=== PATIENT | male | born 1945 | race Caucasian/White ===

== ENCOUNTER 2017-06-23 09:46 | Inpatient (IN) | payer MEDICARE, MEDICAID ==
[~2017-06-23] VITALS: Ht 175.3 cm; Wt 77.1 kg
--- NOTE | 2017-06-23 09:50 | Emergency Room Report ---
History of Present Illness General Chief Complaint: Shortness of breath Source: EMS Present Illness HPI Patient is a 71-year-old male brought in by EMS after increased difficulty breathing. Patient prior history of schizophrenia as well as COPD. Patient was noted to have decreased oxygen saturation at his facility. The patient's POLST had no code status. Patient was noted to have moderate difficulty breathing. History is markedly limited by patient's mental status. Allergies: Coded Allergies: CHLORPROMAZINE (Verified Allergy, Unknown, 06/23/17) ERYTHROMYCIN BASE (Verified Allergy, Unknown, 06/23/17) Uncoded Allergies: TAPE (Allergy, Unknown, 06/23/17) Patient History Reviewed Nursing Documentation: PMH: Agreed, PSxH: Agreed Review of Systems All Other Systems: limited - by mental status Physical Exam Vital Signs Date Time Temp Pulse Resp B/P (MAP) Pulse Ox O2 Delivery O2 Flow Rate FiO2 06/23/17 09:39 109 22 100/53 97 Nasal Cannula 2.0 General Appearance: alert, moderate distress, Chronically Ill Eyes: bilateral eye PERRL Neck: limited range of motion Respiratory: accessory muscle use, rhonchi Cardiovascular #1: no edema, tachycardia Gastrointestinal: normal bowel sounds, soft, no mass Musculoskeletal: normal inspection, back normal Neurologic: alert, responsive Skin: normal inspection, normal color Procedures Critical Care Time Critical Care Time Patient had a critical medical condition which untreated could potentially result in life or limb threatening injury. Total critical care time excluding procedures approximately 45 minutes. Medical Decision Making Diagnostic Impression: Primary Impression: Acute respiratory failure Additional Impressions: Sepsis HCAP (healthcare-associated pneumonia) ER Course Patient presented for shortness of breath. Differential included but was not limited to anemia, pneumonia, pneumothorax, myocardial infarction, pericardial effusion, congestive heart failure, acidosis. Patient noted have prior history of chronic schizophrenia. The patient appears to have a respiratory illness at this time. The patient was noted to have chest x-ray read by radiology with the pacemaker cardiomegaly as well as vascular congestion. The patient started on BiPAP. ABG showed evidence of CO2 retention. Patient's oxygen was subsequently decreased. Patient was noted to have some crackles consistent with pneumonia. He was started on IV fluids and IV antibiotics. Blood cultures were obtained. Dr. Den Moreau was contacted for inpatient management Labs Test 06/23/17 10:10 06/23/17 10:50 06/23/17 11:05 White Blood Count 15.1 K/UL (4.8-10.8) Red Blood Count 2.92 M/UL (4.70-6.10) Hemoglobin 9.8 G/DL (14.2-18.0) Hematocrit 30.6 % (42.0-52.0) Mean Corpuscular Volume 105 FL (80-99) Mean Corpuscular Hemoglobin 33.6 PG (27.0-31.0) Mean Corpuscular Hemoglobin Concent 32.0 G/DL (32.0-36.0) Red Cell Distribution Width 13.5 % (11.6-14.8) Platelet Count 265 K/UL (150-450) Mean Platelet Volume 6.6 FL (6.5-10.1) Neutrophils (%) (Auto) 77.7 % (45.0-75.0) Lymphocytes (%) (Auto) 10.8 % (20.0-45.0) Monocytes (%) (Auto) 9.7 % (1.0-10.0) Eosinophils (%) (Auto) 0.9 % (0.0-3.0) Basophils (%) (Auto) 0.9 % (0.0-2.0) Sodium Level 144 mEQ/L (135-145) Potassium Level 4.4 mEQ/L (3.4-4.9) Chloride Level 102 mEQ/L (98-107) Carbon Dioxide Level 31 mEQ/L (20-30) Anion Gap 11 (5-15) Blood Urea Nitrogen 16 mg/dL (7-23) Creatinine 1.0 mg/dL (0.7-1.2) Estimat Glomerular Filtration Rate > 60 mL/min (>60) Glucose Level 130 mg/dL (74-106) Lactic Acid Level 0.90 mmol/L (0.66-2.22) Calcium Level 8.7 mg/dL (8.6-10.2) Total Bilirubin 0.3 mg/dL (0.0-1.2) Aspartate Amino Transf (AST/SGOT) 11 U/L (5-40) Alanine Aminotransferase (ALT/SGPT) 6 U/L (3-41) Alkaline Phosphatase 120 U/L (40-129) Total Creatine Kinase 33 U/L (38-174) Creatine Kinase MB 0.6 NG/ML (0.0-3.6) Creatine Kinase MB Relative Index 1.8 Troponin I 0.000 ng/mL (0.000-0.056) Pro-B-Type Natriuretic Peptide 1168 pg/mL (0-125) Total Protein 7.2 g/dL (6.6-8.7) Albumin 3.0 g/dL (3.5-5.2) Globulin 4.2 g/dL Albumin/Globulin Ratio 0.7 (1.0-2.7) Urine Color Yellow Urine Appearance Clear Urine pH 5 (4.5-8.0) Urine Specific [place] 1.020 (1.005-1.035) Urine Protein 2+ (NEGATIVE) Urine Glucose (UA) Negative (NEGATIVE) Urine Ketones Negative (NEGATIVE) Urine Occult Blood 1+ (NEGATIVE) Urine Nitrite Negative (NEGATIVE) Urine Bilirubin Negative (NEGATIVE) Urine Urobilinogen 4 MG/DL (0.0-1.0) Urine Leukocyte Esterase Negative (NEGATIVE) Urine RBC 2-4 /HPF (0 - 0) Urine WBC 0-2 /HPF (0 - 0) Urine Squamous Epithelial Cells Few /LPF (NONE/OCC) Urine Bacteria Few /HPF (NONE) Urine Granular Casts 0-2 /LPF (NONE) Arterial Blood pH 7.321 (7.350-7.450) Arterial Blood Partial Pressure CO2 60.3 mmHg (35.0-45.0) Arterial Blood Partial Pressure O2 131.4 mmHg (75.0-100.0) Arterial Blood HCO3 30.4 mmol/L (22.0-26.0) Arterial Blood Oxygen Saturation 97.9 % (92.0-98.0) Arterial Blood Base Excess 3.4 Anthony Test Positive EKG Diagnostic Results Rate: normal Rhythm: NSR ST Segments: no acute changes Last Vital Signs Date Time Temp Pulse Resp B/P (MAP) Pulse Ox O2 Delivery O2 Flow Rate FiO2 06/23/17 09:39 109 22 100/53 97 Nasal Cannula 2.0 Status: unchanged Disposition: ADMITTED INPATIENT Condition: Guero Viramontes Jun 23, 2017 09:50
[2017-06-23] MEDS ORDERED: Albuterol/Ipratropium 3ml neb HHN ONE (10:00)
[2017-06-23] MEDS ORDERED: Ampicillin/Sulbactam Sod 3 GM in NS 110 ML IV SCH (10:00)
[2017-06-23] MEDS ORDERED: Vancomycin 1.5gm/D5W 250ml 250 ML IVPB ONE (10:00)
[2017-06-23] MEDS ORDERED: ATIVAN1 MG ORAL (10:06)
[2017-06-23] MEDS ORDERED: DUONEB 0.5-3(2.53 ML HHN (10:06)
[2017-06-23] MEDS ORDERED: GERI-LANTA LIQ355 ML PO (10:06)
[2017-06-23] MEDS ORDERED: MILK OF MA400 MG/51 ORAL (10:06)
[2017-06-23] MEDS ORDERED: MULTIVITAMINS1 EAC2 ORAL (10:06)
[2017-06-23] MEDS ORDERED: FLEET ENEMA133 ML RECTAL (10:06)
[2017-06-23] MEDS ORDERED: LOVENOX10 M4 SUBQ (10:06)
[2017-06-23] MEDS ORDERED: ACETYLCYST200 MG/1 M HHN (10:06)
[2017-06-23] MEDS ORDERED: LACTULOSE20 GM/301 ORAL (10:06)
[2017-06-23] MEDS ORDERED: LEVETIRACETAM500 MG ORAL (10:06)
[2017-06-23] MEDS ORDERED: DEPAKENE250 MG/5 M PO (10:06)
[2017-06-23] MEDS ORDERED: COLACE100 MG ORAL (10:06)
[2017-06-23] MEDS ORDERED: MIDODRINE HCL5 MG ORAL (10:06)
[2017-06-23] MEDS ORDERED: DULCOLAX10 MG RC (10:06)
[2017-06-23 10:10] VITALS: BP 103/39
[2017-06-23] MEDS ORDERED: TEGRETOL200 MG PO (10:13)
[2017-06-23] MEDS ORDERED: QUETIAPINE FUM200 MG ORAL (10:13)
[2017-06-23] MEDS ORDERED: ZOFRAN 4 MG4 MG/2 ML IV (10:13)
[2017-06-23] MEDS ORDERED: ZYPREXA5 MG ORAL (10:13)
[2017-06-23] MEDS ORDERED: VITAMIN C500 M1 ORAL (10:13)
[2017-06-23] MEDS ORDERED: PROTONIX40 MG ORAL (10:13)
[2017-06-23] MEDS ORDERED: TYLENOL EXTRA500 MG ORAL (10:13)
[2017-06-23] MEDS ORDERED: Unasyn 3gm Inj ONE (10:16)
[2017-06-23 10:34] LABS: BASOPHILS % (AUTO) 0.9 % (0.0-2.0); EOSINOPHILS % (AUTO) 0.9 % (0.0-3.0); HEMATOCRIT 30.6 % (42.0-52.0); HEMOGLOBIN 9.8 G/DL (14.2-18.0); LYMPHOCYTES % (AUTO) 10.8 % (20.0-45.0); MEAN CORPUSCULAR VOLUME 105 FL (80-99); MONOCYTES % (AUTO) 9.7 % (1.0-10.0); NEUTROPHILS % (AUTO) 77.7 % (45.0-75.0); PLATELET COUNT 265 K/UL (150-450); RED BLOOD COUNT 2.92 M/UL (4.70-6.10); RED CELL DISTRIBUTION WIDTH 13.5 % (11.6-14.8); WHITE BLOOD COUNT 15.1 K/UL (4.8-10.8)
[2017-06-23 10:40] LABS: ALANINE AMINOTRANSFERASE 6 U/L (3-41); ALBUMIN/GLOBULIN RATIO 0.7 (1.0-2.7); ALKALINE PHOSPHATASE 120 U/L (40-129); ANION GAP 11 (5-15); ASPARTATE AMINO TRANSFERASE 11 U/L (5-40); BILIRUBIN,TOTAL 0.3 mg/dL (0.0-1.2); BLOOD UREA NITROGEN 16 mg/dL (7-23); CARBON DIOXIDE 31 mEQ/L (20-30); CHLORIDE 102 mEQ/L (98-107); CREATINE KINASE 33 U/L (38-174); POTASSIUM 4.4 mEQ/L (3.4-4.9); SODIUM 144 mEQ/L (135-145)
--- NOTE | 2017-06-23 10:44 | Diagnostic Imaging Report ---
Indication: Shortness of breath Technique: XRAY CHEST 1 V Comparison: None Findings: Cardiac silhouette is prominent. There is a left chest pacemaker. There is central pulmonary vascular congestion. Mild interstitial probable edema is noted. There is atelectasis in the lung bases. IVC filter is present. Degenerative changes of the spine are seen. Impression: Cardiomegaly with central pulmonary vascular congestion and mild interstitial probable edema. Bilateral lung base atelectasis. Clinical correlation/followup recommended. Apparent retrocardiac lucency. Differential considerations would include a hiatal hernia, scarring or cystic/bullous changes in the left base. Further evaluation/followup recommended.
[2017-06-23 11:03] LABS: CALCIUM 8.7 mg/dL (8.6-10.2)
[2017-06-23 11:07] LABS: CKMB 0.6 NG/ML (0.0-3.6)
[2017-06-23 11:19] LABS: APPEARANCE,URINE CLEAR; BILIRUBIN, URINE NEGATIVE (NEGATIVE); GLUCOSE, URINE (UA) NEGATIVE (NEGATIVE); KETONES,URINE NEGATIVE (NEGATIVE); LEUKOCYTE ESTERASE ,URINE NEGATIVE (NEGATIVE); NITRITE,URINE NEGATIVE (NEGATIVE); PH,URINE 5 (4.5-8.0); PROTEIN,URINE 2+ (NEGATIVE); UROBILINOGEN,URINE 4 MG/DL (0.0-1.0)
[2017-06-23 11:40] LABS: COLOR,URINE YELLOW
[2017-06-23 12:43] VITALS: BP 122/69
--- NOTE | 2017-06-23 13:04 | Infectious Diseases Prog Note ---
Assessment/Plan Problems: (1) HCAP (healthcare-associated pneumonia) Assessment & Plan: will start vancomycin, and continue zosyn, send sputum culture and monitor CXR (2) Acute respiratory failure Assessment & Plan: due to pneumonia, continu vancomycin and zosyn monitor ABG, and CXR, taper steroids (3) UTI (urinary tract infection) Assessment & Plan: will send urine culture, and continue zosyn empirically (4) Sepsis Assessment & Plan: due to the above, continue wide spectrum antibiotics pending culture results Subjective Allergies: Coded Allergies: CHLORPROMAZINE (Verified Allergy, Unknown, 06/23/17) ERYTHROMYCIN BASE (Verified Allergy, Unknown, 06/23/17) Uncoded Allergies: TAPE (Allergy, Unknown, 06/23/17) Objective Vital Signs Last 24 Hour Vital Signs Date Time Temp Pulse Resp B/P (MAP) Pulse Ox O2 Delivery O2 Flow Rate FiO2 06/23/17 12:43 97.8 92 22 122/69 93 Bi-pap 45 06/23/17 12:40 89 36 91 Facial 50 06/23/17 11:41 2.0 30 06/23/17 10:25 93 28 100 Bi-pap 50 06/23/17 10:15 97 28 100 Facial 50 06/23/17 10:15 50 06/23/17 10:15 98 28 93 Bi-pap 50 06/23/17 10:15 98 28 Bi-pap 50 06/23/17 10:10 94 26 Bi-pap 50 06/23/17 10:10 50 06/23/17 10:10 97.7 93 22 103/39 100 Bi-pap 50 06/23/17 09:39 109 22 100/53 97 Nasal Cannula 2.0 Height (Feet): 5 Height (Inches): 11.00 Weight (Pounds): 180 Laboratory Tests Test 06/23/17 10:10 06/23/17 10:50 06/23/17 11:05 White Blood Count 15.1 K/UL (4.8-10.8) H Red Blood Count 2.92 M/UL (4.70-6.10) L Hemoglobin 9.8 G/DL (14.2-18.0) L Hematocrit 30.6 % (42.0-52.0) L Mean Corpuscular Volume 105 FL (80-99) H Mean Corpuscular Hemoglobin 33.6 PG (27.0-31.0) H Mean Corpuscular Hemoglobin Concent 32.0 G/DL (32.0-36.0) Red Cell Distribution Width 13.5 % (11.6-14.8) Platelet Count 265 K/UL (150-450) Mean Platelet Volume 6.6 FL (6.5-10.1) Neutrophils (%) (Auto) 77.7 % (45.0-75.0) H Lymphocytes (%) (Auto) 10.8 % (20.0-45.0) L Monocytes (%) (Auto) 9.7 % (1.0-10.0) Eosinophils (%) (Auto) 0.9 % (0.0-3.0) Basophils (%) (Auto) 0.9 % (0.0-2.0) Sodium Level 144 mEQ/L (135-145) Potassium Level 4.4 mEQ/L (3.4-4.9) Chloride Level 102 mEQ/L (98-107) Carbon Dioxide Level 31 mEQ/L (20-30) H Anion Gap 11 (5-15) Blood Urea Nitrogen 16 mg/dL (7-23) Creatinine 1.0 mg/dL (0.7-1.2) Estimat Glomerular Filtration Rate > 60 mL/min (>60) Glucose Level 130 mg/dL (74-106) H Lactic Acid Level 0.90 mmol/L (0.66-2.22) Calcium Level 8.7 mg/dL (8.6-10.2) Total Bilirubin 0.3 mg/dL (0.0-1.2) Aspartate Amino Transf (AST/SGOT) 11 U/L (5-40) Alanine Aminotransferase (ALT/SGPT) 6 U/L (3-41) Alkaline Phosphatase 120 U/L (40-129) Total Creatine Kinase 33 U/L (38-174) L Creatine Kinase MB 0.6 NG/ML (0.0-3.6) Creatine Kinase MB Relative Index 1.8 Troponin I 0.000 ng/mL (0.000-0.056) Pro-B-Type Natriuretic Peptide 1168 pg/mL (0-125) H Total Protein 7.2 g/dL (6.6-8.7) Albumin 3.0 g/dL (3.5-5.2) L Globulin 4.2 g/dL Albumin/Globulin Ratio 0.7 (1.0-2.7) L Urine Color Yellow Urine Appearance Clear Urine pH 5 (4.5-8.0) Urine Specific [place] 1.020 (1.005-1.035) Urine Protein 2+ (NEGATIVE) H Urine Glucose (UA) Negative (NEGATIVE) Urine Ketones Negative (NEGATIVE) Urine Occult Blood 1+ (NEGATIVE) H Urine Nitrite Negative (NEGATIVE) Urine Bilirubin Negative (NEGATIVE) Urine Urobilinogen 4 MG/DL (0.0-1.0) H Urine Leukocyte Esterase Negative (NEGATIVE) Urine RBC 2-4 /HPF (0 - 0) H Urine WBC 0-2 /HPF (0 - 0) Urine Squamous Epithelial Cells Few /LPF (NONE/OCC) Urine Bacteria Few /HPF (NONE) Urine Granular Casts 0-2 /LPF (NONE) H Arterial Blood pH 7.321 (7.350-7.450) Arterial Blood Partial Pressure CO2 60.3 mmHg (35.0-45.0) *H Arterial Blood Partial Pressure O2 131.4 mmHg (75.0-100.0) H Arterial Blood HCO3 30.4 mmol/L (22.0-26.0) H Arterial Blood Oxygen Saturation 97.9 % (92.0-98.0) Arterial Blood Base Excess 3.4 Anthony Test Positive Current Medications Medications (Trade) Dose Ordered Sig/Karen Route PRN Reason Start Time Stop Time Status Last Admin Dose Admin Albuterol/ Ipratropium (DuoNeb 0.5-3(2.5)mg/3ml) 3 ml EVERY 4 HOURS PRN HHN dyspnea 06/23/17 12:30 06/28/17 12:29 UNV Ampicillin Sodium/ Sulbactam Sodium 3 gm/Sodium Chloride 110 ml @ 220 mls/hr Q6H IV 06/23/17 10:00 06/24/17 09:59 06/23/17 10:51 Carbamazepine (TEGretol) 200 mg FOUR TIMES A DAY ORAL 06/23/17 13:00 07/23/17 12:59 UNV Dextrose (Dextrose 50%) STAT PRN IV Hypoglycemia 06/23/17 12:30 07/23/17 12:29 UNV Docusate Sodium (Colace) 100 mg DAILY ORAL 06/24/17 09:00 118/17 08:59 UNV Heparin Sodium (Porcine) (Heparin 5000 units/ml) 5,000 units EVERY 12 HOURS SUBQ 06/23/17 21:00 07/23/17 20:59 UNV Ketorolac Tromethamine (Toradol 30mg) 30 mg EVERY 8 HOURS PRN IV moderate pain 4-6 06/23/17 12:30 06/28/17 12:29 UNV Levetiracetam (Keppra) 500 mg TWICE A DAY ORAL 06/23/17 18:00 07/23/17 17:59 UNV Lorazepam (Ativan 2mg/ml 1ml) 0.5 mg Q4H PRN IV For Anxiety 06/23/17 12:30 06/30/17 12:29 UNV Methylprednisolone Sodium Succinate (Solu-MEDROL) 60 mg EVERY 6 HOURS IV 06/23/17 18:00 07/23/17 17:59 UNV Morphine Sulfate (Morphine Sulfate) 2 mg EVERY 4 HOURS PRN IVP severe pain 7-10 06/23/17 12:30 06/30/17 12:29 UNV Nitroglycerin (Ntg) 0.4 mg Q5M X 3 DOSES PRN SL Prn Chest Pain 06/23/17 12:30 07/23/17 12:29 UNV Olanzapine (ZyPREXA) 15 mg DAILY ORAL 06/24/17 09:00 07/24/17 08:59 UNV Ondansetron HCl (Zofran) 4 mg Q6H PRN IVP Nausea & Vomiting 06/23/17 12:30 07/23/17 12:29 UNV Piperacillin Sod/ Tazobactam Sod 2.25 gm/Dextrose 55 ml @ 110 mls/hr EVERY 8 HOURS IV 06/23/17 14:00 06/28/17 13:59 UNV Quetiapine Fumarate (SEROquel) 200 mg DAILY ORAL 06/24/17 09:00 07/24/17 08:59 UNV Temazepam (Restoril) 15 mg HSPRN PRN ORAL Insomnia 06/23/17 12:30 06/30/17 12:29 UNV Theophylline (Dane-Dur) 100 mg EVERY 12 HOURS ORAL 06/23/17 21:00 07/23/17 20:59 UNV Dafne Orourke M.D. Jun 23, 2017 13:04
[2017-06-23] MEDS ORDERED: LORazepam Inj 2mg/ml 1ml IV PRN (13:30)
[2017-06-23] MEDS ORDERED: Nitroglycerin Subl 0.4mg tab SL PRN (13:30)
[2017-06-23] MEDS ORDERED: Ketorolac 30mg Inj IV PRN (13:30)
[2017-06-23] MEDS ORDERED: Morphine Sulfate 2mg/ml Inj IVP PRN (13:30)
[2017-06-23] MEDS ORDERED: Albuterol/Ipratropium 3ml neb HHN PRN (13:30)
[2017-06-23] MEDS ORDERED: Piperacillin/Tazobactam 2.25 GM in D5W 55 ML IV SCH (14:00)
[2017-06-23] MEDS: carBAMazepine 200mg tab ORAL SCH ×3 (14:47→21:35)
[2017-06-23] MEDS: Zoysn 3.37gm in D5W 110ml IVPB SCH ×2 (15:11→23:35)
[2017-06-23 16:00] VITALS: BP 106/59
--- NOTE | 2017-06-23 16:43 | Cardiology Progress Note ---
Assessment/Plan Assessment/Plan The patient is seen and examined, full consult note will be dictated. Objective Last 24 Hour Vital Signs Date Time Temp Pulse Resp B/P (MAP) Pulse Ox O2 Delivery O2 Flow Rate FiO2 06/23/17 14:50 84 22 98 Facial 50 06/23/17 13:07 90 20 106/46 96 Bi-pap 30 06/23/17 12:43 97.8 92 22 122/69 93 Bi-pap 45 06/23/17 12:40 89 36 91 Facial 50 06/23/17 12:30 50 06/23/17 11:41 2.0 30 06/23/17 10:25 93 28 100 Bi-pap 50 06/23/17 10:15 97 28 100 Facial 50 06/23/17 10:15 50 06/23/17 10:15 98 28 93 Bi-pap 50 06/23/17 10:15 98 28 Bi-pap 50 06/23/17 10:10 94 26 Bi-pap 50 06/23/17 10:10 50 06/23/17 10:10 97.7 93 22 103/39 100 Bi-pap 50 06/23/17 09:39 109 22 100/53 97 Nasal Cannula 2.0 Intake and Output 06/23/17 06/24/17 19:00 07:00 Intake Total 1110 ml Balance 1110 ml Intake IV Total 1110 ml Laboratory Tests Test 06/23/17 10:10 06/23/17 10:50 06/23/17 11:05 White Blood Count 15.1 K/UL (4.8-10.8) H Red Blood Count 2.92 M/UL (4.70-6.10) L Hemoglobin 9.8 G/DL (14.2-18.0) L Hematocrit 30.6 % (42.0-52.0) L Mean Corpuscular Volume 105 FL (80-99) H Mean Corpuscular Hemoglobin 33.6 PG (27.0-31.0) H Mean Corpuscular Hemoglobin Concent 32.0 G/DL (32.0-36.0) Red Cell Distribution Width 13.5 % (11.6-14.8) Platelet Count 265 K/UL (150-450) Mean Platelet Volume 6.6 FL (6.5-10.1) Neutrophils (%) (Auto) 77.7 % (45.0-75.0) H Lymphocytes (%) (Auto) 10.8 % (20.0-45.0) L Monocytes (%) (Auto) 9.7 % (1.0-10.0) Eosinophils (%) (Auto) 0.9 % (0.0-3.0) Basophils (%) (Auto) 0.9 % (0.0-2.0) Sodium Level 144 mEQ/L (135-145) Potassium Level 4.4 mEQ/L (3.4-4.9) Chloride Level 102 mEQ/L (98-107) Carbon Dioxide Level 31 mEQ/L (20-30) H Anion Gap 11 (5-15) Blood Urea Nitrogen 16 mg/dL (7-23) Creatinine 1.0 mg/dL (0.7-1.2) Estimat Glomerular Filtration Rate > 60 mL/min (>60) Glucose Level 130 mg/dL (74-106) H Lactic Acid Level 0.90 mmol/L (0.66-2.22) Calcium Level 8.7 mg/dL (8.6-10.2) Total Bilirubin 0.3 mg/dL (0.0-1.2) Aspartate Amino Transf (AST/SGOT) 11 U/L (5-40) Alanine Aminotransferase (ALT/SGPT) 6 U/L (3-41) Alkaline Phosphatase 120 U/L (40-129) Total Creatine Kinase 33 U/L (38-174) L Creatine Kinase MB 0.6 NG/ML (0.0-3.6) Creatine Kinase MB Relative Index 1.8 Troponin I 0.000 ng/mL (0.000-0.056) Pro-B-Type Natriuretic Peptide 1168 pg/mL (0-125) H Total Protein 7.2 g/dL (6.6-8.7) Albumin 3.0 g/dL (3.5-5.2) L Globulin 4.2 g/dL Albumin/Globulin Ratio 0.7 (1.0-2.7) L Urine Color Yellow Urine Appearance Clear Urine pH 5 (4.5-8.0) Urine Specific [place] 1.020 (1.005-1.035) Urine Protein 2+ (NEGATIVE) H Urine Glucose (UA) Negative (NEGATIVE) Urine Ketones Negative (NEGATIVE) Urine Occult Blood 1+ (NEGATIVE) H Urine Nitrite Negative (NEGATIVE) Urine Bilirubin Negative (NEGATIVE) Urine Urobilinogen 4 MG/DL (0.0-1.0) H Urine Leukocyte Esterase Negative (NEGATIVE) Urine RBC 2-4 /HPF (0 - 0) H Urine WBC 0-2 /HPF (0 - 0) Urine Squamous Epithelial Cells Few /LPF (NONE/OCC) Urine Bacteria Few /HPF (NONE) Urine Granular Casts 0-2 /LPF (NONE) H Arterial Blood pH 7.321 (7.350-7.450) Arterial Blood Partial Pressure CO2 60.3 mmHg (35.0-45.0) *H Arterial Blood Partial Pressure O2 131.4 mmHg (75.0-100.0) H Arterial Blood HCO3 30.4 mmol/L (22.0-26.0) H Arterial Blood Oxygen Saturation 97.9 % (92.0-98.0) Arterial Blood Base Excess 3.4 Anthony Test Positive CALLUM BARON Jun 23, 2017 16:43
[2017-06-23] MEDS: Solu-MEDROL 125mg Inj IV SCH (17:43)
[2017-06-23 20:00] VITALS: BP 104/59
[2017-06-23] MEDS: Heparin 5000 units/ml inj SUBQ SCH (21:00)
[2017-06-23] MEDS: Vancomycin 1gm in D5W 275ml IVPB SCH (21:34)
[2017-06-23] MEDS: Theophylline ER 100mg ORAL SCH (21:35)
[2017-06-24 00:44] VITALS: BP 101/55
[2017-06-24] MEDS: Solu-MEDROL 125mg Inj IV SCH ×5 (01:05→23:33)
--- NOTE | 2017-06-24 03:39 | Consultation ---
DATE OF CONSULTATION: 06/23/2017 INFECTIOUS DISEASE CONSULTATION CONSULTING PHYSICIAN: Dafne Orourke M.D. REQUESTING PHYSICIAN: Den Moreau M.D. REASON FOR CONSULTATION: Sepsis, pneumonia, and urinary tract infection, recommendation for antibiotics treatment. HISTORY OF PRESENT ILLNESS: The patient is a 71-year-old male with past medical history of chronic obstructive pulmonary disease and schizophrenia, was brought in from [facility] facility for acute shortness of breath and low oxygen saturation. The patient was found to have difficulty breathing at the facility where he lives. He was sent to the emergency room at [facility] for further evaluation. The patient was found to be tachycardic with significant leukocytosis and fever and he looks ill. The patient's white count was significantly elevated suspicious for sepsis. Chest x-ray showed evidence of basilar pneumonia, so he was admitted to the hospital and started on IV antibiotics and I was consulted by the primary provider for antibiotics choice and further management. As of note, the patient is a poor historian, cannot provide any history. History was mainly obtained from the medical record. PAST MEDICAL HISTORY: Significant for chronic obstructive pulmonary disease and schizophrenia. PAST SURGICAL HISTORY: Negative. ALLERGIES: He is allergic to chlorpromazine and erythromycin base. MEDICATIONS: He received Unasyn in the emergency room and later Zosyn by the admitting physician. For the rest of his medications, please refer to MAR. SOCIAL HISTORY: He is a [facility] resident. No recent drugs, tobacco, or alcohol. FAMILY HISTORY: Unable to obtain. PHYSICAL EXAMINATION: VITAL SIGNS: Temperature 97.8, pulse 92, respirations 22, blood pressure 122/69, and saturation 93% on BiPAP with FiO2 of 45. GENERAL: A middle-aged male, cachectic, and ill appearing, on BiPAP in bed, not in acute distress. HEENT: Normocephalic and atraumatic. Pupils are reactive to light. Moist oral mucosa. No exudate. NECK: Supple. No lymphadenopathy. CARDIOVASCULAR: Regular rate and rhythm. No murmur. LUNGS: Diminished breathing sound on the bases with crackles. Poor air entry. ABDOMEN: Soft, nontender, and nondistended. Positive bowel sounds. No hepatosplenomegaly. No ascites. EXTREMITIES: No edema or cyanosis. SKIN: No rash. No hives. LABORATORY AND DIAGNOSTIC DATA: Labs showed white count of 15.1, hemoglobin 9.8. BUN 16, creatinine 1. Urinalysis showed negative leukocyte esterase, WBC 0 to 2, and granular casts. ABG showed CO2 of 60 with pH of 7.32. Imaging: Chest x-ray showed cardiomegaly with central pulmonary vascular congestion and mild interstitial edema. Bilateral lung base atelectasis. ASSESSMENT AND RECOMMENDATION: 1. Healthcare-acquired pneumonia. We will start the patient on Vancomycin. Continue Zosyn and send sputum culture and monitor chest x-ray. 2. Acute respiratory failure due to pneumonia. Continue vancomycin and Zosyn. Monitor ABG and chest x-ray. Taper steroids. 3. Urinary tract infection. We will send urine culture and continue Zosyn empirically. 4. Sepsis due to the above. Continue wide-spectrum antibiotics pending culture results. Thank you for the consult. Infectious Disease will continue to follow. Dafne Orourke M.D. DR: ADRIANNA JOB#: [id number] CC:
--- NOTE | 2017-06-24 03:39 | Consultation ---
DATE OF CONSULTATION: 06/23/2017 INFECTIOUS DISEASE CONSULTATION CONSULTING PHYSICIAN: Dafne Orourke M.D. REQUESTING PHYSICIAN: Den Moreau M.D. REASON FOR CONSULTATION: Sepsis, pneumonia, and urinary tract infection, recommendation for antibiotics treatment. HISTORY OF PRESENT ILLNESS: The patient is a 71-year-old male with past medical history of chronic obstructive pulmonary disease and schizophrenia, [facility]ness of breath and low oxygen saturation. The patient was found to have difficulty breathing at the facility where he lives. He was sent to the emergency room at [facility] for further evaluation. The patient was found to be tachycardic with significant leukocytosis and fever and he looks ill. The patient's white count was significantly elevated suspicious for sepsis. Chest x-ray showed evidence of basilar pneumonia, so he was admitted to the hospital and started on IV antibiotics and I was consulted by the primary provider for antibiotics choice and further management. As of note, the patient is a poor historian, cannot provide any history. History was mainly obtained from the medical record. PAST MEDICAL HISTORY: Significant for chronic obstructive pulmonary disease and schizophrenia. PAST SURGICAL HISTORY: Negative. ALLERGIES: He is allergic to chlorpromazine and erythromycin base. MEDICATIONS: He received Unasyn in the emergency room and later Zosyn by the admitting physician. For the rest of his medications, please refer to MAR. SOCIAL HISTORY: He is a [facility] resident. No recent drugs, tobacco, or alcohol. FAMILY HISTORY: Unable to obtain. PHYSICAL EXAMINATION: VITAL SIGNS: Temperature 97.8, pulse 92, respirations 22, blood pressure 122/69, and saturation 93% on BiPAP with FiO2 of 45. GENERAL: A middle-aged male, cachectic, and ill appearing, on BiPAP in bed, not in acute distress. HEENT: Normocephalic and atraumatic. Pupils are reactive to light. Moist oral mucosa. No exudate. NECK: Supple. No lymphadenopathy. CARDIOVASCULAR: Regular rate and rhythm. No murmur. LUNGS: Diminished breathing sound on the bases with crackles. Poor air entry. ABDOMEN: Soft, nontender, and nondistended. Positive bowel sounds. No hepatosplenomegaly. No ascites. EXTREMITIES: No edema or cyanosis. SKIN: No rash. No hives. LABORATORY AND DIAGNOSTIC DATA: Labs showed white count of 15.1, hemoglobin 9.8. BUN 16, creatinine 1. Urinalysis showed negative leukocyte esterase, WBC 0 to 2, and granular casts. ABG showed CO2 of 60 with pH of 7.32. Imaging: Chest x-ray showed cardiomegaly with central pulmonary vascular congestion and mild interstitial edema. Bilateral lung base atelectasis. ASSESSMENT AND RECOMMENDATION: 1. Healthcare-acquired pneumonia. We will start the patient on Vancomycin. Continue Zosyn and send sputum culture and monitor chest x-ray. 2. Acute respiratory failure due to pneumonia. Continue vancomycin and Zosyn. Monitor ABG and chest x-ray. Taper steroids. 3. Urinary tract infection. We will send urine culture and continue Zosyn empirically. 4. Sepsis due to the above. Continue wide-spectrum antibiotics pending culture results. Thank you for the consult. Infectious Disease will continue to follow. Dafne Orourke M.D. DR: ADRIANNA JOB#: [id number] CC:
[2017-06-24 04:00] VITALS: BP 107/66
[2017-06-24] MEDS: Zoysn 3.37gm in D5W 110ml IVPB SCH ×3 (05:07→21:49)
--- NOTE | 2017-06-24 06:30 | Consultation ---
DATE OF CONSULTATION: 06/23/2017 ADDENDUM REFERRING PHYSICIAN: Den Moreau M.D. REASON FOR CONSULTATION: Management of tachycardia. ASSESSMENT AND PLAN: 1. Sinus tachycardia, most likely secondary to sepsis as the patient is showing evidence of leukocytosis. Chest x-ray is also significant for possible bilateral pneumonia. A 2D echocardiography does not show any echocardiographic signs of heart failure. He however continue with low-dose diuretics. Further diagnostic and therapeutic decision will be based on the course of the current illness in the next few days. 2. Hypotension, most likely septic shock. The patient requires hemodynamic stability with hydration. Possible pressor if there are signs of volume overload. 3. History of heart disease. The nature of the detail of the cardiac illness in the past is not clear at this point. We will review 2D echocardiography in this patient. Preliminary echocardiography has shown normal LV systolic function with no evidence of wall motion abnormalities. I would like to thank, Dr. Moreau, for the courtesy of this consultation. David Menjivar M.D. DR: Chema JOB#: [id number] CC:
[2017-06-24 08:00] VITALS: BP 102/56
--- NOTE | 2017-06-24 08:25 | Cardiology Report ---
APPROVED REPORT EXAM: Two-dimensional and M-mode echocardiogram with Doppler and color Doppler. INDICATION Left ventricular function M-Mode DIMENSIONS IVSd0.9 (0.7-1.1cm)Left Atrium (MM)3.7 (1.6-4.0cm) LVDd4.4 (3.5-5.6cm)Aortic Root3.0 (2.0-3.7cm) PWd0.8 (0.7-1.1cm)Aortic Cusp Exc.1.6 (1.5-2.0cm) LVDs2.9 (2.5-4.0cm) PWs1.0 cm Technically limited and difficult study due to poor acoustical windows.Lack of apical windows. Normal left ventricular chamber size, systolic function and wall motion. Left ventricular ejection fraction estimated to be 60-65%. No evidence of left ventricular hypertrophy. No evidence of pericardial or pleural effusion. Focal aortic valve sclerosis with adequate cusp excursion. Normal mitral valve leaflets with normal excursion. Normal mitral annulus and aortic root. Pulmonic valve not visualized. Normal tricuspid valve structure. IVC is normal in size and collapsible with respiration. A color flow and spectral Doppler study was performed and revealed: No aortic regurgitation. No mitral regurgitation. Mild tricuspid regurgitation. Tricuspid systolic velocities suggests peak right ventricular systolic pressure of 33mmHg
[2017-06-24] MEDS ORDERED: Docusate 100mg cap ORAL SCH (09:00)
--- NOTE | 2017-06-24 09:03 | Consultation ---
DATE OF CONSULTATION: 06/23/2017 NOTE: Incomplete Dictation Consultation Report CONSULTING PHYSICIAN: David Menjivar M.D. REFERRING PHYSICIAN: Den Moreau D.O. REASON FOR CONSULTATION: Management of tachycardia. HISTORY OF PRESENT ILLNESS: The patient is a very unfortunate 71-year-old gentleman, who presents to the hospital with moderate difficulty breathing as well as decreased oxygen saturation, which occurred in the facility earlier today. The patient was brought in by EMS to [facility] [place]. Upon initial evaluation, he was found to be hypotensive with blood pressure of 100/53 mmHg. He was also tachycardic with heart rate of 109. The patient was admitted to [facility] for further evaluation and assessment of shortness of breath. Cardiology consultation was made at request of Dr. Moreau for evaluation and management of this condition. The patient is a very poor historian due to underlying schizophrenia and dementia. He is not verbally communicating at this time. PAST MEDICAL HISTORY: 1. Schizophrenia. 2. History of chronic obstructive pulmonary disease. 3. History of seizures. 4. History of cellulitis. 5. History of anemia. 6. History of chronic kidney disease. 7. History of bipolar disorder. 8. History of cardiac disease. PAST SURGICAL HISTORY: None. MEDICATIONS: List of medications, 1. Acetaminophen 500 mg q.6 hours for mild pain and temperature 100.5 degrees Fahrenheit. 2. Acetylcysteine 200 mg q.6 hours p.r.n. shortness of breath. 3. Vitamin C 500 mg daily. 4. Dulcolax 10 mg rectal p.r.n. x1 dose p.r.n. constipation. 5. Tegretol 200 mg four times daily. 6. Colace 100 mg p.o. daily. 7. Lovenox 40 mg subcutaneous daily. 8. DuoNeb 3 mL HHN q.4 hours as needed for shortness of breath. 9. Lactulose 30 mL q.6 hours. 10. Levetiracetam 500 mg twice daily. 11. Ativan 1 mg p.o. q.6 hours p.r.n. anxiety. 12. Shirley-Lanta liquid 355 mL p.o. daily. 13. Milk of magnesia 30 mL p.o. daily. 14. ProAmatine 5 mg p.o. twice daily. 15. Multivitamin one tablet daily. 16. Fleet Enema 133 mL rectal daily p.r.n. constipation. 17. Zyprexa 15 mg p.o. daily. 18. Zofran 4 mg IV q.6 hours p.r.n. nausea and vomiting. 19. Protonix 40 mg p.o. daily. 20. Seroquel 200 mg p.o. daily. 21. Valproate sodium 250 mg twice daily. SOCIAL HISTORY: Unknown if the patient ever smoked. The patient has not smoked in the past 12 months. There is no history of alcohol or illicit drug use. REVIEW OF SYSTEMS: A 12-system review cannot be done as the patient is not verbally communicating at this time. PHYSICAL EXAMINATION: VITAL SIGNS: Blood pressure 100/53 mmHg, pulse of 109, respirations 22, and O2 saturation 97% on 4 L nasal cannula. GENERAL: The patient is a chronically ill 71-year-old gentleman, in moderate distress, currently on BiPAP mask. HEENT: Atraumatic and normocephalic. ENT, pupils are equal, round, and reactive to light and accommodation. Pale conjunctiva. NECK: JVP cannot be assessed. No carotid bruit. Carotid upstrokes 2+ bilaterally. LUNGS: Bilateral rhonchi is seen. There is use of accessory muscle of respiration. CVS: Normal S1, S2. Tachycardic. I cannot appreciate any murmurs, gallops, or rubs. PMI is at fourth intercostal space in the midclavicular line. ABDOMEN: Soft, nontender, and nondistended. No hepatosplenomegaly. Positive bowel sounds. EXTREMITIES: No evidence of edema, clubbing, or cyanosis. LABORATORY AND DIAGNOSTIC DATA: Laboratory findings, WBC 15.1, hemoglobin 9.8, hematocrit 30.6, and platelet count is 265,000. Sodium is 144, potassium 4.4, chloride 102, bicarbonate 31, BUN of 16, creatinine 1.0, glucose is 130, and calcium is 8.7. Troponin I was 0. ProBNP was 1168. Blood gas shows a pH of 7.32, pCO2 of 60.3, pO2 of 131.4, bicarbonate of 30.4, and O2 saturation 97.9. A 12-lead electrocardiogram showed sinus tachycardia with no ST and T-wave abnormality. A 2D echocardiography report shows normal LV systolic function with LVEF over 60% to 65%. Mild tricuspid regurgitation. Right ventricular systolic pressure measured at 32 mmHg. Chest x-ray shows cardiomegaly with central pulmonary vascular congestion, mild interstitial edema. ASSESSMENT AND PLAN: 1. Sinus tachycardia, most likely secondary to sepsis as the patient is showing evidence of leukocytosis. Chest x-ray is also significant for possible bilateral pneumonia. A 2D echocardiography does not show any echocardiographic signs of heart failure. He however continue with low-dose diuretics. Further diagnostic and therapeutic decision will be based on the course of the current illness in the next few days. 2. Hypotension, most likely septic shock. The patient requires hemodynamic stability with hydration. Possible pressor if there are signs of volume overload. 3. History of heart disease. The nature of the detail of the cardiac illness in the past is not clear at this point. We will review 2D echocardiography in this patient. Preliminary echocardiography has shown normal LV systolic function with no evidence of wall motion abnormalities. I would like to thank, Dr. Moreau, for the courtesy of this consultation. David Menjivar M.D. DR: Chema JOB#: [id number] CC: LUCIA
[2017-06-24] MEDS: Theophylline ER 100mg ORAL SCH ×2 (09:08→21:48)
[2017-06-24] MEDS: carBAMazepine 200mg tab ORAL SCH ×4 (09:08→21:48)
[2017-06-24] MEDS: QUEtiapine 200mg tab ORAL SCH (09:09)
[2017-06-24] MEDS: Heparin 5000 units/ml inj SUBQ SCH ×2 (09:11→21:49)
--- NOTE | 2017-06-24 11:35 | Consultation ---
History of Present Illness General Date patient seen: Jun 23, 2017 Chief Complaint: Upper Respiratory Illness Referring physician: Dr. Moreau Reason for Consultation: Respiratory failure Present Illness HPI 71-year-old male with history of schizophrenia and COPD brought in by EMS after increased difficulty breathing. Patient was noted to have decreased oxygen saturation at his facility. He had moderate difficulty breathing. Pt was diagnosed to have respiratory failure and was put on BIPAP and transferred to [facility]. Allergies: Coded Allergies: CHLORPROMAZINE (Verified Allergy, Unknown, 06/23/17) ERYTHROMYCIN BASE (Verified Allergy, Unknown, 06/23/17) Uncoded Allergies: TAPE (Allergy, Unknown, 06/23/17) Medication History Scheduled Ascorbic Acid* (Vitamin C*), 500 MG ORAL DAILY, (Reported) Carbamazepine (Tegretol*), 200 MG PO FOUR TIMES A DAY, (Reported) Docusate Sodium* (Colace*), 100 MG ORAL DAILY, (Reported) Enoxaparin* (Lovenox*), 40 MG SUBQ DAILY, (Reported) Lactulose (Lactulose*), 30 ML ORAL Q6HR, (Reported) Levetiracetam* (Levetiracetam*), 500 MG ORAL TWICE A DAY, (Reported) Magnesium Hydroxide* (Milk Of Magnesia*), 30 ML ORAL DAILY, (Reported) Midodrine* (Proamatine*), 5 MG ORAL BID, (Reported) Multivitamins* (Multivitamins*), 1 TAB ORAL DAILY, (Reported) Na Phos,M-B/Na Phos,Di-Ba* (Fleet Enema*), 133 ML RECTAL DAILY, (Reported) Olanzapine* (Zyprexa*), 15 MG ORAL DAILY, (Reported) Pantoprazole* (Protonix*), 40 MG ORAL DAILY, (Reported) Quetiapine Fumarate* (Seroquel*), 200 MG ORAL DAILY, (Reported) Valproate Sodium (Depakene), 250 MG PO BID, (Reported) Scheduled PRN Acetaminophen* (Tylenol Extra Strength*), 500 MG ORAL Q6H PRN for Mild Pain/ Temp > 100.5, (Reported) Acetylcysteine* (Acetylcysteine*), 200 MG HHN Q6H PRN for Shortness of breath, ( Reported) Lorazepam* (Ativan*), 1 MG ORAL Q6HR PRN for For Anxiety, (Reported) Ondansetron* (Zofran*), 4 MG IV Q6H PRN for Nausea & Vomiting, (Reported) Miscellaneous Medications Bisacodyl (Dulcolax), 10 MG RC, (Reported) Ipratropium/Albuterol Sulfate (DuoNeb 0.5-3(2.5)mg/3ml), 3 ML HHN, (Reported) Mag Hydrox/Al Hydrox/Simeth (Shirley-Lanta Liquid), 355 ML PO, (Reported) Patient History Healthcare decision maker Charo Gary (Guardian) Resuscitation status Full Code Advanced Directive on File No Past Medical/Surgical History Past Medical/Surgical History: (1) Schizophrenia (2) Limited mobility (3) penitentiary resident (4) History of pacemaker Review of Systems All Other Systems: negative except mentioned in HPI Physical Exam General Appearance: cachetic Lines, tubes and drains: peripheral HEENT: normocephalic, atraumatic Neck: non-tender, normal alignment Respiratory/Chest: chest wall non-tender, rhonchi - bilaterally Breasts: no masses Cardiovascular/Chest: normal peripheral pulses, normal rate Abdomen: normal bowel sounds, non tender Genitourinary/Rectal: normal genital exam, normal rectal exam Extremities: normal range of motion, non-tender Skin Exam: normal pigmentation 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 normal Last 24 Hour Vital Signs Date Time Temp Pulse Resp B/P (MAP) Pulse Ox O2 Delivery O2 Flow Rate FiO2 06/24/17 09:25 94 06/24/17 08:00 60 06/24/17 08:00 97.4 60 17 102/56 93 Bi-pap 60 06/24/17 06:40 60 18 100 Full Face 60 06/24/17 05:15 68 21 98 Full Face 60 06/24/17 04:00 96.5 85 23 107/66 98 Bi-pap 60 06/24/17 04:00 74 06/24/17 04:00 60 06/24/17 03:35 71 20 100 Facial 60 06/24/17 01:38 64 21 99 Facial 60 06/24/17 00:44 98.0 66 31 101/55 98 Bi-pap 60 06/23/17 23:20 87 24 98 Bi-pap 60 06/23/17 23:20 87 20 98 Bi-pap 60 06/23/17 23:19 85 20 98 Facial 60 06/23/17 21:00 82 24 98 Facial 60 06/23/17 20:00 98.0 77 24 104/59 97 Bi-pap 50 06/23/17 20:00 76 06/23/17 20:00 60 06/23/17 19:05 78 25 97 Facial 60 06/23/17 16:50 81 25 97 Facial 50 06/23/17 16:00 98.0 83 22 106/59 95 Bi-pap 50 06/23/17 16:00 50 06/23/17 15:52 88 06/23/17 14:50 84 22 98 Facial 50 06/23/17 13:07 90 20 106/46 96 Bi-pap 30 06/23/17 12:48 90 06/23/17 12:43 97.8 92 22 122/69 93 Bi-pap 45 06/23/17 12:40 89 36 91 Facial 50 06/23/17 12:30 50 06/23/17 11:41 2.0 30 Height (Feet): 5 Height (Inches): 11.00 Weight (Pounds): 180 Medications Current Medications Medications (Trade) Dose Ordered Sig/Karen Route PRN Reason Start Time Stop Time Status Last Admin Dose Admin Albuterol/ Ipratropium (DuoNeb 0.5-3(2.5)mg/3ml) 3 ml Q4H PRN HHN dyspnea 06/23/17 13:30 06/28/17 13:29 Carbamazepine (TEGretol) 200 mg FOUR TIMES A DAY ORAL 06/23/17 13:00 07/23/17 12:59 06/24/17 09:08 Dextrose (Dextrose 50%) STAT PRN IV Hypoglycemia 06/23/17 14:00 07/23/17 13:59 Docusate Sodium (Colace) 100 mg DAILY ORAL 06/24/17 09:00 07/24/17 08:59 06/24/17 09:08 Heparin Sodium (Porcine) (Heparin 5000 units/ml) 5,000 units EVERY 12 HOURS SUBQ 06/23/17 21:00 07/23/17 20:59 06/24/17 09:11 Ketorolac Tromethamine (Toradol 30mg) 30 mg Q8H PRN IV moderate pain 4-6 06/23/17 13:30 06/28/17 13:29 Levetiracetam (Keppra) 500 mg Q12HR ORAL 06/23/17 21:00 07/23/17 20:59 06/24/17 09:08 Lorazepam (Ativan 2mg/ml 1ml) 0.5 mg Q4H PRN IV For Anxiety 06/23/17 13:30 06/30/17 13:29 Methylprednisolone Sodium Succinate (Solu-MEDROL) 60 mg Q6H IV 06/23/17 18:00 07/23/17 17:59 06/24/17 05:07 Morphine Sulfate (Morphine Sulfate) 2 mg Q4H PRN IVP severe pain 7-10 06/23/17 13:30 06/30/17 13:29 Nitroglycerin (Ntg) 0.4 mg Q5M X 3 DOSES PRN SL Prn Chest Pain 06/23/17 13:30 07/23/17 13:29 Olanzapine (ZyPREXA) 15 mg DAILY ORAL 06/24/17 09:00 07/24/17 08:59 06/24/17 09:08 Ondansetron HCl (Zofran) 4 mg Q6H PRN IVP Nausea & Vomiting 06/23/17 13:30 07/23/17 13:29 Piperacillin Sod/ Tazobactam Sod 3.375 gm/Dextrose 110 ml @ 27.5 mls/hr EVERY 8 HOURS IVPB 06/23/17 15:00 06/28/17 14:59 06/24/17 05:07 Quetiapine Fumarate (SEROquel) 200 mg DAILY ORAL 06/24/17 09:00 07/24/17 08:59 06/24/17 09:09 Temazepam (Restoril) 15 mg HSPRN PRN ORAL Insomnia 06/23/17 21:00 06/30/17 20:59 Theophylline (Dane-Dur) 100 mg EVERY 12 HOURS ORAL 06/23/17 21:00 07/23/17 20:59 06/24/17 09:08 Vancomycin HCl (Vanco rx to dose) 1 ea DAILY PRN MISC Per rx protocol 06/23/17 13:15 07/23/17 13:14 Vancomycin HCl 1 gm/Dextrose 275 ml @ 183.708 mls/hr Q12H IVPB 06/23/17 23:00 06/28/17 22:59 06/23/17 21:34 Assessment/Plan Problem List: (1) Acute respiratory failure ICD Codes: J96.00 - Acute respiratory failure, unspecified whether with hypoxia or hypercapnia SNOMED: 42330715 (2) Sepsis ICD Codes: A41.9 - Sepsis, unspecified organism SNOMED: 22220430 (3) UTI (urinary tract infection) ICD Codes: N39.0 - Urinary tract infection, site not specified SNOMED: 59206263 (4) Schizophrenia ICD Codes: F20.9 - Schizophrenia, unspecified SNOMED: 27763636 (5) Limited mobility ICD Codes: Z74.09 - Other reduced mobility SNOMED: 3134850 (6) History of pacemaker ICD Codes: Z95.0 - Presence of cardiac pacemaker SNOMED: 173195430 (7) penitentiary resident ICD Codes: Z59.3 - Problems related to living in residential institution SNOMED: 765558484 Assessment/Plan titrate fio2 respiratory treatment chest pt IV abx check echo dvt prophylaxis f/u on CXRpt/ot GWEN MARTE Jun 24, 2017 11:35
--- NOTE | 2017-06-24 11:35 | Consultation ---
History of Present Illness General Date patient seen: Jun 23, 2017 Chief Complaint: Upper Respiratory Illness Referring physician: Dr. Moreau Reason for Consultation: Respiratory failure Present Illness HPI 71-year-old male with history of schizophrenia and COPD brought in by EMS after increased difficulty breathing. Patient was noted to have decreased oxygen saturation at his facility. He had moderate difficulty breathing. Pt was diagnosed to have respiratory failure and was put on BIPAP and transferred to [facility]. Allergies: Coded Allergies: CHLORPROMAZINE (Verified Allergy, Unknown, 06/23/17) ERYTHROMYCIN BASE (Verified Allergy, Unknown, 06/23/17) Uncoded Allergies: TAPE (Allergy, Unknown, 06/23/17) Medication History Scheduled Ascorbic Acid* (Vitamin C*), 500 MG ORAL DAILY, (Reported) Carbamazepine (Tegretol*), 200 MG PO FOUR TIMES A DAY, (Reported) Docusate Sodium* (Colace*), 100 MG ORAL DAILY, (Reported) Enoxaparin* (Lovenox*), 40 MG SUBQ DAILY, (Reported) Lactulose (Lactulose*), 30 ML ORAL Q6HR, (Reported) Levetiracetam* (Levetiracetam*), 500 MG ORAL TWICE A DAY, (Reported) Magnesium Hydroxide* (Milk Of Magnesia*), 30 ML ORAL DAILY, (Reported) Midodrine* (Proamatine*), 5 MG ORAL BID, (Reported) Multivitamins* (Multivitamins*), 1 TAB ORAL DAILY, (Reported) Na Phos,M-B/Na Phos,Di-Ba* (Fleet Enema*), 133 ML RECTAL DAILY, (Reported) Olanzapine* (Zyprexa*), 15 MG ORAL DAILY, (Reported) Pantoprazole* (Protonix*), 40 MG ORAL DAILY, (Reported) Quetiapine Fumarate* (Seroquel*), 200 MG ORAL DAILY, (Reported) Valproate Sodium (Depakene), 250 MG PO BID, (Reported) Scheduled PRN Acetaminophen* (Tylenol Extra Strength*), 500 MG ORAL Q6H PRN for Mild Pain/ Temp > 100.5, (Reported) Acetylcysteine* (Acetylcysteine*), 200 MG HHN Q6H PRN for Shortness of breath, ( Reported) Lorazepam* (Ativan*), 1 MG ORAL Q6HR PRN for For Anxiety, (Reported) Ondansetron* (Zofran*), 4 MG IV Q6H PRN for Nausea & Vomiting, (Reported) Miscellaneous Medications Bisacodyl (Dulcolax), 10 MG RC, (Reported) Ipratropium/Albuterol Sulfate (DuoNeb 0.5-3(2.5)mg/3ml), 3 ML HHN, (Reported) Mag Hydrox/Al Hydrox/Simeth (Shirley-Lanta Liquid), 355 ML PO, (Reported) Patient History Healthcare decision maker Charo Gary (Guardian) Resuscitation status Full Code Advanced Directive on File No Past Medical/Surgical History Past Medical/Surgical History: (1) Schizophrenia (2) Limited mobility (3) penitentiary resident (4) History of pacemaker Review of Systems All Other Systems: negative except mentioned in HPI Physical Exam General Appearance: cachetic Lines, tubes and drains: peripheral HEENT: normocephalic, atraumatic Neck: non-tender, normal alignment Respiratory/Chest: chest wall non-tender, rhonchi - bilaterally Breasts: no masses Cardiovascular/Chest: normal peripheral pulses, normal rate Abdomen: normal bowel sounds, non tender Genitourinary/Rectal: normal genital exam, normal rectal exam Extremities: normal range of motion, non-tender Skin Exam: normal pigmentation 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: 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 II-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 grossly normal Last 24 Hour Vital Signs Date Time Temp Pulse Resp B/P (MAP) Pulse Ox O2 Delivery O2 Flow Rate FiO2 06/24/17 09:25 94 06/24/17 08:00 60 06/24/17 08:00 97.4 60 17 102/56 93 Bi-pap 60 06/24/17 06:40 60 18 100 Full Face 60 06/24/17 05:15 68 21 98 Full Face 60 06/24/17 04:00 96.5 85 23 107/66 98 Bi-pap 60 06/24/17 04:00 74 06/24/17 04:00 60 06/24/17 03:35 71 20 100 Facial 60 06/24/17 01:38 64 21 99 Facial 60 06/24/17 00:44 98.0 66 31 101/55 98 Bi-pap 60 06/23/17 23:20 87 24 98 Bi-pap 60 06/23/17 23:20 87 20 98 Bi-pap 60 06/23/17 23:19 85 20 98 Facial 60 06/23/17 21:00 82 24 98 Facial 60 06/23/17 20:00 98.0 77 24 104/59 97 Bi-pap 50 06/23/17 20:00 76 06/23/17 20:00 60 06/23/17 19:05 78 25 97 Facial 60 06/23/17 16:50 81 25 97 Facial 50 06/23/17 16:00 98.0 83 22 106/59 95 Bi-pap 50 06/23/17 16:00 50 06/23/17 15:52 88 06/23/17 14:50 84 22 98 Facial 50 06/23/17 13:07 90 20 106/46 96 Bi-pap 30 06/23/17 12:48 90 06/23/17 12:43 97.8 92 22 122/69 93 Bi-pap 45 06/23/17 12:40 89 36 91 Facial 50 06/23/17 12:30 50 06/23/17 11:41 2.0 30 Height (Feet): 5 Height (Inches): 11.00 Weight (Pounds): 180 Medications Current Medications Medications (Trade) Dose Ordered Sig/Karen Route PRN Reason Start Time Stop Time Status Last Admin Dose Admin Albuterol/ Ipratropium (DuoNeb 0.5-3(2.5)mg/3ml) 3 ml Q4H PRN HHN dyspnea 06/23/17 13:30 06/28/17 13:29 Carbamazepine (TEGretol) 200 mg FOUR TIMES A DAY ORAL 06/23/17 13:00 07/23/17 12:59 06/24/17 09:08 Dextrose (Dextrose 50%) STAT PRN IV Hypoglycemia 06/23/17 14:00 07/23/17 13:59 Docusate Sodium (Colace) 100 mg DAILY ORAL 06/24/17 09:00 07/24/17 08:59 06/24/17 09:08 Heparin Sodium (Porcine) (Heparin 5000 units/ml) 5,000 units EVERY 12 HOURS SUBQ 06/23/17 21:00 07/23/17 20:59 06/24/17 09:11 Ketorolac Tromethamine (Toradol 30mg) 30 mg Q8H PRN IV moderate pain 4-6 06/23/17 13:30 06/28/17 13:29 Levetiracetam (Keppra) 500 mg Q12HR ORAL 06/23/17 21:00 07/23/17 20:59 06/24/17 09:08 Lorazepam (Ativan 2mg/ml 1ml) 0.5 mg Q4H PRN IV For Anxiety 06/23/17 13:30 06/30/17 13:29 Methylprednisolone Sodium Succinate (Solu-MEDROL) 60 mg Q6H IV 06/23/17 18:00 07/23/17 17:59 06/24/17 05:07 Morphine Sulfate (Morphine Sulfate) 2 mg Q4H PRN IVP severe pain 7-10 06/23/17 13:30 06/30/17 13:29 Nitroglycerin (Ntg) 0.4 mg Q5M X 3 DOSES PRN SL Prn Chest Pain 06/23/17 13:30 07/23/17 13:29 Olanzapine (ZyPREXA) 15 mg DAILY ORAL 06/24/17 09:00 07/24/17 08:59 06/24/17 09:08 Ondansetron HCl (Zofran) 4 mg Q6H PRN IVP Nausea & Vomiting 06/23/17 13:30 07/23/17 13:29 Piperacillin Sod/ Tazobactam Sod 3.375 gm/Dextrose 110 ml @ 27.5 mls/hr EVERY 8 HOURS IVPB 06/23/17 15:00 06/28/17 14:59 06/24/17 05:07 Quetiapine Fumarate (SEROquel) 200 mg DAILY ORAL 06/24/17 09:00 07/24/17 08:59 06/24/17 09:09 Temazepam (Restoril) 15 mg HSPRN PRN ORAL Insomnia 06/23/17 21:00 06/30/17 20:59 Theophylline (Dane-Dur) 100 mg EVERY 12 HOURS ORAL 06/23/17 21:00 07/23/17 20:59 06/24/17 09:08 Vancomycin HCl (Vanco rx to dose) 1 ea DAILY PRN MISC Per rx protocol 06/23/17 13:15 07/23/17 13:14 Vancomycin HCl 1 gm/Dextrose 275 ml @ 183.708 mls/hr Q12H IVPB 06/23/17 23:00 06/28/17 22:59 06/23/17 21:34 Assessment/Plan Problem List: (1) Acute respiratory failure ICD Codes: J96.00 - Acute respiratory failure, unspecified whether with hypoxia or hypercapnia SNOMED: 53785223 (2) Sepsis ICD Codes: A41.9 - Sepsis, unspecified organism SNOMED: 99751796 (3) UTI (urinary tract infection) ICD Codes: N39.0 - Urinary tract infection, site not specified SNOMED: 29079751 (4) Schizophrenia ICD Codes: F20.9 - Schizophrenia, unspecified SNOMED: 87507950 (5) Limited mobility ICD Codes: Z74.09 - Other reduced mobility SNOMED: 7648209 (6) History of pacemaker ICD Codes: Z95.0 - Presence of cardiac pacemaker SNOMED: 879569290 (7) penitentiary resident ICD Codes: Z59.3 - Problems related to living in residential institution SNOMED: 521029886 Assessment/Plan titrate fio2 respiratory treatment chest pt IV abx check echo dvt prophylaxis f/u on CXRpt/ot GWEN MARTE Jun 24, 2017 11:35
--- NOTE | 2017-06-24 11:35 | Consultation ---
History of Present Illness General Date patient seen: Jun 23, 2017 Chief Complaint: Upper Respiratory Illness Referring physician: Dr. Moreau Reason for Consultation: Respiratory failure Present Illness HPI 71-year-old male with history of schizophrenia and COPD brought in by EMS after increased difficulty breathing. Patient was noted to have decreased oxygen saturation at his facility. He had moderate difficulty breathing. Pt was diagnosed to have respiratory failure and was put on BIPAP and transferred to [facility]. Allergies: Coded Allergies: CHLORPROMAZINE (Verified Allergy, Unknown, 06/23/17) ERYTHROMYCIN BASE (Verified Allergy, Unknown, 06/23/17) Uncoded Allergies: TAPE (Allergy, Unknown, 06/23/17) Medication History Scheduled Ascorbic Acid* (Vitamin C*), 500 MG ORAL DAILY, (Reported) Carbamazepine (Tegretol*), 200 MG PO FOUR TIMES A DAY, (Reported) Docusate Sodium* (Colace*), 100 MG ORAL DAILY, (Reported) Enoxaparin* (Lovenox*), 40 MG SUBQ DAILY, (Reported) Lactulose (Lactulose*), 30 ML ORAL Q6HR, (Reported) Levetiracetam* (Levetiracetam*), 500 MG ORAL TWICE A DAY, (Reported) Magnesium Hydroxide* (Milk Of Magnesia*), 30 ML ORAL DAILY, (Reported) Midodrine* (Proamatine*), 5 MG ORAL BID, (Reported) Multivitamins* (Multivitamins*), 1 TAB ORAL DAILY, (Reported) Na Phos,M-B/Na Phos,Di-Ba* (Fleet Enema*), 133 ML RECTAL DAILY, (Reported) Olanzapine* (Zyprexa*), 15 MG ORAL DAILY, (Reported) Pantoprazole* (Protonix*), 40 MG ORAL DAILY, (Reported) Quetiapine Fumarate* (Seroquel*), 200 MG ORAL DAILY, (Reported) Valproate Sodium (Depakene), 250 MG PO BID, (Reported) Scheduled PRN Acetaminophen* (Tylenol Extra Strength*), 500 MG ORAL Q6H PRN for Mild Pain/ Temp > 100.5, (Reported) Acetylcysteine* (Acetylcysteine*), 200 MG HHN Q6H PRN for Shortness of breath, ( Reported) Lorazepam* (Ativan*), 1 MG ORAL Q6HR PRN for For Anxiety, (Reported) Ondansetron* (Zofran*), 4 MG IV Q6H PRN for Nausea & Vomiting, (Reported) Miscellaneous Medications Bisacodyl (Dulcolax), 10 MG RC, (Reported) Ipratropium/Albuterol Sulfate (DuoNeb 0.5-3(2.5)mg/3ml), 3 ML HHN, (Reported) Mag Hydrox/Al Hydrox/Simeth (Shirley-Lanta Liquid), 355 ML PO, (Reported) Patient History Healthcare decision maker Charo Gary (Guardian) Resuscitation status Full Code Advanced Directive on File No Past Medical/Surgical History Past Medical/Surgical History: (1) Schizophrenia (2) Limited mobility (3) longterm resident (4) History of pacemaker Review of Systems All Other Systems: negative except mentioned in HPI Physical Exam General Appearance: cachetic Lines, tubes and drains: peripheral HEENT: normocephalic, atraumatic Neck: non-tender, normal alignment Respiratory/Chest: chest wall non-tender, rhonchi - bilaterally Breasts: no masses Cardiovascular/Chest: normal peripheral pulses, normal rate Abdomen: normal bowel sounds, non tender Genitourinary/Rectal: normal genital exam, normal rectal exam Extremities: normal range of motion, non-tender Skin Exam: normal pigmentation 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 Last 24 Hour Vital Signs Date Time Temp Pulse Resp B/P (MAP) Pulse Ox O2 Delivery O2 Flow Rate FiO2 06/24/17 09:25 94 06/24/17 08:00 60 06/24/17 08:00 97.4 60 17 102/56 93 Bi-pap 60 06/24/17 06:40 60 18 100 Full Face 60 06/24/17 05:15 68 21 98 Full Face 60 06/24/17 04:00 96.5 85 23 107/66 98 Bi-pap 60 06/24/17 04:00 74 06/24/17 04:00 60 06/24/17 03:35 71 20 100 Facial 60 06/24/17 01:38 64 21 99 Facial 60 06/24/17 00:44 98.0 66 31 101/55 98 Bi-pap 60 06/23/17 23:20 87 24 98 Bi-pap 60 06/23/17 23:20 87 20 98 Bi-pap 60 06/23/17 23:19 85 20 98 Facial 60 06/23/17 21:00 82 24 98 Facial 60 06/23/17 20:00 98.0 77 24 104/59 97 Bi-pap 50 06/23/17 20:00 76 06/23/17 20:00 60 06/23/17 19:05 78 25 97 Facial 60 06/23/17 16:50 81 25 97 Facial 50 06/23/17 16:00 98.0 83 22 106/59 95 Bi-pap 50 06/23/17 16:00 50 06/23/17 15:52 88 06/23/17 14:50 84 22 98 Facial 50 06/23/17 13:07 90 20 106/46 96 Bi-pap 30 06/23/17 12:48 90 06/23/17 12:43 97.8 92 22 122/69 93 Bi-pap 45 06/23/17 12:40 89 36 91 Facial 50 06/23/17 12:30 50 06/23/17 11:41 2.0 30 Height (Feet): 5 Height (Inches): 11.00 Weight (Pounds): 180 Medications Current Medications Medications (Trade) Dose Ordered Sig/Karen Route PRN Reason Start Time Stop Time Status Last Admin Dose Admin Albuterol/ Ipratropium (DuoNeb 0.5-3(2.5)mg/3ml) 3 ml Q4H PRN HHN dyspnea 06/23/17 13:30 06/28/17 13:29 Carbamazepine (TEGretol) 200 mg FOUR TIMES A DAY ORAL 06/23/17 13:00 07/23/17 12:59 06/24/17 09:08 Dextrose (Dextrose 50%) STAT PRN IV Hypoglycemia 06/23/17 14:00 07/23/17 13:59 Docusate Sodium (Colace) 100 mg DAILY ORAL 06/24/17 09:00 07/24/17 08:59 06/24/17 09:08 Heparin Sodium (Porcine) (Heparin 5000 units/ml) 5,000 units EVERY 12 HOURS SUBQ 06/23/17 21:00 07/23/17 20:59 06/24/17 09:11 Ketorolac Tromethamine (Toradol 30mg) 30 mg Q8H PRN IV moderate pain 4-6 06/23/17 13:30 06/28/17 13:29 Levetiracetam (Keppra) 500 mg Q12HR ORAL 06/23/17 21:00 07/23/17 20:59 06/24/17 09:08 Lorazepam (Ativan 2mg/ml 1ml) 0.5 mg Q4H PRN IV For Anxiety 06/23/17 13:30 06/30/17 13:29 Methylprednisolone Sodium Succinate (Solu-MEDROL) 60 mg Q6H IV 06/23/17 18:00 07/23/17 17:59 06/24/17 05:07 Morphine Sulfate (Morphine Sulfate) 2 mg Q4H PRN IVP severe pain 7-10 06/23/17 13:30 06/30/17 13:29 Nitroglycerin (Ntg) 0.4 mg Q5M X 3 DOSES PRN SL Prn Chest Pain 06/23/17 13:30 07/23/17 13:29 Olanzapine (ZyPREXA) 15 mg DAILY ORAL 06/24/17 09:00 07/24/17 08:59 06/24/17 09:08 Ondansetron HCl (Zofran) 4 mg Q6H PRN IVP Nausea & Vomiting 06/23/17 13:30 07/23/17 13:29 Piperacillin Sod/ Tazobactam Sod 3.375 gm/Dextrose 110 ml @ 27.5 mls/hr EVERY 8 HOURS IVPB 06/23/17 15:00 06/28/17 14:59 06/24/17 05:07 Quetiapine Fumarate (SEROquel) 200 mg DAILY ORAL 06/24/17 09:00 07/24/17 08:59 06/24/17 09:09 Temazepam (Restoril) 15 mg HSPRN PRN ORAL Insomnia 06/23/17 21:00 06/30/17 20:59 Theophylline (Dane-Dur) 100 mg EVERY 12 HOURS ORAL 06/23/17 21:00 07/23/17 20:59 06/24/17 09:08 Vancomycin HCl (Vanco rx to dose) 1 ea DAILY PRN MISC Per rx protocol 06/23/17 13:15 07/23/17 13:14 Vancomycin HCl 1 gm/Dextrose 275 ml @ 183.708 mls/hr Q12H IVPB 06/23/17 23:00 06/28/17 22:59 06/23/17 21:34 Assessment/Plan Problem List: (1) Acute respiratory failure ICD Codes: J96.00 - Acute respiratory failure, unspecified whether with hypoxia or hypercapnia SNOMED: 76865525 (2) Sepsis ICD Codes: A41.9 - Sepsis, unspecified organism SNOMED: 23667137 (3) UTI (urinary tract infection) ICD Codes: N39.0 - Urinary tract infection, site not specified SNOMED: 46657774 (4) Schizophrenia ICD Codes: F20.9 - Schizophrenia, unspecified SNOMED: 33655646 (5) Limited mobility ICD Codes: Z74.09 - Other reduced mobility SNOMED: 0677419 (6) History of pacemaker ICD Codes: Z95.0 - Presence of cardiac pacemaker SNOMED: 718232329 (7) longterm resident ICD Codes: Z59.3 - Problems related to living in residential institution SNOMED: 241710392 Assessment/Plan titrate fio2 respiratory treatment chest pt IV abx check echo dvt prophylaxis f/u on CXRpt/ot GWEN MARTE Jun 24, 2017 11:35
--- NOTE | 2017-06-24 11:39 | Pulmonology Progress Note ---
Assessment/Plan Problems: (1) Acute respiratory failure (2) Sepsis (3) UTI (urinary tract infection) (4) Schizophrenia (5) Limited mobility (6) History of pacemaker (7) custodial resident Assessment/Plan improving taper oxygen check cultures respiratory treatment Anemia w/u Subjective ROS Limited/Unobtainable: No Interval Events: feeling better, less short of breath Allergies: Coded Allergies: CHLORPROMAZINE (Verified Allergy, Unknown, 06/23/17) ERYTHROMYCIN BASE (Verified Allergy, Unknown, 06/23/17) Uncoded Allergies: TAPE (Allergy, Unknown, 06/23/17) Objective Last 24 Hour Vital Signs Date Time Temp Pulse Resp B/P (MAP) Pulse Ox O2 Delivery O2 Flow Rate FiO2 06/24/17 09:25 94 06/24/17 08:00 60 06/24/17 08:00 97.4 60 17 102/56 93 Bi-pap 60 06/24/17 06:40 60 18 100 Full Face 60 06/24/17 05:15 68 21 98 Full Face 60 06/24/17 04:00 96.5 85 23 107/66 98 Bi-pap 60 06/24/17 04:00 74 06/24/17 04:00 60 06/24/17 03:35 71 20 100 Facial 60 06/24/17 01:38 64 21 99 Facial 60 06/24/17 00:44 98.0 66 31 101/55 98 Bi-pap 60 06/23/17 23:20 87 24 98 Bi-pap 60 06/23/17 23:20 87 20 98 Bi-pap 60 06/23/17 23:19 85 20 98 Facial 60 06/23/17 21:00 82 24 98 Facial 60 06/23/17 20:00 98.0 77 24 104/59 97 Bi-pap 50 06/23/17 20:00 76 06/23/17 20:00 60 06/23/17 19:05 78 25 97 Facial 60 06/23/17 16:50 81 25 97 Facial 50 06/23/17 16:00 98.0 83 22 106/59 95 Bi-pap 50 06/23/17 16:00 50 06/23/17 15:52 88 06/23/17 14:50 84 22 98 Facial 50 06/23/17 13:07 90 20 106/46 96 Bi-pap 30 06/23/17 12:48 90 06/23/17 12:43 97.8 92 22 122/69 93 Bi-pap 45 06/23/17 12:40 89 36 91 Facial 50 06/23/17 12:30 50 06/23/17 11:41 2.0 30 General Appearance: WD/WN HEENT: normocephalic, atraumatic Respiratory/Chest: chest wall non-tender, lungs clear Cardiovascular: normal peripheral pulses, normal rate Abdomen: normal bowel sounds, soft, non tender Genitourinary: normal external genitalia Extremities: no cyanosis Skin: no rash 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, abnormal gait Current Medications Medications (Trade) Dose Ordered Sig/Karen Route PRN Reason Start Time Stop Time Status Last Admin Dose Admin Albuterol/ Ipratropium (DuoNeb 0.5-3(2.5)mg/3ml) 3 ml Q4H PRN HHN dyspnea 06/23/17 13:30 06/28/17 13:29 Carbamazepine (TEGretol) 200 mg FOUR TIMES A DAY ORAL 06/23/17 13:00 07/23/17 12:59 06/24/17 09:08 Dextrose (Dextrose 50%) STAT PRN IV Hypoglycemia 06/23/17 14:00 07/23/17 13:59 Docusate Sodium (Colace) 100 mg DAILY ORAL 06/24/17 09:00 07/24/17 08:59 06/24/17 09:08 Heparin Sodium (Porcine) (Heparin 5000 units/ml) 5,000 units EVERY 12 HOURS SUBQ 06/23/17 21:00 07/23/17 20:59 06/24/17 09:11 Ketorolac Tromethamine (Toradol 30mg) 30 mg Q8H PRN IV moderate pain 4-6 06/23/17 13:30 06/28/17 13:29 Levetiracetam (Keppra) 500 mg Q12HR ORAL 06/23/17 21:00 07/23/17 20:59 06/24/17 09:08 Lorazepam (Ativan 2mg/ml 1ml) 0.5 mg Q4H PRN IV For Anxiety 06/23/17 13:30 06/30/17 13:29 Methylprednisolone Sodium Succinate (Solu-MEDROL) 60 mg Q6H IV 06/23/17 18:00 07/23/17 17:59 06/24/17 05:07 Morphine Sulfate (Morphine Sulfate) 2 mg Q4H PRN IVP severe pain 7-10 06/23/17 13:30 06/30/17 13:29 Nitroglycerin (Ntg) 0.4 mg Q5M X 3 DOSES PRN SL Prn Chest Pain 06/23/17 13:30 07/23/17 13:29 Olanzapine (ZyPREXA) 15 mg DAILY ORAL 06/24/17 09:00 07/24/17 08:59 06/24/17 09:08 Ondansetron HCl (Zofran) 4 mg Q6H PRN IVP Nausea & Vomiting 06/23/17 13:30 07/23/17 13:29 Piperacillin Sod/ Tazobactam Sod 3.375 gm/Dextrose 110 ml @ 27.5 mls/hr EVERY 8 HOURS IVPB 06/23/17 15:00 06/28/17 14:59 06/24/17 05:07 Quetiapine Fumarate (SEROquel) 200 mg DAILY ORAL 06/24/17 09:00 07/24/17 08:59 06/24/17 09:09 Temazepam (Restoril) 15 mg HSPRN PRN ORAL Insomnia 06/23/17 21:00 06/30/17 20:59 Theophylline (Dane-Dur) 100 mg EVERY 12 HOURS ORAL 06/23/17 21:00 07/23/17 20:59 06/24/17 09:08 Vancomycin HCl (Vanco rx to dose) 1 ea DAILY PRN MISC Per rx protocol 06/23/17 13:15 07/23/17 13:14 Vancomycin HCl 1 gm/Dextrose 275 ml @ 183.708 mls/hr Q12H IVPB 06/23/17 23:00 06/28/17 22:59 06/23/17 21:34 GWNE MARTE Jun 24, 2017 11:39
[2017-06-24] MEDS: Vancomycin 1gm in D5W 275ml IVPB SCH ×2 (11:55→23:31)
[2017-06-24 12:00] VITALS: BP 90/47
[2017-06-24] MEDS ORDERED: Sodium Chloride 500ML 500 ML IV ONE (13:30)
--- NOTE | 2017-06-24 14:41 | General Progress Note ---
Progress Note Progress Note [id number] full note dictated RANCHO SYKES Jun 24, 2017 14:41
--- NOTE | 2017-06-24 14:41 | General Progress Note ---
Progress Note Progress Note [id number] full note dictated RANCHO SYKES Jun 24, 2017 14:41
--- NOTE | 2017-06-24 14:41 | General Progress Note ---
Progress Note Progress Note [id number] full note dictated RANCHO SYKES Jun 24, 2017 14:41
[2017-06-24 15:32] LABS: APPEARANCE,URINE CLOUDY; BILIRUBIN, URINE NEGATIVE (NEGATIVE); GLUCOSE, URINE (UA) NEGATIVE (NEGATIVE); KETONES,URINE NEGATIVE (NEGATIVE); LEUKOCYTE ESTERASE ,URINE 1+ (NEGATIVE); NITRITE,URINE NEGATIVE (NEGATIVE); PH,URINE 5 (4.5-8.0); PROTEIN,URINE 2+ (NEGATIVE); UROBILINOGEN,URINE 1 MG/DL (0.0-1.0)
[2017-06-24 15:41] LABS: COLOR,URINE YELLOW
--- NOTE | 2017-06-24 15:54 | Infectious Diseases Prog Note ---
Assessment/Plan Problems: (1) HCAP (healthcare-associated pneumonia) Assessment & Plan: continue vancomycin, and zosyn, await sputum culture and monitor CXR (2) Acute respiratory failure Assessment & Plan: due to pneumonia, continu vancomycin and zosyn monitor ABG, and CXR, taper steroids (3) UTI (urinary tract infection) Assessment & Plan: await urine culture, continue zosyn empirically (4) Sepsis Assessment & Plan: due to the above, continue wide spectrum antibiotics pending culture results Subjective ROS Limited/Unobtainable: Yes Allergies: Coded Allergies: CHLORPROMAZINE (Verified Allergy, Unknown, 06/23/17) ERYTHROMYCIN BASE (Verified Allergy, Unknown, 06/23/17) Uncoded Allergies: TAPE (Allergy, Unknown, 06/23/17) Subjective he was up in bed, awake and alert, not in distress , responsive, afebrile Objective Vital Signs Last 24 Hour Vital Signs Date Time Temp Pulse Resp B/P (MAP) Pulse Ox O2 Delivery O2 Flow Rate FiO2 06/24/17 12:00 97.4 77 22 90/47 96 Nasal Cannula 1.0 06/24/17 12:00 5.0 06/24/17 12:00 74 06/24/17 09:25 94 06/24/17 08:00 60 06/24/17 08:00 97.4 60 17 102/56 93 Bi-pap 60 06/24/17 08:00 60 06/24/17 06:40 60 18 100 Full Face 60 06/24/17 05:15 68 21 98 Full Face 60 06/24/17 04:00 96.5 85 23 107/66 98 Bi-pap 60 06/24/17 04:00 74 06/24/17 04:00 60 06/24/17 03:35 71 20 100 Facial 60 06/24/17 01:38 64 21 99 Facial 60 06/24/17 00:44 98.0 66 31 101/55 98 Bi-pap 60 06/23/17 23:20 87 24 98 Bi-pap 60 06/23/17 23:20 87 20 98 Bi-pap 60 06/23/17 23:19 85 20 98 Facial 60 06/23/17 21:00 82 24 98 Facial 60 06/23/17 20:00 98.0 77 24 104/59 97 Bi-pap 50 06/23/17 20:00 76 06/23/17 20:00 60 06/23/17 19:05 78 25 97 Facial 60 06/23/17 16:50 81 25 97 Facial 50 06/23/17 16:00 98.0 83 22 106/59 95 Bi-pap 50 06/23/17 16:00 50 Height (Feet): 5 Height (Inches): 11.00 Weight (Pounds): 180 General Appearance: WD/WN, no acute distress HEENT: normocephalic, atraumatic, anicteric, mucous membranes moist, supple, no JVD Respiratory/Chest: chest wall non-tender, lungs clear, normal breath sounds, no respiratory distress, no accessory muscle use Cardiovascular: normal peripheral pulses, normal rate, regular rhythm, no gallop/murmur, no JVD Abdomen: normal bowel sounds, soft, non tender, no organomegaly, non distended , no mass, no scars Extremities: no cyanosis, no clubbing Skin: no rash, no lesions, ulcers Neurologic/Psychiatric: alert, oriented x 3, responsive Lymphatic: no neck adenopathy, no groin adenopathy Laboratory Tests Test 06/24/17 14:55 Urine Color Yellow Urine Appearance Cloudy Urine pH 5 (4.5-8.0) Urine Specific [place] 1.020 (1.005-1.035) Urine Protein 2+ (NEGATIVE) H Urine Glucose (UA) Negative (NEGATIVE) Urine Ketones Negative (NEGATIVE) Urine Occult Blood Negative (NEGATIVE) Urine Nitrite Negative (NEGATIVE) Urine Bilirubin Negative (NEGATIVE) Urine Urobilinogen 1 MG/DL (0.0-1.0) H Urine Leukocyte Esterase 1+ (NEGATIVE) H Urine RBC 2-4 /HPF (0 - 0) H Urine WBC 2-4 /HPF (0 - 0) Urine Squamous Epithelial Cells Occasional /LPF Urine Amorphous Sediment Moderate /LPF (NONE) H Urine Bacteria Moderate /HPF (NONE) H Urine Random Total Protein Pending Urine Random Sodium Pending Urine Creatinine Pending Current Medications Medications (Trade) Dose Ordered Sig/Karen Route PRN Reason Start Time Stop Time Status Last Admin Dose Admin Albuterol/ Ipratropium (DuoNeb 0.5-3(2.5)mg/3ml) 3 ml Q4H PRN HHN dyspnea 06/23/17 13:30 06/28/17 13:29 Carbamazepine (TEGretol) 200 mg FOUR TIMES A DAY ORAL 06/23/17 13:00 07/23/17 12:59 06/24/17 12:09 Dextrose (Dextrose 50%) STAT PRN IV Hypoglycemia 06/23/17 14:00 07/23/17 13:59 Docusate Sodium (Colace) 100 mg DAILY ORAL 06/24/17 09:00 07/24/17 08:59 06/24/17 09:08 Heparin Sodium (Porcine) (Heparin 5000 units/ml) 5,000 units EVERY 12 HOURS SUBQ 06/23/17 21:00 07/23/17 20:59 06/24/17 09:11 Levetiracetam (Keppra) 500 mg Q12HR ORAL 06/23/17 21:00 07/23/17 20:59 06/24/17 09:08 Lorazepam (Ativan 2mg/ml 1ml) 0.5 mg Q4H PRN IV For Anxiety 06/23/17 13:30 06/30/17 13:29 Methylprednisolone Sodium Succinate (Solu-MEDROL) 60 mg Q6H IV 06/23/17 18:00 07/23/17 17:59 06/24/17 12:09 Morphine Sulfate (Morphine Sulfate) 2 mg Q4H PRN IVP severe pain 7-10 06/23/17 13:30 06/30/17 13:29 Nitroglycerin (Ntg) 0.4 mg Q5M X 3 DOSES PRN SL Prn Chest Pain 06/23/17 13:30 07/23/17 13:29 Olanzapine (ZyPREXA) 15 mg DAILY ORAL 06/24/17 09:00 07/24/17 08:59 06/24/17 09:08 Ondansetron HCl (Zofran) 4 mg Q6H PRN IVP Nausea & Vomiting 06/23/17 13:30 07/23/17 13:29 Piperacillin Sod/ Tazobactam Sod 3.375 gm/Dextrose 110 ml @ 27.5 mls/hr EVERY 8 HOURS IVPB 06/23/17 15:00 06/28/17 14:59 06/24/17 14:19 Quetiapine Fumarate (SEROquel) 200 mg DAILY ORAL 06/24/17 09:00 07/24/17 08:59 10/9/17 09:09 Temazepam (Restoril) 15 mg HSPRN PRN ORAL Insomnia 06/23/17 21:00 06/30/17 20:59 Theophylline (Dane-Dur) 100 mg EVERY 12 HOURS ORAL 06/23/17 21:00 07/23/17 20:59 06/24/17 09:08 Vancomycin HCl (Vanco rx to dose) 1 ea DAILY PRN MISC Per rx protocol 06/23/17 13:15 07/23/17 13:14 Vancomycin HCl 1 gm/Dextrose 275 ml @ 183.708 mls/hr Q12H IVPB 06/23/17 23:00 06/28/17 22:59 06/24/17 11:55 Dafne Orourke M.D. Jun 24, 2017 15:54
[2017-06-24 16:00] VITALS: BP 103/60
[2017-06-24 20:00] VITALS: BP 101/66
--- NOTE | 2017-06-24 23:15 | Consultation ---
DATE OF CONSULTATION: 06/24/2017 NEPHROLOGY CONSULTATION CONSULTING PHYSICIAN: Mirian Neri M.D. REFERRING PHYSICIAN: Den Moreau D.O. REASON FOR CONSULTATION: Metabolic alkalosis and elevated BNP. HISTORY OF PRESENT ILLNESS: The patient is a 71-year-old, unfortunate male with past medical history significant for history of schizophrenia, history of seizure disorder, anemia, bipolar disease, and history of chronic kidney disease, baseline creatinine is unknown. He was brought into [facility] for shortness of breath and decreased saturation. Upon arrival in the ER, the patient was found to be mildly hypotensive, blood pressure 100/53. The patient also found to be tachypneic. Currently, the patient is on 1 liter nasal cannula and his saturation is running around 97%. He was also found to have an elevation of bicarbonate on BMP and also found to have an elevation in his BNP more than 1000. I was called for management of fluid status and electrolyte imbalance. PAST MEDICAL HISTORY: 1. History of schizophrenia. 2. History of COPD. 3. History of seizure disorder. 4. History of cellulitis. 5. History of anemia. 6. History of peripheral arterial disease. 7. History of CAD. PAST SURGICAL HISTORY: None. MEDICATIONS: 1. Tylenol 650 mg q.6 h. p.r.n. pain. 2. Vitamin C 500 mg p.o. daily. 3. Dulcolax 10 mg p.o. daily p.r.n. constipation. 4. Tegretol 200 mg p.o. daily. 5. Colace 100 mg p.o. daily. 6. Lovenox 40 mg p.o. daily. 7. Lactulose 30 mL p.o. q.6 h. p.r.n. constipation. 8. Milk of magnesium p.r.n. 9. MVI 1 tablet p.o. daily. 10. Fleet Enema p.r.n. 11. Zyprexa 15 mg p.o. daily. 12. Zofran 4 mg p.r.n. nausea and vomiting. 13. Protonix 40 mg p.o. daily. 14. Seroquel 200 mg p.o. daily. 15. Valproate sodium 250 mg p.o. daily. SOCIAL HISTORY: He lives at long term. There is unknown history of tobacco, alcohol, or drug use. REVIEW OF SYSTEMS: Unable to obtain due to the patient's condition and mental status. PHYSICAL EXAMINATION: VITAL SIGNS: The patient had temperature of 98 degrees, blood pressure 100/53, pulse rate of 109, respiratory rate of 18. HEAD AND NECK: No JVP. No LAD. No thyromegaly. Extraocular movements intact. Pupils are reactive to light and accommodation. LUNGS: Clear to auscultation. CARDIAC: Regular rate and rhythm. S1 and S2. No murmur. No rub. ABDOMEN: Soft, nontender, and nondistended. EXTREMITIES: No edema. No clubbing. No cyanosis. NEUROLOGIC: The patient opened up his eyes, not following verbal commands. LABORATORY AND DIAGNOSTIC DATA: The patient had WBC count of 15,000, hemoglobin of 9.8, hematocrit of 30, and platelet count of 265. Chemistry reveals sodium 144, potassium 4.4, chloride 102, bicarbonate of 31, BUN of 16, creatinine of 1, glucose of 130, and calcium of 8.7. Troponin was negative. BNP was 1168. ABG revealed pH of 7.32, pCO2 of 60, pO2 of 131, and bicarbonate was 30. The patient had a chest x-ray, which showed cardiopulmonary congestion. ASSESSMENT: 1. Possible congestive heart failure exacerbation based on the elevated BNP and positive chest x-ray. 2. Elevated bicarbonate is in response to severe respiratory acidosis. 3. Hypertension. 4. History of chronic obstructive pulmonary disease. PLAN: Plan for the patient is to obtain UA. Check the random urine protein-creatinine ratio. Start the patient on Lasix. Check I's and O's, daily weights. Monitor renal function and electrolytes closely. Avoid any NSAIDs and nephrotoxics. Again, I would like to thank Dr. Den Moreau for allowing me to participate in the care of this patient. Mirian Neri M.D. DR: ASHLEY JOB#: [id number] CC:
[2017-06-25] VITALS: BP 100/53
--- NOTE | 2017-06-25 00:30 | History and Physical Report ---
DATE OF ADMISSION: 06/23/2017 TIME SEEN: At 12 noon. ATTENDING PHYSICIAN: Den Moreau D.O. CONSULTANTS: 1. Naheed Espinoza M.D. 2. Dr. Salter. 3. Devon Castillo M.D. CHIEF COMPLAINT: Shortness of breath, leukocytosis. BRIEF HISTORY: The patient is a 71-year-old male from [facility], presented with above-mentioned diagnosis. The patient was admitted to telemetry for further care. Currently calm, slight short of breath, sleeping in bed, not talking much. PAST MEDICAL HISTORY: Include schizophrenia, anemia, and weakness. PAST SURGICAL HISTORY: Pacemaker, IVC filter. MEDICATIONS: Include Colace, Zyprexa, Seroquel, vancomycin, Keppra, heparin, Vistaril, methylprednisolone, Zosyn. ALLERGIES: Chlorpromazine and erythromycin base. SOCIAL HISTORY: Unable to obtain secondary to the patient's condition. REVIEW OF SYSTEMS: Not available. PHYSICAL EXAMINATION: GENERAL: Lethargic in bed, sleeping, not talking much. VITAL SIGNS: Temperature 97 degrees, pulse 60, respirations 17, and blood pressure 104/56. CARDIOVASCULAR: No murmur. LUNGS: Poor exchange. ABDOMEN: Bowel sounds positive. Nontender and nondistended. EXTREMITIES: No cyanosis, clubbing, or edema. NEUROLOGICAL: The patient moves all extremities, but slightly weak. LABORATORY DATA: Labs showed white count of 15, hemoglobin and hematocrit 9.8 and 30, and platelets 255,000. BMP shows CO2 31, glucose 130. Troponin 0.00. BNP is 1168. Urinalysis show 1+ occult blood, 2+ protein. ASSESSMENT: 1. Shortness of breath. 2. Leukocytosis. 3. Anemia. 4. Schizophrenia. 5. Weakness. 6. Status post IVC filter. 7. Pacemaker. PLAN: 1. Continue premedications. 2. O2, pulmonary treatment. 3. Antibiotics per Infectious Diseases. 4. Blood pressure control. 5. OT/PT. 6. Dietary evaluation. 7. CBC and BMP in the morning. Dr. Espinoza, Dr. Salter, Dr. Castillo, Dr. Menjivar, and Dr. Neri to consult. We will continue to follow this patient. Den Moreau D.O. DR: Perez JOB#: [id number] CC:
[2017-06-25 04:00] VITALS: BP 93/54
[2017-06-25] MEDS: Solu-MEDROL 125mg Inj IV SCH ×4 (05:03→23:31)
[2017-06-25] MEDS: Zoysn 3.37gm in D5W 110ml IVPB SCH ×2 (05:04→13:22)
[2017-06-25 06:17] LABS: BASOPHILS % (AUTO) 0.4 % (0.0-2.0); EOSINOPHILS % (AUTO) 0.3 % (0.0-3.0); HEMATOCRIT 26.4 % (42.0-52.0); HEMOGLOBIN 8.9 G/DL (14.2-18.0); LYMPHOCYTES % (AUTO) 10.5 % (20.0-45.0); MEAN CORPUSCULAR VOLUME 106 FL (80-99); MONOCYTES % (AUTO) 3.9 % (1.0-10.0); NEUTROPHILS % (AUTO) 84.9 % (45.0-75.0); PLATELET COUNT 266 K/UL (150-450); RED CELL DISTRIBUTION WIDTH 13.4 % (11.6-14.8); WHITE BLOOD COUNT 9.1 K/UL (4.8-10.8)
[2017-06-25 06:52] LABS: ALANINE AMINOTRANSFERASE 8 U/L (12-78); ALBUMIN/GLOBULIN RATIO 0.4 (1.0-2.7); ALKALINE PHOSPHATASE 118 U/L (46-116); ANION GAP 5 (5-15); ASPARTATE AMINO TRANSFERASE 13 U/L (15-37); BILIRUBIN,TOTAL 0.2 MG/DL (0.2-1.0); BLOOD UREA NITROGEN 20 mg/dL (7-18); CALCIUM 8.9 MG/DL (8.5-10.1); CARBON DIOXIDE 30 MMOL/L (21-32); CHLORIDE 103 MMOL/L (98-107); CREATININE 1.1 MG/DL (0.55-1.30); LACTATE DEHYDROGENASE 176 U/L (81-234); POTASSIUM 4.9 MMOL/L (3.5-5.1); SODIUM 138 MMOL/L (136-145)
[2017-06-25 07:46] LABS: % IRON SATURATION 70 % (15-50); IRON 88 ug/dL (50-175); TOTAL IRON BINDING CAPACITY 125 ug/dL (250-450)
[2017-06-25 08:00] VITALS: BP 130/66
--- NOTE | 2017-06-25 08:11 | Cardiology Report ---
APPROVED REPORT EKG Measurement Heart [id number] [id number] Sinus tachycardia Otherwise normal ECG
--- NOTE | 2017-06-25 08:11 | Cardiology Report ---
APPROVED REPORT EKG Measurement Heart [id number] [id number] Sinus tachycardia Otherwise normal ECG
--- NOTE | 2017-06-25 08:11 | Cardiology Report ---
APPROVED REPORT EKG Measurement Heart [id number] 162P53 [id number] Sinus tachycardia Otherwise normal ECG
[2017-06-25] MEDS ORDERED: Docusate 100mg/10ml Liq ORAL SCH (09:00)
[2017-06-25] MEDS: carBAMazepine 200mg tab ORAL SCH ×4 (09:46→20:58)
[2017-06-25] MEDS: QUEtiapine 200mg tab ORAL SCH (09:47)
[2017-06-25] MEDS: Theophylline ER 100mg ORAL SCH ×2 (09:47→20:57)
[2017-06-25] MEDS: Heparin 5000 units/ml inj SUBQ SCH ×2 (09:49→21:02)
--- NOTE | 2017-06-25 10:10 | Pulmonology Progress Note ---
Assessment/Plan Problems: (1) Acute respiratory failure (2) Sepsis (3) UTI (urinary tract infection) (4) Schizophrenia (5) Limited mobility (6) History of pacemaker (7) long term resident Assessment/Plan afebrile BP better improving taper oxygen check cultures respiratory treatment Anemia w/u med/surg Subjective ROS Limited/Unobtainable: No Constitutional: Reports: no symptoms HEENT: Repors: no symptoms Respiratory: Reports: no symptoms Allergies: Coded Allergies: CHLORPROMAZINE (Verified Allergy, Unknown, 06/23/17) ERYTHROMYCIN BASE (Verified Allergy, Unknown, 06/23/17) Uncoded Allergies: TAPE (Allergy, Unknown, 06/23/17) Objective Last 24 Hour Vital Signs Date Time Temp Pulse Resp B/P (MAP) Pulse Ox O2 Delivery O2 Flow Rate FiO2 06/25/17 09:24 60 22 Nasal Cannula 4.0 36 06/25/17 08:40 83 24 94 Nasal Cannula 3.0 32 06/25/17 08:38 80 22 92 Nasal Cannula 3.0 32 06/25/17 08:00 97.8 91 24 130/66 95 Nasal Cannula 5.0 06/25/17 08:00 5.0 06/25/17 07:01 99 Nasal Cannula 3.0 32 06/25/17 07:01 Nasal Cannula 3.0 32 06/25/17 04:00 98.4 72 18 93/54 99 Nasal Cannula 5.0 06/25/17 04:00 65 06/25/17 04:00 5.0 06/25/17 00:00 97.6 67 18 100/53 95 Nasal Cannula 5.0 06/25/17 00:00 5.0 06/24/17 23:45 96 06/24/17 20:00 96.5 72 18 101/66 98 Nasal Cannula 5.0 06/24/17 20:00 5.0 06/24/17 19:51 79 06/24/17 16:00 97.5 80 16 103/60 95 Nasal Cannula 5.0 06/24/17 16:00 81 06/24/17 16:00 5.0 06/24/17 12:00 97.4 77 22 90/47 96 Nasal Cannula 1.0 06/24/17 12:00 5.0 06/24/17 12:00 74 Intake and Output 06/25/17 06/26/17 19:00 07:00 Intake Total 27.5 ml Balance 27.5 ml IV Total 27.5 ml General Appearance: WD/WN HEENT: normocephalic, atraumatic Respiratory/Chest: chest wall non-tender, lungs clear Cardiovascular: normal peripheral pulses, normal rate Abdomen: normal bowel sounds, soft, non tender Genitourinary: normal external genitalia Extremities: no cyanosis Skin: no lesions 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, no motor/sensory deficits, normal mood/affect Microbiology Date/Time Source Procedure Growth Status 06/23/17 10:20 Blood Blood Culture - Preliminary NO GROWTH AFTER 24 HOURS Resulted 06/23/17 10:10 Blood Blood Culture - Preliminary NO GROWTH AFTER 24 HOURS Resulted 06/23/17 11:15 Nasal Nares Left MRSA Culture - Final Staphylococcus Aureus - Mrsa Complete 06/24/17 14:55 Urine,Clean Catch Urine Culture - Preliminary NO GROWTH Resulted 06/24/17 11:00 Indwelling Cath Urine Culture - Preliminary NO GROWTH Resulted 06/23/17 11:15 Rectum VRE Culture - Final Enterococcus Faecium - Vre Complete Laboratory Tests 06/24/17 14:55: Urine Color Yellow, Urine Appearance Cloudy, Urine pH 5, Urine Specific [place] 1.020, Urine Protein 2+H, Urine Glucose (UA) Negative, Urine Ketones Negative, Urine Occult Blood Negative, Urine Nitrite Negative, Urine Bilirubin Negative, Urine Urobilinogen 1H, Urine Leukocyte Esterase 1+H, Urine RBC 2-4H, Urine WBC 2 -4, Urine Squamous Epithelial Cells Occasional, Urine Amorphous Sediment ModerateH, Urine Bacteria ModerateH, Urine Random Total Protein 156H, Urine Random Sodium 78, Urine Creatinine 163.3H 06/25/17 03:40: White Blood Count 9.1, Red Blood Count 2.50L, Hemoglobin 8.9L, Hematocrit 26.4L , Mean Corpuscular Volume 106H, Mean Corpuscular Hemoglobin 35.5H, Mean Corpuscular Hemoglobin Concent 33.6, Red Cell Distribution Width 13.4, Platelet Count 266, Mean Platelet Volume 5.8L, Neutrophils (%) (Auto) 84.9H, Lymphocytes (%) (Auto) 10.5L, Monocytes (%) (Auto) 3.9, Eosinophils (%) (Auto) 0.3, Basophils (%) (Auto) 0.4, Erythrocyte Sedimentation Rate 131H, Reticulocyte Count [Pending], Prothrombin Time 10.7, Prothromb Time International Ratio 1.0, Activated Partial Thromboplast Time 31, Sodium Level 138, Potassium Level 4.9, Chloride Level 103, Carbon Dioxide Level 30, Anion Gap 5, Blood Urea Nitrogen 20H, Creatinine 1.1, Estimat Glomerular Filtration Rate > 60, Glucose Level 152H , Calcium Level 8.9, Iron Level 88, Total Iron Binding Capacity 125L, Percent Iron Saturation 70H, Unsaturated Iron Binding 37L, Total Bilirubin 0.2, Aspartate Amino Transf (AST/SGOT) 13L, Alanine Aminotransferase (ALT/SGPT) 8L, Alkaline Phosphatase 118H, Lactate Dehydrogenase 176, Pro-B-Type Natriuretic Peptide 1912H, Total Protein 6.9, Albumin 2.0L, Globulin 4.9, Albumin/Globulin Ratio 0.4L, Carcinoembryonic Antigen [Pending], Vitamin B12 Level 829, Folate [ Pending] 06/25/17 09:50: Vancomycin Level Trough [Pending] Current Medications Medications (Trade) Dose Ordered Sig/Karen Route PRN Reason Start Time Stop Time Status Last Admin Dose Admin Albuterol/ Ipratropium (DuoNeb 0.5-3(2.5)mg/3ml) 3 ml Q4H PRN HHN dyspnea 06/23/17 13:30 06/28/17 13:29 06/25/17 08:38 Carbamazepine (TEGretol) 200 mg FOUR TIMES A DAY ORAL 06/23/17 13:00 07/23/17 12:59 06/25/17 09:46 Dextrose (Dextrose 50%) STAT PRN IV Hypoglycemia 06/23/17 14:00 07/23/17 13:59 Docusate Sodium (Colace) 100 mg DAILY ORAL 06/25/17 09:00 07/24/17 08:59 06/25/17 09:46 Heparin Sodium (Porcine) (Heparin 5000 units/ml) 5,000 units EVERY 12 HOURS SUBQ 06/23/17 21:00 07/23/17 20:59 06/25/17 09:49 Levetiracetam (Keppra) 500 mg Q12HR ORAL 06/23/17 21:00 07/23/17 20:59 06/25/17 09:46 Lorazepam (Ativan 2mg/ml 1ml) 0.5 mg Q4H PRN IV For Anxiety 06/23/17 13:30 06/30/17 13:29 Methylprednisolone Sodium Succinate (Solu-MEDROL) 60 mg Q6H IV 06/23/17 18:00 07/23/17 17:59 06/25/17 05:03 Morphine Sulfate (Morphine Sulfate) 2 mg Q4H PRN IVP severe pain 7-10 06/23/17 13:30 06/30/17 13:29 Nitroglycerin (Ntg) 0.4 mg Q5M X 3 DOSES PRN SL Prn Chest Pain 06/23/17 13:30 07/23/17 13:29 Olanzapine (ZyPREXA) 15 mg DAILY ORAL 06/24/17 09:00 07/24/17 08:59 06/25/17 09:46 Ondansetron HCl (Zofran) 4 mg Q6H PRN IVP Nausea & Vomiting 06/23/17 13:30 07/23/17 13:29 Piperacillin Sod/ Tazobactam Sod 3.375 gm/Dextrose 110 ml @ 27.5 mls/hr EVERY 8 HOURS IVPB 06/23/17 15:00 06/28/17 14:59 06/25/17 05:04 Quetiapine Fumarate (SEROquel) 200 mg DAILY ORAL 06/24/17 09:00 07/24/17 08:59 06/25/17 09:47 Temazepam (Restoril) 15 mg HSPRN PRN ORAL Insomnia 06/23/17 21:00 06/30/17 20:59 Theophylline (Dane-Dur) 100 mg EVERY 12 HOURS ORAL 06/23/17 21:00 07/23/17 20:59 06/25/17 09:47 Vancomycin HCl (Vanco rx to dose) 1 ea DAILY PRN MISC Per rx protocol 06/23/17 13:15 07/23/17 13:14 Vancomycin HCl 1 gm/Dextrose 275 ml @ 183.708 mls/hr Q12H IVPB 06/23/17 23:00 06/28/17 22:59 06/24/17 23:31 GWEN MARTE Jun 25, 2017 10:10
--- NOTE | 2017-06-25 11:53 | Diagnostic Imaging Report ---
Indication: DYSPNEA Technique: One view of the chest Comparison: 06/23/2017 Findings: Patient is rotated to the left. There is increasing pleural fluid on the left, as well as possibly increasing retrocardiac consolidation. The right lung again demonstrates generalized mild interstitial prominence. Inferior vena cava filter is again demonstrated. Left chest pacemaker is again demonstrated. Impression: Increasing pleural and parenchymal disease on the left, over 2 days Generalized interstitial edema on the right persists, unchanged
[2017-06-25 12:00] VITALS: BP 100/53
[2017-06-25] MEDS ORDERED: Nitroglycerin Subl 0.4mg tab SL PRN (14:00)
--- NOTE | 2017-06-25 14:24 | Nephrology Progress Note ---
Assessment/Plan Assessment 1. Possible congestive heart failure exacerbation 2. Elevated bicarbonate is in response to severe respiratory acidosis. 3. Hypertension. 4. History of chronic obstructive pulmonary disease. Plan plan to continue lasix monitoring renal function monitoring electrolyte replace as need avoid any NSAID Subjective Constitutional: Reports: no symptoms HEENT: Reports: no symptoms Genitourinary: Reports: no symptoms Neurologic/Psychiatric: Reports: no symptoms Subjective awake confused Objective Objective Last 24 Hour Vital Signs Date Time Temp Pulse Resp B/P (MAP) Pulse Ox O2 Delivery O2 Flow Rate FiO2 06/25/17 12:00 5.0 06/25/17 12:00 97.2 73 22 100/53 95 Nasal Cannula 5.0 06/25/17 09:24 60 22 Nasal Cannula 4.0 36 06/25/17 08:40 83 24 94 Nasal Cannula 3.0 32 06/25/17 08:38 80 22 92 Nasal Cannula 3.0 32 06/25/17 08:00 97.8 91 24 130/66 95 Nasal Cannula 5.0 06/25/17 08:00 5.0 06/25/17 08:00 85 06/25/17 07:01 99 Nasal Cannula 3.0 32 06/25/17 07:01 Nasal Cannula 3.0 32 06/25/17 04:00 98.4 72 18 93/54 99 Nasal Cannula 5.0 06/25/17 04:00 65 06/25/17 04:00 5.0 06/25/17 00:00 97.6 67 18 100/53 95 Nasal Cannula 5.0 06/25/17 00:00 5.0 06/24/17 23:45 96 06/24/17 20:00 96.5 72 18 101/66 98 Nasal Cannula 5.0 06/24/17 20:00 5.0 06/24/17 19:51 79 06/24/17 16:00 97.5 80 16 103/60 95 Nasal Cannula 5.0 06/24/17 16:00 81 06/24/17 16:00 5.0 Intake and Output 06/25/17 06/26/17 19:00 07:00 Intake Total 55.0 ml Balance 55.0 ml IV Total 55.0 ml Laboratory Tests 06/24/17 14:55: Urine Color Yellow, Urine Appearance Cloudy, Urine pH 5, Urine Specific [place] 1.020, Urine Protein 2+H, Urine Glucose (UA) Negative, Urine Ketones Negative, Urine Occult Blood Negative, Urine Nitrite Negative, Urine Bilirubin Negative, Urine Urobilinogen 1H, Urine Leukocyte Esterase 1+H, Urine RBC 2-4H, Urine WBC 2 -4, Urine Squamous Epithelial Cells Occasional, Urine Amorphous Sediment ModerateH, Urine Bacteria ModerateH, Urine Random Total Protein 156H, Urine Random Sodium 78, Urine Creatinine 163.3H 06/25/17 03:40: White Blood Count 9.1, Red Blood Count 2.50L, Hemoglobin 8.9L, Hematocrit 26.4L , Mean Corpuscular Volume 106H, Mean Corpuscular Hemoglobin 35.5H, Mean Corpuscular Hemoglobin Concent 33.6, Red Cell Distribution Width 13.4, Platelet Count 266, Mean Platelet Volume 5.8L, Neutrophils (%) (Auto) 84.9H, Lymphocytes (%) (Auto) 10.5L, Monocytes (%) (Auto) 3.9, Eosinophils (%) (Auto) 0.3, Basophils (%) (Auto) 0.4, Differential Total Cells Counted 100, Neutrophils % ( Manual) 79H, Lymphocytes % (Manual) 12L, Monocytes % (Manual) 6, Eosinophils % ( Manual) 0, Basophils % (Manual) 0, Band Neutrophils 3, Platelet Estimate Adequate, Platelet Morphology Normal, Macrocytosis 1+, Erythrocyte Sedimentation Rate 131H, Reticulocyte Count 1.1, Prothrombin Time 10.7, Prothromb Time International Ratio 1.0, Activated Partial Thromboplast Time 31, Sodium Level 138, Potassium Level 4.9, Chloride Level 103, Carbon Dioxide Level 30, Anion Gap 5, Blood Urea Nitrogen 20H, Creatinine 1.1, Estimat Glomerular Filtration Rate > 60, Glucose Level 152H, Calcium Level 8.9, Iron Level 88, Total Iron Binding Capacity 125L, Percent Iron Saturation 70H, Unsaturated Iron Binding 37L, Total Bilirubin 0.2, Aspartate Amino Transf (AST/SGOT) 13L, Alanine Aminotransferase (ALT/SGPT) 8L, Alkaline Phosphatase 118H, Lactate Dehydrogenase 176, Pro-B-Type Natriuretic Peptide 1912H, Total Protein 6.9, Albumin 2.0L, Globulin 4.9, Albumin/Globulin Ratio 0.4L, Carcinoembryonic Antigen [Pending], Vitamin B12 Level 829, Folate [Pending] 10/10/17 09:50: Vancomycin Level Trough 27.0H Height (Feet): 5 Height (Inches): 11.00 Weight (Pounds): 180 Objective HEAD AND NECK: No JVP. No LAD. No thyromegaly. Extraocular movements intact. Pupils are reactive to light and accommodation. LUNGS: Clear to auscultation. CARDIAC: Regular rate and rhythm. S1 and S2. No murmur. No rub. ABDOMEN: Soft, nontender, and nondistended. EXTREMITIES: No edema. No clubbing. No cyanosis. NEUROLOGIC: The patient opened up his eyes, not following verbal commands. RANCHO SYKES Jun 25, 2017 14:24
[2017-06-25] MEDS ORDERED: NS 275ml ONE (14:45)
--- NOTE | 2017-06-25 14:53 | General Progress Note ---
Assessment/Plan Problem List: (1) Respiratory failure ICD Codes: J96.90 - Respiratory failure, unspecified, unspecified whether with hypoxia or hypercapnia SNOMED: 174232506 (2) Sepsis ICD Codes: A41.9 - Sepsis, unspecified organism SNOMED: 12259672 (3) UTI (urinary tract infection) ICD Codes: N39.0 - Urinary tract infection, site not specified SNOMED: 44445608 (4) Schizophrenia ICD Codes: F20.9 - Schizophrenia, unspecified SNOMED: 67619109 (5) History of pacemaker ICD Codes: Z95.0 - Presence of cardiac pacemaker SNOMED: 884172342 (6) Limited mobility ICD Codes: Z74.09 - Other reduced mobility SNOMED: 0750372 Status: stable, progressing, tolerating diet Assessment/Plan o2 pul tx ot pt diet abx cbc bmp am Subjective Constitutional: Reports: weakness Allergies: Coded Allergies: CHLORPROMAZINE (Verified Allergy, Unknown, 06/23/17) ERYTHROMYCIN BASE (Verified Allergy, Unknown, 06/23/17) Uncoded Allergies: TAPE (Allergy, Unknown, 06/23/17) All Systems: reviewed and negative except above Subjective o2nc sleepy Objective Last 24 Hour Vital Signs Date Time Temp Pulse Resp B/P (MAP) Pulse Ox O2 Delivery O2 Flow Rate FiO2 06/25/17 12:00 5.0 06/25/17 12:00 97.2 73 22 100/53 95 Nasal Cannula 5.0 06/25/17 09:24 60 22 Nasal Cannula 4.0 36 06/25/17 08:40 83 24 94 Nasal Cannula 3.0 32 06/25/17 08:38 80 22 92 Nasal Cannula 3.0 32 06/25/17 08:00 97.8 91 24 130/66 95 Nasal Cannula 5.0 06/25/17 08:00 5.0 06/25/17 08:00 85 06/25/17 07:01 99 Nasal Cannula 3.0 32 06/25/17 07:01 Nasal Cannula 3.0 32 06/25/17 04:00 98.4 72 18 93/54 99 Nasal Cannula 5.0 06/25/17 04:00 65 06/25/17 04:00 5.0 06/25/17 00:00 97.6 67 18 100/53 95 Nasal Cannula 5.0 06/25/17 00:00 5.0 06/24/17 23:45 96 06/24/17 20:00 96.5 72 18 101/66 98 Nasal Cannula 5.0 06/24/17 20:00 5.0 06/24/17 19:51 79 06/24/17 16:00 97.5 80 16 103/60 95 Nasal Cannula 5.0 06/24/17 16:00 81 06/24/17 16:00 5.0 Intake and Output 06/25/17 06/26/17 19:00 07:00 Intake Total 55.0 ml Balance 55.0 ml IV Total 55.0 ml Laboratory Tests 06/24/17 14:55: Urine Color Yellow, Urine Appearance Cloudy, Urine pH 5, Urine Specific [place] 1.020, Urine Protein 2+H, Urine Glucose (UA) Negative, Urine Ketones Negative, Urine Occult Blood Negative, Urine Nitrite Negative, Urine Bilirubin Negative, Urine Urobilinogen 1H, Urine Leukocyte Esterase 1+H, Urine RBC 2-4H, Urine WBC 2 -4, Urine Squamous Epithelial Cells Occasional, Urine Amorphous Sediment ModerateH, Urine Bacteria ModerateH, Urine Random Total Protein 156H, Urine Random Sodium 78, Urine Creatinine 163.3H 06/25/17 03:40: White Blood Count 9.1, Red Blood Count 2.50L, Hemoglobin 8.9L, Hematocrit 26.4L , Mean Corpuscular Volume 106H, Mean Corpuscular Hemoglobin 35.5H, Mean Corpuscular Hemoglobin Concent 33.6, Red Cell Distribution Width 13.4, Platelet Count 266, Mean Platelet Volume 5.8L, Neutrophils (%) (Auto) 84.9H, Lymphocytes (%) (Auto) 10.5L, Monocytes (%) (Auto) 3.9, Eosinophils (%) (Auto) 0.3, Basophils (%) (Auto) 0.4, Differential Total Cells Counted 100, Neutrophils % ( Manual) 79H, Lymphocytes % (Manual) 12L, Monocytes % (Manual) 6, Eosinophils % ( Manual) 0, Basophils % (Manual) 0, Band Neutrophils 3, Platelet Estimate Adequate, Platelet Morphology Normal, Macrocytosis 1+, Erythrocyte Sedimentation Rate 131H, Reticulocyte Count 1.1, Prothrombin Time 10.7, Prothromb Time International Ratio 1.0, Activated Partial Thromboplast Time 31, Sodium Level 138, Potassium Level 4.9, Chloride Level 103, Carbon Dioxide Level 30, Anion Gap 5, Blood Urea Nitrogen 20H, Creatinine 1.1, Estimat Glomerular Filtration Rate > 60, Glucose Level 152H, Calcium Level 8.9, Iron Level 88, Total Iron Binding Capacity 125L, Percent Iron Saturation 70H, Unsaturated Iron Binding 37L, Total Bilirubin 0.2, Aspartate Amino Transf (AST/SGOT) 13L, Alanine Aminotransferase (ALT/SGPT) 8L, Alkaline Phosphatase 118H, Lactate Dehydrogenase 176, Pro-B-Type Natriuretic Peptide 1912H, Total Protein 6.9, Albumin 2.0L, Globulin 4.9, Albumin/Globulin Ratio 0.4L, Carcinoembryonic Antigen [Pending], Vitamin B12 Level 829, Folate [Pending] 06/25/17 09:50: Vancomycin Level Trough 27.0H Height (Feet): 5 Height (Inches): 11.00 Weight (Pounds): 180 General Appearance: lethargic EENT: normal ENT inspection Neck: normal alignment Cardiovascular: normal peripheral pulses, normal rate, regular rhythm Respiratory/Chest: chest wall non-tender, lungs clear, normal breath sounds Abdomen: normal bowel sounds, non tender, soft Extremities: normal inspection Edema: no edema noted Arm (L), no edema noted Arm (R), no edema noted Leg (L), no edema noted Leg (R), no edema noted Pedal (L), no edema noted Pedal (R), no edema noted Generalized Neurologic: motor weakness Skin: normal pigmentation, warm/dry QUINTON HUMPHRIES Jun 25, 2017 14:53
--- NOTE | 2017-06-25 14:53 | General Progress Note ---
Assessment/Plan Problem List: (1) Respiratory failure ICD Codes: J96.90 - Respiratory failure, unspecified, unspecified whether with hypoxia or hypercapnia SNOMED: 415307993 (2) Sepsis ICD Codes: A41.9 - Sepsis, unspecified organism SNOMED: 53265950 (3) UTI (urinary tract infection) ICD Codes: N39.0 - Urinary tract infection, site not specified SNOMED: 58128127 (4) Schizophrenia ICD Codes: F20.9 - Schizophrenia, unspecified SNOMED: 49662456 (5) History of pacemaker ICD Codes: Z95.0 - Presence of cardiac pacemaker SNOMED: 841825686 (6) Limited mobility ICD Codes: Z74.09 - Other reduced mobility SNOMED: 9531620 Status: stable, progressing, tolerating diet Assessment/Plan o2 pul tx ot pt diet abx cbc bmp am Subjective Constitutional: Reports: weakness Allergies: Coded Allergies: CHLORPROMAZINE (Verified Allergy, Unknown, 06/23/17) ERYTHROMYCIN BASE (Verified Allergy, Unknown, 06/23/17) Uncoded Allergies: TAPE (Allergy, Unknown, 06/23/17) All Systems: reviewed and negative except above Subjective o2nc sleepy Objective Last 24 Hour Vital Signs Date Time Temp Pulse Resp B/P (MAP) Pulse Ox O2 Delivery O2 Flow Rate FiO2 06/25/17 12:00 5.0 06/25/17 12:00 97.2 73 22 100/53 95 Nasal Cannula 5.0 06/25/17 09:24 60 22 Nasal Cannula 4.0 36 06/25/17 08:40 83 24 94 Nasal Cannula 3.0 32 06/25/17 08:38 80 22 92 Nasal Cannula 3.0 32 06/25/17 08:00 97.8 91 24 130/66 95 Nasal Cannula 5.0 06/25/17 08:00 5.0 06/25/17 08:00 85 06/25/17 07:01 99 Nasal Cannula 3.0 32 06/25/17 07:01 Nasal Cannula 3.0 32 06/25/17 04:00 98.4 72 18 93/54 99 Nasal Cannula 5.0 06/25/17 04:00 65 06/25/17 04:00 5.0 06/25/17 00:00 97.6 67 18 100/53 95 Nasal Cannula 5.0 06/25/17 00:00 5.0 06/24/17 23:45 96 06/24/17 20:00 96.5 72 18 101/66 98 Nasal Cannula 5.0 06/24/17 20:00 5.0 06/24/17 19:51 79 06/24/17 16:00 97.5 80 16 103/60 95 Nasal Cannula 5.0 06/24/17 16:00 81 06/24/17 16:00 5.0 Intake and Output 06/25/17 06/26/17 19:00 07:00 Intake Total 55.0 ml Balance 55.0 ml IV Total 55.0 ml Laboratory Tests 06/24/17 14:55: Urine Color Yellow, Urine Appearance Cloudy, Urine pH 5, Urine Specific [place] 1.020, Urine Protein 2+H, Urine Glucose (UA) Negative, Urine Ketones Negative, Urine Occult Blood Negative, Urine Nitrite Negative, Urine Bilirubin Negative, Urine Urobilinogen 1H, Urine Leukocyte Esterase 1+H, Urine RBC 2-4H, Urine WBC 2 -4, Urine Squamous Epithelial Cells Occasional, Urine Amorphous Sediment ModerateH, Urine Bacteria ModerateH, Urine Random Total Protein 156H, Urine Random Sodium 78, Urine Creatinine 163.3H 06/25/17 03:40: White Blood Count 9.1, Red Blood Count 2.50L, Hemoglobin 8.9L, Hematocrit 26.4L , Mean Corpuscular Volume 106H, Mean Corpuscular Hemoglobin 35.5H, Mean Corpuscular Hemoglobin Concent 33.6, Red Cell Distribution Width 13.4, Platelet Count 266, Mean Platelet Volume 5.8L, Neutrophils (%) (Auto) 84.9H, Lymphocytes (%) (Auto) 10.5L, Monocytes (%) (Auto) 3.9, Eosinophils (%) (Auto) 0.3, Basophils (%) (Auto) 0.4, Differential Total Cells Counted 100, Neutrophils % ( Manual) 79H, Lymphocytes % (Manual) 12L, Monocytes % (Manual) 6, Eosinophils % ( Manual) 0, Basophils % (Manual) 0, Band Neutrophils 3, Platelet Estimate Adequate, Platelet Morphology Normal, Macrocytosis 1+, Erythrocyte Sedimentation Rate 131H, Reticulocyte Count 1.1, Prothrombin Time 10.7, Prothromb Time International Ratio 1.0, Activated Partial Thromboplast Time 31, Sodium Level 138, Potassium Level 4.9, Chloride Level 103, Carbon Dioxide Level 30, Anion Gap 5, Blood Urea Nitrogen 20H, Creatinine 1.1, Estimat Glomerular Filtration Rate > 60, Glucose Level 152H, Calcium Level 8.9, Iron Level 88, Total Iron Binding Capacity 125L, Percent Iron Saturation 70H, Unsaturated Iron Binding 37L, Total Bilirubin 0.2, Aspartate Amino Transf (AST/SGOT) 13L, Alanine Aminotransferase (ALT/SGPT) 8L, Alkaline Phosphatase 118H, Lactate Dehydrogenase 176, Pro-B-Type Natriuretic Peptide 1912H, Total Protein 6.9, Albumin 2.0L, Globulin 4.9, Albumin/Globulin Ratio 0.4L, Carcinoembryonic Antigen [Pending], Vitamin B12 Level 829, Folate [Pending] 06/25/17 09:50: Vancomycin Level Trough 27.0H Height (Feet): 5 Height (Inches): 11.00 Weight (Pounds): 180 General Appearance: lethargic EENT: normal ENT inspection Neck: normal alignment Cardiovascular: normal peripheral pulses, normal rate, regular rhythm Respiratory/Chest: chest wall non-tender, lungs clear, normal breath sounds Abdomen: normal bowel sounds, non tender, soft Extremities: normal inspection Edema: no edema noted Arm (L), no edema noted Arm (R), no edema noted Leg (L), no edema noted Leg (R), no edema noted Pedal (L), no edema noted Pedal (R), no edema noted Generalized Neurologic: motor weakness Skin: normal pigmentation, warm/dry QUINTON HUMPHRIES Jun 25, 2017 14:53
--- NOTE | 2017-06-25 14:53 | General Progress Note ---
Assessment/Plan Problem List: (1) Respiratory failure ICD Codes: J96.90 - Respiratory failure, unspecified, unspecified whether with hypoxia or hypercapnia SNOMED: 739004639 (2) Sepsis ICD Codes: A41.9 - Sepsis, unspecified organism SNOMED: 14053055 (3) UTI (urinary tract infection) ICD Codes: N39.0 - Urinary tract infection, site not specified SNOMED: 54170460 (4) Schizophrenia ICD Codes: F20.9 - Schizophrenia, unspecified SNOMED: 88624455 (5) History of pacemaker ICD Codes: Z95.0 - Presence of cardiac pacemaker SNOMED: 388360928 (6) Limited mobility ICD Codes: Z74.09 - Other reduced mobility SNOMED: 6841571 Status: stable, progressing, tolerating diet Assessment/Plan o2 pul tx ot pt diet abx cbc bmp am Subjective Constitutional: Reports: weakness Allergies: Coded Allergies: CHLORPROMAZINE (Verified Allergy, Unknown, 06/23/17) ERYTHROMYCIN BASE (Verified Allergy, Unknown, 06/23/17) Uncoded Allergies: TAPE (Allergy, Unknown, 06/23/17) All Systems: reviewed and negative except above Subjective o2nc sleepy Objective Last 24 Hour Vital Signs Date Time Temp Pulse Resp B/P (MAP) Pulse Ox O2 Delivery O2 Flow Rate FiO2 06/25/17 12:00 5.0 06/25/17 12:00 97.2 73 22 100/53 95 Nasal Cannula 5.0 06/25/17 09:24 60 22 Nasal Cannula 4.0 36 06/25/17 08:40 83 24 94 Nasal Cannula 3.0 32 06/25/17 08:38 80 22 92 Nasal Cannula 3.0 32 06/25/17 08:00 97.8 91 24 130/66 95 Nasal Cannula 5.0 06/25/17 08:00 5.0 06/25/17 08:00 85 06/25/17 07:01 99 Nasal Cannula 3.0 32 06/25/17 07:01 Nasal Cannula 3.0 32 06/25/17 04:00 98.4 72 18 93/54 99 Nasal Cannula 5.0 06/25/17 04:00 65 06/25/17 04:00 5.0 06/25/17 00:00 97.6 67 18 100/53 95 Nasal Cannula 5.0 06/25/17 00:00 5.0 06/24/17 23:45 96 06/24/17 20:00 96.5 72 18 101/66 98 Nasal Cannula 5.0 06/24/17 20:00 5.0 06/24/17 19:51 79 06/24/17 16:00 97.5 80 16 103/60 95 Nasal Cannula 5.0 06/24/17 16:00 81 06/24/17 16:00 5.0 Intake and Output 06/25/17 06/26/17 19:00 07:00 Intake Total 55.0 ml Balance 55.0 ml IV Total 55.0 ml Laboratory Tests 06/24/17 14:55: Urine Color Yellow, Urine Appearance Cloudy, Urine pH 5, Urine Specific [place] 1.020, Urine Protein 2+H, Urine Glucose (UA) Negative, Urine Ketones Negative, Urine Occult Blood Negative, Urine Nitrite Negative, Urine Bilirubin Negative, Urine Urobilinogen 1H, Urine Leukocyte Esterase 1+H, Urine RBC 2-4H, Urine WBC 2 -4, Urine Squamous Epithelial Cells Occasional, Urine Amorphous Sediment ModerateH, Urine Bacteria ModerateH, Urine Random Total Protein 156H, Urine Random Sodium 78, Urine Creatinine 163.3H 06/25/17 03:40: White Blood Count 9.1, Red Blood Count 2.50L, Hemoglobin 8.9L, Hematocrit 26.4L , Mean Corpuscular Volume 106H, Mean Corpuscular Hemoglobin 35.5H, Mean Corpuscular Hemoglobin Concent 33.6, Red Cell Distribution Width 13.4, Platelet Count 266, Mean Platelet Volume 5.8L, Neutrophils (%) (Auto) 84.9H, Lymphocytes (%) (Auto) 10.5L, Monocytes (%) (Auto) 3.9, Eosinophils (%) (Auto) 0.3, Basophils (%) (Auto) 0.4, Differential Total Cells Counted 100, Neutrophils % ( Manual) 79H, Lymphocytes % (Manual) 12L, Monocytes % (Manual) 6, Eosinophils % ( Manual) 0, Basophils % (Manual) 0, Band Neutrophils 3, Platelet Estimate Adequate, Platelet Morphology Normal, Macrocytosis 1+, Erythrocyte Sedimentation Rate 131H, Reticulocyte Count 1.1, Prothrombin Time 10.7, Prothromb Time International Ratio 1.0, Activated Partial Thromboplast Time 31, Sodium Level 138, Potassium Level 4.9, Chloride Level 103, Carbon Dioxide Level 30, Anion Gap 5, Blood Urea Nitrogen 20H, Creatinine 1.1, Estimat Glomerular Filtration Rate > 60, Glucose Level 152H, Calcium Level 8.9, Iron Level 88, Total Iron Binding Capacity 125L, Percent Iron Saturation 70H, Unsaturated Iron Binding 37L, Total Bilirubin 0.2, Aspartate Amino Transf (AST/SGOT) 13L, Alanine Aminotransferase (ALT/SGPT) 8L, Alkaline Phosphatase 118H, Lactate Dehydrogenase 176, Pro-B-Type Natriuretic Peptide 1912H, Total Protein 6.9, Albumin 2.0L, Globulin 4.9, Albumin/Globulin Ratio 0.4L, Carcinoembryonic Antigen [Pending], Vitamin B12 Level 829, Folate [Pending] 06/25/17 09:50: Vancomycin Level Trough 27.0H Height (Feet): 5 Height (Inches): 11.00 Weight (Pounds): 180 General Appearance: lethargic EENT: normal ENT inspection Neck: normal alignment Cardiovascular: normal peripheral pulses, normal rate, regular rhythm Respiratory/Chest: chest wall non-tender, lungs clear, normal breath sounds Abdomen: normal bowel sounds, non tender, soft Extremities: normal inspection Edema: no edema noted Arm (L), no edema noted Arm (R), no edema noted Leg (L), no edema noted Leg (R), no edema noted Pedal (L), no edema noted Pedal (R), no edema noted Generalized Neurologic: motor weakness Skin: normal pigmentation, warm/dry QUINTON HUMPHRIES Jun 25, 2017 14:53
--- NOTE | 2017-06-25 15:50 | Infectious Diseases Prog Note ---
Assessment/Plan Problems: (1) HCAP (healthcare-associated pneumonia) Assessment & Plan: on vancomycin, and zosyn, await sputum culture , repeated CXR showed worsening left pleural effusion , will order CT chest for further evaluation, may need left thoracentesis (2) Acute respiratory failure Assessment & Plan: due to pneumonia, continu vancomycin and zosyn monitor ABG, and CXR, taper steroids (3) UTI (urinary tract infection) Assessment & Plan: await urine culture, continue zosyn empirically (4) Sepsis Assessment & Plan: due to the above, continue wide spectrum antibiotics pending culture results Subjective ROS Limited/Unobtainable: Yes Allergies: Coded Allergies: CHLORPROMAZINE (Verified Allergy, Unknown, 06/23/17) ERYTHROMYCIN BASE (Verified Allergy, Unknown, 06/23/17) Uncoded Allergies: TAPE (Allergy, Unknown, 06/23/17) Subjective he was up in bed, awake and alert, not in distress , responsive, afebrile Objective Vital Signs Last 24 Hour Vital Signs Date Time Temp Pulse Resp B/P (MAP) Pulse Ox O2 Delivery O2 Flow Rate FiO2 06/25/17 12:00 5.0 06/25/17 12:00 97.2 73 22 100/53 95 Nasal Cannula 5.0 06/25/17 09:24 60 22 Nasal Cannula 4.0 36 06/25/17 08:40 83 24 94 Nasal Cannula 3.0 32 06/25/17 08:38 80 22 92 Nasal Cannula 3.0 32 06/25/17 08:00 97.8 91 24 130/66 95 Nasal Cannula 5.0 06/25/17 08:00 5.0 06/25/17 08:00 85 06/25/17 07:01 99 Nasal Cannula 3.0 32 06/25/17 07:01 Nasal Cannula 3.0 32 06/25/17 04:00 98.4 72 18 93/54 99 Nasal Cannula 5.0 06/25/17 04:00 65 06/25/17 04:00 5.0 06/25/17 00:00 97.6 67 18 100/53 95 Nasal Cannula 5.0 06/25/17 00:00 5.0 06/24/17 23:45 96 06/24/17 20:00 96.5 72 18 101/66 98 Nasal Cannula 5.0 06/24/17 20:00 5.0 06/24/17 19:51 79 06/24/17 16:00 97.5 80 16 103/60 95 Nasal Cannula 5.0 06/24/17 16:00 81 06/24/17 16:00 5.0 Height (Feet): 5 Height (Inches): 11.00 Weight (Pounds): 180 General Appearance: WD/WN, no acute distress HEENT: normocephalic, atraumatic, anicteric, mucous membranes moist Respiratory/Chest: chest wall non-tender, lungs clear, normal breath sounds, no respiratory distress, no accessory muscle use Cardiovascular: normal peripheral pulses, normal rate, regular rhythm, no gallop/murmur, no JVD Abdomen: normal bowel sounds, soft, non tender, no organomegaly, non distended , no mass, no scars Extremities: no cyanosis, no clubbing Skin: no rash, no lesions Neurologic/Psychiatric: responsive Microbiology Date/Time Source Procedure Growth Status 06/23/17 10:20 Blood Blood Culture - Preliminary NO GROWTH AFTER 24 HOURS Resulted 06/23/17 10:10 Blood Blood Culture - Preliminary NO GROWTH AFTER 24 HOURS Resulted 06/24/17 04:00 Sputum Gram Stain - Final Resulted 06/24/17 04:00 Sputum Sputum Culture Pending Resulted 06/23/17 11:15 Nasal Nares Left MRSA Culture - Final Staphylococcus Aureus - Mrsa Complete 06/24/17 14:55 Urine,Clean Catch Urine Culture - Preliminary NO GROWTH Resulted 06/24/17 11:00 Indwelling Cath Urine Culture - Preliminary NO GROWTH Resulted 06/23/17 11:15 Rectum VRE Culture - Final Enterococcus Faecium - Vre Complete Laboratory Tests Test 06/25/17 03:40 06/25/17 09:50 White Blood Count 9.1 K/UL (4.8-10.8) Red Blood Count 2.50 M/UL (4.70-6.10) L Hemoglobin 8.9 G/DL (14.2-18.0) L Hematocrit 26.4 % (42.0-52.0) L Mean Corpuscular Volume 106 FL (80-99) H Mean Corpuscular Hemoglobin 35.5 PG (27.0-31.0) H Mean Corpuscular Hemoglobin Concent 33.6 G/DL (32.0-36.0) Red Cell Distribution Width 13.4 % (11.6-14.8) Platelet Count 266 K/UL (150-450) Mean Platelet Volume 5.8 FL (6.5-10.1) L Neutrophils (%) (Auto) 84.9 % (45.0-75.0) H Lymphocytes (%) (Auto) 10.5 % (20.0-45.0) L Monocytes (%) (Auto) 3.9 % (1.0-10.0) Eosinophils (%) (Auto) 0.3 % (0.0-3.0) Basophils (%) (Auto) 0.4 % (0.0-2.0) Differential Total Cells Counted 100 Neutrophils % (Manual) 79 % (45-75) H Lymphocytes % (Manual) 12 % (20-45) L Monocytes % (Manual) 6 % (1-10) Eosinophils % (Manual) 0 % (0-3) Basophils % (Manual) 0 % (0-2) Band Neutrophils 3 % (0-8) Platelet Estimate Adequate Platelet Morphology Normal Macrocytosis 1+ Erythrocyte Sedimentation Rate 131 MM/HR (0-20) H Reticulocyte Count 1.1 % (0.0-2.0) Prothrombin Time 10.7 SEC (9.30-11.50) Prothromb Time International Ratio 1.0 (0.9-1.1) Activated Partial Thromboplast Time 31 SEC (23-33) Sodium Level 138 MMOL/L (136-145) Potassium Level 4.9 MMOL/L (3.5-5.1) Chloride Level 103 MMOL/L (98-107) Carbon Dioxide Level 30 MMOL/L (21-32) Anion Gap 5 (5-15) Blood Urea Nitrogen 20 mg/dL (7-18) H Creatinine 1.1 MG/DL (0.55-1.30) Estimat Glomerular Filtration Rate > 60 mL/min (>60) Glucose Level 152 MG/DL (74-106) H Calcium Level 8.9 MG/DL (8.5-10.1) Iron Level 88 ug/dL (50-175) Total Iron Binding Capacity 125 ug/dL (250-450) L Percent Iron Saturation 70 % (15-50) H Unsaturated Iron Binding 37 ug/dL (112-346) L Total Bilirubin 0.2 MG/DL (0.2-1.0) Aspartate Amino Transf (AST/SGOT) 13 U/L (15-37) L Alanine Aminotransferase (ALT/SGPT) 8 U/L (12-78) L Alkaline Phosphatase 118 U/L (46-116) H Lactate Dehydrogenase 176 U/L (81-234) Pro-B-Type Natriuretic Peptide 1912 (0-125) H Total Protein 6.9 G/DL (6.4-8.2) Albumin 2.0 G/DL (3.4-5.0) L Globulin 4.9 g/dL Albumin/Globulin Ratio 0.4 (1.0-2.7) L Carcinoembryonic Antigen Pending Vitamin B12 Level 829 PG/ML (193-986) Folate Pending Vancomycin Level Trough 27.0 ug/mL (5.0-12.0) H Current Medications Medications (Trade) Dose Ordered Sig/Karen Route PRN Reason Start Time Stop Time Status Last Admin Dose Admin Albuterol/ Ipratropium (DuoNeb 0.5-3(2.5)mg/3ml) 3 ml Q4H PRN HHN dyspnea 06/25/17 17:30 06/28/17 13:29 Carbamazepine (TEGretol) 200 mg FOUR TIMES A DAY ORAL 06/25/17 18:00 07/23/17 12:59 Dextrose (Dextrose 50%) STAT PRN IV Hypoglycemia 06/25/17 14:30 07/25/17 14:29 Docusate Sodium (Colace) 100 mg DAILY ORAL 06/26/17 09:00 07/24/17 08:59 Heparin Sodium (Porcine) (Heparin 5000 units/ml) 5,000 units EVERY 12 HOURS SUBQ 06/25/17 21:00 07/23/17 20:59 Levetiracetam (Keppra) 500 mg Q12HR ORAL 06/25/17 21:00 07/23/17 20:59 Lorazepam (Ativan 2mg/ml 1ml) 0.5 mg Q4H PRN IV For Anxiety 06/25/17 17:30 06/30/17 13:29 Methylprednisolone Sodium Succinate (Solu-MEDROL) 60 mg Q6H IV 06/25/17 18:00 07/23/17 17:59 Morphine Sulfate (Morphine Sulfate) 2 mg Q4H PRN IVP severe pain 7-10 06/25/17 17:30 06/30/17 13:29 Nitroglycerin (Ntg) 0.4 mg Q5M X 3 DOSES PRN SL Prn Chest Pain 06/25/17 14:00 07/23/17 13:29 Olanzapine (ZyPREXA) 15 mg DAILY ORAL 06/26/17 09:00 07/24/17 08:59 Ondansetron HCl (Zofran) 4 mg Q6H PRN IVP Nausea & Vomiting 06/25/17 14:30 07/23/17 14:29 Piperacillin Sod/ Tazobactam Sod 3.375 gm/Dextrose 110 ml @ 27.5 mls/hr EVERY 8 HOURS IVPB 06/25/17 22:00 07/02/17 21:59 Quetiapine Fumarate (SEROquel) 200 mg DAILY ORAL 06/26/17 09:00 07/24/17 08:59 Temazepam (Restoril) 15 mg HSPRN PRN ORAL Insomnia 06/25/17 21:00 06/30/17 20:59 Theophylline (Dane-Dur) 100 mg EVERY 12 HOURS ORAL 06/25/17 21:00 07/23/17 20:59 Vancomycin HCl (Vanco rx to dose) 1 ea DAILY PRN MISC Per rx protocol 06/25/17 14:30 07/25/17 14:29 Vancomycin HCl/ Dextrose 250 ml @ 166.667 mls/hr Q24H IVPB 06/26/17 04:00 07/01/17 03:59 Dafne Orourke M.D. Jun 25, 2017 15:50
[2017-06-25 16:02] VITALS: BP 107/58
[2017-06-25] MEDS ORDERED: Morphine Sulfate 2mg/ml Inj IVP PRN (17:30)
[2017-06-25] MEDS ORDERED: LORazepam Inj 2mg/ml 1ml IV PRN (17:30)
[2017-06-25] MEDS ORDERED: Albuterol/Ipratropium 3ml neb HHN PRN (17:30)
[2017-06-25 20:00] VITALS: BP 101/54
[2017-06-25] MEDS: Piperacillin/Tazobactam 3.375 GM in D5W 110 ML IVPB SCH (21:48)
[2017-06-25] MEDS ORDERED: Vancomycin 1250mg/D5W 250ml IVPB SCH (23:00)
--- NOTE | 2017-06-25 23:08 | Consultation ---
History of Present Illness General Date patient seen: Jun 24, 2017 Chief Complaint: Upper Respiratory Illness Referring physician: Dr. Moreau Reason for Consultation: Respiratory failure Present Illness HPI 77-year-old male with hx of schizophrenia, who presents with chief complaint of burning on urination for two to three days. the pt currently stable on meds however is on two antipsychotics. the pt was agitated earlier/ Allergies: Coded Allergies: CHLORPROMAZINE (Verified Allergy, Unknown, 06/23/17) ERYTHROMYCIN BASE (Verified Allergy, Unknown, 06/23/17) Uncoded Allergies: TAPE (Allergy, Unknown, 06/23/17) Medication History Scheduled Ascorbic Acid* (Vitamin C*), 500 MG ORAL DAILY, (Reported) Carbamazepine (Tegretol*), 200 MG PO FOUR TIMES A DAY, (Reported) Docusate Sodium* (Colace*), 100 MG ORAL DAILY, (Reported) Enoxaparin* (Lovenox*), 40 MG SUBQ DAILY, (Reported) Lactulose (Lactulose*), 30 ML ORAL Q6HR, (Reported) Levetiracetam* (Levetiracetam*), 500 MG ORAL TWICE A DAY, (Reported) Magnesium Hydroxide* (Milk Of Magnesia*), 30 ML ORAL DAILY, (Reported) Midodrine* (Proamatine*), 5 MG ORAL BID, (Reported) Multivitamins* (Multivitamins*), 1 TAB ORAL DAILY, (Reported) Na Phos,M-B/Na Phos,Di-Ba* (Fleet Enema*), 133 ML RECTAL DAILY, (Reported) Olanzapine* (Zyprexa*), 15 MG ORAL DAILY, (Reported) Pantoprazole* (Protonix*), 40 MG ORAL DAILY, (Reported) Quetiapine Fumarate* (Seroquel*), 200 MG ORAL DAILY, (Reported) Valproate Sodium (Depakene), 250 MG PO BID, (Reported) Scheduled PRN Acetaminophen* (Tylenol Extra Strength*), 500 MG ORAL Q6H PRN for Mild Pain/ Temp > 100.5, (Reported) Acetylcysteine* (Acetylcysteine*), 200 MG HHN Q6H PRN for Shortness of breath, ( Reported) Lorazepam* (Ativan*), 1 MG ORAL Q6HR PRN for For Anxiety, (Reported) Ondansetron* (Zofran*), 4 MG IV Q6H PRN for Nausea & Vomiting, (Reported) Miscellaneous Medications Bisacodyl (Dulcolax), 10 MG RC, (Reported) Ipratropium/Albuterol Sulfate (DuoNeb 0.5-3(2.5)mg/3ml), 3 ML HHN, (Reported) Mag Hydrox/Al Hydrox/Simeth (Shirley-Lanta Liquid), 355 ML PO, (Reported) Patient History Limited by: medical condition History Provided By: Patient, Medical Record, PMD Healthcare decision maker Charo Gary (Guardian) Resuscitation status Full Code Advanced Directive on File No Past Medical/Surgical History Past Medical/Surgical History: (1) UTI (urinary tract infection) (2) Acute respiratory failure (3) Sepsis (4) HCAP (healthcare-associated pneumonia) (5) Schizophrenia (6) Limited mobility (7) History of pacemaker (8) Respiratory failure Review of Systems Psychiatric: Reports: prior hx, anxiety, depressed feelings, emotional problems , hallucinations Physical Exam General Appearance: no apparent distress, alert Neurologic: alert, oriented x 3, responsive, depressed affect Last 24 Hour Vital Signs Date Time Temp Pulse Resp B/P (MAP) Pulse Ox O2 Delivery O2 Flow Rate FiO2 06/25/17 20:04 Nasal Cannula 3.0 32 06/25/17 20:04 95 Nasal Cannula 3.0 32 06/25/17 20:00 98.1 69 20 101/54 95 Nasal Cannula 5.0 06/25/17 19:10 82 22 Nasal Cannula 3.0 32 06/25/17 16:02 97.7 80 16 107/58 99 Nasal Cannula 06/25/17 12:00 5.0 06/25/17 12:00 97.2 73 22 100/53 95 Nasal Cannula 5.0 06/25/17 09:24 60 22 Nasal Cannula 4.0 36 06/25/17 08:40 83 24 94 Nasal Cannula 3.0 32 06/25/17 08:38 80 22 92 Nasal Cannula 3.0 32 06/25/17 08:00 97.8 91 24 130/66 95 Nasal Cannula 5.0 06/25/17 08:00 5.0 06/25/17 08:00 85 06/25/17 07:01 99 Nasal Cannula 3.0 32 06/25/17 07:01 Nasal Cannula 3.0 32 06/25/17 04:00 98.4 72 18 93/54 99 Nasal Cannula 5.0 06/25/17 04:00 65 06/25/17 04:00 5.0 06/25/17 00:00 97.6 67 18 100/53 95 Nasal Cannula 5.0 06/25/17 00:00 5.0 06/24/17 23:45 96 Intake and Output 06/25/17 06/26/17 19:00 07:00 Intake Total 165.0 ml Output Total 200 ml Balance -35.0 ml IV Total 165.0 ml Output Urine Total 200 ml Laboratory Tests Test 06/25/17 03:40 06/25/17 09:50 White Blood Count 9.1 K/UL (4.8-10.8) Red Blood Count 2.50 M/UL (4.70-6.10) L Hemoglobin 8.9 G/DL (14.2-18.0) L Hematocrit 26.4 % (42.0-52.0) L Mean Corpuscular Volume 106 FL (80-99) H Mean Corpuscular Hemoglobin 35.5 PG (27.0-31.0) H Mean Corpuscular Hemoglobin Concent 33.6 G/DL (32.0-36.0) Red Cell Distribution Width 13.4 % (11.6-14.8) Platelet Count 266 K/UL (150-450) Mean Platelet Volume 5.8 FL (6.5-10.1) L Neutrophils (%) (Auto) 84.9 % (45.0-75.0) H Lymphocytes (%) (Auto) 10.5 % (20.0-45.0) L Monocytes (%) (Auto) 3.9 % (1.0-10.0) Eosinophils (%) (Auto) 0.3 % (0.0-3.0) Basophils (%) (Auto) 0.4 % (0.0-2.0) Differential Total Cells Counted 100 Neutrophils % (Manual) 79 % (45-75) H Lymphocytes % (Manual) 12 % (20-45) L Monocytes % (Manual) 6 % (1-10) Eosinophils % (Manual) 0 % (0-3) Basophils % (Manual) 0 % (0-2) Band Neutrophils 3 % (0-8) Platelet Estimate Adequate Platelet Morphology Normal Macrocytosis 1+ Erythrocyte Sedimentation Rate 131 MM/HR (0-20) H Reticulocyte Count 1.1 % (0.0-2.0) Prothrombin Time 10.7 SEC (9.30-11.50) Prothromb Time International Ratio 1.0 (0.9-1.1) Activated Partial Thromboplast Time 31 SEC (23-33) Sodium Level 138 MMOL/L (136-145) Potassium Level 4.9 MMOL/L (3.5-5.1) Chloride Level 103 MMOL/L (98-107) Carbon Dioxide Level 30 MMOL/L (21-32) Anion Gap 5 (5-15) Blood Urea Nitrogen 20 mg/dL (7-18) H Creatinine 1.1 MG/DL (0.55-1.30) Estimat Glomerular Filtration Rate > 60 mL/min (>60) Glucose Level 152 MG/DL (74-106) H Calcium Level 8.9 MG/DL (8.5-10.1) Iron Level 88 ug/dL (50-175) Total Iron Binding Capacity 125 ug/dL (250-450) L Percent Iron Saturation 70 % (15-50) H Unsaturated Iron Binding 37 ug/dL (112-346) L Total Bilirubin 0.2 MG/DL (0.2-1.0) Aspartate Amino Transf (AST/SGOT) 13 U/L (15-37) L Alanine Aminotransferase (ALT/SGPT) 8 U/L (12-78) L Alkaline Phosphatase 118 U/L (46-116) H Lactate Dehydrogenase 176 U/L (81-234) Pro-B-Type Natriuretic Peptide 1912 (0-125) H Total Protein 6.9 G/DL (6.4-8.2) Albumin 2.0 G/DL (3.4-5.0) L Globulin 4.9 g/dL Albumin/Globulin Ratio 0.4 (1.0-2.7) L Carcinoembryonic Antigen Pending Vitamin B12 Level 829 PG/ML (193-986) Folate Pending Vancomycin Level Trough 27.0 ug/mL (5.0-12.0) H Height (Feet): 5 Height (Inches): 11.00 Weight (Pounds): 180 Medications Current Medications Medications (Trade) Dose Ordered Sig/Karen Route PRN Reason Start Time Stop Time Status Last Admin Dose Admin Albuterol/ Ipratropium (DuoNeb 0.5-3(2.5)mg/3ml) 3 ml Q4H PRN HHN dyspnea 06/25/17 17:30 06/28/17 13:29 Carbamazepine (TEGretol) 200 mg FOUR TIMES A DAY ORAL 06/25/17 18:00 07/23/17 12:59 06/25/17 20:58 Dextrose (Dextrose 50%) STAT PRN IV Hypoglycemia 06/25/17 14:30 07/25/17 14:29 Docusate Sodium (Colace) 100 mg DAILY ORAL 06/26/17 09:00 07/24/17 08:59 Heparin Sodium (Porcine) (Heparin 5000 units/ml) 5,000 units EVERY 12 HOURS SUBQ 06/25/17 21:00 07/23/17 20:59 06/25/17 21:02 Levetiracetam (Keppra) 500 mg Q12HR ORAL 06/25/17 21:00 07/23/17 20:59 06/25/17 20:57 Lorazepam (Ativan 2mg/ml 1ml) 0.5 mg Q4H PRN IV For Anxiety 06/25/17 17:30 06/30/17 13:29 Methylprednisolone Sodium Succinate (Solu-MEDROL) 60 mg Q6H IV 06/25/17 18:00 07/23/17 17:59 06/25/17 17:26 Morphine Sulfate (Morphine Sulfate) 2 mg Q4H PRN IVP severe pain 7-10 06/25/17 17:30 06/30/17 13:29 Nitroglycerin (Ntg) 0.4 mg Q5M X 3 DOSES PRN SL Prn Chest Pain 06/25/17 14:00 07/23/17 13:29 Olanzapine (ZyPREXA) 15 mg DAILY ORAL 06/26/17 09:00 07/24/17 08:59 Ondansetron HCl (Zofran) 4 mg Q6H PRN IVP Nausea & Vomiting 06/25/17 14:30 07/23/17 14:29 Piperacillin Sod/ Tazobactam Sod 3.375 gm/Dextrose 110 ml @ 27.5 mls/hr EVERY 8 HOURS IVPB 06/25/17 22:00 07/02/17 21:59 06/25/17 21:48 Quetiapine Fumarate (SEROquel) 200 mg DAILY ORAL 06/26/17 09:00 07/24/17 08:59 Temazepam (Restoril) 15 mg HSPRN PRN ORAL Insomnia 06/25/17 21:00 06/30/17 20:59 Theophylline (Dane-Dur) 100 mg EVERY 12 HOURS ORAL 06/25/17 21:00 07/23/17 20:59 06/25/17 20:57 Vancomycin HCl (Vanco rx to dose) 1 ea DAILY PRN MISC Per rx protocol 06/25/17 14:30 07/25/17 14:29 Vancomycin HCl/ Dextrose 250 ml @ 166.667 mls/hr Q24H IVPB 06/26/17 04:00 07/01/17 03:59 Assessment/Plan Status: stable Assessment/Plan schizophrenia dc seroquel increase Hill Segovia M.D. Jun 25, 2017 23:08
--- NOTE | 2017-06-25 23:14 | Geriatric Progress Note ---
Assessment/Plan Assessment/Plan schizophrenia encephalopathy cont zyprexa 20mg qhs Subjective Constitutional: Reports: malaise, weakness Mood/Memory: Reports: prior hx, anxiety, depressed feelings, emotional problems Geriatric Geriatric Last 24 Hour Vital Signs Date Time Temp Pulse Resp B/P (MAP) Pulse Ox O2 Delivery O2 Flow Rate FiO2 06/25/17 20:04 Nasal Cannula 3.0 32 06/25/17 20:04 95 Nasal Cannula 3.0 32 06/25/17 20:00 98.1 69 20 101/54 95 Nasal Cannula 5.0 06/25/17 19:10 82 22 Nasal Cannula 3.0 32 06/25/17 16:02 97.7 80 16 107/58 99 Nasal Cannula 06/25/17 12:00 5.0 06/25/17 12:00 97.2 73 22 100/53 95 Nasal Cannula 5.0 06/25/17 09:24 60 22 Nasal Cannula 4.0 36 06/25/17 08:40 83 24 94 Nasal Cannula 3.0 32 06/25/17 08:38 80 22 92 Nasal Cannula 3.0 32 06/25/17 08:00 97.8 91 24 130/66 95 Nasal Cannula 5.0 06/25/17 08:00 5.0 06/25/17 08:00 85 06/25/17 07:01 99 Nasal Cannula 3.0 32 06/25/17 07:01 Nasal Cannula 3.0 32 06/25/17 04:00 98.4 72 18 93/54 99 Nasal Cannula 5.0 06/25/17 04:00 65 06/25/17 04:00 5.0 06/25/17 00:00 97.6 67 18 100/53 95 Nasal Cannula 5.0 06/25/17 00:00 5.0 06/24/17 23:45 96 Intake and Output 06/25/17 06/26/17 19:00 07:00 Intake Total 165.0 ml Output Total 200 ml Balance -35.0 ml IV Total 165.0 ml Output Urine Total 200 ml Laboratory Tests Test 06/25/17 03:40 06/25/17 09:50 White Blood Count 9.1 K/UL (4.8-10.8) Red Blood Count 2.50 M/UL (4.70-6.10) L Hemoglobin 8.9 G/DL (14.2-18.0) L Hematocrit 26.4 % (42.0-52.0) L Mean Corpuscular Volume 106 FL (80-99) H Mean Corpuscular Hemoglobin 35.5 PG (27.0-31.0) H Mean Corpuscular Hemoglobin Concent 33.6 G/DL (32.0-36.0) Red Cell Distribution Width 13.4 % (11.6-14.8) Platelet Count 266 K/UL (150-450) Mean Platelet Volume 5.8 FL (6.5-10.1) L Neutrophils (%) (Auto) 84.9 % (45.0-75.0) H Lymphocytes (%) (Auto) 10.5 % (20.0-45.0) L Monocytes (%) (Auto) 3.9 % (1.0-10.0) Eosinophils (%) (Auto) 0.3 % (0.0-3.0) Basophils (%) (Auto) 0.4 % (0.0-2.0) Differential Total Cells Counted 100 Neutrophils % (Manual) 79 % (45-75) H Lymphocytes % (Manual) 12 % (20-45) L Monocytes % (Manual) 6 % (1-10) Eosinophils % (Manual) 0 % (0-3) Basophils % (Manual) 0 % (0-2) Band Neutrophils 3 % (0-8) Platelet Estimate Adequate Platelet Morphology Normal Macrocytosis 1+ Erythrocyte Sedimentation Rate 131 MM/HR (0-20) H Reticulocyte Count 1.1 % (0.0-2.0) Prothrombin Time 10.7 SEC (9.30-11.50) Prothromb Time International Ratio 1.0 (0.9-1.1) Activated Partial Thromboplast Time 31 SEC (23-33) Sodium Level 138 MMOL/L (136-145) Potassium Level 4.9 MMOL/L (3.5-5.1) Chloride Level 103 MMOL/L (98-107) Carbon Dioxide Level 30 MMOL/L (21-32) Anion Gap 5 (5-15) Blood Urea Nitrogen 20 mg/dL (7-18) H Creatinine 1.1 MG/DL (0.55-1.30) Estimat Glomerular Filtration Rate > 60 mL/min (>60) Glucose Level 152 MG/DL (74-106) H Calcium Level 8.9 MG/DL (8.5-10.1) Iron Level 88 ug/dL (50-175) Total Iron Binding Capacity 125 ug/dL (250-450) L Percent Iron Saturation 70 % (15-50) H Unsaturated Iron Binding 37 ug/dL (112-346) L Total Bilirubin 0.2 MG/DL (0.2-1.0) Aspartate Amino Transf (AST/SGOT) 13 U/L (15-37) L Alanine Aminotransferase (ALT/SGPT) 8 U/L (12-78) L Alkaline Phosphatase 118 U/L (46-116) H Lactate Dehydrogenase 176 U/L (81-234) Pro-B-Type Natriuretic Peptide 1912 (0-125) H Total Protein 6.9 G/DL (6.4-8.2) Albumin 2.0 G/DL (3.4-5.0) L Globulin 4.9 g/dL Albumin/Globulin Ratio 0.4 (1.0-2.7) L Carcinoembryonic Antigen Pending Vitamin B12 Level 829 PG/ML (193-986) Folate Pending Vancomycin Level Trough 27.0 ug/mL (5.0-12.0) H Current Medications Medications (Trade) Dose Ordered Sig/Karen Route PRN Reason Start Time Stop Time Status Last Admin Dose Admin Albuterol/ Ipratropium (DuoNeb 0.5-3(2.5)mg/3ml) 3 ml Q4H PRN HHN dyspnea 06/25/17 17:30 06/28/17 13:29 Carbamazepine (TEGretol) 200 mg FOUR TIMES A DAY ORAL 06/25/17 18:00 07/23/17 12:59 06/25/17 20:58 Dextrose (Dextrose 50%) STAT PRN IV Hypoglycemia 06/25/17 14:30 07/25/17 14:29 Docusate Sodium (Colace) 100 mg DAILY ORAL 06/26/17 09:00 07/24/17 08:59 Heparin Sodium (Porcine) (Heparin 5000 units/ml) 5,000 units EVERY 12 HOURS SUBQ 06/25/17 21:00 07/23/17 20:59 06/25/17 21:02 Levetiracetam (Keppra) 500 mg Q12HR ORAL 06/25/17 21:00 07/23/17 20:59 06/25/17 20:57 Lorazepam (Ativan 2mg/ml 1ml) 0.5 mg Q4H PRN IV For Anxiety 06/25/17 17:30 06/30/17 13:29 Methylprednisolone Sodium Succinate (Solu-MEDROL) 60 mg Q6H IV 06/25/17 18:00 07/23/17 17:59 06/25/17 17:26 Morphine Sulfate (Morphine Sulfate) 2 mg Q4H PRN IVP severe pain 7-06/25/17 17:30 06/30/17 13:29 Nitroglycerin (Ntg) 0.4 mg Q5M X 3 DOSES PRN SL Prn Chest Pain 06/25/17 14:00 07/23/17 13:29 Olanzapine (ZyPREXA) 15 mg DAILY ORAL 06/26/17 09:00 07/24/17 08:59 Ondansetron HCl (Zofran) 4 mg Q6H PRN IVP Nausea & Vomiting 06/25/17 14:30 07/23/17 14:29 Piperacillin Sod/ Tazobactam Sod 3.375 gm/Dextrose 110 ml @ 27.5 mls/hr EVERY 8 HOURS IVPB 06/25/17 22:00 07/02/17 21:59 06/25/17 21:48 Quetiapine Fumarate (SEROquel) 200 mg DAILY ORAL 06/26/17 09:00 07/24/17 08:59 Temazepam (Restoril) 15 mg HSPRN PRN ORAL Insomnia 06/25/17 21:00 06/30/17 20:59 Theophylline (Dane-Dur) 100 mg EVERY 12 HOURS ORAL 06/25/17 21:00 07/23/17 20:59 06/25/17 20:57 Vancomycin HCl (Vanco rx to dose) 1 ea DAILY PRN MISC Per rx protocol 06/25/17 14:30 07/25/17 14:29 Vancomycin HCl/ Dextrose 250 ml @ 166.667 mls/hr Q24H IVPB 06/26/17 04:00 07/01/17 03:59 Height (Feet): 5 Height (Inches): 11.00 Weight (Pounds): 180 General Appearance: no apparent distress, alert Neurologic: alert Psychiatric Behavior: cooperative Language/Speech: slow Orientation: person, place Affect: flat Insight: poor Hill Hare M.D. Jun 25, 2017 23:14
[2017-06-26] VITALS: BP 104/50
[2017-06-26] MEDS: Vancomycin 1250mg/D5W 250ml 250 ML IVPB SCH (03:31)
[2017-06-26 04:00] VITALS: BP 107/52
[2017-06-26] MEDS ORDERED: Vancomycin 1250mg/D5W 250ml IVPB SCH (04:00)
[2017-06-26] MEDS: Solu-MEDROL 125mg Inj IV SCH ×3 (05:15→17:10)
[2017-06-26] MEDS: Piperacillin/Tazobactam 3.375 GM in D5W 110 ML IVPB SCH ×3 (05:15→22:08)
[2017-06-26 07:16] LABS: BASOPHILS % (AUTO) 0.5 % (0.0-2.0); HEMATOCRIT 27.1 % (42.0-52.0); HEMOGLOBIN 8.9 G/DL (14.2-18.0); LYMPHOCYTES % (AUTO) 21.9 % (20.0-45.0); MEAN CORPUSCULAR VOLUME 106 FL (80-99); MONOCYTES % (AUTO) 7.1 % (1.0-10.0); NEUTROPHILS % (AUTO) 70.4 % (45.0-75.0); PLATELET COUNT 279 K/UL (150-450); RED BLOOD COUNT 2.56 M/UL (4.70-6.10); RED CELL DISTRIBUTION WIDTH 13.5 % (11.6-14.8); WHITE BLOOD COUNT 7.9 K/UL (4.8-10.8)
[2017-06-26 07:41] LABS: ALANINE AMINOTRANSFERASE 12 U/L (12-78); ALBUMIN 2.1 G/DL (3.4-5.0); ALBUMIN/GLOBULIN RATIO 0.4 (1.0-2.7); ALKALINE PHOSPHATASE 89 U/L (46-116); ANION GAP 3 (5-15); ASPARTATE AMINO TRANSFERASE 10 U/L (15-37); BILIRUBIN,TOTAL 0.2 MG/DL (0.2-1.0); BLOOD UREA NITROGEN 23 mg/dL (7-18); CARBON DIOXIDE 35 MMOL/L (21-32); CHLORIDE 100 MMOL/L (98-107); CREATININE 1.1 MG/DL (0.55-1.30); PHOSPHORUS 3.5 MG/DL (2.5-4.9); POTASSIUM 4.5 MMOL/L (3.5-5.1); SODIUM 138 MMOL/L (136-145)
[2017-06-26 08:00] VITALS: BP_SYST 101; BP_SYST 110; BP_DIAS 55; BP_DIAS 58
[2017-06-26] MEDS: Heparin 5000 units/ml inj SUBQ SCH ×2 (09:00→20:38)
[2017-06-26] MEDS ORDERED: QUEtiapine 200mg tab ORAL SCH (09:00)
[2017-06-26] MEDS: Theophylline ER 100mg ORAL SCH ×2 (09:00→20:37)
[2017-06-26] MEDS: Docusate 100mg/10ml Liq ORAL SCH (09:00)
[2017-06-26] MEDS: carBAMazepine 200mg tab ORAL SCH ×5 (09:00→20:37)
--- NOTE | 2017-06-26 11:23 | General Progress Note ---
Assessment/Plan Status: stable, progressing Assessment/Plan Dementia schizophrenia -zyprexa Subjective Constitutional: Reports: malaise, weakness Neurologic/Psychiatric: Reports: depressed Allergies: Coded Allergies: CHLORPROMAZINE (Verified Allergy, Unknown, 06/23/17) ERYTHROMYCIN BASE (Verified Allergy, Unknown, 06/23/17) Uncoded Allergies: TAPE (Allergy, Unknown, 06/23/17) Subjective the pt is alert watching tv follows command. more stable today and less agitated. sleep and appetite well. Objective Last 24 Hour Vital Signs Date Time Temp Pulse Resp B/P (MAP) Pulse Ox O2 Delivery O2 Flow Rate FiO2 06/26/17 08:00 99.7 60 18 101/55 96 Room Air 06/26/17 07:51 79 22 Nasal Cannula 3.0 32 06/26/17 07:51 Nasal Cannula 3.0 32 06/26/17 07:51 93 Nasal Cannula 3.0 32 06/26/17 04:00 98.4 66 20 107/52 92 Nasal Cannula 2.0 06/26/17 00:00 98.2 60 20 104/50 91 Room Air 06/25/17 20:04 Nasal Cannula 3.0 32 06/25/17 20:04 95 Nasal Cannula 3.0 32 06/25/17 20:00 98.1 69 20 101/54 95 Nasal Cannula 5.0 06/25/17 19:10 82 22 Nasal Cannula 3.0 32 06/25/17 16:02 97.7 80 16 107/58 99 Nasal Cannula 06/25/17 12:00 5.0 06/25/17 12:00 97.2 73 22 100/53 95 Nasal Cannula 5.0 Intake and Output 06/26/17 06/27/17 19:00 07:00 Intake Total 82.5 ml Balance 82.5 ml IV Total 82.5 ml Laboratory Tests 06/26/17 05:35: White Blood Count 7.9, Red Blood Count 2.56L, Hemoglobin 8.9L, Hematocrit 27.1L , Mean Corpuscular Volume 106H, Mean Corpuscular Hemoglobin 34.7H, Mean Corpuscular Hemoglobin Concent 32.9, Red Cell Distribution Width 13.5, Platelet Count 279, Mean Platelet Volume 5.9L, Neutrophils (%) (Auto) 70.4, Lymphocytes ( %) (Auto) 21.9, Monocytes (%) (Auto) 7.1, Eosinophils (%) (Auto) 0.0, Basophils (%) (Auto) 0.5, Erythrocyte Sedimentation Rate 128H, Sodium Level 138, Potassium Level 4.5, Chloride Level 100, Carbon Dioxide Level 35H, Anion Gap 3L , Blood Urea Nitrogen 23H, Creatinine 1.1, Estimat Glomerular Filtration Rate > 60, Glucose Level 126H, Calcium Level 9.0, Phosphorus Level 3.5, Magnesium Level 2.3, Total Bilirubin 0.2, Aspartate Amino Transf (AST/SGOT) 10L, Alanine Aminotransferase (ALT/SGPT) 12, Alkaline Phosphatase 89, C-Reactive Protein, Quantitative 7.3H, Total Protein 6.9, Albumin 2.1L, Globulin 4.8, Albumin/ Globulin Ratio 0.4L Height (Feet): 5 Height (Inches): 11.00 Weight (Pounds): 180 General Appearance: no apparent distress, alert, confused Neurologic: alert, responsive, disoriented, depressed affect Hill Hare M.D. Jun 26, 2017 11:23
[2017-06-26 12:00] VITALS: BP 103/59
--- NOTE | 2017-06-26 12:08 | Diagnostic Imaging Report ---
Clinical Indication: DYSPNEA Technique: Spiral acquisitions obtained through the chest. No IV contrast utilized, reason not stated. Multiplanar reconstructions generated. Total dose length product 707 mGycm. CTDIvol(s) 19 mGy. Dose reduction achieved using automated exposure control Comparison: None Findings:There is filling of the distal left mainstem bronchus as well as the lobar bronchial origins with material, resulting in likely occlusion. There is atelectasis of most of the left lower lobe, and a significant portion of the left upper lobe. There are scattered consolidative opacities within the residual aerated left upper lobe. The aerated portion of the left lower lobe consists mostly of bullae. There is trace pleural fluid There is a small right pleural effusion. A few small subpleural blebs or bullae are seen on the right. There is minimal compressive or dependent atelectasis posteriorly in the right upper lobe. The right upper lobe is otherwise clear. The right middle lobe is clear, and there is minimal dependent atelectatic change involving the right lower lobe. There is some central bronchial wall thickening on the right, as well as volume loss in the medial right lower lobe in the region of the azygoesophageal recess. No definite bronchial obstruction demonstrated. The esophagus is unremarkable. The heart is borderline enlarged. It contains pacemaker wires. No pericardial effusion. There are a few slightly prominent but not frankly enlarged paratracheal lymph nodes, but no definite mediastinal or hilar mass or adenopathy. The right pulmonary artery is dilated, measuring 3.2 cm in diameter. The left pulmonary artery is ectatic, borderline dilated, measuring 2.9 cm diameter. Included thyroid is unremarkable. Pacemaker power pack is seen in the left chest wall. No axillary or chest wall mass or adenopathy. The bones demonstrate minimal degenerative spondylosis changes. There are mild wedge and superior endplate compression deformities of the T6 and T7 vertebral bodies The included upper abdominal anatomy demonstrates what is presumably the top of an inferior vena cava filter. Impression: Near complete atelectasis of the left lower lobe, partial atelectasis of the left upper lobe. This appears to be associated with occlusive secretions in the left mainstem bronchus and proximal lobar bronchi. There is also probably a component of consolidation as well Trace left pleural effusion Minimal parenchymal changes in the right lung. Atelectasis in the medial right lower lobe could be on the basis of chronic changes Small right pleural effusion COPD changes bilaterally, as described Dilated right main, ectatic left main pulmonary arteries, suspect pulmonary arterial hypertension Mild cardiomegaly T6 and T7 vertebral body mild compression deformities. Age indeterminate. Consider MRI for further evaluation if clinically relevant Incidental findings as noted, including inferior vena cava filter, pacemaker The CT scanner at [facility] is accredited by the [employer] and the scans are performed using protocols designed to limit radiation exposure to as low as reasonably achievable to attain images of sufficient resolution adequate for diagnostic evaluation.
--- NOTE | 2017-06-26 14:49 | General Progress Note ---
Assessment/Plan Problem List: (1) Respiratory failure ICD Codes: J96.90 - Respiratory failure, unspecified, unspecified whether with hypoxia or hypercapnia SNOMED: 872808117 (2) Sepsis ICD Codes: A41.9 - Sepsis, unspecified organism SNOMED: 63021307 (3) UTI (urinary tract infection) ICD Codes: N39.0 - Urinary tract infection, site not specified SNOMED: 43277488 (4) Schizophrenia ICD Codes: F20.9 - Schizophrenia, unspecified SNOMED: 43718653 (5) History of pacemaker ICD Codes: Z95.0 - Presence of cardiac pacemaker SNOMED: 921493147 (6) Limited mobility ICD Codes: Z74.09 - Other reduced mobility SNOMED: 5544277 Status: stable, progressing, tolerating diet Assessment/Plan o2 pul tx ot pt diet abx cbc bmp am dc plan Subjective Constitutional: Reports: weakness Allergies: Coded Allergies: CHLORPROMAZINE (Verified Allergy, Unknown, 06/23/17) ERYTHROMYCIN BASE (Verified Allergy, Unknown, 06/23/17) Uncoded Allergies: TAPE (Allergy, Unknown, 06/23/17) All Systems: reviewed and negative except above Subjective o2nc sleepy Objective Last 24 Hour Vital Signs Date Time Temp Pulse Resp B/P (MAP) Pulse Ox O2 Delivery O2 Flow Rate FiO2 06/26/17 12:00 99.1 72 21 103/59 97 Room Air 06/26/17 08:00 99.7 60 18 101/55 96 Room Air 06/26/17 07:51 79 22 Nasal Cannula 3.0 32 06/26/17 07:51 Nasal Cannula 3.0 32 06/26/17 07:51 93 Nasal Cannula 3.0 32 06/26/17 04:00 98.4 66 20 107/52 92 Nasal Cannula 2.0 06/26/17 00:00 98.2 60 20 104/50 91 Room Air 06/25/17 20:04 Nasal Cannula 3.0 32 06/25/17 20:04 95 Nasal Cannula 3.0 32 06/25/17 20:00 98.1 69 20 101/54 95 Nasal Cannula 5.0 06/25/17 19:10 82 22 Nasal Cannula 3.0 32 06/25/17 16:02 97.7 80 16 107/58 99 Nasal Cannula Intake and Output 06/26/17 06/27/17 19:00 07:00 Intake Total 82.5 ml Balance 82.5 ml IV Total 82.5 ml Laboratory Tests 06/26/17 05:35: White Blood Count 7.9, Red Blood Count 2.56L, Hemoglobin 8.9L, Hematocrit 27.1L , Mean Corpuscular Volume 106H, Mean Corpuscular Hemoglobin 34.7H, Mean Corpuscular Hemoglobin Concent 32.9, Red Cell Distribution Width 13.5, Platelet Count 279, Mean Platelet Volume 5.9L, Neutrophils (%) (Auto) 70.4, Lymphocytes ( %) (Auto) 21.9, Monocytes (%) (Auto) 7.1, Eosinophils (%) (Auto) 0.0, Basophils (%) (Auto) 0.5, Erythrocyte Sedimentation Rate 128H, Sodium Level 138, Potassium Level 4.5, Chloride Level 100, Carbon Dioxide Level 35H, Anion Gap 3L , Blood Urea Nitrogen 23H, Creatinine 1.1, Estimat Glomerular Filtration Rate > 60, Glucose Level 126H, Calcium Level 9.0, Phosphorus Level 3.5, Magnesium Level 2.3, Total Bilirubin 0.2, Aspartate Amino Transf (AST/SGOT) 10L, Alanine Aminotransferase (ALT/SGPT) 12, Alkaline Phosphatase 89, C-Reactive Protein, Quantitative 7.3H, Total Protein 6.9, Albumin 2.1L, Globulin 4.8, Albumin/ Globulin Ratio 0.4L Height (Feet): 5 Height (Inches): 11.00 Weight (Pounds): 180 General Appearance: lethargic EENT: normal ENT inspection Neck: normal alignment Cardiovascular: normal peripheral pulses, normal rate, regular rhythm Respiratory/Chest: chest wall non-tender, lungs clear, normal breath sounds Abdomen: normal bowel sounds, non tender, soft Extremities: normal inspection Edema: no edema noted Arm (L), no edema noted Arm (R), no edema noted Leg (L), no edema noted Leg (R), no edema noted Pedal (L), no edema noted Pedal (R), no edema noted Generalized Neurologic: motor weakness Skin: normal pigmentation, warm/dry QUINTON HUMPHRIES Jun 26, 2017 14:49
--- NOTE | 2017-06-26 14:49 | General Progress Note ---
Assessment/Plan Problem List: (1) Respiratory failure ICD Codes: J96.90 - Respiratory failure, unspecified, unspecified whether with hypoxia or hypercapnia SNOMED: 527638335 (2) Sepsis ICD Codes: A41.9 - Sepsis, unspecified organism SNOMED: 56344224 (3) UTI (urinary tract infection) ICD Codes: N39.0 - Urinary tract infection, site not specified SNOMED: 81956792 (4) Schizophrenia ICD Codes: F20.9 - Schizophrenia, unspecified SNOMED: 70588897 (5) History of pacemaker ICD Codes: Z95.0 - Presence of cardiac pacemaker SNOMED: 994748289 (6) Limited mobility ICD Codes: Z74.09 - Other reduced mobility SNOMED: 3199295 Status: stable, progressing, tolerating diet Assessment/Plan o2 pul tx ot pt diet abx cbc bmp am dc plan Subjective Constitutional: Reports: weakness Allergies: Coded Allergies: CHLORPROMAZINE (Verified Allergy, Unknown, 06/23/17) ERYTHROMYCIN BASE (Verified Allergy, Unknown, 06/23/17) Uncoded Allergies: TAPE (Allergy, Unknown, 06/23/17) All Systems: reviewed and negative except above Subjective o2nc sleepy Objective Last 24 Hour Vital Signs Date Time Temp Pulse Resp B/P (MAP) Pulse Ox O2 Delivery O2 Flow Rate FiO2 06/26/17 12:00 99.1 72 21 103/59 97 Room Air 06/26/17 08:00 99.7 60 18 101/55 96 Room Air 06/26/17 07:51 79 22 Nasal Cannula 3.0 32 06/26/17 07:51 Nasal Cannula 3.0 32 06/26/17 07:51 93 Nasal Cannula 3.0 32 06/26/17 04:00 98.4 66 20 107/52 92 Nasal Cannula 2.0 06/26/17 00:00 98.2 60 20 104/50 91 Room Air 06/25/17 20:04 Nasal Cannula 3.0 32 06/25/17 20:04 95 Nasal Cannula 3.0 32 06/25/17 20:00 98.1 69 20 101/54 95 Nasal Cannula 5.0 06/25/17 19:10 82 22 Nasal Cannula 3.0 32 06/25/17 16:02 97.7 80 16 107/58 99 Nasal Cannula Intake and Output 06/26/17 06/27/17 19:00 07:00 Intake Total 82.5 ml Balance 82.5 ml IV Total 82.5 ml Laboratory Tests 06/26/17 05:35: White Blood Count 7.9, Red Blood Count 2.56L, Hemoglobin 8.9L, Hematocrit 27.1L , Mean Corpuscular Volume 106H, Mean Corpuscular Hemoglobin 34.7H, Mean Corpuscular Hemoglobin Concent 32.9, Red Cell Distribution Width 13.5, Platelet Count 279, Mean Platelet Volume 5.9L, Neutrophils (%) (Auto) 70.4, Lymphocytes ( %) (Auto) 21.9, Monocytes (%) (Auto) 7.1, Eosinophils (%) (Auto) 0.0, Basophils (%) (Auto) 0.5, Erythrocyte Sedimentation Rate 128H, Sodium Level 138, Potassium Level 4.5, Chloride Level 100, Carbon Dioxide Level 35H, Anion Gap 3L , Blood Urea Nitrogen 23H, Creatinine 1.1, Estimat Glomerular Filtration Rate > 60, Glucose Level 126H, Calcium Level 9.0, Phosphorus Level 3.5, Magnesium Level 2.3, Total Bilirubin 0.2, Aspartate Amino Transf (AST/SGOT) 10L, Alanine Aminotransferase (ALT/SGPT) 12, Alkaline Phosphatase 89, C-Reactive Protein, Quantitative 7.3H, Total Protein 6.9, Albumin 2.1L, Globulin 4.8, Albumin/ Globulin Ratio 0.4L Height (Feet): 5 Height (Inches): 11.00 Weight (Pounds): 180 General Appearance: lethargic EENT: normal ENT inspection Neck: normal alignment Cardiovascular: normal peripheral pulses, normal rate, regular rhythm Respiratory/Chest: chest wall non-tender, lungs clear, normal breath sounds Abdomen: normal bowel sounds, non tender, soft Extremities: normal inspection Edema: no edema noted Arm (L), no edema noted Arm (R), no edema noted Leg (L), no edema noted Leg (R), no edema noted Pedal (L), no edema noted Pedal (R), no edema noted Generalized Neurologic: motor weakness Skin: normal pigmentation, warm/dry QUINTON HUMPHRIES Jun 26, 2017 14:49
--- NOTE | 2017-06-26 14:49 | General Progress Note ---
Assessment/Plan Problem List: (1) Respiratory failure ICD Codes: J96.90 - Respiratory failure, unspecified, unspecified whether with hypoxia or hypercapnia SNOMED: 532581937 (2) Sepsis ICD Codes: A41.9 - Sepsis, unspecified organism SNOMED: 84650469 (3) UTI (urinary tract infection) ICD Codes: N39.0 - Urinary tract infection, site not specified SNOMED: 33928547 (4) Schizophrenia ICD Codes: F20.9 - Schizophrenia, unspecified SNOMED: 01135665 (5) History of pacemaker ICD Codes: Z95.0 - Presence of cardiac pacemaker SNOMED: 091068133 (6) Limited mobility ICD Codes: Z74.09 - Other reduced mobility SNOMED: 0442533 Status: stable, progressing, tolerating diet Assessment/Plan o2 pul tx ot pt diet abx cbc bmp am dc plan Subjective Constitutional: Reports: weakness Allergies: Coded Allergies: CHLORPROMAZINE (Verified Allergy, Unknown, 06/23/17) ERYTHROMYCIN BASE (Verified Allergy, Unknown, 06/23/17) Uncoded Allergies: TAPE (Allergy, Unknown, 06/23/17) All Systems: reviewed and negative except above Subjective o2nc sleepy Objective Last 24 Hour Vital Signs Date Time Temp Pulse Resp B/P (MAP) Pulse Ox O2 Delivery O2 Flow Rate FiO2 06/26/17 12:00 99.1 72 21 103/59 97 Room Air 06/26/17 08:00 99.7 60 18 101/55 96 Room Air 06/26/17 07:51 79 22 Nasal Cannula 3.0 32 06/26/17 07:51 Nasal Cannula 3.0 32 06/26/17 07:51 93 Nasal Cannula 3.0 32 06/26/17 04:00 98.4 66 20 107/52 92 Nasal Cannula 2.0 06/26/17 00:00 98.2 60 20 104/50 91 Room Air 06/25/17 20:04 Nasal Cannula 3.0 32 06/25/17 20:04 95 Nasal Cannula 3.0 32 06/25/17 20:00 98.1 69 20 101/54 95 Nasal Cannula 5.0 06/25/17 19:10 82 22 Nasal Cannula 3.0 32 06/25/17 16:02 97.7 80 16 107/58 99 Nasal Cannula Intake and Output 06/26/17 06/27/17 19:00 07:00 Intake Total 82.5 ml Balance 82.5 ml IV Total 82.5 ml Laboratory Tests 06/26/17 05:35: White Blood Count 7.9, Red Blood Count 2.56L, Hemoglobin 8.9L, Hematocrit 27.1L , Mean Corpuscular Volume 106H, Mean Corpuscular Hemoglobin 34.7H, Mean Corpuscular Hemoglobin Concent 32.9, Red Cell Distribution Width 13.5, Platelet Count 279, Mean Platelet Volume 5.9L, Neutrophils (%) (Auto) 70.4, Lymphocytes ( %) (Auto) 21.9, Monocytes (%) (Auto) 7.1, Eosinophils (%) (Auto) 0.0, Basophils (%) (Auto) 0.5, Erythrocyte Sedimentation Rate 128H, Sodium Level 138, Potassium Level 4.5, Chloride Level 100, Carbon Dioxide Level 35H, Anion Gap 3L , Blood Urea Nitrogen 23H, Creatinine 1.1, Estimat Glomerular Filtration Rate > 60, Glucose Level 126H, Calcium Level 9.0, Phosphorus Level 3.5, Magnesium Level 2.3, Total Bilirubin 0.2, Aspartate Amino Transf (AST/SGOT) 10L, Alanine Aminotransferase (ALT/SGPT) 12, Alkaline Phosphatase 89, C-Reactive Protein, Quantitative 7.3H, Total Protein 6.9, Albumin 2.1L, Globulin 4.8, Albumin/ Globulin Ratio 0.4L Height (Feet): 5 Height (Inches): 11.00 Weight (Pounds): 180 General Appearance: lethargic EENT: normal ENT inspection Neck: normal alignment Cardiovascular: normal peripheral pulses, normal rate, regular rhythm Respiratory/Chest: chest wall non-tender, lungs clear, normal breath sounds Abdomen: normal bowel sounds, non tender, soft Extremities: normal inspection Edema: no edema noted Arm (L), no edema noted Arm (R), no edema noted Leg (L), no edema noted Leg (R), no edema noted Pedal (L), no edema noted Pedal (R), no edema noted Generalized Neurologic: motor weakness Skin: normal pigmentation, warm/dry QUINTON HUMPHRIES Jun 26, 2017 14:49
--- NOTE | 2017-06-26 14:55 | Nephrology Progress Note ---
Assessment/Plan Assessment 1. Possible congestive heart failure exacerbation 2. Elevated bicarbonate is in response to severe respiratory acidosis. 3. Hypertension. 4. History of chronic obstructive pulmonary disease. Plan plan to continue lasix monitoring renal function monitoring electrolyte replace as need avoid any NSAID Subjective ROS Limited/Unobtainable: Yes Constitutional: Reports: no symptoms HEENT: Reports: no symptoms Genitourinary: Reports: no symptoms Neurologic/Psychiatric: Reports: no symptoms Subjective awake confused Objective Objective Last 24 Hour Vital Signs Date Time Temp Pulse Resp B/P (MAP) Pulse Ox O2 Delivery O2 Flow Rate FiO2 06/26/17 12:00 99.1 72 21 103/59 97 Room Air 06/26/17 08:00 99.7 60 18 101/55 96 Room Air 06/26/17 07:51 79 22 Nasal Cannula 3.0 32 06/26/17 07:51 Nasal Cannula 3.0 32 06/26/17 07:51 93 Nasal Cannula 3.0 32 06/26/17 04:00 98.4 66 20 107/52 92 Nasal Cannula 2.0 06/26/17 00:00 98.2 60 20 104/50 91 Room Air 06/25/17 20:04 Nasal Cannula 3.0 32 06/25/17 20:04 95 Nasal Cannula 3.0 32 06/25/17 20:00 98.1 69 20 101/54 95 Nasal Cannula 5.0 06/25/17 19:10 82 22 Nasal Cannula 3.0 32 06/25/17 16:02 97.7 80 16 107/58 99 Nasal Cannula Intake and Output 06/26/17 06/27/17 19:00 07:00 Intake Total 82.5 ml Balance 82.5 ml IV Total 82.5 ml Laboratory Tests 06/26/17 05:35: White Blood Count 7.9, Red Blood Count 2.56L, Hemoglobin 8.9L, Hematocrit 27.1L , Mean Corpuscular Volume 106H, Mean Corpuscular Hemoglobin 34.7H, Mean Corpuscular Hemoglobin Concent 32.9, Red Cell Distribution Width 13.5, Platelet Count 279, Mean Platelet Volume 5.9L, Neutrophils (%) (Auto) 70.4, Lymphocytes ( %) (Auto) 21.9, Monocytes (%) (Auto) 7.1, Eosinophils (%) (Auto) 0.0, Basophils (%) (Auto) 0.5, Erythrocyte Sedimentation Rate 128H, Sodium Level 138, Potassium Level 4.5, Chloride Level 100, Carbon Dioxide Level 35H, Anion Gap 3L , Blood Urea Nitrogen 23H, Creatinine 1.1, Estimat Glomerular Filtration Rate > 60, Glucose Level 126H, Calcium Level 9.0, Phosphorus Level 3.5, Magnesium Level 2.3, Total Bilirubin 0.2, Aspartate Amino Transf (AST/SGOT) 10L, Alanine Aminotransferase (ALT/SGPT) 12, Alkaline Phosphatase 89, C-Reactive Protein, Quantitative 7.3H, Total Protein 6.9, Albumin 2.1L, Globulin 4.8, Albumin/ Globulin Ratio 0.4L Height (Feet): 5 Height (Inches): 11.00 Weight (Pounds): 180 Objective HEAD AND NECK: No JVP. No LAD. No thyromegaly. Extraocular movements intact. Pupils are reactive to light and accommodation. LUNGS: Clear to auscultation. CARDIAC: Regular rate and rhythm. S1 and S2. No murmur. No rub. ABDOMEN: Soft, nontender, and nondistended. EXTREMITIES: No edema. No clubbing. No cyanosis. NEUROLOGIC: The patient opened up his eyes, not following verbal commands. RANCHO SYKES Jun 26, 2017 14:55
[2017-06-26 16:00] VITALS: BP 114/66
--- NOTE | 2017-06-26 17:32 | Progress Note ---
NOTE: JENI CISNEROS Hill Hare M.D. DR: SADIE JOB#: [id number] CC:
--- NOTE | 2017-06-26 17:32 | Progress Note ---
NOTE: JENI CISNEROS Hill Hare M.D. DR: SADIE JOB#: [id number] CC:
--- NOTE | 2017-06-26 17:32 | Progress Note ---
NOTE: JENI CISNEROS Hill Hare M.D. DR: SADIE JOB#: [id number] CC:
--- NOTE | 2017-06-26 17:42 | Infectious Diseases Prog Note ---
Assessment/Plan Problems: (1) HCAP (healthcare-associated pneumonia) Assessment & Plan: due to gram negative rods, on vancomycin, and zosyn, await sputum culture , repeated CXR showed worsening left pleural effusion , CT chest showed left complete lower lobe collapse, and partial collapse in ELA[place]. recommend bronchoscopy to remove possible mucous plug (2) Acute respiratory failure Assessment & Plan: due to pneumonia, continu vancomycin and zosyn monitor ABG, and CXR, taper steroids (3) UTI (urinary tract infection) Assessment & Plan: await urine culture, continue zosyn empirically (4) Sepsis Assessment & Plan: due to the above, continue wide spectrum antibiotics pending culture results (5) Fever Assessment & Plan: due to left lung collapse and possible mucous plug, already on zosyn and vancomycin, consider bronchoscopy and suctioning Subjective ROS Limited/Unobtainable: Yes Allergies: Coded Allergies: CHLORPROMAZINE (Verified Allergy, Unknown, 06/23/17) ERYTHROMYCIN BASE (Verified Allergy, Unknown, 06/23/17) Uncoded Allergies: TAPE (Allergy, Unknown, 06/23/17) Subjective he was up in bed, alert, not in distress , respond to deep stimulation, had low grad fever , coughing Objective Vital Signs Last 24 Hour Vital Signs Date Time Temp Pulse Resp B/P (MAP) Pulse Ox O2 Delivery O2 Flow Rate FiO2 06/26/17 16:00 97.9 60 17 114/66 100 Nasal Cannula 5.0 06/26/17 12:00 99.1 72 21 103/59 97 Room Air 06/26/17 08:00 99.7 60 18 101/55 96 Room Air 06/26/17 07:51 79 22 Nasal Cannula 3.0 32 06/26/17 07:51 Nasal Cannula 3.0 32 06/26/17 07:51 93 Nasal Cannula 3.0 32 06/26/17 04:00 98.4 66 20 107/52 92 Nasal Cannula 2.0 06/26/17 00:00 98.2 60 20 104/50 91 Room Air 06/25/17 20:04 Nasal Cannula 3.0 32 06/25/17 20:04 95 Nasal Cannula 3.0 32 06/25/17 20:00 98.1 69 20 101/54 95 Nasal Cannula 5.0 06/25/17 19:10 82 22 Nasal Cannula 3.0 32 Height (Feet): 5 Height (Inches): 11.00 Weight (Pounds): 180 General Appearance: WD/WN, no acute distress HEENT: normocephalic, atraumatic, anicteric, mucous membranes moist Respiratory/Chest: chest wall non-tender, no respiratory distress, no accessory muscle use, decreased breath sounds, crackles/rales Cardiovascular: normal peripheral pulses, normal rate, regular rhythm, no gallop/murmur, no JVD Abdomen: normal bowel sounds, soft, non tender, no organomegaly, non distended , no mass, no scars Extremities: no cyanosis, no clubbing Skin: no rash, no lesions Microbiology Date/Time Source Procedure Growth Status 06/24/17 04:00 Sputum Gram Stain - Final Resulted 06/24/17 04:00 Sputum Culture - Preliminary Gram Negative Bacillus 1 Resulted 06/24/17 14:55 Urine,Clean Catch Urine Culture - Preliminary NO GROWTH AFTER 24 HOURS Resulted 06/24/17 11:00 Indwelling Cath Urine Culture - Preliminary NO GROWTH AFTER 24 HOURS Resulted Laboratory Tests Test 06/26/17 05:35 White Blood Count 7.9 K/UL (4.8-10.8) Red Blood Count 2.56 M/UL (4.70-6.10) L Hemoglobin 8.9 G/DL (14.2-18.0) L Hematocrit 27.1 % (42.0-52.0) L Mean Corpuscular Volume 106 FL (80-99) H Mean Corpuscular Hemoglobin 34.7 PG (27.0-31.0) H Mean Corpuscular Hemoglobin Concent 32.9 G/DL (32.0-36.0) Red Cell Distribution Width 13.5 % (11.6-14.8) Platelet Count 279 K/UL (150-450) Mean Platelet Volume 5.9 FL (6.5-10.1) L Neutrophils (%) (Auto) 70.4 % (45.0-75.0) Lymphocytes (%) (Auto) 21.9 % (20.0-45.0) Monocytes (%) (Auto) 7.1 % (1.0-10.0) Eosinophils (%) (Auto) 0.0 % (0.0-3.0) Basophils (%) (Auto) 0.5 % (0.0-2.0) Erythrocyte Sedimentation Rate 128 MM/HR (0-20) H Sodium Level 138 MMOL/L (136-145) Potassium Level 4.5 MMOL/L (3.5-5.1) Chloride Level 100 MMOL/L (98-107) Carbon Dioxide Level 35 MMOL/L (21-32) H Anion Gap 3 (5-15) L Blood Urea Nitrogen 23 mg/dL (7-18) H Creatinine 1.1 MG/DL (0.55-1.30) Estimat Glomerular Filtration Rate > 60 mL/min (>60) Glucose Level 126 MG/DL (74-106) H Calcium Level 9.0 MG/DL (8.5-10.1) Phosphorus Level 3.5 MG/DL (2.5-4.9) Magnesium Level 2.3 MG/DL (1.8-2.4) Total Bilirubin 0.2 MG/DL (0.2-1.0) Aspartate Amino Transf (AST/SGOT) 10 U/L (15-37) L Alanine Aminotransferase (ALT/SGPT) 12 U/L (12-78) Alkaline Phosphatase 89 U/L (46-116) C-Reactive Protein, Quantitative 7.3 mg/dL (0.00-0.90) H Total Protein 6.9 G/DL (6.4-8.2) Albumin 2.1 G/DL (3.4-5.0) L Globulin 4.8 g/dL Albumin/Globulin Ratio 0.4 (1.0-2.7) L Current Medications Medications (Trade) Dose Ordered Sig/Karen Route PRN Reason Start Time Stop Time Status Last Admin Dose Admin Albuterol/ Ipratropium (DuoNeb 0.5-3(2.5)mg/3ml) 3 ml Q4H PRN HHN dyspnea 06/25/17 17:30 06/28/17 13:29 Carbamazepine (TEGretol) 200 mg FOUR TIMES A DAY ORAL 06/25/17 18:00 07/23/17 12:59 06/26/17 17:10 Dextrose (Dextrose 50%) STAT PRN IV Hypoglycemia 06/25/17 14:30 07/25/17 14:29 Docusate Sodium (Colace) 100 mg DAILY ORAL 06/26/17 09:00 07/24/17 08:59 06/26/17 09:00 Heparin Sodium (Porcine) (Heparin 5000 units/ml) 5,000 units EVERY 12 HOURS SUBQ 06/25/17 21:00 07/23/17 20:59 06/26/17 09:00 Levetiracetam (Keppra) 500 mg Q12HR ORAL 06/25/17 21:00 07/23/17 20:59 06/26/17 09:00 Lorazepam (Ativan 2mg/ml 1ml) 0.5 mg Q4H PRN IV For Anxiety 06/25/17 17:30 06/30/17 13:29 Methylprednisolone Sodium Succinate (Solu-MEDROL) 60 mg Q6H IV 06/25/17 18:00 07/23/17 17:59 06/26/17 17:10 Morphine Sulfate (Morphine Sulfate) 2 mg Q4H PRN IVP severe pain 7-10 06/25/17 17:30 06/30/17 13:29 Nitroglycerin (Ntg) 0.4 mg Q5M X 3 DOSES PRN SL Prn Chest Pain 06/25/17 14:00 07/23/17 13:29 Olanzapine (ZyPREXA) 20 mg BEDTIME ORAL 06/26/17 21:00 07/24/17 08:59 Ondansetron HCl (Zofran) 4 mg Q6H PRN IVP Nausea & Vomiting 06/25/17 14:30 07/23/17 14:29 Piperacillin Sod/ Tazobactam Sod 3.375 gm/Dextrose 110 ml @ 27.5 mls/hr EVERY 8 HOURS IVPB 06/25/17 22:00 07/02/17 21:59 06/26/17 14:05 Temazepam (Restoril) 15 mg HSPRN PRN ORAL Insomnia 06/25/17 21:00 06/30/17 20:59 Theophylline (Dane-Dur) 100 mg EVERY 12 HOURS ORAL 06/25/17 21:00 07/23/17 20:59 06/26/17 09:00 Vancomycin HCl (Vanco rx to dose) 1 ea DAILY PRN MISC Per rx protocol 06/25/17 14:30 07/25/17 14:29 Vancomycin HCl/ Dextrose 250 ml @ 166.667 mls/hr Q24H IVPB 06/26/17 04:00 07/01/17 03:59 06/26/17 03:31 Dafne Orourke M.D. Jun 26, 2017 17:42
--- NOTE | 2017-06-26 18:53 | Pulmonology Progress Note ---
Assessment/Plan Problems: (1) Acute respiratory failure (2) Sepsis (3) UTI (urinary tract infection) (4) Schizophrenia (5) Limited mobility (6) History of pacemaker (7) shelter resident Assessment/Plan afebrile BP better improving taper oxygen check cultures respiratory treatment Anemia w/u med/surg medications examined laboratories examined Subjective ROS Limited/Unobtainable: No Constitutional: Reports: fever, chills, fatigue Respiratory: Reports: shortness of breath Genitourinary: Reports: dysuria, frequency, urgency Allergies: Coded Allergies: CHLORPROMAZINE (Verified Allergy, Unknown, 06/23/17) ERYTHROMYCIN BASE (Verified Allergy, Unknown, 06/23/17) Uncoded Allergies: TAPE (Allergy, Unknown, 06/23/17) Objective Last 24 Hour Vital Signs Date Time Temp Pulse Resp B/P (MAP) Pulse Ox O2 Delivery O2 Flow Rate FiO2 06/26/17 16:00 97.9 60 17 114/66 100 Nasal Cannula 5.0 06/26/17 12:00 99.1 72 21 103/59 97 Room Air 06/26/17 08:00 99.7 60 18 101/55 96 Room Air 06/26/17 07:51 79 22 Nasal Cannula 3.0 32 06/26/17 07:51 Nasal Cannula 3.0 32 06/26/17 07:51 93 Nasal Cannula 3.0 32 06/26/17 04:00 98.4 66 20 107/52 92 Nasal Cannula 2.0 06/26/17 00:00 98.2 60 20 104/50 91 Room Air 06/25/17 20:04 Nasal Cannula 3.0 32 06/25/17 20:04 95 Nasal Cannula 3.0 32 06/25/17 20:00 98.1 69 20 101/54 95 Nasal Cannula 5.0 06/25/17 19:10 82 22 Nasal Cannula 3.0 32 Intake and Output 06/26/17 06/27/17 19:00 07:00 Intake Total 82.5 ml Balance 82.5 ml IV Total 82.5 ml General Appearance: no acute distress HEENT: normocephalic, atraumatic, PERRL Respiratory/Chest: chest wall non-tender, decreased breath sounds, accessory muscle use, crackles/rales, rhonchi Cardiovascular: normal peripheral pulses, normal rate, regular rhythm, no JVD Abdomen: normal bowel sounds, soft, non tender, no organomegaly, non distended , no mass Genitourinary: normal external genitalia Extremities: no cyanosis Skin: no rash, no lesions Neurologic/Psychiatric: education paraprofessional II-XII grossly normal, no motor/sensory deficits Microbiology Date/Time Source Procedure Growth Status 06/24/17 04:00 Sputum Gram Stain - Final Resulted 06/24/17 04:00 Sputum Culture - Preliminary Gram Negative Bacillus 1 Resulted 06/24/17 14:55 Urine,Clean Catch Urine Culture - Preliminary NO GROWTH AFTER 24 HOURS Resulted 06/24/17 11:00 Indwelling Cath Urine Culture - Preliminary NO GROWTH AFTER 24 HOURS Resulted Laboratory Tests 06/26/17 05:35: White Blood Count 7.9, Red Blood Count 2.56L, Hemoglobin 8.9L, Hematocrit 27.1L , Mean Corpuscular Volume 106H, Mean Corpuscular Hemoglobin 34.7H, Mean Corpuscular Hemoglobin Concent 32.9, Red Cell Distribution Width 13.5, Platelet Count 279, Mean Platelet Volume 5.9L, Neutrophils (%) (Auto) 70.4, Lymphocytes ( %) (Auto) 21.9, Monocytes (%) (Auto) 7.1, Eosinophils (%) (Auto) 0.0, Basophils (%) (Auto) 0.5, Erythrocyte Sedimentation Rate 128H, Sodium Level 138, Potassium Level 4.5, Chloride Level 100, Carbon Dioxide Level 35H, Anion Gap 3L , Blood Urea Nitrogen 23H, Creatinine 1.1, Estimat Glomerular Filtration Rate > 60, Glucose Level 126H, Calcium Level 9.0, Phosphorus Level 3.5, Magnesium Level 2.3, Total Bilirubin 0.2, Aspartate Amino Transf (AST/SGOT) 10L, Alanine Aminotransferase (ALT/SGPT) 12, Alkaline Phosphatase 89, C-Reactive Protein, Quantitative 7.3H, Total Protein 6.9, Albumin 2.1L, Globulin 4.8, Albumin/ Globulin Ratio 0.4L Current Medications Medications (Trade) Dose Ordered Sig/Karen Route PRN Reason Start Time Stop Time Status Last Admin Dose Admin Albuterol/ Ipratropium (DuoNeb 0.5-3(2.5)mg/3ml) 3 ml Q4H PRN HHN dyspnea 06/25/17 17:30 06/28/17 13:29 Carbamazepine (TEGretol) 200 mg FOUR TIMES A DAY ORAL 06/25/17 18:00 07/23/17 12:59 06/26/17 17:10 Dextrose (Dextrose 50%) STAT PRN IV Hypoglycemia 06/25/17 14:30 07/25/17 14:29 Docusate Sodium (Colace) 100 mg DAILY ORAL 06/26/17 09:00 07/24/17 08:59 06/26/17 09:00 Heparin Sodium (Porcine) (Heparin 5000 units/ml) 5,000 units EVERY 12 HOURS SUBQ 06/25/17 21:00 07/23/17 20:59 06/26/17 09:00 Levetiracetam (Keppra) 500 mg Q12HR ORAL 06/25/17 21:00 07/23/17 20:59 06/26/17 09:00 Lorazepam (Ativan 2mg/ml 1ml) 0.5 mg Q4H PRN IV For Anxiety 06/25/17 17:30 06/30/17 13:29 Methylprednisolone Sodium Succinate (Solu-MEDROL) 60 mg Q6H IV 06/25/17 18:00 07/23/17 17:59 06/26/17 17:10 Morphine Sulfate (Morphine Sulfate) 2 mg Q4H PRN IVP severe pain 7-10 06/25/17 17:30 06/30/17 13:29 Nitroglycerin (Ntg) 0.4 mg Q5M X 3 DOSES PRN SL Prn Chest Pain 06/25/17 14:00 07/23/17 13:29 Olanzapine (ZyPREXA) 20 mg BEDTIME ORAL 06/26/17 21:00 07/24/17 08:59 Ondansetron HCl (Zofran) 4 mg Q6H PRN IVP Nausea & Vomiting 06/25/17 14:30 07/23/17 14:29 Piperacillin Sod/ Tazobactam Sod 3.375 gm/Dextrose 110 ml @ 27.5 mls/hr EVERY 8 HOURS IVPB 06/25/17 22:00 07/02/17 21:59 06/26/17 14:05 Temazepam (Restoril) 15 mg HSPRN PRN ORAL Insomnia 06/25/17 21:00 06/30/17 20:59 Theophylline (Dane-Dur) 100 mg EVERY 12 HOURS ORAL 06/25/17 21:00 07/23/17 20:59 06/26/17 09:00 Vancomycin HCl (Vanco rx to dose) 1 ea DAILY PRN MISC Per rx protocol 06/25/17 14:30 07/25/17 14:29 Vancomycin HCl/ Dextrose 250 ml @ 166.667 mls/hr Q24H IVPB 06/26/17 04:00 07/01/17 03:59 06/26/17 03:31 GWEN MARTE Jun 26, 2017 18:53
[2017-06-26 20:00] VITALS: BP 103/59
--- NOTE | 2017-06-26 23:21 | Cardiology Progress Note ---
Assessment/Plan Assessment/Plan 1. Sinus tachycardia, due to sepsis/bilateral pneumonia, resolved. 2. Hypotension, most likely septic shock, resolved, 2D echocardiography shows normal LV systolic function with LVEF at 60-65%. Subjective Subjective Transferred to non-telemetry bed. No cardiac events. Objective Last 24 Hour Vital Signs Date Time Temp Pulse Resp B/P (MAP) Pulse Ox O2 Delivery O2 Flow Rate FiO2 06/26/17 20:00 97.7 60 18 103/59 97 Nasal Cannula 06/26/17 19:52 Nasal Cannula 3.0 32 06/26/17 19:51 95 Nasal Cannula 3.0 32 06/26/17 19:28 63 20 Nasal Cannula 3.0 32 06/26/17 16:00 97.9 60 17 114/66 100 Nasal Cannula 5.0 06/26/17 12:00 99.1 72 21 103/59 97 Room Air 06/26/17 08:00 99.7 60 18 101/55 96 Room Air 06/26/17 07:51 79 22 Nasal Cannula 3.0 32 06/26/17 07:51 Nasal Cannula 3.0 32 06/26/17 07:51 93 Nasal Cannula 3.0 32 06/26/17 04:00 98.4 66 20 107/52 92 Nasal Cannula 2.0 06/26/17 00:00 98.2 60 20 104/50 91 Room Air Intake and Output 06/26/17 06/27/17 19:00 07:00 Intake Total 192.5 ml Balance 192.5 ml IV Total 192.5 ml 2D Echo: LVEF 60-65%, mild TR with RVSP at 33 mmHg Laboratory Tests Test 06/26/17 05:35 White Blood Count 7.9 K/UL (4.8-10.8) Red Blood Count 2.56 M/UL (4.70-6.10) L Hemoglobin 8.9 G/DL (14.2-18.0) L Hematocrit 27.1 % (42.0-52.0) L Mean Corpuscular Volume 106 FL (80-99) H Mean Corpuscular Hemoglobin 34.7 PG (27.0-31.0) H Mean Corpuscular Hemoglobin Concent 32.9 G/DL (32.0-36.0) Red Cell Distribution Width 13.5 % (11.6-14.8) Platelet Count 279 K/UL (150-450) Mean Platelet Volume 5.9 FL (6.5-10.1) L Neutrophils (%) (Auto) 70.4 % (45.0-75.0) Lymphocytes (%) (Auto) 21.9 % (20.0-45.0) Monocytes (%) (Auto) 7.1 % (1.0-10.0) Eosinophils (%) (Auto) 0.0 % (0.0-3.0) Basophils (%) (Auto) 0.5 % (0.0-2.0) Erythrocyte Sedimentation Rate 128 MM/HR (0-20) H Sodium Level 138 MMOL/L (136-145) Potassium Level 4.5 MMOL/L (3.5-5.1) Chloride Level 100 MMOL/L (98-107) Carbon Dioxide Level 35 MMOL/L (21-32) H Anion Gap 3 (5-15) L Blood Urea Nitrogen 23 mg/dL (7-18) H Creatinine 1.1 MG/DL (0.55-1.30) Estimat Glomerular Filtration Rate > 60 mL/min (>60) Glucose Level 126 MG/DL (74-106) H Calcium Level 9.0 MG/DL (8.5-10.1) Phosphorus Level 3.5 MG/DL (2.5-4.9) Magnesium Level 2.3 MG/DL (1.8-2.4) Total Bilirubin 0.2 MG/DL (0.2-1.0) Aspartate Amino Transf (AST/SGOT) 10 U/L (15-37) L Alanine Aminotransferase (ALT/SGPT) 12 U/L (12-78) Alkaline Phosphatase 89 U/L (46-116) C-Reactive Protein, Quantitative 7.3 mg/dL (0.00-0.90) H Total Protein 6.9 G/DL (6.4-8.2) Albumin 2.1 G/DL (3.4-5.0) L Globulin 4.8 g/dL Albumin/Globulin Ratio 0.4 (1.0-2.7) L Microbiology Date/Time Source Procedure Growth Status 06/24/17 04:00 Sputum Gram Stain - Final Resulted 06/24/17 04:00 Sputum Culture - Preliminary Gram Negative Bacillus 1 Resulted 06/24/17 14:55 Urine,Clean Catch Urine Culture - Preliminary NO GROWTH AFTER 24 HOURS Resulted 06/24/17 11:00 Indwelling Cath Urine Culture - Preliminary NO GROWTH AFTER 24 HOURS Resulted Objective HEENT: Atraumatic and normocephalic. ENT, pupils are equal, round, and reactive to light and accommodation. Pale conjunctiva. NECK: JVP cannot be assessed. No carotid bruit. Carotid upstrokes 2+ bilaterally. LUNGS: Bilateral rhonchi is seen. There is use of accessory muscle of respiration. CVS: Normal S1, S2. Tachycardic. I cannot appreciate any murmurs, gallops, or rubs. PMI is at fourth intercostal space in the midclavicular line. ABDOMEN: Soft, nontender, and nondistended. No hepatosplenomegaly. Positive bowel sounds. EXTREMITIES: No evidence of edema, clubbing, or cyanosis. CALLUM BARON Jun 26, 2017 23:21
[2017-06-27] VITALS: BP 116/49
[2017-06-27] MEDS: Solu-MEDROL 125mg Inj IV SCH ×5 (00:16→23:52)
[2017-06-27] MEDS: Vancomycin 1250mg/D5W 250ml 250 ML IVPB SCH (03:14)
[2017-06-27 04:00] VITALS: BP 109/60
[2017-06-27] MEDS: Piperacillin/Tazobactam 3.375 GM in D5W 110 ML IVPB SCH ×3 (05:10→21:40)
[2017-06-27 07:38] LABS: BASOPHILS % (AUTO) 0.5 % (0.0-2.0); HEMATOCRIT 30.6 % (42.0-52.0); HEMOGLOBIN 9.8 G/DL (14.2-18.0); LYMPHOCYTES % (AUTO) 28.2 % (20.0-45.0); MEAN CORPUSCULAR VOLUME 105 FL (80-99); MONOCYTES % (AUTO) 7.5 % (1.0-10.0); NEUTROPHILS % (AUTO) 63.9 % (45.0-75.0); PLATELET COUNT 293 K/UL (150-450); RED BLOOD COUNT 2.92 M/UL (4.70-6.10); RED CELL DISTRIBUTION WIDTH 13.2 % (11.6-14.8); WHITE BLOOD COUNT 6.2 K/UL (4.8-10.8)
[2017-06-27 07:52] LABS: ANION GAP 1 (5-15); BLOOD UREA NITROGEN 26 mg/dL (7-18); CALCIUM 9.2 MG/DL (8.5-10.1); CARBON DIOXIDE 36 MMOL/L (21-32); CHLORIDE 99 MMOL/L (98-107); CREATININE 1.1 MG/DL (0.55-1.30); POTASSIUM 4.5 MMOL/L (3.5-5.1); SODIUM 136 MMOL/L (136-145)
--- NOTE | 2017-06-27 07:53 | Nephrology Progress Note ---
Assessment/Plan Assessment 1. Possible congestive heart failure exacerbation 2. Elevated bicarbonate is in response to severe respiratory acidosis. 3. Hypertension. 4. History of chronic obstructive pulmonary disease. Plan plan to continue lasix fallow up with chem 7 result monitoring renal function monitoring electrolyte replace as need avoid any NSAID Subjective ROS Limited/Unobtainable: Yes Constitutional: Reports: no symptoms HEENT: Reports: no symptoms Genitourinary: Reports: no symptoms Neurologic/Psychiatric: Reports: no symptoms Subjective awake confused Objective Objective Last 24 Hour Vital Signs Date Time Temp Pulse Resp B/P (MAP) Pulse Ox O2 Delivery O2 Flow Rate FiO2 06/27/17 04:00 97.9 65 18 109/60 98 Nasal Cannula 2.0 06/27/17 00:00 96.9 60 18 116/49 99 Nasal Cannula 2.0 06/26/17 20:00 97.7 60 18 103/59 97 Nasal Cannula 06/26/17 19:52 Nasal Cannula 3.0 32 06/26/17 19:51 95 Nasal Cannula 3.0 32 06/26/17 19:28 63 20 Nasal Cannula 3.0 32 06/26/17 16:00 97.9 60 17 114/66 100 Nasal Cannula 5.0 06/26/17 12:00 99.1 72 21 103/59 97 Room Air 06/26/17 08:00 99.7 60 18 101/55 96 Room Air Intake and Output 06/27/17 06/28/17 19:00 07:00 Intake Total 27.5 ml Balance 27.5 ml IV Total 27.5 ml Laboratory Tests 06/27/17 05:30: White Blood Count 6.2, Red Blood Count 2.92L, Hemoglobin 9.8L, Hematocrit 30.6L , Mean Corpuscular Volume 105H, Mean Corpuscular Hemoglobin 33.6H, Mean Corpuscular Hemoglobin Concent 32.1, Red Cell Distribution Width 13.2, Platelet Count 293, Mean Platelet Volume 5.6L, Neutrophils (%) (Auto) 63.9, Lymphocytes ( %) (Auto) 28.2, Monocytes (%) (Auto) 7.5, Eosinophils (%) (Auto) 0.0, Basophils (%) (Auto) 0.5, Sodium Level [Pending], Potassium Level [Pending], Chloride Level [Pending], Carbon Dioxide Level [Pending], Blood Urea Nitrogen [Pending], Creatinine [Pending], Estimat Glomerular Filtration Rate [Pending], Glucose Level [Pending], Calcium Level [Pending] Height (Feet): 5 Height (Inches): 11.00 Weight (Pounds): 180 Objective HEAD AND NECK: No JVP. No LAD. No thyromegaly. Extraocular movements intact. Pupils are reactive to light and accommodation. LUNGS: Clear to auscultation. CARDIAC: Regular rate and rhythm. S1 and S2. No murmur. No rub. ABDOMEN: Soft, nontender, and nondistended. EXTREMITIES: No edema. No clubbing. No cyanosis. NEUROLOGIC: The patient opened up his eyes, not following verbal commands. RANCHO SYKES Jun 27, 2017 07:53
[2017-06-27] MEDS: Docusate 100mg/10ml Liq ORAL SCH ×2 (08:22→08:48)
[2017-06-27] MEDS: carBAMazepine 200mg tab ORAL SCH ×4 (08:23→21:40)
[2017-06-27] MEDS: Theophylline ER 100mg ORAL SCH ×2 (08:23→21:40)
[2017-06-27] MEDS: Heparin 5000 units/ml inj SUBQ SCH ×2 (08:26→21:43)
[2017-06-27 08:50] VITALS: BP 111/71
--- NOTE | 2017-06-27 11:55 | Diagnostic Imaging Report ---
Indication: SOB Technique: One view of the chest Comparison: 06/25/2017 Findings: Extensive opacification of the left lung is again demonstrated. Abrupt cut off of the left mainstem bronchus is again demonstrated. Some residual aerated lung is seen in the left lung apex, left midlung, and medial lung base. Right lung and pleural space remain unchanged, largely clear with some slight interstitial prominence in the right suprahilar region. Left chest pacemaker is again demonstrated. Inferior vena cava filter is again demonstrated Impression: Unchanged, over 2 days, findings as above.
[2017-06-27 12:02] VITALS: BP 114/68
--- NOTE | 2017-06-27 14:19 | General Progress Note ---
Assessment/Plan Problem List: (1) Respiratory failure ICD Codes: J96.90 - Respiratory failure, unspecified, unspecified whether with hypoxia or hypercapnia SNOMED: 386161348 (2) Sepsis ICD Codes: A41.9 - Sepsis, unspecified organism SNOMED: 94509297 (3) UTI (urinary tract infection) ICD Codes: N39.0 - Urinary tract infection, site not specified SNOMED: 92064987 (4) Schizophrenia ICD Codes: F20.9 - Schizophrenia, unspecified SNOMED: 60457268 (5) History of pacemaker ICD Codes: Z95.0 - Presence of cardiac pacemaker SNOMED: 227265131 (6) Limited mobility ICD Codes: Z74.09 - Other reduced mobility SNOMED: 0306700 Status: stable, progressing, tolerating diet Assessment/Plan o2 pul tx ot pt diet abx cbc bmp am dc plan Subjective Constitutional: Reports: weakness Allergies: Coded Allergies: CHLORPROMAZINE (Verified Allergy, Unknown, 06/23/17) ERYTHROMYCIN BASE (Verified Allergy, Unknown, 06/23/17) Uncoded Allergies: TAPE (Allergy, Unknown, 06/23/17) All Systems: reviewed and negative except above Subjective o2nc sleepy Objective Last 24 Hour Vital Signs Date Time Temp Pulse Resp B/P (MAP) Pulse Ox O2 Delivery O2 Flow Rate FiO2 06/27/17 12:02 98.4 65 20 114/68 92 Nasal Cannula 5.0 06/27/17 08:50 98.0 60 20 111/71 90 Nasal Cannula 5.0 06/27/17 07:50 60 18 Nasal Cannula 3.0 32 06/27/17 07:49 94 Nasal Cannula 4.0 06/27/17 07:48 Nasal Cannula 4.0 06/27/17 04:00 97.9 65 18 109/60 98 Nasal Cannula 2.0 06/27/17 00:00 96.9 60 18 116/49 99 Nasal Cannula 2.0 06/26/17 20:00 97.7 60 18 103/59 97 Nasal Cannula 06/26/17 19:52 Nasal Cannula 3.0 32 06/26/17 19:51 95 Nasal Cannula 3.0 32 06/26/17 19:28 63 20 Nasal Cannula 3.0 32 06/26/17 16:00 97.9 60 17 114/66 100 Nasal Cannula 5.0 Intake and Output 06/27/17 06/28/17 19:00 07:00 Intake Total 387.5 ml Balance 387.5 ml Intake Oral 360 ml IV Total 27.5 ml Laboratory Tests 06/27/17 05:30: White Blood Count 6.2, Red Blood Count 2.92L, Hemoglobin 9.8L, Hematocrit 30.6L , Mean Corpuscular Volume 105H, Mean Corpuscular Hemoglobin 33.6H, Mean Corpuscular Hemoglobin Concent 32.1, Red Cell Distribution Width 13.2, Platelet Count 293, Mean Platelet Volume 5.6L, Neutrophils (%) (Auto) 63.9, Lymphocytes ( %) (Auto) 28.2, Monocytes (%) (Auto) 7.5, Eosinophils (%) (Auto) 0.0, Basophils (%) (Auto) 0.5, Sodium Level 136, Potassium Level 4.5, Chloride Level 99, Carbon Dioxide Level 36H, Anion Gap 1L, Blood Urea Nitrogen 26H, Creatinine 1.1 , Estimat Glomerular Filtration Rate > 60, Glucose Level 133H, Calcium Level 9.2 Height (Feet): 5 Height (Inches): 11.00 Weight (Pounds): 180 General Appearance: lethargic Neck: normal alignment Cardiovascular: normal peripheral pulses, normal rate, regular rhythm Respiratory/Chest: chest wall non-tender, lungs clear, normal breath sounds Abdomen: normal bowel sounds, non tender, soft Extremities: normal range of motion Edema: no edema noted Arm (L), no edema noted Arm (R), no edema noted Leg (L), no edema noted Leg (R), no edema noted Pedal (L), no edema noted Pedal (R), no edema noted Generalized Neurologic: responsive, motor weakness Skin: normal pigmentation, warm/dry QUINTON HUMPHRIES Jun 27, 2017 14:19
--- NOTE | 2017-06-27 14:19 | General Progress Note ---
Assessment/Plan Problem List: (1) Respiratory failure ICD Codes: J96.90 - Respiratory failure, unspecified, unspecified whether with hypoxia or hypercapnia SNOMED: 539681776 (2) Sepsis ICD Codes: A41.9 - Sepsis, unspecified organism SNOMED: 70587231 (3) UTI (urinary tract infection) ICD Codes: N39.0 - Urinary tract infection, site not specified SNOMED: 83776638 (4) Schizophrenia ICD Codes: F20.9 - Schizophrenia, unspecified SNOMED: 49062972 (5) History of pacemaker ICD Codes: Z95.0 - Presence of cardiac pacemaker SNOMED: 684746967 (6) Limited mobility ICD Codes: Z74.09 - Other reduced mobility SNOMED: 6513337 Status: stable, progressing, tolerating diet Assessment/Plan o2 pul tx ot pt diet abx cbc bmp am dc plan Subjective Constitutional: Reports: weakness Allergies: Coded Allergies: CHLORPROMAZINE (Verified Allergy, Unknown, 06/23/17) ERYTHROMYCIN BASE (Verified Allergy, Unknown, 06/23/17) Uncoded Allergies: TAPE (Allergy, Unknown, 06/23/17) All Systems: reviewed and negative except above Subjective o2nc sleepy Objective Last 24 Hour Vital Signs Date Time Temp Pulse Resp B/P (MAP) Pulse Ox O2 Delivery O2 Flow Rate FiO2 06/27/17 12:02 98.4 65 20 114/68 92 Nasal Cannula 5.0 06/27/17 08:50 98.0 60 20 111/71 90 Nasal Cannula 5.0 06/27/17 07:50 60 18 Nasal Cannula 3.0 32 06/27/17 07:49 94 Nasal Cannula 4.0 06/27/17 07:48 Nasal Cannula 4.0 06/27/17 04:00 97.9 65 18 109/60 98 Nasal Cannula 2.0 06/27/17 00:00 96.9 60 18 116/49 99 Nasal Cannula 2.0 06/26/17 20:00 97.7 60 18 103/59 97 Nasal Cannula 06/26/17 19:52 Nasal Cannula 3.0 32 06/26/17 19:51 95 Nasal Cannula 3.0 32 06/26/17 19:28 63 20 Nasal Cannula 3.0 32 06/26/17 16:00 97.9 60 17 114/66 100 Nasal Cannula 5.0 Intake and Output 06/27/17 06/28/17 19:00 07:00 Intake Total 387.5 ml Balance 387.5 ml Intake Oral 360 ml IV Total 27.5 ml Laboratory Tests 06/27/17 05:30: White Blood Count 6.2, Red Blood Count 2.92L, Hemoglobin 9.8L, Hematocrit 30.6L , Mean Corpuscular Volume 105H, Mean Corpuscular Hemoglobin 33.6H, Mean Corpuscular Hemoglobin Concent 32.1, Red Cell Distribution Width 13.2, Platelet Count 293, Mean Platelet Volume 5.6L, Neutrophils (%) (Auto) 63.9, Lymphocytes ( %) (Auto) 28.2, Monocytes (%) (Auto) 7.5, Eosinophils (%) (Auto) 0.0, Basophils (%) (Auto) 0.5, Sodium Level 136, Potassium Level 4.5, Chloride Level 99, Carbon Dioxide Level 36H, Anion Gap 1L, Blood Urea Nitrogen 26H, Creatinine 1.1 , Estimat Glomerular Filtration Rate > 60, Glucose Level 133H, Calcium Level 9.2 Height (Feet): 5 Height (Inches): 11.00 Weight (Pounds): 180 General Appearance: lethargic Neck: normal alignment Cardiovascular: normal peripheral pulses, normal rate, regular rhythm Respiratory/Chest: chest wall non-tender, lungs clear, normal breath sounds Abdomen: normal bowel sounds, non tender, soft Extremities: normal range of motion Edema: no edema noted Arm (L), no edema noted Arm (R), no edema noted Leg (L), no edema noted Leg (R), no edema noted Pedal (L), no edema noted Pedal (R), no edema noted Generalized Neurologic: responsive, motor weakness Skin: normal pigmentation, warm/dry QUINTON HUMPHRIES Jun 27, 2017 14:19
--- NOTE | 2017-06-27 14:19 | General Progress Note ---
Assessment/Plan Problem List: (1) Respiratory failure ICD Codes: J96.90 - Respiratory failure, unspecified, unspecified whether with hypoxia or hypercapnia SNOMED: 022698676 (2) Sepsis ICD Codes: A41.9 - Sepsis, unspecified organism SNOMED: 92823062 (3) UTI (urinary tract infection) ICD Codes: N39.0 - Urinary tract infection, site not specified SNOMED: 91862486 (4) Schizophrenia ICD Codes: F20.9 - Schizophrenia, unspecified SNOMED: 55650670 (5) History of pacemaker ICD Codes: Z95.0 - Presence of cardiac pacemaker SNOMED: 866489849 (6) Limited mobility ICD Codes: Z74.09 - Other reduced mobility SNOMED: 9931932 Status: stable, progressing, tolerating diet Assessment/Plan o2 pul tx ot pt diet abx cbc bmp am dc plan Subjective Constitutional: Reports: weakness Allergies: Coded Allergies: CHLORPROMAZINE (Verified Allergy, Unknown, 06/23/17) ERYTHROMYCIN BASE (Verified Allergy, Unknown, 06/23/17) Uncoded Allergies: TAPE (Allergy, Unknown, 06/23/17) All Systems: reviewed and negative except above Subjective o2nc sleepy Objective Last 24 Hour Vital Signs Date Time Temp Pulse Resp B/P (MAP) Pulse Ox O2 Delivery O2 Flow Rate FiO2 06/27/17 12:02 98.4 65 20 114/68 92 Nasal Cannula 5.0 06/27/17 08:50 98.0 60 20 111/71 90 Nasal Cannula 5.0 06/27/17 07:50 60 18 Nasal Cannula 3.0 32 06/27/17 07:49 94 Nasal Cannula 4.0 06/27/17 07:48 Nasal Cannula 4.0 06/27/17 04:00 97.9 65 18 109/60 98 Nasal Cannula 2.0 06/27/17 00:00 96.9 60 18 116/49 99 Nasal Cannula 2.0 06/26/17 20:00 97.7 60 18 103/59 97 Nasal Cannula 06/26/17 19:52 Nasal Cannula 3.0 32 06/26/17 19:51 95 Nasal Cannula 3.0 32 06/26/17 19:28 63 20 Nasal Cannula 3.0 32 06/26/17 16:00 97.9 60 17 114/66 100 Nasal Cannula 5.0 Intake and Output 06/27/17 06/28/17 19:00 07:00 Intake Total 387.5 ml Balance 387.5 ml Intake Oral 360 ml IV Total 27.5 ml Laboratory Tests 06/27/17 05:30: White Blood Count 6.2, Red Blood Count 2.92L, Hemoglobin 9.8L, Hematocrit 30.6L , Mean Corpuscular Volume 105H, Mean Corpuscular Hemoglobin 33.6H, Mean Corpuscular Hemoglobin Concent 32.1, Red Cell Distribution Width 13.2, Platelet Count 293, Mean Platelet Volume 5.6L, Neutrophils (%) (Auto) 63.9, Lymphocytes ( %) (Auto) 28.2, Monocytes (%) (Auto) 7.5, Eosinophils (%) (Auto) 0.0, Basophils (%) (Auto) 0.5, Sodium Level 136, Potassium Level 4.5, Chloride Level 99, Carbon Dioxide Level 36H, Anion Gap 1L, Blood Urea Nitrogen 26H, Creatinine 1.1 , Estimat Glomerular Filtration Rate > 60, Glucose Level 133H, Calcium Level 9.2 Height (Feet): 5 Height (Inches): 11.00 Weight (Pounds): 180 General Appearance: lethargic Neck: normal alignment Cardiovascular: normal peripheral pulses, normal rate, regular rhythm Respiratory/Chest: chest wall non-tender, lungs clear, normal breath sounds Abdomen: normal bowel sounds, non tender, soft Extremities: normal range of motion Edema: no edema noted Arm (L), no edema noted Arm (R), no edema noted Leg (L), no edema noted Leg (R), no edema noted Pedal (L), no edema noted Pedal (R), no edema noted Generalized Neurologic: responsive, motor weakness Skin: normal pigmentation, warm/dry QUINTON HUMPHRIES Jun 27, 2017 14:19
--- NOTE | 2017-06-27 15:30 | Cardiology Progress Note ---
Assessment/Plan Assessment/Plan 1. Sinus tachycardia, resolved. 2. Hypotension, resolved, 2D echocardiography shows normal LV systolic function with LVEF at 60-65%. The patient can be discharged from the cardiology standpoint. Subjective Subjective No cardiac events. DC planning is considered. Not on telemetry unit. Objective Last 24 Hour Vital Signs Date Time Temp Pulse Resp B/P (MAP) Pulse Ox O2 Delivery O2 Flow Rate FiO2 06/27/17 12:02 98.4 65 20 114/68 92 Nasal Cannula 5.0 06/27/17 08:50 98.0 60 20 111/71 90 Nasal Cannula 5.0 06/27/17 07:50 60 18 Nasal Cannula 3.0 32 06/27/17 07:49 94 Nasal Cannula 4.0 06/27/17 07:48 Nasal Cannula 4.0 06/27/17 04:00 97.9 65 18 109/60 98 Nasal Cannula 2.0 06/27/17 00:00 96.9 60 18 116/49 99 Nasal Cannula 2.0 06/26/17 20:00 97.7 60 18 103/59 97 Nasal Cannula 06/26/17 19:52 Nasal Cannula 3.0 32 06/26/17 19:51 95 Nasal Cannula 3.0 32 06/26/17 19:28 63 20 Nasal Cannula 3.0 32 06/26/17 16:00 97.9 60 17 114/66 100 Nasal Cannula 5.0 Intake and Output 06/27/17 06/28/17 19:00 07:00 Intake Total 387.5 ml Balance 387.5 ml Intake Oral 360 ml IV Total 27.5 ml 2D Echo: LVEF 60-65%, mild TR with RVSP at 33 mmHg Laboratory Tests Test 06/27/17 05:30 White Blood Count 6.2 K/UL (4.8-10.8) Red Blood Count 2.92 M/UL (4.70-6.10) L Hemoglobin 9.8 G/DL (14.2-18.0) L Hematocrit 30.6 % (42.0-52.0) L Mean Corpuscular Volume 105 FL (80-99) H Mean Corpuscular Hemoglobin 33.6 PG (27.0-31.0) H Mean Corpuscular Hemoglobin Concent 32.1 G/DL (32.0-36.0) Red Cell Distribution Width 13.2 % (11.6-14.8) Platelet Count 293 K/UL (150-450) Mean Platelet Volume 5.6 FL (6.5-10.1) L Neutrophils (%) (Auto) 63.9 % (45.0-75.0) Lymphocytes (%) (Auto) 28.2 % (20.0-45.0) Monocytes (%) (Auto) 7.5 % (1.0-10.0) Eosinophils (%) (Auto) 0.0 % (0.0-3.0) Basophils (%) (Auto) 0.5 % (0.0-2.0) Sodium Level 136 MMOL/L (136-145) Potassium Level 4.5 MMOL/L (3.5-5.1) Chloride Level 99 MMOL/L (98-107) Carbon Dioxide Level 36 MMOL/L (21-32) H Anion Gap 1 (5-15) L Blood Urea Nitrogen 26 mg/dL (7-18) H Creatinine 1.1 MG/DL (0.55-1.30) Estimat Glomerular Filtration Rate > 60 mL/min (>60) Glucose Level 133 MG/DL (74-106) H Calcium Level 9.2 MG/DL (8.5-10.1) Objective HEENT: Atraumatic and normocephalic. ENT, pupils are equal, round, and reactive to light and accommodation. Pale conjunctiva. NECK: JVP cannot be assessed. No carotid bruit. Carotid upstrokes 2+ bilaterally. LUNGS: Bilateral rhonchi is seen. There is use of accessory muscle of respiration. CVS: Normal S1, S2. Tachycardic. I cannot appreciate any murmurs, gallops, or rubs. PMI is at fourth intercostal space in the midclavicular line. ABDOMEN: Soft, nontender, and nondistended. No hepatosplenomegaly. Positive bowel sounds. EXTREMITIES: No evidence of edema, clubbing, or cyanosis. CALLUM BARON Jun 27, 2017 15:30
[2017-06-27 16:00] VITALS: BP 99/57
--- NOTE | 2017-06-27 16:07 | Infectious Diseases Prog Note ---
Assessment/Plan Problems: (1) HCAP (healthcare-associated pneumonia) Assessment & Plan: due to pseudomonas aeruginosa on zosyn, and vancomycin , repeated CXR showed worsening left lung opacifications , CT chest showed left complete lower lobe collapse, and partial collapse in ELAINE. recommend bronchoscopy to remove possible mucous plug, will treat with antibiotics for two weeks (2) Acute respiratory failure Assessment & Plan: due to pneumonia, and lung collapse , continu antibiotics , monitor ABG, and CXR, taper steroids (3) UTI (urinary tract infection) Assessment & Plan: less likely with negative urine culture, already on zosyn empirically (4) Sepsis Assessment & Plan: due to the above, continue wide spectrum antibiotics pending culture results (5) Fever Assessment & Plan: due to left lung collapse and possible mucous plug, already on zosyn and vancomycin, consider bronchoscopy and suctioning Subjective ROS Limited/Unobtainable: Yes Allergies: Coded Allergies: CHLORPROMAZINE (Verified Allergy, Unknown, 06/23/17) ERYTHROMYCIN BASE (Verified Allergy, Unknown, 06/23/17) Uncoded Allergies: TAPE (Allergy, Unknown, 06/23/17) Subjective he was lying in bed , unresponsive, not in distress , respond only to deep stimulation, no fever , coughing Objective Vital Signs Last 24 Hour Vital Signs Date Time Temp Pulse Resp B/P (MAP) Pulse Ox O2 Delivery O2 Flow Rate FiO2 06/27/17 12:02 98.4 65 20 114/68 92 Nasal Cannula 5.0 06/27/17 08:50 98.0 60 20 111/71 90 Nasal Cannula 5.0 06/27/17 07:50 60 18 Nasal Cannula 3.0 32 06/27/17 07:49 94 Nasal Cannula 4.0 06/27/17 07:48 Nasal Cannula 4.0 06/27/17 04:00 97.9 65 18 109/60 98 Nasal Cannula 2.0 06/27/17 00:00 96.9 60 18 116/49 99 Nasal Cannula 2.0 06/26/17 20:00 97.7 60 18 103/59 97 Nasal Cannula 06/26/17 19:52 Nasal Cannula 3.0 32 06/26/17 19:51 95 Nasal Cannula 3.0 32 06/26/17 19:28 63 20 Nasal Cannula 3.0 32 06/26/17 16:00 97.9 60 17 114/66 100 Nasal Cannula 5.0 Height (Feet): 5 Height (Inches): 11.00 Weight (Pounds): 180 General Appearance: WD/WN, no acute distress HEENT: normocephalic, atraumatic, anicteric, mucous membranes moist Respiratory/Chest: chest wall non-tender, no respiratory distress, no accessory muscle use, decreased breath sounds, crackles/rales Cardiovascular: normal peripheral pulses, normal rate, regular rhythm, no gallop/murmur, no JVD Abdomen: normal bowel sounds, soft, non tender, no organomegaly, non distended , no mass, no scars Extremities: no cyanosis, no clubbing Skin: no rash, no lesions, no ulcers Neurologic/Psychiatric: unresponsiveness Laboratory Tests Test 06/27/17 05:30 White Blood Count 6.2 K/UL (4.8-10.8) Red Blood Count 2.92 M/UL (4.70-6.10) L Hemoglobin 9.8 G/DL (14.2-18.0) L Hematocrit 30.6 % (42.0-52.0) L Mean Corpuscular Volume 105 FL (80-99) H Mean Corpuscular Hemoglobin 33.6 PG (27.0-31.0) H Mean Corpuscular Hemoglobin Concent 32.1 G/DL (32.0-36.0) Red Cell Distribution Width 13.2 % (11.6-14.8) Platelet Count 293 K/UL (150-450) Mean Platelet Volume 5.6 FL (6.5-10.1) L Neutrophils (%) (Auto) 63.9 % (45.0-75.0) Lymphocytes (%) (Auto) 28.2 % (20.0-45.0) Monocytes (%) (Auto) 7.5 % (1.0-10.0) Eosinophils (%) (Auto) 0.0 % (0.0-3.0) Basophils (%) (Auto) 0.5 % (0.0-2.0) Sodium Level 136 MMOL/L (136-145) Potassium Level 4.5 MMOL/L (3.5-5.1) Chloride Level 99 MMOL/L (98-107) Carbon Dioxide Level 36 MMOL/L (21-32) H Anion Gap 1 (5-15) L Blood Urea Nitrogen 26 mg/dL (7-18) H Creatinine 1.1 MG/DL (0.55-1.30) Estimat Glomerular Filtration Rate > 60 mL/min (>60) Glucose Level 133 MG/DL (74-106) H Calcium Level 9.2 MG/DL (8.5-10.1) Current Medications Medications (Trade) Dose Ordered Sig/Karen Route PRN Reason Start Time Stop Time Status Last Admin Dose Admin Albuterol/ Ipratropium (DuoNeb 0.5-3(2.5)mg/3ml) 3 ml Q4H PRN HHN dyspnea 06/25/17 17:30 06/28/17 13:29 Carbamazepine (TEGretol) 200 mg FOUR TIMES A DAY ORAL 06/25/17 18:00 07/23/17 12:59 06/27/17 13:31 Dextrose (Dextrose 50%) STAT PRN IV Hypoglycemia 06/25/17 14:30 07/25/17 14:29 Docusate Sodium (Colace) 100 mg DAILY ORAL 06/26/17 09:00 07/24/17 08:59 06/26/17 09:00 Heparin Sodium (Porcine) (Heparin 5000 units/ml) 5,000 units EVERY 12 HOURS SUBQ 06/25/17 21:00 07/23/17 20:59 06/27/17 08:26 Levetiracetam (Keppra) 500 mg Q12HR ORAL 06/25/17 21:00 07/23/17 20:59 06/27/17 08:23 Lorazepam (Ativan 2mg/ml 1ml) 0.5 mg Q4H PRN IV For Anxiety 06/25/17 17:30 06/30/17 13:29 Methylprednisolone Sodium Succinate (Solu-MEDROL) 60 mg Q6H IV 06/25/17 18:00 07/23/17 17:59 06/27/17 12:39 Morphine Sulfate (Morphine Sulfate) 2 mg Q4H PRN IVP severe pain 7-10 06/25/17 17:30 06/30/17 13:29 Nitroglycerin (Ntg) 0.4 mg Q5M X 3 DOSES PRN SL Prn Chest Pain 06/25/17 14:00 07/23/17 13:29 Olanzapine (ZyPREXA) 20 mg BEDTIME ORAL 06/26/17 21:00 07/24/17 08:59 06/26/17 20:36 Ondansetron HCl (Zofran) 4 mg Q6H PRN IVP Nausea & Vomiting 06/25/17 14:30 07/23/17 14:29 Piperacillin Sod/ Tazobactam Sod 3.375 gm/Dextrose 110 ml @ 27.5 mls/hr EVERY 8 HOURS IVPB 06/25/17 22:00 07/02/17 21:59 06/27/17 13:32 Temazepam (Restoril) 15 mg HSPRN PRN ORAL Insomnia 06/25/17 21:00 06/30/17 20:59 Theophylline (Dane-Dur) 100 mg EVERY 12 HOURS ORAL 06/25/17 21:00 07/23/17 20:59 06/27/17 08:23 Vancomycin HCl (Vanco rx to dose) 1 ea DAILY PRN MISC Per rx protocol 06/25/17 14:30 07/25/17 14:29 Vancomycin HCl/ Dextrose 250 ml @ 166.667 mls/hr Q24H IVPB 06/26/17 04:00 07/01/17 03:59 06/27/17 03:14 Dafne Orourke M.D. Jun 27, 2017 16:07
[2017-06-27] MEDS ORDERED: CARBAMAZEP200 MG/10 ORAL (16:29)
[2017-06-27] MEDS ORDERED: DUONEB 0.5-3(2.53 ML HHN (16:33)
[2017-06-27] MEDS ORDERED: ATIVAN0.5 MG IVINF (16:36)
[2017-06-27] MEDS ORDERED: SOLU-MEDROL500 MG IV (16:38)
[2017-06-27] MEDS ORDERED: MORPHINE SU4 MG/1 ML IV (16:40)
[2017-06-27] MEDS ORDERED: NITROGLYCERIN0.4 MG SL (16:43)
[2017-06-27] MEDS ORDERED: OLANZAPINE20 MG ORAL (16:44)
[2017-06-27] MEDS ORDERED: TEMAZEPAM15 MG ORAL (16:47)
[2017-06-27] MEDS ORDERED: THEOPHYLLI80 MG/151 PO (16:49)
[2017-06-27] MEDS ORDERED: VANCOMYCIN1 GM/2502 IVPB (16:51)
[2017-06-27] MEDS ORDERED: TEGRETOL100 MG/5 M PO (16:52)
[2017-06-27] MEDS ORDERED: ZOSYN 3.373.375 GM/1 IVPB (16:54)
--- NOTE | 2017-06-27 17:45 | Pulmonology Progress Note ---
Assessment/Plan Assessment/Plan ASSESSMENT acute hypercapnic respiratory failure requring BiPAP sepsis Pneumonia with pseudomonas left lung collapse COPD exacerbation hypotension, possible shock -resolved encephalopathy schizophrenia anemia of chronic disease pacemaker seizure disorder PLAN OF CARE [facility] floor off Bipap, on O2 via NC, titrate to keep sat above 92% CT chest and fup CXR with evidence of left lung near complete opacification continue HHN, and add CPT elevate L side of the chest on 2 pillows fup with CXR taper steroids Theophylline a/tussive prn abx ID follows sputum cx + Pseudomonas, urine cx negative, blood cx negative ECHO with pEF 60-65% and RVSP of 33 cardio follows per cardio no evidence of CHF exacerbation nephro follows monitor lytes, replace as needed, avoid nephrotoxic BP better seizure precautions, continue Keppra and Tegretol anemia w/up c/w anemia of chronic disease monitor counts, transfuse prn psych follows, diagnosed with schizophrenia and encephalopathy, optimized medication regimen DVT prophylaxis case discussed and evaluated by supervising physician Subjective Allergies: Coded Allergies: CHLORPROMAZINE (Verified Allergy, Unknown, 06/23/17) ERYTHROMYCIN BASE (Verified Allergy, Unknown, 06/23/17) Uncoded Allergies: TAPE (Allergy, Unknown, 06/23/17) Subjective leukocytosis resolved, off BiPAP on O2 via NC BP better CT chest and CXR with near complete opacification left lung Objective Last 24 Hour Vital Signs Date Time Temp Pulse Resp B/P (MAP) Pulse Ox O2 Delivery O2 Flow Rate FiO2 06/27/17 16:00 97.9 64 18 99/57 90 Nasal Cannula 5.0 06/27/17 12:02 98.4 65 20 114/68 92 Nasal Cannula 5.0 06/27/17 08:50 98.0 60 20 111/71 90 Nasal Cannula 5.0 06/27/17 07:50 60 18 Nasal Cannula 3.0 32 06/27/17 07:49 94 Nasal Cannula 4.0 06/27/17 07:48 Nasal Cannula 4.0 06/27/17 04:00 97.9 65 18 109/60 98 Nasal Cannula 2.0 06/27/17 00:00 96.9 60 18 116/49 99 Nasal Cannula 2.0 06/26/17 20:00 97.7 60 18 103/59 97 Nasal Cannula 06/26/17 19:52 Nasal Cannula 3.0 32 06/26/17 19:51 95 Nasal Cannula 3.0 32 06/26/17 19:28 63 20 Nasal Cannula 3.0 32 Intake and Output 06/27/17 06/28/17 19:00 07:00 Intake Total 387.5 ml Balance 387.5 ml Intake Oral 360 ml IV Total 27.5 ml General Appearance: no acute distress HEENT: normocephalic, atraumatic, anicteric Respiratory/Chest: no accessory muscle use, decreased breath sounds, other - left chest pacemaker Cardiovascular: normal rate, regular rhythm, no JVD Abdomen: normal bowel sounds, soft, non tender, non distended Extremities: no edema Neurologic/Psychiatric: abnormal gait Laboratory Tests 06/27/17 05:30: White Blood Count 6.2, Red Blood Count 2.92L, Hemoglobin 9.8L, Hematocrit 30.6L , Mean Corpuscular Volume 105H, Mean Corpuscular Hemoglobin 33.6H, Mean Corpuscular Hemoglobin Concent 32.1, Red Cell Distribution Width 13.2, Platelet Count 293, Mean Platelet Volume 5.6L, Neutrophils (%) (Auto) 63.9, Lymphocytes ( %) (Auto) 28.2, Monocytes (%) (Auto) 7.5, Eosinophils (%) (Auto) 0.0, Basophils (%) (Auto) 0.5, Sodium Level 136, Potassium Level 4.5, Chloride Level 99, Carbon Dioxide Level 36H, Anion Gap 1L, Blood Urea Nitrogen 26H, Creatinine 1.1 , Estimat Glomerular Filtration Rate > 60, Glucose Level 133H, Calcium Level 9.2 Current Medications Medications (Trade) Dose Ordered Sig/Karen Route PRN Reason Start Time Stop Time Status Last Admin Dose Admin Albuterol/ Ipratropium (DuoNeb 0.5-3(2.5)mg/3ml) 3 ml Q4H PRN HHN dyspnea 06/25/17 17:30 06/28/17 13:29 Carbamazepine (TEGretol) 200 mg FOUR TIMES A DAY ORAL 06/25/17 18:00 07/23/17 12:59 06/27/17 13:31 Dextrose (Dextrose 50%) STAT PRN IV Hypoglycemia 06/25/17 14:30 07/25/17 14:29 Docusate Sodium (Colace) 100 mg DAILY ORAL 06/26/17 09:00 11/8/17 08:59 06/26/17 09:00 Heparin Sodium (Porcine) (Heparin 5000 units/ml) 5,000 units EVERY 12 HOURS SUBQ 06/25/17 21:00 07/23/17 20:59 06/27/17 08:26 Levetiracetam (Keppra) 500 mg Q12HR ORAL 06/25/17 21:00 07/23/17 20:59 06/27/17 08:23 Lorazepam (Ativan 2mg/ml 1ml) 0.5 mg Q4H PRN IV For Anxiety 06/25/17 17:30 06/30/17 13:29 Methylprednisolone Sodium Succinate (Solu-MEDROL) 60 mg Q6H IV 06/25/17 18:00 07/23/17 17:59 06/27/17 12:39 Morphine Sulfate (Morphine Sulfate) 2 mg Q4H PRN IVP severe pain 7-10 06/25/17 17:30 06/30/17 13:29 Nitroglycerin (Ntg) 0.4 mg Q5M X 3 DOSES PRN SL Prn Chest Pain 06/25/17 14:00 07/23/17 13:29 Olanzapine (ZyPREXA) 20 mg BEDTIME ORAL 06/26/17 21:00 07/24/17 08:59 06/26/17 20:36 Ondansetron HCl (Zofran) 4 mg Q6H PRN IVP Nausea & Vomiting 06/25/17 14:30 07/23/17 14:29 Piperacillin Sod/ Tazobactam Sod 3.375 gm/Dextrose 110 ml @ 27.5 mls/hr EVERY 8 HOURS IVPB 06/25/17 22:00 07/02/17 21:59 06/27/17 13:32 Temazepam (Restoril) 15 mg HSPRN PRN ORAL Insomnia 06/25/17 21:00 06/30/17 20:59 Theophylline (Dane-Dur) 100 mg EVERY 12 HOURS ORAL 06/25/17 21:00 07/23/17 20:59 06/27/17 08:23 Vancomycin HCl (Vanco rx to dose) 1 ea DAILY PRN MISC Per rx protocol 06/25/17 14:30 07/25/17 14:29 Vancomycin HCl/ Dextrose 250 ml @ 166.667 mls/hr Q24H IVPB 06/26/17 04:00 07/01/17 03:59 06/27/17 03:14 Junior (CatrachitaKell saunders NP Jun 27, 2017 17:45
[2017-06-27 19:49] VITALS: BP 102/65
[2017-06-28] VITALS (7 sets, daily range): BP systolic 90–137; BP diastolic 51–72
--- NOTE | 2017-06-28 00:27 | General Progress Note ---
Assessment/Plan Status: doing well, stable, progressing Assessment/Plan Dementia schizophrenia -zyprexa Subjective Date patient seen: Jun 27, 2017 Constitutional: Reports: weakness Neurologic/Psychiatric: Reports: anxiety, depressed, emotional problems Allergies: Coded Allergies: CHLORPROMAZINE (Verified Allergy, Unknown, 06/23/17) ERYTHROMYCIN BASE (Verified Allergy, Unknown, 06/23/17) Uncoded Allergies: TAPE (Allergy, Unknown, 06/23/17) Subjective the pt is alert watching tv follows command. more stable today and less agitated. Objective Last 24 Hour Vital Signs Date Time Temp Pulse Resp B/P (MAP) Pulse Ox O2 Delivery O2 Flow Rate FiO2 06/27/17 20:49 92 Nasal Cannula 5.0 40 06/27/17 20:49 Nasal Cannula 5.0 40 06/27/17 20:47 64 18 Nasal Cannula 5.0 40 06/27/17 19:49 97.2 65 20 102/65 93 Nasal Cannula 5.0 06/27/17 16:00 97.9 64 18 99/57 90 Nasal Cannula 5.0 06/27/17 12:02 98.4 65 20 114/68 92 Nasal Cannula 5.0 06/27/17 08:50 98.0 60 20 111/71 90 Nasal Cannula 5.0 06/27/17 07:50 60 18 Nasal Cannula 3.0 32 06/27/17 07:49 94 Nasal Cannula 4.0 06/27/17 07:48 Nasal Cannula 4.0 06/27/17 04:00 97.9 65 18 109/60 98 Nasal Cannula 2.0 Laboratory Tests 06/27/17 05:30: White Blood Count 6.2, Red Blood Count 2.92L, Hemoglobin 9.8L, Hematocrit 30.6L , Mean Corpuscular Volume 105H, Mean Corpuscular Hemoglobin 33.6H, Mean Corpuscular Hemoglobin Concent 32.1, Red Cell Distribution Width 13.2, Platelet Count 293, Mean Platelet Volume 5.6L, Neutrophils (%) (Auto) 63.9, Lymphocytes ( %) (Auto) 28.2, Monocytes (%) (Auto) 7.5, Eosinophils (%) (Auto) 0.0, Basophils (%) (Auto) 0.5, Sodium Level 136, Potassium Level 4.5, Chloride Level 99, Carbon Dioxide Level 36H, Anion Gap 1L, Blood Urea Nitrogen 26H, Creatinine 1.1 , Estimat Glomerular Filtration Rate > 60, Glucose Level 133H, Calcium Level 9.2 Height (Feet): 5 Height (Inches): 11.00 Weight (Pounds): 180 General Appearance: no apparent distress, alert Neurologic: alert, oriented x 3, responsive, depressed affect Hill Hare M.D. Jun 28, 2017 00:27
[2017-06-28] MEDS ORDERED: Morphine Sulfate 2mg/ml Inj IVP PRN ×2 (00:49→12:00)
[2017-06-28] MEDS ORDERED: Albuterol/Ipratropium 3ml neb HHN PRN ×2 (00:49→12:00)
[2017-06-28] MEDS ORDERED: LORazepam Inj 2mg/ml 1ml IV PRN ×2 (00:49→12:00)
[2017-06-28] MEDS: Vancomycin 1250mg/D5W 250ml 250 ML IVPB SCH (04:31)
[2017-06-28] MEDS ORDERED: Solu-MEDROL 125mg Inj IV SCH (06:00)
[2017-06-28] MEDS: Piperacillin/Tazobactam 3.375 GM in D5W 110 ML IVPB SCH ×3 (06:14→22:14)
--- NOTE | 2017-06-28 07:17 | Nephrology Progress Note ---
Assessment/Plan Assessment 1. Possible congestive heart failure exacerbation 2. Elevated bicarbonate is in response to severe respiratory acidosis. 3. Hypertension. 4. History of chronic obstructive pulmonary disease. Plan plan to continue lasix fallow up with chem 7 result monitoring renal function monitoring electrolyte replace as need avoid any NSAID Subjective Subjective awake confused Objective Objective Last 24 Hour Vital Signs Date Time Temp Pulse Resp B/P (MAP) Pulse Ox O2 Delivery O2 Flow Rate FiO2 06/28/17 04:56 98.2 60 20 106/59 96 Nasal Cannula 5.0 06/28/17 00:00 98.4 60 21 107/67 97 Nasal Cannula 2.0 06/27/17 20:49 92 Nasal Cannula 5.0 40 06/27/17 20:49 Nasal Cannula 5.0 40 06/27/17 20:47 64 18 Nasal Cannula 5.0 40 06/27/17 19:49 97.2 65 20 102/65 93 Nasal Cannula 5.0 06/27/17 16:00 97.9 64 18 99/57 90 Nasal Cannula 5.0 06/27/17 12:02 98.4 65 20 114/68 92 Nasal Cannula 5.0 06/27/17 08:50 98.0 60 20 111/71 90 Nasal Cannula 5.0 06/27/17 07:50 60 18 Nasal Cannula 3.0 32 06/27/17 07:49 94 Nasal Cannula 4.0 06/27/17 07:48 Nasal Cannula 4.0 Height (Feet): 5 Height (Inches): 11.00 Weight (Pounds): 180 Objective HEAD AND NECK: No JVP. No LAD. No thyromegaly. Extraocular movements intact. Pupils are reactive to light and accommodation. LUNGS: Clear to auscultation. CARDIAC: Regular rate and rhythm. S1 and S2. No murmur. No rub. ABDOMEN: Soft, nontender, and nondistended. EXTREMITIES: No edema. No clubbing. No cyanosis. NEUROLOGIC: The patient opened up his eyes, not following verbal commands. RANCHO SYKES Jun 28, 2017 07:17
[2017-06-28] MEDS: Theophylline ER 100mg ORAL SCH ×2 (08:54→21:10)
[2017-06-28] MEDS: carBAMazepine 200mg tab ORAL SCH ×4 (08:54→21:10)
[2017-06-28] MEDS: Docusate 100mg/10ml Liq ORAL SCH (08:58)
[2017-06-28] MEDS: Heparin 5000 units/ml inj SUBQ SCH ×2 (08:58→21:11)
[2017-06-28 10:43] LABS: BASOPHILS % (AUTO) 0.9 % (0.0-2.0); HEMOGLOBIN 10.3 G/DL (14.2-18.0); LYMPHOCYTES % (AUTO) 24.7 % (20.0-45.0); MEAN CORPUSCULAR VOLUME 103 FL (80-99); MONOCYTES % (AUTO) 6.9 % (1.0-10.0); NEUTROPHILS % (AUTO) 67.5 % (45.0-75.0); PLATELET COUNT 356 K/UL (150-450); RED BLOOD COUNT 3.12 M/UL (4.70-6.10); RED CELL DISTRIBUTION WIDTH 12.8 % (11.6-14.8)
[2017-06-28 11:04] LABS: ANION GAP 6 (5-15); BLOOD UREA NITROGEN 26 mg/dL (7-18); CALCIUM 9.3 MG/DL (8.5-10.1); CARBON DIOXIDE 34 MMOL/L (21-32); CHLORIDE 100 MMOL/L (98-107); CREATININE 1.1 MG/DL (0.55-1.30); POTASSIUM 4.6 MMOL/L (3.5-5.1); SODIUM 140 MMOL/L (136-145)
--- NOTE | 2017-06-28 11:09 | Diagnostic Imaging Report ---
Indication: Dyspnea Comparison: 06/27/17 A single view chest radiograph was obtained. Findings: There is complete left which in the left hemithorax. There is volume loss with lucency at the left lung base medially which may be part of the stomach. Pacemaker again noted. Mild interstitial edema is present. Impression: No significant change from one day earlier
[2017-06-28] MEDS ORDERED: Nitroglycerin Subl 0.4mg tab SL PRN (12:00)
--- NOTE | 2017-06-28 13:58 | General Progress Note ---
Assessment/Plan Status: stable, progressing Assessment/Plan Dementia schizophrenia -zyprexa Subjective Neurologic/Psychiatric: Reports: anxiety, depressed, emotional problems Allergies: Coded Allergies: CHLORPROMAZINE (Verified Allergy, Unknown, 06/23/17) ERYTHROMYCIN BASE (Verified Allergy, Unknown, 06/23/17) Uncoded Allergies: TAPE (Allergy, Unknown, 06/23/17) Subjective the pt is alert watching tv follows command. more stable today and less agitated. Objective Last 24 Hour Vital Signs Date Time Temp Pulse Resp B/P (MAP) Pulse Ox O2 Delivery O2 Flow Rate FiO2 06/28/17 08:00 97.0 60 20 137/72 97 Room Air 06/28/17 06:50 68 18 Nasal Cannula 5.0 40 06/28/17 06:50 Nasal Cannula 5.0 40 06/28/17 06:50 92 Nasal Cannula 5.0 40 06/28/17 04:56 98.2 60 20 106/59 96 Nasal Cannula 5.0 06/28/17 00:00 98.4 60 21 107/67 97 Nasal Cannula 2.0 06/27/17 20:49 92 Nasal Cannula 5.0 40 06/27/17 20:49 Nasal Cannula 5.0 40 06/27/17 20:47 64 18 Nasal Cannula 5.0 40 06/27/17 19:49 97.2 65 20 102/65 93 Nasal Cannula 5.0 06/27/17 16:00 97.9 64 18 99/57 90 Nasal Cannula 5.0 Intake and Output 06/28/17 06/29/17 19:00 07:00 Intake Total 27.5 ml Balance 27.5 ml IV Total 27.5 ml Laboratory Tests 06/28/17 10:20: White Blood Count 6.0, Red Blood Count 3.12L, Hemoglobin 10.3L, Hematocrit 32.0L , Mean Corpuscular Volume 103H, Mean Corpuscular Hemoglobin 33.2H, Mean Corpuscular Hemoglobin Concent 32.3, Red Cell Distribution Width 12.8, Platelet Count 356, Mean Platelet Volume 5.5L, Neutrophils (%) (Auto) 67.5, Lymphocytes ( %) (Auto) 24.7, Monocytes (%) (Auto) 6.9, Eosinophils (%) (Auto) 0.0, Basophils (%) (Auto) 0.9, Sodium Level 140, Potassium Level 4.6, Chloride Level 100, Carbon Dioxide Level 34H, Anion Gap 6, Blood Urea Nitrogen 26H, Creatinine 1.1, Estimat Glomerular Filtration Rate > 60, Glucose Level 132H, Calcium Level 9.3, Vancomycin Level Trough 33.5H Height (Feet): 5 Height (Inches): 11.00 Weight (Pounds): 180 General Appearance: no apparent distress, alert, morbidly obese Neurologic: alert, oriented x 3, responsive, depressed affect Hill Hare M.D. Jun 28, 2017 13:58
--- NOTE | 2017-06-28 14:08 | General Progress Note ---
Assessment/Plan Problem List: (1) Respiratory failure ICD Codes: J96.90 - Respiratory failure, unspecified, unspecified whether with hypoxia or hypercapnia SNOMED: 934313382 (2) Sepsis ICD Codes: A41.9 - Sepsis, unspecified organism SNOMED: 16037614 (3) UTI (urinary tract infection) ICD Codes: N39.0 - Urinary tract infection, site not specified SNOMED: 34135841 (4) Schizophrenia ICD Codes: F20.9 - Schizophrenia, unspecified SNOMED: 09745566 (5) History of pacemaker ICD Codes: Z95.0 - Presence of cardiac pacemaker SNOMED: 322317747 (6) Limited mobility ICD Codes: Z74.09 - Other reduced mobility SNOMED: 3034189 Status: stable, progressing, tolerating diet Assessment/Plan o2 pul tx ot pt diet abx cbc bmp am dc plan Subjective Constitutional: Reports: weakness Allergies: Coded Allergies: CHLORPROMAZINE (Verified Allergy, Unknown, 06/23/17) ERYTHROMYCIN BASE (Verified Allergy, Unknown, 06/23/17) Uncoded Allergies: TAPE (Allergy, Unknown, 06/23/17) All Systems: reviewed and negative except above Subjective o2nc sleepy Objective Last 24 Hour Vital Signs Date Time Temp Pulse Resp B/P (MAP) Pulse Ox O2 Delivery O2 Flow Rate FiO2 06/28/17 08:00 97.0 60 20 137/72 97 Room Air 06/28/17 06:50 68 18 Nasal Cannula 5.0 40 06/28/17 06:50 Nasal Cannula 5.0 40 06/28/17 06:50 92 Nasal Cannula 5.0 40 06/28/17 04:56 98.2 60 20 106/59 96 Nasal Cannula 5.0 06/28/17 00:00 98.4 60 21 107/67 97 Nasal Cannula 2.0 06/27/17 20:49 92 Nasal Cannula 5.0 40 06/27/17 20:49 Nasal Cannula 5.0 40 06/27/17 20:47 64 18 Nasal Cannula 5.0 40 06/27/17 19:49 97.2 65 20 102/65 93 Nasal Cannula 5.0 06/27/17 16:00 97.9 64 18 99/57 90 Nasal Cannula 5.0 Intake and Output 06/28/17 06/29/17 19:00 07:00 Intake Total 27.5 ml Balance 27.5 ml IV Total 27.5 ml Laboratory Tests 06/28/17 10:20: White Blood Count 6.0, Red Blood Count 3.12L, Hemoglobin 10.3L, Hematocrit 32.0L , Mean Corpuscular Volume 103H, Mean Corpuscular Hemoglobin 33.2H, Mean Corpuscular Hemoglobin Concent 32.3, Red Cell Distribution Width 12.8, Platelet Count 356, Mean Platelet Volume 5.5L, Neutrophils (%) (Auto) 67.5, Lymphocytes ( %) (Auto) 24.7, Monocytes (%) (Auto) 6.9, Eosinophils (%) (Auto) 0.0, Basophils (%) (Auto) 0.9, Sodium Level 140, Potassium Level 4.6, Chloride Level 100, Carbon Dioxide Level 34H, Anion Gap 6, Blood Urea Nitrogen 26H, Creatinine 1.1, Estimat Glomerular Filtration Rate > 60, Glucose Level 132H, Calcium Level 9.3, Vancomycin Level Trough 33.5H Height (Feet): 5 Height (Inches): 11.00 Weight (Pounds): 180 General Appearance: lethargic EENT: normal ENT inspection Neck: normal alignment Cardiovascular: normal peripheral pulses, normal rate, regular rhythm Respiratory/Chest: chest wall non-tender, lungs clear, normal breath sounds Abdomen: normal bowel sounds, non tender, soft Extremities: normal inspection Edema: no edema noted Arm (L), no edema noted Arm (R), no edema noted Leg (L), no edema noted Leg (R), no edema noted Pedal (L), no edema noted Pedal (R), no edema noted Generalized Neurologic: motor weakness Skin: normal pigmentation, warm/dry QUINTON HUMPHRIES Jun 28, 2017 14:08
--- NOTE | 2017-06-28 14:08 | General Progress Note ---
Assessment/Plan Problem List: (1) Respiratory failure ICD Codes: J96.90 - Respiratory failure, unspecified, unspecified whether with hypoxia or hypercapnia SNOMED: 751122250 (2) Sepsis ICD Codes: A41.9 - Sepsis, unspecified organism SNOMED: 99344091 (3) UTI (urinary tract infection) ICD Codes: N39.0 - Urinary tract infection, site not specified SNOMED: 92376086 (4) Schizophrenia ICD Codes: F20.9 - Schizophrenia, unspecified SNOMED: 26073386 (5) History of pacemaker ICD Codes: Z95.0 - Presence of cardiac pacemaker SNOMED: 890018969 (6) Limited mobility ICD Codes: Z74.09 - Other reduced mobility SNOMED: 8584683 Status: stable, progressing, tolerating diet Assessment/Plan o2 pul tx ot pt diet abx cbc bmp am dc plan Subjective Constitutional: Reports: weakness Allergies: Coded Allergies: CHLORPROMAZINE (Verified Allergy, Unknown, 06/23/17) ERYTHROMYCIN BASE (Verified Allergy, Unknown, 06/23/17) Uncoded Allergies: TAPE (Allergy, Unknown, 06/23/17) All Systems: reviewed and negative except above Subjective o2nc sleepy Objective Last 24 Hour Vital Signs Date Time Temp Pulse Resp B/P (MAP) Pulse Ox O2 Delivery O2 Flow Rate FiO2 06/28/17 08:00 97.0 60 20 137/72 97 Room Air 06/28/17 06:50 68 18 Nasal Cannula 5.0 40 06/28/17 06:50 Nasal Cannula 5.0 40 06/28/17 06:50 92 Nasal Cannula 5.0 40 06/28/17 04:56 98.2 60 20 106/59 96 Nasal Cannula 5.0 06/28/17 00:00 98.4 60 21 107/67 97 Nasal Cannula 2.0 06/27/17 20:49 92 Nasal Cannula 5.0 40 06/27/17 20:49 Nasal Cannula 5.0 40 06/27/17 20:47 64 18 Nasal Cannula 5.0 40 06/27/17 19:49 97.2 65 20 102/65 93 Nasal Cannula 5.0 06/27/17 16:00 97.9 64 18 99/57 90 Nasal Cannula 5.0 Intake and Output 06/28/17 06/29/17 19:00 07:00 Intake Total 27.5 ml Balance 27.5 ml IV Total 27.5 ml Laboratory Tests 06/28/17 10:20: White Blood Count 6.0, Red Blood Count 3.12L, Hemoglobin 10.3L, Hematocrit 32.0L , Mean Corpuscular Volume 103H, Mean Corpuscular Hemoglobin 33.2H, Mean Corpuscular Hemoglobin Concent 32.3, Red Cell Distribution Width 12.8, Platelet Count 356, Mean Platelet Volume 5.5L, Neutrophils (%) (Auto) 67.5, Lymphocytes ( %) (Auto) 24.7, Monocytes (%) (Auto) 6.9, Eosinophils (%) (Auto) 0.0, Basophils (%) (Auto) 0.9, Sodium Level 140, Potassium Level 4.6, Chloride Level 100, Carbon Dioxide Level 34H, Anion Gap 6, Blood Urea Nitrogen 26H, Creatinine 1.1, Estimat Glomerular Filtration Rate > 60, Glucose Level 132H, Calcium Level 9.3, Vancomycin Level Trough 33.5H Height (Feet): 5 Height (Inches): 11.00 Weight (Pounds): 180 General Appearance: lethargic EENT: normal ENT inspection Neck: normal alignment Cardiovascular: normal peripheral pulses, normal rate, regular rhythm Respiratory/Chest: chest wall non-tender, lungs clear, normal breath sounds Abdomen: normal bowel sounds, non tender, soft Extremities: normal inspection Edema: no edema noted Arm (L), no edema noted Arm (R), no edema noted Leg (L), no edema noted Leg (R), no edema noted Pedal (L), no edema noted Pedal (R), no edema noted Generalized Neurologic: motor weakness Skin: normal pigmentation, warm/dry QUINTON HUMPHRIES Jun 28, 2017 14:08
--- NOTE | 2017-06-28 14:08 | General Progress Note ---
Assessment/Plan Problem List: (1) Respiratory failure ICD Codes: J96.90 - Respiratory failure, unspecified, unspecified whether with hypoxia or hypercapnia SNOMED: 302467786 (2) Sepsis ICD Codes: A41.9 - Sepsis, unspecified organism SNOMED: 36791288 (3) UTI (urinary tract infection) ICD Codes: N39.0 - Urinary tract infection, site not specified SNOMED: 81214604 (4) Schizophrenia ICD Codes: F20.9 - Schizophrenia, unspecified SNOMED: 67793287 (5) History of pacemaker ICD Codes: Z95.0 - Presence of cardiac pacemaker SNOMED: 014588856 (6) Limited mobility ICD Codes: Z74.09 - Other reduced mobility SNOMED: 0869253 Status: stable, progressing, tolerating diet Assessment/Plan o2 pul tx ot pt diet abx cbc bmp am dc plan Subjective Constitutional: Reports: weakness Allergies: Coded Allergies: CHLORPROMAZINE (Verified Allergy, Unknown, 06/23/17) ERYTHROMYCIN BASE (Verified Allergy, Unknown, 06/23/17) Uncoded Allergies: TAPE (Allergy, Unknown, 06/23/17) All Systems: reviewed and negative except above Subjective o2nc sleepy Objective Last 24 Hour Vital Signs Date Time Temp Pulse Resp B/P (MAP) Pulse Ox O2 Delivery O2 Flow Rate FiO2 06/28/17 08:00 97.0 60 20 137/72 97 Room Air 06/28/17 06:50 68 18 Nasal Cannula 5.0 40 06/28/17 06:50 Nasal Cannula 5.0 40 06/28/17 06:50 92 Nasal Cannula 5.0 40 06/28/17 04:56 98.2 60 20 106/59 96 Nasal Cannula 5.0 06/28/17 00:00 98.4 60 21 107/67 97 Nasal Cannula 2.0 06/27/17 20:49 92 Nasal Cannula 5.0 40 06/27/17 20:49 Nasal Cannula 5.0 40 06/27/17 20:47 64 18 Nasal Cannula 5.0 40 06/27/17 19:49 97.2 65 20 102/65 93 Nasal Cannula 5.0 06/27/17 16:00 97.9 64 18 99/57 90 Nasal Cannula 5.0 Intake and Output 06/28/17 06/29/17 19:00 07:00 Intake Total 27.5 ml Balance 27.5 ml IV Total 27.5 ml Laboratory Tests 06/28/17 10:20: White Blood Count 6.0, Red Blood Count 3.12L, Hemoglobin 10.3L, Hematocrit 32.0L , Mean Corpuscular Volume 103H, Mean Corpuscular Hemoglobin 33.2H, Mean Corpuscular Hemoglobin Concent 32.3, Red Cell Distribution Width 12.8, Platelet Count 356, Mean Platelet Volume 5.5L, Neutrophils (%) (Auto) 67.5, Lymphocytes ( %) (Auto) 24.7, Monocytes (%) (Auto) 6.9, Eosinophils (%) (Auto) 0.0, Basophils (%) (Auto) 0.9, Sodium Level 140, Potassium Level 4.6, Chloride Level 100, Carbon Dioxide Level 34H, Anion Gap 6, Blood Urea Nitrogen 26H, Creatinine 1.1, Estimat Glomerular Filtration Rate > 60, Glucose Level 132H, Calcium Level 9.3, Vancomycin Level Trough 33.5H Height (Feet): 5 Height (Inches): 11.00 Weight (Pounds): 180 General Appearance: lethargic EENT: normal ENT inspection Neck: normal alignment Cardiovascular: normal peripheral pulses, normal rate, regular rhythm Respiratory/Chest: chest wall non-tender, lungs clear, normal breath sounds Abdomen: normal bowel sounds, non tender, soft Extremities: normal inspection Edema: no edema noted Arm (L), no edema noted Arm (R), no edema noted Leg (L), no edema noted Leg (R), no edema noted Pedal (L), no edema noted Pedal (R), no edema noted Generalized Neurologic: motor weakness Skin: normal pigmentation, warm/dry QUINTON HUMPHRIES Jun 28, 2017 14:08
--- NOTE | 2017-06-28 14:19 | Pulmonology Progress Note ---
Assessment/Plan Assessment/Plan ASSESSMENT acute hypercapnic respiratory failure requiring BiPAP sepsis Pneumonia with pseudomonas left lung collapse COPD exacerbation hypotension, possible shock -resolved encephalopathy schizophrenia anemia of chronic disease pacemaker seizure disorder PLAN OF CARE [facility] floor off Bipap, on O2 via NC, titrate to keep sat above 92% CT chest and fup CXR with evidence of left lung near complete opacification continue HHN, and add CPT elevate L side of the chest on 2 pillows fup with CXR in am taper steroids Theophylline a/tussive prn abx ID follows sputum cx + Pseudomonas, urine cx negative, blood cx negative ECHO with pEF 60-65% and RVSP of 33 cardio follows per cardio no evidence of CHF exacerbation nephro follows monitor lytes, replace as needed, avoid nephrotoxic BP better seizure precautions, continue Keppra and Tegretol anemia w/up c/w anemia of chronic disease monitor counts, transfuse prn psych follows, diagnosed with schizophrenia and encephalopathy, optimized medication regimen DVT prophylaxis case discussed and evaluated by supervising physician Subjective Allergies: Coded Allergies: CHLORPROMAZINE (Verified Allergy, Unknown, 06/23/17) ERYTHROMYCIN BASE (Verified Allergy, Unknown, 06/23/17) Uncoded Allergies: TAPE (Allergy, Unknown, 06/23/17) Subjective leukocytosis resolved, off BiPAP on O2 via NC BP better CT chest and CXR with near complete opacification left lung no signs of respiratory distress Objective Last 24 Hour Vital Signs Date Time Temp Pulse Resp B/P (MAP) Pulse Ox O2 Delivery O2 Flow Rate FiO2 06/28/17 08:00 97.0 60 20 137/72 97 Room Air 06/28/17 06:50 68 18 Nasal Cannula 5.0 40 06/28/17 06:50 Nasal Cannula 5.0 40 06/28/17 06:50 92 Nasal Cannula 5.0 40 06/28/17 04:56 98.2 60 20 106/59 96 Nasal Cannula 5.0 06/28/17 00:00 98.4 60 21 107/67 97 Nasal Cannula 2.0 06/27/17 20:49 92 Nasal Cannula 5.0 40 06/27/17 20:49 Nasal Cannula 5.0 40 06/27/17 20:47 64 18 Nasal Cannula 5.0 40 06/27/17 19:49 97.2 65 20 102/65 93 Nasal Cannula 5.0 06/27/17 16:00 97.9 64 18 99/57 90 Nasal Cannula 5.0 Intake and Output 06/28/17 06/29/17 19:00 07:00 Intake Total 27.5 ml Balance 27.5 ml IV Total 27.5 ml Objective General Appearance: no acute distress HEENT: normocephalic, atraumatic, anicteric Respiratory/Chest: no accessory muscle use, decreased breath sounds, other - left chest pacemaker Cardiovascular: normal rate, regular rhythm, no JVD Abdomen: normal bowel sounds, soft, non tender, non distended Extremities: no edema Neurologic/Psychiatric: awake, responsive Laboratory Tests 06/28/17 10:20: White Blood Count 6.0, Red Blood Count 3.12L, Hemoglobin 10.3L, Hematocrit 32.0L , Mean Corpuscular Volume 103H, Mean Corpuscular Hemoglobin 33.2H, Mean Corpuscular Hemoglobin Concent 32.3, Red Cell Distribution Width 12.8, Platelet Count 356, Mean Platelet Volume 5.5L, Neutrophils (%) (Auto) 67.5, Lymphocytes ( %) (Auto) 24.7, Monocytes (%) (Auto) 6.9, Eosinophils (%) (Auto) 0.0, Basophils (%) (Auto) 0.9, Sodium Level 140, Potassium Level 4.6, Chloride Level 100, Carbon Dioxide Level 34H, Anion Gap 6, Blood Urea Nitrogen 26H, Creatinine 1.1, Estimat Glomerular Filtration Rate > 60, Glucose Level 132H, Calcium Level 9.3, Vancomycin Level Trough 33.5H Current Medications Medications (Trade) Dose Ordered Sig/Karen Route PRN Reason Start Time Stop Time Status Last Admin Dose Admin Albuterol/ Ipratropium (DuoNeb 0.5-3(2.5)mg/3ml) 3 ml Q4H PRN HHN dyspnea 06/28/17 12:00 06/30/17 11:59 Carbamazepine (TEGretol) 200 mg FOUR TIMES A DAY ORAL 06/28/17 13:00 07/23/17 12:59 Dextrose (Dextrose 50%) STAT PRN IV Hypoglycemia 06/28/17 12:00 07/25/17 11:59 Docusate Sodium (Colace) 100 mg DAILY ORAL 06/29/17 09:00 07/24/17 08:59 Heparin Sodium (Porcine) (Heparin 5000 units/ml) 5,000 units EVERY 12 HOURS SUBQ 06/28/17 21:00 07/23/17 20:59 Levetiracetam (Keppra) 500 mg Q12HR ORAL 06/28/17 21:00 07/23/17 20:59 Lorazepam (Ativan 2mg/ml 1ml) 0.5 mg Q4H PRN IV For Anxiety 06/28/17 12:00 07/02/17 11:59 Methylprednisolone Sodium Succinate (Solu-MEDROL) 60 mg Q8HR IV 06/28/17 14:00 07/23/17 17:59 Morphine Sulfate (Morphine Sulfate) 2 mg Q4H PRN IVP severe pain 7-10 06/28/17 12:00 07/02/17 11:59 Nitroglycerin (Ntg) 0.4 mg Q5M X 3 DOSES PRN SL Prn Chest Pain 06/28/17 12:00 07/23/17 13:29 Olanzapine (ZyPREXA) 20 mg BEDTIME ORAL 06/28/17 21:00 07/24/17 08:59 Ondansetron HCl (Zofran) 4 mg Q6H PRN IVP Nausea & Vomiting 06/28/17 12:00 07/23/17 11:59 Piperacillin Sod/ Tazobactam Sod 3.375 gm/Dextrose 110 ml @ 27.5 mls/hr EVERY 8 HOURS IVPB 06/28/17 14:00 07/02/17 21:59 Temazepam (Restoril) 15 mg HSPRN PRN ORAL Insomnia 06/29/17 20:00 07/03/17 19:59 Theophylline (Dane-Dur) 100 mg EVERY 12 HOURS ORAL 06/28/17 21:00 07/23/17 20:59 Vancomycin HCl (Vanco rx to dose) 1 ea DAILY PRN MISC Per rx protocol 06/28/17 13:00 07/28/17 12:59 Vancomycin HCl/ Dextrose 250 ml @ 166.667 mls/hr Q24H IVPB 06/29/17 10:00 07/04/17 09:59 Junior (Aisha)Kell NP Jun 28, 2017 14:19
[2017-06-28] MEDS: Solu-MEDROL 125mg Inj IV SCH ×2 (14:50→21:41)
[2017-06-28] MEDS ORDERED: Tubing IV Secondary IV ONE (16:13)
--- NOTE | 2017-06-28 18:18 | Infectious Diseases Prog Note ---
Assessment/Plan Problems: (1) HCAP (healthcare-associated pneumonia) Assessment & Plan: due to pseudomonas aeruginosa on zosyn, and vancomycin , repeated CXR showed worsening left lung opacifications , CT chest showed left complete lower lobe collapse, and partial collapse in [place]. recommend bronchoscopy to remove possible mucous plug, will treat with antibiotics for two weeks, EOT 07/07/17 (2) Acute respiratory failure Assessment & Plan: due to pneumonia, and lung collapse , continu antibiotics , monitor ABG, and CXR, taper steroids (3) UTI (urinary tract infection) Assessment & Plan: less likely with negative urine culture, already on zosyn empirically (4) Sepsis Assessment & Plan: due to the above, continue wide spectrum antibiotics pending culture results (5) Fever Assessment & Plan: due to left lung collapse and possible mucous plug, already on zosyn and vancomycin, consider bronchoscopy and suctioning Subjective ROS Limited/Unobtainable: Yes Allergies: Coded Allergies: CHLORPROMAZINE (Verified Allergy, Unknown, 06/23/17) ERYTHROMYCIN BASE (Verified Allergy, Unknown, 06/23/17) Uncoded Allergies: TAPE (Allergy, Unknown, 06/23/17) Subjective he was lying in bed , unresponsive, not in distress , respond only to deep stimulation, no fever , coughing Objective Vital Signs Last 24 Hour Vital Signs Date Time Temp Pulse Resp B/P (MAP) Pulse Ox O2 Delivery O2 Flow Rate FiO2 06/28/17 16:00 97.8 65 19 118/51 92 Nasal Cannula 5.0 06/28/17 15:43 60 06/28/17 12:30 97.7 69 20 107/59 96 Nasal Cannula 5.0 06/28/17 08:00 97.0 60 20 137/72 97 Room Air 06/28/17 06:50 68 18 Nasal Cannula 5.0 40 06/28/17 06:50 Nasal Cannula 5.0 40 06/28/17 06:50 92 Nasal Cannula 5.0 40 06/28/17 04:56 98.2 60 20 106/59 96 Nasal Cannula 5.0 06/28/17 00:00 98.4 60 21 107/67 97 Nasal Cannula 2.0 06/27/17 20:49 92 Nasal Cannula 5.0 40 06/27/17 20:49 Nasal Cannula 5.0 40 06/27/17 20:47 64 18 Nasal Cannula 5.0 40 06/27/17 19:49 97.2 65 20 102/65 93 Nasal Cannula 5.0 Height (Feet): 5 Height (Inches): 11.00 Weight (Pounds): 180 General Appearance: WD/WN, no acute distress HEENT: normocephalic, atraumatic, anicteric, mucous membranes moist, EOMI, pharynx normal, supple, no JVD Respiratory/Chest: chest wall non-tender, lungs clear, normal breath sounds, no respiratory distress, no accessory muscle use Cardiovascular: normal peripheral pulses, normal rate, regular rhythm, no gallop/murmur, no JVD Abdomen: normal bowel sounds, soft, non tender, no organomegaly, non distended , no mass, no scars Extremities: no cyanosis, no clubbing Skin: no lesions, no ulcers Neurologic/Psychiatric: alert, oriented x 3, responsive Lymphatic: no neck adenopathy, no groin adenopathy Musculoskeletal: normal muscle bulk, no effusion Laboratory Tests Test 06/28/17 10:20 White Blood Count 6.0 K/UL (4.8-10.8) Red Blood Count 3.12 M/UL (4.70-6.10) L Hemoglobin 10.3 G/DL (14.2-18.0) L Hematocrit 32.0 % (42.0-52.0) L Mean Corpuscular Volume 103 FL (80-99) H Mean Corpuscular Hemoglobin 33.2 PG (27.0-31.0) H Mean Corpuscular Hemoglobin Concent 32.3 G/DL (32.0-36.0) Red Cell Distribution Width 12.8 % (11.6-14.8) Platelet Count 356 K/UL (150-450) Mean Platelet Volume 5.5 FL (6.5-10.1) L Neutrophils (%) (Auto) 67.5 % (45.0-75.0) Lymphocytes (%) (Auto) 24.7 % (20.0-45.0) Monocytes (%) (Auto) 6.9 % (1.0-10.0) Eosinophils (%) (Auto) 0.0 % (0.0-3.0) Basophils (%) (Auto) 0.9 % (0.0-2.0) Sodium Level 140 MMOL/L (136-145) Potassium Level 4.6 MMOL/L (3.5-5.1) Chloride Level 100 MMOL/L (98-107) Carbon Dioxide Level 34 MMOL/L (21-32) H Anion Gap 6 (5-15) Blood Urea Nitrogen 26 mg/dL (7-18) H Creatinine 1.1 MG/DL (0.55-1.30) Estimat Glomerular Filtration Rate > 60 mL/min (>60) Glucose Level 132 MG/DL (74-106) H Calcium Level 9.3 MG/DL (8.5-10.1) Vancomycin Level Trough 33.5 ug/mL (5.0-12.0) H Current Medications Medications (Trade) Dose Ordered Sig/Karen Route PRN Reason Start Time Stop Time Status Last Admin Dose Admin Albuterol/ Ipratropium (DuoNeb 0.5-3(2.5)mg/3ml) 3 ml Q4H PRN HHN dyspnea 06/28/17 12:00 06/30/17 11:59 Carbamazepine (TEGretol) 200 mg FOUR TIMES A DAY ORAL 06/28/17 13:00 07/23/17 12:59 06/28/17 17:43 Dextrose (Dextrose 50%) STAT PRN IV Hypoglycemia 06/28/17 12:00 07/25/17 11:59 Docusate Sodium (Colace) 100 mg DAILY ORAL 06/29/17 09:00 07/24/17 08:59 Heparin Sodium (Porcine) (Heparin 5000 units/ml) 5,000 units EVERY 12 HOURS SUBQ 06/28/17 21:00 07/23/17 20:59 Levetiracetam (Keppra) 500 mg Q12HR ORAL 06/28/17 21:00 07/23/17 20:59 Lorazepam (Ativan 2mg/ml 1ml) 0.5 mg Q4H PRN IV For Anxiety 06/28/17 12:00 07/02/17 11:59 Methylprednisolone Sodium Succinate (Solu-MEDROL) 60 mg Q8HR IV 06/28/17 14:00 07/23/17 17:59 06/28/17 14:50 Morphine Sulfate (Morphine Sulfate) 2 mg Q4H PRN IVP severe pain 7-10 06/28/17 12:00 07/02/17 11:59 Nitroglycerin (Ntg) 0.4 mg Q5M X 3 DOSES PRN SL Prn Chest Pain 06/28/17 12:00 07/23/17 13:29 Olanzapine (ZyPREXA) 20 mg BEDTIME ORAL 06/28/17 21:00 07/24/17 08:59 Ondansetron HCl (Zofran) 4 mg Q6H PRN IVP Nausea & Vomiting 06/28/17 12:00 07/23/17 11:59 Piperacillin Sod/ Tazobactam Sod 3.375 gm/Dextrose 110 ml @ 27.5 mls/hr EVERY 8 HOURS IVPB 06/28/17 14:00 07/02/17 21:59 06/28/17 14:51 Temazepam (Restoril) 15 mg HSPRN PRN ORAL Insomnia 06/29/17 20:00 07/03/17 19:59 Theophylline (Dane-Dur) 100 mg EVERY 12 HOURS ORAL 06/28/17 21:00 07/23/17 20:59 Vancomycin HCl (Vanco rx to dose) 1 ea DAILY PRN MISC Per rx protocol 06/28/17 13:00 07/28/17 12:59 Vancomycin HCl/ Dextrose 250 ml @ 166.667 mls/hr Q24H IVPB 06/29/17 10:00 07/04/17 09:59 Dafne Orourke M.D. Jun 28, 2017 18:18
--- NOTE | 2017-06-28 22:45 | Cardiology Progress Note ---
Assessment/Plan Assessment/Plan 1. Sinus tachycardia, resolved. 2. Hypotension, resolved, 2D echocardiography shows normal LV systolic function with LVEF at 60-65%. 3. Respiratory failure 4. Dual chamber pacemaker implantation. Subjective Subjective No cardiac events. Sinus rhythm at 66. Objective Last 24 Hour Vital Signs Date Time Temp Pulse Resp B/P (MAP) Pulse Ox O2 Delivery O2 Flow Rate FiO2 06/28/17 19:10 94 Nasal Cannula 4.0 36 06/28/17 19:10 Nasal Cannula 4.0 36 06/28/17 19:10 66 20 Nasal Cannula 4.0 36 06/28/17 16:00 97.8 65 19 118/51 92 Nasal Cannula 5.0 06/28/17 15:43 60 06/28/17 12:30 97.7 69 20 107/59 96 Nasal Cannula 5.0 06/28/17 08:00 97.0 60 20 137/72 97 Room Air 06/28/17 06:50 68 18 Nasal Cannula 5.0 40 06/28/17 06:50 Nasal Cannula 5.0 40 06/28/17 06:50 92 Nasal Cannula 5.0 40 06/28/17 04:56 98.2 60 20 106/59 96 Nasal Cannula 5.0 06/28/17 00:00 98.4 60 21 107/67 97 Nasal Cannula 2.0 Intake and Output 06/28/17 06/29/17 19:00 07:00 Intake Total 137.5 ml Output Total 300 ml Balance -162.5 ml IV Total 137.5 ml Output Urine Total 300 ml 2D Echo: LVEF 60-65%, mild TR with RVSP at 33 mmHg Laboratory Tests Test 06/28/17 10:20 White Blood Count 6.0 K/UL (4.8-10.8) Red Blood Count 3.12 M/UL (4.70-6.10) L Hemoglobin 10.3 G/DL (14.2-18.0) L Hematocrit 32.0 % (42.0-52.0) L Mean Corpuscular Volume 103 FL (80-99) H Mean Corpuscular Hemoglobin 33.2 PG (27.0-31.0) H Mean Corpuscular Hemoglobin Concent 32.3 G/DL (32.0-36.0) Red Cell Distribution Width 12.8 % (11.6-14.8) Platelet Count 356 K/UL (150-450) Mean Platelet Volume 5.5 FL (6.5-10.1) L Neutrophils (%) (Auto) 67.5 % (45.0-75.0) Lymphocytes (%) (Auto) 24.7 % (20.0-45.0) Monocytes (%) (Auto) 6.9 % (1.0-10.0) Eosinophils (%) (Auto) 0.0 % (0.0-3.0) Basophils (%) (Auto) 0.9 % (0.0-2.0) Sodium Level 140 MMOL/L (136-145) Potassium Level 4.6 MMOL/L (3.5-5.1) Chloride Level 100 MMOL/L (98-107) Carbon Dioxide Level 34 MMOL/L (21-32) H Anion Gap 6 (5-15) Blood Urea Nitrogen 26 mg/dL (7-18) H Creatinine 1.1 MG/DL (0.55-1.30) Estimat Glomerular Filtration Rate > 60 mL/min (>60) Glucose Level 132 MG/DL (74-106) H Calcium Level 9.3 MG/DL (8.5-10.1) Vancomycin Level Trough 33.5 ug/mL (5.0-12.0) H Objective HEENT: Atraumatic and normocephalic. ENT, pupils are equal, round, and reactive to light and accommodation. Pale conjunctiva. On NC oxygen. NECK: JVP cannot be assessed. No carotid bruit. Carotid upstrokes 2+ bilaterally. LUNGS: Bilateral rhonchi is seen. There is use of accessory muscle ofrespiration. CVS: Normal S1, S2. no murmurs, gallops or rubs. PMI is at fourth intercostal space in the midclavicular line. ABDOMEN: Soft, nontender, and nondistended. No hepatosplenomegaly. Positive bowel sounds. EXTREMITIES: No evidence of edema, clubbing, or cyanosis. CALLUM BARON Jun 28, 2017 22:45
[2017-06-29] VITALS: BP 103/73
[2017-06-29 04:00] VITALS: BP 94/60
[2017-06-29] MEDS: Piperacillin/Tazobactam 3.375 GM in D5W 110 ML IVPB SCH ×3 (06:08→22:03)
[2017-06-29] MEDS: Solu-MEDROL 125mg Inj IV SCH ×2 (06:10→20:48)
[2017-06-29 06:32] LABS: BASOPHILS % (AUTO) 1.1 % (0.0-2.0); EOSINOPHILS % (AUTO) 0.1 % (0.0-3.0); HEMATOCRIT 32.9 % (42.0-52.0); LYMPHOCYTES % (AUTO) 27.9 % (20.0-45.0); MEAN CORPUSCULAR VOLUME 103 FL (80-99); MONOCYTES % (AUTO) 6.6 % (1.0-10.0); NEUTROPHILS % (AUTO) 64.3 % (45.0-75.0); PLATELET COUNT 343 K/UL (150-450); RED CELL DISTRIBUTION WIDTH 13.1 % (11.6-14.8)
[2017-06-29 06:58] LABS: ANION GAP 4 (5-15); BLOOD UREA NITROGEN 27 mg/dL (7-18); CALCIUM 9.7 MG/DL (8.5-10.1); CARBON DIOXIDE 32 MMOL/L (21-32); CHLORIDE 98 MMOL/L (98-107); CREATININE 1.2 MG/DL (0.55-1.30); POTASSIUM 4.5 MMOL/L (3.5-5.1); SODIUM 134 MMOL/L (136-145)
[2017-06-29 08:00] VITALS: BP 105/72
[2017-06-29] MEDS: Theophylline ER 100mg ORAL SCH ×2 (08:11→20:48)
[2017-06-29] MEDS: carBAMazepine 200mg tab ORAL SCH ×4 (08:12→20:48)
[2017-06-29] MEDS: Heparin 5000 units/ml inj SUBQ SCH ×2 (08:13→20:50)
[2017-06-29] MEDS ORDERED: Vancomycin 1250mg/D5W 250ml 250 ML IVPB SCH ×2 (09:00→10:00)
[2017-06-29] MEDS ORDERED: Docusate 100mg/10ml Liq ORAL SCH (09:00)
[2017-06-29] MEDS: Docusate 100mg cap ORAL SCH (10:17)
[2017-06-29] MEDS: Vancomycin 1250mg/D5W 250ml 250 ML IVPB SCH (10:18)
--- NOTE | 2017-06-29 10:47 | General Progress Note ---
Assessment/Plan Problem List: (1) Respiratory failure ICD Codes: J96.90 - Respiratory failure, unspecified, unspecified whether with hypoxia or hypercapnia SNOMED: 651645974 (2) Sepsis ICD Codes: A41.9 - Sepsis, unspecified organism SNOMED: 84409481 (3) UTI (urinary tract infection) ICD Codes: N39.0 - Urinary tract infection, site not specified SNOMED: 15374783 (4) Schizophrenia ICD Codes: F20.9 - Schizophrenia, unspecified SNOMED: 89018084 (5) History of pacemaker ICD Codes: Z95.0 - Presence of cardiac pacemaker SNOMED: 099181539 (6) Limited mobility ICD Codes: Z74.09 - Other reduced mobility SNOMED: 4955632 Status: stable, progressing, tolerating diet Assessment/Plan o2 pul tx ot pt diet abx cbc bmp am dc plan Subjective Constitutional: Reports: weakness Allergies: Coded Allergies: CHLORPROMAZINE (Verified Allergy, Unknown, 06/23/17) ERYTHROMYCIN BASE (Verified Allergy, Unknown, 06/23/17) Uncoded Allergies: TAPE (Allergy, Unknown, 06/23/17) All Systems: reviewed and negative except above Subjective o2nc sleepy Objective Last 24 Hour Vital Signs Date Time Temp Pulse Resp B/P (MAP) Pulse Ox O2 Delivery O2 Flow Rate FiO2 06/29/17 08:00 97.5 60 18 105/72 93 Nasal Cannula 2.0 06/29/17 08:00 60 06/29/17 04:00 60 06/29/17 04:00 97.7 119 17 94/60 100 Nasal Cannula 3.0 06/29/17 00:00 60 06/29/17 00:00 98.5 60 20 103/73 94 Nasal Cannula 4.0 06/28/17 20:00 62 06/28/17 20:00 99.0 65 19 108/66 93 Nasal Cannula 4.0 06/28/17 19:10 94 Nasal Cannula 4.0 36 06/28/17 19:10 Nasal Cannula 4.0 36 06/28/17 19:10 66 20 Nasal Cannula 4.0 36 06/28/17 16:00 97.8 65 19 118/51 92 Nasal Cannula 5.0 06/28/17 15:43 60 06/28/17 12:30 97.7 69 20 107/59 96 Nasal Cannula 5.0 Intake and Output 06/29/17 06/30/17 19:00 07:00 Intake Total 100 ml Balance 100 ml Intake Oral 100 ml Laboratory Tests 06/29/17 04:50: White Blood Count 8.0, Red Blood Count 3.20L, Hemoglobin 11.0L, Hematocrit 32.9L , Mean Corpuscular Volume 103H, Mean Corpuscular Hemoglobin 34.5H, Mean Corpuscular Hemoglobin Concent 33.5, Red Cell Distribution Width 13.1, Platelet Count 343, Mean Platelet Volume 5.7L, Neutrophils (%) (Auto) 64.3, Lymphocytes ( %) (Auto) 27.9, Monocytes (%) (Auto) 6.6, Eosinophils (%) (Auto) 0.1, Basophils (%) (Auto) 1.1, Sodium Level 134L, Potassium Level 4.5, Chloride Level 98, Carbon Dioxide Level 32, Anion Gap 4L, Blood Urea Nitrogen 27H, Creatinine 1.2, Estimat Glomerular Filtration Rate > 60, Glucose Level 110H, Calcium Level 9.7 Height (Feet): 5 Height (Inches): 11.00 Weight (Pounds): 180 General Appearance: lethargic EENT: normal ENT inspection Neck: normal alignment Cardiovascular: normal peripheral pulses, normal rate, regular rhythm Respiratory/Chest: chest wall non-tender, lungs clear, normal breath sounds Abdomen: normal bowel sounds, non tender, soft Extremities: normal inspection Edema: no edema noted Arm (L), no edema noted Arm (R), no edema noted Leg (L), no edema noted Leg (R), no edema noted Pedal (L), no edema noted Pedal (R), no edema noted Generalized Neurologic: motor weakness Skin: normal pigmentation, warm/dry QUINTON HUMPHRIES Jun 29, 2017 10:47
--- NOTE | 2017-06-29 10:47 | General Progress Note ---
Assessment/Plan Problem List: (1) Respiratory failure ICD Codes: J96.90 - Respiratory failure, unspecified, unspecified whether with hypoxia or hypercapnia SNOMED: 450314390 (2) Sepsis ICD Codes: A41.9 - Sepsis, unspecified organism SNOMED: 37342614 (3) UTI (urinary tract infection) ICD Codes: N39.0 - Urinary tract infection, site not specified SNOMED: 90270006 (4) Schizophrenia ICD Codes: F20.9 - Schizophrenia, unspecified SNOMED: 79537957 (5) History of pacemaker ICD Codes: Z95.0 - Presence of cardiac pacemaker SNOMED: 467343967 (6) Limited mobility ICD Codes: Z74.09 - Other reduced mobility SNOMED: 4517175 Status: stable, progressing, tolerating diet Assessment/Plan o2 pul tx ot pt diet abx cbc bmp am dc plan Subjective Constitutional: Reports: weakness Allergies: Coded Allergies: CHLORPROMAZINE (Verified Allergy, Unknown, 06/23/17) ERYTHROMYCIN BASE (Verified Allergy, Unknown, 06/23/17) Uncoded Allergies: TAPE (Allergy, Unknown, 06/23/17) All Systems: reviewed and negative except above Subjective o2nc sleepy Objective Last 24 Hour Vital Signs Date Time Temp Pulse Resp B/P (MAP) Pulse Ox O2 Delivery O2 Flow Rate FiO2 06/29/17 08:00 97.5 60 18 105/72 93 Nasal Cannula 2.0 06/29/17 08:00 60 06/29/17 04:00 60 06/29/17 04:00 97.7 119 17 94/60 100 Nasal Cannula 3.0 06/29/17 00:00 60 06/29/17 00:00 98.5 60 20 103/73 94 Nasal Cannula 4.0 06/28/17 20:00 62 06/28/17 20:00 99.0 65 19 108/66 93 Nasal Cannula 4.0 06/28/17 19:10 94 Nasal Cannula 4.0 36 06/28/17 19:10 Nasal Cannula 4.0 36 06/28/17 19:10 66 20 Nasal Cannula 4.0 36 06/28/17 16:00 97.8 65 19 118/51 92 Nasal Cannula 5.0 06/28/17 15:43 60 06/28/17 12:30 97.7 69 20 107/59 96 Nasal Cannula 5.0 Intake and Output 06/29/17 06/30/17 19:00 07:00 Intake Total 100 ml Balance 100 ml Intake Oral 100 ml Laboratory Tests 06/29/17 04:50: White Blood Count 8.0, Red Blood Count 3.20L, Hemoglobin 11.0L, Hematocrit 32.9L , Mean Corpuscular Volume 103H, Mean Corpuscular Hemoglobin 34.5H, Mean Corpuscular Hemoglobin Concent 33.5, Red Cell Distribution Width 13.1, Platelet Count 343, Mean Platelet Volume 5.7L, Neutrophils (%) (Auto) 64.3, Lymphocytes ( %) (Auto) 27.9, Monocytes (%) (Auto) 6.6, Eosinophils (%) (Auto) 0.1, Basophils (%) (Auto) 1.1, Sodium Level 134L, Potassium Level 4.5, Chloride Level 98, Carbon Dioxide Level 32, Anion Gap 4L, Blood Urea Nitrogen 27H, Creatinine 1.2, Estimat Glomerular Filtration Rate > 60, Glucose Level 110H, Calcium Level 9.7 Height (Feet): 5 Height (Inches): 11.00 Weight (Pounds): 180 General Appearance: lethargic EENT: normal ENT inspection Neck: normal alignment Cardiovascular: normal peripheral pulses, normal rate, regular rhythm Respiratory/Chest: chest wall non-tender, lungs clear, normal breath sounds Abdomen: normal bowel sounds, non tender, soft Extremities: normal inspection Edema: no edema noted Arm (L), no edema noted Arm (R), no edema noted Leg (L), no edema noted Leg (R), no edema noted Pedal (L), no edema noted Pedal (R), no edema noted Generalized Neurologic: motor weakness Skin: normal pigmentation, warm/dry QUINTON HUMPHRIES Jun 29, 2017 10:47
--- NOTE | 2017-06-29 10:47 | General Progress Note ---
Assessment/Plan Problem List: (1) Respiratory failure ICD Codes: J96.90 - Respiratory failure, unspecified, unspecified whether with hypoxia or hypercapnia SNOMED: 424134285 (2) Sepsis ICD Codes: A41.9 - Sepsis, unspecified organism SNOMED: 13445527 (3) UTI (urinary tract infection) ICD Codes: N39.0 - Urinary tract infection, site not specified SNOMED: 27368898 (4) Schizophrenia ICD Codes: F20.9 - Schizophrenia, unspecified SNOMED: 45168262 (5) History of pacemaker ICD Codes: Z95.0 - Presence of cardiac pacemaker SNOMED: 954629624 (6) Limited mobility ICD Codes: Z74.09 - Other reduced mobility SNOMED: 4594409 Status: stable, progressing, tolerating diet Assessment/Plan o2 pul tx ot pt diet abx cbc bmp am dc plan Subjective Constitutional: Reports: weakness Allergies: Coded Allergies: CHLORPROMAZINE (Verified Allergy, Unknown, 06/23/17) ERYTHROMYCIN BASE (Verified Allergy, Unknown, 06/23/17) Uncoded Allergies: TAPE (Allergy, Unknown, 06/23/17) All Systems: reviewed and negative except above Subjective o2nc sleepy Objective Last 24 Hour Vital Signs Date Time Temp Pulse Resp B/P (MAP) Pulse Ox O2 Delivery O2 Flow Rate FiO2 06/29/17 08:00 97.5 60 18 105/72 93 Nasal Cannula 2.0 06/29/17 08:00 60 06/29/17 04:00 60 06/29/17 04:00 97.7 119 17 94/60 100 Nasal Cannula 3.0 06/29/17 00:00 60 06/29/17 00:00 98.5 60 20 103/73 94 Nasal Cannula 4.0 06/28/17 20:00 62 06/28/17 20:00 99.0 65 19 108/66 93 Nasal Cannula 4.0 06/28/17 19:10 94 Nasal Cannula 4.0 36 06/28/17 19:10 Nasal Cannula 4.0 36 06/28/17 19:10 66 20 Nasal Cannula 4.0 36 06/28/17 16:00 97.8 65 19 118/51 92 Nasal Cannula 5.0 06/28/17 15:43 60 06/28/17 12:30 97.7 69 20 107/59 96 Nasal Cannula 5.0 Intake and Output 06/29/17 06/30/17 19:00 07:00 Intake Total 100 ml Balance 100 ml Intake Oral 100 ml Laboratory Tests 06/29/17 04:50: White Blood Count 8.0, Red Blood Count 3.20L, Hemoglobin 11.0L, Hematocrit 32.9L , Mean Corpuscular Volume 103H, Mean Corpuscular Hemoglobin 34.5H, Mean Corpuscular Hemoglobin Concent 33.5, Red Cell Distribution Width 13.1, Platelet Count 343, Mean Platelet Volume 5.7L, Neutrophils (%) (Auto) 64.3, Lymphocytes ( %) (Auto) 27.9, Monocytes (%) (Auto) 6.6, Eosinophils (%) (Auto) 0.1, Basophils (%) (Auto) 1.1, Sodium Level 134L, Potassium Level 4.5, Chloride Level 98, Carbon Dioxide Level 32, Anion Gap 4L, Blood Urea Nitrogen 27H, Creatinine 1.2, Estimat Glomerular Filtration Rate > 60, Glucose Level 110H, Calcium Level 9.7 Height (Feet): 5 Height (Inches): 11.00 Weight (Pounds): 180 General Appearance: lethargic EENT: normal ENT inspection Neck: normal alignment Cardiovascular: normal peripheral pulses, normal rate, regular rhythm Respiratory/Chest: chest wall non-tender, lungs clear, normal breath sounds Abdomen: normal bowel sounds, non tender, soft Extremities: normal inspection Edema: no edema noted Arm (L), no edema noted Arm (R), no edema noted Leg (L), no edema noted Leg (R), no edema noted Pedal (L), no edema noted Pedal (R), no edema noted Generalized Neurologic: motor weakness Skin: normal pigmentation, warm/dry QUINTON HUMPHRIES Jun 29, 2017 10:47
[2017-06-29 12:00] VITALS: BP 100/60
--- NOTE | 2017-06-29 13:09 | Pulmonology Progress Note ---
Assessment/Plan Assessment/Plan ASSESSMENT acute hypercapnic respiratory failure requiring BiPAP sepsis Pneumonia with pseudomonas left lung collapse COPD exacerbation hypotension, possible shock -resolved encephalopathy schizophrenia anemia of chronic disease pacemaker seizure disorder PLAN OF CARE [facility] off Bipap, on O2 via NC, titrate to keep sat above 92% CT chest and fup CXR with evidence of left lung near complete opacification continue HHN and CPT elevate L side of the chest on 2 pillows fup CXR still with complete opacification of left lung continue current treatment with CPT and HHN and chest side elevation fup wtih CXR in am clinically not in distress taper steroids Theophylline a/tussive prn abx ID follows sputum cx + Pseudomonas, urine cx negative, blood cx negative ECHO with pEF 60-65% and RVSP of 33 cardio follows per cardio no evidence of CHF exacerbation nephro follows monitor lytes, replace as needed, avoid nephrotoxic BP better seizure precautions, continue Keppra and Tegretol anemia w/up c/w anemia of chronic disease monitor counts, transfuse prn psych follows, diagnosed with schizophrenia and encephalopathy, optimized medication regimen DVT prophylaxis case discussed and evaluated by supervising physician Subjective Allergies: Coded Allergies: CHLORPROMAZINE (Verified Allergy, Unknown, 06/23/17) ERYTHROMYCIN BASE (Verified Allergy, Unknown, 06/23/17) Uncoded Allergies: TAPE (Allergy, Unknown, 06/23/17) Subjective transferred to [facility] for closer monitoring due to complete opacification of left lung leukocytosis resolved, off BiPAP on O2 via NC BP better CT chest and CXR with near complete opacification left lung no signs of respiratory distress Objective Last 24 Hour Vital Signs Date Time Temp Pulse Resp B/P (MAP) Pulse Ox O2 Delivery O2 Flow Rate FiO2 06/29/17 08:00 97.5 60 18 105/72 93 Nasal Cannula 2.0 06/29/17 08:00 60 06/29/17 04:00 60 06/29/17 04:00 97.7 119 17 94/60 100 Nasal Cannula 3.0 06/29/17 00:00 60 06/29/17 00:00 98.5 60 20 103/73 94 Nasal Cannula 4.0 06/28/17 20:00 62 06/28/17 20:00 99.0 65 19 108/66 93 Nasal Cannula 4.0 06/28/17 19:10 94 Nasal Cannula 4.0 36 06/28/17 19:10 Nasal Cannula 4.0 36 06/28/17 19:10 66 20 Nasal Cannula 4.0 36 06/28/17 16:00 97.8 65 19 118/51 92 Nasal Cannula 5.0 06/28/17 15:43 60 Intake and Output 06/29/17 06/30/17 19:00 07:00 Intake Total 349.167 ml Balance 349.167 ml Intake Oral 100 ml IV Total 249.167 ml Objective General Appearance: no acute distress HEENT: normocephalic, atraumatic, anicteric Respiratory/Chest: no accessory muscle use, decreased breath sounds, other - left chest pacemaker Cardiovascular: normal rate, regular rhythm, no JVD Abdomen: normal bowel sounds, soft, non tender, non distended Extremities: no edema Neurologic/Psychiatric: awake, responsive Laboratory Tests 06/29/17 04:50: White Blood Count 8.0, Red Blood Count 3.20L, Hemoglobin 11.0L, Hematocrit 32.9L , Mean Corpuscular Volume 103H, Mean Corpuscular Hemoglobin 34.5H, Mean Corpuscular Hemoglobin Concent 33.5, Red Cell Distribution Width 13.1, Platelet Count 343, Mean Platelet Volume 5.7L, Neutrophils (%) (Auto) 64.3, Lymphocytes ( %) (Auto) 27.9, Monocytes (%) (Auto) 6.6, Eosinophils (%) (Auto) 0.1, Basophils (%) (Auto) 1.1, Sodium Level 134L, Potassium Level 4.5, Chloride Level 98, Carbon Dioxide Level 32, Anion Gap 4L, Blood Urea Nitrogen 27H, Creatinine 1.2, Estimat Glomerular Filtration Rate > 60, Glucose Level 110H, Calcium Level 9.7 Current Medications Medications (Trade) Dose Ordered Sig/Karen Route PRN Reason Start Time Stop Time Status Last Admin Dose Admin Albuterol/ Ipratropium (DuoNeb 0.5-3(2.5)mg/3ml) 3 ml Q4H PRN HHN dyspnea 06/28/17 12:00 06/30/17 11:59 Carbamazepine (TEGretol) 200 mg FOUR TIMES A DAY ORAL 06/28/17 13:00 07/23/17 12:59 06/29/17 08:12 Dextrose (Dextrose 50%) STAT PRN IV Hypoglycemia 06/28/17 12:00 07/25/17 11:59 Docusate Sodium (Colace) 100 mg DAILY ORAL 06/29/17 09:00 07/29/17 08:59 06/29/17 10:17 Heparin Sodium (Porcine) (Heparin 5000 units/ml) 5,000 units EVERY 12 HOURS SUBQ 06/28/17 21:00 07/23/17 20:59 06/29/17 08:13 Levetiracetam (Keppra) 500 mg Q12HR ORAL 06/28/17 21:00 07/23/17 20:59 06/29/17 08:11 Lorazepam (Ativan 2mg/ml 1ml) 0.5 mg Q4H PRN IV For Anxiety 06/28/17 12:00 07/02/17 11:59 Methylprednisolone Sodium Succinate (Solu-MEDROL) 60 mg Q8HR IV 06/28/17 14:00 07/23/17 17:59 06/29/17 06:10 Morphine Sulfate (Morphine Sulfate) 2 mg Q4H PRN IVP severe pain 7-10 06/28/17 12:00 07/02/17 11:59 Nitroglycerin (Ntg) 0.4 mg Q5M X 3 DOSES PRN SL Prn Chest Pain 06/28/17 12:00 07/23/17 13:29 Olanzapine (ZyPREXA) 20 mg BEDTIME ORAL 06/28/17 21:00 07/24/17 08:59 06/28/17 21:09 Ondansetron HCl (Zofran) 4 mg Q6H PRN IVP Nausea & Vomiting 06/28/17 12:00 07/23/17 11:59 Piperacillin Sod/ Tazobactam Sod 3.375 gm/Dextrose 110 ml @ 27.5 mls/hr EVERY 8 HOURS IVPB 06/28/17 14:00 07/02/17 21:59 06/29/17 06:08 Temazepam (Restoril) 15 mg HSPRN PRN ORAL Insomnia 06/29/17 20:00 07/03/17 19:59 Theophylline (Dane-Dur) 100 mg EVERY 12 HOURS ORAL 06/28/17 21:00 07/23/17 20:59 06/29/17 08:11 Vancomycin HCl (Vanco rx to dose) 1 ea DAILY PRN MISC Per rx protocol 06/28/17 13:00 07/28/17 12:59 Vancomycin HCl/ Dextrose 250 ml @ 166.667 mls/hr Q24H IVPB 06/29/17 10:00 07/04/17 09:59 06/29/17 10:18 Junior (Aisha),Kell OLIVAREZ Jun 29, 2017 13:09
[2017-06-29] MEDS ORDERED: Albuterol/Ipratropium 3ml neb HHN PRN (13:30)
--- NOTE | 2017-06-29 15:05 | Infectious Diseases Prog Note ---
Assessment/Plan Problems: (1) HCAP (healthcare-associated pneumonia) Assessment & Plan: due to pseudomonas aeruginosa on zosyn, and vancomycin , repeated CXR showed worsening left lung opacifications , CT chest showed left complete lower lobe collapse, and partial collapse in [place]. recommend bronchoscopy to remove possible mucous plug, will treat with vancomycin and zosyn for two weeks, EOT 07/07/17 (2) Acute respiratory failure Assessment & Plan: due to pneumonia, and lung collapse , continu antibiotics , monitor ABG, and CXR, taper steroids, pulmonary is following (3) UTI (urinary tract infection) Assessment & Plan: less likely with negative urine culture, already on zosyn empirically (4) Sepsis Assessment & Plan: due to the above, continue wide spectrum antibiotics pending culture results (5) Fever Assessment & Plan: due to left lung collapse and possible mucous plug, already on zosyn and vancomycin, consider bronchoscopy and suctioning Subjective ROS Limited/Unobtainable: Yes Allergies: Coded Allergies: CHLORPROMAZINE (Verified Allergy, Unknown, 06/23/17) ERYTHROMYCIN BASE (Verified Allergy, Unknown, 06/23/17) Uncoded Allergies: TAPE (Allergy, Unknown, 06/23/17) Subjective he was lying in bed , still unresponsive, not in distress , respond only to deep stimulation, no fever , or coughing Objective Vital Signs Last 24 Hour Vital Signs Date Time Temp Pulse Resp B/P (MAP) Pulse Ox O2 Delivery O2 Flow Rate FiO2 06/29/17 12:00 97.8 99 18 100/60 99 Nasal Cannula 5.0 06/29/17 12:00 61 06/29/17 08:00 97.5 60 18 105/72 93 Nasal Cannula 2.0 06/29/17 08:00 60 06/29/17 04:00 60 06/29/17 04:00 97.7 119 17 94/60 100 Nasal Cannula 3.0 06/29/17 00:00 60 06/29/17 00:00 98.5 60 20 103/73 94 Nasal Cannula 4.0 06/28/17 20:00 62 06/28/17 20:00 99.0 65 19 108/66 93 Nasal Cannula 4.0 06/28/17 19:10 94 Nasal Cannula 4.0 36 06/28/17 19:10 Nasal Cannula 4.0 36 06/28/17 19:10 66 20 Nasal Cannula 4.0 36 06/28/17 16:00 97.8 65 19 118/51 92 Nasal Cannula 5.0 06/28/17 15:43 60 Height (Feet): 5 Height (Inches): 11.00 Weight (Pounds): 180 General Appearance: WD/WN, no acute distress HEENT: normocephalic, atraumatic, anicteric, supple, no JVD Respiratory/Chest: no respiratory distress, no accessory muscle use, decreased breath sounds, crackles/rales Cardiovascular: normal peripheral pulses, normal rate, regular rhythm, no gallop/murmur, no JVD Abdomen: normal bowel sounds, soft, non tender, no organomegaly, non distended , no mass, no scars Extremities: no cyanosis, no clubbing Skin: no rash, no lesions, no ulcers Neurologic/Psychiatric: unresponsiveness Lymphatic: no neck adenopathy, no groin adenopathy Laboratory Tests Test 06/29/17 04:50 White Blood Count 8.0 K/UL (4.8-10.8) Red Blood Count 3.20 M/UL (4.70-6.10) L Hemoglobin 11.0 G/DL (14.2-18.0) L Hematocrit 32.9 % (42.0-52.0) L Mean Corpuscular Volume 103 FL (80-99) H Mean Corpuscular Hemoglobin 34.5 PG (27.0-31.0) H Mean Corpuscular Hemoglobin Concent 33.5 G/DL (32.0-36.0) Red Cell Distribution Width 13.1 % (11.6-14.8) Platelet Count 343 K/UL (150-450) Mean Platelet Volume 5.7 FL (6.5-10.1) L Neutrophils (%) (Auto) 64.3 % (45.0-75.0) Lymphocytes (%) (Auto) 27.9 % (20.0-45.0) Monocytes (%) (Auto) 6.6 % (1.0-10.0) Eosinophils (%) (Auto) 0.1 % (0.0-3.0) Basophils (%) (Auto) 1.1 % (0.0-2.0) Sodium Level 134 MMOL/L (136-145) L Potassium Level 4.5 MMOL/L (3.5-5.1) Chloride Level 98 MMOL/L (98-107) Carbon Dioxide Level 32 MMOL/L (21-32) Anion Gap 4 (5-15) L Blood Urea Nitrogen 27 mg/dL (7-18) H Creatinine 1.2 MG/DL (0.55-1.30) Estimat Glomerular Filtration Rate > 60 mL/min (>60) Glucose Level 110 MG/DL (74-106) H Calcium Level 9.7 MG/DL (8.5-10.1) Current Medications Medications (Trade) Dose Ordered Sig/Karen Route PRN Reason Start Time Stop Time Status Last Admin Dose Admin Albuterol/ Ipratropium (DuoNeb 0.5-3(2.5)mg/3ml) 3 ml Q4H PRN HHN dyspnea 06/29/17 13:30 07/01/17 13:29 Carbamazepine (TEGretol) 200 mg FOUR TIMES A DAY ORAL 06/28/17 13:00 07/23/17 12:59 06/29/17 13:49 Dextrose (Dextrose 50%) STAT PRN IV Hypoglycemia 06/28/17 12:00 07/25/17 11:59 Docusate Sodium (Colace) 100 mg DAILY ORAL 06/29/17 09:00 07/29/17 08:59 06/29/17 10:17 Heparin Sodium (Porcine) (Heparin 5000 units/ml) 5,000 units EVERY 12 HOURS SUBQ 06/28/17 21:00 07/23/17 20:59 06/29/17 08:13 Levetiracetam (Keppra) 500 mg Q12HR ORAL 06/28/17 21:00 07/23/17 20:59 06/29/17 08:11 Lorazepam (Ativan 2mg/ml 1ml) 0.5 mg Q4H PRN IV For Anxiety 06/28/17 12:00 07/02/17 11:59 Methylprednisolone Sodium Succinate (Solu-MEDROL) 60 mg Q12HR IV 06/29/17 21:00 07/23/17 17:59 Morphine Sulfate (Morphine Sulfate) 2 mg Q4H PRN IVP severe pain 7-10 06/28/17 12:00 07/02/17 11:59 Nitroglycerin (Ntg) 0.4 mg Q5M X 3 DOSES PRN SL Prn Chest Pain 06/28/17 12:00 07/23/17 13:29 Olanzapine (ZyPREXA) 20 mg BEDTIME ORAL 06/28/17 21:00 07/24/17 08:59 06/28/17 21:09 Ondansetron HCl (Zofran) 4 mg Q6H PRN IVP Nausea & Vomiting 06/28/17 12:00 07/23/17 11:59 Piperacillin Sod/ Tazobactam Sod 3.375 gm/Dextrose 110 ml @ 27.5 mls/hr EVERY 8 HOURS IVPB 06/28/17 14:00 07/02/17 21:59 06/29/17 13:49 Temazepam (Restoril) 15 mg HSPRN PRN ORAL Insomnia 06/29/17 20:00 07/03/17 19:59 Theophylline (Dane-Dur) 100 mg EVERY 12 HOURS ORAL 06/28/17 21:00 07/23/17 20:59 06/29/17 08:11 Vancomycin HCl (Vanco rx to dose) 1 ea DAILY PRN MISC Per rx protocol 06/28/17 13:00 07/28/17 12:59 Vancomycin HCl/ Dextrose 250 ml @ 166.667 mls/hr Q24H IVPB 06/29/17 10:00 07/04/17 09:59 06/29/17 10:18 Dafne Orourke M.D. Jun 29, 2017 15:05
[2017-06-29 16:00] VITALS: BP 100/59
[2017-06-29] MEDS ORDERED: NS 275ml ONE (16:18)
[2017-06-29] MEDS ORDERED: Tubing IV Secondary IV ONE (16:18)
--- NOTE | 2017-06-29 19:21 | Cardiology Progress Note ---
Assessment/Plan Assessment/Plan 1. Sinus tachycardia, resolved. 2. Hypotension, resolved, 2D echocardiography shows normal LV systolic function with LVEF at 60-65%. 3. Respiratory failure 4. Dual chamber pacemaker implantation, currently intrinsic atrial and ventricular activity. 5. HCAP, on IV ABx. 6. Left lung collapse. Subjective Subjective No cardiac events. Sinus rhythm at 62. Objective Last 24 Hour Vital Signs Date Time Temp Pulse Resp B/P (MAP) Pulse Ox O2 Delivery O2 Flow Rate FiO2 06/29/17 16:00 62 06/29/17 16:00 97.8 63 18 100/59 98 Nasal Cannula 4.0 06/29/17 12:00 97.8 99 18 100/60 99 Nasal Cannula 5.0 06/29/17 12:00 61 06/29/17 08:00 97.5 60 18 105/72 93 Nasal Cannula 2.0 06/29/17 08:00 60 06/29/17 07:15 Nasal Cannula 4.0 36 06/29/17 07:15 60 18 Nasal Cannula 4.0 36 06/29/17 07:15 94 Nasal Cannula 4.0 36 06/29/17 04:00 60 06/29/17 04:00 97.7 119 17 94/60 100 Nasal Cannula 3.0 06/29/17 00:00 60 06/29/17 00:00 98.5 60 20 103/73 94 Nasal Cannula 4.0 06/28/17 20:00 62 06/28/17 20:00 99.0 65 19 108/66 93 Nasal Cannula 4.0 Intake and Output 06/29/17 06/30/17 19:00 07:00 Intake Total 542.500 ml Output Total 500 ml Balance 42.500 ml Intake Oral 100 ml IV Total 442.500 ml Output Urine Total 500 ml 2D Echo: LVEF 60-65%, mild TR with RVSP at 33 mmHg Laboratory Tests Test 06/29/17 04:50 White Blood Count 8.0 K/UL (4.8-10.8) Red Blood Count 3.20 M/UL (4.70-6.10) L Hemoglobin 11.0 G/DL (14.2-18.0) L Hematocrit 32.9 % (42.0-52.0) L Mean Corpuscular Volume 103 FL (80-99) H Mean Corpuscular Hemoglobin 34.5 PG (27.0-31.0) H Mean Corpuscular Hemoglobin Concent 33.5 G/DL (32.0-36.0) Red Cell Distribution Width 13.1 % (11.6-14.8) Platelet Count 343 K/UL (150-450) Mean Platelet Volume 5.7 FL (6.5-10.1) L Neutrophils (%) (Auto) 64.3 % (45.0-75.0) Lymphocytes (%) (Auto) 27.9 % (20.0-45.0) Monocytes (%) (Auto) 6.6 % (1.0-10.0) Eosinophils (%) (Auto) 0.1 % (0.0-3.0) Basophils (%) (Auto) 1.1 % (0.0-2.0) Sodium Level 134 MMOL/L (136-145) L Potassium Level 4.5 MMOL/L (3.5-5.1) Chloride Level 98 MMOL/L (98-107) Carbon Dioxide Level 32 MMOL/L (21-32) Anion Gap 4 (5-15) L Blood Urea Nitrogen 27 mg/dL (7-18) H Creatinine 1.2 MG/DL (0.55-1.30) Estimat Glomerular Filtration Rate > 60 mL/min (>60) Glucose Level 110 MG/DL (74-106) H Calcium Level 9.7 MG/DL (8.5-10.1) Objective HEENT: Atraumatic and normocephalic. ENT, pupils are equal, round, and reactive to light and accommodation. Pale conjunctiva. NECK: JVP cannot be assessed. No carotid bruit. Carotid upstrokes 2+ bilaterally. LUNGS: Bilateral rhonchi CVS: Normal S1, S2. no murmurs, gallops or rubs. PMI is at fourth intercostal space in the midclavicular line. ABDOMEN: Soft, nontender, and nondistended. No hepatosplenomegaly. Positive bowel sounds. EXTREMITIES: No evidence of edema, clubbing, or cyanosis. CALLUM BARON Jun 29, 2017 19:21
[2017-06-29 20:00] VITALS: BP 106/61
[2017-06-30] VITALS: BP 109/64
[2017-06-30 04:00] VITALS: BP 111/60
[2017-06-30] MEDS: Piperacillin/Tazobactam 3.375 GM in D5W 110 ML IVPB SCH ×3 (05:44→21:47)
[2017-06-30 08:00] VITALS: BP 95/54
[2017-06-30] MEDS: Solu-MEDROL 125mg Inj IV SCH (08:06)
[2017-06-30] MEDS: Theophylline ER 100mg ORAL SCH ×2 (08:07→20:51)
[2017-06-30] MEDS: Heparin 5000 units/ml inj SUBQ SCH ×2 (08:07→20:53)
[2017-06-30] MEDS: carBAMazepine 200mg tab ORAL SCH ×4 (08:08→20:51)
[2017-06-30] MEDS: Docusate 100mg cap ORAL SCH (08:08)
[2017-06-30 10:05] LABS: BASOPHILS % (AUTO) 0.5 % (0.0-2.0); EOSINOPHILS % (AUTO) 0.7 % (0.0-3.0); HEMATOCRIT 33.7 % (42.0-52.0); HEMOGLOBIN 11.1 G/DL (14.2-18.0); LYMPHOCYTES % (AUTO) 25.6 % (20.0-45.0); MEAN CORPUSCULAR VOLUME 102 FL (80-99); MONOCYTES % (AUTO) 6.1 % (1.0-10.0); NEUTROPHILS % (AUTO) 67.1 % (45.0-75.0); PLATELET COUNT 351 K/UL (150-450); RED BLOOD COUNT 3.31 M/UL (4.70-6.10); RED CELL DISTRIBUTION WIDTH 13.1 % (11.6-14.8); WHITE BLOOD COUNT 9.7 K/UL (4.8-10.8)
[2017-06-30 10:06] LABS: ANION GAP 7 (5-15); BLOOD UREA NITROGEN 28 mg/dL (7-18); CALCIUM 9.1 MG/DL (8.5-10.1); CARBON DIOXIDE 32 MMOL/L (21-32); CHLORIDE 102 MMOL/L (98-107); CREATININE 1.2 MG/DL (0.55-1.30); POTASSIUM 3.9 MMOL/L (3.5-5.1); SODIUM 141 MMOL/L (136-145)
--- NOTE | 2017-06-30 10:08 | Diagnostic Imaging Report ---
Indication: Dyspnea Comparison: 06/28/2013 A single view chest radiograph was obtained. Findings: There is complete left which in the left hemithorax. There is volume loss with lucency at the left lung base medially which may be part of the stomach. Pacemaker again noted. Mild interstitial edema is present. Impression: No significant change from prior exam 06/28/2017 No change from XRAY CHEST 1 V with report dated 06/28/2017 11:04 AM.
--- NOTE | 2017-06-30 10:39 | General Progress Note ---
Assessment/Plan Problem List: (1) Respiratory failure ICD Codes: J96.90 - Respiratory failure, unspecified, unspecified whether with hypoxia or hypercapnia SNOMED: 415745386 (2) Sepsis ICD Codes: A41.9 - Sepsis, unspecified organism SNOMED: 89202427 (3) UTI (urinary tract infection) ICD Codes: N39.0 - Urinary tract infection, site not specified SNOMED: 92358244 (4) Schizophrenia ICD Codes: F20.9 - Schizophrenia, unspecified SNOMED: 27170251 (5) History of pacemaker ICD Codes: Z95.0 - Presence of cardiac pacemaker SNOMED: 790109771 (6) Limited mobility ICD Codes: Z74.09 - Other reduced mobility SNOMED: 2503170 Status: stable, progressing, tolerating diet Assessment/Plan o2 pul tx ot pt diet abx cbc bmp am dc plan Subjective Constitutional: Reports: weakness Allergies: Coded Allergies: CHLORPROMAZINE (Verified Allergy, Unknown, 06/23/17) ERYTHROMYCIN BASE (Verified Allergy, Unknown, 06/23/17) Uncoded Allergies: TAPE (Allergy, Unknown, 06/23/17) All Systems: reviewed and negative except above Subjective o2nc sleepy Objective Last 24 Hour Vital Signs Date Time Temp Pulse Resp B/P (MAP) Pulse Ox O2 Delivery O2 Flow Rate FiO2 06/30/17 08:00 97.8 60 20 95/54 94 Nasal Cannula 4.0 06/30/17 08:00 60 06/30/17 07:19 60 18 Nasal Cannula 4.0 36 06/30/17 07:18 Nasal Cannula 4.0 36 06/30/17 07:18 97 Nasal Cannula 4.0 36 06/30/17 04:00 60 06/30/17 04:00 98.0 60 20 111/60 92 Nasal Cannula 4.0 06/30/17 00:00 98.0 63 24 109/64 93 Nasal Cannula 4.0 06/29/17 21:00 64 18 Nasal Cannula 4.0 36 06/29/17 21:00 Nasal Cannula 4.0 36 06/29/17 21:00 93 Nasal Cannula 4.0 36 06/29/17 20:00 98.1 63 24 106/61 92 Nasal Cannula 4.0 06/29/17 20:00 63 06/29/17 16:00 62 06/29/17 16:00 97.8 63 18 100/59 98 Nasal Cannula 4.0 06/29/17 12:00 97.8 99 18 100/60 99 Nasal Cannula 5.0 06/29/17 12:00 61 Intake and Output 06/30/17 07/01/17 19:00 07:00 Intake Total 202.5 ml Balance 202.5 ml Intake Oral 120 ml IV Total 82.5 ml Laboratory Tests 06/30/17 09:10: White Blood Count 9.7, Red Blood Count 3.31L, Hemoglobin 11.1L, Hematocrit 33.7L , Mean Corpuscular Volume 102H, Mean Corpuscular Hemoglobin 33.4H, Mean Corpuscular Hemoglobin Concent 32.8, Red Cell Distribution Width 13.1, Platelet Count 351, Mean Platelet Volume 5.6L, Neutrophils (%) (Auto) 67.1, Lymphocytes ( %) (Auto) 25.6, Monocytes (%) (Auto) 6.1, Eosinophils (%) (Auto) 0.7, Basophils (%) (Auto) 0.5, Sodium Level 141, Potassium Level 3.9, Chloride Level 102, Carbon Dioxide Level 32, Anion Gap 7, Blood Urea Nitrogen 28H, Creatinine 1.2, Estimat Glomerular Filtration Rate > 60, Glucose Level 131H, Calcium Level 9.1, Vancomycin Level Trough 19.1H Height (Feet): 5 Height (Inches): 11.00 Weight (Pounds): 180 General Appearance: lethargic EENT: normal ENT inspection Neck: normal alignment Cardiovascular: normal peripheral pulses, normal rate, regular rhythm Respiratory/Chest: chest wall non-tender, lungs clear, normal breath sounds Abdomen: normal bowel sounds, non tender, soft Extremities: normal inspection Edema: no edema noted Arm (L), no edema noted Arm (R), no edema noted Leg (L), no edema noted Leg (R), no edema noted Pedal (L), no edema noted Pedal (R), no edema noted Generalized Neurologic: motor weakness Skin: normal pigmentation, warm/dry QUINTON HUMPHRIES Jun 30, 2017 10:39
--- NOTE | 2017-06-30 10:39 | General Progress Note ---
Assessment/Plan Problem List: (1) Respiratory failure ICD Codes: J96.90 - Respiratory failure, unspecified, unspecified whether with hypoxia or hypercapnia SNOMED: 352493888 (2) Sepsis ICD Codes: A41.9 - Sepsis, unspecified organism SNOMED: 44613924 (3) UTI (urinary tract infection) ICD Codes: N39.0 - Urinary tract infection, site not specified SNOMED: 24839906 (4) Schizophrenia ICD Codes: F20.9 - Schizophrenia, unspecified SNOMED: 80247654 (5) History of pacemaker ICD Codes: Z95.0 - Presence of cardiac pacemaker SNOMED: 130701204 (6) Limited mobility ICD Codes: Z74.09 - Other reduced mobility SNOMED: 8441324 Status: stable, progressing, tolerating diet Assessment/Plan o2 pul tx ot pt diet abx cbc bmp am dc plan Subjective Constitutional: Reports: weakness Allergies: Coded Allergies: CHLORPROMAZINE (Verified Allergy, Unknown, 06/23/17) ERYTHROMYCIN BASE (Verified Allergy, Unknown, 06/23/17) Uncoded Allergies: TAPE (Allergy, Unknown, 06/23/17) All Systems: reviewed and negative except above Subjective o2nc sleepy Objective Last 24 Hour Vital Signs Date Time Temp Pulse Resp B/P (MAP) Pulse Ox O2 Delivery O2 Flow Rate FiO2 06/30/17 08:00 97.8 60 20 95/54 94 Nasal Cannula 4.0 06/30/17 08:00 60 06/30/17 07:19 60 18 Nasal Cannula 4.0 36 06/30/17 07:18 Nasal Cannula 4.0 36 06/30/17 07:18 97 Nasal Cannula 4.0 36 06/30/17 04:00 60 06/30/17 04:00 98.0 60 20 111/60 92 Nasal Cannula 4.0 06/30/17 00:00 98.0 63 24 109/64 93 Nasal Cannula 4.0 06/29/17 21:00 64 18 Nasal Cannula 4.0 36 06/29/17 21:00 Nasal Cannula 4.0 36 06/29/17 21:00 93 Nasal Cannula 4.0 36 06/29/17 20:00 98.1 63 24 106/61 92 Nasal Cannula 4.0 06/29/17 20:00 63 06/29/17 16:00 62 06/29/17 16:00 97.8 63 18 100/59 98 Nasal Cannula 4.0 06/29/17 12:00 97.8 99 18 100/60 99 Nasal Cannula 5.0 06/29/17 12:00 61 Intake and Output 06/30/17 07/01/17 19:00 07:00 Intake Total 202.5 ml Balance 202.5 ml Intake Oral 120 ml IV Total 82.5 ml Laboratory Tests 06/30/17 09:10: White Blood Count 9.7, Red Blood Count 3.31L, Hemoglobin 11.1L, Hematocrit 33.7L , Mean Corpuscular Volume 102H, Mean Corpuscular Hemoglobin 33.4H, Mean Corpuscular Hemoglobin Concent 32.8, Red Cell Distribution Width 13.1, Platelet Count 351, Mean Platelet Volume 5.6L, Neutrophils (%) (Auto) 67.1, Lymphocytes ( %) (Auto) 25.6, Monocytes (%) (Auto) 6.1, Eosinophils (%) (Auto) 0.7, Basophils (%) (Auto) 0.5, Sodium Level 141, Potassium Level 3.9, Chloride Level 102, Carbon Dioxide Level 32, Anion Gap 7, Blood Urea Nitrogen 28H, Creatinine 1.2, Estimat Glomerular Filtration Rate > 60, Glucose Level 131H, Calcium Level 9.1, Vancomycin Level Trough 19.1H Height (Feet): 5 Height (Inches): 11.00 Weight (Pounds): 180 General Appearance: lethargic EENT: normal ENT inspection Neck: normal alignment Cardiovascular: normal peripheral pulses, normal rate, regular rhythm Respiratory/Chest: chest wall non-tender, lungs clear, normal breath sounds Abdomen: normal bowel sounds, non tender, soft Extremities: normal inspection Edema: no edema noted Arm (L), no edema noted Arm (R), no edema noted Leg (L), no edema noted Leg (R), no edema noted Pedal (L), no edema noted Pedal (R), no edema noted Generalized Neurologic: motor weakness Skin: normal pigmentation, warm/dry QUINTON HUMPHRIES Jun 30, 2017 10:39
--- NOTE | 2017-06-30 10:39 | General Progress Note ---
Assessment/Plan Problem List: (1) Respiratory failure ICD Codes: J96.90 - Respiratory failure, unspecified, unspecified whether with hypoxia or hypercapnia SNOMED: 883475046 (2) Sepsis ICD Codes: A41.9 - Sepsis, unspecified organism SNOMED: 99738457 (3) UTI (urinary tract infection) ICD Codes: N39.0 - Urinary tract infection, site not specified SNOMED: 15013772 (4) Schizophrenia ICD Codes: F20.9 - Schizophrenia, unspecified SNOMED: 17689179 (5) History of pacemaker ICD Codes: Z95.0 - Presence of cardiac pacemaker SNOMED: 904930864 (6) Limited mobility ICD Codes: Z74.09 - Other reduced mobility SNOMED: 2073444 Status: stable, progressing, tolerating diet Assessment/Plan o2 pul tx ot pt diet abx cbc bmp am dc plan Subjective Constitutional: Reports: weakness Allergies: Coded Allergies: CHLORPROMAZINE (Verified Allergy, Unknown, 06/23/17) ERYTHROMYCIN BASE (Verified Allergy, Unknown, 06/23/17) Uncoded Allergies: TAPE (Allergy, Unknown, 06/23/17) All Systems: reviewed and negative except above Subjective o2nc sleepy Objective Last 24 Hour Vital Signs Date Time Temp Pulse Resp B/P (MAP) Pulse Ox O2 Delivery O2 Flow Rate FiO2 06/30/17 08:00 97.8 60 20 95/54 94 Nasal Cannula 4.0 06/30/17 08:00 60 06/30/17 07:19 60 18 Nasal Cannula 4.0 36 06/30/17 07:18 Nasal Cannula 4.0 36 06/30/17 07:18 97 Nasal Cannula 4.0 36 06/30/17 04:00 60 06/30/17 04:00 98.0 60 20 111/60 92 Nasal Cannula 4.0 06/30/17 00:00 98.0 63 24 109/64 93 Nasal Cannula 4.0 06/29/17 21:00 64 18 Nasal Cannula 4.0 36 06/29/17 21:00 Nasal Cannula 4.0 36 06/29/17 21:00 93 Nasal Cannula 4.0 36 06/29/17 20:00 98.1 63 24 106/61 92 Nasal Cannula 4.0 06/29/17 20:00 63 06/29/17 16:00 62 06/29/17 16:00 97.8 63 18 100/59 98 Nasal Cannula 4.0 06/29/17 12:00 97.8 99 18 100/60 99 Nasal Cannula 5.0 06/29/17 12:00 61 Intake and Output 06/30/17 07/01/17 19:00 07:00 Intake Total 202.5 ml Balance 202.5 ml Intake Oral 120 ml IV Total 82.5 ml Laboratory Tests 06/30/17 09:10: White Blood Count 9.7, Red Blood Count 3.31L, Hemoglobin 11.1L, Hematocrit 33.7L , Mean Corpuscular Volume 102H, Mean Corpuscular Hemoglobin 33.4H, Mean Corpuscular Hemoglobin Concent 32.8, Red Cell Distribution Width 13.1, Platelet Count 351, Mean Platelet Volume 5.6L, Neutrophils (%) (Auto) 67.1, Lymphocytes ( %) (Auto) 25.6, Monocytes (%) (Auto) 6.1, Eosinophils (%) (Auto) 0.7, Basophils (%) (Auto) 0.5, Sodium Level 141, Potassium Level 3.9, Chloride Level 102, Carbon Dioxide Level 32, Anion Gap 7, Blood Urea Nitrogen 28H, Creatinine 1.2, Estimat Glomerular Filtration Rate > 60, Glucose Level 131H, Calcium Level 9.1, Vancomycin Level Trough 19.1H Height (Feet): 5 Height (Inches): 11.00 Weight (Pounds): 180 General Appearance: lethargic EENT: normal ENT inspection Neck: normal alignment Cardiovascular: normal peripheral pulses, normal rate, regular rhythm Respiratory/Chest: chest wall non-tender, lungs clear, normal breath sounds Abdomen: normal bowel sounds, non tender, soft Extremities: normal inspection Edema: no edema noted Arm (L), no edema noted Arm (R), no edema noted Leg (L), no edema noted Leg (R), no edema noted Pedal (L), no edema noted Pedal (R), no edema noted Generalized Neurologic: motor weakness Skin: normal pigmentation, warm/dry QUINTON HUMPHRIES Jun 30, 2017 10:39
[2017-06-30] MEDS: Vancomycin 1gm/D5W 275ml IVPB SCH ×2 (11:43)
[2017-06-30 12:00] VITALS: BP 91/57
--- NOTE | 2017-06-30 12:05 | Pulmonology Progress Note ---
Assessment/Plan Assessment/Plan ASSESSMENT acute hypercapnic respiratory failure requiring BiPAP sepsis Pneumonia with pseudomonas left lung collapse COPD exacerbation hypotension, possible shock -resolved encephalopathy schizophrenia anemia of chronic disease pacemaker seizure disorder PLAN OF CARE TACO off Bipap, on O2 via NC, titrate to keep sat above 92% CT chest and fup CXR with evidence of left lung near complete opacification continue HHN and CPT elevate L side of the chest on 2 pillows fup CXR still with complete opacification of left lung continue current treatment with CPT and HHN and chest side elevation fup wtih CXR in am clinically not in distress consider bronchoscopy if no improvement taper steroids Theophylline a/tussive prn abx ID follows sputum cx + Pseudomonas, urine cx negative, blood cx negative ECHO with pEF 60-65% and RVSP of 33 cardio follows per cardio no evidence of CHF exacerbation nephro follows monitor lytes, replace as needed, avoid nephrotoxic BP better seizure precautions, continue Keppra and Tegretol anemia w/up c/w anemia of chronic disease monitor counts, transfuse prn psych follows, diagnosed with schizophrenia and encephalopathy, optimized medication regimen DVT prophylaxis case discussed and evaluated by supervising physician Subjective Allergies: Coded Allergies: CHLORPROMAZINE (Verified Allergy, Unknown, 06/23/17) ERYTHROMYCIN BASE (Verified Allergy, Unknown, 06/23/17) Uncoded Allergies: TAPE (Allergy, Unknown, 06/23/17) Subjective leukocytosis resolved, off BiPAP on O2 via NC BP better CT chest and CXR with near complete opacification left lung no signs of respiratory distress Objective Last 24 Hour Vital Signs Date Time Temp Pulse Resp B/P (MAP) Pulse Ox O2 Delivery O2 Flow Rate FiO2 06/30/17 08:00 97.8 60 20 95/54 94 Nasal Cannula 4.0 06/30/17 08:00 60 06/30/17 07:19 60 18 Nasal Cannula 4.0 36 06/30/17 07:18 Nasal Cannula 4.0 36 06/30/17 07:18 97 Nasal Cannula 4.0 36 06/30/17 04:00 60 06/30/17 04:00 98.0 60 20 111/60 92 Nasal Cannula 4.0 06/30/17 00:00 98.0 63 24 109/64 93 Nasal Cannula 4.0 06/29/17 21:00 64 18 Nasal Cannula 4.0 36 06/29/17 21:00 Nasal Cannula 4.0 36 06/29/17 21:00 93 Nasal Cannula 4.0 36 06/29/17 20:00 98.1 63 24 106/61 92 Nasal Cannula 4.0 06/29/17 20:00 63 06/29/17 16:00 62 06/29/17 16:00 97.8 63 18 100/59 98 Nasal Cannula 4.0 Intake and Output 06/30/17 07/01/17 19:00 07:00 Intake Total 202.5 ml Balance 202.5 ml Intake Oral 120 ml IV Total 82.5 ml Objective General Appearance: no acute distress HEENT: normocephalic, atraumatic, anicteric Respiratory/Chest: no accessory muscle use, decreased breath sounds, other - left chest pacemaker Cardiovascular: normal rate, regular rhythm, no JVD Abdomen: normal bowel sounds, soft, non tender, non distended Extremities: no edema Neurologic/Psychiatric: awake, responsive Laboratory Tests 06/30/17 09:10: White Blood Count 9.7, Red Blood Count 3.31L, Hemoglobin 11.1L, Hematocrit 33.7L , Mean Corpuscular Volume 102H, Mean Corpuscular Hemoglobin 33.4H, Mean Corpuscular Hemoglobin Concent 32.8, Red Cell Distribution Width 13.1, Platelet Count 351, Mean Platelet Volume 5.6L, Neutrophils (%) (Auto) 67.1, Lymphocytes ( %) (Auto) 25.6, Monocytes (%) (Auto) 6.1, Eosinophils (%) (Auto) 0.7, Basophils (%) (Auto) 0.5, Sodium Level 141, Potassium Level 3.9, Chloride Level 102, Carbon Dioxide Level 32, Anion Gap 7, Blood Urea Nitrogen 28H, Creatinine 1.2, Estimat Glomerular Filtration Rate > 60, Glucose Level 131H, Calcium Level 9.1, Vancomycin Level Trough 19.1H Current Medications Medications (Trade) Dose Ordered Sig/Karen Route PRN Reason Start Time Stop Time Status Last Admin Dose Admin Albuterol/ Ipratropium (DuoNeb 0.5-3(2.5)mg/3ml) 3 ml Q4H PRN HHN dyspnea 06/29/17 13:30 07/01/17 13:29 Carbamazepine (TEGretol) 200 mg FOUR TIMES A DAY ORAL 06/28/17 13:00 07/23/17 12:59 06/30/17 08:08 Dextrose (Dextrose 50%) STAT PRN IV Hypoglycemia 06/28/17 12:00 07/25/17 11:59 Docusate Sodium (Colace) 100 mg DAILY ORAL 06/29/17 09:00 07/29/17 08:59 06/30/17 08:08 Heparin Sodium (Porcine) (Heparin 5000 units/ml) 5,000 units EVERY 12 HOURS SUBQ 06/28/17 21:00 07/23/17 20:59 06/30/17 08:07 Levetiracetam (Keppra) 500 mg Q12HR ORAL 06/28/17 21:00 07/23/17 20:59 06/30/17 08:07 Lorazepam (Ativan 2mg/ml 1ml) 0.5 mg Q4H PRN IV For Anxiety 06/28/17 12:00 07/02/17 11:59 Methylprednisolone Sodium Succinate (Solu-MEDROL) 60 mg Q12HR IV 06/29/17 21:00 07/23/17 17:59 06/30/17 08:06 Morphine Sulfate (Morphine Sulfate) 2 mg Q4H PRN IVP severe pain 7-10 06/28/17 12:00 07/02/17 11:59 Nitroglycerin (Ntg) 0.4 mg Q5M X 3 DOSES PRN SL Prn Chest Pain 06/28/17 12:00 07/23/17 13:29 Olanzapine (ZyPREXA) 20 mg BEDTIME ORAL 06/28/17 21:00 07/24/17 08:59 06/29/17 20:49 Ondansetron HCl (Zofran) 4 mg Q6H PRN IVP Nausea & Vomiting 06/28/17 12:00 07/23/17 11:59 Piperacillin Sod/ Tazobactam Sod 3.375 gm/Dextrose 110 ml @ 27.5 mls/hr EVERY 8 HOURS IVPB 06/28/17 14:00 07/02/17 21:59 06/30/17 05:44 Temazepam (Restoril) 15 mg HSPRN PRN ORAL Insomnia 06/29/17 20:00 07/03/17 19:59 Theophylline (Dane-Dur) 100 mg EVERY 12 HOURS ORAL 06/28/17 21:00 07/23/17 20:59 06/30/17 08:07 Vancomycin HCl (Vanco rx to dose) 1 ea DAILY PRN MISC Per rx protocol 06/28/17 13:00 07/28/17 12:59 Vancomycin HCl 1 gm/Dextrose 275 ml @ 183.708 mls/hr Q24H IVPB 06/30/17 11:00 07/05/17 10:59 06/30/17 11:43 Junior (Aisha)Kell NP Jun 30, 2017 12:05
[2017-06-30] MEDS ORDERED: Bisacodyl EC 5mg tab ORAL ONE (14:45)
--- NOTE | 2017-06-30 15:28 | Nephrology Progress Note ---
Assessment/Plan Assessment 1. Possible congestive heart failure exacerbation 2. Elevated bicarbonate is in response to severe respiratory acidosis. 3. Hypertension. 4. History of chronic obstructive pulmonary disease. Plan plan to continue lasix monitoring renal function monitoring electrolyte replace as need avoid any NSAID Subjective ROS Limited/Unobtainable: Yes Constitutional: Reports: no symptoms HEENT: Reports: no symptoms Genitourinary: Reports: no symptoms Neurologic/Psychiatric: Reports: no symptoms Subjective awake confused Objective Objective Last 24 Hour Vital Signs Date Time Temp Pulse Resp B/P (MAP) Pulse Ox O2 Delivery O2 Flow Rate FiO2 06/30/17 12:00 97.6 60 22 91/57 92 Nasal Cannula 4.0 06/30/17 12:00 60 06/30/17 08:00 97.8 60 20 95/54 94 Nasal Cannula 4.0 06/30/17 08:00 60 06/30/17 07:19 60 18 Nasal Cannula 4.0 36 06/30/17 07:18 Nasal Cannula 4.0 36 06/30/17 07:18 97 Nasal Cannula 4.0 36 06/30/17 04:00 60 06/30/17 04:00 98.0 60 20 111/60 92 Nasal Cannula 4.0 06/30/17 00:00 98.0 63 24 109/64 93 Nasal Cannula 4.0 06/29/17 21:00 64 18 Nasal Cannula 4.0 36 06/29/17 21:00 Nasal Cannula 4.0 36 06/29/17 21:00 93 Nasal Cannula 4.0 36 06/29/17 20:00 98.1 63 24 106/61 92 Nasal Cannula 4.0 06/29/17 20:00 63 06/29/17 16:00 62 06/29/17 16:00 97.8 63 18 100/59 98 Nasal Cannula 4.0 Intake and Output 06/30/17 07/01/17 19:00 07:00 Intake Total 202.5 ml Balance 202.5 ml Intake Oral 120 ml IV Total 82.5 ml Laboratory Tests 06/30/17 09:10: White Blood Count 9.7, Red Blood Count 3.31L, Hemoglobin 11.1L, Hematocrit 33.7L , Mean Corpuscular Volume 102H, Mean Corpuscular Hemoglobin 33.4H, Mean Corpuscular Hemoglobin Concent 32.8, Red Cell Distribution Width 13.1, Platelet Count 351, Mean Platelet Volume 5.6L, Neutrophils (%) (Auto) 67.1, Lymphocytes ( %) (Auto) 25.6, Monocytes (%) (Auto) 6.1, Eosinophils (%) (Auto) 0.7, Basophils (%) (Auto) 0.5, Sodium Level 141, Potassium Level 3.9, Chloride Level 102, Carbon Dioxide Level 32, Anion Gap 7, Blood Urea Nitrogen 28H, Creatinine 1.2, Estimat Glomerular Filtration Rate > 60, Glucose Level 131H, Calcium Level 9.1, Vancomycin Level Trough 19.1H Height (Feet): 5 Height (Inches): 11.00 Weight (Pounds): 180 Objective HEAD AND NECK: No JVP. No LAD. No thyromegaly. Extraocular movements intact. Pupils are reactive to light and accommodation. LUNGS: Clear to auscultation. CARDIAC: Regular rate and rhythm. S1 and S2. No murmur. No rub. ABDOMEN: Soft, nontender, and nondistended. EXTREMITIES: No edema. No clubbing. No cyanosis. NEUROLOGIC: The patient opened up his eyes, not following verbal commands. RANCHO SYKES Jun 30, 2017 15:28
[2017-06-30 16:00] VITALS: BP 106/52
--- NOTE | 2017-06-30 18:35 | General Progress Note ---
Assessment/Plan Status: stable, progressing Assessment/Plan Dementia schizophrenia -zyprexa Subjective Neurologic/Psychiatric: Reports: anxiety, depressed Allergies: Coded Allergies: CHLORPROMAZINE (Verified Allergy, Unknown, 06/23/17) ERYTHROMYCIN BASE (Verified Allergy, Unknown, 06/23/17) Uncoded Allergies: TAPE (Allergy, Unknown, 06/23/17) Subjective more stable today and less agitated. Objective Last 24 Hour Vital Signs Date Time Temp Pulse Resp B/P (MAP) Pulse Ox O2 Delivery O2 Flow Rate FiO2 06/30/17 16:00 97.9 60 20 106/52 93 Nasal Cannula 4.0 06/30/17 16:00 74 06/30/17 12:00 97.6 60 22 91/57 92 Nasal Cannula 4.0 06/30/17 12:00 60 06/30/17 08:00 97.8 60 20 95/54 94 Nasal Cannula 4.0 06/30/17 08:00 60 06/30/17 07:19 60 18 Nasal Cannula 4.0 36 06/30/17 07:18 Nasal Cannula 4.0 36 06/30/17 07:18 97 Nasal Cannula 4.0 36 06/30/17 04:00 60 06/30/17 04:00 98.0 60 20 111/60 92 Nasal Cannula 4.0 06/30/17 00:00 98.0 63 24 109/64 93 Nasal Cannula 4.0 06/29/17 21:00 64 18 Nasal Cannula 4.0 36 06/29/17 21:00 Nasal Cannula 4.0 36 06/29/17 21:00 93 Nasal Cannula 4.0 36 06/29/17 20:00 98.1 63 24 106/61 92 Nasal Cannula 4.0 06/29/17 20:00 63 Intake and Output 06/30/17 07/01/17 19:00 07:00 Intake Total 624.916 ml Balance 624.916 ml Intake Oral 120 ml IV Total 504.916 ml Laboratory Tests 06/30/17 09:10: White Blood Count 9.7, Red Blood Count 3.31L, Hemoglobin 11.1L, Hematocrit 33.7L , Mean Corpuscular Volume 102H, Mean Corpuscular Hemoglobin 33.4H, Mean Corpuscular Hemoglobin Concent 32.8, Red Cell Distribution Width 13.1, Platelet Count 351, Mean Platelet Volume 5.6L, Neutrophils (%) (Auto) 67.1, Lymphocytes ( %) (Auto) 25.6, Monocytes (%) (Auto) 6.1, Eosinophils (%) (Auto) 0.7, Basophils (%) (Auto) 0.5, Sodium Level 141, Potassium Level 3.9, Chloride Level 102, Carbon Dioxide Level 32, Anion Gap 7, Blood Urea Nitrogen 28H, Creatinine 1.2, Estimat Glomerular Filtration Rate > 60, Glucose Level 131H, Calcium Level 9.1, Vancomycin Level Trough 19.1H Height (Feet): 5 Height (Inches): 11.00 Weight (Pounds): 180 General Appearance: no apparent distress, confused Neurologic: disoriented, depressed affect Hill Hare M.D. Jun 30, 2017 18:35
--- NOTE | 2017-06-30 18:49 | Infectious Diseases Prog Note ---
Assessment/Plan Problems: (1) HCAP (healthcare-associated pneumonia) Assessment & Plan: due to pseudomonas aeruginosa on zosyn, and vancomycin , repeated CXR showed worsening left lung opacifications , CT chest showed left complete lower lobe collapse, and partial collapse in [place]. recommend bronchoscopy for further evaluation and to remove possible mucous plug, will treat with vancomycin and zosyn for two weeks depending on his clinical improvement , EOT 07/07/17 (2) Acute respiratory failure Assessment & Plan: due to pneumonia, and lung collapse , continu antibiotics , monitor ABG, and CXR, taper steroids, pulmonary is following (3) UTI (urinary tract infection) Assessment & Plan: less likely with negative urine culture, already on zosyn empirically (4) Sepsis Assessment & Plan: due to the above, continue wide spectrum antibiotics pending culture results (5) Fever Assessment & Plan: due to left lung collapse and possible mucous plug, already on zosyn and vancomycin, consider bronchoscopy and suctioning Subjective ROS Limited/Unobtainable: Yes Allergies: Coded Allergies: CHLORPROMAZINE (Verified Allergy, Unknown, 06/23/17) ERYTHROMYCIN BASE (Verified Allergy, Unknown, 06/23/17) Uncoded Allergies: TAPE (Allergy, Unknown, 06/23/17) Subjective he was not in distress , respond only to deep stimulation, no fever , or coughing , no SOB Objective Vital Signs Last 24 Hour Vital Signs Date Time Temp Pulse Resp B/P (MAP) Pulse Ox O2 Delivery O2 Flow Rate FiO2 06/30/17 16:00 97.9 60 20 106/52 93 Nasal Cannula 4.0 06/30/17 16:00 74 06/30/17 12:00 97.6 60 22 91/57 92 Nasal Cannula 4.0 06/30/17 12:00 60 06/30/17 08:00 97.8 60 20 95/54 94 Nasal Cannula 4.0 06/30/17 08:00 60 06/30/17 07:19 60 18 Nasal Cannula 4.0 36 06/30/17 07:18 Nasal Cannula 4.0 36 06/30/17 07:18 97 Nasal Cannula 4.0 36 06/30/17 04:00 60 06/30/17 04:00 98.0 60 20 111/60 92 Nasal Cannula 4.0 06/30/17 00:00 98.0 63 24 109/64 93 Nasal Cannula 4.0 10/14/17 21:00 64 18 Nasal Cannula 4.0 36 06/29/17 21:00 Nasal Cannula 4.0 36 06/29/17 21:00 93 Nasal Cannula 4.0 36 06/29/17 20:00 98.1 63 24 106/61 92 Nasal Cannula 4.0 06/29/17 20:00 63 Height (Feet): 5 Height (Inches): 11.00 Weight (Pounds): 180 General Appearance: WD/WN, no acute distress HEENT: normocephalic, atraumatic, anicteric, mucous membranes moist, PERRL, supple, no JVD Respiratory/Chest: chest wall non-tender, no respiratory distress, no accessory muscle use, decreased breath sounds, crackles/rales Cardiovascular: normal peripheral pulses, normal rate, regular rhythm, no gallop/murmur, no JVD Abdomen: normal bowel sounds, soft, non tender, no organomegaly, non distended , no mass, no scars Genitourinary: normal external genitalia Extremities: no cyanosis, no clubbing Skin: no rash, no lesions Neurologic/Psychiatric: responsive Lymphatic: no neck adenopathy, no groin adenopathy Laboratory Tests Test 06/30/17 09:10 White Blood Count 9.7 K/UL (4.8-10.8) Red Blood Count 3.31 M/UL (4.70-6.10) L Hemoglobin 11.1 G/DL (14.2-18.0) L Hematocrit 33.7 % (42.0-52.0) L Mean Corpuscular Volume 102 FL (80-99) H Mean Corpuscular Hemoglobin 33.4 PG (27.0-31.0) H Mean Corpuscular Hemoglobin Concent 32.8 G/DL (32.0-36.0) Red Cell Distribution Width 13.1 % (11.6-14.8) Platelet Count 351 K/UL (150-450) Mean Platelet Volume 5.6 FL (6.5-10.1) L Neutrophils (%) (Auto) 67.1 % (45.0-75.0) Lymphocytes (%) (Auto) 25.6 % (20.0-45.0) Monocytes (%) (Auto) 6.1 % (1.0-10.0) Eosinophils (%) (Auto) 0.7 % (0.0-3.0) Basophils (%) (Auto) 0.5 % (0.0-2.0) Sodium Level 141 MMOL/L (136-145) Potassium Level 3.9 MMOL/L (3.5-5.1) Chloride Level 102 MMOL/L (98-107) Carbon Dioxide Level 32 MMOL/L (21-32) Anion Gap 7 (5-15) Blood Urea Nitrogen 28 mg/dL (7-18) H Creatinine 1.2 MG/DL (0.55-1.30) Estimat Glomerular Filtration Rate > 60 mL/min (>60) Glucose Level 131 MG/DL (74-106) H Calcium Level 9.1 MG/DL (8.5-10.1) Vancomycin Level Trough 19.1 ug/mL (5.0-12.0) H Current Medications Medications (Trade) Dose Ordered Sig/Karen Route PRN Reason Start Time Stop Time Status Last Admin Dose Admin Albuterol/ Ipratropium (DuoNeb 0.5-3(2.5)mg/3ml) 3 ml Q4H PRN HHN dyspnea 06/29/17 13:30 07/01/17 13:29 Carbamazepine (TEGretol) 200 mg FOUR TIMES A DAY ORAL 06/28/17 13:00 07/23/17 12:59 06/30/17 17:26 Dextrose (Dextrose 50%) STAT PRN IV Hypoglycemia 06/28/17 12:00 07/25/17 11:59 Docusate Sodium (Colace) 100 mg DAILY ORAL 06/29/17 09:00 07/29/17 08:59 06/30/17 08:08 Heparin Sodium (Porcine) (Heparin 5000 units/ml) 5,000 units EVERY 12 HOURS SUBQ 06/28/17 21:00 07/23/17 20:59 06/30/17 08:07 Levetiracetam (Keppra) 500 mg Q12HR ORAL 06/28/17 21:00 07/23/17 20:59 06/30/17 08:07 Lorazepam (Ativan 2mg/ml 1ml) 0.5 mg Q4H PRN IV For Anxiety 06/28/17 12:00 07/02/17 11:59 Methylprednisolone Sodium Succinate (Solu-MEDROL) 60 mg DAILY IV 07/01/17 09:00 07/23/17 17:59 Morphine Sulfate (Morphine Sulfate) 2 mg Q4H PRN IVP severe pain 7-10 06/28/17 12:00 07/02/17 11:59 Nitroglycerin (Ntg) 0.4 mg Q5M X 3 DOSES PRN SL Prn Chest Pain 06/28/17 12:00 07/23/17 13:29 Olanzapine (ZyPREXA) 20 mg BEDTIME ORAL 06/28/17 21:00 07/24/17 08:59 06/29/17 20:49 Ondansetron HCl (Zofran) 4 mg Q6H PRN IVP Nausea & Vomiting 06/28/17 12:00 07/23/17 11:59 Piperacillin Sod/ Tazobactam Sod 3.375 gm/Dextrose 110 ml @ 27.5 mls/hr EVERY 8 HOURS IVPB 06/28/17 14:00 07/02/17 21:59 06/30/17 14:24 Temazepam (Restoril) 15 mg HSPRN PRN ORAL Insomnia 06/29/17 20:00 07/03/17 19:59 Theophylline (Dane-Dur) 100 mg EVERY 12 HOURS ORAL 06/28/17 21:00 07/23/17 20:59 06/30/17 08:07 Vancomycin HCl (Vanco rx to dose) 1 ea DAILY PRN MISC Per rx protocol 06/28/17 13:00 07/28/17 12:59 Vancomycin HCl 1 gm/Dextrose 275 ml @ 183.708 mls/hr Q24H IVPB 06/30/17 11:00 07/05/17 10:59 06/30/17 11:43 Dafne Orourke M.D. Jun 30, 2017 18:49
[2017-06-30 20:00] VITALS: BP 97/57
--- NOTE | 2017-06-30 23:47 | Cardiology Progress Note ---
Assessment/Plan Assessment/Plan 1. Sinus tachycardia, likely due to hypoxia. 2. Hypotension, due to sepsis, normal LV systolic function with LVEF at 60-65%. 3. Respiratory failure due to left lung collapse. 4. Dual chamber pacemaker implantation, currently intrinsic atrial and ventricular activity. 5. HCAP, on IV ABx. Subjective Subjective No cardiac events. Sinus rhythm at 71. Objective Last 24 Hour Vital Signs Date Time Temp Pulse Resp B/P (MAP) Pulse Ox O2 Delivery O2 Flow Rate FiO2 06/30/17 20:24 71 18 Venturi Mask 14.0 55 06/30/17 20:00 97.7 60 22 97/57 92 Nasal Cannula 4.0 06/30/17 20:00 67 06/30/17 19:00 97 Nasal Cannula 4.0 36 06/30/17 19:00 Venturi Mask 14.0 55 06/30/17 16:00 97.9 60 20 106/52 93 Nasal Cannula 4.0 06/30/17 16:00 74 06/30/17 12:00 97.6 60 22 91/57 92 Nasal Cannula 4.0 06/30/17 12:00 60 06/30/17 08:00 97.8 60 20 95/54 94 Nasal Cannula 4.0 06/30/17 08:00 60 06/30/17 07:19 60 18 Nasal Cannula 4.0 36 06/30/17 07:18 Nasal Cannula 4.0 36 06/30/17 07:18 97 Nasal Cannula 4.0 36 06/30/17 04:00 60 06/30/17 04:00 98.0 60 20 111/60 92 Nasal Cannula 4.0 06/30/17 00:00 98.0 63 24 109/64 93 Nasal Cannula 4.0 Intake and Output 06/30/17 07/01/17 19:00 07:00 Intake Total 679.916 ml Output Total 550 ml Balance 129.916 ml Intake Oral 120 ml IV Total 559.916 ml Output Urine Total 550 ml 2D Echo: LVEF 60-65%, mild TR with RVSP at 33 mmHg Laboratory Tests Test 06/30/17 09:10 White Blood Count 9.7 K/UL (4.8-10.8) Red Blood Count 3.31 M/UL (4.70-6.10) L Hemoglobin 11.1 G/DL (14.2-18.0) L Hematocrit 33.7 % (42.0-52.0) L Mean Corpuscular Volume 102 FL (80-99) H Mean Corpuscular Hemoglobin 33.4 PG (27.0-31.0) H Mean Corpuscular Hemoglobin Concent 32.8 G/DL (32.0-36.0) Red Cell Distribution Width 13.1 % (11.6-14.8) Platelet Count 351 K/UL (150-450) Mean Platelet Volume 5.6 FL (6.5-10.1) L Neutrophils (%) (Auto) 67.1 % (45.0-75.0) Lymphocytes (%) (Auto) 25.6 % (20.0-45.0) Monocytes (%) (Auto) 6.1 % (1.0-10.0) Eosinophils (%) (Auto) 0.7 % (0.0-3.0) Basophils (%) (Auto) 0.5 % (0.0-2.0) Sodium Level 141 MMOL/L (136-145) Potassium Level 3.9 MMOL/L (3.5-5.1) Chloride Level 102 MMOL/L (98-107) Carbon Dioxide Level 32 MMOL/L (21-32) Anion Gap 7 (5-15) Blood Urea Nitrogen 28 mg/dL (7-18) H Creatinine 1.2 MG/DL (0.55-1.30) Estimat Glomerular Filtration Rate > 60 mL/min (>60) Glucose Level 131 MG/DL (74-106) H Calcium Level 9.1 MG/DL (8.5-10.1) Vancomycin Level Trough 19.1 ug/mL (5.0-12.0) H Objective HEENT: Atraumatic and normocephalic. ENT, pupils are equal, round, and reactive to light and accommodation. Pale conjunctiva. NECK: JVP cannot be assessed. No carotid bruit. Carotid upstrokes 2+ bilaterally. LUNGS: Bilateral rhonchi CVS: Normal S1, S2. no murmurs, gallops or rubs. PMI is at fourth intercostal space in the midclavicular line. ABDOMEN: Soft, nontender, and nondistended. No hepatosplenomegaly. Positive bowel sounds. EXTREMITIES: No evidence of edema, clubbing, or cyanosis. CALLUM BARON Jun 30, 2017 23:47
[2017-07-01] VITALS (7 sets, daily range): BP systolic 89–117; BP diastolic 50–64
[2017-07-01 04:06] LABS: BASOPHILS % (AUTO) 0.6 % (0.0-2.0); HEMATOCRIT 31.3 % (42.0-52.0); HEMOGLOBIN 10.8 G/DL (14.2-18.0); LYMPHOCYTES % (AUTO) 29.2 % (20.0-45.0); MEAN CORPUSCULAR VOLUME 103 FL (80-99); MONOCYTES % (AUTO) 7.8 % (1.0-10.0); NEUTROPHILS % (AUTO) 61.4 % (45.0-75.0); PLATELET COUNT 337 K/UL (150-450); RED BLOOD COUNT 3.05 M/UL (4.70-6.10); RED CELL DISTRIBUTION WIDTH 13.6 % (11.6-14.8); WHITE BLOOD COUNT 11.2 K/UL (4.8-10.8)
[2017-07-01 04:18] LABS: ANION GAP 6 (5-15); BLOOD UREA NITROGEN 26 mg/dL (7-18); CALCIUM 9.1 MG/DL (8.5-10.1); CARBON DIOXIDE 31 MMOL/L (21-32); CHLORIDE 101 MMOL/L (98-107); CREATININE 1.2 MG/DL (0.55-1.30); POTASSIUM 3.5 MMOL/L (3.5-5.1); SODIUM 138 MMOL/L (136-145)
[2017-07-01] MEDS: Piperacillin/Tazobactam 3.375 GM in D5W 110 ML IVPB SCH ×3 (05:44→21:45)
[2017-07-01] MEDS ORDERED: Solu-MEDROL 125mg Inj IV SCH (09:00)
[2017-07-01] MEDS: Theophylline ER 100mg ORAL SCH ×2 (10:41→21:41)
[2017-07-01] MEDS: Docusate 100mg cap ORAL SCH (10:41)
--- NOTE | 2017-07-01 10:41 | Diagnostic Imaging Report ---
Indication: SOB Technique: One view of the chest Comparison: 06/30/2017 Findings: There is persistent complete opacification of the right hemithorax. Right infrahilar pulmonary parenchymal opacity is again demonstrated, unchanged. Left chest pacemaker is again demonstrated Impression: Unchanged, over one day, findings as above.
[2017-07-01] MEDS: carBAMazepine 200mg tab ORAL SCH ×4 (10:42→21:41)
[2017-07-01] MEDS: Heparin 5000 units/ml inj SUBQ SCH ×2 (10:43→21:44)
[2017-07-01] MEDS: Vancomycin 1gm/D5W 275ml IVPB SCH ×2 (11:00)
--- NOTE | 2017-07-01 12:12 | General Progress Note ---
Assessment/Plan Problem List: (1) Respiratory failure ICD Codes: J96.90 - Respiratory failure, unspecified, unspecified whether with hypoxia or hypercapnia SNOMED: 983952476 (2) Sepsis ICD Codes: A41.9 - Sepsis, unspecified organism SNOMED: 71422430 (3) UTI (urinary tract infection) ICD Codes: N39.0 - Urinary tract infection, site not specified SNOMED: 00752553 (4) Schizophrenia ICD Codes: F20.9 - Schizophrenia, unspecified SNOMED: 37679888 (5) History of pacemaker ICD Codes: Z95.0 - Presence of cardiac pacemaker SNOMED: 316078492 (6) Limited mobility ICD Codes: Z74.09 - Other reduced mobility SNOMED: 7542654 Status: unchanged Assessment/Plan o2 pul tx ot pt diet abx cbc bmp am Subjective Constitutional: Reports: weakness Allergies: Coded Allergies: CHLORPROMAZINE (Verified Allergy, Unknown, 06/23/17) ERYTHROMYCIN BASE (Verified Allergy, Unknown, 06/23/17) Uncoded Allergies: TAPE (Allergy, Unknown, 06/23/17) All Systems: reviewed and negative except above Subjective o2nc sleepy Objective Last 24 Hour Vital Signs Date Time Temp Pulse Resp B/P (MAP) Pulse Ox O2 Delivery O2 Flow Rate FiO2 07/01/17 08:00 60 07/01/17 08:00 98.2 61 19 92/50 100 Non-Rebreather 100 07/01/17 07:37 96 Venturi Mask 14.0 55 07/01/17 07:37 Venturi Mask 14.0 55 07/01/17 07:36 60 18 Venturi Mask 14.0 55 07/01/17 04:00 97.6 60 22 94/54 96 Non-Rebreather 100 07/01/17 04:00 70 07/01/17 00:00 63 07/01/17 00:00 97.8 68 22 117/64 96 Venturi Mask 55 06/30/17 20:24 71 18 Venturi Mask 14.0 55 06/30/17 20:00 97.7 60 22 97/57 92 Nasal Cannula 4.0 06/30/17 20:00 67 06/30/17 19:00 97 Nasal Cannula 4.0 36 06/30/17 19:00 Venturi Mask 14.0 55 06/30/17 16:00 97.9 60 20 106/52 93 Nasal Cannula 4.0 06/30/17 16:00 74 Laboratory Tests 07/01/17 02:55: White Blood Count 11.2H, Red Blood Count 3.05L, Hemoglobin 10.8L, Hematocrit 31.3L, Mean Corpuscular Volume 103H, Mean Corpuscular Hemoglobin 35.4H, Mean Corpuscular Hemoglobin Concent 34.5, Red Cell Distribution Width 13.6, Platelet Count 337, Mean Platelet Volume 5.7L, Neutrophils (%) (Auto) 61.4, Lymphocytes ( %) (Auto) 29.2, Monocytes (%) (Auto) 7.8, Eosinophils (%) (Auto) 1.0, Basophils (%) (Auto) 0.6, Sodium Level 138, Potassium Level 3.5, Chloride Level 101, Carbon Dioxide Level 31, Anion Gap 6, Blood Urea Nitrogen 26H, Creatinine 1.2, Estimat Glomerular Filtration Rate > 60, Glucose Level 98, Calcium Level 9.1, Triglycerides Level [Pending] Height (Feet): 5 Height (Inches): 11.00 Weight (Pounds): 180 General Appearance: lethargic EENT: normal ENT inspection Neck: normal alignment Cardiovascular: normal peripheral pulses, normal rate, regular rhythm Respiratory/Chest: chest wall non-tender, lungs clear, normal breath sounds Abdomen: normal bowel sounds, non tender, soft Extremities: normal inspection Edema: no edema noted Arm (L), no edema noted Arm (R), no edema noted Leg (L), no edema noted Leg (R), no edema noted Pedal (L), no edema noted Pedal (R), no edema noted Generalized Neurologic: motor weakness Skin: normal pigmentation, warm/dry QUINTON HUMPHRIES Jul 01, 2017 12:12
--- NOTE | 2017-07-01 12:12 | General Progress Note ---
Assessment/Plan Problem List: (1) Respiratory failure ICD Codes: J96.90 - Respiratory failure, unspecified, unspecified whether with hypoxia or hypercapnia SNOMED: 568008350 (2) Sepsis ICD Codes: A41.9 - Sepsis, unspecified organism SNOMED: 51785099 (3) UTI (urinary tract infection) ICD Codes: N39.0 - Urinary tract infection, site not specified SNOMED: 11410692 (4) Schizophrenia ICD Codes: F20.9 - Schizophrenia, unspecified SNOMED: 90822561 (5) History of pacemaker ICD Codes: Z95.0 - Presence of cardiac pacemaker SNOMED: 803155626 (6) Limited mobility ICD Codes: Z74.09 - Other reduced mobility SNOMED: 2447553 Status: unchanged Assessment/Plan o2 pul tx ot pt diet abx cbc bmp am Subjective Constitutional: Reports: weakness Allergies: Coded Allergies: CHLORPROMAZINE (Verified Allergy, Unknown, 06/23/17) ERYTHROMYCIN BASE (Verified Allergy, Unknown, 06/23/17) Uncoded Allergies: TAPE (Allergy, Unknown, 06/23/17) All Systems: reviewed and negative except above Subjective o2nc sleepy Objective Last 24 Hour Vital Signs Date Time Temp Pulse Resp B/P (MAP) Pulse Ox O2 Delivery O2 Flow Rate FiO2 07/01/17 08:00 60 07/01/17 08:00 98.2 61 19 92/50 100 Non-Rebreather 100 07/01/17 07:37 96 Venturi Mask 14.0 55 07/01/17 07:37 Venturi Mask 14.0 55 07/01/17 07:36 60 18 Venturi Mask 14.0 55 07/01/17 04:00 97.6 60 22 94/54 96 Non-Rebreather 100 07/01/17 04:00 70 07/01/17 00:00 63 07/01/17 00:00 97.8 68 22 117/64 96 Venturi Mask 55 06/30/17 20:24 71 18 Venturi Mask 14.0 55 06/30/17 20:00 97.7 60 22 97/57 92 Nasal Cannula 4.0 06/30/17 20:00 67 06/30/17 19:00 97 Nasal Cannula 4.0 36 06/30/17 19:00 Venturi Mask 14.0 55 06/30/17 16:00 97.9 60 20 106/52 93 Nasal Cannula 4.0 06/30/17 16:00 74 Laboratory Tests 07/01/17 02:55: White Blood Count 11.2H, Red Blood Count 3.05L, Hemoglobin 10.8L, Hematocrit 31.3L, Mean Corpuscular Volume 103H, Mean Corpuscular Hemoglobin 35.4H, Mean Corpuscular Hemoglobin Concent 34.5, Red Cell Distribution Width 13.6, Platelet Count 337, Mean Platelet Volume 5.7L, Neutrophils (%) (Auto) 61.4, Lymphocytes ( %) (Auto) 29.2, Monocytes (%) (Auto) 7.8, Eosinophils (%) (Auto) 1.0, Basophils (%) (Auto) 0.6, Sodium Level 138, Potassium Level 3.5, Chloride Level 101, Carbon Dioxide Level 31, Anion Gap 6, Blood Urea Nitrogen 26H, Creatinine 1.2, Estimat Glomerular Filtration Rate > 60, Glucose Level 98, Calcium Level 9.1, Triglycerides Level [Pending] Height (Feet): 5 Height (Inches): 11.00 Weight (Pounds): 180 General Appearance: lethargic EENT: normal ENT inspection Neck: normal alignment Cardiovascular: normal peripheral pulses, normal rate, regular rhythm Respiratory/Chest: chest wall non-tender, lungs clear, normal breath sounds Abdomen: normal bowel sounds, non tender, soft Extremities: normal inspection Edema: no edema noted Arm (L), no edema noted Arm (R), no edema noted Leg (L), no edema noted Leg (R), no edema noted Pedal (L), no edema noted Pedal (R), no edema noted Generalized Neurologic: motor weakness Skin: normal pigmentation, warm/dry QUINTON HUMPHRIES Jul 01, 2017 12:12
--- NOTE | 2017-07-01 12:12 | General Progress Note ---
Assessment/Plan Problem List: (1) Respiratory failure ICD Codes: J96.90 - Respiratory failure, unspecified, unspecified whether with hypoxia or hypercapnia SNOMED: 974430723 (2) Sepsis ICD Codes: A41.9 - Sepsis, unspecified organism SNOMED: 19281502 (3) UTI (urinary tract infection) ICD Codes: N39.0 - Urinary tract infection, site not specified SNOMED: 53267413 (4) Schizophrenia ICD Codes: F20.9 - Schizophrenia, unspecified SNOMED: 07558190 (5) History of pacemaker ICD Codes: Z95.0 - Presence of cardiac pacemaker SNOMED: 665293771 (6) Limited mobility ICD Codes: Z74.09 - Other reduced mobility SNOMED: 3739027 Status: unchanged Assessment/Plan o2 pul tx ot pt diet abx cbc bmp am Subjective Constitutional: Reports: weakness Allergies: Coded Allergies: CHLORPROMAZINE (Verified Allergy, Unknown, 06/23/17) ERYTHROMYCIN BASE (Verified Allergy, Unknown, 06/23/17) Uncoded Allergies: TAPE (Allergy, Unknown, 06/23/17) All Systems: reviewed and negative except above Subjective o2nc sleepy Objective Last 24 Hour Vital Signs Date Time Temp Pulse Resp B/P (MAP) Pulse Ox O2 Delivery O2 Flow Rate FiO2 07/01/17 08:00 60 07/01/17 08:00 98.2 61 19 92/50 100 Non-Rebreather 100 07/01/17 07:37 96 Venturi Mask 14.0 55 07/01/17 07:37 Venturi Mask 14.0 55 07/01/17 07:36 60 18 Venturi Mask 14.0 55 07/01/17 04:00 97.6 60 22 94/54 96 Non-Rebreather 100 07/01/17 04:00 70 07/01/17 00:00 63 07/01/17 00:00 97.8 68 22 117/64 96 Venturi Mask 55 06/30/17 20:24 71 18 Venturi Mask 14.0 55 06/30/17 20:00 97.7 60 22 97/57 92 Nasal Cannula 4.0 06/30/17 20:00 67 06/30/17 19:00 97 Nasal Cannula 4.0 36 06/30/17 19:00 Venturi Mask 14.0 55 06/30/17 16:00 97.9 60 20 106/52 93 Nasal Cannula 4.0 06/30/17 16:00 74 Laboratory Tests 07/01/17 02:55: White Blood Count 11.2H, Red Blood Count 3.05L, Hemoglobin 10.8L, Hematocrit 31.3L, Mean Corpuscular Volume 103H, Mean Corpuscular Hemoglobin 35.4H, Mean Corpuscular Hemoglobin Concent 34.5, Red Cell Distribution Width 13.6, Platelet Count 337, Mean Platelet Volume 5.7L, Neutrophils (%) (Auto) 61.4, Lymphocytes ( %) (Auto) 29.2, Monocytes (%) (Auto) 7.8, Eosinophils (%) (Auto) 1.0, Basophils (%) (Auto) 0.6, Sodium Level 138, Potassium Level 3.5, Chloride Level 101, Carbon Dioxide Level 31, Anion Gap 6, Blood Urea Nitrogen 26H, Creatinine 1.2, Estimat Glomerular Filtration Rate > 60, Glucose Level 98, Calcium Level 9.1, Triglycerides Level [Pending] Height (Feet): 5 Height (Inches): 11.00 Weight (Pounds): 180 General Appearance: lethargic EENT: normal ENT inspection Neck: normal alignment Cardiovascular: normal peripheral pulses, normal rate, regular rhythm Respiratory/Chest: chest wall non-tender, lungs clear, normal breath sounds Abdomen: normal bowel sounds, non tender, soft Extremities: normal inspection Edema: no edema noted Arm (L), no edema noted Arm (R), no edema noted Leg (L), no edema noted Leg (R), no edema noted Pedal (L), no edema noted Pedal (R), no edema noted Generalized Neurologic: motor weakness Skin: normal pigmentation, warm/dry QUINTON HUMPHRIES Jul 01, 2017 12:12
--- NOTE | 2017-07-01 12:13 | Pulmonolgy Critical Care Note ---
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 - Objective Last 24 Hour Vital Signs Date Time Temp Pulse Resp B/P (MAP) Pulse Ox O2 Delivery O2 Flow Rate FiO2 07/01/17 08:00 60 07/01/17 08:00 98.2 61 19 92/50 100 Non-Rebreather 100 07/01/17 07:37 96 Venturi Mask 14.0 55 07/01/17 07:37 Venturi Mask 14.0 55 07/01/17 07:36 60 18 Venturi Mask 14.0 55 07/01/17 04:00 97.6 60 22 94/54 96 Non-Rebreather 100 07/01/17 04:00 70 07/01/17 00:00 63 07/01/17 00:00 97.8 68 22 117/64 96 Venturi Mask 55 06/30/17 20:24 71 18 Venturi Mask 14.0 55 06/30/17 20:00 97.7 60 22 97/57 92 Nasal Cannula 4.0 06/30/17 20:00 67 06/30/17 19:00 97 Nasal Cannula 4.0 36 06/30/17 19:00 Venturi Mask 14.0 55 06/30/17 16:00 97.9 60 20 106/52 93 Nasal Cannula 4.0 06/30/17 16:00 74 Status: sedated Condition: critical HEENT: atraumatic Lungs: clear Heart: HR/BP stable, HR/BP unstable Abdomen: soft, active bowel sounds Extremities: no C/C/E Decubiti: location Critical Care - Subjective ROS Limited/Unobtainable: Yes ICU Day: 1 Condition: critical EKG Rhythm: Sinus Rhythm FI02: 100 Vent Support Mode: BiLevel Sputum Amount: None CXR: total left collapse Labs: Laboratory Tests Test 07/01/17 02:55 White Blood Count 11.2 K/UL (4.8-10.8) H Red Blood Count 3.05 M/UL (4.70-6.10) L Hemoglobin 10.8 G/DL (14.2-18.0) L Hematocrit 31.3 % (42.0-52.0) L Mean Corpuscular Volume 103 FL (80-99) H Mean Corpuscular Hemoglobin 35.4 PG (27.0-31.0) H Mean Corpuscular Hemoglobin Concent 34.5 G/DL (32.0-36.0) Red Cell Distribution Width 13.6 % (11.6-14.8) Platelet Count 337 K/UL (150-450) Mean Platelet Volume 5.7 FL (6.5-10.1) L Neutrophils (%) (Auto) 61.4 % (45.0-75.0) Lymphocytes (%) (Auto) 29.2 % (20.0-45.0) Monocytes (%) (Auto) 7.8 % (1.0-10.0) Eosinophils (%) (Auto) 1.0 % (0.0-3.0) Basophils (%) (Auto) 0.6 % (0.0-2.0) Sodium Level 138 MMOL/L (136-145) Potassium Level 3.5 MMOL/L (3.5-5.1) Chloride Level 101 MMOL/L (98-107) Carbon Dioxide Level 31 MMOL/L (21-32) Anion Gap 6 (5-15) Blood Urea Nitrogen 26 mg/dL (7-18) H Creatinine 1.2 MG/DL (0.55-1.30) Estimat Glomerular Filtration Rate > 60 mL/min (>60) Glucose Level 98 MG/DL (74-106) Calcium Level 9.1 MG/DL (8.5-10.1) Triglycerides Level Pending GWEN MARTE Jul 01, 2017 12:13
[2017-07-01] MEDS ORDERED: LORazepam Inj 2mg/ml 1ml IV PRN (12:15)
[2017-07-01] MEDS ORDERED: Morphine Sulfate 2mg/ml Inj IVP PRN (12:15)
[2017-07-01] MEDS ORDERED: Morphine Sulfate 4mg/ml Inj IVP PRN ×2 (12:15)
--- NOTE | 2017-07-01 12:20 | Wound Care Consultation ---
Wound Assessment Wound Assessment : Wound Present on Admission: No New Wound: Yes Status Change of Wound: No Wound Location Body Site Modif: right, anterior Wound Location Body Site: toe - big toe Wound Type: scab - dry Irma Test: Does not Irma Wound Length: 1.0 Wound Width: 1.0 Wound Depth: utd Percent of Wound Bed Yellow/Wh: 100 - dry Wound Drainage Amount: None Wound Drainage Odor: None/Absent Tissue Surrounding Wound: Intact Wound General Appearance: Asymptomatic Wound Comment #1 Right anterior big toe dry scab adhered to wound bed Recommendation -Local wound care per protocol -Turn and reposition -Keep clean and dry -Optimize nutrition -Offload both heels -Heel protector on both heels -Assess and f/u accordingly for any changes JOSE LEWIS RN Jul 01, 2017 12:20
--- NOTE | 2017-07-01 16:43 | Nephrology Progress Note ---
Assessment/Plan Assessment 1. congestive heart failure exacerbation 2. Elevated bicarbonate is in response to severe respiratory acidosis. 3. Hypertension. 4. History of chronic obstructive pulmonary disease. Plan plan to continue iv antibiotic monitoring renal function monitoring electrolyte replace as need avoid any NSAID Subjective Constitutional: Reports: no symptoms HEENT: Reports: no symptoms Genitourinary: Reports: no symptoms Neurologic/Psychiatric: Reports: no symptoms Subjective no acute events overnight Objective Objective Last 24 Hour Vital Signs Date Time Temp Pulse Resp B/P (MAP) Pulse Ox O2 Delivery O2 Flow Rate FiO2 07/01/17 12:00 85 07/01/17 08:00 60 07/01/17 08:00 98.2 61 19 92/50 100 Non-Rebreather 100 07/01/17 07:37 96 Venturi Mask 14.0 55 07/01/17 07:37 Venturi Mask 14.0 55 07/01/17 07:36 60 18 Venturi Mask 14.0 55 07/01/17 04:00 97.6 60 22 94/54 96 Non-Rebreather 100 07/01/17 04:00 70 07/01/17 00:00 63 07/01/17 00:00 97.8 68 22 117/64 96 Venturi Mask 55 06/30/17 20:24 71 18 Venturi Mask 14.0 55 06/30/17 20:00 97.7 60 22 97/57 92 Nasal Cannula 4.0 06/30/17 20:00 67 06/30/17 19:00 97 Nasal Cannula 4.0 36 06/30/17 19:00 Venturi Mask 14.0 55 Laboratory Tests 07/01/17 02:55: White Blood Count 11.2H, Red Blood Count 3.05L, Hemoglobin 10.8L, Hematocrit 31.3L, Mean Corpuscular Volume 103H, Mean Corpuscular Hemoglobin 35.4H, Mean Corpuscular Hemoglobin Concent 34.5, Red Cell Distribution Width 13.6, Platelet Count 337, Mean Platelet Volume 5.7L, Neutrophils (%) (Auto) 61.4, Lymphocytes ( %) (Auto) 29.2, Monocytes (%) (Auto) 7.8, Eosinophils (%) (Auto) 1.0, Basophils (%) (Auto) 0.6, Sodium Level 138, Potassium Level 3.5, Chloride Level 101, Carbon Dioxide Level 31, Anion Gap 6, Blood Urea Nitrogen 26H, Creatinine 1.2, Estimat Glomerular Filtration Rate > 60, Glucose Level 98, Calcium Level 9.1, Triglycerides Level 274H Height (Feet): 5 Height (Inches): 11.00 Weight (Pounds): 180 Objective HEAD AND NECK: No JVP. No LAD. No thyromegaly. Extraocular movements intact. Pupils are reactive to light and accommodation. LUNGS: Clear to auscultation. CARDIAC: Regular rate and rhythm. S1 and S2. No murmur. No rub. ABDOMEN: Soft, nontender, and nondistended. EXTREMITIES: No edema. No clubbing. No cyanosis. NEUROLOGIC: The patient opened up his eyes, not following verbal commands. RANCHO SYKES Jul 01, 2017 16:43
[2017-07-01] MEDS ORDERED: Albuterol/Ipratropium 3ml neb HHN PRN (19:30)
--- NOTE | 2017-07-01 23:34 | Infectious Diseases Prog Note ---
Assessment/Plan Problems: (1) Sepsis Assessment & Plan: Due to pneumonia probably. (2) Acute respiratory failure Assessment & Plan: In the setting of lung collapse. Remains very tenuous. (3) HCAP (healthcare-associated pneumonia) Assessment & Plan: Follow-up SCx. Continue with vancomycin IV and Zosyn. (4) Pyuria Assessment & Plan: UCx noted. On zosyn already. (5) Collapse of left lung Subjective Allergies: Coded Allergies: CHLORPROMAZINE (Verified Allergy, Unknown, 06/23/17) ERYTHROMYCIN BASE (Verified Allergy, Unknown, 06/23/17) Uncoded Allergies: TAPE (Allergy, Unknown, 06/23/17) Objective Vital Signs Last 24 Hour Vital Signs Date Time Temp Pulse Resp B/P (MAP) Pulse Ox O2 Delivery O2 Flow Rate FiO2 07/01/17 23:27 90 30 96 Facial 100 07/01/17 21:00 94 30 95 Bi-pap 07/01/17 20:59 92 33 92 Bi-pap 07/01/17 20:00 96.4 72 20 116/60 99 Venturi Mask 14.0 55 07/01/17 20:00 76 07/01/17 19:30 92 33 Bi-pap 100 07/01/17 19:30 92 33 94 Facial 100 07/01/17 19:30 Bi-pap 07/01/17 19:30 95 Bi-pap 100 07/01/17 16:00 79 07/01/17 16:00 96.2 63 20 89/55 99 Venturi Mask 55 07/01/17 13:00 98.0 60 19 90/56 100 Venturi Mask 55 07/01/17 12:00 85 07/01/17 12:00 98.2 61 18 93/51 93 Venturi Mask 55 07/01/17 08:00 60 07/01/17 08:00 98.2 61 19 92/50 100 Non-Rebreather 100 07/01/17 07:37 96 Venturi Mask 14.0 55 07/01/17 07:37 Venturi Mask 14.0 55 07/01/17 07:36 60 18 Venturi Mask 14.0 55 07/01/17 04:00 97.6 60 22 94/54 96 Non-Rebreather 100 07/01/17 04:00 70 07/01/17 00:00 63 07/01/17 00:00 97.8 68 22 117/64 96 Venturi Mask 55 Height (Feet): 5 Height (Inches): 11.00 Weight (Pounds): 180 Laboratory Tests Test 07/01/17 02:55 07/01/17 12:02 White Blood Count 11.2 K/UL (4.8-10.8) H Red Blood Count 3.05 M/UL (4.70-6.10) L Hemoglobin 10.8 G/DL (14.2-18.0) L Hematocrit 31.3 % (42.0-52.0) L Mean Corpuscular Volume 103 FL (80-99) H Mean Corpuscular Hemoglobin 35.4 PG (27.0-31.0) H Mean Corpuscular Hemoglobin Concent 34.5 G/DL (32.0-36.0) Red Cell Distribution Width 13.6 % (11.6-14.8) Platelet Count 337 K/UL (150-450) Mean Platelet Volume 5.7 FL (6.5-10.1) L Neutrophils (%) (Auto) 61.4 % (45.0-75.0) Lymphocytes (%) (Auto) 29.2 % (20.0-45.0) Monocytes (%) (Auto) 7.8 % (1.0-10.0) Eosinophils (%) (Auto) 1.0 % (0.0-3.0) Basophils (%) (Auto) 0.6 % (0.0-2.0) Sodium Level 138 MMOL/L (136-145) Potassium Level 3.5 MMOL/L (3.5-5.1) Chloride Level 101 MMOL/L (98-107) Carbon Dioxide Level 31 MMOL/L (21-32) Anion Gap 6 (5-15) Blood Urea Nitrogen 26 mg/dL (7-18) H Creatinine 1.2 MG/DL (0.55-1.30) Estimat Glomerular Filtration Rate > 60 mL/min (>60) Glucose Level 98 MG/DL (74-106) Calcium Level 9.1 MG/DL (8.5-10.1) Triglycerides Level 274 MG/DL (0-200) H Arterial Blood pH 7.435 (7.350-7.450) Arterial Blood Partial Pressure CO2 43.5 mmHg (35.0-45.0) Arterial Blood Partial Pressure O2 48.7 mmHg (75.0-100.0) Arterial Blood HCO3 28.6 mmol/L (22.0-26.0) H Arterial Blood Oxygen Saturation 84.9 % (92.0-98.0) L Arterial Blood Base Excess 3.8 Anthony Test Positive Current Medications Medications (Trade) Dose Ordered Sig/Karen Route PRN Reason Start Time Stop Time Status Last Admin Dose Admin Albuterol/ Ipratropium (DuoNeb 0.5-3(2.5)mg/3ml) 3 ml Q4H PRN HHN Shortness of Breath 07/01/17 19:30 07/06/17 19:29 07/01/17 20:58 Lorazepam (Ativan 2mg/ml 1ml) 2 mg Q4H PRN IV For Anxiety 07/01/17 12:15 07/08/17 12:14 Methylprednisolone Sodium Succinate (Solu-MEDROL) 60 mg DAILY IV 07/01/17 09:00 07/23/17 17:59 07/01/17 10:41 Morphine Sulfate (Morphine Sulfate) 2 mg Q4H PRN IVP Moderate Pain (Pain Scale 4-6) 07/01/17 12:15 07/08/17 12:14 Morphine Sulfate (Morphine Sulfate) 4 mg Q4H PRN IVP Severe Pain (Pain Scale 7-10) 07/01/17 12:15 07/08/17 12:14 Pantoprazole (Protonix) 40 mg DAILY IV 07/02/17 09:00 08/01/17 08:59 Vancomycin HCl 1 gm/Dextrose 275 ml @ 183.708 mls/hr Q24H IVPB 06/30/17 11:00 07/07/17 23:59 07/01/17 11:00 SHEKHAR MERAZ Jul 01, 2017 23:34
[2017-07-01] MEDS ORDERED: Nitroglycerin Subl 0.4mg tab SL PRN (23:45)
--- NOTE | 2017-07-01 23:59 | Cardiology Progress Note ---
Assessment/Plan Assessment/Plan 1. Sinus tachycardia, likely due to hypoxia. 2. Hypotension, due to sepsis, normal LV systolic function with LVEF at 60-65%. 3. Acute respiratory failure due to left lung collapse on bipap mask. 4. Dual chamber pacemaker implantation, currently intrinsic atrial and ventricular activity. 5. HCAP, on IV ABx. Subjective Subjective Transferred to ICU to respiratory failure. No cardiac events. Sinus rhythm at 94. Objective Last 24 Hour Vital Signs Date Time Temp Pulse Resp B/P (MAP) Pulse Ox O2 Delivery O2 Flow Rate FiO2 07/01/17 23:27 90 30 96 Facial 100 07/01/17 21:00 94 30 95 Bi-pap 07/01/17 20:59 92 33 92 Bi-pap 07/01/17 20:00 96.4 72 20 116/60 99 Venturi Mask 14.0 55 07/01/17 20:00 76 07/01/17 19:30 92 33 Bi-pap 100 07/01/17 19:30 92 33 94 Facial 100 07/01/17 19:30 Bi-pap 07/01/17 19:30 95 Bi-pap 100 07/01/17 16:00 79 07/01/17 16:00 96.2 63 20 89/55 99 Venturi Mask 55 07/01/17 13:00 98.0 60 19 90/56 100 Venturi Mask 55 07/01/17 12:00 85 07/01/17 12:00 98.2 61 18 93/51 93 Venturi Mask 55 07/01/17 08:00 60 07/01/17 08:00 98.2 61 19 92/50 100 Non-Rebreather 100 07/01/17 07:37 96 Venturi Mask 14.0 55 07/01/17 07:37 Venturi Mask 14.0 55 07/01/17 07:36 60 18 Venturi Mask 14.0 55 07/01/17 04:00 97.6 60 22 94/54 96 Non-Rebreather 100 07/01/17 04:00 70 07/01/17 00:00 63 07/01/17 00:00 97.8 68 22 117/64 96 Venturi Mask 55 Intake and Output 07/01/17 07/02/17 19:00 07:00 Intake Total 437.416 ml 27.75 ml Output Total 450 ml Balance -12.584 ml 27.75 ml Intake Oral 70 ml IV Total 367.416 ml 27.75 ml Output Urine Total 450 ml 2D Echo: LVEF 60-65%, mild TR with RVSP at 33 mmHg Laboratory Tests Test 07/01/17 02:55 07/01/17 12:02 White Blood Count 11.2 K/UL (4.8-10.8) H Red Blood Count 3.05 M/UL (4.70-6.10) L Hemoglobin 10.8 G/DL (14.2-18.0) L Hematocrit 31.3 % (42.0-52.0) L Mean Corpuscular Volume 103 FL (80-99) H Mean Corpuscular Hemoglobin 35.4 PG (27.0-31.0) H Mean Corpuscular Hemoglobin Concent 34.5 G/DL (32.0-36.0) Red Cell Distribution Width 13.6 % (11.6-14.8) Platelet Count 337 K/UL (150-450) Mean Platelet Volume 5.7 FL (6.5-10.1) L Neutrophils (%) (Auto) 61.4 % (45.0-75.0) Lymphocytes (%) (Auto) 29.2 % (20.0-45.0) Monocytes (%) (Auto) 7.8 % (1.0-10.0) Eosinophils (%) (Auto) 1.0 % (0.0-3.0) Basophils (%) (Auto) 0.6 % (0.0-2.0) Sodium Level 138 MMOL/L (136-145) Potassium Level 3.5 MMOL/L (3.5-5.1) Chloride Level 101 MMOL/L (98-107) Carbon Dioxide Level 31 MMOL/L (21-32) Anion Gap 6 (5-15) Blood Urea Nitrogen 26 mg/dL (7-18) H Creatinine 1.2 MG/DL (0.55-1.30) Estimat Glomerular Filtration Rate > 60 mL/min (>60) Glucose Level 98 MG/DL (74-106) Calcium Level 9.1 MG/DL (8.5-10.1) Triglycerides Level 274 MG/DL (0-200) H Arterial Blood pH 7.435 (7.350-7.450) Arterial Blood Partial Pressure CO2 43.5 mmHg (35.0-45.0) Arterial Blood Partial Pressure O2 48.7 mmHg (75.0-100.0) Arterial Blood HCO3 28.6 mmol/L (22.0-26.0) H Arterial Blood Oxygen Saturation 84.9 % (92.0-98.0) L Arterial Blood Base Excess 3.8 Anthony Test Positive Objective HEENT: Atraumatic and normocephalic. ENT, pupils are equal, round, and reactive to light and accommodation. Pale conjunctiva, on bipap mask. NECK: JVP cannot be assessed. No carotid bruit. Carotid upstrokes 2+ bilaterally. LUNGS: Bilateral rhonchi CVS: Normal S1, S2. no murmurs, gallops or rubs. PMI is at fourth intercostal space in the midclavicular line. ABDOMEN: Soft, nontender, and nondistended. No hepatosplenomegaly. Positive bowel sounds. EXTREMITIES: No evidence of edema, clubbing, or cyanosis. CALLUM BARON Jul 01, 2017 23:59
[2017-07-02] VITALS (24 sets, daily range): BP systolic 84–124; BP diastolic 50–100
[2017-07-02] MEDS ORDERED: Morphine Sulfate 2mg/ml Inj IVP PRN (00:15)
[2017-07-02] MEDS ORDERED: Morphine Sulfate 4mg/ml Inj IVP PRN (00:15)
[2017-07-02] MEDS ORDERED: Albuterol/Ipratropium 3ml neb HHN PRN (03:30)
[2017-07-02] MEDS: Piperacillin/Tazobactam 3.375 GM in D5W 110 ML IVPB SCH ×3 (05:59→22:04)
[2017-07-02 06:03] LABS: BASOPHILS % (AUTO) 0.7 % (0.0-2.0); EOSINOPHILS % (AUTO) 1.3 % (0.0-3.0); HEMATOCRIT 35.4 % (42.0-52.0); HEMOGLOBIN 12.3 G/DL (14.2-18.0); LYMPHOCYTES % (AUTO) 25.2 % (20.0-45.0); MEAN CORPUSCULAR VOLUME 102 FL (80-99); MONOCYTES % (AUTO) 5.6 % (1.0-10.0); NEUTROPHILS % (AUTO) 67.2 % (45.0-75.0); PLATELET COUNT 353 K/UL (150-450); RED BLOOD COUNT 3.47 M/UL (4.70-6.10); RED CELL DISTRIBUTION WIDTH 13.3 % (11.6-14.8); WHITE BLOOD COUNT 12.2 K/UL (4.8-10.8)
[2017-07-02 06:25] LABS: ALANINE AMINOTRANSFERASE 8 U/L (12-78); ALBUMIN 2.6 G/DL (3.4-5.0); ALBUMIN/GLOBULIN RATIO 0.5 (1.0-2.7); ALKALINE PHOSPHATASE 79 U/L (46-116); ANION GAP 7 mmol/L (5-15); ASPARTATE AMINO TRANSFERASE 12 U/L (15-37); BILIRUBIN,TOTAL 0.3 MG/DL (0.2-1.0); BLOOD UREA NITROGEN 21 mg/dL (7-18); CALCIUM 9.6 MG/DL (8.5-10.1); CARBON DIOXIDE 30 MMOL/L (21-32); CHLORIDE 102 MMOL/L (98-107); CREATININE 1.3 MG/DL (0.55-1.30); POTASSIUM 3.3 MMOL/L (3.5-5.1); SODIUM 139 MMOL/L (136-145)
--- NOTE | 2017-07-02 08:11 | Nephrology Progress Note ---
Assessment/Plan Assessment 1. left lung collapse 2. Elevated bicarbonate is in response to severe respiratory acidosis. 3. Hypertension. 4. History of chronic obstructive pulmonary disease. Plan plan to continue iv antibiotic monitoring renal function monitoring electrolyte replace as need avoid any NSAID Subjective Constitutional: Reports: no symptoms HEENT: Reports: no symptoms Genitourinary: Reports: no symptoms Neurologic/Psychiatric: Reports: no symptoms Subjective found to left lung collapse was transferred to icu for possible intubation and bronch Objective Objective Last 24 Hour Vital Signs Date Time Temp Pulse Resp B/P (MAP) Pulse Ox O2 Delivery O2 Flow Rate FiO2 07/02/17 07:00 66 18 100 Facial 50 07/02/17 07:00 64 18 Bi-pap 100 07/02/17 07:00 Bi-pap 07/02/17 07:00 100 Bi-pap 100 07/02/17 07:00 62 17 98/54 98 Bi-pap 100 07/02/17 06:00 66 17 96/52 98 Bi-pap 100 07/02/17 05:00 67 17 109/51 98 Bi-pap 100 07/02/17 04:54 70 27 100 Facial 100 07/02/17 04:00 86 07/02/17 04:00 97.2 73 20 94/52 99 Bi-pap 100 07/02/17 03:30 78 21 100 Facial 100 07/02/17 03:00 70 17 93/51 98 Bi-pap 100 07/02/17 02:00 67 17 84/50 98 Bi-pap 100 07/02/17 01:30 77 18 99 Facial 100 07/02/17 01:00 88 14 94/55 98 Bi-pap 100 07/02/17 00:00 97.7 85 20 92/62 99 Bi-pap 100 07/01/17 23:27 90 30 96 Facial 100 07/01/17 23:00 99 07/01/17 21:00 94 30 95 Bi-pap 07/01/17 20:59 92 33 92 Bi-pap 07/01/17 20:00 96.4 72 20 116/60 99 Venturi Mask 14.0 55 07/01/17 20:00 76 07/01/17 19:30 92 33 Bi-pap 100 07/01/17 19:30 92 33 94 Facial 100 07/01/17 19:30 Bi-pap 07/01/17 19:30 95 Bi-pap 100 07/01/17 16:00 79 07/01/17 16:00 96.2 63 20 89/55 99 Venturi Mask 55 07/01/17 13:00 98.0 60 19 90/56 100 Venturi Mask 55 07/01/17 12:00 85 07/01/17 12:00 98.2 61 18 93/51 93 Venturi Mask 55 Laboratory Tests 07/01/17 12:02: Arterial Blood pH 7.435, Arterial Blood Partial Pressure CO2 43.5, Arterial Blood Partial Pressure O2 48.7*L, Arterial Blood HCO3 28.6H, Arterial Blood Oxygen Saturation 84.9L, Arterial Blood Base Excess 3.8, Anthony Test Positive 07/02/17 05:00: White Blood Count 12.2H, Red Blood Count 3.47L, Hemoglobin 12.3L, Hematocrit 35.4L, Mean Corpuscular Volume 102H, Mean Corpuscular Hemoglobin 35.4H, Mean Corpuscular Hemoglobin Concent 34.6, Red Cell Distribution Width 13.3, Platelet Count 353, Mean Platelet Volume 5.9L, Neutrophils (%) (Auto) 67.2, Lymphocytes ( %) (Auto) 25.2, Monocytes (%) (Auto) 5.6, Eosinophils (%) (Auto) 1.3, Basophils (%) (Auto) 0.7, Sodium Level 139, Potassium Level 3.3L, Chloride Level 102, Carbon Dioxide Level 30, Anion Gap 7, Blood Urea Nitrogen 21H, Creatinine 1.3, Estimat Glomerular Filtration Rate 54.7, Glucose Level 109H, Calcium Level 9.6, Phosphorus Level 4.0, Magnesium Level 2.1, Total Bilirubin 0.3, Aspartate Amino Transf (AST/SGOT) 12L, Alanine Aminotransferase (ALT/SGPT) 8L, Alkaline Phosphatase 79, Total Protein 7.5, Albumin 2.6L, Globulin 4.9, Albumin/Globulin Ratio 0.5L 07/02/17 07:00: Arterial Blood pH 7.408, Arterial Blood Partial Pressure CO2 49.9H, Arterial Blood Partial Pressure O2 367.1H, Arterial Blood HCO3 30.8H, Arterial Blood Oxygen Saturation 99.3H, Arterial Blood Base Excess 5.2, Anthony Test Positive Height (Feet): 5 Height (Inches): 11.00 Weight (Pounds): 116 Objective HEAD AND NECK: No JVP. No LAD. No thyromegaly. Extraocular movements intact. Pupils are reactive to light and accommodation. LUNGS: Clear to auscultation. CARDIAC: Regular rate and rhythm. S1 and S2. No murmur. No rub. ABDOMEN: Soft, nontender, and nondistended. EXTREMITIES: No edema. No clubbing. No cyanosis. NEUROLOGIC: The patient opened up his eyes, not following verbal commands. RANCHO SYKES Jul 02, 2017 08:11
[2017-07-02] MEDS ORDERED: Pantoprazole Inj IV SCH (09:00)
[2017-07-02] MEDS: Heparin 5000 units/ml inj SUBQ SCH ×2 (09:00→20:36)
[2017-07-02] MEDS: Solu-MEDROL 125mg Inj IV SCH (09:00)
[2017-07-02] MEDS: Pantoprazole Inj IV SCH (09:00)
[2017-07-02] MEDS ORDERED: KCl 10% 40mEq/30ml liquid ORAL ONE (09:00)
[2017-07-02] MEDS: Docusate 100mg cap ORAL SCH (09:01)
[2017-07-02] MEDS: Theophylline ER 100mg ORAL SCH ×2 (09:01→20:33)
[2017-07-02] MEDS: carBAMazepine 200mg tab ORAL SCH ×4 (09:01→20:31)
--- NOTE | 2017-07-02 09:33 | Pulmonolgy Critical Care Note ---
Critical Care - Asmt/Plan Problems: (1) Acute encephalopathy (2) Acute respiratory failure (3) Collapse of left lung (4) UTI (urinary tract infection) (5) Schizophrenia (6) History of pacemaker (7) Fever Respiratory: monitor respiratory rate, adjust FIO2, CXR Cardiac: continue to monitor HR/BP Renal: F/U I&O, check electrolytes Infectious Disease: check cultures Gastrointestinal: continue feedings/current rate, other Endocrine: monitor blood sugar, continue sliding scale insulin Hematologic: monitor H/H, transfuse if hgb<8.5 Neurologic: PRN Ativan, keep patient comfortable Affect: PRN ativan Prophylaxis: Protonix, Heparin Notes Reviewed: registered respiratory technician, cardio, 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 with: nurses, consultants, 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 - Objective Last 24 Hour Vital Signs Date Time Temp Pulse Resp B/P (MAP) Pulse Ox O2 Delivery O2 Flow Rate FiO2 07/02/17 09:15 66 18 100 Facial 50 07/02/17 08:00 98.0 62 18 96/56 98 Bi-pap 50 07/02/17 07:00 66 18 100 Facial 50 07/02/17 07:00 64 18 Bi-pap 100 07/02/17 07:00 Bi-pap 07/02/17 07:00 100 Bi-pap 100 07/02/17 07:00 62 17 98/54 98 Bi-pap 100 07/02/17 06:00 66 17 96/52 98 Bi-pap 100 07/02/17 05:00 67 17 109/51 98 Bi-pap 100 07/02/17 04:54 70 27 100 Facial 100 07/02/17 04:00 86 07/02/17 04:00 97.2 73 20 94/52 99 Bi-pap 100 07/02/17 03:30 78 21 100 Facial 100 07/02/17 03:00 70 17 93/51 98 Bi-pap 100 07/02/17 02:00 67 17 84/50 98 Bi-pap 100 07/02/17 01:30 77 18 99 Facial 100 07/02/17 01:00 88 14 94/55 98 Bi-pap 100 07/02/17 00:00 97.7 85 20 92/62 99 Bi-pap 100 07/01/17 23:27 90 30 96 Facial 100 07/01/17 23:00 99 07/01/17 21:00 94 30 95 Bi-pap 07/01/17 20:59 92 33 92 Bi-pap 07/01/17 20:00 96.4 72 20 116/60 99 Venturi Mask 14.0 55 07/01/17 20:00 76 07/01/17 19:30 92 33 Bi-pap 100 07/01/17 19:30 92 33 94 Facial 100 07/01/17 19:30 Bi-pap 07/01/17 19:30 95 Bi-pap 100 07/01/17 16:00 79 07/01/17 16:00 96.2 63 20 89/55 99 Venturi Mask 55 07/01/17 13:00 98.0 60 19 90/56 100 Venturi Mask 55 07/01/17 12:00 85 07/01/17 12:00 98.2 61 18 93/51 93 Venturi Mask 55 Status: awake Condition: critical HEENT: atraumatic, normocephalic Lungs: clear Heart: HR/BP unstable, regular Abdomen: soft, active bowel sounds Extremities: no C/C/E Critical Care - Subjective ROS Limited/Unobtainable: Yes ICU Day: 2 Condition: critical, improving EKG Rhythm: Sinus Rhythm FI02: 50 Vent Support Mode: BiLevel Sputum Amount: None Fluids: KVO CXR: left lung opened up Labs: Laboratory Tests Test 07/01/17 12:02 07/02/17 05:00 07/02/17 07:00 Arterial Blood pH 7.435 (7.350-7.450) 7.408 (7.350-7.450) Arterial Blood Partial Pressure CO2 43.5 mmHg (35.0-45.0) 49.9 mmHg (35.0-45.0) H Arterial Blood Partial Pressure O2 48.7 mmHg (75.0-100.0) 367.1 mmHg (75.0-100.0) H Arterial Blood HCO3 28.6 mmol/L (22.0-26.0) H 30.8 mmol/L (22.0-26.0) H Arterial Blood Oxygen Saturation 84.9 % (92.0-98.0) L 99.3 % (92.0-98.0) H Arterial Blood Base Excess 3.8 5.2 Anthony Test Positive Positive White Blood Count 12.2 K/UL (4.8-10.8) H Red Blood Count 3.47 M/UL (4.70-6.10) L Hemoglobin 12.3 G/DL (14.2-18.0) L Hematocrit 35.4 % (42.0-52.0) L Mean Corpuscular Volume 102 FL (80-99) H Mean Corpuscular Hemoglobin 35.4 PG (27.0-31.0) H Mean Corpuscular Hemoglobin Concent 34.6 G/DL (32.0-36.0) Red Cell Distribution Width 13.3 % (11.6-14.8) Platelet Count 353 K/UL (150-450) Mean Platelet Volume 5.9 FL (6.5-10.1) L Neutrophils (%) (Auto) 67.2 % (45.0-75.0) Lymphocytes (%) (Auto) 25.2 % (20.0-45.0) Monocytes (%) (Auto) 5.6 % (1.0-10.0) Eosinophils (%) (Auto) 1.3 % (0.0-3.0) Basophils (%) (Auto) 0.7 % (0.0-2.0) Sodium Level 139 MMOL/L (136-145) Potassium Level 3.3 MMOL/L (3.5-5.1) L Chloride Level 102 MMOL/L (98-107) Carbon Dioxide Level 30 MMOL/L (21-32) Anion Gap 7 mmol/L (5-15) Blood Urea Nitrogen 21 mg/dL (7-18) H Creatinine 1.3 MG/DL (0.55-1.30) Estimat Glomerular Filtration Rate 54.7 mL/min (>60) Glucose Level 109 MG/DL (74-106) H Calcium Level 9.6 MG/DL (8.5-10.1) Phosphorus Level 4.0 MG/DL (2.5-4.9) Magnesium Level 2.1 MG/DL (1.8-2.4) Total Bilirubin 0.3 MG/DL (0.2-1.0) Aspartate Amino Transf (AST/SGOT) 12 U/L (15-37) L Alanine Aminotransferase (ALT/SGPT) 8 U/L (12-78) L Alkaline Phosphatase 79 U/L (46-116) Total Protein 7.5 G/DL (6.4-8.2) Albumin 2.6 G/DL (3.4-5.0) L Globulin 4.9 g/dL Albumin/Globulin Ratio 0.5 (1.0-2.7) L GWEN MARTE Jul 02, 2017 09:33
[2017-07-02] MEDS ORDERED: Vancomycin 1 GM in D5W 275 ML IVPB SCH (11:00)
--- NOTE | 2017-07-02 13:14 | Diagnostic Imaging Report ---
Indication: Dyspnea Comparison: 07/01/17 A single view chest radiograph was obtained. Findings: Reexpansion of the left upper lobe demonstrated. Considerable residual atelectasis and/or pneumonia noted at the left lung base. Pacemaker again noted. Impression: Interval improvement with reexpansion of the left upper lobe.
--- NOTE | 2017-07-02 13:35 | General Progress Note ---
Assessment/Plan Problem List: (1) Respiratory failure ICD Codes: J96.90 - Respiratory failure, unspecified, unspecified whether with hypoxia or hypercapnia SNOMED: 466812233 (2) Sepsis ICD Codes: A41.9 - Sepsis, unspecified organism SNOMED: 13162382 (3) UTI (urinary tract infection) ICD Codes: N39.0 - Urinary tract infection, site not specified SNOMED: 62745849 (4) Schizophrenia ICD Codes: F20.9 - Schizophrenia, unspecified SNOMED: 21394317 (5) History of pacemaker ICD Codes: Z95.0 - Presence of cardiac pacemaker SNOMED: 572327051 (6) Limited mobility ICD Codes: Z74.09 - Other reduced mobility SNOMED: 6384506 Status: stable, progressing, tolerating diet Assessment/Plan o2 pul tx ot pt diet abx cbc bmp am Subjective Constitutional: Reports: weakness Allergies: Coded Allergies: CHLORPROMAZINE (Verified Allergy, Unknown, 06/23/17) ERYTHROMYCIN BASE (Verified Allergy, Unknown, 06/23/17) Uncoded Allergies: TAPE (Allergy, Unknown, 06/23/17) All Systems: reviewed and negative except above Subjective o2nc sleepy Objective Last 24 Hour Vital Signs Date Time Temp Pulse Resp B/P (MAP) Pulse Ox O2 Delivery O2 Flow Rate FiO2 07/02/17 13:00 69 16 91/52 98 Bi-pap 40 07/02/17 12:00 69 07/02/17 12:00 97.8 72 20 89/56 98 Bi-pap 40 07/02/17 11:15 78 18 100 Facial 40 07/02/17 11:00 70 20 96/63 99 Bi-pap 40 07/02/17 10:00 74 22 100/54 98 Bi-pap 40 07/02/17 09:15 66 18 100 Facial 50 07/02/17 09:00 73 22 124/100 97 Bi-pap 40 07/02/17 08:00 98.0 62 18 96/56 98 Bi-pap 50 07/02/17 08:00 82 07/02/17 07:00 66 18 100 Facial 50 07/02/17 07:00 64 18 Bi-pap 100 07/02/17 07:00 Bi-pap 07/02/17 07:00 100 Bi-pap 100 07/02/17 07:00 62 17 98/54 98 Bi-pap 100 07/02/17 06:00 66 17 96/52 98 Bi-pap 100 07/02/17 05:00 67 17 109/51 98 Bi-pap 100 07/02/17 04:54 70 27 100 Facial 100 07/02/17 04:00 86 07/02/17 04:00 97.2 73 20 94/52 99 Bi-pap 100 07/02/17 03:30 78 21 100 Facial 100 07/02/17 03:00 70 17 93/51 98 Bi-pap 100 07/02/17 02:00 67 17 84/50 98 Bi-pap 100 07/02/17 01:30 77 18 99 Facial 100 07/02/17 01:00 88 14 94/55 98 Bi-pap 100 07/02/17 00:00 97.7 85 20 92/62 99 Bi-pap 100 07/01/17 23:27 90 30 96 Facial 100 07/01/17 23:00 99 07/01/17 21:00 94 30 95 Bi-pap 07/01/17 20:59 92 33 92 Bi-pap 07/01/17 20:00 96.4 72 20 116/60 99 Venturi Mask 14.0 55 07/01/17 20:00 76 07/01/17 19:30 92 33 Bi-pap 100 07/01/17 19:30 92 33 94 Facial 100 07/01/17 19:30 Bi-pap 07/01/17 19:30 95 Bi-pap 100 07/01/17 16:00 79 07/01/17 16:00 96.2 63 20 89/55 99 Venturi Mask 55 Intake and Output 07/02/17 07/03/17 19:00 07:00 Intake Total 296.208 ml Output Total 25 ml Balance 271.208 ml IV Total 266.208 ml Other 30 ml Output Urine Total 25 ml Laboratory Tests 07/02/17 05:00: White Blood Count 12.2H, Red Blood Count 3.47L, Hemoglobin 12.3L, Hematocrit 35.4L, Mean Corpuscular Volume 102H, Mean Corpuscular Hemoglobin 35.4H, Mean Corpuscular Hemoglobin Concent 34.6, Red Cell Distribution Width 13.3, Platelet Count 353, Mean Platelet Volume 5.9L, Neutrophils (%) (Auto) 67.2, Lymphocytes ( %) (Auto) 25.2, Monocytes (%) (Auto) 5.6, Eosinophils (%) (Auto) 1.3, Basophils (%) (Auto) 0.7, Sodium Level 139, Potassium Level 3.3L, Chloride Level 102, Carbon Dioxide Level 30, Anion Gap 7, Blood Urea Nitrogen 21H, Creatinine 1.3, Estimat Glomerular Filtration Rate 54.7, Glucose Level 109H, Calcium Level 9.6, Phosphorus Level 4.0, Magnesium Level 2.1, Total Bilirubin 0.3, Aspartate Amino Transf (AST/SGOT) 12L, Alanine Aminotransferase (ALT/SGPT) 8L, Alkaline Phosphatase 79, Total Protein 7.5, Albumin 2.6L, Globulin 4.9, Albumin/Globulin Ratio 0.5L 07/02/17 07:00: Arterial Blood pH 7.408, Arterial Blood Partial Pressure CO2 49.9H, Arterial Blood Partial Pressure O2 367.1H, Arterial Blood HCO3 30.8H, Arterial Blood Oxygen Saturation 99.3H, Arterial Blood Base Excess 5.2, Anthony Test Positive Height (Feet): 5 Height (Inches): 11.00 Weight (Pounds): 116 General Appearance: lethargic EENT: normal ENT inspection Neck: normal alignment Cardiovascular: normal peripheral pulses, normal rate, regular rhythm Respiratory/Chest: chest wall non-tender, lungs clear, normal breath sounds Abdomen: normal bowel sounds, non tender, soft Extremities: normal inspection Edema: no edema noted Arm (L), no edema noted Arm (R), no edema noted Leg (L), no edema noted Leg (R), no edema noted Pedal (L), no edema noted Pedal (R), no edema noted Generalized Neurologic: motor weakness Skin: normal pigmentation, warm/dry QUINTON HUMPHRIES Jul 02, 2017 13:35
--- NOTE | 2017-07-02 13:35 | General Progress Note ---
Assessment/Plan Problem List: (1) Respiratory failure ICD Codes: J96.90 - Respiratory failure, unspecified, unspecified whether with hypoxia or hypercapnia SNOMED: 541998804 (2) Sepsis ICD Codes: A41.9 - Sepsis, unspecified organism SNOMED: 18243328 (3) UTI (urinary tract infection) ICD Codes: N39.0 - Urinary tract infection, site not specified SNOMED: 60947266 (4) Schizophrenia ICD Codes: F20.9 - Schizophrenia, unspecified SNOMED: 77135274 (5) History of pacemaker ICD Codes: Z95.0 - Presence of cardiac pacemaker SNOMED: 052088173 (6) Limited mobility ICD Codes: Z74.09 - Other reduced mobility SNOMED: 3908548 Status: stable, progressing, tolerating diet Assessment/Plan o2 pul tx ot pt diet abx cbc bmp am Subjective Constitutional: Reports: weakness Allergies: Coded Allergies: CHLORPROMAZINE (Verified Allergy, Unknown, 06/23/17) ERYTHROMYCIN BASE (Verified Allergy, Unknown, 06/23/17) Uncoded Allergies: TAPE (Allergy, Unknown, 06/23/17) All Systems: reviewed and negative except above Subjective o2nc sleepy Objective Last 24 Hour Vital Signs Date Time Temp Pulse Resp B/P (MAP) Pulse Ox O2 Delivery O2 Flow Rate FiO2 07/02/17 13:00 69 16 91/52 98 Bi-pap 40 07/02/17 12:00 69 07/02/17 12:00 97.8 72 20 89/56 98 Bi-pap 40 07/02/17 11:15 78 18 100 Facial 40 07/02/17 11:00 70 20 96/63 99 Bi-pap 40 07/02/17 10:00 74 22 100/54 98 Bi-pap 40 07/02/17 09:15 66 18 100 Facial 50 07/02/17 09:00 73 22 124/100 97 Bi-pap 40 07/02/17 08:00 98.0 62 18 96/56 98 Bi-pap 50 07/02/17 08:00 82 07/02/17 07:00 66 18 100 Facial 50 07/02/17 07:00 64 18 Bi-pap 100 07/02/17 07:00 Bi-pap 07/02/17 07:00 100 Bi-pap 100 07/02/17 07:00 62 17 98/54 98 Bi-pap 100 07/02/17 06:00 66 17 96/52 98 Bi-pap 100 07/02/17 05:00 67 17 109/51 98 Bi-pap 100 07/02/17 04:54 70 27 100 Facial 100 07/02/17 04:00 86 07/02/17 04:00 97.2 73 20 94/52 99 Bi-pap 100 07/02/17 03:30 78 21 100 Facial 100 07/02/17 03:00 70 17 93/51 98 Bi-pap 100 07/02/17 02:00 67 17 84/50 98 Bi-pap 100 07/02/17 01:30 77 18 99 Facial 100 07/02/17 01:00 88 14 94/55 98 Bi-pap 100 07/02/17 00:00 97.7 85 20 92/62 99 Bi-pap 100 07/01/17 23:27 90 30 96 Facial 100 07/01/17 23:00 99 07/01/17 21:00 94 30 95 Bi-pap 07/01/17 20:59 92 33 92 Bi-pap 07/01/17 20:00 96.4 72 20 116/60 99 Venturi Mask 14.0 55 07/01/17 20:00 76 07/01/17 19:30 92 33 Bi-pap 100 07/01/17 19:30 92 33 94 Facial 100 07/01/17 19:30 Bi-pap 07/01/17 19:30 95 Bi-pap 100 07/01/17 16:00 79 07/01/17 16:00 96.2 63 20 89/55 99 Venturi Mask 55 Intake and Output 07/02/17 07/03/17 19:00 07:00 Intake Total 296.208 ml Output Total 25 ml Balance 271.208 ml IV Total 266.208 ml Other 30 ml Output Urine Total 25 ml Laboratory Tests 07/02/17 05:00: White Blood Count 12.2H, Red Blood Count 3.47L, Hemoglobin 12.3L, Hematocrit 35.4L, Mean Corpuscular Volume 102H, Mean Corpuscular Hemoglobin 35.4H, Mean Corpuscular Hemoglobin Concent 34.6, Red Cell Distribution Width 13.3, Platelet Count 353, Mean Platelet Volume 5.9L, Neutrophils (%) (Auto) 67.2, Lymphocytes ( %) (Auto) 25.2, Monocytes (%) (Auto) 5.6, Eosinophils (%) (Auto) 1.3, Basophils (%) (Auto) 0.7, Sodium Level 139, Potassium Level 3.3L, Chloride Level 102, Carbon Dioxide Level 30, Anion Gap 7, Blood Urea Nitrogen 21H, Creatinine 1.3, Estimat Glomerular Filtration Rate 54.7, Glucose Level 109H, Calcium Level 9.6, Phosphorus Level 4.0, Magnesium Level 2.1, Total Bilirubin 0.3, Aspartate Amino Transf (AST/SGOT) 12L, Alanine Aminotransferase (ALT/SGPT) 8L, Alkaline Phosphatase 79, Total Protein 7.5, Albumin 2.6L, Globulin 4.9, Albumin/Globulin Ratio 0.5L 07/02/17 07:00: Arterial Blood pH 7.408, Arterial Blood Partial Pressure CO2 49.9H, Arterial Blood Partial Pressure O2 367.1H, Arterial Blood HCO3 30.8H, Arterial Blood Oxygen Saturation 99.3H, Arterial Blood Base Excess 5.2, Anthony Test Positive Height (Feet): 5 Height (Inches): 11.00 Weight (Pounds): 116 General Appearance: lethargic EENT: normal ENT inspection Neck: normal alignment Cardiovascular: normal peripheral pulses, normal rate, regular rhythm Respiratory/Chest: chest wall non-tender, lungs clear, normal breath sounds Abdomen: normal bowel sounds, non tender, soft Extremities: normal inspection Edema: no edema noted Arm (L), no edema noted Arm (R), no edema noted Leg (L), no edema noted Leg (R), no edema noted Pedal (L), no edema noted Pedal (R), no edema noted Generalized Neurologic: motor weakness Skin: normal pigmentation, warm/dry QUINTON HUMPHRIES Jul 02, 2017 13:35
--- NOTE | 2017-07-02 13:35 | General Progress Note ---
Assessment/Plan Problem List: (1) Respiratory failure ICD Codes: J96.90 - Respiratory failure, unspecified, unspecified whether with hypoxia or hypercapnia SNOMED: 039303076 (2) Sepsis ICD Codes: A41.9 - Sepsis, unspecified organism SNOMED: 62764517 (3) UTI (urinary tract infection) ICD Codes: N39.0 - Urinary tract infection, site not specified SNOMED: 36991086 (4) Schizophrenia ICD Codes: F20.9 - Schizophrenia, unspecified SNOMED: 16359428 (5) History of pacemaker ICD Codes: Z95.0 - Presence of cardiac pacemaker SNOMED: 836647507 (6) Limited mobility ICD Codes: Z74.09 - Other reduced mobility SNOMED: 9843231 Status: stable, progressing, tolerating diet Assessment/Plan o2 pul tx ot pt diet abx cbc bmp am Subjective Constitutional: Reports: weakness Allergies: Coded Allergies: CHLORPROMAZINE (Verified Allergy, Unknown, 06/23/17) ERYTHROMYCIN BASE (Verified Allergy, Unknown, 06/23/17) Uncoded Allergies: TAPE (Allergy, Unknown, 06/23/17) All Systems: reviewed and negative except above Subjective o2nc sleepy Objective Last 24 Hour Vital Signs Date Time Temp Pulse Resp B/P (MAP) Pulse Ox O2 Delivery O2 Flow Rate FiO2 07/02/17 13:00 69 16 91/52 98 Bi-pap 40 07/02/17 12:00 69 07/02/17 12:00 97.8 72 20 89/56 98 Bi-pap 40 07/02/17 11:15 78 18 100 Facial 40 07/02/17 11:00 70 20 96/63 99 Bi-pap 40 07/02/17 10:00 74 22 100/54 98 Bi-pap 40 07/02/17 09:15 66 18 100 Facial 50 07/02/17 09:00 73 22 124/100 97 Bi-pap 40 07/02/17 08:00 98.0 62 18 96/56 98 Bi-pap 50 07/02/17 08:00 82 07/02/17 07:00 66 18 100 Facial 50 07/02/17 07:00 64 18 Bi-pap 100 07/02/17 07:00 Bi-pap 07/02/17 07:00 100 Bi-pap 100 07/02/17 07:00 62 17 98/54 98 Bi-pap 100 07/02/17 06:00 66 17 96/52 98 Bi-pap 100 07/02/17 05:00 67 17 109/51 98 Bi-pap 100 07/02/17 04:54 70 27 100 Facial 100 07/02/17 04:00 86 07/02/17 04:00 97.2 73 20 94/52 99 Bi-pap 100 07/02/17 03:30 78 21 100 Facial 100 07/02/17 03:00 70 17 93/51 98 Bi-pap 100 07/02/17 02:00 67 17 84/50 98 Bi-pap 100 07/02/17 01:30 77 18 99 Facial 100 07/02/17 01:00 88 14 94/55 98 Bi-pap 100 07/02/17 00:00 97.7 85 20 92/62 99 Bi-pap 100 07/01/17 23:27 90 30 96 Facial 100 07/01/17 23:00 99 07/01/17 21:00 94 30 95 Bi-pap 07/01/17 20:59 92 33 92 Bi-pap 07/01/17 20:00 96.4 72 20 116/60 99 Venturi Mask 14.0 55 07/01/17 20:00 76 07/01/17 19:30 92 33 Bi-pap 100 07/01/17 19:30 92 33 94 Facial 100 07/01/17 19:30 Bi-pap 07/01/17 19:30 95 Bi-pap 100 07/01/17 16:00 79 07/01/17 16:00 96.2 63 20 89/55 99 Venturi Mask 55 Intake and Output 07/02/17 07/03/17 19:00 07:00 Intake Total 296.208 ml Output Total 25 ml Balance 271.208 ml IV Total 266.208 ml Other 30 ml Output Urine Total 25 ml Laboratory Tests 07/02/17 05:00: White Blood Count 12.2H, Red Blood Count 3.47L, Hemoglobin 12.3L, Hematocrit 35.4L, Mean Corpuscular Volume 102H, Mean Corpuscular Hemoglobin 35.4H, Mean Corpuscular Hemoglobin Concent 34.6, Red Cell Distribution Width 13.3, Platelet Count 353, Mean Platelet Volume 5.9L, Neutrophils (%) (Auto) 67.2, Lymphocytes ( %) (Auto) 25.2, Monocytes (%) (Auto) 5.6, Eosinophils (%) (Auto) 1.3, Basophils (%) (Auto) 0.7, Sodium Level 139, Potassium Level 3.3L, Chloride Level 102, Carbon Dioxide Level 30, Anion Gap 7, Blood Urea Nitrogen 21H, Creatinine 1.3, Estimat Glomerular Filtration Rate 54.7, Glucose Level 109H, Calcium Level 9.6, Phosphorus Level 4.0, Magnesium Level 2.1, Total Bilirubin 0.3, Aspartate Amino Transf (AST/SGOT) 12L, Alanine Aminotransferase (ALT/SGPT) 8L, Alkaline Phosphatase 79, Total Protein 7.5, Albumin 2.6L, Globulin 4.9, Albumin/Globulin Ratio 0.5L 07/02/17 07:00: Arterial Blood pH 7.408, Arterial Blood Partial Pressure CO2 49.9H, Arterial Blood Partial Pressure O2 367.1H, Arterial Blood HCO3 30.8H, Arterial Blood Oxygen Saturation 99.3H, Arterial Blood Base Excess 5.2, Anthony Test Positive Height (Feet): 5 Height (Inches): 11.00 Weight (Pounds): 116 General Appearance: lethargic EENT: normal ENT inspection Neck: normal alignment Cardiovascular: normal peripheral pulses, normal rate, regular rhythm Respiratory/Chest: chest wall non-tender, lungs clear, normal breath sounds Abdomen: normal bowel sounds, non tender, soft Extremities: normal inspection Edema: no edema noted Arm (L), no edema noted Arm (R), no edema noted Leg (L), no edema noted Leg (R), no edema noted Pedal (L), no edema noted Pedal (R), no edema noted Generalized Neurologic: motor weakness Skin: normal pigmentation, warm/dry QUINTON HUMPHRIES Jul 02, 2017 13:35
--- NOTE | 2017-07-02 17:27 | General Progress Note ---
Assessment/Plan Assessment/Plan Dementia schizophrenia encephalopathy -zyprexa -ativan Subjective Neurologic/Psychiatric: Reports: anxiety Allergies: Coded Allergies: CHLORPROMAZINE (Verified Allergy, Unknown, 06/23/17) ERYTHROMYCIN BASE (Verified Allergy, Unknown, 06/23/17) Uncoded Allergies: TAPE (Allergy, Unknown, 06/23/17) Subjective nad calm and awake no agitation Objective Last 24 Hour Vital Signs Date Time Temp Pulse Resp B/P (MAP) Pulse Ox O2 Delivery O2 Flow Rate FiO2 07/02/17 17:00 72 20 96/57 100 Bi-pap 40 07/02/17 16:00 97.8 65 20 98/59 98 Bi-pap 40 07/02/17 16:00 65 07/02/17 15:05 69 18 Venturi Mask 8.0 97 07/02/17 15:05 Venturi Mask 8.0 40 07/02/17 15:05 76 18 100 Facial 40 07/02/17 15:00 72 20 92/61 100 Bi-pap 40 07/02/17 14:00 72 16 98/59 100 Bi-pap 40 07/02/17 13:20 73 16 100 Facial 40 07/02/17 13:00 69 16 91/52 98 Bi-pap 40 07/02/17 12:00 69 07/02/17 12:00 97.8 72 20 89/56 98 Bi-pap 40 07/02/17 11:15 78 18 100 Facial 40 07/02/17 11:00 70 20 96/63 99 Bi-pap 40 07/02/17 10:00 74 22 100/54 98 Bi-pap 40 07/02/17 09:15 66 18 100 Facial 50 07/02/17 09:00 73 22 124/100 97 Bi-pap 40 07/02/17 08:00 98.0 62 18 96/56 98 Bi-pap 50 07/02/17 08:00 82 07/02/17 07:00 66 18 100 Facial 50 07/02/17 07:00 64 18 Bi-pap 100 07/02/17 07:00 Bi-pap 07/02/17 07:00 100 Bi-pap 100 07/02/17 07:00 62 17 98/54 98 Bi-pap 100 07/02/17 06:00 66 17 96/52 98 Bi-pap 100 07/02/17 05:00 67 17 109/51 98 Bi-pap 100 07/02/17 04:54 70 27 100 Facial 100 07/02/17 04:00 86 07/02/17 04:00 97.2 73 20 94/52 99 Bi-pap 100 07/02/17 03:30 78 21 100 Facial 100 07/02/17 03:00 70 17 93/51 98 Bi-pap 100 07/02/17 02:00 67 17 84/50 98 Bi-pap 100 07/02/17 01:30 77 18 99 Facial 100 07/02/17 01:00 88 14 94/55 98 Bi-pap 100 07/02/17 00:00 97.7 85 20 92/62 99 Bi-pap 100 07/01/17 23:27 90 30 96 Facial 100 07/01/17 23:00 99 07/01/17 21:00 94 30 95 Bi-pap 07/01/17 20:59 92 33 92 Bi-pap 07/01/17 20:00 96.4 72 20 116/60 99 Venturi Mask 14.0 55 07/01/17 20:00 76 07/01/17 19:30 92 33 Bi-pap 100 07/01/17 19:30 92 33 94 Facial 100 07/01/17 19:30 Bi-pap 07/01/17 19:30 95 Bi-pap 100 Intake and Output 07/02/17 07/03/17 19:00 07:00 Intake Total 387.500 ml Output Total 45 ml Balance 342.500 ml IV Total 357.500 ml Other 30 ml Output Urine Total 45 ml Laboratory Tests 07/02/17 05:00: White Blood Count 12.2H, Red Blood Count 3.47L, Hemoglobin 12.3L, Hematocrit 35.4L, Mean Corpuscular Volume 102H, Mean Corpuscular Hemoglobin 35.4H, Mean Corpuscular Hemoglobin Concent 34.6, Red Cell Distribution Width 13.3, Platelet Count 353, Mean Platelet Volume 5.9L, Neutrophils (%) (Auto) 67.2, Lymphocytes ( %) (Auto) 25.2, Monocytes (%) (Auto) 5.6, Eosinophils (%) (Auto) 1.3, Basophils (%) (Auto) 0.7, Sodium Level 139, Potassium Level 3.3L, Chloride Level 102, Carbon Dioxide Level 30, Anion Gap 7, Blood Urea Nitrogen 21H, Creatinine 1.3, Estimat Glomerular Filtration Rate 54.7, Glucose Level 109H, Calcium Level 9.6, Phosphorus Level 4.0, Magnesium Level 2.1, Total Bilirubin 0.3, Aspartate Amino Transf (AST/SGOT) 12L, Alanine Aminotransferase (ALT/SGPT) 8L, Alkaline Phosphatase 79, Total Protein 7.5, Albumin 2.6L, Globulin 4.9, Albumin/Globulin Ratio 0.5L 07/02/17 07:00: Arterial Blood pH 7.408, Arterial Blood Partial Pressure CO2 49.9H, Arterial Blood Partial Pressure O2 367.1H, Arterial Blood HCO3 30.8H, Arterial Blood Oxygen Saturation 99.3H, Arterial Blood Base Excess 5.2, Anthony Test Positive Height (Feet): 5 Height (Inches): 11.00 Weight (Pounds): 116 General Appearance: no apparent distress, alert Neurologic: alert, disoriented, depressed affect Hill Hare M.D. Jul 02, 2017 17:27
--- NOTE | 2017-07-02 17:28 | Geriatric Progress Note ---
Assessment/Plan Assessment/Plan schizophrenia encephalopathy cont zyprexa 20mg qhs Discussed with: patient Subjective Interval Events 06/29/17 Constitutional: Reports: malaise, weakness Geriatric Geriatric Last 24 Hour Vital Signs Date Time Temp Pulse Resp B/P (MAP) Pulse Ox O2 Delivery O2 Flow Rate FiO2 07/02/17 17:00 72 20 96/57 100 Bi-pap 40 07/02/17 16:00 97.8 65 20 98/59 98 Bi-pap 40 07/02/17 16:00 65 07/02/17 15:05 69 18 Venturi Mask 8.0 97 07/02/17 15:05 Venturi Mask 8.0 40 07/02/17 15:05 76 18 100 Facial 40 07/02/17 15:00 72 20 92/61 100 Bi-pap 40 07/02/17 14:00 72 16 98/59 100 Bi-pap 40 07/02/17 13:20 73 16 100 Facial 40 07/02/17 13:00 69 16 91/52 98 Bi-pap 40 07/02/17 12:00 69 07/02/17 12:00 97.8 72 20 89/56 98 Bi-pap 40 07/02/17 11:15 78 18 100 Facial 40 07/02/17 11:00 70 20 96/63 99 Bi-pap 40 07/02/17 10:00 74 22 100/54 98 Bi-pap 40 07/02/17 09:15 66 18 100 Facial 50 07/02/17 09:00 73 22 124/100 97 Bi-pap 40 07/02/17 08:00 98.0 62 18 96/56 98 Bi-pap 50 07/02/17 08:00 82 07/02/17 07:00 66 18 100 Facial 50 07/02/17 07:00 64 18 Bi-pap 100 07/02/17 07:00 Bi-pap 07/02/17 07:00 100 Bi-pap 100 07/02/17 07:00 62 17 98/54 98 Bi-pap 100 07/02/17 06:00 66 17 96/52 98 Bi-pap 100 07/02/17 05:00 67 17 109/51 98 Bi-pap 100 07/02/17 04:54 70 27 100 Facial 100 07/02/17 04:00 86 07/02/17 04:00 97.2 73 20 94/52 99 Bi-pap 100 07/02/17 03:30 78 21 100 Facial 100 07/02/17 03:00 70 17 93/51 98 Bi-pap 100 07/02/17 02:00 67 17 84/50 98 Bi-pap 100 07/02/17 01:30 77 18 99 Facial 100 07/02/17 01:00 88 14 94/55 98 Bi-pap 100 07/02/17 00:00 97.7 85 20 92/62 99 Bi-pap 100 07/01/17 23:27 90 30 96 Facial 100 07/01/17 23:00 99 07/01/17 21:00 94 30 95 Bi-pap 07/01/17 20:59 92 33 92 Bi-pap 07/01/17 20:00 96.4 72 20 116/60 99 Venturi Mask 14.0 55 07/01/17 20:00 76 07/01/17 19:30 92 33 Bi-pap 100 07/01/17 19:30 92 33 94 Facial 100 07/01/17 19:30 Bi-pap 07/01/17 19:30 95 Bi-pap 100 Intake and Output 07/02/17 07/03/17 19:00 07:00 Intake Total 456.500 ml Output Total 45 ml Balance 411.500 ml IV Total 426.500 ml Other 30 ml Output Urine Total 45 ml Laboratory Tests Test 07/02/17 05:00 07/02/17 07:00 White Blood Count 12.2 K/UL (4.8-10.8) H Red Blood Count 3.47 M/UL (4.70-6.10) L Hemoglobin 12.3 G/DL (14.2-18.0) L Hematocrit 35.4 % (42.0-52.0) L Mean Corpuscular Volume 102 FL (80-99) H Mean Corpuscular Hemoglobin 35.4 PG (27.0-31.0) H Mean Corpuscular Hemoglobin Concent 34.6 G/DL (32.0-36.0) Red Cell Distribution Width 13.3 % (11.6-14.8) Platelet Count 353 K/UL (150-450) Mean Platelet Volume 5.9 FL (6.5-10.1) L Neutrophils (%) (Auto) 67.2 % (45.0-75.0) Lymphocytes (%) (Auto) 25.2 % (20.0-45.0) Monocytes (%) (Auto) 5.6 % (1.0-10.0) Eosinophils (%) (Auto) 1.3 % (0.0-3.0) Basophils (%) (Auto) 0.7 % (0.0-2.0) Sodium Level 139 MMOL/L (136-145) Potassium Level 3.3 MMOL/L (3.5-5.1) L Chloride Level 102 MMOL/L (98-107) Carbon Dioxide Level 30 MMOL/L (21-32) Anion Gap 7 mmol/L (5-15) Blood Urea Nitrogen 21 mg/dL (7-18) H Creatinine 1.3 MG/DL (0.55-1.30) Estimat Glomerular Filtration Rate 54.7 mL/min (>60) Glucose Level 109 MG/DL (74-106) H Calcium Level 9.6 MG/DL (8.5-10.1) Phosphorus Level 4.0 MG/DL (2.5-4.9) Magnesium Level 2.1 MG/DL (1.8-2.4) Total Bilirubin 0.3 MG/DL (0.2-1.0) Aspartate Amino Transf (AST/SGOT) 12 U/L (15-37) L Alanine Aminotransferase (ALT/SGPT) 8 U/L (12-78) L Alkaline Phosphatase 79 U/L (46-116) Total Protein 7.5 G/DL (6.4-8.2) Albumin 2.6 G/DL (3.4-5.0) L Globulin 4.9 g/dL Albumin/Globulin Ratio 0.5 (1.0-2.7) L Arterial Blood pH 7.408 (7.350-7.450) Arterial Blood Partial Pressure CO2 49.9 mmHg (35.0-45.0) H Arterial Blood Partial Pressure O2 367.1 mmHg (75.0-100.0) H Arterial Blood HCO3 30.8 mmol/L (22.0-26.0) H Arterial Blood Oxygen Saturation 99.3 % (92.0-98.0) H Arterial Blood Base Excess 5.2 Anthony Test Positive Current Medications Medications (Trade) Dose Ordered Sig/Karen Route PRN Reason Start Time Stop Time Status Last Admin Dose Admin Albuterol/ Ipratropium (DuoNeb 0.5-3(2.5)mg/3ml) 3 ml Q4H PRN HHN Shortness of Breath 07/02/17 03:30 07/06/17 19:29 Carbamazepine (TEGretol) 200 mg FOUR TIMES A DAY ORAL 07/02/17 09:00 07/23/17 12:59 07/02/17 12:10 Dextrose (Dextrose 50%) STAT PRN IV Hypoglycemia 07/02/17 12:00 07/25/17 11:59 Docusate Sodium (Colace) 100 mg DAILY ORAL 07/02/17 09:00 07/29/17 08:59 07/02/17 09:01 Heparin Sodium (Porcine) (Heparin 5000 units/ml) 5,000 units EVERY 12 HOURS SUBQ 07/02/17 09:00 07/23/17 20:59 Levetiracetam (Keppra) 500 mg Q12HR ORAL 07/02/17 09:00 07/23/17 20:59 07/02/17 09:01 Lorazepam (Ativan 2mg/ml 1ml) 2 mg Q4H PRN IV For Anxiety 07/02/17 00:15 07/08/17 12:14 Methylprednisolone Sodium Succinate (Solu-MEDROL) 60 mg DAILY IV 07/02/17 09:00 07/23/17 17:59 07/02/17 09:00 Morphine Sulfate (Morphine Sulfate) 2 mg Q4H PRN IVP Moderate Pain (Pain Scale 4-6) 07/02/17 00:15 07/08/17 12:14 Morphine Sulfate (Morphine Sulfate) 4 mg Q4H PRN IVP Severe Pain (Pain Scale 7-10) 07/02/17 00:15 07/08/17 12:14 Nitroglycerin (Ntg) 0.4 mg Q5M X 3 DOSES PRN SL Prn Chest Pain 07/01/17 23:45 07/23/17 13:29 Olanzapine (ZyPREXA) 20 mg BEDTIME ORAL 07/02/17 21:00 07/24/17 08:59 Ondansetron HCl (Zofran) 4 mg Q6H PRN IVP Nausea & Vomiting 07/02/17 00:00 07/23/17 11:59 Pantoprazole (Protonix) 40 mg DAILY IV 07/02/17 09:00 08/01/17 08:59 07/02/17 09:00 Piperacillin Sod/ Tazobactam Sod 3.375 gm/Dextrose 110 ml @ 27.5 mls/hr EVERY 8 HOURS IVPB 07/02/17 06:00 07/03/17 21:59 07/02/17 14:28 Piperacillin Sod/ Tazobactam Sod 3.375 gm/Sodium Chloride 110 ml @ 27.5 mls/hr EVERY 8 HOURS IVPB 07/03/17 22:00 07/07/17 23:59 Temazepam (Restoril) 15 mg HSPRN PRN ORAL Insomnia 07/02/17 20:00 07/03/17 19:59 Theophylline (Dane-Dur) 100 mg EVERY 12 HOURS ORAL 07/02/17 09:00 07/23/17 20:59 07/02/17 09:01 Vancomycin HCl (Vanco rx to dose) 1 ea DAILY PRN MISC Per rx protocol 07/02/17 09:00 07/28/17 12:59 Vancomycin HCl 1 gm/Dextrose 275 ml @ 183.708 mls/hr Q24H IVPB 07/02/17 11:00 07/07/17 23:59 07/02/17 12:09 Height (Feet): 5 Height (Inches): 11.00 Weight (Pounds): 116 General Appearance: no apparent distress, alert Hill Hare M.D. Jul 02, 2017 17:28
[2017-07-03] VITALS (24 sets, daily range): BP systolic 84–150; BP diastolic 44–64
[2017-07-03 05:20] LABS: BASOPHILS % (AUTO) 0.3 % (0.0-2.0); EOSINOPHILS % (AUTO) 2.3 % (0.0-3.0); HEMATOCRIT 31.4 % (42.0-52.0); HEMOGLOBIN 11.1 G/DL (14.2-18.0); LYMPHOCYTES % (AUTO) 29.1 % (20.0-45.0); MEAN CORPUSCULAR VOLUME 103 FL (80-99); NEUTROPHILS % (AUTO) 62.3 % (45.0-75.0); PLATELET COUNT 336 K/UL (150-450); RED BLOOD COUNT 3.06 M/UL (4.70-6.10); RED CELL DISTRIBUTION WIDTH 13.4 % (11.6-14.8); WHITE BLOOD COUNT 10.2 K/UL (4.8-10.8)
[2017-07-03] MEDS: Piperacillin/Tazobactam 3.375 GM in D5W 110 ML IVPB SCH ×2 (05:57→15:37)
[2017-07-03 06:34] LABS: ALANINE AMINOTRANSFERASE 9 U/L (12-78); ALBUMIN 2.5 G/DL (3.4-5.0); ALBUMIN/GLOBULIN RATIO 0.5 (1.0-2.7); ALKALINE PHOSPHATASE 73 U/L (46-116); ANION GAP 9 mmol/L (5-15); ASPARTATE AMINO TRANSFERASE 12 U/L (15-37); BILIRUBIN,TOTAL 0.3 MG/DL (0.2-1.0); BLOOD UREA NITROGEN 17 mg/dL (7-18); CALCIUM 9.3 MG/DL (8.5-10.1); CARBON DIOXIDE 28 MMOL/L (21-32); CHLORIDE 103 MMOL/L (98-107); CREATININE 1.2 MG/DL (0.55-1.30); POTASSIUM 3.9 MMOL/L (3.5-5.1); SODIUM 139 MMOL/L (136-145)
[2017-07-03] MEDS: Docusate 100mg cap ORAL SCH (08:39)
[2017-07-03] MEDS: Pantoprazole Inj IV SCH (08:40)
[2017-07-03] MEDS: Theophylline ER 100mg ORAL SCH ×2 (08:40→20:39)
[2017-07-03] MEDS: Solu-MEDROL 125mg Inj IV SCH (08:40)
[2017-07-03] MEDS: carBAMazepine 200mg tab ORAL SCH ×4 (08:40→20:39)
[2017-07-03] MEDS: Heparin 5000 units/ml inj SUBQ SCH ×2 (08:41→20:49)
--- NOTE | 2017-07-03 10:44 | Pulmonolgy Critical Care Note ---
Critical Care - Asmt/Plan Problems: (1) Acute encephalopathy (2) Acute respiratory failure (3) Collapse of left lung (4) UTI (urinary tract infection) (5) Schizophrenia (6) History of pacemaker (7) Fever Respiratory: monitor respiratory rate, adjust FIO2, CXR Cardiac: continue to monitor HR/BP Renal: F/U I&O, keep IV fluid, check electrolytes Infectious Disease: check cultures Gastrointestinal: continue feedings/current rate, hold feedings Endocrine: monitor blood sugar, check TSH, continue sliding scale insulin Hematologic: monitor H/H, transfuse if hgb<8.5 Neurologic: PRN Ativan, PRN Morphine, keep patient comfortable 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, 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 Discussed with: nurses, consultants, transplant case managercounseling services manager - Objective Last 24 Hour Vital Signs Date Time Temp Pulse Resp B/P (MAP) Pulse Ox O2 Delivery O2 Flow Rate FiO2 07/03/17 10:00 60 18 89/51 99 Nasal Cannula 3.0 07/03/17 09:00 60 22 92/54 100 Venturi Mask 45 07/03/17 08:17 60 07/03/17 08:00 61 07/03/17 08:00 98.1 60 22 97/49 98 Venturi Mask 45 07/03/17 07:00 62 21 106/63 96 Venturi Mask 45 07/03/17 06:00 62 21 94/56 97 Venturi Mask 45 07/03/17 05:00 60 21 98/56 100 Venturi Mask 45 07/03/17 04:00 98.5 60 20 101/55 98 Venturi Mask 45 07/03/17 04:00 60 07/03/17 03:00 60 21 84/49 98 Venturi Mask 45 07/03/17 02:00 68 20 89/49 97 Venturi Mask 45 07/03/17 01:00 60 21 90/50 98 Venturi Mask 45 07/03/17 00:00 74 07/03/17 00:00 98.5 60 20 98/53 99 Venturi Mask 45 07/02/17 23:00 70 21 100/55 99 Venturi Mask 45 07/02/17 22:00 76 25 99/52 98 Venturi Mask 45 07/02/17 21:00 72 20 106/56 99 Venturi Mask 45 07/02/17 20:00 98.5 67 20 106/61 98 Venturi Mask 45 07/02/17 20:00 68 07/02/17 19:00 60 20 Venturi Mask 10.0 45 07/02/17 19:00 67 20 100/56 96 Bi-pap 40 07/02/17 19:00 Venturi Mask 10.0 45 07/02/17 19:00 99 Venturi Mask 10.0 45 07/02/17 18:00 66 22 94/56 100 Bi-pap 40 07/02/17 17:00 72 20 96/57 100 Bi-pap 40 07/02/17 16:00 97.8 65 20 98/59 98 Bi-pap 40 07/02/17 16:00 65 07/02/17 15:05 69 18 Venturi Mask 8.0 97 07/02/17 15:05 Venturi Mask 8.0 40 07/02/17 15:05 76 18 100 Facial 40 07/02/17 15:00 72 20 92/61 100 Bi-pap 40 07/02/17 14:00 72 16 98/59 100 Bi-pap 40 07/02/17 13:20 73 16 100 Facial 40 07/02/17 13:00 69 16 91/52 98 Bi-pap 40 07/02/17 12:00 69 07/02/17 12:00 97.8 72 20 89/56 98 Bi-pap 40 07/02/17 11:15 78 18 100 Facial 40 07/02/17 11:00 70 20 96/63 99 Bi-pap 40 Status: awake Condition: critical HEENT: atraumatic Neck: full ROM Heart: HR/BP stable, HR/BP unstable Abdomen: soft, active bowel sounds, feeding tube Extremities: no C/C/E Critical Care - Subjective ROS Limited/Unobtainable: No ICU Day: 4 Interval Events: left lung collapsed again. I called Ashlee Pelaez [phone] to obtain a consent. I left a message with our contact information. Condition: critical FI02: 45 Vent Support Mode: BiLevel Sputum Amount: None Fluids: d5 1/2 NS 75 cc/hour I&O: Intake and Output 07/03/17 07/04/17 19:00 07:00 Intake Total 82.5 ml Output Total 10 ml Balance 72.5 ml IV Total 82.5 ml Output Urine Total 10 ml GWEN MARTE Jul 03, 2017 10:44
--- NOTE | 2017-07-03 10:44 | Pulmonolgy Critical Care Note ---
Critical Care - Asmt/Plan Problems: (1) Acute encephalopathy (2) Acute respiratory failure (3) Collapse of left lung (4) UTI (urinary tract infection) (5) Schizophrenia (6) History of pacemaker (7) Fever Respiratory: monitor respiratory rate, adjust FIO2, CXR Cardiac: continue to monitor HR/BP Renal: F/U I&O, keep IV fluid, check electrolytes Infectious Disease: check cultures Gastrointestinal: continue feedings/current rate, hold feedings Endocrine: monitor blood sugar, check TSH, continue sliding scale insulin Hematologic: monitor H/H, transfuse if hgb<8.5 Neurologic: PRN Ativan, PRN Morphine, keep patient comfortable Notes Reviewed: outpatient surgery rn, cardio Discussed with: nurses, consultants, case finishing machine adjustercommunity outreach manager - Objective Last 24 Hour Vital Signs Date Time Temp Pulse Resp B/P (MAP) Pulse Ox O2 Delivery O2 Flow Rate FiO2 07/03/17 10:00 60 18 89/51 99 Nasal Cannula 3.0 07/03/17 09:00 60 22 92/54 100 Venturi Mask 45 07/03/17 08:17 60 07/03/17 08:00 61 07/03/17 08:00 98.1 60 22 97/49 98 Venturi Mask 45 07/03/17 07:00 62 21 106/63 96 Venturi Mask 45 07/03/17 06:00 62 21 94/56 97 Venturi Mask 45 07/03/17 05:00 60 21 98/56 100 Venturi Mask 45 07/03/17 04:00 98.5 60 20 101/55 98 Venturi Mask 45 07/03/17 04:00 60 07/03/17 03:00 60 21 84/49 98 Venturi Mask 45 07/03/17 02:00 68 20 89/49 97 Venturi Mask 45 07/03/17 01:00 60 21 90/50 98 Venturi Mask 45 07/03/17 00:00 74 07/03/17 00:00 98.5 60 20 98/53 99 Venturi Mask 45 07/02/17 23:00 70 21 100/55 99 Venturi Mask 45 07/02/17 22:00 76 25 99/52 98 Venturi Mask 45 07/02/17 21:00 72 20 106/56 99 Venturi Mask 45 07/02/17 20:00 98.5 67 20 106/61 98 Venturi Mask 45 07/02/17 20:00 68 07/02/17 19:00 60 20 Venturi Mask 10.0 45 07/02/17 19:00 67 20 100/56 96 Bi-pap 40 07/02/17 19:00 Venturi Mask 10.0 45 07/02/17 19:00 99 Venturi Mask 10.0 45 07/02/17 18:00 66 22 94/56 100 Bi-pap 40 07/02/17 17:00 72 20 96/57 100 Bi-pap 40 07/02/17 16:00 97.8 65 20 98/59 98 Bi-pap 40 07/02/17 16:00 65 07/02/17 15:05 69 18 Venturi Mask 8.0 97 07/02/17 15:05 Venturi Mask 8.0 40 07/02/17 15:05 76 18 100 Facial 40 07/02/17 15:00 72 20 92/61 100 Bi-pap 40 07/02/17 14:00 72 16 98/59 100 Bi-pap 40 07/02/17 13:20 73 16 100 Facial 40 07/02/17 13:00 69 16 91/52 98 Bi-pap 40 07/02/17 12:00 69 07/02/17 12:00 97.8 72 20 89/56 98 Bi-pap 40 07/02/17 11:15 78 18 100 Facial 40 07/02/17 11:00 70 20 96/63 99 Bi-pap 40 Status: awake Condition: critical HEENT: atraumatic Neck: full ROM Heart: HR/BP stable, HR/BP unstable Abdomen: soft, active bowel sounds, feeding tube Extremities: no C/C/E Critical Care - Subjective ROS Limited/Unobtainable: No ICU Day: 4 Interval Events: left lung collapsed again. I called Ashlee Pelaez [phone] to obtain a consent. I left a message with our contact information. Condition: critical FI02: 45 Vent Support Mode: BiLevel Sputum Amount: None Fluids: d5 1/2 NS 75 cc/hour I&O: Intake and Output 07/03/17 07/04/17 19:00 07:00 Intake Total 82.5 ml Output Total 10 ml Balance 72.5 ml IV Total 82.5 ml Output Urine Total 10 ml GWEN MARTE Jul 03, 2017 10:44
--- NOTE | 2017-07-03 10:44 | Pulmonolgy Critical Care Note ---
Critical Care - Asmt/Plan Problems: (1) Acute encephalopathy (2) Acute respiratory failure (3) Collapse of left lung (4) UTI (urinary tract infection) (5) Schizophrenia (6) History of pacemaker (7) Fever Respiratory: monitor respiratory rate, adjust FIO2, CXR Cardiac: continue to monitor HR/BP Renal: F/U I&O, keep IV fluid, check electrolytes Infectious Disease: check cultures Gastrointestinal: continue feedings/current rate, hold feedings Endocrine: monitor blood sugar, check TSH, continue sliding scale insulin Hematologic: monitor H/H, transfuse if hgb<8.5 Neurologic: PRN Ativan, PRN Morphine, keep patient comfortable 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, 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 Discussed with: nurses, consultants, counseling case managerrestaurant assistant manager - Objective Last 24 Hour Vital Signs Date Time Temp Pulse Resp B/P (MAP) Pulse Ox O2 Delivery O2 Flow Rate FiO2 07/03/17 10:00 60 18 89/51 99 Nasal Cannula 3.0 07/03/17 09:00 60 22 92/54 100 Venturi Mask 45 07/03/17 08:17 60 07/03/17 08:00 61 07/03/17 08:00 98.1 60 22 97/49 98 Venturi Mask 45 07/03/17 07:00 62 21 106/63 96 Venturi Mask 45 07/03/17 06:00 62 21 94/56 97 Venturi Mask 45 07/03/17 05:00 60 21 98/56 100 Venturi Mask 45 07/03/17 04:00 98.5 60 20 101/55 98 Venturi Mask 45 07/03/17 04:00 60 07/03/17 03:00 60 21 84/49 98 Venturi Mask 45 07/03/17 02:00 68 20 89/49 97 Venturi Mask 45 07/03/17 01:00 60 21 90/50 98 Venturi Mask 45 07/03/17 00:00 74 07/03/17 00:00 98.5 60 20 98/53 99 Venturi Mask 45 07/02/17 23:00 70 21 100/55 99 Venturi Mask 45 07/02/17 22:00 76 25 99/52 98 Venturi Mask 45 07/02/17 21:00 72 20 106/56 99 Venturi Mask 45 07/02/17 20:00 98.5 67 20 106/61 98 Venturi Mask 45 07/02/17 20:00 68 07/02/17 19:00 60 20 Venturi Mask 10.0 45 07/02/17 19:00 67 20 100/56 96 Bi-pap 40 07/02/17 19:00 Venturi Mask 10.0 45 07/02/17 19:00 99 Venturi Mask 10.0 45 07/02/17 18:00 66 22 94/56 100 Bi-pap 40 07/02/17 17:00 72 20 96/57 100 Bi-pap 40 07/02/17 16:00 97.8 65 20 98/59 98 Bi-pap 40 07/02/17 16:00 65 07/02/17 15:05 69 18 Venturi Mask 8.0 97 07/02/17 15:05 Venturi Mask 8.0 40 07/02/17 15:05 76 18 100 Facial 40 07/02/17 15:00 72 20 92/61 100 Bi-pap 40 07/02/17 14:00 72 16 98/59 100 Bi-pap 40 07/02/17 13:20 73 16 100 Facial 40 07/02/17 13:00 69 16 91/52 98 Bi-pap 40 07/02/17 12:00 69 07/02/17 12:00 97.8 72 20 89/56 98 Bi-pap 40 07/02/17 11:15 78 18 100 Facial 40 07/02/17 11:00 70 20 96/63 99 Bi-pap 40 Status: awake Condition: critical HEENT: atraumatic Neck: full ROM Heart: HR/BP stable, HR/BP unstable Abdomen: soft, active bowel sounds, feeding tube Extremities: no C/C/E Critical Care - Subjective ROS Limited/Unobtainable: No ICU Day: 4 Interval Events: left lung collapsed again. I called Ashlee Pelaez [phone] to obtain a consent. I left a message with our contact information. Condition: critical FI02: 45 Vent Support Mode: BiLevel Sputum Amount: None Fluids: d5 1/2 NS 75 cc/hour I&O: Intake and Output 07/03/17 07/04/17 19:00 07:00 Intake Total 82.5 ml Output Total 10 ml Balance 72.5 ml IV Total 82.5 ml Output Urine Total 10 ml GWEN MARTE Jul 03, 2017 10:44
--- NOTE | 2017-07-03 12:01 | Diagnostic Imaging Report ---
Indication: DYSPNEA Technique: One view of the chest Comparison: 07/02/2017 Findings: There is increased opacification left lung, is decreased aeration. Leftward mediastinal shift indicates that this is due to atelectasis. The right lung and pleural space remain clear. Left chest pacemaker again demonstrated Impression: Increasing left lung atelectasis, over one day
[2017-07-03] MEDS: D5 1/2NS 1,000 ML IV SCH (13:07)
[2017-07-03] MEDS ORDERED: Propofol 200mg/20ml IV ONE (13:30)
--- NOTE | 2017-07-03 13:51 | Nephrology Progress Note ---
Assessment/Plan Assessment 1. left lung collapse 2. Elevated bicarbonate is in response to severe respiratory acidosis. 3. Hypertension. 4. History of chronic obstructive pulmonary disease. Plan plan to continue iv antibiotic monitoring renal function monitoring electrolyte replace as need avoid any NSAID Subjective Constitutional: Reports: no symptoms HEENT: Reports: no symptoms Genitourinary: Reports: no symptoms Neurologic/Psychiatric: Reports: no symptoms Subjective found to left lung collapse continue to be BIPAP going to have bronchoscopy Objective Objective Last 24 Hour Vital Signs Date Time Temp Pulse Resp B/P (MAP) Pulse Ox O2 Delivery O2 Flow Rate FiO2 07/03/17 13:00 65 20 92/58 96 Bi-pap 40 07/03/17 12:32 62 17 93 Facial 40 07/03/17 12:00 98.5 62 18 93/50 97 Bi-pap 40 07/03/17 11:00 60 18 86/44 96 Nasal Cannula 3.0 07/03/17 10:00 60 18 89/51 99 Nasal Cannula 3.0 07/03/17 09:00 60 22 92/54 100 Venturi Mask 45 07/03/17 08:17 60 07/03/17 08:00 61 07/03/17 08:00 98.1 60 22 97/49 98 Venturi Mask 45 07/03/17 07:00 62 21 106/63 96 Venturi Mask 45 07/03/17 06:30 99 Venturi Mask 10.0 45 07/03/17 06:30 60 18 Venturi Mask 10.0 45 07/03/17 06:30 Venturi Mask 10.0 45 07/03/17 06:00 62 21 94/56 97 Venturi Mask 45 07/03/17 05:00 60 21 98/56 100 Venturi Mask 45 07/03/17 04:00 98.5 60 20 101/55 98 Venturi Mask 45 07/03/17 04:00 60 07/03/17 03:00 60 21 84/49 98 Venturi Mask 45 07/03/17 02:00 68 20 89/49 97 Venturi Mask 45 07/03/17 01:00 60 21 90/50 98 Venturi Mask 45 07/03/17 00:00 74 07/03/17 00:00 98.5 60 20 98/53 99 Venturi Mask 45 07/02/17 23:00 70 21 100/55 99 Venturi Mask 45 07/02/17 22:00 76 25 99/52 98 Venturi Mask 45 07/02/17 21:00 72 20 106/56 99 Venturi Mask 45 07/02/17 20:00 98.5 67 20 106/61 98 Venturi Mask 45 07/02/17 20:00 68 07/02/17 19:00 60 20 Venturi Mask 10.0 45 07/02/17 19:00 67 20 100/56 96 Bi-pap 40 07/02/17 19:00 Venturi Mask 10.0 45 07/02/17 19:00 99 Venturi Mask 10.0 45 07/02/17 18:00 66 22 94/56 100 Bi-pap 40 07/02/17 17:00 72 20 96/57 100 Bi-pap 40 07/02/17 16:00 97.8 65 20 98/59 98 Bi-pap 40 07/02/17 16:00 65 07/02/17 15:05 69 18 Venturi Mask 8.0 97 07/02/17 15:05 Venturi Mask 8.0 40 07/02/17 15:05 76 18 100 Facial 40 07/02/17 15:00 72 20 92/61 100 Bi-pap 40 07/02/17 14:00 72 16 98/59 100 Bi-pap 40 Intake and Output 07/03/17 07/04/17 19:00 07:00 Intake Total 82.5 ml Output Total 100 ml Balance -17.5 ml IV Total 82.5 ml Output Urine Total 100 ml Laboratory Tests 07/03/17 03:25: White Blood Count 10.2, Red Blood Count 3.06L, Hemoglobin 11.1L, Hematocrit 31.4L, Mean Corpuscular Volume 103H, Mean Corpuscular Hemoglobin 36.2H, Mean Corpuscular Hemoglobin Concent 35.3, Red Cell Distribution Width 13.4, Platelet Count 336, Mean Platelet Volume 5.7L, Neutrophils (%) (Auto) 62.3, Lymphocytes ( %) (Auto) 29.1, Monocytes (%) (Auto) 6.0, Eosinophils (%) (Auto) 2.3, Basophils (%) (Auto) 0.3, Sodium Level 139, Potassium Level 3.9, Chloride Level 103, Carbon Dioxide Level 28, Anion Gap 9, Blood Urea Nitrogen 17, Creatinine 1.2, Estimat Glomerular Filtration Rate > 60, Glucose Level 88, Calcium Level 9.3, Total Bilirubin 0.3, Aspartate Amino Transf (AST/SGOT) 12L, Alanine Aminotransferase (ALT/SGPT) 9L, Alkaline Phosphatase 73, Pro-B-Type Natriuretic Peptide 195H, Total Protein 7.2, Albumin 2.5L, Globulin 4.7, Albumin/Globulin Ratio 0.5L 07/03/17 09:50: Vancomycin Level Trough 22.5H 07/03/17 11:00: Arterial Blood pH 7.384, Arterial Blood Partial Pressure CO2 50.1H, Arterial Blood Partial Pressure O2 51.7L, Arterial Blood HCO3 29.2H, Arterial Blood Oxygen Saturation 86.7L, Arterial Blood Base Excess 3.4, Anthony Test Positive Height (Feet): 5 Height (Inches): 11.00 Weight (Pounds): 114 Objective HEAD AND NECK: No JVP. No LAD. No thyromegaly. Extraocular movements intact. Pupils are reactive to light and accommodation. LUNGS: Clear to auscultation. CARDIAC: Regular rate and rhythm. S1 and S2. No murmur. No rub. ABDOMEN: Soft, nontender, and nondistended. EXTREMITIES: No edema. No clubbing. No cyanosis. NEUROLOGIC: The patient opened up his eyes, not following verbal commands. RANCHO SYKES Jul 03, 2017 13:51
[2017-07-03] MEDS ORDERED: DOPamine 400mg/250ml 250 ML IV ONE (14:18)
--- NOTE | 2017-07-03 14:53 | General Progress Note ---
Progress Note Progress Note Procedure note: endotracheal intubation Indication: Left lung collapse, respiratory failure An ET tube of size 8 was introduced in vocal cords, bilateral breath sounds were present. Cxr ordered. GWEN MARTE Jul 03, 2017 14:53
--- NOTE | 2017-07-03 14:56 | General Progress Note ---
Progress Note Progress Note Procedure note Bronchoscopy indication :Left lung collapse. An Olympus bronchoscope was introduced through ET tube. foamy secretions were suctioned pt tolerated the procedure well. GWEN MARTE Jul 03, 2017 14:56
[2017-07-03] MEDS ORDERED: LORazepam Inj 2mg/ml 1ml IV PRN (15:00)
[2017-07-03] MEDS ORDERED: Morphine Sulfate 4mg/ml Inj IVP PRN (15:00)
--- NOTE | 2017-07-03 15:00 | General Progress Note ---
Assessment/Plan Problem List: (1) Respiratory failure ICD Codes: J96.90 - Respiratory failure, unspecified, unspecified whether with hypoxia or hypercapnia SNOMED: 967436367 (2) Sepsis ICD Codes: A41.9 - Sepsis, unspecified organism SNOMED: 07912286 (3) UTI (urinary tract infection) ICD Codes: N39.0 - Urinary tract infection, site not specified SNOMED: 63311252 (4) Schizophrenia ICD Codes: F20.9 - Schizophrenia, unspecified SNOMED: 20447932 (5) History of pacemaker ICD Codes: Z95.0 - Presence of cardiac pacemaker SNOMED: 485514174 (6) Limited mobility ICD Codes: Z74.09 - Other reduced mobility SNOMED: 1377798 Status: unchanged Assessment/Plan o2 pul tx ot pt diet abx cbc bmp am Subjective Constitutional: Reports: weakness Allergies: Coded Allergies: CHLORPROMAZINE (Verified Allergy, Unknown, 06/23/17) ERYTHROMYCIN BASE (Verified Allergy, Unknown, 06/23/17) Uncoded Allergies: TAPE (Allergy, Unknown, 06/23/17) All Systems: reviewed and negative except above Subjective pulm mask in icu Objective Last 24 Hour Vital Signs Date Time Temp Pulse Resp B/P (MAP) Pulse Ox O2 Delivery O2 Flow Rate FiO2 07/03/17 14:00 64 20 91/58 96 Bi-pap 40 07/03/17 13:00 65 20 92/58 96 Bi-pap 40 07/03/17 12:32 62 17 93 Facial 40 07/03/17 12:00 98.5 62 18 93/50 97 Bi-pap 40 07/03/17 11:00 60 18 86/44 96 Nasal Cannula 3.0 07/03/17 10:00 60 18 89/51 99 Nasal Cannula 3.0 07/03/17 09:00 60 22 92/54 100 Venturi Mask 45 07/03/17 08:17 60 07/03/17 08:00 61 07/03/17 08:00 98.1 60 22 97/49 98 Venturi Mask 45 07/03/17 07:00 62 21 106/63 96 Venturi Mask 45 07/03/17 06:30 99 Venturi Mask 10.0 45 07/03/17 06:30 60 18 Venturi Mask 10.0 45 07/03/17 06:30 Venturi Mask 10.0 45 07/03/17 06:00 62 21 94/56 97 Venturi Mask 45 07/03/17 05:00 60 21 98/56 100 Venturi Mask 45 07/03/17 04:00 98.5 60 20 101/55 98 Venturi Mask 45 07/03/17 04:00 60 07/03/17 03:00 60 21 84/49 98 Venturi Mask 45 07/03/17 02:00 68 20 89/49 97 Venturi Mask 45 07/03/17 01:00 60 21 90/50 98 Venturi Mask 45 07/03/17 00:00 74 07/03/17 00:00 98.5 60 20 98/53 99 Venturi Mask 45 07/02/17 23:00 70 21 100/55 99 Venturi Mask 45 07/02/17 22:00 76 25 99/52 98 Venturi Mask 45 07/02/17 21:00 72 20 106/56 99 Venturi Mask 45 07/02/17 20:00 98.5 67 20 106/61 98 Venturi Mask 45 07/02/17 20:00 68 07/02/17 19:00 60 20 Venturi Mask 10.0 45 07/02/17 19:00 67 20 100/56 96 Bi-pap 40 07/02/17 19:00 Venturi Mask 10.0 45 07/02/17 19:00 99 Venturi Mask 10.0 45 07/02/17 18:00 66 22 94/56 100 Bi-pap 40 07/02/17 17:00 72 20 96/57 100 Bi-pap 40 07/02/17 16:00 97.8 65 20 98/59 98 Bi-pap 40 07/02/17 16:00 65 07/02/17 15:05 69 18 Venturi Mask 8.0 97 07/02/17 15:05 Venturi Mask 8.0 40 07/02/17 15:05 76 18 100 Facial 40 Intake and Output 07/03/17 07/04/17 19:00 07:00 Intake Total 82.5 ml Output Total 100 ml Balance -17.5 ml IV Total 82.5 ml Output Urine Total 100 ml Laboratory Tests 07/03/17 03:25: White Blood Count 10.2, Red Blood Count 3.06L, Hemoglobin 11.1L, Hematocrit 31.4L, Mean Corpuscular Volume 103H, Mean Corpuscular Hemoglobin 36.2H, Mean Corpuscular Hemoglobin Concent 35.3, Red Cell Distribution Width 13.4, Platelet Count 336, Mean Platelet Volume 5.7L, Neutrophils (%) (Auto) 62.3, Lymphocytes ( %) (Auto) 29.1, Monocytes (%) (Auto) 6.0, Eosinophils (%) (Auto) 2.3, Basophils (%) (Auto) 0.3, Sodium Level 139, Potassium Level 3.9, Chloride Level 103, Carbon Dioxide Level 28, Anion Gap 9, Blood Urea Nitrogen 17, Creatinine 1.2, Estimat Glomerular Filtration Rate > 60, Glucose Level 88, Calcium Level 9.3, Total Bilirubin 0.3, Aspartate Amino Transf (AST/SGOT) 12L, Alanine Aminotransferase (ALT/SGPT) 9L, Alkaline Phosphatase 73, Pro-B-Type Natriuretic Peptide 195H, Total Protein 7.2, Albumin 2.5L, Globulin 4.7, Albumin/Globulin Ratio 0.5L 07/03/17 09:50: Vancomycin Level Trough 22.5H 07/03/17 11:00: Arterial Blood pH 7.384, Arterial Blood Partial Pressure CO2 50.1H, Arterial Blood Partial Pressure O2 51.7L, Arterial Blood HCO3 29.2H, Arterial Blood Oxygen Saturation 86.7L, Arterial Blood Base Excess 3.4, Anthony Test Positive Height (Feet): 5 Height (Inches): 11.00 Weight (Pounds): 114 General Appearance: lethargic EENT: normal ENT inspection Neck: normal alignment Cardiovascular: normal peripheral pulses, normal rate, regular rhythm Respiratory/Chest: chest wall non-tender, lungs clear, normal breath sounds Abdomen: normal bowel sounds, non tender, soft Extremities: normal inspection Edema: no edema noted Arm (L), no edema noted Arm (R), no edema noted Leg (L), no edema noted Leg (R), no edema noted Pedal (L), no edema noted Pedal (R), no edema noted Generalized Neurologic: motor weakness Skin: normal pigmentation, warm/dry QUINTON HUMPHRIES Jul 03, 2017 15:00
--- NOTE | 2017-07-03 15:00 | General Progress Note ---
Assessment/Plan Problem List: (1) Respiratory failure ICD Codes: J96.90 - Respiratory failure, unspecified, unspecified whether with hypoxia or hypercapnia SNOMED: 009257261 (2) Sepsis ICD Codes: A41.9 - Sepsis, unspecified organism SNOMED: 95089338 (3) UTI (urinary tract infection) ICD Codes: N39.0 - Urinary tract infection, site not specified SNOMED: 69207218 (4) Schizophrenia ICD Codes: F20.9 - Schizophrenia, unspecified SNOMED: 71718320 (5) History of pacemaker ICD Codes: Z95.0 - Presence of cardiac pacemaker SNOMED: 175447481 (6) Limited mobility ICD Codes: Z74.09 - Other reduced mobility SNOMED: 8998019 Status: unchanged Assessment/Plan o2 pul tx ot pt diet abx cbc bmp am Subjective Constitutional: Reports: weakness Allergies: Coded Allergies: CHLORPROMAZINE (Verified Allergy, Unknown, 06/23/17) ERYTHROMYCIN BASE (Verified Allergy, Unknown, 06/23/17) Uncoded Allergies: TAPE (Allergy, Unknown, 06/23/17) All Systems: reviewed and negative except above Subjective pulm mask in icu Objective Last 24 Hour Vital Signs Date Time Temp Pulse Resp B/P (MAP) Pulse Ox O2 Delivery O2 Flow Rate FiO2 07/03/17 14:00 64 20 91/58 96 Bi-pap 40 07/03/17 13:00 65 20 92/58 96 Bi-pap 40 07/03/17 12:32 62 17 93 Facial 40 07/03/17 12:00 98.5 62 18 93/50 97 Bi-pap 40 07/03/17 11:00 60 18 86/44 96 Nasal Cannula 3.0 07/03/17 10:00 60 18 89/51 99 Nasal Cannula 3.0 07/03/17 09:00 60 22 92/54 100 Venturi Mask 45 07/03/17 08:17 60 07/03/17 08:00 61 07/03/17 08:00 98.1 60 22 97/49 98 Venturi Mask 45 07/03/17 07:00 62 21 106/63 96 Venturi Mask 45 07/03/17 06:30 99 Venturi Mask 10.0 45 07/03/17 06:30 60 18 Venturi Mask 10.0 45 07/03/17 06:30 Venturi Mask 10.0 45 07/03/17 06:00 62 21 94/56 97 Venturi Mask 45 07/03/17 05:00 60 21 98/56 100 Venturi Mask 45 07/03/17 04:00 98.5 60 20 101/55 98 Venturi Mask 45 07/03/17 04:00 60 07/03/17 03:00 60 21 84/49 98 Venturi Mask 45 07/03/17 02:00 68 20 89/49 97 Venturi Mask 45 07/03/17 01:00 60 21 90/50 98 Venturi Mask 45 07/03/17 00:00 74 07/03/17 00:00 98.5 60 20 98/53 99 Venturi Mask 45 07/02/17 23:00 70 21 100/55 99 Venturi Mask 45 07/02/17 22:00 76 25 99/52 98 Venturi Mask 45 07/02/17 21:00 72 20 106/56 99 Venturi Mask 45 07/02/17 20:00 98.5 67 20 106/61 98 Venturi Mask 45 07/02/17 20:00 68 07/02/17 19:00 60 20 Venturi Mask 10.0 45 07/02/17 19:00 67 20 100/56 96 Bi-pap 40 07/02/17 19:00 Venturi Mask 10.0 45 07/02/17 19:00 99 Venturi Mask 10.0 45 07/02/17 18:00 66 22 94/56 100 Bi-pap 40 07/02/17 17:00 72 20 96/57 100 Bi-pap 40 07/02/17 16:00 97.8 65 20 98/59 98 Bi-pap 40 07/02/17 16:00 65 07/02/17 15:05 69 18 Venturi Mask 8.0 97 07/02/17 15:05 Venturi Mask 8.0 40 07/02/17 15:05 76 18 100 Facial 40 Intake and Output 07/03/17 07/04/17 19:00 07:00 Intake Total 82.5 ml Output Total 100 ml Balance -17.5 ml IV Total 82.5 ml Output Urine Total 100 ml Laboratory Tests 07/03/17 03:25: White Blood Count 10.2, Red Blood Count 3.06L, Hemoglobin 11.1L, Hematocrit 31.4L, Mean Corpuscular Volume 103H, Mean Corpuscular Hemoglobin 36.2H, Mean Corpuscular Hemoglobin Concent 35.3, Red Cell Distribution Width 13.4, Platelet Count 336, Mean Platelet Volume 5.7L, Neutrophils (%) (Auto) 62.3, Lymphocytes ( %) (Auto) 29.1, Monocytes (%) (Auto) 6.0, Eosinophils (%) (Auto) 2.3, Basophils (%) (Auto) 0.3, Sodium Level 139, Potassium Level 3.9, Chloride Level 103, Carbon Dioxide Level 28, Anion Gap 9, Blood Urea Nitrogen 17, Creatinine 1.2, Estimat Glomerular Filtration Rate > 60, Glucose Level 88, Calcium Level 9.3, Total Bilirubin 0.3, Aspartate Amino Transf (AST/SGOT) 12L, Alanine Aminotransferase (ALT/SGPT) 9L, Alkaline Phosphatase 73, Pro-B-Type Natriuretic Peptide 195H, Total Protein 7.2, Albumin 2.5L, Globulin 4.7, Albumin/Globulin Ratio 0.5L 07/03/17 09:50: Vancomycin Level Trough 22.5H 07/03/17 11:00: Arterial Blood pH 7.384, Arterial Blood Partial Pressure CO2 50.1H, Arterial Blood Partial Pressure O2 51.7L, Arterial Blood HCO3 29.2H, Arterial Blood Oxygen Saturation 86.7L, Arterial Blood Base Excess 3.4, Anthony Test Positive Height (Feet): 5 Height (Inches): 11.00 Weight (Pounds): 114 General Appearance: lethargic EENT: normal ENT inspection Neck: normal alignment Cardiovascular: normal peripheral pulses, normal rate, regular rhythm Respiratory/Chest: chest wall non-tender, lungs clear, normal breath sounds Abdomen: normal bowel sounds, non tender, soft Extremities: normal inspection Edema: no edema noted Arm (L), no edema noted Arm (R), no edema noted Leg (L), no edema noted Leg (R), no edema noted Pedal (L), no edema noted Pedal (R), no edema noted Generalized Neurologic: motor weakness Skin: normal pigmentation, warm/dry QUINTON HUMPHRIES Jul 03, 2017 15:00
--- NOTE | 2017-07-03 15:00 | General Progress Note ---
Assessment/Plan Problem List: (1) Respiratory failure ICD Codes: J96.90 - Respiratory failure, unspecified, unspecified whether with hypoxia or hypercapnia SNOMED: 809352972 (2) Sepsis ICD Codes: A41.9 - Sepsis, unspecified organism SNOMED: 03681418 (3) UTI (urinary tract infection) ICD Codes: N39.0 - Urinary tract infection, site not specified SNOMED: 40658317 (4) Schizophrenia ICD Codes: F20.9 - Schizophrenia, unspecified SNOMED: 04760919 (5) History of pacemaker ICD Codes: Z95.0 - Presence of cardiac pacemaker SNOMED: 196285037 (6) Limited mobility ICD Codes: Z74.09 - Other reduced mobility SNOMED: 6978390 Status: unchanged Assessment/Plan o2 pul tx ot pt diet abx cbc bmp am Subjective Constitutional: Reports: weakness Allergies: Coded Allergies: CHLORPROMAZINE (Verified Allergy, Unknown, 06/23/17) ERYTHROMYCIN BASE (Verified Allergy, Unknown, 06/23/17) Uncoded Allergies: TAPE (Allergy, Unknown, 06/23/17) All Systems: reviewed and negative except above Subjective pulm mask in icu Objective Last 24 Hour Vital Signs Date Time Temp Pulse Resp B/P (MAP) Pulse Ox O2 Delivery O2 Flow Rate FiO2 07/03/17 14:00 64 20 91/58 96 Bi-pap 40 07/03/17 13:00 65 20 92/58 96 Bi-pap 40 07/03/17 12:32 62 17 93 Facial 40 07/03/17 12:00 98.5 62 18 93/50 97 Bi-pap 40 07/03/17 11:00 60 18 86/44 96 Nasal Cannula 3.0 07/03/17 10:00 60 18 89/51 99 Nasal Cannula 3.0 07/03/17 09:00 60 22 92/54 100 Venturi Mask 45 07/03/17 08:17 60 07/03/17 08:00 61 07/03/17 08:00 98.1 60 22 97/49 98 Venturi Mask 45 07/03/17 07:00 62 21 106/63 96 Venturi Mask 45 07/03/17 06:30 99 Venturi Mask 10.0 45 07/03/17 06:30 60 18 Venturi Mask 10.0 45 07/03/17 06:30 Venturi Mask 10.0 45 07/03/17 06:00 62 21 94/56 97 Venturi Mask 45 07/03/17 05:00 60 21 98/56 100 Venturi Mask 45 07/03/17 04:00 98.5 60 20 101/55 98 Venturi Mask 45 07/03/17 04:00 60 07/03/17 03:00 60 21 84/49 98 Venturi Mask 45 07/03/17 02:00 68 20 89/49 97 Venturi Mask 45 07/03/17 01:00 60 21 90/50 98 Venturi Mask 45 07/03/17 00:00 74 07/03/17 00:00 98.5 60 20 98/53 99 Venturi Mask 45 07/02/17 23:00 70 21 100/55 99 Venturi Mask 45 07/02/17 22:00 76 25 99/52 98 Venturi Mask 45 07/02/17 21:00 72 20 106/56 99 Venturi Mask 45 07/02/17 20:00 98.5 67 20 106/61 98 Venturi Mask 45 07/02/17 20:00 68 07/02/17 19:00 60 20 Venturi Mask 10.0 45 07/02/17 19:00 67 20 100/56 96 Bi-pap 40 07/02/17 19:00 Venturi Mask 10.0 45 07/02/17 19:00 99 Venturi Mask 10.0 45 07/02/17 18:00 66 22 94/56 100 Bi-pap 40 07/02/17 17:00 72 20 96/57 100 Bi-pap 40 07/02/17 16:00 97.8 65 20 98/59 98 Bi-pap 40 07/02/17 16:00 65 07/02/17 15:05 69 18 Venturi Mask 8.0 97 07/02/17 15:05 Venturi Mask 8.0 40 07/02/17 15:05 76 18 100 Facial 40 Intake and Output 07/03/17 07/04/17 19:00 07:00 Intake Total 82.5 ml Output Total 100 ml Balance -17.5 ml IV Total 82.5 ml Output Urine Total 100 ml Laboratory Tests 07/03/17 03:25: White Blood Count 10.2, Red Blood Count 3.06L, Hemoglobin 11.1L, Hematocrit 31.4L, Mean Corpuscular Volume 103H, Mean Corpuscular Hemoglobin 36.2H, Mean Corpuscular Hemoglobin Concent 35.3, Red Cell Distribution Width 13.4, Platelet Count 336, Mean Platelet Volume 5.7L, Neutrophils (%) (Auto) 62.3, Lymphocytes ( %) (Auto) 29.1, Monocytes (%) (Auto) 6.0, Eosinophils (%) (Auto) 2.3, Basophils (%) (Auto) 0.3, Sodium Level 139, Potassium Level 3.9, Chloride Level 103, Carbon Dioxide Level 28, Anion Gap 9, Blood Urea Nitrogen 17, Creatinine 1.2, Estimat Glomerular Filtration Rate > 60, Glucose Level 88, Calcium Level 9.3, Total Bilirubin 0.3, Aspartate Amino Transf (AST/SGOT) 12L, Alanine Aminotransferase (ALT/SGPT) 9L, Alkaline Phosphatase 73, Pro-B-Type Natriuretic Peptide 195H, Total Protein 7.2, Albumin 2.5L, Globulin 4.7, Albumin/Globulin Ratio 0.5L 07/03/17 09:50: Vancomycin Level Trough 22.5H 07/03/17 11:00: Arterial Blood pH 7.384, Arterial Blood Partial Pressure CO2 50.1H, Arterial Blood Partial Pressure O2 51.7L, Arterial Blood HCO3 29.2H, Arterial Blood Oxygen Saturation 86.7L, Arterial Blood Base Excess 3.4, Anthony Test Positive Height (Feet): 5 Height (Inches): 11.00 Weight (Pounds): 114 General Appearance: lethargic EENT: normal ENT inspection Neck: normal alignment Cardiovascular: normal peripheral pulses, normal rate, regular rhythm Respiratory/Chest: chest wall non-tender, lungs clear, normal breath sounds Abdomen: normal bowel sounds, non tender, soft Extremities: normal inspection Edema: no edema noted Arm (L), no edema noted Arm (R), no edema noted Leg (L), no edema noted Leg (R), no edema noted Pedal (L), no edema noted Pedal (R), no edema noted Generalized Neurologic: motor weakness Skin: normal pigmentation, warm/dry QUINTON HUMPHRIES Jul 03, 2017 15:00
[2017-07-03] MEDS: DOPamine 400mg/250ml 250 ML IV SCH (15:15)
[2017-07-03] MEDS: Vancomycin 750mg/NS 250ml IVPB SCH (15:37)
[2017-07-03] MEDS: LORazepam Inj 2mg/ml 1ml IV PRN ×2 (15:46→23:48)
--- NOTE | 2017-07-03 15:50 | Diagnostic Imaging Report ---
Indication: Status post intubation Technique: One view of the chest Comparison: 8 hours earlier Findings: Interim endotracheal intubation, endotracheal tube tip in good position approximately 4 cm above the cynthia. Left chest pacemaker again demonstrated. Left lung volume loss and consolidation again demonstrated. There is slightly increased consolidation in the right infrahilar lung Impression: Satisfactory endotracheal intubation Increasing right basilar consolidation or atelectasis Other stable findings as described
[2017-07-03] MEDS ORDERED: D5 1/2NS 1000ml IV ONE (17:33)
[2017-07-03] MEDS: Piperacillin/Tazobactam 3.375 GM in NS 110 ML IVPB SCH (21:46)
--- NOTE | 2017-07-03 22:56 | General Progress Note ---
Assessment/Plan Status: stable Assessment/Plan Dementia schizophrenia encephalopathy -zyprexa -ativan Subjective Date patient seen: Jul 03, 2017 Allergies: Coded Allergies: CHLORPROMAZINE (Verified Allergy, Unknown, 06/23/17) ERYTHROMYCIN BASE (Verified Allergy, Unknown, 06/23/17) Uncoded Allergies: TAPE (Allergy, Unknown, 06/23/17) Subjective nad calm and awake no agitation Objective Last 24 Hour Vital Signs Date Time Temp Pulse Resp B/P (MAP) Pulse Ox O2 Delivery O2 Flow Rate FiO2 07/03/17 21:00 84 16 100/62 98 Mechanical Ventilator 55 07/03/17 20:43 90 16 50 07/03/17 20:00 50 07/03/17 20:00 99.8 81 16 97/62 98 Mechanical Ventilator 55 07/03/17 19:08 79 16 50 07/03/17 18:00 85 18 99/54 100 Mechanical Ventilator 55 07/03/17 17:00 95 20 112/51 100 Mechanical Ventilator 55 07/03/17 16:33 76 16 50 07/03/17 16:00 102 07/03/17 16:00 98.1 108 22 107/62 98 Mechanical Ventilator 55 07/03/17 16:00 150/51 07/03/17 15:15 91/50 07/03/17 15:00 55 07/03/17 15:00 110 20 150/51 98 Mechanical Ventilator 55 07/03/17 14:45 22 07/03/17 14:45 122 21 50 07/03/17 14:45 64 20 91/58 96 Bi-pap 40 07/03/17 14:00 64 20 91/58 96 Bi-pap 40 07/03/17 13:00 65 20 92/58 96 Bi-pap 40 07/03/17 12:32 62 17 93 Facial 40 07/03/17 12:00 60 07/03/17 12:00 98.5 62 18 93/50 97 Bi-pap 40 07/03/17 11:00 60 18 86/44 96 Nasal Cannula 3.0 07/03/17 10:00 60 18 89/51 99 Nasal Cannula 3.0 07/03/17 09:00 60 22 92/54 100 Venturi Mask 45 07/03/17 08:00 61 07/03/17 08:00 98.1 60 22 97/49 98 Venturi Mask 45 07/03/17 07:00 62 21 106/63 96 Venturi Mask 45 07/03/17 06:30 99 Venturi Mask 10.0 45 07/03/17 06:30 60 18 Venturi Mask 10.0 45 07/03/17 06:30 Venturi Mask 10.0 45 07/03/17 06:00 62 21 94/56 97 Venturi Mask 45 07/03/17 05:00 60 21 98/56 100 Venturi Mask 45 07/03/17 04:00 98.5 60 20 101/55 98 Venturi Mask 45 07/03/17 04:00 60 07/03/17 03:00 60 21 84/49 98 Venturi Mask 45 07/03/17 02:00 68 20 89/49 97 Venturi Mask 45 07/03/17 01:00 60 21 90/50 98 Venturi Mask 45 07/03/17 00:00 74 07/03/17 00:00 98.5 60 20 98/53 99 Venturi Mask 45 07/02/17 23:00 70 21 100/55 99 Venturi Mask 45 Intake and Output 07/03/17 07/04/17 19:00 07:00 Intake Total 672.5 ml Output Total 380 ml 170 ml Balance 292.5 ml -170 ml IV Total 672.5 ml Output Urine Total 380 ml 170 ml Laboratory Tests 07/03/17 03:25: White Blood Count 10.2, Red Blood Count 3.06L, Hemoglobin 11.1L, Hematocrit 31.4L, Mean Corpuscular Volume 103H, Mean Corpuscular Hemoglobin 36.2H, Mean Corpuscular Hemoglobin Concent 35.3, Red Cell Distribution Width 13.4, Platelet Count 336, Mean Platelet Volume 5.7L, Neutrophils (%) (Auto) 62.3, Lymphocytes ( %) (Auto) 29.1, Monocytes (%) (Auto) 6.0, Eosinophils (%) (Auto) 2.3, Basophils (%) (Auto) 0.3, Sodium Level 139, Potassium Level 3.9, Chloride Level 103, Carbon Dioxide Level 28, Anion Gap 9, Blood Urea Nitrogen 17, Creatinine 1.2, Estimat Glomerular Filtration Rate > 60, Glucose Level 88, Calcium Level 9.3, Total Bilirubin 0.3, Aspartate Amino Transf (AST/SGOT) 12L, Alanine Aminotransferase (ALT/SGPT) 9L, Alkaline Phosphatase 73, Pro-B-Type Natriuretic Peptide 195H, Total Protein 7.2, Albumin 2.5L, Globulin 4.7, Albumin/Globulin Ratio 0.5L 07/03/17 09:50: Vancomycin Level Trough 22.5H 07/03/17 11:00: Arterial Blood pH 7.384, Arterial Blood Partial Pressure CO2 50.1H, Arterial Blood Partial Pressure O2 51.7L, Arterial Blood HCO3 29.2H, Arterial Blood Oxygen Saturation 86.7L, Arterial Blood Base Excess 3.4, Anthony Test Positive 07/03/17 14:51: Arterial Blood pH 7.433, Arterial Blood Partial Pressure CO2 35.6, Arterial Blood Partial Pressure O2 63.5L, Arterial Blood HCO3 23.2, Arterial Blood Oxygen Saturation 93.1, Arterial Blood Base Excess -0.7, Anthony Test Positive Height (Feet): 5 Height (Inches): 11.00 Weight (Pounds): 114 Hill Hare M.D. Jul 03, 2017 22:56
--- NOTE | 2017-07-03 23:54 | Infectious Diseases Prog Note ---
Assessment/Plan Problems: (1) Sepsis Assessment & Plan: Due to pneumonia probably. WBC better. (2) Acute respiratory failure Assessment & Plan: In the setting of lung collapse. Remains very tenuous. (3) HCAP (healthcare-associated pneumonia) Assessment & Plan: Follow-up SCx. Continue with vancomycin IV and Zosyn. (4) Collapse of left lung (5) Pyuria Assessment & Plan: UCx noted. On zosyn already. Subjective Allergies: Coded Allergies: CHLORPROMAZINE (Verified Allergy, Unknown, 06/23/17) ERYTHROMYCIN BASE (Verified Allergy, Unknown, 06/23/17) Uncoded Allergies: TAPE (Allergy, Unknown, 06/23/17) Objective Vital Signs Last 24 Hour Vital Signs Date Time Temp Pulse Resp B/P (MAP) Pulse Ox O2 Delivery O2 Flow Rate FiO2 07/03/17 22:55 76 16 50 07/03/17 21:00 84 16 100/62 98 Mechanical Ventilator 55 07/03/17 20:43 90 16 50 07/03/17 20:00 50 07/03/17 20:00 99.8 81 16 97/62 98 Mechanical Ventilator 55 07/03/17 19:08 79 16 50 07/03/17 18:00 85 18 99/54 100 Mechanical Ventilator 55 07/03/17 17:00 95 20 112/51 100 Mechanical Ventilator 55 07/03/17 16:33 76 16 50 07/03/17 16:00 102 07/03/17 16:00 98.1 108 22 107/62 98 Mechanical Ventilator 55 07/03/17 16:00 150/51 07/03/17 15:15 91/50 07/03/17 15:00 55 07/03/17 15:00 110 20 150/51 98 Mechanical Ventilator 55 07/03/17 14:45 22 07/03/17 14:45 122 21 50 07/03/17 14:45 64 20 91/58 96 Bi-pap 40 07/03/17 14:00 64 20 91/58 96 Bi-pap 40 07/03/17 13:00 65 20 92/58 96 Bi-pap 40 07/03/17 12:32 62 17 93 Facial 40 07/03/17 12:00 60 07/03/17 12:00 98.5 62 18 93/50 97 Bi-pap 40 07/03/17 11:00 60 18 86/44 96 Nasal Cannula 3.0 07/03/17 10:00 60 18 89/51 99 Nasal Cannula 3.0 07/03/17 09:00 60 22 92/54 100 Venturi Mask 45 07/03/17 08:00 61 07/03/17 08:00 98.1 60 22 97/49 98 Venturi Mask 45 07/03/17 07:00 62 21 106/63 96 Venturi Mask 45 07/03/17 06:30 99 Venturi Mask 10.0 45 07/03/17 06:30 60 18 Venturi Mask 10.0 45 07/03/17 06:30 Venturi Mask 10.0 45 07/03/17 06:00 62 21 94/56 97 Venturi Mask 45 07/03/17 05:00 60 21 98/56 100 Venturi Mask 45 07/03/17 04:00 98.5 60 20 101/55 98 Venturi Mask 45 07/03/17 04:00 60 07/03/17 03:00 60 21 84/49 98 Venturi Mask 45 07/03/17 02:00 68 20 89/49 97 Venturi Mask 45 07/03/17 01:00 60 21 90/50 98 Venturi Mask 45 07/03/17 00:00 74 07/03/17 00:00 98.5 60 20 98/53 99 Venturi Mask 45 Height (Feet): 5 Height (Inches): 11.00 Weight (Pounds): 114 Laboratory Tests Test 07/03/17 03:25 07/03/17 09:50 07/03/17 11:00 07/03/17 14:51 White Blood Count 10.2 K/UL (4.8-10.8) Red Blood Count 3.06 M/UL (4.70-6.10) L Hemoglobin 11.1 G/DL (14.2-18.0) L Hematocrit 31.4 % (42.0-52.0) L Mean Corpuscular Volume 103 FL (80-99) H Mean Corpuscular Hemoglobin 36.2 PG (27.0-31.0) H Mean Corpuscular Hemoglobin Concent 35.3 G/DL (32.0-36.0) Red Cell Distribution Width 13.4 % (11.6-14.8) Platelet Count 336 K/UL (150-450) Mean Platelet Volume 5.7 FL (6.5-10.1) L Neutrophils (%) (Auto) 62.3 % (45.0-75.0) Lymphocytes (%) (Auto) 29.1 % (20.0-45.0) Monocytes (%) (Auto) 6.0 % (1.0-10.0) Eosinophils (%) (Auto) 2.3 % (0.0-3.0) Basophils (%) (Auto) 0.3 % (0.0-2.0) Sodium Level 139 MMOL/L (136-145) Potassium Level 3.9 MMOL/L (3.5-5.1) Chloride Level 103 MMOL/L (98-107) Carbon Dioxide Level 28 MMOL/L (21-32) Anion Gap 9 mmol/L (5-15) Blood Urea Nitrogen 17 mg/dL (7-18) Creatinine 1.2 MG/DL (0.55-1.30) Estimat Glomerular Filtration Rate > 60 mL/min (>60) Glucose Level 88 MG/DL (74-106) Calcium Level 9.3 MG/DL (8.5-10.1) Total Bilirubin 0.3 MG/DL (0.2-1.0) Aspartate Amino Transf (AST/SGOT) 12 U/L (15-37) L Alanine Aminotransferase (ALT/SGPT) 9 U/L (12-78) L Alkaline Phosphatase 73 U/L (46-116) Pro-B-Type Natriuretic Peptide 195 pg/mL (0-125) H Total Protein 7.2 G/DL (6.4-8.2) Albumin 2.5 G/DL (3.4-5.0) L Globulin 4.7 g/dL Albumin/Globulin Ratio 0.5 (1.0-2.7) L Vancomycin Level Trough 22.5 ug/mL (5.0-12.0) H Arterial Blood pH 7.384 (7.350-7.450) 7.433 (7.350-7.450) Arterial Blood Partial Pressure CO2 50.1 mmHg (35.0-45.0) H 35.6 mmHg (35.0-45.0) Arterial Blood Partial Pressure O2 51.7 mmHg (75.0-100.0) L 63.5 mmHg (75.0-100.0) L Arterial Blood HCO3 29.2 mmol/L (22.0-26.0) H 23.2 mmol/L (22.0-26.0) Arterial Blood Oxygen Saturation 86.7 % (92.0-98.0) L 93.1 % (92.0-98.0) Arterial Blood Base Excess 3.4 -0.7 Anthony Test Positive Positive Current Medications Medications (Trade) Dose Ordered Sig/Karen Route PRN Reason Start Time Stop Time Status Last Admin Dose Admin Albuterol/ Ipratropium (DuoNeb 0.5-3(2.5)mg/3ml) 3 ml Q4H PRN HHN Shortness of Breath 07/02/17 03:30 07/06/17 19:29 Carbamazepine (TEGretol) 200 mg FOUR TIMES A DAY ORAL 07/02/17 09:00 07/23/17 12:59 07/03/17 20:39 Dextrose (Dextrose 50%) STAT PRN IV Hypoglycemia 07/02/17 12:00 07/25/17 11:59 Dextrose/Sodium Chloride 1,000 ml @ 75 mls/hr [id number] IV 07/03/17 13:00 08/02/17 12:59 07/03/17 13:07 Docusate Sodium (Colace) 100 mg DAILY ORAL 07/02/17 09:00 07/29/17 08:59 07/03/17 08:39 Dopamine HCl/ Dextrose 250 ml @ 0 mls/hr Q24H IV 07/03/17 15:00 08/02/17 14:59 07/03/17 15:15 Heparin Sodium (Porcine) (Heparin 5000 units/ml) 5,000 units EVERY 12 HOURS SUBQ 07/02/17 09:00 07/23/17 20:59 07/03/17 20:49 Levetiracetam (Keppra) 500 mg Q12HR ORAL 07/02/17 09:00 07/23/17 20:59 07/03/17 20:39 Lorazepam (Ativan 2mg/ml 1ml) 2 mg Q4H PRN IV For Anxiety 07/02/17 00:15 07/08/17 12:14 07/03/17 23:48 Methylprednisolone Sodium Succinate (Solu-MEDROL) 60 mg DAILY IV 07/02/17 09:00 07/23/17 17:59 07/03/17 08:40 Morphine Sulfate (Morphine Sulfate) 2 mg Q4H PRN IVP Moderate Pain (Pain Scale 4-6) 07/02/17 00:15 07/08/17 12:14 Morphine Sulfate (Morphine Sulfate) 4 mg Q4H PRN IVP Severe Pain (Pain Scale 7-10) 07/02/17 00:15 07/08/17 12:14 Nitroglycerin (Ntg) 0.4 mg Q5M X 3 DOSES PRN SL Prn Chest Pain 07/01/17 23:45 07/23/17 13:29 Olanzapine (ZyPREXA) 20 mg BEDTIME ORAL 07/02/17 21:00 07/24/17 08:59 07/03/17 20:48 Ondansetron HCl (Zofran) 4 mg Q6H PRN IVP Nausea & Vomiting 07/02/17 00:00 07/23/17 11:59 Pantoprazole (Protonix) 40 mg DAILY IV 07/02/17 09:00 08/01/17 08:59 07/03/17 08:40 Piperacillin Sod/ Tazobactam Sod 3.375 gm/Sodium Chloride 110 ml @ 27.5 mls/hr EVERY 8 HOURS IVPB 07/03/17 22:00 07/07/17 23:59 07/03/17 21:46 Theophylline (Dane-Dur) 100 mg EVERY 12 HOURS ORAL 07/02/17 09:00 07/23/17 20:59 07/03/17 20:39 Vancomycin HCl (Vanco rx to dose) 1 ea DAILY PRN MISC Per rx protocol 07/02/17 09:00 07/28/17 12:59 Vancomycin/Sodium Chloride 250 ml @ 166.667 mls/hr Q24H IVPB 07/03/17 14:00 07/08/17 13:59 07/03/17 15:37 SHEKHAR MERAZ Jul 03, 2017 23:54
--- NOTE | 2017-07-03 23:59 | Cardiology Progress Note ---
Assessment/Plan Assessment/Plan 1. Sinus tachycardia, likely due to hypoxia. 2. Hypotension, due to sepsis, normal LV systolic function with LVEF at 60-65%. 3. Acute respiratory failure due to left lung collapse, got intubated on mechanical ventilator. 4. Dual chamber pacemaker implantation, currently intrinsic atrial and ventricular activity. 5. HCAP, on IV ABx. Subjective Subjective No cardiac events. Got intubated due to respiratory distress. Sinus rhythm at 84. Objective Last 24 Hour Vital Signs Date Time Temp Pulse Resp B/P (MAP) Pulse Ox O2 Delivery O2 Flow Rate FiO2 07/03/17 22:55 76 16 50 07/03/17 21:00 84 16 100/62 98 Mechanical Ventilator 55 07/03/17 20:43 90 16 50 07/03/17 20:00 50 07/03/17 20:00 99.8 81 16 97/62 98 Mechanical Ventilator 55 07/03/17 19:08 79 16 50 07/03/17 18:00 85 18 99/54 100 Mechanical Ventilator 55 07/03/17 17:00 95 20 112/51 100 Mechanical Ventilator 55 07/03/17 16:33 76 16 50 07/03/17 16:00 102 07/03/17 16:00 98.1 108 22 107/62 98 Mechanical Ventilator 55 07/03/17 16:00 150/51 07/03/17 15:15 91/50 07/03/17 15:00 55 07/03/17 15:00 110 20 150/51 98 Mechanical Ventilator 55 07/03/17 14:45 22 07/03/17 14:45 122 21 50 07/03/17 14:45 64 20 91/58 96 Bi-pap 40 07/03/17 14:00 64 20 91/58 96 Bi-pap 40 07/03/17 13:00 65 20 92/58 96 Bi-pap 40 07/03/17 12:32 62 17 93 Facial 40 07/03/17 12:00 60 07/03/17 12:00 98.5 62 18 93/50 97 Bi-pap 40 07/03/17 11:00 60 18 86/44 96 Nasal Cannula 3.0 07/03/17 10:00 60 18 89/51 99 Nasal Cannula 3.0 07/03/17 09:00 60 22 92/54 100 Venturi Mask 45 07/03/17 08:00 61 07/03/17 08:00 98.1 60 22 97/49 98 Venturi Mask 45 07/03/17 07:00 62 21 106/63 96 Venturi Mask 45 07/03/17 06:30 99 Venturi Mask 10.0 45 07/03/17 06:30 60 18 Venturi Mask 10.0 45 07/03/17 06:30 Venturi Mask 10.0 45 07/03/17 06:00 62 21 94/56 97 Venturi Mask 45 07/03/17 05:00 60 21 98/56 100 Venturi Mask 45 07/03/17 04:00 98.5 60 20 101/55 98 Venturi Mask 45 07/03/17 04:00 60 07/03/17 03:00 60 21 84/49 98 Venturi Mask 45 07/03/17 02:00 68 20 89/49 97 Venturi Mask 45 07/03/17 01:00 60 21 90/50 98 Venturi Mask 45 07/03/17 00:00 74 07/03/17 00:00 98.5 60 20 98/53 99 Venturi Mask 45 Intake and Output 07/03/17 07/04/17 19:00 07:00 Intake Total 672.5 ml Output Total 380 ml 280 ml Balance 292.5 ml -280 ml IV Total 672.5 ml Output Urine Total 380 ml 280 ml Stool Total 0 ml 2D Echo: LVEF 60-65%, mild TR with RVSP at 33 mmHg Laboratory Tests Test 07/03/17 03:25 07/03/17 09:50 07/03/17 11:00 07/03/17 14:51 White Blood Count 10.2 K/UL (4.8-10.8) Red Blood Count 3.06 M/UL (4.70-6.10) L Hemoglobin 11.1 G/DL (14.2-18.0) L Hematocrit 31.4 % (42.0-52.0) L Mean Corpuscular Volume 103 FL (80-99) H Mean Corpuscular Hemoglobin 36.2 PG (27.0-31.0) H Mean Corpuscular Hemoglobin Concent 35.3 G/DL (32.0-36.0) Red Cell Distribution Width 13.4 % (11.6-14.8) Platelet Count 336 K/UL (150-450) Mean Platelet Volume 5.7 FL (6.5-10.1) L Neutrophils (%) (Auto) 62.3 % (45.0-75.0) Lymphocytes (%) (Auto) 29.1 % (20.0-45.0) Monocytes (%) (Auto) 6.0 % (1.0-10.0) Eosinophils (%) (Auto) 2.3 % (0.0-3.0) Basophils (%) (Auto) 0.3 % (0.0-2.0) Sodium Level 139 MMOL/L (136-145) Potassium Level 3.9 MMOL/L (3.5-5.1) Chloride Level 103 MMOL/L (98-107) Carbon Dioxide Level 28 MMOL/L (21-32) Anion Gap 9 mmol/L (5-15) Blood Urea Nitrogen 17 mg/dL (7-18) Creatinine 1.2 MG/DL (0.55-1.30) Estimat Glomerular Filtration Rate > 60 mL/min (>60) Glucose Level 88 MG/DL (74-106) Calcium Level 9.3 MG/DL (8.5-10.1) Total Bilirubin 0.3 MG/DL (0.2-1.0) Aspartate Amino Transf (AST/SGOT) 12 U/L (15-37) L Alanine Aminotransferase (ALT/SGPT) 9 U/L (12-78) L Alkaline Phosphatase 73 U/L (46-116) Pro-B-Type Natriuretic Peptide 195 pg/mL (0-125) H Total Protein 7.2 G/DL (6.4-8.2) Albumin 2.5 G/DL (3.4-5.0) L Globulin 4.7 g/dL Albumin/Globulin Ratio 0.5 (1.0-2.7) L Vancomycin Level Trough 22.5 ug/mL (5.0-12.0) H Arterial Blood pH 7.384 (7.350-7.450) 7.433 (7.350-7.450) Arterial Blood Partial Pressure CO2 50.1 mmHg (35.0-45.0) H 35.6 mmHg (35.0-45.0) Arterial Blood Partial Pressure O2 51.7 mmHg (75.0-100.0) L 63.5 mmHg (75.0-100.0) L Arterial Blood HCO3 29.2 mmol/L (22.0-26.0) H 23.2 mmol/L (22.0-26.0) Arterial Blood Oxygen Saturation 86.7 % (92.0-98.0) L 93.1 % (92.0-98.0) Arterial Blood Base Excess 3.4 -0.7 Anthony Test Positive Positive Objective HEENT: Atraumatic and normocephalic. ENT, pupils are equal, round, and reactive to light and accommodation. Pale conjunctiva, intubated. NECK: JVP cannot be assessed. No carotid bruit. Carotid upstrokes 2+ bilaterally. LUNGS: Diminished BS left lung. CVS: Normal S1, S2. no murmurs, gallops or rubs. PMI is at fourth intercostal space in the midclavicular line. ABDOMEN: Soft, nontender, and nondistended. No hepatosplenomegaly. Positive bowel sounds. EXTREMITIES: No evidence of edema, clubbing, or cyanosis. CALLUM BARON Jul 03, 2017 23:59
[2017-07-04] VITALS (23 sets, daily range): BP systolic 83–135; BP diastolic 49–77
[2017-07-04] MEDS: D5 1/2NS 1,000 ML IV SCH ×2 (06:23→16:44)
[2017-07-04] MEDS: Piperacillin/Tazobactam 3.375 GM in NS 110 ML IVPB SCH ×3 (06:24→22:15)
[2017-07-04 06:36] LABS: BASOPHILS % (AUTO) 0.8 % (0.0-2.0); EOSINOPHILS % (AUTO) 2.6 % (0.0-3.0); HEMATOCRIT 31.2 % (42.0-52.0); HEMOGLOBIN 10.8 G/DL (14.2-18.0); LYMPHOCYTES % (AUTO) 30.2 % (20.0-45.0); MEAN CORPUSCULAR VOLUME 101 FL (80-99); MONOCYTES % (AUTO) 6.6 % (1.0-10.0); NEUTROPHILS % (AUTO) 59.8 % (45.0-75.0); PLATELET COUNT 341 K/UL (150-450); WHITE BLOOD COUNT 10.2 K/UL (4.8-10.8)
[2017-07-04 06:37] LABS: ALANINE AMINOTRANSFERASE 9 U/L (12-78); ALBUMIN 2.4 G/DL (3.4-5.0); ALBUMIN/GLOBULIN RATIO 0.5 (1.0-2.7); ALKALINE PHOSPHATASE 65 U/L (46-116); ANION GAP 10 mmol/L (5-15); ASPARTATE AMINO TRANSFERASE 34 U/L (15-37); BILIRUBIN,TOTAL 0.5 MG/DL (0.2-1.0); BLOOD UREA NITROGEN 16 mg/dL (7-18); CARBON DIOXIDE 23 MMOL/L (21-32); CHLORIDE 104 MMOL/L (98-107); CREATININE 1.2 MG/DL (0.55-1.30); POTASSIUM 5.1 MMOL/L (3.5-5.1); SODIUM 137 MMOL/L (136-145)
--- NOTE | 2017-07-04 08:09 | Nephrology Progress Note ---
Assessment/Plan Assessment 1. left lung collapse 2. Elevated bicarbonate is in response to severe respiratory acidosis. 3. Hypertension. 4. History of chronic obstructive pulmonary disease. Plan plan to continue iv antibiotic monitoring renal function monitoring electrolyte replace as need avoid any NSAID Subjective ROS Limited/Unobtainable: Yes Constitutional: Reports: no symptoms Subjective had bronch yesterday got intubated Objective Objective Last 24 Hour Vital Signs Date Time Temp Pulse Resp B/P (MAP) Pulse Ox O2 Delivery O2 Flow Rate FiO2 07/04/17 07:29 83 16 50 07/04/17 07:00 70 16 99/61 99 Mechanical Ventilator 50 07/04/17 06:00 60 16 96/49 99 Mechanical Ventilator 50 07/04/17 05:14 61 16 50 07/04/17 05:00 62 16 98/57 99 Mechanical Ventilator 50 07/04/17 04:00 50 07/04/17 04:00 60 07/04/17 04:00 98.1 74 16 132/77 99 Mechanical Ventilator 50 07/04/17 03:19 71 16 50 07/04/17 03:00 70 16 105/60 100 Mechanical Ventilator 50 07/04/17 02:00 74 16 135/65 99 Mechanical Ventilator 50 07/04/17 01:20 72 16 50 07/04/17 01:00 73 16 92/56 99 Mechanical Ventilator 50 07/04/17 00:00 50 07/04/17 00:00 87 07/04/17 00:00 99.4 75 16 104/61 99 Mechanical Ventilator 50 07/03/17 23:00 83 16 107/63 98 Mechanical Ventilator 50 07/03/17 22:55 76 16 50 07/03/17 22:00 83 16 114/64 98 Mechanical Ventilator 50 07/03/17 21:00 84 16 100/62 98 Mechanical Ventilator 55 07/03/17 20:43 90 16 50 07/03/17 20:00 81 07/03/17 20:00 50 07/03/17 20:00 99.8 81 16 97/62 98 Mechanical Ventilator 55 07/03/17 19:08 79 16 50 07/03/17 18:00 85 18 99/54 100 Mechanical Ventilator 55 07/03/17 17:00 95 20 112/51 100 Mechanical Ventilator 55 07/03/17 16:33 76 16 50 07/03/17 16:00 102 07/03/17 16:00 98.1 108 22 107/62 98 Mechanical Ventilator 55 07/03/17 16:00 150/51 07/03/17 15:15 91/50 07/03/17 15:00 55 07/03/17 15:00 110 20 150/51 98 Mechanical Ventilator 55 07/03/17 14:45 22 07/03/17 14:45 122 21 50 07/03/17 14:45 64 20 91/58 96 Bi-pap 40 07/03/17 14:00 64 20 91/58 96 Bi-pap 40 07/03/17 13:00 65 20 92/58 96 Bi-pap 40 07/03/17 12:32 62 17 93 Facial 40 07/03/17 12:00 60 07/03/17 12:00 98.5 62 18 93/50 97 Bi-pap 40 07/03/17 11:00 60 18 86/44 96 Nasal Cannula 3.0 07/03/17 10:00 60 18 89/51 99 Nasal Cannula 3.0 07/03/17 09:00 60 22 92/54 100 Venturi Mask 45 Intake and Output 07/04/17 07/05/17 18:59 06:59 Output Total 50 ml Balance -50 ml Output Urine Total 50 ml Laboratory Tests 07/03/17 09:50: Vancomycin Level Trough 22.5H 07/03/17 11:00: Arterial Blood pH 7.384, Arterial Blood Partial Pressure CO2 50.1H, Arterial Blood Partial Pressure O2 51.7L, Arterial Blood HCO3 29.2H, Arterial Blood Oxygen Saturation 86.7L, Arterial Blood Base Excess 3.4, Anthony Test Positive 07/03/17 14:51: Arterial Blood pH 7.433, Arterial Blood Partial Pressure CO2 35.6, Arterial Blood Partial Pressure O2 63.5L, Arterial Blood HCO3 23.2, Arterial Blood Oxygen Saturation 93.1, Arterial Blood Base Excess -0.7, Anthony Test Positive 07/04/17 05:20: White Blood Count 10.2, Red Blood Count 3.10L, Hemoglobin 10.8L, Hematocrit 31.2L, Mean Corpuscular Volume 101H, Mean Corpuscular Hemoglobin 34.8H, Mean Corpuscular Hemoglobin Concent 34.6, Red Cell Distribution Width 13.0, Platelet Count 341, Mean Platelet Volume 5.8L, Neutrophils (%) (Auto) 59.8, Lymphocytes ( %) (Auto) 30.2, Monocytes (%) (Auto) 6.6, Eosinophils (%) (Auto) 2.6, Basophils (%) (Auto) 0.8, Sodium Level 137, Potassium Level 5.1, Chloride Level 104, Carbon Dioxide Level 23, Anion Gap 10, Blood Urea Nitrogen 16, Creatinine 1.2, Estimat Glomerular Filtration Rate > 60, Glucose Level 107H, Calcium Level 9.0, Total Bilirubin 0.5, Aspartate Amino Transf (AST/SGOT) 34, Alanine Aminotransferase (ALT/SGPT) 9L, Alkaline Phosphatase 65, Pro-B-Type Natriuretic Peptide 378H, Total Protein 6.8, Albumin 2.4L, Globulin 4.4, Albumin/Globulin Ratio 0.5L Height (Feet): 5 Height (Inches): 11.00 Weight (Pounds): 120 Objective HEAD AND NECK: No JVP. No LAD. No thyromegaly. Extraocular movements intact. Pupils are reactive to light and accommodation. LUNGS: Clear to auscultation. CARDIAC: Regular rate and rhythm. S1 and S2. No murmur. No rub. ABDOMEN: Soft, nontender, and nondistended. EXTREMITIES: No edema. No clubbing. No cyanosis. NEUROLOGIC: The patient opened up his eyes, not following verbal commands. RANCHO SYKES Jul 04, 2017 08:09
[2017-07-04] MEDS: Docusate 100mg cap ORAL SCH (08:57)
[2017-07-04] MEDS: Theophylline ER 100mg ORAL SCH ×2 (08:57→21:27)
[2017-07-04] MEDS: carBAMazepine 200mg tab ORAL SCH ×4 (08:57→21:27)
[2017-07-04] MEDS: LORazepam Inj 2mg/ml 1ml IV PRN ×2 (08:57→22:14)
[2017-07-04] MEDS: Pantoprazole Inj IV SCH (08:58)
[2017-07-04] MEDS: Solu-MEDROL 125mg Inj IV SCH (08:58)
[2017-07-04] MEDS: Heparin 5000 units/ml inj SUBQ SCH ×2 (08:58→21:29)
[2017-07-04] MEDS ORDERED: Pantoprazole Inj IV SCH (09:00)
--- NOTE | 2017-07-04 10:24 | Pulmonolgy Critical Care Note ---
Critical Care - Asmt/Plan Problems: (1) Acute encephalopathy (2) Acute respiratory failure (3) Collapse of left lung (4) UTI (urinary tract infection) (5) Schizophrenia (6) History of pacemaker (7) Fever Respiratory: monitor respiratory rate, adjust FIO2, CXR Cardiac: continue to monitor HR/BP Renal: F/U I&O, keep IV fluid Infectious Disease: check cultures Gastrointestinal: continue feedings/current rate Endocrine: monitor blood sugar, check HgA1C Hematologic: transfuse if hgb<8.5 Neurologic: PRN Ativan, keep patient comfortable Prophylaxis: Heparin Notes Reviewed: time motion analyst, cardio, 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 with: nurses, consultants, director case managementquality improvement manager - Objective Last 24 Hour Vital Signs Date Time Temp Pulse Resp B/P (MAP) Pulse Ox O2 Delivery O2 Flow Rate FiO2 07/04/17 10:00 60 16 83/52 100 Mechanical Ventilator 50 07/04/17 09:01 60 16 50 07/04/17 09:00 65 16 124/62 100 Mechanical Ventilator 50 07/04/17 08:00 50 07/04/17 08:00 98.5 62 18 99/60 98 Mechanical Ventilator 50 07/04/17 08:00 62 07/04/17 07:29 83 16 50 07/04/17 07:00 70 16 99/61 99 Mechanical Ventilator 50 07/04/17 06:00 60 16 96/49 99 Mechanical Ventilator 50 07/04/17 05:14 61 16 50 07/04/17 05:00 62 16 98/57 99 Mechanical Ventilator 50 07/04/17 04:00 50 07/04/17 04:00 60 07/04/17 04:00 98.1 74 16 132/77 99 Mechanical Ventilator 50 07/04/17 03:19 71 16 50 07/04/17 03:00 70 16 105/60 100 Mechanical Ventilator 50 07/04/17 02:00 74 16 135/65 99 Mechanical Ventilator 50 07/04/17 01:20 72 16 50 07/04/17 01:00 73 16 92/56 99 Mechanical Ventilator 50 07/04/17 00:00 50 07/04/17 00:00 87 07/04/17 00:00 99.4 75 16 104/61 99 Mechanical Ventilator 50 07/03/17 23:00 83 16 107/63 98 Mechanical Ventilator 50 07/03/17 22:55 76 16 50 07/03/17 22:00 83 16 114/64 98 Mechanical Ventilator 50 07/03/17 21:00 84 16 100/62 98 Mechanical Ventilator 55 07/03/17 20:43 90 16 50 07/03/17 20:00 81 07/03/17 20:00 50 07/03/17 20:00 99.8 81 16 97/62 98 Mechanical Ventilator 55 07/03/17 19:08 79 16 50 07/03/17 18:00 85 18 99/54 100 Mechanical Ventilator 55 07/03/17 17:00 95 20 112/51 100 Mechanical Ventilator 55 07/03/17 16:33 76 16 50 07/03/17 16:00 102 07/03/17 16:00 98.1 108 22 107/62 98 Mechanical Ventilator 55 07/03/17 16:00 150/51 07/03/17 15:15 91/50 07/03/17 15:00 55 07/03/17 15:00 110 20 150/51 98 Mechanical Ventilator 55 07/03/17 14:45 22 07/03/17 14:45 122 21 50 07/03/17 14:45 64 20 91/58 96 Bi-pap 40 07/03/17 14:00 64 20 91/58 96 Bi-pap 40 07/03/17 13:00 65 20 92/58 96 Bi-pap 40 07/03/17 12:32 62 17 93 Facial 40 07/03/17 12:00 60 07/03/17 12:00 98.5 62 18 93/50 97 Bi-pap 40 07/03/17 11:00 60 18 86/44 96 Nasal Cannula 3.0 Status: sedated Condition: critical HEENT: atraumatic Neck: full ROM Lungs: chest wall tender Heart: HR/BP stable, regular Abdomen: non-tender, active bowel sounds Extremities: no C/C/E, edema Decubiti: stage Critical Care - Subjective ROS Limited/Unobtainable: No ICU Day: 2 Intubation Day: 2 Condition: critical EKG Rhythm: Sinus Rhythm FI02: 50 Vent Support Breath Rate: 16 Vent Support Mode: AC Vent Tidal Volume: 500 Sputum Amount: Moderate PIP: 26 I&O: Intake and Output 07/04/17 07/05/17 19:00 07:00 Intake Total 30 ml Output Total 130 ml Balance -100 ml Other 30 ml Output Urine Total 130 ml CXR: left lung better ET-Tube: 8.0 ET Position: 21 Labs: Laboratory Tests Test 07/03/17 11:00 07/03/17 14:51 07/04/17 05:20 Arterial Blood pH 7.384 (7.350-7.450) 7.433 (7.350-7.450) Arterial Blood Partial Pressure CO2 50.1 mmHg (35.0-45.0) H 35.6 mmHg (35.0-45.0) Arterial Blood Partial Pressure O2 51.7 mmHg (75.0-100.0) L 63.5 mmHg (75.0-100.0) L Arterial Blood HCO3 29.2 mmol/L (22.0-26.0) H 23.2 mmol/L (22.0-26.0) Arterial Blood Oxygen Saturation 86.7 % (92.0-98.0) L 93.1 % (92.0-98.0) Arterial Blood Base Excess 3.4 -0.7 Anthony Test Positive Positive White Blood Count 10.2 K/UL (4.8-10.8) Red Blood Count 3.10 M/UL (4.70-6.10) L Hemoglobin 10.8 G/DL (14.2-18.0) L Hematocrit 31.2 % (42.0-52.0) L Mean Corpuscular Volume 101 FL (80-99) H Mean Corpuscular Hemoglobin 34.8 PG (27.0-31.0) H Mean Corpuscular Hemoglobin Concent 34.6 G/DL (32.0-36.0) Red Cell Distribution Width 13.0 % (11.6-14.8) Platelet Count 341 K/UL (150-450) Mean Platelet Volume 5.8 FL (6.5-10.1) L Neutrophils (%) (Auto) 59.8 % (45.0-75.0) Lymphocytes (%) (Auto) 30.2 % (20.0-45.0) Monocytes (%) (Auto) 6.6 % (1.0-10.0) Eosinophils (%) (Auto) 2.6 % (0.0-3.0) Basophils (%) (Auto) 0.8 % (0.0-2.0) Sodium Level 137 MMOL/L (136-145) Potassium Level 5.1 MMOL/L (3.5-5.1) Chloride Level 104 MMOL/L (98-107) Carbon Dioxide Level 23 MMOL/L (21-32) Anion Gap 10 mmol/L (5-15) Blood Urea Nitrogen 16 mg/dL (7-18) Creatinine 1.2 MG/DL (0.55-1.30) Estimat Glomerular Filtration Rate > 60 mL/min (>60) Glucose Level 107 MG/DL (74-106) H Calcium Level 9.0 MG/DL (8.5-10.1) Total Bilirubin 0.5 MG/DL (0.2-1.0) Aspartate Amino Transf (AST/SGOT) 34 U/L (15-37) Alanine Aminotransferase (ALT/SGPT) 9 U/L (12-78) L Alkaline Phosphatase 65 U/L (46-116) Pro-B-Type Natriuretic Peptide 378 pg/mL (0-125) H Total Protein 6.8 G/DL (6.4-8.2) Albumin 2.4 G/DL (3.4-5.0) L Globulin 4.4 g/dL Albumin/Globulin Ratio 0.5 (1.0-2.7) L GWEN MARTE Jul 04, 2017 10:24
--- NOTE | 2017-07-04 12:40 | Diagnostic Imaging Report ---
Indication: Dyspnea Comparison: 07/03/17 A single view chest radiograph was obtained. Findings: Exam limited by rotation. Endotracheal tube appears to be in good position. Pacemaker again noted. NG tube in good position. Left basilar parenchymal opacification noted. Pleural effusion may be present as well. The findings are unchanged. Impression: Left basilar pneumonia versus atelectasis and possible pleural effusion. 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
--- NOTE | 2017-07-04 12:40 | Diagnostic Imaging Report ---
Indication: Dyspnea Comparison: 07/03/17 A single view chest radiograph was obtained. Findings: Exam limited by rotation. Endotracheal tube appears to be in good position. Pacemaker again noted. NG tube in good position. Left basilar parenchymal opacification noted. Pleural effusion may be present as well. The findings are unchanged. Impression: Left basilar pneumonia versus atelectasis and possible pleural effusion. 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
--- NOTE | 2017-07-04 12:40 | Diagnostic Imaging Report ---
Indication: Dyspnea Comparison: 07/03/17 A single view chest radiograph was obtained. Findings: Exam limited by rotation. Endotracheal tube appears to be in good position. Pacemaker again noted. NG tube in good position. Left basilar parenchymal opacification noted. Pleural effusion may be present as well. The findings are unchanged. Impression: Left basilar pneumonia versus atelectasis and possible pleural effusion. 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
[2017-07-04] MEDS: Vancomycin 750mg/NS 250ml IVPB SCH (13:27)
[2017-07-04] MEDS: DOPamine 400mg/250ml 250 ML IV SCH (15:00)
--- NOTE | 2017-07-04 15:28 | General Progress Note ---
Assessment/Plan Problem List: (1) Respiratory failure ICD Codes: J96.90 - Respiratory failure, unspecified, unspecified whether with hypoxia or hypercapnia SNOMED: 682287104 (2) Sepsis ICD Codes: A41.9 - Sepsis, unspecified organism SNOMED: 51588587 (3) UTI (urinary tract infection) ICD Codes: N39.0 - Urinary tract infection, site not specified SNOMED: 13888017 (4) Schizophrenia ICD Codes: F20.9 - Schizophrenia, unspecified SNOMED: 45933733 (5) History of pacemaker ICD Codes: Z95.0 - Presence of cardiac pacemaker SNOMED: 436603424 (6) Limited mobility ICD Codes: Z74.09 - Other reduced mobility SNOMED: 3304282 Status: stable, progressing Assessment/Plan o2 pul tx ot pt diet abx cbc bmp am Subjective Constitutional: Reports: weakness Allergies: Coded Allergies: CHLORPROMAZINE (Verified Allergy, Unknown, 06/23/17) ERYTHROMYCIN BASE (Verified Allergy, Unknown, 06/23/17) Uncoded Allergies: TAPE (Allergy, Unknown, 06/23/17) All Systems: reviewed and negative except above Subjective intubated sedated in icu Objective Last 24 Hour Vital Signs Date Time Temp Pulse Resp B/P (MAP) Pulse Ox O2 Delivery O2 Flow Rate FiO2 07/04/17 15:07 60 16 50 07/04/17 15:00 60 16 87/55 100 Mechanical Ventilator 50 07/04/17 14:00 60 16 90/55 100 Mechanical Ventilator 50 07/04/17 13:00 62 16 96/58 100 Mechanical Ventilator 50 07/04/17 12:59 60 16 50 07/04/17 12:00 61 07/04/17 12:00 50 07/04/17 12:00 98.1 60 18 93/58 100 Mechanical Ventilator 50 07/04/17 11:05 88 17 50 07/04/17 11:00 62 16 108/64 100 Mechanical Ventilator 50 07/04/17 10:00 60 16 83/52 100 Mechanical Ventilator 50 07/04/17 09:01 60 16 50 07/04/17 09:00 65 16 124/62 100 Mechanical Ventilator 50 07/04/17 08:00 50 07/04/17 08:00 98.5 62 18 99/60 98 Mechanical Ventilator 50 07/04/17 08:00 62 07/04/17 07:29 83 16 50 07/04/17 07:00 70 16 99/61 99 Mechanical Ventilator 50 07/04/17 06:00 60 16 96/49 99 Mechanical Ventilator 50 07/04/17 05:14 61 16 50 07/04/17 05:00 62 16 98/57 99 Mechanical Ventilator 50 07/04/17 04:00 50 07/04/17 04:00 60 07/04/17 04:00 98.1 74 16 132/77 99 Mechanical Ventilator 50 07/04/17 03:19 71 16 50 07/04/17 03:00 70 16 105/60 100 Mechanical Ventilator 50 07/04/17 02:00 74 16 135/65 99 Mechanical Ventilator 50 07/04/17 01:20 72 16 50 07/04/17 01:00 73 16 92/56 99 Mechanical Ventilator 50 07/04/17 00:00 50 07/04/17 00:00 87 07/04/17 00:00 99.4 75 16 104/61 99 Mechanical Ventilator 50 07/03/17 23:00 83 16 107/63 98 Mechanical Ventilator 50 07/03/17 22:55 76 16 50 07/03/17 22:00 83 16 114/64 98 Mechanical Ventilator 50 07/03/17 21:00 84 16 100/62 98 Mechanical Ventilator 55 07/03/17 20:43 90 16 50 07/03/17 20:00 81 07/03/17 20:00 50 07/03/17 20:00 99.8 81 16 97/62 98 Mechanical Ventilator 55 07/03/17 19:08 79 16 50 07/03/17 18:00 85 18 99/54 100 Mechanical Ventilator 55 07/03/17 17:00 95 20 112/51 100 Mechanical Ventilator 55 07/03/17 16:33 76 16 50 07/03/17 16:00 102 07/03/17 16:00 98.1 108 22 107/62 98 Mechanical Ventilator 55 07/03/17 16:00 150/51 Intake and Output 07/04/17 07/05/17 19:00 07:00 Intake Total 667.5 ml Output Total 380 ml Balance 287.5 ml IV Total 607.5 ml Other 60 ml Output Urine Total 380 ml Laboratory Tests 07/04/17 05:20: White Blood Count 10.2, Red Blood Count 3.10L, Hemoglobin 10.8L, Hematocrit 31.2L, Mean Corpuscular Volume 101H, Mean Corpuscular Hemoglobin 34.8H, Mean Corpuscular Hemoglobin Concent 34.6, Red Cell Distribution Width 13.0, Platelet Count 341, Mean Platelet Volume 5.8L, Neutrophils (%) (Auto) 59.8, Lymphocytes ( %) (Auto) 30.2, Monocytes (%) (Auto) 6.6, Eosinophils (%) (Auto) 2.6, Basophils (%) (Auto) 0.8, Sodium Level 137, Potassium Level 5.1, Chloride Level 104, Carbon Dioxide Level 23, Anion Gap 10, Blood Urea Nitrogen 16, Creatinine 1.2, Estimat Glomerular Filtration Rate > 60, Glucose Level 107H, Calcium Level 9.0, Total Bilirubin 0.5, Aspartate Amino Transf (AST/SGOT) 34, Alanine Aminotransferase (ALT/SGPT) 9L, Alkaline Phosphatase 65, Pro-B-Type Natriuretic Peptide 378H, Total Protein 6.8, Albumin 2.4L, Globulin 4.4, Albumin/Globulin Ratio 0.5L Height (Feet): 5 Height (Inches): 11.00 Weight (Pounds): 120 General Appearance: lethargic EENT: normal ENT inspection Neck: normal alignment Cardiovascular: normal peripheral pulses, normal rate, regular rhythm Respiratory/Chest: chest wall non-tender, lungs clear, normal breath sounds Abdomen: normal bowel sounds, non tender, soft Extremities: normal inspection Edema: no edema noted Arm (L), no edema noted Arm (R), no edema noted Leg (L), no edema noted Leg (R), no edema noted Pedal (L), no edema noted Pedal (R), no edema noted Generalized Neurologic: motor weakness Skin: normal pigmentation, warm/dry QUINTON HUMPHRIES Jul 04, 2017 15:28
--- NOTE | 2017-07-04 15:28 | General Progress Note ---
Assessment/Plan Problem List: (1) Respiratory failure ICD Codes: J96.90 - Respiratory failure, unspecified, unspecified whether with hypoxia or hypercapnia SNOMED: 187757120 (2) Sepsis ICD Codes: A41.9 - Sepsis, unspecified organism SNOMED: 87342742 (3) UTI (urinary tract infection) ICD Codes: N39.0 - Urinary tract infection, site not specified SNOMED: 00040701 (4) Schizophrenia ICD Codes: F20.9 - Schizophrenia, unspecified SNOMED: 00861636 (5) History of pacemaker ICD Codes: Z95.0 - Presence of cardiac pacemaker SNOMED: 443096167 (6) Limited mobility ICD Codes: Z74.09 - Other reduced mobility SNOMED: 3613540 Status: stable, progressing Assessment/Plan o2 pul tx ot pt diet abx cbc bmp am Subjective Constitutional: Reports: weakness Allergies: Coded Allergies: CHLORPROMAZINE (Verified Allergy, Unknown, 06/23/17) ERYTHROMYCIN BASE (Verified Allergy, Unknown, 06/23/17) Uncoded Allergies: TAPE (Allergy, Unknown, 06/23/17) All Systems: reviewed and negative except above Subjective intubated sedated in icu Objective Last 24 Hour Vital Signs Date Time Temp Pulse Resp B/P (MAP) Pulse Ox O2 Delivery O2 Flow Rate FiO2 07/04/17 15:07 60 16 50 07/04/17 15:00 60 16 87/55 100 Mechanical Ventilator 50 07/04/17 14:00 60 16 90/55 100 Mechanical Ventilator 50 07/04/17 13:00 62 16 96/58 100 Mechanical Ventilator 50 07/04/17 12:59 60 16 50 07/04/17 12:00 61 07/04/17 12:00 50 07/04/17 12:00 98.1 60 18 93/58 100 Mechanical Ventilator 50 07/04/17 11:05 88 17 50 07/04/17 11:00 62 16 108/64 100 Mechanical Ventilator 50 07/04/17 10:00 60 16 83/52 100 Mechanical Ventilator 50 07/04/17 09:01 60 16 50 07/04/17 09:00 65 16 124/62 100 Mechanical Ventilator 50 07/04/17 08:00 50 07/04/17 08:00 98.5 62 18 99/60 98 Mechanical Ventilator 50 07/04/17 08:00 62 07/04/17 07:29 83 16 50 07/04/17 07:00 70 16 99/61 99 Mechanical Ventilator 50 07/04/17 06:00 60 16 96/49 99 Mechanical Ventilator 50 07/04/17 05:14 61 16 50 07/04/17 05:00 62 16 98/57 99 Mechanical Ventilator 50 07/04/17 04:00 50 07/04/17 04:00 60 07/04/17 04:00 98.1 74 16 132/77 99 Mechanical Ventilator 50 07/04/17 03:19 71 16 50 07/04/17 03:00 70 16 105/60 100 Mechanical Ventilator 50 07/04/17 02:00 74 16 135/65 99 Mechanical Ventilator 50 07/04/17 01:20 72 16 50 07/04/17 01:00 73 16 92/56 99 Mechanical Ventilator 50 07/04/17 00:00 50 07/04/17 00:00 87 07/04/17 00:00 99.4 75 16 104/61 99 Mechanical Ventilator 50 07/03/17 23:00 83 16 107/63 98 Mechanical Ventilator 50 07/03/17 22:55 76 16 50 07/03/17 22:00 83 16 114/64 98 Mechanical Ventilator 50 07/03/17 21:00 84 16 100/62 98 Mechanical Ventilator 55 07/03/17 20:43 90 16 50 07/03/17 20:00 81 07/03/17 20:00 50 07/03/17 20:00 99.8 81 16 97/62 98 Mechanical Ventilator 55 07/03/17 19:08 79 16 50 07/03/17 18:00 85 18 99/54 100 Mechanical Ventilator 55 07/03/17 17:00 95 20 112/51 100 Mechanical Ventilator 55 07/03/17 16:33 76 16 50 07/03/17 16:00 102 07/03/17 16:00 98.1 108 22 107/62 98 Mechanical Ventilator 55 07/03/17 16:00 150/51 Intake and Output 07/04/17 07/05/17 19:00 07:00 Intake Total 667.5 ml Output Total 380 ml Balance 287.5 ml IV Total 607.5 ml Other 60 ml Output Urine Total 380 ml Laboratory Tests 07/04/17 05:20: White Blood Count 10.2, Red Blood Count 3.10L, Hemoglobin 10.8L, Hematocrit 31.2L, Mean Corpuscular Volume 101H, Mean Corpuscular Hemoglobin 34.8H, Mean Corpuscular Hemoglobin Concent 34.6, Red Cell Distribution Width 13.0, Platelet Count 341, Mean Platelet Volume 5.8L, Neutrophils (%) (Auto) 59.8, Lymphocytes ( %) (Auto) 30.2, Monocytes (%) (Auto) 6.6, Eosinophils (%) (Auto) 2.6, Basophils (%) (Auto) 0.8, Sodium Level 137, Potassium Level 5.1, Chloride Level 104, Carbon Dioxide Level 23, Anion Gap 10, Blood Urea Nitrogen 16, Creatinine 1.2, Estimat Glomerular Filtration Rate > 60, Glucose Level 107H, Calcium Level 9.0, Total Bilirubin 0.5, Aspartate Amino Transf (AST/SGOT) 34, Alanine Aminotransferase (ALT/SGPT) 9L, Alkaline Phosphatase 65, Pro-B-Type Natriuretic Peptide 378H, Total Protein 6.8, Albumin 2.4L, Globulin 4.4, Albumin/Globulin Ratio 0.5L Height (Feet): 5 Height (Inches): 11.00 Weight (Pounds): 120 General Appearance: lethargic EENT: normal ENT inspection Neck: normal alignment Cardiovascular: normal peripheral pulses, normal rate, regular rhythm Respiratory/Chest: chest wall non-tender, lungs clear, normal breath sounds Abdomen: normal bowel sounds, non tender, soft Extremities: normal inspection Edema: no edema noted Arm (L), no edema noted Arm (R), no edema noted Leg (L), no edema noted Leg (R), no edema noted Pedal (L), no edema noted Pedal (R), no edema noted Generalized Neurologic: motor weakness Skin: normal pigmentation, warm/dry QUINTON HUMPHRIES Jul 04, 2017 15:28
--- NOTE | 2017-07-04 15:28 | General Progress Note ---
Assessment/Plan Problem List: (1) Respiratory failure ICD Codes: J96.90 - Respiratory failure, unspecified, unspecified whether with hypoxia or hypercapnia SNOMED: 515569495 (2) Sepsis ICD Codes: A41.9 - Sepsis, unspecified organism SNOMED: 80165266 (3) UTI (urinary tract infection) ICD Codes: N39.0 - Urinary tract infection, site not specified SNOMED: 33800095 (4) Schizophrenia ICD Codes: F20.9 - Schizophrenia, unspecified SNOMED: 54593678 (5) History of pacemaker ICD Codes: Z95.0 - Presence of cardiac pacemaker SNOMED: 099707614 (6) Limited mobility ICD Codes: Z74.09 - Other reduced mobility SNOMED: 4534683 Status: stable, progressing Assessment/Plan o2 pul tx ot pt diet abx cbc bmp am Subjective Constitutional: Reports: weakness Allergies: Coded Allergies: CHLORPROMAZINE (Verified Allergy, Unknown, 06/23/17) ERYTHROMYCIN BASE (Verified Allergy, Unknown, 06/23/17) Uncoded Allergies: TAPE (Allergy, Unknown, 06/23/17) All Systems: reviewed and negative except above Subjective intubated sedated in icu Objective Last 24 Hour Vital Signs Date Time Temp Pulse Resp B/P (MAP) Pulse Ox O2 Delivery O2 Flow Rate FiO2 07/04/17 15:07 60 16 50 07/04/17 15:00 60 16 87/55 100 Mechanical Ventilator 50 07/04/17 14:00 60 16 90/55 100 Mechanical Ventilator 50 07/04/17 13:00 62 16 96/58 100 Mechanical Ventilator 50 07/04/17 12:59 60 16 50 07/04/17 12:00 61 07/04/17 12:00 50 07/04/17 12:00 98.1 60 18 93/58 100 Mechanical Ventilator 50 07/04/17 11:05 88 17 50 07/04/17 11:00 62 16 108/64 100 Mechanical Ventilator 50 07/04/17 10:00 60 16 83/52 100 Mechanical Ventilator 50 07/04/17 09:01 60 16 50 07/04/17 09:00 65 16 124/62 100 Mechanical Ventilator 50 07/04/17 08:00 50 07/04/17 08:00 98.5 62 18 99/60 98 Mechanical Ventilator 50 07/04/17 08:00 62 07/04/17 07:29 83 16 50 07/04/17 07:00 70 16 99/61 99 Mechanical Ventilator 50 07/04/17 06:00 60 16 96/49 99 Mechanical Ventilator 50 07/04/17 05:14 61 16 50 07/04/17 05:00 62 16 98/57 99 Mechanical Ventilator 50 07/04/17 04:00 50 07/04/17 04:00 60 07/04/17 04:00 98.1 74 16 132/77 99 Mechanical Ventilator 50 07/04/17 03:19 71 16 50 07/04/17 03:00 70 16 105/60 100 Mechanical Ventilator 50 07/04/17 02:00 74 16 135/65 99 Mechanical Ventilator 50 07/04/17 01:20 72 16 50 07/04/17 01:00 73 16 92/56 99 Mechanical Ventilator 50 07/04/17 00:00 50 07/04/17 00:00 87 07/04/17 00:00 99.4 75 16 104/61 99 Mechanical Ventilator 50 07/03/17 23:00 83 16 107/63 98 Mechanical Ventilator 50 07/03/17 22:55 76 16 50 07/03/17 22:00 83 16 114/64 98 Mechanical Ventilator 50 07/03/17 21:00 84 16 100/62 98 Mechanical Ventilator 55 07/03/17 20:43 90 16 50 07/03/17 20:00 81 07/03/17 20:00 50 07/03/17 20:00 99.8 81 16 97/62 98 Mechanical Ventilator 55 07/03/17 19:08 79 16 50 07/03/17 18:00 85 18 99/54 100 Mechanical Ventilator 55 07/03/17 17:00 95 20 112/51 100 Mechanical Ventilator 55 07/03/17 16:33 76 16 50 07/03/17 16:00 102 07/03/17 16:00 98.1 108 22 107/62 98 Mechanical Ventilator 55 07/03/17 16:00 150/51 Intake and Output 07/04/17 07/05/17 19:00 07:00 Intake Total 667.5 ml Output Total 380 ml Balance 287.5 ml IV Total 607.5 ml Other 60 ml Output Urine Total 380 ml Laboratory Tests 07/04/17 05:20: White Blood Count 10.2, Red Blood Count 3.10L, Hemoglobin 10.8L, Hematocrit 31.2L, Mean Corpuscular Volume 101H, Mean Corpuscular Hemoglobin 34.8H, Mean Corpuscular Hemoglobin Concent 34.6, Red Cell Distribution Width 13.0, Platelet Count 341, Mean Platelet Volume 5.8L, Neutrophils (%) (Auto) 59.8, Lymphocytes ( %) (Auto) 30.2, Monocytes (%) (Auto) 6.6, Eosinophils (%) (Auto) 2.6, Basophils (%) (Auto) 0.8, Sodium Level 137, Potassium Level 5.1, Chloride Level 104, Carbon Dioxide Level 23, Anion Gap 10, Blood Urea Nitrogen 16, Creatinine 1.2, Estimat Glomerular Filtration Rate > 60, Glucose Level 107H, Calcium Level 9.0, Total Bilirubin 0.5, Aspartate Amino Transf (AST/SGOT) 34, Alanine Aminotransferase (ALT/SGPT) 9L, Alkaline Phosphatase 65, Pro-B-Type Natriuretic Peptide 378H, Total Protein 6.8, Albumin 2.4L, Globulin 4.4, Albumin/Globulin Ratio 0.5L Height (Feet): 5 Height (Inches): 11.00 Weight (Pounds): 120 General Appearance: lethargic EENT: normal ENT inspection Neck: normal alignment Cardiovascular: normal peripheral pulses, normal rate, regular rhythm Respiratory/Chest: chest wall non-tender, lungs clear, normal breath sounds Abdomen: normal bowel sounds, non tender, soft Extremities: normal inspection Edema: no edema noted Arm (L), no edema noted Arm (R), no edema noted Leg (L), no edema noted Leg (R), no edema noted Pedal (L), no edema noted Pedal (R), no edema noted Generalized Neurologic: motor weakness Skin: normal pigmentation, warm/dry QUINTON HUMPHRIES Jul 04, 2017 15:28
[2017-07-04] MEDS ORDERED: Morphine Sulfate 4mg/ml Inj IVP PRN (16:15)
[2017-07-04] MEDS ORDERED: D5 1/2NS 1000ml IV ONE (16:19)
--- NOTE | 2017-07-04 21:36 | Cardiology Progress Note ---
Assessment/Plan Assessment/Plan 1. Sinus tachycardia, resolved. 2. Hypotension, due to sepsis, normal LV systolic function with LVEF at 60-65%. 3. Acute respiratory failure due to left lung collapse, got intubated on mechanical ventilator, s/p bronchoscopy. 4. Dual chamber pacemaker implantation, currently intrinsic atrial and ventricular activity. 5. HCAP, on IV ABx. Subjective Subjective s/p bronchoscopy Intubated. Sinus rhythm at 60. Objective Last 24 Hour Vital Signs Date Time Temp Pulse Resp B/P (MAP) Pulse Ox O2 Delivery O2 Flow Rate FiO2 07/04/17 21:23 63 16 50 07/04/17 19:04 60 16 50 07/04/17 18:00 60 18 98/50 98 Mechanical Ventilator 50 07/04/17 18:00 50 07/04/17 17:03 60 16 50 07/04/17 17:00 60 18 96/55 98 Mechanical Ventilator 50 07/04/17 16:00 60 07/04/17 16:00 98.5 62 16 96/52 100 Mechanical Ventilator 50 07/04/17 15:07 60 16 50 07/04/17 15:00 60 16 87/55 100 Mechanical Ventilator 50 07/04/17 14:00 60 16 90/55 100 Mechanical Ventilator 50 07/04/17 13:00 62 16 96/58 100 Mechanical Ventilator 50 07/04/17 12:59 60 16 50 07/04/17 12:00 61 07/04/17 12:00 50 07/04/17 12:00 98.1 60 18 93/58 100 Mechanical Ventilator 50 07/04/17 11:05 88 17 50 07/04/17 11:00 62 16 108/64 100 Mechanical Ventilator 50 07/04/17 10:00 60 16 83/52 100 Mechanical Ventilator 50 07/04/17 09:01 60 16 50 07/04/17 09:00 65 16 124/62 100 Mechanical Ventilator 50 07/04/17 08:00 50 07/04/17 08:00 98.5 62 18 99/60 98 Mechanical Ventilator 50 07/04/17 08:00 62 07/04/17 07:29 83 16 50 07/04/17 07:00 70 16 99/61 99 Mechanical Ventilator 50 07/04/17 06:00 60 16 96/49 99 Mechanical Ventilator 50 07/04/17 05:14 61 16 50 07/04/17 05:00 62 16 98/57 99 Mechanical Ventilator 50 07/04/17 04:00 50 07/04/17 04:00 60 07/04/17 04:00 98.1 74 16 132/77 99 Mechanical Ventilator 50 07/04/17 03:19 71 16 50 07/04/17 03:00 70 16 105/60 100 Mechanical Ventilator 50 07/04/17 02:00 74 16 135/65 99 Mechanical Ventilator 50 07/04/17 01:20 72 16 50 07/04/17 01:00 73 16 92/56 99 Mechanical Ventilator 50 07/04/17 00:00 50 07/04/17 00:00 87 07/04/17 00:00 99.4 75 16 104/61 99 Mechanical Ventilator 50 07/03/17 23:00 83 16 107/63 98 Mechanical Ventilator 50 07/03/17 22:55 76 16 50 07/03/17 22:00 83 16 114/64 98 Mechanical Ventilator 50 Intake and Output 07/04/17 07/05/17 19:00 07:00 Intake Total 1462.5 ml Output Total 610 ml Balance 852.5 ml IV Total 1342.5 ml Tube Feeding 30 ml Other 90 ml Output Urine Total 610 ml 2D Echo: LVEF 60-65%, mild TR with RVSP at 33 mmHg Laboratory Tests Test 07/04/17 05:20 White Blood Count 10.2 K/UL (4.8-10.8) Red Blood Count 3.10 M/UL (4.70-6.10) L Hemoglobin 10.8 G/DL (14.2-18.0) L Hematocrit 31.2 % (42.0-52.0) L Mean Corpuscular Volume 101 FL (80-99) H Mean Corpuscular Hemoglobin 34.8 PG (27.0-31.0) H Mean Corpuscular Hemoglobin Concent 34.6 G/DL (32.0-36.0) Red Cell Distribution Width 13.0 % (11.6-14.8) Platelet Count 341 K/UL (150-450) Mean Platelet Volume 5.8 FL (6.5-10.1) L Neutrophils (%) (Auto) 59.8 % (45.0-75.0) Lymphocytes (%) (Auto) 30.2 % (20.0-45.0) Monocytes (%) (Auto) 6.6 % (1.0-10.0) Eosinophils (%) (Auto) 2.6 % (0.0-3.0) Basophils (%) (Auto) 0.8 % (0.0-2.0) Sodium Level 137 MMOL/L (136-145) Potassium Level 5.1 MMOL/L (3.5-5.1) Chloride Level 104 MMOL/L (98-107) Carbon Dioxide Level 23 MMOL/L (21-32) Anion Gap 10 mmol/L (5-15) Blood Urea Nitrogen 16 mg/dL (7-18) Creatinine 1.2 MG/DL (0.55-1.30) Estimat Glomerular Filtration Rate > 60 mL/min (>60) Glucose Level 107 MG/DL (74-106) H Calcium Level 9.0 MG/DL (8.5-10.1) Total Bilirubin 0.5 MG/DL (0.2-1.0) Aspartate Amino Transf (AST/SGOT) 34 U/L (15-37) Alanine Aminotransferase (ALT/SGPT) 9 U/L (12-78) L Alkaline Phosphatase 65 U/L (46-116) Pro-B-Type Natriuretic Peptide 378 pg/mL (0-125) H Total Protein 6.8 G/DL (6.4-8.2) Albumin 2.4 G/DL (3.4-5.0) L Globulin 4.4 g/dL Albumin/Globulin Ratio 0.5 (1.0-2.7) L Objective HEENT: Atraumatic and normocephalic. ENT, pupils are equal, round, and reactive to light and accommodation. Pale conjunctiva, intubated. NECK: JVP cannot be assessed. No carotid bruit. Carotid upstrokes 2+ bilaterally. LUNGS: Diminished BS left lung. CVS: Normal S1, S2. no murmurs, gallops or rubs. PMI is at fourth intercostal space in the midclavicular line. ABDOMEN: Soft, nontender, and nondistended. No hepatosplenomegaly. Positive bowel sounds. EXTREMITIES: No evidence of edema, clubbing, or cyanosis. CALLUM BARON Jul 04, 2017 21:36
--- NOTE | 2017-07-04 22:36 | General Progress Note ---
Assessment/Plan Status: progressing, unchanged Assessment/Plan Dementia schizophrenia encephalopathy -zyprexa -ativan Subjective Neurologic/Psychiatric: Reports: anxiety, depressed, emotional problems Allergies: Coded Allergies: CHLORPROMAZINE (Verified Allergy, Unknown, 06/23/17) ERYTHROMYCIN BASE (Verified Allergy, Unknown, 06/23/17) Uncoded Allergies: TAPE (Allergy, Unknown, 06/23/17) Subjective nad calm and awake no agitation Objective Last 24 Hour Vital Signs Date Time Temp Pulse Resp B/P (MAP) Pulse Ox O2 Delivery O2 Flow Rate FiO2 07/04/17 21:23 63 16 50 07/04/17 19:04 60 16 50 07/04/17 18:00 60 18 98/50 98 Mechanical Ventilator 50 07/04/17 18:00 50 07/04/17 17:03 60 16 50 07/04/17 17:00 60 18 96/55 98 Mechanical Ventilator 50 07/04/17 16:00 60 07/04/17 16:00 98.5 62 16 96/52 100 Mechanical Ventilator 50 07/04/17 15:07 60 16 50 07/04/17 15:00 60 16 87/55 100 Mechanical Ventilator 50 07/04/17 14:00 60 16 90/55 100 Mechanical Ventilator 50 07/04/17 13:00 62 16 96/58 100 Mechanical Ventilator 50 07/04/17 12:59 60 16 50 07/04/17 12:00 61 07/04/17 12:00 50 07/04/17 12:00 98.1 60 18 93/58 100 Mechanical Ventilator 50 07/04/17 11:05 88 17 50 07/04/17 11:00 62 16 108/64 100 Mechanical Ventilator 50 07/04/17 10:00 60 16 83/52 100 Mechanical Ventilator 50 07/04/17 09:01 60 16 50 07/04/17 09:00 65 16 124/62 100 Mechanical Ventilator 50 07/04/17 08:00 50 07/04/17 08:00 98.5 62 18 99/60 98 Mechanical Ventilator 50 07/04/17 08:00 62 07/04/17 07:29 83 16 50 07/04/17 07:00 70 16 99/61 99 Mechanical Ventilator 50 07/04/17 06:00 60 16 96/49 99 Mechanical Ventilator 50 07/04/17 05:14 61 16 50 07/04/17 05:00 62 16 98/57 99 Mechanical Ventilator 50 07/04/17 04:00 50 07/04/17 04:00 60 07/04/17 04:00 98.1 74 16 132/77 99 Mechanical Ventilator 50 07/04/17 03:19 71 16 50 07/04/17 03:00 70 16 105/60 100 Mechanical Ventilator 50 07/04/17 02:00 74 16 135/65 99 Mechanical Ventilator 50 07/04/17 01:20 72 16 50 07/04/17 01:00 73 16 92/56 99 Mechanical Ventilator 50 07/04/17 00:00 50 07/04/17 00:00 87 07/04/17 00:00 99.4 75 16 104/61 99 Mechanical Ventilator 50 07/03/17 23:00 83 16 107/63 98 Mechanical Ventilator 50 07/03/17 22:55 76 16 50 Intake and Output 07/04/17 07/05/17 19:00 07:00 Intake Total 1462.5 ml Output Total 610 ml Balance 852.5 ml IV Total 1342.5 ml Tube Feeding 30 ml Other 90 ml Output Urine Total 610 ml Laboratory Tests 07/04/17 05:20: White Blood Count 10.2, Red Blood Count 3.10L, Hemoglobin 10.8L, Hematocrit 31.2L, Mean Corpuscular Volume 101H, Mean Corpuscular Hemoglobin 34.8H, Mean Corpuscular Hemoglobin Concent 34.6, Red Cell Distribution Width 13.0, Platelet Count 341, Mean Platelet Volume 5.8L, Neutrophils (%) (Auto) 59.8, Lymphocytes ( %) (Auto) 30.2, Monocytes (%) (Auto) 6.6, Eosinophils (%) (Auto) 2.6, Basophils (%) (Auto) 0.8, Sodium Level 137, Potassium Level 5.1, Chloride Level 104, Carbon Dioxide Level 23, Anion Gap 10, Blood Urea Nitrogen 16, Creatinine 1.2, Estimat Glomerular Filtration Rate > 60, Glucose Level 107H, Calcium Level 9.0, Total Bilirubin 0.5, Aspartate Amino Transf (AST/SGOT) 34, Alanine Aminotransferase (ALT/SGPT) 9L, Alkaline Phosphatase 65, Pro-B-Type Natriuretic Peptide 378H, Total Protein 6.8, Albumin 2.4L, Globulin 4.4, Albumin/Globulin Ratio 0.5L Height (Feet): 5 Height (Inches): 11.00 Weight (Pounds): 120 General Appearance: no apparent distress Hill Hare M.D. Jul 04, 2017 22:36
[2017-07-05] VITALS (24 sets, daily range): BP systolic 82–125; BP diastolic 48–78
[2017-07-05 05:32] LABS: BASOPHILS % (AUTO) 0.6 % (0.0-2.0); EOSINOPHILS % (AUTO) 3.1 % (0.0-3.0); HEMATOCRIT 29.4 % (42.0-52.0); HEMOGLOBIN 10.2 G/DL (14.2-18.0); MEAN CORPUSCULAR VOLUME 100 FL (80-99); MONOCYTES % (AUTO) 8.3 % (1.0-10.0); PLATELET COUNT 286 K/UL (150-450); RED BLOOD COUNT 2.94 M/UL (4.70-6.10); RED CELL DISTRIBUTION WIDTH 12.7 % (11.6-14.8); WHITE BLOOD COUNT 10.5 K/UL (4.8-10.8)
[2017-07-05 05:54] LABS: ALANINE AMINOTRANSFERASE 9 U/L (12-78); ALBUMIN 2.4 G/DL (3.4-5.0); ALBUMIN/GLOBULIN RATIO 0.6 (1.0-2.7); ALKALINE PHOSPHATASE 66 U/L (46-116); ANION GAP 12 mmol/L (5-15); ASPARTATE AMINO TRANSFERASE 13 U/L (15-37); BILIRUBIN,TOTAL 0.4 MG/DL (0.2-1.0); BLOOD UREA NITROGEN 12 mg/dL (7-18); CALCIUM 8.7 MG/DL (8.5-10.1); CARBON DIOXIDE 23 MMOL/L (21-32); CHLORIDE 106 MMOL/L (98-107); CREATININE 1.2 MG/DL (0.55-1.30); PHOSPHORUS 3.4 MG/DL (2.5-4.9); SODIUM 142 MMOL/L (136-145)
[2017-07-05 06:00] LABS: POTASSIUM 2.6 MMOL/L (3.5-5.1)
[2017-07-05] MEDS: D5 1/2NS 1,000 ML IV SCH ×2 (06:09→17:45)
[2017-07-05] MEDS: Piperacillin/Tazobactam 3.375 GM in NS 110 ML IVPB SCH ×2 (06:10→15:25)
[2017-07-05] MEDS: Vancomycin 1250mg/D5W 250ml 250 ML IVPB SCH (08:16)
[2017-07-05] MEDS: Pantoprazole Inj IV SCH (08:31)
[2017-07-05] MEDS: Solu-MEDROL 125mg Inj IV SCH (08:32)
[2017-07-05] MEDS: Docusate 100mg cap ORAL SCH (08:32)
[2017-07-05] MEDS: carBAMazepine 200mg tab ORAL SCH ×4 (08:32→21:19)
[2017-07-05] MEDS: Theophylline ER 100mg ORAL SCH ×2 (08:33→21:18)
[2017-07-05] MEDS: Heparin 5000 units/ml inj SUBQ SCH ×2 (08:40→21:21)
--- NOTE | 2017-07-05 10:25 | Pulmonolgy Critical Care Note ---
Critical Care - Asmt/Plan Problems: (1) Acute encephalopathy (2) Acute respiratory failure (3) Collapse of left lung (4) UTI (urinary tract infection) (5) Schizophrenia (6) History of pacemaker (7) Fever Respiratory: monitor respiratory rate Cardiac: continue pressors, continue to monitor HR/BP Renal: F/U I&O, keep IV fluid Infectious Disease: check cultures Gastrointestinal: continue feedings/current rate Endocrine: monitor blood sugar, check TSH, continue sliding scale insulin Hematologic: monitor H/H, transfuse if hgb<8.5 Neurologic: PRN Ativan, keep patient comfortable Prophylaxis: Protonix, Heparin Notes Reviewed: inspector balance wheel motion, cardio, renal, ID Discussed with: nurses, consultants, embedded case managertraining and development manager - Objective Last 24 Hour Vital Signs Date Time Temp Pulse Resp B/P (MAP) Pulse Ox O2 Delivery O2 Flow Rate FiO2 07/05/17 10:00 88 17 109/49 100 Mechanical Ventilator 50 07/05/17 09:21 70 17 40 07/05/17 09:00 64 17 104/56 100 Mechanical Ventilator 50 07/05/17 08:00 98.1 64 16 109/61 100 Mechanical Ventilator 50 07/05/17 08:00 50 07/05/17 08:00 63 07/05/17 07:00 72 17 99/78 100 Mechanical Ventilator 50 07/05/17 06:44 60 16 50 07/05/17 06:00 60 17 112/60 100 Mechanical Ventilator 50 07/05/17 05:15 60 16 50 07/05/17 05:00 60 17 107/62 100 Mechanical Ventilator 50 07/05/17 04:00 50 07/05/17 04:00 98.4 60 17 110/51 100 Mechanical Ventilator 50 07/05/17 04:00 60 07/05/17 03:12 60 16 50 07/05/17 03:00 60 16 111/51 100 Mechanical Ventilator 50 07/05/17 02:00 60 16 82/50 100 Mechanical Ventilator 50 07/05/17 01:29 68 16 50 07/05/17 01:00 65 16 113/61 100 Mechanical Ventilator 50 07/05/17 00:00 50 07/05/17 00:00 98.0 60 15 89/48 100 Mechanical Ventilator 50 07/05/17 00:00 60 07/04/17 23:19 60 16 50 07/04/17 23:00 60 15 104/56 100 Mechanical Ventilator 50 07/04/17 22:00 64 16 118/60 100 Mechanical Ventilator 50 07/04/17 21:23 63 16 50 07/04/17 21:00 68 17 119/62 100 Mechanical Ventilator 50 07/04/17 20:00 60 07/04/17 20:00 50 07/04/17 20:00 98.2 64 16 115/66 100 Mechanical Ventilator 50 07/04/17 19:04 60 16 50 07/04/17 18:00 60 18 98/50 98 Mechanical Ventilator 50 07/04/17 18:00 50 07/04/17 17:03 60 16 50 07/04/17 17:00 60 18 96/55 98 Mechanical Ventilator 50 07/04/17 16:00 60 07/04/17 16:00 98.5 62 16 96/52 100 Mechanical Ventilator 50 07/04/17 15:07 60 16 50 07/04/17 15:00 60 16 87/55 100 Mechanical Ventilator 50 07/04/17 14:00 60 16 90/55 100 Mechanical Ventilator 50 07/04/17 13:00 62 16 96/58 100 Mechanical Ventilator 50 07/04/17 12:59 60 16 50 07/04/17 12:00 61 07/04/17 12:00 50 07/04/17 12:00 98.1 60 18 93/58 100 Mechanical Ventilator 50 07/04/17 11:05 88 17 50 07/04/17 11:00 62 16 108/64 100 Mechanical Ventilator 50 Status: awake Condition: critical, grave HEENT: atraumatic Lungs: clear, chest wall tender Heart: HR/BP unstable Abdomen: non-tender Extremities: no C/C/E Decubiti: location Micro: Microbiology Date/Time Source Procedure Growth Status 07/04/17 14:00 Sputum Gram Stain Pending Resulted 07/04/17 14:00 Sputum Sputum Culture - Preliminary Resulted Critical Care - Subjective ROS Limited/Unobtainable: Yes ICU Day: 4 Intubation Day: 4 EKG Rhythm: Sinus Rhythm FI02: 50 Vent Support Breath Rate: 16 Vent Support Mode: AC Vent Tidal Volume: 600 Sputum Amount: Moderate PIP: 24 Tube Feeding Amount: 35 I&O: Intake and Output 07/05/17 07/06/17 19:00 07:00 Intake Total 592.5 ml Output Total 225 ml Balance 367.5 ml Free Water 30 ml IV Total 357.5 ml Tube Feeding 105 ml Other 100 ml Output Urine Total 225 ml CXR: collapse of left lung ET-Tube: 8.0 ET Position: 21 Labs: Laboratory Tests Test 07/05/17 05:00 07/05/17 06:44 White Blood Count 10.5 K/UL (4.8-10.8) Red Blood Count 2.94 M/UL (4.70-6.10) L Hemoglobin 10.2 G/DL (14.2-18.0) L Hematocrit 29.4 % (42.0-52.0) L Mean Corpuscular Volume 100 FL (80-99) H Mean Corpuscular Hemoglobin 34.5 PG (27.0-31.0) H Mean Corpuscular Hemoglobin Concent 34.6 G/DL (32.0-36.0) Red Cell Distribution Width 12.7 % (11.6-14.8) Platelet Count 286 K/UL (150-450) Mean Platelet Volume 5.8 FL (6.5-10.1) L Neutrophils (%) (Auto) 57.0 % (45.0-75.0) Lymphocytes (%) (Auto) 31.0 % (20.0-45.0) Monocytes (%) (Auto) 8.3 % (1.0-10.0) Eosinophils (%) (Auto) 3.1 % (0.0-3.0) H Basophils (%) (Auto) 0.6 % (0.0-2.0) Sodium Level 142 MMOL/L (136-145) Potassium Level 2.6 MMOL/L (3.5-5.1) *L Chloride Level 106 MMOL/L (98-107) Carbon Dioxide Level 23 MMOL/L (21-32) Anion Gap 12 mmol/L (5-15) Blood Urea Nitrogen 12 mg/dL (7-18) Creatinine 1.2 MG/DL (0.55-1.30) Estimat Glomerular Filtration Rate > 60 mL/min (>60) Glucose Level 112 MG/DL (74-106) H Calcium Level 8.7 MG/DL (8.5-10.1) Phosphorus Level 3.4 MG/DL (2.5-4.9) Magnesium Level 1.8 MG/DL (1.8-2.4) Total Bilirubin 0.4 MG/DL (0.2-1.0) Aspartate Amino Transf (AST/SGOT) 13 U/L (15-37) L Alanine Aminotransferase (ALT/SGPT) 9 U/L (12-78) L Alkaline Phosphatase 66 U/L (46-116) Total Protein 6.4 G/DL (6.4-8.2) Albumin 2.4 G/DL (3.4-5.0) L Globulin 4.0 g/dL Albumin/Globulin Ratio 0.6 (1.0-2.7) L Arterial Blood pH 7.458 (7.350-7.450) Arterial Blood Partial Pressure CO2 35.1 mmHg (35.0-45.0) Arterial Blood Partial Pressure O2 159.0 mmHg (75.0-100.0) H Arterial Blood HCO3 24.3 mmol/L (22.0-26.0) Arterial Blood Oxygen Saturation 98.6 % (92.0-98.0) H Arterial Blood Base Excess 0.7 Anthony Test Positive GWEN MARTE Jul 05, 2017 10:25
[2017-07-05] MEDS ORDERED: KCl 10% 40mEq/30ml liquid NG ONE ×2 (10:30→12:15)
--- NOTE | 2017-07-05 11:34 | Nephrology Progress Note ---
Assessment/Plan Assessment 1. hypokalemia 2. Elevated bicarbonate is in response to severe respiratory acidosis. 3. Hypertension. 4. History of chronic obstructive pulmonary disease. Plan plan to replace k check mg level continue iv antibiotic monitoring renal function monitoring electrolyte replace as need avoid any NSAID Subjective Constitutional: Reports: no symptoms HEENT: Reports: no symptoms Genitourinary: Reports: no symptoms Neurologic/Psychiatric: Reports: no symptoms Subjective intubated in ICU Objective Objective Last 24 Hour Vital Signs Date Time Temp Pulse Resp B/P (MAP) Pulse Ox O2 Delivery O2 Flow Rate FiO2 07/05/17 11:16 79 16 40 07/05/17 11:00 75 16 125/61 100 Mechanical Ventilator 40 07/05/17 10:00 88 17 109/49 100 Mechanical Ventilator 40 07/05/17 09:21 70 17 40 07/05/17 09:00 64 17 104/56 100 Mechanical Ventilator 50 07/05/17 08:00 98.1 64 16 109/61 100 Mechanical Ventilator 50 07/05/17 08:00 50 07/05/17 08:00 63 07/05/17 07:00 72 17 99/78 100 Mechanical Ventilator 50 07/05/17 06:44 60 16 50 07/05/17 06:00 60 17 112/60 100 Mechanical Ventilator 50 07/05/17 05:15 60 16 50 07/05/17 05:00 60 17 107/62 100 Mechanical Ventilator 50 07/05/17 04:00 50 07/05/17 04:00 98.4 60 17 110/51 100 Mechanical Ventilator 50 07/05/17 04:00 60 07/05/17 03:12 60 16 50 07/05/17 03:00 60 16 111/51 100 Mechanical Ventilator 50 07/05/17 02:00 60 16 82/50 100 Mechanical Ventilator 50 07/05/17 01:29 68 16 50 07/05/17 01:00 65 16 113/61 100 Mechanical Ventilator 50 07/05/17 00:00 50 07/05/17 00:00 98.0 60 15 89/48 100 Mechanical Ventilator 50 07/05/17 00:00 60 07/04/17 23:19 60 16 50 07/04/17 23:00 60 15 104/56 100 Mechanical Ventilator 50 07/04/17 22:00 64 16 118/60 100 Mechanical Ventilator 50 07/04/17 21:23 63 16 50 07/04/17 21:00 68 17 119/62 100 Mechanical Ventilator 50 07/04/17 20:00 60 07/04/17 20:00 50 07/04/17 20:00 98.2 64 16 115/66 100 Mechanical Ventilator 50 07/04/17 19:04 60 16 50 07/04/17 18:00 60 18 98/50 98 Mechanical Ventilator 50 07/04/17 18:00 50 07/04/17 17:03 60 16 50 07/04/17 17:00 60 18 96/55 98 Mechanical Ventilator 50 07/04/17 16:00 60 07/04/17 16:00 98.5 62 16 96/52 100 Mechanical Ventilator 50 07/04/17 15:07 60 16 50 07/04/17 15:00 60 16 87/55 100 Mechanical Ventilator 50 07/04/17 14:00 60 16 90/55 100 Mechanical Ventilator 50 07/04/17 13:00 62 16 96/58 100 Mechanical Ventilator 50 07/04/17 12:59 60 16 50 07/04/17 12:00 61 07/04/17 12:00 50 07/04/17 12:00 98.1 60 18 93/58 100 Mechanical Ventilator 50 Intake and Output 07/05/17 07/06/17 19:00 07:00 Intake Total 657.5 ml Output Total 275 ml Balance 382.5 ml Free Water 30 ml IV Total 357.5 ml Tube Feeding 140 ml Other 130 ml Output Urine Total 275 ml Laboratory Tests 07/05/17 05:00: White Blood Count 10.5, Red Blood Count 2.94L, Hemoglobin 10.2L, Hematocrit 29.4L, Mean Corpuscular Volume 100H, Mean Corpuscular Hemoglobin 34.5H, Mean Corpuscular Hemoglobin Concent 34.6, Red Cell Distribution Width 12.7, Platelet Count 286, Mean Platelet Volume 5.8L, Neutrophils (%) (Auto) 57.0, Lymphocytes ( %) (Auto) 31.0, Monocytes (%) (Auto) 8.3, Eosinophils (%) (Auto) 3.1H, Basophils (%) (Auto) 0.6, Sodium Level 142, Potassium Level 2.6*L, Chloride Level 106, Carbon Dioxide Level 23, Anion Gap 12, Blood Urea Nitrogen 12, Creatinine 1.2, Estimat Glomerular Filtration Rate > 60, Glucose Level 112H, Calcium Level 8.7, Phosphorus Level 3.4, Magnesium Level 1.8, Total Bilirubin 0.4, Aspartate Amino Transf (AST/SGOT) 13L, Alanine Aminotransferase (ALT/SGPT) 9L, Alkaline Phosphatase 66, Total Protein 6.4, Albumin 2.4L, Globulin 4.0, Albumin/Globulin Ratio 0.6L 07/05/17 06:44: Arterial Blood pH 7.458H, Arterial Blood Partial Pressure CO2 35.1, Arterial Blood Partial Pressure O2 159.0H, Arterial Blood HCO3 24.3, Arterial Blood Oxygen Saturation 98.6H, Arterial Blood Base Excess 0.7, Anthony Test Positive Height (Feet): 5 Height (Inches): 11.00 Weight (Pounds): 118 Objective HEAD AND NECK: No JVP. No LAD. No thyromegaly. Extraocular movements intact. Pupils are reactive to light and accommodation. LUNGS: Clear to auscultation. CARDIAC: Regular rate and rhythm. S1 and S2. No murmur. No rub. ABDOMEN: Soft, nontender, and nondistended. EXTREMITIES: No edema. No clubbing. No cyanosis. NEUROLOGIC: The patient opened up his eyes, not following verbal commands. RANCHO SYKES Jul 05, 2017 11:34
--- NOTE | 2017-07-05 11:49 | Diagnostic Imaging Report ---
Indication: DYSPNEA Technique: One view of the chest Comparison: 07/04/2017 Findings: There is progressive opacification left hemithorax, with only minimal residual aerated lung seen in the upper left hemithorax. Right lung and pleural space remain clear. Endotracheal tube remains in stable satisfactory position. Nasogastric tube is again demonstrated, tip in the gastric fundus but proximal port likely at the level of the gastroesophageal junction. Left chest pacemaker again demonstrated Impression: Increase left lung volume loss and opacification, consistent with progressive atelectasis Somewhat high position of nasogastric tube. Advancement recommended Other stable findings as described
[2017-07-05] MEDS: Vancomycin 750mg/NS 250ml IVPB SCH (13:05)
--- NOTE | 2017-07-05 13:31 | General Progress Note ---
Assessment/Plan Problem List: (1) Respiratory failure ICD Codes: J96.90 - Respiratory failure, unspecified, unspecified whether with hypoxia or hypercapnia SNOMED: 770538005 (2) Sepsis ICD Codes: A41.9 - Sepsis, unspecified organism SNOMED: 83405478 (3) UTI (urinary tract infection) ICD Codes: N39.0 - Urinary tract infection, site not specified SNOMED: 49200630 (4) Schizophrenia ICD Codes: F20.9 - Schizophrenia, unspecified SNOMED: 01280033 (5) History of pacemaker ICD Codes: Z95.0 - Presence of cardiac pacemaker SNOMED: 104858609 (6) Limited mobility ICD Codes: Z74.09 - Other reduced mobility SNOMED: 6324076 Status: unchanged Assessment/Plan o2 pul tx ot pt diet abx cbc bmp am ltach eval Subjective Constitutional: Reports: weakness Allergies: Coded Allergies: CHLORPROMAZINE (Verified Allergy, Unknown, 06/23/17) ERYTHROMYCIN BASE (Verified Allergy, Unknown, 06/23/17) Uncoded Allergies: TAPE (Allergy, Unknown, 06/23/17) All Systems: reviewed and negative except above Subjective intubated sedated in icu Objective Last 24 Hour Vital Signs Date Time Temp Pulse Resp B/P (MAP) Pulse Ox O2 Delivery O2 Flow Rate FiO2 07/05/17 13:00 69 16 112/62 99 Mechanical Ventilator 40 07/05/17 12:51 73 16 40 07/05/17 12:00 40 07/05/17 12:00 70 07/05/17 12:00 98.0 76 17 109/60 100 Mechanical Ventilator 40 07/05/17 11:16 79 16 40 07/05/17 11:00 75 16 125/61 100 Mechanical Ventilator 40 07/05/17 10:00 88 17 109/49 100 Mechanical Ventilator 40 07/05/17 09:21 70 17 40 07/05/17 09:00 64 17 104/56 100 Mechanical Ventilator 50 07/05/17 08:00 98.1 64 16 109/61 100 Mechanical Ventilator 50 07/05/17 08:00 50 07/05/17 08:00 63 07/05/17 07:00 72 17 99/78 100 Mechanical Ventilator 50 07/05/17 06:44 60 16 50 07/05/17 06:00 60 17 112/60 100 Mechanical Ventilator 50 07/05/17 05:15 60 16 50 07/05/17 05:00 60 17 107/62 100 Mechanical Ventilator 50 07/05/17 04:00 50 07/05/17 04:00 98.4 60 17 110/51 100 Mechanical Ventilator 50 07/05/17 04:00 60 07/05/17 03:12 60 16 50 07/05/17 03:00 60 16 111/51 100 Mechanical Ventilator 50 07/05/17 02:00 60 16 82/50 100 Mechanical Ventilator 50 07/05/17 01:29 68 16 50 07/05/17 01:00 65 16 113/61 100 Mechanical Ventilator 50 07/05/17 00:00 50 07/05/17 00:00 98.0 60 15 89/48 100 Mechanical Ventilator 50 07/05/17 00:00 60 07/04/17 23:19 60 16 50 07/04/17 23:00 60 15 104/56 100 Mechanical Ventilator 50 07/04/17 22:00 64 16 118/60 100 Mechanical Ventilator 50 07/04/17 21:23 63 16 50 07/04/17 21:00 68 17 119/62 100 Mechanical Ventilator 50 07/04/17 20:00 60 07/04/17 20:00 50 07/04/17 20:00 98.2 64 16 115/66 100 Mechanical Ventilator 50 07/04/17 19:04 60 16 50 07/04/17 18:00 60 18 98/50 98 Mechanical Ventilator 50 07/04/17 18:00 50 07/04/17 17:03 60 16 50 07/04/17 17:00 60 18 96/55 98 Mechanical Ventilator 50 07/04/17 16:00 60 07/04/17 16:00 98.5 62 16 96/52 100 Mechanical Ventilator 50 07/04/17 15:07 60 16 50 07/04/17 15:00 60 16 87/55 100 Mechanical Ventilator 50 07/04/17 14:00 60 16 90/55 100 Mechanical Ventilator 50 Intake and Output 07/05/17 07/06/17 19:00 07:00 Intake Total 1017.5 ml Output Total 425 ml Balance 592.5 ml Free Water 30 ml IV Total 682.5 ml Tube Feeding 175 ml Other 130 ml Output Urine Total 425 ml Laboratory Tests 07/05/17 05:00: White Blood Count 10.5, Red Blood Count 2.94L, Hemoglobin 10.2L, Hematocrit 29.4L, Mean Corpuscular Volume 100H, Mean Corpuscular Hemoglobin 34.5H, Mean Corpuscular Hemoglobin Concent 34.6, Red Cell Distribution Width 12.7, Platelet Count 286, Mean Platelet Volume 5.8L, Neutrophils (%) (Auto) 57.0, Lymphocytes ( %) (Auto) 31.0, Monocytes (%) (Auto) 8.3, Eosinophils (%) (Auto) 3.1H, Basophils (%) (Auto) 0.6, Sodium Level 142, Potassium Level 2.6*L, Chloride Level 106, Carbon Dioxide Level 23, Anion Gap 12, Blood Urea Nitrogen 12, Creatinine 1.2, Estimat Glomerular Filtration Rate > 60, Glucose Level 112H, Calcium Level 8.7, Phosphorus Level 3.4, Magnesium Level 1.8, Total Bilirubin 0.4, Aspartate Amino Transf (AST/SGOT) 13L, Alanine Aminotransferase (ALT/SGPT) 9L, Alkaline Phosphatase 66, Total Protein 6.4, Albumin 2.4L, Globulin 4.0, Albumin/Globulin Ratio 0.6L 07/05/17 06:44: Arterial Blood pH 7.458H, Arterial Blood Partial Pressure CO2 35.1, Arterial Blood Partial Pressure O2 159.0H, Arterial Blood HCO3 24.3, Arterial Blood Oxygen Saturation 98.6H, Arterial Blood Base Excess 0.7, Anthony Test Positive Height (Feet): 5 Height (Inches): 11.00 Weight (Pounds): 118 General Appearance: lethargic EENT: normal ENT inspection Neck: normal alignment Cardiovascular: normal peripheral pulses, normal rate, regular rhythm Respiratory/Chest: chest wall non-tender, lungs clear, decreased breath sounds Abdomen: normal bowel sounds, non tender, soft Extremities: normal inspection Edema: no edema noted Arm (L), no edema noted Arm (R), no edema noted Leg (L), no edema noted Leg (R), no edema noted Pedal (L), no edema noted Pedal (R), no edema noted Generalized Neurologic: motor weakness Skin: normal pigmentation, warm/dry QUINTON HUMPHRIES Jul 05, 2017 13:31
--- NOTE | 2017-07-05 13:31 | General Progress Note ---
Assessment/Plan Problem List: (1) Respiratory failure ICD Codes: J96.90 - Respiratory failure, unspecified, unspecified whether with hypoxia or hypercapnia SNOMED: 988687934 (2) Sepsis ICD Codes: A41.9 - Sepsis, unspecified organism SNOMED: 60026678 (3) UTI (urinary tract infection) ICD Codes: N39.0 - Urinary tract infection, site not specified SNOMED: 87254808 (4) Schizophrenia ICD Codes: F20.9 - Schizophrenia, unspecified SNOMED: 26689803 (5) History of pacemaker ICD Codes: Z95.0 - Presence of cardiac pacemaker SNOMED: 880517099 (6) Limited mobility ICD Codes: Z74.09 - Other reduced mobility SNOMED: 4553353 Status: unchanged Assessment/Plan o2 pul tx ot pt diet abx cbc bmp am ltach eval Subjective Constitutional: Reports: weakness Allergies: Coded Allergies: CHLORPROMAZINE (Verified Allergy, Unknown, 06/23/17) ERYTHROMYCIN BASE (Verified Allergy, Unknown, 06/23/17) Uncoded Allergies: TAPE (Allergy, Unknown, 06/23/17) All Systems: reviewed and negative except above Subjective intubated sedated in icu Objective Last 24 Hour Vital Signs Date Time Temp Pulse Resp B/P (MAP) Pulse Ox O2 Delivery O2 Flow Rate FiO2 07/05/17 13:00 69 16 112/62 99 Mechanical Ventilator 40 07/05/17 12:51 73 16 40 07/05/17 12:00 40 07/05/17 12:00 70 07/05/17 12:00 98.0 76 17 109/60 100 Mechanical Ventilator 40 07/05/17 11:16 79 16 40 07/05/17 11:00 75 16 125/61 100 Mechanical Ventilator 40 07/05/17 10:00 88 17 109/49 100 Mechanical Ventilator 40 07/05/17 09:21 70 17 40 07/05/17 09:00 64 17 104/56 100 Mechanical Ventilator 50 07/05/17 08:00 98.1 64 16 109/61 100 Mechanical Ventilator 50 07/05/17 08:00 50 07/05/17 08:00 63 07/05/17 07:00 72 17 99/78 100 Mechanical Ventilator 50 07/05/17 06:44 60 16 50 07/05/17 06:00 60 17 112/60 100 Mechanical Ventilator 50 07/05/17 05:15 60 16 50 07/05/17 05:00 60 17 107/62 100 Mechanical Ventilator 50 07/05/17 04:00 50 07/05/17 04:00 98.4 60 17 110/51 100 Mechanical Ventilator 50 07/05/17 04:00 60 07/05/17 03:12 60 16 50 07/05/17 03:00 60 16 111/51 100 Mechanical Ventilator 50 07/05/17 02:00 60 16 82/50 100 Mechanical Ventilator 50 07/05/17 01:29 68 16 50 07/05/17 01:00 65 16 113/61 100 Mechanical Ventilator 50 07/05/17 00:00 50 07/05/17 00:00 98.0 60 15 89/48 100 Mechanical Ventilator 50 07/05/17 00:00 60 07/04/17 23:19 60 16 50 07/04/17 23:00 60 15 104/56 100 Mechanical Ventilator 50 07/04/17 22:00 64 16 118/60 100 Mechanical Ventilator 50 07/04/17 21:23 63 16 50 07/04/17 21:00 68 17 119/62 100 Mechanical Ventilator 50 07/04/17 20:00 60 07/04/17 20:00 50 07/04/17 20:00 98.2 64 16 115/66 100 Mechanical Ventilator 50 07/04/17 19:04 60 16 50 07/04/17 18:00 60 18 98/50 98 Mechanical Ventilator 50 07/04/17 18:00 50 07/04/17 17:03 60 16 50 07/04/17 17:00 60 18 96/55 98 Mechanical Ventilator 50 07/04/17 16:00 60 07/04/17 16:00 98.5 62 16 96/52 100 Mechanical Ventilator 50 07/04/17 15:07 60 16 50 07/04/17 15:00 60 16 87/55 100 Mechanical Ventilator 50 07/04/17 14:00 60 16 90/55 100 Mechanical Ventilator 50 Intake and Output 07/05/17 07/06/17 19:00 07:00 Intake Total 1017.5 ml Output Total 425 ml Balance 592.5 ml Free Water 30 ml IV Total 682.5 ml Tube Feeding 175 ml Other 130 ml Output Urine Total 425 ml Laboratory Tests 07/05/17 05:00: White Blood Count 10.5, Red Blood Count 2.94L, Hemoglobin 10.2L, Hematocrit 29.4L, Mean Corpuscular Volume 100H, Mean Corpuscular Hemoglobin 34.5H, Mean Corpuscular Hemoglobin Concent 34.6, Red Cell Distribution Width 12.7, Platelet Count 286, Mean Platelet Volume 5.8L, Neutrophils (%) (Auto) 57.0, Lymphocytes ( %) (Auto) 31.0, Monocytes (%) (Auto) 8.3, Eosinophils (%) (Auto) 3.1H, Basophils (%) (Auto) 0.6, Sodium Level 142, Potassium Level 2.6*L, Chloride Level 106, Carbon Dioxide Level 23, Anion Gap 12, Blood Urea Nitrogen 12, Creatinine 1.2, Estimat Glomerular Filtration Rate > 60, Glucose Level 112H, Calcium Level 8.7, Phosphorus Level 3.4, Magnesium Level 1.8, Total Bilirubin 0.4, Aspartate Amino Transf (AST/SGOT) 13L, Alanine Aminotransferase (ALT/SGPT) 9L, Alkaline Phosphatase 66, Total Protein 6.4, Albumin 2.4L, Globulin 4.0, Albumin/Globulin Ratio 0.6L 07/05/17 06:44: Arterial Blood pH 7.458H, Arterial Blood Partial Pressure CO2 35.1, Arterial Blood Partial Pressure O2 159.0H, Arterial Blood HCO3 24.3, Arterial Blood Oxygen Saturation 98.6H, Arterial Blood Base Excess 0.7, Anthony Test Positive Height (Feet): 5 Height (Inches): 11.00 Weight (Pounds): 118 General Appearance: lethargic EENT: normal ENT inspection Neck: normal alignment Cardiovascular: normal peripheral pulses, normal rate, regular rhythm Respiratory/Chest: chest wall non-tender, lungs clear, decreased breath sounds Abdomen: normal bowel sounds, non tender, soft Extremities: normal inspection Edema: no edema noted Arm (L), no edema noted Arm (R), no edema noted Leg (L), no edema noted Leg (R), no edema noted Pedal (L), no edema noted Pedal (R), no edema noted Generalized Neurologic: motor weakness Skin: normal pigmentation, warm/dry QUINTON HUMPHRIES Jul 05, 2017 13:31
--- NOTE | 2017-07-05 13:31 | General Progress Note ---
Assessment/Plan Problem List: (1) Respiratory failure ICD Codes: J96.90 - Respiratory failure, unspecified, unspecified whether with hypoxia or hypercapnia SNOMED: 145411224 (2) Sepsis ICD Codes: A41.9 - Sepsis, unspecified organism SNOMED: 12726892 (3) UTI (urinary tract infection) ICD Codes: N39.0 - Urinary tract infection, site not specified SNOMED: 74685428 (4) Schizophrenia ICD Codes: F20.9 - Schizophrenia, unspecified SNOMED: 78036378 (5) History of pacemaker ICD Codes: Z95.0 - Presence of cardiac pacemaker SNOMED: 438531548 (6) Limited mobility ICD Codes: Z74.09 - Other reduced mobility SNOMED: 8575661 Status: unchanged Assessment/Plan o2 pul tx ot pt diet abx cbc bmp am ltach eval Subjective Constitutional: Reports: weakness Allergies: Coded Allergies: CHLORPROMAZINE (Verified Allergy, Unknown, 06/23/17) ERYTHROMYCIN BASE (Verified Allergy, Unknown, 06/23/17) Uncoded Allergies: TAPE (Allergy, Unknown, 06/23/17) All Systems: reviewed and negative except above Subjective intubated sedated in icu Objective Last 24 Hour Vital Signs Date Time Temp Pulse Resp B/P (MAP) Pulse Ox O2 Delivery O2 Flow Rate FiO2 07/05/17 13:00 69 16 112/62 99 Mechanical Ventilator 40 07/05/17 12:51 73 16 40 07/05/17 12:00 40 07/05/17 12:00 70 07/05/17 12:00 98.0 76 17 109/60 100 Mechanical Ventilator 40 07/05/17 11:16 79 16 40 07/05/17 11:00 75 16 125/61 100 Mechanical Ventilator 40 07/05/17 10:00 88 17 109/49 100 Mechanical Ventilator 40 07/05/17 09:21 70 17 40 07/05/17 09:00 64 17 104/56 100 Mechanical Ventilator 50 07/05/17 08:00 98.1 64 16 109/61 100 Mechanical Ventilator 50 07/05/17 08:00 50 07/05/17 08:00 63 07/05/17 07:00 72 17 99/78 100 Mechanical Ventilator 50 07/05/17 06:44 60 16 50 07/05/17 06:00 60 17 112/60 100 Mechanical Ventilator 50 07/05/17 05:15 60 16 50 07/05/17 05:00 60 17 107/62 100 Mechanical Ventilator 50 07/05/17 04:00 50 07/05/17 04:00 98.4 60 17 110/51 100 Mechanical Ventilator 50 07/05/17 04:00 60 07/05/17 03:12 60 16 50 07/05/17 03:00 60 16 111/51 100 Mechanical Ventilator 50 07/05/17 02:00 60 16 82/50 100 Mechanical Ventilator 50 07/05/17 01:29 68 16 50 07/05/17 01:00 65 16 113/61 100 Mechanical Ventilator 50 07/05/17 00:00 50 07/05/17 00:00 98.0 60 15 89/48 100 Mechanical Ventilator 50 07/05/17 00:00 60 07/04/17 23:19 60 16 50 07/04/17 23:00 60 15 104/56 100 Mechanical Ventilator 50 07/04/17 22:00 64 16 118/60 100 Mechanical Ventilator 50 07/04/17 21:23 63 16 50 07/04/17 21:00 68 17 119/62 100 Mechanical Ventilator 50 07/04/17 20:00 60 07/04/17 20:00 50 07/04/17 20:00 98.2 64 16 115/66 100 Mechanical Ventilator 50 07/04/17 19:04 60 16 50 07/04/17 18:00 60 18 98/50 98 Mechanical Ventilator 50 07/04/17 18:00 50 07/04/17 17:03 60 16 50 07/04/17 17:00 60 18 96/55 98 Mechanical Ventilator 50 07/04/17 16:00 60 07/04/17 16:00 98.5 62 16 96/52 100 Mechanical Ventilator 50 07/04/17 15:07 60 16 50 07/04/17 15:00 60 16 87/55 100 Mechanical Ventilator 50 07/04/17 14:00 60 16 90/55 100 Mechanical Ventilator 50 Intake and Output 07/05/17 07/06/17 19:00 07:00 Intake Total 1017.5 ml Output Total 425 ml Balance 592.5 ml Free Water 30 ml IV Total 682.5 ml Tube Feeding 175 ml Other 130 ml Output Urine Total 425 ml Laboratory Tests 07/05/17 05:00: White Blood Count 10.5, Red Blood Count 2.94L, Hemoglobin 10.2L, Hematocrit 29.4L, Mean Corpuscular Volume 100H, Mean Corpuscular Hemoglobin 34.5H, Mean Corpuscular Hemoglobin Concent 34.6, Red Cell Distribution Width 12.7, Platelet Count 286, Mean Platelet Volume 5.8L, Neutrophils (%) (Auto) 57.0, Lymphocytes ( %) (Auto) 31.0, Monocytes (%) (Auto) 8.3, Eosinophils (%) (Auto) 3.1H, Basophils (%) (Auto) 0.6, Sodium Level 142, Potassium Level 2.6*L, Chloride Level 106, Carbon Dioxide Level 23, Anion Gap 12, Blood Urea Nitrogen 12, Creatinine 1.2, Estimat Glomerular Filtration Rate > 60, Glucose Level 112H, Calcium Level 8.7, Phosphorus Level 3.4, Magnesium Level 1.8, Total Bilirubin 0.4, Aspartate Amino Transf (AST/SGOT) 13L, Alanine Aminotransferase (ALT/SGPT) 9L, Alkaline Phosphatase 66, Total Protein 6.4, Albumin 2.4L, Globulin 4.0, Albumin/Globulin Ratio 0.6L 07/05/17 06:44: Arterial Blood pH 7.458H, Arterial Blood Partial Pressure CO2 35.1, Arterial Blood Partial Pressure O2 159.0H, Arterial Blood HCO3 24.3, Arterial Blood Oxygen Saturation 98.6H, Arterial Blood Base Excess 0.7, Anthony Test Positive Height (Feet): 5 Height (Inches): 11.00 Weight (Pounds): 118 General Appearance: lethargic EENT: normal ENT inspection Neck: normal alignment Cardiovascular: normal peripheral pulses, normal rate, regular rhythm Respiratory/Chest: chest wall non-tender, lungs clear, decreased breath sounds Abdomen: normal bowel sounds, non tender, soft Extremities: normal inspection Edema: no edema noted Arm (L), no edema noted Arm (R), no edema noted Leg (L), no edema noted Leg (R), no edema noted Pedal (L), no edema noted Pedal (R), no edema noted Generalized Neurologic: motor weakness Skin: normal pigmentation, warm/dry QUINTON HUMPHRIES Jul 05, 2017 13:31
[2017-07-05] MEDS: DOPamine 400mg/250ml 250 ML IV SCH (15:00)
--- NOTE | 2017-07-05 17:32 | Diagnostic Imaging Report ---
Indication: Status post nasogastric tube placement Technique: Limited supine view of the abdomen Comparison: none Findings: There is a nasogastric tube in place, tip projecting at the level gastric fundus/body junction, proximal port below the gastric esophageal junction. Extensive pleural and parenchymal disease is seen in the included left lower chest. There are pacemaker leads. An inferior vena cava filter is noted. The bowel gas pattern is unremarkable Impression: Satisfactory nasogastric intubation Other findings as noted
[2017-07-05] MEDS: LORazepam Inj 2mg/ml 1ml IV PRN (17:45)
[2017-07-05] MEDS ORDERED: Tubing IV Secondary IV ONE (21:37)
[2017-07-05] MEDS ORDERED: D5 1/2NS 1000ml IV ONE (21:37)
[2017-07-05] MEDS: Zosyn 3.375gm/50ml Premix 50 ML IVPB SCH (22:22)
--- NOTE | 2017-07-05 23:37 | Infectious Diseases Prog Note ---
Assessment/Plan Problems: (1) Sepsis Assessment & Plan: Due to pneumonia probably. Resolved. (2) Acute respiratory failure Assessment & Plan: In the setting of lung collapse. Remains very tenuous. (3) HCAP (healthcare-associated pneumonia) Assessment & Plan: Follow-up SCx. Continue with vancomycin IV and Zosyn. (4) Collapse of left lung (5) Pyuria Assessment & Plan: UCx noted. On zosyn already. Subjective Allergies: Coded Allergies: CHLORPROMAZINE (Verified Allergy, Unknown, 06/23/17) ERYTHROMYCIN BASE (Verified Allergy, Unknown, 06/23/17) Uncoded Allergies: TAPE (Allergy, Unknown, 06/23/17) Objective Vital Signs Last 24 Hour Vital Signs Date Time Temp Pulse Resp B/P (MAP) Pulse Ox O2 Delivery O2 Flow Rate FiO2 07/05/17 22:30 60 16 40 07/05/17 20:39 78 16 40 07/05/17 19:09 79 16 40 07/05/17 19:00 66 16 97/58 100 Mechanical Ventilator 40 07/05/17 18:00 64 16 101/58 100 Mechanical Ventilator 40 07/05/17 17:00 94 16 113/58 100 Mechanical Ventilator 40 07/05/17 16:43 83 16 40 07/05/17 16:00 73 07/05/17 16:00 40 07/05/17 16:00 98.1 69 16 114/69 100 Mechanical Ventilator 40 07/05/17 15:07 82 18 40 07/05/17 15:00 77 16 107/52 100 Mechanical Ventilator 40 07/05/17 14:00 77 16 104/65 100 Mechanical Ventilator 40 07/05/17 13:00 69 16 112/62 99 Mechanical Ventilator 40 07/05/17 12:51 73 16 40 07/05/17 12:00 40 07/05/17 12:00 70 07/05/17 12:00 98.0 76 17 109/60 100 Mechanical Ventilator 40 07/05/17 11:16 79 16 40 07/05/17 11:00 75 16 125/61 100 Mechanical Ventilator 40 07/05/17 10:00 88 17 109/49 100 Mechanical Ventilator 40 07/05/17 09:21 70 17 40 07/05/17 09:00 64 17 104/56 100 Mechanical Ventilator 50 07/05/17 08:00 98.1 64 16 109/61 100 Mechanical Ventilator 50 07/05/17 08:00 50 07/05/17 08:00 63 07/05/17 07:00 72 17 99/78 100 Mechanical Ventilator 50 07/05/17 06:44 60 16 50 07/05/17 06:00 60 17 112/60 100 Mechanical Ventilator 50 07/05/17 05:15 60 16 50 07/05/17 05:00 60 17 107/62 100 Mechanical Ventilator 50 07/05/17 04:00 50 07/05/17 04:00 98.4 60 17 110/51 100 Mechanical Ventilator 50 07/05/17 04:00 60 07/05/17 03:12 60 16 50 07/05/17 03:00 60 16 111/51 100 Mechanical Ventilator 50 07/05/17 02:00 60 16 82/50 100 Mechanical Ventilator 50 07/05/17 01:29 68 16 50 07/05/17 01:00 65 16 113/61 100 Mechanical Ventilator 50 07/05/17 00:00 50 07/05/17 00:00 98.0 60 15 89/48 100 Mechanical Ventilator 50 07/05/17 00:00 60 Height (Feet): 5 Height (Inches): 11.00 Weight (Pounds): 118 Microbiology Date/Time Source Procedure Growth Status 07/04/17 14:00 Sputum Gram Stain - Final Resulted 07/04/17 14:00 Sputum Sputum Culture - Preliminary Resulted Laboratory Tests Test 07/05/17 05:00 07/05/17 06:44 White Blood Count 10.5 K/UL (4.8-10.8) Red Blood Count 2.94 M/UL (4.70-6.10) L Hemoglobin 10.2 G/DL (14.2-18.0) L Hematocrit 29.4 % (42.0-52.0) L Mean Corpuscular Volume 100 FL (80-99) H Mean Corpuscular Hemoglobin 34.5 PG (27.0-31.0) H Mean Corpuscular Hemoglobin Concent 34.6 G/DL (32.0-36.0) Red Cell Distribution Width 12.7 % (11.6-14.8) Platelet Count 286 K/UL (150-450) Mean Platelet Volume 5.8 FL (6.5-10.1) L Neutrophils (%) (Auto) 57.0 % (45.0-75.0) Lymphocytes (%) (Auto) 31.0 % (20.0-45.0) Monocytes (%) (Auto) 8.3 % (1.0-10.0) Eosinophils (%) (Auto) 3.1 % (0.0-3.0) H Basophils (%) (Auto) 0.6 % (0.0-2.0) Sodium Level 142 MMOL/L (136-145) Potassium Level 2.6 MMOL/L (3.5-5.1) *L Chloride Level 106 MMOL/L (98-107) Carbon Dioxide Level 23 MMOL/L (21-32) Anion Gap 12 mmol/L (5-15) Blood Urea Nitrogen 12 mg/dL (7-18) Creatinine 1.2 MG/DL (0.55-1.30) Estimat Glomerular Filtration Rate > 60 mL/min (>60) Glucose Level 112 MG/DL (74-106) H Calcium Level 8.7 MG/DL (8.5-10.1) Phosphorus Level 3.4 MG/DL (2.5-4.9) Magnesium Level 1.8 MG/DL (1.8-2.4) Total Bilirubin 0.4 MG/DL (0.2-1.0) Aspartate Amino Transf (AST/SGOT) 13 U/L (15-37) L Alanine Aminotransferase (ALT/SGPT) 9 U/L (12-78) L Alkaline Phosphatase 66 U/L (46-116) Total Protein 6.4 G/DL (6.4-8.2) Albumin 2.4 G/DL (3.4-5.0) L Globulin 4.0 g/dL Albumin/Globulin Ratio 0.6 (1.0-2.7) L Arterial Blood pH 7.458 (7.350-7.450) Arterial Blood Partial Pressure CO2 35.1 mmHg (35.0-45.0) Arterial Blood Partial Pressure O2 159.0 mmHg (75.0-100.0) H Arterial Blood HCO3 24.3 mmol/L (22.0-26.0) Arterial Blood Oxygen Saturation 98.6 % (92.0-98.0) H Arterial Blood Base Excess 0.7 Anthony Test Positive Current Medications Medications (Trade) Dose Ordered Sig/Karen Route PRN Reason Start Time Stop Time Status Last Admin Dose Admin Albuterol/ Ipratropium (DuoNeb 0.5-3(2.5)mg/3ml) 3 ml Q4H PRN HHN Shortness of Breath 07/02/17 03:30 07/06/17 19:29 Carbamazepine (TEGretol) 200 mg FOUR TIMES A DAY ORAL 07/02/17 09:00 07/23/17 12:59 07/05/17 21:19 Dextrose (Dextrose 50%) STAT PRN IV Hypoglycemia 07/02/17 12:00 07/25/17 11:59 Dextrose/Sodium Chloride 1,000 ml @ 75 mls/hr [id number] IV 07/03/17 13:00 08/02/17 12:59 07/05/17 17:45 Docusate Sodium (Colace) 100 mg DAILY ORAL 07/02/17 09:00 07/29/17 08:59 07/05/17 08:32 Dopamine HCl/ Dextrose 250 ml @ 0 mls/hr Q24H IV 07/03/17 15:00 08/02/17 14:59 07/03/17 15:15 Heparin Sodium (Porcine) (Heparin 5000 units/ml) 5,000 units EVERY 12 HOURS SUBQ 07/02/17 09:00 07/23/17 20:59 07/05/17 21:21 Levetiracetam (Keppra) 500 mg Q12HR ORAL 07/02/17 09:00 07/23/17 20:59 07/05/17 21:19 Lorazepam (Ativan 2mg/ml 1ml) 2 mg Q4H PRN IV For Anxiety 07/02/17 00:15 07/08/17 12:14 07/05/17 17:45 Methylprednisolone Sodium Succinate (Solu-MEDROL) 60 mg DAILY IV 07/02/17 09:00 07/23/17 17:59 07/05/17 08:32 Morphine Sulfate (Morphine Sulfate) 2 mg Q4H PRN IVP Moderate Pain (Pain Scale 4-6) 07/04/17 16:15 07/11/17 16:14 Morphine Sulfate (Morphine Sulfate) 4 mg Q4H PRN IVP Severe Pain (Pain Scale 7-10) 07/02/17 00:15 07/08/17 12:14 Nitroglycerin (Ntg) 0.4 mg Q5M X 3 DOSES PRN SL Prn Chest Pain 07/01/17 23:45 07/23/17 13:29 Olanzapine (ZyPREXA) 20 mg BEDTIME ORAL 07/02/17 21:00 07/24/17 08:59 07/05/17 21:19 Ondansetron HCl (Zofran) 4 mg Q6H PRN IVP Nausea & Vomiting 07/02/17 00:00 07/23/17 11:59 Pantoprazole (Protonix) 40 mg DAILY IV 07/02/17 09:00 08/01/17 08:59 07/05/17 08:31 Piperacillin/ Tazobactam/ Dextrose 50 ml @ 12.5 mls/hr Q8H IVPB 07/05/17 22:00 07/07/17 23:59 07/05/17 22:22 Theophylline (Dane-Dur) 100 mg EVERY 12 HOURS ORAL 07/02/17 09:00 07/23/17 20:59 07/05/17 21:18 Vancomycin HCl (Vanco rx to dose) 1 ea DAILY PRN MISC Per rx protocol 07/02/17 09:00 07/28/17 12:59 Vancomycin/Sodium Chloride 250 ml @ 166.667 mls/hr Q24H IVPB 07/03/17 14:00 07/08/17 13:59 07/05/17 13:05 SHEKHAR MERAZ Jul 05, 2017 23:36
--- NOTE | 2017-07-05 23:50 | Cardiology Progress Note ---
Assessment/Plan Assessment/Plan 1. Sinus tachycardia, resolved. 2. Hypotension, due to sepsis, normal LV systolic function with LVEF at 60-65%. 3. Acute respiratory failure due to left lung collapse, got intubated on mechanical ventilator, s/p bronchoscopy. 4. Dual chamber pacemaker implantation, currently intrinsic atrial and ventricular activity. Subjective Subjective s/p bronchoscopy Intubated. Sinus rhythm at 94. Objective Last 24 Hour Vital Signs Date Time Temp Pulse Resp B/P (MAP) Pulse Ox O2 Delivery O2 Flow Rate FiO2 07/05/17 22:30 60 16 40 07/05/17 20:39 78 16 40 07/05/17 19:09 79 16 40 07/05/17 19:00 66 16 97/58 100 Mechanical Ventilator 40 07/05/17 18:00 64 16 101/58 100 Mechanical Ventilator 40 07/05/17 17:00 94 16 113/58 100 Mechanical Ventilator 40 07/05/17 16:43 83 16 40 07/05/17 16:00 73 07/05/17 16:00 40 07/05/17 16:00 98.1 69 16 114/69 100 Mechanical Ventilator 40 07/05/17 15:07 82 18 40 07/05/17 15:00 77 16 107/52 100 Mechanical Ventilator 40 07/05/17 14:00 77 16 104/65 100 Mechanical Ventilator 40 07/05/17 13:00 69 16 112/62 99 Mechanical Ventilator 40 07/05/17 12:51 73 16 40 07/05/17 12:00 40 07/05/17 12:00 70 07/05/17 12:00 98.0 76 17 109/60 100 Mechanical Ventilator 40 07/05/17 11:16 79 16 40 07/05/17 11:00 75 16 125/61 100 Mechanical Ventilator 40 07/05/17 10:00 88 17 109/49 100 Mechanical Ventilator 40 07/05/17 09:21 70 17 40 07/05/17 09:00 64 17 104/56 100 Mechanical Ventilator 50 07/05/17 08:00 98.1 64 16 109/61 100 Mechanical Ventilator 50 07/05/17 08:00 50 07/05/17 08:00 63 07/05/17 07:00 72 17 99/78 100 Mechanical Ventilator 50 07/05/17 06:44 60 16 50 07/05/17 06:00 60 17 112/60 100 Mechanical Ventilator 50 07/05/17 05:15 60 16 50 07/05/17 05:00 60 17 107/62 100 Mechanical Ventilator 50 07/05/17 04:00 50 07/05/17 04:00 98.4 60 17 110/51 100 Mechanical Ventilator 50 07/05/17 04:00 60 07/05/17 03:12 60 16 50 07/05/17 03:00 60 16 111/51 100 Mechanical Ventilator 50 07/05/17 02:00 60 16 82/50 100 Mechanical Ventilator 50 07/05/17 01:29 68 16 50 07/05/17 01:00 65 16 113/61 100 Mechanical Ventilator 50 07/05/17 00:00 50 07/05/17 00:00 98.0 60 15 89/48 100 Mechanical Ventilator 50 07/05/17 00:00 60 Intake and Output 07/05/17 07/06/17 19:00 07:00 Intake Total 1745.000 ml Output Total 1250 ml Balance 495.000 ml Free Water 30 ml IV Total 1335.000 ml Tube Feeding 220 ml Other 160 ml Output Urine Total 1250 ml 2D Echo: LVEF 60-65%, mild TR with RVSP at 33 mmHg Laboratory Tests Test 07/05/17 05:00 07/05/17 06:44 White Blood Count 10.5 K/UL (4.8-10.8) Red Blood Count 2.94 M/UL (4.70-6.10) L Hemoglobin 10.2 G/DL (14.2-18.0) L Hematocrit 29.4 % (42.0-52.0) L Mean Corpuscular Volume 100 FL (80-99) H Mean Corpuscular Hemoglobin 34.5 PG (27.0-31.0) H Mean Corpuscular Hemoglobin Concent 34.6 G/DL (32.0-36.0) Red Cell Distribution Width 12.7 % (11.6-14.8) Platelet Count 286 K/UL (150-450) Mean Platelet Volume 5.8 FL (6.5-10.1) L Neutrophils (%) (Auto) 57.0 % (45.0-75.0) Lymphocytes (%) (Auto) 31.0 % (20.0-45.0) Monocytes (%) (Auto) 8.3 % (1.0-10.0) Eosinophils (%) (Auto) 3.1 % (0.0-3.0) H Basophils (%) (Auto) 0.6 % (0.0-2.0) Sodium Level 142 MMOL/L (136-145) Potassium Level 2.6 MMOL/L (3.5-5.1) *L Chloride Level 106 MMOL/L (98-107) Carbon Dioxide Level 23 MMOL/L (21-32) Anion Gap 12 mmol/L (5-15) Blood Urea Nitrogen 12 mg/dL (7-18) Creatinine 1.2 MG/DL (0.55-1.30) Estimat Glomerular Filtration Rate > 60 mL/min (>60) Glucose Level 112 MG/DL (74-106) H Calcium Level 8.7 MG/DL (8.5-10.1) Phosphorus Level 3.4 MG/DL (2.5-4.9) Magnesium Level 1.8 MG/DL (1.8-2.4) Total Bilirubin 0.4 MG/DL (0.2-1.0) Aspartate Amino Transf (AST/SGOT) 13 U/L (15-37) L Alanine Aminotransferase (ALT/SGPT) 9 U/L (12-78) L Alkaline Phosphatase 66 U/L (46-116) Total Protein 6.4 G/DL (6.4-8.2) Albumin 2.4 G/DL (3.4-5.0) L Globulin 4.0 g/dL Albumin/Globulin Ratio 0.6 (1.0-2.7) L Arterial Blood pH 7.458 (7.350-7.450) Arterial Blood Partial Pressure CO2 35.1 mmHg (35.0-45.0) Arterial Blood Partial Pressure O2 159.0 mmHg (75.0-100.0) H Arterial Blood HCO3 24.3 mmol/L (22.0-26.0) Arterial Blood Oxygen Saturation 98.6 % (92.0-98.0) H Arterial Blood Base Excess 0.7 Anthony Test Positive Microbiology Date/Time Source Procedure Growth Status 07/04/17 14:00 Sputum Gram Stain - Final Resulted 07/04/17 14:00 Sputum Sputum Culture - Preliminary Resulted Objective HEENT: Atraumatic and normocephalic. ENT, pupils are equal, round, and reactive to light and accommodation. Pale conjunctiva, intubated. NECK: JVP cannot be assessed. No carotid bruit. Carotid upstrokes 2+ bilaterally. LUNGS: Diminished BS left lung. CVS: Normal S1, S2. no murmurs, gallops or rubs. PMI is at fourth intercostal space in the midclavicular line. ABDOMEN: Soft, nontender, and nondistended. No hepatosplenomegaly. Positive bowel sounds. EXTREMITIES: No evidence of edema, clubbing, or cyanosis. CALLUM BARON Jul 05, 2017 23:50
[2017-07-06] VITALS (24 sets, daily range): BP systolic 78–129; BP diastolic 26–75
[2017-07-06] MEDS: LORazepam Inj 2mg/ml 1ml IV PRN (02:08)
[2017-07-06 05:38] LABS: BASOPHILS % (AUTO) 0.6 % (0.0-2.0); EOSINOPHILS % (AUTO) 3.5 % (0.0-3.0); HEMATOCRIT 32.5 % (42.0-52.0); HEMOGLOBIN 10.9 G/DL (14.2-18.0); LYMPHOCYTES % (AUTO) 31.4 % (20.0-45.0); MEAN CORPUSCULAR VOLUME 103 FL (80-99); MONOCYTES % (AUTO) 8.6 % (1.0-10.0); NEUTROPHILS % (AUTO) 55.9 % (45.0-75.0); PLATELET COUNT 312 K/UL (150-450); RED BLOOD COUNT 3.16 M/UL (4.70-6.10); RED CELL DISTRIBUTION WIDTH 13.3 % (11.6-14.8); WHITE BLOOD COUNT 8.9 K/UL (4.8-10.8)
[2017-07-06 05:44] LABS: ALANINE AMINOTRANSFERASE 10 U/L (12-78); ALBUMIN 2.6 G/DL (3.4-5.0); ALBUMIN/GLOBULIN RATIO 0.6 (1.0-2.7); ALKALINE PHOSPHATASE 74 U/L (46-116); ANION GAP 10 mmol/L (5-15); ASPARTATE AMINO TRANSFERASE 12 U/L (15-37); BILIRUBIN,TOTAL 0.3 MG/DL (0.2-1.0); BLOOD UREA NITROGEN 11 mg/dL (7-18); CALCIUM 9.2 MG/DL (8.5-10.1); CARBON DIOXIDE 23 MMOL/L (21-32); CHLORIDE 108 MMOL/L (98-107); CREATININE 1.2 MG/DL (0.55-1.30); POTASSIUM 3.6 MMOL/L (3.5-5.1); SODIUM 141 MMOL/L (136-145)
[2017-07-06] MEDS: Zosyn 3.375gm/50ml Premix 50 ML IVPB SCH ×3 (06:10→22:08)
[2017-07-06] MEDS: Docusate 100mg cap ORAL SCH (08:53)
[2017-07-06] MEDS: D5 1/2NS 1,000 ML IV SCH ×2 (08:53→20:36)
[2017-07-06] MEDS: Solu-MEDROL 125mg Inj IV SCH (08:53)
[2017-07-06] MEDS: Theophylline ER 100mg ORAL SCH ×2 (08:53→20:37)
[2017-07-06] MEDS: Pantoprazole Inj IV SCH (08:53)
[2017-07-06] MEDS: Heparin 5000 units/ml inj SUBQ SCH ×2 (08:59→20:39)
[2017-07-06] MEDS: carBAMazepine 200mg tab ORAL SCH ×4 (09:11→20:37)
--- NOTE | 2017-07-06 11:34 | Diagnostic Imaging Report ---
Indication: Dyspnea Comparison: 07/05/17 A single view chest radiograph was obtained. Findings: Left pulmonary volume loss and complete opacification noted. Pacemaker again demonstrated. Heart and trachea are shifted to the left although the current study is limited by rotation to the left. IVC filter again noted. Impression: Similar findings to the previous day. Near-complete opacification of the left hemithorax suspected to be largely on the basis of atelectasis.
--- NOTE | 2017-07-06 11:41 | General Progress Note ---
Assessment/Plan Problem List: (1) Respiratory failure ICD Codes: J96.90 - Respiratory failure, unspecified, unspecified whether with hypoxia or hypercapnia SNOMED: 202065200 (2) Sepsis ICD Codes: A41.9 - Sepsis, unspecified organism SNOMED: 55537111 (3) UTI (urinary tract infection) ICD Codes: N39.0 - Urinary tract infection, site not specified SNOMED: 64877513 (4) Schizophrenia ICD Codes: F20.9 - Schizophrenia, unspecified SNOMED: 19051641 (5) History of pacemaker ICD Codes: Z95.0 - Presence of cardiac pacemaker SNOMED: 040132476 (6) Limited mobility ICD Codes: Z74.09 - Other reduced mobility SNOMED: 0671390 Status: unchanged Assessment/Plan o2 pul tx ot pt diet abx cbc bmp am ltach eval Subjective Constitutional: Reports: weakness Allergies: Coded Allergies: CHLORPROMAZINE (Verified Allergy, Unknown, 06/23/17) ERYTHROMYCIN BASE (Verified Allergy, Unknown, 06/23/17) Uncoded Allergies: TAPE (Allergy, Unknown, 06/23/17) All Systems: reviewed and negative except above Subjective intubated sedated in icu Objective Last 24 Hour Vital Signs Date Time Temp Pulse Resp B/P (MAP) Pulse Ox O2 Delivery O2 Flow Rate FiO2 07/06/17 11:12 64 16 30 07/06/17 11:00 64 16 94/43 100 Mechanical Ventilator 40 07/06/17 10:00 60 16 90/46 99 Mechanical Ventilator 40 07/06/17 09:29 68 16 35 07/06/17 08:00 40 07/06/17 08:00 71 07/06/17 08:00 97.6 77 16 89/26 99 Mechanical Ventilator 40 07/06/17 07:32 69 16 40 07/06/17 07:00 66 16 95/59 100 Mechanical Ventilator 40 07/06/17 06:00 61 16 100/57 100 Mechanical Ventilator 40 07/06/17 05:16 74 17 40 07/06/17 05:00 62 16 86/57 100 Mechanical Ventilator 40 07/06/17 04:00 40 07/06/17 04:00 72 07/06/17 04:00 98.4 86 16 83/43 98 Mechanical Ventilator 40 07/06/17 03:00 86 17 107/64 99 Mechanical Ventilator 40 07/06/17 02:45 84 17 40 07/06/17 02:00 78 16 129/68 98 Mechanical Ventilator 40 07/06/17 01:00 77 17 115/75 100 Mechanical Ventilator 40 07/06/17 00:43 81 16 40 07/06/17 00:00 98.2 78 17 106/58 100 Mechanical Ventilator 40 07/06/17 00:00 64 07/06/17 00:00 40 07/05/17 23:00 63 16 98/58 100 Mechanical Ventilator 40 07/05/17 22:30 60 16 40 07/05/17 22:00 65 16 95/58 100 Mechanical Ventilator 40 07/05/17 21:00 67 16 99/51 100 Mechanical Ventilator 40 07/05/17 20:39 78 16 40 07/05/17 20:00 98.4 74 16 97/53 100 Mechanical Ventilator 40 07/05/17 20:00 74 07/05/17 20:00 40 07/05/17 19:09 79 16 40 07/05/17 19:00 66 16 97/58 100 Mechanical Ventilator 40 07/05/17 18:00 64 16 101/58 100 Mechanical Ventilator 40 07/05/17 17:00 94 16 113/58 100 Mechanical Ventilator 40 07/05/17 16:43 83 16 40 07/05/17 16:00 73 07/05/17 16:00 40 07/05/17 16:00 98.1 69 16 114/69 100 Mechanical Ventilator 40 07/05/17 15:07 82 18 40 07/05/17 15:00 77 16 107/52 100 Mechanical Ventilator 40 07/05/17 14:00 77 16 104/65 100 Mechanical Ventilator 40 07/05/17 13:00 69 16 112/62 99 Mechanical Ventilator 40 07/05/17 12:51 73 16 40 07/05/17 12:00 40 07/05/17 12:00 70 07/05/17 12:00 98.0 76 17 109/60 100 Mechanical Ventilator 40 Intake and Output 07/06/17 07/07/17 19:00 07:00 Intake Total 370 ml Output Total 160 ml Balance 210 ml IV Total 150 ml Tube Feeding 220 ml Output Urine Total 160 ml Stool Total 0 ml Laboratory Tests 07/06/17 04:05: White Blood Count 8.9, Red Blood Count 3.16L, Hemoglobin 10.9L, Hematocrit 32.5L , Mean Corpuscular Volume 103H, Mean Corpuscular Hemoglobin 34.6H, Mean Corpuscular Hemoglobin Concent 33.5, Red Cell Distribution Width 13.3, Platelet Count 312, Mean Platelet Volume 6.2L, Neutrophils (%) (Auto) 55.9, Lymphocytes ( %) (Auto) 31.4, Monocytes (%) (Auto) 8.6, Eosinophils (%) (Auto) 3.5H, Basophils (%) (Auto) 0.6, Sodium Level 141, Potassium Level 3.6, Chloride Level 108H, Carbon Dioxide Level 23, Anion Gap 10, Blood Urea Nitrogen 11, Creatinine 1.2, Estimat Glomerular Filtration Rate > 60, Glucose Level 112H, Calcium Level 9.2, Phosphorus Level 4.0, Magnesium Level 2.0, Total Bilirubin 0.3, Aspartate Amino Transf (AST/SGOT) 12L, Alanine Aminotransferase (ALT/SGPT) 10L, Alkaline Phosphatase 74, Total Protein 7.2, Albumin 2.6L, Globulin 4.6, Albumin/Globulin Ratio 0.6L 07/06/17 07:55: Arterial Blood pH 7.361, Arterial Blood Partial Pressure CO2 40.0, Arterial Blood Partial Pressure O2 83.7, Arterial Blood HCO3 22.1, Arterial Blood Oxygen Saturation 95.4, Arterial Blood Base Excess -3.0, Anthony Test Positive Height (Feet): 5 Height (Inches): 11.00 Weight (Pounds): 117 General Appearance: lethargic EENT: normal ENT inspection Neck: normal alignment Cardiovascular: normal peripheral pulses, normal rate, regular rhythm Respiratory/Chest: chest wall non-tender, lungs clear, normal breath sounds Abdomen: normal bowel sounds, non tender, soft Extremities: normal inspection Edema: no edema noted Arm (L), no edema noted Arm (R), no edema noted Leg (L), no edema noted Leg (R), no edema noted Pedal (L), no edema noted Pedal (R), no edema noted Generalized Neurologic: motor weakness Skin: normal pigmentation, warm/dry QUINTON HUMPHRIES Jul 06, 2017 11:41
--- NOTE | 2017-07-06 11:41 | General Progress Note ---
Assessment/Plan Problem List: (1) Respiratory failure ICD Codes: J96.90 - Respiratory failure, unspecified, unspecified whether with hypoxia or hypercapnia SNOMED: 651359458 (2) Sepsis ICD Codes: A41.9 - Sepsis, unspecified organism SNOMED: 68473701 (3) UTI (urinary tract infection) ICD Codes: N39.0 - Urinary tract infection, site not specified SNOMED: 76376791 (4) Schizophrenia ICD Codes: F20.9 - Schizophrenia, unspecified SNOMED: 23394632 (5) History of pacemaker ICD Codes: Z95.0 - Presence of cardiac pacemaker SNOMED: 605456146 (6) Limited mobility ICD Codes: Z74.09 - Other reduced mobility SNOMED: 6881345 Status: unchanged Assessment/Plan o2 pul tx ot pt diet abx cbc bmp am ltach eval Subjective Constitutional: Reports: weakness Allergies: Coded Allergies: CHLORPROMAZINE (Verified Allergy, Unknown, 06/23/17) ERYTHROMYCIN BASE (Verified Allergy, Unknown, 06/23/17) Uncoded Allergies: TAPE (Allergy, Unknown, 06/23/17) All Systems: reviewed and negative except above Subjective intubated sedated in icu Objective Last 24 Hour Vital Signs Date Time Temp Pulse Resp B/P (MAP) Pulse Ox O2 Delivery O2 Flow Rate FiO2 07/06/17 11:12 64 16 30 07/06/17 11:00 64 16 94/43 100 Mechanical Ventilator 40 07/06/17 10:00 60 16 90/46 99 Mechanical Ventilator 40 07/06/17 09:29 68 16 35 07/06/17 08:00 40 07/06/17 08:00 71 07/06/17 08:00 97.6 77 16 89/26 99 Mechanical Ventilator 40 07/06/17 07:32 69 16 40 07/06/17 07:00 66 16 95/59 100 Mechanical Ventilator 40 07/06/17 06:00 61 16 100/57 100 Mechanical Ventilator 40 07/06/17 05:16 74 17 40 07/06/17 05:00 62 16 86/57 100 Mechanical Ventilator 40 07/06/17 04:00 40 07/06/17 04:00 72 07/06/17 04:00 98.4 86 16 83/43 98 Mechanical Ventilator 40 07/06/17 03:00 86 17 107/64 99 Mechanical Ventilator 40 07/06/17 02:45 84 17 40 07/06/17 02:00 78 16 129/68 98 Mechanical Ventilator 40 07/06/17 01:00 77 17 115/75 100 Mechanical Ventilator 40 07/06/17 00:43 81 16 40 07/06/17 00:00 98.2 78 17 106/58 100 Mechanical Ventilator 40 07/06/17 00:00 64 07/06/17 00:00 40 07/05/17 23:00 63 16 98/58 100 Mechanical Ventilator 40 07/05/17 22:30 60 16 40 07/05/17 22:00 65 16 95/58 100 Mechanical Ventilator 40 07/05/17 21:00 67 16 99/51 100 Mechanical Ventilator 40 07/05/17 20:39 78 16 40 07/05/17 20:00 98.4 74 16 97/53 100 Mechanical Ventilator 40 07/05/17 20:00 74 07/05/17 20:00 40 07/05/17 19:09 79 16 40 07/05/17 19:00 66 16 97/58 100 Mechanical Ventilator 40 07/05/17 18:00 64 16 101/58 100 Mechanical Ventilator 40 07/05/17 17:00 94 16 113/58 100 Mechanical Ventilator 40 07/05/17 16:43 83 16 40 07/05/17 16:00 73 07/05/17 16:00 40 07/05/17 16:00 98.1 69 16 114/69 100 Mechanical Ventilator 40 07/05/17 15:07 82 18 40 07/05/17 15:00 77 16 107/52 100 Mechanical Ventilator 40 07/05/17 14:00 77 16 104/65 100 Mechanical Ventilator 40 07/05/17 13:00 69 16 112/62 99 Mechanical Ventilator 40 07/05/17 12:51 73 16 40 07/05/17 12:00 40 07/05/17 12:00 70 07/05/17 12:00 98.0 76 17 109/60 100 Mechanical Ventilator 40 Intake and Output 07/06/17 07/07/17 19:00 07:00 Intake Total 370 ml Output Total 160 ml Balance 210 ml IV Total 150 ml Tube Feeding 220 ml Output Urine Total 160 ml Stool Total 0 ml Laboratory Tests 07/06/17 04:05: White Blood Count 8.9, Red Blood Count 3.16L, Hemoglobin 10.9L, Hematocrit 32.5L , Mean Corpuscular Volume 103H, Mean Corpuscular Hemoglobin 34.6H, Mean Corpuscular Hemoglobin Concent 33.5, Red Cell Distribution Width 13.3, Platelet Count 312, Mean Platelet Volume 6.2L, Neutrophils (%) (Auto) 55.9, Lymphocytes ( %) (Auto) 31.4, Monocytes (%) (Auto) 8.6, Eosinophils (%) (Auto) 3.5H, Basophils (%) (Auto) 0.6, Sodium Level 141, Potassium Level 3.6, Chloride Level 108H, Carbon Dioxide Level 23, Anion Gap 10, Blood Urea Nitrogen 11, Creatinine 1.2, Estimat Glomerular Filtration Rate > 60, Glucose Level 112H, Calcium Level 9.2, Phosphorus Level 4.0, Magnesium Level 2.0, Total Bilirubin 0.3, Aspartate Amino Transf (AST/SGOT) 12L, Alanine Aminotransferase (ALT/SGPT) 10L, Alkaline Phosphatase 74, Total Protein 7.2, Albumin 2.6L, Globulin 4.6, Albumin/Globulin Ratio 0.6L 07/06/17 07:55: Arterial Blood pH 7.361, Arterial Blood Partial Pressure CO2 40.0, Arterial Blood Partial Pressure O2 83.7, Arterial Blood HCO3 22.1, Arterial Blood Oxygen Saturation 95.4, Arterial Blood Base Excess -3.0, Anthony Test Positive Height (Feet): 5 Height (Inches): 11.00 Weight (Pounds): 117 General Appearance: lethargic EENT: normal ENT inspection Neck: normal alignment Cardiovascular: normal peripheral pulses, normal rate, regular rhythm Respiratory/Chest: chest wall non-tender, lungs clear, normal breath sounds Abdomen: normal bowel sounds, non tender, soft Extremities: normal inspection Edema: no edema noted Arm (L), no edema noted Arm (R), no edema noted Leg (L), no edema noted Leg (R), no edema noted Pedal (L), no edema noted Pedal (R), no edema noted Generalized Neurologic: motor weakness Skin: normal pigmentation, warm/dry QUINTON HUMPHRIES Jul 06, 2017 11:41
--- NOTE | 2017-07-06 11:41 | General Progress Note ---
Assessment/Plan Problem List: (1) Respiratory failure ICD Codes: J96.90 - Respiratory failure, unspecified, unspecified whether with hypoxia or hypercapnia SNOMED: 678297464 (2) Sepsis ICD Codes: A41.9 - Sepsis, unspecified organism SNOMED: 26808002 (3) UTI (urinary tract infection) ICD Codes: N39.0 - Urinary tract infection, site not specified SNOMED: 76128705 (4) Schizophrenia ICD Codes: F20.9 - Schizophrenia, unspecified SNOMED: 95104611 (5) History of pacemaker ICD Codes: Z95.0 - Presence of cardiac pacemaker SNOMED: 712197234 (6) Limited mobility ICD Codes: Z74.09 - Other reduced mobility SNOMED: 8783145 Status: unchanged Assessment/Plan o2 pul tx ot pt diet abx cbc bmp am ltach eval Subjective Constitutional: Reports: weakness Allergies: Coded Allergies: CHLORPROMAZINE (Verified Allergy, Unknown, 06/23/17) ERYTHROMYCIN BASE (Verified Allergy, Unknown, 06/23/17) Uncoded Allergies: TAPE (Allergy, Unknown, 06/23/17) All Systems: reviewed and negative except above Subjective intubated sedated in icu Objective Last 24 Hour Vital Signs Date Time Temp Pulse Resp B/P (MAP) Pulse Ox O2 Delivery O2 Flow Rate FiO2 07/06/17 11:12 64 16 30 07/06/17 11:00 64 16 94/43 100 Mechanical Ventilator 40 07/06/17 10:00 60 16 90/46 99 Mechanical Ventilator 40 07/06/17 09:29 68 16 35 07/06/17 08:00 40 07/06/17 08:00 71 07/06/17 08:00 97.6 77 16 89/26 99 Mechanical Ventilator 40 07/06/17 07:32 69 16 40 07/06/17 07:00 66 16 95/59 100 Mechanical Ventilator 40 07/06/17 06:00 61 16 100/57 100 Mechanical Ventilator 40 07/06/17 05:16 74 17 40 07/06/17 05:00 62 16 86/57 100 Mechanical Ventilator 40 07/06/17 04:00 40 07/06/17 04:00 72 07/06/17 04:00 98.4 86 16 83/43 98 Mechanical Ventilator 40 07/06/17 03:00 86 17 107/64 99 Mechanical Ventilator 40 07/06/17 02:45 84 17 40 07/06/17 02:00 78 16 129/68 98 Mechanical Ventilator 40 07/06/17 01:00 77 17 115/75 100 Mechanical Ventilator 40 07/06/17 00:43 81 16 40 07/06/17 00:00 98.2 78 17 106/58 100 Mechanical Ventilator 40 07/06/17 00:00 64 07/06/17 00:00 40 07/05/17 23:00 63 16 98/58 100 Mechanical Ventilator 40 07/05/17 22:30 60 16 40 07/05/17 22:00 65 16 95/58 100 Mechanical Ventilator 40 07/05/17 21:00 67 16 99/51 100 Mechanical Ventilator 40 07/05/17 20:39 78 16 40 07/05/17 20:00 98.4 74 16 97/53 100 Mechanical Ventilator 40 07/05/17 20:00 74 07/05/17 20:00 40 07/05/17 19:09 79 16 40 07/05/17 19:00 66 16 97/58 100 Mechanical Ventilator 40 07/05/17 18:00 64 16 101/58 100 Mechanical Ventilator 40 07/05/17 17:00 94 16 113/58 100 Mechanical Ventilator 40 07/05/17 16:43 83 16 40 07/05/17 16:00 73 07/05/17 16:00 40 07/05/17 16:00 98.1 69 16 114/69 100 Mechanical Ventilator 40 07/05/17 15:07 82 18 40 07/05/17 15:00 77 16 107/52 100 Mechanical Ventilator 40 07/05/17 14:00 77 16 104/65 100 Mechanical Ventilator 40 07/05/17 13:00 69 16 112/62 99 Mechanical Ventilator 40 07/05/17 12:51 73 16 40 07/05/17 12:00 40 07/05/17 12:00 70 07/05/17 12:00 98.0 76 17 109/60 100 Mechanical Ventilator 40 Intake and Output 07/06/17 07/07/17 19:00 07:00 Intake Total 370 ml Output Total 160 ml Balance 210 ml IV Total 150 ml Tube Feeding 220 ml Output Urine Total 160 ml Stool Total 0 ml Laboratory Tests 07/06/17 04:05: White Blood Count 8.9, Red Blood Count 3.16L, Hemoglobin 10.9L, Hematocrit 32.5L , Mean Corpuscular Volume 103H, Mean Corpuscular Hemoglobin 34.6H, Mean Corpuscular Hemoglobin Concent 33.5, Red Cell Distribution Width 13.3, Platelet Count 312, Mean Platelet Volume 6.2L, Neutrophils (%) (Auto) 55.9, Lymphocytes ( %) (Auto) 31.4, Monocytes (%) (Auto) 8.6, Eosinophils (%) (Auto) 3.5H, Basophils (%) (Auto) 0.6, Sodium Level 141, Potassium Level 3.6, Chloride Level 108H, Carbon Dioxide Level 23, Anion Gap 10, Blood Urea Nitrogen 11, Creatinine 1.2, Estimat Glomerular Filtration Rate > 60, Glucose Level 112H, Calcium Level 9.2, Phosphorus Level 4.0, Magnesium Level 2.0, Total Bilirubin 0.3, Aspartate Amino Transf (AST/SGOT) 12L, Alanine Aminotransferase (ALT/SGPT) 10L, Alkaline Phosphatase 74, Total Protein 7.2, Albumin 2.6L, Globulin 4.6, Albumin/Globulin Ratio 0.6L 07/06/17 07:55: Arterial Blood pH 7.361, Arterial Blood Partial Pressure CO2 40.0, Arterial Blood Partial Pressure O2 83.7, Arterial Blood HCO3 22.1, Arterial Blood Oxygen Saturation 95.4, Arterial Blood Base Excess -3.0, Anthony Test Positive Height (Feet): 5 Height (Inches): 11.00 Weight (Pounds): 117 General Appearance: lethargic EENT: normal ENT inspection Neck: normal alignment Cardiovascular: normal peripheral pulses, normal rate, regular rhythm Respiratory/Chest: chest wall non-tender, lungs clear, normal breath sounds Abdomen: normal bowel sounds, non tender, soft Extremities: normal inspection Edema: no edema noted Arm (L), no edema noted Arm (R), no edema noted Leg (L), no edema noted Leg (R), no edema noted Pedal (L), no edema noted Pedal (R), no edema noted Generalized Neurologic: motor weakness Skin: normal pigmentation, warm/dry QUINTON HUMPHRIES Jul 06, 2017 11:41
--- NOTE | 2017-07-06 12:19 | Pulmonolgy Critical Care Note ---
Critical Care - Asmt/Plan Problems: (1) Acute encephalopathy (2) Acute respiratory failure (3) Collapse of left lung (4) UTI (urinary tract infection) (5) Schizophrenia (6) History of pacemaker (7) Fever Respiratory: monitor respiratory rate, adjust FIO2, CXR, other - chest PT Cardiac: continue to monitor HR/BP Renal: F/U I&O, keep IV fluid Infectious Disease: check cultures Gastrointestinal: hold feedings Endocrine: monitor blood sugar, continue sliding scale insulin Hematologic: transfuse if hgb<8.5 Neurologic: PRN Ativan, PRN Morphine, keep patient comfortable Affect: PRN ativan Prophylaxis: Protonix Notes 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: 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, 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, 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 with: nurses, consultants, director case managementbakery manager - Objective Last 24 Hour Vital Signs Date Time Temp Pulse Resp B/P (MAP) Pulse Ox O2 Delivery O2 Flow Rate FiO2 07/06/17 11:12 64 16 30 07/06/17 11:00 64 16 94/43 100 Mechanical Ventilator 40 07/06/17 10:00 60 16 90/46 99 Mechanical Ventilator 40 07/06/17 09:29 68 16 35 07/06/17 08:00 40 07/06/17 08:00 71 07/06/17 08:00 97.6 77 16 89/26 99 Mechanical Ventilator 40 07/06/17 07:32 69 16 40 07/06/17 07:00 66 16 95/59 100 Mechanical Ventilator 40 07/06/17 06:00 61 16 100/57 100 Mechanical Ventilator 40 07/06/17 05:16 74 17 40 07/06/17 05:00 62 16 86/57 100 Mechanical Ventilator 40 07/06/17 04:00 40 07/06/17 04:00 72 07/06/17 04:00 98.4 86 16 83/43 98 Mechanical Ventilator 40 07/06/17 03:00 86 17 107/64 99 Mechanical Ventilator 40 07/06/17 02:45 84 17 40 07/06/17 02:00 78 16 129/68 98 Mechanical Ventilator 40 07/06/17 01:00 77 17 115/75 100 Mechanical Ventilator 40 07/06/17 00:43 81 16 40 07/06/17 00:00 98.2 78 17 106/58 100 Mechanical Ventilator 40 07/06/17 00:00 64 07/06/17 00:00 40 07/05/17 23:00 63 16 98/58 100 Mechanical Ventilator 40 07/05/17 22:30 60 16 40 07/05/17 22:00 65 16 95/58 100 Mechanical Ventilator 40 07/05/17 21:00 67 16 99/51 100 Mechanical Ventilator 40 07/05/17 20:39 78 16 40 07/05/17 20:00 98.4 74 16 97/53 100 Mechanical Ventilator 40 07/05/17 20:00 74 07/05/17 20:00 40 07/05/17 19:09 79 16 40 07/05/17 19:00 66 16 97/58 100 Mechanical Ventilator 40 07/05/17 18:00 64 16 101/58 100 Mechanical Ventilator 40 07/05/17 17:00 94 16 113/58 100 Mechanical Ventilator 40 07/05/17 16:43 83 16 40 07/05/17 16:00 73 07/05/17 16:00 40 07/05/17 16:00 98.1 69 16 114/69 100 Mechanical Ventilator 40 07/05/17 15:07 82 18 40 07/05/17 15:00 77 16 107/52 100 Mechanical Ventilator 40 07/05/17 14:00 77 16 104/65 100 Mechanical Ventilator 40 07/05/17 13:00 69 16 112/62 99 Mechanical Ventilator 40 07/05/17 12:51 73 16 40 Status: awake Condition: critical HEENT: atraumatic Neck: full ROM Lungs: clear Heart: HR/BP stable, regular Abdomen: non-tender, active bowel sounds Extremities: no C/C/E, edema Micro: Microbiology Date/Time Source Procedure Growth Status 07/04/17 14:00 Sputum Gram Stain - Final Resulted 07/04/17 14:00 Sputum Culture - Preliminary Staphylococcus Aureus Resulted Critical Care - Subjective ROS Limited/Unobtainable: Yes ICU Day: 6 Intubation Day: 6 Condition: critical EKG Rhythm: Sinus Rhythm FI02: 30 Vent Support Breath Rate: 16 Vent Support Mode: AC Vent Tidal Volume: 600 Sputum Amount: Small PIP: 22 Secretions: small Fluids: KVO Tube Feeding Amount: 55 I&O: Intake and Output 07/06/17 07/07/17 19:00 07:00 Intake Total 370 ml Output Total 160 ml Balance 210 ml IV Total 150 ml Tube Feeding 220 ml Output Urine Total 160 ml Stool Total 0 ml CXR: still left lung collapse ET-Tube: 8.0 ET Position: 21 Labs: Laboratory Tests Test 07/06/17 04:05 07/06/17 07:55 White Blood Count 8.9 K/UL (4.8-10.8) Red Blood Count 3.16 M/UL (4.70-6.10) L Hemoglobin 10.9 G/DL (14.2-18.0) L Hematocrit 32.5 % (42.0-52.0) L Mean Corpuscular Volume 103 FL (80-99) H Mean Corpuscular Hemoglobin 34.6 PG (27.0-31.0) H Mean Corpuscular Hemoglobin Concent 33.5 G/DL (32.0-36.0) Red Cell Distribution Width 13.3 % (11.6-14.8) Platelet Count 312 K/UL (150-450) Mean Platelet Volume 6.2 FL (6.5-10.1) L Neutrophils (%) (Auto) 55.9 % (45.0-75.0) Lymphocytes (%) (Auto) 31.4 % (20.0-45.0) Monocytes (%) (Auto) 8.6 % (1.0-10.0) Eosinophils (%) (Auto) 3.5 % (0.0-3.0) H Basophils (%) (Auto) 0.6 % (0.0-2.0) Sodium Level 141 MMOL/L (136-145) Potassium Level 3.6 MMOL/L (3.5-5.1) Chloride Level 108 MMOL/L (98-107) H Carbon Dioxide Level 23 MMOL/L (21-32) Anion Gap 10 mmol/L (5-15) Blood Urea Nitrogen 11 mg/dL (7-18) Creatinine 1.2 MG/DL (0.55-1.30) Estimat Glomerular Filtration Rate > 60 mL/min (>60) Glucose Level 112 MG/DL (74-106) H Calcium Level 9.2 MG/DL (8.5-10.1) Phosphorus Level 4.0 MG/DL (2.5-4.9) Magnesium Level 2.0 MG/DL (1.8-2.4) Total Bilirubin 0.3 MG/DL (0.2-1.0) Aspartate Amino Transf (AST/SGOT) 12 U/L (15-37) L Alanine Aminotransferase (ALT/SGPT) 10 U/L (12-78) L Alkaline Phosphatase 74 U/L (46-116) Total Protein 7.2 G/DL (6.4-8.2) Albumin 2.6 G/DL (3.4-5.0) L Globulin 4.6 g/dL Albumin/Globulin Ratio 0.6 (1.0-2.7) L Arterial Blood pH 7.361 (7.350-7.450) Arterial Blood Partial Pressure CO2 40.0 mmHg (35.0-45.0) Arterial Blood Partial Pressure O2 83.7 mmHg (75.0-100.0) Arterial Blood HCO3 22.1 mmol/L (22.0-26.0) Arterial Blood Oxygen Saturation 95.4 % (92.0-98.0) Arterial Blood Base Excess -3.0 Anthony Test Positive GWEN MARTE Jul 06, 2017 12:19
[2017-07-06] MEDS: DOPamine 400mg/250ml 250 ML IV SCH (15:00)
[2017-07-06] MEDS: Vancomycin 750mg/NS 250ml IVPB SCH (15:02)
--- NOTE | 2017-07-06 20:46 | Nephrology Progress Note ---
Assessment/Plan Assessment 1. hypokalemia 2. Elevated bicarbonate is in response to severe respiratory acidosis. 3. Hypertension. 4. History of chronic obstructive pulmonary disease. Plan plan to continue iv antibiotic monitoring renal function monitoring electrolyte replace as need avoid any NSAID Subjective Constitutional: Reports: no symptoms HEENT: Reports: no symptoms Genitourinary: Reports: no symptoms Neurologic/Psychiatric: Reports: no symptoms Subjective intubated in ICU Objective Objective Last 24 Hour Vital Signs Date Time Temp Pulse Resp B/P (MAP) Pulse Ox O2 Delivery O2 Flow Rate FiO2 07/06/17 18:53 60 17 30 07/06/17 18:00 60 16 94/52 100 Mechanical Ventilator 40 07/06/17 17:16 71 16 30 07/06/17 17:00 67 16 92/40 100 Mechanical Ventilator 40 07/06/17 16:00 97.6 67 16 92/40 100 Mechanical Ventilator 40 07/06/17 16:00 30 07/06/17 16:00 67 07/06/17 15:31 61 16 30 07/06/17 15:00 67 16 93/48 100 Mechanical Ventilator 40 07/06/17 14:00 67 16 103/50 100 Mechanical Ventilator 40 07/06/17 13:04 74 16 30 07/06/17 13:00 61 16 94/55 100 Mechanical Ventilator 40 07/06/17 12:00 97.9 64 16 92/48 100 Mechanical Ventilator 40 07/06/17 12:00 30 07/06/17 12:00 60 07/06/17 11:12 64 16 30 07/06/17 11:00 64 16 94/43 100 Mechanical Ventilator 40 07/06/17 10:00 35 07/06/17 10:00 60 16 90/46 99 Mechanical Ventilator 40 07/06/17 09:29 68 16 35 07/06/17 09:00 69 16 78/63 99 Mechanical Ventilator 40 07/06/17 08:00 40 07/06/17 08:00 71 07/06/17 08:00 97.6 77 16 89/26 99 Mechanical Ventilator 40 07/06/17 07:32 69 16 40 07/06/17 07:00 66 16 95/59 100 Mechanical Ventilator 40 07/06/17 06:00 61 16 100/57 100 Mechanical Ventilator 40 07/06/17 05:16 74 17 40 07/06/17 05:00 62 16 86/57 100 Mechanical Ventilator 40 07/06/17 04:00 40 07/06/17 04:00 72 07/06/17 04:00 98.4 86 16 83/43 98 Mechanical Ventilator 40 07/06/17 03:00 86 17 107/64 99 Mechanical Ventilator 40 07/06/17 02:45 84 17 40 07/06/17 02:00 78 16 129/68 98 Mechanical Ventilator 40 07/06/17 01:00 77 17 115/75 100 Mechanical Ventilator 40 07/06/17 00:43 81 16 40 07/06/17 00:00 98.2 78 17 106/58 100 Mechanical Ventilator 40 07/06/17 00:00 64 07/06/17 00:00 40 07/05/17 23:00 63 16 98/58 100 Mechanical Ventilator 40 07/05/17 22:30 60 16 40 07/05/17 22:00 65 16 95/58 100 Mechanical Ventilator 40 07/05/17 21:00 67 16 99/51 100 Mechanical Ventilator 40 Intake and Output 07/06/17 07/07/17 19:00 07:00 Intake Total 1145 ml Output Total 290 ml Balance 855 ml IV Total 675 ml Tube Feeding 470 ml Output Urine Total 290 ml Stool Total 0 ml Laboratory Tests 07/06/17 04:05: White Blood Count 8.9, Red Blood Count 3.16L, Hemoglobin 10.9L, Hematocrit 32.5L , Mean Corpuscular Volume 103H, Mean Corpuscular Hemoglobin 34.6H, Mean Corpuscular Hemoglobin Concent 33.5, Red Cell Distribution Width 13.3, Platelet Count 312, Mean Platelet Volume 6.2L, Neutrophils (%) (Auto) 55.9, Lymphocytes ( %) (Auto) 31.4, Monocytes (%) (Auto) 8.6, Eosinophils (%) (Auto) 3.5H, Basophils (%) (Auto) 0.6, Sodium Level 141, Potassium Level 3.6, Chloride Level 108H, Carbon Dioxide Level 23, Anion Gap 10, Blood Urea Nitrogen 11, Creatinine 1.2, Estimat Glomerular Filtration Rate > 60, Glucose Level 112H, Calcium Level 9.2, Phosphorus Level 4.0, Magnesium Level 2.0, Total Bilirubin 0.3, Aspartate Amino Transf (AST/SGOT) 12L, Alanine Aminotransferase (ALT/SGPT) 10L, Alkaline Phosphatase 74, Total Protein 7.2, Albumin 2.6L, Globulin 4.6, Albumin/Globulin Ratio 0.6L 07/06/17 07:55: Arterial Blood pH 7.361, Arterial Blood Partial Pressure CO2 40.0, Arterial Blood Partial Pressure O2 83.7, Arterial Blood HCO3 22.1, Arterial Blood Oxygen Saturation 95.4, Arterial Blood Base Excess -3.0, Anthony Test Positive Height (Feet): 5 Height (Inches): 11.00 Weight (Pounds): 117 Objective HEAD AND NECK: No JVP. No LAD. No thyromegaly. Extraocular movements intact. Pupils are reactive to light and accommodation. LUNGS: Clear to auscultation. CARDIAC: Regular rate and rhythm. S1 and S2. No murmur. No rub. ABDOMEN: Soft, nontender, and nondistended. EXTREMITIES: No edema. No clubbing. No cyanosis. NEUROLOGIC: The patient opened up his eyes, not following verbal commands. RANCHO SYKES Jul 06, 2017 20:46
--- NOTE | 2017-07-06 23:56 | Infectious Diseases Prog Note ---
Assessment/Plan Problems: (1) Sepsis Assessment & Plan: Due to pneumonia probably. WBC better. (2) Acute respiratory failure Assessment & Plan: In the setting of lung collapse. Remains very tenuous. (3) HCAP (healthcare-associated pneumonia) Assessment & Plan: Follow-up SCx. Continue with vancomycin IV and Zosyn. (4) Collapse of left lung (5) Pyuria Assessment & Plan: UCx noted. On zosyn already. Subjective Allergies: Coded Allergies: CHLORPROMAZINE (Verified Allergy, Unknown, 06/23/17) ERYTHROMYCIN BASE (Verified Allergy, Unknown, 06/23/17) Uncoded Allergies: TAPE (Allergy, Unknown, 06/23/17) Objective Vital Signs Last 24 Hour Vital Signs Date Time Temp Pulse Resp B/P (MAP) Pulse Ox O2 Delivery O2 Flow Rate FiO2 07/06/17 23:09 60 16 30 07/06/17 23:00 60 16 93/50 100 Mechanical Ventilator 30 07/06/17 22:00 60 16 86/44 99 Mechanical Ventilator 30 07/06/17 21:00 63 16 81/51 99 Mechanical Ventilator 30 07/06/17 20:53 61 16 30 07/06/17 20:00 30 07/06/17 20:00 60 07/06/17 20:00 97.7 60 16 99/53 100 Mechanical Ventilator 30 07/06/17 19:00 60 16 94/52 100 Mechanical Ventilator 30 07/06/17 18:53 60 17 30 07/06/17 18:00 60 16 94/52 100 Mechanical Ventilator 40 07/06/17 17:16 71 16 30 07/06/17 17:00 67 16 92/40 100 Mechanical Ventilator 40 07/06/17 16:00 97.6 67 16 92/40 100 Mechanical Ventilator 40 07/06/17 16:00 30 07/06/17 16:00 67 07/06/17 15:31 61 16 30 07/06/17 15:00 67 16 93/48 100 Mechanical Ventilator 40 07/06/17 14:00 67 16 103/50 100 Mechanical Ventilator 40 07/06/17 13:04 74 16 30 07/06/17 13:00 61 16 94/55 100 Mechanical Ventilator 40 07/06/17 12:00 97.9 64 16 92/48 100 Mechanical Ventilator 40 07/06/17 12:00 30 07/06/17 12:00 60 07/06/17 11:12 64 16 30 07/06/17 11:00 64 16 94/43 100 Mechanical Ventilator 40 07/06/17 10:00 35 07/06/17 10:00 60 16 90/46 99 Mechanical Ventilator 40 07/06/17 09:29 68 16 35 07/06/17 09:00 69 16 78/63 99 Mechanical Ventilator 40 07/06/17 08:00 40 07/06/17 08:00 71 07/06/17 08:00 97.6 77 16 89/26 99 Mechanical Ventilator 40 07/06/17 07:32 69 16 40 07/06/17 07:00 66 16 95/59 100 Mechanical Ventilator 40 07/06/17 06:00 61 16 100/57 100 Mechanical Ventilator 40 07/06/17 05:16 74 17 40 07/06/17 05:00 62 16 86/57 100 Mechanical Ventilator 40 07/06/17 04:00 40 07/06/17 04:00 72 07/06/17 04:00 98.4 86 16 83/43 98 Mechanical Ventilator 40 07/06/17 03:00 86 17 107/64 99 Mechanical Ventilator 40 07/06/17 02:45 84 17 40 07/06/17 02:00 78 16 129/68 98 Mechanical Ventilator 40 07/06/17 01:00 77 17 115/75 100 Mechanical Ventilator 40 07/06/17 00:43 81 16 40 07/06/17 00:00 98.2 78 17 106/58 100 Mechanical Ventilator 40 07/06/17 00:00 64 07/06/17 00:00 40 Height (Feet): 5 Height (Inches): 11.00 Weight (Pounds): 117 Microbiology Date/Time Source Procedure Growth Status 07/04/17 14:00 Sputum Gram Stain - Final Resulted 07/04/17 14:00 Sputum Culture - Preliminary Staphylococcus Aureus Resulted Laboratory Tests Test 07/06/17 04:05 07/06/17 07:55 White Blood Count 8.9 K/UL (4.8-10.8) Red Blood Count 3.16 M/UL (4.70-6.10) L Hemoglobin 10.9 G/DL (14.2-18.0) L Hematocrit 32.5 % (42.0-52.0) L Mean Corpuscular Volume 103 FL (80-99) H Mean Corpuscular Hemoglobin 34.6 PG (27.0-31.0) H Mean Corpuscular Hemoglobin Concent 33.5 G/DL (32.0-36.0) Red Cell Distribution Width 13.3 % (11.6-14.8) Platelet Count 312 K/UL (150-450) Mean Platelet Volume 6.2 FL (6.5-10.1) L Neutrophils (%) (Auto) 55.9 % (45.0-75.0) Lymphocytes (%) (Auto) 31.4 % (20.0-45.0) Monocytes (%) (Auto) 8.6 % (1.0-10.0) Eosinophils (%) (Auto) 3.5 % (0.0-3.0) H Basophils (%) (Auto) 0.6 % (0.0-2.0) Sodium Level 141 MMOL/L (136-145) Potassium Level 3.6 MMOL/L (3.5-5.1) Chloride Level 108 MMOL/L (98-107) H Carbon Dioxide Level 23 MMOL/L (21-32) Anion Gap 10 mmol/L (5-15) Blood Urea Nitrogen 11 mg/dL (7-18) Creatinine 1.2 MG/DL (0.55-1.30) Estimat Glomerular Filtration Rate > 60 mL/min (>60) Glucose Level 112 MG/DL (74-106) H Calcium Level 9.2 MG/DL (8.5-10.1) Phosphorus Level 4.0 MG/DL (2.5-4.9) Magnesium Level 2.0 MG/DL (1.8-2.4) Total Bilirubin 0.3 MG/DL (0.2-1.0) Aspartate Amino Transf (AST/SGOT) 12 U/L (15-37) L Alanine Aminotransferase (ALT/SGPT) 10 U/L (12-78) L Alkaline Phosphatase 74 U/L (46-116) Total Protein 7.2 G/DL (6.4-8.2) Albumin 2.6 G/DL (3.4-5.0) L Globulin 4.6 g/dL Albumin/Globulin Ratio 0.6 (1.0-2.7) L Arterial Blood pH 7.361 (7.350-7.450) Arterial Blood Partial Pressure CO2 40.0 mmHg (35.0-45.0) Arterial Blood Partial Pressure O2 83.7 mmHg (75.0-100.0) Arterial Blood HCO3 22.1 mmol/L (22.0-26.0) Arterial Blood Oxygen Saturation 95.4 % (92.0-98.0) Arterial Blood Base Excess -3.0 Anthony Test Positive Current Medications Medications (Trade) Dose Ordered Sig/Karen Route PRN Reason Start Time Stop Time Status Last Admin Dose Admin Carbamazepine (TEGretol) 200 mg FOUR TIMES A DAY ORAL 07/02/17 09:00 07/23/17 12:59 07/06/17 20:37 Dextrose (Dextrose 50%) STAT PRN IV Hypoglycemia 07/02/17 12:00 07/25/17 11:59 Dextrose/Sodium Chloride 1,000 ml @ 75 mls/hr [id number] IV 07/03/17 13:00 08/02/17 12:59 07/06/17 20:36 Docusate Sodium (Colace) 100 mg DAILY ORAL 07/02/17 09:00 07/29/17 08:59 07/06/17 08:53 Dopamine HCl/ Dextrose 250 ml @ 0 mls/hr Q24H IV 07/03/17 15:00 08/02/17 14:59 07/03/17 15:15 Heparin Sodium (Porcine) (Heparin 5000 units/ml) 5,000 units EVERY 12 HOURS SUBQ 07/02/17 09:00 07/23/17 20:59 07/06/17 20:39 Levetiracetam (Keppra) 500 mg Q12HR ORAL 07/02/17 09:00 07/23/17 20:59 07/06/17 20:37 Lorazepam (Ativan 2mg/ml 1ml) 2 mg Q4H PRN IV For Anxiety 07/02/17 00:15 07/08/17 12:14 07/06/17 02:08 Methylprednisolone Sodium Succinate (Solu-MEDROL) 60 mg DAILY IV 07/02/17 09:00 07/23/17 17:59 07/06/17 08:53 Morphine Sulfate (Morphine Sulfate) 2 mg Q4H PRN IVP Moderate Pain (Pain Scale 4-6) 07/04/17 16:15 07/11/17 16:14 Morphine Sulfate (Morphine Sulfate) 4 mg Q4H PRN IVP Severe Pain (Pain Scale 7-10) 07/02/17 00:15 07/08/17 12:14 Nitroglycerin (Ntg) 0.4 mg Q5M X 3 DOSES PRN SL Prn Chest Pain 07/01/17 23:45 07/23/17 13:29 Olanzapine (ZyPREXA) 20 mg BEDTIME ORAL 07/02/17 21:00 07/24/17 08:59 07/06/17 20:37 Ondansetron HCl (Zofran) 4 mg Q6H PRN IVP Nausea & Vomiting 07/02/17 00:00 07/23/17 11:59 Pantoprazole (Protonix) 40 mg DAILY IV 07/02/17 09:00 08/01/17 08:59 07/06/17 08:53 Piperacillin/ Tazobactam/ Dextrose 50 ml @ 12.5 mls/hr Q8H IVPB 07/05/17 22:00 07/07/17 23:59 07/06/17 22:08 Theophylline (Dane-Dur) 100 mg EVERY 12 HOURS ORAL 07/02/17 09:00 07/23/17 20:59 07/06/17 20:37 Vancomycin HCl (Vanco rx to dose) 1 ea DAILY PRN MISC Per rx protocol 07/02/17 09:00 07/28/17 12:59 Vancomycin/Sodium Chloride 250 ml @ 166.667 mls/hr Q24H IVPB 07/03/17 14:00 07/08/17 13:59 07/06/17 15:02 SHEKHAR MERAZ Jul 06, 2017 23:56
[2017-07-07] VITALS (24 sets, daily range): BP systolic 84–118; BP diastolic 41–61
--- NOTE | 2017-07-07 03:45 | Consultation ---
DATE OF CONSULTATION: 07/06/2017 HISTORY OF PRESENT ILLNESS: This is a 71-year-old male patient with respiratory failure. This patient has been diagnosed to have paranoid schizophrenia and he is sent in from [facility] for this reason, but he developed mental illness, he does require consistent psychiatric followup treatment. SOCIAL HISTORY: He lives in [facility] and financially supported by [facility] and Medicare. ALLERGIES: The patient has allergies to chlorpromazine and erythromycin. Currently, I saw the patient in the ICU, but he is still confused and disorganized, altered mental status, very poor historian because of his medical illness. Cognition has declined below baseline. PSYCHIATRIC HISTORY: Paranoid schizophrenia. He has had psychiatric admissions before. SUBSTANCE ABUSE HISTORY: Denies drug and alcohol use. MENTAL STATUS EXAMINATION: The patient is a 71-year-old male with psychomotor retardation. Mood is depressed. Affect guarded and restricted. Thought process is disorganized and illogical. Denies any current suicidal or homicidal thoughts. Insight and judgment is poor. DIAGNOSIS: Paranoid schizophrenia with acute exacerbation. PLAN: Plan for this patient is to treat him with psychotropic medications to stabilize his mood and encouraged him to interact appropriately with staff and other patients. Chart reviewed and discussed with staff. Seen and assessed at the bedside. He will continue to be followed by Psychiatry throughout the hospital course. Devon Castillo M.D. DR: LAWRENCE JOB#: [id number] CC:
--- NOTE | 2017-07-07 03:45 | Consultation ---
DATE OF CONSULTATION: 07/06/2017 HISTORY OF PRESENT ILLNESS: This is a 71-year-old male patient with respiratory failure. This patient has been diagnosed to have paranoid schizophrenia and he is sent in from [facility] for this reason, but he developed mental illness, he does require consistent psychiatric followup treatment. SOCIAL HISTORY: He lives in [facility] and financially supported by [facility] and Medicare. ALLERGIES: The patient has allergies to chlorpromazine and erythromycin. Currently, I saw the patient in the ICU, but he is still confused and disorganized, altered mental status, very poor historian because of his medical illness. Cognition has declined below baseline. PSYCHIATRIC HISTORY: Paranoid schizophrenia. He has had psychiatric admissions before. SUBSTANCE ABUSE HISTORY: Denies drug and alcohol use. MENTAL STATUS EXAMINATION: The patient is a 71-year-old male with psychomotor retardation. Mood is depressed. Affect guarded and restricted. Thought process is disorganized and illogical. Denies any current suicidal or homicidal thoughts. Insight and judgment is poor. DIAGNOSIS: Paranoid schizophrenia with acute exacerbation. PLAN: Plan for this patient is to treat him with psychotropic medications to stabilize his mood and encouraged him to interact appropriately with staff and other patients. Chart reviewed and discussed with staff. Seen and assessed at the bedside. He will continue to be followed by Psychiatry throughout the hospital course. Devon Castillo M.D. DR: LAWRENCE JOB#: [id number] CC:
[2017-07-07 04:50] LABS: BASOPHILS % (AUTO) 0.8 % (0.0-2.0); EOSINOPHILS % (AUTO) 4.7 % (0.0-3.0); HEMATOCRIT 31.9 % (42.0-52.0); HEMOGLOBIN 10.8 G/DL (14.2-18.0); LYMPHOCYTES % (AUTO) 36.4 % (20.0-45.0); MEAN CORPUSCULAR VOLUME 103 FL (80-99); NEUTROPHILS % (AUTO) 50.2 % (45.0-75.0); PLATELET COUNT 272 K/UL (150-450); RED BLOOD COUNT 3.11 M/UL (4.70-6.10); RED CELL DISTRIBUTION WIDTH 13.4 % (11.6-14.8); WHITE BLOOD COUNT 9.5 K/UL (4.8-10.8)
[2017-07-07 05:28] LABS: ALANINE AMINOTRANSFERASE 10 U/L (12-78); ALBUMIN 2.3 G/DL (3.4-5.0); ALBUMIN/GLOBULIN RATIO 0.5 (1.0-2.7); ALKALINE PHOSPHATASE 65 U/L (46-116); ANION GAP 9 mmol/L (5-15); ASPARTATE AMINO TRANSFERASE 11 U/L (15-37); BILIRUBIN,TOTAL 0.3 MG/DL (0.2-1.0); BLOOD UREA NITROGEN 13 mg/dL (7-18); CALCIUM 8.6 MG/DL (8.5-10.1); CARBON DIOXIDE 23 MMOL/L (21-32); CHLORIDE 107 MMOL/L (98-107); CREATININE 1.1 MG/DL (0.55-1.30); POTASSIUM 3.5 MMOL/L (3.5-5.1); SODIUM 139 MMOL/L (136-145)
[2017-07-07 05:33] LABS: PHOSPHORUS 3.5 MG/DL (2.5-4.9)
[2017-07-07] MEDS: Zosyn 3.375gm/50ml Premix 50 ML IVPB SCH ×3 (05:41→22:08)
[2017-07-07] MEDS ORDERED: Tubing IV Secondary IV ONE ×2 (08:42→17:12)
[2017-07-07] MEDS ORDERED: NS 275ml ONE ×2 (08:42→17:12)
[2017-07-07] MEDS ORDERED: D5 1/2NS 1000ml IV ONE (08:42)
[2017-07-07] MEDS: Theophylline ER 100mg ORAL SCH ×2 (08:51→20:38)
[2017-07-07] MEDS: Pantoprazole Inj IV SCH (08:51)
[2017-07-07] MEDS: Solu-MEDROL 125mg Inj IV SCH (08:51)
[2017-07-07] MEDS: carBAMazepine 200mg tab ORAL SCH ×4 (08:51→20:38)
[2017-07-07] MEDS: Docusate 100mg cap ORAL SCH (08:51)
[2017-07-07] MEDS: Heparin 5000 units/ml inj SUBQ SCH ×2 (08:54→20:39)
--- NOTE | 2017-07-07 10:00 | General Progress Note ---
Assessment/Plan Problem List: (1) Respiratory failure ICD Codes: J96.90 - Respiratory failure, unspecified, unspecified whether with hypoxia or hypercapnia SNOMED: 967426970 (2) Sepsis ICD Codes: A41.9 - Sepsis, unspecified organism SNOMED: 77255663 (3) UTI (urinary tract infection) ICD Codes: N39.0 - Urinary tract infection, site not specified SNOMED: 47319637 (4) Schizophrenia ICD Codes: F20.9 - Schizophrenia, unspecified SNOMED: 33531899 (5) History of pacemaker ICD Codes: Z95.0 - Presence of cardiac pacemaker SNOMED: 183207678 (6) Limited mobility ICD Codes: Z74.09 - Other reduced mobility SNOMED: 4158590 Status: unchanged Assessment/Plan o2 pul tx ot pt diet abx cbc bmp am ltach eval Subjective Constitutional: Reports: weakness Allergies: Coded Allergies: CHLORPROMAZINE (Verified Allergy, Unknown, 06/23/17) ERYTHROMYCIN BASE (Verified Allergy, Unknown, 06/23/17) Uncoded Allergies: TAPE (Allergy, Unknown, 06/23/17) All Systems: reviewed and negative except above Subjective intubated sedated in icu Objective Last 24 Hour Vital Signs Date Time Temp Pulse Resp B/P (MAP) Pulse Ox O2 Delivery O2 Flow Rate FiO2 07/07/17 09:21 81 16 30 07/07/17 08:00 60 07/07/17 08:00 98.0 61 16 84/42 99 Mechanical Ventilator 30 07/07/17 08:00 30 07/07/17 07:00 60 16 117/54 99 Mechanical Ventilator 30 07/07/17 06:59 60 16 30 07/07/17 06:00 63 16 89/48 99 Mechanical Ventilator 30 07/07/17 06:00 69 07/07/17 05:10 63 16 30 07/07/17 05:00 68 16 100/53 99 Mechanical Ventilator 30 07/07/17 04:00 97.7 69 16 103/47 97 Mechanical Ventilator 30 07/07/17 04:00 30 07/07/17 03:00 60 16 30 07/07/17 03:00 72 16 118/49 100 Mechanical Ventilator 30 07/07/17 02:00 60 16 91/44 100 Mechanical Ventilator 30 07/07/17 01:10 55 16 30 07/07/17 01:00 60 16 112/53 100 Mechanical Ventilator 30 07/07/17 00:00 97.9 60 16 114/60 98 Mechanical Ventilator 30 07/06/17 23:09 60 16 30 07/06/17 23:00 60 16 93/50 100 Mechanical Ventilator 30 07/06/17 22:00 60 16 86/44 99 Mechanical Ventilator 30 07/06/17 21:00 63 16 81/51 99 Mechanical Ventilator 30 07/06/17 20:53 61 16 30 07/06/17 20:00 30 07/06/17 20:00 60 07/06/17 20:00 97.7 60 16 99/53 100 Mechanical Ventilator 30 07/06/17 19:00 60 16 94/52 100 Mechanical Ventilator 30 07/06/17 18:53 60 17 30 07/06/17 18:00 60 16 94/52 100 Mechanical Ventilator 40 07/06/17 17:16 71 16 30 07/06/17 17:00 67 16 92/40 100 Mechanical Ventilator 40 07/06/17 16:00 97.6 67 16 92/40 100 Mechanical Ventilator 40 07/06/17 16:00 30 07/06/17 16:00 67 07/06/17 15:31 61 16 30 07/06/17 15:00 67 16 93/48 100 Mechanical Ventilator 40 07/06/17 14:00 67 16 103/50 100 Mechanical Ventilator 40 07/06/17 13:04 74 16 30 07/06/17 13:00 61 16 94/55 100 Mechanical Ventilator 40 07/06/17 12:00 97.9 64 16 92/48 100 Mechanical Ventilator 40 07/06/17 12:00 30 07/06/17 12:00 60 07/06/17 11:12 64 16 30 07/06/17 11:00 64 16 94/43 100 Mechanical Ventilator 40 Intake and Output 07/07/17 07/08/17 19:00 07:00 Intake Total 65 ml Output Total 100 ml Balance -35 ml Tube Feeding 65 ml Output Urine Total 100 ml Laboratory Tests 07/07/17 04:05: White Blood Count 9.5, Red Blood Count 3.11L, Hemoglobin 10.8L, Hematocrit 31.9L , Mean Corpuscular Volume 103H, Mean Corpuscular Hemoglobin 34.8H, Mean Corpuscular Hemoglobin Concent 33.9, Red Cell Distribution Width 13.4, Platelet Count 272, Mean Platelet Volume 6.4L, Neutrophils (%) (Auto) 50.2, Lymphocytes ( %) (Auto) 36.4, Monocytes (%) (Auto) 8.0, Eosinophils (%) (Auto) 4.7H, Basophils (%) (Auto) 0.8, Sodium Level 139, Potassium Level 3.5, Chloride Level 107, Carbon Dioxide Level 23, Anion Gap 9, Blood Urea Nitrogen 13, Creatinine 1.1, Estimat Glomerular Filtration Rate > 60, Glucose Level 116H, Calcium Level 8.6, Phosphorus Level 3.5, Magnesium Level 1.8, Total Bilirubin 0.3, Aspartate Amino Transf (AST/SGOT) 11L, Alanine Aminotransferase (ALT/SGPT) 10L, Alkaline Phosphatase 65, Total Protein 6.5, Albumin 2.3L, Globulin 4.2, Albumin/Globulin Ratio 0.5L Height (Feet): 5 Height (Inches): 11.00 Weight (Pounds): 120 General Appearance: lethargic EENT: normal ENT inspection Neck: normal inspection Cardiovascular: normal peripheral pulses, normal rate, regular rhythm Respiratory/Chest: chest wall non-tender, lungs clear, normal breath sounds Abdomen: normal bowel sounds, non tender, soft Extremities: normal inspection Edema: no edema noted Arm (L), no edema noted Arm (R), no edema noted Leg (L), no edema noted Leg (R), no edema noted Pedal (L), no edema noted Pedal (R), no edema noted Generalized Neurologic: motor weakness Skin: normal pigmentation, warm/dry QUINTON HUMPHRIES Jul 07, 2017 10:00
--- NOTE | 2017-07-07 10:00 | General Progress Note ---
Assessment/Plan Problem List: (1) Respiratory failure ICD Codes: J96.90 - Respiratory failure, unspecified, unspecified whether with hypoxia or hypercapnia SNOMED: 130668900 (2) Sepsis ICD Codes: A41.9 - Sepsis, unspecified organism SNOMED: 06731736 (3) UTI (urinary tract infection) ICD Codes: N39.0 - Urinary tract infection, site not specified SNOMED: 85192436 (4) Schizophrenia ICD Codes: F20.9 - Schizophrenia, unspecified SNOMED: 55236481 (5) History of pacemaker ICD Codes: Z95.0 - Presence of cardiac pacemaker SNOMED: 435762140 (6) Limited mobility ICD Codes: Z74.09 - Other reduced mobility SNOMED: 2544168 Status: unchanged Assessment/Plan o2 pul tx ot pt diet abx cbc bmp am ltach eval Subjective Constitutional: Reports: weakness Allergies: Coded Allergies: CHLORPROMAZINE (Verified Allergy, Unknown, 06/23/17) ERYTHROMYCIN BASE (Verified Allergy, Unknown, 06/23/17) Uncoded Allergies: TAPE (Allergy, Unknown, 06/23/17) All Systems: reviewed and negative except above Subjective intubated sedated in icu Objective Last 24 Hour Vital Signs Date Time Temp Pulse Resp B/P (MAP) Pulse Ox O2 Delivery O2 Flow Rate FiO2 07/07/17 09:21 81 16 30 07/07/17 08:00 60 07/07/17 08:00 98.0 61 16 84/42 99 Mechanical Ventilator 30 07/07/17 08:00 30 07/07/17 07:00 60 16 117/54 99 Mechanical Ventilator 30 07/07/17 06:59 60 16 30 07/07/17 06:00 63 16 89/48 99 Mechanical Ventilator 30 07/07/17 06:00 69 07/07/17 05:10 63 16 30 07/07/17 05:00 68 16 100/53 99 Mechanical Ventilator 30 07/07/17 04:00 97.7 69 16 103/47 97 Mechanical Ventilator 30 07/07/17 04:00 30 07/07/17 03:00 60 16 30 07/07/17 03:00 72 16 118/49 100 Mechanical Ventilator 30 07/07/17 02:00 60 16 91/44 100 Mechanical Ventilator 30 07/07/17 01:10 55 16 30 07/07/17 01:00 60 16 112/53 100 Mechanical Ventilator 30 07/07/17 00:00 97.9 60 16 114/60 98 Mechanical Ventilator 30 07/06/17 23:09 60 16 30 07/06/17 23:00 60 16 93/50 100 Mechanical Ventilator 30 07/06/17 22:00 60 16 86/44 99 Mechanical Ventilator 30 07/06/17 21:00 63 16 81/51 99 Mechanical Ventilator 30 07/06/17 20:53 61 16 30 07/06/17 20:00 30 07/06/17 20:00 60 07/06/17 20:00 97.7 60 16 99/53 100 Mechanical Ventilator 30 07/06/17 19:00 60 16 94/52 100 Mechanical Ventilator 30 07/06/17 18:53 60 17 30 07/06/17 18:00 60 16 94/52 100 Mechanical Ventilator 40 07/06/17 17:16 71 16 30 07/06/17 17:00 67 16 92/40 100 Mechanical Ventilator 40 07/06/17 16:00 97.6 67 16 92/40 100 Mechanical Ventilator 40 07/06/17 16:00 30 07/06/17 16:00 67 07/06/17 15:31 61 16 30 07/06/17 15:00 67 16 93/48 100 Mechanical Ventilator 40 07/06/17 14:00 67 16 103/50 100 Mechanical Ventilator 40 07/06/17 13:04 74 16 30 07/06/17 13:00 61 16 94/55 100 Mechanical Ventilator 40 07/06/17 12:00 97.9 64 16 92/48 100 Mechanical Ventilator 40 07/06/17 12:00 30 07/06/17 12:00 60 07/06/17 11:12 64 16 30 07/06/17 11:00 64 16 94/43 100 Mechanical Ventilator 40 Intake and Output 07/07/17 07/08/17 19:00 07:00 Intake Total 65 ml Output Total 100 ml Balance -35 ml Tube Feeding 65 ml Output Urine Total 100 ml Laboratory Tests 07/07/17 04:05: White Blood Count 9.5, Red Blood Count 3.11L, Hemoglobin 10.8L, Hematocrit 31.9L , Mean Corpuscular Volume 103H, Mean Corpuscular Hemoglobin 34.8H, Mean Corpuscular Hemoglobin Concent 33.9, Red Cell Distribution Width 13.4, Platelet Count 272, Mean Platelet Volume 6.4L, Neutrophils (%) (Auto) 50.2, Lymphocytes ( %) (Auto) 36.4, Monocytes (%) (Auto) 8.0, Eosinophils (%) (Auto) 4.7H, Basophils (%) (Auto) 0.8, Sodium Level 139, Potassium Level 3.5, Chloride Level 107, Carbon Dioxide Level 23, Anion Gap 9, Blood Urea Nitrogen 13, Creatinine 1.1, Estimat Glomerular Filtration Rate > 60, Glucose Level 116H, Calcium Level 8.6, Phosphorus Level 3.5, Magnesium Level 1.8, Total Bilirubin 0.3, Aspartate Amino Transf (AST/SGOT) 11L, Alanine Aminotransferase (ALT/SGPT) 10L, Alkaline Phosphatase 65, Total Protein 6.5, Albumin 2.3L, Globulin 4.2, Albumin/Globulin Ratio 0.5L Height (Feet): 5 Height (Inches): 11.00 Weight (Pounds): 120 General Appearance: lethargic EENT: normal ENT inspection Neck: normal inspection Cardiovascular: normal peripheral pulses, normal rate, regular rhythm Respiratory/Chest: chest wall non-tender, lungs clear, normal breath sounds Abdomen: normal bowel sounds, non tender, soft Extremities: normal inspection Edema: no edema noted Arm (L), no edema noted Arm (R), no edema noted Leg (L), no edema noted Leg (R), no edema noted Pedal (L), no edema noted Pedal (R), no edema noted Generalized Neurologic: motor weakness Skin: normal pigmentation, warm/dry QUINTON HUMPHRIES Jul 07, 2017 10:00
--- NOTE | 2017-07-07 10:00 | General Progress Note ---
Assessment/Plan Problem List: (1) Respiratory failure ICD Codes: J96.90 - Respiratory failure, unspecified, unspecified whether with hypoxia or hypercapnia SNOMED: 792134295 (2) Sepsis ICD Codes: A41.9 - Sepsis, unspecified organism SNOMED: 68070362 (3) UTI (urinary tract infection) ICD Codes: N39.0 - Urinary tract infection, site not specified SNOMED: 01151077 (4) Schizophrenia ICD Codes: F20.9 - Schizophrenia, unspecified SNOMED: 31525626 (5) History of pacemaker ICD Codes: Z95.0 - Presence of cardiac pacemaker SNOMED: 261503567 (6) Limited mobility ICD Codes: Z74.09 - Other reduced mobility SNOMED: 9361402 Status: unchanged Assessment/Plan o2 pul tx ot pt diet abx cbc bmp am ltach eval Subjective Constitutional: Reports: weakness Allergies: Coded Allergies: CHLORPROMAZINE (Verified Allergy, Unknown, 06/23/17) ERYTHROMYCIN BASE (Verified Allergy, Unknown, 06/23/17) Uncoded Allergies: TAPE (Allergy, Unknown, 06/23/17) All Systems: reviewed and negative except above Subjective intubated sedated in icu Objective Last 24 Hour Vital Signs Date Time Temp Pulse Resp B/P (MAP) Pulse Ox O2 Delivery O2 Flow Rate FiO2 07/07/17 09:21 81 16 30 07/07/17 08:00 60 07/07/17 08:00 98.0 61 16 84/42 99 Mechanical Ventilator 30 07/07/17 08:00 30 07/07/17 07:00 60 16 117/54 99 Mechanical Ventilator 30 07/07/17 06:59 60 16 30 07/07/17 06:00 63 16 89/48 99 Mechanical Ventilator 30 07/07/17 06:00 69 07/07/17 05:10 63 16 30 07/07/17 05:00 68 16 100/53 99 Mechanical Ventilator 30 07/07/17 04:00 97.7 69 16 103/47 97 Mechanical Ventilator 30 07/07/17 04:00 30 07/07/17 03:00 60 16 30 07/07/17 03:00 72 16 118/49 100 Mechanical Ventilator 30 07/07/17 02:00 60 16 91/44 100 Mechanical Ventilator 30 07/07/17 01:10 55 16 30 07/07/17 01:00 60 16 112/53 100 Mechanical Ventilator 30 07/07/17 00:00 97.9 60 16 114/60 98 Mechanical Ventilator 30 07/06/17 23:09 60 16 30 07/06/17 23:00 60 16 93/50 100 Mechanical Ventilator 30 07/06/17 22:00 60 16 86/44 99 Mechanical Ventilator 30 07/06/17 21:00 63 16 81/51 99 Mechanical Ventilator 30 07/06/17 20:53 61 16 30 07/06/17 20:00 30 07/06/17 20:00 60 07/06/17 20:00 97.7 60 16 99/53 100 Mechanical Ventilator 30 07/06/17 19:00 60 16 94/52 100 Mechanical Ventilator 30 07/06/17 18:53 60 17 30 07/06/17 18:00 60 16 94/52 100 Mechanical Ventilator 40 07/06/17 17:16 71 16 30 07/06/17 17:00 67 16 92/40 100 Mechanical Ventilator 40 07/06/17 16:00 97.6 67 16 92/40 100 Mechanical Ventilator 40 07/06/17 16:00 30 07/06/17 16:00 67 07/06/17 15:31 61 16 30 07/06/17 15:00 67 16 93/48 100 Mechanical Ventilator 40 07/06/17 14:00 67 16 103/50 100 Mechanical Ventilator 40 07/06/17 13:04 74 16 30 07/06/17 13:00 61 16 94/55 100 Mechanical Ventilator 40 07/06/17 12:00 97.9 64 16 92/48 100 Mechanical Ventilator 40 07/06/17 12:00 30 07/06/17 12:00 60 07/06/17 11:12 64 16 30 07/06/17 11:00 64 16 94/43 100 Mechanical Ventilator 40 Intake and Output 07/07/17 07/08/17 19:00 07:00 Intake Total 65 ml Output Total 100 ml Balance -35 ml Tube Feeding 65 ml Output Urine Total 100 ml Laboratory Tests 07/07/17 04:05: White Blood Count 9.5, Red Blood Count 3.11L, Hemoglobin 10.8L, Hematocrit 31.9L , Mean Corpuscular Volume 103H, Mean Corpuscular Hemoglobin 34.8H, Mean Corpuscular Hemoglobin Concent 33.9, Red Cell Distribution Width 13.4, Platelet Count 272, Mean Platelet Volume 6.4L, Neutrophils (%) (Auto) 50.2, Lymphocytes ( %) (Auto) 36.4, Monocytes (%) (Auto) 8.0, Eosinophils (%) (Auto) 4.7H, Basophils (%) (Auto) 0.8, Sodium Level 139, Potassium Level 3.5, Chloride Level 107, Carbon Dioxide Level 23, Anion Gap 9, Blood Urea Nitrogen 13, Creatinine 1.1, Estimat Glomerular Filtration Rate > 60, Glucose Level 116H, Calcium Level 8.6, Phosphorus Level 3.5, Magnesium Level 1.8, Total Bilirubin 0.3, Aspartate Amino Transf (AST/SGOT) 11L, Alanine Aminotransferase (ALT/SGPT) 10L, Alkaline Phosphatase 65, Total Protein 6.5, Albumin 2.3L, Globulin 4.2, Albumin/Globulin Ratio 0.5L Height (Feet): 5 Height (Inches): 11.00 Weight (Pounds): 120 General Appearance: lethargic EENT: normal ENT inspection Neck: normal inspection Cardiovascular: normal peripheral pulses, normal rate, regular rhythm Respiratory/Chest: chest wall non-tender, lungs clear, normal breath sounds Abdomen: normal bowel sounds, non tender, soft Extremities: normal inspection Edema: no edema noted Arm (L), no edema noted Arm (R), no edema noted Leg (L), no edema noted Leg (R), no edema noted Pedal (L), no edema noted Pedal (R), no edema noted Generalized Neurologic: motor weakness Skin: normal pigmentation, warm/dry QUINTON HUMPHRIES Jul 07, 2017 10:00
--- NOTE | 2017-07-07 11:23 | Pulmonolgy Critical Care Note ---
Critical Care - Asmt/Plan Problems: (1) Acute encephalopathy (2) Acute respiratory failure (3) Collapse of left lung (4) UTI (urinary tract infection) (5) Schizophrenia (6) History of pacemaker (7) Fever Respiratory: monitor respiratory rate, adjust FIO2, CXR, weaning trial, other - for bronch tomorrow Cardiac: continue to monitor HR/BP Renal: F/U I&O, keep IV fluid Infectious Disease: check cultures Gastrointestinal: continue feedings/current rate Endocrine: monitor blood sugar, check HgA1C Hematologic: monitor H/H Neurologic: PRN Morphine Prophylaxis: Protonix Notes Reviewed: cardio Discussed with: nurses, consultants, registered nurse hh case managercivil engineering project manager - Objective Last 24 Hour Vital Signs Date Time Temp Pulse Resp B/P (MAP) Pulse Ox O2 Delivery O2 Flow Rate FiO2 07/07/17 10:00 67 16 91/48 97 Mechanical Ventilator 30 07/07/17 09:21 81 16 30 07/07/17 09:00 63 16 114/58 98 Mechanical Ventilator 30 07/07/17 08:00 60 07/07/17 08:00 98.0 61 16 84/42 99 Mechanical Ventilator 30 07/07/17 08:00 30 07/07/17 07:00 60 16 117/54 99 Mechanical Ventilator 30 07/07/17 06:59 60 16 30 07/07/17 06:00 63 16 89/48 99 Mechanical Ventilator 30 07/07/17 06:00 69 07/07/17 05:10 63 16 30 07/07/17 05:00 68 16 100/53 99 Mechanical Ventilator 30 07/07/17 04:00 97.7 69 16 103/47 97 Mechanical Ventilator 30 07/07/17 04:00 30 07/07/17 03:00 60 16 30 07/07/17 03:00 72 16 118/49 100 Mechanical Ventilator 30 07/07/17 02:00 60 16 91/44 100 Mechanical Ventilator 30 07/07/17 01:10 55 16 30 07/07/17 01:00 60 16 112/53 100 Mechanical Ventilator 30 07/07/17 00:00 97.9 60 16 114/60 98 Mechanical Ventilator 30 07/06/17 23:09 60 16 30 07/06/17 23:00 60 16 93/50 100 Mechanical Ventilator 30 07/06/17 22:00 60 16 86/44 99 Mechanical Ventilator 30 07/06/17 21:00 63 16 81/51 99 Mechanical Ventilator 30 07/06/17 20:53 61 16 30 07/06/17 20:00 30 07/06/17 20:00 60 07/06/17 20:00 97.7 60 16 99/53 100 Mechanical Ventilator 30 07/06/17 19:00 60 16 94/52 100 Mechanical Ventilator 30 07/06/17 18:53 60 17 30 07/06/17 18:00 60 16 94/52 100 Mechanical Ventilator 40 07/06/17 17:16 71 16 30 07/06/17 17:00 67 16 92/40 100 Mechanical Ventilator 40 07/06/17 16:00 97.6 67 16 92/40 100 Mechanical Ventilator 40 07/06/17 16:00 30 07/06/17 16:00 67 07/06/17 15:31 61 16 30 07/06/17 15:00 67 16 93/48 100 Mechanical Ventilator 40 07/06/17 14:00 67 16 103/50 100 Mechanical Ventilator 40 07/06/17 13:04 74 16 30 07/06/17 13:00 61 16 94/55 100 Mechanical Ventilator 40 07/06/17 12:00 97.9 64 16 92/48 100 Mechanical Ventilator 40 07/06/17 12:00 30 07/06/17 12:00 60 07/06/17 11:12 64 16 30 Status: awake Condition: critical HEENT: atraumatic, normocephalic Neck: full ROM Lungs: clear Heart: HR/BP stable, HR/BP unstable Abdomen: soft, non-tender, active bowel sounds Decubiti: location Micro: Microbiology Date/Time Source Procedure Growth Status 07/04/17 14:00 Sputum Gram Stain - Final Complete 07/04/17 14:00 Sputum Culture - Final Staphylococcus Aureus - Mrsa Usual Upper Respiratory Shelbi Complete Critical Care - Subjective ROS Limited/Unobtainable: Yes Interval Events: ET tube too high. Left lung remains collapsed, Condition: critical EKG Rhythm: Sinus Rhythm FI02: 30 Vent Support Breath Rate: 16 Vent Support Mode: AC Vent Tidal Volume: 600 Sputum Amount: Moderate PIP: 26 Tube Feeding Amount: 65 I&O: Intake and Output 07/07/17 07/08/17 19:00 07:00 Intake Total 195 ml Output Total 350 ml Balance -155 ml Tube Feeding 195 ml Output Urine Total 350 ml CXR: left collapse ET-Tube: 8.0 ET Position: 21 Labs: Laboratory Tests Test 07/07/17 04:05 07/07/17 10:00 White Blood Count 9.5 K/UL (4.8-10.8) Red Blood Count 3.11 M/UL (4.70-6.10) L Hemoglobin 10.8 G/DL (14.2-18.0) L Hematocrit 31.9 % (42.0-52.0) L Mean Corpuscular Volume 103 FL (80-99) H Mean Corpuscular Hemoglobin 34.8 PG (27.0-31.0) H Mean Corpuscular Hemoglobin Concent 33.9 G/DL (32.0-36.0) Red Cell Distribution Width 13.4 % (11.6-14.8) Platelet Count 272 K/UL (150-450) Mean Platelet Volume 6.4 FL (6.5-10.1) L Neutrophils (%) (Auto) 50.2 % (45.0-75.0) Lymphocytes (%) (Auto) 36.4 % (20.0-45.0) Monocytes (%) (Auto) 8.0 % (1.0-10.0) Eosinophils (%) (Auto) 4.7 % (0.0-3.0) H Basophils (%) (Auto) 0.8 % (0.0-2.0) Sodium Level 139 MMOL/L (136-145) Potassium Level 3.5 MMOL/L (3.5-5.1) Chloride Level 107 MMOL/L (98-107) Carbon Dioxide Level 23 MMOL/L (21-32) Anion Gap 9 mmol/L (5-15) Blood Urea Nitrogen 13 mg/dL (7-18) Creatinine 1.1 MG/DL (0.55-1.30) Estimat Glomerular Filtration Rate > 60 mL/min (>60) Glucose Level 116 MG/DL (74-106) H Calcium Level 8.6 MG/DL (8.5-10.1) Phosphorus Level 3.5 MG/DL (2.5-4.9) Magnesium Level 1.8 MG/DL (1.8-2.4) Total Bilirubin 0.3 MG/DL (0.2-1.0) Aspartate Amino Transf (AST/SGOT) 11 U/L (15-37) L Alanine Aminotransferase (ALT/SGPT) 10 U/L (12-78) L Alkaline Phosphatase 65 U/L (46-116) Total Protein 6.5 G/DL (6.4-8.2) Albumin 2.3 G/DL (3.4-5.0) L Globulin 4.2 g/dL Albumin/Globulin Ratio 0.5 (1.0-2.7) L Arterial Blood pH 7.379 (7.350-7.450) Arterial Blood Partial Pressure CO2 38.0 mmHg (35.0-45.0) Arterial Blood Partial Pressure O2 81.1 mmHg (75.0-100.0) Arterial Blood HCO3 21.9 mmol/L (22.0-26.0) L Arterial Blood Oxygen Saturation 95.2 % (92.0-98.0) Arterial Blood Base Excess -2.9 Anthony Test Positive GWEN MARTE Jul 07, 2017 11:23
--- NOTE | 2017-07-07 11:28 | Nephrology Progress Note ---
Assessment/Plan Assessment 1. hypokalemia 2. Elevated bicarbonate is in response to severe respiratory acidosis. 3. Hypertension. 4. History of chronic obstructive pulmonary disease. Plan plan to d/c IVF continue iv antibiotic monitoring renal function monitoring electrolyte replace as need avoid any NSAID Subjective Constitutional: Reports: no symptoms HEENT: Reports: no symptoms Genitourinary: Reports: no symptoms Neurologic/Psychiatric: Reports: no symptoms Subjective intubated in ICU Objective Objective Last 24 Hour Vital Signs Date Time Temp Pulse Resp B/P (MAP) Pulse Ox O2 Delivery O2 Flow Rate FiO2 07/07/17 11:19 90 19 30 07/07/17 10:00 67 16 91/48 97 Mechanical Ventilator 30 07/07/17 09:21 81 16 30 07/07/17 09:00 63 16 114/58 98 Mechanical Ventilator 30 07/07/17 08:00 60 07/07/17 08:00 98.0 61 16 84/42 99 Mechanical Ventilator 30 07/07/17 08:00 30 07/07/17 07:00 60 16 117/54 99 Mechanical Ventilator 30 07/07/17 06:59 60 16 30 07/07/17 06:00 63 16 89/48 99 Mechanical Ventilator 30 07/07/17 06:00 69 07/07/17 05:10 63 16 30 07/07/17 05:00 68 16 100/53 99 Mechanical Ventilator 30 07/07/17 04:00 97.7 69 16 103/47 97 Mechanical Ventilator 30 07/07/17 04:00 30 07/07/17 03:00 60 16 30 07/07/17 03:00 72 16 118/49 100 Mechanical Ventilator 30 07/07/17 02:00 60 16 91/44 100 Mechanical Ventilator 30 07/07/17 01:10 55 16 30 07/07/17 01:00 60 16 112/53 100 Mechanical Ventilator 30 07/07/17 00:00 97.9 60 16 114/60 98 Mechanical Ventilator 30 07/06/17 23:09 60 16 30 07/06/17 23:00 60 16 93/50 100 Mechanical Ventilator 30 07/06/17 22:00 60 16 86/44 99 Mechanical Ventilator 30 07/06/17 21:00 63 16 81/51 99 Mechanical Ventilator 30 07/06/17 20:53 61 16 30 07/06/17 20:00 30 07/06/17 20:00 60 07/06/17 20:00 97.7 60 16 99/53 100 Mechanical Ventilator 30 07/06/17 19:00 60 16 94/52 100 Mechanical Ventilator 30 07/06/17 18:53 60 17 30 07/06/17 18:00 60 16 94/52 100 Mechanical Ventilator 40 07/06/17 17:16 71 16 30 07/06/17 17:00 67 16 92/40 100 Mechanical Ventilator 40 07/06/17 16:00 97.6 67 16 92/40 100 Mechanical Ventilator 40 07/06/17 16:00 30 07/06/17 16:00 67 07/06/17 15:31 61 16 30 07/06/17 15:00 67 16 93/48 100 Mechanical Ventilator 40 07/06/17 14:00 67 16 103/50 100 Mechanical Ventilator 40 07/06/17 13:04 74 16 30 07/06/17 13:00 61 16 94/55 100 Mechanical Ventilator 40 07/06/17 12:00 97.9 64 16 92/48 100 Mechanical Ventilator 40 07/06/17 12:00 30 07/06/17 12:00 60 Intake and Output 07/07/17 07/08/17 19:00 07:00 Intake Total 195 ml Output Total 350 ml Balance -155 ml Tube Feeding 195 ml Output Urine Total 350 ml Laboratory Tests 07/07/17 04:05: White Blood Count 9.5, Red Blood Count 3.11L, Hemoglobin 10.8L, Hematocrit 31.9L , Mean Corpuscular Volume 103H, Mean Corpuscular Hemoglobin 34.8H, Mean Corpuscular Hemoglobin Concent 33.9, Red Cell Distribution Width 13.4, Platelet Count 272, Mean Platelet Volume 6.4L, Neutrophils (%) (Auto) 50.2, Lymphocytes ( %) (Auto) 36.4, Monocytes (%) (Auto) 8.0, Eosinophils (%) (Auto) 4.7H, Basophils (%) (Auto) 0.8, Sodium Level 139, Potassium Level 3.5, Chloride Level 107, Carbon Dioxide Level 23, Anion Gap 9, Blood Urea Nitrogen 13, Creatinine 1.1, Estimat Glomerular Filtration Rate > 60, Glucose Level 116H, Calcium Level 8.6, Phosphorus Level 3.5, Magnesium Level 1.8, Total Bilirubin 0.3, Aspartate Amino Transf (AST/SGOT) 11L, Alanine Aminotransferase (ALT/SGPT) 10L, Alkaline Phosphatase 65, Total Protein 6.5, Albumin 2.3L, Globulin 4.2, Albumin/Globulin Ratio 0.5L 07/07/17 10:00: Arterial Blood pH 7.379, Arterial Blood Partial Pressure CO2 38.0, Arterial Blood Partial Pressure O2 81.1, Arterial Blood HCO3 21.9L, Arterial Blood Oxygen Saturation 95.2, Arterial Blood Base Excess -2.9, Anthony Test Positive Height (Feet): 5 Height (Inches): 11.00 Weight (Pounds): 120 Objective HEAD AND NECK: No JVP. No LAD. No thyromegaly. Extraocular movements intact. Pupils are reactive to light and accommodation. LUNGS: Clear to auscultation. CARDIAC: Regular rate and rhythm. S1 and S2. No murmur. No rub. ABDOMEN: Soft, nontender, and nondistended. EXTREMITIES: No edema. No clubbing. No cyanosis. NEUROLOGIC: The patient opened up his eyes, not following verbal commands. RANCHO SYKES Jul 07, 2017 11:28
--- NOTE | 2017-07-07 12:11 | Diagnostic Imaging Report ---
Indication: Dyspnea Comparison: 07/06/17 A single view chest radiograph was obtained. Findings: Persistent dense opacification of the left hemithorax and volume loss demonstrated. Endotracheal tube again noted and appears high in location. NG tube and pacemaker noted. Impression: The endotracheal tube appears high in location. This was conveyed to the ICU nurse. The nurse states the tube was repositioned and advanced 2 cm.
[2017-07-07] MEDS: DOPamine 400mg/250ml 250 ML IV SCH (15:00)
[2017-07-07] MEDS: Vancomycin 750mg/NS 250ml IVPB SCH (15:00)
--- NOTE | 2017-07-07 20:42 | Cardiology Progress Note ---
Assessment/Plan Assessment/Plan 1. Sinus tachycardia, resolved. 2. Hypotension, due to sepsis, normal LV systolic function with LVEF at 60-65%. 3. Acute respiratory failure due to left lung collapse,s/p bronchoscopy, resolved, got extubated on venturi mask now. 4. Dual chamber pacemaker implantation, currently intrinsic atrial and ventricular activity. 5. Hypotension, ? sedatives, ?hypovolemia, ? keppra, keep hydrated. Subjective Subjective Extubated, currently on venturi mask. Sinus rhythm at 66. Objective Last 24 Hour Vital Signs Date Time Temp Pulse Resp B/P (MAP) Pulse Ox O2 Delivery O2 Flow Rate FiO2 07/07/17 20:18 15.0 07/07/17 20:00 60 22 87/50 99 Venturi Mask 55 07/07/17 19:32 Venturi Mask 14.0 55 07/07/17 19:32 100 Venturi Mask 14.0 55 07/07/17 19:00 98.1 64 22 91/52 99 Venturi Mask 55 07/07/17 18:00 71 22 102/52 99 Venturi Mask 55 07/07/17 17:00 66 22 101/46 99 Venturi Mask 55 07/07/17 16:00 30 07/07/17 16:00 97.6 66 22 97/54 99 Venturi Mask 55 07/07/17 16:00 60 07/07/17 15:00 66 22 96/53 99 Venturi Mask 55 07/07/17 14:30 99 Venturi Mask 14.0 55 07/07/17 14:00 66 22 97/54 99 Mechanical Ventilator 30 07/07/17 13:30 Venturi Mask 14.0 55 07/07/17 13:20 Venturi Mask 14.0 55 07/07/17 13:05 96 19 30 07/07/17 13:00 74 23 98/57 97 Mechanical Ventilator 30 07/07/17 12:48 61 07/07/17 12:00 30 07/07/17 12:00 97.3 66 16 101/53 98 Mechanical Ventilator 30 07/07/17 11:19 90 19 30 07/07/17 11:00 66 16 101/54 98 Mechanical Ventilator 30 07/07/17 10:00 67 16 91/48 97 Mechanical Ventilator 30 07/07/17 09:21 81 16 30 07/07/17 09:00 63 16 114/58 98 Mechanical Ventilator 30 07/07/17 08:00 60 07/07/17 08:00 98.0 61 16 84/42 99 Mechanical Ventilator 30 07/07/17 08:00 30 07/07/17 07:00 60 16 117/54 99 Mechanical Ventilator 30 07/07/17 06:59 60 16 30 07/07/17 06:00 63 16 89/48 99 Mechanical Ventilator 30 07/07/17 06:00 69 07/07/17 05:10 63 16 30 07/07/17 05:00 68 16 100/53 99 Mechanical Ventilator 30 07/07/17 04:00 97.7 69 16 103/47 97 Mechanical Ventilator 30 07/07/17 04:00 30 07/07/17 03:00 60 16 30 07/07/17 03:00 72 16 118/49 100 Mechanical Ventilator 30 07/07/17 02:00 60 16 91/44 100 Mechanical Ventilator 30 07/07/17 01:10 55 16 30 07/07/17 01:00 60 16 112/53 100 Mechanical Ventilator 30 07/07/17 00:00 97.9 60 16 114/60 98 Mechanical Ventilator 30 07/06/17 23:09 60 16 30 07/06/17 23:00 60 16 93/50 100 Mechanical Ventilator 30 07/06/17 22:00 60 16 86/44 99 Mechanical Ventilator 30 07/06/17 21:00 63 16 81/51 99 Mechanical Ventilator 30 07/06/17 20:53 61 16 30 Intake and Output 07/07/17 07/08/17 19:00 07:00 Intake Total 780 ml 65 ml Output Total 1780 ml 50 ml Balance -1000 ml 15 ml Tube Feeding 780 ml 65 ml Output Urine Total 1780 ml 50 ml 2D Echo: LVEF 60-65%, mild TR with RVSP at 33 mmHg Laboratory Tests Test 07/07/17 04:05 07/07/17 10:00 White Blood Count 9.5 K/UL (4.8-10.8) Red Blood Count 3.11 M/UL (4.70-6.10) L Hemoglobin 10.8 G/DL (14.2-18.0) L Hematocrit 31.9 % (42.0-52.0) L Mean Corpuscular Volume 103 FL (80-99) H Mean Corpuscular Hemoglobin 34.8 PG (27.0-31.0) H Mean Corpuscular Hemoglobin Concent 33.9 G/DL (32.0-36.0) Red Cell Distribution Width 13.4 % (11.6-14.8) Platelet Count 272 K/UL (150-450) Mean Platelet Volume 6.4 FL (6.5-10.1) L Neutrophils (%) (Auto) 50.2 % (45.0-75.0) Lymphocytes (%) (Auto) 36.4 % (20.0-45.0) Monocytes (%) (Auto) 8.0 % (1.0-10.0) Eosinophils (%) (Auto) 4.7 % (0.0-3.0) H Basophils (%) (Auto) 0.8 % (0.0-2.0) Sodium Level 139 MMOL/L (136-145) Potassium Level 3.5 MMOL/L (3.5-5.1) Chloride Level 107 MMOL/L (98-107) Carbon Dioxide Level 23 MMOL/L (21-32) Anion Gap 9 mmol/L (5-15) Blood Urea Nitrogen 13 mg/dL (7-18) Creatinine 1.1 MG/DL (0.55-1.30) Estimat Glomerular Filtration Rate > 60 mL/min (>60) Glucose Level 116 MG/DL (74-106) H Calcium Level 8.6 MG/DL (8.5-10.1) Phosphorus Level 3.5 MG/DL (2.5-4.9) Magnesium Level 1.8 MG/DL (1.8-2.4) Total Bilirubin 0.3 MG/DL (0.2-1.0) Aspartate Amino Transf (AST/SGOT) 11 U/L (15-37) L Alanine Aminotransferase (ALT/SGPT) 10 U/L (12-78) L Alkaline Phosphatase 65 U/L (46-116) Total Protein 6.5 G/DL (6.4-8.2) Albumin 2.3 G/DL (3.4-5.0) L Globulin 4.2 g/dL Albumin/Globulin Ratio 0.5 (1.0-2.7) L Arterial Blood pH 7.379 (7.350-7.450) Arterial Blood Partial Pressure CO2 38.0 mmHg (35.0-45.0) Arterial Blood Partial Pressure O2 81.1 mmHg (75.0-100.0) Arterial Blood HCO3 21.9 mmol/L (22.0-26.0) L Arterial Blood Oxygen Saturation 95.2 % (92.0-98.0) Arterial Blood Base Excess -2.9 Anthony Test Positive Objective HEENT: Atraumatic and normocephalic. ENT, pupils are equal, round, and reactive to light and accommodation. Pale conjunctiva, intubated. NECK: JVP cannot be assessed. No carotid bruit. Carotid upstrokes 2+ bilaterally. LUNGS: Diminished BS left lung. CVS: Normal S1, S2. no murmurs, gallops or rubs. PMI is at fourth intercostal space in the midclavicular line. ABDOMEN: Soft, nontender, and nondistended. No hepatosplenomegaly. Positive bowel sounds. EXTREMITIES: No evidence of edema, clubbing, or cyanosis. CALLUM BARON Jul 07, 2017 20:42
[2017-07-08] VITALS (24 sets, daily range): BP systolic 102–135; BP diastolic 53–81
[2017-07-08 05:16] LABS: BASOPHILS % (AUTO) 0.6 % (0.0-2.0); EOSINOPHILS % (AUTO) 3.2 % (0.0-3.0); HEMATOCRIT 31.7 % (42.0-52.0); HEMOGLOBIN 10.9 G/DL (14.2-18.0); LYMPHOCYTES % (AUTO) 28.2 % (20.0-45.0); MEAN CORPUSCULAR VOLUME 103 FL (80-99); MONOCYTES % (AUTO) 6.6 % (1.0-10.0); NEUTROPHILS % (AUTO) 61.4 % (45.0-75.0); PLATELET COUNT 293 K/UL (150-450); RED BLOOD COUNT 3.09 M/UL (4.70-6.10); RED CELL DISTRIBUTION WIDTH 13.5 % (11.6-14.8); WHITE BLOOD COUNT 9.7 K/UL (4.8-10.8)
[2017-07-08 05:52] LABS: PHOSPHORUS 4.6 MG/DL (2.5-4.9)
[2017-07-08 06:27] LABS: ALANINE AMINOTRANSFERASE 10 U/L (12-78); ALBUMIN 2.5 G/DL (3.4-5.0); ALBUMIN/GLOBULIN RATIO 0.6 (1.0-2.7); ALKALINE PHOSPHATASE 68 U/L (46-116); ANION GAP 8 mmol/L (5-15); ASPARTATE AMINO TRANSFERASE 11 U/L (15-37); BILIRUBIN,TOTAL 0.2 MG/DL (0.2-1.0); BLOOD UREA NITROGEN 17 mg/dL (7-18); CALCIUM 9.3 MG/DL (8.5-10.1); CARBON DIOXIDE 28 MMOL/L (21-32); CHLORIDE 106 MMOL/L (98-107); POTASSIUM 3.7 MMOL/L (3.5-5.1); SODIUM 142 MMOL/L (136-145)
[2017-07-08] MEDS: Pantoprazole Inj IV SCH (08:41)
[2017-07-08] MEDS: Theophylline ER 100mg ORAL SCH ×2 (08:42→20:59)
[2017-07-08] MEDS: Solu-MEDROL 125mg Inj IV SCH (08:44)
[2017-07-08] MEDS: carBAMazepine 200mg tab ORAL SCH ×4 (08:46→20:59)
[2017-07-08] MEDS: Heparin 5000 units/ml inj SUBQ SCH ×2 (08:46→21:02)
[2017-07-08] MEDS: Docusate 100mg cap ORAL SCH (08:46)
--- NOTE | 2017-07-08 09:39 | Pulmonolgy Critical Care Note ---
Critical Care - Asmt/Plan Problems: (1) Acute encephalopathy (2) Acute respiratory failure (3) Collapse of left lung (4) UTI (urinary tract infection) (5) Schizophrenia (6) History of pacemaker (7) Fever Respiratory: monitor respiratory rate, adjust FIO2, CXR, other - will need intubation and bronch to open up left lung Cardiac: continue to monitor HR/BP Renal: F/U I&O, keep IV fluid, check electrolytes Infectious Disease: check cultures, continue antibiotics Gastrointestinal: continue feedings/current rate Endocrine: monitor blood sugar, continue sliding scale insulin Hematologic: monitor H/H, transfuse if hgb<8.5 Neurologic: PRN Ativan, PRN Morphine Prophylaxis: Protonix, Heparin Notes Reviewed: revenue settlements administrator, cardio Discussed with: nurses, consultants, correctional case manageradoption manager - Objective Last 24 Hour Vital Signs Date Time Temp Pulse Resp B/P (MAP) Pulse Ox O2 Delivery O2 Flow Rate FiO2 07/08/17 09:00 98.0 78 20 109/72 100 Venturi Mask 55 07/08/17 08:00 55 07/08/17 08:00 68 20 121/71 100 Venturi Mask 55 07/08/17 08:00 68 07/08/17 07:00 77 20 105/56 95 Venturi Mask 55 07/08/17 06:00 80 21 105/54 95 Venturi Mask 55 07/08/17 05:00 72 20 119/61 97 Venturi Mask 55 07/08/17 04:00 97.9 73 21 103/60 98 Venturi Mask 55 07/08/17 04:00 15.0 07/08/17 04:00 92 07/08/17 03:00 86 20 121/57 100 Venturi Mask 55 07/08/17 02:00 83 20 117/58 100 Venturi Mask 55 07/08/17 01:00 74 20 102/53 100 Venturi Mask 55 07/08/17 00:00 97.9 96 22 115/57 100 Venturi Mask 55 07/08/17 00:00 75 07/07/17 23:00 76 21 104/41 96 Venturi Mask 55 07/07/17 22:00 62 22 105/61 100 Venturi Mask 55 07/07/17 21:00 61 21 89/50 100 Venturi Mask 55 07/07/17 20:18 15.0 07/07/17 20:00 60 22 87/50 99 Venturi Mask 55 07/07/17 20:00 60 07/07/17 19:32 Venturi Mask 14.0 55 07/07/17 19:32 100 Venturi Mask 14.0 55 07/07/17 19:00 98.1 64 22 91/52 99 Venturi Mask 55 07/07/17 18:00 71 22 102/52 99 Venturi Mask 55 07/07/17 17:00 66 22 101/46 99 Venturi Mask 55 07/07/17 16:00 30 07/07/17 16:00 97.6 66 22 97/54 99 Venturi Mask 55 07/07/17 16:00 60 07/07/17 15:00 66 22 96/53 99 Venturi Mask 55 07/07/17 14:30 99 Venturi Mask 14.0 55 07/07/17 14:00 66 22 97/54 99 Mechanical Ventilator 30 07/07/17 13:30 Venturi Mask 14.0 55 07/07/17 13:20 Venturi Mask 14.0 55 07/07/17 13:05 96 19 30 07/07/17 13:00 74 23 98/57 97 Mechanical Ventilator 30 07/07/17 12:48 61 07/07/17 12:00 30 07/07/17 12:00 97.3 66 16 101/53 98 Mechanical Ventilator 30 07/07/17 11:19 90 19 30 07/07/17 11:00 66 16 101/54 98 Mechanical Ventilator 30 07/07/17 10:00 67 16 91/48 97 Mechanical Ventilator 30 Status: awake Condition: critical HEENT: atraumatic, normocephalic Neck: full ROM Lungs: chest wall tender Heart: HR/BP unstable, regular Abdomen: soft, non-tender, feeding tube Extremities: no C/C/E, edema Decubiti: location Critical Care - Subjective ROS Limited/Unobtainable: Yes Interval Events: self extubated FI02: 55 Vent Support Breath Rate: 16 Vent Support Mode: AC Vent Tidal Volume: 600 Sputum Amount: Large PIP: 24 Tube Feeding Amount: 65 I&O: Intake and Output 07/08/17 07/09/17 19:00 07:00 Intake Total 130 ml Output Total 5 ml Balance 125 ml Tube Feeding 130 ml Output Urine Total 5 ml CXR: left lung remains collapsed ET-Tube: 8.0 ET Position: 21 Labs: Laboratory Tests Test 07/07/17 10:00 07/08/17 04:10 07/08/17 07:04 Arterial Blood pH 7.379 (7.350-7.450) 7.366 (7.350-7.450) Arterial Blood Partial Pressure CO2 38.0 mmHg (35.0-45.0) 52.5 mmHg (35.0-45.0) H Arterial Blood Partial Pressure O2 81.1 mmHg (75.0-100.0) 71.3 mmHg (75.0-100.0) L Arterial Blood HCO3 21.9 mmol/L (22.0-26.0) L 29.4 mmol/L (22.0-26.0) H Arterial Blood Oxygen Saturation 95.2 % (92.0-98.0) 93.5 % (92.0-98.0) Arterial Blood Base Excess -2.9 3.1 Anthony Test Positive Positive White Blood Count 9.7 K/UL (4.8-10.8) Red Blood Count 3.09 M/UL (4.70-6.10) L Hemoglobin 10.9 G/DL (14.2-18.0) L Hematocrit 31.7 % (42.0-52.0) L Mean Corpuscular Volume 103 FL (80-99) H Mean Corpuscular Hemoglobin 35.4 PG (27.0-31.0) H Mean Corpuscular Hemoglobin Concent 34.5 G/DL (32.0-36.0) Red Cell Distribution Width 13.5 % (11.6-14.8) Platelet Count 293 K/UL (150-450) Mean Platelet Volume 6.7 FL (6.5-10.1) Neutrophils (%) (Auto) 61.4 % (45.0-75.0) Lymphocytes (%) (Auto) 28.2 % (20.0-45.0) Monocytes (%) (Auto) 6.6 % (1.0-10.0) Eosinophils (%) (Auto) 3.2 % (0.0-3.0) H Basophils (%) (Auto) 0.6 % (0.0-2.0) Sodium Level 142 MMOL/L (136-145) Potassium Level 3.7 MMOL/L (3.5-5.1) Chloride Level 106 MMOL/L (98-107) Carbon Dioxide Level 28 MMOL/L (21-32) Anion Gap 8 mmol/L (5-15) Blood Urea Nitrogen 17 mg/dL (7-18) Creatinine 1.0 MG/DL (0.55-1.30) Estimat Glomerular Filtration Rate > 60 mL/min (>60) Glucose Level 119 MG/DL (74-106) H Calcium Level 9.3 MG/DL (8.5-10.1) Phosphorus Level 4.6 MG/DL (2.5-4.9) Magnesium Level 2.0 MG/DL (1.8-2.4) Total Bilirubin 0.2 MG/DL (0.2-1.0) Aspartate Amino Transf (AST/SGOT) 11 U/L (15-37) L Alanine Aminotransferase (ALT/SGPT) 10 U/L (12-78) L Alkaline Phosphatase 68 U/L (46-116) Total Protein 7.0 G/DL (6.4-8.2) Albumin 2.5 G/DL (3.4-5.0) L Globulin 4.5 g/dL Albumin/Globulin Ratio 0.6 (1.0-2.7) L GWEN MARTE Jul 08, 2017 09:39
--- NOTE | 2017-07-08 09:55 | Diagnostic Imaging Report ---
Indication: DYSPNEA Technique: One view of the chest Comparison: 07/07/2017 Findings: Interim endotracheal tube removal. Stable satisfactory position of nasogastric tube. Again demonstrated is complete opacification left hemithorax. Mediastinal shift indicates likely complete left lung atelectasis. There is abrupt cut off of the gas shadow of the left mainstem bronchus. A band of atelectasis is also seen in the right lung and infrahilar region. Left chest pacemaker again demonstrated. Old healed left rib fracture deformities are again demonstrated Impression: Interim extubation Persistent complete opacification left hemithorax,, suspect atelectasis secondary to endobronchial obstruction. Possibly a component of pleural fluid as well. New or increased right basilar atelectasis
--- NOTE | 2017-07-08 10:04 | General Progress Note ---
Progress Note Progress Note Procedure note Bronchoscopy indication :Left lung collapse. An Olympus bronchoscope was introduced through ET tube. foamy secretions were suctioned pt tolerated the procedure well. GWEN MARTE Jul 08, 2017 10:04
--- NOTE | 2017-07-08 10:05 | General Progress Note ---
Progress Note Progress Note Procedure note: endotracheal intubation Indication: Left lung collapse, respiratory failure An ET tube of size 8 was introduced in vocal cords, bilateral breath sounds were present. Cxr ordered. GWEN MARTE Jul 08, 2017 10:05
[2017-07-08] MEDS ORDERED: LORazepam Inj 2mg/ml 1ml IV PRN (10:15)
--- NOTE | 2017-07-08 10:31 | Consultation ---
DATE OF CONSULTATION: 07/05/2017 NOTE: POOR AUDIO QUALITY PSYCHOTHERAPY CONSULTATION PROGRESS NOTE CONSULTING PHYSICIAN: Hoa Lama M.D. TREATING ATTENDING PHYSICIAN: Den Moreau D.O. HISTORY OF PRESENT ILLNESS: The patient is a 71-year-old male. The patient has a history of schizophrenia respiratory failure. The patient has been very helpless, confused, disorganized, altered in his mental status, and irritable. The patient is from [facility] and has been very short of breath. This clinician assessed this patient. There is no indication of auditory or visual hallucinations at this time. There is no indication of suicidal or homicidal thoughts of ideation; however, continued to be confused and disorganized. He is able to communicate by marking words and nodding his head. He is able to that he feels anxious. PAST MEDICAL HISTORY: Includes a history of anemia and weakness. ALLERGIES: The patient is allergic to chlorpromazine and erythromycin base. SUBSTANCE ABUSE HISTORY: The patient does not have a history of alcohol use, illicit substance use, or smoking cigarette. PSYCHIATRIC HISTORY: The patient has history of paranoid schizophrenia. The patient has had inpatient psychiatric hospitalizations in the past. SOCIAL HISTORY: The patient is a 71-year-old male patient. The patient is from [facility]. Financially sustained through [facility]. MENTAL STATUS EXAMINATION: The patient is alert and oriented x2, person and place. Mood is irritable. Affect is . Thought process is disorganized. Thought content is confused. He has had poor attention and concentration. . DIAGNOSES: AXIS I: Paranoid schizophrenia. AXIS II: Deferred. AXIS III: Per History and Physical. PLAN: Continue with medication management and behavioral management. This clinician has reviewed the patient's chart and discussed the treatment with nursing staff. Hoa Lama PsyD. DR: Rosmery JOB#: [id number] CC:
--- NOTE | 2017-07-08 10:31 | Consultation ---
DATE OF CONSULTATION: 07/05/2017 NOTE: POOR AUDIO QUALITY PSYCHOTHERAPY CONSULTATION PROGRESS NOTE CONSULTING PHYSICIAN: Hoa Lama M.D. TREATING ATTENDING PHYSICIAN: Den Moreau D.O. HISTORY OF PRESENT ILLNESS: The patient is a 71-year-old male. The patient has a history of schizophrenia respiratory failure. The patient has been very helpless, confused, disorganized, altered in his mental status, and irritable. The patient is from [facility] and has been very short of breath. This clinician assessed this patient. There is no indication of auditory or visual hallucinations at this time. There is no indication of suicidal or homicidal thoughts of ideation; however, continued to be confused and disorganized. He is able to communicate by marking words and nodding his head. He is able to that he feels anxious. PAST MEDICAL HISTORY: Includes a history of anemia and weakness. ALLERGIES: The patient is allergic to chlorpromazine and erythromycin base. SUBSTANCE ABUSE HISTORY: The patient does not have a history of alcohol use, illicit substance use, or smoking cigarette. PSYCHIATRIC HISTORY: The patient has history of paranoid schizophrenia. The patient has had inpatient psychiatric hospitalizations in the past. SOCIAL HISTORY: The patient is a 71-year-old male patient. The patient is from [facility]. Financially sustained through [employer]. MENTAL STATUS EXAMINATION: The patient is alert and oriented x2, person and place. Mood is irritable. Affect is . Thought process is disorganized. Thought content is confused. He has had poor attention and concentration. . DIAGNOSES: AXIS I: Paranoid schizophrenia. AXIS II: Deferred. AXIS III: Per History and Physical. PLAN: Continue with medication management and behavioral management. This clinician has reviewed the patient's chart and discussed the treatment with nursing staff. Hoa Lama PsyD. DR: Rosmery JOB#: [id number] CC:
--- NOTE | 2017-07-08 10:41 | Diagnostic Imaging Report ---
Indication: Status post intubation Technique: One view of the chest Comparison: 3 hours earlier Findings: Interim endotracheal intubation, borderline low position of endotracheal tube, at the cynthia. There is interim reaeration of the left lung, although significant opacity with volume loss persists. There is persistent atelectasis at the right lung base. Left chest pacemaker remains Impression: Interim endotracheal intubation. Endotracheal tube positioned slightly low, just at the cynthia, withdrawal by 1 cm recommended Interim reaeration of the left lung, post bronchoscopy. Still considerable pleural and parenchymal disease as well as volume loss No evidence of post bronchoscopy complication
--- NOTE | 2017-07-08 10:41 | Diagnostic Imaging Report ---
Indication: Status post intubation Technique: One view of the chest Comparison: 3 hours earlier Findings: Interim endotracheal intubation, borderline low position of endotracheal tube, at the cynthia. There is interim reaeration of the left lung, although significant opacity with volume loss persists. There is persistent atelectasis at the right lung base. Left chest pacemaker remains Impression: Interim endotracheal intubation. Endotracheal tube positioned slightly low, just at the cytnhia, withdrawal by 1 cm recommended Interim reaeration of the left lung, post bronchoscopy. Still considerable pleural and parenchymal disease as well as volume loss No evidence of post bronchoscopy complication
--- NOTE | 2017-07-08 13:02 | Nephrology Progress Note ---
Assessment/Plan Assessment 1. hypokalemia 2. Elevated bicarbonate is in response to severe respiratory acidosis. 3. Hypertension. 4. History of chronic obstructive pulmonary disease. Plan plan to d/c IVF continue iv antibiotic monitoring renal function monitoring electrolyte replace as need avoid any NSAID Subjective Constitutional: Reports: no symptoms HEENT: Reports: no symptoms Genitourinary: Reports: no symptoms Neurologic/Psychiatric: Reports: no symptoms Subjective self extubated last night he is on venture mask no changes in MS Objective Objective Last 24 Hour Vital Signs Date Time Temp Pulse Resp B/P (MAP) Pulse Ox O2 Delivery O2 Flow Rate FiO2 07/08/17 11:00 107 16 125/69 94 Venturi Mask 55 07/08/17 10:05 96 16 30 07/08/17 10:05 60 07/08/17 10:00 117 17 124/64 95 Venturi Mask 55 07/08/17 09:45 30 07/08/17 09:00 98.0 78 20 109/72 100 Venturi Mask 55 07/08/17 08:00 55 07/08/17 08:00 68 20 121/71 100 Venturi Mask 55 07/08/17 08:00 68 07/08/17 07:00 77 20 105/56 95 Venturi Mask 55 07/08/17 06:00 80 21 105/54 95 Venturi Mask 55 07/08/17 05:00 72 20 119/61 97 Venturi Mask 55 07/08/17 04:00 97.9 73 21 103/60 98 Venturi Mask 55 07/08/17 04:00 15.0 07/08/17 04:00 92 07/08/17 03:00 86 20 121/57 100 Venturi Mask 55 07/08/17 02:00 83 20 117/58 100 Venturi Mask 55 07/08/17 01:00 74 20 102/53 100 Venturi Mask 55 07/08/17 00:00 97.9 96 22 115/57 100 Venturi Mask 55 07/08/17 00:00 75 07/07/17 23:00 76 21 104/41 96 Venturi Mask 55 07/07/17 22:00 62 22 105/61 100 Venturi Mask 55 07/07/17 21:00 61 21 89/50 100 Venturi Mask 55 07/07/17 20:18 15.0 07/07/17 20:00 60 22 87/50 99 Venturi Mask 55 07/07/17 20:00 60 07/07/17 19:32 Venturi Mask 14.0 55 07/07/17 19:32 100 Venturi Mask 14.0 55 07/07/17 19:00 98.1 64 22 91/52 99 Venturi Mask 55 07/07/17 18:00 71 22 102/52 99 Venturi Mask 55 07/07/17 17:00 66 22 101/46 99 Venturi Mask 55 07/07/17 16:00 30 07/07/17 16:00 97.6 66 22 97/54 99 Venturi Mask 55 07/07/17 16:00 60 07/07/17 15:00 66 22 96/53 99 Venturi Mask 55 07/07/17 14:30 99 Venturi Mask 14.0 55 07/07/17 14:00 66 22 97/54 99 Mechanical Ventilator 30 07/07/17 13:30 Venturi Mask 14.0 55 07/07/17 13:20 Venturi Mask 14.0 55 07/07/17 13:05 96 19 30 Intake and Output 07/08/17 07/09/17 19:00 07:00 Intake Total 260 ml Output Total 155 ml Balance 105 ml Tube Feeding 260 ml Output Urine Total 155 ml Laboratory Tests 07/08/17 04:10: White Blood Count 9.7, Red Blood Count 3.09L, Hemoglobin 10.9L, Hematocrit 31.7L , Mean Corpuscular Volume 103H, Mean Corpuscular Hemoglobin 35.4H, Mean Corpuscular Hemoglobin Concent 34.5, Red Cell Distribution Width 13.5, Platelet Count 293, Mean Platelet Volume 6.7, Neutrophils (%) (Auto) 61.4, Lymphocytes (% ) (Auto) 28.2, Monocytes (%) (Auto) 6.6, Eosinophils (%) (Auto) 3.2H, Basophils (%) (Auto) 0.6, Sodium Level 142, Potassium Level 3.7, Chloride Level 106, Carbon Dioxide Level 28, Anion Gap 8, Blood Urea Nitrogen 17, Creatinine 1.0, Estimat Glomerular Filtration Rate > 60, Glucose Level 119H, Calcium Level 9.3, Phosphorus Level 4.6, Magnesium Level 2.0, Total Bilirubin 0.2, Aspartate Amino Transf (AST/SGOT) 11L, Alanine Aminotransferase (ALT/SGPT) 10L, Alkaline Phosphatase 68, Total Protein 7.0, Albumin 2.5L, Globulin 4.5, Albumin/Globulin Ratio 0.6L 07/08/17 07:04: Arterial Blood pH 7.366, Arterial Blood Partial Pressure CO2 52.5H, Arterial Blood Partial Pressure O2 71.3L, Arterial Blood HCO3 29.4H, Arterial Blood Oxygen Saturation 93.5, Arterial Blood Base Excess 3.1, Anthony Test Positive 07/08/17 11:05: Arterial Blood pH 7.422, Arterial Blood Partial Pressure CO2 35.6, Arterial Blood Partial Pressure O2 65.3L, Arterial Blood HCO3 22.7, Arterial Blood Oxygen Saturation 94.0, Arterial Blood Base Excess -1.3, Anthony Test Positive Height (Feet): 5 Height (Inches): 11.00 Weight (Pounds): 123 Objective HEAD AND NECK: No JVP. No LAD. No thyromegaly. Extraocular movements intact. Pupils are reactive to light and accommodation. LUNGS: Clear to auscultation. CARDIAC: Regular rate and rhythm. S1 and S2. No murmur. No rub. ABDOMEN: Soft, nontender, and nondistended. EXTREMITIES: No edema. No clubbing. No cyanosis. NEUROLOGIC: The patient opened up his eyes, not following verbal commands. RANCHO SYKES Jul 08, 2017 13:02
--- NOTE | 2017-07-08 13:36 | General Progress Note ---
Assessment/Plan Problem List: (1) Respiratory failure ICD Codes: J96.90 - Respiratory failure, unspecified, unspecified whether with hypoxia or hypercapnia SNOMED: 170006025 (2) Sepsis ICD Codes: A41.9 - Sepsis, unspecified organism SNOMED: 39791878 (3) UTI (urinary tract infection) ICD Codes: N39.0 - Urinary tract infection, site not specified SNOMED: 23693084 (4) Schizophrenia ICD Codes: F20.9 - Schizophrenia, unspecified SNOMED: 63532701 (5) History of pacemaker ICD Codes: Z95.0 - Presence of cardiac pacemaker SNOMED: 656064552 (6) Limited mobility ICD Codes: Z74.09 - Other reduced mobility SNOMED: 3981666 Status: stable, progressing, tolerating diet Assessment/Plan o2 pul tx ot pt diet abx cbc bmp am ltach eval Subjective Constitutional: Reports: weakness Allergies: Coded Allergies: CHLORPROMAZINE (Verified Allergy, Unknown, 06/23/17) ERYTHROMYCIN BASE (Verified Allergy, Unknown, 06/23/17) Uncoded Allergies: TAPE (Allergy, Unknown, 06/23/17) All Systems: reviewed and negative except above Subjective intubated sedated in icu Objective Last 24 Hour Vital Signs Date Time Temp Pulse Resp B/P (MAP) Pulse Ox O2 Delivery O2 Flow Rate FiO2 07/08/17 11:00 107 16 125/69 94 Venturi Mask 55 07/08/17 10:05 96 16 30 07/08/17 10:05 60 07/08/17 10:00 117 17 124/64 95 Venturi Mask 55 07/08/17 09:45 30 07/08/17 09:00 98.0 78 20 109/72 100 Venturi Mask 55 07/08/17 08:00 55 07/08/17 08:00 68 20 121/71 100 Venturi Mask 55 07/08/17 08:00 68 07/08/17 07:00 77 20 105/56 95 Venturi Mask 55 07/08/17 06:00 80 21 105/54 95 Venturi Mask 55 07/08/17 05:00 72 20 119/61 97 Venturi Mask 55 07/08/17 04:00 97.9 73 21 103/60 98 Venturi Mask 55 07/08/17 04:00 15.0 07/08/17 04:00 92 07/08/17 03:00 86 20 121/57 100 Venturi Mask 55 07/08/17 02:00 83 20 117/58 100 Venturi Mask 55 07/08/17 01:00 74 20 102/53 100 Venturi Mask 55 07/08/17 00:00 97.9 96 22 115/57 100 Venturi Mask 55 07/08/17 00:00 75 07/07/17 23:00 76 21 104/41 96 Venturi Mask 55 07/07/17 22:00 62 22 105/61 100 Venturi Mask 55 07/07/17 21:00 61 21 89/50 100 Venturi Mask 55 07/07/17 20:18 15.0 07/07/17 20:00 60 22 87/50 99 Venturi Mask 55 07/07/17 20:00 60 07/07/17 19:32 Venturi Mask 14.0 55 07/07/17 19:32 100 Venturi Mask 14.0 55 07/07/17 19:00 98.1 64 22 91/52 99 Venturi Mask 55 07/07/17 18:00 71 22 102/52 99 Venturi Mask 55 07/07/17 17:00 66 22 101/46 99 Venturi Mask 55 07/07/17 16:00 30 07/07/17 16:00 97.6 66 22 97/54 99 Venturi Mask 55 07/07/17 16:00 60 07/07/17 15:00 66 22 96/53 99 Venturi Mask 55 07/07/17 14:30 99 Venturi Mask 14.0 55 07/07/17 14:00 66 22 97/54 99 Mechanical Ventilator 30 Intake and Output 07/08/17 07/09/17 19:00 07:00 Intake Total 260 ml Output Total 155 ml Balance 105 ml Tube Feeding 260 ml Output Urine Total 155 ml Laboratory Tests 07/08/17 04:10: White Blood Count 9.7, Red Blood Count 3.09L, Hemoglobin 10.9L, Hematocrit 31.7L , Mean Corpuscular Volume 103H, Mean Corpuscular Hemoglobin 35.4H, Mean Corpuscular Hemoglobin Concent 34.5, Red Cell Distribution Width 13.5, Platelet Count 293, Mean Platelet Volume 6.7, Neutrophils (%) (Auto) 61.4, Lymphocytes (% ) (Auto) 28.2, Monocytes (%) (Auto) 6.6, Eosinophils (%) (Auto) 3.2H, Basophils (%) (Auto) 0.6, Sodium Level 142, Potassium Level 3.7, Chloride Level 106, Carbon Dioxide Level 28, Anion Gap 8, Blood Urea Nitrogen 17, Creatinine 1.0, Estimat Glomerular Filtration Rate > 60, Glucose Level 119H, Calcium Level 9.3, Phosphorus Level 4.6, Magnesium Level 2.0, Total Bilirubin 0.2, Aspartate Amino Transf (AST/SGOT) 11L, Alanine Aminotransferase (ALT/SGPT) 10L, Alkaline Phosphatase 68, Total Protein 7.0, Albumin 2.5L, Globulin 4.5, Albumin/Globulin Ratio 0.6L 07/08/17 07:04: Arterial Blood pH 7.366, Arterial Blood Partial Pressure CO2 52.5H, Arterial Blood Partial Pressure O2 71.3L, Arterial Blood HCO3 29.4H, Arterial Blood Oxygen Saturation 93.5, Arterial Blood Base Excess 3.1, Anthony Test Positive 07/08/17 11:05: Arterial Blood pH 7.422, Arterial Blood Partial Pressure CO2 35.6, Arterial Blood Partial Pressure O2 65.3L, Arterial Blood HCO3 22.7, Arterial Blood Oxygen Saturation 94.0, Arterial Blood Base Excess -1.3, Anthony Test Positive Height (Feet): 5 Height (Inches): 11.00 Weight (Pounds): 123 General Appearance: lethargic EENT: normal ENT inspection Neck: normal alignment Cardiovascular: normal peripheral pulses, normal rate, regular rhythm Respiratory/Chest: chest wall non-tender, lungs clear, normal breath sounds Abdomen: normal bowel sounds, non tender, soft Extremities: normal inspection Edema: no edema noted Arm (L), no edema noted Arm (R), no edema noted Leg (L), no edema noted Leg (R), no edema noted Pedal (L), no edema noted Pedal (R), no edema noted Generalized Neurologic: motor weakness Skin: normal pigmentation, warm/dry QUINTON HUMPHRIES Jul 08, 2017 13:36
--- NOTE | 2017-07-08 13:36 | General Progress Note ---
Assessment/Plan Problem List: (1) Respiratory failure ICD Codes: J96.90 - Respiratory failure, unspecified, unspecified whether with hypoxia or hypercapnia SNOMED: 670599111 (2) Sepsis ICD Codes: A41.9 - Sepsis, unspecified organism SNOMED: 35084773 (3) UTI (urinary tract infection) ICD Codes: N39.0 - Urinary tract infection, site not specified SNOMED: 98508988 (4) Schizophrenia ICD Codes: F20.9 - Schizophrenia, unspecified SNOMED: 15835612 (5) History of pacemaker ICD Codes: Z95.0 - Presence of cardiac pacemaker SNOMED: 509992542 (6) Limited mobility ICD Codes: Z74.09 - Other reduced mobility SNOMED: 4186865 Status: stable, progressing, tolerating diet Assessment/Plan o2 pul tx ot pt diet abx cbc bmp am ltach eval Subjective Constitutional: Reports: weakness Allergies: Coded Allergies: CHLORPROMAZINE (Verified Allergy, Unknown, 06/23/17) ERYTHROMYCIN BASE (Verified Allergy, Unknown, 06/23/17) Uncoded Allergies: TAPE (Allergy, Unknown, 06/23/17) All Systems: reviewed and negative except above Subjective intubated sedated in icu Objective Last 24 Hour Vital Signs Date Time Temp Pulse Resp B/P (MAP) Pulse Ox O2 Delivery O2 Flow Rate FiO2 07/08/17 11:00 107 16 125/69 94 Venturi Mask 55 07/08/17 10:05 96 16 30 07/08/17 10:05 60 07/08/17 10:00 117 17 124/64 95 Venturi Mask 55 07/08/17 09:45 30 07/08/17 09:00 98.0 78 20 109/72 100 Venturi Mask 55 07/08/17 08:00 55 07/08/17 08:00 68 20 121/71 100 Venturi Mask 55 07/08/17 08:00 68 07/08/17 07:00 77 20 105/56 95 Venturi Mask 55 07/08/17 06:00 80 21 105/54 95 Venturi Mask 55 07/08/17 05:00 72 20 119/61 97 Venturi Mask 55 07/08/17 04:00 97.9 73 21 103/60 98 Venturi Mask 55 07/08/17 04:00 15.0 07/08/17 04:00 92 07/08/17 03:00 86 20 121/57 100 Venturi Mask 55 07/08/17 02:00 83 20 117/58 100 Venturi Mask 55 07/08/17 01:00 74 20 102/53 100 Venturi Mask 55 07/08/17 00:00 97.9 96 22 115/57 100 Venturi Mask 55 07/08/17 00:00 75 07/07/17 23:00 76 21 104/41 96 Venturi Mask 55 07/07/17 22:00 62 22 105/61 100 Venturi Mask 55 07/07/17 21:00 61 21 89/50 100 Venturi Mask 55 07/07/17 20:18 15.0 07/07/17 20:00 60 22 87/50 99 Venturi Mask 55 07/07/17 20:00 60 07/07/17 19:32 Venturi Mask 14.0 55 07/07/17 19:32 100 Venturi Mask 14.0 55 07/07/17 19:00 98.1 64 22 91/52 99 Venturi Mask 55 07/07/17 18:00 71 22 102/52 99 Venturi Mask 55 07/07/17 17:00 66 22 101/46 99 Venturi Mask 55 07/07/17 16:00 30 07/07/17 16:00 97.6 66 22 97/54 99 Venturi Mask 55 07/07/17 16:00 60 07/07/17 15:00 66 22 96/53 99 Venturi Mask 55 07/07/17 14:30 99 Venturi Mask 14.0 55 07/07/17 14:00 66 22 97/54 99 Mechanical Ventilator 30 Intake and Output 07/08/17 07/09/17 19:00 07:00 Intake Total 260 ml Output Total 155 ml Balance 105 ml Tube Feeding 260 ml Output Urine Total 155 ml Laboratory Tests 07/08/17 04:10: White Blood Count 9.7, Red Blood Count 3.09L, Hemoglobin 10.9L, Hematocrit 31.7L , Mean Corpuscular Volume 103H, Mean Corpuscular Hemoglobin 35.4H, Mean Corpuscular Hemoglobin Concent 34.5, Red Cell Distribution Width 13.5, Platelet Count 293, Mean Platelet Volume 6.7, Neutrophils (%) (Auto) 61.4, Lymphocytes (% ) (Auto) 28.2, Monocytes (%) (Auto) 6.6, Eosinophils (%) (Auto) 3.2H, Basophils (%) (Auto) 0.6, Sodium Level 142, Potassium Level 3.7, Chloride Level 106, Carbon Dioxide Level 28, Anion Gap 8, Blood Urea Nitrogen 17, Creatinine 1.0, Estimat Glomerular Filtration Rate > 60, Glucose Level 119H, Calcium Level 9.3, Phosphorus Level 4.6, Magnesium Level 2.0, Total Bilirubin 0.2, Aspartate Amino Transf (AST/SGOT) 11L, Alanine Aminotransferase (ALT/SGPT) 10L, Alkaline Phosphatase 68, Total Protein 7.0, Albumin 2.5L, Globulin 4.5, Albumin/Globulin Ratio 0.6L 07/08/17 07:04: Arterial Blood pH 7.366, Arterial Blood Partial Pressure CO2 52.5H, Arterial Blood Partial Pressure O2 71.3L, Arterial Blood HCO3 29.4H, Arterial Blood Oxygen Saturation 93.5, Arterial Blood Base Excess 3.1, Anthony Test Positive 07/08/17 11:05: Arterial Blood pH 7.422, Arterial Blood Partial Pressure CO2 35.6, Arterial Blood Partial Pressure O2 65.3L, Arterial Blood HCO3 22.7, Arterial Blood Oxygen Saturation 94.0, Arterial Blood Base Excess -1.3, Anthony Test Positive Height (Feet): 5 Height (Inches): 11.00 Weight (Pounds): 123 General Appearance: lethargic EENT: normal ENT inspection Neck: normal alignment Cardiovascular: normal peripheral pulses, normal rate, regular rhythm Respiratory/Chest: chest wall non-tender, lungs clear, normal breath sounds Abdomen: normal bowel sounds, non tender, soft Extremities: normal inspection Edema: no edema noted Arm (L), no edema noted Arm (R), no edema noted Leg (L), no edema noted Leg (R), no edema noted Pedal (L), no edema noted Pedal (R), no edema noted Generalized Neurologic: motor weakness Skin: normal pigmentation, warm/dry QUINTON HUMPHRIES Jul 08, 2017 13:36
--- NOTE | 2017-07-08 13:36 | General Progress Note ---
Assessment/Plan Problem List: (1) Respiratory failure ICD Codes: J96.90 - Respiratory failure, unspecified, unspecified whether with hypoxia or hypercapnia SNOMED: 139939571 (2) Sepsis ICD Codes: A41.9 - Sepsis, unspecified organism SNOMED: 18834962 (3) UTI (urinary tract infection) ICD Codes: N39.0 - Urinary tract infection, site not specified SNOMED: 45949617 (4) Schizophrenia ICD Codes: F20.9 - Schizophrenia, unspecified SNOMED: 94082058 (5) History of pacemaker ICD Codes: Z95.0 - Presence of cardiac pacemaker SNOMED: 521803977 (6) Limited mobility ICD Codes: Z74.09 - Other reduced mobility SNOMED: 8816011 Status: stable, progressing, tolerating diet Assessment/Plan o2 pul tx ot pt diet abx cbc bmp am ltach eval Subjective Constitutional: Reports: weakness Allergies: Coded Allergies: CHLORPROMAZINE (Verified Allergy, Unknown, 06/23/17) ERYTHROMYCIN BASE (Verified Allergy, Unknown, 06/23/17) Uncoded Allergies: TAPE (Allergy, Unknown, 06/23/17) All Systems: reviewed and negative except above Subjective intubated sedated in icu Objective Last 24 Hour Vital Signs Date Time Temp Pulse Resp B/P (MAP) Pulse Ox O2 Delivery O2 Flow Rate FiO2 07/08/17 11:00 107 16 125/69 94 Venturi Mask 55 07/08/17 10:05 96 16 30 07/08/17 10:05 60 07/08/17 10:00 117 17 124/64 95 Venturi Mask 55 07/08/17 09:45 30 07/08/17 09:00 98.0 78 20 109/72 100 Venturi Mask 55 07/08/17 08:00 55 07/08/17 08:00 68 20 121/71 100 Venturi Mask 55 07/08/17 08:00 68 07/08/17 07:00 77 20 105/56 95 Venturi Mask 55 07/08/17 06:00 80 21 105/54 95 Venturi Mask 55 07/08/17 05:00 72 20 119/61 97 Venturi Mask 55 07/08/17 04:00 97.9 73 21 103/60 98 Venturi Mask 55 07/08/17 04:00 15.0 07/08/17 04:00 92 07/08/17 03:00 86 20 121/57 100 Venturi Mask 55 07/08/17 02:00 83 20 117/58 100 Venturi Mask 55 07/08/17 01:00 74 20 102/53 100 Venturi Mask 55 07/08/17 00:00 97.9 96 22 115/57 100 Venturi Mask 55 07/08/17 00:00 75 07/07/17 23:00 76 21 104/41 96 Venturi Mask 55 07/07/17 22:00 62 22 105/61 100 Venturi Mask 55 07/07/17 21:00 61 21 89/50 100 Venturi Mask 55 07/07/17 20:18 15.0 07/07/17 20:00 60 22 87/50 99 Venturi Mask 55 07/07/17 20:00 60 07/07/17 19:32 Venturi Mask 14.0 55 07/07/17 19:32 100 Venturi Mask 14.0 55 07/07/17 19:00 98.1 64 22 91/52 99 Venturi Mask 55 07/07/17 18:00 71 22 102/52 99 Venturi Mask 55 07/07/17 17:00 66 22 101/46 99 Venturi Mask 55 07/07/17 16:00 30 07/07/17 16:00 97.6 66 22 97/54 99 Venturi Mask 55 07/07/17 16:00 60 07/07/17 15:00 66 22 96/53 99 Venturi Mask 55 07/07/17 14:30 99 Venturi Mask 14.0 55 07/07/17 14:00 66 22 97/54 99 Mechanical Ventilator 30 Intake and Output 07/08/17 07/09/17 19:00 07:00 Intake Total 260 ml Output Total 155 ml Balance 105 ml Tube Feeding 260 ml Output Urine Total 155 ml Laboratory Tests 07/08/17 04:10: White Blood Count 9.7, Red Blood Count 3.09L, Hemoglobin 10.9L, Hematocrit 31.7L , Mean Corpuscular Volume 103H, Mean Corpuscular Hemoglobin 35.4H, Mean Corpuscular Hemoglobin Concent 34.5, Red Cell Distribution Width 13.5, Platelet Count 293, Mean Platelet Volume 6.7, Neutrophils (%) (Auto) 61.4, Lymphocytes (% ) (Auto) 28.2, Monocytes (%) (Auto) 6.6, Eosinophils (%) (Auto) 3.2H, Basophils (%) (Auto) 0.6, Sodium Level 142, Potassium Level 3.7, Chloride Level 106, Carbon Dioxide Level 28, Anion Gap 8, Blood Urea Nitrogen 17, Creatinine 1.0, Estimat Glomerular Filtration Rate > 60, Glucose Level 119H, Calcium Level 9.3, Phosphorus Level 4.6, Magnesium Level 2.0, Total Bilirubin 0.2, Aspartate Amino Transf (AST/SGOT) 11L, Alanine Aminotransferase (ALT/SGPT) 10L, Alkaline Phosphatase 68, Total Protein 7.0, Albumin 2.5L, Globulin 4.5, Albumin/Globulin Ratio 0.6L 07/08/17 07:04: Arterial Blood pH 7.366, Arterial Blood Partial Pressure CO2 52.5H, Arterial Blood Partial Pressure O2 71.3L, Arterial Blood HCO3 29.4H, Arterial Blood Oxygen Saturation 93.5, Arterial Blood Base Excess 3.1, Anthony Test Positive 07/08/17 11:05: Arterial Blood pH 7.422, Arterial Blood Partial Pressure CO2 35.6, Arterial Blood Partial Pressure O2 65.3L, Arterial Blood HCO3 22.7, Arterial Blood Oxygen Saturation 94.0, Arterial Blood Base Excess -1.3, Anthony Test Positive Height (Feet): 5 Height (Inches): 11.00 Weight (Pounds): 123 General Appearance: lethargic EENT: normal ENT inspection Neck: normal alignment Cardiovascular: normal peripheral pulses, normal rate, regular rhythm Respiratory/Chest: chest wall non-tender, lungs clear, normal breath sounds Abdomen: normal bowel sounds, non tender, soft Extremities: normal inspection Edema: no edema noted Arm (L), no edema noted Arm (R), no edema noted Leg (L), no edema noted Leg (R), no edema noted Pedal (L), no edema noted Pedal (R), no edema noted Generalized Neurologic: motor weakness Skin: normal pigmentation, warm/dry QUINTON HUMPHRIES Jul 08, 2017 13:36
[2017-07-08] MEDS ORDERED: Morphine Sulfate 4mg/ml Inj IVP PRN (14:00)
[2017-07-08] MEDS: DOPamine 400mg/250ml 250 ML IV SCH (14:51)
[2017-07-08] MEDS ORDERED: Morphine Sulfate 10mg/ml Inj IVP PRN (18:00)
--- NOTE | 2017-07-08 22:34 | Infectious Diseases Prog Note ---
Assessment/Plan Problems: (1) Sepsis Assessment & Plan: Due to pneumonia probably. WBC better. (2) Acute respiratory failure Assessment & Plan: In the setting of lung collapse. Remains very tenuous. Repeat bronch. (3) HCAP (healthcare-associated pneumonia) Assessment & Plan: SCx noted. Continue with vancomycin IV and Zosyn. Follow-up CXR. (4) Collapse of left lung (5) Pyuria Assessment & Plan: UCx noted. On zosyn already. Subjective Allergies: Coded Allergies: CHLORPROMAZINE (Verified Allergy, Unknown, 06/23/17) ERYTHROMYCIN BASE (Verified Allergy, Unknown, 06/23/17) Uncoded Allergies: TAPE (Allergy, Unknown, 06/23/17) Objective Vital Signs Last 24 Hour Vital Signs Date Time Temp Pulse Resp B/P (MAP) Pulse Ox O2 Delivery O2 Flow Rate FiO2 07/08/17 22:00 97 16 113/70 100 Mechanical Ventilator 50 07/08/17 21:00 106 18 125/73 100 Mechanical Ventilator 50 07/08/17 20:48 102 16 50 07/08/17 20:00 99.0 86 18 135/81 100 Mechanical Ventilator 50 07/08/17 20:00 50 07/08/17 20:00 86 07/08/17 19:14 81 6 Mechanical Ventilator 50 07/08/17 19:13 81 16 50 07/08/17 19:00 81 18 127/74 100 Mechanical Ventilator 60 07/08/17 18:00 87 16 125/74 100 Mechanical Ventilator 60 07/08/17 17:00 98.6 95 16 123/69 100 Venturi Mask 60 07/08/17 16:43 82 16 60 07/08/17 16:00 91 07/08/17 16:00 77 17 108/63 100 Mechanical Ventilator 60 07/08/17 16:00 60 07/08/17 15:00 81 16 113/69 100 Mechanical Ventilator 60 07/08/17 14:51 121/65 07/08/17 14:49 90 16 60 07/08/17 14:00 68 20 121/65 100 Mechanical Ventilator 60 07/08/17 13:00 98.2 79 16 130/69 100 Venturi Mask 55 07/08/17 12:30 90 16 60 07/08/17 12:00 89 16 130/62 99 Venturi Mask 55 07/08/17 12:00 60 07/08/17 12:00 68 07/08/17 11:05 60 07/08/17 11:00 107 16 125/69 94 Venturi Mask 55 07/08/17 10:05 96 16 30 07/08/17 10:05 60 07/08/17 10:00 117 17 124/64 95 Venturi Mask 55 07/08/17 09:45 30 07/08/17 09:00 98.0 78 20 109/72 100 Venturi Mask 55 07/08/17 08:00 55 07/08/17 08:00 68 20 121/71 100 Venturi Mask 55 07/08/17 08:00 68 07/08/17 07:00 77 20 105/56 95 Venturi Mask 55 07/08/17 06:00 80 21 105/54 95 Venturi Mask 55 07/08/17 05:00 72 20 119/61 97 Venturi Mask 55 07/08/17 04:00 97.9 73 21 103/60 98 Venturi Mask 55 07/08/17 04:00 15.0 07/08/17 04:00 92 07/08/17 03:00 86 20 121/57 100 Venturi Mask 55 07/08/17 02:00 83 20 117/58 100 Venturi Mask 55 07/08/17 01:00 74 20 102/53 100 Venturi Mask 55 07/08/17 00:00 97.9 96 22 115/57 100 Venturi Mask 55 07/08/17 00:00 75 07/07/17 23:00 76 21 104/41 96 Venturi Mask 55 Height (Feet): 5 Height (Inches): 11.00 Weight (Pounds): 123 Laboratory Tests Test 07/08/17 04:10 07/08/17 07:04 07/08/17 11:05 White Blood Count 9.7 K/UL (4.8-10.8) Red Blood Count 3.09 M/UL (4.70-6.10) L Hemoglobin 10.9 G/DL (14.2-18.0) L Hematocrit 31.7 % (42.0-52.0) L Mean Corpuscular Volume 103 FL (80-99) H Mean Corpuscular Hemoglobin 35.4 PG (27.0-31.0) H Mean Corpuscular Hemoglobin Concent 34.5 G/DL (32.0-36.0) Red Cell Distribution Width 13.5 % (11.6-14.8) Platelet Count 293 K/UL (150-450) Mean Platelet Volume 6.7 FL (6.5-10.1) Neutrophils (%) (Auto) 61.4 % (45.0-75.0) Lymphocytes (%) (Auto) 28.2 % (20.0-45.0) Monocytes (%) (Auto) 6.6 % (1.0-10.0) Eosinophils (%) (Auto) 3.2 % (0.0-3.0) H Basophils (%) (Auto) 0.6 % (0.0-2.0) Sodium Level 142 MMOL/L (136-145) Potassium Level 3.7 MMOL/L (3.5-5.1) Chloride Level 106 MMOL/L (98-107) Carbon Dioxide Level 28 MMOL/L (21-32) Anion Gap 8 mmol/L (5-15) Blood Urea Nitrogen 17 mg/dL (7-18) Creatinine 1.0 MG/DL (0.55-1.30) Estimat Glomerular Filtration Rate > 60 mL/min (>60) Glucose Level 119 MG/DL (74-106) H Calcium Level 9.3 MG/DL (8.5-10.1) Phosphorus Level 4.6 MG/DL (2.5-4.9) Magnesium Level 2.0 MG/DL (1.8-2.4) Total Bilirubin 0.2 MG/DL (0.2-1.0) Aspartate Amino Transf (AST/SGOT) 11 U/L (15-37) L Alanine Aminotransferase (ALT/SGPT) 10 U/L (12-78) L Alkaline Phosphatase 68 U/L (46-116) Total Protein 7.0 G/DL (6.4-8.2) Albumin 2.5 G/DL (3.4-5.0) L Globulin 4.5 g/dL Albumin/Globulin Ratio 0.6 (1.0-2.7) L Arterial Blood pH 7.366 (7.350-7.450) 7.422 (7.350-7.450) Arterial Blood Partial Pressure CO2 52.5 mmHg (35.0-45.0) H 35.6 mmHg (35.0-45.0) Arterial Blood Partial Pressure O2 71.3 mmHg (75.0-100.0) L 65.3 mmHg (75.0-100.0) L Arterial Blood HCO3 29.4 mmol/L (22.0-26.0) H 22.7 mmol/L (22.0-26.0) Arterial Blood Oxygen Saturation 93.5 % (92.0-98.0) 94.0 % (92.0-98.0) Arterial Blood Base Excess 3.1 -1.3 Anthony Test Positive Positive Current Medications Medications (Trade) Dose Ordered Sig/Karen Route PRN Reason Start Time Stop Time Status Last Admin Dose Admin Carbamazepine (TEGretol) 200 mg FOUR TIMES A DAY ORAL 07/02/17 09:00 07/23/17 12:59 07/08/17 20:59 Dextrose (Dextrose 50%) STAT PRN IV Hypoglycemia 07/02/17 12:00 07/25/17 11:59 Docusate Sodium (Colace) 100 mg DAILY ORAL 07/02/17 09:00 07/29/17 08:59 07/08/17 08:46 Dopamine HCl/ Dextrose 250 ml @ 0 mls/hr Q24H IV 07/03/17 15:00 08/02/17 14:59 07/03/17 15:15 Heparin Sodium (Porcine) (Heparin 5000 units/ml) 5,000 units EVERY 12 HOURS SUBQ 07/02/17 09:00 07/23/17 20:59 07/08/17 21:02 Levetiracetam (Keppra) 500 mg Q12HR ORAL 07/02/17 09:00 07/23/17 20:59 07/08/17 21:02 Lorazepam (Ativan 2mg/ml 1ml) 2 mg Q4H PRN IV For Anxiety 07/08/17 10:15 07/15/17 10:14 Methylprednisolone Sodium Succinate (Solu-MEDROL) 60 mg DAILY IV 07/02/17 09:00 07/23/17 17:59 07/08/17 08:44 Morphine Sulfate (Morphine Sulfate) 2 mg Q4H PRN IVP Moderate Pain (Pain Scale 4-6) 07/04/17 16:15 07/11/17 16:14 Morphine Sulfate (Morphine Sulfate) 4 mg Q4H PRN IVP Severe Pain (Pain Scale 7-10) 07/08/17 18:00 07/15/17 13:59 Nitroglycerin (Ntg) 0.4 mg Q5M X 3 DOSES PRN SL Prn Chest Pain 07/01/17 23:45 07/23/17 13:29 Olanzapine (ZyPREXA) 20 mg BEDTIME ORAL 07/02/17 21:00 07/24/17 08:59 07/08/17 20:59 Ondansetron HCl (Zofran) 4 mg Q6H PRN IVP Nausea & Vomiting 07/02/17 00:00 07/23/17 11:59 Pantoprazole (Protonix) 40 mg DAILY IV 07/02/17 09:00 08/01/17 08:59 07/08/17 08:41 Theophylline (Dane-Dur) 100 mg EVERY 12 HOURS ORAL 07/02/17 09:00 07/23/17 20:59 07/08/17 20:59 SHEKHAR MERAZ Jul 08, 2017 22:34
--- NOTE | 2017-07-08 23:33 | Cardiology Progress Note ---
Assessment/Plan Assessment/Plan 1. Acute respiratory failure, had self-extubated himself however due to worsening of the CXR and hypoventilation, he finally got re-intubated. 2. Sinus tachycardia, on and off today. 3. Hypotension, due to sepsis,? sedatives, ?hypovolemia, ? keppra, keep hydrated. normal LV systolic function with LVEF at 60-65%. 4. Acute respiratory failure due to left lung collapse,s/p bronchoscopy, resolved, got extubated on venturi mask now. 5. Dual chamber pacemaker implantation, currently intrinsic atrial and ventricular activity. Subjective Subjective Re-intubated this afternoon, CXR had shown complete re-opacification of the left hemithorax. Sinus rhythm at 81. Objective Last 24 Hour Vital Signs Date Time Temp Pulse Resp B/P (MAP) Pulse Ox O2 Delivery O2 Flow Rate FiO2 07/08/17 22:47 90 16 50 07/08/17 22:00 97 16 113/70 100 Mechanical Ventilator 50 07/08/17 21:00 106 18 125/73 100 Mechanical Ventilator 50 07/08/17 20:48 102 16 50 07/08/17 20:00 99.0 86 18 135/81 100 Mechanical Ventilator 50 07/08/17 20:00 50 07/08/17 20:00 86 07/08/17 19:14 81 6 Mechanical Ventilator 50 07/08/17 19:13 81 16 50 07/08/17 19:00 81 18 127/74 100 Mechanical Ventilator 60 07/08/17 18:00 87 16 125/74 100 Mechanical Ventilator 60 07/08/17 17:00 98.6 95 16 123/69 100 Venturi Mask 60 07/08/17 16:43 82 16 60 07/08/17 16:00 91 07/08/17 16:00 77 17 108/63 100 Mechanical Ventilator 60 07/08/17 16:00 60 07/08/17 15:00 81 16 113/69 100 Mechanical Ventilator 60 07/08/17 14:51 121/65 07/08/17 14:49 90 16 60 07/08/17 14:00 68 20 121/65 100 Mechanical Ventilator 60 07/08/17 13:00 98.2 79 16 130/69 100 Venturi Mask 55 07/08/17 12:30 90 16 60 07/08/17 12:00 89 16 130/62 99 Venturi Mask 55 07/08/17 12:00 60 07/08/17 12:00 68 07/08/17 11:05 60 07/08/17 11:00 107 16 125/69 94 Venturi Mask 55 07/08/17 10:05 96 16 30 07/08/17 10:05 60 07/08/17 10:00 117 17 124/64 95 Venturi Mask 55 07/08/17 09:45 30 07/08/17 09:00 98.0 78 20 109/72 100 Venturi Mask 55 07/08/17 08:00 55 07/08/17 08:00 68 20 121/71 100 Venturi Mask 55 07/08/17 08:00 68 07/08/17 07:00 77 20 105/56 95 Venturi Mask 55 07/08/17 06:00 80 21 105/54 95 Venturi Mask 55 07/08/17 05:00 72 20 119/61 97 Venturi Mask 55 07/08/17 04:00 97.9 73 21 103/60 98 Venturi Mask 55 07/08/17 04:00 15.0 07/08/17 04:00 92 07/08/17 03:00 86 20 121/57 100 Venturi Mask 55 07/08/17 02:00 83 20 117/58 100 Venturi Mask 55 07/08/17 01:00 74 20 102/53 100 Venturi Mask 55 07/08/17 00:00 97.9 96 22 115/57 100 Venturi Mask 55 07/08/17 00:00 75 Intake and Output 07/08/17 07/09/17 19:00 07:00 Intake Total 840 ml 225 ml Output Total 390 ml 150 ml Balance 450 ml 75 ml Free Water 30 ml Tube Feeding 780 ml 195 ml Other 60 ml Output Urine Total 390 ml 150 ml 2D Echo: LVEF 60-65%, mild TR with RVSP at 33 mmHg Laboratory Tests Test 07/08/17 04:10 07/08/17 07:04 07/08/17 11:05 White Blood Count 9.7 K/UL (4.8-10.8) Red Blood Count 3.09 M/UL (4.70-6.10) L Hemoglobin 10.9 G/DL (14.2-18.0) L Hematocrit 31.7 % (42.0-52.0) L Mean Corpuscular Volume 103 FL (80-99) H Mean Corpuscular Hemoglobin 35.4 PG (27.0-31.0) H Mean Corpuscular Hemoglobin Concent 34.5 G/DL (32.0-36.0) Red Cell Distribution Width 13.5 % (11.6-14.8) Platelet Count 293 K/UL (150-450) Mean Platelet Volume 6.7 FL (6.5-10.1) Neutrophils (%) (Auto) 61.4 % (45.0-75.0) Lymphocytes (%) (Auto) 28.2 % (20.0-45.0) Monocytes (%) (Auto) 6.6 % (1.0-10.0) Eosinophils (%) (Auto) 3.2 % (0.0-3.0) H Basophils (%) (Auto) 0.6 % (0.0-2.0) Sodium Level 142 MMOL/L (136-145) Potassium Level 3.7 MMOL/L (3.5-5.1) Chloride Level 106 MMOL/L (98-107) Carbon Dioxide Level 28 MMOL/L (21-32) Anion Gap 8 mmol/L (5-15) Blood Urea Nitrogen 17 mg/dL (7-18) Creatinine 1.0 MG/DL (0.55-1.30) Estimat Glomerular Filtration Rate > 60 mL/min (>60) Glucose Level 119 MG/DL (74-106) H Calcium Level 9.3 MG/DL (8.5-10.1) Phosphorus Level 4.6 MG/DL (2.5-4.9) Magnesium Level 2.0 MG/DL (1.8-2.4) Total Bilirubin 0.2 MG/DL (0.2-1.0) Aspartate Amino Transf (AST/SGOT) 11 U/L (15-37) L Alanine Aminotransferase (ALT/SGPT) 10 U/L (12-78) L Alkaline Phosphatase 68 U/L (46-116) Total Protein 7.0 G/DL (6.4-8.2) Albumin 2.5 G/DL (3.4-5.0) L Globulin 4.5 g/dL Albumin/Globulin Ratio 0.6 (1.0-2.7) L Arterial Blood pH 7.366 (7.350-7.450) 7.422 (7.350-7.450) Arterial Blood Partial Pressure CO2 52.5 mmHg (35.0-45.0) H 35.6 mmHg (35.0-45.0) Arterial Blood Partial Pressure O2 71.3 mmHg (75.0-100.0) L 65.3 mmHg (75.0-100.0) L Arterial Blood HCO3 29.4 mmol/L (22.0-26.0) H 22.7 mmol/L (22.0-26.0) Arterial Blood Oxygen Saturation 93.5 % (92.0-98.0) 94.0 % (92.0-98.0) Arterial Blood Base Excess 3.1 -1.3 Anthony Test Positive Positive Objective HEENT: Atraumatic and normocephalic. ENT, pupils are equal, round, and reactive to light and accommodation. Pale conjunctiva, intubated. NECK: JVP cannot be assessed. No carotid bruit. Carotid upstrokes 2+ bilaterally. LUNGS: Diminished BS left lung. CVS: Normal S1, S2. no murmurs, gallops or rubs. PMI is at fourth intercostal space in the midclavicular line. ABDOMEN: Soft, nontender, and nondistended. No hepatosplenomegaly. Positive bowel sounds. EXTREMITIES: No evidence of edema, clubbing, or cyanosis. CALLUM BARON Jul 08, 2017 23:33
[2017-07-09] VITALS (18 sets, daily range): BP systolic 99–122; BP diastolic 57–72
--- NOTE | 2017-07-09 02:30 | Progress Note ---
DATE: 07/08/2017 SUBJECTIVE: The patient is a 71-year-old patient with respiratory failure. Seen and assessed in the ICU. He continues to have altered mental status and confusion. PLAN: Plan is he will continue to be followed throughout his hospital course to prevent any decline in his cognition. Chart was reviewed and discussed with staff. Seen and assessed at bedside. Devon Castillo M.D. DR: CIRO JOB#: [id number] CC:
[2017-07-09 05:52] LABS: BASOPHILS % (AUTO) 0.9 % (0.0-2.0); EOSINOPHILS % (AUTO) 1.9 % (0.0-3.0); HEMATOCRIT 33.3 % (42.0-52.0); HEMOGLOBIN 11.4 G/DL (14.2-18.0); LYMPHOCYTES % (AUTO) 19.6 % (20.0-45.0); MEAN CORPUSCULAR VOLUME 101 FL (80-99); MONOCYTES % (AUTO) 7.5 % (1.0-10.0); NEUTROPHILS % (AUTO) 70.2 % (45.0-75.0); PLATELET COUNT 320 K/UL (150-450); RED CELL DISTRIBUTION WIDTH 13.2 % (11.6-14.8); WHITE BLOOD COUNT 13.8 K/UL (4.8-10.8)
[2017-07-09 06:39] LABS: ALANINE AMINOTRANSFERASE 10 U/L (12-78); ALBUMIN 2.6 G/DL (3.4-5.0); ALBUMIN/GLOBULIN RATIO 0.6 (1.0-2.7); ALKALINE PHOSPHATASE 71 U/L (46-116); ANION GAP 9 mmol/L (5-15); ASPARTATE AMINO TRANSFERASE 12 U/L (15-37); BILIRUBIN,TOTAL 0.3 MG/DL (0.2-1.0); BLOOD UREA NITROGEN 21 mg/dL (7-18); CALCIUM 9.3 MG/DL (8.5-10.1); CARBON DIOXIDE 27 MMOL/L (21-32); CHLORIDE 103 MMOL/L (98-107); PHOSPHORUS 3.8 MG/DL (2.5-4.9); POTASSIUM 3.4 MMOL/L (3.5-5.1); SODIUM 139 MMOL/L (136-145)
[2017-07-09] MEDS ORDERED: Pantoprazole Inj IV SCH (09:00)
[2017-07-09] MEDS: Theophylline ER 100mg ORAL SCH ×2 (09:00→20:59)
[2017-07-09] MEDS: Solu-MEDROL 125mg Inj IV SCH (09:00)
[2017-07-09] MEDS: carBAMazepine 200mg tab ORAL SCH ×4 (09:00→20:59)
[2017-07-09] MEDS: Pantoprazole Inj IV SCH (09:00)
[2017-07-09] MEDS: Docusate 100mg cap ORAL SCH (09:00)
[2017-07-09] MEDS: Heparin 5000 units/ml inj SUBQ SCH ×2 (09:00→21:02)
--- NOTE | 2017-07-09 10:24 | Pulmonolgy Critical Care Note ---
Critical Care - Asmt/Plan Problems: (1) Acute encephalopathy (2) Acute respiratory failure (3) Collapse of left lung (4) UTI (urinary tract infection) (5) Schizophrenia (6) History of pacemaker (7) Fever Respiratory: adjust tidal volume, monitor respiratory rate, adjust FIO2 Cardiac: continue to monitor HR/BP Renal: F/U I&O, keep IV fluid Infectious Disease: check cultures Gastrointestinal: continue feedings/current rate, hold feedings Endocrine: monitor blood sugar, check HgA1C, continue sliding scale insulin Hematologic: monitor H/H, transfuse if hgb<8.5 Neurologic: PRN Morphine, keep patient comfortable Affect: PRN ativan Prophylaxis: Protonix Disposition: keep in ICU 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, 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 with: nurses, 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, 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 - Objective Last 24 Hour Vital Signs Date Time Temp Pulse Resp B/P (MAP) Pulse Ox O2 Delivery O2 Flow Rate FiO2 07/09/17 09:00 103 16 40 07/09/17 07:13 109 16 40 07/09/17 06:00 100 16 104/64 100 Mechanical Ventilator 40 07/09/17 05:17 81 16 40 07/09/17 05:00 83 16 109/65 100 Mechanical Ventilator 40 07/09/17 04:00 86 07/09/17 04:00 98.8 86 16 122/72 100 Mechanical Ventilator 40 07/09/17 04:00 40 07/09/17 03:20 80 16 40 07/09/17 03:00 95 16 110/61 100 Mechanical Ventilator 40 07/09/17 02:00 92 16 114/61 100 Mechanical Ventilator 40 07/09/17 01:00 82 16 40 07/09/17 01:00 82 16 106/66 100 Mechanical Ventilator 40 07/09/17 00:00 99.2 80 16 115/71 100 Mechanical Ventilator 40 07/09/17 00:00 80 07/08/17 23:00 82 16 114/74 100 Mechanical Ventilator 40 07/08/17 22:47 90 16 50 07/08/17 22:00 97 16 113/70 100 Mechanical Ventilator 50 07/08/17 21:00 106 18 125/73 100 Mechanical Ventilator 50 07/08/17 20:48 102 16 50 07/08/17 20:00 99.0 86 18 135/81 100 Mechanical Ventilator 50 07/08/17 20:00 50 07/08/17 20:00 86 07/08/17 19:14 81 6 Mechanical Ventilator 50 07/08/17 19:13 81 16 50 07/08/17 19:00 81 18 127/74 100 Mechanical Ventilator 60 07/08/17 18:00 87 16 125/74 100 Mechanical Ventilator 60 07/08/17 17:00 98.6 95 16 123/69 100 Venturi Mask 60 07/08/17 16:43 82 16 60 07/08/17 16:00 91 07/08/17 16:00 77 17 108/63 100 Mechanical Ventilator 60 07/08/17 16:00 60 07/08/17 15:00 81 16 113/69 100 Mechanical Ventilator 60 07/08/17 14:51 121/65 07/08/17 14:49 90 16 60 07/08/17 14:00 68 20 121/65 100 Mechanical Ventilator 60 07/08/17 13:00 98.2 79 16 130/69 100 Venturi Mask 55 07/08/17 12:30 90 16 60 07/08/17 12:00 89 16 130/62 99 Venturi Mask 55 07/08/17 12:00 60 07/08/17 12:00 68 07/08/17 11:05 60 07/08/17 11:00 107 16 125/69 94 Venturi Mask 55 Status: awake Condition: grave HEENT: atraumatic Neck: full ROM Lungs: chest wall tender Heart: HR/BP unstable, regular Abdomen: non-tender, active bowel sounds Extremities: no C/C/E, edema Decubiti: stage Critical Care - Subjective ROS Limited/Unobtainable: No Interval Events: left lung opened up Condition: critical FI02: 40 Vent Support Breath Rate: 16 Vent Support Mode: AC Vent Tidal Volume: 600 Sputum Amount: Large PIP: 28 Tube Feeding Amount: 65 CXR: left lung clear ET-Tube: 8.0 ET Position: 24 Labs: Laboratory Tests Test 07/08/17 11:05 07/09/17 04:40 07/09/17 09:10 Arterial Blood pH 7.422 (7.350-7.450) 7.472 (7.350-7.450) Arterial Blood Partial Pressure CO2 35.6 mmHg (35.0-45.0) 38.5 mmHg (35.0-45.0) Arterial Blood Partial Pressure O2 65.3 mmHg (75.0-100.0) L 121.0 mmHg (75.0-100.0) H Arterial Blood HCO3 22.7 mmol/L (22.0-26.0) 27.5 mmol/L (22.0-26.0) H Arterial Blood Oxygen Saturation 94.0 % (92.0-98.0) 98.2 % (92.0-98.0) H Arterial Blood Base Excess -1.3 3.7 Anthony Test Positive Positive White Blood Count 13.8 K/UL (4.8-10.8) H Red Blood Count 3.30 M/UL (4.70-6.10) L Hemoglobin 11.4 G/DL (14.2-18.0) L Hematocrit 33.3 % (42.0-52.0) L Mean Corpuscular Volume 101 FL (80-99) H Mean Corpuscular Hemoglobin 34.5 PG (27.0-31.0) H Mean Corpuscular Hemoglobin Concent 34.1 G/DL (32.0-36.0) Red Cell Distribution Width 13.2 % (11.6-14.8) Platelet Count 320 K/UL (150-450) Mean Platelet Volume 6.2 FL (6.5-10.1) L Neutrophils (%) (Auto) 70.2 % (45.0-75.0) Lymphocytes (%) (Auto) 19.6 % (20.0-45.0) L Monocytes (%) (Auto) 7.5 % (1.0-10.0) Eosinophils (%) (Auto) 1.9 % (0.0-3.0) Basophils (%) (Auto) 0.9 % (0.0-2.0) Sodium Level 139 MMOL/L (136-145) Potassium Level 3.4 MMOL/L (3.5-5.1) L Chloride Level 103 MMOL/L (98-107) Carbon Dioxide Level 27 MMOL/L (21-32) Anion Gap 9 mmol/L (5-15) Blood Urea Nitrogen 21 mg/dL (7-18) H Creatinine 1.0 MG/DL (0.55-1.30) Estimat Glomerular Filtration Rate > 60 mL/min (>60) Glucose Level 127 MG/DL (74-106) H Calcium Level 9.3 MG/DL (8.5-10.1) Phosphorus Level 3.8 MG/DL (2.5-4.9) Magnesium Level 2.1 MG/DL (1.8-2.4) Total Bilirubin 0.3 MG/DL (0.2-1.0) Aspartate Amino Transf (AST/SGOT) 12 U/L (15-37) L Alanine Aminotransferase (ALT/SGPT) 10 U/L (12-78) L Alkaline Phosphatase 71 U/L (46-116) Total Protein 7.2 G/DL (6.4-8.2) Albumin 2.6 G/DL (3.4-5.0) L Globulin 4.6 g/dL Albumin/Globulin Ratio 0.6 (1.0-2.7) L GWEN MARTE Jul 09, 2017 10:24
--- NOTE | 2017-07-09 12:20 | Diagnostic Imaging Report ---
Indication: DYSPNEA Technique: One view of the chest Comparison: 07/08/2017 Findings: Improved position of endotracheal tube, now slightly retracted. Nasogastric tube projects beyond the image. 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 There is some lateral pleural thickening. Previously demonstrated basilar parenchymal disease has overall improved considerably since previous days exam. The heart size is normal. Impression: Improved endotracheal tube position, over one day Improved bilateral basilar pulmonary parenchymal disease Other stable findings as described
--- NOTE | 2017-07-09 13:24 | Nephrology Progress Note ---
Assessment/Plan Assessment 1. hypokalemia 2. respiratory failure 3. Hypertension. 4. History of chronic obstructive pulmonary disease. Plan plan to d/c IVF continue iv antibiotic monitoring renal function monitoring electrolyte replace as need avoid any NSAID Subjective ROS Limited/Unobtainable: Yes Constitutional: Reports: no symptoms HEENT: Reports: no symptoms Genitourinary: Reports: no symptoms Neurologic/Psychiatric: Reports: no symptoms Subjective reintubated no changes in MS Objective Objective Last 24 Hour Vital Signs Date Time Temp Pulse Resp B/P (MAP) Pulse Ox O2 Delivery O2 Flow Rate FiO2 07/09/17 13:02 102 16 40 07/09/17 12:00 98.7 75 18 100 Mechanical Ventilator 40 07/09/17 12:00 40 07/09/17 12:00 87 07/09/17 11:00 80 20 100 Mechanical Ventilator 40 07/09/17 10:53 88 16 40 07/09/17 10:00 77 19 100 Mechanical Ventilator 40 07/09/17 09:00 40 07/09/17 09:00 103 16 40 07/09/17 09:00 82 20 100 Mechanical Ventilator 40 07/09/17 08:00 98.6 77 18 100 Mechanical Ventilator 40 07/09/17 08:00 88 07/09/17 07:13 109 16 40 07/09/17 07:00 98 18 100 Mechanical Ventilator 40 07/09/17 06:00 100 16 104/64 100 Mechanical Ventilator 40 07/09/17 05:17 81 16 40 07/09/17 05:00 83 16 109/65 100 Mechanical Ventilator 40 07/09/17 04:00 86 07/09/17 04:00 98.8 86 16 122/72 100 Mechanical Ventilator 40 07/09/17 04:00 40 07/09/17 03:20 80 16 40 07/09/17 03:00 95 16 110/61 100 Mechanical Ventilator 40 07/09/17 02:00 92 16 114/61 100 Mechanical Ventilator 40 07/09/17 01:00 82 16 40 07/09/17 01:00 82 16 106/66 100 Mechanical Ventilator 40 07/09/17 00:00 99.2 80 16 115/71 100 Mechanical Ventilator 40 07/09/17 00:00 80 07/08/17 23:00 82 16 114/74 100 Mechanical Ventilator 40 07/08/17 22:47 90 16 50 07/08/17 22:00 97 16 113/70 100 Mechanical Ventilator 50 07/08/17 21:00 106 18 125/73 100 Mechanical Ventilator 50 07/08/17 20:48 102 16 50 07/08/17 20:00 99.0 86 18 135/81 100 Mechanical Ventilator 50 07/08/17 20:00 50 07/08/17 20:00 86 07/08/17 19:14 81 6 Mechanical Ventilator 50 07/08/17 19:13 81 16 50 07/08/17 19:00 81 18 127/74 100 Mechanical Ventilator 60 07/08/17 18:00 87 16 125/74 100 Mechanical Ventilator 60 07/08/17 17:00 98.6 95 16 123/69 100 Venturi Mask 60 07/08/17 16:43 82 16 60 07/08/17 16:00 91 07/08/17 16:00 77 17 108/63 100 Mechanical Ventilator 60 07/08/17 16:00 60 07/08/17 15:00 81 16 113/69 100 Mechanical Ventilator 60 07/08/17 14:51 121/65 07/08/17 14:49 90 16 60 07/08/17 14:00 68 20 121/65 100 Mechanical Ventilator 60 Intake and Output 07/09/17 07/10/17 19:00 07:00 Intake Total 390 ml Output Total 175 ml Balance 215 ml Tube Feeding 390 ml Output Urine Total 175 ml Laboratory Tests 07/09/17 04:40: White Blood Count 13.8H, Red Blood Count 3.30L, Hemoglobin 11.4L, Hematocrit 33.3L, Mean Corpuscular Volume 101H, Mean Corpuscular Hemoglobin 34.5H, Mean Corpuscular Hemoglobin Concent 34.1, Red Cell Distribution Width 13.2, Platelet Count 320, Mean Platelet Volume 6.2L, Neutrophils (%) (Auto) 70.2, Lymphocytes ( %) (Auto) 19.6L, Monocytes (%) (Auto) 7.5, Eosinophils (%) (Auto) 1.9, Basophils (%) (Auto) 0.9, Sodium Level 139, Potassium Level 3.4L, Chloride Level 103, Carbon Dioxide Level 27, Anion Gap 9, Blood Urea Nitrogen 21H, Creatinine 1.0, Estimat Glomerular Filtration Rate > 60, Glucose Level 127H, Calcium Level 9.3, Phosphorus Level 3.8, Magnesium Level 2.1, Total Bilirubin 0.3, Aspartate Amino Transf (AST/SGOT) 12L, Alanine Aminotransferase (ALT/SGPT) 10L, Alkaline Phosphatase 71, Total Protein 7.2, Albumin 2.6L, Globulin 4.6, Albumin/Globulin Ratio 0.6L 07/09/17 09:10: Arterial Blood pH 7.472H, Arterial Blood Partial Pressure CO2 38.5, Arterial Blood Partial Pressure O2 121.0H, Arterial Blood HCO3 27.5H, Arterial Blood Oxygen Saturation 98.2H, Arterial Blood Base Excess 3.7, Anthony Test Positive Height (Feet): 5 Height (Inches): 11.00 Weight (Pounds): 121 Objective HEAD AND NECK: No JVP. No LAD. No thyromegaly. Extraocular movements intact. Pupils are reactive to light and accommodation. LUNGS: Clear to auscultation. CARDIAC: Regular rate and rhythm. S1 and S2. No murmur. No rub. ABDOMEN: Soft, nontender, and nondistended. EXTREMITIES: No edema. No clubbing. No cyanosis. NEUROLOGIC: The patient opened up his eyes, not following verbal commands. RANCHO SYKES Jul 09, 2017 13:24
--- NOTE | 2017-07-09 14:37 | General Progress Note ---
Assessment/Plan Problem List: (1) Respiratory failure ICD Codes: J96.90 - Respiratory failure, unspecified, unspecified whether with hypoxia or hypercapnia SNOMED: 798542048 (2) Sepsis ICD Codes: A41.9 - Sepsis, unspecified organism SNOMED: 43341659 (3) UTI (urinary tract infection) ICD Codes: N39.0 - Urinary tract infection, site not specified SNOMED: 65999473 (4) Schizophrenia ICD Codes: F20.9 - Schizophrenia, unspecified SNOMED: 10709631 (5) History of pacemaker ICD Codes: Z95.0 - Presence of cardiac pacemaker SNOMED: 663236364 (6) Limited mobility ICD Codes: Z74.09 - Other reduced mobility SNOMED: 4538853 Status: unchanged Assessment/Plan o2 pul tx ot pt diet abx cbc bmp am ltach transfer Subjective Allergies: Coded Allergies: CHLORPROMAZINE (Verified Allergy, Unknown, 06/23/17) ERYTHROMYCIN BASE (Verified Allergy, Unknown, 06/23/17) Uncoded Allergies: TAPE (Allergy, Unknown, 06/23/17) All Systems: reviewed and negative except above Subjective intubated sedated in icu Objective Last 24 Hour Vital Signs Date Time Temp Pulse Resp B/P (MAP) Pulse Ox O2 Delivery O2 Flow Rate FiO2 07/09/17 13:02 102 16 40 07/09/17 12:00 98.7 75 18 100 Mechanical Ventilator 40 07/09/17 12:00 40 07/09/17 12:00 87 07/09/17 11:00 80 20 100 Mechanical Ventilator 40 07/09/17 10:53 88 16 40 07/09/17 10:00 77 19 100 Mechanical Ventilator 40 07/09/17 09:00 40 07/09/17 09:00 103 16 40 07/09/17 09:00 82 20 100 Mechanical Ventilator 40 07/09/17 08:00 98.6 77 18 100 Mechanical Ventilator 40 07/09/17 08:00 88 07/09/17 07:13 109 16 40 07/09/17 07:00 98 18 100 Mechanical Ventilator 40 07/09/17 06:00 100 16 104/64 100 Mechanical Ventilator 40 07/09/17 05:17 81 16 40 07/09/17 05:00 83 16 109/65 100 Mechanical Ventilator 40 07/09/17 04:00 86 07/09/17 04:00 98.8 86 16 122/72 100 Mechanical Ventilator 40 07/09/17 04:00 40 07/09/17 03:20 80 16 40 07/09/17 03:00 95 16 110/61 100 Mechanical Ventilator 40 07/09/17 02:00 92 16 114/61 100 Mechanical Ventilator 40 07/09/17 01:00 82 16 40 07/09/17 01:00 82 16 106/66 100 Mechanical Ventilator 40 07/09/17 00:00 99.2 80 16 115/71 100 Mechanical Ventilator 40 07/09/17 00:00 80 07/08/17 23:00 82 16 114/74 100 Mechanical Ventilator 40 07/08/17 22:47 90 16 50 07/08/17 22:00 97 16 113/70 100 Mechanical Ventilator 50 07/08/17 21:00 106 18 125/73 100 Mechanical Ventilator 50 07/08/17 20:48 102 16 50 07/08/17 20:00 99.0 86 18 135/81 100 Mechanical Ventilator 50 07/08/17 20:00 50 07/08/17 20:00 86 07/08/17 19:14 81 6 Mechanical Ventilator 50 07/08/17 19:13 81 16 50 07/08/17 19:00 81 18 127/74 100 Mechanical Ventilator 60 07/08/17 18:00 87 16 125/74 100 Mechanical Ventilator 60 07/08/17 17:00 98.6 95 16 123/69 100 Venturi Mask 60 07/08/17 16:43 82 16 60 07/08/17 16:00 91 07/08/17 16:00 77 17 108/63 100 Mechanical Ventilator 60 07/08/17 16:00 60 07/08/17 15:00 81 16 113/69 100 Mechanical Ventilator 60 07/08/17 14:51 121/65 07/08/17 14:49 90 16 60 Intake and Output 07/09/17 07/10/17 19:00 07:00 Intake Total 390 ml Output Total 175 ml Balance 215 ml Tube Feeding 390 ml Output Urine Total 175 ml Laboratory Tests 07/09/17 04:40: White Blood Count 13.8H, Red Blood Count 3.30L, Hemoglobin 11.4L, Hematocrit 33.3L, Mean Corpuscular Volume 101H, Mean Corpuscular Hemoglobin 34.5H, Mean Corpuscular Hemoglobin Concent 34.1, Red Cell Distribution Width 13.2, Platelet Count 320, Mean Platelet Volume 6.2L, Neutrophils (%) (Auto) 70.2, Lymphocytes ( %) (Auto) 19.6L, Monocytes (%) (Auto) 7.5, Eosinophils (%) (Auto) 1.9, Basophils (%) (Auto) 0.9, Sodium Level 139, Potassium Level 3.4L, Chloride Level 103, Carbon Dioxide Level 27, Anion Gap 9, Blood Urea Nitrogen 21H, Creatinine 1.0, Estimat Glomerular Filtration Rate > 60, Glucose Level 127H, Calcium Level 9.3, Phosphorus Level 3.8, Magnesium Level 2.1, Total Bilirubin 0.3, Aspartate Amino Transf (AST/SGOT) 12L, Alanine Aminotransferase (ALT/SGPT) 10L, Alkaline Phosphatase 71, Total Protein 7.2, Albumin 2.6L, Globulin 4.6, Albumin/Globulin Ratio 0.6L 07/09/17 09:10: Arterial Blood pH 7.472H, Arterial Blood Partial Pressure CO2 38.5, Arterial Blood Partial Pressure O2 121.0H, Arterial Blood HCO3 27.5H, Arterial Blood Oxygen Saturation 98.2H, Arterial Blood Base Excess 3.7, Anthony Test Positive Height (Feet): 5 Height (Inches): 11.00 Weight (Pounds): 121 General Appearance: lethargic EENT: normal ENT inspection Neck: normal alignment Cardiovascular: normal peripheral pulses, normal rate, regular rhythm Respiratory/Chest: chest wall non-tender, lungs clear, decreased breath sounds Abdomen: normal bowel sounds, non tender, soft Extremities: normal inspection Edema: no edema noted Arm (L), no edema noted Arm (R), no edema noted Leg (L), no edema noted Leg (R), no edema noted Pedal (L), no edema noted Pedal (R), no edema noted Generalized Neurologic: motor weakness Skin: normal pigmentation, warm/dry QUINTON HUMPHRIES Jul 09, 2017 14:37
--- NOTE | 2017-07-09 14:37 | General Progress Note ---
Assessment/Plan Problem List: (1) Respiratory failure ICD Codes: J96.90 - Respiratory failure, unspecified, unspecified whether with hypoxia or hypercapnia SNOMED: 188914684 (2) Sepsis ICD Codes: A41.9 - Sepsis, unspecified organism SNOMED: 84257063 (3) UTI (urinary tract infection) ICD Codes: N39.0 - Urinary tract infection, site not specified SNOMED: 19460241 (4) Schizophrenia ICD Codes: F20.9 - Schizophrenia, unspecified SNOMED: 02956396 (5) History of pacemaker ICD Codes: Z95.0 - Presence of cardiac pacemaker SNOMED: 332015208 (6) Limited mobility ICD Codes: Z74.09 - Other reduced mobility SNOMED: 0874064 Status: unchanged Assessment/Plan o2 pul tx ot pt diet abx cbc bmp am ltach transfer Subjective Allergies: Coded Allergies: CHLORPROMAZINE (Verified Allergy, Unknown, 06/23/17) ERYTHROMYCIN BASE (Verified Allergy, Unknown, 06/23/17) Uncoded Allergies: TAPE (Allergy, Unknown, 06/23/17) All Systems: reviewed and negative except above Subjective intubated sedated in icu Objective Last 24 Hour Vital Signs Date Time Temp Pulse Resp B/P (MAP) Pulse Ox O2 Delivery O2 Flow Rate FiO2 07/09/17 13:02 102 16 40 07/09/17 12:00 98.7 75 18 100 Mechanical Ventilator 40 07/09/17 12:00 40 07/09/17 12:00 87 07/09/17 11:00 80 20 100 Mechanical Ventilator 40 07/09/17 10:53 88 16 40 07/09/17 10:00 77 19 100 Mechanical Ventilator 40 07/09/17 09:00 40 07/09/17 09:00 103 16 40 07/09/17 09:00 82 20 100 Mechanical Ventilator 40 07/09/17 08:00 98.6 77 18 100 Mechanical Ventilator 40 07/09/17 08:00 88 07/09/17 07:13 109 16 40 07/09/17 07:00 98 18 100 Mechanical Ventilator 40 07/09/17 06:00 100 16 104/64 100 Mechanical Ventilator 40 07/09/17 05:17 81 16 40 07/09/17 05:00 83 16 109/65 100 Mechanical Ventilator 40 07/09/17 04:00 86 07/09/17 04:00 98.8 86 16 122/72 100 Mechanical Ventilator 40 07/09/17 04:00 40 07/09/17 03:20 80 16 40 07/09/17 03:00 95 16 110/61 100 Mechanical Ventilator 40 07/09/17 02:00 92 16 114/61 100 Mechanical Ventilator 40 07/09/17 01:00 82 16 40 07/09/17 01:00 82 16 106/66 100 Mechanical Ventilator 40 07/09/17 00:00 99.2 80 16 115/71 100 Mechanical Ventilator 40 07/09/17 00:00 80 07/08/17 23:00 82 16 114/74 100 Mechanical Ventilator 40 07/08/17 22:47 90 16 50 07/08/17 22:00 97 16 113/70 100 Mechanical Ventilator 50 07/08/17 21:00 106 18 125/73 100 Mechanical Ventilator 50 07/08/17 20:48 102 16 50 07/08/17 20:00 99.0 86 18 135/81 100 Mechanical Ventilator 50 07/08/17 20:00 50 07/08/17 20:00 86 07/08/17 19:14 81 6 Mechanical Ventilator 50 07/08/17 19:13 81 16 50 07/08/17 19:00 81 18 127/74 100 Mechanical Ventilator 60 07/08/17 18:00 87 16 125/74 100 Mechanical Ventilator 60 07/08/17 17:00 98.6 95 16 123/69 100 Venturi Mask 60 07/08/17 16:43 82 16 60 07/08/17 16:00 91 07/08/17 16:00 77 17 108/63 100 Mechanical Ventilator 60 07/08/17 16:00 60 07/08/17 15:00 81 16 113/69 100 Mechanical Ventilator 60 07/08/17 14:51 121/65 07/08/17 14:49 90 16 60 Intake and Output 07/09/17 07/10/17 19:00 07:00 Intake Total 390 ml Output Total 175 ml Balance 215 ml Tube Feeding 390 ml Output Urine Total 175 ml Laboratory Tests 07/09/17 04:40: White Blood Count 13.8H, Red Blood Count 3.30L, Hemoglobin 11.4L, Hematocrit 33.3L, Mean Corpuscular Volume 101H, Mean Corpuscular Hemoglobin 34.5H, Mean Corpuscular Hemoglobin Concent 34.1, Red Cell Distribution Width 13.2, Platelet Count 320, Mean Platelet Volume 6.2L, Neutrophils (%) (Auto) 70.2, Lymphocytes ( %) (Auto) 19.6L, Monocytes (%) (Auto) 7.5, Eosinophils (%) (Auto) 1.9, Basophils (%) (Auto) 0.9, Sodium Level 139, Potassium Level 3.4L, Chloride Level 103, Carbon Dioxide Level 27, Anion Gap 9, Blood Urea Nitrogen 21H, Creatinine 1.0, Estimat Glomerular Filtration Rate > 60, Glucose Level 127H, Calcium Level 9.3, Phosphorus Level 3.8, Magnesium Level 2.1, Total Bilirubin 0.3, Aspartate Amino Transf (AST/SGOT) 12L, Alanine Aminotransferase (ALT/SGPT) 10L, Alkaline Phosphatase 71, Total Protein 7.2, Albumin 2.6L, Globulin 4.6, Albumin/Globulin Ratio 0.6L 07/09/17 09:10: Arterial Blood pH 7.472H, Arterial Blood Partial Pressure CO2 38.5, Arterial Blood Partial Pressure O2 121.0H, Arterial Blood HCO3 27.5H, Arterial Blood Oxygen Saturation 98.2H, Arterial Blood Base Excess 3.7, Anthony Test Positive Height (Feet): 5 Height (Inches): 11.00 Weight (Pounds): 121 General Appearance: lethargic EENT: normal ENT inspection Neck: normal alignment Cardiovascular: normal peripheral pulses, normal rate, regular rhythm Respiratory/Chest: chest wall non-tender, lungs clear, decreased breath sounds Abdomen: normal bowel sounds, non tender, soft Extremities: normal inspection Edema: no edema noted Arm (L), no edema noted Arm (R), no edema noted Leg (L), no edema noted Leg (R), no edema noted Pedal (L), no edema noted Pedal (R), no edema noted Generalized Neurologic: motor weakness Skin: normal pigmentation, warm/dry QUINTON HUMPHRIES Jul 09, 2017 14:37
--- NOTE | 2017-07-09 14:37 | General Progress Note ---
Assessment/Plan Problem List: (1) Respiratory failure ICD Codes: J96.90 - Respiratory failure, unspecified, unspecified whether with hypoxia or hypercapnia SNOMED: 142609766 (2) Sepsis ICD Codes: A41.9 - Sepsis, unspecified organism SNOMED: 41716937 (3) UTI (urinary tract infection) ICD Codes: N39.0 - Urinary tract infection, site not specified SNOMED: 58959127 (4) Schizophrenia ICD Codes: F20.9 - Schizophrenia, unspecified SNOMED: 68191122 (5) History of pacemaker ICD Codes: Z95.0 - Presence of cardiac pacemaker SNOMED: 198775488 (6) Limited mobility ICD Codes: Z74.09 - Other reduced mobility SNOMED: 7423078 Status: unchanged Assessment/Plan o2 pul tx ot pt diet abx cbc bmp am ltach transfer Subjective Allergies: Coded Allergies: CHLORPROMAZINE (Verified Allergy, Unknown, 06/23/17) ERYTHROMYCIN BASE (Verified Allergy, Unknown, 06/23/17) Uncoded Allergies: TAPE (Allergy, Unknown, 06/23/17) All Systems: reviewed and negative except above Subjective intubated sedated in icu Objective Last 24 Hour Vital Signs Date Time Temp Pulse Resp B/P (MAP) Pulse Ox O2 Delivery O2 Flow Rate FiO2 07/09/17 13:02 102 16 40 07/09/17 12:00 98.7 75 18 100 Mechanical Ventilator 40 07/09/17 12:00 40 07/09/17 12:00 87 07/09/17 11:00 80 20 100 Mechanical Ventilator 40 07/09/17 10:53 88 16 40 07/09/17 10:00 77 19 100 Mechanical Ventilator 40 07/09/17 09:00 40 07/09/17 09:00 103 16 40 07/09/17 09:00 82 20 100 Mechanical Ventilator 40 07/09/17 08:00 98.6 77 18 100 Mechanical Ventilator 40 07/09/17 08:00 88 07/09/17 07:13 109 16 40 07/09/17 07:00 98 18 100 Mechanical Ventilator 40 07/09/17 06:00 100 16 104/64 100 Mechanical Ventilator 40 07/09/17 05:17 81 16 40 07/09/17 05:00 83 16 109/65 100 Mechanical Ventilator 40 07/09/17 04:00 86 07/09/17 04:00 98.8 86 16 122/72 100 Mechanical Ventilator 40 07/09/17 04:00 40 07/09/17 03:20 80 16 40 07/09/17 03:00 95 16 110/61 100 Mechanical Ventilator 40 07/09/17 02:00 92 16 114/61 100 Mechanical Ventilator 40 07/09/17 01:00 82 16 40 07/09/17 01:00 82 16 106/66 100 Mechanical Ventilator 40 07/09/17 00:00 99.2 80 16 115/71 100 Mechanical Ventilator 40 07/09/17 00:00 80 07/08/17 23:00 82 16 114/74 100 Mechanical Ventilator 40 07/08/17 22:47 90 16 50 07/08/17 22:00 97 16 113/70 100 Mechanical Ventilator 50 07/08/17 21:00 106 18 125/73 100 Mechanical Ventilator 50 07/08/17 20:48 102 16 50 07/08/17 20:00 99.0 86 18 135/81 100 Mechanical Ventilator 50 07/08/17 20:00 50 07/08/17 20:00 86 07/08/17 19:14 81 6 Mechanical Ventilator 50 07/08/17 19:13 81 16 50 07/08/17 19:00 81 18 127/74 100 Mechanical Ventilator 60 07/08/17 18:00 87 16 125/74 100 Mechanical Ventilator 60 07/08/17 17:00 98.6 95 16 123/69 100 Venturi Mask 60 07/08/17 16:43 82 16 60 07/08/17 16:00 91 07/08/17 16:00 77 17 108/63 100 Mechanical Ventilator 60 07/08/17 16:00 60 07/08/17 15:00 81 16 113/69 100 Mechanical Ventilator 60 07/08/17 14:51 121/65 07/08/17 14:49 90 16 60 Intake and Output 07/09/17 07/10/17 19:00 07:00 Intake Total 390 ml Output Total 175 ml Balance 215 ml Tube Feeding 390 ml Output Urine Total 175 ml Laboratory Tests 07/09/17 04:40: White Blood Count 13.8H, Red Blood Count 3.30L, Hemoglobin 11.4L, Hematocrit 33.3L, Mean Corpuscular Volume 101H, Mean Corpuscular Hemoglobin 34.5H, Mean Corpuscular Hemoglobin Concent 34.1, Red Cell Distribution Width 13.2, Platelet Count 320, Mean Platelet Volume 6.2L, Neutrophils (%) (Auto) 70.2, Lymphocytes ( %) (Auto) 19.6L, Monocytes (%) (Auto) 7.5, Eosinophils (%) (Auto) 1.9, Basophils (%) (Auto) 0.9, Sodium Level 139, Potassium Level 3.4L, Chloride Level 103, Carbon Dioxide Level 27, Anion Gap 9, Blood Urea Nitrogen 21H, Creatinine 1.0, Estimat Glomerular Filtration Rate > 60, Glucose Level 127H, Calcium Level 9.3, Phosphorus Level 3.8, Magnesium Level 2.1, Total Bilirubin 0.3, Aspartate Amino Transf (AST/SGOT) 12L, Alanine Aminotransferase (ALT/SGPT) 10L, Alkaline Phosphatase 71, Total Protein 7.2, Albumin 2.6L, Globulin 4.6, Albumin/Globulin Ratio 0.6L 07/09/17 09:10: Arterial Blood pH 7.472H, Arterial Blood Partial Pressure CO2 38.5, Arterial Blood Partial Pressure O2 121.0H, Arterial Blood HCO3 27.5H, Arterial Blood Oxygen Saturation 98.2H, Arterial Blood Base Excess 3.7, Anthony Test Positive Height (Feet): 5 Height (Inches): 11.00 Weight (Pounds): 121 General Appearance: lethargic EENT: normal ENT inspection Neck: normal alignment Cardiovascular: normal peripheral pulses, normal rate, regular rhythm Respiratory/Chest: chest wall non-tender, lungs clear, decreased breath sounds Abdomen: normal bowel sounds, non tender, soft Extremities: normal inspection Edema: no edema noted Arm (L), no edema noted Arm (R), no edema noted Leg (L), no edema noted Leg (R), no edema noted Pedal (L), no edema noted Pedal (R), no edema noted Generalized Neurologic: motor weakness Skin: normal pigmentation, warm/dry QUINTON HUMPHRIES Jul 09, 2017 14:37
[2017-07-09] MEDS: DOPamine 400mg/250ml 250 ML IV SCH (15:00)
[2017-07-09] MEDS ORDERED: NS 275ml ONE (15:08)
--- NOTE | 2017-07-09 17:28 | Infectious Diseases Prog Note ---
Assessment/Plan Problems: (1) Sepsis Assessment & Plan: WBC up again. New sepsis? Recheck cultures. Empiric vancomycin IV if worse. (2) Acute respiratory failure Assessment & Plan: Better. Status post bronch. (3) HCAP (healthcare-associated pneumonia) Assessment & Plan: SCx noted. Status post a course with vancomycin IV and Zosyn. Follow-up CXR better. (4) Collapse of left lung (5) Pyuria Assessment & Plan: UCx noted. Status post Zosyn. Subjective Allergies: Coded Allergies: CHLORPROMAZINE (Verified Allergy, Unknown, 06/23/17) ERYTHROMYCIN BASE (Verified Allergy, Unknown, 06/23/17) Uncoded Allergies: TAPE (Allergy, Unknown, 06/23/17) Objective Vital Signs Last 24 Hour Vital Signs Date Time Temp Pulse Resp B/P (MAP) Pulse Ox O2 Delivery O2 Flow Rate FiO2 07/09/17 17:08 75 16 40 07/09/17 16:00 88 07/09/17 16:00 96.9 18 100 Mechanical Ventilator 40 07/09/17 16:00 40 07/09/17 15:04 101 16 40 07/09/17 15:00 109/62 07/09/17 15:00 18 100 Mechanical Ventilator 40 07/09/17 14:00 18 100 Mechanical Ventilator 40 07/09/17 13:02 102 16 40 07/09/17 13:00 18 100 Mechanical Ventilator 40 07/09/17 12:00 98.7 75 18 100 Mechanical Ventilator 40 07/09/17 12:00 40 07/09/17 12:00 87 07/09/17 11:00 80 20 100 Mechanical Ventilator 40 07/09/17 10:53 88 16 40 07/09/17 10:00 77 19 100 Mechanical Ventilator 40 07/09/17 09:00 40 07/09/17 09:00 103 16 40 07/09/17 09:00 82 20 100 Mechanical Ventilator 40 07/09/17 08:00 98.6 77 18 100 Mechanical Ventilator 40 07/09/17 08:00 88 07/09/17 07:13 109 16 40 07/09/17 07:00 98 18 100 Mechanical Ventilator 40 07/09/17 06:00 100 16 104/64 100 Mechanical Ventilator 40 07/09/17 05:17 81 16 40 07/09/17 05:00 83 16 109/65 100 Mechanical Ventilator 40 07/09/17 04:00 86 07/09/17 04:00 98.8 86 16 122/72 100 Mechanical Ventilator 40 07/09/17 04:00 40 07/09/17 03:20 80 16 40 07/09/17 03:00 95 16 110/61 100 Mechanical Ventilator 40 07/09/17 02:00 92 16 114/61 100 Mechanical Ventilator 40 07/09/17 01:00 82 16 40 07/09/17 01:00 82 16 106/66 100 Mechanical Ventilator 40 07/09/17 00:00 99.2 80 16 115/71 100 Mechanical Ventilator 40 07/09/17 00:00 80 07/08/17 23:00 82 16 114/74 100 Mechanical Ventilator 40 07/08/17 22:47 90 16 50 07/08/17 22:00 97 16 113/70 100 Mechanical Ventilator 50 07/08/17 21:00 106 18 125/73 100 Mechanical Ventilator 50 07/08/17 20:48 102 16 50 07/08/17 20:00 99.0 86 18 135/81 100 Mechanical Ventilator 50 07/08/17 20:00 50 07/08/17 20:00 86 07/08/17 19:14 81 6 Mechanical Ventilator 50 07/08/17 19:13 81 16 50 07/08/17 19:00 81 18 127/74 100 Mechanical Ventilator 60 07/08/17 18:00 87 16 125/74 100 Mechanical Ventilator 60 Height (Feet): 5 Height (Inches): 11.00 Weight (Pounds): 121 Laboratory Tests Test 07/09/17 04:40 07/09/17 09:10 White Blood Count 13.8 K/UL (4.8-10.8) H Red Blood Count 3.30 M/UL (4.70-6.10) L Hemoglobin 11.4 G/DL (14.2-18.0) L Hematocrit 33.3 % (42.0-52.0) L Mean Corpuscular Volume 101 FL (80-99) H Mean Corpuscular Hemoglobin 34.5 PG (27.0-31.0) H Mean Corpuscular Hemoglobin Concent 34.1 G/DL (32.0-36.0) Red Cell Distribution Width 13.2 % (11.6-14.8) Platelet Count 320 K/UL (150-450) Mean Platelet Volume 6.2 FL (6.5-10.1) L Neutrophils (%) (Auto) 70.2 % (45.0-75.0) Lymphocytes (%) (Auto) 19.6 % (20.0-45.0) L Monocytes (%) (Auto) 7.5 % (1.0-10.0) Eosinophils (%) (Auto) 1.9 % (0.0-3.0) Basophils (%) (Auto) 0.9 % (0.0-2.0) Sodium Level 139 MMOL/L (136-145) Potassium Level 3.4 MMOL/L (3.5-5.1) L Chloride Level 103 MMOL/L (98-107) Carbon Dioxide Level 27 MMOL/L (21-32) Anion Gap 9 mmol/L (5-15) Blood Urea Nitrogen 21 mg/dL (7-18) H Creatinine 1.0 MG/DL (0.55-1.30) Estimat Glomerular Filtration Rate > 60 mL/min (>60) Glucose Level 127 MG/DL (74-106) H Calcium Level 9.3 MG/DL (8.5-10.1) Phosphorus Level 3.8 MG/DL (2.5-4.9) Magnesium Level 2.1 MG/DL (1.8-2.4) Total Bilirubin 0.3 MG/DL (0.2-1.0) Aspartate Amino Transf (AST/SGOT) 12 U/L (15-37) L Alanine Aminotransferase (ALT/SGPT) 10 U/L (12-78) L Alkaline Phosphatase 71 U/L (46-116) Total Protein 7.2 G/DL (6.4-8.2) Albumin 2.6 G/DL (3.4-5.0) L Globulin 4.6 g/dL Albumin/Globulin Ratio 0.6 (1.0-2.7) L Arterial Blood pH 7.472 (7.350-7.450) Arterial Blood Partial Pressure CO2 38.5 mmHg (35.0-45.0) Arterial Blood Partial Pressure O2 121.0 mmHg (75.0-100.0) H Arterial Blood HCO3 27.5 mmol/L (22.0-26.0) H Arterial Blood Oxygen Saturation 98.2 % (92.0-98.0) H Arterial Blood Base Excess 3.7 Anthony Test Positive Current Medications Medications (Trade) Dose Ordered Sig/Karen Route PRN Reason Start Time Stop Time Status Last Admin Dose Admin Carbamazepine (TEGretol) 200 mg FOUR TIMES A DAY ORAL 07/02/17 09:00 07/23/17 12:59 07/09/17 13:00 Dextrose (Dextrose 50%) STAT PRN IV Hypoglycemia 07/02/17 12:00 07/25/17 11:59 Docusate Sodium (Colace) 100 mg DAILY ORAL 07/02/17 09:00 07/29/17 08:59 07/09/17 09:00 Dopamine HCl/ Dextrose 250 ml @ 0 mls/hr Q24H IV 07/03/17 15:00 08/02/17 14:59 07/03/17 15:15 Heparin Sodium (Porcine) (Heparin 5000 units/ml) 5,000 units EVERY 12 HOURS SUBQ 07/02/17 09:00 07/23/17 20:59 07/09/17 09:00 Levetiracetam (Keppra) 500 mg Q12HR ORAL 07/02/17 09:00 07/23/17 20:59 07/09/17 09:00 Lorazepam (Ativan 2mg/ml 1ml) 2 mg Q4H PRN IV For Anxiety 07/08/17 10:15 07/15/17 10:14 Methylprednisolone Sodium Succinate (Solu-MEDROL) 60 mg DAILY IV 07/02/17 09:00 07/23/17 17:59 07/09/17 09:00 Morphine Sulfate (Morphine Sulfate) 2 mg Q4H PRN IVP Moderate Pain (Pain Scale 4-6) 07/04/17 16:15 07/11/17 16:14 Morphine Sulfate (Morphine Sulfate) 4 mg Q4H PRN IVP Severe Pain (Pain Scale 7-10) 07/08/17 18:00 07/15/17 13:59 Nitroglycerin (Ntg) 0.4 mg Q5M X 3 DOSES PRN SL Prn Chest Pain 07/01/17 23:45 07/23/17 13:29 Olanzapine (ZyPREXA) 20 mg BEDTIME ORAL 07/02/17 21:00 07/24/17 08:59 07/08/17 20:59 Ondansetron HCl (Zofran) 4 mg Q6H PRN IVP Nausea & Vomiting 07/02/17 00:00 07/23/17 11:59 Pantoprazole (Protonix) 40 mg DAILY IV 07/02/17 09:00 08/01/17 08:59 07/09/17 09:00 Theophylline (Dane-Dur) 100 mg EVERY 12 HOURS ORAL 07/02/17 09:00 07/23/17 20:59 07/09/17 09:00 SHEKHAR MERAZ Jul 09, 2017 17:28
--- NOTE | 2017-07-09 22:25 | Cardiology Progress Note ---
Assessment/Plan Assessment/Plan 1. Acute respiratory failure, re-intubated. 2. Sinus tachycardia, due to hypoxia/sepsis/leukocytosis. 3. Hypotension, due to sepsis,? sedatives, ?hypovolemia, ? keppra, keep hydrated , normal LV systolic function with LVEF at 60-65%. 4. Dual chamber pacemaker implantation, currently intrinsic atrial and ventricular activity. Subjective Subjective Intubated Sinus tachycardia at 102. Objective Last 24 Hour Vital Signs Date Time Temp Pulse Resp B/P (MAP) Pulse Ox O2 Delivery O2 Flow Rate FiO2 07/09/17 21:15 79 16 30 07/09/17 19:16 72 16 30 07/09/17 18:00 16 104/63 100 Mechanical Ventilator 15.0 40 07/09/17 17:37 96.9 75 16 104/63 100 Mechanical Ventilator 15.0 40 07/09/17 17:08 75 16 40 07/09/17 17:00 104/63 07/09/17 16:00 88 07/09/17 16:00 96.9 18 100 Mechanical Ventilator 40 07/09/17 16:00 40 07/09/17 15:04 101 16 40 07/09/17 15:00 109/62 07/09/17 15:00 18 100 Mechanical Ventilator 40 07/09/17 14:00 18 100 Mechanical Ventilator 40 07/09/17 13:02 102 16 40 07/09/17 13:00 18 100 Mechanical Ventilator 40 07/09/17 12:30 104/57 07/09/17 12:00 98.7 75 18 100 Mechanical Ventilator 40 07/09/17 12:00 40 07/09/17 12:00 87 07/09/17 11:30 101/68 07/09/17 11:00 80 20 100 Mechanical Ventilator 40 07/09/17 10:53 88 16 40 07/09/17 10:30 102/62 07/09/17 10:00 77 19 100 Mechanical Ventilator 40 07/09/17 09:30 100/58 07/09/17 09:00 40 07/09/17 09:00 103 16 40 07/09/17 09:00 82 20 100 Mechanical Ventilator 40 07/09/17 08:00 98.6 77 18 100 Mechanical Ventilator 40 07/09/17 08:00 88 07/09/17 07:13 109 16 40 07/09/17 07:00 98 18 100 Mechanical Ventilator 40 07/09/17 06:00 100 16 104/64 100 Mechanical Ventilator 40 07/09/17 05:17 81 16 40 07/09/17 05:00 83 16 109/65 100 Mechanical Ventilator 40 07/09/17 04:00 86 07/09/17 04:00 98.8 86 16 122/72 100 Mechanical Ventilator 40 07/09/17 04:00 40 07/09/17 03:20 80 16 40 07/09/17 03:00 95 16 110/61 100 Mechanical Ventilator 40 07/09/17 02:00 92 16 114/61 100 Mechanical Ventilator 40 07/09/17 01:00 82 16 40 07/09/17 01:00 82 16 106/66 100 Mechanical Ventilator 40 07/09/17 00:00 99.2 80 16 115/71 100 Mechanical Ventilator 40 07/09/17 00:00 80 07/08/17 23:00 82 16 114/74 100 Mechanical Ventilator 40 07/08/17 22:47 90 16 50 Intake and Output 07/09/17 07/10/17 19:00 07:00 Intake Total 650 ml Output Total 300 ml Balance 350 ml Tube Feeding 650 ml Output Urine Total 300 ml 2D Echo: LVEF 60-65%, mild TR with RVSP at 33 mmHg Laboratory Tests Test 07/09/17 04:40 07/09/17 09:10 White Blood Count 13.8 K/UL (4.8-10.8) H Red Blood Count 3.30 M/UL (4.70-6.10) L Hemoglobin 11.4 G/DL (14.2-18.0) L Hematocrit 33.3 % (42.0-52.0) L Mean Corpuscular Volume 101 FL (80-99) H Mean Corpuscular Hemoglobin 34.5 PG (27.0-31.0) H Mean Corpuscular Hemoglobin Concent 34.1 G/DL (32.0-36.0) Red Cell Distribution Width 13.2 % (11.6-14.8) Platelet Count 320 K/UL (150-450) Mean Platelet Volume 6.2 FL (6.5-10.1) L Neutrophils (%) (Auto) 70.2 % (45.0-75.0) Lymphocytes (%) (Auto) 19.6 % (20.0-45.0) L Monocytes (%) (Auto) 7.5 % (1.0-10.0) Eosinophils (%) (Auto) 1.9 % (0.0-3.0) Basophils (%) (Auto) 0.9 % (0.0-2.0) Sodium Level 139 MMOL/L (136-145) Potassium Level 3.4 MMOL/L (3.5-5.1) L Chloride Level 103 MMOL/L (98-107) Carbon Dioxide Level 27 MMOL/L (21-32) Anion Gap 9 mmol/L (5-15) Blood Urea Nitrogen 21 mg/dL (7-18) H Creatinine 1.0 MG/DL (0.55-1.30) Estimat Glomerular Filtration Rate > 60 mL/min (>60) Glucose Level 127 MG/DL (74-106) H Calcium Level 9.3 MG/DL (8.5-10.1) Phosphorus Level 3.8 MG/DL (2.5-4.9) Magnesium Level 2.1 MG/DL (1.8-2.4) Total Bilirubin 0.3 MG/DL (0.2-1.0) Aspartate Amino Transf (AST/SGOT) 12 U/L (15-37) L Alanine Aminotransferase (ALT/SGPT) 10 U/L (12-78) L Alkaline Phosphatase 71 U/L (46-116) Total Protein 7.2 G/DL (6.4-8.2) Albumin 2.6 G/DL (3.4-5.0) L Globulin 4.6 g/dL Albumin/Globulin Ratio 0.6 (1.0-2.7) L Arterial Blood pH 7.472 (7.350-7.450) Arterial Blood Partial Pressure CO2 38.5 mmHg (35.0-45.0) Arterial Blood Partial Pressure O2 121.0 mmHg (75.0-100.0) H Arterial Blood HCO3 27.5 mmol/L (22.0-26.0) H Arterial Blood Oxygen Saturation 98.2 % (92.0-98.0) H Arterial Blood Base Excess 3.7 Anthony Test Positive Objective HEENT: Atraumatic and normocephalic. ENT, pupils are equal, round, and reactive to light and accommodation. Pale conjunctiva, intubated. NECK: JVP cannot be assessed. No carotid bruit. Carotid upstrokes 2+ bilaterally. LUNGS: Diminished BS both bases. CVS: Normal S1, S2. no murmurs, gallops or rubs. PMI is at fourth intercostal space in the midclavicular line. ABDOMEN: Soft, nontender, and nondistended. No hepatosplenomegaly. Positive bowel sounds. EXTREMITIES: No evidence of edema, clubbing, or cyanosis. CALLUM BARON Jul 09, 2017 22:25
[2017-07-10] VITALS (24 sets, daily range): BP systolic 81–112; BP diastolic 43–68
[2017-07-10 05:11] LABS: BASOPHILS % (AUTO) 0.9 % (0.0-2.0); EOSINOPHILS % (AUTO) 1.4 % (0.0-3.0); HEMATOCRIT 29.6 % (42.0-52.0); LYMPHOCYTES % (AUTO) 19.9 % (20.0-45.0); MEAN CORPUSCULAR VOLUME 101 FL (80-99); MONOCYTES % (AUTO) 8.1 % (1.0-10.0); NEUTROPHILS % (AUTO) 69.7 % (45.0-75.0); PLATELET COUNT 266 K/UL (150-450); RED BLOOD COUNT 2.95 M/UL (4.70-6.10); RED CELL DISTRIBUTION WIDTH 12.8 % (11.6-14.8); WHITE BLOOD COUNT 14.1 K/UL (4.8-10.8)
[2017-07-10 05:59] LABS: ALANINE AMINOTRANSFERASE 12 U/L (12-78); ALBUMIN 2.4 G/DL (3.4-5.0); ALBUMIN/GLOBULIN RATIO 0.5 (1.0-2.7); ALKALINE PHOSPHATASE 65 U/L (46-116); ANION GAP 11 mmol/L (5-15); ASPARTATE AMINO TRANSFERASE 10 U/L (15-37); BILIRUBIN,TOTAL 0.3 MG/DL (0.2-1.0); BLOOD UREA NITROGEN 21 mg/dL (7-18); CARBON DIOXIDE 25 MMOL/L (21-32); CHLORIDE 103 MMOL/L (98-107); CREATININE 0.9 MG/DL (0.55-1.30); PHOSPHORUS 3.5 MG/DL (2.5-4.9); POTASSIUM 3.3 MMOL/L (3.5-5.1); SODIUM 139 MMOL/L (136-145)
[2017-07-10 06:03] LABS: CALCIUM 9.2 MG/DL (8.5-10.1)
--- NOTE | 2017-07-10 08:03 | General Progress Note ---
Assessment/Plan Problem List: (1) Respiratory failure ICD Codes: J96.90 - Respiratory failure, unspecified, unspecified whether with hypoxia or hypercapnia SNOMED: 363357827 (2) Sepsis ICD Codes: A41.9 - Sepsis, unspecified organism SNOMED: 19860409 (3) UTI (urinary tract infection) ICD Codes: N39.0 - Urinary tract infection, site not specified SNOMED: 35518394 (4) Schizophrenia ICD Codes: F20.9 - Schizophrenia, unspecified SNOMED: 17823791 (5) History of pacemaker ICD Codes: Z95.0 - Presence of cardiac pacemaker SNOMED: 963969430 (6) Limited mobility ICD Codes: Z74.09 - Other reduced mobility SNOMED: 5668154 Status: stable, progressing Assessment/Plan o2 pul tx ot pt diet abx cbc bmp am ltach transfer Subjective Constitutional: Reports: weakness Allergies: Coded Allergies: CHLORPROMAZINE (Verified Allergy, Unknown, 06/23/17) ERYTHROMYCIN BASE (Verified Allergy, Unknown, 06/23/17) Uncoded Allergies: TAPE (Allergy, Unknown, 06/23/17) All Systems: reviewed and negative except above Subjective intubated sedated in icu Objective Last 24 Hour Vital Signs Date Time Temp Pulse Resp B/P (MAP) Pulse Ox O2 Delivery O2 Flow Rate FiO2 07/10/17 07:25 101 16 30 07/10/17 06:00 90 16 88/59 99 Mechanical Ventilator 30 07/10/17 05:00 84 16 93/54 99 Mechanical Ventilator 30 07/10/17 04:31 92 16 30 07/10/17 04:00 30 07/10/17 04:00 98.6 84 16 93/54 99 Mechanical Ventilator 30 07/10/17 04:00 88 07/10/17 03:25 87 16 30 07/10/17 03:00 84 16 95/52 99 Mechanical Ventilator 30 07/10/17 02:00 96 16 112/68 99 Mechanical Ventilator 30 07/10/17 01:25 82 16 30 07/10/17 01:00 81 16 92/56 99 Mechanical Ventilator 30 07/10/17 00:00 98.4 79 16 96/56 99 Mechanical Ventilator 30 07/09/17 23:17 78 16 30 07/09/17 23:00 82 16 110/58 100 Mechanical Ventilator 30 07/09/17 22:00 85 16 114/64 100 Mechanical Ventilator 40 07/09/17 21:15 79 16 30 07/09/17 21:00 82 16 99/63 100 Mechanical Ventilator 40 07/09/17 20:00 98.0 85 16 114/64 100 Mechanical Ventilator 40 07/09/17 20:00 85 07/09/17 20:00 40 07/09/17 19:16 72 16 30 07/09/17 18:00 16 104/63 100 Mechanical Ventilator 15.0 40 07/09/17 17:37 96.9 75 16 104/63 100 Mechanical Ventilator 15.0 40 07/09/17 17:08 75 16 40 07/09/17 17:00 104/63 07/09/17 16:00 88 07/09/17 16:00 96.9 18 100 Mechanical Ventilator 40 07/09/17 16:00 40 07/09/17 15:04 101 16 40 07/09/17 15:00 109/62 07/09/17 15:00 18 100 Mechanical Ventilator 40 07/09/17 14:00 18 100 Mechanical Ventilator 40 07/09/17 13:02 102 16 40 07/09/17 13:00 18 100 Mechanical Ventilator 40 07/09/17 12:30 104/57 07/09/17 12:00 98.7 75 18 100 Mechanical Ventilator 40 07/09/17 12:00 40 07/09/17 12:00 87 07/09/17 11:30 101/68 07/09/17 11:00 80 20 100 Mechanical Ventilator 40 07/09/17 10:53 88 16 40 07/09/17 10:30 102/62 07/09/17 10:00 77 19 100 Mechanical Ventilator 40 07/09/17 09:30 100/58 07/09/17 09:00 40 07/09/17 09:00 103 16 40 07/09/17 09:00 82 20 100 Mechanical Ventilator 40 Laboratory Tests 07/09/17 09:10: Arterial Blood pH 7.472H, Arterial Blood Partial Pressure CO2 38.5, Arterial Blood Partial Pressure O2 121.0H, Arterial Blood HCO3 27.5H, Arterial Blood Oxygen Saturation 98.2H, Arterial Blood Base Excess 3.7, Anthony Test Positive 07/10/17 05:00: White Blood Count 14.1H, Red Blood Count 2.95L, Hemoglobin 10.0L, Hematocrit 29.6L, Mean Corpuscular Volume 101H, Mean Corpuscular Hemoglobin 33.9H, Mean Corpuscular Hemoglobin Concent 33.7, Red Cell Distribution Width 12.8, Platelet Count 266, Mean Platelet Volume 6.2L, Neutrophils (%) (Auto) 69.7, Lymphocytes ( %) (Auto) 19.9L, Monocytes (%) (Auto) 8.1, Eosinophils (%) (Auto) 1.4, Basophils (%) (Auto) 0.9, Sodium Level 139, Potassium Level 3.3L, Chloride Level 103, Carbon Dioxide Level 25, Anion Gap 11, Blood Urea Nitrogen 21H, Creatinine 0.9, Estimat Glomerular Filtration Rate > 60, Glucose Level 129H, Calcium Level 9.2, Phosphorus Level 3.5, Magnesium Level 2.2, Total Bilirubin 0.3, Aspartate Amino Transf (AST/SGOT) 10L, Alanine Aminotransferase (ALT/SGPT) 12, Alkaline Phosphatase 65, Total Protein 6.8, Albumin 2.4L, Globulin 4.4, Albumin/Globulin Ratio 0.5L Height (Feet): 5 Height (Inches): 11.00 Weight (Pounds): 122 General Appearance: lethargic EENT: normal ENT inspection Neck: normal alignment Cardiovascular: normal peripheral pulses, normal rate, regular rhythm Respiratory/Chest: chest wall non-tender, lungs clear, normal breath sounds Abdomen: normal bowel sounds, non tender, soft Extremities: normal inspection Edema: no edema noted Arm (L), no edema noted Arm (R), no edema noted Leg (L), no edema noted Leg (R), no edema noted Pedal (L), no edema noted Pedal (R), no edema noted Generalized Neurologic: motor weakness Skin: normal pigmentation, warm/dry QUINTON HUMPHRIES Jul 10, 2017 08:03
--- NOTE | 2017-07-10 08:03 | General Progress Note ---
Assessment/Plan Problem List: (1) Respiratory failure ICD Codes: J96.90 - Respiratory failure, unspecified, unspecified whether with hypoxia or hypercapnia SNOMED: 558837876 (2) Sepsis ICD Codes: A41.9 - Sepsis, unspecified organism SNOMED: 78513094 (3) UTI (urinary tract infection) ICD Codes: N39.0 - Urinary tract infection, site not specified SNOMED: 59829701 (4) Schizophrenia ICD Codes: F20.9 - Schizophrenia, unspecified SNOMED: 85723713 (5) History of pacemaker ICD Codes: Z95.0 - Presence of cardiac pacemaker SNOMED: 862982074 (6) Limited mobility ICD Codes: Z74.09 - Other reduced mobility SNOMED: 6708928 Status: stable, progressing Assessment/Plan o2 pul tx ot pt diet abx cbc bmp am ltach transfer Subjective Constitutional: Reports: weakness Allergies: Coded Allergies: CHLORPROMAZINE (Verified Allergy, Unknown, 06/23/17) ERYTHROMYCIN BASE (Verified Allergy, Unknown, 06/23/17) Uncoded Allergies: TAPE (Allergy, Unknown, 06/23/17) All Systems: reviewed and negative except above Subjective intubated sedated in icu Objective Last 24 Hour Vital Signs Date Time Temp Pulse Resp B/P (MAP) Pulse Ox O2 Delivery O2 Flow Rate FiO2 07/10/17 07:25 101 16 30 07/10/17 06:00 90 16 88/59 99 Mechanical Ventilator 30 07/10/17 05:00 84 16 93/54 99 Mechanical Ventilator 30 07/10/17 04:31 92 16 30 07/10/17 04:00 30 07/10/17 04:00 98.6 84 16 93/54 99 Mechanical Ventilator 30 07/10/17 04:00 88 07/10/17 03:25 87 16 30 07/10/17 03:00 84 16 95/52 99 Mechanical Ventilator 30 07/10/17 02:00 96 16 112/68 99 Mechanical Ventilator 30 07/10/17 01:25 82 16 30 07/10/17 01:00 81 16 92/56 99 Mechanical Ventilator 30 07/10/17 00:00 98.4 79 16 96/56 99 Mechanical Ventilator 30 07/09/17 23:17 78 16 30 07/09/17 23:00 82 16 110/58 100 Mechanical Ventilator 30 07/09/17 22:00 85 16 114/64 100 Mechanical Ventilator 40 07/09/17 21:15 79 16 30 07/09/17 21:00 82 16 99/63 100 Mechanical Ventilator 40 07/09/17 20:00 98.0 85 16 114/64 100 Mechanical Ventilator 40 07/09/17 20:00 85 07/09/17 20:00 40 07/09/17 19:16 72 16 30 07/09/17 18:00 16 104/63 100 Mechanical Ventilator 15.0 40 07/09/17 17:37 96.9 75 16 104/63 100 Mechanical Ventilator 15.0 40 07/09/17 17:08 75 16 40 07/09/17 17:00 104/63 07/09/17 16:00 88 07/09/17 16:00 96.9 18 100 Mechanical Ventilator 40 07/09/17 16:00 40 07/09/17 15:04 101 16 40 07/09/17 15:00 109/62 07/09/17 15:00 18 100 Mechanical Ventilator 40 07/09/17 14:00 18 100 Mechanical Ventilator 40 07/09/17 13:02 102 16 40 07/09/17 13:00 18 100 Mechanical Ventilator 40 07/09/17 12:30 104/57 07/09/17 12:00 98.7 75 18 100 Mechanical Ventilator 40 07/09/17 12:00 40 07/09/17 12:00 87 07/09/17 11:30 101/68 07/09/17 11:00 80 20 100 Mechanical Ventilator 40 07/09/17 10:53 88 16 40 07/09/17 10:30 102/62 07/09/17 10:00 77 19 100 Mechanical Ventilator 40 07/09/17 09:30 100/58 07/09/17 09:00 40 07/09/17 09:00 103 16 40 07/09/17 09:00 82 20 100 Mechanical Ventilator 40 Laboratory Tests 07/09/17 09:10: Arterial Blood pH 7.472H, Arterial Blood Partial Pressure CO2 38.5, Arterial Blood Partial Pressure O2 121.0H, Arterial Blood HCO3 27.5H, Arterial Blood Oxygen Saturation 98.2H, Arterial Blood Base Excess 3.7, Anthony Test Positive 07/10/17 05:00: White Blood Count 14.1H, Red Blood Count 2.95L, Hemoglobin 10.0L, Hematocrit 29.6L, Mean Corpuscular Volume 101H, Mean Corpuscular Hemoglobin 33.9H, Mean Corpuscular Hemoglobin Concent 33.7, Red Cell Distribution Width 12.8, Platelet Count 266, Mean Platelet Volume 6.2L, Neutrophils (%) (Auto) 69.7, Lymphocytes ( %) (Auto) 19.9L, Monocytes (%) (Auto) 8.1, Eosinophils (%) (Auto) 1.4, Basophils (%) (Auto) 0.9, Sodium Level 139, Potassium Level 3.3L, Chloride Level 103, Carbon Dioxide Level 25, Anion Gap 11, Blood Urea Nitrogen 21H, Creatinine 0.9, Estimat Glomerular Filtration Rate > 60, Glucose Level 129H, Calcium Level 9.2, Phosphorus Level 3.5, Magnesium Level 2.2, Total Bilirubin 0.3, Aspartate Amino Transf (AST/SGOT) 10L, Alanine Aminotransferase (ALT/SGPT) 12, Alkaline Phosphatase 65, Total Protein 6.8, Albumin 2.4L, Globulin 4.4, Albumin/Globulin Ratio 0.5L Height (Feet): 5 Height (Inches): 11.00 Weight (Pounds): 122 General Appearance: lethargic EENT: normal ENT inspection Neck: normal alignment Cardiovascular: normal peripheral pulses, normal rate, regular rhythm Respiratory/Chest: chest wall non-tender, lungs clear, normal breath sounds Abdomen: normal bowel sounds, non tender, soft Extremities: normal inspection Edema: no edema noted Arm (L), no edema noted Arm (R), no edema noted Leg (L), no edema noted Leg (R), no edema noted Pedal (L), no edema noted Pedal (R), no edema noted Generalized Neurologic: motor weakness Skin: normal pigmentation, warm/dry QUINTON HUMPHRIES Jul 10, 2017 08:03
--- NOTE | 2017-07-10 08:03 | General Progress Note ---
Assessment/Plan Problem List: (1) Respiratory failure ICD Codes: J96.90 - Respiratory failure, unspecified, unspecified whether with hypoxia or hypercapnia SNOMED: 078372414 (2) Sepsis ICD Codes: A41.9 - Sepsis, unspecified organism SNOMED: 87171023 (3) UTI (urinary tract infection) ICD Codes: N39.0 - Urinary tract infection, site not specified SNOMED: 28601337 (4) Schizophrenia ICD Codes: F20.9 - Schizophrenia, unspecified SNOMED: 94109781 (5) History of pacemaker ICD Codes: Z95.0 - Presence of cardiac pacemaker SNOMED: 787955906 (6) Limited mobility ICD Codes: Z74.09 - Other reduced mobility SNOMED: 2600660 Status: stable, progressing Assessment/Plan o2 pul tx ot pt diet abx cbc bmp am ltach transfer Subjective Constitutional: Reports: weakness Allergies: Coded Allergies: CHLORPROMAZINE (Verified Allergy, Unknown, 06/23/17) ERYTHROMYCIN BASE (Verified Allergy, Unknown, 06/23/17) Uncoded Allergies: TAPE (Allergy, Unknown, 06/23/17) All Systems: reviewed and negative except above Subjective intubated sedated in icu Objective Last 24 Hour Vital Signs Date Time Temp Pulse Resp B/P (MAP) Pulse Ox O2 Delivery O2 Flow Rate FiO2 07/10/17 07:25 101 16 30 07/10/17 06:00 90 16 88/59 99 Mechanical Ventilator 30 07/10/17 05:00 84 16 93/54 99 Mechanical Ventilator 30 07/10/17 04:31 92 16 30 07/10/17 04:00 30 07/10/17 04:00 98.6 84 16 93/54 99 Mechanical Ventilator 30 07/10/17 04:00 88 07/10/17 03:25 87 16 30 07/10/17 03:00 84 16 95/52 99 Mechanical Ventilator 30 07/10/17 02:00 96 16 112/68 99 Mechanical Ventilator 30 07/10/17 01:25 82 16 30 07/10/17 01:00 81 16 92/56 99 Mechanical Ventilator 30 07/10/17 00:00 98.4 79 16 96/56 99 Mechanical Ventilator 30 07/09/17 23:17 78 16 30 07/09/17 23:00 82 16 110/58 100 Mechanical Ventilator 30 07/09/17 22:00 85 16 114/64 100 Mechanical Ventilator 40 07/09/17 21:15 79 16 30 07/09/17 21:00 82 16 99/63 100 Mechanical Ventilator 40 07/09/17 20:00 98.0 85 16 114/64 100 Mechanical Ventilator 40 07/09/17 20:00 85 07/09/17 20:00 40 07/09/17 19:16 72 16 30 07/09/17 18:00 16 104/63 100 Mechanical Ventilator 15.0 40 07/09/17 17:37 96.9 75 16 104/63 100 Mechanical Ventilator 15.0 40 07/09/17 17:08 75 16 40 07/09/17 17:00 104/63 07/09/17 16:00 88 07/09/17 16:00 96.9 18 100 Mechanical Ventilator 40 07/09/17 16:00 40 07/09/17 15:04 101 16 40 07/09/17 15:00 109/62 07/09/17 15:00 18 100 Mechanical Ventilator 40 07/09/17 14:00 18 100 Mechanical Ventilator 40 07/09/17 13:02 102 16 40 07/09/17 13:00 18 100 Mechanical Ventilator 40 07/09/17 12:30 104/57 07/09/17 12:00 98.7 75 18 100 Mechanical Ventilator 40 07/09/17 12:00 40 07/09/17 12:00 87 07/09/17 11:30 101/68 07/09/17 11:00 80 20 100 Mechanical Ventilator 40 07/09/17 10:53 88 16 40 07/09/17 10:30 102/62 07/09/17 10:00 77 19 100 Mechanical Ventilator 40 07/09/17 09:30 100/58 07/09/17 09:00 40 07/09/17 09:00 103 16 40 07/09/17 09:00 82 20 100 Mechanical Ventilator 40 Laboratory Tests 07/09/17 09:10: Arterial Blood pH 7.472H, Arterial Blood Partial Pressure CO2 38.5, Arterial Blood Partial Pressure O2 121.0H, Arterial Blood HCO3 27.5H, Arterial Blood Oxygen Saturation 98.2H, Arterial Blood Base Excess 3.7, Anthony Test Positive 07/10/17 05:00: White Blood Count 14.1H, Red Blood Count 2.95L, Hemoglobin 10.0L, Hematocrit 29.6L, Mean Corpuscular Volume 101H, Mean Corpuscular Hemoglobin 33.9H, Mean Corpuscular Hemoglobin Concent 33.7, Red Cell Distribution Width 12.8, Platelet Count 266, Mean Platelet Volume 6.2L, Neutrophils (%) (Auto) 69.7, Lymphocytes ( %) (Auto) 19.9L, Monocytes (%) (Auto) 8.1, Eosinophils (%) (Auto) 1.4, Basophils (%) (Auto) 0.9, Sodium Level 139, Potassium Level 3.3L, Chloride Level 103, Carbon Dioxide Level 25, Anion Gap 11, Blood Urea Nitrogen 21H, Creatinine 0.9, Estimat Glomerular Filtration Rate > 60, Glucose Level 129H, Calcium Level 9.2, Phosphorus Level 3.5, Magnesium Level 2.2, Total Bilirubin 0.3, Aspartate Amino Transf (AST/SGOT) 10L, Alanine Aminotransferase (ALT/SGPT) 12, Alkaline Phosphatase 65, Total Protein 6.8, Albumin 2.4L, Globulin 4.4, Albumin/Globulin Ratio 0.5L Height (Feet): 5 Height (Inches): 11.00 Weight (Pounds): 122 General Appearance: lethargic EENT: normal ENT inspection Neck: normal alignment Cardiovascular: normal peripheral pulses, normal rate, regular rhythm Respiratory/Chest: chest wall non-tender, lungs clear, normal breath sounds Abdomen: normal bowel sounds, non tender, soft Extremities: normal inspection Edema: no edema noted Arm (L), no edema noted Arm (R), no edema noted Leg (L), no edema noted Leg (R), no edema noted Pedal (L), no edema noted Pedal (R), no edema noted Generalized Neurologic: motor weakness Skin: normal pigmentation, warm/dry QUINTON HUMPHRIES Jul 10, 2017 08:03
--- NOTE | 2017-07-10 08:31 | Nephrology Progress Note ---
Assessment/Plan Assessment 1. hypokalemia 2. respiratory failure 3. Hypertension. 4. History of chronic obstructive pulmonary disease. Plan plan to d/c IVF continue iv antibiotic monitoring renal function monitoring electrolyte replace as need avoid any NSAID Subjective Subjective reintubated no changes in MS Objective Objective Last 24 Hour Vital Signs Date Time Temp Pulse Resp B/P (MAP) Pulse Ox O2 Delivery O2 Flow Rate FiO2 07/10/17 07:25 101 16 30 07/10/17 06:00 90 16 88/59 99 Mechanical Ventilator 30 07/10/17 05:00 84 16 93/54 99 Mechanical Ventilator 30 07/10/17 04:31 92 16 30 07/10/17 04:00 30 07/10/17 04:00 98.6 84 16 93/54 99 Mechanical Ventilator 30 07/10/17 04:00 88 07/10/17 03:25 87 16 30 07/10/17 03:00 84 16 95/52 99 Mechanical Ventilator 30 07/10/17 02:00 96 16 112/68 99 Mechanical Ventilator 30 07/10/17 01:25 82 16 30 07/10/17 01:00 81 16 92/56 99 Mechanical Ventilator 30 07/10/17 00:00 98.4 79 16 96/56 99 Mechanical Ventilator 30 07/09/17 23:17 78 16 30 07/09/17 23:00 82 16 110/58 100 Mechanical Ventilator 30 07/09/17 22:00 85 16 114/64 100 Mechanical Ventilator 40 07/09/17 21:15 79 16 30 07/09/17 21:00 82 16 99/63 100 Mechanical Ventilator 40 07/09/17 20:00 98.0 85 16 114/64 100 Mechanical Ventilator 40 07/09/17 20:00 85 07/09/17 20:00 40 07/09/17 19:16 72 16 30 07/09/17 18:00 16 104/63 100 Mechanical Ventilator 15.0 40 07/09/17 17:37 96.9 75 16 104/63 100 Mechanical Ventilator 15.0 40 07/09/17 17:08 75 16 40 07/09/17 17:00 104/63 07/09/17 16:00 88 07/09/17 16:00 96.9 18 100 Mechanical Ventilator 40 07/09/17 16:00 40 07/09/17 15:04 101 16 40 07/09/17 15:00 109/62 07/09/17 15:00 18 100 Mechanical Ventilator 40 07/09/17 14:00 18 100 Mechanical Ventilator 40 07/09/17 13:02 102 16 40 07/09/17 13:00 18 100 Mechanical Ventilator 40 07/09/17 12:30 104/57 07/09/17 12:00 98.7 75 18 100 Mechanical Ventilator 40 07/09/17 12:00 40 07/09/17 12:00 87 07/09/17 11:30 101/68 07/09/17 11:00 80 20 100 Mechanical Ventilator 40 07/09/17 10:53 88 16 40 07/09/17 10:30 102/62 07/09/17 10:00 77 19 100 Mechanical Ventilator 40 07/09/17 09:30 100/58 07/09/17 09:00 40 07/09/17 09:00 103 16 40 07/09/17 09:00 82 20 100 Mechanical Ventilator 40 Laboratory Tests 07/09/17 09:10: Arterial Blood pH 7.472H, Arterial Blood Partial Pressure CO2 38.5, Arterial Blood Partial Pressure O2 121.0H, Arterial Blood HCO3 27.5H, Arterial Blood Oxygen Saturation 98.2H, Arterial Blood Base Excess 3.7, Anthony Test Positive 07/10/17 05:00: White Blood Count 14.1H, Red Blood Count 2.95L, Hemoglobin 10.0L, Hematocrit 29.6L, Mean Corpuscular Volume 101H, Mean Corpuscular Hemoglobin 33.9H, Mean Corpuscular Hemoglobin Concent 33.7, Red Cell Distribution Width 12.8, Platelet Count 266, Mean Platelet Volume 6.2L, Neutrophils (%) (Auto) 69.7, Lymphocytes ( %) (Auto) 19.9L, Monocytes (%) (Auto) 8.1, Eosinophils (%) (Auto) 1.4, Basophils (%) (Auto) 0.9, Sodium Level 139, Potassium Level 3.3L, Chloride Level 103, Carbon Dioxide Level 25, Anion Gap 11, Blood Urea Nitrogen 21H, Creatinine 0.9, Estimat Glomerular Filtration Rate > 60, Glucose Level 129H, Calcium Level 9.2, Phosphorus Level 3.5, Magnesium Level 2.2, Total Bilirubin 0.3, Aspartate Amino Transf (AST/SGOT) 10L, Alanine Aminotransferase (ALT/SGPT) 12, Alkaline Phosphatase 65, Total Protein 6.8, Albumin 2.4L, Globulin 4.4, Albumin/Globulin Ratio 0.5L 07/10/17 07:50: Arterial Blood pH 7.434, Arterial Blood Partial Pressure CO2 40.7, Arterial Blood Partial Pressure O2 127.1H, Arterial Blood HCO3 26.7H, Arterial Blood Oxygen Saturation 98.2H, Arterial Blood Base Excess 2.2, Anthony Test Positive Height (Feet): 5 Height (Inches): 11.00 Weight (Pounds): 122 Objective HEAD AND NECK: No JVP. No LAD. No thyromegaly. Extraocular movements intact. Pupils are reactive to light and accommodation. LUNGS: Clear to auscultation. CARDIAC: Regular rate and rhythm. S1 and S2. No murmur. No rub. ABDOMEN: Soft, nontender, and nondistended. EXTREMITIES: No edema. No clubbing. No cyanosis. NEUROLOGIC: The patient opened up his eyes, not following verbal commands. RANCHO SYKES Jul 10, 2017 08:31
[2017-07-10] MEDS: Pantoprazole Inj IV SCH (09:00)
[2017-07-10] MEDS: carBAMazepine 200mg tab ORAL SCH ×4 (09:00→21:10)
[2017-07-10] MEDS: Solu-MEDROL 125mg Inj IV SCH (09:00)
[2017-07-10] MEDS: Theophylline ER 100mg ORAL SCH ×2 (09:00→21:09)
[2017-07-10] MEDS: Docusate 100mg cap ORAL SCH (09:00)
[2017-07-10] MEDS: Heparin 5000 units/ml inj SUBQ SCH ×2 (09:01→21:10)
--- NOTE | 2017-07-10 11:13 | Pulmonolgy Critical Care Note ---
Critical Care - Asmt/Plan Problems: (1) Acute encephalopathy (2) Acute respiratory failure (3) Collapse of left lung (4) UTI (urinary tract infection) (5) Schizophrenia (6) History of pacemaker (7) Fever Respiratory: monitor respiratory rate, adjust FIO2, CXR Cardiac: continue to monitor HR/BP Renal: F/U I&O, keep IV fluid Infectious Disease: check cultures Gastrointestinal: continue feedings/current rate, hold feedings Endocrine: monitor blood sugar, continue sliding scale insulin Hematologic: monitor H/H, transfuse if hgb<8.5 Neurologic: PRN Ativan, keep patient comfortable Affect: PRN ativan Notes Reviewed: manager environmental services, cardio, 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 with: nurses, consultants, director case managementretail district manager - Objective Last 24 Hour Vital Signs Date Time Temp Pulse Resp B/P (MAP) Pulse Ox O2 Delivery O2 Flow Rate FiO2 07/10/17 10:00 84 16 99/59 100 Mechanical Ventilator 30 07/10/17 09:25 98 16 30 07/10/17 09:00 87 16 84/46 100 Mechanical Ventilator 30 07/10/17 08:00 98.2 95 17 99/68 100 Mechanical Ventilator 30 07/10/17 08:00 30 07/10/17 07:54 97 07/10/17 07:25 101 16 30 07/10/17 07:00 102 16 88/59 100 Mechanical Ventilator 30 07/10/17 06:00 90 16 88/59 99 Mechanical Ventilator 30 07/10/17 05:00 84 16 93/54 99 Mechanical Ventilator 30 07/10/17 04:31 92 16 30 07/10/17 04:00 30 07/10/17 04:00 98.6 84 16 93/54 99 Mechanical Ventilator 30 07/10/17 04:00 88 07/10/17 03:25 87 16 30 07/10/17 03:00 84 16 95/52 99 Mechanical Ventilator 30 07/10/17 02:00 96 16 112/68 99 Mechanical Ventilator 30 07/10/17 01:25 82 16 30 07/10/17 01:00 81 16 92/56 99 Mechanical Ventilator 30 07/10/17 00:00 98.4 79 16 96/56 99 Mechanical Ventilator 30 07/09/17 23:17 78 16 30 07/09/17 23:00 82 16 110/58 100 Mechanical Ventilator 30 07/09/17 22:00 85 16 114/64 100 Mechanical Ventilator 40 07/09/17 21:15 79 16 30 07/09/17 21:00 82 16 99/63 100 Mechanical Ventilator 40 07/09/17 20:00 98.0 85 16 114/64 100 Mechanical Ventilator 40 07/09/17 20:00 85 07/09/17 20:00 40 07/09/17 19:16 72 16 30 07/09/17 18:00 16 104/63 100 Mechanical Ventilator 15.0 40 07/09/17 17:37 96.9 75 16 104/63 100 Mechanical Ventilator 15.0 40 07/09/17 17:08 75 16 40 07/09/17 17:00 104/63 07/09/17 16:00 88 07/09/17 16:00 96.9 18 100 Mechanical Ventilator 40 07/09/17 16:00 40 07/09/17 15:04 101 16 40 07/09/17 15:00 109/62 07/09/17 15:00 18 100 Mechanical Ventilator 40 07/09/17 14:00 18 100 Mechanical Ventilator 40 07/09/17 13:02 102 16 40 07/09/17 13:00 18 100 Mechanical Ventilator 40 07/09/17 12:30 104/57 07/09/17 12:00 98.7 75 18 100 Mechanical Ventilator 40 07/09/17 12:00 40 07/09/17 12:00 87 07/09/17 11:30 101/68 Status: awake Condition: critical HEENT: atraumatic Neck: full ROM Lungs: clear Heart: HR/BP stable, HR/BP unstable Abdomen: soft, active bowel sounds Extremities: no C/C/E, edema Decubiti: location, stage Critical Care - Subjective ROS Limited/Unobtainable: No Interval Events: left lung opened up Condition: critical FI02: 30 Vent Support Breath Rate: 16 Vent Support Mode: AC Vent Tidal Volume: 600 Sputum Amount: Large PIP: 26 Tube Feeding Amount: 65 I&O: Intake and Output 07/10/17 07/11/17 19:00 07:00 Intake Total 360 ml Output Total 5 ml Balance 355 ml Free Water 50 ml Tube Feeding 260 ml Other 50 ml Output Urine Total 5 ml Stool Total 0 ml CXR: left lung open ET-Tube: 8.0 ET Position: 24 Labs: Laboratory Tests Test 10/25/17 05:00 07/10/17 07:50 White Blood Count 14.1 K/UL (4.8-10.8) H Red Blood Count 2.95 M/UL (4.70-6.10) L Hemoglobin 10.0 G/DL (14.2-18.0) L Hematocrit 29.6 % (42.0-52.0) L Mean Corpuscular Volume 101 FL (80-99) H Mean Corpuscular Hemoglobin 33.9 PG (27.0-31.0) H Mean Corpuscular Hemoglobin Concent 33.7 G/DL (32.0-36.0) Red Cell Distribution Width 12.8 % (11.6-14.8) Platelet Count 266 K/UL (150-450) Mean Platelet Volume 6.2 FL (6.5-10.1) L Neutrophils (%) (Auto) 69.7 % (45.0-75.0) Lymphocytes (%) (Auto) 19.9 % (20.0-45.0) L Monocytes (%) (Auto) 8.1 % (1.0-10.0) Eosinophils (%) (Auto) 1.4 % (0.0-3.0) Basophils (%) (Auto) 0.9 % (0.0-2.0) Sodium Level 139 MMOL/L (136-145) Potassium Level 3.3 MMOL/L (3.5-5.1) L Chloride Level 103 MMOL/L (98-107) Carbon Dioxide Level 25 MMOL/L (21-32) Anion Gap 11 mmol/L (5-15) Blood Urea Nitrogen 21 mg/dL (7-18) H Creatinine 0.9 MG/DL (0.55-1.30) Estimat Glomerular Filtration Rate > 60 mL/min (>60) Glucose Level 129 MG/DL (74-106) H Calcium Level 9.2 MG/DL (8.5-10.1) Phosphorus Level 3.5 MG/DL (2.5-4.9) Magnesium Level 2.2 MG/DL (1.8-2.4) Total Bilirubin 0.3 MG/DL (0.2-1.0) Aspartate Amino Transf (AST/SGOT) 10 U/L (15-37) L Alanine Aminotransferase (ALT/SGPT) 12 U/L (12-78) Alkaline Phosphatase 65 U/L (46-116) Total Protein 6.8 G/DL (6.4-8.2) Albumin 2.4 G/DL (3.4-5.0) L Globulin 4.4 g/dL Albumin/Globulin Ratio 0.5 (1.0-2.7) L Arterial Blood pH 7.434 (7.350-7.450) Arterial Blood Partial Pressure CO2 40.7 mmHg (35.0-45.0) Arterial Blood Partial Pressure O2 127.1 mmHg (75.0-100.0) H Arterial Blood HCO3 26.7 mmol/L (22.0-26.0) H Arterial Blood Oxygen Saturation 98.2 % (92.0-98.0) H Arterial Blood Base Excess 2.2 Anthony Test Positive GWEN MARTE Jul 10, 2017 11:13
--- NOTE | 2017-07-10 11:20 | Diagnostic Imaging Report ---
Indication: DYSPNEA Technique: One view of the chest Comparison: 07/09/2017 Findings: Previously demonstrated retrocardiac cystic space is unchanged. No new infiltrates. Persists and mild left lung volume loss. Right lung and pleural space remain clear. Somewhat high position of the nasogastric tube, tip projecting at the level gastric fundus, the proximal port projecting at level of gastroesophageal junction. Impression: Somewhat high position of nasogastric tube. Advancement recommended. This was discussed with ICU nurse at the time of interpretation Otherwise stable findings over one day
--- NOTE | 2017-07-10 11:23 | Wound Nurse Progress Note ---
Wound RN Progress Note Wound Consult #1 Right anterior big toe dry scab adhered to wound bed- scab remains intact.current treatment effective no further deterioration present. Sacral assessed skin remains clear and intact. Recommendation -Local wound care per protocol -Turn and reposition -Keep clean and dry -Optimize nutrition -Offload both heels -Heel protector on both heels -Assess and f/u accordingly for any changes LUBNA DEE Jul 10, 2017 11:23
--- NOTE | 2017-07-10 12:11 | Diagnostic Imaging Report ---
Indication: Post nasogastric tube adjustment Technique: Supine view of the abdomen Comparison: Chest radiograph of 4 hours earlier Findings: Interim advancement of nasogastric tube, tip now projects at level of fundus body junction, proximal port well beyond the gastroesophageal junction. Bowel gas pattern is unremarkable. Inferior vena cava filter is noted Impression: Improved and now satisfactory nasogastric tube position
[2017-07-10] MEDS: DOPamine 400mg/250ml 250 ML IV SCH ×2 (15:00→22:33)
[2017-07-10 17:46] LABS: APPEARANCE,URINE CLEAR; BILIRUBIN, URINE NEGATIVE (NEGATIVE); GLUCOSE, URINE (UA) NEGATIVE (NEGATIVE); KETONES,URINE NEGATIVE (NEGATIVE); LEUKOCYTE ESTERASE ,URINE 1+ (NEGATIVE); NITRITE,URINE NEGATIVE (NEGATIVE); PH,URINE 7 (4.5-8.0); PROTEIN,URINE NEGATIVE (NEGATIVE); UROBILINOGEN,URINE NORMAL MG/DL (0.0-1.0)
[2017-07-10 17:48] LABS: COLOR,URINE YELLOW
[2017-07-10] MEDS ORDERED: Sodium Chloride 500ML 500 ML IV ONE ×2 (20:15→21:30)
--- NOTE | 2017-07-10 23:04 | Emergency Room Report ---
History of Present Illness General Chief Complaint: Upper Respiratory Illness Source: Patient, Medical Record, PMD Present Illness HPI This is a 71-year-old male made it to ICU for respiratory failure. He required pressors. I was asked by nursing staff to place a central line. His only IV access is a 20-gauge peripheral line. Patient unable to give consent. I place a triple-lumen in his right femoral vein. Patient thought procedure without a problem. Please see procedure note. Allergies: Coded Allergies: CHLORPROMAZINE (Verified Allergy, Unknown, 06/23/17) ERYTHROMYCIN BASE (Verified Allergy, Unknown, 06/23/17) Uncoded Allergies: TAPE (Allergy, Unknown, 06/23/17) Nursing Documentation-PMH Hx Cardiac Problems: Yes Hx COPD: Yes Hx Cancer: Yes - CELLULITIS Hx Gastrointestinal Problems: No - ANEMIA Hx Dialysis: No - CKD History Of Psychiatric Problem: Yes - SCHIZOPHERNIA, BIPOLAR Hx Neurological Problems: Yes Hx Seizures: Yes Physical Exam Vital Signs Date Time Temp Pulse Resp B/P (MAP) Pulse Ox O2 Delivery O2 Flow Rate FiO2 06/23/17 09:39 109 22 100/53 97 Nasal Cannula 2.0 06/23/17 10:10 97.7 50 Procedures Central Line Central Line : Consent: Verbal Central Line Lumen: triple Maximal Sterile Barrier Tech: yes cap, yes mask, yes sterile gown, yes sterile gloves, yes large sterile sheet, yes hand hygiene, yes chlorhexidine prep Central Line Postion: femoral (R) Anesthesia: Lidocaine cc's of anesthesia: 5 Complications: none Central Line Post Position: sutured, good blood return Attempts: One Patient Tolerated: Well Complications: None Medical Decision Making Diagnostic Impression: Primary Impression: Acute respiratory failure Additional Impressions: HCAP (healthcare-associated pneumonia) Sepsis Last Vital Signs Date Time Temp Pulse Resp B/P (MAP) Pulse Ox O2 Delivery O2 Flow Rate FiO2 07/10/17 22:40 69 16 25 07/10/17 22:33 99/57 07/10/17 19:00 100 Mechanical Ventilator 07/10/17 17:00 98.3 07/09/17 18:00 15.0 Disposition: ADMITTED INPATIENT Condition: Serious Referrals: QUINTON HUMPHRIES (PCP) MARK VASQUEZ M.D. Jul 10, 2017 23:04
--- NOTE | 2017-07-10 23:58 | Cardiology Progress Note ---
Assessment/Plan Assessment/Plan 1. Acute respiratory failure, re-intubated, pulmonary to follow. 2. Possible septic shock, IV normal saline ordered, may require pressors. 3. Sinus tachycardia, resolved, possibly due to hypoxia/sepsis/leukocytosis. 4. Normal LV systolic function with LVEF at 60-65%. 5. Dual chamber pacemaker implantation, currently intrinsic atrial and ventricular activity. Subjective Subjective Intubated. Hypotensive. Sinus rhythm at 75. Objective Last 24 Hour Vital Signs Date Time Temp Pulse Resp B/P (MAP) Pulse Ox O2 Delivery O2 Flow Rate FiO2 07/10/17 22:40 69 16 25 07/10/17 22:33 99/57 07/10/17 20:48 72 16 25 07/10/17 20:00 30 07/10/17 20:00 75 07/10/17 19:14 75 16 30 07/10/17 19:00 74 16 85/51 100 Mechanical Ventilator 30 07/10/17 18:00 75 16 90/57 100 Mechanical Ventilator 30 07/10/17 17:00 98.3 79 16 86/54 100 Mechanical Ventilator 30 07/10/17 16:53 95 16 30 07/10/17 16:00 30 07/10/17 16:00 85 16 95/62 99 Mechanical Ventilator 30 07/10/17 15:54 75 07/10/17 15:00 71 16 90/52 100 Mechanical Ventilator 30 07/10/17 15:00 94/58 07/10/17 14:39 70 16 30 07/10/17 14:00 72 16 94/58 100 Mechanical Ventilator 30 07/10/17 13:00 74 16 89/52 100 Mechanical Ventilator 30 07/10/17 12:52 81 16 30 07/10/17 12:03 74 07/10/17 12:00 30 07/10/17 12:00 71 16 93/44 100 Mechanical Ventilator 30 07/10/17 11:11 83 16 30 07/10/17 11:00 83 16 84/43 100 Mechanical Ventilator 30 07/10/17 10:00 84 16 99/59 100 Mechanical Ventilator 30 07/10/17 09:25 98 16 30 07/10/17 09:00 87 16 84/46 100 Mechanical Ventilator 30 07/10/17 08:00 98.2 95 17 99/68 100 Mechanical Ventilator 30 07/10/17 08:00 30 07/10/17 07:54 97 07/10/17 07:25 101 16 30 07/10/17 07:00 102 16 88/59 100 Mechanical Ventilator 30 07/10/17 06:00 90 16 88/59 99 Mechanical Ventilator 30 07/10/17 05:00 84 16 93/54 99 Mechanical Ventilator 30 07/10/17 04:31 92 16 30 07/10/17 04:00 30 07/10/17 04:00 98.6 84 16 93/54 99 Mechanical Ventilator 30 07/10/17 04:00 88 07/10/17 03:25 87 16 30 07/10/17 03:00 84 16 95/52 99 Mechanical Ventilator 30 07/10/17 02:00 96 16 112/68 99 Mechanical Ventilator 30 07/10/17 01:25 82 16 30 07/10/17 01:00 81 16 92/56 99 Mechanical Ventilator 30 07/10/17 00:00 98.4 79 16 96/56 99 Mechanical Ventilator 30 Intake and Output 07/10/17 07/11/17 19:00 07:00 Intake Total 930 ml 260 ml Output Total 330 ml 340 ml Balance 600 ml -80 ml Free Water 100 ml Tube Feeding 780 ml 260 ml Other 50 ml Output Urine Total 330 ml 340 ml Stool Total 0 ml 2D Echo: LVEF 60-65%, mild TR with RVSP at 33 mmHg Laboratory Tests Test 07/10/17 05:00 07/10/17 07:50 07/10/17 16:30 White Blood Count 14.1 K/UL (4.8-10.8) H Red Blood Count 2.95 M/UL (4.70-6.10) L Hemoglobin 10.0 G/DL (14.2-18.0) L Hematocrit 29.6 % (42.0-52.0) L Mean Corpuscular Volume 101 FL (80-99) H Mean Corpuscular Hemoglobin 33.9 PG (27.0-31.0) H Mean Corpuscular Hemoglobin Concent 33.7 G/DL (32.0-36.0) Red Cell Distribution Width 12.8 % (11.6-14.8) Platelet Count 266 K/UL (150-450) Mean Platelet Volume 6.2 FL (6.5-10.1) L Neutrophils (%) (Auto) 69.7 % (45.0-75.0) Lymphocytes (%) (Auto) 19.9 % (20.0-45.0) L Monocytes (%) (Auto) 8.1 % (1.0-10.0) Eosinophils (%) (Auto) 1.4 % (0.0-3.0) Basophils (%) (Auto) 0.9 % (0.0-2.0) Sodium Level 139 MMOL/L (136-145) Potassium Level 3.3 MMOL/L (3.5-5.1) L Chloride Level 103 MMOL/L (98-107) Carbon Dioxide Level 25 MMOL/L (21-32) Anion Gap 11 mmol/L (5-15) Blood Urea Nitrogen 21 mg/dL (7-18) H Creatinine 0.9 MG/DL (0.55-1.30) Estimat Glomerular Filtration Rate > 60 mL/min (>60) Glucose Level 129 MG/DL (74-106) H Calcium Level 9.2 MG/DL (8.5-10.1) Phosphorus Level 3.5 MG/DL (2.5-4.9) Magnesium Level 2.2 MG/DL (1.8-2.4) Total Bilirubin 0.3 MG/DL (0.2-1.0) Aspartate Amino Transf (AST/SGOT) 10 U/L (15-37) L Alanine Aminotransferase (ALT/SGPT) 12 U/L (12-78) Alkaline Phosphatase 65 U/L (46-116) Total Protein 6.8 G/DL (6.4-8.2) Albumin 2.4 G/DL (3.4-5.0) L Globulin 4.4 g/dL Albumin/Globulin Ratio 0.5 (1.0-2.7) L Arterial Blood pH 7.434 (7.350-7.450) Arterial Blood Partial Pressure CO2 40.7 mmHg (35.0-45.0) Arterial Blood Partial Pressure O2 127.1 mmHg (75.0-100.0) H Arterial Blood HCO3 26.7 mmol/L (22.0-26.0) H Arterial Blood Oxygen Saturation 98.2 % (92.0-98.0) H Arterial Blood Base Excess 2.2 Anthony Test Positive Urine Color Yellow Urine Appearance Clear Urine pH 7 (4.5-8.0) Urine Specific [place] 1.005 (1.005-1.035) Urine Protein Negative (NEGATIVE) Urine Glucose (UA) Negative (NEGATIVE) Urine Ketones Negative (NEGATIVE) Urine Occult Blood Negative (NEGATIVE) Urine Nitrite Negative (NEGATIVE) Urine Bilirubin Negative (NEGATIVE) Urine Urobilinogen Normal MG/DL (0.0-1.0) Urine Leukocyte Esterase 1+ (NEGATIVE) H Urine RBC 0-2 /HPF (0 - 0) H Urine WBC 0-2 /HPF (0 - 0) Urine Squamous Epithelial Cells None /LPF (NONE/OCC) Urine Bacteria None /HPF (NONE) Urine Yeast Many /HPF (NONE) H Objective HEENT: Atraumatic and normocephalic. ENT, pupils are equal, round, and reactive to light and accommodation. Pale conjunctiva, intubated. NECK: JVP cannot be assessed. No carotid bruit. Carotid upstrokes 2+ bilaterally. LUNGS: Diminished BS both bases. CVS: Normal S1, S2. no murmurs, gallops or rubs. PMI is at fourth intercostal space in the midclavicular line. ABDOMEN: Soft, nontender, and nondistended. No hepatosplenomegaly. Positive bowel sounds. EXTREMITIES: No evidence of edema, clubbing, or cyanosis. CALLUM BARON Jul 10, 2017 23:58
[2017-07-11] VITALS (46 sets, daily range): BP systolic 78–106; BP diastolic 41–59
[2017-07-11 05:05] LABS: APPEARANCE,URINE CLEAR; BILIRUBIN, URINE NEGATIVE (NEGATIVE); COLOR,URINE PALE YELLOW; GLUCOSE, URINE (UA) NEGATIVE (NEGATIVE); KETONES,URINE NEGATIVE (NEGATIVE); LEUKOCYTE ESTERASE ,URINE NEGATIVE (NEGATIVE); NITRITE,URINE NEGATIVE (NEGATIVE); PH,URINE 6 (4.5-8.0); PROTEIN,URINE NEGATIVE (NEGATIVE); UROBILINOGEN,URINE NORMAL MG/DL (0.0-1.0)
[2017-07-11 05:22] LABS: BASOPHILS % (AUTO) 0.6 % (0.0-2.0); EOSINOPHILS % (AUTO) 2.3 % (0.0-3.0); HEMOGLOBIN 9.3 G/DL (14.2-18.0); LYMPHOCYTES % (AUTO) 28.4 % (20.0-45.0); MEAN CORPUSCULAR VOLUME 102 FL (80-99); MONOCYTES % (AUTO) 5.5 % (1.0-10.0); NEUTROPHILS % (AUTO) 63.2 % (45.0-75.0); PLATELET COUNT 272 K/UL (150-450); RED BLOOD COUNT 2.66 M/UL (4.70-6.10); RED CELL DISTRIBUTION WIDTH 13.2 % (11.6-14.8); WHITE BLOOD COUNT 13.6 K/UL (4.8-10.8)
[2017-07-11 05:58] LABS: ALANINE AMINOTRANSFERASE 9 U/L (12-78); ALBUMIN 2.3 G/DL (3.4-5.0); ALBUMIN/GLOBULIN RATIO 0.5 (1.0-2.7); ALKALINE PHOSPHATASE 68 U/L (46-116); ANION GAP 9 mmol/L (5-15); ASPARTATE AMINO TRANSFERASE 10 U/L (15-37); BILIRUBIN,TOTAL 0.2 MG/DL (0.2-1.0); BLOOD UREA NITROGEN 24 mg/dL (7-18); CALCIUM 9.1 MG/DL (8.5-10.1); CARBON DIOXIDE 27 MMOL/L (21-32); CHLORIDE 105 MMOL/L (98-107); CREATININE 0.9 MG/DL (0.55-1.30); POTASSIUM 3.2 MMOL/L (3.5-5.1); SODIUM 141 MMOL/L (136-145)
--- NOTE | 2017-07-11 06:59 | General Progress Note ---
Assessment/Plan Problem List: (1) Respiratory failure ICD Codes: J96.90 - Respiratory failure, unspecified, unspecified whether with hypoxia or hypercapnia SNOMED: 550355766 (2) Sepsis ICD Codes: A41.9 - Sepsis, unspecified organism SNOMED: 63891525 (3) UTI (urinary tract infection) ICD Codes: N39.0 - Urinary tract infection, site not specified SNOMED: 95243729 (4) Schizophrenia ICD Codes: F20.9 - Schizophrenia, unspecified SNOMED: 51136750 (5) History of pacemaker ICD Codes: Z95.0 - Presence of cardiac pacemaker SNOMED: 325050864 (6) Limited mobility ICD Codes: Z74.09 - Other reduced mobility SNOMED: 7851707 Status: unchanged Assessment/Plan o2 pul tx ot pt diet abx cbc bmp am ltach transfer Subjective Constitutional: Reports: weakness Allergies: Coded Allergies: CHLORPROMAZINE (Verified Allergy, Unknown, 06/23/17) ERYTHROMYCIN BASE (Verified Allergy, Unknown, 06/23/17) Uncoded Allergies: TAPE (Allergy, Unknown, 06/23/17) All Systems: reviewed and negative except above Subjective intubated sedated in icu Objective Last 24 Hour Vital Signs Date Time Temp Pulse Resp B/P (MAP) Pulse Ox O2 Delivery O2 Flow Rate FiO2 07/11/17 06:00 60 16 93/48 99 Mechanical Ventilator 07/11/17 05:30 62 16 91/45 99 Mechanical Ventilator 07/11/17 05:22 63 16 25 07/11/17 05:00 65 16 91/45 100 Mechanical Ventilator 07/11/17 04:30 65 16 84/44 99 Mechanical Ventilator 07/11/17 04:00 98.5 74 20 88/43 99 Mechanical Ventilator 07/11/17 04:00 68 07/11/17 04:00 25 07/11/17 03:30 71 20 91/45 99 Mechanical Ventilator 07/11/17 03:15 66 16 25 07/11/17 03:00 64 20 93/43 100 Mechanical Ventilator 07/11/17 02:30 67 20 78/47 100 Mechanical Ventilator 07/11/17 02:00 70 20 80/42 100 Mechanical Ventilator 07/11/17 01:30 71 19 93/49 100 Mechanical Ventilator 07/11/17 01:08 65 16 25 07/11/17 01:00 67 16 85/45 100 Mechanical Ventilator 25 07/11/17 00:00 25 07/11/17 00:00 98.3 62 16 94/50 100 Mechanical Ventilator 25 07/11/17 00:00 84 07/10/17 23:00 66 17 81/47 100 Mechanical Ventilator 25 07/10/17 22:40 69 16 25 07/10/17 22:33 99/57 07/10/17 22:00 72 17 101/50 100 Mechanical Ventilator 25 07/10/17 21:00 71 16 100/59 100 Mechanical Ventilator 30 07/10/17 20:48 72 16 25 07/10/17 20:00 30 07/10/17 20:00 75 07/10/17 20:00 98.8 76 16 90/49 100 Mechanical Ventilator 30 07/10/17 19:14 75 16 30 07/10/17 19:00 74 16 85/51 100 Mechanical Ventilator 30 07/10/17 18:00 75 16 90/57 100 Mechanical Ventilator 30 07/10/17 17:00 98.3 79 16 86/54 100 Mechanical Ventilator 30 07/10/17 16:53 95 16 30 07/10/17 16:00 30 07/10/17 16:00 85 16 95/62 99 Mechanical Ventilator 30 07/10/17 15:54 75 07/10/17 15:00 71 16 90/52 100 Mechanical Ventilator 30 07/10/17 15:00 94/58 07/10/17 14:39 70 16 30 07/10/17 14:00 72 16 94/58 100 Mechanical Ventilator 30 07/10/17 13:00 74 16 89/52 100 Mechanical Ventilator 30 07/10/17 12:52 81 16 30 07/10/17 12:03 74 07/10/17 12:00 30 07/10/17 12:00 71 16 93/44 100 Mechanical Ventilator 30 07/10/17 11:11 83 16 30 07/10/17 11:00 83 16 84/43 100 Mechanical Ventilator 30 07/10/17 10:00 84 16 99/59 100 Mechanical Ventilator 30 07/10/17 09:25 98 16 30 07/10/17 09:00 87 16 84/46 100 Mechanical Ventilator 30 07/10/17 08:00 98.2 95 17 99/68 100 Mechanical Ventilator 30 07/10/17 08:00 30 07/10/17 07:54 97 07/10/17 07:25 101 16 30 07/10/17 07:00 102 16 88/59 100 Mechanical Ventilator 30 Laboratory Tests 07/10/17 07:50: Arterial Blood pH 7.434, Arterial Blood Partial Pressure CO2 40.7, Arterial Blood Partial Pressure O2 127.1H, Arterial Blood HCO3 26.7H, Arterial Blood Oxygen Saturation 98.2H, Arterial Blood Base Excess 2.2, Anthony Test Positive 07/10/17 16:30: Urine Color Yellow, Urine Appearance Clear, Urine pH 7, Urine Specific [place] 1.005, Urine Protein Negative, Urine Glucose (UA) Negative, Urine Ketones Negative, Urine Occult Blood Negative, Urine Nitrite Negative, Urine Bilirubin Negative, Urine Urobilinogen Normal, Urine Leukocyte Esterase 1+H, Urine RBC 0- 2H, Urine WBC 0-2, Urine Squamous Epithelial Cells None, Urine Bacteria None, Urine Yeast ManyH 07/11/17 04:00: White Blood Count 13.6H, Red Blood Count 2.66L, Hemoglobin 9.3L, Hematocrit 27.0L, Mean Corpuscular Volume 102H, Mean Corpuscular Hemoglobin 35.0H, Mean Corpuscular Hemoglobin Concent 34.5, Red Cell Distribution Width 13.2, Platelet Count 272, Mean Platelet Volume 6.5, Neutrophils (%) (Auto) 63.2, Lymphocytes (% ) (Auto) 28.4, Monocytes (%) (Auto) 5.5, Eosinophils (%) (Auto) 2.3, Basophils ( %) (Auto) 0.6, Sodium Level 141, Potassium Level 3.2L, Chloride Level 105, Carbon Dioxide Level 27, Anion Gap 9, Blood Urea Nitrogen 24H, Creatinine 0.9, Estimat Glomerular Filtration Rate > 60, Glucose Level 124H, Calcium Level 9.1, Total Bilirubin 0.2, Aspartate Amino Transf (AST/SGOT) 10L, Alanine Aminotransferase (ALT/SGPT) 9L, Alkaline Phosphatase 68, Pro-B-Type Natriuretic Peptide 308H, Total Protein 7.1, Albumin 2.3L, Globulin 4.8, Albumin/Globulin Ratio 0.5L 07/11/17 04:10: Urine Color Pale yellow, Urine Appearance Clear, Urine pH 6, Urine Specific [place] 1.010, Urine Protein Negative, Urine Glucose (UA) Negative, Urine Ketones Negative, Urine Occult Blood Negative, Urine Nitrite Negative, Urine Bilirubin Negative, Urine Urobilinogen Normal, Urine Leukocyte Esterase Negative Height (Feet): 5 Height (Inches): 11.00 Weight (Pounds): 132 General Appearance: lethargic EENT: normal ENT inspection Neck: normal alignment Cardiovascular: normal peripheral pulses, normal rate, regular rhythm Respiratory/Chest: chest wall non-tender, lungs clear, normal breath sounds Abdomen: normal bowel sounds, non tender, soft Extremities: normal inspection Edema: no edema noted Arm (L), no edema noted Arm (R), no edema noted Leg (L), no edema noted Leg (R), no edema noted Pedal (L), no edema noted Pedal (R), no edema noted Generalized Neurologic: motor weakness Skin: normal pigmentation, warm/dry QUINTON HUMPHRIES Jul 11, 2017 06:59
--- NOTE | 2017-07-11 06:59 | General Progress Note ---
Assessment/Plan Problem List: (1) Respiratory failure ICD Codes: J96.90 - Respiratory failure, unspecified, unspecified whether with hypoxia or hypercapnia SNOMED: 419669804 (2) Sepsis ICD Codes: A41.9 - Sepsis, unspecified organism SNOMED: 15262171 (3) UTI (urinary tract infection) ICD Codes: N39.0 - Urinary tract infection, site not specified SNOMED: 05199983 (4) Schizophrenia ICD Codes: F20.9 - Schizophrenia, unspecified SNOMED: 78007400 (5) History of pacemaker ICD Codes: Z95.0 - Presence of cardiac pacemaker SNOMED: 228419900 (6) Limited mobility ICD Codes: Z74.09 - Other reduced mobility SNOMED: 6906741 Status: unchanged Assessment/Plan o2 pul tx ot pt diet abx cbc bmp am ltach transfer Subjective Constitutional: Reports: weakness Allergies: Coded Allergies: CHLORPROMAZINE (Verified Allergy, Unknown, 06/23/17) ERYTHROMYCIN BASE (Verified Allergy, Unknown, 06/23/17) Uncoded Allergies: TAPE (Allergy, Unknown, 06/23/17) All Systems: reviewed and negative except above Subjective intubated sedated in icu Objective Last 24 Hour Vital Signs Date Time Temp Pulse Resp B/P (MAP) Pulse Ox O2 Delivery O2 Flow Rate FiO2 07/11/17 06:00 60 16 93/48 99 Mechanical Ventilator 07/11/17 05:30 62 16 91/45 99 Mechanical Ventilator 07/11/17 05:22 63 16 25 07/11/17 05:00 65 16 91/45 100 Mechanical Ventilator 07/11/17 04:30 65 16 84/44 99 Mechanical Ventilator 07/11/17 04:00 98.5 74 20 88/43 99 Mechanical Ventilator 07/11/17 04:00 68 07/11/17 04:00 25 07/11/17 03:30 71 20 91/45 99 Mechanical Ventilator 07/11/17 03:15 66 16 25 07/11/17 03:00 64 20 93/43 100 Mechanical Ventilator 07/11/17 02:30 67 20 78/47 100 Mechanical Ventilator 07/11/17 02:00 70 20 80/42 100 Mechanical Ventilator 07/11/17 01:30 71 19 93/49 100 Mechanical Ventilator 07/11/17 01:08 65 16 25 07/11/17 01:00 67 16 85/45 100 Mechanical Ventilator 25 07/11/17 00:00 25 07/11/17 00:00 98.3 62 16 94/50 100 Mechanical Ventilator 25 07/11/17 00:00 84 07/10/17 23:00 66 17 81/47 100 Mechanical Ventilator 25 07/10/17 22:40 69 16 25 07/10/17 22:33 99/57 07/10/17 22:00 72 17 101/50 100 Mechanical Ventilator 25 07/10/17 21:00 71 16 100/59 100 Mechanical Ventilator 30 07/10/17 20:48 72 16 25 07/10/17 20:00 30 07/10/17 20:00 75 07/10/17 20:00 98.8 76 16 90/49 100 Mechanical Ventilator 30 07/10/17 19:14 75 16 30 07/10/17 19:00 74 16 85/51 100 Mechanical Ventilator 30 07/10/17 18:00 75 16 90/57 100 Mechanical Ventilator 30 07/10/17 17:00 98.3 79 16 86/54 100 Mechanical Ventilator 30 07/10/17 16:53 95 16 30 07/10/17 16:00 30 07/10/17 16:00 85 16 95/62 99 Mechanical Ventilator 30 07/10/17 15:54 75 07/10/17 15:00 71 16 90/52 100 Mechanical Ventilator 30 07/10/17 15:00 94/58 07/10/17 14:39 70 16 30 07/10/17 14:00 72 16 94/58 100 Mechanical Ventilator 30 07/10/17 13:00 74 16 89/52 100 Mechanical Ventilator 30 07/10/17 12:52 81 16 30 07/10/17 12:03 74 07/10/17 12:00 30 07/10/17 12:00 71 16 93/44 100 Mechanical Ventilator 30 07/10/17 11:11 83 16 30 07/10/17 11:00 83 16 84/43 100 Mechanical Ventilator 30 07/10/17 10:00 84 16 99/59 100 Mechanical Ventilator 30 07/10/17 09:25 98 16 30 07/10/17 09:00 87 16 84/46 100 Mechanical Ventilator 30 07/10/17 08:00 98.2 95 17 99/68 100 Mechanical Ventilator 30 07/10/17 08:00 30 07/10/17 07:54 97 07/10/17 07:25 101 16 30 07/10/17 07:00 102 16 88/59 100 Mechanical Ventilator 30 Laboratory Tests 07/10/17 07:50: Arterial Blood pH 7.434, Arterial Blood Partial Pressure CO2 40.7, Arterial Blood Partial Pressure O2 127.1H, Arterial Blood HCO3 26.7H, Arterial Blood Oxygen Saturation 98.2H, Arterial Blood Base Excess 2.2, Anthony Test Positive 07/10/17 16:30: Urine Color Yellow, Urine Appearance Clear, Urine pH 7, Urine Specific [place] 1.005, Urine Protein Negative, Urine Glucose (UA) Negative, Urine Ketones Negative, Urine Occult Blood Negative, Urine Nitrite Negative, Urine Bilirubin Negative, Urine Urobilinogen Normal, Urine Leukocyte Esterase 1+H, Urine RBC 0- 2H, Urine WBC 0-2, Urine Squamous Epithelial Cells None, Urine Bacteria None, Urine Yeast ManyH 07/11/17 04:00: White Blood Count 13.6H, Red Blood Count 2.66L, Hemoglobin 9.3L, Hematocrit 27.0L, Mean Corpuscular Volume 102H, Mean Corpuscular Hemoglobin 35.0H, Mean Corpuscular Hemoglobin Concent 34.5, Red Cell Distribution Width 13.2, Platelet Count 272, Mean Platelet Volume 6.5, Neutrophils (%) (Auto) 63.2, Lymphocytes (% ) (Auto) 28.4, Monocytes (%) (Auto) 5.5, Eosinophils (%) (Auto) 2.3, Basophils ( %) (Auto) 0.6, Sodium Level 141, Potassium Level 3.2L, Chloride Level 105, Carbon Dioxide Level 27, Anion Gap 9, Blood Urea Nitrogen 24H, Creatinine 0.9, Estimat Glomerular Filtration Rate > 60, Glucose Level 124H, Calcium Level 9.1, Total Bilirubin 0.2, Aspartate Amino Transf (AST/SGOT) 10L, Alanine Aminotransferase (ALT/SGPT) 9L, Alkaline Phosphatase 68, Pro-B-Type Natriuretic Peptide 308H, Total Protein 7.1, Albumin 2.3L, Globulin 4.8, Albumin/Globulin Ratio 0.5L 07/11/17 04:10: Urine Color Pale yellow, Urine Appearance Clear, Urine pH 6, Urine Specific [place] 1.010, Urine Protein Negative, Urine Glucose (UA) Negative, Urine Ketones Negative, Urine Occult Blood Negative, Urine Nitrite Negative, Urine Bilirubin Negative, Urine Urobilinogen Normal, Urine Leukocyte Esterase Negative Height (Feet): 5 Height (Inches): 11.00 Weight (Pounds): 132 General Appearance: lethargic EENT: normal ENT inspection Neck: normal alignment Cardiovascular: normal peripheral pulses, normal rate, regular rhythm Respiratory/Chest: chest wall non-tender, lungs clear, normal breath sounds Abdomen: normal bowel sounds, non tender, soft Extremities: normal inspection Edema: no edema noted Arm (L), no edema noted Arm (R), no edema noted Leg (L), no edema noted Leg (R), no edema noted Pedal (L), no edema noted Pedal (R), no edema noted Generalized Neurologic: motor weakness Skin: normal pigmentation, warm/dry QUINTON HUMPHRIES Jul 11, 2017 06:59
--- NOTE | 2017-07-11 06:59 | General Progress Note ---
Assessment/Plan Problem List: (1) Respiratory failure ICD Codes: J96.90 - Respiratory failure, unspecified, unspecified whether with hypoxia or hypercapnia SNOMED: 514359137 (2) Sepsis ICD Codes: A41.9 - Sepsis, unspecified organism SNOMED: 42085349 (3) UTI (urinary tract infection) ICD Codes: N39.0 - Urinary tract infection, site not specified SNOMED: 25934806 (4) Schizophrenia ICD Codes: F20.9 - Schizophrenia, unspecified SNOMED: 68183429 (5) History of pacemaker ICD Codes: Z95.0 - Presence of cardiac pacemaker SNOMED: 805422136 (6) Limited mobility ICD Codes: Z74.09 - Other reduced mobility SNOMED: 2142162 Status: unchanged Assessment/Plan o2 pul tx ot pt diet abx cbc bmp am ltach transfer Subjective Constitutional: Reports: weakness Allergies: Coded Allergies: CHLORPROMAZINE (Verified Allergy, Unknown, 06/23/17) ERYTHROMYCIN BASE (Verified Allergy, Unknown, 06/23/17) Uncoded Allergies: TAPE (Allergy, Unknown, 06/23/17) All Systems: reviewed and negative except above Subjective intubated sedated in icu Objective Last 24 Hour Vital Signs Date Time Temp Pulse Resp B/P (MAP) Pulse Ox O2 Delivery O2 Flow Rate FiO2 07/11/17 06:00 60 16 93/48 99 Mechanical Ventilator 07/11/17 05:30 62 16 91/45 99 Mechanical Ventilator 07/11/17 05:22 63 16 25 07/11/17 05:00 65 16 91/45 100 Mechanical Ventilator 07/11/17 04:30 65 16 84/44 99 Mechanical Ventilator 07/11/17 04:00 98.5 74 20 88/43 99 Mechanical Ventilator 07/11/17 04:00 68 07/11/17 04:00 25 07/11/17 03:30 71 20 91/45 99 Mechanical Ventilator 07/11/17 03:15 66 16 25 07/11/17 03:00 64 20 93/43 100 Mechanical Ventilator 07/11/17 02:30 67 20 78/47 100 Mechanical Ventilator 07/11/17 02:00 70 20 80/42 100 Mechanical Ventilator 07/11/17 01:30 71 19 93/49 100 Mechanical Ventilator 07/11/17 01:08 65 16 25 07/11/17 01:00 67 16 85/45 100 Mechanical Ventilator 25 07/11/17 00:00 25 07/11/17 00:00 98.3 62 16 94/50 100 Mechanical Ventilator 25 07/11/17 00:00 84 07/10/17 23:00 66 17 81/47 100 Mechanical Ventilator 25 07/10/17 22:40 69 16 25 07/10/17 22:33 99/57 07/10/17 22:00 72 17 101/50 100 Mechanical Ventilator 25 07/10/17 21:00 71 16 100/59 100 Mechanical Ventilator 30 07/10/17 20:48 72 16 25 07/10/17 20:00 30 07/10/17 20:00 75 07/10/17 20:00 98.8 76 16 90/49 100 Mechanical Ventilator 30 07/10/17 19:14 75 16 30 07/10/17 19:00 74 16 85/51 100 Mechanical Ventilator 30 07/10/17 18:00 75 16 90/57 100 Mechanical Ventilator 30 07/10/17 17:00 98.3 79 16 86/54 100 Mechanical Ventilator 30 07/10/17 16:53 95 16 30 07/10/17 16:00 30 07/10/17 16:00 85 16 95/62 99 Mechanical Ventilator 30 07/10/17 15:54 75 07/10/17 15:00 71 16 90/52 100 Mechanical Ventilator 30 07/10/17 15:00 94/58 07/10/17 14:39 70 16 30 07/10/17 14:00 72 16 94/58 100 Mechanical Ventilator 30 07/10/17 13:00 74 16 89/52 100 Mechanical Ventilator 30 07/10/17 12:52 81 16 30 07/10/17 12:03 74 07/10/17 12:00 30 07/10/17 12:00 71 16 93/44 100 Mechanical Ventilator 30 07/10/17 11:11 83 16 30 07/10/17 11:00 83 16 84/43 100 Mechanical Ventilator 30 07/10/17 10:00 84 16 99/59 100 Mechanical Ventilator 30 07/10/17 09:25 98 16 30 07/10/17 09:00 87 16 84/46 100 Mechanical Ventilator 30 07/10/17 08:00 98.2 95 17 99/68 100 Mechanical Ventilator 30 07/10/17 08:00 30 07/10/17 07:54 97 07/10/17 07:25 101 16 30 07/10/17 07:00 102 16 88/59 100 Mechanical Ventilator 30 Laboratory Tests 07/10/17 07:50: Arterial Blood pH 7.434, Arterial Blood Partial Pressure CO2 40.7, Arterial Blood Partial Pressure O2 127.1H, Arterial Blood HCO3 26.7H, Arterial Blood Oxygen Saturation 98.2H, Arterial Blood Base Excess 2.2, Anthony Test Positive 07/10/17 16:30: Urine Color Yellow, Urine Appearance Clear, Urine pH 7, Urine Specific [place] 1.005, Urine Protein Negative, Urine Glucose (UA) Negative, Urine Ketones Negative, Urine Occult Blood Negative, Urine Nitrite Negative, Urine Bilirubin Negative, Urine Urobilinogen Normal, Urine Leukocyte Esterase 1+H, Urine RBC 0- 2H, Urine WBC 0-2, Urine Squamous Epithelial Cells None, Urine Bacteria None, Urine Yeast ManyH 07/11/17 04:00: White Blood Count 13.6H, Red Blood Count 2.66L, Hemoglobin 9.3L, Hematocrit 27.0L, Mean Corpuscular Volume 102H, Mean Corpuscular Hemoglobin 35.0H, Mean Corpuscular Hemoglobin Concent 34.5, Red Cell Distribution Width 13.2, Platelet Count 272, Mean Platelet Volume 6.5, Neutrophils (%) (Auto) 63.2, Lymphocytes (% ) (Auto) 28.4, Monocytes (%) (Auto) 5.5, Eosinophils (%) (Auto) 2.3, Basophils ( %) (Auto) 0.6, Sodium Level 141, Potassium Level 3.2L, Chloride Level 105, Carbon Dioxide Level 27, Anion Gap 9, Blood Urea Nitrogen 24H, Creatinine 0.9, Estimat Glomerular Filtration Rate > 60, Glucose Level 124H, Calcium Level 9.1, Total Bilirubin 0.2, Aspartate Amino Transf (AST/SGOT) 10L, Alanine Aminotransferase (ALT/SGPT) 9L, Alkaline Phosphatase 68, Pro-B-Type Natriuretic Peptide 308H, Total Protein 7.1, Albumin 2.3L, Globulin 4.8, Albumin/Globulin Ratio 0.5L 07/11/17 04:10: Urine Color Pale yellow, Urine Appearance Clear, Urine pH 6, Urine Specific [place] 1.010, Urine Protein Negative, Urine Glucose (UA) Negative, Urine Ketones Negative, Urine Occult Blood Negative, Urine Nitrite Negative, Urine Bilirubin Negative, Urine Urobilinogen Normal, Urine Leukocyte Esterase Negative Height (Feet): 5 Height (Inches): 11.00 Weight (Pounds): 132 General Appearance: lethargic EENT: normal ENT inspection Neck: normal alignment Cardiovascular: normal peripheral pulses, normal rate, regular rhythm Respiratory/Chest: chest wall non-tender, lungs clear, normal breath sounds Abdomen: normal bowel sounds, non tender, soft Extremities: normal inspection Edema: no edema noted Arm (L), no edema noted Arm (R), no edema noted Leg (L), no edema noted Leg (R), no edema noted Pedal (L), no edema noted Pedal (R), no edema noted Generalized Neurologic: motor weakness Skin: normal pigmentation, warm/dry QUINTON HUMPHRIES Jul 11, 2017 06:59
--- NOTE | 2017-07-11 07:53 | Nephrology Progress Note ---
Assessment/Plan Assessment 1. hypokalemia 2. respiratory failure 3. Hypertension. 4. History of chronic obstructive pulmonary disease. Plan plan to give NS bolus monitoring out put continue iv antibiotic monitoring renal function monitoring electrolyte replace as need avoid any NSAID Subjective Constitutional: Reports: no symptoms HEENT: Reports: no symptoms Genitourinary: Reports: no symptoms Neurologic/Psychiatric: Reports: no symptoms Subjective reintubated no changes in MS found to have low bp given ns bolus,started on dopamine foly cath place Objective Objective Last 24 Hour Vital Signs Date Time Temp Pulse Resp B/P (MAP) Pulse Ox O2 Delivery O2 Flow Rate FiO2 07/11/17 07:00 62 16 93/50 99 Mechanical Ventilator 25 07/11/17 06:00 60 16 93/48 99 Mechanical Ventilator 25 07/11/17 05:30 62 16 91/45 99 Mechanical Ventilator 25 07/11/17 05:22 63 16 25 07/11/17 05:00 65 16 91/45 100 Mechanical Ventilator 25 07/11/17 04:30 65 16 84/44 99 Mechanical Ventilator 25 07/11/17 04:00 98.5 74 20 88/43 99 Mechanical Ventilator 25 07/11/17 04:00 68 07/11/17 04:00 25 07/11/17 03:30 71 20 91/45 99 Mechanical Ventilator 25 07/11/17 03:15 66 16 25 07/11/17 03:00 64 20 93/43 100 Mechanical Ventilator 25 07/11/17 02:30 67 20 78/47 100 Mechanical Ventilator 25 07/11/17 02:00 70 20 80/42 100 Mechanical Ventilator 25 07/11/17 01:30 71 19 93/49 100 Mechanical Ventilator 25 07/11/17 01:08 65 16 25 07/11/17 01:00 67 16 85/45 100 Mechanical Ventilator 25 07/11/17 00:00 25 07/11/17 00:00 98.3 62 16 94/50 100 Mechanical Ventilator 25 07/11/17 00:00 84 07/10/17 23:00 66 17 81/47 100 Mechanical Ventilator 25 07/10/17 22:40 69 16 25 07/10/17 22:33 99/57 07/10/17 22:00 72 17 101/50 100 Mechanical Ventilator 25 07/10/17 21:00 71 16 100/59 100 Mechanical Ventilator 30 07/10/17 20:48 72 16 25 07/10/17 20:00 30 07/10/17 20:00 75 07/10/17 20:00 98.8 76 16 90/49 100 Mechanical Ventilator 30 07/10/17 19:14 75 16 30 07/10/17 19:00 74 16 85/51 100 Mechanical Ventilator 30 07/10/17 18:00 75 16 90/57 100 Mechanical Ventilator 30 07/10/17 17:00 98.3 79 16 86/54 100 Mechanical Ventilator 30 07/10/17 16:53 95 16 30 07/10/17 16:00 30 07/10/17 16:00 85 16 95/62 99 Mechanical Ventilator 30 07/10/17 15:54 75 07/10/17 15:00 71 16 90/52 100 Mechanical Ventilator 30 07/10/17 15:00 94/58 07/10/17 14:39 70 16 30 07/10/17 14:00 72 16 94/58 100 Mechanical Ventilator 30 07/10/17 13:00 74 16 89/52 100 Mechanical Ventilator 30 07/10/17 12:52 81 16 30 07/10/17 12:03 74 07/10/17 12:00 30 07/10/17 12:00 71 16 93/44 100 Mechanical Ventilator 30 07/10/17 11:11 83 16 30 07/10/17 11:00 83 16 84/43 100 Mechanical Ventilator 30 07/10/17 10:00 84 16 99/59 100 Mechanical Ventilator 30 07/10/17 09:25 98 16 30 07/10/17 09:00 87 16 84/46 100 Mechanical Ventilator 30 07/10/17 08:00 98.2 95 17 99/68 100 Mechanical Ventilator 30 07/10/17 08:00 30 07/10/17 07:54 97 Laboratory Tests 07/10/17 16:30: Urine Color Yellow, Urine Appearance Clear, Urine pH 7, Urine Specific [place] 1.005, Urine Protein Negative, Urine Glucose (UA) Negative, Urine Ketones Negative, Urine Occult Blood Negative, Urine Nitrite Negative, Urine Bilirubin Negative, Urine Urobilinogen Normal, Urine Leukocyte Esterase 1+H, Urine RBC 0- 2H, Urine WBC 0-2, Urine Squamous Epithelial Cells None, Urine Bacteria None, Urine Yeast ManyH 07/11/17 04:00: White Blood Count 13.6H, Red Blood Count 2.66L, Hemoglobin 9.3L, Hematocrit 27.0L, Mean Corpuscular Volume 102H, Mean Corpuscular Hemoglobin 35.0H, Mean Corpuscular Hemoglobin Concent 34.5, Red Cell Distribution Width 13.2, Platelet Count 272, Mean Platelet Volume 6.5, Neutrophils (%) (Auto) 63.2, Lymphocytes (% ) (Auto) 28.4, Monocytes (%) (Auto) 5.5, Eosinophils (%) (Auto) 2.3, Basophils ( %) (Auto) 0.6, Sodium Level 141, Potassium Level 3.2L, Chloride Level 105, Carbon Dioxide Level 27, Anion Gap 9, Blood Urea Nitrogen 24H, Creatinine 0.9, Estimat Glomerular Filtration Rate > 60, Glucose Level 124H, Calcium Level 9.1, Total Bilirubin 0.2, Aspartate Amino Transf (AST/SGOT) 10L, Alanine Aminotransferase (ALT/SGPT) 9L, Alkaline Phosphatase 68, Pro-B-Type Natriuretic Peptide 308H, Total Protein 7.1, Albumin 2.3L, Globulin 4.8, Albumin/Globulin Ratio 0.5L 07/11/17 04:10: Urine Color Pale yellow, Urine Appearance Clear, Urine pH 6, Urine Specific [place] 1.010, Urine Protein Negative, Urine Glucose (UA) Negative, Urine Ketones Negative, Urine Occult Blood Negative, Urine Nitrite Negative, Urine Bilirubin Negative, Urine Urobilinogen Normal, Urine Leukocyte Esterase Negative Height (Feet): 5 Height (Inches): 11.00 Weight (Pounds): 132 Objective HEAD AND NECK: No JVP. No LAD. No thyromegaly. Extraocular movements intact. Pupils are reactive to light and accommodation. LUNGS: Clear to auscultation. CARDIAC: Regular rate and rhythm. S1 and S2. No murmur. No rub. ABDOMEN: Soft, nontender, and nondistended. EXTREMITIES: No edema. No clubbing. No cyanosis. NEUROLOGIC: The patient opened up his eyes, not following verbal commands. RANCHO SYKES Jul 11, 2017 07:53
[2017-07-11] MEDS ORDERED: Sodium Chloride 500ML 500 ML IV ONE (08:10)
--- NOTE | 2017-07-11 09:39 | Diagnostic Imaging Report ---
Indication: DYSPNEA Technique: One view of the chest Comparison: 07/10/2017 Findings: Patient is more rotated to the left. There is questionably increased opacity of the left lung base, although this is probably just soft tissue artifact related to the rotation. The right lung and pleural space remain clear. Stable satisfactory positions of endotracheal and nasogastric tubes. Left chest pacemaker remains Impression: Probably unchanged over one day, allowing for rotational differences. Findings as noted
[2017-07-11] MEDS: Docusate 100mg cap ORAL SCH (09:45)
[2017-07-11] MEDS: carBAMazepine 200mg tab ORAL SCH ×4 (09:45→21:55)
[2017-07-11] MEDS: Pantoprazole Inj IV SCH (09:45)
[2017-07-11] MEDS: Solu-MEDROL 125mg Inj IV SCH (09:45)
[2017-07-11] MEDS: Heparin 5000 units/ml inj SUBQ SCH ×2 (09:46→20:58)
[2017-07-11] MEDS: Theophylline ER 100mg ORAL SCH ×2 (09:46→20:51)
[2017-07-11] MEDS ORDERED: NS 500ML IV ONE ×2 (10:16→15:31)
[2017-07-11] MEDS ORDERED: NS 275ml ONE ×2 (10:16→15:31)
--- NOTE | 2017-07-11 11:35 | Pulmonolgy Critical Care Note ---
Critical Care - Asmt/Plan Problems: (1) Acute encephalopathy (2) Acute respiratory failure (3) Collapse of left lung (4) UTI (urinary tract infection) (5) Schizophrenia (6) History of pacemaker (7) Fever Respiratory: monitor respiratory rate, adjust FIO2, CXR Cardiac: continue to monitor HR/BP Renal: F/U I&O, keep IV fluid Infectious Disease: check cultures Gastrointestinal: continue feedings/current rate Endocrine: monitor blood sugar, check HgA1C, continue sliding scale insulin Hematologic: monitor H/H, transfuse if hgb<8.5 Neurologic: PRN Morphine, keep patient comfortable Prophylaxis: Protonix 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, 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, 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 - Objective Last 24 Hour Vital Signs Date Time Temp Pulse Resp B/P (MAP) Pulse Ox O2 Delivery O2 Flow Rate FiO2 07/11/17 11:10 62 16 25 07/11/17 08:50 64 16 25 07/11/17 08:00 74 07/11/17 07:06 103 16 25 07/11/17 07:00 62 16 93/50 99 Mechanical Ventilator 25 07/11/17 06:00 60 16 93/48 99 Mechanical Ventilator 25 07/11/17 05:30 62 16 91/45 99 Mechanical Ventilator 25 07/11/17 05:22 63 16 25 07/11/17 05:00 65 16 91/45 100 Mechanical Ventilator 25 07/11/17 04:30 65 16 84/44 99 Mechanical Ventilator 25 07/11/17 04:00 98.5 74 20 88/43 99 Mechanical Ventilator 25 07/11/17 04:00 68 07/11/17 04:00 25 07/11/17 03:30 71 20 91/45 99 Mechanical Ventilator 25 07/11/17 03:15 66 16 25 07/11/17 03:00 64 20 93/43 100 Mechanical Ventilator 25 07/11/17 02:30 67 20 78/47 100 Mechanical Ventilator 07/11/17 02:00 70 20 80/42 100 Mechanical Ventilator 25 07/11/17 01:30 71 19 93/49 100 Mechanical Ventilator 25 07/11/17 01:08 65 16 25 07/11/17 01:00 67 16 85/45 100 Mechanical Ventilator 25 07/11/17 00:00 25 07/11/17 00:00 98.3 62 16 94/50 100 Mechanical Ventilator 25 07/11/17 00:00 84 07/10/17 23:00 66 17 81/47 100 Mechanical Ventilator 25 07/10/17 22:40 69 16 25 07/10/17 22:33 99/57 07/10/17 22:00 72 17 101/50 100 Mechanical Ventilator 25 07/10/17 21:00 71 16 100/59 100 Mechanical Ventilator 30 07/10/17 20:48 72 16 25 07/10/17 20:00 30 07/10/17 20:00 75 07/10/17 20:00 98.8 76 16 90/49 100 Mechanical Ventilator 30 07/10/17 19:14 75 16 30 07/10/17 19:00 74 16 85/51 100 Mechanical Ventilator 30 07/10/17 18:00 75 16 90/57 100 Mechanical Ventilator 30 07/10/17 17:00 98.3 79 16 86/54 100 Mechanical Ventilator 30 07/10/17 16:53 95 16 30 07/10/17 16:00 30 07/10/17 16:00 85 16 95/62 99 Mechanical Ventilator 30 07/10/17 15:54 75 07/10/17 15:00 71 16 90/52 100 Mechanical Ventilator 30 07/10/17 15:00 94/58 07/10/17 14:39 70 16 30 07/10/17 14:00 72 16 94/58 100 Mechanical Ventilator 30 07/10/17 13:00 74 16 89/52 100 Mechanical Ventilator 30 07/10/17 12:52 81 16 30 07/10/17 12:03 74 07/10/17 12:00 30 07/10/17 12:00 71 16 93/44 100 Mechanical Ventilator 30 Status: awake Condition: critical HEENT: atraumatic, normocephalic Neck: full ROM Lungs: clear Heart: HR/BP stable, HR/BP unstable Abdomen: soft, non-tender, active bowel sounds, feeding tube Extremities: no C/C/E Decubiti: stage Micro: Microbiology Date/Time Source Procedure Growth Status 07/09/17 20:30 Blood Blood Culture - Preliminary NO GROWTH AFTER 24 HOURS Resulted 07/09/17 20:15 Blood Blood Culture - Preliminary NO GROWTH AFTER 24 HOURS Resulted 07/10/17 16:30 Indwelling Cath Urine Culture - Preliminary Resulted Critical Care - Subjective ROS Limited/Unobtainable: Yes ICU Day: 10 Intubation Day: 10 Interval Events: left lung remains open, still lots of secretions. Condition: critical FI02: 25 Vent Support Breath Rate: 16 Vent Support Mode: AC Vent Tidal Volume: 600 Sputum Amount: Small PIP: 22 Tube Feeding Amount: 65 CXR: left lung clear ET-Tube: 8.0 ET Position: 24 Labs: Laboratory Tests Test 07/10/17 16:30 07/11/17 04:00 07/11/17 04:10 Urine Color Yellow Pale yellow Urine Appearance Clear Clear Urine pH 7 (4.5-8.0) 6 (4.5-8.0) Urine Specific [place] 1.005 (1.005-1.035) 1.010 (1.005-1.035) Urine Protein Negative (NEGATIVE) Negative (NEGATIVE) Urine Glucose (UA) Negative (NEGATIVE) Negative (NEGATIVE) Urine Ketones Negative (NEGATIVE) Negative (NEGATIVE) Urine Occult Blood Negative (NEGATIVE) Negative (NEGATIVE) Urine Nitrite Negative (NEGATIVE) Negative (NEGATIVE) Urine Bilirubin Negative (NEGATIVE) Negative (NEGATIVE) Urine Urobilinogen Normal MG/DL (0.0-1.0) Normal MG/DL (0.0-1.0) Urine Leukocyte Esterase 1+ (NEGATIVE) H Negative (NEGATIVE) Urine RBC 0-2 /HPF (0 - 0) H Urine WBC 0-2 /HPF (0 - 0) Urine Squamous Epithelial Cells None /LPF (NONE/OCC) Urine Bacteria None /HPF (NONE) Urine Yeast Many /HPF (NONE) H White Blood Count 13.6 K/UL (4.8-10.8) H Red Blood Count 2.66 M/UL (4.70-6.10) L Hemoglobin 9.3 G/DL (14.2-18.0) L Hematocrit 27.0 % (42.0-52.0) L Mean Corpuscular Volume 102 FL (80-99) H Mean Corpuscular Hemoglobin 35.0 PG (27.0-31.0) H Mean Corpuscular Hemoglobin Concent 34.5 G/DL (32.0-36.0) Red Cell Distribution Width 13.2 % (11.6-14.8) Platelet Count 272 K/UL (150-450) Mean Platelet Volume 6.5 FL (6.5-10.1) Neutrophils (%) (Auto) 63.2 % (45.0-75.0) Lymphocytes (%) (Auto) 28.4 % (20.0-45.0) Monocytes (%) (Auto) 5.5 % (1.0-10.0) Eosinophils (%) (Auto) 2.3 % (0.0-3.0) Basophils (%) (Auto) 0.6 % (0.0-2.0) Sodium Level 141 MMOL/L (136-145) Potassium Level 3.2 MMOL/L (3.5-5.1) L Chloride Level 105 MMOL/L (98-107) Carbon Dioxide Level 27 MMOL/L (21-32) Anion Gap 9 mmol/L (5-15) Blood Urea Nitrogen 24 mg/dL (7-18) H Creatinine 0.9 MG/DL (0.55-1.30) Estimat Glomerular Filtration Rate > 60 mL/min (>60) Glucose Level 124 MG/DL (74-106) H Calcium Level 9.1 MG/DL (8.5-10.1) Total Bilirubin 0.2 MG/DL (0.2-1.0) Aspartate Amino Transf (AST/SGOT) 10 U/L (15-37) L Alanine Aminotransferase (ALT/SGPT) 9 U/L (12-78) L Alkaline Phosphatase 68 U/L (46-116) Pro-B-Type Natriuretic Peptide 308 pg/mL (0-125) H Total Protein 7.1 G/DL (6.4-8.2) Albumin 2.3 G/DL (3.4-5.0) L Globulin 4.8 g/dL Albumin/Globulin Ratio 0.5 (1.0-2.7) L GWEN MARTE Jul 11, 2017 11:35
[2017-07-11] MEDS: DOPamine 400mg/250ml 250 ML IV SCH ×2 (15:17→21:58)
--- NOTE | 2017-07-11 16:50 | Infectious Diseases Prog Note ---
Assessment/Plan Problems: (1) HCAP (healthcare-associated pneumonia) Assessment & Plan: due to pseudomonas aeruginosa , S/P zosyn, and vancomycin for two weeks , repeated . CT chest showed left complete lower lobe collapse, and partial collapse in [place]. S/P bronchoscopy X2 and removal of mucous plug, keep off antibiotics for now, monitor CXR (2) Acute respiratory failure Assessment & Plan: due to pneumonia, and lung collapse , intubated on mechanical ventilation. S/P Bronchoscopy X2 and antibiotics for two weeks , monitor ABG, and CXR, taper steroids, pulmonary is following (3) Sepsis Assessment & Plan: due to the above, resolved, s/p antibiotics for two weeks . (4) Collapse of left lung Assessment & Plan: due to mucous lug, resolved, S/P bronchoscopy Subjective ROS Limited/Unobtainable: Yes Allergies: Coded Allergies: CHLORPROMAZINE (Verified Allergy, Unknown, 06/23/17) ERYTHROMYCIN BASE (Verified Allergy, Unknown, 06/23/17) Uncoded Allergies: TAPE (Allergy, Unknown, 06/23/17) Subjective he was intubated on mechanical ventilation, not in distress , no fever , no diarrhea Objective Vital Signs Last 24 Hour Vital Signs Date Time Temp Pulse Resp B/P (MAP) Pulse Ox O2 Delivery O2 Flow Rate FiO2 07/11/17 15:17 92/47 07/11/17 15:12 65 16 25 07/11/17 15:00 99.3 72 17 92/47 98 Mechanical Ventilator 07/11/17 14:00 60 16 94/50 100 Mechanical Ventilator 07/11/17 13:30 62 16 102/49 99 Mechanical Ventilator 25 07/11/17 13:13 60 16 25 07/11/17 13:00 60 16 92/50 99 Mechanical Ventilator 25 07/11/17 12:30 60 16 89/47 99 Mechanical Ventilator 25 07/11/17 12:00 60 07/11/17 12:00 99.1 60 16 88/47 99 Mechanical Ventilator 25 07/11/17 12:00 25 07/11/17 11:30 60 16 86/48 99 Mechanical Ventilator 25 07/11/17 11:10 62 16 25 07/11/17 11:00 60 16 79/42 99 Mechanical Ventilator 25 07/11/17 10:30 60 16 82/46 99 Mechanical Ventilator 25 07/11/17 10:00 62 16 91/45 99 Mechanical Ventilator 25 07/11/17 09:30 62 16 80/41 99 Mechanical Ventilator 25 07/11/17 09:00 62 16 82/42 99 Mechanical Ventilator 25 07/11/17 08:50 64 16 25 07/11/17 08:30 62 16 79/46 99 Mechanical Ventilator 25 07/11/17 08:00 25 07/11/17 08:00 74 07/11/17 08:00 98.8 62 16 89/50 98 Mechanical Ventilator 25 07/11/17 07:30 62 16 88/43 99 Mechanical Ventilator 25 07/11/17 07:06 103 16 25 07/11/17 07:00 62 16 93/50 99 Mechanical Ventilator 25 07/11/17 06:00 60 16 93/48 99 Mechanical Ventilator 25 07/11/17 05:30 62 16 91/45 99 Mechanical Ventilator 25 07/11/17 05:22 63 16 25 07/11/17 05:00 65 16 91/45 100 Mechanical Ventilator 25 07/11/17 04:30 65 16 84/44 99 Mechanical Ventilator 25 07/11/17 04:00 98.5 74 20 88/43 99 Mechanical Ventilator 25 07/11/17 04:00 68 07/11/17 04:00 25 07/11/17 03:30 71 20 91/45 99 Mechanical Ventilator 25 07/11/17 03:15 66 16 25 07/11/17 03:00 64 20 93/43 100 Mechanical Ventilator 25 07/11/17 02:30 67 20 78/47 100 Mechanical Ventilator 25 07/11/17 02:00 70 20 80/42 100 Mechanical Ventilator 25 07/11/17 01:30 71 19 93/49 100 Mechanical Ventilator 25 07/11/17 01:08 65 16 25 07/11/17 01:00 67 16 85/45 100 Mechanical Ventilator 25 07/11/17 00:00 25 07/11/17 00:00 98.3 62 16 94/50 100 Mechanical Ventilator 25 07/11/17 00:00 84 07/10/17 23:00 66 17 81/47 100 Mechanical Ventilator 25 07/10/17 22:40 69 16 25 07/10/17 22:33 99/57 07/10/17 22:00 72 17 101/50 100 Mechanical Ventilator 25 07/10/17 21:00 71 16 100/59 100 Mechanical Ventilator 30 07/10/17 20:48 72 16 25 07/10/17 20:00 30 07/10/17 20:00 75 07/10/17 20:00 98.8 76 16 90/49 100 Mechanical Ventilator 30 07/10/17 19:14 75 16 30 07/10/17 19:00 74 16 85/51 100 Mechanical Ventilator 30 07/10/17 18:00 75 16 90/57 100 Mechanical Ventilator 30 07/10/17 17:00 98.3 79 16 86/54 100 Mechanical Ventilator 30 07/10/17 16:53 95 16 30 Height (Feet): 5 Height (Inches): 11.00 Weight (Pounds): 132 General Appearance: WD/WN, no acute distress HEENT: normocephalic, atraumatic, anicteric, mucous membranes moist Respiratory/Chest: chest wall non-tender, normal breath sounds, no respiratory distress, no accessory muscle use, decreased breath sounds, crackles/rales Cardiovascular: normal peripheral pulses, normal rate, regular rhythm, no gallop/murmur Abdomen: normal bowel sounds, soft, non tender, no organomegaly, non distended , no mass, no scars Extremities: no cyanosis, no clubbing Skin: no rash, no lesions, no ulcers Microbiology Date/Time Source Procedure Growth Status 07/09/17 20:30 Blood Blood Culture - Preliminary NO GROWTH AFTER 24 HOURS Resulted 07/09/17 20:15 Blood Blood Culture - Preliminary NO GROWTH AFTER 24 HOURS Resulted 07/10/17 16:30 Indwelling Cath Urine Culture - Preliminary Resulted Laboratory Tests Test 07/11/17 04:00 07/11/17 04:10 White Blood Count 13.6 K/UL (4.8-10.8) H Red Blood Count 2.66 M/UL (4.70-6.10) L Hemoglobin 9.3 G/DL (14.2-18.0) L Hematocrit 27.0 % (42.0-52.0) L Mean Corpuscular Volume 102 FL (80-99) H Mean Corpuscular Hemoglobin 35.0 PG (27.0-31.0) H Mean Corpuscular Hemoglobin Concent 34.5 G/DL (32.0-36.0) Red Cell Distribution Width 13.2 % (11.6-14.8) Platelet Count 272 K/UL (150-450) Mean Platelet Volume 6.5 FL (6.5-10.1) Neutrophils (%) (Auto) 63.2 % (45.0-75.0) Lymphocytes (%) (Auto) 28.4 % (20.0-45.0) Monocytes (%) (Auto) 5.5 % (1.0-10.0) Eosinophils (%) (Auto) 2.3 % (0.0-3.0) Basophils (%) (Auto) 0.6 % (0.0-2.0) Sodium Level 141 MMOL/L (136-145) Potassium Level 3.2 MMOL/L (3.5-5.1) L Chloride Level 105 MMOL/L (98-107) Carbon Dioxide Level 27 MMOL/L (21-32) Anion Gap 9 mmol/L (5-15) Blood Urea Nitrogen 24 mg/dL (7-18) H Creatinine 0.9 MG/DL (0.55-1.30) Estimat Glomerular Filtration Rate > 60 mL/min (>60) Glucose Level 124 MG/DL (74-106) H Calcium Level 9.1 MG/DL (8.5-10.1) Total Bilirubin 0.2 MG/DL (0.2-1.0) Aspartate Amino Transf (AST/SGOT) 10 U/L (15-37) L Alanine Aminotransferase (ALT/SGPT) 9 U/L (12-78) L Alkaline Phosphatase 68 U/L (46-116) Pro-B-Type Natriuretic Peptide 308 pg/mL (0-125) H Total Protein 7.1 G/DL (6.4-8.2) Albumin 2.3 G/DL (3.4-5.0) L Globulin 4.8 g/dL Albumin/Globulin Ratio 0.5 (1.0-2.7) L Urine Color Pale yellow Urine Appearance Clear Urine pH 6 (4.5-8.0) Urine Specific [place] 1.010 (1.005-1.035) Urine Protein Negative (NEGATIVE) Urine Glucose (UA) Negative (NEGATIVE) Urine Ketones Negative (NEGATIVE) Urine Occult Blood Negative (NEGATIVE) Urine Nitrite Negative (NEGATIVE) Urine Bilirubin Negative (NEGATIVE) Urine Urobilinogen Normal MG/DL (0.0-1.0) Urine Leukocyte Esterase Negative (NEGATIVE) Current Medications Medications (Trade) Dose Ordered Sig/Karen Route PRN Reason Start Time Stop Time Status Last Admin Dose Admin Carbamazepine (TEGretol) 200 mg FOUR TIMES A DAY ORAL 07/02/17 09:00 07/23/17 12:59 07/11/17 13:26 Dextrose (Dextrose 50%) STAT PRN IV Hypoglycemia 07/02/17 12:00 07/25/17 11:59 Docusate Sodium (Colace) 100 mg DAILY ORAL 07/02/17 09:00 07/29/17 08:59 07/11/17 09:45 Dopamine HCl/ Dextrose 250 ml @ 0 mls/hr Q24H IV 07/03/17 15:00 08/02/17 14:59 07/11/17 15:17 Dopamine HCl/ Dextrose 250 ml @ 0 mls/hr Q24H IV 07/10/17 21:30 08/09/17 21:29 07/10/17 22:33 Heparin Sodium (Porcine) (Heparin 5000 units/ml) 5,000 units EVERY 12 HOURS SUBQ 07/02/17 09:00 07/23/17 20:59 07/11/17 09:46 Levetiracetam (Keppra) 500 mg Q12HR ORAL 07/02/17 09:00 07/23/17 20:59 07/11/17 09:45 Lorazepam (Ativan 2mg/ml 1ml) 2 mg Q4H PRN IV For Anxiety 07/08/17 10:15 07/15/17 10:14 Methylprednisolone Sodium Succinate (Solu-MEDROL) 60 mg DAILY IV 07/02/17 09:00 07/23/17 17:59 07/11/17 09:45 Morphine Sulfate (Morphine Sulfate) 4 mg Q4H PRN IVP Severe Pain (Pain Scale 7-10) 07/08/17 18:00 07/15/17 13:59 Nitroglycerin (Ntg) 0.4 mg Q5M X 3 DOSES PRN SL Prn Chest Pain 07/01/17 23:45 07/23/17 13:29 Olanzapine (ZyPREXA) 20 mg BEDTIME ORAL 07/02/17 21:00 07/24/17 08:59 07/10/17 21:09 Ondansetron HCl (Zofran) 4 mg Q6H PRN IVP Nausea & Vomiting 07/02/17 00:00 07/23/17 11:59 Pantoprazole (Protonix) 40 mg DAILY IV 07/02/17 09:00 08/01/17 08:59 07/11/17 09:45 Theophylline (Dane-Dur) 100 mg EVERY 12 HOURS ORAL 07/02/17 09:00 07/23/17 20:59 07/11/17 09:46 Dafne Orourke M.D. Jul 11, 2017 16:50
--- NOTE | 2017-07-11 22:03 | General Progress Note ---
Assessment/Plan Assessment/Plan Dementia schizophrenia encephalopathy -zyprexa -ativan Subjective Neurologic/Psychiatric: Reports: anxiety Allergies: Coded Allergies: CHLORPROMAZINE (Verified Allergy, Unknown, 06/23/17) ERYTHROMYCIN BASE (Verified Allergy, Unknown, 06/23/17) Uncoded Allergies: TAPE (Allergy, Unknown, 06/23/17) Subjective nad calm and no agitation Objective Last 24 Hour Vital Signs Date Time Temp Pulse Resp B/P (MAP) Pulse Ox O2 Delivery O2 Flow Rate FiO2 07/11/17 21:58 100/46 07/11/17 21:00 73 12 104/59 100 Venturi Mask 50 07/11/17 20:46 Non-Rebreather 15.0 100 07/11/17 20:45 99 Nasal Cannula 2.0 28 07/11/17 20:45 Nasal Cannula 2.0 28 07/11/17 20:30 79 12 93/48 100 Venturi Mask 100 07/11/17 20:00 73 12 93/50 100 Mechanical Ventilator 25 07/11/17 19:30 80 12 90/50 100 Mechanical Ventilator 25 07/11/17 19:02 60 16 25 07/11/17 19:00 65 12 93/52 100 Mechanical Ventilator 25 07/11/17 18:30 65 12 85/48 100 Mechanical Ventilator 25 07/11/17 18:00 66 16 99/50 98 Mechanical Ventilator 25 07/11/17 17:30 62 16 106/52 100 Mechanical Ventilator 25 07/11/17 17:26 81 16 25 07/11/17 17:00 60 16 94/55 100 Mechanical Ventilator 25 07/11/17 16:30 60 15 92/49 99 Mechanical Ventilator 25 07/11/17 16:00 98.2 60 15 92/49 99 Mechanical Ventilator 25 07/11/17 16:00 25 07/11/17 16:00 68 07/11/17 15:30 61 15 92/52 99 Mechanical Ventilator 25 07/11/17 15:17 92/47 07/11/17 15:12 65 16 25 07/11/17 15:00 99.3 72 17 92/47 98 Mechanical Ventilator 25 07/11/17 14:30 61 15 92/52 99 Mechanical Ventilator 25 07/11/17 14:00 60 16 94/50 100 Mechanical Ventilator 25 07/11/17 13:30 62 16 102/49 99 Mechanical Ventilator 25 07/11/17 13:13 60 16 25 07/11/17 13:00 60 16 92/50 99 Mechanical Ventilator 25 07/11/17 12:30 60 16 89/47 99 Mechanical Ventilator 25 07/11/17 12:00 60 07/11/17 12:00 99.1 60 16 88/47 99 Mechanical Ventilator 25 07/11/17 12:00 25 07/11/17 11:30 60 16 86/48 99 Mechanical Ventilator 25 07/11/17 11:10 62 16 25 07/11/17 11:00 60 16 79/42 99 Mechanical Ventilator 25 07/11/17 10:30 60 16 82/46 99 Mechanical Ventilator 25 07/11/17 10:00 62 16 91/45 99 Mechanical Ventilator 25 07/11/17 09:30 62 16 80/41 99 Mechanical Ventilator 25 07/11/17 09:00 62 16 82/42 99 Mechanical Ventilator 25 07/11/17 08:50 64 16 25 07/11/17 08:30 62 16 79/46 99 Mechanical Ventilator 25 07/11/17 08:00 25 07/11/17 08:00 74 07/11/17 08:00 98.8 62 16 89/50 98 Mechanical Ventilator 25 07/11/17 07:30 62 16 88/43 99 Mechanical Ventilator 25 07/11/17 07:06 103 16 25 07/11/17 07:00 62 16 93/50 99 Mechanical Ventilator 25 07/11/17 06:00 60 16 93/48 99 Mechanical Ventilator 25 07/11/17 05:30 62 16 91/45 99 Mechanical Ventilator 25 07/11/17 05:22 63 16 25 07/11/17 05:00 65 16 91/45 100 Mechanical Ventilator 25 07/11/17 04:30 65 16 84/44 99 Mechanical Ventilator 25 07/11/17 04:00 98.5 74 20 88/43 99 Mechanical Ventilator 25 07/11/17 04:00 68 07/11/17 04:00 25 07/11/17 03:30 71 20 91/45 99 Mechanical Ventilator 25 07/11/17 03:15 66 16 25 07/11/17 03:00 64 20 93/43 100 Mechanical Ventilator 25 07/11/17 02:30 67 20 78/47 100 Mechanical Ventilator 25 07/11/17 02:00 70 20 80/42 100 Mechanical Ventilator 25 07/11/17 01:30 71 19 93/49 100 Mechanical Ventilator 25 07/11/17 01:08 65 16 25 07/11/17 01:00 67 16 85/45 100 Mechanical Ventilator 25 07/11/17 00:00 25 07/11/17 00:00 98.3 62 16 94/50 100 Mechanical Ventilator 25 07/11/17 00:00 84 07/10/17 23:00 66 17 81/47 100 Mechanical Ventilator 07/10/17 22:40 69 16 25 07/10/17 22:33 99/57 Intake and Output 07/11/17 07/12/17 19:00 07:00 Intake Total 1518.770 ml Output Total 650 ml Balance 868.770 ml Free Water 100 ml IV Total 603.770 ml Tube Feeding 715 ml Other 100 ml Output Urine Total 650 ml Laboratory Tests 07/11/17 04:00: White Blood Count 13.6H, Red Blood Count 2.66L, Hemoglobin 9.3L, Hematocrit 27.0L, Mean Corpuscular Volume 102H, Mean Corpuscular Hemoglobin 35.0H, Mean Corpuscular Hemoglobin Concent 34.5, Red Cell Distribution Width 13.2, Platelet Count 272, Mean Platelet Volume 6.5, Neutrophils (%) (Auto) 63.2, Lymphocytes (% ) (Auto) 28.4, Monocytes (%) (Auto) 5.5, Eosinophils (%) (Auto) 2.3, Basophils ( %) (Auto) 0.6, Sodium Level 141, Potassium Level 3.2L, Chloride Level 105, Carbon Dioxide Level 27, Anion Gap 9, Blood Urea Nitrogen 24H, Creatinine 0.9, Estimat Glomerular Filtration Rate > 60, Glucose Level 124H, Calcium Level 9.1, Total Bilirubin 0.2, Aspartate Amino Transf (AST/SGOT) 10L, Alanine Aminotransferase (ALT/SGPT) 9L, Alkaline Phosphatase 68, Pro-B-Type Natriuretic Peptide 308H, Total Protein 7.1, Albumin 2.3L, Globulin 4.8, Albumin/Globulin Ratio 0.5L 07/11/17 04:10: Urine Color Pale yellow, Urine Appearance Clear, Urine pH 6, Urine Specific [place] 1.010, Urine Protein Negative, Urine Glucose (UA) Negative, Urine Ketones Negative, Urine Occult Blood Negative, Urine Nitrite Negative, Urine Bilirubin Negative, Urine Urobilinogen Normal, Urine Leukocyte Esterase Negative 07/11/17 21:06: Arterial Blood pH 7.335L, Arterial Blood Partial Pressure CO2 45.8H, Arterial Blood Partial Pressure O2 355.6H, Arterial Blood HCO3 23.9, Arterial Blood Oxygen Saturation 99.6H, Arterial Blood Base Excess -2.0, Anthony Test Positive Height (Feet): 5 Height (Inches): 11.00 Weight (Pounds): 132 General Appearance: WD/WN, no apparent distress, confused Neurologic: disoriented Hill Hare M.D. Jul 11, 2017 22:03
--- NOTE | 2017-07-11 23:07 | Cardiology Progress Note ---
Assessment/Plan Assessment/Plan 1. Acute respiratory failure, extubated, pulmonary to follow. 2. Possible septic shock, IV normal saline ordered, may require pressors. 3. Sinus tachycardia, resolved, possibly due to hypoxia/sepsis/leukocytosis. 4. Normal LV systolic function with LVEF at 60-65%. 5. Dual chamber pacemaker implantation, currently intrinsic atrial and ventricular activity. Subjective Subjective Extubated today, currently on the venturi mask. Sinus rhythm at 73. Objective Last 24 Hour Vital Signs Date Time Temp Pulse Resp B/P (MAP) Pulse Ox O2 Delivery O2 Flow Rate FiO2 07/11/17 22:00 25 07/11/17 21:58 100/46 07/11/17 21:00 73 12 104/59 100 Venturi Mask 50 07/11/17 20:46 Non-Rebreather 15.0 100 07/11/17 20:45 99 Nasal Cannula 2.0 28 07/11/17 20:45 Nasal Cannula 2.0 28 07/11/17 20:30 79 12 93/48 100 Venturi Mask 100 07/11/17 20:00 73 12 93/50 100 Mechanical Ventilator 25 07/11/17 20:00 73 07/11/17 19:30 80 12 90/50 100 Mechanical Ventilator 25 07/11/17 19:02 60 16 25 07/11/17 19:00 65 12 93/52 100 Mechanical Ventilator 25 07/11/17 18:30 65 12 85/48 100 Mechanical Ventilator 25 07/11/17 18:00 66 16 99/50 98 Mechanical Ventilator 25 07/11/17 17:30 62 16 106/52 100 Mechanical Ventilator 25 07/11/17 17:26 81 16 25 07/11/17 17:00 60 16 94/55 100 Mechanical Ventilator 25 07/11/17 16:30 60 15 92/49 99 Mechanical Ventilator 25 07/11/17 16:00 98.2 60 15 92/49 99 Mechanical Ventilator 25 07/11/17 16:00 25 07/11/17 16:00 68 07/11/17 15:30 61 15 92/52 99 Mechanical Ventilator 25 07/11/17 15:17 92/47 07/11/17 15:12 65 16 25 07/11/17 15:00 99.3 72 17 92/47 98 Mechanical Ventilator 25 07/11/17 14:30 61 15 92/52 99 Mechanical Ventilator 25 07/11/17 14:00 60 16 94/50 100 Mechanical Ventilator 25 07/11/17 13:30 62 16 102/49 99 Mechanical Ventilator 25 07/11/17 13:13 60 16 25 07/11/17 13:00 60 16 92/50 99 Mechanical Ventilator 25 07/11/17 12:30 60 16 89/47 99 Mechanical Ventilator 25 07/11/17 12:00 60 07/11/17 12:00 99.1 60 16 88/47 99 Mechanical Ventilator 25 07/11/17 12:00 25 07/11/17 11:30 60 16 86/48 99 Mechanical Ventilator 25 07/11/17 11:10 62 16 25 07/11/17 11:00 60 16 79/42 99 Mechanical Ventilator 25 07/11/17 10:30 60 16 82/46 99 Mechanical Ventilator 25 07/11/17 10:00 62 16 91/45 99 Mechanical Ventilator 25 07/11/17 09:30 62 16 80/41 99 Mechanical Ventilator 25 07/11/17 09:00 62 16 82/42 99 Mechanical Ventilator 25 07/11/17 08:50 64 16 25 07/11/17 08:30 62 16 79/46 99 Mechanical Ventilator 25 07/11/17 08:00 25 07/11/17 08:00 74 07/11/17 08:00 98.8 62 16 89/50 98 Mechanical Ventilator 25 07/11/17 07:30 62 16 88/43 99 Mechanical Ventilator 25 07/11/17 07:06 103 16 25 07/11/17 07:00 62 16 93/50 99 Mechanical Ventilator 25 07/11/17 06:00 60 16 93/48 99 Mechanical Ventilator 25 07/11/17 05:30 62 16 91/45 99 Mechanical Ventilator 25 07/11/17 05:22 63 16 25 07/11/17 05:00 65 16 91/45 100 Mechanical Ventilator 25 07/11/17 04:30 65 16 84/44 99 Mechanical Ventilator 25 07/11/17 04:00 98.5 74 20 88/43 99 Mechanical Ventilator 25 07/11/17 04:00 68 07/11/17 04:00 25 07/11/17 03:30 71 20 91/45 99 Mechanical Ventilator 25 07/11/17 03:15 66 16 25 07/11/17 03:00 64 20 93/43 100 Mechanical Ventilator 25 07/11/17 02:30 67 20 78/47 100 Mechanical Ventilator 25 07/11/17 02:00 70 20 80/42 100 Mechanical Ventilator 25 07/11/17 01:30 71 19 93/49 100 Mechanical Ventilator 25 07/11/17 01:08 65 16 25 07/11/17 01:00 67 16 85/45 100 Mechanical Ventilator 25 07/11/17 00:00 25 07/11/17 00:00 98.3 62 16 94/50 100 Mechanical Ventilator 25 07/11/17 00:00 84 Intake and Output 07/11/17 07/12/17 19:00 07:00 Intake Total 1583.770 ml 195 ml Output Total 725 ml 275 ml Balance 858.770 ml -80 ml Free Water 100 ml IV Total 603.770 ml Tube Feeding 780 ml 195 ml Other 100 ml Output Urine Total 725 ml 275 ml 2D Echo: LVEF 60-65%, mild TR with RVSP at 33 mmHg Laboratory Tests Test 07/11/17 04:00 07/11/17 04:10 07/11/17 21:06 White Blood Count 13.6 K/UL (4.8-10.8) H Red Blood Count 2.66 M/UL (4.70-6.10) L Hemoglobin 9.3 G/DL (14.2-18.0) L Hematocrit 27.0 % (42.0-52.0) L Mean Corpuscular Volume 102 FL (80-99) H Mean Corpuscular Hemoglobin 35.0 PG (27.0-31.0) H Mean Corpuscular Hemoglobin Concent 34.5 G/DL (32.0-36.0) Red Cell Distribution Width 13.2 % (11.6-14.8) Platelet Count 272 K/UL (150-450) Mean Platelet Volume 6.5 FL (6.5-10.1) Neutrophils (%) (Auto) 63.2 % (45.0-75.0) Lymphocytes (%) (Auto) 28.4 % (20.0-45.0) Monocytes (%) (Auto) 5.5 % (1.0-10.0) Eosinophils (%) (Auto) 2.3 % (0.0-3.0) Basophils (%) (Auto) 0.6 % (0.0-2.0) Sodium Level 141 MMOL/L (136-145) Potassium Level 3.2 MMOL/L (3.5-5.1) L Chloride Level 105 MMOL/L (98-107) Carbon Dioxide Level 27 MMOL/L (21-32) Anion Gap 9 mmol/L (5-15) Blood Urea Nitrogen 24 mg/dL (7-18) H Creatinine 0.9 MG/DL (0.55-1.30) Estimat Glomerular Filtration Rate > 60 mL/min (>60) Glucose Level 124 MG/DL (74-106) H Calcium Level 9.1 MG/DL (8.5-10.1) Total Bilirubin 0.2 MG/DL (0.2-1.0) Aspartate Amino Transf (AST/SGOT) 10 U/L (15-37) L Alanine Aminotransferase (ALT/SGPT) 9 U/L (12-78) L Alkaline Phosphatase 68 U/L (46-116) Pro-B-Type Natriuretic Peptide 308 pg/mL (0-125) H Total Protein 7.1 G/DL (6.4-8.2) Albumin 2.3 G/DL (3.4-5.0) L Globulin 4.8 g/dL Albumin/Globulin Ratio 0.5 (1.0-2.7) L Urine Color Pale yellow Urine Appearance Clear Urine pH 6 (4.5-8.0) Urine Specific [place] 1.010 (1.005-1.035) Urine Protein Negative (NEGATIVE) Urine Glucose (UA) Negative (NEGATIVE) Urine Ketones Negative (NEGATIVE) Urine Occult Blood Negative (NEGATIVE) Urine Nitrite Negative (NEGATIVE) Urine Bilirubin Negative (NEGATIVE) Urine Urobilinogen Normal MG/DL (0.0-1.0) Urine Leukocyte Esterase Negative (NEGATIVE) Arterial Blood pH 7.335 (7.350-7.450) Arterial Blood Partial Pressure CO2 45.8 mmHg (35.0-45.0) H Arterial Blood Partial Pressure O2 355.6 mmHg (75.0-100.0) H Arterial Blood HCO3 23.9 mmol/L (22.0-26.0) Arterial Blood Oxygen Saturation 99.6 % (92.0-98.0) H Arterial Blood Base Excess -2.0 Anthony Test Positive Microbiology Date/Time Source Procedure Growth Status 07/09/17 20:30 Blood Blood Culture - Preliminary NO GROWTH AFTER 24 HOURS Resulted 07/09/17 20:15 Blood Blood Culture - Preliminary NO GROWTH AFTER 24 HOURS Resulted 07/10/17 16:30 Indwelling Cath Urine Culture - Preliminary Resulted Objective HEENT: Atraumatic and normocephalic. ENT, pupils are equal, round, and reactive to light and accommodation. Pale conjunctiva, intubated. NECK: JVP cannot be assessed. No carotid bruit. Carotid upstrokes 2+ bilaterally. LUNGS: Diminished BS both bases. CVS: Normal S1, S2. no murmurs, gallops or rubs. PMI is at fourth intercostal space in the midclavicular line. ABDOMEN: Soft, nontender, and nondistended. No hepatosplenomegaly. Positive bowel sounds. EXTREMITIES: No evidence of edema, clubbing, or cyanosis. CALLUM BARON Jul 11, 2017 23:07
[2017-07-12] VITALS (44 sets, daily range): BP systolic 83–121; BP diastolic 36–67
[2017-07-12 05:11] LABS: BASOPHILS % (AUTO) 0.7 % (0.0-2.0); EOSINOPHILS % (AUTO) 2.8 % (0.0-3.0); HEMATOCRIT 28.3 % (42.0-52.0); HEMOGLOBIN 9.3 G/DL (14.2-18.0); LYMPHOCYTES % (AUTO) 29.3 % (20.0-45.0); MEAN CORPUSCULAR VOLUME 103 FL (80-99); MONOCYTES % (AUTO) 5.5 % (1.0-10.0); NEUTROPHILS % (AUTO) 61.8 % (45.0-75.0); PLATELET COUNT 304 K/UL (150-450); RED BLOOD COUNT 2.75 M/UL (4.70-6.10); RED CELL DISTRIBUTION WIDTH 13.2 % (11.6-14.8)
[2017-07-12 05:16] LABS: PHOSPHORUS 5.4 MG/DL (2.5-4.9)
[2017-07-12 05:24] LABS: ALANINE AMINOTRANSFERASE 10 U/L (12-78); ALBUMIN 2.3 G/DL (3.4-5.0); ALBUMIN/GLOBULIN RATIO 0.5 (1.0-2.7); ALKALINE PHOSPHATASE 70 U/L (46-116); ANION GAP 9 mmol/L (5-15); ASPARTATE AMINO TRANSFERASE 11 U/L (15-37); BILIRUBIN,TOTAL 0.1 MG/DL (0.2-1.0); BLOOD UREA NITROGEN 23 mg/dL (7-18); CALCIUM 9.2 MG/DL (8.5-10.1); CARBON DIOXIDE 26 MMOL/L (21-32); CHLORIDE 107 MMOL/L (98-107); CREATININE 0.9 MG/DL (0.55-1.30); POTASSIUM 4.1 MMOL/L (3.5-5.1); SODIUM 142 MMOL/L (136-145)
[2017-07-12] MEDS: carBAMazepine 200mg tab ORAL SCH ×4 (09:18→20:56)
[2017-07-12] MEDS: Docusate 100mg cap ORAL SCH (09:18)
[2017-07-12] MEDS: Theophylline ER 100mg ORAL SCH ×2 (09:18→20:56)
[2017-07-12] MEDS: Heparin 5000 units/ml inj SUBQ SCH ×2 (09:20→20:57)
[2017-07-12] MEDS: Solu-MEDROL 125mg Inj IV SCH (09:20)
[2017-07-12] MEDS: Pantoprazole Inj IV SCH (09:21)
--- NOTE | 2017-07-12 12:53 | Nephrology Progress Note ---
Assessment/Plan Assessment 1. hypokalemia 2. respiratory failure 3. Hypertension. 4. History of chronic obstructive pulmonary disease. Plan plan to give NS bolus monitoring out put continue iv antibiotic monitoring renal function monitoring electrolyte replace as need avoid any NSAID Subjective Constitutional: Reports: no symptoms HEENT: Reports: no symptoms Genitourinary: Reports: no symptoms Neurologic/Psychiatric: Reports: no symptoms Subjective self extubated no changes in MS doing ok Objective Objective Last 24 Hour Vital Signs Date Time Temp Pulse Resp B/P (MAP) Pulse Ox O2 Delivery O2 Flow Rate FiO2 07/12/17 12:00 97.6 67 20 100/53 98 Venturi Mask 50 07/12/17 12:00 67 07/12/17 11:00 67 20 105/53 95 Venturi Mask 50 07/12/17 11:00 69 20 105/53 95 Venturi Mask 50 07/12/17 10:30 72 20 97/44 95 Venturi Mask 50 07/12/17 10:00 70 20 104/49 99 Venturi Mask 50 07/12/17 09:30 73 23 96/56 93 Venturi Mask 50 07/12/17 09:00 73 26 96/47 97 Venturi Mask 50 07/12/17 08:30 80 23 97/46 95 Venturi Mask 50 07/12/17 08:00 79 07/12/17 08:00 75 26 97/46 100 Venturi Mask 50 07/12/17 07:30 97.4 73 25 95/40 99 Venturi Mask 50 07/12/17 07:00 75 26 94/45 100 Venturi Mask 50 07/12/17 06:30 75 26 90/45 100 Venturi Mask 50 07/12/17 06:00 75 26 92/45 100 Venturi Mask 50 07/12/17 06:00 97/52 07/12/17 05:30 72 26 92/45 100 Venturi Mask 50 07/12/17 05:00 73 26 90/45 100 Venturi Mask 50 07/12/17 05:00 92/42 07/12/17 04:30 75 26 92/45 100 Venturi Mask 50 07/12/17 04:00 98.0 75 26 90/45 100 Venturi Mask 50 07/12/17 04:00 89/48 07/12/17 04:00 89 07/12/17 03:30 74 26 96/45 100 Venturi Mask 50 07/12/17 03:00 74 26 90/38 100 Venturi Mask 50 07/12/17 03:00 102/46 07/12/17 02:30 72 26 92/45 100 Venturi Mask 50 07/12/17 02:00 73 26 86/45 100 Venturi Mask 50 07/12/17 02:00 89/45 07/12/17 01:30 74 26 90/45 100 Venturi Mask 50 07/12/17 01:00 74 26 90/45 100 Venturi Mask 50 07/12/17 01:00 93/43 07/12/17 00:30 98.0 74 26 92/45 100 Venturi Mask 50 07/12/17 00:00 98.0 70 26 99/47 100 Venturi Mask 50 07/12/17 00:00 93/43 07/12/17 00:00 70 07/11/17 23:30 76 24 104/59 100 Venturi Mask 50 07/11/17 23:00 93/45 07/11/17 23:00 73 25 93/45 100 Venturi Mask 50 07/11/17 22:30 76 24 103/55 100 Venturi Mask 50 07/11/17 22:00 25 07/11/17 22:00 83 23 104/47 100 Venturi Mask 50 07/11/17 21:58 100/46 07/11/17 21:58 83/52 07/11/17 21:30 85 25 100/48 100 Venturi Mask 50 07/11/17 21:00 73 12 104/59 100 Venturi Mask 50 07/11/17 21:00 104/69 07/11/17 20:46 Non-Rebreather 15.0 100 07/11/17 20:45 99 Nasal Cannula 2.0 28 07/11/17 20:45 Nasal Cannula 2.0 28 07/11/17 20:30 79 12 93/48 100 Venturi Mask 100 07/11/17 20:00 25 07/11/17 20:00 73 12 93/50 100 Mechanical Ventilator 25 07/11/17 20:00 103/49 07/11/17 20:00 73 07/11/17 19:30 80 12 90/50 100 Mechanical Ventilator 25 07/11/17 19:02 60 16 25 07/11/17 19:00 65 12 93/52 100 Mechanical Ventilator 25 07/11/17 19:00 83/52 07/11/17 18:30 65 12 85/48 100 Mechanical Ventilator 25 07/11/17 18:00 66 16 99/50 98 Mechanical Ventilator 25 07/11/17 17:30 62 16 106/52 100 Mechanical Ventilator 25 07/11/17 17:26 81 16 25 07/11/17 17:00 60 16 94/55 100 Mechanical Ventilator 25 07/11/17 16:30 60 15 92/49 99 Mechanical Ventilator 25 07/11/17 16:00 98.2 60 15 92/49 99 Mechanical Ventilator 25 07/11/17 16:00 25 07/11/17 16:00 68 07/11/17 15:30 61 15 92/52 99 Mechanical Ventilator 25 07/11/17 15:17 92/47 07/11/17 15:12 65 16 25 07/11/17 15:00 99.3 72 17 92/47 98 Mechanical Ventilator 25 07/11/17 14:30 61 15 92/52 99 Mechanical Ventilator 25 07/11/17 14:00 60 16 94/50 100 Mechanical Ventilator 25 07/11/17 13:30 62 16 102/49 99 Mechanical Ventilator 25 07/11/17 13:13 60 16 25 07/11/17 13:00 60 16 92/50 99 Mechanical Ventilator 25 Intake and Output 07/12/17 07/13/17 19:00 07:00 Intake Total 351.131 ml Output Total 635 ml Balance -283.869 ml Free Water 60 ml IV Total 31.131 ml Tube Feeding 260 ml Output Urine Total 635 ml Laboratory Tests 07/11/17 21:06: Arterial Blood pH 7.335L, Arterial Blood Partial Pressure CO2 45.8H, Arterial Blood Partial Pressure O2 355.6H, Arterial Blood HCO3 23.9, Arterial Blood Oxygen Saturation 99.6H, Arterial Blood Base Excess -2.0, Anthony Test Positive 07/12/17 03:40: White Blood Count 13.0H, Red Blood Count 2.75L, Hemoglobin 9.3L, Hematocrit 28.3L, Mean Corpuscular Volume 103H, Mean Corpuscular Hemoglobin 33.9H, Mean Corpuscular Hemoglobin Concent 33.0, Red Cell Distribution Width 13.2, Platelet Count 304, Mean Platelet Volume 6.1L, Neutrophils (%) (Auto) 61.8, Lymphocytes ( %) (Auto) 29.3, Monocytes (%) (Auto) 5.5, Eosinophils (%) (Auto) 2.8, Basophils (%) (Auto) 0.7, Prothrombin Time 10.4, Prothromb Time International Ratio 1.0, Activated Partial Thromboplast Time 28, Sodium Level 142, Potassium Level 4.1, Chloride Level 107, Carbon Dioxide Level 26, Anion Gap 9, Blood Urea Nitrogen 23H, Creatinine 0.9, Estimat Glomerular Filtration Rate > 60, Glucose Level 109H , Calcium Level 9.2, Phosphorus Level 5.4H, Magnesium Level 2.1, Total Bilirubin 0.1L, Aspartate Amino Transf (AST/SGOT) 11L, Alanine Aminotransferase (ALT/SGPT) 10L, Alkaline Phosphatase 70, Total Protein 6.8, Albumin 2.3L, Globulin 4.5, Albumin/Globulin Ratio 0.5L 07/12/17 09:00: Arterial Blood pH 7.380, Arterial Blood Partial Pressure CO2 45.4H, Arterial Blood Partial Pressure O2 76.0, Arterial Blood HCO3 26.7H, Arterial Blood Oxygen Saturation 94.2, Arterial Blood Base Excess 1.3, Anthony Test Positive Height (Feet): 5 Height (Inches): 11.00 Weight (Pounds): 130 Objective HEAD AND NECK: No JVP. No LAD. No thyromegaly. Extraocular movements intact. Pupils are reactive to light and accommodation. LUNGS: Clear to auscultation. CARDIAC: Regular rate and rhythm. S1 and S2. No murmur. No rub. ABDOMEN: Soft, nontender, and nondistended. EXTREMITIES: No edema. No clubbing. No cyanosis. NEUROLOGIC: The patient opened up his eyes, not following verbal commands. RANCHO SYKES Jul 12, 2017 12:53
--- NOTE | 2017-07-12 13:06 | Pulmonolgy Critical Care Note ---
Critical Care - Asmt/Plan Problems: (1) Acute encephalopathy (2) Acute respiratory failure (3) Collapse of left lung (4) UTI (urinary tract infection) (5) Schizophrenia (6) History of pacemaker (7) Fever Respiratory: monitor respiratory rate, adjust FIO2, other - self extubated. tolerating well. Cardiac: continue to monitor HR/BP Renal: F/U I&O, keep IV fluid Gastrointestinal: continue feedings/current rate, hold feedings Endocrine: monitor blood sugar, check TSH Hematologic: monitor H/H Neurologic: PRN Ativan, PRN Morphine Prophylaxis: Heparin Critical Care - Objective Last 24 Hour Vital Signs Date Time Temp Pulse Resp B/P (MAP) Pulse Ox O2 Delivery O2 Flow Rate FiO2 07/12/17 12:00 97.6 67 20 100/53 98 Venturi Mask 50 07/12/17 12:00 67 07/12/17 11:00 67 20 105/53 95 Venturi Mask 50 07/12/17 11:00 69 20 105/53 95 Venturi Mask 50 07/12/17 10:30 72 20 97/44 95 Venturi Mask 50 07/12/17 10:00 70 20 104/49 99 Venturi Mask 50 07/12/17 09:30 73 23 96/56 93 Venturi Mask 50 07/12/17 09:00 73 26 96/47 97 Venturi Mask 50 07/12/17 08:30 80 23 97/46 95 Venturi Mask 50 07/12/17 08:00 79 07/12/17 08:00 75 26 97/46 100 Venturi Mask 50 07/12/17 07:30 97.4 73 25 95/40 99 Venturi Mask 50 07/12/17 07:00 75 26 94/45 100 Venturi Mask 50 07/12/17 06:30 75 26 90/45 100 Venturi Mask 50 07/12/17 06:00 75 26 92/45 100 Venturi Mask 50 07/12/17 06:00 97/52 07/12/17 05:30 72 26 92/45 100 Venturi Mask 50 07/12/17 05:00 73 26 90/45 100 Venturi Mask 50 07/12/17 05:00 92/42 07/12/17 04:30 75 26 92/45 100 Venturi Mask 50 07/12/17 04:00 98.0 75 26 90/45 100 Venturi Mask 50 07/12/17 04:00 89/48 07/12/17 04:00 89 07/12/17 03:30 74 26 96/45 100 Venturi Mask 50 07/12/17 03:00 74 26 90/38 100 Venturi Mask 50 07/12/17 03:00 102/46 07/12/17 02:30 72 26 92/45 100 Venturi Mask 50 07/12/17 02:00 73 26 86/45 100 Venturi Mask 50 07/12/17 02:00 89/45 07/12/17 01:30 74 26 90/45 100 Venturi Mask 50 07/12/17 01:00 74 26 90/45 100 Venturi Mask 50 07/12/17 01:00 93/43 07/12/17 00:30 98.0 74 26 92/45 100 Venturi Mask 50 07/12/17 00:00 98.0 70 26 99/47 100 Venturi Mask 50 07/12/17 00:00 93/43 07/12/17 00:00 70 07/11/17 23:30 76 24 104/59 100 Venturi Mask 50 07/11/17 23:00 93/45 07/11/17 23:00 73 25 93/45 100 Venturi Mask 50 07/11/17 22:30 76 24 103/55 100 Venturi Mask 50 07/11/17 22:00 25 07/11/17 22:00 83 23 104/47 100 Venturi Mask 50 07/11/17 21:58 100/46 07/11/17 21:58 83/52 07/11/17 21:30 85 25 100/48 100 Venturi Mask 50 07/11/17 21:00 73 12 104/59 100 Venturi Mask 50 07/11/17 21:00 104/69 07/11/17 20:46 Non-Rebreather 15.0 100 07/11/17 20:45 99 Nasal Cannula 2.0 28 07/11/17 20:45 Nasal Cannula 2.0 28 07/11/17 20:30 79 12 93/48 100 Venturi Mask 100 07/11/17 20:00 25 07/11/17 20:00 73 12 93/50 100 Mechanical Ventilator 25 07/11/17 20:00 103/49 07/11/17 20:00 73 07/11/17 19:30 80 12 90/50 100 Mechanical Ventilator 25 07/11/17 19:02 60 16 25 07/11/17 19:00 65 12 93/52 100 Mechanical Ventilator 25 07/11/17 19:00 83/52 07/11/17 18:30 65 12 85/48 100 Mechanical Ventilator 25 07/11/17 18:00 66 16 99/50 98 Mechanical Ventilator 25 07/11/17 17:30 62 16 106/52 100 Mechanical Ventilator 25 07/11/17 17:26 81 16 25 07/11/17 17:00 60 16 94/55 100 Mechanical Ventilator 25 07/11/17 16:30 60 15 92/49 99 Mechanical Ventilator 25 07/11/17 16:00 98.2 60 15 92/49 99 Mechanical Ventilator 25 07/11/17 16:00 25 07/11/17 16:00 68 07/11/17 15:30 61 15 92/52 99 Mechanical Ventilator 25 07/11/17 15:17 92/47 07/11/17 15:12 65 16 25 07/11/17 15:00 99.3 72 17 92/47 98 Mechanical Ventilator 25 07/11/17 14:30 61 15 92/52 99 Mechanical Ventilator 25 07/11/17 14:00 60 16 94/50 100 Mechanical Ventilator 25 07/11/17 13:30 62 16 102/49 99 Mechanical Ventilator 25 07/11/17 13:13 60 16 25 Status: awake Condition: critical HEENT: atraumatic, normocephalic Lungs: clear Heart: HR/BP stable Abdomen: soft, non-tender Extremities: no C/C/E, edema Decubiti: location Micro: Microbiology Date/Time Source Procedure Growth Status 07/09/17 20:30 Blood Blood Culture - Preliminary NO GROWTH AFTER 48 HOURS Resulted 07/09/17 20:15 Blood Blood Culture - Preliminary NO GROWTH AFTER 48 HOURS Resulted 07/10/17 16:30 Indwelling Cath Urine Culture - Preliminary Gram Negative Bacillus 1 YEAST Resulted Critical Care - Subjective ROS Limited/Unobtainable: No ICU Day: 10 Condition: critical EKG Rhythm: Sinus Rhythm FI02: 50 Vent Support Breath Rate: 16 Vent Support Mode: AC Vent Tidal Volume: 600 Sputum Amount: Moderate PIP: 26 Tube Feeding Amount: 65 I&O: Intake and Output 07/12/17 07/13/17 19:00 07:00 Intake Total 351.131 ml Output Total 635 ml Balance -283.869 ml Free Water 60 ml IV Total 31.131 ml Tube Feeding 260 ml Output Urine Total 635 ml CXR: left lung open ET-Tube: 8.0 ET Position: 24 Labs: Laboratory Tests Test 07/11/17 21:06 07/12/17 03:40 07/12/17 09:00 Arterial Blood pH 7.335 (7.350-7.450) 7.380 (7.350-7.450) Arterial Blood Partial Pressure CO2 45.8 mmHg (35.0-45.0) H 45.4 mmHg (35.0-45.0) H Arterial Blood Partial Pressure O2 355.6 mmHg (75.0-100.0) H 76.0 mmHg (75.0-100.0) Arterial Blood HCO3 23.9 mmol/L (22.0-26.0) 26.7 mmol/L (22.0-26.0) H Arterial Blood Oxygen Saturation 99.6 % (92.0-98.0) H 94.2 % (92.0-98.0) Arterial Blood Base Excess -2.0 1.3 Anthony Test Positive Positive White Blood Count 13.0 K/UL (4.8-10.8) H Red Blood Count 2.75 M/UL (4.70-6.10) L Hemoglobin 9.3 G/DL (14.2-18.0) L Hematocrit 28.3 % (42.0-52.0) L Mean Corpuscular Volume 103 FL (80-99) H Mean Corpuscular Hemoglobin 33.9 PG (27.0-31.0) H Mean Corpuscular Hemoglobin Concent 33.0 G/DL (32.0-36.0) Red Cell Distribution Width 13.2 % (11.6-14.8) Platelet Count 304 K/UL (150-450) Mean Platelet Volume 6.1 FL (6.5-10.1) L Neutrophils (%) (Auto) 61.8 % (45.0-75.0) Lymphocytes (%) (Auto) 29.3 % (20.0-45.0) Monocytes (%) (Auto) 5.5 % (1.0-10.0) Eosinophils (%) (Auto) 2.8 % (0.0-3.0) Basophils (%) (Auto) 0.7 % (0.0-2.0) Prothrombin Time 10.4 SEC (9.30-11.50) Prothromb Time International Ratio 1.0 (0.9-1.1) Activated Partial Thromboplast Time 28 SEC (23-33) Sodium Level 142 MMOL/L (136-145) Potassium Level 4.1 MMOL/L (3.5-5.1) Chloride Level 107 MMOL/L (98-107) Carbon Dioxide Level 26 MMOL/L (21-32) Anion Gap 9 mmol/L (5-15) Blood Urea Nitrogen 23 mg/dL (7-18) H Creatinine 0.9 MG/DL (0.55-1.30) Estimat Glomerular Filtration Rate > 60 mL/min (>60) Glucose Level 109 MG/DL (74-106) H Calcium Level 9.2 MG/DL (8.5-10.1) Phosphorus Level 5.4 MG/DL (2.5-4.9) H Magnesium Level 2.1 MG/DL (1.8-2.4) Total Bilirubin 0.1 MG/DL (0.2-1.0) L Aspartate Amino Transf (AST/SGOT) 11 U/L (15-37) L Alanine Aminotransferase (ALT/SGPT) 10 U/L (12-78) L Alkaline Phosphatase 70 U/L (46-116) Total Protein 6.8 G/DL (6.4-8.2) Albumin 2.3 G/DL (3.4-5.0) L Globulin 4.5 g/dL Albumin/Globulin Ratio 0.5 (1.0-2.7) L GWEN MARTE Jul 12, 2017 13:06
--- NOTE | 2017-07-12 14:20 | General Progress Note ---
Assessment/Plan Status: stable, progressing Assessment/Plan Dementia schizophrenia encephalopathy -zyprexa -ativan Subjective Neurologic/Psychiatric: Reports: anxiety, depressed, emotional problems Allergies: Coded Allergies: CHLORPROMAZINE (Verified Allergy, Unknown, 06/23/17) ERYTHROMYCIN BASE (Verified Allergy, Unknown, 06/23/17) Uncoded Allergies: TAPE (Allergy, Unknown, 06/23/17) Subjective nad calm and no agitation the pt self extubated Objective Last 24 Hour Vital Signs Date Time Temp Pulse Resp B/P (MAP) Pulse Ox O2 Delivery O2 Flow Rate FiO2 07/12/17 14:00 87 20 97/55 96 Venturi Mask 50 07/12/17 13:00 71 20 94/51 100 Venturi Mask 50 07/12/17 12:00 97.6 67 20 100/53 98 Venturi Mask 50 07/12/17 12:00 67 07/12/17 11:00 67 20 105/53 95 Venturi Mask 50 07/12/17 11:00 69 20 105/53 95 Venturi Mask 50 07/12/17 10:30 72 20 97/44 95 Venturi Mask 50 07/12/17 10:00 70 20 104/49 99 Venturi Mask 50 07/12/17 09:30 73 23 96/56 93 Venturi Mask 50 07/12/17 09:00 73 26 96/47 97 Venturi Mask 50 07/12/17 08:30 80 23 97/46 95 Venturi Mask 50 07/12/17 08:00 79 07/12/17 08:00 75 26 97/46 100 Venturi Mask 50 07/12/17 07:30 97.4 73 25 95/40 99 Venturi Mask 50 07/12/17 07:00 75 26 94/45 100 Venturi Mask 50 07/12/17 06:30 75 26 90/45 100 Venturi Mask 50 07/12/17 06:00 75 26 92/45 100 Venturi Mask 50 07/12/17 06:00 97/52 07/12/17 05:30 72 26 92/45 100 Venturi Mask 50 07/12/17 05:00 73 26 90/45 100 Venturi Mask 50 07/12/17 05:00 92/42 07/12/17 04:30 75 26 92/45 100 Venturi Mask 50 07/12/17 04:00 98.0 75 26 90/45 100 Venturi Mask 50 07/12/17 04:00 89/48 07/12/17 04:00 89 07/12/17 03:30 74 26 96/45 100 Venturi Mask 50 07/12/17 03:00 74 26 90/38 100 Venturi Mask 50 07/12/17 03:00 102/46 07/12/17 02:30 72 26 92/45 100 Venturi Mask 50 07/12/17 02:00 73 26 86/45 100 Venturi Mask 50 07/12/17 02:00 89/45 07/12/17 01:30 74 26 90/45 100 Venturi Mask 50 07/12/17 01:00 74 26 90/45 100 Venturi Mask 50 07/12/17 01:00 93/43 07/12/17 00:30 98.0 74 26 92/45 100 Venturi Mask 50 07/12/17 00:00 98.0 70 26 99/47 100 Venturi Mask 50 07/12/17 00:00 93/43 07/12/17 00:00 70 07/11/17 23:30 76 24 104/59 100 Venturi Mask 50 07/11/17 23:00 93/45 07/11/17 23:00 73 25 93/45 100 Venturi Mask 50 07/11/17 22:30 76 24 103/55 100 Venturi Mask 50 07/11/17 22:00 25 07/11/17 22:00 83 23 104/47 100 Venturi Mask 50 07/11/17 21:58 100/46 07/11/17 21:58 83/52 07/11/17 21:30 85 25 100/48 100 Venturi Mask 50 07/11/17 21:00 73 12 104/59 100 Venturi Mask 50 07/11/17 21:00 104/69 07/11/17 20:46 Non-Rebreather 15.0 100 07/11/17 20:45 99 Nasal Cannula 2.0 28 07/11/17 20:45 Nasal Cannula 2.0 28 07/11/17 20:30 79 12 93/48 100 Venturi Mask 100 07/11/17 20:00 25 07/11/17 20:00 73 12 93/50 100 Mechanical Ventilator 25 07/11/17 20:00 103/49 07/11/17 20:00 73 10/26/17 19:30 80 12 90/50 100 Mechanical Ventilator 25 07/11/17 19:02 60 16 25 07/11/17 19:00 65 12 93/52 100 Mechanical Ventilator 25 07/11/17 19:00 83/52 07/11/17 18:30 65 12 85/48 100 Mechanical Ventilator 25 07/11/17 18:00 66 16 99/50 98 Mechanical Ventilator 25 07/11/17 17:30 62 16 106/52 100 Mechanical Ventilator 25 07/11/17 17:26 81 16 25 07/11/17 17:00 60 16 94/55 100 Mechanical Ventilator 25 07/11/17 16:30 60 15 92/49 99 Mechanical Ventilator 25 07/11/17 16:00 98.2 60 15 92/49 99 Mechanical Ventilator 25 07/11/17 16:00 25 07/11/17 16:00 68 07/11/17 15:30 61 15 92/52 99 Mechanical Ventilator 25 07/11/17 15:17 92/47 07/11/17 15:12 65 16 25 07/11/17 15:00 99.3 72 17 92/47 98 Mechanical Ventilator 25 07/11/17 14:30 61 15 92/52 99 Mechanical Ventilator 25 Intake and Output 07/12/17 07/13/17 19:00 07:00 Intake Total 562.262 ml Output Total 835 ml Balance -272.738 ml Free Water 60 ml IV Total 62.262 ml Tube Feeding 390 ml Other 50 ml Output Urine Total 835 ml Laboratory Tests 07/11/17 21:06: Arterial Blood pH 7.335L, Arterial Blood Partial Pressure CO2 45.8H, Arterial Blood Partial Pressure O2 355.6H, Arterial Blood HCO3 23.9, Arterial Blood Oxygen Saturation 99.6H, Arterial Blood Base Excess -2.0, Anthony Test Positive 07/12/17 03:40: White Blood Count 13.0H, Red Blood Count 2.75L, Hemoglobin 9.3L, Hematocrit 28.3L, Mean Corpuscular Volume 103H, Mean Corpuscular Hemoglobin 33.9H, Mean Corpuscular Hemoglobin Concent 33.0, Red Cell Distribution Width 13.2, Platelet Count 304, Mean Platelet Volume 6.1L, Neutrophils (%) (Auto) 61.8, Lymphocytes ( %) (Auto) 29.3, Monocytes (%) (Auto) 5.5, Eosinophils (%) (Auto) 2.8, Basophils (%) (Auto) 0.7, Prothrombin Time 10.4, Prothromb Time International Ratio 1.0, Activated Partial Thromboplast Time 28, Sodium Level 142, Potassium Level 4.1, Chloride Level 107, Carbon Dioxide Level 26, Anion Gap 9, Blood Urea Nitrogen 23H, Creatinine 0.9, Estimat Glomerular Filtration Rate > 60, Glucose Level 109H , Calcium Level 9.2, Phosphorus Level 5.4H, Magnesium Level 2.1, Total Bilirubin 0.1L, Aspartate Amino Transf (AST/SGOT) 11L, Alanine Aminotransferase (ALT/SGPT) 10L, Alkaline Phosphatase 70, Total Protein 6.8, Albumin 2.3L, Globulin 4.5, Albumin/Globulin Ratio 0.5L 07/12/17 09:00: Arterial Blood pH 7.380, Arterial Blood Partial Pressure CO2 45.4H, Arterial Blood Partial Pressure O2 76.0, Arterial Blood HCO3 26.7H, Arterial Blood Oxygen Saturation 94.2, Arterial Blood Base Excess 1.3, Anthony Test Positive Height (Feet): 5 Height (Inches): 11.00 Weight (Pounds): 130 General Appearance: no apparent distress, alert, confused Hill Hare M.D. Jul 12, 2017 14:20
[2017-07-12] MEDS: DOPamine 400mg/250ml 250 ML IV SCH ×2 (14:30→21:57)
--- NOTE | 2017-07-12 15:34 | General Progress Note ---
Assessment/Plan Problem List: (1) History of pacemaker ICD Codes: Z95.0 - Presence of cardiac pacemaker SNOMED: 789181343 (2) Schizophrenia ICD Codes: F20.9 - Schizophrenia, unspecified SNOMED: 30317646 (3) Limited mobility ICD Codes: Z74.09 - Other reduced mobility SNOMED: 9303812 (4) Acute respiratory failure ICD Codes: J96.00 - Acute respiratory failure, unspecified whether with hypoxia or hypercapnia SNOMED: 84584921 (5) Sepsis ICD Codes: A41.9 - Sepsis, unspecified organism SNOMED: 74218251 (6) HCAP (healthcare-associated pneumonia) ICD Codes: J18.9 - Pneumonia, unspecified organism SNOMED: 227747242 Status: progressing Assessment/Plan afebrile vitals holding resp insuff psych pt reviewed chart and labs no wheezing Subjective ROS Limited/Unobtainable: Yes Constitutional: Reports: no symptoms Allergies: Coded Allergies: CHLORPROMAZINE (Verified Allergy, Unknown, 06/23/17) ERYTHROMYCIN BASE (Verified Allergy, Unknown, 06/23/17) Uncoded Allergies: TAPE (Allergy, Unknown, 06/23/17) Objective Last 24 Hour Vital Signs Date Time Temp Pulse Resp B/P (MAP) Pulse Ox O2 Delivery O2 Flow Rate FiO2 07/12/17 14:30 97/55 07/12/17 14:00 87 20 97/55 96 Venturi Mask 50 07/12/17 13:00 71 20 94/51 100 Venturi Mask 50 07/12/17 12:00 97.6 67 20 100/53 98 Venturi Mask 50 07/12/17 12:00 67 07/12/17 11:00 67 20 105/53 95 Venturi Mask 50 07/12/17 11:00 69 20 105/53 95 Venturi Mask 50 07/12/17 10:30 72 20 97/44 95 Venturi Mask 50 07/12/17 10:00 70 20 104/49 99 Venturi Mask 50 07/12/17 09:30 73 23 96/56 93 Venturi Mask 50 07/12/17 09:00 73 26 96/47 97 Venturi Mask 50 07/12/17 08:30 80 23 97/46 95 Venturi Mask 50 07/12/17 08:00 79 07/12/17 08:00 75 26 97/46 100 Venturi Mask 50 07/12/17 07:30 97.4 73 25 95/40 99 Venturi Mask 50 07/12/17 07:00 75 26 94/45 100 Venturi Mask 50 07/12/17 06:30 75 26 90/45 100 Venturi Mask 50 07/12/17 06:00 75 26 92/45 100 Venturi Mask 50 07/12/17 06:00 97/52 07/12/17 05:30 72 26 92/45 100 Venturi Mask 50 07/12/17 05:00 73 26 90/45 100 Venturi Mask 50 07/12/17 05:00 92/42 07/12/17 04:30 75 26 92/45 100 Venturi Mask 50 07/12/17 04:00 98.0 75 26 90/45 100 Venturi Mask 50 07/12/17 04:00 89/48 07/12/17 04:00 89 07/12/17 03:30 74 26 96/45 100 Venturi Mask 50 07/12/17 03:00 74 26 90/38 100 Venturi Mask 50 07/12/17 03:00 102/46 07/12/17 02:30 72 26 92/45 100 Venturi Mask 50 07/12/17 02:00 73 26 86/45 100 Venturi Mask 50 07/12/17 02:00 89/45 07/12/17 01:30 74 26 90/45 100 Venturi Mask 50 07/12/17 01:00 74 26 90/45 100 Venturi Mask 50 07/12/17 01:00 93/43 07/12/17 00:30 98.0 74 26 92/45 100 Venturi Mask 50 07/12/17 00:00 98.0 70 26 99/47 100 Venturi Mask 50 07/12/17 00:00 93/43 07/12/17 00:00 70 07/11/17 23:30 76 24 104/59 100 Venturi Mask 50 07/11/17 23:00 93/45 07/11/17 23:00 73 25 93/45 100 Venturi Mask 50 07/11/17 22:30 76 24 103/55 100 Venturi Mask 50 07/11/17 22:00 25 07/11/17 22:00 83 23 104/47 100 Venturi Mask 50 07/11/17 21:58 100/46 07/11/17 21:58 83/52 07/11/17 21:30 85 25 100/48 100 Venturi Mask 50 07/11/17 21:00 73 12 104/59 100 Venturi Mask 50 07/11/17 21:00 104/69 07/11/17 20:46 Non-Rebreather 15.0 100 07/11/17 20:45 99 Nasal Cannula 2.0 28 07/11/17 20:45 Nasal Cannula 2.0 28 07/11/17 20:30 79 12 93/48 100 Venturi Mask 100 07/11/17 20:00 25 07/11/17 20:00 73 12 93/50 100 Mechanical Ventilator 25 07/11/17 20:00 103/49 07/11/17 20:00 73 07/11/17 19:30 80 12 90/50 100 Mechanical Ventilator 25 07/11/17 19:02 60 16 25 07/11/17 19:00 65 12 93/52 100 Mechanical Ventilator 25 07/11/17 19:00 83/52 07/11/17 18:30 65 12 85/48 100 Mechanical Ventilator 25 07/11/17 18:00 66 16 99/50 98 Mechanical Ventilator 25 07/11/17 17:30 62 16 106/52 100 Mechanical Ventilator 25 07/11/17 17:26 81 16 25 07/11/17 17:00 60 16 94/55 100 Mechanical Ventilator 25 07/11/17 16:30 60 15 92/49 99 Mechanical Ventilator 25 07/11/17 16:00 98.2 60 15 92/49 99 Mechanical Ventilator 25 07/11/17 16:00 25 07/11/17 16:00 68 Intake and Output 07/12/17 07/13/17 19:00 07:00 Intake Total 562.262 ml Output Total 835 ml Balance -272.738 ml Free Water 60 ml IV Total 62.262 ml Tube Feeding 390 ml Other 50 ml Output Urine Total 835 ml Laboratory Tests 07/11/17 21:06: Arterial Blood pH 7.335L, Arterial Blood Partial Pressure CO2 45.8H, Arterial Blood Partial Pressure O2 355.6H, Arterial Blood HCO3 23.9, Arterial Blood Oxygen Saturation 99.6H, Arterial Blood Base Excess -2.0, Anthony Test Positive 07/12/17 03:40: White Blood Count 13.0H, Red Blood Count 2.75L, Hemoglobin 9.3L, Hematocrit 28.3L, Mean Corpuscular Volume 103H, Mean Corpuscular Hemoglobin 33.9H, Mean Corpuscular Hemoglobin Concent 33.0, Red Cell Distribution Width 13.2, Platelet Count 304, Mean Platelet Volume 6.1L, Neutrophils (%) (Auto) 61.8, Lymphocytes ( %) (Auto) 29.3, Monocytes (%) (Auto) 5.5, Eosinophils (%) (Auto) 2.8, Basophils (%) (Auto) 0.7, Prothrombin Time 10.4, Prothromb Time International Ratio 1.0, Activated Partial Thromboplast Time 28, Sodium Level 142, Potassium Level 4.1, Chloride Level 107, Carbon Dioxide Level 26, Anion Gap 9, Blood Urea Nitrogen 23H, Creatinine 0.9, Estimat Glomerular Filtration Rate > 60, Glucose Level 109H , Calcium Level 9.2, Phosphorus Level 5.4H, Magnesium Level 2.1, Total Bilirubin 0.1L, Aspartate Amino Transf (AST/SGOT) 11L, Alanine Aminotransferase (ALT/SGPT) 10L, Alkaline Phosphatase 70, Total Protein 6.8, Albumin 2.3L, Globulin 4.5, Albumin/Globulin Ratio 0.5L 07/12/17 09:00: Arterial Blood pH 7.380, Arterial Blood Partial Pressure CO2 45.4H, Arterial Blood Partial Pressure O2 76.0, Arterial Blood HCO3 26.7H, Arterial Blood Oxygen Saturation 94.2, Arterial Blood Base Excess 1.3, Anthony Test Positive Height (Feet): 5 Height (Inches): 11.00 Weight (Pounds): 130 Neck: supple Cardiovascular: normal rate Respiratory/Chest: lungs clear Abdomen: soft Michael Simon MD Jul 12, 2017 15:34
--- NOTE | 2017-07-12 15:34 | General Progress Note ---
Assessment/Plan Problem List: (1) History of pacemaker ICD Codes: Z95.0 - Presence of cardiac pacemaker SNOMED: 780651241 (2) Schizophrenia ICD Codes: F20.9 - Schizophrenia, unspecified SNOMED: 28915294 (3) Limited mobility ICD Codes: Z74.09 - Other reduced mobility SNOMED: 7566625 (4) Acute respiratory failure ICD Codes: J96.00 - Acute respiratory failure, unspecified whether with hypoxia or hypercapnia SNOMED: 95237688 (5) Sepsis ICD Codes: A41.9 - Sepsis, unspecified organism SNOMED: 88789526 (6) HCAP (healthcare-associated pneumonia) ICD Codes: J18.9 - Pneumonia, unspecified organism SNOMED: 405168014 Status: progressing Assessment/Plan afebrile vitals holding resp insuff psych pt reviewed chart and labs no wheezing Subjective ROS Limited/Unobtainable: Yes Constitutional: Reports: no symptoms Allergies: Coded Allergies: CHLORPROMAZINE (Verified Allergy, Unknown, 06/23/17) ERYTHROMYCIN BASE (Verified Allergy, Unknown, 06/23/17) Uncoded Allergies: TAPE (Allergy, Unknown, 06/23/17) Objective Last 24 Hour Vital Signs Date Time Temp Pulse Resp B/P (MAP) Pulse Ox O2 Delivery O2 Flow Rate FiO2 07/12/17 14:30 97/55 07/12/17 14:00 87 20 97/55 96 Venturi Mask 50 07/12/17 13:00 71 20 94/51 100 Venturi Mask 50 07/12/17 12:00 97.6 67 20 100/53 98 Venturi Mask 50 07/12/17 12:00 67 07/12/17 11:00 67 20 105/53 95 Venturi Mask 50 07/12/17 11:00 69 20 105/53 95 Venturi Mask 50 07/12/17 10:30 72 20 97/44 95 Venturi Mask 50 07/12/17 10:00 70 20 104/49 99 Venturi Mask 50 07/12/17 09:30 73 23 96/56 93 Venturi Mask 50 07/12/17 09:00 73 26 96/47 97 Venturi Mask 50 07/12/17 08:30 80 23 97/46 95 Venturi Mask 50 07/12/17 08:00 79 07/12/17 08:00 75 26 97/46 100 Venturi Mask 50 07/12/17 07:30 97.4 73 25 95/40 99 Venturi Mask 50 07/12/17 07:00 75 26 94/45 100 Venturi Mask 50 07/12/17 06:30 75 26 90/45 100 Venturi Mask 50 07/12/17 06:00 75 26 92/45 100 Venturi Mask 50 07/12/17 06:00 97/52 07/12/17 05:30 72 26 92/45 100 Venturi Mask 50 07/12/17 05:00 73 26 90/45 100 Venturi Mask 50 07/12/17 05:00 92/42 07/12/17 04:30 75 26 92/45 100 Venturi Mask 50 07/12/17 04:00 98.0 75 26 90/45 100 Venturi Mask 50 07/12/17 04:00 89/48 07/12/17 04:00 89 07/12/17 03:30 74 26 96/45 100 Venturi Mask 50 07/12/17 03:00 74 26 90/38 100 Venturi Mask 50 07/12/17 03:00 102/46 07/12/17 02:30 72 26 92/45 100 Venturi Mask 50 07/12/17 02:00 73 26 86/45 100 Venturi Mask 50 07/12/17 02:00 89/45 07/12/17 01:30 74 26 90/45 100 Venturi Mask 50 07/12/17 01:00 74 26 90/45 100 Venturi Mask 50 07/12/17 01:00 93/43 07/12/17 00:30 98.0 74 26 92/45 100 Venturi Mask 50 07/12/17 00:00 98.0 70 26 99/47 100 Venturi Mask 50 07/12/17 00:00 93/43 07/12/17 00:00 70 07/11/17 23:30 76 24 104/59 100 Venturi Mask 50 07/11/17 23:00 93/45 07/11/17 23:00 73 25 93/45 100 Venturi Mask 50 07/11/17 22:30 76 24 103/55 100 Venturi Mask 50 07/11/17 22:00 25 07/11/17 22:00 83 23 104/47 100 Venturi Mask 50 07/11/17 21:58 100/46 07/11/17 21:58 83/52 07/11/17 21:30 85 25 100/48 100 Venturi Mask 50 07/11/17 21:00 73 12 104/59 100 Venturi Mask 50 07/11/17 21:00 104/69 07/11/17 20:46 Non-Rebreather 15.0 100 07/11/17 20:45 99 Nasal Cannula 2.0 28 07/11/17 20:45 Nasal Cannula 2.0 28 07/11/17 20:30 79 12 93/48 100 Venturi Mask 100 07/11/17 20:00 25 07/11/17 20:00 73 12 93/50 100 Mechanical Ventilator 25 07/11/17 20:00 103/49 07/11/17 20:00 73 07/11/17 19:30 80 12 90/50 100 Mechanical Ventilator 25 07/11/17 19:02 60 16 25 07/11/17 19:00 65 12 93/52 100 Mechanical Ventilator 25 07/11/17 19:00 83/52 07/11/17 18:30 65 12 85/48 100 Mechanical Ventilator 25 07/11/17 18:00 66 16 99/50 98 Mechanical Ventilator 25 07/11/17 17:30 62 16 106/52 100 Mechanical Ventilator 25 07/11/17 17:26 81 16 25 07/11/17 17:00 60 16 94/55 100 Mechanical Ventilator 25 07/11/17 16:30 60 15 92/49 99 Mechanical Ventilator 25 07/11/17 16:00 98.2 60 15 92/49 99 Mechanical Ventilator 25 07/11/17 16:00 25 07/11/17 16:00 68 Intake and Output 07/12/17 07/13/17 19:00 07:00 Intake Total 562.262 ml Output Total 835 ml Balance -272.738 ml Free Water 60 ml IV Total 62.262 ml Tube Feeding 390 ml Other 50 ml Output Urine Total 835 ml Laboratory Tests 07/11/17 21:06: Arterial Blood pH 7.335L, Arterial Blood Partial Pressure CO2 45.8H, Arterial Blood Partial Pressure O2 355.6H, Arterial Blood HCO3 23.9, Arterial Blood Oxygen Saturation 99.6H, Arterial Blood Base Excess -2.0, Anthony Test Positive 07/12/17 03:40: White Blood Count 13.0H, Red Blood Count 2.75L, Hemoglobin 9.3L, Hematocrit 28.3L, Mean Corpuscular Volume 103H, Mean Corpuscular Hemoglobin 33.9H, Mean Corpuscular Hemoglobin Concent 33.0, Red Cell Distribution Width 13.2, Platelet Count 304, Mean Platelet Volume 6.1L, Neutrophils (%) (Auto) 61.8, Lymphocytes ( %) (Auto) 29.3, Monocytes (%) (Auto) 5.5, Eosinophils (%) (Auto) 2.8, Basophils (%) (Auto) 0.7, Prothrombin Time 10.4, Prothromb Time International Ratio 1.0, Activated Partial Thromboplast Time 28, Sodium Level 142, Potassium Level 4.1, Chloride Level 107, Carbon Dioxide Level 26, Anion Gap 9, Blood Urea Nitrogen 23H, Creatinine 0.9, Estimat Glomerular Filtration Rate > 60, Glucose Level 109H , Calcium Level 9.2, Phosphorus Level 5.4H, Magnesium Level 2.1, Total Bilirubin 0.1L, Aspartate Amino Transf (AST/SGOT) 11L, Alanine Aminotransferase (ALT/SGPT) 10L, Alkaline Phosphatase 70, Total Protein 6.8, Albumin 2.3L, Globulin 4.5, Albumin/Globulin Ratio 0.5L 07/12/17 09:00: Arterial Blood pH 7.380, Arterial Blood Partial Pressure CO2 45.4H, Arterial Blood Partial Pressure O2 76.0, Arterial Blood HCO3 26.7H, Arterial Blood Oxygen Saturation 94.2, Arterial Blood Base Excess 1.3, Anthony Test Positive Height (Feet): 5 Height (Inches): 11.00 Weight (Pounds): 130 Neck: supple Cardiovascular: normal rate Respiratory/Chest: lungs clear Abdomen: soft Michael Simon MD Jul 12, 2017 15:34
--- NOTE | 2017-07-12 15:34 | General Progress Note ---
Assessment/Plan Problem List: (1) History of pacemaker ICD Codes: Z95.0 - Presence of cardiac pacemaker SNOMED: 228677895 (2) Schizophrenia ICD Codes: F20.9 - Schizophrenia, unspecified SNOMED: 40041618 (3) Limited mobility ICD Codes: Z74.09 - Other reduced mobility SNOMED: 0179688 (4) Acute respiratory failure ICD Codes: J96.00 - Acute respiratory failure, unspecified whether with hypoxia or hypercapnia SNOMED: 36736020 (5) Sepsis ICD Codes: A41.9 - Sepsis, unspecified organism SNOMED: 92365270 (6) HCAP (healthcare-associated pneumonia) ICD Codes: J18.9 - Pneumonia, unspecified organism SNOMED: 011683913 Status: progressing Assessment/Plan afebrile vitals holding resp insuff psych pt reviewed chart and labs no wheezing Subjective ROS Limited/Unobtainable: Yes Constitutional: Reports: no symptoms Allergies: Coded Allergies: CHLORPROMAZINE (Verified Allergy, Unknown, 06/23/17) ERYTHROMYCIN BASE (Verified Allergy, Unknown, 06/23/17) Uncoded Allergies: TAPE (Allergy, Unknown, 06/23/17) Objective Last 24 Hour Vital Signs Date Time Temp Pulse Resp B/P (MAP) Pulse Ox O2 Delivery O2 Flow Rate FiO2 07/12/17 14:30 97/55 07/12/17 14:00 87 20 97/55 96 Venturi Mask 50 07/12/17 13:00 71 20 94/51 100 Venturi Mask 50 07/12/17 12:00 97.6 67 20 100/53 98 Venturi Mask 50 07/12/17 12:00 67 07/12/17 11:00 67 20 105/53 95 Venturi Mask 50 07/12/17 11:00 69 20 105/53 95 Venturi Mask 50 07/12/17 10:30 72 20 97/44 95 Venturi Mask 50 07/12/17 10:00 70 20 104/49 99 Venturi Mask 50 07/12/17 09:30 73 23 96/56 93 Venturi Mask 50 07/12/17 09:00 73 26 96/47 97 Venturi Mask 50 07/12/17 08:30 80 23 97/46 95 Venturi Mask 50 07/12/17 08:00 79 07/12/17 08:00 75 26 97/46 100 Venturi Mask 50 07/12/17 07:30 97.4 73 25 95/40 99 Venturi Mask 50 07/12/17 07:00 75 26 94/45 100 Venturi Mask 50 07/12/17 06:30 75 26 90/45 100 Venturi Mask 50 07/12/17 06:00 75 26 92/45 100 Venturi Mask 50 07/12/17 06:00 97/52 07/12/17 05:30 72 26 92/45 100 Venturi Mask 50 07/12/17 05:00 73 26 90/45 100 Venturi Mask 50 07/12/17 05:00 92/42 07/12/17 04:30 75 26 92/45 100 Venturi Mask 50 07/12/17 04:00 98.0 75 26 90/45 100 Venturi Mask 50 07/12/17 04:00 89/48 07/12/17 04:00 89 07/12/17 03:30 74 26 96/45 100 Venturi Mask 50 07/12/17 03:00 74 26 90/38 100 Venturi Mask 50 07/12/17 03:00 102/46 07/12/17 02:30 72 26 92/45 100 Venturi Mask 50 07/12/17 02:00 73 26 86/45 100 Venturi Mask 50 07/12/17 02:00 89/45 07/12/17 01:30 74 26 90/45 100 Venturi Mask 50 07/12/17 01:00 74 26 90/45 100 Venturi Mask 50 07/12/17 01:00 93/43 07/12/17 00:30 98.0 74 26 92/45 100 Venturi Mask 50 07/12/17 00:00 98.0 70 26 99/47 100 Venturi Mask 50 07/12/17 00:00 93/43 07/12/17 00:00 70 07/11/17 23:30 76 24 104/59 100 Venturi Mask 50 07/11/17 23:00 93/45 07/11/17 23:00 73 25 93/45 100 Venturi Mask 50 07/11/17 22:30 76 24 103/55 100 Venturi Mask 50 07/11/17 22:00 25 07/11/17 22:00 83 23 104/47 100 Venturi Mask 50 07/11/17 21:58 100/46 07/11/17 21:58 83/52 07/11/17 21:30 85 25 100/48 100 Venturi Mask 50 07/11/17 21:00 73 12 104/59 100 Venturi Mask 50 07/11/17 21:00 104/69 07/11/17 20:46 Non-Rebreather 15.0 100 07/11/17 20:45 99 Nasal Cannula 2.0 28 07/11/17 20:45 Nasal Cannula 2.0 28 07/11/17 20:30 79 12 93/48 100 Venturi Mask 100 07/11/17 20:00 25 07/11/17 20:00 73 12 93/50 100 Mechanical Ventilator 25 07/11/17 20:00 103/49 07/11/17 20:00 73 07/11/17 19:30 80 12 90/50 100 Mechanical Ventilator 25 07/11/17 19:02 60 16 25 07/11/17 19:00 65 12 93/52 100 Mechanical Ventilator 25 07/11/17 19:00 83/52 07/11/17 18:30 65 12 85/48 100 Mechanical Ventilator 25 07/11/17 18:00 66 16 99/50 98 Mechanical Ventilator 25 07/11/17 17:30 62 16 106/52 100 Mechanical Ventilator 25 07/11/17 17:26 81 16 25 07/11/17 17:00 60 16 94/55 100 Mechanical Ventilator 25 07/11/17 16:30 60 15 92/49 99 Mechanical Ventilator 25 07/11/17 16:00 98.2 60 15 92/49 99 Mechanical Ventilator 25 07/11/17 16:00 25 07/11/17 16:00 68 Intake and Output 07/12/17 07/13/17 19:00 07:00 Intake Total 562.262 ml Output Total 835 ml Balance -272.738 ml Free Water 60 ml IV Total 62.262 ml Tube Feeding 390 ml Other 50 ml Output Urine Total 835 ml Laboratory Tests 07/11/17 21:06: Arterial Blood pH 7.335L, Arterial Blood Partial Pressure CO2 45.8H, Arterial Blood Partial Pressure O2 355.6H, Arterial Blood HCO3 23.9, Arterial Blood Oxygen Saturation 99.6H, Arterial Blood Base Excess -2.0, Anthony Test Positive 07/12/17 03:40: White Blood Count 13.0H, Red Blood Count 2.75L, Hemoglobin 9.3L, Hematocrit 28.3L, Mean Corpuscular Volume 103H, Mean Corpuscular Hemoglobin 33.9H, Mean Corpuscular Hemoglobin Concent 33.0, Red Cell Distribution Width 13.2, Platelet Count 304, Mean Platelet Volume 6.1L, Neutrophils (%) (Auto) 61.8, Lymphocytes ( %) (Auto) 29.3, Monocytes (%) (Auto) 5.5, Eosinophils (%) (Auto) 2.8, Basophils (%) (Auto) 0.7, Prothrombin Time 10.4, Prothromb Time International Ratio 1.0, Activated Partial Thromboplast Time 28, Sodium Level 142, Potassium Level 4.1, Chloride Level 107, Carbon Dioxide Level 26, Anion Gap 9, Blood Urea Nitrogen 23H, Creatinine 0.9, Estimat Glomerular Filtration Rate > 60, Glucose Level 109H , Calcium Level 9.2, Phosphorus Level 5.4H, Magnesium Level 2.1, Total Bilirubin 0.1L, Aspartate Amino Transf (AST/SGOT) 11L, Alanine Aminotransferase (ALT/SGPT) 10L, Alkaline Phosphatase 70, Total Protein 6.8, Albumin 2.3L, Globulin 4.5, Albumin/Globulin Ratio 0.5L 07/12/17 09:00: Arterial Blood pH 7.380, Arterial Blood Partial Pressure CO2 45.4H, Arterial Blood Partial Pressure O2 76.0, Arterial Blood HCO3 26.7H, Arterial Blood Oxygen Saturation 94.2, Arterial Blood Base Excess 1.3, Anthony Test Positive Height (Feet): 5 Height (Inches): 11.00 Weight (Pounds): 130 Neck: supple Cardiovascular: normal rate Respiratory/Chest: lungs clear Abdomen: soft Michael Simon MD Jul 12, 2017 15:34
--- NOTE | 2017-07-12 15:55 | Infectious Diseases Prog Note ---
Assessment/Plan Problems: (1) HCAP (healthcare-associated pneumonia) Assessment & Plan: due to pseudomonas aeruginosa and MRSA, S/P zosyn, and vancomycin for two weeks total , repeated CXR showed improvement in the left lung aeration . 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 S/P Bronchoscopy X2 and antibiotics for two weeks , monitor ABG, and CXR, taper steroids, pulmonary is following (3) Sepsis Assessment & Plan: due to the above, resolved, s/p antibiotics for two weeks . (4) Collapse of left lung Assessment & Plan: due to mucous plug, resolved, S/P bronchoscopy x2 , pulmonary is following Subjective ROS Limited/Unobtainable: Yes Allergies: Coded Allergies: CHLORPROMAZINE (Verified Allergy, Unknown, 06/23/17) ERYTHROMYCIN BASE (Verified Allergy, Unknown, 06/23/17) Uncoded Allergies: TAPE (Allergy, Unknown, 06/23/17) Subjective he self extubated himself, on high flow oxygen , seems comfortable, alert, follows commands , not in distress , no fever , no diarrhea Objective Vital Signs Last 24 Hour Vital Signs Date Time Temp Pulse Resp B/P (MAP) Pulse Ox O2 Delivery O2 Flow Rate FiO2 07/12/17 15:00 95 21 104/63 94 Venturi Mask 50 07/12/17 14:30 97/55 07/12/17 14:00 87 20 97/55 96 Venturi Mask 50 07/12/17 13:00 71 20 94/51 100 Venturi Mask 50 07/12/17 12:00 97.6 67 20 100/53 98 Venturi Mask 50 07/12/17 12:00 67 07/12/17 11:00 67 20 105/53 95 Venturi Mask 50 07/12/17 11:00 69 20 105/53 95 Venturi Mask 50 07/12/17 10:30 72 20 97/44 95 Venturi Mask 50 07/12/17 10:00 70 20 104/49 99 Venturi Mask 50 07/12/17 09:30 73 23 96/56 93 Venturi Mask 50 07/12/17 09:00 73 26 96/47 97 Venturi Mask 50 07/12/17 08:30 80 23 97/46 95 Venturi Mask 50 07/12/17 08:00 79 07/12/17 08:00 75 26 97/46 100 Venturi Mask 50 07/12/17 07:30 97.4 73 25 95/40 99 Venturi Mask 50 07/12/17 07:00 75 26 94/45 100 Venturi Mask 50 07/12/17 06:30 75 26 90/45 100 Venturi Mask 50 07/12/17 06:00 75 26 92/45 100 Venturi Mask 50 07/12/17 06:00 97/52 07/12/17 05:30 72 26 92/45 100 Venturi Mask 50 07/12/17 05:00 73 26 90/45 100 Venturi Mask 50 07/12/17 05:00 92/42 07/12/17 04:30 75 26 92/45 100 Venturi Mask 50 07/12/17 04:00 98.0 75 26 90/45 100 Venturi Mask 50 07/12/17 04:00 89/48 07/12/17 04:00 89 07/12/17 03:30 74 26 96/45 100 Venturi Mask 50 07/12/17 03:00 74 26 90/38 100 Venturi Mask 50 07/12/17 03:00 102/46 07/12/17 02:30 72 26 92/45 100 Venturi Mask 50 07/12/17 02:00 73 26 86/45 100 Venturi Mask 50 07/12/17 02:00 89/45 07/12/17 01:30 74 26 90/45 100 Venturi Mask 50 07/12/17 01:00 74 26 90/45 100 Venturi Mask 50 07/12/17 01:00 93/43 07/12/17 00:30 98.0 74 26 92/45 100 Venturi Mask 50 07/12/17 00:00 98.0 70 26 99/47 100 Venturi Mask 50 07/12/17 00:00 93/43 07/12/17 00:00 70 07/11/17 23:30 76 24 104/59 100 Venturi Mask 50 07/11/17 23:00 93/45 07/11/17 23:00 73 25 93/45 100 Venturi Mask 50 07/11/17 22:30 76 24 103/55 100 Venturi Mask 50 07/11/17 22:00 25 07/11/17 22:00 83 23 104/47 100 Venturi Mask 50 07/11/17 21:58 100/46 07/11/17 21:58 83/52 07/11/17 21:30 85 25 100/48 100 Venturi Mask 50 07/11/17 21:00 73 12 104/59 100 Venturi Mask 50 07/11/17 21:00 104/69 07/11/17 20:46 Non-Rebreather 15.0 100 07/11/17 20:45 99 Nasal Cannula 2.0 28 07/11/17 20:45 Nasal Cannula 2.0 28 07/11/17 20:30 79 12 93/48 100 Venturi Mask 100 07/11/17 20:00 25 07/11/17 20:00 73 12 93/50 100 Mechanical Ventilator 25 07/11/17 20:00 103/49 07/11/17 20:00 73 07/11/17 19:30 80 12 90/50 100 Mechanical Ventilator 25 07/11/17 19:02 60 16 25 07/11/17 19:00 65 12 93/52 100 Mechanical Ventilator 25 07/11/17 19:00 83/52 07/11/17 18:30 65 12 85/48 100 Mechanical Ventilator 25 07/11/17 18:00 66 16 99/50 98 Mechanical Ventilator 25 07/11/17 17:30 62 16 106/52 100 Mechanical Ventilator 25 07/11/17 17:26 81 16 25 07/11/17 17:00 60 16 94/55 100 Mechanical Ventilator 25 07/11/17 16:30 60 15 92/49 99 Mechanical Ventilator 25 07/11/17 16:00 98.2 60 15 92/49 99 Mechanical Ventilator 25 07/11/17 16:00 25 07/11/17 16:00 68 Height (Feet): 5 Height (Inches): 11.00 Weight (Pounds): 130 General Appearance: WD/WN, no acute distress HEENT: normocephalic, atraumatic, anicteric, mucous membranes moist, PERRL, supple, no JVD Respiratory/Chest: chest wall non-tender, no respiratory distress, no accessory muscle use, decreased breath sounds, crackles/rales Cardiovascular: normal peripheral pulses, normal rate, regular rhythm, no gallop/murmur, no JVD Abdomen: normal bowel sounds, soft, non tender, no organomegaly, non distended , no mass, no scars Extremities: no cyanosis, no clubbing Skin: no rash, no lesions, ulcers Neurologic/Psychiatric: alert, responsive Microbiology Date/Time Source Procedure Growth Status 07/09/17 20:30 Blood Blood Culture - Preliminary NO GROWTH AFTER 48 HOURS Resulted 07/09/17 20:15 Blood Blood Culture - Preliminary NO GROWTH AFTER 48 HOURS Resulted 07/10/17 16:30 Indwelling Cath Urine Culture - Preliminary Gram Negative Bacillus 1 YEAST Resulted Laboratory Tests Test 07/11/17 21:06 07/12/17 03:40 07/12/17 09:00 Arterial Blood pH 7.335 (7.350-7.450) 7.380 (7.350-7.450) Arterial Blood Partial Pressure CO2 45.8 mmHg (35.0-45.0) H 45.4 mmHg (35.0-45.0) H Arterial Blood Partial Pressure O2 355.6 mmHg (75.0-100.0) H 76.0 mmHg (75.0-100.0) Arterial Blood HCO3 23.9 mmol/L (22.0-26.0) 26.7 mmol/L (22.0-26.0) H Arterial Blood Oxygen Saturation 99.6 % (92.0-98.0) H 94.2 % (92.0-98.0) Arterial Blood Base Excess -2.0 1.3 Anthony Test Positive Positive White Blood Count 13.0 K/UL (4.8-10.8) H Red Blood Count 2.75 M/UL (4.70-6.10) L Hemoglobin 9.3 G/DL (14.2-18.0) L Hematocrit 28.3 % (42.0-52.0) L Mean Corpuscular Volume 103 FL (80-99) H Mean Corpuscular Hemoglobin 33.9 PG (27.0-31.0) H Mean Corpuscular Hemoglobin Concent 33.0 G/DL (32.0-36.0) Red Cell Distribution Width 13.2 % (11.6-14.8) Platelet Count 304 K/UL (150-450) Mean Platelet Volume 6.1 FL (6.5-10.1) L Neutrophils (%) (Auto) 61.8 % (45.0-75.0) Lymphocytes (%) (Auto) 29.3 % (20.0-45.0) Monocytes (%) (Auto) 5.5 % (1.0-10.0) Eosinophils (%) (Auto) 2.8 % (0.0-3.0) Basophils (%) (Auto) 0.7 % (0.0-2.0) Prothrombin Time 10.4 SEC (9.30-11.50) Prothromb Time International Ratio 1.0 (0.9-1.1) Activated Partial Thromboplast Time 28 SEC (23-33) Sodium Level 142 MMOL/L (136-145) Potassium Level 4.1 MMOL/L (3.5-5.1) Chloride Level 107 MMOL/L (98-107) Carbon Dioxide Level 26 MMOL/L (21-32) Anion Gap 9 mmol/L (5-15) Blood Urea Nitrogen 23 mg/dL (7-18) H Creatinine 0.9 MG/DL (0.55-1.30) Estimat Glomerular Filtration Rate > 60 mL/min (>60) Glucose Level 109 MG/DL (74-106) H Calcium Level 9.2 MG/DL (8.5-10.1) Phosphorus Level 5.4 MG/DL (2.5-4.9) H Magnesium Level 2.1 MG/DL (1.8-2.4) Total Bilirubin 0.1 MG/DL (0.2-1.0) L Aspartate Amino Transf (AST/SGOT) 11 U/L (15-37) L Alanine Aminotransferase (ALT/SGPT) 10 U/L (12-78) L Alkaline Phosphatase 70 U/L (46-116) Total Protein 6.8 G/DL (6.4-8.2) Albumin 2.3 G/DL (3.4-5.0) L Globulin 4.5 g/dL Albumin/Globulin Ratio 0.5 (1.0-2.7) L Current Medications Medications (Trade) Dose Ordered Sig/Karen Route PRN Reason Start Time Stop Time Status Last Admin Dose Admin Carbamazepine (TEGretol) 200 mg FOUR TIMES A DAY ORAL 07/02/17 09:00 07/23/17 12:59 07/12/17 13:00 Dextrose (Dextrose 50%) STAT PRN IV Hypoglycemia 07/02/17 12:00 07/25/17 11:59 Docusate Sodium (Colace) 100 mg DAILY ORAL 07/02/17 09:00 07/29/17 08:59 07/12/17 09:18 Dopamine HCl/ Dextrose 250 ml @ 0 mls/hr Q24H IV 07/03/17 15:00 08/02/17 14:59 07/11/17 15:17 Dopamine HCl/ Dextrose 250 ml @ 0 mls/hr Q24H IV 07/10/17 21:30 08/09/17 21:29 07/11/17 21:58 Heparin Sodium (Porcine) (Heparin 5000 units/ml) 5,000 units EVERY 12 HOURS SUBQ 07/02/17 09:00 07/23/17 20:59 07/12/17 09:20 Levetiracetam (Keppra) 500 mg Q12HR ORAL 07/02/17 09:00 07/23/17 20:59 07/12/17 09:19 Lorazepam (Ativan 2mg/ml 1ml) 2 mg Q4H PRN IV For Anxiety 07/08/17 10:15 07/15/17 10:14 Morphine Sulfate (Morphine Sulfate) 4 mg Q4H PRN IVP Severe Pain (Pain Scale 7-10) 07/08/17 18:00 07/15/17 13:59 Nitroglycerin (Ntg) 0.4 mg Q5M X 3 DOSES PRN SL Prn Chest Pain 07/01/17 23:45 07/23/17 13:29 Olanzapine (ZyPREXA) 20 mg BEDTIME ORAL 07/02/17 21:00 07/24/17 08:59 07/11/17 20:51 Ondansetron HCl (Zofran) 4 mg Q6H PRN IVP Nausea & Vomiting 07/02/17 00:00 07/23/17 11:59 Pantoprazole (Protonix) 40 mg DAILY IV 07/02/17 09:00 08/01/17 08:59 07/12/17 09:21 Theophylline (Dane-Dur) 100 mg EVERY 12 HOURS ORAL 07/02/17 09:00 07/23/17 20:59 07/12/17 09:18 Dafne Orourke M.D. Jul 12, 2017 15:55
[2017-07-12] MEDS ORDERED: Morphine Sulfate 4mg/ml Inj IVP PRN (17:45)
--- NOTE | 2017-07-12 18:15 | Cardiology Progress Note ---
Assessment/Plan Assessment/Plan 1. Acute respiratory failure, s/p bronchoscopy, left lung collapse resolved, currently on venturi mask. 2. Septic shock, resolved. 3. Sinus tachycardia, resolved, possibly due to hypoxia/sepsis/leukocytosis. 4. Normal LV systolic function with LVEF at 60-65%. 5. Dual chamber pacemaker implantation, currently intrinsic atrial and ventricular activity. Subjective Subjective On the venturi mask. Sinus rhythm at 78. Objective Last 24 Hour Vital Signs Date Time Temp Pulse Resp B/P (MAP) Pulse Ox O2 Delivery O2 Flow Rate FiO2 07/12/17 17:00 78 21 111/57 100 Venturi Mask 50 07/12/17 16:00 72 07/12/17 16:00 98.6 74 21 99/54 96 Venturi Mask 50 07/12/17 15:00 95 21 104/63 94 Venturi Mask 50 07/12/17 14:30 97/55 07/12/17 14:00 87 20 97/55 96 Venturi Mask 50 07/12/17 13:00 71 20 94/51 100 Venturi Mask 50 07/12/17 12:00 97.6 67 20 100/53 98 Venturi Mask 50 07/12/17 12:00 67 07/12/17 11:00 67 20 105/53 95 Venturi Mask 50 07/12/17 11:00 69 20 105/53 95 Venturi Mask 50 07/12/17 10:30 72 20 97/44 95 Venturi Mask 50 07/12/17 10:00 70 20 104/49 99 Venturi Mask 50 07/12/17 09:30 73 23 96/56 93 Venturi Mask 50 07/12/17 09:00 73 26 96/47 97 Venturi Mask 50 07/12/17 08:30 80 23 97/46 95 Venturi Mask 50 07/12/17 08:00 79 07/12/17 08:00 75 26 97/46 100 Venturi Mask 50 07/12/17 07:30 97.4 73 25 95/40 99 Venturi Mask 50 07/12/17 07:00 75 26 94/45 100 Venturi Mask 50 07/12/17 06:30 75 26 90/45 100 Venturi Mask 50 07/12/17 06:00 75 26 92/45 100 Venturi Mask 50 07/12/17 06:00 97/52 07/12/17 05:30 72 26 92/45 100 Venturi Mask 50 07/12/17 05:00 73 26 90/45 100 Venturi Mask 50 07/12/17 05:00 92/42 07/12/17 04:30 75 26 92/45 100 Venturi Mask 50 07/12/17 04:00 98.0 75 26 90/45 100 Venturi Mask 50 07/12/17 04:00 89/48 07/12/17 04:00 89 07/12/17 03:30 74 26 96/45 100 Venturi Mask 50 07/12/17 03:00 74 26 90/38 100 Venturi Mask 50 07/12/17 03:00 102/46 07/12/17 02:30 72 26 92/45 100 Venturi Mask 50 07/12/17 02:00 73 26 86/45 100 Venturi Mask 50 07/12/17 02:00 89/45 07/12/17 01:30 74 26 90/45 100 Venturi Mask 50 07/12/17 01:00 74 26 90/45 100 Venturi Mask 50 07/12/17 01:00 93/43 07/12/17 00:30 98.0 74 26 92/45 100 Venturi Mask 50 07/12/17 00:00 98.0 70 26 99/47 100 Venturi Mask 50 07/12/17 00:00 93/43 07/12/17 00:00 70 07/11/17 23:30 76 24 104/59 100 Venturi Mask 50 07/11/17 23:00 93/45 07/11/17 23:00 73 25 93/45 100 Venturi Mask 50 07/11/17 22:30 76 24 103/55 100 Venturi Mask 50 07/11/17 22:00 25 07/11/17 22:00 83 23 104/47 100 Venturi Mask 50 07/11/17 21:58 100/46 07/11/17 21:58 83/52 07/11/17 21:30 85 25 100/48 100 Venturi Mask 50 07/11/17 21:00 73 12 104/59 100 Venturi Mask 50 07/11/17 21:00 104/69 07/11/17 20:46 Non-Rebreather 15.0 100 07/11/17 20:45 99 Nasal Cannula 2.0 28 07/11/17 20:45 Nasal Cannula 2.0 28 07/11/17 20:30 79 12 93/48 100 Venturi Mask 100 07/11/17 20:00 25 07/11/17 20:00 73 12 93/50 100 Mechanical Ventilator 25 07/11/17 20:00 103/49 07/11/17 20:00 73 07/11/17 19:30 80 12 90/50 100 Mechanical Ventilator 25 07/11/17 19:02 60 16 25 07/11/17 19:00 65 12 93/52 100 Mechanical Ventilator 25 07/11/17 19:00 83/52 07/11/17 18:30 65 12 85/48 100 Mechanical Ventilator 25 Intake and Output 07/12/17 07/13/17 19:00 07:00 Intake Total 798.770 ml Output Total 1075 ml Balance -276.230 ml Free Water 60 ml IV Total 103.770 ml Tube Feeding 585 ml Other 50 ml Output Urine Total 1075 ml 2D Echo: LVEF 60-65%, mild TR with RVSP at 33 mmHg Laboratory Tests Test 07/11/17 21:06 07/12/17 03:40 07/12/17 09:00 Arterial Blood pH 7.335 (7.350-7.450) 7.380 (7.350-7.450) Arterial Blood Partial Pressure CO2 45.8 mmHg (35.0-45.0) H 45.4 mmHg (35.0-45.0) H Arterial Blood Partial Pressure O2 355.6 mmHg (75.0-100.0) H 76.0 mmHg (75.0-100.0) Arterial Blood HCO3 23.9 mmol/L (22.0-26.0) 26.7 mmol/L (22.0-26.0) H Arterial Blood Oxygen Saturation 99.6 % (92.0-98.0) H 94.2 % (92.0-98.0) Arterial Blood Base Excess -2.0 1.3 Anthony Test Positive Positive White Blood Count 13.0 K/UL (4.8-10.8) H Red Blood Count 2.75 M/UL (4.70-6.10) L Hemoglobin 9.3 G/DL (14.2-18.0) L Hematocrit 28.3 % (42.0-52.0) L Mean Corpuscular Volume 103 FL (80-99) H Mean Corpuscular Hemoglobin 33.9 PG (27.0-31.0) H Mean Corpuscular Hemoglobin Concent 33.0 G/DL (32.0-36.0) Red Cell Distribution Width 13.2 % (11.6-14.8) Platelet Count 304 K/UL (150-450) Mean Platelet Volume 6.1 FL (6.5-10.1) L Neutrophils (%) (Auto) 61.8 % (45.0-75.0) Lymphocytes (%) (Auto) 29.3 % (20.0-45.0) Monocytes (%) (Auto) 5.5 % (1.0-10.0) Eosinophils (%) (Auto) 2.8 % (0.0-3.0) Basophils (%) (Auto) 0.7 % (0.0-2.0) Prothrombin Time 10.4 SEC (9.30-11.50) Prothromb Time International Ratio 1.0 (0.9-1.1) Activated Partial Thromboplast Time 28 SEC (23-33) Sodium Level 142 MMOL/L (136-145) Potassium Level 4.1 MMOL/L (3.5-5.1) Chloride Level 107 MMOL/L (98-107) Carbon Dioxide Level 26 MMOL/L (21-32) Anion Gap 9 mmol/L (5-15) Blood Urea Nitrogen 23 mg/dL (7-18) H Creatinine 0.9 MG/DL (0.55-1.30) Estimat Glomerular Filtration Rate > 60 mL/min (>60) Glucose Level 109 MG/DL (74-106) H Calcium Level 9.2 MG/DL (8.5-10.1) Phosphorus Level 5.4 MG/DL (2.5-4.9) H Magnesium Level 2.1 MG/DL (1.8-2.4) Total Bilirubin 0.1 MG/DL (0.2-1.0) L Aspartate Amino Transf (AST/SGOT) 11 U/L (15-37) L Alanine Aminotransferase (ALT/SGPT) 10 U/L (12-78) L Alkaline Phosphatase 70 U/L (46-116) Total Protein 6.8 G/DL (6.4-8.2) Albumin 2.3 G/DL (3.4-5.0) L Globulin 4.5 g/dL Albumin/Globulin Ratio 0.5 (1.0-2.7) L Microbiology Date/Time Source Procedure Growth Status 07/09/17 20:30 Blood Blood Culture - Preliminary NO GROWTH AFTER 48 HOURS Resulted 07/09/17 20:15 Blood Blood Culture - Preliminary NO GROWTH AFTER 48 HOURS Resulted 07/10/17 16:30 Indwelling Cath Urine Culture - Preliminary Gram Negative Bacillus 1 YEAST Resulted Objective HEENT: Atraumatic and normocephalic. ENT, pupils are equal, round, and reactive to light and accommodation. Pale conjunctiva, intubated. NECK: JVP cannot be assessed. No carotid bruit. Carotid upstrokes 2+ bilaterally. LUNGS: Diminished BS both bases. CVS: Normal S1, S2. no murmurs, gallops or rubs. PMI is at fourth intercostal space in the midclavicular line. ABDOMEN: Soft, nontender, and nondistended. No hepatosplenomegaly. Positive bowel sounds. EXTREMITIES: No evidence of edema, clubbing, or cyanosis. CALLUM BARON Jul 12, 2017 18:15
[2017-07-13] VITALS (29 sets, daily range): BP systolic 71–131; BP diastolic 46–70
[2017-07-13 06:28] LABS: BASOPHILS % (AUTO) 1.1 % (0.0-2.0); EOSINOPHILS % (AUTO) 4.6 % (0.0-3.0); HEMATOCRIT 29.6 % (42.0-52.0); HEMOGLOBIN 10.2 G/DL (14.2-18.0); LYMPHOCYTES % (AUTO) 29.1 % (20.0-45.0); MEAN CORPUSCULAR VOLUME 102 FL (80-99); MONOCYTES % (AUTO) 4.4 % (1.0-10.0); NEUTROPHILS % (AUTO) 60.8 % (45.0-75.0); PLATELET COUNT 310 K/UL (150-450); RED BLOOD COUNT 2.89 M/UL (4.70-6.10); RED CELL DISTRIBUTION WIDTH 13.1 % (11.6-14.8); WHITE BLOOD COUNT 9.3 K/UL (4.8-10.8)
[2017-07-13 08:12] LABS: ALANINE AMINOTRANSFERASE 14 U/L (12-78); ALBUMIN 2.4 G/DL (3.4-5.0); ALBUMIN/GLOBULIN RATIO 0.5 (1.0-2.7); ALKALINE PHOSPHATASE 66 U/L (46-116); ANION GAP 9 mmol/L (5-15); ASPARTATE AMINO TRANSFERASE 18 U/L (15-37); BILIRUBIN,TOTAL 0.3 MG/DL (0.2-1.0); BLOOD UREA NITROGEN 23 mg/dL (7-18); CALCIUM 9.6 MG/DL (8.5-10.1); CARBON DIOXIDE 27 MMOL/L (21-32); CHLORIDE 104 MMOL/L (98-107); CREATININE 0.9 MG/DL (0.55-1.30); PHOSPHORUS 4.9 MG/DL (2.5-4.9); POTASSIUM 4.3 MMOL/L (3.5-5.1); SODIUM 140 MMOL/L (136-145)
--- NOTE | 2017-07-13 08:16 | Pulmonolgy Critical Care Note ---
Critical Care - Asmt/Plan Problems: (1) Septic shock (2) Acute encephalopathy (3) Acute respiratory failure (4) Collapse of left lung (5) UTI (urinary tract infection) (6) Schizophrenia (7) History of pacemaker (8) Fever Respiratory: monitor respiratory rate, adjust FIO2, CXR, other - might need intubation Cardiac: continue pressors, continue to monitor HR/BP Renal: F/U I&O, keep IV fluid Infectious Disease: check cultures Gastrointestinal: continue feedings/current rate Endocrine: monitor blood sugar, check HgA1C, continue sliding scale insulin Hematologic: monitor H/H, transfuse if hgb<8.5 Neurologic: PRN Ativan, PRN Morphine, keep patient comfortable Prophylaxis: Protonix Disposition: keep in ICU 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, 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 with: nurses, consultants, manager of case managementmanager mail - Objective Last 24 Hour Vital Signs Date Time Temp Pulse Resp B/P (MAP) Pulse Ox O2 Delivery O2 Flow Rate FiO2 07/13/17 08:00 97.8 79 20 90/49 98 Bi-pap 30 07/13/17 07:32 78 22 93 Facial 40 07/13/17 07:31 Bi-pap 40 07/13/17 07:30 93 Bi-pap 40 07/13/17 07:00 83 24 91/50 96 Bi-pap 30 07/13/17 06:00 80 24 89/50 96 Bi-pap 30 07/13/17 05:39 82 25 94 Facial 30 07/13/17 05:00 98.1 76 20 88/49 98 Bi-pap 40 07/13/17 04:00 75 07/13/17 04:00 77 24 84/48 96 Bi-pap 40 07/13/17 03:55 74 24 98 Facial 40 07/13/17 03:00 78 23 85/50 95 Bi-pap 40 07/13/17 02:00 78 20 100/53 96 Bi-pap 40 07/13/17 01:30 71 25 98 Facial 40 07/13/17 01:00 78 20 86/46 96 Bi-pap 40 07/13/17 00:00 98.1 82 20 90/47 98 Venturi Mask 50 07/13/17 00:00 78 07/12/17 23:00 74 20 85/43 95 Bi-pap 40 07/12/17 23:00 76 20 85/43 95 Bi-pap 40 07/12/17 22:34 76 25 97 Facial 40 07/12/17 22:30 77 20 83/46 97 Bi-pap 40 07/12/17 22:00 83 20 90/47 95 Bi-pap 40 07/12/17 21:57 83/49 07/12/17 21:30 75 20 87/49 100 Bi-pap 40 07/12/17 21:12 78 24 100 Facial 40 07/12/17 21:00 95 20 106/36 100 Venturi Mask 50 07/12/17 20:30 76 20 89/52 100 Venturi Mask 50 07/12/17 20:02 100 Nasal Cannula 2.0 07/12/17 20:02 Nasal Cannula 2.0 28 07/12/17 20:00 66 07/12/17 20:00 98.5 79 20 87/48 98 Venturi Mask 50 07/12/17 19:00 72 20 91/52 100 Venturi Mask 50 07/12/17 18:30 80 26 112/60 100 Venturi Mask 50 07/12/17 17:30 79 30 116/67 100 Venturi Mask 50 07/12/17 17:00 78 21 111/57 100 Venturi Mask 50 07/12/17 16:30 85 21 121/66 94 Venturi Mask 50 07/12/17 16:00 72 07/12/17 16:00 98.6 74 21 99/54 96 Venturi Mask 50 07/12/17 15:30 94 21 108/57 94 Venturi Mask 50 07/12/17 15:00 95 21 104/63 94 Venturi Mask 50 07/12/17 14:30 80 22 95/51 98 Venturi Mask 50 07/12/17 14:30 97/55 07/12/17 14:00 87 20 97/55 96 Venturi Mask 50 07/12/17 13:30 75 20 97/54 100 Venturi Mask 50 07/12/17 13:00 71 20 94/51 100 Venturi Mask 50 07/12/17 12:30 67 20 94/51 99 Venturi Mask 50 07/12/17 12:00 97.6 67 20 100/53 98 Venturi Mask 50 07/12/17 12:00 67 07/12/17 11:00 67 20 105/53 95 Venturi Mask 50 07/12/17 11:00 69 20 105/53 95 Venturi Mask 50 07/12/17 10:30 72 20 97/44 95 Venturi Mask 50 07/12/17 10:00 70 20 104/49 99 Venturi Mask 50 07/12/17 09:30 73 23 96/56 93 Venturi Mask 50 07/12/17 09:00 73 26 96/47 97 Venturi Mask 50 07/12/17 08:30 80 23 97/46 95 Venturi Mask 50 Status: awake Condition: critical, improving HEENT: atraumatic, normocephalic Lungs: clear Heart: HR/BP stable, HR/BP unstable Abdomen: soft, non-tender Extremities: no C/C/E, edema Micro: Microbiology Date/Time Source Procedure Growth Status 07/10/17 16:30 Indwelling Cath Urine Culture - Preliminary Gram Negative Bacillus 1 YEAST Resulted Critical Care - Subjective ROS Limited/Unobtainable: No ICU Day: 10 Interval Events: developed shortness of breath and respiratory failure last night and was put on BIPAP FI02: 30 Vent Support Breath Rate: 16 Vent Support Mode: AC Vent Tidal Volume: 600 Sputum Amount: None PIP: 26 Tube Feeding Amount: 65 I&O: Intake and Output 07/13/17 07/14/17 19:00 07:00 Intake Total 65 ml Output Total 60 ml Balance 5 ml Tube Feeding 65 ml Output Urine Total 60 ml CXR: pending ET-Tube: 8.0 ET Position: 24 Labs: Laboratory Tests Test 07/12/17 09:00 07/13/17 05:35 Arterial Blood pH 7.380 (7.350-7.450) Arterial Blood Partial Pressure CO2 45.4 mmHg (35.0-45.0) H Arterial Blood Partial Pressure O2 76.0 mmHg (75.0-100.0) Arterial Blood HCO3 26.7 mmol/L (22.0-26.0) H Arterial Blood Oxygen Saturation 94.2 % (92.0-98.0) Arterial Blood Base Excess 1.3 Anthony Test Positive White Blood Count 9.3 K/UL (4.8-10.8) Red Blood Count 2.89 M/UL (4.70-6.10) L Hemoglobin 10.2 G/DL (14.2-18.0) L Hematocrit 29.6 % (42.0-52.0) L Mean Corpuscular Volume 102 FL (80-99) H Mean Corpuscular Hemoglobin 35.4 PG (27.0-31.0) H Mean Corpuscular Hemoglobin Concent 34.6 G/DL (32.0-36.0) Red Cell Distribution Width 13.1 % (11.6-14.8) Platelet Count 310 K/UL (150-450) Mean Platelet Volume 5.4 FL (6.5-10.1) L Neutrophils (%) (Auto) 60.8 % (45.0-75.0) Lymphocytes (%) (Auto) 29.1 % (20.0-45.0) Monocytes (%) (Auto) 4.4 % (1.0-10.0) Eosinophils (%) (Auto) 4.6 % (0.0-3.0) H Basophils (%) (Auto) 1.1 % (0.0-2.0) Sodium Level Pending Potassium Level Pending Chloride Level Pending Carbon Dioxide Level Pending Blood Urea Nitrogen Pending Creatinine Pending Estimat Glomerular Filtration Rate Pending Glucose Level Pending Calcium Level Pending Phosphorus Level Pending Magnesium Level Pending Total Bilirubin Pending Aspartate Amino Transf (AST/SGOT) Pending Alanine Aminotransferase (ALT/SGPT) Pending Alkaline Phosphatase Pending Total Protein Pending Albumin Pending Globulin Pending GWEN MARTE Jul 13, 2017 08:16
[2017-07-13] MEDS ORDERED: Morphine Sulfate 4mg/ml Inj IVP PRN (08:45)
--- NOTE | 2017-07-13 08:49 | General Progress Note ---
Progress Note Progress Note Procedure note Procedure: endotracheal intubation Indication: respiratory failure Anesthesia: Versed 10 mg Iv Vocal cord were visualized, an ET tube of size 8 was introduced through vocal cords. large amount of secretions were suctioned. GWEN MARTE Jul 13, 2017 08:49
[2017-07-13] MEDS: Miralax 17gm pkt ORAL PRN (09:25)
[2017-07-13] MEDS: Docusate 100mg cap ORAL SCH (09:25)
[2017-07-13] MEDS: carBAMazepine 200mg tab ORAL SCH ×4 (09:25→21:08)
[2017-07-13] MEDS: Heparin 5000 units/ml inj SUBQ SCH ×2 (09:26→21:19)
[2017-07-13] MEDS: Theophylline ER 100mg ORAL SCH ×2 (09:26→21:08)
[2017-07-13] MEDS: LORazepam Inj 2mg/ml 1ml IV PRN (09:26)
[2017-07-13] MEDS: Pantoprazole Inj IV SCH (09:26)
[2017-07-13] MEDS: Dyna-Hex 2% Top Sol 2oz TOPIC SCH (09:27)
[2017-07-13] MEDS ORDERED: NS 275ml ONE ×2 (09:33→16:32)
[2017-07-13] MEDS ORDERED: Sterile Water Irrig 1000ml IRRIG ONE (09:33)
--- NOTE | 2017-07-13 11:42 | Diagnostic Imaging Report ---
Indication: Malpositioned endotracheal tube Technique: One view of the chest Comparison: 2 hours earlier Findings: Endotracheal tube is been withdrawn somewhat, but tip still projects at the level of the orifice of the right mainstem bronchus. There is further left lung volume loss. Right lung and pleural space remain clear Impression: Improved but still suboptimal position of endotracheal tube. Withdrawal by an additional 2 cm recommended with followup radiography. This was discussed with ICU nurse at the time of interpretation increasing left lung volume loss
[2017-07-13] MEDS ORDERED: Vancomycin 1250mg/D5W 250ml IVPB ONE (14:00)
--- NOTE | 2017-07-13 14:04 | Infectious Diseases Prog Note ---
Assessment/Plan Problems: (1) HCAP (healthcare-associated pneumonia) Assessment & Plan: due to pseudomonas aeruginosa and MRSA, S/P zosyn, and vancomycin for two weeks total , repeated CXR showed improvement in the left lung aeration . S/P bronchoscopy X2 and removal of mucous plug, will restart antibiotics with meropenem and vancomycin since he devoloped left lung consolidation after his lung collapsed again , and send sputum culture , monitor CXR, and WBC, continue nebulizers as needed (2) Acute respiratory failure Assessment & Plan: due to left lung collapse , S/P re-intubation and mechanical ventilation. 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 , due to mucous plug, S/P bronchoscopy x2 , may need bronchial stent pulmonary is following (5) UTI (urinary tract infection) Assessment & Plan: with MDR Providencia stuartii and craig, will send urine culture again, and start meropenem to treat for two weeks Subjective ROS Limited/Unobtainable: Yes Allergies: Coded Allergies: CHLORPROMAZINE (Verified Allergy, Unknown, 06/23/17) ERYTHROMYCIN BASE (Verified Allergy, Unknown, 06/23/17) Uncoded Allergies: TAPE (Allergy, Unknown, 06/23/17) Subjective he was reintubated again last night due to left lung collapse again, now on mechanical ventilation , comfortable, responsive , not in distress , no fever , no diarrhea Objective Vital Signs Last 24 Hour Vital Signs Date Time Temp Pulse Resp B/P (MAP) Pulse Ox O2 Delivery O2 Flow Rate FiO2 07/13/17 13:24 92 16 55 07/13/17 13:00 99 20 103/58 98 Mechanical Ventilator 55 07/13/17 12:00 110 07/13/17 12:00 98.0 107 19 103/58 98 Mechanical Ventilator 55 07/13/17 11:36 55 07/13/17 11:33 116 17 55 07/13/17 11:00 55 07/13/17 11:00 110 20 104/68 98 Mechanical Ventilator 100 07/13/17 10:00 100 07/13/17 10:00 130 19 131/64 98 Mechanical Ventilator 100 07/13/17 09:00 120 19 120/70 98 Mechanical Ventilator 100 07/13/17 09:00 100 07/13/17 08:45 126 18 100 07/13/17 08:00 76 07/13/17 08:00 97.8 79 20 90/49 98 Bi-pap 30 07/13/17 07:32 78 22 93 Facial 40 07/13/17 07:31 Bi-pap 40 07/13/17 07:30 93 Bi-pap 40 07/13/17 07:00 83 24 91/50 96 Bi-pap 30 07/13/17 06:00 80 24 89/50 96 Bi-pap 30 07/13/17 05:39 82 25 94 Facial 30 07/13/17 05:00 98.1 76 20 88/49 98 Bi-pap 40 07/13/17 04:00 75 07/13/17 04:00 77 24 84/48 96 Bi-pap 40 07/13/17 03:55 74 24 98 Facial 40 07/13/17 03:00 78 23 85/50 95 Bi-pap 40 07/13/17 02:00 78 20 100/53 96 Bi-pap 40 07/13/17 01:30 71 25 98 Facial 40 07/13/17 01:00 78 20 86/46 96 Bi-pap 40 07/13/17 00:00 98.1 82 20 90/47 98 Venturi Mask 50 07/13/17 00:00 78 07/12/17 23:00 74 20 85/43 95 Bi-pap 40 07/12/17 23:00 76 20 85/43 95 Bi-pap 40 07/12/17 22:34 76 25 97 Facial 40 07/12/17 22:30 77 20 83/46 97 Bi-pap 40 07/12/17 22:00 83 20 90/47 95 Bi-pap 40 07/12/17 21:57 83/49 07/12/17 21:30 75 20 87/49 100 Bi-pap 40 07/12/17 21:12 78 24 100 Facial 40 07/12/17 21:00 95 20 106/36 100 Venturi Mask 50 07/12/17 20:30 76 20 89/52 100 Venturi Mask 50 07/12/17 20:02 100 Nasal Cannula 2.0 28 07/12/17 20:02 Nasal Cannula 2.0 28 07/12/17 20:00 66 07/12/17 20:00 98.5 79 20 87/48 98 Venturi Mask 50 07/12/17 19:00 72 20 91/52 100 Venturi Mask 50 07/12/17 18:30 80 26 112/60 100 Venturi Mask 50 07/12/17 17:30 79 30 116/67 100 Venturi Mask 50 07/12/17 17:00 78 21 111/57 100 Venturi Mask 50 07/12/17 16:30 85 21 121/66 94 Venturi Mask 50 07/12/17 16:00 72 07/12/17 16:00 98.6 74 21 99/54 96 Venturi Mask 50 07/12/17 15:30 94 21 108/57 94 Venturi Mask 50 07/12/17 15:00 95 21 104/63 94 Venturi Mask 50 07/12/17 14:30 80 22 95/51 98 Venturi Mask 50 07/12/17 14:30 97/55 07/12/17 14:00 87 20 97/55 96 Venturi Mask 50 Height (Feet): 5 Height (Inches): 11.00 Weight (Pounds): 131 General Appearance: WD/WN, no acute distress HEENT: normocephalic, atraumatic, anicteric, mucous membranes moist, supple, no JVD Respiratory/Chest: chest wall non-tender, no respiratory distress, no accessory muscle use, decreased breath sounds, crackles/rales Cardiovascular: normal peripheral pulses, normal rate, regular rhythm, no gallop/murmur, no JVD Abdomen: normal bowel sounds, soft, non tender, no organomegaly, non distended , no mass, no scars Extremities: no cyanosis, no clubbing Skin: no rash, no lesions, no ulcers Lymphatic: no neck adenopathy, no groin adenopathy Microbiology Date/Time Source Procedure Growth Status 07/10/17 16:30 Indwelling Cath Urine Culture - Final Providencia Stuartii Craig Albicans Complete Laboratory Tests Test 07/13/17 04:00 07/13/17 05:35 07/13/17 10:25 Arterial Blood pH 7.420 (7.350-7.450) 7.433 (7.350-7.450) Arterial Blood Partial Pressure CO2 46.8 mmHg (35.0-45.0) H 43.7 mmHg (35.0-45.0) Arterial Blood Partial Pressure O2 67.0 mmHg (75.0-100.0) L 74.0 mmHg (75.0-100.0) L Arterial Blood HCO3 29.9 mmol/L (22.0-26.0) H 28.6 mmol/L (22.0-26.0) H Arterial Blood Oxygen Saturation 90.7 % (92.0-98.0) L 95.2 % (92.0-98.0) Arterial Blood Base Excess 4.5 3.8 Anthony Test Positive Positive White Blood Count 9.3 K/UL (4.8-10.8) Red Blood Count 2.89 M/UL (4.70-6.10) L Hemoglobin 10.2 G/DL (14.2-18.0) L Hematocrit 29.6 % (42.0-52.0) L Mean Corpuscular Volume 102 FL (80-99) H Mean Corpuscular Hemoglobin 35.4 PG (27.0-31.0) H Mean Corpuscular Hemoglobin Concent 34.6 G/DL (32.0-36.0) Red Cell Distribution Width 13.1 % (11.6-14.8) Platelet Count 310 K/UL (150-450) Mean Platelet Volume 5.4 FL (6.5-10.1) L Neutrophils (%) (Auto) 60.8 % (45.0-75.0) Lymphocytes (%) (Auto) 29.1 % (20.0-45.0) Monocytes (%) (Auto) 4.4 % (1.0-10.0) Eosinophils (%) (Auto) 4.6 % (0.0-3.0) H Basophils (%) (Auto) 1.1 % (0.0-2.0) Sodium Level 140 MMOL/L (136-145) Potassium Level 4.3 MMOL/L (3.5-5.1) Chloride Level 104 MMOL/L (98-107) Carbon Dioxide Level 27 MMOL/L (21-32) Anion Gap 9 mmol/L (5-15) Blood Urea Nitrogen 23 mg/dL (7-18) H Creatinine 0.9 MG/DL (0.55-1.30) Estimat Glomerular Filtration Rate > 60 mL/min (>60) Glucose Level 116 MG/DL (74-106) H Calcium Level 9.6 MG/DL (8.5-10.1) Phosphorus Level 4.9 MG/DL (2.5-4.9) Magnesium Level 2.1 MG/DL (1.8-2.4) Total Bilirubin 0.3 MG/DL (0.2-1.0) Aspartate Amino Transf (AST/SGOT) 18 U/L (15-37) Alanine Aminotransferase (ALT/SGPT) 14 U/L (12-78) Alkaline Phosphatase 66 U/L (46-116) Total Protein 7.2 G/DL (6.4-8.2) Albumin 2.4 G/DL (3.4-5.0) L Globulin 4.8 g/dL Albumin/Globulin Ratio 0.5 (1.0-2.7) L Current Medications Medications (Trade) Dose Ordered Sig/Karen Route PRN Reason Start Time Stop Time Status Last Admin Dose Admin Carbamazepine (TEGretol) 200 mg FOUR TIMES A DAY ORAL 07/02/17 09:00 07/23/17 12:59 07/13/17 09:25 Chlorhexidine Gluconate (Cassandra-Hex 2%) 1 applic DAILY TOPIC 07/13/17 09:00 08/12/17 08:59 07/13/17 09:27 Dextrose (Dextrose 50%) STAT PRN IV Hypoglycemia 07/02/17 12:00 07/25/17 11:59 Docusate Sodium (Colace) 100 mg DAILY ORAL 07/02/17 09:00 07/29/17 08:59 07/13/17 09:25 Dopamine HCl/ Dextrose 250 ml @ 0 mls/hr Q24H IV 07/10/17 21:30 08/09/17 21:29 07/12/17 21:57 Heparin Sodium (Porcine) (Heparin 5000 units/ml) 5,000 units EVERY 12 HOURS SUBQ 07/02/17 09:00 07/23/17 20:59 07/13/17 09:26 Levetiracetam (Keppra) 500 mg Q12HR ORAL 07/02/17 09:00 07/23/17 20:59 07/13/17 09:25 Lorazepam (Ativan 2mg/ml 1ml) 2 mg Q4H PRN IV For Anxiety 07/13/17 08:45 07/20/17 08:44 07/13/17 09:26 Meropenem 1 gm/ Sodium Chloride 110 ml @ 220 mls/hr Q8HR IVPB 07/13/17 13:30 07/18/17 13:29 Morphine Sulfate (Morphine Sulfate) 4 mg Q4H PRN IVP PAIN 4-10 07/13/17 08:45 07/20/17 08:44 Nitroglycerin (Ntg) 0.4 mg Q5M X 3 DOSES PRN SL Prn Chest Pain 07/01/17 23:45 07/23/17 13:29 Olanzapine (ZyPREXA) 20 mg BEDTIME ORAL 07/02/17 21:00 07/24/17 08:59 07/12/17 20:56 Ondansetron HCl (Zofran) 4 mg Q6H PRN IVP Nausea & Vomiting 07/02/17 00:00 07/23/17 11:59 Pantoprazole (Protonix) 40 mg DAILY IV 07/13/17 09:00 08/12/17 08:59 07/13/17 09:26 Polyethylene Glycol (Miralax) 17 gm DAILYPRN PRN ORAL Constipation 07/13/17 08:15 08/12/17 08:14 07/13/17 09:25 Theophylline (Dane-Dur) 100 mg EVERY 12 HOURS ORAL 07/02/17 09:00 07/23/17 20:59 07/13/17 09:26 Vancomycin HCl (Vanco rx to dose) 1 ea DAILY PRN MISC Per rx protocol 07/13/17 12:15 08/12/17 12:14 Vancomycin HCl/ Dextrose 250 ml @ 166.667 mls/hr ONCE ONCE IVPB 07/13/17 14:00 07/13/17 15:29 Vancomycin HCl/ Dextrose 250 ml @ 166.667 mls/hr Q24H IVPB 07/14/17 14:30 07/19/17 14:29 Dafne Orourke M.D. Jul 13, 2017 14:04
[2017-07-13] MEDS: Meropenem 1 GM in NS 110 ML IVPB SCH ×2 (14:05→21:36)
--- NOTE | 2017-07-13 14:55 | Nephrology Progress Note ---
Assessment/Plan Assessment 1. hypokalemia 2. respiratory failure 3. Hypertension. 4. History of chronic obstructive pulmonary disease. Plan plan to give NS bolus monitoring out put continue iv antibiotic monitoring renal function monitoring electrolyte replace as need avoid any NSAID Subjective Subjective self extubated no changes in MS doing ok Objective Objective Last 24 Hour Vital Signs Date Time Temp Pulse Resp B/P (MAP) Pulse Ox O2 Delivery O2 Flow Rate FiO2 07/13/17 14:00 95 20 93/57 98 Mechanical Ventilator 55 07/13/17 13:24 92 16 55 07/13/17 13:00 99 20 103/58 98 Mechanical Ventilator 55 07/13/17 12:00 110 07/13/17 12:00 98.0 107 19 103/58 98 Mechanical Ventilator 55 07/13/17 11:36 55 07/13/17 11:33 116 17 55 07/13/17 11:00 55 07/13/17 11:00 110 20 104/68 98 Mechanical Ventilator 100 07/13/17 10:00 100 07/13/17 10:00 130 19 131/64 98 Mechanical Ventilator 100 07/13/17 09:00 120 19 120/70 98 Mechanical Ventilator 100 07/13/17 09:00 100 07/13/17 08:45 126 18 100 07/13/17 08:00 76 07/13/17 08:00 97.8 79 20 90/49 98 Bi-pap 30 07/13/17 07:32 78 22 93 Facial 40 07/13/17 07:31 Bi-pap 40 07/13/17 07:30 93 Bi-pap 40 07/13/17 07:00 83 24 91/50 96 Bi-pap 30 07/13/17 06:00 80 24 89/50 96 Bi-pap 30 07/13/17 05:39 82 25 94 Facial 30 07/13/17 05:00 98.1 76 20 88/49 98 Bi-pap 40 07/13/17 04:00 75 07/13/17 04:00 77 24 84/48 96 Bi-pap 40 07/13/17 03:55 74 24 98 Facial 40 07/13/17 03:00 78 23 85/50 95 Bi-pap 40 07/13/17 02:00 78 20 100/53 96 Bi-pap 40 07/13/17 01:30 71 25 98 Facial 40 07/13/17 01:00 78 20 86/46 96 Bi-pap 40 07/13/17 00:00 98.1 82 20 90/47 98 Venturi Mask 50 07/13/17 00:00 78 07/12/17 23:00 74 20 85/43 95 Bi-pap 40 07/12/17 23:00 76 20 85/43 95 Bi-pap 40 07/12/17 22:34 76 25 97 Facial 40 07/12/17 22:30 77 20 83/46 97 Bi-pap 40 07/12/17 22:00 83 20 90/47 95 Bi-pap 40 07/12/17 21:57 83/49 07/12/17 21:30 75 20 87/49 100 Bi-pap 40 07/12/17 21:12 78 24 100 Facial 40 07/12/17 21:00 95 20 106/36 100 Venturi Mask 50 07/12/17 20:30 76 20 89/52 100 Venturi Mask 50 07/12/17 20:02 100 Nasal Cannula 2.0 07/12/17 20:02 Nasal Cannula 2.0 28 07/12/17 20:00 66 07/12/17 20:00 98.5 79 20 87/48 98 Venturi Mask 50 07/12/17 19:00 72 20 91/52 100 Venturi Mask 50 07/12/17 18:30 80 26 112/60 100 Venturi Mask 50 07/12/17 17:30 79 30 116/67 100 Venturi Mask 50 07/12/17 17:00 78 21 111/57 100 Venturi Mask 50 07/12/17 16:30 85 21 121/66 94 Venturi Mask 50 07/12/17 16:00 72 07/12/17 16:00 98.6 74 21 99/54 96 Venturi Mask 50 07/12/17 15:30 94 21 108/57 94 Venturi Mask 50 07/12/17 15:00 95 21 104/63 94 Venturi Mask 50 Intake and Output 07/13/17 07/14/17 19:00 07:00 Intake Total 552.358 ml Output Total 460 ml Balance 92.358 ml IV Total 37.358 ml Tube Feeding 455 ml Other 60 ml Output Urine Total 460 ml # Bowel Movements 1 Laboratory Tests 07/13/17 04:00: Arterial Blood pH 7.420, Arterial Blood Partial Pressure CO2 46.8H, Arterial Blood Partial Pressure O2 67.0L, Arterial Blood HCO3 29.9H, Arterial Blood Oxygen Saturation 90.7L, Arterial Blood Base Excess 4.5, Anthony Test Positive 07/13/17 05:35: White Blood Count 9.3, Red Blood Count 2.89L, Hemoglobin 10.2L, Hematocrit 29.6L , Mean Corpuscular Volume 102H, Mean Corpuscular Hemoglobin 35.4H, Mean Corpuscular Hemoglobin Concent 34.6, Red Cell Distribution Width 13.1, Platelet Count 310, Mean Platelet Volume 5.4L, Neutrophils (%) (Auto) 60.8, Lymphocytes ( %) (Auto) 29.1, Monocytes (%) (Auto) 4.4, Eosinophils (%) (Auto) 4.6H, Basophils (%) (Auto) 1.1, Sodium Level 140, Potassium Level 4.3, Chloride Level 104, Carbon Dioxide Level 27, Anion Gap 9, Blood Urea Nitrogen 23H, Creatinine 0.9, Estimat Glomerular Filtration Rate > 60, Glucose Level 116H, Calcium Level 9.6, Phosphorus Level 4.9, Magnesium Level 2.1, Total Bilirubin 0.3, Aspartate Amino Transf (AST/SGOT) 18, Alanine Aminotransferase (ALT/SGPT) 14, Alkaline Phosphatase 66, Total Protein 7.2, Albumin 2.4L, Globulin 4.8, Albumin/Globulin Ratio 0.5L 07/13/17 10:25: Arterial Blood pH 7.433, Arterial Blood Partial Pressure CO2 43.7, Arterial Blood Partial Pressure O2 74.0L, Arterial Blood HCO3 28.6H, Arterial Blood Oxygen Saturation 95.2, Arterial Blood Base Excess 3.8, Anthony Test Positive Height (Feet): 5 Height (Inches): 11.00 Weight (Pounds): 131 Objective HEAD AND NECK: No JVP. No LAD. No thyromegaly. Extraocular movements intact. Pupils are reactive to light and accommodation. LUNGS: Clear to auscultation. CARDIAC: Regular rate and rhythm. S1 and S2. No murmur. No rub. ABDOMEN: Soft, nontender, and nondistended. EXTREMITIES: No edema. No clubbing. No cyanosis. NEUROLOGIC: The patient opened up his eyes, not following verbal commands. RANCHO SYKES Jul 13, 2017 14:55
--- NOTE | 2017-07-13 20:34 | General Progress Note ---
Assessment/Plan Problem List: (1) History of pacemaker ICD Codes: Z95.0 - Presence of cardiac pacemaker SNOMED: 548428625 (2) Schizophrenia ICD Codes: F20.9 - Schizophrenia, unspecified SNOMED: 74888173 (3) Limited mobility ICD Codes: Z74.09 - Other reduced mobility SNOMED: 1864059 (4) Acute respiratory failure ICD Codes: J96.00 - Acute respiratory failure, unspecified whether with hypoxia or hypercapnia SNOMED: 33131424 (5) Sepsis ICD Codes: A41.9 - Sepsis, unspecified organism SNOMED: 79893441 (6) HCAP (healthcare-associated pneumonia) ICD Codes: J18.9 - Pneumonia, unspecified organism SNOMED: 058665250 Status: progressing Assessment/Plan arrythmia le weakness no wheezing reivewed chart and labs and meds resp insuff Subjective ROS Limited/Unobtainable: Yes Allergies: Coded Allergies: CHLORPROMAZINE (Verified Allergy, Unknown, 06/23/17) ERYTHROMYCIN BASE (Verified Allergy, Unknown, 06/23/17) Uncoded Allergies: TAPE (Allergy, Unknown, 06/23/17) Objective Last 24 Hour Vital Signs Date Time Temp Pulse Resp B/P (MAP) Pulse Ox O2 Delivery O2 Flow Rate FiO2 07/13/17 19:11 79 16 55 07/13/17 19:00 82 17 90/54 100 Mechanical Ventilator 55 07/13/17 18:00 83 16 88/54 100 Mechanical Ventilator 55 07/13/17 17:09 74 16 55 07/13/17 17:00 84 19 92/66 98 Mechanical Ventilator 55 07/13/17 16:00 94 07/13/17 16:00 55 07/13/17 16:00 98.3 102 19 90/49 98 Mechanical Ventilator 55 07/13/17 15:35 94 16 55 07/13/17 15:00 104 19 89/51 98 Mechanical Ventilator 55 07/13/17 14:00 95 20 93/57 98 Mechanical Ventilator 55 07/13/17 13:24 92 16 55 07/13/17 13:00 99 20 103/58 98 Mechanical Ventilator 55 07/13/17 12:00 110 07/13/17 12:00 98.0 107 19 103/58 98 Mechanical Ventilator 55 07/13/17 11:36 55 07/13/17 11:33 116 17 55 07/13/17 11:00 55 07/13/17 11:00 110 20 104/68 98 Mechanical Ventilator 100 07/13/17 10:00 100 07/13/17 10:00 130 19 131/64 98 Mechanical Ventilator 100 07/13/17 09:00 120 19 120/70 98 Mechanical Ventilator 100 07/13/17 09:00 100 07/13/17 08:45 126 18 100 07/13/17 08:00 76 07/13/17 08:00 97.8 79 20 90/49 98 Bi-pap 30 07/13/17 07:32 78 22 93 Facial 40 07/13/17 07:31 Bi-pap 40 07/13/17 07:30 93 Bi-pap 40 07/13/17 07:00 83 24 91/50 96 Bi-pap 30 07/13/17 06:00 80 24 89/50 96 Bi-pap 30 07/13/17 05:39 82 25 94 Facial 30 07/13/17 05:00 98.1 76 20 88/49 98 Bi-pap 40 07/13/17 04:00 75 07/13/17 04:00 77 24 84/48 96 Bi-pap 40 07/13/17 03:55 74 24 98 Facial 40 07/13/17 03:00 78 23 85/50 95 Bi-pap 40 07/13/17 02:00 78 20 100/53 96 Bi-pap 40 07/13/17 01:30 71 25 98 Facial 40 07/13/17 01:00 78 20 86/46 96 Bi-pap 40 07/13/17 00:00 98.1 82 20 90/47 98 Venturi Mask 50 07/13/17 00:00 78 07/12/17 23:00 74 20 85/43 95 Bi-pap 40 07/12/17 23:00 76 20 85/43 95 Bi-pap 40 07/12/17 22:34 76 25 97 Facial 40 07/12/17 22:30 77 20 83/46 97 Bi-pap 40 07/12/17 22:00 83 20 90/47 95 Bi-pap 40 07/12/17 21:57 83/49 07/12/17 21:30 75 20 87/49 100 Bi-pap 40 07/12/17 21:12 78 24 100 Facial 40 07/12/17 21:00 95 20 106/36 100 Venturi Mask 50 Intake and Output 07/13/17 07/14/17 19:00 07:00 Intake Total 1068.113 ml Output Total 790 ml Balance 278.113 ml IV Total 168.113 ml Tube Feeding 780 ml Other 120 ml Output Urine Total 790 ml # Bowel Movements 4 Laboratory Tests 07/13/17 04:00: Arterial Blood pH 7.420, Arterial Blood Partial Pressure CO2 46.8H, Arterial Blood Partial Pressure O2 67.0L, Arterial Blood HCO3 29.9H, Arterial Blood Oxygen Saturation 90.7L, Arterial Blood Base Excess 4.5, Anthony Test Positive 07/13/17 05:35: White Blood Count 9.3, Red Blood Count 2.89L, Hemoglobin 10.2L, Hematocrit 29.6L , Mean Corpuscular Volume 102H, Mean Corpuscular Hemoglobin 35.4H, Mean Corpuscular Hemoglobin Concent 34.6, Red Cell Distribution Width 13.1, Platelet Count 310, Mean Platelet Volume 5.4L, Neutrophils (%) (Auto) 60.8, Lymphocytes ( %) (Auto) 29.1, Monocytes (%) (Auto) 4.4, Eosinophils (%) (Auto) 4.6H, Basophils (%) (Auto) 1.1, Sodium Level 140, Potassium Level 4.3, Chloride Level 104, Carbon Dioxide Level 27, Anion Gap 9, Blood Urea Nitrogen 23H, Creatinine 0.9, Estimat Glomerular Filtration Rate > 60, Glucose Level 116H, Calcium Level 9.6, Phosphorus Level 4.9, Magnesium Level 2.1, Total Bilirubin 0.3, Aspartate Amino Transf (AST/SGOT) 18, Alanine Aminotransferase (ALT/SGPT) 14, Alkaline Phosphatase 66, Total Protein 7.2, Albumin 2.4L, Globulin 4.8, Albumin/Globulin Ratio 0.5L 07/13/17 10:25: Arterial Blood pH 7.433, Arterial Blood Partial Pressure CO2 43.7, Arterial Blood Partial Pressure O2 74.0L, Arterial Blood HCO3 28.6H, Arterial Blood Oxygen Saturation 95.2, Arterial Blood Base Excess 3.8, Anthony Test Positive Height (Feet): 5 Height (Inches): 11.00 Weight (Pounds): 131 Cardiovascular: normal rate Abdomen: no organomegaly Michael Simon MD Jul 13, 2017 20:34
--- NOTE | 2017-07-13 20:34 | General Progress Note ---
Assessment/Plan Problem List: (1) History of pacemaker ICD Codes: Z95.0 - Presence of cardiac pacemaker SNOMED: 670388920 (2) Schizophrenia ICD Codes: F20.9 - Schizophrenia, unspecified SNOMED: 38023350 (3) Limited mobility ICD Codes: Z74.09 - Other reduced mobility SNOMED: 2891217 (4) Acute respiratory failure ICD Codes: J96.00 - Acute respiratory failure, unspecified whether with hypoxia or hypercapnia SNOMED: 17263622 (5) Sepsis ICD Codes: A41.9 - Sepsis, unspecified organism SNOMED: 23532621 (6) HCAP (healthcare-associated pneumonia) ICD Codes: J18.9 - Pneumonia, unspecified organism SNOMED: 383013336 Status: progressing Assessment/Plan arrythmia le weakness no wheezing reivewed chart and labs and meds resp insuff Subjective ROS Limited/Unobtainable: Yes Allergies: Coded Allergies: CHLORPROMAZINE (Verified Allergy, Unknown, 06/23/17) ERYTHROMYCIN BASE (Verified Allergy, Unknown, 06/23/17) Uncoded Allergies: TAPE (Allergy, Unknown, 06/23/17) Objective Last 24 Hour Vital Signs Date Time Temp Pulse Resp B/P (MAP) Pulse Ox O2 Delivery O2 Flow Rate FiO2 07/13/17 19:11 79 16 55 07/13/17 19:00 82 17 90/54 100 Mechanical Ventilator 55 07/13/17 18:00 83 16 88/54 100 Mechanical Ventilator 55 07/13/17 17:09 74 16 55 07/13/17 17:00 84 19 92/66 98 Mechanical Ventilator 55 07/13/17 16:00 94 07/13/17 16:00 55 07/13/17 16:00 98.3 102 19 90/49 98 Mechanical Ventilator 55 07/13/17 15:35 94 16 55 07/13/17 15:00 104 19 89/51 98 Mechanical Ventilator 55 07/13/17 14:00 95 20 93/57 98 Mechanical Ventilator 55 07/13/17 13:24 92 16 55 07/13/17 13:00 99 20 103/58 98 Mechanical Ventilator 55 07/13/17 12:00 110 07/13/17 12:00 98.0 107 19 103/58 98 Mechanical Ventilator 55 07/13/17 11:36 55 07/13/17 11:33 116 17 55 07/13/17 11:00 55 07/13/17 11:00 110 20 104/68 98 Mechanical Ventilator 100 07/13/17 10:00 100 07/13/17 10:00 130 19 131/64 98 Mechanical Ventilator 100 07/13/17 09:00 120 19 120/70 98 Mechanical Ventilator 100 07/13/17 09:00 100 07/13/17 08:45 126 18 100 07/13/17 08:00 76 07/13/17 08:00 97.8 79 20 90/49 98 Bi-pap 30 07/13/17 07:32 78 22 93 Facial 40 07/13/17 07:31 Bi-pap 40 07/13/17 07:30 93 Bi-pap 40 07/13/17 07:00 83 24 91/50 96 Bi-pap 30 07/13/17 06:00 80 24 89/50 96 Bi-pap 30 07/13/17 05:39 82 25 94 Facial 30 07/13/17 05:00 98.1 76 20 88/49 98 Bi-pap 40 07/13/17 04:00 75 07/13/17 04:00 77 24 84/48 96 Bi-pap 40 07/13/17 03:55 74 24 98 Facial 40 07/13/17 03:00 78 23 85/50 95 Bi-pap 40 07/13/17 02:00 78 20 100/53 96 Bi-pap 40 07/13/17 01:30 71 25 98 Facial 40 07/13/17 01:00 78 20 86/46 96 Bi-pap 40 07/13/17 00:00 98.1 82 20 90/47 98 Venturi Mask 50 07/13/17 00:00 78 07/12/17 23:00 74 20 85/43 95 Bi-pap 40 07/12/17 23:00 76 20 85/43 95 Bi-pap 40 07/12/17 22:34 76 25 97 Facial 40 07/12/17 22:30 77 20 83/46 97 Bi-pap 40 07/12/17 22:00 83 20 90/47 95 Bi-pap 40 07/12/17 21:57 83/49 07/12/17 21:30 75 20 87/49 100 Bi-pap 40 07/12/17 21:12 78 24 100 Facial 40 07/12/17 21:00 95 20 106/36 100 Venturi Mask 50 Intake and Output 07/13/17 07/14/17 19:00 07:00 Intake Total 1068.113 ml Output Total 790 ml Balance 278.113 ml IV Total 168.113 ml Tube Feeding 780 ml Other 120 ml Output Urine Total 790 ml # Bowel Movements 4 Laboratory Tests 07/13/17 04:00: Arterial Blood pH 7.420, Arterial Blood Partial Pressure CO2 46.8H, Arterial Blood Partial Pressure O2 67.0L, Arterial Blood HCO3 29.9H, Arterial Blood Oxygen Saturation 90.7L, Arterial Blood Base Excess 4.5, Anthony Test Positive 07/13/17 05:35: White Blood Count 9.3, Red Blood Count 2.89L, Hemoglobin 10.2L, Hematocrit 29.6L , Mean Corpuscular Volume 102H, Mean Corpuscular Hemoglobin 35.4H, Mean Corpuscular Hemoglobin Concent 34.6, Red Cell Distribution Width 13.1, Platelet Count 310, Mean Platelet Volume 5.4L, Neutrophils (%) (Auto) 60.8, Lymphocytes ( %) (Auto) 29.1, Monocytes (%) (Auto) 4.4, Eosinophils (%) (Auto) 4.6H, Basophils (%) (Auto) 1.1, Sodium Level 140, Potassium Level 4.3, Chloride Level 104, Carbon Dioxide Level 27, Anion Gap 9, Blood Urea Nitrogen 23H, Creatinine 0.9, Estimat Glomerular Filtration Rate > 60, Glucose Level 116H, Calcium Level 9.6, Phosphorus Level 4.9, Magnesium Level 2.1, Total Bilirubin 0.3, Aspartate Amino Transf (AST/SGOT) 18, Alanine Aminotransferase (ALT/SGPT) 14, Alkaline Phosphatase 66, Total Protein 7.2, Albumin 2.4L, Globulin 4.8, Albumin/Globulin Ratio 0.5L 07/13/17 10:25: Arterial Blood pH 7.433, Arterial Blood Partial Pressure CO2 43.7, Arterial Blood Partial Pressure O2 74.0L, Arterial Blood HCO3 28.6H, Arterial Blood Oxygen Saturation 95.2, Arterial Blood Base Excess 3.8, Anthony Test Positive Height (Feet): 5 Height (Inches): 11.00 Weight (Pounds): 131 Cardiovascular: normal rate Abdomen: no organomegaly Michael Simon MD Jul 13, 2017 20:34
--- NOTE | 2017-07-13 20:34 | General Progress Note ---
Assessment/Plan Problem List: (1) History of pacemaker ICD Codes: Z95.0 - Presence of cardiac pacemaker SNOMED: 340272673 (2) Schizophrenia ICD Codes: F20.9 - Schizophrenia, unspecified SNOMED: 18614661 (3) Limited mobility ICD Codes: Z74.09 - Other reduced mobility SNOMED: 6933269 (4) Acute respiratory failure ICD Codes: J96.00 - Acute respiratory failure, unspecified whether with hypoxia or hypercapnia SNOMED: 33002932 (5) Sepsis ICD Codes: A41.9 - Sepsis, unspecified organism SNOMED: 37923953 (6) HCAP (healthcare-associated pneumonia) ICD Codes: J18.9 - Pneumonia, unspecified organism SNOMED: 254107975 Status: progressing Assessment/Plan arrythmia le weakness no wheezing reivewed chart and labs and meds resp insuff Subjective ROS Limited/Unobtainable: Yes Allergies: Coded Allergies: CHLORPROMAZINE (Verified Allergy, Unknown, 06/23/17) ERYTHROMYCIN BASE (Verified Allergy, Unknown, 06/23/17) Uncoded Allergies: TAPE (Allergy, Unknown, 06/23/17) Objective Last 24 Hour Vital Signs Date Time Temp Pulse Resp B/P (MAP) Pulse Ox O2 Delivery O2 Flow Rate FiO2 07/13/17 19:11 79 16 55 07/13/17 19:00 82 17 90/54 100 Mechanical Ventilator 55 07/13/17 18:00 83 16 88/54 100 Mechanical Ventilator 55 07/13/17 17:09 74 16 55 07/13/17 17:00 84 19 92/66 98 Mechanical Ventilator 55 07/13/17 16:00 94 07/13/17 16:00 55 07/13/17 16:00 98.3 102 19 90/49 98 Mechanical Ventilator 55 07/13/17 15:35 94 16 55 07/13/17 15:00 104 19 89/51 98 Mechanical Ventilator 55 07/13/17 14:00 95 20 93/57 98 Mechanical Ventilator 55 07/13/17 13:24 92 16 55 07/13/17 13:00 99 20 103/58 98 Mechanical Ventilator 55 07/13/17 12:00 110 07/13/17 12:00 98.0 107 19 103/58 98 Mechanical Ventilator 55 07/13/17 11:36 55 07/13/17 11:33 116 17 55 07/13/17 11:00 55 07/13/17 11:00 110 20 104/68 98 Mechanical Ventilator 100 07/13/17 10:00 100 07/13/17 10:00 130 19 131/64 98 Mechanical Ventilator 100 07/13/17 09:00 120 19 120/70 98 Mechanical Ventilator 100 07/13/17 09:00 100 07/13/17 08:45 126 18 100 07/13/17 08:00 76 07/13/17 08:00 97.8 79 20 90/49 98 Bi-pap 30 07/13/17 07:32 78 22 93 Facial 40 07/13/17 07:31 Bi-pap 40 07/13/17 07:30 93 Bi-pap 40 07/13/17 07:00 83 24 91/50 96 Bi-pap 30 07/13/17 06:00 80 24 89/50 96 Bi-pap 30 07/13/17 05:39 82 25 94 Facial 30 07/13/17 05:00 98.1 76 20 88/49 98 Bi-pap 40 07/13/17 04:00 75 07/13/17 04:00 77 24 84/48 96 Bi-pap 40 07/13/17 03:55 74 24 98 Facial 40 07/13/17 03:00 78 23 85/50 95 Bi-pap 40 07/13/17 02:00 78 20 100/53 96 Bi-pap 40 07/13/17 01:30 71 25 98 Facial 40 07/13/17 01:00 78 20 86/46 96 Bi-pap 40 07/13/17 00:00 98.1 82 20 90/47 98 Venturi Mask 50 07/13/17 00:00 78 07/12/17 23:00 74 20 85/43 95 Bi-pap 40 07/12/17 23:00 76 20 85/43 95 Bi-pap 40 07/12/17 22:34 76 25 97 Facial 40 07/12/17 22:30 77 20 83/46 97 Bi-pap 40 07/12/17 22:00 83 20 90/47 95 Bi-pap 40 07/12/17 21:57 83/49 07/12/17 21:30 75 20 87/49 100 Bi-pap 40 07/12/17 21:12 78 24 100 Facial 40 07/12/17 21:00 95 20 106/36 100 Venturi Mask 50 Intake and Output 07/13/17 07/14/17 19:00 07:00 Intake Total 1068.113 ml Output Total 790 ml Balance 278.113 ml IV Total 168.113 ml Tube Feeding 780 ml Other 120 ml Output Urine Total 790 ml # Bowel Movements 4 Laboratory Tests 07/13/17 04:00: Arterial Blood pH 7.420, Arterial Blood Partial Pressure CO2 46.8H, Arterial Blood Partial Pressure O2 67.0L, Arterial Blood HCO3 29.9H, Arterial Blood Oxygen Saturation 90.7L, Arterial Blood Base Excess 4.5, Anthony Test Positive 07/13/17 05:35: White Blood Count 9.3, Red Blood Count 2.89L, Hemoglobin 10.2L, Hematocrit 29.6L , Mean Corpuscular Volume 102H, Mean Corpuscular Hemoglobin 35.4H, Mean Corpuscular Hemoglobin Concent 34.6, Red Cell Distribution Width 13.1, Platelet Count 310, Mean Platelet Volume 5.4L, Neutrophils (%) (Auto) 60.8, Lymphocytes ( %) (Auto) 29.1, Monocytes (%) (Auto) 4.4, Eosinophils (%) (Auto) 4.6H, Basophils (%) (Auto) 1.1, Sodium Level 140, Potassium Level 4.3, Chloride Level 104, Carbon Dioxide Level 27, Anion Gap 9, Blood Urea Nitrogen 23H, Creatinine 0.9, Estimat Glomerular Filtration Rate > 60, Glucose Level 116H, Calcium Level 9.6, Phosphorus Level 4.9, Magnesium Level 2.1, Total Bilirubin 0.3, Aspartate Amino Transf (AST/SGOT) 18, Alanine Aminotransferase (ALT/SGPT) 14, Alkaline Phosphatase 66, Total Protein 7.2, Albumin 2.4L, Globulin 4.8, Albumin/Globulin Ratio 0.5L 07/13/17 10:25: Arterial Blood pH 7.433, Arterial Blood Partial Pressure CO2 43.7, Arterial Blood Partial Pressure O2 74.0L, Arterial Blood HCO3 28.6H, Arterial Blood Oxygen Saturation 95.2, Arterial Blood Base Excess 3.8, Anthony Test Positive Height (Feet): 5 Height (Inches): 11.00 Weight (Pounds): 131 Cardiovascular: normal rate Abdomen: no organomegaly Michael Simon MD Jul 13, 2017 20:34
--- NOTE | 2017-07-13 20:45 | Cardiology Progress Note ---
Assessment/Plan Assessment/Plan 1. Recurrent respiratory failure, s/p bronchoscopy, worsening left lung collapse , got re-intubated. 2. Septic shock, on dopmaine gtt at 5 mcg/kg/min, keep MAP >65 mmHg 3. Normal LV systolic function with LVEF at 60-65%. 4. Dual chamber pacemaker implantation, currently intrinsic atrial and ventricular activity. Subjective Subjective Got intubated. Sinus rhythm at 84. On dopamine gtt at 5mcg/kg/min Objective Last 24 Hour Vital Signs Date Time Temp Pulse Resp B/P (MAP) Pulse Ox O2 Delivery O2 Flow Rate FiO2 07/13/17 19:11 79 16 55 07/13/17 19:00 82 17 90/54 100 Mechanical Ventilator 55 07/13/17 18:00 83 16 88/54 100 Mechanical Ventilator 55 07/13/17 17:09 74 16 55 07/13/17 17:00 84 19 92/66 98 Mechanical Ventilator 55 07/13/17 16:00 94 07/13/17 16:00 55 07/13/17 16:00 98.3 102 19 90/49 98 Mechanical Ventilator 55 07/13/17 15:35 94 16 55 07/13/17 15:00 104 19 89/51 98 Mechanical Ventilator 55 07/13/17 14:00 95 20 93/57 98 Mechanical Ventilator 55 07/13/17 13:24 92 16 55 07/13/17 13:00 99 20 103/58 98 Mechanical Ventilator 55 07/13/17 12:00 110 07/13/17 12:00 98.0 107 19 103/58 98 Mechanical Ventilator 55 07/13/17 11:36 55 07/13/17 11:33 116 17 55 07/13/17 11:00 55 07/13/17 11:00 110 20 104/68 98 Mechanical Ventilator 100 07/13/17 10:00 100 07/13/17 10:00 130 19 131/64 98 Mechanical Ventilator 100 07/13/17 09:00 120 19 120/70 98 Mechanical Ventilator 100 07/13/17 09:00 100 07/13/17 08:45 126 18 100 07/13/17 08:00 76 07/13/17 08:00 97.8 79 20 90/49 98 Bi-pap 30 07/13/17 07:32 78 22 93 Facial 40 07/13/17 07:31 Bi-pap 40 07/13/17 07:30 93 Bi-pap 40 07/13/17 07:00 83 24 91/50 96 Bi-pap 30 07/13/17 06:00 80 24 89/50 96 Bi-pap 30 07/13/17 05:39 82 25 94 Facial 30 07/13/17 05:00 98.1 76 20 88/49 98 Bi-pap 40 07/13/17 04:00 75 07/13/17 04:00 77 24 84/48 96 Bi-pap 40 07/13/17 03:55 74 24 98 Facial 40 07/13/17 03:00 78 23 85/50 95 Bi-pap 40 07/13/17 02:00 78 20 100/53 96 Bi-pap 40 07/13/17 01:30 71 25 98 Facial 40 07/13/17 01:00 78 20 86/46 96 Bi-pap 40 07/13/17 00:00 98.1 82 20 90/47 98 Venturi Mask 50 07/13/17 00:00 78 07/12/17 23:00 74 20 85/43 95 Bi-pap 40 07/12/17 23:00 76 20 85/43 95 Bi-pap 40 07/12/17 22:34 76 25 97 Facial 40 07/12/17 22:30 77 20 83/46 97 Bi-pap 40 07/12/17 22:00 83 20 90/47 95 Bi-pap 40 07/12/17 21:57 83/49 07/12/17 21:30 75 20 87/49 100 Bi-pap 40 07/12/17 21:12 78 24 100 Facial 40 07/12/17 21:00 95 20 106/36 100 Venturi Mask 50 Intake and Output 07/13/17 07/14/17 19:00 07:00 Intake Total 1068.113 ml Output Total 790 ml Balance 278.113 ml IV Total 168.113 ml Tube Feeding 780 ml Other 120 ml Output Urine Total 790 ml # Bowel Movements 4 2D Echo: LVEF 60-65%, mild TR with RVSP at 33 mmHg Laboratory Tests Test 07/13/17 04:00 07/13/17 05:35 07/13/17 10:25 Arterial Blood pH 7.420 (7.350-7.450) 7.433 (7.350-7.450) Arterial Blood Partial Pressure CO2 46.8 mmHg (35.0-45.0) H 43.7 mmHg (35.0-45.0) Arterial Blood Partial Pressure O2 67.0 mmHg (75.0-100.0) L 74.0 mmHg (75.0-100.0) L Arterial Blood HCO3 29.9 mmol/L (22.0-26.0) H 28.6 mmol/L (22.0-26.0) H Arterial Blood Oxygen Saturation 90.7 % (92.0-98.0) L 95.2 % (92.0-98.0) Arterial Blood Base Excess 4.5 3.8 Anthony Test Positive Positive White Blood Count 9.3 K/UL (4.8-10.8) Red Blood Count 2.89 M/UL (4.70-6.10) L Hemoglobin 10.2 G/DL (14.2-18.0) L Hematocrit 29.6 % (42.0-52.0) L Mean Corpuscular Volume 102 FL (80-99) H Mean Corpuscular Hemoglobin 35.4 PG (27.0-31.0) H Mean Corpuscular Hemoglobin Concent 34.6 G/DL (32.0-36.0) Red Cell Distribution Width 13.1 % (11.6-14.8) Platelet Count 310 K/UL (150-450) Mean Platelet Volume 5.4 FL (6.5-10.1) L Neutrophils (%) (Auto) 60.8 % (45.0-75.0) Lymphocytes (%) (Auto) 29.1 % (20.0-45.0) Monocytes (%) (Auto) 4.4 % (1.0-10.0) Eosinophils (%) (Auto) 4.6 % (0.0-3.0) H Basophils (%) (Auto) 1.1 % (0.0-2.0) Sodium Level 140 MMOL/L (136-145) Potassium Level 4.3 MMOL/L (3.5-5.1) Chloride Level 104 MMOL/L (98-107) Carbon Dioxide Level 27 MMOL/L (21-32) Anion Gap 9 mmol/L (5-15) Blood Urea Nitrogen 23 mg/dL (7-18) H Creatinine 0.9 MG/DL (0.55-1.30) Estimat Glomerular Filtration Rate > 60 mL/min (>60) Glucose Level 116 MG/DL (74-106) H Calcium Level 9.6 MG/DL (8.5-10.1) Phosphorus Level 4.9 MG/DL (2.5-4.9) Magnesium Level 2.1 MG/DL (1.8-2.4) Total Bilirubin 0.3 MG/DL (0.2-1.0) Aspartate Amino Transf (AST/SGOT) 18 U/L (15-37) Alanine Aminotransferase (ALT/SGPT) 14 U/L (12-78) Alkaline Phosphatase 66 U/L (46-116) Total Protein 7.2 G/DL (6.4-8.2) Albumin 2.4 G/DL (3.4-5.0) L Globulin 4.8 g/dL Albumin/Globulin Ratio 0.5 (1.0-2.7) L Objective HEENT: Atraumatic and normocephalic. ENT, pupils are equal, round, and reactive to light and accommodation. Pale conjunctiva, intubated. NECK: JVP cannot be assessed. No carotid bruit. Carotid upstrokes 2+ bilaterally. LUNGS: Diminished BS both bases. CVS: Normal S1, S2. no murmurs, gallops or rubs. PMI is at fourth intercostal space in the midclavicular line. ABDOMEN: Soft, nontender, and nondistended. No hepatosplenomegaly. Positive bowel sounds. EXTREMITIES: No evidence of edema, clubbing, or cyanosis. CALLUM BARON Jul 13, 2017 20:45
[2017-07-13] MEDS: DOPamine 400mg/250ml 250 ML IV SCH (21:44)
[2017-07-14] VITALS (57 sets, daily range): BP systolic 78–116; BP diastolic 33–85
[2017-07-14] MEDS: LORazepam Inj 2mg/ml 1ml IV PRN (00:13)
[2017-07-14] MEDS: Meropenem 1 GM in NS 110 ML IVPB SCH ×3 (05:47→21:33)
[2017-07-14 06:14] LABS: BASOPHILS % (AUTO) 1.3 % (0.0-2.0); EOSINOPHILS % (AUTO) 7.1 % (0.0-3.0); HEMATOCRIT 30.3 % (42.0-52.0); LYMPHOCYTES % (AUTO) 25.8 % (20.0-45.0); MEAN CORPUSCULAR VOLUME 99 FL (80-99); MONOCYTES % (AUTO) 6.6 % (1.0-10.0); NEUTROPHILS % (AUTO) 59.1 % (45.0-75.0); PLATELET COUNT 316 K/UL (150-450); RED BLOOD COUNT 3.05 M/UL (4.70-6.10); RED CELL DISTRIBUTION WIDTH 12.7 % (11.6-14.8); WHITE BLOOD COUNT 8.4 K/UL (4.8-10.8)
[2017-07-14 06:43] LABS: ALANINE AMINOTRANSFERASE 12 U/L (12-78); ALBUMIN 2.3 G/DL (3.4-5.0); ALBUMIN/GLOBULIN RATIO 0.5 (1.0-2.7); ALKALINE PHOSPHATASE 73 U/L (46-116); ANION GAP 11 mmol/L (5-15); ASPARTATE AMINO TRANSFERASE 13 U/L (15-37); BILIRUBIN,TOTAL 0.3 MG/DL (0.2-1.0); BLOOD UREA NITROGEN 23 mg/dL (7-18); CALCIUM 9.2 MG/DL (8.5-10.1); CARBON DIOXIDE 26 MMOL/L (21-32); CHLORIDE 101 MMOL/L (98-107); PHOSPHORUS 4.4 MG/DL (2.5-4.9); POTASSIUM 3.8 MMOL/L (3.5-5.1); SODIUM 138 MMOL/L (136-145)
[2017-07-14] MEDS: DOPamine 400mg/250ml 250 ML IV SCH ×2 (07:30→16:22)
--- NOTE | 2017-07-14 08:45 | Diagnostic Imaging Report ---
Clinical history: As in header. Technique: Portable AP chest radiograph was obtained. Comparison: 07/13/17 at 11:14 AM Findings: The endotracheal tube has been retracted with the tip now at the level of the thoracic inlet. There is otherwise no significant interval change in the interval, allowing for differences in technique and positioning. Impression: 1. Interval retraction of endotracheal tube, now in the appropriate position. Enteric tube remains in the appropriate position. 2. Cardiomegaly and mild interstitial edema. Left chest cardiac conduction device. 3. Opacity in the left mid and lower lung may represent atelectasis, pneumonia or pleural effusion, unchanged.
--- NOTE | 2017-07-14 08:45 | Pulmonolgy Critical Care Note ---
Critical Care - Asmt/Plan Problems: (1) Septic shock (2) Acute encephalopathy (3) Acute respiratory failure (4) Collapse of left lung (5) UTI (urinary tract infection) (6) Schizophrenia (7) History of pacemaker (8) Fever Respiratory: monitor respiratory rate, adjust FIO2, CXR Cardiac: continue pressors Renal: F/U I&O Infectious Disease: check cultures Gastrointestinal: continue feedings/current rate Endocrine: monitor blood sugar, check TSH, check HgA1C, continue sliding scale insulin Hematologic: transfuse if hgb<8.5 Neurologic: PRN Ativan, keep patient comfortable Affect: PRN ativan Prophylaxis: Protonix Notes Reviewed: regional administrative assistant, cardio Discussed with: nurses, consultants, nurse outreach case managerconstruction quality control manager - Objective Last 24 Hour Vital Signs Date Time Temp Pulse Resp B/P (MAP) Pulse Ox O2 Delivery O2 Flow Rate FiO2 07/14/17 08:00 79 07/14/17 08:00 99.0 74 16 106/58 100 Mechanical Ventilator 55 07/14/17 07:30 92/56 07/14/17 07:30 68 16 116/54 100 Mechanical Ventilator 55 07/14/17 07:00 80 16 92/56 100 Mechanical Ventilator 55 07/14/17 07:00 98/58 07/14/17 06:54 89 16 55 07/14/17 06:30 80 16 91/53 100 Mechanical Ventilator 55 07/14/17 06:00 83 16 94/51 100 Mechanical Ventilator 55 07/14/17 06:00 91/51 07/14/17 05:30 86 16 91/52 100 Mechanical Ventilator 55 07/14/17 05:20 90 16 55 07/14/17 05:00 94 16 86/53 100 Mechanical Ventilator 55 07/14/17 05:00 88/58 07/14/17 04:30 96 16 97/54 100 Mechanical Ventilator 55 07/14/17 04:00 98.0 79 16 104/49 100 Mechanical Ventilator 55 07/14/17 04:00 104/53 07/14/17 04:00 79 07/14/17 03:30 77 16 90/46 100 Mechanical Ventilator 55 07/14/17 03:00 87/48 07/14/17 03:00 76 16 89/45 100 Mechanical Ventilator 55 07/14/17 03:00 76 17 55 07/14/17 02:30 75 16 96/50 100 Mechanical Ventilator 55 07/14/17 02:00 74 16 92/48 100 Mechanical Ventilator 55 07/14/17 02:00 90/48 07/14/17 01:30 79 16 95/48 100 Mechanical Ventilator 55 07/14/17 01:20 80 16 55 07/14/17 01:00 79 16 104/55 100 Mechanical Ventilator 55 07/14/17 01:00 104/56 07/14/17 00:30 82 16 92/50 100 Mechanical Ventilator 55 07/14/17 00:04 83 07/14/17 00:00 90/56 07/14/17 00:00 97.8 89 16 88/59 100 Mechanical Ventilator 55 07/13/17 23:30 76 16 89/53 100 Mechanical Ventilator 55 07/13/17 23:00 94/58 07/13/17 23:00 78 16 84/53 100 Mechanical Ventilator 55 07/13/17 22:55 81 16 55 07/13/17 22:30 80 16 95/58 100 Mechanical Ventilator 55 07/13/17 22:00 91/61 07/13/17 22:00 79 16 90/56 100 Mechanical Ventilator 55 07/13/17 21:44 87/57 07/13/17 21:30 77 16 96/53 100 Mechanical Ventilator 55 07/13/17 21:13 74 16 55 07/13/17 21:00 92/57 07/13/17 21:00 75 16 94/59 100 Mechanical Ventilator 55 07/13/17 20:30 87 16 86/54 100 Mechanical Ventilator 55 07/13/17 20:00 71/54 07/13/17 20:00 98.4 87 16 90/55 100 Mechanical Ventilator 55 07/13/17 19:30 87 16 71/54 100 Mechanical Ventilator 55 07/13/17 19:25 88 07/13/17 19:11 79 16 55 07/13/17 19:00 82 17 90/54 100 Mechanical Ventilator 55 07/13/17 18:00 83 16 88/54 100 Mechanical Ventilator 55 07/13/17 17:09 74 16 55 07/13/17 17:00 84 19 92/66 98 Mechanical Ventilator 55 07/13/17 16:00 94 07/13/17 16:00 55 07/13/17 16:00 98.3 102 19 90/49 98 Mechanical Ventilator 55 07/13/17 15:35 94 16 55 07/13/17 15:00 104 19 89/51 98 Mechanical Ventilator 55 07/13/17 14:00 95 20 93/57 98 Mechanical Ventilator 55 07/13/17 13:24 92 16 55 07/13/17 13:00 99 20 103/58 98 Mechanical Ventilator 55 07/13/17 12:00 110 07/13/17 12:00 98.0 107 19 103/58 98 Mechanical Ventilator 55 07/13/17 11:36 55 07/13/17 11:33 116 17 55 07/13/17 11:00 55 07/13/17 11:00 110 20 104/68 98 Mechanical Ventilator 100 07/13/17 10:00 100 07/13/17 10:00 130 19 131/64 98 Mechanical Ventilator 100 07/13/17 09:00 120 19 120/70 98 Mechanical Ventilator 100 07/13/17 09:00 100 07/13/17 08:45 126 18 100 Status: sedated Condition: critical HEENT: atraumatic Neck: full ROM Lungs: clear Heart: HR/BP stable, HR/BP unstable Abdomen: soft, non-tender Extremities: no C/C/E, edema Critical Care - Subjective ROS Limited/Unobtainable: Yes Interval Events: collapsed lung yesterday again FI02: 55 Vent Support Breath Rate: 16 Vent Support Mode: AC Vent Tidal Volume: 600 Sputum Amount: Small PIP: 21 Fluids: dopamin 14 Ug/kg Tube Feeding Amount: 65 I&O: Intake and Output 07/14/17 07/15/17 19:00 07:00 Intake Total 100 ml Output Total 100 ml Balance 0 ml Free Water 100 ml Tube Feeding 0 ml Output Urine Total 100 ml CXR: loss of volume ET-Tube: 8.0 ET Position: 21 Labs: Laboratory Tests Test 07/13/17 10:25 07/14/17 05:30 07/14/17 06:54 Arterial Blood pH 7.433 (7.350-7.450) 7.480 (7.350-7.450) Arterial Blood Partial Pressure CO2 43.7 mmHg (35.0-45.0) 36.4 mmHg (35.0-45.0) Arterial Blood Partial Pressure O2 74.0 mmHg (75.0-100.0) L 150.4 mmHg (75.0-100.0) H Arterial Blood HCO3 28.6 mmol/L (22.0-26.0) H 26.5 mmol/L (22.0-26.0) H Arterial Blood Oxygen Saturation 95.2 % (92.0-98.0) 98.7 % (92.0-98.0) H Arterial Blood Base Excess 3.8 3.0 Anthony Test Positive Positive White Blood Count 8.4 K/UL (4.8-10.8) Red Blood Count 3.05 M/UL (4.70-6.10) L Hemoglobin 11.0 G/DL (14.2-18.0) L Hematocrit 30.3 % (42.0-52.0) L Mean Corpuscular Volume 99 FL (80-99) Mean Corpuscular Hemoglobin 36.0 PG (27.0-31.0) H Mean Corpuscular Hemoglobin Concent 36.2 G/DL (32.0-36.0) H Red Cell Distribution Width 12.7 % (11.6-14.8) Platelet Count 316 K/UL (150-450) Mean Platelet Volume 5.7 FL (6.5-10.1) L Neutrophils (%) (Auto) 59.1 % (45.0-75.0) Lymphocytes (%) (Auto) 25.8 % (20.0-45.0) Monocytes (%) (Auto) 6.6 % (1.0-10.0) Eosinophils (%) (Auto) 7.1 % (0.0-3.0) H Basophils (%) (Auto) 1.3 % (0.0-2.0) Sodium Level 138 MMOL/L (136-145) Potassium Level 3.8 MMOL/L (3.5-5.1) Chloride Level 101 MMOL/L (98-107) Carbon Dioxide Level 26 MMOL/L (21-32) Anion Gap 11 mmol/L (5-15) Blood Urea Nitrogen 23 mg/dL (7-18) H Creatinine 1.0 MG/DL (0.55-1.30) Estimat Glomerular Filtration Rate > 60 mL/min (>60) Glucose Level 132 MG/DL (74-106) H Calcium Level 9.2 MG/DL (8.5-10.1) Phosphorus Level 4.4 MG/DL (2.5-4.9) Magnesium Level 2.0 MG/DL (1.8-2.4) Total Bilirubin 0.3 MG/DL (0.2-1.0) Aspartate Amino Transf (AST/SGOT) 13 U/L (15-37) L Alanine Aminotransferase (ALT/SGPT) 12 U/L (12-78) Alkaline Phosphatase 73 U/L (46-116) Total Protein 7.2 G/DL (6.4-8.2) Albumin 2.3 G/DL (3.4-5.0) L Globulin 4.9 g/dL Albumin/Globulin Ratio 0.5 (1.0-2.7) L GWEN MARTE Jul 14, 2017 08:45
[2017-07-14] MEDS ORDERED: Sterile Water Irrig 1000ml IRRIG ONE (08:52)
[2017-07-14] MEDS ORDERED: Tubing IV Secondary IV ONE (08:52)
[2017-07-14] MEDS ORDERED: NS 275ml ONE (08:52)
[2017-07-14] MEDS: Pantoprazole Inj IV SCH (09:26)
[2017-07-14] MEDS: Docusate 100mg cap ORAL SCH (09:27)
[2017-07-14] MEDS: Theophylline ER 100mg ORAL SCH ×2 (09:27→20:46)
[2017-07-14] MEDS: carBAMazepine 200mg tab ORAL SCH ×4 (09:27→20:46)
[2017-07-14] MEDS: Dyna-Hex 2% Top Sol 2oz TOPIC SCH (09:28)
[2017-07-14] MEDS: Heparin 5000 units/ml inj SUBQ SCH ×2 (09:32→20:47)
--- NOTE | 2017-07-14 10:42 | Diagnostic Imaging Report ---
Clinical history: Acute dyspnea Technique: Portable AP chest radiograph was obtained. Comparison: 07/13/17 Findings: Left base aeration appears mildly improved with persistent focal confluent opacity suspicious for small-moderate pleural effusion with adjacent atelectasis or pneumonia. There is otherwise no significant interval change in the interval, allowing for differences in technique and positioning. Impression: 1. Endotracheal tube and enteric tube are in the appropriate position. Left chest cardiac conduction device remains stable. 2. Interval improvement of left basilar aeration with persistent but diminished airspace opacity suspicious for small-moderate pleural effusion with adjacent atelectasis or pneumonia. 3. Cardiomegaly and mild interstitial edema.
--- NOTE | 2017-07-14 11:01 | Nephrology Progress Note ---
Assessment/Plan Assessment 1. hypokalemia resolved 2. respiratory failure 3. hypotension 4. hypomagnesemia Plan plan to give NS bolus monitoring out put continue iv antibiotic monitoring renal function monitoring electrolyte replace as need avoid any NSAID Subjective Constitutional: Reports: no symptoms HEENT: Reports: no symptoms Genitourinary: Reports: no symptoms Neurologic/Psychiatric: Reports: no symptoms Subjective intubated on dopamine on ivf 50 cc/h Objective Objective Last 24 Hour Vital Signs Date Time Temp Pulse Resp B/P (MAP) Pulse Ox O2 Delivery O2 Flow Rate FiO2 07/14/17 10:52 96 16 55 07/14/17 10:00 73 16 93/53 100 Mechanical Ventilator 55 07/14/17 10:00 55 07/14/17 09:30 73 16 96/53 100 Mechanical Ventilator 55 07/14/17 09:00 80 16 86/47 100 Mechanical Ventilator 55 07/14/17 08:39 98 16 55 07/14/17 08:30 81 16 87/48 100 Mechanical Ventilator 55 07/14/17 08:00 79 07/14/17 08:00 99.0 74 16 106/58 100 Mechanical Ventilator 55 07/14/17 07:30 92/56 07/14/17 07:30 68 16 116/54 100 Mechanical Ventilator 55 07/14/17 07:00 80 16 92/56 100 Mechanical Ventilator 55 07/14/17 07:00 98/58 07/14/17 06:54 89 16 55 07/14/17 06:30 80 16 91/53 100 Mechanical Ventilator 55 07/14/17 06:00 83 16 94/51 100 Mechanical Ventilator 55 07/14/17 06:00 91/51 07/14/17 05:30 86 16 91/52 100 Mechanical Ventilator 55 07/14/17 05:20 90 16 55 07/14/17 05:00 94 16 86/53 100 Mechanical Ventilator 55 07/14/17 05:00 88/58 07/14/17 04:30 96 16 97/54 100 Mechanical Ventilator 55 07/14/17 04:00 98.0 79 16 104/49 100 Mechanical Ventilator 55 07/14/17 04:00 104/53 07/14/17 04:00 79 07/14/17 03:30 77 16 90/46 100 Mechanical Ventilator 55 07/14/17 03:00 87/48 07/14/17 03:00 76 16 89/45 100 Mechanical Ventilator 55 07/14/17 03:00 76 17 55 07/14/17 02:30 75 16 96/50 100 Mechanical Ventilator 55 07/14/17 02:00 74 16 92/48 100 Mechanical Ventilator 55 07/14/17 02:00 90/48 07/14/17 01:30 79 16 95/48 100 Mechanical Ventilator 55 07/14/17 01:20 80 16 55 07/14/17 01:00 79 16 104/55 100 Mechanical Ventilator 55 07/14/17 01:00 104/56 07/14/17 00:30 82 16 92/50 100 Mechanical Ventilator 55 07/14/17 00:04 83 07/14/17 00:00 90/56 07/14/17 00:00 97.8 89 16 88/59 100 Mechanical Ventilator 55 07/13/17 23:30 76 16 89/53 100 Mechanical Ventilator 55 07/13/17 23:00 94/58 07/13/17 23:00 78 16 84/53 100 Mechanical Ventilator 55 07/13/17 22:55 81 16 55 07/13/17 22:30 80 16 95/58 100 Mechanical Ventilator 55 07/13/17 22:00 91/61 07/13/17 22:00 79 16 90/56 100 Mechanical Ventilator 55 07/13/17 21:44 87/57 07/13/17 21:30 77 16 96/53 100 Mechanical Ventilator 55 07/13/17 21:13 74 16 55 07/13/17 21:00 92/57 07/13/17 21:00 75 16 94/59 100 Mechanical Ventilator 55 07/13/17 20:30 87 16 86/54 100 Mechanical Ventilator 55 07/13/17 20:00 71/54 07/13/17 20:00 98.4 87 16 90/55 100 Mechanical Ventilator 55 07/13/17 19:30 87 16 71/54 100 Mechanical Ventilator 55 07/13/17 19:25 88 07/13/17 19:11 79 16 55 07/13/17 19:00 82 17 90/54 100 Mechanical Ventilator 55 07/13/17 18:00 83 16 88/54 100 Mechanical Ventilator 55 07/13/17 17:09 74 16 55 07/13/17 17:00 84 19 92/66 98 Mechanical Ventilator 55 07/13/17 16:00 94 10/28/17 16:00 55 07/13/17 16:00 98.3 102 19 90/49 98 Mechanical Ventilator 55 07/13/17 15:35 94 16 55 07/13/17 15:00 104 19 89/51 98 Mechanical Ventilator 55 07/13/17 14:00 95 20 93/57 98 Mechanical Ventilator 55 07/13/17 13:24 92 16 55 07/13/17 13:00 99 20 103/58 98 Mechanical Ventilator 55 07/13/17 12:00 110 07/13/17 12:00 98.0 107 19 103/58 98 Mechanical Ventilator 55 07/13/17 11:36 55 07/13/17 11:33 116 17 55 07/13/17 11:00 55 07/13/17 11:00 110 20 104/68 98 Mechanical Ventilator 100 Intake and Output 07/14/17 07/15/17 19:00 07:00 Intake Total 295 ml Output Total 400 ml Balance -105 ml Free Water 100 ml Tube Feeding 195 ml Output Urine Total 400 ml Laboratory Tests 07/14/17 05:30: White Blood Count 8.4, Red Blood Count 3.05L, Hemoglobin 11.0L, Hematocrit 30.3L , Mean Corpuscular Volume 99, Mean Corpuscular Hemoglobin 36.0H, Mean Corpuscular Hemoglobin Concent 36.2H, Red Cell Distribution Width 12.7, Platelet Count 316, Mean Platelet Volume 5.7L, Neutrophils (%) (Auto) 59.1, Lymphocytes (%) (Auto) 25.8, Monocytes (%) (Auto) 6.6, Eosinophils (%) (Auto) 7.1H, Basophils (%) (Auto) 1.3, Sodium Level 138, Potassium Level 3.8, Chloride Level 101, Carbon Dioxide Level 26, Anion Gap 11, Blood Urea Nitrogen 23H, Creatinine 1.0, Estimat Glomerular Filtration Rate > 60, Glucose Level 132H, Calcium Level 9.2, Phosphorus Level 4.4, Magnesium Level 2.0, Total Bilirubin 0.3, Aspartate Amino Transf (AST/SGOT) 13L, Alanine Aminotransferase (ALT/SGPT) 12, Alkaline Phosphatase 73, Total Protein 7.2, Albumin 2.3L, Globulin 4.9, Albumin/Globulin Ratio 0.5L 10/29/17 06:54: Arterial Blood pH 7.480H, Arterial Blood Partial Pressure CO2 36.4, Arterial Blood Partial Pressure O2 150.4H, Arterial Blood HCO3 26.5H, Arterial Blood Oxygen Saturation 98.7H, Arterial Blood Base Excess 3.0, Anthony Test Positive Height (Feet): 5 Height (Inches): 11.00 Weight (Pounds): 175 Objective HEAD AND NECK: No JVP. No LAD. No thyromegaly. Extraocular movements intact. Pupils are reactive to light and accommodation. LUNGS: Clear to auscultation. CARDIAC: Regular rate and rhythm. S1 and S2. No murmur. No rub. ABDOMEN: Soft, nontender, and nondistended. EXTREMITIES: No edema. No clubbing. No cyanosis. NEUROLOGIC: The patient opened up his eyes, not following verbal commands. RANCHO SYKES Jul 14, 2017 11:01
[2017-07-14] MEDS: Vancomycin 1250mg/D5W 250ml IVPB SCH (13:47)
--- NOTE | 2017-07-14 18:33 | Infectious Diseases Prog Note ---
Assessment/Plan Problems: (1) HCAP (healthcare-associated pneumonia) Assessment & Plan: due to left lung collapse again, S/P reintubation, continue meropenem and vancomycin since he developed left lung consolidation after his lung collapsed again , pending sputum culture , monitor CXR, and WBC, continue nebulizers as needed (2) Acute respiratory failure Assessment & Plan: due to left lung collapse , S/P re-intubation and mechanical ventilation. 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 , due to mucous plug, S/P bronchoscopy x2 , may need bronchial stent pulmonary is following (5) UTI (urinary tract infection) Assessment & Plan: with MDR Providencia stuartii and craig, await urine culture , and continue meropenem to treat for two weeks Subjective ROS Limited/Unobtainable: Yes Allergies: Coded Allergies: CHLORPROMAZINE (Verified Allergy, Unknown, 06/23/17) ERYTHROMYCIN BASE (Verified Allergy, Unknown, 06/23/17) Uncoded Allergies: TAPE (Allergy, Unknown, 06/23/17) Subjective he is intubated again on mechanical ventilation , due to left lung collapse again, not in distress , no fever , no diarrhea, on pressor Objective Vital Signs Last 24 Hour Vital Signs Date Time Temp Pulse Resp B/P (MAP) Pulse Ox O2 Delivery O2 Flow Rate FiO2 07/14/17 18:27 66 16 55 07/14/17 18:00 73 16 114/48 100 Mechanical Ventilator 55 07/14/17 18:00 114/48 07/14/17 17:30 68 16 89/45 100 Mechanical Ventilator 55 07/14/17 17:00 78/45 07/14/17 17:00 75 16 78/67 100 Mechanical Ventilator 55 07/14/17 16:49 73 16 55 07/14/17 16:30 73 16 103/46 100 Mechanical Ventilator 55 07/14/17 16:22 112/58 07/14/17 16:00 98.4 69 16 93/33 100 Mechanical Ventilator 55 07/14/17 16:00 72 07/14/17 16:00 93/33 07/14/17 15:30 69 16 94/53 100 Mechanical Ventilator 55 07/14/17 15:00 94/33 07/14/17 15:00 77 16 99/55 100 Mechanical Ventilator 55 07/14/17 14:51 82 16 55 07/14/17 14:30 81 16 110/60 100 Mechanical Ventilator 55 07/14/17 14:00 84 16 98/58 100 Mechanical Ventilator 55 07/14/17 14:00 110/60 07/14/17 13:30 75 16 100/61 100 Mechanical Ventilator 55 07/14/17 13:00 84 18 97/52 100 Mechanical Ventilator 55 07/14/17 13:00 98/48 07/14/17 12:52 96 16 55 07/14/17 12:30 75 18 98/48 98 Mechanical Ventilator 55 07/14/17 12:00 73 07/14/17 12:00 98.9 75 18 91/51 100 Mechanical Ventilator 55 07/14/17 11:30 72 18 88/72 98 Mechanical Ventilator 55 07/14/17 11:00 90/43 07/14/17 11:00 72 18 90/46 100 Mechanical Ventilator 55 07/14/17 10:52 96 16 55 07/14/17 10:00 73 16 93/53 100 Mechanical Ventilator 55 07/14/17 10:00 96/53 07/14/17 10:00 55 07/14/17 09:30 73 16 96/53 100 Mechanical Ventilator 55 07/14/17 09:00 86/47 07/14/17 09:00 80 16 86/47 100 Mechanical Ventilator 55 07/14/17 08:39 98 16 55 07/14/17 08:30 81 16 87/48 100 Mechanical Ventilator 55 07/14/17 08:00 79 07/14/17 08:00 106/58 07/14/17 08:00 99.0 74 16 106/58 100 Mechanical Ventilator 55 07/14/17 07:30 92/56 07/14/17 07:30 68 16 116/54 100 Mechanical Ventilator 55 07/14/17 07:00 80 16 92/56 100 Mechanical Ventilator 55 07/14/17 07:00 98/58 07/14/17 06:54 89 16 55 07/14/17 06:30 80 16 91/53 100 Mechanical Ventilator 55 07/14/17 06:00 83 16 94/51 100 Mechanical Ventilator 55 07/14/17 06:00 91/51 07/14/17 05:30 86 16 91/52 100 Mechanical Ventilator 55 07/14/17 05:20 90 16 55 07/14/17 05:00 94 16 86/53 100 Mechanical Ventilator 55 07/14/17 05:00 88/58 07/14/17 04:30 96 16 97/54 100 Mechanical Ventilator 55 07/14/17 04:00 98.0 79 16 104/49 100 Mechanical Ventilator 55 07/14/17 04:00 104/53 07/14/17 04:00 79 07/14/17 03:30 77 16 90/46 100 Mechanical Ventilator 55 07/14/17 03:00 87/48 07/14/17 03:00 76 16 89/45 100 Mechanical Ventilator 55 07/14/17 03:00 76 17 55 07/14/17 02:30 75 16 96/50 100 Mechanical Ventilator 55 07/14/17 02:00 74 16 92/48 100 Mechanical Ventilator 55 07/14/17 02:00 90/48 07/14/17 01:30 79 16 95/48 100 Mechanical Ventilator 55 07/14/17 01:20 80 16 55 07/14/17 01:00 79 16 104/55 100 Mechanical Ventilator 55 07/14/17 01:00 104/56 07/14/17 00:30 82 16 92/50 100 Mechanical Ventilator 55 07/14/17 00:04 83 07/14/17 00:00 90/56 07/14/17 00:00 97.8 89 16 88/59 100 Mechanical Ventilator 55 07/13/17 23:30 76 16 89/53 100 Mechanical Ventilator 55 07/13/17 23:00 94/58 07/13/17 23:00 78 16 84/53 100 Mechanical Ventilator 55 07/13/17 22:55 81 16 55 07/13/17 22:30 80 16 95/58 100 Mechanical Ventilator 55 07/13/17 22:00 91/61 07/13/17 22:00 79 16 90/56 100 Mechanical Ventilator 55 07/13/17 21:44 87/57 07/13/17 21:30 77 16 96/53 100 Mechanical Ventilator 55 07/13/17 21:13 74 16 55 07/13/17 21:00 92/57 07/13/17 21:00 75 16 94/59 100 Mechanical Ventilator 55 07/13/17 20:30 87 16 86/54 100 Mechanical Ventilator 55 07/13/17 20:00 71/54 07/13/17 20:00 98.4 87 16 90/55 100 Mechanical Ventilator 55 07/13/17 19:30 87 16 71/54 100 Mechanical Ventilator 55 07/13/17 19:25 88 07/13/17 19:11 79 16 55 07/13/17 19:00 82 17 90/54 100 Mechanical Ventilator 55 Height (Feet): 5 Height (Inches): 11.00 Weight (Pounds): 175 General Appearance: WD/WN, no acute distress HEENT: normocephalic, atraumatic, anicteric, mucous membranes moist Respiratory/Chest: chest wall non-tender, normal breath sounds, no respiratory distress, no accessory muscle use, decreased breath sounds, crackles/rales Cardiovascular: normal peripheral pulses, normal rate, regular rhythm, no gallop/murmur, no JVD Abdomen: normal bowel sounds, soft, non tender, non distended, no mass, no scars Genitourinary: normal external genitalia Extremities: no cyanosis, no clubbing Skin: no rash, no lesions, no ulcers Lymphatic: no neck adenopathy, no groin adenopathy Microbiology Date/Time Source Procedure Growth Status 07/13/17 15:10 Indwelling Cath Urine Culture - Preliminary Resulted Laboratory Tests Test 07/14/17 05:30 07/14/17 06:54 White Blood Count 8.4 K/UL (4.8-10.8) Red Blood Count 3.05 M/UL (4.70-6.10) L Hemoglobin 11.0 G/DL (14.2-18.0) L Hematocrit 30.3 % (42.0-52.0) L Mean Corpuscular Volume 99 FL (80-99) Mean Corpuscular Hemoglobin 36.0 PG (27.0-31.0) H Mean Corpuscular Hemoglobin Concent 36.2 G/DL (32.0-36.0) H Red Cell Distribution Width 12.7 % (11.6-14.8) Platelet Count 316 K/UL (150-450) Mean Platelet Volume 5.7 FL (6.5-10.1) L Neutrophils (%) (Auto) 59.1 % (45.0-75.0) Lymphocytes (%) (Auto) 25.8 % (20.0-45.0) Monocytes (%) (Auto) 6.6 % (1.0-10.0) Eosinophils (%) (Auto) 7.1 % (0.0-3.0) H Basophils (%) (Auto) 1.3 % (0.0-2.0) Sodium Level 138 MMOL/L (136-145) Potassium Level 3.8 MMOL/L (3.5-5.1) Chloride Level 101 MMOL/L (98-107) Carbon Dioxide Level 26 MMOL/L (21-32) Anion Gap 11 mmol/L (5-15) Blood Urea Nitrogen 23 mg/dL (7-18) H Creatinine 1.0 MG/DL (0.55-1.30) Estimat Glomerular Filtration Rate > 60 mL/min (>60) Glucose Level 132 MG/DL (74-106) H Calcium Level 9.2 MG/DL (8.5-10.1) Phosphorus Level 4.4 MG/DL (2.5-4.9) Magnesium Level 2.0 MG/DL (1.8-2.4) Total Bilirubin 0.3 MG/DL (0.2-1.0) Aspartate Amino Transf (AST/SGOT) 13 U/L (15-37) L Alanine Aminotransferase (ALT/SGPT) 12 U/L (12-78) Alkaline Phosphatase 73 U/L (46-116) Total Protein 7.2 G/DL (6.4-8.2) Albumin 2.3 G/DL (3.4-5.0) L Globulin 4.9 g/dL Albumin/Globulin Ratio 0.5 (1.0-2.7) L Arterial Blood pH 7.480 (7.350-7.450) Arterial Blood Partial Pressure CO2 36.4 mmHg (35.0-45.0) Arterial Blood Partial Pressure O2 150.4 mmHg (75.0-100.0) H Arterial Blood HCO3 26.5 mmol/L (22.0-26.0) H Arterial Blood Oxygen Saturation 98.7 % (92.0-98.0) H Arterial Blood Base Excess 3.0 Anthony Test Positive Current Medications Medications (Trade) Dose Ordered Sig/Karen Route PRN Reason Start Time Stop Time Status Last Admin Dose Admin Carbamazepine (TEGretol) 200 mg FOUR TIMES A DAY ORAL 07/02/17 09:00 07/23/17 12:59 07/14/17 17:50 Chlorhexidine Gluconate (Cassandra-Hex 2%) 1 applic DAILY TOPIC 07/13/17 09:00 08/12/17 08:59 07/14/17 09:28 Dextrose (Dextrose 50%) STAT PRN IV Hypoglycemia 07/02/17 12:00 07/25/17 11:59 Docusate Sodium (Colace) 100 mg DAILY ORAL 07/02/17 09:00 07/29/17 08:59 07/14/17 09:27 Dopamine HCl/ Dextrose 250 ml @ 0 mls/hr Q24H IV 07/10/17 21:30 08/09/17 21:29 07/14/17 16:22 Heparin Sodium (Porcine) (Heparin 5000 units/ml) 5,000 units EVERY 12 HOURS SUBQ 07/02/17 09:00 07/23/17 20:59 07/14/17 09:32 Levetiracetam (Keppra) 500 mg Q12HR ORAL 07/02/17 09:00 07/23/17 20:59 07/14/17 09:27 Lorazepam (Ativan 2mg/ml 1ml) 2 mg Q4H PRN IV For Anxiety 07/13/17 08:45 07/20/17 08:44 07/14/17 00:13 Meropenem 1 gm/ Sodium Chloride 110 ml @ 220 mls/hr Q8HR IVPB 07/13/17 13:30 07/18/17 13:29 07/14/17 13:47 Morphine Sulfate (Morphine Sulfate) 4 mg Q4H PRN IVP PAIN 4-10 07/13/17 08:45 07/20/17 08:44 Nitroglycerin (Ntg) 0.4 mg Q5M X 3 DOSES PRN SL Prn Chest Pain 07/01/17 23:45 07/23/17 13:29 Olanzapine (ZyPREXA) 20 mg BEDTIME ORAL 07/02/17 21:00 07/24/17 08:59 07/13/17 21:15 Ondansetron HCl (Zofran) 4 mg Q6H PRN IVP Nausea & Vomiting 07/02/17 00:00 07/23/17 11:59 Pantoprazole (Protonix) 40 mg DAILY IV 07/13/17 09:00 08/12/17 08:59 07/14/17 09:26 Polyethylene Glycol (Miralax) 17 gm DAILYPRN PRN ORAL Constipation 07/13/17 08:15 08/12/17 08:14 07/13/17 09:25 Sodium Chloride 1,000 ml @ 50 mls/hr Q20H IV 07/14/17 09:00 08/13/17 08:59 07/14/17 09:28 Theophylline (Dane-Dur) 100 mg EVERY 12 HOURS ORAL 07/02/17 09:00 07/23/17 20:59 07/14/17 09:27 Vancomycin HCl (Vanco rx to dose) 1 ea DAILY PRN MISC Per rx protocol 07/13/17 12:15 08/12/17 12:14 Vancomycin HCl/ Dextrose 250 ml @ 166.667 mls/hr Q24H IVPB 07/14/17 14:30 07/19/17 14:29 07/14/17 13:47 Dafne Orourke M.D. Jul 14, 2017 18:33
--- NOTE | 2017-07-14 21:38 | General Progress Note ---
Assessment/Plan Problem List: (1) History of pacemaker ICD Codes: Z95.0 - Presence of cardiac pacemaker SNOMED: 912350664 (2) Schizophrenia ICD Codes: F20.9 - Schizophrenia, unspecified SNOMED: 55111765 (3) Limited mobility ICD Codes: Z74.09 - Other reduced mobility SNOMED: 3344089 (4) Acute respiratory failure ICD Codes: J96.00 - Acute respiratory failure, unspecified whether with hypoxia or hypercapnia SNOMED: 19719436 (5) Sepsis ICD Codes: A41.9 - Sepsis, unspecified organism SNOMED: 89477633 (6) HCAP (healthcare-associated pneumonia) ICD Codes: J18.9 - Pneumonia, unspecified organism SNOMED: 982525686 Assessment/Plan no acute event Subjective Allergies: Coded Allergies: CHLORPROMAZINE (Verified Allergy, Unknown, 06/23/17) ERYTHROMYCIN BASE (Verified Allergy, Unknown, 06/23/17) Uncoded Allergies: TAPE (Allergy, Unknown, 06/23/17) Objective Last 24 Hour Vital Signs Date Time Temp Pulse Resp B/P (MAP) Pulse Ox O2 Delivery O2 Flow Rate FiO2 07/14/17 20:00 93/55 07/14/17 19:00 68 16 92/44 100 Mechanical Ventilator 55 07/14/17 19:00 87/46 07/14/17 18:30 68 16 96/50 100 Mechanical Ventilator 55 07/14/17 18:27 66 16 55 07/14/17 18:00 73 16 114/48 100 Mechanical Ventilator 55 07/14/17 18:00 114/48 07/14/17 17:30 68 16 89/45 100 Mechanical Ventilator 55 07/14/17 17:00 78/45 07/14/17 17:00 75 16 78/67 100 Mechanical Ventilator 55 07/14/17 16:49 73 16 55 07/14/17 16:30 73 16 103/46 100 Mechanical Ventilator 55 07/14/17 16:22 112/58 07/14/17 16:00 98.4 69 16 93/33 100 Mechanical Ventilator 55 07/14/17 16:00 72 07/14/17 16:00 93/33 07/14/17 15:30 69 16 94/53 100 Mechanical Ventilator 55 07/14/17 15:00 94/33 07/14/17 15:00 77 16 99/55 100 Mechanical Ventilator 55 07/14/17 14:51 82 16 55 07/14/17 14:30 81 16 110/60 100 Mechanical Ventilator 55 07/14/17 14:00 84 16 98/58 100 Mechanical Ventilator 55 07/14/17 14:00 110/60 07/14/17 13:30 75 16 100/61 100 Mechanical Ventilator 55 07/14/17 13:00 84 18 97/52 100 Mechanical Ventilator 55 07/14/17 13:00 98/48 07/14/17 12:52 96 16 55 07/14/17 12:30 75 18 98/48 98 Mechanical Ventilator 55 07/14/17 12:00 73 07/14/17 12:00 98.9 75 18 91/51 100 Mechanical Ventilator 55 07/14/17 11:30 72 18 88/72 98 Mechanical Ventilator 55 07/14/17 11:00 90/43 07/14/17 11:00 72 18 90/46 100 Mechanical Ventilator 55 07/14/17 10:52 96 16 55 07/14/17 10:00 73 16 93/53 100 Mechanical Ventilator 55 07/14/17 10:00 96/53 07/14/17 10:00 55 07/14/17 09:30 73 16 96/53 100 Mechanical Ventilator 55 07/14/17 09:00 86/47 07/14/17 09:00 80 16 86/47 100 Mechanical Ventilator 55 07/14/17 08:39 98 16 55 07/14/17 08:30 81 16 87/48 100 Mechanical Ventilator 55 07/14/17 08:00 79 07/14/17 08:00 106/58 07/14/17 08:00 99.0 74 16 106/58 100 Mechanical Ventilator 55 07/14/17 07:30 92/56 07/14/17 07:30 68 16 116/54 100 Mechanical Ventilator 55 07/14/17 07:00 80 16 92/56 100 Mechanical Ventilator 55 07/14/17 07:00 98/58 07/14/17 06:54 89 16 55 07/14/17 06:30 80 16 91/53 100 Mechanical Ventilator 55 07/14/17 06:00 83 16 94/51 100 Mechanical Ventilator 55 07/14/17 06:00 91/51 07/14/17 05:30 86 16 91/52 100 Mechanical Ventilator 55 07/14/17 05:20 90 16 55 07/14/17 05:00 94 16 86/53 100 Mechanical Ventilator 55 07/14/17 05:00 88/58 07/14/17 04:30 96 16 97/54 100 Mechanical Ventilator 55 07/14/17 04:00 98.0 79 16 104/49 100 Mechanical Ventilator 55 07/14/17 04:00 104/53 07/14/17 04:00 79 07/14/17 03:30 77 16 90/46 100 Mechanical Ventilator 55 07/14/17 03:00 87/48 07/14/17 03:00 76 16 89/45 100 Mechanical Ventilator 55 07/14/17 03:00 76 17 55 07/14/17 02:30 75 16 96/50 100 Mechanical Ventilator 55 07/14/17 02:00 74 16 92/48 100 Mechanical Ventilator 55 07/14/17 02:00 90/48 07/14/17 01:30 79 16 95/48 100 Mechanical Ventilator 55 07/14/17 01:20 80 16 55 07/14/17 01:00 79 16 104/55 100 Mechanical Ventilator 55 07/14/17 01:00 104/56 07/14/17 00:30 82 16 92/50 100 Mechanical Ventilator 55 07/14/17 00:04 83 07/14/17 00:00 90/56 07/14/17 00:00 97.8 89 16 88/59 100 Mechanical Ventilator 55 07/13/17 23:30 76 16 89/53 100 Mechanical Ventilator 55 07/13/17 23:00 94/58 07/13/17 23:00 78 16 84/53 100 Mechanical Ventilator 55 07/13/17 22:55 81 16 55 07/13/17 22:30 80 16 95/58 100 Mechanical Ventilator 55 07/13/17 22:00 91/61 07/13/17 22:00 79 16 90/56 100 Mechanical Ventilator 55 07/13/17 21:44 87/57 Intake and Output 07/14/17 07/15/17 19:00 07:00 Intake Total 2226.251 ml 169.905 ml Output Total 1230 ml 75 ml Balance 996.251 ml 94.905 ml Free Water 200 ml 30 ml IV Total 1246.251 ml 74.905 ml Tube Feeding 780 ml 65 ml Output Urine Total 1230 ml 75 ml Laboratory Tests 07/14/17 05:30: White Blood Count 8.4, Red Blood Count 3.05L, Hemoglobin 11.0L, Hematocrit 30.3L , Mean Corpuscular Volume 99, Mean Corpuscular Hemoglobin 36.0H, Mean Corpuscular Hemoglobin Concent 36.2H, Red Cell Distribution Width 12.7, Platelet Count 316, Mean Platelet Volume 5.7L, Neutrophils (%) (Auto) 59.1, Lymphocytes (%) (Auto) 25.8, Monocytes (%) (Auto) 6.6, Eosinophils (%) (Auto) 7.1H, Basophils (%) (Auto) 1.3, Sodium Level 138, Potassium Level 3.8, Chloride Level 101, Carbon Dioxide Level 26, Anion Gap 11, Blood Urea Nitrogen 23H, Creatinine 1.0, Estimat Glomerular Filtration Rate > 60, Glucose Level 132H, Calcium Level 9.2, Phosphorus Level 4.4, Magnesium Level 2.0, Total Bilirubin 0.3, Aspartate Amino Transf (AST/SGOT) 13L, Alanine Aminotransferase (ALT/SGPT) 12, Alkaline Phosphatase 73, Total Protein 7.2, Albumin 2.3L, Globulin 4.9, Albumin/Globulin Ratio 0.5L 07/14/17 06:54: Arterial Blood pH 7.480H, Arterial Blood Partial Pressure CO2 36.4, Arterial Blood Partial Pressure O2 150.4H, Arterial Blood HCO3 26.5H, Arterial Blood Oxygen Saturation 98.7H, Arterial Blood Base Excess 3.0, Anthony Test Positive Height (Feet): 5 Height (Inches): 11.00 Weight (Pounds): 175 Cardiovascular: normal rate Michael Simon MD Jul 14, 2017 21:38
--- NOTE | 2017-07-14 21:38 | General Progress Note ---
Assessment/Plan Problem List: (1) History of pacemaker ICD Codes: Z95.0 - Presence of cardiac pacemaker SNOMED: 004038549 (2) Schizophrenia ICD Codes: F20.9 - Schizophrenia, unspecified SNOMED: 99836394 (3) Limited mobility ICD Codes: Z74.09 - Other reduced mobility SNOMED: 3809543 (4) Acute respiratory failure ICD Codes: J96.00 - Acute respiratory failure, unspecified whether with hypoxia or hypercapnia SNOMED: 58468026 (5) Sepsis ICD Codes: A41.9 - Sepsis, unspecified organism SNOMED: 09497008 (6) HCAP (healthcare-associated pneumonia) ICD Codes: J18.9 - Pneumonia, unspecified organism SNOMED: 449247937 Assessment/Plan no acute event Subjective Allergies: Coded Allergies: CHLORPROMAZINE (Verified Allergy, Unknown, 06/23/17) ERYTHROMYCIN BASE (Verified Allergy, Unknown, 06/23/17) Uncoded Allergies: TAPE (Allergy, Unknown, 06/23/17) Objective Last 24 Hour Vital Signs Date Time Temp Pulse Resp B/P (MAP) Pulse Ox O2 Delivery O2 Flow Rate FiO2 07/14/17 20:00 93/55 07/14/17 19:00 68 16 92/44 100 Mechanical Ventilator 55 07/14/17 19:00 87/46 07/14/17 18:30 68 16 96/50 100 Mechanical Ventilator 55 07/14/17 18:27 66 16 55 07/14/17 18:00 73 16 114/48 100 Mechanical Ventilator 55 07/14/17 18:00 114/48 07/14/17 17:30 68 16 89/45 100 Mechanical Ventilator 55 07/14/17 17:00 78/45 07/14/17 17:00 75 16 78/67 100 Mechanical Ventilator 55 07/14/17 16:49 73 16 55 07/14/17 16:30 73 16 103/46 100 Mechanical Ventilator 55 07/14/17 16:22 112/58 07/14/17 16:00 98.4 69 16 93/33 100 Mechanical Ventilator 55 07/14/17 16:00 72 07/14/17 16:00 93/33 07/14/17 15:30 69 16 94/53 100 Mechanical Ventilator 55 07/14/17 15:00 94/33 07/14/17 15:00 77 16 99/55 100 Mechanical Ventilator 55 07/14/17 14:51 82 16 55 07/14/17 14:30 81 16 110/60 100 Mechanical Ventilator 55 07/14/17 14:00 84 16 98/58 100 Mechanical Ventilator 55 07/14/17 14:00 110/60 07/14/17 13:30 75 16 100/61 100 Mechanical Ventilator 55 07/14/17 13:00 84 18 97/52 100 Mechanical Ventilator 55 07/14/17 13:00 98/48 07/14/17 12:52 96 16 55 07/14/17 12:30 75 18 98/48 98 Mechanical Ventilator 55 07/14/17 12:00 73 07/14/17 12:00 98.9 75 18 91/51 100 Mechanical Ventilator 55 07/14/17 11:30 72 18 88/72 98 Mechanical Ventilator 55 07/14/17 11:00 90/43 07/14/17 11:00 72 18 90/46 100 Mechanical Ventilator 55 07/14/17 10:52 96 16 55 07/14/17 10:00 73 16 93/53 100 Mechanical Ventilator 55 07/14/17 10:00 96/53 07/14/17 10:00 55 07/14/17 09:30 73 16 96/53 100 Mechanical Ventilator 55 07/14/17 09:00 86/47 07/14/17 09:00 80 16 86/47 100 Mechanical Ventilator 55 07/14/17 08:39 98 16 55 07/14/17 08:30 81 16 87/48 100 Mechanical Ventilator 55 07/14/17 08:00 79 07/14/17 08:00 106/58 07/14/17 08:00 99.0 74 16 106/58 100 Mechanical Ventilator 55 07/14/17 07:30 92/56 07/14/17 07:30 68 16 116/54 100 Mechanical Ventilator 55 07/14/17 07:00 80 16 92/56 100 Mechanical Ventilator 55 07/14/17 07:00 98/58 07/14/17 06:54 89 16 55 07/14/17 06:30 80 16 91/53 100 Mechanical Ventilator 55 07/14/17 06:00 83 16 94/51 100 Mechanical Ventilator 55 07/14/17 06:00 91/51 07/14/17 05:30 86 16 91/52 100 Mechanical Ventilator 55 07/14/17 05:20 90 16 55 07/14/17 05:00 94 16 86/53 100 Mechanical Ventilator 55 07/14/17 05:00 88/58 07/14/17 04:30 96 16 97/54 100 Mechanical Ventilator 55 07/14/17 04:00 98.0 79 16 104/49 100 Mechanical Ventilator 55 07/14/17 04:00 104/53 07/14/17 04:00 79 07/14/17 03:30 77 16 90/46 100 Mechanical Ventilator 55 07/14/17 03:00 87/48 07/14/17 03:00 76 16 89/45 100 Mechanical Ventilator 55 07/14/17 03:00 76 17 55 07/14/17 02:30 75 16 96/50 100 Mechanical Ventilator 55 07/14/17 02:00 74 16 92/48 100 Mechanical Ventilator 55 07/14/17 02:00 90/48 07/14/17 01:30 79 16 95/48 100 Mechanical Ventilator 55 07/14/17 01:20 80 16 55 07/14/17 01:00 79 16 104/55 100 Mechanical Ventilator 55 07/14/17 01:00 104/56 07/14/17 00:30 82 16 92/50 100 Mechanical Ventilator 55 07/14/17 00:04 83 07/14/17 00:00 90/56 07/14/17 00:00 97.8 89 16 88/59 100 Mechanical Ventilator 55 07/13/17 23:30 76 16 89/53 100 Mechanical Ventilator 55 07/13/17 23:00 94/58 07/13/17 23:00 78 16 84/53 100 Mechanical Ventilator 55 07/13/17 22:55 81 16 55 07/13/17 22:30 80 16 95/58 100 Mechanical Ventilator 55 07/13/17 22:00 91/61 07/13/17 22:00 79 16 90/56 100 Mechanical Ventilator 55 07/13/17 21:44 87/57 Intake and Output 07/14/17 07/15/17 19:00 07:00 Intake Total 2226.251 ml 169.905 ml Output Total 1230 ml 75 ml Balance 996.251 ml 94.905 ml Free Water 200 ml 30 ml IV Total 1246.251 ml 74.905 ml Tube Feeding 780 ml 65 ml Output Urine Total 1230 ml 75 ml Laboratory Tests 07/14/17 05:30: White Blood Count 8.4, Red Blood Count 3.05L, Hemoglobin 11.0L, Hematocrit 30.3L , Mean Corpuscular Volume 99, Mean Corpuscular Hemoglobin 36.0H, Mean Corpuscular Hemoglobin Concent 36.2H, Red Cell Distribution Width 12.7, Platelet Count 316, Mean Platelet Volume 5.7L, Neutrophils (%) (Auto) 59.1, Lymphocytes (%) (Auto) 25.8, Monocytes (%) (Auto) 6.6, Eosinophils (%) (Auto) 7.1H, Basophils (%) (Auto) 1.3, Sodium Level 138, Potassium Level 3.8, Chloride Level 101, Carbon Dioxide Level 26, Anion Gap 11, Blood Urea Nitrogen 23H, Creatinine 1.0, Estimat Glomerular Filtration Rate > 60, Glucose Level 132H, Calcium Level 9.2, Phosphorus Level 4.4, Magnesium Level 2.0, Total Bilirubin 0.3, Aspartate Amino Transf (AST/SGOT) 13L, Alanine Aminotransferase (ALT/SGPT) 12, Alkaline Phosphatase 73, Total Protein 7.2, Albumin 2.3L, Globulin 4.9, Albumin/Globulin Ratio 0.5L 07/14/17 06:54: Arterial Blood pH 7.480H, Arterial Blood Partial Pressure CO2 36.4, Arterial Blood Partial Pressure O2 150.4H, Arterial Blood HCO3 26.5H, Arterial Blood Oxygen Saturation 98.7H, Arterial Blood Base Excess 3.0, Anthony Test Positive Height (Feet): 5 Height (Inches): 11.00 Weight (Pounds): 175 Cardiovascular: normal rate Michael Simon MD Jul 14, 2017 21:38
--- NOTE | 2017-07-14 21:38 | General Progress Note ---
Assessment/Plan Problem List: (1) History of pacemaker ICD Codes: Z95.0 - Presence of cardiac pacemaker SNOMED: 135527560 (2) Schizophrenia ICD Codes: F20.9 - Schizophrenia, unspecified SNOMED: 87321592 (3) Limited mobility ICD Codes: Z74.09 - Other reduced mobility SNOMED: 0012553 (4) Acute respiratory failure ICD Codes: J96.00 - Acute respiratory failure, unspecified whether with hypoxia or hypercapnia SNOMED: 45456464 (5) Sepsis ICD Codes: A41.9 - Sepsis, unspecified organism SNOMED: 87026226 (6) HCAP (healthcare-associated pneumonia) ICD Codes: J18.9 - Pneumonia, unspecified organism SNOMED: 969651024 Assessment/Plan no acute event Subjective Allergies: Coded Allergies: CHLORPROMAZINE (Verified Allergy, Unknown, 06/23/17) ERYTHROMYCIN BASE (Verified Allergy, Unknown, 06/23/17) Uncoded Allergies: TAPE (Allergy, Unknown, 06/23/17) Objective Last 24 Hour Vital Signs Date Time Temp Pulse Resp B/P (MAP) Pulse Ox O2 Delivery O2 Flow Rate FiO2 07/14/17 20:00 93/55 07/14/17 19:00 68 16 92/44 100 Mechanical Ventilator 55 07/14/17 19:00 87/46 07/14/17 18:30 68 16 96/50 100 Mechanical Ventilator 55 07/14/17 18:27 66 16 55 07/14/17 18:00 73 16 114/48 100 Mechanical Ventilator 55 07/14/17 18:00 114/48 07/14/17 17:30 68 16 89/45 100 Mechanical Ventilator 55 07/14/17 17:00 78/45 07/14/17 17:00 75 16 78/67 100 Mechanical Ventilator 55 07/14/17 16:49 73 16 55 07/14/17 16:30 73 16 103/46 100 Mechanical Ventilator 55 07/14/17 16:22 112/58 07/14/17 16:00 98.4 69 16 93/33 100 Mechanical Ventilator 55 07/14/17 16:00 72 07/14/17 16:00 93/33 07/14/17 15:30 69 16 94/53 100 Mechanical Ventilator 55 07/14/17 15:00 94/33 07/14/17 15:00 77 16 99/55 100 Mechanical Ventilator 55 07/14/17 14:51 82 16 55 07/14/17 14:30 81 16 110/60 100 Mechanical Ventilator 55 07/14/17 14:00 84 16 98/58 100 Mechanical Ventilator 55 07/14/17 14:00 110/60 07/14/17 13:30 75 16 100/61 100 Mechanical Ventilator 55 07/14/17 13:00 84 18 97/52 100 Mechanical Ventilator 55 07/14/17 13:00 98/48 07/14/17 12:52 96 16 55 07/14/17 12:30 75 18 98/48 98 Mechanical Ventilator 55 07/14/17 12:00 73 07/14/17 12:00 98.9 75 18 91/51 100 Mechanical Ventilator 55 07/14/17 11:30 72 18 88/72 98 Mechanical Ventilator 55 07/14/17 11:00 90/43 07/14/17 11:00 72 18 90/46 100 Mechanical Ventilator 55 07/14/17 10:52 96 16 55 07/14/17 10:00 73 16 93/53 100 Mechanical Ventilator 55 07/14/17 10:00 96/53 07/14/17 10:00 55 07/14/17 09:30 73 16 96/53 100 Mechanical Ventilator 55 07/14/17 09:00 86/47 07/14/17 09:00 80 16 86/47 100 Mechanical Ventilator 55 07/14/17 08:39 98 16 55 07/14/17 08:30 81 16 87/48 100 Mechanical Ventilator 55 07/14/17 08:00 79 07/14/17 08:00 106/58 07/14/17 08:00 99.0 74 16 106/58 100 Mechanical Ventilator 55 07/14/17 07:30 92/56 07/14/17 07:30 68 16 116/54 100 Mechanical Ventilator 55 07/14/17 07:00 80 16 92/56 100 Mechanical Ventilator 55 07/14/17 07:00 98/58 07/14/17 06:54 89 16 55 07/14/17 06:30 80 16 91/53 100 Mechanical Ventilator 55 07/14/17 06:00 83 16 94/51 100 Mechanical Ventilator 55 07/14/17 06:00 91/51 07/14/17 05:30 86 16 91/52 100 Mechanical Ventilator 55 07/14/17 05:20 90 16 55 07/14/17 05:00 94 16 86/53 100 Mechanical Ventilator 55 07/14/17 05:00 88/58 07/14/17 04:30 96 16 97/54 100 Mechanical Ventilator 55 07/14/17 04:00 98.0 79 16 104/49 100 Mechanical Ventilator 55 07/14/17 04:00 104/53 07/14/17 04:00 79 07/14/17 03:30 77 16 90/46 100 Mechanical Ventilator 55 07/14/17 03:00 87/48 07/14/17 03:00 76 16 89/45 100 Mechanical Ventilator 55 07/14/17 03:00 76 17 55 07/14/17 02:30 75 16 96/50 100 Mechanical Ventilator 55 07/14/17 02:00 74 16 92/48 100 Mechanical Ventilator 55 07/14/17 02:00 90/48 07/14/17 01:30 79 16 95/48 100 Mechanical Ventilator 55 07/14/17 01:20 80 16 55 07/14/17 01:00 79 16 104/55 100 Mechanical Ventilator 55 07/14/17 01:00 104/56 07/14/17 00:30 82 16 92/50 100 Mechanical Ventilator 55 07/14/17 00:04 83 07/14/17 00:00 90/56 07/14/17 00:00 97.8 89 16 88/59 100 Mechanical Ventilator 55 07/13/17 23:30 76 16 89/53 100 Mechanical Ventilator 55 07/13/17 23:00 94/58 07/13/17 23:00 78 16 84/53 100 Mechanical Ventilator 55 07/13/17 22:55 81 16 55 07/13/17 22:30 80 16 95/58 100 Mechanical Ventilator 55 07/13/17 22:00 91/61 07/13/17 22:00 79 16 90/56 100 Mechanical Ventilator 55 07/13/17 21:44 87/57 Intake and Output 07/14/17 07/15/17 19:00 07:00 Intake Total 2226.251 ml 169.905 ml Output Total 1230 ml 75 ml Balance 996.251 ml 94.905 ml Free Water 200 ml 30 ml IV Total 1246.251 ml 74.905 ml Tube Feeding 780 ml 65 ml Output Urine Total 1230 ml 75 ml Laboratory Tests 07/14/17 05:30: White Blood Count 8.4, Red Blood Count 3.05L, Hemoglobin 11.0L, Hematocrit 30.3L , Mean Corpuscular Volume 99, Mean Corpuscular Hemoglobin 36.0H, Mean Corpuscular Hemoglobin Concent 36.2H, Red Cell Distribution Width 12.7, Platelet Count 316, Mean Platelet Volume 5.7L, Neutrophils (%) (Auto) 59.1, Lymphocytes (%) (Auto) 25.8, Monocytes (%) (Auto) 6.6, Eosinophils (%) (Auto) 7.1H, Basophils (%) (Auto) 1.3, Sodium Level 138, Potassium Level 3.8, Chloride Level 101, Carbon Dioxide Level 26, Anion Gap 11, Blood Urea Nitrogen 23H, Creatinine 1.0, Estimat Glomerular Filtration Rate > 60, Glucose Level 132H, Calcium Level 9.2, Phosphorus Level 4.4, Magnesium Level 2.0, Total Bilirubin 0.3, Aspartate Amino Transf (AST/SGOT) 13L, Alanine Aminotransferase (ALT/SGPT) 12, Alkaline Phosphatase 73, Total Protein 7.2, Albumin 2.3L, Globulin 4.9, Albumin/Globulin Ratio 0.5L 07/14/17 06:54: Arterial Blood pH 7.480H, Arterial Blood Partial Pressure CO2 36.4, Arterial Blood Partial Pressure O2 150.4H, Arterial Blood HCO3 26.5H, Arterial Blood Oxygen Saturation 98.7H, Arterial Blood Base Excess 3.0, Anthony Test Positive Height (Feet): 5 Height (Inches): 11.00 Weight (Pounds): 175 Cardiovascular: normal rate Michael Simon MD Jul 14, 2017 21:38
--- NOTE | 2017-07-14 23:32 | General Progress Note ---
Assessment/Plan Assessment/Plan Dementia schizophrenia encephalopathy -zyprexa -ativan Subjective Allergies: Coded Allergies: CHLORPROMAZINE (Verified Allergy, Unknown, 06/23/17) ERYTHROMYCIN BASE (Verified Allergy, Unknown, 06/23/17) Uncoded Allergies: TAPE (Allergy, Unknown, 06/23/17) Subjective nad calm and no agitation Objective Last 24 Hour Vital Signs Date Time Temp Pulse Resp B/P (MAP) Pulse Ox O2 Delivery O2 Flow Rate FiO2 07/14/17 23:15 69 16 91/45 100 Mechanical Ventilator 55 07/14/17 23:00 67 16 99/49 100 Mechanical Ventilator 55 07/14/17 23:00 99/49 07/14/17 22:45 69 16 98/49 100 Mechanical Ventilator 55 07/14/17 22:30 74 16 91/48 100 Mechanical Ventilator 55 07/14/17 22:15 72 16 88/49 100 Mechanical Ventilator 55 07/14/17 22:00 77 16 90/54 100 Mechanical Ventilator 55 07/14/17 22:00 90/53 07/14/17 21:45 69 16 90/54 100 Mechanical Ventilator 55 07/14/17 21:30 78 16 95/58 100 Mechanical Ventilator 55 07/14/17 21:15 99.8 74 16 84/46 100 Mechanical Ventilator 55 07/14/17 21:00 71 16 55 07/14/17 21:00 95/56 07/14/17 21:00 69 16 88/46 100 Mechanical Ventilator 55 07/14/17 20:45 72 16 88/45 100 Mechanical Ventilator 55 07/14/17 20:45 70 16 87/46 100 Mechanical Ventilator 55 07/14/17 20:30 72 16 89/48 100 Mechanical Ventilator 55 07/14/17 20:15 72 16 85/47 100 Mechanical Ventilator 55 07/14/17 20:00 93/55 07/14/17 20:00 72 07/14/17 20:00 55 07/14/17 20:00 72 16 87/46 100 Mechanical Ventilator 55 07/14/17 19:45 88 16 89/85 100 Mechanical Ventilator 55 07/14/17 19:30 71 16 102/47 100 Mechanical Ventilator 55 07/14/17 19:15 67 16 92/44 100 Mechanical Ventilator 55 07/14/17 19:00 68 16 92/44 100 Mechanical Ventilator 55 07/14/17 19:00 87/46 07/14/17 18:30 68 16 96/50 100 Mechanical Ventilator 55 07/14/17 18:27 66 16 55 07/14/17 18:00 73 16 114/48 100 Mechanical Ventilator 55 07/14/17 18:00 114/48 07/14/17 17:30 68 16 89/45 100 Mechanical Ventilator 55 07/14/17 17:00 78/45 07/14/17 17:00 75 16 78/67 100 Mechanical Ventilator 55 07/14/17 16:49 73 16 55 07/14/17 16:30 73 16 103/46 100 Mechanical Ventilator 55 07/14/17 16:22 112/58 07/14/17 16:00 98.4 69 16 93/33 100 Mechanical Ventilator 55 07/14/17 16:00 72 07/14/17 16:00 93/33 07/14/17 15:30 69 16 94/53 100 Mechanical Ventilator 55 07/14/17 15:00 94/33 07/14/17 15:00 77 16 99/55 100 Mechanical Ventilator 55 07/14/17 14:51 82 16 55 07/14/17 14:30 81 16 110/60 100 Mechanical Ventilator 55 07/14/17 14:00 84 16 98/58 100 Mechanical Ventilator 55 07/14/17 14:00 110/60 07/14/17 13:30 75 16 100/61 100 Mechanical Ventilator 55 07/14/17 13:00 84 18 97/52 100 Mechanical Ventilator 55 07/14/17 13:00 98/48 07/14/17 12:52 96 16 55 07/14/17 12:30 75 18 98/48 98 Mechanical Ventilator 55 07/14/17 12:00 73 07/14/17 12:00 98.9 75 18 91/51 100 Mechanical Ventilator 55 07/14/17 11:30 72 18 88/72 98 Mechanical Ventilator 55 07/14/17 11:00 90/43 07/14/17 11:00 72 18 90/46 100 Mechanical Ventilator 55 07/14/17 10:52 96 16 55 07/14/17 10:00 73 16 93/53 100 Mechanical Ventilator 55 07/14/17 10:00 96/53 07/14/17 10:00 55 07/14/17 09:30 73 16 96/53 100 Mechanical Ventilator 55 07/14/17 09:00 86/47 07/14/17 09:00 80 16 86/47 100 Mechanical Ventilator 55 07/14/17 08:39 98 16 55 07/14/17 08:30 81 16 87/48 100 Mechanical Ventilator 55 07/14/17 08:00 79 07/14/17 08:00 106/58 07/14/17 08:00 99.0 74 16 106/58 100 Mechanical Ventilator 55 07/14/17 07:30 92/56 07/14/17 07:30 68 16 116/54 100 Mechanical Ventilator 55 07/14/17 07:00 80 16 92/56 100 Mechanical Ventilator 55 07/14/17 07:00 98/58 07/14/17 06:54 89 16 55 07/14/17 06:30 80 16 91/53 100 Mechanical Ventilator 55 07/14/17 06:00 83 16 94/51 100 Mechanical Ventilator 55 07/14/17 06:00 91/51 07/14/17 05:30 86 16 91/52 100 Mechanical Ventilator 55 07/14/17 05:20 90 16 55 07/14/17 05:00 94 16 86/53 100 Mechanical Ventilator 55 07/14/17 05:00 88/58 07/14/17 04:30 96 16 97/54 100 Mechanical Ventilator 55 07/14/17 04:00 98.0 79 16 104/49 100 Mechanical Ventilator 55 07/14/17 04:00 104/53 07/14/17 04:00 79 07/14/17 03:30 77 16 90/46 100 Mechanical Ventilator 55 07/14/17 03:00 87/48 07/14/17 03:00 76 16 89/45 100 Mechanical Ventilator 55 07/14/17 03:00 76 17 55 07/14/17 02:30 75 16 96/50 100 Mechanical Ventilator 55 07/14/17 02:00 74 16 92/48 100 Mechanical Ventilator 55 07/14/17 02:00 90/48 07/14/17 01:30 79 16 95/48 100 Mechanical Ventilator 55 07/14/17 01:20 80 16 55 07/14/17 01:00 79 16 104/55 100 Mechanical Ventilator 55 07/14/17 01:00 104/56 07/14/17 00:30 82 16 92/50 100 Mechanical Ventilator 55 07/14/17 00:04 83 10/29/17 00:00 90/56 07/14/17 00:00 97.8 89 16 88/59 100 Mechanical Ventilator 55 Intake and Output 07/14/17 07/15/17 19:00 07:00 Intake Total 2226.251 ml 734.620 ml Output Total 1230 ml 375 ml Balance 996.251 ml 359.620 ml Free Water 200 ml 30 ml IV Total 1246.251 ml 384.620 ml Tube Feeding 780 ml 260 ml Other 60 ml Output Urine Total 1230 ml 375 ml Laboratory Tests 07/14/17 05:30: White Blood Count 8.4, Red Blood Count 3.05L, Hemoglobin 11.0L, Hematocrit 30.3L , Mean Corpuscular Volume 99, Mean Corpuscular Hemoglobin 36.0H, Mean Corpuscular Hemoglobin Concent 36.2H, Red Cell Distribution Width 12.7, Platelet Count 316, Mean Platelet Volume 5.7L, Neutrophils (%) (Auto) 59.1, Lymphocytes (%) (Auto) 25.8, Monocytes (%) (Auto) 6.6, Eosinophils (%) (Auto) 7.1H, Basophils (%) (Auto) 1.3, Sodium Level 138, Potassium Level 3.8, Chloride Level 101, Carbon Dioxide Level 26, Anion Gap 11, Blood Urea Nitrogen 23H, Creatinine 1.0, Estimat Glomerular Filtration Rate > 60, Glucose Level 132H, Calcium Level 9.2, Phosphorus Level 4.4, Magnesium Level 2.0, Total Bilirubin 0.3, Aspartate Amino Transf (AST/SGOT) 13L, Alanine Aminotransferase (ALT/SGPT) 12, Alkaline Phosphatase 73, Total Protein 7.2, Albumin 2.3L, Globulin 4.9, Albumin/Globulin Ratio 0.5L 07/14/17 06:54: Arterial Blood pH 7.480H, Arterial Blood Partial Pressure CO2 36.4, Arterial Blood Partial Pressure O2 150.4H, Arterial Blood HCO3 26.5H, Arterial Blood Oxygen Saturation 98.7H, Arterial Blood Base Excess 3.0, Anthony Test Positive Height (Feet): 5 Height (Inches): 11.00 Weight (Pounds): 175 General Appearance: no apparent distress, lethargic, confused Hlil Hare M.D. Jul 14, 2017 23:32
--- NOTE | 2017-07-14 23:33 | Geriatric Progress Note ---
Assessment/Plan Assessment/Plan schizophrenia encephalopathy cont zyprexa 20mg qhs Subjective Functional Changes: 07/13/17 Mood/Memory: Reports: prior hx, anxiety, depressed feelings Geriatric Geriatric Last 24 Hour Vital Signs Date Time Temp Pulse Resp B/P (MAP) Pulse Ox O2 Delivery O2 Flow Rate FiO2 07/14/17 23:15 69 16 91/45 100 Mechanical Ventilator 55 07/14/17 23:00 67 16 99/49 100 Mechanical Ventilator 55 07/14/17 23:00 99/49 07/14/17 22:45 69 16 98/49 100 Mechanical Ventilator 55 07/14/17 22:30 74 16 91/48 100 Mechanical Ventilator 55 07/14/17 22:15 72 16 88/49 100 Mechanical Ventilator 55 07/14/17 22:00 77 16 90/54 100 Mechanical Ventilator 55 07/14/17 22:00 90/53 07/14/17 21:45 69 16 90/54 100 Mechanical Ventilator 55 07/14/17 21:30 78 16 95/58 100 Mechanical Ventilator 55 07/14/17 21:15 99.8 74 16 84/46 100 Mechanical Ventilator 55 07/14/17 21:00 71 16 55 07/14/17 21:00 95/56 07/14/17 21:00 69 16 88/46 100 Mechanical Ventilator 55 07/14/17 20:45 72 16 88/45 100 Mechanical Ventilator 55 07/14/17 20:45 70 16 87/46 100 Mechanical Ventilator 55 07/14/17 20:30 72 16 89/48 100 Mechanical Ventilator 55 07/14/17 20:15 72 16 85/47 100 Mechanical Ventilator 55 07/14/17 20:00 93/55 07/14/17 20:00 72 07/14/17 20:00 55 07/14/17 20:00 72 16 87/46 100 Mechanical Ventilator 55 07/14/17 19:45 88 16 89/85 100 Mechanical Ventilator 55 07/14/17 19:30 71 16 102/47 100 Mechanical Ventilator 55 07/14/17 19:15 67 16 92/44 100 Mechanical Ventilator 55 07/14/17 19:00 68 16 92/44 100 Mechanical Ventilator 55 07/14/17 19:00 87/46 07/14/17 18:30 68 16 96/50 100 Mechanical Ventilator 55 07/14/17 18:27 66 16 55 07/14/17 18:00 73 16 114/48 100 Mechanical Ventilator 55 07/14/17 18:00 114/48 07/14/17 17:30 68 16 89/45 100 Mechanical Ventilator 55 07/14/17 17:00 78/45 07/14/17 17:00 75 16 78/67 100 Mechanical Ventilator 55 07/14/17 16:49 73 16 55 07/14/17 16:30 73 16 103/46 100 Mechanical Ventilator 55 07/14/17 16:22 112/58 07/14/17 16:00 98.4 69 16 93/33 100 Mechanical Ventilator 55 07/14/17 16:00 72 07/14/17 16:00 93/33 07/14/17 15:30 69 16 94/53 100 Mechanical Ventilator 55 07/14/17 15:00 94/33 07/14/17 15:00 77 16 99/55 100 Mechanical Ventilator 55 07/14/17 14:51 82 16 55 07/14/17 14:30 81 16 110/60 100 Mechanical Ventilator 55 07/14/17 14:00 84 16 98/58 100 Mechanical Ventilator 55 07/14/17 14:00 110/60 07/14/17 13:30 75 16 100/61 100 Mechanical Ventilator 55 07/14/17 13:00 84 18 97/52 100 Mechanical Ventilator 55 07/14/17 13:00 98/48 07/14/17 12:52 96 16 55 07/14/17 12:30 75 18 98/48 98 Mechanical Ventilator 55 07/14/17 12:00 73 07/14/17 12:00 98.9 75 18 91/51 100 Mechanical Ventilator 55 07/14/17 11:30 72 18 88/72 98 Mechanical Ventilator 55 07/14/17 11:00 90/43 07/14/17 11:00 72 18 90/46 100 Mechanical Ventilator 55 07/14/17 10:52 96 16 55 07/14/17 10:00 73 16 93/53 100 Mechanical Ventilator 55 07/14/17 10:00 96/53 07/14/17 10:00 55 07/14/17 09:30 73 16 96/53 100 Mechanical Ventilator 55 07/14/17 09:00 86/47 07/14/17 09:00 80 16 86/47 100 Mechanical Ventilator 55 07/14/17 08:39 98 16 55 07/14/17 08:30 81 16 87/48 100 Mechanical Ventilator 55 07/14/17 08:00 79 07/14/17 08:00 106/58 07/14/17 08:00 99.0 74 16 106/58 100 Mechanical Ventilator 55 07/14/17 07:30 92/56 07/14/17 07:30 68 16 116/54 100 Mechanical Ventilator 55 07/14/17 07:00 80 16 92/56 100 Mechanical Ventilator 55 07/14/17 07:00 98/58 07/14/17 06:54 89 16 55 07/14/17 06:30 80 16 91/53 100 Mechanical Ventilator 55 07/14/17 06:00 83 16 94/51 100 Mechanical Ventilator 55 07/14/17 06:00 91/51 07/14/17 05:30 86 16 91/52 100 Mechanical Ventilator 55 07/14/17 05:20 90 16 55 07/14/17 05:00 94 16 86/53 100 Mechanical Ventilator 55 07/14/17 05:00 88/58 07/14/17 04:30 96 16 97/54 100 Mechanical Ventilator 55 07/14/17 04:00 98.0 79 16 104/49 100 Mechanical Ventilator 55 07/14/17 04:00 104/53 07/14/17 04:00 79 07/14/17 03:30 77 16 90/46 100 Mechanical Ventilator 55 07/14/17 03:00 87/48 07/14/17 03:00 76 16 89/45 100 Mechanical Ventilator 55 07/14/17 03:00 76 17 55 07/14/17 02:30 75 16 96/50 100 Mechanical Ventilator 55 07/14/17 02:00 74 16 92/48 100 Mechanical Ventilator 55 07/14/17 02:00 90/48 07/14/17 01:30 79 16 95/48 100 Mechanical Ventilator 55 07/14/17 01:20 80 16 55 07/14/17 01:00 79 16 104/55 100 Mechanical Ventilator 55 07/14/17 01:00 104/56 07/14/17 00:30 82 16 92/50 100 Mechanical Ventilator 55 07/14/17 00:04 83 07/14/17 00:00 90/56 07/14/17 00:00 97.8 89 16 88/59 100 Mechanical Ventilator 55 Intake and Output 07/14/17 07/15/17 19:00 07:00 Intake Total 2226.251 ml 734.620 ml Output Total 1230 ml 375 ml Balance 996.251 ml 359.620 ml Free Water 200 ml 30 ml IV Total 1246.251 ml 384.620 ml Tube Feeding 780 ml 260 ml Other 60 ml Output Urine Total 1230 ml 375 ml Laboratory Tests Test 07/14/17 05:30 07/14/17 06:54 White Blood Count 8.4 K/UL (4.8-10.8) Red Blood Count 3.05 M/UL (4.70-6.10) L Hemoglobin 11.0 G/DL (14.2-18.0) L Hematocrit 30.3 % (42.0-52.0) L Mean Corpuscular Volume 99 FL (80-99) Mean Corpuscular Hemoglobin 36.0 PG (27.0-31.0) H Mean Corpuscular Hemoglobin Concent 36.2 G/DL (32.0-36.0) H Red Cell Distribution Width 12.7 % (11.6-14.8) Platelet Count 316 K/UL (150-450) Mean Platelet Volume 5.7 FL (6.5-10.1) L Neutrophils (%) (Auto) 59.1 % (45.0-75.0) Lymphocytes (%) (Auto) 25.8 % (20.0-45.0) Monocytes (%) (Auto) 6.6 % (1.0-10.0) Eosinophils (%) (Auto) 7.1 % (0.0-3.0) H Basophils (%) (Auto) 1.3 % (0.0-2.0) Sodium Level 138 MMOL/L (136-145) Potassium Level 3.8 MMOL/L (3.5-5.1) Chloride Level 101 MMOL/L (98-107) Carbon Dioxide Level 26 MMOL/L (21-32) Anion Gap 11 mmol/L (5-15) Blood Urea Nitrogen 23 mg/dL (7-18) H Creatinine 1.0 MG/DL (0.55-1.30) Estimat Glomerular Filtration Rate > 60 mL/min (>60) Glucose Level 132 MG/DL (74-106) H Calcium Level 9.2 MG/DL (8.5-10.1) Phosphorus Level 4.4 MG/DL (2.5-4.9) Magnesium Level 2.0 MG/DL (1.8-2.4) Total Bilirubin 0.3 MG/DL (0.2-1.0) Aspartate Amino Transf (AST/SGOT) 13 U/L (15-37) L Alanine Aminotransferase (ALT/SGPT) 12 U/L (12-78) Alkaline Phosphatase 73 U/L (46-116) Total Protein 7.2 G/DL (6.4-8.2) Albumin 2.3 G/DL (3.4-5.0) L Globulin 4.9 g/dL Albumin/Globulin Ratio 0.5 (1.0-2.7) L Arterial Blood pH 7.480 (7.350-7.450) Arterial Blood Partial Pressure CO2 36.4 mmHg (35.0-45.0) Arterial Blood Partial Pressure O2 150.4 mmHg (75.0-100.0) H Arterial Blood HCO3 26.5 mmol/L (22.0-26.0) H Arterial Blood Oxygen Saturation 98.7 % (92.0-98.0) H Arterial Blood Base Excess 3.0 Anthony Test Positive Current Medications Medications (Trade) Dose Ordered Sig/Karen Route PRN Reason Start Time Stop Time Status Last Admin Dose Admin Carbamazepine (TEGretol) 200 mg FOUR TIMES A DAY ORAL 07/02/17 09:00 07/23/17 12:59 07/14/17 20:46 Chlorhexidine Gluconate (Cassandra-Hex 2%) 1 applic DAILY TOPIC 07/13/17 09:00 08/12/17 08:59 07/14/17 09:28 Dextrose (Dextrose 50%) STAT PRN IV Hypoglycemia 07/02/17 12:00 07/25/17 11:59 Docusate Sodium (Colace) 100 mg DAILY ORAL 07/02/17 09:00 07/29/17 08:59 07/14/17 09:27 Dopamine HCl/ Dextrose 250 ml @ 0 mls/hr Q24H IV 07/10/17 21:30 08/09/17 21:29 07/14/17 16:22 Heparin Sodium (Porcine) (Heparin 5000 units/ml) 5,000 units EVERY 12 HOURS SUBQ 07/02/17 09:00 07/23/17 20:59 07/14/17 09:32 Levetiracetam (Keppra) 500 mg Q12HR ORAL 07/02/17 09:00 07/23/17 20:59 07/14/17 20:46 Lorazepam (Ativan 2mg/ml 1ml) 2 mg Q4H PRN IV For Anxiety 07/13/17 08:45 07/20/17 08:44 07/14/17 00:13 Meropenem 1 gm/ Sodium Chloride 110 ml @ 220 mls/hr Q8HR IVPB 07/13/17 13:30 07/18/17 13:29 07/14/17 21:33 Morphine Sulfate (Morphine Sulfate) 4 mg Q4H PRN IVP PAIN 4-10 07/13/17 08:45 07/20/17 08:44 Nitroglycerin (Ntg) 0.4 mg Q5M X 3 DOSES PRN SL Prn Chest Pain 07/01/17 23:45 07/23/17 13:29 Olanzapine (ZyPREXA) 20 mg BEDTIME ORAL 07/02/17 21:00 07/24/17 08:59 07/14/17 20:46 Ondansetron HCl (Zofran) 4 mg Q6H PRN IVP Nausea & Vomiting 07/02/17 00:00 07/23/17 11:59 Pantoprazole (Protonix) 40 mg DAILY IV 07/13/17 09:00 08/12/17 08:59 07/14/17 09:26 Polyethylene Glycol (Miralax) 17 gm DAILYPRN PRN ORAL Constipation 07/13/17 08:15 08/12/17 08:14 07/13/17 09:25 Sodium Chloride 1,000 ml @ 50 mls/hr Q20H IV 07/14/17 09:00 08/13/17 08:59 07/14/17 09:28 Theophylline (Dane-Dur) 100 mg EVERY 12 HOURS ORAL 07/02/17 09:00 07/23/17 20:59 07/14/17 20:46 Vancomycin HCl (Vanco rx to dose) 1 ea DAILY PRN MISC Per rx protocol 07/13/17 12:15 08/12/17 12:14 Vancomycin HCl/ Dextrose 250 ml @ 166.667 mls/hr Q24H IVPB 07/14/17 14:30 07/19/17 14:29 07/14/17 13:47 Height (Feet): 5 Height (Inches): 11.00 Weight (Pounds): 175 Hill Hare M.D. Jul 14, 2017 23:33
[2017-07-15] VITALS (96 sets, daily range): BP systolic 63–148; BP diastolic 43–77
[2017-07-15] MEDS: DOPamine 400mg/250ml 250 ML IV SCH ×3 (02:10→21:10)
[2017-07-15 04:44] LABS: BASOPHILS % (AUTO) 1.5 % (0.0-2.0); EOSINOPHILS % (AUTO) 9.2 % (0.0-3.0); HEMATOCRIT 30.4 % (42.0-52.0); HEMOGLOBIN 10.4 G/DL (14.2-18.0); LYMPHOCYTES % (AUTO) 27.5 % (20.0-45.0); MEAN CORPUSCULAR VOLUME 100 FL (80-99); MONOCYTES % (AUTO) 5.5 % (1.0-10.0); NEUTROPHILS % (AUTO) 56.3 % (45.0-75.0); PLATELET COUNT 287 K/UL (150-450); RED BLOOD COUNT 3.05 M/UL (4.70-6.10); RED CELL DISTRIBUTION WIDTH 12.8 % (11.6-14.8); WHITE BLOOD COUNT 8.1 K/UL (4.8-10.8)
[2017-07-15 05:31] LABS: ALANINE AMINOTRANSFERASE 12 U/L (12-78); ALBUMIN 2.3 G/DL (3.4-5.0); ALBUMIN/GLOBULIN RATIO 0.5 (1.0-2.7); ALKALINE PHOSPHATASE 74 U/L (46-116); ANION GAP 10 mmol/L (5-15); ASPARTATE AMINO TRANSFERASE 12 U/L (15-37); BILIRUBIN,TOTAL 0.2 MG/DL (0.2-1.0); BLOOD UREA NITROGEN 24 mg/dL (7-18); CALCIUM 9.4 MG/DL (8.5-10.1); CARBON DIOXIDE 26 MMOL/L (21-32); CHLORIDE 104 MMOL/L (98-107); CREATININE 0.9 MG/DL (0.55-1.30); PHOSPHORUS 3.9 MG/DL (2.5-4.9); SODIUM 140 MMOL/L (136-145)
[2017-07-15] MEDS: Meropenem 1 GM in NS 110 ML IVPB SCH ×3 (05:40→22:36)
[2017-07-15] MEDS: Pantoprazole Inj IV SCH (10:10)
[2017-07-15] MEDS: Docusate 100mg cap ORAL SCH (10:10)
[2017-07-15] MEDS: carBAMazepine 200mg tab ORAL SCH ×4 (10:10→21:02)
[2017-07-15] MEDS: Dyna-Hex 2% Top Sol 2oz TOPIC SCH (10:10)
[2017-07-15] MEDS: Theophylline ER 100mg ORAL SCH ×2 (10:11→21:02)
[2017-07-15] MEDS: Heparin 5000 units/ml inj SUBQ SCH ×2 (10:17→21:06)
--- NOTE | 2017-07-15 10:58 | Diagnostic Imaging Report ---
Indication: DYSPNEA Technique: One view of the chest Comparison: 07/14/2017 Findings: Left lung volume loss, left basilar opacity persists, unchanged. Stable satisfactory positions of nasogastric tube, endotracheal tube, pacemaker. Right lung and pleural space remain clear. Findings are overall unchanged Impression: Unchanged, over one day, findings as above.
--- NOTE | 2017-07-15 11:06 | Pulmonolgy Critical Care Note ---
Critical Care - Asmt/Plan Problems: (1) Septic shock (2) Acute encephalopathy (3) Acute respiratory failure (4) Collapse of left lung (5) UTI (urinary tract infection) (6) Schizophrenia (7) History of pacemaker (8) Fever Respiratory: monitor respiratory rate, adjust FIO2, CXR Cardiac: continue to monitor HR/BP Renal: F/U I&O, increase IV fluid Infectious Disease: check cultures Gastrointestinal: continue feedings/current rate, adjust feedings Endocrine: monitor blood sugar, continue sliding scale insulin Hematologic: monitor H/H, transfuse if hgb<8.5 Neurologic: PRN Morphine, keep patient comfortable Prophylaxis: Protonix Disposition: keep in ICU 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, 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, 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 with: nurses, consultants, family preservation caseworkerbiofuels technology 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 - Objective Last 24 Hour Vital Signs Date Time Temp Pulse Resp B/P (MAP) Pulse Ox O2 Delivery O2 Flow Rate FiO2 07/15/17 09:19 75 16 30 07/15/17 08:00 90 07/15/17 07:08 71 16 30 07/15/17 07:00 72 16 101/44 100 Mechanical Ventilator 30 07/15/17 07:00 101/44 07/15/17 06:45 71 16 85/47 100 Mechanical Ventilator 30 07/15/17 06:30 76 16 92/52 100 Mechanical Ventilator 30 07/15/17 06:15 68 16 90/47 100 Mechanical Ventilator 30 07/15/17 06:00 93/47 07/15/17 06:00 70 16 93/47 100 Mechanical Ventilator 30 07/15/17 05:45 69 16 84/45 100 Mechanical Ventilator 30 07/15/17 05:30 69 16 96/47 100 Mechanical Ventilator 30 07/15/17 05:21 77 16 30 07/15/17 05:15 72 16 80/45 100 Mechanical Ventilator 30 07/15/17 05:00 98.2 77 16 82/43 100 Mechanical Ventilator 30 07/15/17 05:00 82/43 07/15/17 04:45 80 16 86/44 100 Mechanical Ventilator 30 07/15/17 04:30 95 16 90/44 100 Mechanical Ventilator 30 07/15/17 04:15 80 16 92/51 100 Mechanical Ventilator 30 07/15/17 04:00 91 16 105/44 100 Mechanical Ventilator 30 07/15/17 04:00 30 07/15/17 04:00 87 07/15/17 04:00 92/51 07/15/17 03:45 70 16 86/44 100 Mechanical Ventilator 30 07/15/17 03:30 72 16 87/44 100 Mechanical Ventilator 30 07/15/17 03:22 78 16 30 07/15/17 03:22 30 07/15/17 03:15 70 16 83/43 100 Mechanical Ventilator 30 07/15/17 03:00 70 16 83/44 100 Mechanical Ventilator 30 07/15/17 03:00 83/43 07/15/17 02:45 69 16 81/44 100 Mechanical Ventilator 55 07/15/17 02:30 68 16 87/45 100 Mechanical Ventilator 55 07/15/17 02:15 69 16 93/48 100 Mechanical Ventilator 55 07/15/17 02:10 96/47 07/15/17 02:00 69 16 93/46 100 Mechanical Ventilator 55 07/15/17 02:00 93/46 07/15/17 01:45 68 16 93/46 99 Mechanical Ventilator 55 07/15/17 01:30 66 16 98/48 99 Mechanical Ventilator 55 07/15/17 01:15 69 16 96/47 99 Mechanical Ventilator 55 07/15/17 01:00 73 16 55 07/15/17 01:00 98.8 67 16 91/47 99 Mechanical Ventilator 55 07/15/17 00:45 69 16 97/47 99 Mechanical Ventilator 55 07/15/17 00:30 66 16 91/48 100 Mechanical Ventilator 55 07/15/17 00:15 63 16 90/48 100 Mechanical Ventilator 55 07/15/17 00:00 75 07/15/17 00:00 91/48 07/15/17 00:00 55 07/15/17 00:00 66 16 63/45 100 Mechanical Ventilator 55 07/14/17 23:45 63 16 90/48 100 Mechanical Ventilator 55 07/14/17 23:36 70 16 55 07/14/17 23:30 64 16 88/51 100 Mechanical Ventilator 55 07/14/17 23:15 69 16 91/45 100 Mechanical Ventilator 55 07/14/17 23:00 67 16 99/49 100 Mechanical Ventilator 55 07/14/17 23:00 99/49 07/14/17 22:45 69 16 98/49 100 Mechanical Ventilator 55 07/14/17 22:30 74 16 91/48 100 Mechanical Ventilator 55 07/14/17 22:15 72 16 88/49 100 Mechanical Ventilator 55 07/14/17 22:00 77 16 90/54 100 Mechanical Ventilator 55 07/14/17 22:00 90/53 07/14/17 21:45 69 16 90/54 100 Mechanical Ventilator 55 07/14/17 21:30 78 16 95/58 100 Mechanical Ventilator 55 07/14/17 21:15 99.8 74 16 84/46 100 Mechanical Ventilator 55 07/14/17 21:00 71 16 55 07/14/17 21:00 95/56 07/14/17 21:00 69 16 88/46 100 Mechanical Ventilator 55 07/14/17 20:45 72 16 88/45 100 Mechanical Ventilator 55 07/14/17 20:45 70 16 87/46 100 Mechanical Ventilator 55 07/14/17 20:30 72 16 89/48 100 Mechanical Ventilator 55 07/14/17 20:15 72 16 85/47 100 Mechanical Ventilator 55 07/14/17 20:00 93/55 07/14/17 20:00 72 07/14/17 20:00 55 07/14/17 20:00 72 16 87/46 100 Mechanical Ventilator 55 07/14/17 19:45 88 16 89/85 100 Mechanical Ventilator 55 07/14/17 19:30 71 16 102/47 100 Mechanical Ventilator 55 07/14/17 19:15 67 16 92/44 100 Mechanical Ventilator 55 07/14/17 19:00 68 16 92/44 100 Mechanical Ventilator 55 07/14/17 19:00 87/46 07/14/17 18:30 68 16 96/50 100 Mechanical Ventilator 55 07/14/17 18:27 66 16 55 07/14/17 18:00 73 16 114/48 100 Mechanical Ventilator 55 07/14/17 18:00 114/48 07/14/17 17:30 68 16 89/45 100 Mechanical Ventilator 55 07/14/17 17:00 78/45 07/14/17 17:00 75 16 78/67 100 Mechanical Ventilator 55 07/14/17 16:49 73 16 55 07/14/17 16:30 73 16 103/46 100 Mechanical Ventilator 55 07/14/17 16:22 112/58 07/14/17 16:00 98.4 69 16 93/33 100 Mechanical Ventilator 55 07/14/17 16:00 72 07/14/17 16:00 93/33 07/14/17 15:30 69 16 94/53 100 Mechanical Ventilator 55 07/14/17 15:00 94/33 07/14/17 15:00 77 16 99/55 100 Mechanical Ventilator 55 07/14/17 14:51 82 16 55 07/14/17 14:30 81 16 110/60 100 Mechanical Ventilator 55 07/14/17 14:00 84 16 98/58 100 Mechanical Ventilator 55 07/14/17 14:00 110/60 07/14/17 13:30 75 16 100/61 100 Mechanical Ventilator 55 07/14/17 13:00 84 18 97/52 100 Mechanical Ventilator 55 07/14/17 13:00 98/48 07/14/17 12:52 96 16 55 07/14/17 12:30 75 18 98/48 98 Mechanical Ventilator 55 07/14/17 12:00 73 07/14/17 12:00 98.9 75 18 91/51 100 Mechanical Ventilator 55 07/14/17 11:30 72 18 88/72 98 Mechanical Ventilator 55 Status: awake Condition: critical HEENT: atraumatic Lungs: clear Heart: HR/BP stable, regular Abdomen: active bowel sounds Extremities: no C/C/E Decubiti: stage Micro: Microbiology Date/Time Source Procedure Growth Status 07/13/17 15:00 Blood Blood Culture - Preliminary NO GROWTH AFTER 24 HOURS Resulted 07/13/17 15:00 Blood Blood Culture - Preliminary NO GROWTH AFTER 24 HOURS Resulted 07/13/17 15:10 Indwelling Cath Urine Culture - Preliminary Gram Negative Bacillus 1 Streptococcus Species Resulted Critical Care - Subjective ROS Limited/Unobtainable: Yes Condition: critical EKG Rhythm: Sinus Rhythm FI02: 30 Vent Support Breath Rate: 16 Vent Support Mode: AC Vent Tidal Volume: 600 Sputum Amount: Moderate PIP: 18 Tube Feeding Amount: 65 CXR: slightly better, ET tube in right position ET-Tube: 8.0 ET Position: 21 Labs: Laboratory Tests Test 07/15/17 03:45 07/15/17 09:20 White Blood Count 8.1 K/UL (4.8-10.8) Red Blood Count 3.05 M/UL (4.70-6.10) L Hemoglobin 10.4 G/DL (14.2-18.0) L Hematocrit 30.4 % (42.0-52.0) L Mean Corpuscular Volume 100 FL (80-99) H Mean Corpuscular Hemoglobin 34.1 PG (27.0-31.0) H Mean Corpuscular Hemoglobin Concent 34.2 G/DL (32.0-36.0) Red Cell Distribution Width 12.8 % (11.6-14.8) Platelet Count 287 K/UL (150-450) Mean Platelet Volume 5.4 FL (6.5-10.1) L Neutrophils (%) (Auto) 56.3 % (45.0-75.0) Lymphocytes (%) (Auto) 27.5 % (20.0-45.0) Monocytes (%) (Auto) 5.5 % (1.0-10.0) Eosinophils (%) (Auto) 9.2 % (0.0-3.0) H Basophils (%) (Auto) 1.5 % (0.0-2.0) Sodium Level 140 MMOL/L (136-145) Potassium Level 4.0 MMOL/L (3.5-5.1) Chloride Level 104 MMOL/L (98-107) Carbon Dioxide Level 26 MMOL/L (21-32) Anion Gap 10 mmol/L (5-15) Blood Urea Nitrogen 24 mg/dL (7-18) H Creatinine 0.9 MG/DL (0.55-1.30) Estimat Glomerular Filtration Rate > 60 mL/min (>60) Glucose Level 126 MG/DL (74-106) H Calcium Level 9.4 MG/DL (8.5-10.1) Phosphorus Level 3.9 MG/DL (2.5-4.9) Magnesium Level 2.2 MG/DL (1.8-2.4) Total Bilirubin 0.2 MG/DL (0.2-1.0) Aspartate Amino Transf (AST/SGOT) 12 U/L (15-37) L Alanine Aminotransferase (ALT/SGPT) 12 U/L (12-78) Alkaline Phosphatase 74 U/L (46-116) Total Protein 7.0 G/DL (6.4-8.2) Albumin 2.3 G/DL (3.4-5.0) L Globulin 4.7 g/dL Albumin/Globulin Ratio 0.5 (1.0-2.7) L Arterial Blood pH 7.468 (7.350-7.450) Arterial Blood Partial Pressure CO2 36.2 mmHg (35.0-45.0) Arterial Blood Partial Pressure O2 92.6 mmHg (75.0-100.0) Arterial Blood HCO3 25.6 mmol/L (22.0-26.0) Arterial Blood Oxygen Saturation 97.2 % (92.0-98.0) Arterial Blood Base Excess 2.0 Anthony Test Positive GWEN MARTE Jul 15, 2017 11:06
--- NOTE | 2017-07-15 13:56 | Cardiology Progress Note ---
Assessment/Plan Assessment/Plan 1. Recurrent respiratory failure, s/p bronchoscopy, recurrence of left lung collapse, intubated again, plan is to perform tracheostomy. 2. Septic shock, dopamine gtt increased to 12 mcg/kg/min, keep MAP >65 mmHg 3. Normal LV systolic function with LVEF at 60-65%. 4. Dual chamber pacemaker implantation, currently intrinsic atrial and ventricular activities. Subjective Subjective Intubated. Sinus rhythm at 78. On dopamine gtt at 12mcg/kg/min Objective Last 24 Hour Vital Signs Date Time Temp Pulse Resp B/P (MAP) Pulse Ox O2 Delivery O2 Flow Rate FiO2 07/15/17 13:09 69 16 30 07/15/17 13:04 66/36 07/15/17 12:00 83 07/15/17 12:00 30 07/15/17 11:04 99 16 30 07/15/17 09:19 75 16 30 07/15/17 08:00 90 07/15/17 08:00 30 07/15/17 07:08 71 16 30 07/15/17 07:00 72 16 101/44 100 Mechanical Ventilator 30 07/15/17 07:00 101/44 07/15/17 06:45 71 16 85/47 100 Mechanical Ventilator 30 07/15/17 06:30 76 16 92/52 100 Mechanical Ventilator 30 07/15/17 06:15 68 16 90/47 100 Mechanical Ventilator 30 07/15/17 06:00 93/47 07/15/17 06:00 70 16 93/47 100 Mechanical Ventilator 30 07/15/17 05:45 69 16 84/45 100 Mechanical Ventilator 07/15/17 05:30 69 16 96/47 100 Mechanical Ventilator 30 07/15/17 05:21 77 16 30 07/15/17 05:15 72 16 80/45 100 Mechanical Ventilator 30 07/15/17 05:00 98.2 77 16 82/43 100 Mechanical Ventilator 30 07/15/17 05:00 82/43 07/15/17 04:45 80 16 86/44 100 Mechanical Ventilator 30 07/15/17 04:30 95 16 90/44 100 Mechanical Ventilator 30 07/15/17 04:15 80 16 92/51 100 Mechanical Ventilator 30 07/15/17 04:00 91 16 105/44 100 Mechanical Ventilator 30 07/15/17 04:00 30 07/15/17 04:00 87 10/30/17 04:00 92/51 07/15/17 03:45 70 16 86/44 100 Mechanical Ventilator 30 07/15/17 03:30 72 16 87/44 100 Mechanical Ventilator 30 07/15/17 03:22 78 16 30 07/15/17 03:22 30 07/15/17 03:15 70 16 83/43 100 Mechanical Ventilator 30 07/15/17 03:00 70 16 83/44 100 Mechanical Ventilator 30 07/15/17 03:00 83/43 07/15/17 02:45 69 16 81/44 100 Mechanical Ventilator 55 07/15/17 02:30 68 16 87/45 100 Mechanical Ventilator 55 07/15/17 02:15 69 16 93/48 100 Mechanical Ventilator 55 07/15/17 02:10 96/47 07/15/17 02:00 69 16 93/46 100 Mechanical Ventilator 55 07/15/17 02:00 93/46 07/15/17 01:45 68 16 93/46 99 Mechanical Ventilator 55 07/15/17 01:30 66 16 98/48 99 Mechanical Ventilator 55 07/15/17 01:15 69 16 96/47 99 Mechanical Ventilator 55 07/15/17 01:00 73 16 55 07/15/17 01:00 98.8 67 16 91/47 99 Mechanical Ventilator 55 07/15/17 00:45 69 16 97/47 99 Mechanical Ventilator 55 07/15/17 00:30 66 16 91/48 100 Mechanical Ventilator 55 07/15/17 00:15 63 16 90/48 100 Mechanical Ventilator 55 07/15/17 00:00 75 07/15/17 00:00 91/48 07/15/17 00:00 55 07/15/17 00:00 66 16 63/45 100 Mechanical Ventilator 55 07/14/17 23:45 63 16 90/48 100 Mechanical Ventilator 55 07/14/17 23:36 70 16 55 07/14/17 23:30 64 16 88/51 100 Mechanical Ventilator 55 07/14/17 23:15 69 16 91/45 100 Mechanical Ventilator 55 07/14/17 23:00 67 16 99/49 100 Mechanical Ventilator 55 07/14/17 23:00 99/49 07/14/17 22:45 69 16 98/49 100 Mechanical Ventilator 55 07/14/17 22:30 74 16 91/48 100 Mechanical Ventilator 55 07/14/17 22:15 72 16 88/49 100 Mechanical Ventilator 55 07/14/17 22:00 77 16 90/54 100 Mechanical Ventilator 55 07/14/17 22:00 90/53 07/14/17 21:45 69 16 90/54 100 Mechanical Ventilator 55 07/14/17 21:30 78 16 95/58 100 Mechanical Ventilator 55 07/14/17 21:15 99.8 74 16 84/46 100 Mechanical Ventilator 55 07/14/17 21:00 71 16 55 07/14/17 21:00 95/56 07/14/17 21:00 69 16 88/46 100 Mechanical Ventilator 55 07/14/17 20:45 72 16 88/45 100 Mechanical Ventilator 55 07/14/17 20:45 70 16 87/46 100 Mechanical Ventilator 55 07/14/17 20:30 72 16 89/48 100 Mechanical Ventilator 55 07/14/17 20:15 72 16 85/47 100 Mechanical Ventilator 55 07/14/17 20:00 93/55 07/14/17 20:00 72 07/14/17 20:00 55 07/14/17 20:00 72 16 87/46 100 Mechanical Ventilator 55 07/14/17 19:45 88 16 89/85 100 Mechanical Ventilator 55 07/14/17 19:30 71 16 102/47 100 Mechanical Ventilator 55 07/14/17 19:15 67 16 92/44 100 Mechanical Ventilator 55 07/14/17 19:00 68 16 92/44 100 Mechanical Ventilator 55 07/14/17 19:00 87/46 07/14/17 18:30 68 16 96/50 100 Mechanical Ventilator 55 07/14/17 18:27 66 16 55 07/14/17 18:00 73 16 114/48 100 Mechanical Ventilator 55 07/14/17 18:00 114/48 07/14/17 17:30 68 16 89/45 100 Mechanical Ventilator 55 07/14/17 17:00 78/45 07/14/17 17:00 75 16 78/67 100 Mechanical Ventilator 55 07/14/17 16:49 73 16 55 07/14/17 16:30 73 16 103/46 100 Mechanical Ventilator 55 07/14/17 16:22 112/58 07/14/17 16:00 98.4 69 16 93/33 100 Mechanical Ventilator 55 07/14/17 16:00 72 07/14/17 16:00 93/33 07/14/17 15:30 69 16 94/53 100 Mechanical Ventilator 55 07/14/17 15:00 94/33 07/14/17 15:00 77 16 99/55 100 Mechanical Ventilator 55 07/14/17 14:51 82 16 55 07/14/17 14:30 81 16 110/60 100 Mechanical Ventilator 55 07/14/17 14:00 84 16 98/58 100 Mechanical Ventilator 55 07/14/17 14:00 110/60 Intake and Output 07/15/17 07/16/17 19:00 07:00 Intake Total 530 ml Output Total 400 ml Balance 130 ml Free Water 100 ml Tube Feeding 390 ml Other 40 ml Output Urine Total 400 ml 2D Echo: LVEF 60-65%, mild TR with RVSP at 33 mmHg Laboratory Tests Test 07/15/17 03:45 07/15/17 09:20 White Blood Count 8.1 K/UL (4.8-10.8) Red Blood Count 3.05 M/UL (4.70-6.10) L Hemoglobin 10.4 G/DL (14.2-18.0) L Hematocrit 30.4 % (42.0-52.0) L Mean Corpuscular Volume 100 FL (80-99) H Mean Corpuscular Hemoglobin 34.1 PG (27.0-31.0) H Mean Corpuscular Hemoglobin Concent 34.2 G/DL (32.0-36.0) Red Cell Distribution Width 12.8 % (11.6-14.8) Platelet Count 287 K/UL (150-450) Mean Platelet Volume 5.4 FL (6.5-10.1) L Neutrophils (%) (Auto) 56.3 % (45.0-75.0) Lymphocytes (%) (Auto) 27.5 % (20.0-45.0) Monocytes (%) (Auto) 5.5 % (1.0-10.0) Eosinophils (%) (Auto) 9.2 % (0.0-3.0) H Basophils (%) (Auto) 1.5 % (0.0-2.0) Sodium Level 140 MMOL/L (136-145) Potassium Level 4.0 MMOL/L (3.5-5.1) Chloride Level 104 MMOL/L (98-107) Carbon Dioxide Level 26 MMOL/L (21-32) Anion Gap 10 mmol/L (5-15) Blood Urea Nitrogen 24 mg/dL (7-18) H Creatinine 0.9 MG/DL (0.55-1.30) Estimat Glomerular Filtration Rate > 60 mL/min (>60) Glucose Level 126 MG/DL (74-106) H Calcium Level 9.4 MG/DL (8.5-10.1) Phosphorus Level 3.9 MG/DL (2.5-4.9) Magnesium Level 2.2 MG/DL (1.8-2.4) Total Bilirubin 0.2 MG/DL (0.2-1.0) Aspartate Amino Transf (AST/SGOT) 12 U/L (15-37) L Alanine Aminotransferase (ALT/SGPT) 12 U/L (12-78) Alkaline Phosphatase 74 U/L (46-116) Total Protein 7.0 G/DL (6.4-8.2) Albumin 2.3 G/DL (3.4-5.0) L Globulin 4.7 g/dL Albumin/Globulin Ratio 0.5 (1.0-2.7) L Arterial Blood pH 7.468 (7.350-7.450) Arterial Blood Partial Pressure CO2 36.2 mmHg (35.0-45.0) Arterial Blood Partial Pressure O2 92.6 mmHg (75.0-100.0) Arterial Blood HCO3 25.6 mmol/L (22.0-26.0) Arterial Blood Oxygen Saturation 97.2 % (92.0-98.0) Arterial Blood Base Excess 2.0 Anthony Test Positive Microbiology Date/Time Source Procedure Growth Status 07/13/17 15:00 Blood Blood Culture - Preliminary NO GROWTH AFTER 24 HOURS Resulted 07/13/17 15:00 Blood Blood Culture - Preliminary NO GROWTH AFTER 24 HOURS Resulted 07/13/17 10:00 Sputum Expectorated Gram Stain - Final Resulted 07/13/17 10:00 Sputum Expectorated Sputum Culture Pending Resulted 07/13/17 15:10 Indwelling Cath Urine Culture - Preliminary Gram Negative Bacillus 1 Streptococcus Species Resulted Objective HEENT: Atraumatic and normocephalic. ENT, pupils are equal, round, and reactive to light and accommodation. Pale conjunctiva, intubated. NECK: JVP cannot be assessed. No carotid bruit. Carotid upstrokes 2+ bilaterally. LUNGS: Diminished BS both bases. CVS: Normal S1, S2. no murmurs, gallops or rubs. PMI is at fourth intercostal space in the midclavicular line. ABDOMEN: Soft, nontender, and nondistended. No hepatosplenomegaly. Positive bowel sounds. EXTREMITIES: No evidence of edema, clubbing, or cyanosis. CALLUM BARON Jul 15, 2017 13:56
[2017-07-15] MEDS: Vancomycin 1250mg/D5W 250ml IVPB SCH (14:03)
--- NOTE | 2017-07-15 15:26 | General Progress Note ---
Assessment/Plan Problem List: (1) History of pacemaker ICD Codes: Z95.0 - Presence of cardiac pacemaker SNOMED: 272659656 (2) Schizophrenia ICD Codes: F20.9 - Schizophrenia, unspecified SNOMED: 25187330 (3) Limited mobility ICD Codes: Z74.09 - Other reduced mobility SNOMED: 1512572 (4) Acute respiratory failure ICD Codes: J96.00 - Acute respiratory failure, unspecified whether with hypoxia or hypercapnia SNOMED: 75304811 (5) Sepsis ICD Codes: A41.9 - Sepsis, unspecified organism SNOMED: 30648878 (6) HCAP (healthcare-associated pneumonia) ICD Codes: J18.9 - Pneumonia, unspecified organism SNOMED: 351113040 Status: progressing Assessment/Plan pacemaker resp failure reviewed chart and labs no fever Subjective ROS Limited/Unobtainable: Yes Allergies: Coded Allergies: CHLORPROMAZINE (Verified Allergy, Unknown, 06/23/17) ERYTHROMYCIN BASE (Verified Allergy, Unknown, 06/23/17) Uncoded Allergies: TAPE (Allergy, Unknown, 06/23/17) Objective Last 24 Hour Vital Signs Date Time Temp Pulse Resp B/P (MAP) Pulse Ox O2 Delivery O2 Flow Rate FiO2 07/15/17 15:12 100 16 30 07/15/17 13:09 69 16 30 07/15/17 13:04 66/36 07/15/17 12:00 83 07/15/17 12:00 30 07/15/17 11:04 99 16 30 07/15/17 09:19 75 16 30 07/15/17 08:00 90 07/15/17 08:00 30 07/15/17 07:08 71 16 30 07/15/17 07:00 72 16 101/44 100 Mechanical Ventilator 30 07/15/17 07:00 101/44 07/15/17 06:45 71 16 85/47 100 Mechanical Ventilator 30 07/15/17 06:30 76 16 92/52 100 Mechanical Ventilator 30 07/15/17 06:15 68 16 90/47 100 Mechanical Ventilator 30 07/15/17 06:00 93/47 07/15/17 06:00 70 16 93/47 100 Mechanical Ventilator 30 07/15/17 05:45 69 16 84/45 100 Mechanical Ventilator 30 07/15/17 05:30 69 16 96/47 100 Mechanical Ventilator 30 07/15/17 05:21 77 16 30 07/15/17 05:15 72 16 80/45 100 Mechanical Ventilator 30 07/15/17 05:00 98.2 77 16 82/43 100 Mechanical Ventilator 30 07/15/17 05:00 82/43 07/15/17 04:45 80 16 86/44 100 Mechanical Ventilator 30 07/15/17 04:30 95 16 90/44 100 Mechanical Ventilator 30 07/15/17 04:15 80 16 92/51 100 Mechanical Ventilator 30 07/15/17 04:00 91 16 105/44 100 Mechanical Ventilator 30 07/15/17 04:00 30 07/15/17 04:00 87 07/15/17 04:00 92/51 07/15/17 03:45 70 16 86/44 100 Mechanical Ventilator 30 07/15/17 03:30 72 16 87/44 100 Mechanical Ventilator 30 07/15/17 03:22 78 16 30 07/15/17 03:22 30 07/15/17 03:15 70 16 83/43 100 Mechanical Ventilator 30 07/15/17 03:00 70 16 83/44 100 Mechanical Ventilator 30 07/15/17 03:00 83/43 07/15/17 02:45 69 16 81/44 100 Mechanical Ventilator 55 07/15/17 02:30 68 16 87/45 100 Mechanical Ventilator 55 07/15/17 02:15 69 16 93/48 100 Mechanical Ventilator 55 07/15/17 02:10 96/47 07/15/17 02:00 69 16 93/46 100 Mechanical Ventilator 55 07/15/17 02:00 93/46 07/15/17 01:45 68 16 93/46 99 Mechanical Ventilator 55 07/15/17 01:30 66 16 98/48 99 Mechanical Ventilator 55 07/15/17 01:15 69 16 96/47 99 Mechanical Ventilator 55 07/15/17 01:00 73 16 55 07/15/17 01:00 98.8 67 16 91/47 99 Mechanical Ventilator 55 07/15/17 00:45 69 16 97/47 99 Mechanical Ventilator 55 07/15/17 00:30 66 16 91/48 100 Mechanical Ventilator 55 07/15/17 00:15 63 16 90/48 100 Mechanical Ventilator 55 07/15/17 00:00 75 07/15/17 00:00 91/48 07/15/17 00:00 55 07/15/17 00:00 66 16 63/45 100 Mechanical Ventilator 55 07/14/17 23:45 63 16 90/48 100 Mechanical Ventilator 55 07/14/17 23:36 70 16 55 07/14/17 23:30 64 16 88/51 100 Mechanical Ventilator 55 07/14/17 23:15 69 16 91/45 100 Mechanical Ventilator 55 07/14/17 23:00 67 16 99/49 100 Mechanical Ventilator 55 07/14/17 23:00 99/49 07/14/17 22:45 69 16 98/49 100 Mechanical Ventilator 55 07/14/17 22:30 74 16 91/48 100 Mechanical Ventilator 55 07/14/17 22:15 72 16 88/49 100 Mechanical Ventilator 55 07/14/17 22:00 77 16 90/54 100 Mechanical Ventilator 55 07/14/17 22:00 90/53 07/14/17 21:45 69 16 90/54 100 Mechanical Ventilator 55 07/14/17 21:30 78 16 95/58 100 Mechanical Ventilator 55 07/14/17 21:15 99.8 74 16 84/46 100 Mechanical Ventilator 55 07/14/17 21:00 71 16 55 07/14/17 21:00 95/56 07/14/17 21:00 69 16 88/46 100 Mechanical Ventilator 55 07/14/17 20:45 72 16 88/45 100 Mechanical Ventilator 55 07/14/17 20:45 70 16 87/46 100 Mechanical Ventilator 55 07/14/17 20:30 72 16 89/48 100 Mechanical Ventilator 55 07/14/17 20:15 72 16 85/47 100 Mechanical Ventilator 55 07/14/17 20:00 93/55 07/14/17 20:00 72 07/14/17 20:00 55 07/14/17 20:00 72 16 87/46 100 Mechanical Ventilator 55 07/14/17 19:45 88 16 89/85 100 Mechanical Ventilator 55 07/14/17 19:30 71 16 102/47 100 Mechanical Ventilator 55 07/14/17 19:15 67 16 92/44 100 Mechanical Ventilator 55 07/14/17 19:00 68 16 92/44 100 Mechanical Ventilator 55 07/14/17 19:00 87/46 07/14/17 18:30 68 16 96/50 100 Mechanical Ventilator 55 07/14/17 18:27 66 16 55 07/14/17 18:00 73 16 114/48 100 Mechanical Ventilator 55 07/14/17 18:00 114/48 07/14/17 17:30 68 16 89/45 100 Mechanical Ventilator 55 07/14/17 17:00 78/45 07/14/17 17:00 75 16 78/67 100 Mechanical Ventilator 55 07/14/17 16:49 73 16 55 07/14/17 16:30 73 16 103/46 100 Mechanical Ventilator 55 07/14/17 16:22 112/58 07/14/17 16:00 98.4 69 16 93/33 100 Mechanical Ventilator 55 07/14/17 16:00 72 07/14/17 16:00 93/33 07/14/17 15:30 69 16 94/53 100 Mechanical Ventilator 55 Intake and Output 07/15/17 07/16/17 19:00 07:00 Intake Total 660 ml Output Total 725 ml Balance -65 ml Free Water 100 ml Tube Feeding 520 ml Other 40 ml Output Urine Total 725 ml Laboratory Tests 07/15/17 03:45: White Blood Count 8.1, Red Blood Count 3.05L, Hemoglobin 10.4L, Hematocrit 30.4L , Mean Corpuscular Volume 100H, Mean Corpuscular Hemoglobin 34.1H, Mean Corpuscular Hemoglobin Concent 34.2, Red Cell Distribution Width 12.8, Platelet Count 287, Mean Platelet Volume 5.4L, Neutrophils (%) (Auto) 56.3, Lymphocytes ( %) (Auto) 27.5, Monocytes (%) (Auto) 5.5, Eosinophils (%) (Auto) 9.2H, Basophils (%) (Auto) 1.5, Sodium Level 140, Potassium Level 4.0, Chloride Level 104, Carbon Dioxide Level 26, Anion Gap 10, Blood Urea Nitrogen 24H, Creatinine 0.9, Estimat Glomerular Filtration Rate > 60, Glucose Level 126H, Calcium Level 9.4, Phosphorus Level 3.9, Magnesium Level 2.2, Total Bilirubin 0.2, Aspartate Amino Transf (AST/SGOT) 12L, Alanine Aminotransferase (ALT/SGPT) 12, Alkaline Phosphatase 74, Total Protein 7.0, Albumin 2.3L, Globulin 4.7, Albumin/Globulin Ratio 0.5L 07/15/17 09:20: Arterial Blood pH 7.468H, Arterial Blood Partial Pressure CO2 36.2, Arterial Blood Partial Pressure O2 92.6, Arterial Blood HCO3 25.6, Arterial Blood Oxygen Saturation 97.2, Arterial Blood Base Excess 2.0, Anthony Test Positive Height (Feet): 5 Height (Inches): 11.00 Weight (Pounds): 121 Neck: supple Cardiovascular: normal rate Respiratory/Chest: lungs clear Abdomen: soft Michael Simon MD Jul 15, 2017 15:26
--- NOTE | 2017-07-15 15:31 | Nephrology Progress Note ---
Assessment/Plan Assessment 1. hypokalemia resolved 2. respiratory failure 3. hypotension 4. hypomagnesemia Plan plan to give NS bolus monitoring out put continue iv antibiotic monitoring renal function monitoring electrolyte replace as need avoid any NSAID Subjective Subjective intubated not responsive on dopamine on ivf 50 cc/h Objective Objective Last 24 Hour Vital Signs Date Time Temp Pulse Resp B/P (MAP) Pulse Ox O2 Delivery O2 Flow Rate FiO2 07/15/17 15:12 100 16 30 07/15/17 13:09 69 16 30 07/15/17 13:04 66/36 07/15/17 12:00 83 07/15/17 12:00 30 07/15/17 11:04 99 16 30 07/15/17 09:19 75 16 30 07/15/17 08:00 90 07/15/17 08:00 30 07/15/17 07:08 71 16 30 07/15/17 07:00 72 16 101/44 100 Mechanical Ventilator 30 07/15/17 07:00 101/44 07/15/17 06:45 71 16 85/47 100 Mechanical Ventilator 30 07/15/17 06:30 76 16 92/52 100 Mechanical Ventilator 30 07/15/17 06:15 68 16 90/47 100 Mechanical Ventilator 30 07/15/17 06:00 93/47 07/15/17 06:00 70 16 93/47 100 Mechanical Ventilator 30 07/15/17 05:45 69 16 84/45 100 Mechanical Ventilator 30 07/15/17 05:30 69 16 96/47 100 Mechanical Ventilator 30 07/15/17 05:21 77 16 30 07/15/17 05:15 72 16 80/45 100 Mechanical Ventilator 30 07/15/17 05:00 98.2 77 16 82/43 100 Mechanical Ventilator 30 07/15/17 05:00 82/43 07/15/17 04:45 80 16 86/44 100 Mechanical Ventilator 30 07/15/17 04:30 95 16 90/44 100 Mechanical Ventilator 30 07/15/17 04:15 80 16 92/51 100 Mechanical Ventilator 30 07/15/17 04:00 91 16 105/44 100 Mechanical Ventilator 30 07/15/17 04:00 30 07/15/17 04:00 87 07/15/17 04:00 92/51 07/15/17 03:45 70 16 86/44 100 Mechanical Ventilator 30 07/15/17 03:30 72 16 87/44 100 Mechanical Ventilator 30 07/15/17 03:22 78 16 30 07/15/17 03:22 30 07/15/17 03:15 70 16 83/43 100 Mechanical Ventilator 30 07/15/17 03:00 70 16 83/44 100 Mechanical Ventilator 30 07/15/17 03:00 83/43 07/15/17 02:45 69 16 81/44 100 Mechanical Ventilator 55 07/15/17 02:30 68 16 87/45 100 Mechanical Ventilator 55 07/15/17 02:15 69 16 93/48 100 Mechanical Ventilator 55 07/15/17 02:10 96/47 07/15/17 02:00 69 16 93/46 100 Mechanical Ventilator 55 07/15/17 02:00 93/46 07/15/17 01:45 68 16 93/46 99 Mechanical Ventilator 55 07/15/17 01:30 66 16 98/48 99 Mechanical Ventilator 55 07/15/17 01:15 69 16 96/47 99 Mechanical Ventilator 55 07/15/17 01:00 73 16 55 07/15/17 01:00 98.8 67 16 91/47 99 Mechanical Ventilator 55 07/15/17 00:45 69 16 97/47 99 Mechanical Ventilator 55 07/15/17 00:30 66 16 91/48 100 Mechanical Ventilator 55 07/15/17 00:15 63 16 90/48 100 Mechanical Ventilator 55 07/15/17 00:00 75 07/15/17 00:00 91/48 07/15/17 00:00 55 07/15/17 00:00 66 16 63/45 100 Mechanical Ventilator 55 07/14/17 23:45 63 16 90/48 100 Mechanical Ventilator 55 07/14/17 23:36 70 16 55 07/14/17 23:30 64 16 88/51 100 Mechanical Ventilator 55 07/14/17 23:15 69 16 91/45 100 Mechanical Ventilator 55 07/14/17 23:00 67 16 99/49 100 Mechanical Ventilator 55 07/14/17 23:00 99/49 07/14/17 22:45 69 16 98/49 100 Mechanical Ventilator 55 07/14/17 22:30 74 16 91/48 100 Mechanical Ventilator 55 07/14/17 22:15 72 16 88/49 100 Mechanical Ventilator 55 07/14/17 22:00 77 16 90/54 100 Mechanical Ventilator 55 07/14/17 22:00 90/53 07/14/17 21:45 69 16 90/54 100 Mechanical Ventilator 55 07/14/17 21:30 78 16 95/58 100 Mechanical Ventilator 55 07/14/17 21:15 99.8 74 16 84/46 100 Mechanical Ventilator 55 07/14/17 21:00 71 16 55 07/14/17 21:00 95/56 07/14/17 21:00 69 16 88/46 100 Mechanical Ventilator 55 07/14/17 20:45 72 16 88/45 100 Mechanical Ventilator 55 07/14/17 20:45 70 16 87/46 100 Mechanical Ventilator 55 07/14/17 20:30 72 16 89/48 100 Mechanical Ventilator 55 07/14/17 20:15 72 16 85/47 100 Mechanical Ventilator 55 07/14/17 20:00 93/55 07/14/17 20:00 72 07/14/17 20:00 55 07/14/17 20:00 72 16 87/46 100 Mechanical Ventilator 55 07/14/17 19:45 88 16 89/85 100 Mechanical Ventilator 55 07/14/17 19:30 71 16 102/47 100 Mechanical Ventilator 55 07/14/17 19:15 67 16 92/44 100 Mechanical Ventilator 55 07/14/17 19:00 68 16 92/44 100 Mechanical Ventilator 55 07/14/17 19:00 87/46 07/14/17 18:30 68 16 96/50 100 Mechanical Ventilator 55 07/14/17 18:27 66 16 55 07/14/17 18:00 73 16 114/48 100 Mechanical Ventilator 55 07/14/17 18:00 114/48 07/14/17 17:30 68 16 89/45 100 Mechanical Ventilator 55 07/14/17 17:00 78/45 07/14/17 17:00 75 16 78/67 100 Mechanical Ventilator 55 07/14/17 16:49 73 16 55 07/14/17 16:30 73 16 103/46 100 Mechanical Ventilator 55 07/14/17 16:22 112/58 07/14/17 16:00 98.4 69 16 93/33 100 Mechanical Ventilator 55 07/14/17 16:00 72 07/14/17 16:00 93/33 Intake and Output 07/15/17 07/16/17 19:00 07:00 Intake Total 660 ml Output Total 725 ml Balance -65 ml Free Water 100 ml Tube Feeding 520 ml Other 40 ml Output Urine Total 725 ml Laboratory Tests 07/15/17 03:45: White Blood Count 8.1, Red Blood Count 3.05L, Hemoglobin 10.4L, Hematocrit 30.4L , Mean Corpuscular Volume 100H, Mean Corpuscular Hemoglobin 34.1H, Mean Corpuscular Hemoglobin Concent 34.2, Red Cell Distribution Width 12.8, Platelet Count 287, Mean Platelet Volume 5.4L, Neutrophils (%) (Auto) 56.3, Lymphocytes ( %) (Auto) 27.5, Monocytes (%) (Auto) 5.5, Eosinophils (%) (Auto) 9.2H, Basophils (%) (Auto) 1.5, Sodium Level 140, Potassium Level 4.0, Chloride Level 104, Carbon Dioxide Level 26, Anion Gap 10, Blood Urea Nitrogen 24H, Creatinine 0.9, Estimat Glomerular Filtration Rate > 60, Glucose Level 126H, Calcium Level 9.4, Phosphorus Level 3.9, Magnesium Level 2.2, Total Bilirubin 0.2, Aspartate Amino Transf (AST/SGOT) 12L, Alanine Aminotransferase (ALT/SGPT) 12, Alkaline Phosphatase 74, Total Protein 7.0, Albumin 2.3L, Globulin 4.7, Albumin/Globulin Ratio 0.5L 07/15/17 09:20: Arterial Blood pH 7.468H, Arterial Blood Partial Pressure CO2 36.2, Arterial Blood Partial Pressure O2 92.6, Arterial Blood HCO3 25.6, Arterial Blood Oxygen Saturation 97.2, Arterial Blood Base Excess 2.0, Anthony Test Positive Height (Feet): 5 Height (Inches): 11.00 Weight (Pounds): 121 Objective HEAD AND NECK: No JVP. No LAD. No thyromegaly. Extraocular movements intact. Pupils are reactive to light and accommodation. LUNGS: Clear to auscultation. CARDIAC: Regular rate and rhythm. S1 and S2. No murmur. No rub. ABDOMEN: Soft, nontender, and nondistended. EXTREMITIES: No edema. No clubbing. No cyanosis. NEUROLOGIC: The patient opened up his eyes, not following verbal commands. RANCHO SYKES Jul 15, 2017 15:31
--- NOTE | 2017-07-15 20:46 | General Progress Note ---
Assessment/Plan Assessment/Plan Dementia schizophrenia encephalopathy -zyprexa -ativan Subjective Date patient seen: Jul 15, 2017 Neurologic/Psychiatric: Reports: anxiety Allergies: Coded Allergies: CHLORPROMAZINE (Verified Allergy, Unknown, 06/23/17) ERYTHROMYCIN BASE (Verified Allergy, Unknown, 06/23/17) Uncoded Allergies: TAPE (Allergy, Unknown, 06/23/17) Subjective nad calm and no agitation Objective Last 24 Hour Vital Signs Date Time Temp Pulse Resp B/P (MAP) Pulse Ox O2 Delivery O2 Flow Rate FiO2 07/15/17 20:00 100 07/15/17 18:45 78 16 109/62 100 Mechanical Ventilator 30 07/15/17 18:30 89 16 108/63 100 Mechanical Ventilator 30 07/15/17 18:15 77 16 103/61 100 Mechanical Ventilator 30 07/15/17 18:00 79 16 112/75 100 Mechanical Ventilator 30 07/15/17 17:45 80 16 108/62 100 Mechanical Ventilator 30 07/15/17 17:30 82 16 113/62 100 Mechanical Ventilator 30 07/15/17 17:18 99 16 30 07/15/17 17:15 87 16 111/64 100 Mechanical Ventilator 30 07/15/17 17:00 87 16 106/71 100 Mechanical Ventilator 30 07/15/17 16:45 89 16 103/59 100 Mechanical Ventilator 30 07/15/17 16:30 87 16 97/60 100 Mechanical Ventilator 30 07/15/17 16:15 86 16 103/64 100 Mechanical Ventilator 30 07/15/17 16:00 81 07/15/17 16:00 98.2 69 16 121/65 99 Mechanical Ventilator 30 07/15/17 16:00 30 07/15/17 15:45 69 16 110/64 100 Mechanical Ventilator 30 07/15/17 15:30 84 16 122/62 100 Mechanical Ventilator 30 07/15/17 15:15 86 16 115/63 100 Mechanical Ventilator 30 07/15/17 15:12 100 16 30 07/15/17 15:00 88 16 114/63 100 Mechanical Ventilator 30 07/15/17 14:45 82 16 118/60 100 Mechanical Ventilator 30 07/15/17 14:30 80 16 111/64 100 Mechanical Ventilator 30 07/15/17 14:15 81 16 121/60 100 Mechanical Ventilator 30 07/15/17 14:00 77 16 133/68 100 Mechanical Ventilator 30 10/30/17 13:45 75 16 143/63 99 Mechanical Ventilator 30 07/15/17 13:30 72 16 142/67 99 Mechanical Ventilator 30 07/15/17 13:15 72 16 148/61 98 Mechanical Ventilator 30 07/15/17 13:09 69 16 30 07/15/17 13:04 66/36 07/15/17 13:00 69 16 146/66 99 Mechanical Ventilator 30 07/15/17 12:45 63 16 70/46 99 Mechanical Ventilator 30 07/15/17 12:30 88 16 70/46 98 Mechanical Ventilator 30 07/15/17 12:15 80 16 94/53 100 Mechanical Ventilator 30 07/15/17 12:01 98.6 79 16 96/54 100 Mechanical Ventilator 30 07/15/17 12:00 83 07/15/17 12:00 79 16 96/54 100 Mechanical Ventilator 30 07/15/17 12:00 30 07/15/17 11:45 79 16 85/51 100 Mechanical Ventilator 30 07/15/17 11:30 81 16 90/53 100 Mechanical Ventilator 30 07/15/17 11:15 83 16 85/52 100 Mechanical Ventilator 30 07/15/17 11:04 99 16 30 07/15/17 11:00 84 16 97/63 100 Mechanical Ventilator 30 07/15/17 10:45 84 16 98/58 100 Mechanical Ventilator 30 07/15/17 10:30 89 16 84/53 99 Mechanical Ventilator 30 07/15/17 10:15 102 16 133/60 98 Mechanical Ventilator 30 07/15/17 10:00 96 17 84/47 100 Mechanical Ventilator 30 07/15/17 09:45 73 16 85/48 100 Mechanical Ventilator 30 07/15/17 09:30 73 16 86/48 100 Mechanical Ventilator 30 07/15/17 09:19 75 16 30 07/15/17 09:15 74 16 86/49 99 Mechanical Ventilator 30 07/15/17 09:00 75 16 86/48 99 Mechanical Ventilator 30 07/15/17 08:30 80 16 82/49 98 Mechanical Ventilator 30 07/15/17 08:15 82 16 85/48 98 Mechanical Ventilator 30 07/15/17 08:00 90 07/15/17 08:00 30 07/15/17 08:00 98.5 95 16 100/59 97 Mechanical Ventilator 30 07/15/17 07:45 93 16 82/46 97 Mechanical Ventilator 30 07/15/17 07:30 93 16 80/45 97 Mechanical Ventilator 30 07/15/17 07:15 94 16 101/44 97 Mechanical Ventilator 30 07/15/17 07:08 71 16 30 07/15/17 07:00 72 16 101/44 100 Mechanical Ventilator 30 07/15/17 07:00 101/44 07/15/17 06:45 71 16 85/47 100 Mechanical Ventilator 30 07/15/17 06:30 76 16 92/52 100 Mechanical Ventilator 30 07/15/17 06:15 68 16 90/47 100 Mechanical Ventilator 30 07/15/17 06:00 93/47 07/15/17 06:00 70 16 93/47 100 Mechanical Ventilator 30 07/15/17 05:45 69 16 84/45 100 Mechanical Ventilator 30 07/15/17 05:30 69 16 96/47 100 Mechanical Ventilator 30 07/15/17 05:21 77 16 30 07/15/17 05:15 72 16 80/45 100 Mechanical Ventilator 30 07/15/17 05:00 98.2 77 16 82/43 100 Mechanical Ventilator 30 07/15/17 05:00 82/43 07/15/17 04:45 80 16 86/44 100 Mechanical Ventilator 30 07/15/17 04:30 95 16 90/44 100 Mechanical Ventilator 30 07/15/17 04:15 80 16 92/51 100 Mechanical Ventilator 30 07/15/17 04:00 91 16 105/44 100 Mechanical Ventilator 30 07/15/17 04:00 30 07/15/17 04:00 87 07/15/17 04:00 92/51 07/15/17 03:45 70 16 86/44 100 Mechanical Ventilator 30 07/15/17 03:30 72 16 87/44 100 Mechanical Ventilator 30 07/15/17 03:22 78 16 30 07/15/17 03:22 30 07/15/17 03:15 70 16 83/43 100 Mechanical Ventilator 30 07/15/17 03:00 70 16 83/44 100 Mechanical Ventilator 30 07/15/17 03:00 83/43 07/15/17 02:45 69 16 81/44 100 Mechanical Ventilator 55 07/15/17 02:30 68 16 87/45 100 Mechanical Ventilator 55 07/15/17 02:15 69 16 93/48 100 Mechanical Ventilator 55 07/15/17 02:10 96/47 07/15/17 02:00 69 16 93/46 100 Mechanical Ventilator 55 07/15/17 02:00 93/46 07/15/17 01:45 68 16 93/46 99 Mechanical Ventilator 55 07/15/17 01:30 66 16 98/48 99 Mechanical Ventilator 55 07/15/17 01:15 69 16 96/47 99 Mechanical Ventilator 55 07/15/17 01:00 73 16 55 07/15/17 01:00 98.8 67 16 91/47 99 Mechanical Ventilator 55 07/15/17 00:45 69 16 97/47 99 Mechanical Ventilator 55 07/15/17 00:30 66 16 91/48 100 Mechanical Ventilator 55 07/15/17 00:15 63 16 90/48 100 Mechanical Ventilator 55 07/15/17 00:00 75 07/15/17 00:00 91/48 07/15/17 00:00 55 07/15/17 00:00 66 16 63/45 100 Mechanical Ventilator 55 07/14/17 23:45 63 16 90/48 100 Mechanical Ventilator 55 07/14/17 23:36 70 16 55 07/14/17 23:30 64 16 88/51 100 Mechanical Ventilator 55 07/14/17 23:15 69 16 91/45 100 Mechanical Ventilator 55 07/14/17 23:00 67 16 99/49 100 Mechanical Ventilator 55 07/14/17 23:00 99/49 07/14/17 22:45 69 16 98/49 100 Mechanical Ventilator 55 07/14/17 22:30 74 16 91/48 100 Mechanical Ventilator 55 07/14/17 22:15 72 16 88/49 100 Mechanical Ventilator 55 07/14/17 22:00 77 16 90/54 100 Mechanical Ventilator 55 07/14/17 22:00 90/53 07/14/17 21:45 69 16 90/54 100 Mechanical Ventilator 55 07/14/17 21:30 78 16 95/58 100 Mechanical Ventilator 55 07/14/17 21:15 99.8 74 16 84/46 100 Mechanical Ventilator 55 07/14/17 21:00 71 16 55 07/14/17 21:00 95/56 07/14/17 21:00 69 16 88/46 100 Mechanical Ventilator 55 Intake and Output 07/15/17 07/16/17 19:00 07:00 Intake Total 2161.333 ml 112.206 ml Output Total 1420 ml 100 ml Balance 741.333 ml 12.206 ml Free Water 100 ml IV Total 1321.333 ml 82.206 ml Tube Feeding 640 ml 30 ml Other 100 ml Output Urine Total 1420 ml 100 ml Laboratory Tests 07/15/17 03:45: White Blood Count 8.1, Red Blood Count 3.05L, Hemoglobin 10.4L, Hematocrit 30.4L , Mean Corpuscular Volume 100H, Mean Corpuscular Hemoglobin 34.1H, Mean Corpuscular Hemoglobin Concent 34.2, Red Cell Distribution Width 12.8, Platelet Count 287, Mean Platelet Volume 5.4L, Neutrophils (%) (Auto) 56.3, Lymphocytes ( %) (Auto) 27.5, Monocytes (%) (Auto) 5.5, Eosinophils (%) (Auto) 9.2H, Basophils (%) (Auto) 1.5, Sodium Level 140, Potassium Level 4.0, Chloride Level 104, Carbon Dioxide Level 26, Anion Gap 10, Blood Urea Nitrogen 24H, Creatinine 0.9, Estimat Glomerular Filtration Rate > 60, Glucose Level 126H, Calcium Level 9.4, Phosphorus Level 3.9, Magnesium Level 2.2, Total Bilirubin 0.2, Aspartate Amino Transf (AST/SGOT) 12L, Alanine Aminotransferase (ALT/SGPT) 12, Alkaline Phosphatase 74, Total Protein 7.0, Albumin 2.3L, Globulin 4.7, Albumin/Globulin Ratio 0.5L 07/15/17 09:20: Arterial Blood pH 7.468H, Arterial Blood Partial Pressure CO2 36.2, Arterial Blood Partial Pressure O2 92.6, Arterial Blood HCO3 25.6, Arterial Blood Oxygen Saturation 97.2, Arterial Blood Base Excess 2.0, Anthony Test Positive 07/15/17 20:00: Arterial Blood pH 7.380, Arterial Blood Partial Pressure CO2 45.3H, Arterial Blood Partial Pressure O2 286.7H, Arterial Blood HCO3 26.2H, Arterial Blood Oxygen Saturation 99.1H, Arterial Blood Base Excess 0.8, Anthony Test Positive Height (Feet): 5 Height (Inches): 11.00 Weight (Pounds): 121 General Appearance: no apparent distress, lethargic Hill Hare M.D. Jul 15, 2017 20:46
--- NOTE | 2017-07-15 22:39 | Infectious Diseases Prog Note ---
Assessment/Plan Problems: (1) HCAP (healthcare-associated pneumonia) Assessment & Plan: due to left lung collapse again, S/P reintubation, continue meropenem and vancomycin since he developed left lung consolidation after his lung collapsed again with fever , pending sputum culture , monitor CXR, and WBC, continue nebulizers as needed, may need trach since he is ventilator dependant (2) Acute respiratory failure Assessment & Plan: due to left lung collapse , S/P re-intubation and mechanical ventilation. 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 , due to mucous plug, S/P bronchoscopy x2 , may need bronchial stent pulmonary is following (5) UTI (urinary tract infection) Assessment & Plan: with MDR Providencia stuartii and craig, await urine culture , and continue meropenem to treat for two weeks Subjective ROS Limited/Unobtainable: Yes Allergies: Coded Allergies: CHLORPROMAZINE (Verified Allergy, Unknown, 06/23/17) ERYTHROMYCIN BASE (Verified Allergy, Unknown, 06/23/17) Uncoded Allergies: TAPE (Allergy, Unknown, 06/23/17) Subjective he is still intubated on mechanical ventilation , due to left lung collapse again, not in distress , no fever , no diarrhea, on pressor Objective Vital Signs Last 24 Hour Vital Signs Date Time Temp Pulse Resp B/P (MAP) Pulse Ox O2 Delivery O2 Flow Rate FiO2 07/15/17 21:10 109/62 07/15/17 21:00 85 16 92/51 100 Mechanical Ventilator 30 07/15/17 20:45 89 16 92/51 100 Mechanical Ventilator 30 07/15/17 20:30 98 16 113/58 100 Mechanical Ventilator 07/15/17 20:15 77 16 98/52 100 Mechanical Ventilator 30 07/15/17 20:00 100 07/15/17 20:00 98.0 81 16 93/77 100 Mechanical Ventilator 30 07/15/17 20:00 91 07/15/17 19:45 88 16 94/50 100 Mechanical Ventilator 30 07/15/17 19:30 89 16 98/60 100 Mechanical Ventilator 30 07/15/17 19:15 85 16 98/55 100 Mechanical Ventilator 30 07/15/17 19:00 86 16 116/68 100 Mechanical Ventilator 30 07/15/17 18:45 78 16 109/62 100 Mechanical Ventilator 30 07/15/17 18:30 89 16 108/63 100 Mechanical Ventilator 30 07/15/17 18:15 77 16 103/61 100 Mechanical Ventilator 30 07/15/17 18:00 79 16 112/75 100 Mechanical Ventilator 30 07/15/17 17:45 80 16 108/62 100 Mechanical Ventilator 30 07/15/17 17:30 82 16 113/62 100 Mechanical Ventilator 30 07/15/17 17:18 99 16 30 07/15/17 17:15 87 16 111/64 100 Mechanical Ventilator 30 07/15/17 17:00 87 16 106/71 100 Mechanical Ventilator 30 07/15/17 16:45 89 16 103/59 100 Mechanical Ventilator 30 07/15/17 16:30 87 16 97/60 100 Mechanical Ventilator 30 07/15/17 16:15 86 16 103/64 100 Mechanical Ventilator 30 07/15/17 16:00 81 07/15/17 16:00 98.2 69 16 121/65 99 Mechanical Ventilator 30 07/15/17 16:00 30 07/15/17 15:45 69 16 110/64 100 Mechanical Ventilator 30 07/15/17 15:30 84 16 122/62 100 Mechanical Ventilator 30 07/15/17 15:15 86 16 115/63 100 Mechanical Ventilator 30 07/15/17 15:12 100 16 30 07/15/17 15:00 88 16 114/63 100 Mechanical Ventilator 30 07/15/17 14:45 82 16 118/60 100 Mechanical Ventilator 30 07/15/17 14:30 80 16 111/64 100 Mechanical Ventilator 30 07/15/17 14:15 81 16 121/60 100 Mechanical Ventilator 30 07/15/17 14:00 77 16 133/68 100 Mechanical Ventilator 30 07/15/17 13:45 75 16 143/63 99 Mechanical Ventilator 30 07/15/17 13:30 72 16 142/67 99 Mechanical Ventilator 30 07/15/17 13:15 72 16 148/61 98 Mechanical Ventilator 30 07/15/17 13:09 69 16 30 07/15/17 13:04 66/36 07/15/17 13:00 69 16 146/66 99 Mechanical Ventilator 30 10/30/17 12:45 63 16 70/46 99 Mechanical Ventilator 30 07/15/17 12:30 88 16 70/46 98 Mechanical Ventilator 30 07/15/17 12:15 80 16 94/53 100 Mechanical Ventilator 30 07/15/17 12:01 98.6 79 16 96/54 100 Mechanical Ventilator 30 07/15/17 12:00 83 07/15/17 12:00 79 16 96/54 100 Mechanical Ventilator 30 07/15/17 12:00 30 07/15/17 11:45 79 16 85/51 100 Mechanical Ventilator 30 07/15/17 11:30 81 16 90/53 100 Mechanical Ventilator 30 07/15/17 11:15 83 16 85/52 100 Mechanical Ventilator 30 07/15/17 11:04 99 16 30 07/15/17 11:00 84 16 97/63 100 Mechanical Ventilator 30 07/15/17 10:45 84 16 98/58 100 Mechanical Ventilator 30 07/15/17 10:30 89 16 84/53 99 Mechanical Ventilator 30 07/15/17 10:15 102 16 133/60 98 Mechanical Ventilator 30 07/15/17 10:00 96 17 84/47 100 Mechanical Ventilator 30 07/15/17 09:45 73 16 85/48 100 Mechanical Ventilator 30 07/15/17 09:30 73 16 86/48 100 Mechanical Ventilator 30 07/15/17 09:19 75 16 30 07/15/17 09:15 74 16 86/49 99 Mechanical Ventilator 30 07/15/17 09:00 75 16 86/48 99 Mechanical Ventilator 30 07/15/17 08:30 80 16 82/49 98 Mechanical Ventilator 30 07/15/17 08:15 82 16 85/48 98 Mechanical Ventilator 30 07/15/17 08:00 90 07/15/17 08:00 30 07/15/17 08:00 98.5 95 16 100/59 97 Mechanical Ventilator 30 07/15/17 07:45 93 16 82/46 97 Mechanical Ventilator 30 07/15/17 07:30 93 16 80/45 97 Mechanical Ventilator 30 07/15/17 07:15 94 16 101/44 97 Mechanical Ventilator 30 07/15/17 07:08 71 16 30 07/15/17 07:00 72 16 101/44 100 Mechanical Ventilator 30 07/15/17 07:00 101/44 07/15/17 06:45 71 16 85/47 100 Mechanical Ventilator 30 07/15/17 06:30 76 16 92/52 100 Mechanical Ventilator 30 07/15/17 06:15 68 16 90/47 100 Mechanical Ventilator 30 07/15/17 06:00 93/47 07/15/17 06:00 70 16 93/47 100 Mechanical Ventilator 30 07/15/17 05:45 69 16 84/45 100 Mechanical Ventilator 30 07/15/17 05:30 69 16 96/47 100 Mechanical Ventilator 30 07/15/17 05:21 77 16 30 07/15/17 05:15 72 16 80/45 100 Mechanical Ventilator 30 07/15/17 05:00 98.2 77 16 82/43 100 Mechanical Ventilator 30 07/15/17 05:00 82/43 07/15/17 04:45 80 16 86/44 100 Mechanical Ventilator 30 07/15/17 04:30 95 16 90/44 100 Mechanical Ventilator 30 07/15/17 04:15 80 16 92/51 100 Mechanical Ventilator 30 07/15/17 04:00 91 16 105/44 100 Mechanical Ventilator 30 07/15/17 04:00 30 07/15/17 04:00 87 07/15/17 04:00 92/51 07/15/17 03:45 70 16 86/44 100 Mechanical Ventilator 30 07/15/17 03:30 72 16 87/44 100 Mechanical Ventilator 30 07/15/17 03:22 78 16 30 07/15/17 03:22 30 07/15/17 03:15 70 16 83/43 100 Mechanical Ventilator 30 07/15/17 03:00 70 16 83/44 100 Mechanical Ventilator 30 07/15/17 03:00 83/43 07/15/17 02:45 69 16 81/44 100 Mechanical Ventilator 55 07/15/17 02:30 68 16 87/45 100 Mechanical Ventilator 55 07/15/17 02:15 69 16 93/48 100 Mechanical Ventilator 55 07/15/17 02:10 96/47 07/15/17 02:00 69 16 93/46 100 Mechanical Ventilator 55 07/15/17 02:00 93/46 07/15/17 01:45 68 16 93/46 99 Mechanical Ventilator 55 07/15/17 01:30 66 16 98/48 99 Mechanical Ventilator 55 07/15/17 01:15 69 16 96/47 99 Mechanical Ventilator 55 07/15/17 01:00 73 16 55 07/15/17 01:00 98.8 67 16 91/47 99 Mechanical Ventilator 55 07/15/17 00:45 69 16 97/47 99 Mechanical Ventilator 55 07/15/17 00:30 66 16 91/48 100 Mechanical Ventilator 55 07/15/17 00:15 63 16 90/48 100 Mechanical Ventilator 55 07/15/17 00:00 75 07/15/17 00:00 91/48 07/15/17 00:00 55 07/15/17 00:00 66 16 63/45 100 Mechanical Ventilator 55 07/14/17 23:45 63 16 90/48 100 Mechanical Ventilator 55 07/14/17 23:36 70 16 55 07/14/17 23:30 64 16 88/51 100 Mechanical Ventilator 55 07/14/17 23:15 69 16 91/45 100 Mechanical Ventilator 55 07/14/17 23:00 67 16 99/49 100 Mechanical Ventilator 55 07/14/17 23:00 99/49 07/14/17 22:45 69 16 98/49 100 Mechanical Ventilator 55 Height (Feet): 5 Height (Inches): 11.00 Weight (Pounds): 121 General Appearance: WD/WN, no acute distress HEENT: normocephalic, atraumatic, anicteric, mucous membranes moist, supple, no JVD Respiratory/Chest: chest wall non-tender, normal breath sounds, no respiratory distress, no accessory muscle use, decreased breath sounds, crackles/rales Cardiovascular: normal peripheral pulses, normal rate, regular rhythm, no gallop/murmur, no JVD Abdomen: normal bowel sounds, soft, non tender, no organomegaly, non distended , no mass, no scars Extremities: no cyanosis, no clubbing Skin: no rash, no lesions Neurologic/Psychiatric: unresponsiveness Musculoskeletal: normal muscle bulk Microbiology Date/Time Source Procedure Growth Status 07/13/17 15:00 Blood Blood Culture - Preliminary NO GROWTH AFTER 24 HOURS Resulted 07/13/17 15:00 Blood Blood Culture - Preliminary NO GROWTH AFTER 24 HOURS Resulted 07/13/17 10:00 Sputum Expectorated Gram Stain - Final Resulted 07/13/17 10:00 Sputum Expectorated Sputum Culture Pending Resulted 07/13/17 15:10 Indwelling Cath Urine Culture - Preliminary Gram Negative Bacillus 1 Streptococcus Species Resulted Laboratory Tests Test 07/15/17 03:45 07/15/17 09:20 07/15/17 20:00 White Blood Count 8.1 K/UL (4.8-10.8) Red Blood Count 3.05 M/UL (4.70-6.10) L Hemoglobin 10.4 G/DL (14.2-18.0) L Hematocrit 30.4 % (42.0-52.0) L Mean Corpuscular Volume 100 FL (80-99) H Mean Corpuscular Hemoglobin 34.1 PG (27.0-31.0) H Mean Corpuscular Hemoglobin Concent 34.2 G/DL (32.0-36.0) Red Cell Distribution Width 12.8 % (11.6-14.8) Platelet Count 287 K/UL (150-450) Mean Platelet Volume 5.4 FL (6.5-10.1) L Neutrophils (%) (Auto) 56.3 % (45.0-75.0) Lymphocytes (%) (Auto) 27.5 % (20.0-45.0) Monocytes (%) (Auto) 5.5 % (1.0-10.0) Eosinophils (%) (Auto) 9.2 % (0.0-3.0) H Basophils (%) (Auto) 1.5 % (0.0-2.0) Sodium Level 140 MMOL/L (136-145) Potassium Level 4.0 MMOL/L (3.5-5.1) Chloride Level 104 MMOL/L (98-107) Carbon Dioxide Level 26 MMOL/L (21-32) Anion Gap 10 mmol/L (5-15) Blood Urea Nitrogen 24 mg/dL (7-18) H Creatinine 0.9 MG/DL (0.55-1.30) Estimat Glomerular Filtration Rate > 60 mL/min (>60) Glucose Level 126 MG/DL (74-106) H Calcium Level 9.4 MG/DL (8.5-10.1) Phosphorus Level 3.9 MG/DL (2.5-4.9) Magnesium Level 2.2 MG/DL (1.8-2.4) Total Bilirubin 0.2 MG/DL (0.2-1.0) Aspartate Amino Transf (AST/SGOT) 12 U/L (15-37) L Alanine Aminotransferase (ALT/SGPT) 12 U/L (12-78) Alkaline Phosphatase 74 U/L (46-116) Total Protein 7.0 G/DL (6.4-8.2) Albumin 2.3 G/DL (3.4-5.0) L Globulin 4.7 g/dL Albumin/Globulin Ratio 0.5 (1.0-2.7) L Arterial Blood pH 7.468 (7.350-7.450) 7.380 (7.350-7.450) Arterial Blood Partial Pressure CO2 36.2 mmHg (35.0-45.0) 45.3 mmHg (35.0-45.0) H Arterial Blood Partial Pressure O2 92.6 mmHg (75.0-100.0) 286.7 mmHg (75.0-100.0) H Arterial Blood HCO3 25.6 mmol/L (22.0-26.0) 26.2 mmol/L (22.0-26.0) H Arterial Blood Oxygen Saturation 97.2 % (92.0-98.0) 99.1 % (92.0-98.0) H Arterial Blood Base Excess 2.0 0.8 Anthony Test Positive Positive Current Medications Medications (Trade) Dose Ordered Sig/Karen Route PRN Reason Start Time Stop Time Status Last Admin Dose Admin Carbamazepine (TEGretol) 200 mg FOUR TIMES A DAY ORAL 07/02/17 09:00 07/23/17 12:59 07/15/17 21:02 Chlorhexidine Gluconate (Cassandra-Hex 2%) 1 applic DAILY TOPIC 07/13/17 09:00 08/12/17 08:59 07/15/17 10:10 Dextrose (Dextrose 50%) STAT PRN IV Hypoglycemia 07/02/17 12:00 07/25/17 11:59 Docusate Sodium (Colace) 100 mg DAILY ORAL 07/02/17 09:00 07/29/17 08:59 07/15/17 10:10 Dopamine HCl/ Dextrose 250 ml @ 0 mls/hr Q24H IV 07/10/17 21:30 08/09/17 21:29 07/15/17 21:10 Heparin Sodium (Porcine) (Heparin 5000 units/ml) 5,000 units EVERY 12 HOURS SUBQ 07/02/17 09:00 07/23/17 20:59 07/15/17 21:06 Levetiracetam (Keppra) 500 mg Q12HR ORAL 07/02/17 09:00 07/23/17 20:59 07/15/17 21:02 Lorazepam (Ativan 2mg/ml 1ml) 2 mg Q4H PRN IV For Anxiety 07/13/17 08:45 07/20/17 08:44 07/14/17 00:13 Meropenem 1 gm/ Sodium Chloride 110 ml @ 220 mls/hr Q8HR IVPB 07/13/17 13:30 07/18/17 13:29 07/15/17 22:36 Morphine Sulfate (Morphine Sulfate) 4 mg Q4H PRN IVP PAIN 4-10 07/13/17 08:45 07/20/17 08:44 Nitroglycerin (Ntg) 0.4 mg Q5M X 3 DOSES PRN SL Prn Chest Pain 07/01/17 23:45 07/23/17 13:29 Olanzapine (ZyPREXA) 20 mg BEDTIME ORAL 07/02/17 21:00 07/24/17 08:59 07/15/17 21:02 Ondansetron HCl (Zofran) 4 mg Q6H PRN IVP Nausea & Vomiting 07/02/17 00:00 07/23/17 11:59 Pantoprazole (Protonix) 40 mg DAILY IV 07/13/17 09:00 08/12/17 08:59 07/15/17 10:10 Polyethylene Glycol (Miralax) 17 gm DAILYPRN PRN ORAL Constipation 07/13/17 08:15 08/12/17 08:14 07/13/17 09:25 Sodium Chloride 1,000 ml @ 50 mls/hr Q20H IV 07/14/17 09:00 08/13/17 08:59 07/15/17 05:40 Theophylline (Dane-Dur) 100 mg EVERY 12 HOURS ORAL 07/02/17 09:00 07/23/17 20:59 07/15/17 21:02 Vancomycin HCl (Vanco rx to dose) 1 ea DAILY PRN MISC Per rx protocol 07/13/17 12:15 08/12/17 12:14 Vancomycin HCl/ Dextrose 250 ml @ 166.667 mls/hr Q24H IVPB 07/14/17 14:30 07/19/17 14:29 07/15/17 14:03 Dafne Orourke M.D. Jul 15, 2017 22:38
[2017-07-16] VITALS (96 sets, daily range): BP systolic 84–124; BP diastolic 38–86
[2017-07-16] MEDS: DOPamine 400mg/250ml 250 ML IV SCH ×3 (04:14→21:49)
[2017-07-16 05:02] LABS: BASOPHILS % (AUTO) 0.8 % (0.0-2.0); EOSINOPHILS % (AUTO) 8.5 % (0.0-3.0); HEMATOCRIT 30.3 % (42.0-52.0); HEMOGLOBIN 10.3 G/DL (14.2-18.0); LYMPHOCYTES % (AUTO) 29.5 % (20.0-45.0); MEAN CORPUSCULAR VOLUME 100 FL (80-99); NEUTROPHILS % (AUTO) 55.1 % (45.0-75.0); PLATELET COUNT 297 K/UL (150-450); RED BLOOD COUNT 3.03 M/UL (4.70-6.10); RED CELL DISTRIBUTION WIDTH 12.9 % (11.6-14.8); WHITE BLOOD COUNT 8.6 K/UL (4.8-10.8)
[2017-07-16] MEDS: Meropenem 1 GM in NS 110 ML IVPB SCH ×3 (05:44→21:46)
[2017-07-16 05:51] LABS: ALANINE AMINOTRANSFERASE 12 U/L (12-78); ALBUMIN 2.3 G/DL (3.4-5.0); ALBUMIN/GLOBULIN RATIO 0.5 (1.0-2.7); ALKALINE PHOSPHATASE 72 U/L (46-116); ANION GAP 8 mmol/L (5-15); ASPARTATE AMINO TRANSFERASE 12 U/L (15-37); BILIRUBIN,TOTAL 0.2 MG/DL (0.2-1.0); BLOOD UREA NITROGEN 24 mg/dL (7-18); CALCIUM 9.3 MG/DL (8.5-10.1); CARBON DIOXIDE 28 MMOL/L (21-32); CHLORIDE 105 MMOL/L (98-107); PHOSPHORUS 4.4 MG/DL (2.5-4.9); POTASSIUM 3.9 MMOL/L (3.5-5.1); SODIUM 141 MMOL/L (136-145)
[2017-07-16] MEDS: Theophylline ER 100mg ORAL SCH ×2 (09:18→20:44)
[2017-07-16] MEDS: Pantoprazole Inj IV SCH (09:18)
[2017-07-16] MEDS: Docusate 100mg cap ORAL SCH (09:21)
[2017-07-16] MEDS: Heparin 5000 units/ml inj SUBQ SCH ×2 (09:21→20:45)
[2017-07-16] MEDS: carBAMazepine 200mg tab ORAL SCH ×4 (09:21→20:44)
[2017-07-16] MEDS: Dyna-Hex 2% Top Sol 2oz TOPIC SCH ×2 (09:22→20:14)
--- NOTE | 2017-07-16 10:15 | Nephrology Progress Note ---
Assessment/Plan Assessment 1. hypokalemia resolved 2. respiratory failure 3. hypotension 4. hypomagnesemia Plan plan to give NS bolus monitoring out put continue iv antibiotic monitoring renal function monitoring electrolyte replace as need avoid any NSAID Subjective Constitutional: Reports: no symptoms HEENT: Reports: no symptoms Genitourinary: Reports: no symptoms Neurologic/Psychiatric: Reports: no symptoms Subjective extubated not responsive on dopamine Objective Objective Last 24 Hour Vital Signs Date Time Temp Pulse Resp B/P (MAP) Pulse Ox O2 Delivery O2 Flow Rate FiO2 07/16/17 07:07 Nasal Cannula 2.0 28 07/16/17 07:07 100 Nasal Cannula 2.0 28 07/16/17 07:00 116/61 07/16/17 06:45 93 24 102/52 97 Nasal Cannula 2.0 07/16/17 06:30 92 24 96/58 97 Nasal Cannula 2.0 07/16/17 06:15 95 26 105/45 100 Nasal Cannula 2.0 07/16/17 06:00 86 26 99/48 100 Nasal Cannula 2.0 07/16/17 06:00 101/64 07/16/17 05:45 92 26 99/56 100 Nasal Cannula 2.0 07/16/17 05:30 92 26 101/56 100 Nasal Cannula 2.0 07/16/17 05:15 98 26 92/60 100 Nasal Cannula 2.0 07/16/17 05:00 79 26 99/53 100 Nasal Cannula 2.0 07/16/17 05:00 94/63 07/16/17 04:45 88 28 107/56 98 Nasal Cannula 2.0 07/16/17 04:30 100 28 106/42 98 Nasal Cannula 2.0 07/16/17 04:15 79 26 99/53 100 Nasal Cannula 2.0 07/16/17 04:14 94/47 07/16/17 04:00 83 07/16/17 04:00 98.0 81 30 99/53 100 Nasal Cannula 2.0 07/16/17 04:00 2.0 07/16/17 04:00 94/47 07/16/17 03:45 81 30 94/47 100 Nasal Cannula 2.0 07/16/17 03:30 83 30 94/57 100 Nasal Cannula 2.0 07/16/17 03:15 79 27 98/50 100 Nasal Cannula 2.0 07/16/17 03:00 105/47 07/16/17 03:00 75 28 105/47 99 Nasal Cannula 2.0 07/16/17 02:45 88 27 88/47 97 Nasal Cannula 2.0 07/16/17 02:30 89 26 98/50 98 Nasal Cannula 2.0 07/16/17 02:15 89 26 98/52 95 Nasal Cannula 2.0 07/16/17 02:00 102 25 84/55 97 Nasal Cannula 2.0 07/16/17 02:00 84/55 07/16/17 01:45 90 26 96/57 98 Nasal Cannula 2.0 07/16/17 01:30 90 16 89/52 100 Nasal Cannula 2.0 07/16/17 01:15 85 16 94/50 100 Nasal Cannula 2.0 07/16/17 01:00 81 16 95/50 100 Simple Mask 2.0 07/16/17 01:00 96/50 07/16/17 00:45 80 16 98/52 100 Nasal Cannula 2.0 07/16/17 00:30 78 16 93/50 100 Nasal Cannula 2.0 07/16/17 00:15 78 16 95/51 100 Nasal Cannula 2.0 07/16/17 00:00 2.0 07/16/17 00:00 95/52 07/16/17 00:00 98.0 79 16 95/52 100 Nasal Cannula 2.0 07/16/17 00:00 78 07/15/17 23:45 78 16 95/51 100 Nasal Cannula 2.0 07/15/17 23:30 78 16 95/51 100 Nasal Cannula 2.0 07/15/17 23:15 79 16 92/47 100 Nasal Cannula 2.0 07/15/17 23:00 82 16 96/48 100 Nasal Cannula 2.0 07/15/17 23:00 90/48 07/15/17 22:45 80 16 98/48 100 Nasal Cannula 2.0 07/15/17 22:30 81 16 94/48 100 Nasal Cannula 2.0 07/15/17 22:15 79 16 94/51 100 Nasal Cannula 2.0 07/15/17 22:00 92/47 07/15/17 22:00 80 16 92/47 100 Nasal Cannula 2.0 07/15/17 21:45 80 16 97/50 100 Nasal Cannula 2.0 07/15/17 21:30 81 16 102/48 100 Nasal Cannula 2.0 07/15/17 21:15 77 16 92/51 100 Nasal Cannula 2.0 07/15/17 21:10 109/62 07/15/17 21:00 85 16 92/51 100 Nasal Cannula 2.0 07/15/17 20:45 89 16 92/51 100 Nasal Cannula 2.0 07/15/17 20:30 98 16 113/58 100 Nasal Cannula 2.0 07/15/17 20:15 77 16 98/52 100 Nasal Cannula 2.0 07/15/17 20:00 100 07/15/17 20:00 98.0 81 16 93/77 100 Non-Rebreather 100 07/15/17 20:00 Nasal Cannula 2.0 28 07/15/17 20:00 Nasal Cannula 2.0 28 07/15/17 20:00 100 Nasal Cannula 2.0 28 07/15/17 20:00 91 07/15/17 19:45 88 16 94/50 100 Non-Rebreather 100 07/15/17 19:30 89 16 98/60 100 Non-Rebreather 100 07/15/17 19:15 85 16 98/55 100 Mechanical Ventilator 30 07/15/17 19:00 86 16 116/68 100 Mechanical Ventilator 30 07/15/17 18:45 78 16 109/62 100 Mechanical Ventilator 30 07/15/17 18:30 89 16 108/63 100 Mechanical Ventilator 30 07/15/17 18:15 77 16 103/61 100 Mechanical Ventilator 30 07/15/17 18:00 79 16 112/75 100 Mechanical Ventilator 30 07/15/17 17:45 80 16 108/62 100 Mechanical Ventilator 30 07/15/17 17:30 82 16 113/62 100 Mechanical Ventilator 30 07/15/17 17:18 99 16 30 07/15/17 17:15 87 16 111/64 100 Mechanical Ventilator 30 07/15/17 17:00 87 16 106/71 100 Mechanical Ventilator 30 07/15/17 16:45 89 16 103/59 100 Mechanical Ventilator 30 07/15/17 16:30 87 16 97/60 100 Mechanical Ventilator 30 07/15/17 16:15 86 16 103/64 100 Mechanical Ventilator 30 07/15/17 16:00 81 07/15/17 16:00 98.2 69 16 121/65 99 Mechanical Ventilator 30 07/15/17 16:00 30 07/15/17 15:45 69 16 110/64 100 Mechanical Ventilator 30 07/15/17 15:30 84 16 122/62 100 Mechanical Ventilator 30 07/15/17 15:15 86 16 115/63 100 Mechanical Ventilator 30 07/15/17 15:12 100 16 30 07/15/17 15:00 88 16 114/63 100 Mechanical Ventilator 30 07/15/17 14:45 82 16 118/60 100 Mechanical Ventilator 30 07/15/17 14:30 80 16 111/64 100 Mechanical Ventilator 30 07/15/17 14:15 81 16 121/60 100 Mechanical Ventilator 30 07/15/17 14:00 77 16 133/68 100 Mechanical Ventilator 30 07/15/17 13:45 75 16 143/63 99 Mechanical Ventilator 30 07/15/17 13:30 72 16 142/67 99 Mechanical Ventilator 30 07/15/17 13:15 72 16 148/61 98 Mechanical Ventilator 30 07/15/17 13:09 69 16 30 07/15/17 13:04 66/36 07/15/17 13:00 69 16 146/66 99 Mechanical Ventilator 30 07/15/17 12:45 63 16 70/46 99 Mechanical Ventilator 30 07/15/17 12:30 88 16 70/46 98 Mechanical Ventilator 30 07/15/17 12:15 80 16 94/53 100 Mechanical Ventilator 30 07/15/17 12:01 98.6 79 16 96/54 100 Mechanical Ventilator 30 07/15/17 12:00 83 07/15/17 12:00 79 16 96/54 100 Mechanical Ventilator 30 07/15/17 12:00 30 07/15/17 11:45 79 16 85/51 100 Mechanical Ventilator 30 07/15/17 11:30 81 16 90/53 100 Mechanical Ventilator 30 07/15/17 11:15 83 16 85/52 100 Mechanical Ventilator 30 07/15/17 11:04 99 16 30 07/15/17 11:00 84 16 97/63 100 Mechanical Ventilator 30 07/15/17 10:45 84 16 98/58 100 Mechanical Ventilator 30 07/15/17 10:30 89 16 84/53 99 Mechanical Ventilator 30 Laboratory Tests 07/15/17 20:00: Arterial Blood pH 7.380, Arterial Blood Partial Pressure CO2 45.3H, Arterial Blood Partial Pressure O2 286.7H, Arterial Blood HCO3 26.2H, Arterial Blood Oxygen Saturation 99.1H, Arterial Blood Base Excess 0.8, Anthony Test Positive 07/16/17 04:30: White Blood Count 8.6, Red Blood Count 3.03L, Hemoglobin 10.3L, Hematocrit 30.3L , Mean Corpuscular Volume 100H, Mean Corpuscular Hemoglobin 34.0H, Mean Corpuscular Hemoglobin Concent 34.0, Red Cell Distribution Width 12.9, Platelet Count 297, Mean Platelet Volume 5.1L, Neutrophils (%) (Auto) 55.1, Lymphocytes ( %) (Auto) 29.5, Monocytes (%) (Auto) 6.0, Eosinophils (%) (Auto) 8.5H, Basophils (%) (Auto) 0.8, Sodium Level 141, Potassium Level 3.9, Chloride Level 105, Carbon Dioxide Level 28, Anion Gap 8, Blood Urea Nitrogen 24H, Creatinine 1.0, Estimat Glomerular Filtration Rate > 60, Glucose Level 126H, Calcium Level 9.3, Phosphorus Level 4.4, Magnesium Level 2.2, Total Bilirubin 0.2, Aspartate Amino Transf (AST/SGOT) 12L, Alanine Aminotransferase (ALT/SGPT) 12, Alkaline Phosphatase 72, Total Protein 7.0, Albumin 2.3L, Globulin 4.7, Albumin/Globulin Ratio 0.5L Height (Feet): 5 Height (Inches): 11.00 Weight (Pounds): 122 Objective HEAD AND NECK: No JVP. No LAD. No thyromegaly. Extraocular movements intact. Pupils are reactive to light and accommodation. LUNGS: Clear to auscultation. CARDIAC: Regular rate and rhythm. S1 and S2. No murmur. No rub. ABDOMEN: Soft, nontender, and nondistended. EXTREMITIES: No edema. No clubbing. No cyanosis. NEUROLOGIC: The patient opened up his eyes, not following verbal commands. RANCHO SYKES Jul 16, 2017 10:15
--- NOTE | 2017-07-16 11:23 | Diagnostic Imaging Report ---
Indication: Dyspnea Comparison: Several prior studies last one 07/15/17 A single view chest radiograph was obtained. Findings: Exam limited by rotation. There is hazy opacification left midlung and base consistent with atelectasis and volume loss with a rounded lucency within the left lung. There is apparent chronic volume loss is unchanged. Small amount of left upper lobe is aerated. The right lung may be a overexpanded. NG tube and pacemaker are again noted. Patient has been extubated since the last exam. Impression: Post extubation. No significant change otherwise
--- NOTE | 2017-07-16 11:52 | Pulmonolgy Critical Care Note ---
Critical Care - Asmt/Plan Problems: (1) Septic shock (2) Acute encephalopathy (3) Acute respiratory failure (4) Collapse of left lung (5) UTI (urinary tract infection) (6) Schizophrenia (7) History of pacemaker (8) Fever Respiratory: monitor respiratory rate, adjust FIO2, CXR, other - pt saturating well after extubation but cxr showing left lung collpase and pt has audible rhonchi. 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 - Objective Last 24 Hour Vital Signs Date Time Temp Pulse Resp B/P (MAP) Pulse Ox O2 Delivery O2 Flow Rate FiO2 07/16/17 10:15 2.0 07/16/17 08:00 85 07/16/17 07:07 Nasal Cannula 2.0 28 07/16/17 07:07 100 Nasal Cannula 2.0 28 07/16/17 07:00 116/61 07/16/17 06:45 93 24 102/52 97 Nasal Cannula 2.0 07/16/17 06:30 92 24 96/58 97 Nasal Cannula 2.0 07/16/17 06:15 95 26 105/45 100 Nasal Cannula 2.0 07/16/17 06:00 86 26 99/48 100 Nasal Cannula 2.0 07/16/17 06:00 101/64 07/16/17 05:45 92 26 99/56 100 Nasal Cannula 2.0 07/16/17 05:30 92 26 101/56 100 Nasal Cannula 2.0 07/16/17 05:15 98 26 92/60 100 Nasal Cannula 2.0 07/16/17 05:00 79 26 99/53 100 Nasal Cannula 2.0 07/16/17 05:00 94/63 07/16/17 04:45 88 28 107/56 98 Nasal Cannula 2.0 07/16/17 04:30 100 28 106/42 98 Nasal Cannula 2.0 07/16/17 04:15 79 26 99/53 100 Nasal Cannula 2.0 07/16/17 04:14 94/47 07/16/17 04:00 83 07/16/17 04:00 98.0 81 30 99/53 100 Nasal Cannula 2.0 07/16/17 04:00 2.0 07/16/17 04:00 94/47 07/16/17 03:45 81 30 94/47 100 Nasal Cannula 2.0 07/16/17 03:30 83 30 94/57 100 Nasal Cannula 2.0 07/16/17 03:15 79 27 98/50 100 Nasal Cannula 2.0 07/16/17 03:00 105/47 07/16/17 03:00 75 28 105/47 99 Nasal Cannula 2.0 07/16/17 02:45 88 27 88/47 97 Nasal Cannula 2.0 07/16/17 02:30 89 26 98/50 98 Nasal Cannula 2.0 07/16/17 02:15 89 26 98/52 95 Nasal Cannula 2.0 07/16/17 02:00 102 25 84/55 97 Nasal Cannula 2.0 07/16/17 02:00 84/55 07/16/17 01:45 90 26 96/57 98 Nasal Cannula 2.0 07/16/17 01:30 90 16 89/52 100 Nasal Cannula 2.0 07/16/17 01:15 85 16 94/50 100 Nasal Cannula 2.0 07/16/17 01:00 81 16 95/50 100 Simple Mask 2.0 07/16/17 01:00 96/50 07/16/17 00:45 80 16 98/52 100 Nasal Cannula 2.0 07/16/17 00:30 78 16 93/50 100 Nasal Cannula 2.0 07/16/17 00:15 78 16 95/51 100 Nasal Cannula 2.0 07/16/17 00:00 2.0 07/16/17 00:00 95/52 07/16/17 00:00 98.0 79 16 95/52 100 Nasal Cannula 2.0 07/16/17 00:00 78 07/15/17 23:45 78 16 95/51 100 Nasal Cannula 2.0 07/15/17 23:30 78 16 95/51 100 Nasal Cannula 2.0 07/15/17 23:15 79 16 92/47 100 Nasal Cannula 2.0 07/15/17 23:00 82 16 96/48 100 Nasal Cannula 2.0 07/15/17 23:00 90/48 07/15/17 22:45 80 16 98/48 100 Nasal Cannula 2.0 07/15/17 22:30 81 16 94/48 100 Nasal Cannula 2.0 07/15/17 22:15 79 16 94/51 100 Nasal Cannula 2.0 07/15/17 22:00 92/47 07/15/17 22:00 80 16 92/47 100 Nasal Cannula 2.0 07/15/17 21:45 80 16 97/50 100 Nasal Cannula 2.0 07/15/17 21:30 81 16 102/48 100 Nasal Cannula 2.0 07/15/17 21:15 77 16 92/51 100 Nasal Cannula 2.0 07/15/17 21:10 109/62 07/15/17 21:00 85 16 92/51 100 Nasal Cannula 2.0 07/15/17 20:45 89 16 92/51 100 Nasal Cannula 2.0 07/15/17 20:30 98 16 113/58 100 Nasal Cannula 2.0 07/15/17 20:15 77 16 98/52 100 Nasal Cannula 2.0 07/15/17 20:00 100 07/15/17 20:00 98.0 81 16 93/77 100 Non-Rebreather 100 07/15/17 20:00 Nasal Cannula 2.0 28 07/15/17 20:00 Nasal Cannula 2.0 28 07/15/17 20:00 100 Nasal Cannula 2.0 28 07/15/17 20:00 91 07/15/17 19:45 88 16 94/50 100 Non-Rebreather 100 07/15/17 19:30 89 16 98/60 100 Non-Rebreather 100 07/15/17 19:15 85 16 98/55 100 Mechanical Ventilator 30 07/15/17 19:00 86 16 116/68 100 Mechanical Ventilator 30 07/15/17 18:45 78 16 109/62 100 Mechanical Ventilator 30 07/15/17 18:30 89 16 108/63 100 Mechanical Ventilator 30 07/15/17 18:15 77 16 103/61 100 Mechanical Ventilator 30 07/15/17 18:00 79 16 112/75 100 Mechanical Ventilator 30 07/15/17 17:45 80 16 108/62 100 Mechanical Ventilator 30 10/30/17 17:30 82 16 113/62 100 Mechanical Ventilator 30 07/15/17 17:18 99 16 30 07/15/17 17:15 87 16 111/64 100 Mechanical Ventilator 30 07/15/17 17:00 87 16 106/71 100 Mechanical Ventilator 30 07/15/17 16:45 89 16 103/59 100 Mechanical Ventilator 30 07/15/17 16:30 87 16 97/60 100 Mechanical Ventilator 30 07/15/17 16:15 86 16 103/64 100 Mechanical Ventilator 30 07/15/17 16:00 81 07/15/17 16:00 98.2 69 16 121/65 99 Mechanical Ventilator 30 07/15/17 16:00 30 07/15/17 15:45 69 16 110/64 100 Mechanical Ventilator 30 07/15/17 15:30 84 16 122/62 100 Mechanical Ventilator 30 07/15/17 15:15 86 16 115/63 100 Mechanical Ventilator 30 07/15/17 15:12 100 16 30 07/15/17 15:00 88 16 114/63 100 Mechanical Ventilator 30 07/15/17 14:45 82 16 118/60 100 Mechanical Ventilator 30 07/15/17 14:30 80 16 111/64 100 Mechanical Ventilator 30 07/15/17 14:15 81 16 121/60 100 Mechanical Ventilator 30 07/15/17 14:00 77 16 133/68 100 Mechanical Ventilator 30 07/15/17 13:45 75 16 143/63 99 Mechanical Ventilator 30 07/15/17 13:30 72 16 142/67 99 Mechanical Ventilator 30 07/15/17 13:15 72 16 148/61 98 Mechanical Ventilator 30 07/15/17 13:09 69 16 30 07/15/17 13:04 66/36 07/15/17 13:00 69 16 146/66 99 Mechanical Ventilator 30 07/15/17 12:45 63 16 70/46 99 Mechanical Ventilator 30 07/15/17 12:30 88 16 70/46 98 Mechanical Ventilator 30 07/15/17 12:15 80 16 94/53 100 Mechanical Ventilator 30 07/15/17 12:01 98.6 79 16 96/54 100 Mechanical Ventilator 30 07/15/17 12:00 83 07/15/17 12:00 79 16 96/54 100 Mechanical Ventilator 30 07/15/17 12:00 30 Status: sedated Condition: critical HEENT: atraumatic Heart: HR/BP stable, HR/BP unstable Abdomen: soft, non-tender Extremities: no C/C/E, edema Micro: Microbiology Date/Time Source Procedure Growth Status 07/13/17 15:00 Blood Blood Culture - Preliminary NO GROWTH AFTER 48 HOURS Resulted 07/13/17 15:00 Blood Blood Culture - Preliminary NO GROWTH AFTER 48 HOURS Resulted 07/13/17 15:10 Indwelling Cath Urine Culture - Final Providencia Stuartii Enterococcus Faecium - Vre Complete Critical Care - Subjective ROS Limited/Unobtainable: No Interval Events: self extubated again, loud audible rhonchi Condition: critical FI02: 28 Vent Support Breath Rate: 16 Vent Support Mode: AC Vent Tidal Volume: 700 Sputum Amount: Small PIP: 23 Tube Feeding Amount: 30 I&O: Intake and Output 07/16/17 07/17/17 19:00 07:00 Intake Total 240 ml Output Total 450 ml Balance -210 ml Tube Feeding 120 ml Other 120 ml Output Urine Total 450 ml CXR: left lung almost entirely collapsed ET-Tube: 8.0 ET Position: 21 Labs: Laboratory Tests Test 07/15/17 20:00 07/16/17 04:30 Arterial Blood pH 7.380 (7.350-7.450) Arterial Blood Partial Pressure CO2 45.3 mmHg (35.0-45.0) H Arterial Blood Partial Pressure O2 286.7 mmHg (75.0-100.0) H Arterial Blood HCO3 26.2 mmol/L (22.0-26.0) H Arterial Blood Oxygen Saturation 99.1 % (92.0-98.0) H Arterial Blood Base Excess 0.8 Anthony Test Positive White Blood Count 8.6 K/UL (4.8-10.8) Red Blood Count 3.03 M/UL (4.70-6.10) L Hemoglobin 10.3 G/DL (14.2-18.0) L Hematocrit 30.3 % (42.0-52.0) L Mean Corpuscular Volume 100 FL (80-99) H Mean Corpuscular Hemoglobin 34.0 PG (27.0-31.0) H Mean Corpuscular Hemoglobin Concent 34.0 G/DL (32.0-36.0) Red Cell Distribution Width 12.9 % (11.6-14.8) Platelet Count 297 K/UL (150-450) Mean Platelet Volume 5.1 FL (6.5-10.1) L Neutrophils (%) (Auto) 55.1 % (45.0-75.0) Lymphocytes (%) (Auto) 29.5 % (20.0-45.0) Monocytes (%) (Auto) 6.0 % (1.0-10.0) Eosinophils (%) (Auto) 8.5 % (0.0-3.0) H Basophils (%) (Auto) 0.8 % (0.0-2.0) Sodium Level 141 MMOL/L (136-145) Potassium Level 3.9 MMOL/L (3.5-5.1) Chloride Level 105 MMOL/L (98-107) Carbon Dioxide Level 28 MMOL/L (21-32) Anion Gap 8 mmol/L (5-15) Blood Urea Nitrogen 24 mg/dL (7-18) H Creatinine 1.0 MG/DL (0.55-1.30) Estimat Glomerular Filtration Rate > 60 mL/min (>60) Glucose Level 126 MG/DL (74-106) H Calcium Level 9.3 MG/DL (8.5-10.1) Phosphorus Level 4.4 MG/DL (2.5-4.9) Magnesium Level 2.2 MG/DL (1.8-2.4) Total Bilirubin 0.2 MG/DL (0.2-1.0) Aspartate Amino Transf (AST/SGOT) 12 U/L (15-37) L Alanine Aminotransferase (ALT/SGPT) 12 U/L (12-78) Alkaline Phosphatase 72 U/L (46-116) Total Protein 7.0 G/DL (6.4-8.2) Albumin 2.3 G/DL (3.4-5.0) L Globulin 4.7 g/dL Albumin/Globulin Ratio 0.5 (1.0-2.7) L GWEN MARTE Jul 16, 2017 11:52
[2017-07-16] MEDS ORDERED: Lidocaine 1% Plain 30 ml INJ PRN (12:15)
[2017-07-16] MEDS ORDERED: Heparin 2000 units/Ns 1000ml INJ PRN (12:15)
[2017-07-16] MEDS ORDERED: Tubing IV Secondary IV ONE (13:51)
--- NOTE | 2017-07-16 14:05 | General Progress Note ---
Assessment/Plan Status: stable, progressing Assessment/Plan Dementia schizophrenia encephalopathy -zyprexa -ativan Subjective Allergies: Coded Allergies: CHLORPROMAZINE (Verified Allergy, Unknown, 06/23/17) ERYTHROMYCIN BASE (Verified Allergy, Unknown, 06/23/17) Uncoded Allergies: TAPE (Allergy, Unknown, 06/23/17) Subjective nad calm and no agitation the pt is uncooperative at times. sleeps most of the day. Objective Last 24 Hour Vital Signs Date Time Temp Pulse Resp B/P (MAP) Pulse Ox O2 Delivery O2 Flow Rate FiO2 07/16/17 13:08 108/47 07/16/17 12:00 66 07/16/17 10:15 2.0 07/16/17 08:00 85 07/16/17 07:07 Nasal Cannula 2.0 28 07/16/17 07:07 100 Nasal Cannula 2.0 28 07/16/17 07:00 116/61 07/16/17 06:45 93 24 102/52 97 Nasal Cannula 2.0 07/16/17 06:30 92 24 96/58 97 Nasal Cannula 2.0 07/16/17 06:15 95 26 105/45 100 Nasal Cannula 2.0 07/16/17 06:00 86 26 99/48 100 Nasal Cannula 2.0 07/16/17 06:00 101/64 07/16/17 05:45 92 26 99/56 100 Nasal Cannula 2.0 07/16/17 05:30 92 26 101/56 100 Nasal Cannula 2.0 07/16/17 05:15 98 26 92/60 100 Nasal Cannula 2.0 07/16/17 05:00 79 26 99/53 100 Nasal Cannula 2.0 07/16/17 05:00 94/63 07/16/17 04:45 88 28 107/56 98 Nasal Cannula 2.0 07/16/17 04:30 100 28 106/42 98 Nasal Cannula 2.0 07/16/17 04:15 79 26 99/53 100 Nasal Cannula 2.0 07/16/17 04:14 94/47 07/16/17 04:00 83 07/16/17 04:00 98.0 81 30 99/53 100 Nasal Cannula 2.0 07/16/17 04:00 2.0 07/16/17 04:00 94/47 07/16/17 03:45 81 30 94/47 100 Nasal Cannula 2.0 07/16/17 03:30 83 30 94/57 100 Nasal Cannula 2.0 07/16/17 03:15 79 27 98/50 100 Nasal Cannula 2.0 07/16/17 03:00 105/47 07/16/17 03:00 75 28 105/47 99 Nasal Cannula 2.0 07/16/17 02:45 88 27 88/47 97 Nasal Cannula 2.0 07/16/17 02:30 89 26 98/50 98 Nasal Cannula 2.0 07/16/17 02:15 89 26 98/52 95 Nasal Cannula 2.0 07/16/17 02:00 102 25 84/55 97 Nasal Cannula 2.0 07/16/17 02:00 84/55 07/16/17 01:45 90 26 96/57 98 Nasal Cannula 2.0 07/16/17 01:30 90 16 89/52 100 Nasal Cannula 2.0 07/16/17 01:15 85 16 94/50 100 Nasal Cannula 2.0 07/16/17 01:00 81 16 95/50 100 Simple Mask 2.0 07/16/17 01:00 96/50 07/16/17 00:45 80 16 98/52 100 Nasal Cannula 2.0 07/16/17 00:30 78 16 93/50 100 Nasal Cannula 2.0 07/16/17 00:15 78 16 95/51 100 Nasal Cannula 2.0 07/16/17 00:00 2.0 07/16/17 00:00 95/52 07/16/17 00:00 98.0 79 16 95/52 100 Nasal Cannula 2.0 07/16/17 00:00 78 07/15/17 23:45 78 16 95/51 100 Nasal Cannula 2.0 07/15/17 23:30 78 16 95/51 100 Nasal Cannula 2.0 07/15/17 23:15 79 16 92/47 100 Nasal Cannula 2.0 07/15/17 23:00 82 16 96/48 100 Nasal Cannula 2.0 07/15/17 23:00 90/48 07/15/17 22:45 80 16 98/48 100 Nasal Cannula 2.0 07/15/17 22:30 81 16 94/48 100 Nasal Cannula 2.0 07/15/17 22:15 79 16 94/51 100 Nasal Cannula 2.0 07/15/17 22:00 92/47 07/15/17 22:00 80 16 92/47 100 Nasal Cannula 2.0 07/15/17 21:45 80 16 97/50 100 Nasal Cannula 2.0 07/15/17 21:30 81 16 102/48 100 Nasal Cannula 2.0 07/15/17 21:15 77 16 92/51 100 Nasal Cannula 2.0 07/15/17 21:10 109/62 07/15/17 21:00 85 16 92/51 100 Nasal Cannula 2.0 07/15/17 20:45 89 16 92/51 100 Nasal Cannula 2.0 07/15/17 20:30 98 16 113/58 100 Nasal Cannula 2.0 07/15/17 20:15 77 16 98/52 100 Nasal Cannula 2.0 07/15/17 20:00 100 07/15/17 20:00 98.0 81 16 93/77 100 Non-Rebreather 100 07/15/17 20:00 Nasal Cannula 2.0 28 07/15/17 20:00 Nasal Cannula 2.0 28 07/15/17 20:00 100 Nasal Cannula 2.0 28 07/15/17 20:00 91 07/15/17 19:45 88 16 94/50 100 Non-Rebreather 100 07/15/17 19:30 89 16 98/60 100 Non-Rebreather 100 07/15/17 19:15 85 16 98/55 100 Mechanical Ventilator 30 07/15/17 19:00 86 16 116/68 100 Mechanical Ventilator 30 07/15/17 18:45 78 16 109/62 100 Mechanical Ventilator 30 07/15/17 18:30 89 16 108/63 100 Mechanical Ventilator 30 07/15/17 18:15 77 16 103/61 100 Mechanical Ventilator 30 07/15/17 18:00 79 16 112/75 100 Mechanical Ventilator 30 07/15/17 17:45 80 16 108/62 100 Mechanical Ventilator 30 07/15/17 17:30 82 16 113/62 100 Mechanical Ventilator 30 07/15/17 17:18 99 16 30 07/15/17 17:15 87 16 111/64 100 Mechanical Ventilator 30 07/15/17 17:00 87 16 106/71 100 Mechanical Ventilator 30 07/15/17 16:45 89 16 103/59 100 Mechanical Ventilator 30 07/15/17 16:30 87 16 97/60 100 Mechanical Ventilator 30 07/15/17 16:15 86 16 103/64 100 Mechanical Ventilator 30 07/15/17 16:00 81 07/15/17 16:00 98.2 69 16 121/65 99 Mechanical Ventilator 30 07/15/17 16:00 30 07/15/17 15:45 69 16 110/64 100 Mechanical Ventilator 30 07/15/17 15:30 84 16 122/62 100 Mechanical Ventilator 30 07/15/17 15:15 86 16 115/63 100 Mechanical Ventilator 30 07/15/17 15:12 100 16 30 07/15/17 15:00 88 16 114/63 100 Mechanical Ventilator 30 07/15/17 14:45 82 16 118/60 100 Mechanical Ventilator 30 07/15/17 14:30 80 16 111/64 100 Mechanical Ventilator 30 07/15/17 14:15 81 16 121/60 100 Mechanical Ventilator 30 Intake and Output 07/16/17 07/17/17 19:00 07:00 Intake Total 686.030 ml Output Total 510 ml Balance 176.030 ml IV Total 416.030 ml Tube Feeding 150 ml Other 120 ml Output Urine Total 510 ml Laboratory Tests 07/15/17 20:00: Arterial Blood pH 7.380, Arterial Blood Partial Pressure CO2 45.3H, Arterial Blood Partial Pressure O2 286.7H, Arterial Blood HCO3 26.2H, Arterial Blood Oxygen Saturation 99.1H, Arterial Blood Base Excess 0.8, Anthony Test Positive 07/16/17 04:30: White Blood Count 8.6, Red Blood Count 3.03L, Hemoglobin 10.3L, Hematocrit 30.3L , Mean Corpuscular Volume 100H, Mean Corpuscular Hemoglobin 34.0H, Mean Corpuscular Hemoglobin Concent 34.0, Red Cell Distribution Width 12.9, Platelet Count 297, Mean Platelet Volume 5.1L, Neutrophils (%) (Auto) 55.1, Lymphocytes ( %) (Auto) 29.5, Monocytes (%) (Auto) 6.0, Eosinophils (%) (Auto) 8.5H, Basophils (%) (Auto) 0.8, Sodium Level 141, Potassium Level 3.9, Chloride Level 105, Carbon Dioxide Level 28, Anion Gap 8, Blood Urea Nitrogen 24H, Creatinine 1.0, Estimat Glomerular Filtration Rate > 60, Glucose Level 126H, Calcium Level 9.3, Phosphorus Level 4.4, Magnesium Level 2.2, Total Bilirubin 0.2, Aspartate Amino Transf (AST/SGOT) 12L, Alanine Aminotransferase (ALT/SGPT) 12, Alkaline Phosphatase 72, Total Protein 7.0, Albumin 2.3L, Globulin 4.7, Albumin/Globulin Ratio 0.5L 07/16/17 13:30: Vancomycin Level Trough [Pending] Height (Feet): 5 Height (Inches): 11.00 Weight (Pounds): 122 General Appearance: no apparent distress, alert Neurologic: alert, responsive, depressed affect Hill Hare M.D. Jul 16, 2017 14:05
--- NOTE | 2017-07-16 14:22 | Anethesia Preoperative Eval ---
Anesthesia Pre-op PMH/ROS General Date of Evaluation: Jul 16, 2017 Time of Evaluation: 14:11 Anesthesiologist: Josh ASA Score: ASA 4 Mallampati Score Class I : Soft palate, uvula, fauces, pillars visible Class II: Soft palate, uvula, fauces visible Class III: Soft palate, base of uvula visible Class IV: Only hard plate visible Mallampati Classification: Class III Surgeon: Kayla Diagnosis: Respiratory failure Surgical Procedure: Tracheostomy Anesthesia History: none Social History: smoking - h/o Allergies: Coded Allergies: CHLORPROMAZINE (Verified Allergy, Unknown, 06/23/17) ERYTHROMYCIN BASE (Verified Allergy, Unknown, 06/23/17) Uncoded Allergies: TAPE (Allergy, Unknown, 06/23/17) Medications: see eMAR Past Medical History Cardiovascular: Reports: HTN, Denies: CAD, OR, valve dz, arrhythmia, other Pulmonary: Reports: COPD, other - respiratory failure Gastrointestinal/Genitourinary: Reports: other - dysphagia, Denies: GERD, CRI, ESRD Neurologic/Psychiatric: Reports: dementia, other - schizophrenia, Denies: CVA, depression/anxiety, TIA Endocrine: Denies: DM, hypothyroidism, steroids, other HEENT: Denies: cataract (L), cataract (R), glaucoma, PECHANGA (L), PECHANGA (R), other Hematology/Immune: Reports: anemia - mild, Denies: DVT, bleeding disorder, other Musculoskeletal/Integumentary: Reports: DJD Other: other - malnourished PMH Narrative: as above PSxH Narrative: see H&P Anesthesia Pre-op Phys. Exam Physician Exam Last Vital Signs Date Time Temp Pulse Resp B/P (MAP) Pulse Ox O2 Delivery O2 Flow Rate FiO2 07/16/17 13:08 108/47 07/16/17 12:00 66 07/16/17 10:15 2.0 07/16/17 07:07 Nasal Cannula 28 07/16/17 07:07 100 07/16/17 06:45 24 07/16/17 04:00 98.0 Constitutional: NAD Neurologic: other - unable to obtaine Cardiovascular: RRR Respiratory: other - diminished breath sounds bilaterally some rhonky Gastrointestinal: S/NT/ND Airway Exam Mallampati Score: Class III MO: limited Neck: stiff ROM: limited Teeth: missing Dentures: no upper, no lower Anesthesia Pre-op A/P Labs Hematology Test 07/16/17 04:30 White Blood Count 8.6 K/UL (4.8-10.8) Red Blood Count 3.03 M/UL (4.70-6.10) L Hemoglobin 10.3 G/DL (14.2-18.0) L Hematocrit 30.3 % (42.0-52.0) L Mean Corpuscular Volume 100 FL (80-99) H Mean Corpuscular Hemoglobin 34.0 PG (27.0-31.0) H Mean Corpuscular Hemoglobin Concent 34.0 G/DL (32.0-36.0) Red Cell Distribution Width 12.9 % (11.6-14.8) Platelet Count 297 K/UL (150-450) Mean Platelet Volume 5.1 FL (6.5-10.1) L Neutrophils (%) (Auto) 55.1 % (45.0-75.0) Lymphocytes (%) (Auto) 29.5 % (20.0-45.0) Monocytes (%) (Auto) 6.0 % (1.0-10.0) Eosinophils (%) (Auto) 8.5 % (0.0-3.0) H Basophils (%) (Auto) 0.8 % (0.0-2.0) Chemistry Test 07/16/17 04:30 Sodium Level 141 MMOL/L (136-145) Potassium Level 3.9 MMOL/L (3.5-5.1) Chloride Level 105 MMOL/L (98-107) Carbon Dioxide Level 28 MMOL/L (21-32) Anion Gap 8 mmol/L (5-15) Blood Urea Nitrogen 24 mg/dL (7-18) H Creatinine 1.0 MG/DL (0.55-1.30) Estimat Glomerular Filtration Rate > 60 mL/min (>60) Glucose Level 126 MG/DL (74-106) H Calcium Level 9.3 MG/DL (8.5-10.1) Phosphorus Level 4.4 MG/DL (2.5-4.9) Magnesium Level 2.2 MG/DL (1.8-2.4) Total Bilirubin 0.2 MG/DL (0.2-1.0) Aspartate Amino Transf (AST/SGOT) 12 U/L (15-37) L Alanine Aminotransferase (ALT/SGPT) 12 U/L (12-78) Alkaline Phosphatase 72 U/L (46-116) Total Protein 7.0 G/DL (6.4-8.2) Albumin 2.3 G/DL (3.4-5.0) L Globulin 4.7 g/dL Albumin/Globulin Ratio 0.5 (1.0-2.7) L Risk Assessment & Plan Assessment: ASA 4 Plan: GA with ETT Status Change Before Surgery: No Pre-Antibiotics Drug: as scheduled JOSÉ MIGUEL NUGENT M.D. Jul 16, 2017 14:22
--- NOTE | 2017-07-16 15:01 | Infectious Diseases Prog Note ---
Assessment/Plan Problems: (1) HCAP (healthcare-associated pneumonia) Assessment & Plan: due to left lung collapse again, S/P reintubation, and self extubation , continue meropenem and vancomycin since he developed left lung consolidation after his lung collapsed again with fever , pending sputum culture , monitor CXR, and WBC, continue nebulizers as needed (2) Acute respiratory failure Assessment & Plan: due to left lung collapse , S/P re-intubation and mechanical ventilation. 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 ,continue meropenem to treat for two weeks Subjective ROS Limited/Unobtainable: Yes Allergies: Coded Allergies: CHLORPROMAZINE (Verified Allergy, Unknown, 06/23/17) ERYTHROMYCIN BASE (Verified Allergy, Unknown, 06/23/17) Uncoded Allergies: TAPE (Allergy, Unknown, 06/23/17) Subjective he is self extubated him self last night, now on nasal canula , not in distress , no fever , no diarrhea, on pressor Objective Vital Signs Last 24 Hour Vital Signs Date Time Temp Pulse Resp B/P (MAP) Pulse Ox O2 Delivery O2 Flow Rate FiO2 07/16/17 13:08 108/47 07/16/17 12:00 66 07/16/17 10:15 2.0 07/16/17 08:00 85 07/16/17 07:07 Nasal Cannula 2.0 28 07/16/17 07:07 100 Nasal Cannula 2.0 28 07/16/17 07:00 116/61 07/16/17 06:45 93 24 102/52 97 Nasal Cannula 2.0 07/16/17 06:30 92 24 96/58 97 Nasal Cannula 2.0 07/16/17 06:15 95 26 105/45 100 Nasal Cannula 2.0 07/16/17 06:00 86 26 99/48 100 Nasal Cannula 2.0 07/16/17 06:00 101/64 07/16/17 05:45 92 26 99/56 100 Nasal Cannula 2.0 07/16/17 05:30 92 26 101/56 100 Nasal Cannula 2.0 07/16/17 05:15 98 26 92/60 100 Nasal Cannula 2.0 07/16/17 05:00 79 26 99/53 100 Nasal Cannula 2.0 07/16/17 05:00 94/63 07/16/17 04:45 88 28 107/56 98 Nasal Cannula 2.0 07/16/17 04:30 100 28 106/42 98 Nasal Cannula 2.0 07/16/17 04:15 79 26 99/53 100 Nasal Cannula 2.0 07/16/17 04:14 94/47 07/16/17 04:00 83 07/16/17 04:00 98.0 81 30 99/53 100 Nasal Cannula 2.0 07/16/17 04:00 2.0 07/16/17 04:00 94/47 07/16/17 03:45 81 30 94/47 100 Nasal Cannula 2.0 07/16/17 03:30 83 30 94/57 100 Nasal Cannula 2.0 07/16/17 03:15 79 27 98/50 100 Nasal Cannula 2.0 07/16/17 03:00 105/47 07/16/17 03:00 75 28 105/47 99 Nasal Cannula 2.0 07/16/17 02:45 88 27 88/47 97 Nasal Cannula 2.0 07/16/17 02:30 89 26 98/50 98 Nasal Cannula 2.0 07/16/17 02:15 89 26 98/52 95 Nasal Cannula 2.0 07/16/17 02:00 102 25 84/55 97 Nasal Cannula 2.0 07/16/17 02:00 84/55 07/16/17 01:45 90 26 96/57 98 Nasal Cannula 2.0 07/16/17 01:30 90 16 89/52 100 Nasal Cannula 2.0 07/16/17 01:15 85 16 94/50 100 Nasal Cannula 2.0 07/16/17 01:00 81 16 95/50 100 Simple Mask 2.0 07/16/17 01:00 96/50 07/16/17 00:45 80 16 98/52 100 Nasal Cannula 2.0 07/16/17 00:30 78 16 93/50 100 Nasal Cannula 2.0 07/16/17 00:15 78 16 95/51 100 Nasal Cannula 2.0 07/16/17 00:00 2.0 07/16/17 00:00 95/52 07/16/17 00:00 98.0 79 16 95/52 100 Nasal Cannula 2.0 07/16/17 00:00 78 07/15/17 23:45 78 16 95/51 100 Nasal Cannula 2.0 07/15/17 23:30 78 16 95/51 100 Nasal Cannula 2.0 07/15/17 23:15 79 16 92/47 100 Nasal Cannula 2.0 07/15/17 23:00 82 16 96/48 100 Nasal Cannula 2.0 07/15/17 23:00 90/48 07/15/17 22:45 80 16 98/48 100 Nasal Cannula 2.0 07/15/17 22:30 81 16 94/48 100 Nasal Cannula 2.0 07/15/17 22:15 79 16 94/51 100 Nasal Cannula 2.0 07/15/17 22:00 92/47 07/15/17 22:00 80 16 92/47 100 Nasal Cannula 2.0 07/15/17 21:45 80 16 97/50 100 Nasal Cannula 2.0 07/15/17 21:30 81 16 102/48 100 Nasal Cannula 2.0 07/15/17 21:15 77 16 92/51 100 Nasal Cannula 2.0 07/15/17 21:10 109/62 07/15/17 21:00 85 16 92/51 100 Nasal Cannula 2.0 07/15/17 20:45 89 16 92/51 100 Nasal Cannula 2.0 07/15/17 20:30 98 16 113/58 100 Nasal Cannula 2.0 07/15/17 20:15 77 16 98/52 100 Nasal Cannula 2.0 07/15/17 20:00 100 07/15/17 20:00 98.0 81 16 93/77 100 Non-Rebreather 100 07/15/17 20:00 Nasal Cannula 2.0 28 07/15/17 20:00 Nasal Cannula 2.0 28 07/15/17 20:00 100 Nasal Cannula 2.0 28 07/15/17 20:00 91 07/15/17 19:45 88 16 94/50 100 Non-Rebreather 100 07/15/17 19:30 89 16 98/60 100 Non-Rebreather 100 07/15/17 19:15 85 16 98/55 100 Mechanical Ventilator 30 07/15/17 19:00 86 16 116/68 100 Mechanical Ventilator 30 07/15/17 18:45 78 16 109/62 100 Mechanical Ventilator 30 07/15/17 18:30 89 16 108/63 100 Mechanical Ventilator 30 07/15/17 18:15 77 16 103/61 100 Mechanical Ventilator 30 07/15/17 18:00 79 16 112/75 100 Mechanical Ventilator 30 07/15/17 17:45 80 16 108/62 100 Mechanical Ventilator 30 07/15/17 17:30 82 16 113/62 100 Mechanical Ventilator 30 07/15/17 17:18 99 16 30 07/15/17 17:15 87 16 111/64 100 Mechanical Ventilator 30 07/15/17 17:00 87 16 106/71 100 Mechanical Ventilator 30 07/15/17 16:45 89 16 103/59 100 Mechanical Ventilator 30 07/15/17 16:30 87 16 97/60 100 Mechanical Ventilator 30 07/15/17 16:15 86 16 103/64 100 Mechanical Ventilator 30 07/15/17 16:00 81 07/15/17 16:00 98.2 69 16 121/65 99 Mechanical Ventilator 30 07/15/17 16:00 30 07/15/17 15:45 69 16 110/64 100 Mechanical Ventilator 30 07/15/17 15:30 84 16 122/62 100 Mechanical Ventilator 30 07/15/17 15:15 86 16 115/63 100 Mechanical Ventilator 30 07/15/17 15:12 100 16 30 07/15/17 15:00 88 16 114/63 100 Mechanical Ventilator 30 Height (Feet): 5 Height (Inches): 11.00 Weight (Pounds): 122 General Appearance: WD/WN, no acute distress HEENT: normocephalic, atraumatic, anicteric, mucous membranes moist, PERRL Respiratory/Chest: chest wall non-tender, no respiratory distress, no accessory muscle use, decreased breath sounds, expiratory wheezing Cardiovascular: normal peripheral pulses, normal rate, regular rhythm, no gallop/murmur, no JVD Abdomen: normal bowel sounds, soft, non tender, no organomegaly, non distended , no mass, no scars Extremities: no cyanosis, no clubbing Skin: no rash, no lesions, ulcers Neurologic/Psychiatric: alert, responsive Microbiology Date/Time Source Procedure Growth Status 07/13/17 15:00 Blood Blood Culture - Preliminary NO GROWTH AFTER 48 HOURS Resulted 07/13/17 15:00 Blood Blood Culture - Preliminary NO GROWTH AFTER 48 HOURS Resulted 07/13/17 15:10 Indwelling Cath Urine Culture - Final Providencia Stuartii Enterococcus Faecium - Vre Complete Laboratory Tests Test 07/15/17 20:00 07/16/17 04:30 07/16/17 13:30 Arterial Blood pH 7.380 (7.350-7.450) Arterial Blood Partial Pressure CO2 45.3 mmHg (35.0-45.0) H Arterial Blood Partial Pressure O2 286.7 mmHg (75.0-100.0) H Arterial Blood HCO3 26.2 mmol/L (22.0-26.0) H Arterial Blood Oxygen Saturation 99.1 % (92.0-98.0) H Arterial Blood Base Excess 0.8 Anthony Test Positive White Blood Count 8.6 K/UL (4.8-10.8) Red Blood Count 3.03 M/UL (4.70-6.10) L Hemoglobin 10.3 G/DL (14.2-18.0) L Hematocrit 30.3 % (42.0-52.0) L Mean Corpuscular Volume 100 FL (80-99) H Mean Corpuscular Hemoglobin 34.0 PG (27.0-31.0) H Mean Corpuscular Hemoglobin Concent 34.0 G/DL (32.0-36.0) Red Cell Distribution Width 12.9 % (11.6-14.8) Platelet Count 297 K/UL (150-450) Mean Platelet Volume 5.1 FL (6.5-10.1) L Neutrophils (%) (Auto) 55.1 % (45.0-75.0) Lymphocytes (%) (Auto) 29.5 % (20.0-45.0) Monocytes (%) (Auto) 6.0 % (1.0-10.0) Eosinophils (%) (Auto) 8.5 % (0.0-3.0) H Basophils (%) (Auto) 0.8 % (0.0-2.0) Sodium Level 141 MMOL/L (136-145) Potassium Level 3.9 MMOL/L (3.5-5.1) Chloride Level 105 MMOL/L (98-107) Carbon Dioxide Level 28 MMOL/L (21-32) Anion Gap 8 mmol/L (5-15) Blood Urea Nitrogen 24 mg/dL (7-18) H Creatinine 1.0 MG/DL (0.55-1.30) Estimat Glomerular Filtration Rate > 60 mL/min (>60) Glucose Level 126 MG/DL (74-106) H Calcium Level 9.3 MG/DL (8.5-10.1) Phosphorus Level 4.4 MG/DL (2.5-4.9) Magnesium Level 2.2 MG/DL (1.8-2.4) Total Bilirubin 0.2 MG/DL (0.2-1.0) Aspartate Amino Transf (AST/SGOT) 12 U/L (15-37) L Alanine Aminotransferase (ALT/SGPT) 12 U/L (12-78) Alkaline Phosphatase 72 U/L (46-116) Total Protein 7.0 G/DL (6.4-8.2) Albumin 2.3 G/DL (3.4-5.0) L Globulin 4.7 g/dL Albumin/Globulin Ratio 0.5 (1.0-2.7) L Vancomycin Level Trough 16.8 ug/mL (5.0-12.0) H Current Medications Medications (Trade) Dose Ordered Sig/Karen Route PRN Reason Start Time Stop Time Status Last Admin Dose Admin Carbamazepine (TEGretol) 200 mg FOUR TIMES A DAY ORAL 07/02/17 09:00 07/23/17 12:59 07/16/17 13:07 Chlorhexidine Gluconate (Cassandra-Hex 2%) 1 applic DAILY@2000 TOPIC 07/16/17 20:00 08/15/17 19:59 Dextrose (Dextrose 50%) STAT PRN IV Hypoglycemia 07/02/17 12:00 07/25/17 11:59 Docusate Sodium (Colace) 100 mg DAILY ORAL 07/02/17 09:00 07/29/17 08:59 07/16/17 09:21 Dopamine HCl/ Dextrose 250 ml @ 0 mls/hr Q24H IV 10/25/17 21:30 08/09/17 21:29 07/16/17 13:08 Heparin Sodium (Porcine) (Heparin 5000 units/ml) 5,000 units EVERY 12 HOURS SUBQ 07/02/17 09:00 07/23/17 20:59 07/16/17 09:21 Heparin Sodium/ Sodium Chloride (Heparin 2000 units/Ns 1000ml premix) 2,000 unit ONCE PRN INJ PICC LINE 07/16/17 12:15 07/17/17 23:59 Levetiracetam (Keppra) 500 mg Q12HR ORAL 07/02/17 09:00 07/23/17 20:59 07/16/17 09:18 Lidocaine HCl (Xylocaine 1% 30ml) 30 ml ONCE PRN INJ PICC PLACEMENT 07/16/17 12:15 07/17/17 23:59 Lorazepam (Ativan 2mg/ml 1ml) 2 mg Q4H PRN IV For Anxiety 07/13/17 08:45 07/20/17 08:44 07/14/17 00:13 Meropenem 1 gm/ Sodium Chloride 110 ml @ 220 mls/hr Q8HR IVPB 07/13/17 13:30 07/18/17 13:29 07/16/17 13:08 Morphine Sulfate (Morphine Sulfate) 4 mg Q4H PRN IVP PAIN 4-10 07/13/17 08:45 07/20/17 08:44 Nitroglycerin (Ntg) 0.4 mg Q5M X 3 DOSES PRN SL Prn Chest Pain 07/01/17 23:45 07/23/17 13:29 Olanzapine (ZyPREXA) 20 mg BEDTIME ORAL 07/02/17 21:00 07/24/17 08:59 07/15/17 21:02 Ondansetron HCl (Zofran) 4 mg Q6H PRN IVP Nausea & Vomiting 07/02/17 00:00 07/23/17 11:59 Pantoprazole (Protonix) 40 mg DAILY IV 07/13/17 09:00 08/12/17 08:59 07/16/17 09:18 Polyethylene Glycol (Miralax) 17 gm DAILYPRN PRN ORAL Constipation 07/13/17 08:15 08/12/17 08:14 07/13/17 09:25 Sodium Chloride 1,000 ml @ 50 mls/hr Q20H IV 07/14/17 09:00 08/13/17 08:59 07/16/17 01:02 Theophylline (Dane-Dur) 100 mg EVERY 12 HOURS ORAL 07/02/17 09:00 07/23/17 20:59 07/16/17 09:18 Vancomycin HCl (Vanco rx to dose) 1 ea DAILY PRN MISC Per rx protocol 07/13/17 12:15 08/12/17 12:14 Vancomycin HCl/ Dextrose 250 ml @ 166.667 mls/hr Q24H IVPB 07/14/17 14:30 07/19/17 14:29 07/15/17 14:03 Dafne Orourke M.D. Jul 16, 2017 15:01
[2017-07-16] MEDS: Vancomycin 1250mg/D5W 250ml IVPB SCH (15:03)
--- NOTE | 2017-07-16 21:30 | General Progress Note ---
Assessment/Plan Problem List: (1) History of pacemaker ICD Codes: Z95.0 - Presence of cardiac pacemaker SNOMED: 503721846 (2) Schizophrenia ICD Codes: F20.9 - Schizophrenia, unspecified SNOMED: 83289428 (3) Limited mobility ICD Codes: Z74.09 - Other reduced mobility SNOMED: 8362230 (4) Acute respiratory failure ICD Codes: J96.00 - Acute respiratory failure, unspecified whether with hypoxia or hypercapnia SNOMED: 60573515 (5) Sepsis ICD Codes: A41.9 - Sepsis, unspecified organism SNOMED: 50120110 (6) HCAP (healthcare-associated pneumonia) ICD Codes: J18.9 - Pneumonia, unspecified organism SNOMED: 714388179 Status: progressing Assessment/Plan pacemaker resp failure afebrile reviewed chart and labs Subjective ROS Limited/Unobtainable: Yes Constitutional: Reports: no symptoms Allergies: Coded Allergies: CHLORPROMAZINE (Verified Allergy, Unknown, 06/23/17) ERYTHROMYCIN BASE (Verified Allergy, Unknown, 06/23/17) Uncoded Allergies: TAPE (Allergy, Unknown, 06/23/17) Objective Last 24 Hour Vital Signs Date Time Temp Pulse Resp B/P (MAP) Pulse Ox O2 Delivery O2 Flow Rate FiO2 07/16/17 19:34 Nasal Cannula 2.0 28 07/16/17 19:34 100 Nasal Cannula 2.0 28 07/16/17 18:30 66 22 105/48 100 Nasal Cannula 2.0 07/16/17 18:15 69 22 107/53 98 Nasal Cannula 2.0 07/16/17 18:00 71 22 101/51 99 Nasal Cannula 2.0 07/16/17 17:45 74 22 107/68 98 Nasal Cannula 2.0 07/16/17 17:30 85 22 109/46 99 Nasal Cannula 2.0 07/16/17 17:15 67 21 93/53 97 Nasal Cannula 2.0 07/16/17 17:00 66 20 92/49 99 Nasal Cannula 2.0 07/16/17 16:45 64 20 96/52 99 Nasal Cannula 2.0 07/16/17 16:30 69 19 95/45 96 Nasal Cannula 2.0 07/16/17 16:15 70 19 103/50 95 Nasal Cannula 2.0 07/16/17 16:00 77 07/16/17 16:00 98.8 74 20 101/51 95 Nasal Cannula 2.0 07/16/17 15:45 72 21 98/50 94 Nasal Cannula 2.0 07/16/17 15:30 71 21 103/52 95 Nasal Cannula 2.0 07/16/17 15:15 73 22 96/56 95 Nasal Cannula 2.0 07/16/17 15:00 77 23 112/62 93 Nasal Cannula 2.0 07/16/17 14:45 82 21 104/52 97 Nasal Cannula 2.0 07/16/17 14:30 66 19 113/56 100 Nasal Cannula 2.0 07/16/17 14:15 63 19 93/46 98 Nasal Cannula 2.0 07/16/17 14:00 68 19 94/48 99 Nasal Cannula 2.0 07/16/17 13:45 71 19 99/48 97 Nasal Cannula 2.0 07/16/17 13:30 69 18 105/49 97 Nasal Cannula 2.0 07/16/17 13:15 69 20 112/51 95 Nasal Cannula 2.0 07/16/17 13:08 108/47 07/16/17 13:00 66 21 108/47 100 Nasal Cannula 2.0 07/16/17 12:45 65 22 124/58 100 Nasal Cannula 2.0 07/16/17 12:30 72 22 114/54 100 Nasal Cannula 2.0 07/16/17 12:15 84 24 94/48 98 Nasal Cannula 2.0 07/16/17 12:00 98.3 69 20 104/48 100 Nasal Cannula 2.0 07/16/17 12:00 66 07/16/17 11:45 74 20 104/48 98 Nasal Cannula 2.0 07/16/17 11:30 68 20 91/45 100 Nasal Cannula 2.0 07/16/17 11:15 68 20 88/44 100 Nasal Cannula 2.0 07/16/17 11:00 69 20 94/38 100 Nasal Cannula 2.0 07/16/17 10:45 71 19 98/41 100 Nasal Cannula 2.0 07/16/17 10:30 65 20 104/50 100 Nasal Cannula 2.0 07/16/17 10:15 2.0 07/16/17 10:15 69 21 105/51 100 Nasal Cannula 2.0 07/16/17 10:00 67 21 105/47 100 Nasal Cannula 2.0 07/16/17 09:45 67 21 103/52 100 Nasal Cannula 2.0 07/16/17 09:30 70 23 99/52 100 Nasal Cannula 2.0 07/16/17 09:15 76 22 116/63 100 Nasal Cannula 2.0 07/16/17 09:00 100 25 102/86 96 Nasal Cannula 2.0 07/16/17 08:45 86 21 102/54 92 Nasal Cannula 2.0 07/16/17 08:30 85 22 102/52 94 Nasal Cannula 2.0 07/16/17 08:15 86 22 106/59 96 Nasal Cannula 2.0 07/16/17 08:00 85 07/16/17 08:00 98.5 77 22 111/51 100 Nasal Cannula 2.0 07/16/17 07:45 76 22 100/52 100 Nasal Cannula 2.0 07/16/17 07:30 70 24 98/50 100 Nasal Cannula 2.0 07/16/17 07:15 91 25 94/53 99 Nasal Cannula 2.0 07/16/17 07:07 Nasal Cannula 2.0 28 07/16/17 07:07 100 Nasal Cannula 2.0 28 07/16/17 07:00 116/61 07/16/17 07:00 93 24 116/61 97 Nasal Cannula 2.0 07/16/17 06:45 93 24 102/52 97 Nasal Cannula 2.0 07/16/17 06:30 92 24 96/58 97 Nasal Cannula 2.0 07/16/17 06:15 95 26 105/45 100 Nasal Cannula 2.0 07/16/17 06:00 86 26 99/48 100 Nasal Cannula 2.0 07/16/17 06:00 101/64 07/16/17 05:45 92 26 99/56 100 Nasal Cannula 2.0 07/16/17 05:30 92 26 101/56 100 Nasal Cannula 2.0 07/16/17 05:15 98 26 92/60 100 Nasal Cannula 2.0 07/16/17 05:00 79 26 99/53 100 Nasal Cannula 2.0 07/16/17 05:00 94/63 07/16/17 04:45 88 28 107/56 98 Nasal Cannula 2.0 07/16/17 04:30 100 28 106/42 98 Nasal Cannula 2.0 07/16/17 04:15 79 26 99/53 100 Nasal Cannula 2.0 07/16/17 04:14 94/47 07/16/17 04:00 83 07/16/17 04:00 98.0 81 30 99/53 100 Nasal Cannula 2.0 07/16/17 04:00 2.0 07/16/17 04:00 94/47 07/16/17 03:45 81 30 94/47 100 Nasal Cannula 2.0 07/16/17 03:30 83 30 94/57 100 Nasal Cannula 2.0 07/16/17 03:15 79 27 98/50 100 Nasal Cannula 2.0 07/16/17 03:00 105/47 07/16/17 03:00 75 28 105/47 99 Nasal Cannula 2.0 07/16/17 02:45 88 27 88/47 97 Nasal Cannula 2.0 07/16/17 02:30 89 26 98/50 98 Nasal Cannula 2.0 07/16/17 02:15 89 26 98/52 95 Nasal Cannula 2.0 07/16/17 02:00 102 25 84/55 97 Nasal Cannula 2.0 07/16/17 02:00 84/55 07/16/17 01:45 90 26 96/57 98 Nasal Cannula 2.0 07/16/17 01:30 90 16 89/52 100 Nasal Cannula 2.0 07/16/17 01:15 85 16 94/50 100 Nasal Cannula 2.0 07/16/17 01:00 81 16 95/50 100 Simple Mask 2.0 07/16/17 01:00 96/50 07/16/17 00:45 80 16 98/52 100 Nasal Cannula 2.0 07/16/17 00:30 78 16 93/50 100 Nasal Cannula 2.0 07/16/17 00:15 78 16 95/51 100 Nasal Cannula 2.0 07/16/17 00:00 2.0 07/16/17 00:00 95/52 07/16/17 00:00 98.0 79 16 95/52 100 Nasal Cannula 2.0 07/16/17 00:00 78 07/15/17 23:45 78 16 95/51 100 Nasal Cannula 2.0 07/15/17 23:30 78 16 95/51 100 Nasal Cannula 2.0 07/15/17 23:15 79 16 92/47 100 Nasal Cannula 2.0 07/15/17 23:00 82 16 96/48 100 Nasal Cannula 2.0 07/15/17 23:00 90/48 07/15/17 22:45 80 16 98/48 100 Nasal Cannula 2.0 07/15/17 22:30 81 16 94/48 100 Nasal Cannula 2.0 07/15/17 22:15 79 16 94/51 100 Nasal Cannula 2.0 07/15/17 22:00 92/47 07/15/17 22:00 80 16 92/47 100 Nasal Cannula 2.0 07/15/17 21:45 80 16 97/50 100 Nasal Cannula 2.0 07/15/17 21:30 81 16 102/48 100 Nasal Cannula 2.0 Intake and Output 07/16/17 07/17/17 19:00 07:00 Intake Total 1964.806 ml 268.112 ml Output Total 1445 ml 320 ml Balance 519.806 ml -51.888 ml IV Total 1484.806 ml 158.112 ml Tube Feeding 360 ml 60 ml Other 120 ml 50 ml Output Urine Total 1445 ml 320 ml Laboratory Tests 07/16/17 04:30: White Blood Count 8.6, Red Blood Count 3.03L, Hemoglobin 10.3L, Hematocrit 30.3L , Mean Corpuscular Volume 100H, Mean Corpuscular Hemoglobin 34.0H, Mean Corpuscular Hemoglobin Concent 34.0, Red Cell Distribution Width 12.9, Platelet Count 297, Mean Platelet Volume 5.1L, Neutrophils (%) (Auto) 55.1, Lymphocytes ( %) (Auto) 29.5, Monocytes (%) (Auto) 6.0, Eosinophils (%) (Auto) 8.5H, Basophils (%) (Auto) 0.8, Sodium Level 141, Potassium Level 3.9, Chloride Level 105, Carbon Dioxide Level 28, Anion Gap 8, Blood Urea Nitrogen 24H, Creatinine 1.0, Estimat Glomerular Filtration Rate > 60, Glucose Level 126H, Calcium Level 9.3, Phosphorus Level 4.4, Magnesium Level 2.2, Total Bilirubin 0.2, Aspartate Amino Transf (AST/SGOT) 12L, Alanine Aminotransferase (ALT/SGPT) 12, Alkaline Phosphatase 72, Total Protein 7.0, Albumin 2.3L, Globulin 4.7, Albumin/Globulin Ratio 0.5L 07/16/17 13:30: Vancomycin Level Trough 16.8H Height (Feet): 5 Height (Inches): 11.00 Weight (Pounds): 122 Neck: supple Cardiovascular: normal rate Respiratory/Chest: lungs clear Abdomen: soft Michael Simon MD Jul 16, 2017 21:30
--- NOTE | 2017-07-16 23:30 | Cardiology Progress Note ---
Assessment/Plan Assessment/Plan 1. Recurrent respiratory failure, s/p bronchoscopy, recurrence of left lung collapse, intubated again, plan is to perform tracheostomy. 2. Septic shock, dopamine gtt increased to 12 mcg/kg/min, keep MAP >65 mmHg 3. Normal LV systolic function with LVEF at 60-65%. 4. SSS, s/p dual chamber pacemaker implantation, will have it interrogated. Subjective Subjective Extubated on NC oxygen. Sinus rhythm at 66. On dopamine gtt at 14mcg/kg/min Objective Last 24 Hour Vital Signs Date Time Temp Pulse Resp B/P (MAP) Pulse Ox O2 Delivery O2 Flow Rate FiO2 07/16/17 22:45 66 19 101/43 100 Nasal Cannula 2.0 07/16/17 22:30 67 19 96/48 100 Nasal Cannula 2.0 07/16/17 22:15 63 19 100/49 100 Nasal Cannula 2.0 07/16/17 22:00 67 19 99/48 100 Nasal Cannula 2.0 07/16/17 21:49 105/48 07/16/17 21:45 62 19 89/45 100 Nasal Cannula 2.0 07/16/17 21:30 63 19 100/49 100 Nasal Cannula 2.0 07/16/17 21:15 60 19 96/43 100 Nasal Cannula 2.0 07/16/17 21:00 62 19 102/46 100 Nasal Cannula 2.0 07/16/17 20:45 61 19 111/47 100 Nasal Cannula 2.0 07/16/17 20:30 64 19 90/47 100 Nasal Cannula 2.0 07/16/17 20:15 60 19 103/47 100 Nasal Cannula 2.0 07/16/17 20:00 98.0 62 19 103/39 100 Nasal Cannula 2.0 07/16/17 20:00 65 07/16/17 19:45 65 19 96/49 100 Nasal Cannula 2.0 07/16/17 19:34 Nasal Cannula 2.0 28 07/16/17 19:34 100 Nasal Cannula 2.0 28 07/16/17 19:30 71 19 106/54 100 Nasal Cannula 2.0 07/16/17 19:15 67 19 96/46 100 Nasal Cannula 2.0 07/16/17 19:00 69 20 90/53 100 Nasal Cannula 2.0 07/16/17 18:45 70 22 107/49 100 Nasal Cannula 2.0 07/16/17 18:30 66 22 105/48 100 Nasal Cannula 2.0 07/16/17 18:15 69 22 107/53 98 Nasal Cannula 2.0 07/16/17 18:00 71 22 101/51 99 Nasal Cannula 2.0 07/16/17 17:45 74 22 107/68 98 Nasal Cannula 2.0 07/16/17 17:30 85 22 109/46 99 Nasal Cannula 2.0 07/16/17 17:15 67 21 93/53 97 Nasal Cannula 2.0 07/16/17 17:00 66 20 92/49 99 Nasal Cannula 2.0 07/16/17 16:45 64 20 96/52 99 Nasal Cannula 2.0 07/16/17 16:30 69 19 95/45 96 Nasal Cannula 2.0 07/16/17 16:15 70 19 103/50 95 Nasal Cannula 2.0 07/16/17 16:00 77 07/16/17 16:00 98.8 74 20 101/51 95 Nasal Cannula 2.0 07/16/17 15:45 72 21 98/50 94 Nasal Cannula 2.0 07/16/17 15:30 71 21 103/52 95 Nasal Cannula 2.0 07/16/17 15:15 73 22 96/56 95 Nasal Cannula 2.0 07/16/17 15:00 77 23 112/62 93 Nasal Cannula 2.0 07/16/17 14:45 82 21 104/52 97 Nasal Cannula 2.0 07/16/17 14:30 66 19 113/56 100 Nasal Cannula 2.0 07/16/17 14:15 63 19 93/46 98 Nasal Cannula 2.0 07/16/17 14:00 68 19 94/48 99 Nasal Cannula 2.0 07/16/17 13:45 71 19 99/48 97 Nasal Cannula 2.0 07/16/17 13:30 69 18 105/49 97 Nasal Cannula 2.0 07/16/17 13:15 69 20 112/51 95 Nasal Cannula 2.0 07/16/17 13:08 108/47 07/16/17 13:00 66 21 108/47 100 Nasal Cannula 2.0 07/16/17 12:45 65 22 124/58 100 Nasal Cannula 2.0 07/16/17 12:30 72 22 114/54 100 Nasal Cannula 2.0 07/16/17 12:15 84 24 94/48 98 Nasal Cannula 2.0 07/16/17 12:00 98.3 69 20 104/48 100 Nasal Cannula 2.0 07/16/17 12:00 66 07/16/17 11:45 74 20 104/48 98 Nasal Cannula 2.0 07/16/17 11:30 68 20 91/45 100 Nasal Cannula 2.0 07/16/17 11:15 68 20 88/44 100 Nasal Cannula 2.0 07/16/17 11:00 69 20 94/38 100 Nasal Cannula 2.0 07/16/17 10:45 71 19 98/41 100 Nasal Cannula 2.0 07/16/17 10:30 65 20 104/50 100 Nasal Cannula 2.0 07/16/17 10:15 2.0 07/16/17 10:15 69 21 105/51 100 Nasal Cannula 2.0 07/16/17 10:00 67 21 105/47 100 Nasal Cannula 2.0 07/16/17 09:45 67 21 103/52 100 Nasal Cannula 2.0 07/16/17 09:30 70 23 99/52 100 Nasal Cannula 2.0 07/16/17 09:15 76 22 116/63 100 Nasal Cannula 2.0 07/16/17 09:00 100 25 102/86 96 Nasal Cannula 2.0 07/16/17 08:45 86 21 102/54 92 Nasal Cannula 2.0 07/16/17 08:30 85 22 102/52 94 Nasal Cannula 2.0 07/16/17 08:15 86 22 106/59 96 Nasal Cannula 2.0 07/16/17 08:00 85 07/16/17 08:00 98.5 77 22 111/51 100 Nasal Cannula 2.0 07/16/17 07:45 76 22 100/52 100 Nasal Cannula 2.0 07/16/17 07:30 70 24 98/50 100 Nasal Cannula 2.0 07/16/17 07:15 91 25 94/53 99 Nasal Cannula 2.0 07/16/17 07:07 Nasal Cannula 2.0 28 07/16/17 07:07 100 Nasal Cannula 2.0 07/16/17 07:00 116/61 07/16/17 07:00 93 24 116/61 97 Nasal Cannula 2.0 07/16/17 06:45 93 24 102/52 97 Nasal Cannula 2.0 07/16/17 06:30 92 24 96/58 97 Nasal Cannula 2.0 07/16/17 06:15 95 26 105/45 100 Nasal Cannula 2.0 07/16/17 06:00 86 26 99/48 100 Nasal Cannula 2.0 07/16/17 06:00 101/64 07/16/17 05:45 92 26 99/56 100 Nasal Cannula 2.0 07/16/17 05:30 92 26 101/56 100 Nasal Cannula 2.0 07/16/17 05:15 98 26 92/60 100 Nasal Cannula 2.0 07/16/17 05:00 79 26 99/53 100 Nasal Cannula 2.0 07/16/17 05:00 94/63 07/16/17 04:45 88 28 107/56 98 Nasal Cannula 2.0 07/16/17 04:30 100 28 106/42 98 Nasal Cannula 2.0 07/16/17 04:15 79 26 99/53 100 Nasal Cannula 2.0 07/16/17 04:14 94/47 07/16/17 04:00 83 07/16/17 04:00 98.0 81 30 99/53 100 Nasal Cannula 2.0 07/16/17 04:00 2.0 07/16/17 04:00 94/47 07/16/17 03:45 81 30 94/47 100 Nasal Cannula 2.0 07/16/17 03:30 83 30 94/57 100 Nasal Cannula 2.0 07/16/17 03:15 79 27 98/50 100 Nasal Cannula 2.0 07/16/17 03:00 105/47 07/16/17 03:00 75 28 105/47 99 Nasal Cannula 2.0 07/16/17 02:45 88 27 88/47 97 Nasal Cannula 2.0 07/16/17 02:30 89 26 98/50 98 Nasal Cannula 2.0 07/16/17 02:15 89 26 98/52 95 Nasal Cannula 2.0 07/16/17 02:00 102 25 84/55 97 Nasal Cannula 2.0 07/16/17 02:00 84/55 07/16/17 01:45 90 26 96/57 98 Nasal Cannula 2.0 07/16/17 01:30 90 16 89/52 100 Nasal Cannula 2.0 07/16/17 01:15 85 16 94/50 100 Nasal Cannula 2.0 07/16/17 01:00 81 16 95/50 100 Simple Mask 2.0 07/16/17 01:00 96/50 07/16/17 00:45 80 16 98/52 100 Nasal Cannula 2.0 07/16/17 00:30 78 16 93/50 100 Nasal Cannula 2.0 07/16/17 00:15 78 16 95/51 100 Nasal Cannula 2.0 07/16/17 00:00 2.0 07/16/17 00:00 95/52 07/16/17 00:00 98.0 79 16 95/52 100 Nasal Cannula 2.0 07/16/17 00:00 78 07/15/17 23:45 78 16 95/51 100 Nasal Cannula 2.0 07/15/17 23:30 78 16 95/51 100 Nasal Cannula 2.0 Intake and Output 07/16/17 07/17/17 19:00 07:00 Intake Total 1964.806 ml 377.168 ml Output Total 1445 ml 400 ml Balance 519.806 ml -22.832 ml IV Total 1484.806 ml 237.168 ml Tube Feeding 360 ml 90 ml Other 120 ml 50 ml Output Urine Total 1445 ml 400 ml 2D Echo: LVEF 60-65%, mild TR with RVSP at 33 mmHg Laboratory Tests Test 07/16/17 04:30 07/16/17 13:30 07/16/17 22:50 White Blood Count 8.6 K/UL (4.8-10.8) Red Blood Count 3.03 M/UL (4.70-6.10) L Hemoglobin 10.3 G/DL (14.2-18.0) L Hematocrit 30.3 % (42.0-52.0) L Mean Corpuscular Volume 100 FL (80-99) H Mean Corpuscular Hemoglobin 34.0 PG (27.0-31.0) H Mean Corpuscular Hemoglobin Concent 34.0 G/DL (32.0-36.0) Red Cell Distribution Width 12.9 % (11.6-14.8) Platelet Count 297 K/UL (150-450) Mean Platelet Volume 5.1 FL (6.5-10.1) L Neutrophils (%) (Auto) 55.1 % (45.0-75.0) Lymphocytes (%) (Auto) 29.5 % (20.0-45.0) Monocytes (%) (Auto) 6.0 % (1.0-10.0) Eosinophils (%) (Auto) 8.5 % (0.0-3.0) H Basophils (%) (Auto) 0.8 % (0.0-2.0) Sodium Level 141 MMOL/L (136-145) Potassium Level 3.9 MMOL/L (3.5-5.1) Chloride Level 105 MMOL/L (98-107) Carbon Dioxide Level 28 MMOL/L (21-32) Anion Gap 8 mmol/L (5-15) Blood Urea Nitrogen 24 mg/dL (7-18) H Creatinine 1.0 MG/DL (0.55-1.30) Estimat Glomerular Filtration Rate > 60 mL/min (>60) Glucose Level 126 MG/DL (74-106) H Calcium Level 9.3 MG/DL (8.5-10.1) Phosphorus Level 4.4 MG/DL (2.5-4.9) Magnesium Level 2.2 MG/DL (1.8-2.4) Total Bilirubin 0.2 MG/DL (0.2-1.0) Aspartate Amino Transf (AST/SGOT) 12 U/L (15-37) L Alanine Aminotransferase (ALT/SGPT) 12 U/L (12-78) Alkaline Phosphatase 72 U/L (46-116) Total Protein 7.0 G/DL (6.4-8.2) Albumin 2.3 G/DL (3.4-5.0) L Globulin 4.7 g/dL Albumin/Globulin Ratio 0.5 (1.0-2.7) L Vancomycin Level Trough 16.8 ug/mL (5.0-12.0) H Arterial Blood pH 7.409 (7.350-7.450) Arterial Blood Partial Pressure CO2 39.2 mmHg (35.0-45.0) Arterial Blood Partial Pressure O2 84.9 mmHg (75.0-100.0) Arterial Blood HCO3 24.2 mmol/L (22.0-26.0) Arterial Blood Oxygen Saturation 96.4 % (92.0-98.0) Arterial Blood Base Excess 0.3 Anthony Test Positive Objective HEENT: Atraumatic and normocephalic. ENT, pupils are equal, round, and reactive to light and accommodation. Pale conjunctiva, intubated. NECK: JVP cannot be assessed. No carotid bruit. Carotid upstrokes 2+ bilaterally. LUNGS: Diminished BS both bases. CVS: Normal S1, S2. no murmurs, gallops or rubs. PMI is at fourth intercostal space in the midclavicular line. ABDOMEN: Soft, nontender, and nondistended. No hepatosplenomegaly. Positive bowel sounds. EXTREMITIES: No evidence of edema, clubbing, or cyanosis. CALLUM BARON Jul 16, 2017 23:30
[2017-07-17] VITALS (57 sets, daily range): BP systolic 79–134; BP diastolic 36–69
[2017-07-17 04:44] LABS: BASOPHILS % (AUTO) 0.9 % (0.0-2.0); EOSINOPHILS % (AUTO) 9.5 % (0.0-3.0); HEMOGLOBIN 10.6 G/DL (14.2-18.0); LYMPHOCYTES % (AUTO) 29.9 % (20.0-45.0); MEAN CORPUSCULAR VOLUME 100 FL (80-99); MONOCYTES % (AUTO) 5.8 % (1.0-10.0); NEUTROPHILS % (AUTO) 53.9 % (45.0-75.0); PLATELET COUNT 302 K/UL (150-450); RED BLOOD COUNT 3.01 M/UL (4.70-6.10); RED CELL DISTRIBUTION WIDTH 12.7 % (11.6-14.8); WHITE BLOOD COUNT 8.8 K/UL (4.8-10.8)
[2017-07-17 05:00] LABS: ALANINE AMINOTRANSFERASE 15 U/L (12-78); ALBUMIN 2.3 G/DL (3.4-5.0); ALBUMIN/GLOBULIN RATIO 0.5 (1.0-2.7); ALKALINE PHOSPHATASE 65 U/L (46-116); ANION GAP 6 mmol/L (5-15); ASPARTATE AMINO TRANSFERASE 15 U/L (15-37); BILIRUBIN,TOTAL 0.2 MG/DL (0.2-1.0); BLOOD UREA NITROGEN 19 mg/dL (7-18); CALCIUM 9.2 MG/DL (8.5-10.1); CARBON DIOXIDE 29 MMOL/L (21-32); CHLORIDE 104 MMOL/L (98-107); CREATININE 0.8 MG/DL (0.55-1.30); POTASSIUM 4.1 MMOL/L (3.5-5.1); SODIUM 139 MMOL/L (136-145)
[2017-07-17] MEDS: Meropenem 1 GM in NS 110 ML IVPB SCH ×3 (05:35→21:31)
[2017-07-17] MEDS ORDERED: Albuterol/Ipratropium 3ml neb HHN PRN (05:45)
[2017-07-17] MEDS: DOPamine 400mg/250ml 250 ML IV SCH ×3 (06:36→23:30)
--- NOTE | 2017-07-17 08:15 | Pre-Procedure Note/Attestation ---
Pre-Procedure Note/Attestation Complete Prior to Procedure Planned Procedure: not applicable Procedure Narrative: Tracheostomy Indications for Procedure Pre-Operative Diagnosis: Recurrent intubation Discussed with pt conservator ( a physician) as well as Mds Manager who agree this is best option for this pt. Attestation I attest that I discussed the nature of the procedure; its benefits; risks and complications; and alternatives (and the risks and benefits of such alternatives ), prior to the procedure, with the patient (or the patient's legal sales representative church furniture). I attest that, if there was a reasonable possibility of needing a blood transfusion, the patient (or the patient's legal sales representative church furniture) was given the [place] Department of Health Services standardized written summary, pursuant to the Patrice Lelia Blood Safety Act ([place] Health and Safety Code # 1645, as amended). I attest that I re-evaluated the patient just prior to the surgery and that there has been no change in the patient's H&P. Please note that pt has a pacemaker. I brought this to the attention of the model maker fiberglass yesterday, who said she would determine if needed magnet or rep. to program the pacemnker for surgery (cautery use). I call ed this AM 0815 to check to see if task completed. Nichol stated that the anest. had cleared the pt. including the pacemaker. NISA MANCIA Jul 17, 2017 08:15
--- NOTE | 2017-07-17 08:15 | Pre-Procedure Note/Attestation ---
Pre-Procedure Note/Attestation Complete Prior to Procedure Planned Procedure: not applicable Procedure Narrative: Tracheostomy Indications for Procedure Pre-Operative Diagnosis: Recurrent intubation Discussed with pt conservator ( a physician) as well as Biblical Studies Professor who agree this is best option for this pt. Attestation I attest that I discussed the nature of the procedure; its benefits; risks and complications; and alternatives (and the risks and benefits of such alternatives ), prior to the procedure, with the patient (or the patient's legal outside sales representative). I attest that, if there was a reasonable possibility of needing a blood transfusion, the patient (or the patient's legal outside sales representative) was given the [place] Department of Health Services standardized written summary, pursuant to the Patrice Lelia Blood Safety Act ([place] Health and Safety Code # 1645, as amended). I attest that I re-evaluated the patient just prior to the surgery and that there has been no change in the patient's H&P. Please note that pt has a pacemaker. I brought this to the attention of the pedicab driver yesterday, who said she would determine if needed magnet or rep. to program the pacemnker for surgery (cautery use). I call ed this AM 0815 to check to see if task completed. Nihcol stated that the anest. had cleared the pt. including the pacemaker. NISA MANCIA Jul 17, 2017 08:15
--- NOTE | 2017-07-17 08:15 | Pre-Procedure Note/Attestation ---
Pre-Procedure Note/Attestation Complete Prior to Procedure Planned Procedure: not applicable Procedure Narrative: Tracheostomy Indications for Procedure Pre-Operative Diagnosis: Recurrent intubation Discussed with pt conservator ( a physician) as well as Sap Ppm Consultant who agree this is best option for this pt. Attestation I attest that I discussed the nature of the procedure; its benefits; risks and complications; and alternatives (and the risks and benefits of such alternatives ), prior to the procedure, with the patient (or the patient's legal benefits representative). I attest that, if there was a reasonable possibility of needing a blood transfusion, the patient (or the patient's legal benefits representative) was given the [place] Department of Health Services standardized written summary, pursuant to the Patrice Lelia Blood Safety Act ([place] Health and Safety Code # 1645, as amended). I attest that I re-evaluated the patient just prior to the surgery and that there has been no change in the patient's H&P. Please note that pt has a pacemaker. I brought this to the attention of the patient scheduling manager yesterday, who said she would determine if needed magnet or rep. to program the pacemnker for surgery (cautery use). I call ed this AM 0815 to check to see if task completed. Nichol stated that the anest. had cleared the pt. including the pacemaker. NISA MANCIA Jul 17, 2017 08:15
[2017-07-17] MEDS: Heparin 5000 units/ml inj SUBQ SCH ×2 (09:00→20:37)
[2017-07-17] MEDS: Docusate 100mg/10ml Liq NG SCH (09:06)
[2017-07-17] MEDS: Theophylline ER 100mg ORAL SCH ×2 (09:06→20:35)
[2017-07-17] MEDS: carBAMazepine 200mg tab ORAL SCH (09:06)
[2017-07-17] MEDS: Pantoprazole Inj IV SCH (09:06)
--- NOTE | 2017-07-17 09:45 | Consultation ---
DATE OF CONSULTATION: 07/16/2017 HEAD AND NECK SURGERY/ENT CONSULTATION CONSULTING PHYSICIAN: Paco Garza M.D. REQUESTING PHYSICIAN: Naheed Espinoza M.D. INDICATION FOR CONSULTATION: This is a 71-year-old gentleman, who has been on BiPAP and intubated off and on since 06/24/2017. He actually self-extubated last night. I was asked to trach him yesterday, consult today, and is tentatively scheduled for tomorrow at 2 p.m. He has a pacemaker and I have discussed this with the head of the OR, who is going to verify if any special preparations required to suspend the pacemaker during the surgery if it is an AIC. PAST MEDICAL HISTORY: Schizophrenia, limited mobility, pacemaker, correction resident. He was admitted with sepsis, acute respiratory failure, and urinary tract infection. MEDICATIONS: Dopamine, sodium chloride, Merrem, vancomycin, Tegretol, Cassandra-Hex, Colace, heparin, Keppra, lorazepam, morphine, Zyprexa, Zofran, Protonix, MiraLAX, and Dane-Dur. ALLERGIES: He is allergic to chlorpromazine, erythromycin, and tape. PHYSICAL EXAMINATION: VITAL SIGNS: The patient is 180.34 cm, weight 55.344 kg, and BMI 17.0. HEENT: Head, normocephalic. Eyes, PERRLA and EOMI. Ears, positive light reflex. Normal canal. NECK: Good landmarks for tracheostomy, but he does not have an endotracheal tube in at the moment, appears stable. ASSESSMENT: Although we scheduled for a trach tomorrow at 2 p.m. with protocol regarding his pacemaker pending and being addressed by the head of the operating room suite, I am not sure if he is going to have a trach tomorrow. I have left a message for Dr. Espinoza to let me know how he would like me to proceed, which I just got during this dictation. He said please continue. He anticipates the patient is going to have continued issues. Thank you very much for asking my opinion in the care and treatment of this patient. Paco Garza M.D. DR: OMAR JOB#: [id number] CC: LUCIA
--- NOTE | 2017-07-17 10:13 | Diagnostic Imaging Report ---
Indication: DYSPNEA Technique: One view of the chest Comparison: 07/16/2017 Findings: Again demonstrated is extensive left lung volume loss and leftward mediastinal shift. Cystic lucency at the left lung base is unchanged. Nasogastric tube is again demonstrated, tip projecting at the level of the gastric. There is compensatory hyperinflation of the right lung. Old healed left rib fracture deformities are again demonstrated. Findings are unchanged Impression: Unchanged, over one day, findings as above.
--- NOTE | 2017-07-17 10:40 | Wound Nurse Progress Note ---
Wound RN Progress Note Wound Consult reassessment #1 Right anterior big toe dry scab adhered to wound bed- scab remains intact.current treatment effective no further deterioration present.no s/s of infection, no drainage, dry. Recommendation -Local wound care per protocol -Turn and reposition -Keep clean and dry -Optimize nutrition -Offload both heels -Heel protector on both heels -Assess and f/u accordingly for any changes LUBNA DEE Jul 17, 2017 10:40
--- NOTE | 2017-07-17 13:07 | Pulmonolgy Critical Care Note ---
Critical Care - Asmt/Plan Problems: (1) Septic shock (2) Acute encephalopathy (3) Acute respiratory failure (4) Collapse of left lung (5) UTI (urinary tract infection) (6) Schizophrenia (7) History of pacemaker (8) Fever Respiratory: monitor respiratory rate, adjust FIO2, CXR Cardiac: continue to monitor HR/BP Renal: F/U I&O Infectious Disease: check cultures, continue antibiotics Gastrointestinal: continue feedings/current rate Endocrine: check TSH, check HgA1C, continue sliding scale insulin Hematologic: monitor H/H, transfuse if hgb<8.5 Neurologic: keep patient comfortable Prophylaxis: Protonix Disposition: keep in ICU Notes Reviewed: grain unloader machine, cardio Discussed with: nurses, consultants, case checkercountry manager - Objective Last 24 Hour Vital Signs Date Time Temp Pulse Resp B/P (MAP) Pulse Ox O2 Delivery O2 Flow Rate FiO2 07/17/17 11:30 78 18 112/44 100 Nasal Cannula 2.0 07/17/17 11:00 79 20 98/50 97 Nasal Cannula 2.0 07/17/17 10:30 81 19 100/48 97 Nasal Cannula 2.0 07/17/17 10:00 85 19 103/54 96 Nasal Cannula 2.0 07/17/17 09:30 73 18 91/55 99 Nasal Cannula 2.0 07/17/17 09:00 78 19 90/45 96 Nasal Cannula 2.0 07/17/17 08:30 76 19 93/54 96 Nasal Cannula 2.0 07/17/17 08:00 103 07/17/17 08:00 98.0 85 20 99/53 96 Nasal Cannula 2.0 07/17/17 07:36 Nasal Cannula 2.0 28 07/17/17 07:35 100 Nasal Cannula 2.0 28 07/17/17 07:30 103 19 102/66 98 Nasal Cannula 2.0 07/17/17 07:00 68 18 88/52 98 Nasal Cannula 2.0 07/17/17 06:36 91/46 07/17/17 06:15 67 17 91/46 100 Nasal Cannula 2.0 07/17/17 06:00 69 17 100/59 100 Nasal Cannula 2.0 07/17/17 05:45 69 17 99/59 100 Nasal Cannula 2.0 07/17/17 05:30 72 17 93/50 100 Nasal Cannula 2.0 07/17/17 05:15 80 17 99/52 100 Nasal Cannula 2.0 07/17/17 05:00 80 17 105/55 100 Nasal Cannula 2.0 07/17/17 04:45 85 17 100/64 100 Nasal Cannula 2.0 07/17/17 04:30 85 17 112/64 100 Nasal Cannula 2.0 07/17/17 04:15 99 17 87/59 100 Nasal Cannula 2.0 07/17/17 04:00 98.0 78 17 104/60 100 Nasal Cannula 2.0 07/17/17 04:00 66 07/17/17 03:45 65 17 96/51 100 Nasal Cannula 2.0 07/17/17 03:30 71 17 93/51 100 Nasal Cannula 2.0 07/17/17 03:15 67 17 97/56 100 Nasal Cannula 2.0 07/17/17 03:00 73 19 99/55 100 Nasal Cannula 2.0 07/17/17 02:45 67 19 98/49 100 Nasal Cannula 2.0 07/17/17 02:30 69 19 92/51 100 Nasal Cannula 2.0 07/17/17 02:15 73 19 99/55 100 Nasal Cannula 2.0 07/17/17 02:00 83 19 102/56 100 Nasal Cannula 2.0 07/17/17 01:45 80 19 134/69 100 Nasal Cannula 2.0 07/17/17 01:30 78 19 99/50 100 Nasal Cannula 2.0 07/17/17 01:15 69 19 92/46 100 Nasal Cannula 2.0 07/17/17 01:00 66 19 92/46 100 Nasal Cannula 2.0 07/17/17 00:45 68 19 88/47 100 Nasal Cannula 2.0 07/17/17 00:30 64 19 92/52 100 Nasal Cannula 2.0 07/17/17 00:15 69 19 100/55 100 Nasal Cannula 2.0 07/17/17 00:00 81 19 97/49 100 Nasal Cannula 2.0 07/17/17 00:00 78 07/16/17 23:45 81 19 100/53 100 Nasal Cannula 2.0 07/16/17 23:30 70 19 94/53 100 Nasal Cannula 2.0 07/16/17 23:15 75 19 102/45 100 Nasal Cannula 2.0 07/16/17 23:00 73 19 106/55 100 Nasal Cannula 2.0 07/16/17 22:45 66 19 101/43 100 Nasal Cannula 2.0 07/16/17 22:30 67 19 96/48 100 Nasal Cannula 2.0 07/16/17 22:15 63 19 100/49 100 Nasal Cannula 2.0 07/16/17 22:00 67 19 99/48 100 Nasal Cannula 2.0 07/16/17 21:49 105/48 07/16/17 21:45 62 19 89/45 100 Nasal Cannula 2.0 07/16/17 21:30 63 19 100/49 100 Nasal Cannula 2.0 07/16/17 21:15 60 19 96/43 100 Nasal Cannula 2.0 07/16/17 21:00 62 19 102/46 100 Nasal Cannula 2.0 07/16/17 20:45 61 19 111/47 100 Nasal Cannula 2.0 07/16/17 20:30 64 19 90/47 100 Nasal Cannula 2.0 07/16/17 20:15 60 19 103/47 100 Nasal Cannula 2.0 07/16/17 20:00 98.0 62 19 103/39 100 Nasal Cannula 2.0 07/16/17 20:00 65 07/16/17 19:45 65 19 96/49 100 Nasal Cannula 2.0 07/16/17 19:34 Nasal Cannula 2.0 28 07/16/17 19:34 100 Nasal Cannula 2.0 28 07/16/17 19:30 71 19 106/54 100 Nasal Cannula 2.0 07/16/17 19:15 67 19 96/46 100 Nasal Cannula 2.0 07/16/17 19:00 69 20 90/53 100 Nasal Cannula 2.0 07/16/17 18:45 70 22 107/49 100 Nasal Cannula 2.0 07/16/17 18:30 66 22 105/48 100 Nasal Cannula 2.0 07/16/17 18:15 69 22 107/53 98 Nasal Cannula 2.0 07/16/17 18:00 71 22 101/51 99 Nasal Cannula 2.0 07/16/17 17:45 74 22 107/68 98 Nasal Cannula 2.0 07/16/17 17:30 85 22 109/46 99 Nasal Cannula 2.0 07/16/17 17:15 67 21 93/53 97 Nasal Cannula 2.0 07/16/17 17:00 66 20 92/49 99 Nasal Cannula 2.0 07/16/17 16:45 64 20 96/52 99 Nasal Cannula 2.0 07/16/17 16:30 69 19 95/45 96 Nasal Cannula 2.0 07/16/17 16:15 70 19 103/50 95 Nasal Cannula 2.0 07/16/17 16:00 77 07/16/17 16:00 98.8 74 20 101/51 95 Nasal Cannula 2.0 07/16/17 15:45 72 21 98/50 94 Nasal Cannula 2.0 07/16/17 15:30 71 21 103/52 95 Nasal Cannula 2.0 07/16/17 15:15 73 22 96/56 95 Nasal Cannula 2.0 07/16/17 15:00 77 23 112/62 93 Nasal Cannula 2.0 07/16/17 14:45 82 21 104/52 97 Nasal Cannula 2.0 07/16/17 14:30 66 19 113/56 100 Nasal Cannula 2.0 07/16/17 14:15 63 19 93/46 98 Nasal Cannula 2.0 07/16/17 14:00 68 19 94/48 99 Nasal Cannula 2.0 07/16/17 13:45 71 19 99/48 97 Nasal Cannula 2.0 07/16/17 13:30 69 18 105/49 97 Nasal Cannula 2.0 07/16/17 13:15 69 20 112/51 95 Nasal Cannula 2.0 07/16/17 13:08 108/47 Status: sedated Condition: critical HEENT: atraumatic Lungs: clear Heart: HR/BP stable, regular Abdomen: soft, active bowel sounds Extremities: no C/C/E Decubiti: location Critical Care - Subjective Condition: critical EKG Rhythm: Sinus Rhythm FI02: 28 Vent Support Breath Rate: 16 Vent Support Mode: AC Vent Tidal Volume: 700 Sputum Amount: Small PIP: 23 Tube Feeding Amount: 30 I&O: Intake and Output 07/17/17 07/18/17 19:00 07:00 Intake Total 237.168 ml Output Total 460 ml Balance -222.832 ml IV Total 237.168 ml Output Urine Total 460 ml CXR: left lung collapse ET-Tube: 8.0 ET Position: 21 Labs: Laboratory Tests Test 07/16/17 13:30 07/16/17 22:50 07/17/17 03:25 Vancomycin Level Trough 16.8 ug/mL (5.0-12.0) H Arterial Blood pH 7.409 (7.350-7.450) Arterial Blood Partial Pressure CO2 39.2 mmHg (35.0-45.0) Arterial Blood Partial Pressure O2 84.9 mmHg (75.0-100.0) Arterial Blood HCO3 24.2 mmol/L (22.0-26.0) Arterial Blood Oxygen Saturation 96.4 % (92.0-98.0) Arterial Blood Base Excess 0.3 Anthony Test Positive White Blood Count 8.8 K/UL (4.8-10.8) Red Blood Count 3.01 M/UL (4.70-6.10) L Hemoglobin 10.6 G/DL (14.2-18.0) L Hematocrit 30.0 % (42.0-52.0) L Mean Corpuscular Volume 100 FL (80-99) H Mean Corpuscular Hemoglobin 35.1 PG (27.0-31.0) H Mean Corpuscular Hemoglobin Concent 35.3 G/DL (32.0-36.0) Red Cell Distribution Width 12.7 % (11.6-14.8) Platelet Count 302 K/UL (150-450) Mean Platelet Volume 5.6 FL (6.5-10.1) L Neutrophils (%) (Auto) 53.9 % (45.0-75.0) Lymphocytes (%) (Auto) 29.9 % (20.0-45.0) Monocytes (%) (Auto) 5.8 % (1.0-10.0) Eosinophils (%) (Auto) 9.5 % (0.0-3.0) H Basophils (%) (Auto) 0.9 % (0.0-2.0) Prothrombin Time 10.6 SEC (9.30-11.50) Prothromb Time International Ratio 1.0 (0.9-1.1) Activated Partial Thromboplast Time 31 SEC (23-33) Sodium Level 139 MMOL/L (136-145) Potassium Level 4.1 MMOL/L (3.5-5.1) Chloride Level 104 MMOL/L (98-107) Carbon Dioxide Level 29 MMOL/L (21-32) Anion Gap 6 mmol/L (5-15) Blood Urea Nitrogen 19 mg/dL (7-18) H Creatinine 0.8 MG/DL (0.55-1.30) Estimat Glomerular Filtration Rate > 60 mL/min (>60) Glucose Level 118 MG/DL (74-106) H Calcium Level 9.2 MG/DL (8.5-10.1) Total Bilirubin 0.2 MG/DL (0.2-1.0) Aspartate Amino Transf (AST/SGOT) 15 U/L (15-37) Alanine Aminotransferase (ALT/SGPT) 15 U/L (12-78) Alkaline Phosphatase 65 U/L (46-116) Pro-B-Type Natriuretic Peptide 62 pg/mL (0-125) Total Protein 7.0 G/DL (6.4-8.2) Albumin 2.3 G/DL (3.4-5.0) L Globulin 4.7 g/dL Albumin/Globulin Ratio 0.5 (1.0-2.7) GWEN BRAN Jul 17, 2017 13:07
--- NOTE | 2017-07-17 13:13 | Diagnostic Imaging Report ---
Indications: Needs long-term IV access Technique: Procedure performed at bedside. Procedural timeout performed. Ultrasound confirms patent compressible right basilic vein. Total sterile technique, including sterile probe cover and sterile gel, sterile gloves, hand hygiene, hat, mask,, sterile gown, large sterile drape, and preparation with 2% chlorhexidine utilized. Local anesthesia with 1% lidocaine. Under real-time ultrasound guidance, puncture right basilic vein using 21-gauge needle, passage 0.018 guidewire, which would not pass centrally. Local anesthesia with 1% lidocaine. Under real-time ultrasound guidance, puncture right cephalic vein using 21 -gauge needle, passage 0.018 guidewire, exchange for 5 [place] peel-away sheath. 5 [place] Bard dual-lumen power PICC cut to 37 cm. It was inserted through the peel-away sheath. Peel-away sheath and guidewire removed. Catheter fixed to the skin. Both catheter ports aspirated and flushed. Patient tolerated procedure well, without immediate complication. Followup chest x-ray obtained, documents catheter tip position projecting retrograde into the left innominate vein Impression: Successful bedside placement of right cephalic vein PICC under sonographic guidance, as described above. No slight malpositioned, tip protruding into the left innominate vein. We will attempt to correct this
--- NOTE | 2017-07-17 13:13 | Diagnostic Imaging Report ---
Indications: Needs long-term IV access Technique: Procedure performed at bedside. Procedural timeout performed. Ultrasound confirms patent compressible right basilic vein. Total sterile technique, including sterile probe cover and sterile gel, sterile gloves, hand hygiene, hat, mask,, sterile gown, large sterile drape, and preparation with 2% chlorhexidine utilized. Local anesthesia with 1% lidocaine. Under real-time ultrasound guidance, puncture right basilic vein using 21-gauge needle, passage 0.018 guidewire, which would not pass centrally. Local anesthesia with 1% lidocaine. Under real-time ultrasound guidance, puncture right cephalic vein using 21 -gauge needle, passage 0.018 guidewire, exchange for 5 [place] peel-away sheath. 5 [place] Bard dual-lumen power PICC cut to 37 cm. It was inserted through the peel-away sheath. Peel-away sheath and guidewire removed. Catheter fixed to the skin. Both catheter ports aspirated and flushed. Patient tolerated procedure well, without immediate complication. Followup chest x-ray obtained, documents catheter tip position projecting retrograde into the left innominate vein Impression: Successful bedside placement of right cephalic vein PICC under sonographic guidance, as described above. No slight malpositioned, tip protruding into the left innominate vein. We will attempt to correct this
[2017-07-17] MEDS ORDERED: Lidocaine 1% 10mg/ml/Epi 0.005mg/ml 30ml vial INJ ONE (13:29)
[2017-07-17] MEDS: carBAMazepine 200mg tab GT SCH ×3 (13:35→20:35)
--- NOTE | 2017-07-17 13:50 | Nephrology Progress Note ---
Assessment/Plan Assessment 1. hypokalemia resolved 2. respiratory failure 3. hypotension 4. hypomagnesemia Plan plan to give NS bolus monitoring out put continue iv antibiotic monitoring renal function monitoring electrolyte replace as need avoid any NSAID Subjective Constitutional: Reports: no symptoms HEENT: Reports: no symptoms Genitourinary: Reports: no symptoms Neurologic/Psychiatric: Reports: no symptoms Subjective extubated going to get trach today not responsive on dopamine Objective Objective Last 24 Hour Vital Signs Date Time Temp Pulse Resp B/P (MAP) Pulse Ox O2 Delivery O2 Flow Rate FiO2 07/17/17 11:30 78 18 112/44 100 Nasal Cannula 2.0 07/17/17 11:00 79 20 98/50 97 Nasal Cannula 2.0 07/17/17 10:30 81 19 100/48 97 Nasal Cannula 2.0 07/17/17 10:00 85 19 103/54 96 Nasal Cannula 2.0 07/17/17 09:30 73 18 91/55 99 Nasal Cannula 2.0 07/17/17 09:00 78 19 90/45 96 Nasal Cannula 2.0 07/17/17 08:30 76 19 93/54 96 Nasal Cannula 2.0 07/17/17 08:00 103 07/17/17 08:00 98.0 85 20 99/53 96 Nasal Cannula 2.0 07/17/17 07:36 Nasal Cannula 2.0 28 07/17/17 07:35 100 Nasal Cannula 2.0 28 07/17/17 07:30 103 19 102/66 98 Nasal Cannula 2.0 07/17/17 07:00 68 18 88/52 98 Nasal Cannula 2.0 07/17/17 06:36 91/46 07/17/17 06:15 67 17 91/46 100 Nasal Cannula 2.0 07/17/17 06:00 69 17 100/59 100 Nasal Cannula 2.0 07/17/17 05:45 69 17 99/59 100 Nasal Cannula 2.0 07/17/17 05:30 72 17 93/50 100 Nasal Cannula 2.0 07/17/17 05:15 80 17 99/52 100 Nasal Cannula 2.0 07/17/17 05:00 80 17 105/55 100 Nasal Cannula 2.0 07/17/17 04:45 85 17 100/64 100 Nasal Cannula 2.0 07/17/17 04:30 85 17 112/64 100 Nasal Cannula 2.0 07/17/17 04:15 99 17 87/59 100 Nasal Cannula 2.0 07/17/17 04:00 98.0 78 17 104/60 100 Nasal Cannula 2.0 07/17/17 04:00 66 07/17/17 03:45 65 17 96/51 100 Nasal Cannula 2.0 07/17/17 03:30 71 17 93/51 100 Nasal Cannula 2.0 07/17/17 03:15 67 17 97/56 100 Nasal Cannula 2.0 07/17/17 03:00 73 19 99/55 100 Nasal Cannula 2.0 07/17/17 02:45 67 19 98/49 100 Nasal Cannula 2.0 07/17/17 02:30 69 19 92/51 100 Nasal Cannula 2.0 07/17/17 02:15 73 19 99/55 100 Nasal Cannula 2.0 07/17/17 02:00 83 19 102/56 100 Nasal Cannula 2.0 07/17/17 01:45 80 19 134/69 100 Nasal Cannula 2.0 07/17/17 01:30 78 19 99/50 100 Nasal Cannula 2.0 07/17/17 01:15 69 19 92/46 100 Nasal Cannula 2.0 07/17/17 01:00 66 19 92/46 100 Nasal Cannula 2.0 07/17/17 00:45 68 19 88/47 100 Nasal Cannula 2.0 07/17/17 00:30 64 19 92/52 100 Nasal Cannula 2.0 07/17/17 00:15 69 19 100/55 100 Nasal Cannula 2.0 07/17/17 00:00 81 19 97/49 100 Nasal Cannula 2.0 07/17/17 00:00 78 07/16/17 23:45 81 19 100/53 100 Nasal Cannula 2.0 07/16/17 23:30 70 19 94/53 100 Nasal Cannula 2.0 07/16/17 23:15 75 19 102/45 100 Nasal Cannula 2.0 07/16/17 23:00 73 19 106/55 100 Nasal Cannula 2.0 07/16/17 22:45 66 19 101/43 100 Nasal Cannula 2.0 07/16/17 22:30 67 19 96/48 100 Nasal Cannula 2.0 07/16/17 22:15 63 19 100/49 100 Nasal Cannula 2.0 07/16/17 22:00 67 19 99/48 100 Nasal Cannula 2.0 07/16/17 21:49 105/48 07/16/17 21:45 62 19 89/45 100 Nasal Cannula 2.0 07/16/17 21:30 63 19 100/49 100 Nasal Cannula 2.0 07/16/17 21:15 60 19 96/43 100 Nasal Cannula 2.0 07/16/17 21:00 62 19 102/46 100 Nasal Cannula 2.0 07/16/17 20:45 61 19 111/47 100 Nasal Cannula 2.0 07/16/17 20:30 64 19 90/47 100 Nasal Cannula 2.0 07/16/17 20:15 60 19 103/47 100 Nasal Cannula 2.0 07/16/17 20:00 98.0 62 19 103/39 100 Nasal Cannula 2.0 07/16/17 20:00 65 07/16/17 19:45 65 19 96/49 100 Nasal Cannula 2.0 07/16/17 19:34 Nasal Cannula 2.0 28 07/16/17 19:34 100 Nasal Cannula 2.0 28 07/16/17 19:30 71 19 106/54 100 Nasal Cannula 2.0 07/16/17 19:15 67 19 96/46 100 Nasal Cannula 2.0 07/16/17 19:00 69 20 90/53 100 Nasal Cannula 2.0 07/16/17 18:45 70 22 107/49 100 Nasal Cannula 2.0 07/16/17 18:30 66 22 105/48 100 Nasal Cannula 2.0 07/16/17 18:15 69 22 107/53 98 Nasal Cannula 2.0 07/16/17 18:00 71 22 101/51 99 Nasal Cannula 2.0 07/16/17 17:45 74 22 107/68 98 Nasal Cannula 2.0 07/16/17 17:30 85 22 109/46 99 Nasal Cannula 2.0 07/16/17 17:15 67 21 93/53 97 Nasal Cannula 2.0 07/16/17 17:00 66 20 92/49 99 Nasal Cannula 2.0 07/16/17 16:45 64 20 96/52 99 Nasal Cannula 2.0 07/16/17 16:30 69 19 95/45 96 Nasal Cannula 2.0 07/16/17 16:15 70 19 103/50 95 Nasal Cannula 2.0 07/16/17 16:00 77 07/16/17 16:00 98.8 74 20 101/51 95 Nasal Cannula 2.0 07/16/17 15:45 72 21 98/50 94 Nasal Cannula 2.0 07/16/17 15:30 71 21 103/52 95 Nasal Cannula 2.0 07/16/17 15:15 73 22 96/56 95 Nasal Cannula 2.0 07/16/17 15:00 77 23 112/62 93 Nasal Cannula 2.0 07/16/17 14:45 82 21 104/52 97 Nasal Cannula 2.0 07/16/17 14:30 66 19 113/56 100 Nasal Cannula 2.0 07/16/17 14:15 63 19 93/46 98 Nasal Cannula 2.0 07/16/17 14:00 68 19 94/48 99 Nasal Cannula 2.0 Intake and Output 07/17/17 07/18/17 19:00 07:00 Intake Total 237.168 ml Output Total 460 ml Balance -222.832 ml IV Total 237.168 ml Output Urine Total 460 ml Laboratory Tests 07/16/17 22:50: Arterial Blood pH 7.409, Arterial Blood Partial Pressure CO2 39.2, Arterial Blood Partial Pressure O2 84.9, Arterial Blood HCO3 24.2, Arterial Blood Oxygen Saturation 96.4, Arterial Blood Base Excess 0.3, Anthony Test Positive 07/17/17 03:25: White Blood Count 8.8, Red Blood Count 3.01L, Hemoglobin 10.6L, Hematocrit 30.0L , Mean Corpuscular Volume 100H, Mean Corpuscular Hemoglobin 35.1H, Mean Corpuscular Hemoglobin Concent 35.3, Red Cell Distribution Width 12.7, Platelet Count 302, Mean Platelet Volume 5.6L, Neutrophils (%) (Auto) 53.9, Lymphocytes ( %) (Auto) 29.9, Monocytes (%) (Auto) 5.8, Eosinophils (%) (Auto) 9.5H, Basophils (%) (Auto) 0.9, Prothrombin Time 10.6, Prothromb Time International Ratio 1.0, Activated Partial Thromboplast Time 31, Sodium Level 139, Potassium Level 4.1, Chloride Level 104, Carbon Dioxide Level 29, Anion Gap 6, Blood Urea Nitrogen 19H, Creatinine 0.8, Estimat Glomerular Filtration Rate > 60, Glucose Level 118H, Calcium Level 9.2, Total Bilirubin 0.2, Aspartate Amino Transf (AST/ SGOT) 15, Alanine Aminotransferase (ALT/SGPT) 15, Alkaline Phosphatase 65, Pro-B -Type Natriuretic Peptide 62, Total Protein 7.0, Albumin 2.3L, Globulin 4.7, Albumin/Globulin Ratio 0.5L Height (Feet): 5 Height (Inches): 9.00 Weight (Pounds): 128 Objective HEAD AND NECK: No JVP. No LAD. No thyromegaly. Extraocular movements intact. Pupils are reactive to light and accommodation. LUNGS: Clear to auscultation. CARDIAC: Regular rate and rhythm. S1 and S2. No murmur. No rub. ABDOMEN: Soft, nontender, and nondistended. EXTREMITIES: No edema. No clubbing. No cyanosis. NEUROLOGIC: The patient opened up his eyes, not following verbal commands. RANCHO SYKES Jul 17, 2017 13:50
[2017-07-17] MEDS ORDERED: fentaNYL 100 mcg/2 mL IV ONE (14:00)
[2017-07-17] MEDS ORDERED: Propofol 200mg/20ml IV ONE (14:00)
[2017-07-17] MEDS ORDERED: Zemuron 50mg/5ml Inj IV ONE (14:00)
[2017-07-17] MEDS ORDERED: Midazolam 2mg/2ml Inj ONE (14:00)
[2017-07-17] MEDS ORDERED: Lidocaine 1% MPF 10mg/ml 5ml ONE (14:00)
--- NOTE | 2017-07-17 15:02 | Brief Operative Note ---
Immediate Post Operative Note Operative Note Chief Complaint: Recurrent resp failure Pre-op Diagnosis: Recurrent intubation Discussed with pt conservator ( a physician) as well as Day Care Teacher who agree this is best option for this pt. Procedure: Trach Post-op Diagnosis: same as pre-op Surgeon: Jennifer Mancia Security Flex Utility Officer: none Additional Surgeons: none Anesthesiologist: Jitendra Anesthesia: general Specimen: none Complications: none Condition: stable Fluids: 100 Estimated Blood Loss: volume - 2 cc Drains: other - Shiley #8 with cuff, non fenestrated Packing: [email or web address] [email or web address] Implant(s) used?: No NISA MANCIA Jul 17, 2017 15:02
--- NOTE | 2017-07-17 15:11 | Immediate Post-Op Evaluation ---
Immediate Post-Op Evalulation Immediate Post-Op Evalulation Procedure: Tracheostomy Date of Evaluation: Jul 17, 2017 IV Fluids: 200 Blood Products: 0 Estimated Blood Loss: 2 Urinary Output: 0 Blood Pressure Systolic: 123 Blood Pressure Diastolic: 59 Pulse Rate: 81 Respiratory Rate: 12 O2 Sat by Pulse Oximetry: 100 Temperature (Fahrenheit): 97.4 Pain Score (1-10): 0 Nausea: No Vomiting: No Complications 0 Patient Status: awake, reacts, ventilated, none Hydration Status: adequate Drug: Ancef 1g Given Within 1 Hr of Incision: Yes Time Given: 14:25 TRA CHAVEZ M.D. Jul 17, 2017 15:11
[2017-07-17] MEDS: Vancomycin 1250mg/D5W 250ml IVPB SCH (15:26)
[2017-07-17] MEDS ORDERED: Sterile Water Irrig 1000ml IRRIG ONE (16:02)
--- NOTE | 2017-07-17 17:58 | Infectious Diseases Prog Note ---
Assessment/Plan Problems: (1) HCAP (healthcare-associated pneumonia) Assessment & Plan: due to left lung collapse again, S/P reintubation, and self extubation , continue meropenem and vancomycin since he developed left lung consolidation after his lung collapsed again with fever , pending sputum culture , monitor CXR, and WBC, continue nebulizers as needed, for trachestomy today (2) Acute respiratory failure Assessment & Plan: due to left lung collapse , S/P re-intubation and mechanical ventilation. 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 ,continue meropenem to treat for two weeks Subjective ROS Limited/Unobtainable: Yes Allergies: Coded Allergies: CHLORPROMAZINE (Verified Allergy, Unknown, 06/23/17) ERYTHROMYCIN BASE (Verified Allergy, Unknown, 06/23/17) Uncoded Allergies: TAPE (Allergy, Unknown, 06/23/17) Subjective he is self extubated him self , now on nasal canula , comfortable, lying in bed , not in distress , no fever , no diarrhea, on pressor Objective Vital Signs Last 24 Hour Vital Signs Date Time Temp Pulse Resp B/P (MAP) Pulse Ox O2 Delivery O2 Flow Rate FiO2 07/17/17 17:43 114/64 07/17/17 16:40 79 17 50 07/17/17 16:00 50 07/17/17 16:00 65 07/17/17 15:30 69 18 124/68 100 Mechanical Ventilator 50 07/17/17 15:16 74 12 50 07/17/17 15:11 81 12 100 07/17/17 13:30 71 17 95/41 100 Nasal Cannula 2.0 07/17/17 13:00 66 17 104/39 100 Nasal Cannula 2.0 07/17/17 12:30 67 17 100/48 100 Nasal Cannula 2.0 07/17/17 12:00 67 07/17/17 12:00 97.8 67 18 98/52 100 Nasal Cannula 2.0 07/17/17 11:30 78 18 112/44 100 Nasal Cannula 2.0 07/17/17 11:00 79 20 98/50 97 Nasal Cannula 2.0 07/17/17 10:30 81 19 100/48 97 Nasal Cannula 2.0 07/17/17 10:00 85 19 103/54 96 Nasal Cannula 2.0 07/17/17 09:30 73 18 91/55 99 Nasal Cannula 2.0 07/17/17 09:00 78 19 90/45 96 Nasal Cannula 2.0 07/17/17 08:30 76 19 93/54 96 Nasal Cannula 2.0 07/17/17 08:00 103 07/17/17 08:00 98.0 85 20 99/53 96 Nasal Cannula 2.0 07/17/17 07:36 Nasal Cannula 2.0 28 07/17/17 07:35 100 Nasal Cannula 2.0 28 07/17/17 07:30 103 19 102/66 98 Nasal Cannula 2.0 07/17/17 07:00 68 18 88/52 98 Nasal Cannula 2.0 07/17/17 06:36 91/46 07/17/17 06:15 67 17 91/46 100 Nasal Cannula 2.0 07/17/17 06:00 69 17 100/59 100 Nasal Cannula 2.0 07/17/17 05:45 69 17 99/59 100 Nasal Cannula 2.0 07/17/17 05:30 72 17 93/50 100 Nasal Cannula 2.0 07/17/17 05:15 80 17 99/52 100 Nasal Cannula 2.0 07/17/17 05:00 80 17 105/55 100 Nasal Cannula 2.0 07/17/17 04:45 85 17 100/64 100 Nasal Cannula 2.0 07/17/17 04:30 85 17 112/64 100 Nasal Cannula 2.0 07/17/17 04:15 99 17 87/59 100 Nasal Cannula 2.0 07/17/17 04:00 98.0 78 17 104/60 100 Nasal Cannula 2.0 07/17/17 04:00 66 07/17/17 03:45 65 17 96/51 100 Nasal Cannula 2.0 07/17/17 03:30 71 17 93/51 100 Nasal Cannula 2.0 07/17/17 03:15 67 17 97/56 100 Nasal Cannula 2.0 07/17/17 03:00 73 19 99/55 100 Nasal Cannula 2.0 07/17/17 02:45 67 19 98/49 100 Nasal Cannula 2.0 07/17/17 02:30 69 19 92/51 100 Nasal Cannula 2.0 07/17/17 02:15 73 19 99/55 100 Nasal Cannula 2.0 07/17/17 02:00 83 19 102/56 100 Nasal Cannula 2.0 07/17/17 01:45 80 19 134/69 100 Nasal Cannula 2.0 07/17/17 01:30 78 19 99/50 100 Nasal Cannula 2.0 07/17/17 01:15 69 19 92/46 100 Nasal Cannula 2.0 07/17/17 01:00 66 19 92/46 100 Nasal Cannula 2.0 07/17/17 00:45 68 19 88/47 100 Nasal Cannula 2.0 07/17/17 00:30 64 19 92/52 100 Nasal Cannula 2.0 07/17/17 00:15 69 19 100/55 100 Nasal Cannula 2.0 07/17/17 00:00 81 19 97/49 100 Nasal Cannula 2.0 07/17/17 00:00 78 07/16/17 23:45 81 19 100/53 100 Nasal Cannula 2.0 07/16/17 23:30 70 19 94/53 100 Nasal Cannula 2.0 07/16/17 23:15 75 19 102/45 100 Nasal Cannula 2.0 07/16/17 23:00 73 19 106/55 100 Nasal Cannula 2.0 07/16/17 22:45 66 19 101/43 100 Nasal Cannula 2.0 07/16/17 22:30 67 19 96/48 100 Nasal Cannula 2.0 07/16/17 22:15 63 19 100/49 100 Nasal Cannula 2.0 07/16/17 22:00 67 19 99/48 100 Nasal Cannula 2.0 07/16/17 21:49 105/48 07/16/17 21:45 62 19 89/45 100 Nasal Cannula 2.0 07/16/17 21:30 63 19 100/49 100 Nasal Cannula 2.0 07/16/17 21:15 60 19 96/43 100 Nasal Cannula 2.0 07/16/17 21:00 62 19 102/46 100 Nasal Cannula 2.0 07/16/17 20:45 61 19 111/47 100 Nasal Cannula 2.0 07/16/17 20:30 64 19 90/47 100 Nasal Cannula 2.0 07/16/17 20:15 60 19 103/47 100 Nasal Cannula 2.0 07/16/17 20:00 98.0 62 19 103/39 100 Nasal Cannula 2.0 07/16/17 20:00 65 07/16/17 19:45 65 19 96/49 100 Nasal Cannula 2.0 07/16/17 19:34 Nasal Cannula 2.0 28 07/16/17 19:34 100 Nasal Cannula 2.0 28 07/16/17 19:30 71 19 106/54 100 Nasal Cannula 2.0 07/16/17 19:15 67 19 96/46 100 Nasal Cannula 2.0 07/16/17 19:00 69 20 90/53 100 Nasal Cannula 2.0 07/16/17 18:45 70 22 107/49 100 Nasal Cannula 2.0 07/16/17 18:30 66 22 105/48 100 Nasal Cannula 2.0 07/16/17 18:15 69 22 107/53 98 Nasal Cannula 2.0 07/16/17 18:00 71 22 101/51 99 Nasal Cannula 2.0 Height (Feet): 5 Height (Inches): 9.00 Weight (Pounds): 128 General Appearance: WD/WN, no acute distress HEENT: normocephalic, atraumatic, anicteric, mucous membranes moist, PERRL Respiratory/Chest: chest wall non-tender, normal breath sounds, no respiratory distress, no accessory muscle use, respiratory distress, decreased breath sounds , crackles/rales Cardiovascular: normal peripheral pulses, normal rate, regular rhythm, no gallop/murmur, no JVD Abdomen: normal bowel sounds, soft, non tender, no organomegaly, non distended , no mass, no scars Genitourinary: normal external genitalia Extremities: no cyanosis, no clubbing Skin: no rash, no lesions Neurologic/Psychiatric: responsive Laboratory Tests Test 07/16/17 22:50 07/17/17 03:25 Arterial Blood pH 7.409 (7.350-7.450) Arterial Blood Partial Pressure CO2 39.2 mmHg (35.0-45.0) Arterial Blood Partial Pressure O2 84.9 mmHg (75.0-100.0) Arterial Blood HCO3 24.2 mmol/L (22.0-26.0) Arterial Blood Oxygen Saturation 96.4 % (92.0-98.0) Arterial Blood Base Excess 0.3 Anthony Test Positive White Blood Count 8.8 K/UL (4.8-10.8) Red Blood Count 3.01 M/UL (4.70-6.10) L Hemoglobin 10.6 G/DL (14.2-18.0) L Hematocrit 30.0 % (42.0-52.0) L Mean Corpuscular Volume 100 FL (80-99) H Mean Corpuscular Hemoglobin 35.1 PG (27.0-31.0) H Mean Corpuscular Hemoglobin Concent 35.3 G/DL (32.0-36.0) Red Cell Distribution Width 12.7 % (11.6-14.8) Platelet Count 302 K/UL (150-450) Mean Platelet Volume 5.6 FL (6.5-10.1) L Neutrophils (%) (Auto) 53.9 % (45.0-75.0) Lymphocytes (%) (Auto) 29.9 % (20.0-45.0) Monocytes (%) (Auto) 5.8 % (1.0-10.0) Eosinophils (%) (Auto) 9.5 % (0.0-3.0) H Basophils (%) (Auto) 0.9 % (0.0-2.0) Prothrombin Time 10.6 SEC (9.30-11.50) Prothromb Time International Ratio 1.0 (0.9-1.1) Activated Partial Thromboplast Time 31 SEC (23-33) Sodium Level 139 MMOL/L (136-145) Potassium Level 4.1 MMOL/L (3.5-5.1) Chloride Level 104 MMOL/L (98-107) Carbon Dioxide Level 29 MMOL/L (21-32) Anion Gap 6 mmol/L (5-15) Blood Urea Nitrogen 19 mg/dL (7-18) H Creatinine 0.8 MG/DL (0.55-1.30) Estimat Glomerular Filtration Rate > 60 mL/min (>60) Glucose Level 118 MG/DL (74-106) H Calcium Level 9.2 MG/DL (8.5-10.1) Total Bilirubin 0.2 MG/DL (0.2-1.0) Aspartate Amino Transf (AST/SGOT) 15 U/L (15-37) Alanine Aminotransferase (ALT/SGPT) 15 U/L (12-78) Alkaline Phosphatase 65 U/L (46-116) Pro-B-Type Natriuretic Peptide 62 pg/mL (0-125) Total Protein 7.0 G/DL (6.4-8.2) Albumin 2.3 G/DL (3.4-5.0) L Globulin 4.7 g/dL Albumin/Globulin Ratio 0.5 (1.0-2.7) L Current Medications Medications (Trade) Dose Ordered Sig/Karen Route PRN Reason Start Time Stop Time Status Last Admin Dose Admin Albuterol/ Ipratropium (Albuterol/ Ipratropium) 3 ml Q4H PRN HHN Shortness of Breath 07/17/17 05:45 07/22/17 05:44 Carbamazepine (TEGretol) 200 mg FOUR TIMES A DAY GT 07/17/17 13:00 07/23/17 12:59 07/17/17 13:35 Chlorhexidine Gluconate (Cassandra-Hex 2%) 1 applic DAILY@2000 TOPIC 07/16/17 20:00 08/15/17 19:59 07/16/17 20:14 Dextrose (Dextrose 50%) STAT PRN IV Hypoglycemia 07/02/17 12:00 07/25/17 11:59 Docusate Sodium (Colace) 100 mg DAILY NG 07/17/17 09:00 08/16/17 08:59 07/17/17 09:06 Dopamine HCl/ Dextrose 250 ml @ 0 mls/hr Q24H IV 07/10/17 21:30 08/09/17 21:29 07/17/17 17:43 Heparin Sodium (Porcine) (Heparin 5000 units/ml) 5,000 units EVERY 12 HOURS SUBQ 07/02/17 09:00 07/23/17 20:59 07/16/17 09:21 Heparin Sodium/ Sodium Chloride (Heparin 2000 units/Ns 1000ml premix) 2,000 unit ONCE PRN INJ PICC LINE 07/16/17 12:15 11/1/17 23:59 Levetiracetam (Keppra) 500 mg Q12HR ORAL 07/02/17 09:00 07/23/17 20:59 07/17/17 09:06 Lidocaine HCl (Xylocaine 1% 30ml) 30 ml ONCE PRN INJ PICC PLACEMENT 07/16/17 12:15 07/17/17 23:59 Lorazepam (Ativan 2mg/ml 1ml) 2 mg Q4H PRN IV For Anxiety 07/13/17 08:45 07/20/17 08:44 07/14/17 00:13 Meropenem 1 gm/ Sodium Chloride 110 ml @ 220 mls/hr Q8HR IVPB 07/13/17 13:30 07/18/17 13:29 07/17/17 15:26 Morphine Sulfate (Morphine Sulfate) 4 mg Q4H PRN IVP PAIN 4-10 07/13/17 08:45 07/20/17 08:44 Nitroglycerin (Ntg) 0.4 mg Q5M X 3 DOSES PRN SL Prn Chest Pain 07/01/17 23:45 07/23/17 13:29 Olanzapine (ZyPREXA) 20 mg BEDTIME GT 07/17/17 21:00 07/24/17 08:59 Ondansetron HCl (Zofran) 4 mg Q6H PRN IVP Nausea & Vomiting 07/02/17 00:00 07/23/17 11:59 Pantoprazole (Protonix) 40 mg DAILY IV 07/13/17 09:00 08/12/17 08:59 07/17/17 09:06 Polyethylene Glycol (Miralax) 17 gm DAILYPRN PRN ORAL Constipation 07/13/17 08:15 08/12/17 08:14 07/13/17 09:25 Sodium Chloride 1,000 ml @ 50 mls/hr Q20H IV 07/14/17 09:00 08/13/17 08:59 07/17/17 17:00 Theophylline (Dane-Dur) 100 mg EVERY 12 HOURS ORAL 07/02/17 09:00 07/23/17 20:59 07/17/17 09:06 Vancomycin HCl (Vanco rx to dose) 1 ea DAILY PRN MISC Per rx protocol 07/13/17 12:15 08/12/17 12:14 Vancomycin HCl/ Dextrose 250 ml @ 166.667 mls/hr Q24H IVPB 07/14/17 14:30 07/19/17 14:29 07/17/17 15:26 Dafne Orourke M.D. Jul 17, 2017 17:58
[2017-07-17] MEDS: Dyna-Hex 2% Top Sol 2oz TOPIC SCH (20:14)
--- NOTE | 2017-07-17 20:15 | General Progress Note ---
Assessment/Plan Problem List: (1) History of pacemaker ICD Codes: Z95.0 - Presence of cardiac pacemaker SNOMED: 806644291 (2) Schizophrenia ICD Codes: F20.9 - Schizophrenia, unspecified SNOMED: 14002486 (3) Limited mobility ICD Codes: Z74.09 - Other reduced mobility SNOMED: 8643952 (4) Acute respiratory failure ICD Codes: J96.00 - Acute respiratory failure, unspecified whether with hypoxia or hypercapnia SNOMED: 21069845 (5) Sepsis ICD Codes: A41.9 - Sepsis, unspecified organism SNOMED: 01508331 (6) HCAP (healthcare-associated pneumonia) ICD Codes: J18.9 - Pneumonia, unspecified organism SNOMED: 006569274 Status: progressing Assessment/Plan pacemaker resp failure no change no wheezing no bleeding Subjective ROS Limited/Unobtainable: Yes Allergies: Coded Allergies: CHLORPROMAZINE (Verified Allergy, Unknown, 06/23/17) ERYTHROMYCIN BASE (Verified Allergy, Unknown, 06/23/17) Uncoded Allergies: TAPE (Allergy, Unknown, 06/23/17) Objective Last 24 Hour Vital Signs Date Time Temp Pulse Resp B/P (MAP) Pulse Ox O2 Delivery O2 Flow Rate FiO2 07/17/17 19:10 77 16 40 07/17/17 17:43 114/64 07/17/17 16:40 79 17 50 07/17/17 16:00 50 07/17/17 16:00 65 07/17/17 15:30 69 18 124/68 100 Mechanical Ventilator 50 07/17/17 15:16 74 12 50 07/17/17 15:11 81 12 100 07/17/17 13:30 71 17 95/41 100 Nasal Cannula 2.0 07/17/17 13:00 66 17 104/39 100 Nasal Cannula 2.0 07/17/17 12:30 67 17 100/48 100 Nasal Cannula 2.0 07/17/17 12:00 67 07/17/17 12:00 97.8 67 18 98/52 100 Nasal Cannula 2.0 07/17/17 11:30 78 18 112/44 100 Nasal Cannula 2.0 07/17/17 11:00 79 20 98/50 97 Nasal Cannula 2.0 07/17/17 10:30 81 19 100/48 97 Nasal Cannula 2.0 07/17/17 10:00 85 19 103/54 96 Nasal Cannula 2.0 07/17/17 09:30 73 18 91/55 99 Nasal Cannula 2.0 07/17/17 09:00 78 19 90/45 96 Nasal Cannula 2.0 07/17/17 08:30 76 19 93/54 96 Nasal Cannula 2.0 07/17/17 08:00 103 07/17/17 08:00 98.0 85 20 99/53 96 Nasal Cannula 2.0 07/17/17 07:36 Nasal Cannula 2.0 28 07/17/17 07:35 100 Nasal Cannula 2.0 28 07/17/17 07:30 103 19 102/66 98 Nasal Cannula 2.0 07/17/17 07:00 68 18 88/52 98 Nasal Cannula 2.0 07/17/17 06:36 91/46 07/17/17 06:15 67 17 91/46 100 Nasal Cannula 2.0 07/17/17 06:00 69 17 100/59 100 Nasal Cannula 2.0 07/17/17 05:45 69 17 99/59 100 Nasal Cannula 2.0 07/17/17 05:30 72 17 93/50 100 Nasal Cannula 2.0 07/17/17 05:15 80 17 99/52 100 Nasal Cannula 2.0 07/17/17 05:00 80 17 105/55 100 Nasal Cannula 2.0 07/17/17 04:45 85 17 100/64 100 Nasal Cannula 2.0 07/17/17 04:30 85 17 112/64 100 Nasal Cannula 2.0 07/17/17 04:15 99 17 87/59 100 Nasal Cannula 2.0 07/17/17 04:00 98.0 78 17 104/60 100 Nasal Cannula 2.0 07/17/17 04:00 66 07/17/17 03:45 65 17 96/51 100 Nasal Cannula 2.0 07/17/17 03:30 71 17 93/51 100 Nasal Cannula 2.0 07/17/17 03:15 67 17 97/56 100 Nasal Cannula 2.0 07/17/17 03:00 73 19 99/55 100 Nasal Cannula 2.0 07/17/17 02:45 67 19 98/49 100 Nasal Cannula 2.0 07/17/17 02:30 69 19 92/51 100 Nasal Cannula 2.0 07/17/17 02:15 73 19 99/55 100 Nasal Cannula 2.0 07/17/17 02:00 83 19 102/56 100 Nasal Cannula 2.0 07/17/17 01:45 80 19 134/69 100 Nasal Cannula 2.0 07/17/17 01:30 78 19 99/50 100 Nasal Cannula 2.0 07/17/17 01:15 69 19 92/46 100 Nasal Cannula 2.0 07/17/17 01:00 66 19 92/46 100 Nasal Cannula 2.0 07/17/17 00:45 68 19 88/47 100 Nasal Cannula 2.0 07/17/17 00:30 64 19 92/52 100 Nasal Cannula 2.0 07/17/17 00:15 69 19 100/55 100 Nasal Cannula 2.0 07/17/17 00:00 81 19 97/49 100 Nasal Cannula 2.0 07/17/17 00:00 78 07/16/17 23:45 81 19 100/53 100 Nasal Cannula 2.0 07/16/17 23:30 70 19 94/53 100 Nasal Cannula 2.0 07/16/17 23:15 75 19 102/45 100 Nasal Cannula 2.0 07/16/17 23:00 73 19 106/55 100 Nasal Cannula 2.0 07/16/17 22:45 66 19 101/43 100 Nasal Cannula 2.0 07/16/17 22:30 67 19 96/48 100 Nasal Cannula 2.0 07/16/17 22:15 63 19 100/49 100 Nasal Cannula 2.0 07/16/17 22:00 67 19 99/48 100 Nasal Cannula 2.0 07/16/17 21:49 105/48 07/16/17 21:45 62 19 89/45 100 Nasal Cannula 2.0 07/16/17 21:30 63 19 100/49 100 Nasal Cannula 2.0 07/16/17 21:15 60 19 96/43 100 Nasal Cannula 2.0 07/16/17 21:00 62 19 102/46 100 Nasal Cannula 2.0 07/16/17 20:45 61 19 111/47 100 Nasal Cannula 2.0 07/16/17 20:30 64 19 90/47 100 Nasal Cannula 2.0 Intake and Output 07/17/17 07/18/17 19:00 07:00 Intake Total 1113.348 ml Output Total 1225 ml Balance -111.652 ml IV Total 1083.348 ml Tube Feeding 30 ml Output Urine Total 1225 ml Laboratory Tests 07/16/17 22:50: Arterial Blood pH 7.409, Arterial Blood Partial Pressure CO2 39.2, Arterial Blood Partial Pressure O2 84.9, Arterial Blood HCO3 24.2, Arterial Blood Oxygen Saturation 96.4, Arterial Blood Base Excess 0.3, Anthony Test Positive 07/17/17 03:25: White Blood Count 8.8, Red Blood Count 3.01L, Hemoglobin 10.6L, Hematocrit 30.0L , Mean Corpuscular Volume 100H, Mean Corpuscular Hemoglobin 35.1H, Mean Corpuscular Hemoglobin Concent 35.3, Red Cell Distribution Width 12.7, Platelet Count 302, Mean Platelet Volume 5.6L, Neutrophils (%) (Auto) 53.9, Lymphocytes ( %) (Auto) 29.9, Monocytes (%) (Auto) 5.8, Eosinophils (%) (Auto) 9.5H, Basophils (%) (Auto) 0.9, Prothrombin Time 10.6, Prothromb Time International Ratio 1.0, Activated Partial Thromboplast Time 31, Sodium Level 139, Potassium Level 4.1, Chloride Level 104, Carbon Dioxide Level 29, Anion Gap 6, Blood Urea Nitrogen 19H, Creatinine 0.8, Estimat Glomerular Filtration Rate > 60, Glucose Level 118H, Calcium Level 9.2, Total Bilirubin 0.2, Aspartate Amino Transf (AST/ SGOT) 15, Alanine Aminotransferase (ALT/SGPT) 15, Alkaline Phosphatase 65, Pro-B -Type Natriuretic Peptide 62, Total Protein 7.0, Albumin 2.3L, Globulin 4.7, Albumin/Globulin Ratio 0.5L Height (Feet): 5 Height (Inches): 9.00 Weight (Pounds): 128 Neck: supple Cardiovascular: normal rate Michael Simon MD Jul 17, 2017 20:15
--- NOTE | 2017-07-17 20:15 | General Progress Note ---
Assessment/Plan Problem List: (1) History of pacemaker ICD Codes: Z95.0 - Presence of cardiac pacemaker SNOMED: 458690239 (2) Schizophrenia ICD Codes: F20.9 - Schizophrenia, unspecified SNOMED: 67896824 (3) Limited mobility ICD Codes: Z74.09 - Other reduced mobility SNOMED: 8834400 (4) Acute respiratory failure ICD Codes: J96.00 - Acute respiratory failure, unspecified whether with hypoxia or hypercapnia SNOMED: 75992806 (5) Sepsis ICD Codes: A41.9 - Sepsis, unspecified organism SNOMED: 94053808 (6) HCAP (healthcare-associated pneumonia) ICD Codes: J18.9 - Pneumonia, unspecified organism SNOMED: 540368859 Status: progressing Assessment/Plan pacemaker resp failure no change no wheezing no bleeding Subjective ROS Limited/Unobtainable: Yes Allergies: Coded Allergies: CHLORPROMAZINE (Verified Allergy, Unknown, 06/23/17) ERYTHROMYCIN BASE (Verified Allergy, Unknown, 06/23/17) Uncoded Allergies: TAPE (Allergy, Unknown, 06/23/17) Objective Last 24 Hour Vital Signs Date Time Temp Pulse Resp B/P (MAP) Pulse Ox O2 Delivery O2 Flow Rate FiO2 07/17/17 19:10 77 16 40 07/17/17 17:43 114/64 07/17/17 16:40 79 17 50 07/17/17 16:00 50 07/17/17 16:00 65 07/17/17 15:30 69 18 124/68 100 Mechanical Ventilator 50 07/17/17 15:16 74 12 50 07/17/17 15:11 81 12 100 07/17/17 13:30 71 17 95/41 100 Nasal Cannula 2.0 07/17/17 13:00 66 17 104/39 100 Nasal Cannula 2.0 07/17/17 12:30 67 17 100/48 100 Nasal Cannula 2.0 07/17/17 12:00 67 07/17/17 12:00 97.8 67 18 98/52 100 Nasal Cannula 2.0 07/17/17 11:30 78 18 112/44 100 Nasal Cannula 2.0 07/17/17 11:00 79 20 98/50 97 Nasal Cannula 2.0 07/17/17 10:30 81 19 100/48 97 Nasal Cannula 2.0 07/17/17 10:00 85 19 103/54 96 Nasal Cannula 2.0 07/17/17 09:30 73 18 91/55 99 Nasal Cannula 2.0 07/17/17 09:00 78 19 90/45 96 Nasal Cannula 2.0 07/17/17 08:30 76 19 93/54 96 Nasal Cannula 2.0 07/17/17 08:00 103 07/17/17 08:00 98.0 85 20 99/53 96 Nasal Cannula 2.0 07/17/17 07:36 Nasal Cannula 2.0 28 07/17/17 07:35 100 Nasal Cannula 2.0 28 07/17/17 07:30 103 19 102/66 98 Nasal Cannula 2.0 07/17/17 07:00 68 18 88/52 98 Nasal Cannula 2.0 07/17/17 06:36 91/46 07/17/17 06:15 67 17 91/46 100 Nasal Cannula 2.0 07/17/17 06:00 69 17 100/59 100 Nasal Cannula 2.0 07/17/17 05:45 69 17 99/59 100 Nasal Cannula 2.0 07/17/17 05:30 72 17 93/50 100 Nasal Cannula 2.0 07/17/17 05:15 80 17 99/52 100 Nasal Cannula 2.0 07/17/17 05:00 80 17 105/55 100 Nasal Cannula 2.0 07/17/17 04:45 85 17 100/64 100 Nasal Cannula 2.0 07/17/17 04:30 85 17 112/64 100 Nasal Cannula 2.0 07/17/17 04:15 99 17 87/59 100 Nasal Cannula 2.0 07/17/17 04:00 98.0 78 17 104/60 100 Nasal Cannula 2.0 07/17/17 04:00 66 07/17/17 03:45 65 17 96/51 100 Nasal Cannula 2.0 07/17/17 03:30 71 17 93/51 100 Nasal Cannula 2.0 07/17/17 03:15 67 17 97/56 100 Nasal Cannula 2.0 07/17/17 03:00 73 19 99/55 100 Nasal Cannula 2.0 07/17/17 02:45 67 19 98/49 100 Nasal Cannula 2.0 07/17/17 02:30 69 19 92/51 100 Nasal Cannula 2.0 07/17/17 02:15 73 19 99/55 100 Nasal Cannula 2.0 07/17/17 02:00 83 19 102/56 100 Nasal Cannula 2.0 07/17/17 01:45 80 19 134/69 100 Nasal Cannula 2.0 07/17/17 01:30 78 19 99/50 100 Nasal Cannula 2.0 07/17/17 01:15 69 19 92/46 100 Nasal Cannula 2.0 07/17/17 01:00 66 19 92/46 100 Nasal Cannula 2.0 07/17/17 00:45 68 19 88/47 100 Nasal Cannula 2.0 07/17/17 00:30 64 19 92/52 100 Nasal Cannula 2.0 07/17/17 00:15 69 19 100/55 100 Nasal Cannula 2.0 07/17/17 00:00 81 19 97/49 100 Nasal Cannula 2.0 07/17/17 00:00 78 07/16/17 23:45 81 19 100/53 100 Nasal Cannula 2.0 07/16/17 23:30 70 19 94/53 100 Nasal Cannula 2.0 07/16/17 23:15 75 19 102/45 100 Nasal Cannula 2.0 07/16/17 23:00 73 19 106/55 100 Nasal Cannula 2.0 07/16/17 22:45 66 19 101/43 100 Nasal Cannula 2.0 07/16/17 22:30 67 19 96/48 100 Nasal Cannula 2.0 07/16/17 22:15 63 19 100/49 100 Nasal Cannula 2.0 07/16/17 22:00 67 19 99/48 100 Nasal Cannula 2.0 07/16/17 21:49 105/48 07/16/17 21:45 62 19 89/45 100 Nasal Cannula 2.0 07/16/17 21:30 63 19 100/49 100 Nasal Cannula 2.0 07/16/17 21:15 60 19 96/43 100 Nasal Cannula 2.0 07/16/17 21:00 62 19 102/46 100 Nasal Cannula 2.0 07/16/17 20:45 61 19 111/47 100 Nasal Cannula 2.0 07/16/17 20:30 64 19 90/47 100 Nasal Cannula 2.0 Intake and Output 07/17/17 07/18/17 19:00 07:00 Intake Total 1113.348 ml Output Total 1225 ml Balance -111.652 ml IV Total 1083.348 ml Tube Feeding 30 ml Output Urine Total 1225 ml Laboratory Tests 07/16/17 22:50: Arterial Blood pH 7.409, Arterial Blood Partial Pressure CO2 39.2, Arterial Blood Partial Pressure O2 84.9, Arterial Blood HCO3 24.2, Arterial Blood Oxygen Saturation 96.4, Arterial Blood Base Excess 0.3, Anthony Test Positive 07/17/17 03:25: White Blood Count 8.8, Red Blood Count 3.01L, Hemoglobin 10.6L, Hematocrit 30.0L , Mean Corpuscular Volume 100H, Mean Corpuscular Hemoglobin 35.1H, Mean Corpuscular Hemoglobin Concent 35.3, Red Cell Distribution Width 12.7, Platelet Count 302, Mean Platelet Volume 5.6L, Neutrophils (%) (Auto) 53.9, Lymphocytes ( %) (Auto) 29.9, Monocytes (%) (Auto) 5.8, Eosinophils (%) (Auto) 9.5H, Basophils (%) (Auto) 0.9, Prothrombin Time 10.6, Prothromb Time International Ratio 1.0, Activated Partial Thromboplast Time 31, Sodium Level 139, Potassium Level 4.1, Chloride Level 104, Carbon Dioxide Level 29, Anion Gap 6, Blood Urea Nitrogen 19H, Creatinine 0.8, Estimat Glomerular Filtration Rate > 60, Glucose Level 118H, Calcium Level 9.2, Total Bilirubin 0.2, Aspartate Amino Transf (AST/ SGOT) 15, Alanine Aminotransferase (ALT/SGPT) 15, Alkaline Phosphatase 65, Pro-B -Type Natriuretic Peptide 62, Total Protein 7.0, Albumin 2.3L, Globulin 4.7, Albumin/Globulin Ratio 0.5L Height (Feet): 5 Height (Inches): 9.00 Weight (Pounds): 128 Neck: supple Cardiovascular: normal rate Michael Simon MD Jul 17, 2017 20:15
--- NOTE | 2017-07-17 20:15 | General Progress Note ---
Assessment/Plan Problem List: (1) History of pacemaker ICD Codes: Z95.0 - Presence of cardiac pacemaker SNOMED: 686774139 (2) Schizophrenia ICD Codes: F20.9 - Schizophrenia, unspecified SNOMED: 25139222 (3) Limited mobility ICD Codes: Z74.09 - Other reduced mobility SNOMED: 6380731 (4) Acute respiratory failure ICD Codes: J96.00 - Acute respiratory failure, unspecified whether with hypoxia or hypercapnia SNOMED: 12363628 (5) Sepsis ICD Codes: A41.9 - Sepsis, unspecified organism SNOMED: 49128516 (6) HCAP (healthcare-associated pneumonia) ICD Codes: J18.9 - Pneumonia, unspecified organism SNOMED: 047584409 Status: progressing Assessment/Plan pacemaker resp failure no change no wheezing no bleeding Subjective ROS Limited/Unobtainable: Yes Allergies: Coded Allergies: CHLORPROMAZINE (Verified Allergy, Unknown, 06/23/17) ERYTHROMYCIN BASE (Verified Allergy, Unknown, 06/23/17) Uncoded Allergies: TAPE (Allergy, Unknown, 06/23/17) Objective Last 24 Hour Vital Signs Date Time Temp Pulse Resp B/P (MAP) Pulse Ox O2 Delivery O2 Flow Rate FiO2 07/17/17 19:10 77 16 40 07/17/17 17:43 114/64 07/17/17 16:40 79 17 50 07/17/17 16:00 50 07/17/17 16:00 65 07/17/17 15:30 69 18 124/68 100 Mechanical Ventilator 50 07/17/17 15:16 74 12 50 07/17/17 15:11 81 12 100 07/17/17 13:30 71 17 95/41 100 Nasal Cannula 2.0 07/17/17 13:00 66 17 104/39 100 Nasal Cannula 2.0 07/17/17 12:30 67 17 100/48 100 Nasal Cannula 2.0 07/17/17 12:00 67 07/17/17 12:00 97.8 67 18 98/52 100 Nasal Cannula 2.0 07/17/17 11:30 78 18 112/44 100 Nasal Cannula 2.0 07/17/17 11:00 79 20 98/50 97 Nasal Cannula 2.0 07/17/17 10:30 81 19 100/48 97 Nasal Cannula 2.0 07/17/17 10:00 85 19 103/54 96 Nasal Cannula 2.0 07/17/17 09:30 73 18 91/55 99 Nasal Cannula 2.0 07/17/17 09:00 78 19 90/45 96 Nasal Cannula 2.0 07/17/17 08:30 76 19 93/54 96 Nasal Cannula 2.0 07/17/17 08:00 103 07/17/17 08:00 98.0 85 20 99/53 96 Nasal Cannula 2.0 07/17/17 07:36 Nasal Cannula 2.0 28 07/17/17 07:35 100 Nasal Cannula 2.0 28 07/17/17 07:30 103 19 102/66 98 Nasal Cannula 2.0 07/17/17 07:00 68 18 88/52 98 Nasal Cannula 2.0 07/17/17 06:36 91/46 07/17/17 06:15 67 17 91/46 100 Nasal Cannula 2.0 07/17/17 06:00 69 17 100/59 100 Nasal Cannula 2.0 07/17/17 05:45 69 17 99/59 100 Nasal Cannula 2.0 07/17/17 05:30 72 17 93/50 100 Nasal Cannula 2.0 07/17/17 05:15 80 17 99/52 100 Nasal Cannula 2.0 07/17/17 05:00 80 17 105/55 100 Nasal Cannula 2.0 07/17/17 04:45 85 17 100/64 100 Nasal Cannula 2.0 07/17/17 04:30 85 17 112/64 100 Nasal Cannula 2.0 07/17/17 04:15 99 17 87/59 100 Nasal Cannula 2.0 07/17/17 04:00 98.0 78 17 104/60 100 Nasal Cannula 2.0 07/17/17 04:00 66 07/17/17 03:45 65 17 96/51 100 Nasal Cannula 2.0 07/17/17 03:30 71 17 93/51 100 Nasal Cannula 2.0 07/17/17 03:15 67 17 97/56 100 Nasal Cannula 2.0 07/17/17 03:00 73 19 99/55 100 Nasal Cannula 2.0 07/17/17 02:45 67 19 98/49 100 Nasal Cannula 2.0 07/17/17 02:30 69 19 92/51 100 Nasal Cannula 2.0 07/17/17 02:15 73 19 99/55 100 Nasal Cannula 2.0 07/17/17 02:00 83 19 102/56 100 Nasal Cannula 2.0 07/17/17 01:45 80 19 134/69 100 Nasal Cannula 2.0 07/17/17 01:30 78 19 99/50 100 Nasal Cannula 2.0 07/17/17 01:15 69 19 92/46 100 Nasal Cannula 2.0 07/17/17 01:00 66 19 92/46 100 Nasal Cannula 2.0 07/17/17 00:45 68 19 88/47 100 Nasal Cannula 2.0 07/17/17 00:30 64 19 92/52 100 Nasal Cannula 2.0 07/17/17 00:15 69 19 100/55 100 Nasal Cannula 2.0 07/17/17 00:00 81 19 97/49 100 Nasal Cannula 2.0 07/17/17 00:00 78 07/16/17 23:45 81 19 100/53 100 Nasal Cannula 2.0 07/16/17 23:30 70 19 94/53 100 Nasal Cannula 2.0 07/16/17 23:15 75 19 102/45 100 Nasal Cannula 2.0 07/16/17 23:00 73 19 106/55 100 Nasal Cannula 2.0 07/16/17 22:45 66 19 101/43 100 Nasal Cannula 2.0 07/16/17 22:30 67 19 96/48 100 Nasal Cannula 2.0 07/16/17 22:15 63 19 100/49 100 Nasal Cannula 2.0 07/16/17 22:00 67 19 99/48 100 Nasal Cannula 2.0 07/16/17 21:49 105/48 07/16/17 21:45 62 19 89/45 100 Nasal Cannula 2.0 07/16/17 21:30 63 19 100/49 100 Nasal Cannula 2.0 07/16/17 21:15 60 19 96/43 100 Nasal Cannula 2.0 07/16/17 21:00 62 19 102/46 100 Nasal Cannula 2.0 07/16/17 20:45 61 19 111/47 100 Nasal Cannula 2.0 07/16/17 20:30 64 19 90/47 100 Nasal Cannula 2.0 Intake and Output 07/17/17 07/18/17 19:00 07:00 Intake Total 1113.348 ml Output Total 1225 ml Balance -111.652 ml IV Total 1083.348 ml Tube Feeding 30 ml Output Urine Total 1225 ml Laboratory Tests 07/16/17 22:50: Arterial Blood pH 7.409, Arterial Blood Partial Pressure CO2 39.2, Arterial Blood Partial Pressure O2 84.9, Arterial Blood HCO3 24.2, Arterial Blood Oxygen Saturation 96.4, Arterial Blood Base Excess 0.3, Anthony Test Positive 07/17/17 03:25: White Blood Count 8.8, Red Blood Count 3.01L, Hemoglobin 10.6L, Hematocrit 30.0L , Mean Corpuscular Volume 100H, Mean Corpuscular Hemoglobin 35.1H, Mean Corpuscular Hemoglobin Concent 35.3, Red Cell Distribution Width 12.7, Platelet Count 302, Mean Platelet Volume 5.6L, Neutrophils (%) (Auto) 53.9, Lymphocytes ( %) (Auto) 29.9, Monocytes (%) (Auto) 5.8, Eosinophils (%) (Auto) 9.5H, Basophils (%) (Auto) 0.9, Prothrombin Time 10.6, Prothromb Time International Ratio 1.0, Activated Partial Thromboplast Time 31, Sodium Level 139, Potassium Level 4.1, Chloride Level 104, Carbon Dioxide Level 29, Anion Gap 6, Blood Urea Nitrogen 19H, Creatinine 0.8, Estimat Glomerular Filtration Rate > 60, Glucose Level 118H, Calcium Level 9.2, Total Bilirubin 0.2, Aspartate Amino Transf (AST/ SGOT) 15, Alanine Aminotransferase (ALT/SGPT) 15, Alkaline Phosphatase 65, Pro-B -Type Natriuretic Peptide 62, Total Protein 7.0, Albumin 2.3L, Globulin 4.7, Albumin/Globulin Ratio 0.5L Height (Feet): 5 Height (Inches): 9.00 Weight (Pounds): 128 Neck: supple Cardiovascular: normal rate Michael Simon MD Jul 17, 2017 20:15
[2017-07-18] VITALS (48 sets, daily range): BP systolic 74–139; BP diastolic 40–74
--- NOTE | 2017-07-18 00:01 | Operative Note - Dictated ---
DATE OF OPERATION: 07/17/2017 PREOPERATIVE DIAGNOSIS: Recurrent respiratory failure. POSTOPERATIVE DIAGNOSIS: Recurrent respiratory failure. SURGEON: Paco Garza M.D. SUPERVISOR SELF SERVICE STORE: None. ANESTHESIOLOGIST: Hyacinth Ham M.D. INDICATION FOR SURGERY: The patient is on BiPAP, intubated recurrently many times. It was decided with his conservator who is a physician as well as a city library director and his primary care doctor that they would like him to have a trach to maintain his airway, which I have been asked to do. FINDINGS: Normal anatomy. TECHNIQUE: The patient was prepped and draped in the usual manner via oral endotracheal anesthesia. A time-out had been performed. I then injected 10 mL of 1% lidocaine without epinephrine without difficulty. Initially, 2 fingerbreadths above the sternal notch with a #15 blade, a 1-1/2 inch incision was made. This was cauterized and taken down to the strap muscles horizontally with a cautery setting of 14. When I got to the strap muscles, I then divided vertically between the strap muscles down to the thyroid, which was divided with electrocautery, again at a setting of 14 without difficulty. I then wiped off the face of the trachea. Trach hook was placed in the cricoid pulling it up. An incision was made between the second and third tracheal ring while providing visualization with [employer] retractors on either side. I then cut a small flap on either side inferiorly through the third tracheal ring and sewed this to the inferior epithelial edge of the incision. In direct contact with the anesthesiologist, the endotracheal tube was pulled up where the tip was just above the new stoma leaving in place until I had positioned the new number #8 Shiley cuffed nonfenestrated tube. This was then tied with a trach tie on the right side two fingerbreadths loose and four 3-0 silk sutures to hold the flange of the new trach in place. The wound was then packed with iodoform gauze 0.25 inch. A piece of Telfa was placed between the skin and the flange of the trach. Sponge and needle count was correct. ESTIMATED BLOOD LOSS: 2 mL. COUNTS: None. DRAINS: None. Paco Garza M.D. DR: Ariane JOB#: [id number] CC:
--- NOTE | 2017-07-18 00:01 | Operative Note - Dictated ---
DATE OF OPERATION: 07/17/2017 PREOPERATIVE DIAGNOSIS: Recurrent respiratory failure. POSTOPERATIVE DIAGNOSIS: Recurrent respiratory failure. SURGEON: Paco Garza M.D. CURATOR OF PHOTOGRAPHY AND PRINTS: None. ANESTHESIOLOGIST: Hyacinth Ham M.D. INDICATION FOR SURGERY: The patient is on BiPAP, intubated recurrently many times. It was decided with his conservator who is a physician as well as a chief informatics officer and his primary care doctor that they would like him to have a trach to maintain his airway, which I have been asked to do. FINDINGS: Normal anatomy. TECHNIQUE: The patient was prepped and draped in the usual manner via oral endotracheal anesthesia. A time-out had been performed. I then injected 10 mL of 1% lidocaine without epinephrine without difficulty. Initially, 2 fingerbreadths above the sternal notch with a #15 blade, a 1-1/2 inch incision was made. This was cauterized and taken down to the strap muscles horizontally with a cautery setting of 14. When I got to the strap muscles, I then divided vertically between the strap muscles down to the thyroid, which was divided with electrocautery, again at a setting of 14 without difficulty. I then wiped off the face of the trachea. Trach hook was placed in the cricoid pulling it up. An incision was made between the second and third tracheal ring while providing visualization with [employer] retractors on either side. I then cut a small flap on either side inferiorly through the third tracheal ring and sewed this to the inferior epithelial edge of the incision. In direct contact with the anesthesiologist, the endotracheal tube was pulled up where the tip was just above the new stoma leaving in place until I had positioned the new number #8 Shiley cuffed nonfenestrated tube. This was then tied with a trach tie on the right side two fingerbreadths loose and four 3-0 silk sutures to hold the flange of the new trach in place. The wound was then packed with iodoform gauze 0.25 inch. A piece of Telfa was placed between the skin and the flange of the trach. Sponge and needle count was correct. ESTIMATED BLOOD LOSS: 2 mL. COUNTS: None. DRAINS: None. Paco Garza M.D. DR: Ariane JOB#: [id number] CC:
--- NOTE | 2017-07-18 00:01 | Operative Note - Dictated ---
DATE OF OPERATION: 07/17/2017 PREOPERATIVE DIAGNOSIS: Recurrent respiratory failure. POSTOPERATIVE DIAGNOSIS: Recurrent respiratory failure. SURGEON: Paco Garza M.D. CAMERA CONTROL OPERATOR: None. ANESTHESIOLOGIST: Hyacinth Ham M.D. INDICATION FOR SURGERY: The patient is on BiPAP, intubated recurrently many times. It was decided with his conservator who is a physician as well as a copyright manager and his primary care doctor that they would like him to have a trach to maintain his airway, which I have been asked to do. FINDINGS: Normal anatomy. TECHNIQUE: The patient was prepped and draped in the usual manner via oral endotracheal anesthesia. A time-out had been performed. I then injected 10 mL of 1% lidocaine without epinephrine without difficulty. Initially, 2 fingerbreadths above the sternal notch with a #15 blade, a 1-1/2 inch incision was made. This was cauterized and taken down to the strap muscles horizontally with a cautery setting of 14. When I got to the strap muscles, I then divided vertically between the strap muscles down to the thyroid, which was divided with electrocautery, again at a setting of 14 without difficulty. I then wiped off the face of the trachea. Trach hook was placed in the cricoid pulling it up. An incision was made between the second and third tracheal ring while providing visualization with [employer] retractors on either side. I then cut a small flap on either side inferiorly through the third tracheal ring and sewed this to the inferior epithelial edge of the incision. In direct contact with the anesthesiologist, the endotracheal tube was pulled up where the tip was just above the new stoma leaving in place until I had positioned the new number #8 Shiley cuffed nonfenestrated tube. This was then tied with a trach tie on the right side two fingerbreadths loose and four 3-0 silk sutures to hold the flange of the new trach in place. The wound was then packed with iodoform gauze 0.25 inch. A piece of Telfa was placed between the skin and the flange of the trach. Sponge and needle count was correct. ESTIMATED BLOOD LOSS: 2 mL. COUNTS: None. DRAINS: None. Paco Garza M.D. DR: Ariane JOB#: [id number] CC:
[2017-07-18 05:00] LABS: EOSINOPHILS % (AUTO) 7.9 % (0.0-3.0); HEMATOCRIT 29.8 % (42.0-52.0); HEMOGLOBIN 10.5 G/DL (14.2-18.0); LYMPHOCYTES % (AUTO) 33.1 % (20.0-45.0); MEAN CORPUSCULAR VOLUME 97 FL (80-99); MONOCYTES % (AUTO) 5.3 % (1.0-10.0); NEUTROPHILS % (AUTO) 52.6 % (45.0-75.0); PLATELET COUNT 297 K/UL (150-450); RED BLOOD COUNT 3.08 M/UL (4.70-6.10); RED CELL DISTRIBUTION WIDTH 12.4 % (11.6-14.8); WHITE BLOOD COUNT 8.7 K/UL (4.8-10.8)
[2017-07-18 05:25] LABS: ALANINE AMINOTRANSFERASE 12 U/L (12-78); ALBUMIN 2.4 G/DL (3.4-5.0); ALBUMIN/GLOBULIN RATIO 0.5 (1.0-2.7); ALKALINE PHOSPHATASE 67 U/L (46-116); ANION GAP 9 mmol/L (5-15); ASPARTATE AMINO TRANSFERASE 17 U/L (15-37); BILIRUBIN,TOTAL 0.2 MG/DL (0.2-1.0); BLOOD UREA NITROGEN 18 mg/dL (7-18); CALCIUM 9.2 MG/DL (8.5-10.1); CARBON DIOXIDE 25 MMOL/L (21-32); CHLORIDE 102 MMOL/L (98-107); CREATININE 0.9 MG/DL (0.55-1.30); PHOSPHORUS 3.4 MG/DL (2.5-4.9); SODIUM 136 MMOL/L (136-145)
[2017-07-18] MEDS: Meropenem 1 GM in NS 110 ML IVPB SCH ×3 (06:39→21:35)
[2017-07-18] MEDS: Pantoprazole Inj IV SCH (08:35)
[2017-07-18] MEDS: carBAMazepine 200mg tab GT SCH ×4 (08:35→20:42)
[2017-07-18] MEDS: Miralax 17gm pkt ORAL PRN (08:35)
[2017-07-18] MEDS: Theophylline ER 100mg ORAL SCH ×2 (08:35→21:04)
[2017-07-18] MEDS: Docusate 100mg/10ml Liq NG SCH (08:35)
[2017-07-18] MEDS: Heparin 5000 units/ml inj SUBQ SCH ×2 (08:44→20:45)
--- NOTE | 2017-07-18 09:19 | Nephrology Progress Note ---
Assessment/Plan Assessment 1. hypokalemia resolved 2. respiratory failure 3. hypotension 4. hypomagnesemia Plan plan to give NS bolus monitoring out put continue iv antibiotic monitoring renal function monitoring electrolyte replace as need avoid any NSAID Subjective ROS Limited/Unobtainable: Yes Constitutional: Reports: no symptoms HEENT: Reports: no symptoms Genitourinary: Reports: no symptoms Neurologic/Psychiatric: Reports: no symptoms Subjective s/p trach NAD Objective Objective Last 24 Hour Vital Signs Date Time Temp Pulse Resp B/P (MAP) Pulse Ox O2 Delivery O2 Flow Rate FiO2 07/18/17 09:00 72 16 99/42 100 Mechanical Ventilator 40 07/18/17 09:00 99/42 07/18/17 08:48 78 15 40 07/18/17 08:30 75 16 84/48 100 Mechanical Ventilator 40 07/18/17 08:00 40 07/18/17 08:00 98.2 77 18 100/54 100 Mechanical Ventilator 40 07/18/17 08:00 74 07/18/17 08:00 84/55 07/18/17 07:30 75 17 89/54 100 Mechanical Ventilator 40 07/18/17 07:00 70 18 85/44 100 Mechanical Ventilator 40 07/18/17 07:00 81/44 07/18/17 07:00 64 16 40 07/18/17 06:30 69 17 81/44 100 Mechanical Ventilator 40 07/18/17 06:00 70 17 82/49 100 Mechanical Ventilator 40 07/18/17 06:00 82/49 07/18/17 05:30 70 17 89/46 100 Mechanical Ventilator 40 07/18/17 05:27 71 16 40 07/18/17 05:00 73 16 92/55 100 Mechanical Ventilator 40 07/18/17 05:00 90/50 07/18/17 04:30 80 16 96/55 100 Mechanical Ventilator 40 07/18/17 04:00 98.8 78 16 80/48 100 Mechanical Ventilator 40 07/18/17 04:00 80/48 07/18/17 04:00 40 07/18/17 04:00 65 07/18/17 04:00 65 07/18/17 03:30 78 16 76/48 100 Mechanical Ventilator 40 07/18/17 03:24 77 16 40 07/18/17 03:00 78 16 76/48 100 Mechanical Ventilator 40 07/18/17 03:00 76/48 07/18/17 02:30 80 16 74/49 100 Mechanical Ventilator 40 07/18/17 02:00 78 16 80/43 100 Mechanical Ventilator 40 07/18/17 02:00 80/43 07/18/17 01:30 78 16 88/50 100 Mechanical Ventilator 40 07/18/17 01:17 76 16 40 07/18/17 01:00 88/50 07/18/17 01:00 75 16 83/49 100 Mechanical Ventilator 40 07/18/17 00:30 74 16 77/46 100 Mechanical Ventilator 40 07/18/17 00:00 78 07/18/17 00:00 98.4 74 16 81/53 100 Mechanical Ventilator 40 07/18/17 00:00 81/53 07/17/17 23:30 89/47 07/17/17 23:30 73 16 79/47 100 Mechanical Ventilator 40 07/17/17 23:26 81 16 40 07/17/17 23:00 74 16 87/47 100 Mechanical Ventilator 40 07/17/17 22:30 73 16 81/45 100 Mechanical Ventilator 40 07/17/17 22:00 74 16 81/45 100 Mechanical Ventilator 40 07/17/17 22:00 81/45 07/17/17 21:30 80 16 92/48 100 Mechanical Ventilator 40 07/17/17 21:08 82 16 40 07/17/17 21:00 87 16 89/44 100 Mechanical Ventilator 40 07/17/17 21:00 89/44 07/17/17 20:30 71 16 98/51 100 Mechanical Ventilator 40 07/17/17 20:00 98.8 69 16 109/52 100 Mechanical Ventilator 40 07/17/17 20:00 65 07/17/17 20:00 40 07/17/17 20:00 92/51 07/17/17 19:30 68 18 92/51 100 Mechanical Ventilator 40 07/17/17 19:10 77 16 40 07/17/17 19:00 68 16 98/50 100 Mechanical Ventilator 50 07/17/17 18:30 78 16 109/60 100 Mechanical Ventilator 50 07/17/17 18:00 86 17 112/48 100 Mechanical Ventilator 50 07/17/17 17:43 114/64 07/17/17 17:30 73 16 112/53 100 Mechanical Ventilator 50 07/17/17 17:00 69 18 124/68 100 Mechanical Ventilator 50 07/17/17 16:40 79 17 50 07/17/17 16:30 68 16 107/58 100 Mechanical Ventilator 50 07/17/17 16:00 50 07/17/17 16:00 97.6 71 16 111/36 100 Mechanical Ventilator 50 07/17/17 16:00 65 07/17/17 15:30 69 18 124/68 100 Mechanical Ventilator 50 07/17/17 15:16 74 12 50 07/17/17 15:11 81 12 100 07/17/17 13:30 71 17 95/41 100 Nasal Cannula 2.0 07/17/17 13:00 66 17 104/39 100 Nasal Cannula 2.0 07/17/17 12:30 67 17 100/48 100 Nasal Cannula 2.0 07/17/17 12:00 67 07/17/17 12:00 97.8 67 18 98/52 100 Nasal Cannula 2.0 07/17/17 11:30 78 18 112/44 100 Nasal Cannula 2.0 07/17/17 11:00 79 20 98/50 97 Nasal Cannula 2.0 07/17/17 10:30 81 19 100/48 97 Nasal Cannula 2.0 07/17/17 10:00 85 19 103/54 96 Nasal Cannula 2.0 07/17/17 09:30 73 18 91/55 99 Nasal Cannula 2.0 Intake and Output 07/18/17 07/19/17 19:00 07:00 Intake Total 225.65 ml Output Total 250 ml Balance -24.35 ml IV Total 145.65 ml Tube Feeding 80 ml Output Urine Total 250 ml Laboratory Tests 07/18/17 03:35: White Blood Count 8.7, Red Blood Count 3.08L, Hemoglobin 10.5L, Hematocrit 29.8L , Mean Corpuscular Volume 97, Mean Corpuscular Hemoglobin 34.2H, Mean Corpuscular Hemoglobin Concent 35.2, Red Cell Distribution Width 12.4, Platelet Count 297, Mean Platelet Volume 5.1L, Neutrophils (%) (Auto) 52.6, Lymphocytes ( %) (Auto) 33.1, Monocytes (%) (Auto) 5.3, Eosinophils (%) (Auto) 7.9H, Basophils (%) (Auto) 1.0, Sodium Level 136, Potassium Level 4.0, Chloride Level 102, Carbon Dioxide Level 25, Anion Gap 9, Blood Urea Nitrogen 18, Creatinine 0.9, Estimat Glomerular Filtration Rate > 60, Glucose Level 96, Calcium Level 9.2, Phosphorus Level 3.4, Magnesium Level 2.2, Total Bilirubin 0.2, Aspartate Amino Transf (AST/SGOT) 17, Alanine Aminotransferase (ALT/SGPT) 12, Alkaline Phosphatase 67, Total Protein 6.9, Albumin 2.4L, Globulin 4.5, Albumin/Globulin Ratio 0.5L 07/18/17 08:38: Arterial Blood pH 7.510H, Arterial Blood Partial Pressure CO2 30.2L, Arterial Blood Partial Pressure O2 103.6H, Arterial Blood HCO3 23.9, Arterial Blood Oxygen Saturation 97.7, Arterial Blood Base Excess 1.6, Anthony Test Positive Height (Feet): 5 Height (Inches): 9.00 Weight (Pounds): 170 Objective HEAD AND NECK: No JVP. No LAD. No thyromegaly. Extraocular movements intact. Pupils are reactive to light and accommodation. LUNGS: Clear to auscultation. CARDIAC: Regular rate and rhythm. S1 and S2. No murmur. No rub. ABDOMEN: Soft, nontender, and nondistended. EXTREMITIES: No edema. No clubbing. No cyanosis. NEUROLOGIC: The patient opened up his eyes, not following verbal commands. RANCHO SYKES Jul 18, 2017 09:19
[2017-07-18] MEDS: DOPamine 400mg/250ml 250 ML IV SCH ×2 (12:00→21:33)
--- NOTE | 2017-07-18 12:57 | Diagnostic Imaging Report ---
Indication: DYSPNEA Technique: One view of the chest Comparison: 07/17/2017 Findings: Improved position of the previously demonstrated malpositioned PICC, tip now projecting at level of the superior vena cava. There is better aeration of left lung than on the prior exam. There is still considerable lower lobe consolidation and volume loss A tracheostomy tube is now present. Nasogastric tube remains, proximal port projected at or above the level of the gastroesophageal junction. No pneumomediastinum. The right lung and pleural space remain clear Impression: Interim tracheostomy placement. No radiographically evident complication. Improved aeration of the left lung. Considerable parenchymal disease persists, however. Improved position of PICC High position of nasogastric tube. Advancement recommended. This was discussed with the patient's nurse at the time of interpretation
--- NOTE | 2017-07-18 13:16 | Pulmonolgy Critical Care Note ---
Critical Care - Asmt/Plan Problems: (1) Septic shock (2) Acute encephalopathy (3) Acute respiratory failure (4) Collapse of left lung (5) UTI (urinary tract infection) (6) Schizophrenia (7) History of pacemaker (8) Fever Respiratory: monitor respiratory rate, adjust FIO2, CXR Cardiac: continue pressors, continue to monitor HR/BP Renal: F/U I&O Infectious Disease: check cultures, continue antibiotics Gastrointestinal: continue feedings/current rate, hold feedings Endocrine: check TSH, continue sliding scale insulin Hematologic: transfuse if hgb<8.5 Neurologic: PRN Ativan, PRN Morphine, keep patient comfortable Affect: PRN ativan Disposition: keep in ICU Notes Reviewed: cardio, 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 with: nurses, consultants, manager case managementadvertising campaign manager - Objective Last 24 Hour Vital Signs Date Time Temp Pulse Resp B/P (MAP) Pulse Ox O2 Delivery O2 Flow Rate FiO2 07/18/17 12:00 40 07/18/17 12:00 68 07/18/17 12:00 80/44 07/18/17 10:55 78 15 30 07/18/17 10:00 82 16 86/44 100 Mechanical Ventilator 40 07/18/17 09:30 77 16 98/45 98 Mechanical Ventilator 40 07/18/17 09:00 72 16 99/42 100 Mechanical Ventilator 40 07/18/17 09:00 99/42 07/18/17 08:48 78 15 40 07/18/17 08:30 75 16 84/48 100 Mechanical Ventilator 40 07/18/17 08:00 40 07/18/17 08:00 98.2 77 18 100/54 100 Mechanical Ventilator 40 07/18/17 08:00 74 07/18/17 08:00 84/55 07/18/17 07:30 75 17 89/54 100 Mechanical Ventilator 40 07/18/17 07:00 70 18 85/44 100 Mechanical Ventilator 40 07/18/17 07:00 81/44 07/18/17 07:00 64 16 40 07/18/17 06:30 69 17 81/44 100 Mechanical Ventilator 40 07/18/17 06:00 70 17 82/49 100 Mechanical Ventilator 40 07/18/17 06:00 82/49 07/18/17 05:30 70 17 89/46 100 Mechanical Ventilator 40 07/18/17 05:27 71 16 40 07/18/17 05:00 73 16 92/55 100 Mechanical Ventilator 40 07/18/17 05:00 90/50 07/18/17 04:30 80 16 96/55 100 Mechanical Ventilator 40 07/18/17 04:00 98.8 78 16 80/48 100 Mechanical Ventilator 40 07/18/17 04:00 80/48 07/18/17 04:00 40 07/18/17 04:00 65 07/18/17 04:00 65 07/18/17 03:30 78 16 76/48 100 Mechanical Ventilator 40 07/18/17 03:24 77 16 40 07/18/17 03:00 78 16 76/48 100 Mechanical Ventilator 40 07/18/17 03:00 76/48 07/18/17 02:30 80 16 74/49 100 Mechanical Ventilator 40 07/18/17 02:00 78 16 80/43 100 Mechanical Ventilator 40 07/18/17 02:00 80/43 07/18/17 01:30 78 16 88/50 100 Mechanical Ventilator 40 07/18/17 01:17 76 16 40 07/18/17 01:00 88/50 07/18/17 01:00 75 16 83/49 100 Mechanical Ventilator 40 07/18/17 00:30 74 16 77/46 100 Mechanical Ventilator 40 07/18/17 00:00 78 07/18/17 00:00 98.4 74 16 81/53 100 Mechanical Ventilator 40 07/18/17 00:00 81/53 07/17/17 23:30 89/47 07/17/17 23:30 73 16 79/47 100 Mechanical Ventilator 40 07/17/17 23:26 81 16 40 07/17/17 23:00 74 16 87/47 100 Mechanical Ventilator 40 07/17/17 22:30 73 16 81/45 100 Mechanical Ventilator 40 07/17/17 22:00 74 16 81/45 100 Mechanical Ventilator 40 07/17/17 22:00 81/45 07/17/17 21:30 80 16 92/48 100 Mechanical Ventilator 40 07/17/17 21:08 82 16 40 07/17/17 21:00 87 16 89/44 100 Mechanical Ventilator 40 07/17/17 21:00 89/44 07/17/17 20:30 71 16 98/51 100 Mechanical Ventilator 40 07/17/17 20:00 98.8 69 16 109/52 100 Mechanical Ventilator 40 07/17/17 20:00 65 07/17/17 20:00 40 07/17/17 20:00 92/51 07/17/17 19:30 68 18 92/51 100 Mechanical Ventilator 40 07/17/17 19:10 77 16 40 07/17/17 19:00 68 16 98/50 100 Mechanical Ventilator 50 07/17/17 18:30 78 16 109/60 100 Mechanical Ventilator 50 07/17/17 18:00 86 17 112/48 100 Mechanical Ventilator 50 07/17/17 17:43 114/64 07/17/17 17:30 73 16 112/53 100 Mechanical Ventilator 50 07/17/17 17:00 69 18 124/68 100 Mechanical Ventilator 50 07/17/17 16:40 79 17 50 07/17/17 16:30 68 16 107/58 100 Mechanical Ventilator 50 07/17/17 16:00 50 07/17/17 16:00 97.6 71 16 111/36 100 Mechanical Ventilator 50 07/17/17 16:00 65 07/17/17 15:30 69 18 124/68 100 Mechanical Ventilator 50 07/17/17 15:16 74 12 50 07/17/17 15:11 81 12 100 07/17/17 13:30 71 17 95/41 100 Nasal Cannula 2.0 Status: awake Condition: critical, grave HEENT: atraumatic Lungs: clear Heart: HR/BP stable, regular Abdomen: non-tender, active bowel sounds, feeding tube Decubiti: location Critical Care - Subjective ROS Limited/Unobtainable: No Interval Events: tolerated trach very well Condition: critical FI02: 40 Vent Support Breath Rate: 16 Vent Support Mode: AC Vent Tidal Volume: 600 Sputum Amount: Small PIP: 27 Tube Feeding Amount: 40 I&O: Intake and Output 07/18/17 07/19/17 19:00 07:00 Intake Total 495.45 ml Output Total 650 ml Balance -154.55 ml IV Total 295.45 ml Tube Feeding 200 ml Output Urine Total 650 ml CXR: ET-Tube: 8.0 ET Position: 21 Labs: Laboratory Tests Test 07/18/17 03:35 07/18/17 08:38 White Blood Count 8.7 K/UL (4.8-10.8) Red Blood Count 3.08 M/UL (4.70-6.10) L Hemoglobin 10.5 G/DL (14.2-18.0) L Hematocrit 29.8 % (42.0-52.0) L Mean Corpuscular Volume 97 FL (80-99) Mean Corpuscular Hemoglobin 34.2 PG (27.0-31.0) H Mean Corpuscular Hemoglobin Concent 35.2 G/DL (32.0-36.0) Red Cell Distribution Width 12.4 % (11.6-14.8) Platelet Count 297 K/UL (150-450) Mean Platelet Volume 5.1 FL (6.5-10.1) L Neutrophils (%) (Auto) 52.6 % (45.0-75.0) Lymphocytes (%) (Auto) 33.1 % (20.0-45.0) Monocytes (%) (Auto) 5.3 % (1.0-10.0) Eosinophils (%) (Auto) 7.9 % (0.0-3.0) H Basophils (%) (Auto) 1.0 % (0.0-2.0) Sodium Level 136 MMOL/L (136-145) Potassium Level 4.0 MMOL/L (3.5-5.1) Chloride Level 102 MMOL/L (98-107) Carbon Dioxide Level 25 MMOL/L (21-32) Anion Gap 9 mmol/L (5-15) Blood Urea Nitrogen 18 mg/dL (7-18) Creatinine 0.9 MG/DL (0.55-1.30) Estimat Glomerular Filtration Rate > 60 mL/min (>60) Glucose Level 96 MG/DL (74-106) Calcium Level 9.2 MG/DL (8.5-10.1) Phosphorus Level 3.4 MG/DL (2.5-4.9) Magnesium Level 2.2 MG/DL (1.8-2.4) Total Bilirubin 0.2 MG/DL (0.2-1.0) Aspartate Amino Transf (AST/SGOT) 17 U/L (15-37) Alanine Aminotransferase (ALT/SGPT) 12 U/L (12-78) Alkaline Phosphatase 67 U/L (46-116) Total Protein 6.9 G/DL (6.4-8.2) Albumin 2.4 G/DL (3.4-5.0) L Globulin 4.5 g/dL Albumin/Globulin Ratio 0.5 (1.0-2.7) L Arterial Blood pH 7.510 (7.350-7.450) Arterial Blood Partial Pressure CO2 30.2 mmHg (35.0-45.0) L Arterial Blood Partial Pressure O2 103.6 mmHg (75.0-100.0) H Arterial Blood HCO3 23.9 mmol/L (22.0-26.0) Arterial Blood Oxygen Saturation 97.7 % (92.0-98.0) Arterial Blood Base Excess 1.6 Anthony Test Positive GWEN MARTE Jul 18, 2017 13:16
[2017-07-18] MEDS: Vancomycin 1250mg/D5W 250ml IVPB SCH (14:52)
--- NOTE | 2017-07-18 15:56 | Infectious Diseases Prog Note ---
Assessment/Plan Problems: (1) HCAP (healthcare-associated pneumonia) Assessment & Plan: due to left lung collapse again, S/P trachestomy , will continue meropenem and vancomycin for 8 days total since he developed left lung consolidation after his lung collapsed again with fever , pending sputum culture , monitor CXR, and WBC, continue nebulizers as needed, continue tracheostomy care (2) Acute respiratory failure Assessment & Plan: due to left lung collapse , S/P tracheostomy after recurrent collapse . 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 ,continue meropenem to treat for two weeks Subjective ROS Limited/Unobtainable: Yes Allergies: Coded Allergies: CHLORPROMAZINE (Verified Allergy, Unknown, 06/23/17) ERYTHROMYCIN BASE (Verified Allergy, Unknown, 06/23/17) Uncoded Allergies: TAPE (Allergy, Unknown, 06/23/17) Subjective he was more awake and interactive today, denied any cough or SOB, Had his tracheostomy done yesterday, comfortable, lying in bed, not in distress , no fever , no diarrhea, still on pressor Objective Vital Signs Last 24 Hour Vital Signs Date Time Temp Pulse Resp B/P (MAP) Pulse Ox O2 Delivery O2 Flow Rate FiO2 07/18/17 15:14 64 15 30 07/18/17 13:30 73 16 85/52 100 Mechanical Ventilator 40 07/18/17 13:00 90 16 86/42 100 Mechanical Ventilator 40 07/18/17 12:57 67 15 30 07/18/17 12:30 64 16 82/47 100 Mechanical Ventilator 40 07/18/17 12:00 40 07/18/17 12:00 68 07/18/17 12:00 98.4 67 16 89/50 98 Mechanical Ventilator 40 07/18/17 12:00 80/44 07/18/17 11:30 73 16 84/43 100 Mechanical Ventilator 40 07/18/17 11:00 73 16 90/44 100 Mechanical Ventilator 40 07/18/17 10:55 78 15 30 07/18/17 10:30 68 16 96/52 100 Mechanical Ventilator 40 07/18/17 10:00 82 16 86/44 100 Mechanical Ventilator 40 07/18/17 09:30 77 16 98/45 98 Mechanical Ventilator 40 07/18/17 09:00 72 16 99/42 100 Mechanical Ventilator 40 07/18/17 09:00 99/42 07/18/17 08:48 78 15 40 07/18/17 08:30 75 16 84/48 100 Mechanical Ventilator 40 07/18/17 08:00 40 07/18/17 08:00 98.2 77 18 100/54 100 Mechanical Ventilator 40 07/18/17 08:00 74 07/18/17 08:00 84/55 07/18/17 07:30 75 17 89/54 100 Mechanical Ventilator 40 07/18/17 07:00 70 18 85/44 100 Mechanical Ventilator 40 07/18/17 07:00 81/44 07/18/17 07:00 64 16 40 07/18/17 06:30 69 17 81/44 100 Mechanical Ventilator 40 07/18/17 06:00 70 17 82/49 100 Mechanical Ventilator 40 07/18/17 06:00 82/49 07/18/17 05:30 70 17 89/46 100 Mechanical Ventilator 40 07/18/17 05:27 71 16 40 07/18/17 05:00 73 16 92/55 100 Mechanical Ventilator 40 07/18/17 05:00 90/50 07/18/17 04:30 80 16 96/55 100 Mechanical Ventilator 40 07/18/17 04:00 98.8 78 16 80/48 100 Mechanical Ventilator 40 07/18/17 04:00 80/48 07/18/17 04:00 40 07/18/17 04:00 65 07/18/17 04:00 65 07/18/17 03:30 78 16 76/48 100 Mechanical Ventilator 40 07/18/17 03:24 77 16 40 07/18/17 03:00 78 16 76/48 100 Mechanical Ventilator 40 07/18/17 03:00 76/48 07/18/17 02:30 80 16 74/49 100 Mechanical Ventilator 40 07/18/17 02:00 78 16 80/43 100 Mechanical Ventilator 40 07/18/17 02:00 80/43 07/18/17 01:30 78 16 88/50 100 Mechanical Ventilator 40 07/18/17 01:17 76 16 40 07/18/17 01:00 88/50 07/18/17 01:00 75 16 83/49 100 Mechanical Ventilator 40 07/18/17 00:30 74 16 77/46 100 Mechanical Ventilator 40 07/18/17 00:00 78 07/18/17 00:00 98.4 74 16 81/53 100 Mechanical Ventilator 40 07/18/17 00:00 81/53 07/17/17 23:30 89/47 07/17/17 23:30 73 16 79/47 100 Mechanical Ventilator 40 07/17/17 23:26 81 16 40 07/17/17 23:00 74 16 87/47 100 Mechanical Ventilator 40 07/17/17 22:30 73 16 81/45 100 Mechanical Ventilator 40 07/17/17 22:00 74 16 81/45 100 Mechanical Ventilator 40 07/17/17 22:00 81/45 07/17/17 21:30 80 16 92/48 100 Mechanical Ventilator 40 07/17/17 21:08 82 16 40 07/17/17 21:00 87 16 89/44 100 Mechanical Ventilator 40 07/17/17 21:00 89/44 07/17/17 20:30 71 16 98/51 100 Mechanical Ventilator 40 07/17/17 20:00 98.8 69 16 109/52 100 Mechanical Ventilator 40 07/17/17 20:00 65 07/17/17 20:00 40 07/17/17 20:00 92/51 07/17/17 19:30 68 18 92/51 100 Mechanical Ventilator 40 07/17/17 19:10 77 16 40 07/17/17 19:00 68 16 98/50 100 Mechanical Ventilator 50 07/17/17 18:30 78 16 109/60 100 Mechanical Ventilator 50 07/17/17 18:00 86 17 112/48 100 Mechanical Ventilator 50 07/17/17 17:43 114/64 07/17/17 17:30 73 16 112/53 100 Mechanical Ventilator 50 07/17/17 17:00 69 18 124/68 100 Mechanical Ventilator 50 07/17/17 16:40 79 17 50 07/17/17 16:30 68 16 107/58 100 Mechanical Ventilator 50 07/17/17 16:00 50 07/17/17 16:00 97.6 71 16 111/36 100 Mechanical Ventilator 50 07/17/17 16:00 65 Height (Feet): 5 Height (Inches): 9.00 Weight (Pounds): 170 General Appearance: WD/WN, no acute distress HEENT: normocephalic, atraumatic, anicteric, mucous membranes moist Respiratory/Chest: chest wall non-tender, normal breath sounds, no respiratory distress, no accessory muscle use, decreased breath sounds, crackles/rales Cardiovascular: normal peripheral pulses, normal rate, regular rhythm, no gallop/murmur, no JVD Abdomen: normal bowel sounds, soft, non tender, no organomegaly, non distended , no mass, no scars Extremities: no cyanosis, no clubbing Skin: no rash, no lesions, no ulcers Neurologic/Psychiatric: alert, responsive Laboratory Tests Test 07/18/17 03:35 07/18/17 08:38 White Blood Count 8.7 K/UL (4.8-10.8) Red Blood Count 3.08 M/UL (4.70-6.10) L Hemoglobin 10.5 G/DL (14.2-18.0) L Hematocrit 29.8 % (42.0-52.0) L Mean Corpuscular Volume 97 FL (80-99) Mean Corpuscular Hemoglobin 34.2 PG (27.0-31.0) H Mean Corpuscular Hemoglobin Concent 35.2 G/DL (32.0-36.0) Red Cell Distribution Width 12.4 % (11.6-14.8) Platelet Count 297 K/UL (150-450) Mean Platelet Volume 5.1 FL (6.5-10.1) L Neutrophils (%) (Auto) 52.6 % (45.0-75.0) Lymphocytes (%) (Auto) 33.1 % (20.0-45.0) Monocytes (%) (Auto) 5.3 % (1.0-10.0) Eosinophils (%) (Auto) 7.9 % (0.0-3.0) H Basophils (%) (Auto) 1.0 % (0.0-2.0) Sodium Level 136 MMOL/L (136-145) Potassium Level 4.0 MMOL/L (3.5-5.1) Chloride Level 102 MMOL/L (98-107) Carbon Dioxide Level 25 MMOL/L (21-32) Anion Gap 9 mmol/L (5-15) Blood Urea Nitrogen 18 mg/dL (7-18) Creatinine 0.9 MG/DL (0.55-1.30) Estimat Glomerular Filtration Rate > 60 mL/min (>60) Glucose Level 96 MG/DL (74-106) Calcium Level 9.2 MG/DL (8.5-10.1) Phosphorus Level 3.4 MG/DL (2.5-4.9) Magnesium Level 2.2 MG/DL (1.8-2.4) Total Bilirubin 0.2 MG/DL (0.2-1.0) Aspartate Amino Transf (AST/SGOT) 17 U/L (15-37) Alanine Aminotransferase (ALT/SGPT) 12 U/L (12-78) Alkaline Phosphatase 67 U/L (46-116) Total Protein 6.9 G/DL (6.4-8.2) Albumin 2.4 G/DL (3.4-5.0) L Globulin 4.5 g/dL Albumin/Globulin Ratio 0.5 (1.0-2.7) L Arterial Blood pH 7.510 (7.350-7.450) Arterial Blood Partial Pressure CO2 30.2 mmHg (35.0-45.0) L Arterial Blood Partial Pressure O2 103.6 mmHg (75.0-100.0) H Arterial Blood HCO3 23.9 mmol/L (22.0-26.0) Arterial Blood Oxygen Saturation 97.7 % (92.0-98.0) Arterial Blood Base Excess 1.6 Anthony Test Positive Current Medications Medications (Trade) Dose Ordered Sig/Karen Route PRN Reason Start Time Stop Time Status Last Admin Dose Admin Albuterol/ Ipratropium (Albuterol/ Ipratropium) 3 ml Q4H PRN HHN Shortness of Breath 07/17/17 05:45 07/22/17 05:44 Carbamazepine (TEGretol) 200 mg FOUR TIMES A DAY GT 07/17/17 13:00 07/23/17 12:59 07/18/17 12:00 Chlorhexidine Gluconate (Cassandra-Hex 2%) 1 applic DAILY@1999 TOPIC 07/16/17 20:00 08/15/17 19:59 07/17/17 20:14 Dextrose (Dextrose 50%) STAT PRN IV Hypoglycemia 07/02/17 12:00 07/25/17 11:59 Docusate Sodium (Colace) 100 mg DAILY NG 07/17/17 09:00 08/16/17 08:59 07/18/17 08:35 Dopamine HCl/ Dextrose 250 ml @ 0 mls/hr Q24H IV 07/10/17 21:30 08/09/17 21:29 07/18/17 12:00 Heparin Sodium (Porcine) (Heparin 5000 units/ml) 5,000 units EVERY 12 HOURS SUBQ 07/02/17 09:00 07/23/17 20:59 07/18/17 08:44 Levetiracetam (Keppra) 500 mg Q12HR ORAL 07/02/17 09:00 07/23/17 20:59 07/18/17 08:35 Lorazepam (Ativan 2mg/ml 1ml) 2 mg Q4H PRN IV For Anxiety 07/13/17 08:45 07/20/17 08:44 07/14/17 00:13 Meropenem 1 gm/ Sodium Chloride 110 ml @ 220 mls/hr Q8HR IVPB 07/13/17 13:30 07/22/17 13:29 07/18/17 14:53 Morphine Sulfate (Morphine Sulfate) 4 mg Q4H PRN IVP PAIN 4-10 07/13/17 08:45 07/20/17 08:44 Nitroglycerin (Ntg) 0.4 mg Q5M X 3 DOSES PRN SL Prn Chest Pain 07/01/17 23:45 07/23/17 13:29 Norepinephrine Bitartrate 4 mg/ Dextrose 250 ml @ 0 mls/hr Q24H IV 07/18/17 15:00 08/17/17 14:59 Olanzapine (ZyPREXA) 20 mg BEDTIME GT 07/17/17 21:00 07/24/17 08:59 07/17/17 20:35 Ondansetron HCl (Zofran) 4 mg Q6H PRN IVP Nausea & Vomiting 07/02/17 00:00 07/23/17 11:59 Pantoprazole (Protonix) 40 mg DAILY IV 07/13/17 09:00 08/12/17 08:59 07/18/17 08:35 Polyethylene Glycol (Miralax) 17 gm DAILYPRN PRN ORAL Constipation 07/13/17 08:15 08/12/17 08:14 07/18/17 08:35 Sodium Chloride 1,000 ml @ 50 mls/hr Q20H IV 07/14/17 09:00 08/13/17 08:59 07/18/17 12:01 Theophylline (Dane-Dur) 100 mg EVERY 12 HOURS ORAL 07/02/17 09:00 07/23/17 20:59 07/18/17 08:35 Vancomycin HCl (Vanco rx to dose) 1 ea DAILY PRN MISC Per rx protocol 07/13/17 12:15 08/12/17 12:14 Vancomycin HCl/ Dextrose 250 ml @ 166.667 mls/hr Q24H IVPB 07/14/17 14:30 07/23/17 14:29 07/18/17 14:52 Dafne Orourke M.D. Jul 18, 2017 15:56
--- NOTE | 2017-07-18 17:12 | Cardiology Progress Note ---
Assessment/Plan Assessment/Plan 1. Recurrent respiratory failure, s/p bronchoscopy, recurrence of left lung collapse, s/p tracheostomy on the ventilator. 2. Septic shock, dopamine gtt increased to 19 mcg/kg/min, keep MAP >65 mmHg 3. Normal LV systolic function with LVEF at 60-65%. 4. SSS, s/p dual chamber pacemaker implantation, appears to eb functioning normally, captures when the HR goes below 60. Subjective Subjective Sinus rhythm at 77. On dopamine gtt at 19mcg/kg/min. NG tube in place. Objective Last 24 Hour Vital Signs Date Time Temp Pulse Resp B/P (MAP) Pulse Ox O2 Delivery O2 Flow Rate FiO2 07/18/17 16:30 82 16 115/59 100 Mechanical Ventilator 40 07/18/17 16:00 59 07/18/17 16:00 98.2 71 16 101/64 100 Mechanical Ventilator 40 07/18/17 16:00 40 07/18/17 15:30 63 16 123/54 100 Mechanical Ventilator 40 07/18/17 15:14 64 15 30 07/18/17 15:00 123/54 07/18/17 15:00 62 16 84/53 100 Mechanical Ventilator 40 07/18/17 14:30 80 16 122/70 100 Mechanical Ventilator 40 07/18/17 14:00 86 17 74/46 100 Mechanical Ventilator 40 07/18/17 13:30 73 16 85/52 100 Mechanical Ventilator 40 07/18/17 13:00 90 16 86/42 100 Mechanical Ventilator 40 07/18/17 12:57 67 15 30 07/18/17 12:30 64 16 82/47 100 Mechanical Ventilator 40 07/18/17 12:00 40 07/18/17 12:00 68 07/18/17 12:00 98.4 67 16 89/50 98 Mechanical Ventilator 40 07/18/17 12:00 80/44 07/18/17 11:30 73 16 84/43 100 Mechanical Ventilator 40 07/18/17 11:00 73 16 90/44 100 Mechanical Ventilator 40 07/18/17 10:55 78 15 30 07/18/17 10:30 68 16 96/52 100 Mechanical Ventilator 40 07/18/17 10:00 82 16 86/44 100 Mechanical Ventilator 40 07/18/17 09:30 77 16 98/45 98 Mechanical Ventilator 40 07/18/17 09:00 72 16 99/42 100 Mechanical Ventilator 40 07/18/17 09:00 99/42 07/18/17 08:48 78 15 40 07/18/17 08:30 75 16 84/48 100 Mechanical Ventilator 40 07/18/17 08:00 40 07/18/17 08:00 98.2 77 18 100/54 100 Mechanical Ventilator 40 07/18/17 08:00 74 07/18/17 08:00 84/55 07/18/17 07:30 75 17 89/54 100 Mechanical Ventilator 40 07/18/17 07:00 70 18 85/44 100 Mechanical Ventilator 40 07/18/17 07:00 81/44 07/18/17 07:00 64 16 40 07/18/17 06:30 69 17 81/44 100 Mechanical Ventilator 40 07/18/17 06:00 70 17 82/49 100 Mechanical Ventilator 40 07/18/17 06:00 82/49 07/18/17 05:30 70 17 89/46 100 Mechanical Ventilator 40 07/18/17 05:27 71 16 40 07/18/17 05:00 73 16 92/55 100 Mechanical Ventilator 40 07/18/17 05:00 90/50 07/18/17 04:30 80 16 96/55 100 Mechanical Ventilator 40 07/18/17 04:00 98.8 78 16 80/48 100 Mechanical Ventilator 40 07/18/17 04:00 80/48 07/18/17 04:00 40 07/18/17 04:00 65 07/18/17 04:00 65 07/18/17 03:30 78 16 76/48 100 Mechanical Ventilator 40 07/18/17 03:24 77 16 40 07/18/17 03:00 78 16 76/48 100 Mechanical Ventilator 40 07/18/17 03:00 76/48 07/18/17 02:30 80 16 74/49 100 Mechanical Ventilator 40 07/18/17 02:00 78 16 80/43 100 Mechanical Ventilator 40 07/18/17 02:00 80/43 07/18/17 01:30 78 16 88/50 100 Mechanical Ventilator 40 07/18/17 01:17 76 16 40 07/18/17 01:00 88/50 07/18/17 01:00 75 16 83/49 100 Mechanical Ventilator 40 07/18/17 00:30 74 16 77/46 100 Mechanical Ventilator 40 07/18/17 00:00 78 07/18/17 00:00 98.4 74 16 81/53 100 Mechanical Ventilator 40 07/18/17 00:00 81/53 07/17/17 23:30 89/47 07/17/17 23:30 73 16 79/47 100 Mechanical Ventilator 40 07/17/17 23:26 81 16 40 07/17/17 23:00 74 16 87/47 100 Mechanical Ventilator 40 07/17/17 22:30 73 16 81/45 100 Mechanical Ventilator 40 07/17/17 22:00 74 16 81/45 100 Mechanical Ventilator 40 07/17/17 22:00 81/45 07/17/17 21:30 80 16 92/48 100 Mechanical Ventilator 40 07/17/17 21:08 82 16 40 07/17/17 21:00 87 16 89/44 100 Mechanical Ventilator 40 07/17/17 21:00 89/44 07/17/17 20:30 71 16 98/51 100 Mechanical Ventilator 40 07/17/17 20:00 98.8 69 16 109/52 100 Mechanical Ventilator 40 07/17/17 20:00 65 07/17/17 20:00 40 07/17/17 20:00 92/51 07/17/17 19:30 68 18 92/51 100 Mechanical Ventilator 40 07/17/17 19:10 77 16 40 07/17/17 19:00 68 16 98/50 100 Mechanical Ventilator 50 07/17/17 18:30 78 16 109/60 100 Mechanical Ventilator 50 07/17/17 18:00 86 17 112/48 100 Mechanical Ventilator 50 07/17/17 17:43 114/64 07/17/17 17:30 73 16 112/53 100 Mechanical Ventilator 50 Intake and Output 07/18/17 07/19/17 19:00 07:00 Intake Total 1362.60 ml Output Total 1245 ml Balance 117.60 ml IV Total 942.60 ml Tube Feeding 360 ml Other 60 ml Output Urine Total 1245 ml 2D Echo: LVEF 60-65%, mild TR with RVSP at 33 mmHg Laboratory Tests Test 07/18/17 03:35 07/18/17 08:38 White Blood Count 8.7 K/UL (4.8-10.8) Red Blood Count 3.08 M/UL (4.70-6.10) L Hemoglobin 10.5 G/DL (14.2-18.0) L Hematocrit 29.8 % (42.0-52.0) L Mean Corpuscular Volume 97 FL (80-99) Mean Corpuscular Hemoglobin 34.2 PG (27.0-31.0) H Mean Corpuscular Hemoglobin Concent 35.2 G/DL (32.0-36.0) Red Cell Distribution Width 12.4 % (11.6-14.8) Platelet Count 297 K/UL (150-450) Mean Platelet Volume 5.1 FL (6.5-10.1) L Neutrophils (%) (Auto) 52.6 % (45.0-75.0) Lymphocytes (%) (Auto) 33.1 % (20.0-45.0) Monocytes (%) (Auto) 5.3 % (1.0-10.0) Eosinophils (%) (Auto) 7.9 % (0.0-3.0) H Basophils (%) (Auto) 1.0 % (0.0-2.0) Sodium Level 136 MMOL/L (136-145) Potassium Level 4.0 MMOL/L (3.5-5.1) Chloride Level 102 MMOL/L (98-107) Carbon Dioxide Level 25 MMOL/L (21-32) Anion Gap 9 mmol/L (5-15) Blood Urea Nitrogen 18 mg/dL (7-18) Creatinine 0.9 MG/DL (0.55-1.30) Estimat Glomerular Filtration Rate > 60 mL/min (>60) Glucose Level 96 MG/DL (74-106) Calcium Level 9.2 MG/DL (8.5-10.1) Phosphorus Level 3.4 MG/DL (2.5-4.9) Magnesium Level 2.2 MG/DL (1.8-2.4) Total Bilirubin 0.2 MG/DL (0.2-1.0) Aspartate Amino Transf (AST/SGOT) 17 U/L (15-37) Alanine Aminotransferase (ALT/SGPT) 12 U/L (12-78) Alkaline Phosphatase 67 U/L (46-116) Total Protein 6.9 G/DL (6.4-8.2) Albumin 2.4 G/DL (3.4-5.0) L Globulin 4.5 g/dL Albumin/Globulin Ratio 0.5 (1.0-2.7) L Arterial Blood pH 7.510 (7.350-7.450) Arterial Blood Partial Pressure CO2 30.2 mmHg (35.0-45.0) L Arterial Blood Partial Pressure O2 103.6 mmHg (75.0-100.0) H Arterial Blood HCO3 23.9 mmol/L (22.0-26.0) Arterial Blood Oxygen Saturation 97.7 % (92.0-98.0) Arterial Blood Base Excess 1.6 Anthony Test Positive Objective HEENT: Atraumatic and normocephalic. ENT, pupils are equal, round, and reactive to light and accommodation. Pale conjunctiva, intubated. NECK: JVP cannot be assessed. No carotid bruit. Carotid upstrokes 2+ bilaterally. LUNGS: Diminished BS both bases. CVS: Normal S1, S2. no murmurs, gallops or rubs. PMI is at fourth intercostal space in the midclavicular line. ABDOMEN: Soft, nontender, and nondistended. No hepatosplenomegaly. Positive bowel sounds. EXTREMITIES: No evidence of edema, clubbing, or cyanosis. CALLUM BARON Jul 18, 2017 17:12
--- NOTE | 2017-07-18 18:29 | General Progress Note ---
Assessment/Plan Assessment/Plan Dementia schizophrenia encephalopathy -zyprexa -ativan Subjective Date patient seen: Jul 17, 2017 Allergies: Coded Allergies: CHLORPROMAZINE (Verified Allergy, Unknown, 06/23/17) ERYTHROMYCIN BASE (Verified Allergy, Unknown, 06/23/17) Uncoded Allergies: TAPE (Allergy, Unknown, 06/23/17) Subjective nad calm and no agitation the pt is uncooperative at times. sleeps most of the day. Objective Last 24 Hour Vital Signs Date Time Temp Pulse Resp B/P (MAP) Pulse Ox O2 Delivery O2 Flow Rate FiO2 07/18/17 18:00 68 16 90/53 99 Mechanical Ventilator 40 07/18/17 17:30 67 16 107/65 100 Mechanical Ventilator 40 07/18/17 17:02 78 16 30 07/18/17 17:00 70 16 100/57 100 Mechanical Ventilator 40 07/18/17 16:30 82 16 115/59 100 Mechanical Ventilator 40 07/18/17 16:00 59 07/18/17 16:00 98.2 71 16 101/64 100 Mechanical Ventilator 40 07/18/17 16:00 40 07/18/17 15:30 63 16 123/54 100 Mechanical Ventilator 40 07/18/17 15:14 64 15 30 07/18/17 15:00 123/54 07/18/17 15:00 62 16 84/53 100 Mechanical Ventilator 40 07/18/17 14:30 80 16 122/70 100 Mechanical Ventilator 40 07/18/17 14:00 86 17 74/46 100 Mechanical Ventilator 40 07/18/17 13:30 73 16 85/52 100 Mechanical Ventilator 40 07/18/17 13:00 90 16 86/42 100 Mechanical Ventilator 40 07/18/17 12:57 67 15 30 07/18/17 12:30 64 16 82/47 100 Mechanical Ventilator 40 07/18/17 12:00 40 07/18/17 12:00 68 07/18/17 12:00 98.4 67 16 89/50 98 Mechanical Ventilator 40 07/18/17 12:00 80/44 07/18/17 11:30 73 16 84/43 100 Mechanical Ventilator 40 07/18/17 11:00 73 16 90/44 100 Mechanical Ventilator 40 07/18/17 10:55 78 15 30 07/18/17 10:30 68 16 96/52 100 Mechanical Ventilator 40 07/18/17 10:00 82 16 86/44 100 Mechanical Ventilator 40 07/18/17 09:30 77 16 98/45 98 Mechanical Ventilator 40 07/18/17 09:00 72 16 99/42 100 Mechanical Ventilator 40 07/18/17 09:00 99/42 07/18/17 08:48 78 15 40 07/18/17 08:30 75 16 84/48 100 Mechanical Ventilator 40 07/18/17 08:00 40 07/18/17 08:00 98.2 77 18 100/54 100 Mechanical Ventilator 40 07/18/17 08:00 74 07/18/17 08:00 84/55 07/18/17 07:30 75 17 89/54 100 Mechanical Ventilator 40 07/18/17 07:00 70 18 85/44 100 Mechanical Ventilator 40 07/18/17 07:00 81/44 07/18/17 07:00 64 16 40 07/18/17 06:30 69 17 81/44 100 Mechanical Ventilator 40 07/18/17 06:00 70 17 82/49 100 Mechanical Ventilator 40 07/18/17 06:00 82/49 07/18/17 05:30 70 17 89/46 100 Mechanical Ventilator 40 07/18/17 05:27 71 16 40 07/18/17 05:00 73 16 92/55 100 Mechanical Ventilator 40 07/18/17 05:00 90/50 07/18/17 04:30 80 16 96/55 100 Mechanical Ventilator 40 07/18/17 04:00 98.8 78 16 80/48 100 Mechanical Ventilator 40 07/18/17 04:00 80/48 07/18/17 04:00 40 07/18/17 04:00 65 07/18/17 04:00 65 07/18/17 03:30 78 16 76/48 100 Mechanical Ventilator 40 07/18/17 03:24 77 16 40 07/18/17 03:00 78 16 76/48 100 Mechanical Ventilator 40 07/18/17 03:00 76/48 07/18/17 02:30 80 16 74/49 100 Mechanical Ventilator 40 07/18/17 02:00 78 16 80/43 100 Mechanical Ventilator 40 07/18/17 02:00 80/43 07/18/17 01:30 78 16 88/50 100 Mechanical Ventilator 40 07/18/17 01:17 76 16 40 07/18/17 01:00 88/50 07/18/17 01:00 75 16 83/49 100 Mechanical Ventilator 40 07/18/17 00:30 74 16 77/46 100 Mechanical Ventilator 40 07/18/17 00:00 78 07/18/17 00:00 98.4 74 16 81/53 100 Mechanical Ventilator 40 07/18/17 00:00 81/53 07/17/17 23:30 89/47 07/17/17 23:30 73 16 79/47 100 Mechanical Ventilator 40 07/17/17 23:26 81 16 40 07/17/17 23:00 74 16 87/47 100 Mechanical Ventilator 40 07/17/17 22:30 73 16 81/45 100 Mechanical Ventilator 40 07/17/17 22:00 74 16 81/45 100 Mechanical Ventilator 40 07/17/17 22:00 81/45 07/17/17 21:30 80 16 92/48 100 Mechanical Ventilator 40 07/17/17 21:08 82 16 40 07/17/17 21:00 87 16 89/44 100 Mechanical Ventilator 40 07/17/17 21:00 89/44 07/17/17 20:30 71 16 98/51 100 Mechanical Ventilator 40 07/17/17 20:00 98.8 69 16 109/52 100 Mechanical Ventilator 40 07/17/17 20:00 65 07/17/17 20:00 40 07/17/17 20:00 92/51 07/17/17 19:30 68 18 92/51 100 Mechanical Ventilator 40 07/17/17 19:10 77 16 40 07/17/17 19:00 68 16 98/50 100 Mechanical Ventilator 50 07/17/17 18:30 78 16 109/60 100 Mechanical Ventilator 50 Intake and Output 07/18/17 07/19/17 18:59 06:59 Intake Total 1553.35 ml Output Total 1565 ml Balance -11.65 ml IV Total 1013.35 ml Tube Feeding 480 ml Other 60 ml Output Urine Total 1565 ml Stool Total 0 ml Laboratory Tests 07/18/17 03:35: White Blood Count 8.7, Red Blood Count 3.08L, Hemoglobin 10.5L, Hematocrit 29.8L , Mean Corpuscular Volume 97, Mean Corpuscular Hemoglobin 34.2H, Mean Corpuscular Hemoglobin Concent 35.2, Red Cell Distribution Width 12.4, Platelet Count 297, Mean Platelet Volume 5.1L, Neutrophils (%) (Auto) 52.6, Lymphocytes ( %) (Auto) 33.1, Monocytes (%) (Auto) 5.3, Eosinophils (%) (Auto) 7.9H, Basophils (%) (Auto) 1.0, Sodium Level 136, Potassium Level 4.0, Chloride Level 102, Carbon Dioxide Level 25, Anion Gap 9, Blood Urea Nitrogen 18, Creatinine 0.9, Estimat Glomerular Filtration Rate > 60, Glucose Level 96, Calcium Level 9.2, Phosphorus Level 3.4, Magnesium Level 2.2, Total Bilirubin 0.2, Aspartate Amino Transf (AST/SGOT) 17, Alanine Aminotransferase (ALT/SGPT) 12, Alkaline Phosphatase 67, Total Protein 6.9, Albumin 2.4L, Globulin 4.5, Albumin/Globulin Ratio 0.5L 07/18/17 08:38: Arterial Blood pH 7.510H, Arterial Blood Partial Pressure CO2 30.2L, Arterial Blood Partial Pressure O2 103.6H, Arterial Blood HCO3 23.9, Arterial Blood Oxygen Saturation 97.7, Arterial Blood Base Excess 1.6, Anthony Test Positive 07/18/17 18:00: Cortisol [Pending] Height (Feet): 5 Height (Inches): 9.00 Weight (Pounds): 170 Hill Hare M.D. Jul 18, 2017 18:29
[2017-07-18] MEDS: Dyna-Hex 2% Top Sol 2oz TOPIC SCH (20:29)
[2017-07-19] VITALS: BP 102/64
[2017-07-19 00:30] VITALS: BP 105/65
--- NOTE | 2017-07-23 11:19 | Discharge Summary ---
Discharge Summary Hospital Course Date of Admission Jun 23, 2017 at 10:33 Date of Discharge Jul 19, 2017 at 01:00 Admitting Diagnosis respiratory failure, schizophrenia HPI Dawson Oro is a 71 year old male who was admitted on Jun 23, 2017 at 10:33 for Respiratory Failure,Schizophrenia Hospital Course dc summary #[id number] Discharge Medications Continued Medications: Carbamazepine (Tegretol*) 200 Mg Tablet 200 MG PO FOUR TIMES A DAY, TAB Docusate Sodium* (Colace*) 100 Mg Capsule 100 MG ORAL DAILY, CAP Ipratropium/Albuterol Sulfate (DuoNeb 0.5-3(2.5)mg/3ml) 3 Ml Ampul.neb 3 ML HHN, EA Levetiracetam* (Levetiracetam*) 500 Mg Tablet 500 MG ORAL TWICE A DAY, #60 TAB 0 Refills Lorazepam* (Ativan*) 0.5 Mg Tablet 0.5 MG IVINF Q4HR for Agitation, TAB Methylprednisolone Sod Succ (Solu-Medrol) 500 Mg Vial 60 MG IV Q6HR, VIAL Morphine Sulfate (Morphine Sulfate) 4 Mg/1 Ml Syringe 2 MG IV Q4HR for For Pain, EA Olanzapine (Olanzapine) 20 Mg Tablet 20 MG ORAL BEDTIME, #30 TAB 0 Refills Ondansetron* (Zofran*) 4 Mg/2 Ml Vial 4 MG IV Q6H PRN for Nausea & Vomiting, VIAL Gtswzprzdnjp-Sxzf-Cjejujqa,Iso (Zosyn 3.375 Gm Pre Mix-Bag) 3.375 Gm/50 Ml Froz.piggy 3.375 GM IVPB EVERY 8 HOURS for 10 Days, BAG Temazepam (Temazepam*) 15 Mg Capsule 15 MG ORAL BEDTIME for Insomnia, #30 CAP 0 Refills Theophylline Anhydrous (Theophylline) 80 Mg/15 Ml Solution 100 MG PO Q12HR Vancomycin Hcl/D5w (Vancomycin-D5w 1 G/250 Ml) 1 Gm/250 Ml Plast..bag 1.25 GM IVPB Q24H for 10 Days, BAG Discharge Condition Upon Discharge: stable Discharge Disposition Patient was discharged to [facility] (63) Discharge Diagnoses: Junior (Vancfloraein)Kell NP Jul 23, 2017 11:19
--- NOTE | 2017-07-23 11:19 | Discharge Summary ---
Discharge Summary Hospital Course Date of Admission Jun 23, 2017 at 10:33 Date of Discharge Jul 19, 2017 at 01:00 Admitting Diagnosis respiratory failure, schizophrenia HPI Dawson Oro is a 71 year old male who was admitted on Jun 23, 2017 at 10:33 for Respiratory Failure,Schizophrenia Hospital Course dc summary #[id number] Discharge Medications Continued Medications: Carbamazepine (Tegretol*) 200 Mg Tablet 200 MG PO FOUR TIMES A DAY, TAB Docusate Sodium* (Colace*) 100 Mg Capsule 100 MG ORAL DAILY, CAP Ipratropium/Albuterol Sulfate (DuoNeb 0.5-3(2.5)mg/3ml) 3 Ml Ampul.neb 3 ML HHN, EA Levetiracetam* (Levetiracetam*) 500 Mg Tablet 500 MG ORAL TWICE A DAY, #60 TAB 0 Refills Lorazepam* (Ativan*) 0.5 Mg Tablet 0.5 MG IVINF Q4HR for Agitation, TAB Methylprednisolone Sod Succ (Solu-Medrol) 500 Mg Vial 60 MG IV Q6HR, VIAL Morphine Sulfate (Morphine Sulfate) 4 Mg/1 Ml Syringe 2 MG IV Q4HR for For Pain, EA Olanzapine (Olanzapine) 20 Mg Tablet 20 MG ORAL BEDTIME, #30 TAB 0 Refills Ondansetron* (Zofran*) 4 Mg/2 Ml Vial 4 MG IV Q6H PRN for Nausea & Vomiting, VIAL Vvrsfjhrmwxu-Pqdl-Choixnkq,Iso (Zosyn 3.375 Gm Pre Mix-Bag) 3.375 Gm/50 Ml Froz.piggy 3.375 GM IVPB EVERY 8 HOURS for 10 Days, BAG Temazepam (Temazepam*) 15 Mg Capsule 15 MG ORAL BEDTIME for Insomnia, #30 CAP 0 Refills Theophylline Anhydrous (Theophylline) 80 Mg/15 Ml Solution 100 MG PO Q12HR Vancomycin Hcl/D5w (Vancomycin-D5w 1 G/250 Ml) 1 Gm/250 Ml Plast..bag 1.25 GM IVPB Q24H for 10 Days, BAG Discharge Condition Upon Discharge: stable Discharge Disposition Patient was discharged to [facility] (63) Discharge Diagnoses: Junior (Vancfloraein)Kell NP Jul 23, 2017 11:19
--- NOTE | 2017-07-23 11:19 | Discharge Summary ---
Discharge Summary Hospital Course Date of Admission Jun 23, 2017 at 10:33 Date of Discharge Jul 19, 2017 at 01:00 Admitting Diagnosis respiratory failure, schizophrenia HPI Dawson Oro is a 71 year old male who was admitted on Jun 23, 2017 at 10:33 for Respiratory Failure,Schizophrenia Hospital Course dc summary #[id number] Discharge Medications Continued Medications: Carbamazepine (Tegretol*) 200 Mg Tablet 200 MG PO FOUR TIMES A DAY, TAB Docusate Sodium* (Colace*) 100 Mg Capsule 100 MG ORAL DAILY, CAP Ipratropium/Albuterol Sulfate (DuoNeb 0.5-3(2.5)mg/3ml) 3 Ml Ampul.neb 3 ML HHN, EA Levetiracetam* (Levetiracetam*) 500 Mg Tablet 500 MG ORAL TWICE A DAY, #60 TAB 0 Refills Lorazepam* (Ativan*) 0.5 Mg Tablet 0.5 MG IVINF Q4HR for Agitation, TAB Methylprednisolone Sod Succ (Solu-Medrol) 500 Mg Vial 60 MG IV Q6HR, VIAL Morphine Sulfate (Morphine Sulfate) 4 Mg/1 Ml Syringe 2 MG IV Q4HR for For Pain, EA Olanzapine (Olanzapine) 20 Mg Tablet 20 MG ORAL BEDTIME, #30 TAB 0 Refills Ondansetron* (Zofran*) 4 Mg/2 Ml Vial 4 MG IV Q6H PRN for Nausea & Vomiting, VIAL Uwjplcduobhv-Ysph-Nugyqhmp,Iso (Zosyn 3.375 Gm Pre Mix-Bag) 3.375 Gm/50 Ml Froz.piggy 3.375 GM IVPB EVERY 8 HOURS for 10 Days, BAG Temazepam (Temazepam*) 15 Mg Capsule 15 MG ORAL BEDTIME for Insomnia, #30 CAP 0 Refills Theophylline Anhydrous (Theophylline) 80 Mg/15 Ml Solution 100 MG PO Q12HR Vancomycin Hcl/D5w (Vancomycin-D5w 1 G/250 Ml) 1 Gm/250 Ml Plast..bag 1.25 GM IVPB Q24H for 10 Days, BAG Discharge Condition Upon Discharge: stable Discharge Disposition Patient was discharged to [facility] (63) Discharge Diagnoses: Junior (Vancfloraein)Kell NP Jul 23, 2017 11:19
--- NOTE | 2017-07-24 04:00 | Discharge Summary 2 SIG ---
DATE OF ADMISSION: 06/23/2017 DATE OF DISCHARGE: 07/19/2017 REASON FOR ADMISSION: 71-year-old male with past medical history significant for COPD, seizure disorder, pacemaker secondary to sick sinus syndrome, and paranoid schizophrenia, was brought from the custodial facility for evaluation due to the difficulty breathing. ABG revealed acute respiratory acidosis. White blood count was elevated - 15.1. Initial chest x-ray revealed evidence of possible pneumonia. The patient was placed on the BiPAP and admitted to [facility] with a diagnoses of acute hypercapnic respiratory failure, sepsis, and healthcare-associated pneumonia. HOSPITAL STAY: The patient was admitted to [facility]. The patient initially was on the BiPAP. Pulmonary toilet was provided. BiPAP settings were titrated as needed based on ABG. The patient was started on IV antibiotics. ID specialist closely followed up . Flatwork Ironer closely followed and directed the treatment for respiratory failure and COPD exacerbation. . The patient was on the IV steroids. The patient eventually required intubation. The patient self-extubated himself and required recurrent intubations. CXR with evidence of left lung collapse. The patient undergone bronchoscopy x2, which revealed mucus plug. ENT consult was requested for recurrent respiratory failure requiring intubation. The patient subsequently undergone tracheostomy placement on 07/18/2017. After the tracheostomy, the patient was followed up with ABG. ABG were stable on the current settings. Last chest x-ray prior to discharge revealed no radiographic evidence of complication after tracheostomy placement. Improved aeration of the left lung. The patient was not hemodynamically stable. Blood pressure was low. Machine Stitcher followed. The patient was started on dopamine drip on 07/10/2017 to keep mean arterial pressure above 65. Echocardiogram revealed preserved ejection fraction of 60% to 65%,right ventricular systolic pressure of 33, and no evidence of congestive heart failure exacerbation as per relish blender. Machine Stitcher closely followed. Per relish blender, pacemaker appeared to be functioning normally and captured when the heart rate goes below 60. Infectious Disease doctor closely followed. Sepsis was likely due to the healthcare-associated pneumonia and acute respiratory failure. Blood cultures were negative. The patient was on antibiotic as directed by ID specialist. Continue antibiotic at LTAC. Healthcare-associated pneumonia was likely due to the recurrent left lung collapse. Sputum culture initially showed Pseudomonas and repeated blood culture showed MRSA. The patient also has evidence of urinary tract infection with Providencia and Jacinda. Again, antibiotic to be continued and LTAC as per ID recommendation. Psychiatrist seen and evaluated the patient and diagnosed the patient with paranoid schizophrenia and encephalopathy. Patient was started on Zyprexa. Twister Tender closely followed. Electrolyte imbalances were addressed and corrected, nephrotoxics were avoided. The patient was on gentle IV hydration. Seizure precaution maintained. Keppra and Tegretol were continued. Anemia workup was consistent with anemia of chronic disease. Counts were monitored. DVT prophylaxis provided. The patient required transfer to long-term acute care facility for further management. Prior to discharge, no leukocytosis. Hemoglobin and hematocrit stayed at the baseline. BUN -18 and creatinine -0.9. Patient required [facility] ambulance with critical care nurse since the patient was still on dopamine drip and ventilator. FINAL DIAGNOSES: 1. Acute hypercapnic respiratory failure requiring BiPAP and subsequent intubation, 2. Recurrent respiratory failure requiring intubation. 3. Status post tracheostomy. 4. Septic shock. 5. Sepsis. 6. Healthcare-associated pneumonia. 7. Left lung collapse. 8/ Status post bronchoscopy x2. 9. Urinary tract infection with multidrug-resistant Providencia and Jacinda. 10. Chronic obstructive pulmonary disease exacerbation. 11. Encephalopathy. 12. Paranoid schizophrenia, possibly exacerbation. 13. Anemia of chronic disease. 14. Sick sinus syndrome status post dual-chamber pacemaker placement. 15. Seizure disorder. 16. Electrolyte imbalance. . DISCHARGE MEDICATIONS: See medication reconciliation list. DISCHARGE INSTRUCTIONS: The patient was transferred via [facility] ambulance to long-term acute care facility. Follow up with medical doctor and appeals examiner at the facility. [place] D.O. Kell Ron) N.PEliu DR: GA JOB#: [id number] CC: LUCIA
--- NOTE | 2017-07-24 04:00 | Discharge Summary 2 SIG ---
DATE OF ADMISSION: 06/23/2017 DATE OF DISCHARGE: 07/19/2017 REASON FOR ADMISSION: 71-year-old male with past medical history significant for COPD, seizure disorder, pacemaker secondary to sick sinus syndrome, and paranoid schizophrenia, [facility] due to the difficulty breathing. ABG revealed acute respiratory acidosis. White blood count was elevated - 15.1. Initial chest x-ray revealed evidence of possible pneumonia. The patient was placed on the BiPAP and admitted to [facility] with a diagnoses of acute hypercapnic respiratory failure, sepsis, and healthcare-associated pneumonia. HOSPITAL STAY: The patient was admitted to [facility]. The patient initially was on the BiPAP. Pulmonary toilet was provided. BiPAP settings were titrated as needed based on ABG. The patient was started on IV antibiotics. ID specialist closely followed up . Cia Agent closely followed and directed the treatment for respiratory failure and COPD exacerbation. . The patient was on the IV steroids. The patient eventually required intubation. The patient self-extubated himself and required recurrent intubations. CXR with evidence of left lung collapse. The patient undergone bronchoscopy x2, which revealed mucus plug. ENT consult was requested for recurrent respiratory failure requiring intubation. The patient subsequently undergone tracheostomy placement on 07/18/2017. After the tracheostomy, the patient was followed up with ABG. ABG were stable on the current settings. Last chest x-ray prior to discharge revealed no radiographic evidence of complication after tracheostomy placement. Improved aeration of the left lung. The patient was not hemodynamically stable. Blood pressure was low. Mobile Patrol Officer followed. The patient was started on dopamine drip on 07/10/2017 to keep mean arterial pressure above 65. Echocardiogram revealed preserved ejection fraction of 60% to 65%,right ventricular systolic pressure of 33, and no evidence of congestive heart failure exacerbation as per senior research fellow. Mobile Patrol Officer closely followed. Per senior research fellow, pacemaker appeared to be functioning normally and captured when the heart rate goes below 60. Infectious Disease doctor closely followed. Sepsis was likely due to the healthcare-associated pneumonia and acute respiratory failure. Blood cultures were negative. The patient was on antibiotic as directed by ID specialist. Continue antibiotic at LTAC. Healthcare-associated pneumonia was likely due to the recurrent left lung collapse. Sputum culture initially showed Pseudomonas and repeated blood culture showed MRSA. The patient also has evidence of urinary tract infection with Providencia and Jacinda. Again, antibiotic to be continued and LTAC as per ID recommendation. Psychiatrist seen and evaluated the patient and diagnosed the patient with paranoid schizophrenia and encephalopathy. Patient was started on Zyprexa. Sprinkler Repair Technician closely followed. Electrolyte imbalances were addressed and corrected, nephrotoxics were avoided. The patient was on gentle IV hydration. Seizure precaution maintained. Keppra and Tegretol were continued. Anemia workup was consistent with anemia of chronic disease. Counts were monitored. DVT prophylaxis provided. The patient required transfer to long-term acute care facility for further management. Prior to discharge, no leukocytosis. Hemoglobin and hematocrit stayed at the baseline. BUN -18 and creatinine -0.9. Patient required [facility] ambulance with critical care nurse since the patient was still on dopamine drip and ventilator. FINAL DIAGNOSES: 1. Acute hypercapnic respiratory failure requiring BiPAP and subsequent intubation, 2. Recurrent respiratory failure requiring intubation. 3. Status post tracheostomy. 4. Septic shock. 5. Sepsis. 6. Healthcare-associated pneumonia. 7. Left lung collapse. 8/ Status post bronchoscopy x2. 9. Urinary tract infection with multidrug-resistant Providencia and Jacinda. 10. Chronic obstructive pulmonary disease exacerbation. 11. Encephalopathy. 12. Paranoid schizophrenia, possibly exacerbation. 13. Anemia of chronic disease. 14. Sick sinus syndrome status post dual-chamber pacemaker placement. 15. Seizure disorder. 16. Electrolyte imbalance. . DISCHARGE MEDICATIONS: See medication reconciliation list. DISCHARGE INSTRUCTIONS: The patient was transferred via [facility] ambulance to long-term acute care facility. Follow up with medical doctor and dye house helper at the facility. Den Moreau D.O. Kell Ron) N.PEliu DR: GA JOB#: [id number] CC: LUCIA
--- NOTE | 2017-07-24 04:00 | Discharge Summary 2 SIG ---
DATE OF ADMISSION: 06/23/2017 DATE OF DISCHARGE: 07/19/2017 REASON FOR ADMISSION: 71-year-old male with past medical history significant for COPD, seizure disorder, pacemaker secondary to sick sinus syndrome, and paranoid schizophrenia, was [facility] the [facility] for evaluation due to the difficulty breathing. ABG revealed acute respiratory acidosis. White blood count was elevated - 15.1. Initial chest x-ray revealed evidence of possible pneumonia. The patient was placed on the BiPAP and admitted to [facility] with a diagnoses of acute hypercapnic respiratory failure, sepsis, and healthcare-associated pneumonia. HOSPITAL STAY: The patient was admitted to [facility]. The patient initially was on the BiPAP. Pulmonary toilet was provided. BiPAP settings were titrated as needed based on ABG. The patient was started on IV antibiotics. ID specialist closely followed up . Professor Of Environmental Studies closely followed and directed the treatment for respiratory failure and COPD exacerbation. . The patient was on the IV steroids. The patient eventually required intubation. The patient self-extubated himself and required recurrent intubations. CXR with evidence of left lung collapse. The patient undergone bronchoscopy x2, which revealed mucus plug. ENT consult was requested for recurrent respiratory failure requiring intubation. The patient subsequently undergone tracheostomy placement on 07/18/2017. After the tracheostomy, the patient was followed up with ABG. ABG were stable on the current settings. Last chest x-ray prior to discharge revealed no radiographic evidence of complication after tracheostomy placement. Improved aeration of the left lung. The patient was not hemodynamically stable. Blood pressure was low. Sporting Goods Sales Manager followed. The patient was started on dopamine drip on 07/10/2017 to keep mean arterial pressure above 65. Echocardiogram revealed preserved ejection fraction of 60% to 65%,right ventricular systolic pressure of 33, and no evidence of congestive heart failure exacerbation as per advanced practice psychiatric nurse. Sporting Goods Sales Manager closely followed. Per advanced practice psychiatric nurse, pacemaker appeared to be functioning normally and captured when the heart rate goes below 60. Infectious Disease doctor closely followed. Sepsis was likely due to the healthcare-associated pneumonia and acute respiratory failure. Blood cultures were negative. The patient was on antibiotic as directed by ID specialist. Continue antibiotic at LTAC. Healthcare-associated pneumonia was likely due to the recurrent left lung collapse. Sputum culture initially showed Pseudomonas and repeated blood culture showed MRSA. The patient also has evidence of urinary tract infection with Providencia and Jacinda. Again, antibiotic to be continued and LTAC as per ID recommendation. Psychiatrist seen and evaluated the patient and diagnosed the patient with paranoid schizophrenia and encephalopathy. Patient was started on Zyprexa. Manager Corporate Strategy closely followed. Electrolyte imbalances were addressed and corrected, nephrotoxics were avoided. The patient was on gentle IV hydration. Seizure precaution maintained. Keppra and Tegretol were continued. Anemia workup was consistent with anemia of chronic disease. Counts were monitored. DVT prophylaxis provided. The patient required transfer to long-term acute care facility for further management. Prior to discharge, no leukocytosis. Hemoglobin and hematocrit stayed at the baseline. BUN -18 and creatinine -0.9. Patient required [facility] ambulance with critical care nurse since the patient was still on dopamine drip and ventilator. FINAL DIAGNOSES: 1. Acute hypercapnic respiratory failure requiring BiPAP and subsequent intubation, 2. Recurrent respiratory failure requiring intubation. 3. Status post tracheostomy. 4. Septic shock. 5. Sepsis. 6. Healthcare-associated pneumonia. 7. Left lung collapse. 8/ Status post bronchoscopy x2. 9. Urinary tract infection with multidrug-resistant Providencia and Jacinda. 10. Chronic obstructive pulmonary disease exacerbation. 11. Encephalopathy. 12. Paranoid schizophrenia, possibly exacerbation. 13. Anemia of chronic disease. 14. Sick sinus syndrome status post dual-chamber pacemaker placement. 15. Seizure disorder. 16. Electrolyte imbalance. . DISCHARGE MEDICATIONS: See medication reconciliation list. DISCHARGE INSTRUCTIONS: The patient was transferred via [facility] ambulance to long-term acute care facility. Follow up with medical doctor and director strategy at the facility. Den Moreau D.O. Kell Ron) N.PEliu DR: GA JOB#: [id number] CC: LUCIA
== END 2017-07-19 01:00 | DRG 4 ==
LOC: EDBD 09:46 → EMR 10:27 → 2W 10:33 → EDBEDREQ 10:48 → 4W 06-25 13:50 → 2W 06-28 11:47 → ICU 07-01 23:09
PROC: 5A09457 Assistance with Respiratory Ventilation, 24-96 Consecutive Hours, Continuous Positive Airway Pressure (ICD-10-PCS; 2017-06-23)
PROC: 0BH17EZ Insertion of Endotracheal Airway into Trachea, Via Natural or Artificial Opening (ICD-10-PCS; 2017-07-03)
PROC: 5A1955Z Respiratory Ventilation, Greater than 96 Consecutive Hours (ICD-10-PCS; 2017-07-03)
PROC: 0BJ08ZZ Inspection of Tracheobronchial Tree, Via Natural or Artificial Opening Endoscopic (ICD-10-PCS; 2017-07-08)
PROC: 0BC88ZZ Extirpation of Matter from Left Upper Lobe Bronchus, Via Natural or Artificial Opening Endoscopic (ICD-10-PCS; 2017-07-13)
PROC: B54MZZA Ultrasonography of Right Upper Extremity Veins, Guidance (ICD-10-PCS; principal; 2017-07-17 14:00)
PROC: 05HD33Z Insertion of Infusion Device into Right Cephalic Vein, Percutaneous Approach (ICD-10-PCS; principal; 2017-07-17 14:00)
PROC: 0B110F4 Bypass Trachea to Cutaneous with Tracheostomy Device, Open Approach (ICD-10-PCS; principal; 2017-07-17 14:00)
DX: A41.9 Sepsis, unspecified organism (principal); R65.21 Severe sepsis with septic shock; G93.40 Encephalopathy, unspecified; J15.1 Pneumonia due to Pseudomonas; J15.212 Pneumonia due to Methicillin resistant Staphylococcus aureus; T17.590A Other foreign object in bronchus causing asphyxiation, initial encounter; J96.02 Acute respiratory failure with hypercapnia; J98.11 Atelectasis; B37.49 Other urogenital candidiasis; J44.1 Chronic obstructive pulmonary disease with (acute) exacerbation; F20.0 Paranoid schizophrenia; F03.90 Unspecified dementia, unspecified severity, without behavioral disturbance, psychotic disturbance, mood disturbance, and anxiety; E87.6 Hypokalemia; E83.42 Hypomagnesemia; F31.9 Bipolar disorder, unspecified; N18.9 Chronic kidney disease, unspecified; G40.909 Epilepsy, unspecified, not intractable, without status epilepticus; B96.89 Other specified bacterial agents as the cause of diseases classified elsewhere; D63.8 Anemia in other chronic diseases classified elsewhere; Y95 Nosocomial condition; Z16.21 Resistance to vancomycin; Z16.24 Resistance to multiple antibiotics; Z95.0 Presence of cardiac pacemaker; Z78.1 Physical restraint status
CPT/HCPCS: 31645; 36415; 36569; 36600; 71010; 71250; 74000; 76937; 80048; 80053; 80202; 80299; 81001; 81003; 82044; 82270; 82378; 82533; 82550; 82553; 82570; 82607; 82746; 82803; 82962; 83540; 83550; 83605; 83615; 83735; 83880; 84100; 84300; 84478; 84484; 85007; 85025; 85044; 85060; 85610; 85651; 85730; 86140; 87040; 87070; 87081; 87086; 87181; 87205; 93005; 93306; 94002; 94003; 94150; 94640; 94660; 94664; 94760; 97803; J2250; J7620; J8499

== ENCOUNTER 2017-12-17 18:04 | Inpatient (IN) | payer MEDICARE, MEDICAID ==
[~2017-12-17] VITALS: Ht 190.5 cm; Wt 104.8 kg
[~2017-12-17 18:04] MED LIST: ACETYLCYST200 MG/1 M HHN; ATIVAN0.5 MG IVINF; ATIVAN1 MG ORAL; CARBAMAZEP200 MG/10 ORAL; COLACE100 MG ORAL; DEPAKENE250 MG/5 M PO; DULCOLAX10 MG RC; DUONEB 0.5-3(2.53 ML HHN; FLEET ENEMA133 ML RECTAL; GERI-LANTA LIQ355 ML PO; LACTULOSE20 GM/301 ORAL; LEVETIRACETAM500 MG ORAL; LOVENOX10 M4 SUBQ; MIDODRINE HCL5 MG ORAL; MILK OF MA400 MG/51 ORAL; MORPHINE SU4 MG/1 ML IV; MULTIVITAMINS1 EAC2 ORAL; NITROGLYCERIN0.4 MG SL; OLANZAPINE20 MG ORAL; PROTONIX40 MG ORAL; QUETIAPINE FUM200 MG ORAL; SOLU-MEDROL500 MG IV; TEGRETOL100 MG/5 M PO; TEGRETOL200 MG PO; TEMAZEPAM15 MG ORAL; THEOPHYLLI80 MG/151 PO; TYLENOL EXTRA500 MG ORAL; VANCOMYCIN1 GM/2502 IVPB; VITAMIN C500 M1 ORAL; ZOFRAN 4 MG4 MG/2 ML IV; ZOSYN 3.373.375 GM/1 IVPB; ZYPREXA5 MG ORAL
[2017-12-17 18:35] VITALS: BP 119/71
[2017-12-17 20:10] LABS: BASOPHILS % (AUTO) 0.9 % (0.0-2.0); HEMATOCRIT 32.8 % (42.0-52.0); LYMPHOCYTES % (AUTO) 16.5 % (20.0-45.0); MEAN CORPUSCULAR VOLUME 90 FL (80-99); NEUTROPHILS % (AUTO) 73.7 % (45.0-75.0); PLATELET COUNT 247 K/UL (150-450); RED BLOOD COUNT 3.63 M/UL (4.70-6.10); WHITE BLOOD COUNT 10.5 K/UL (4.8-10.8)
[2017-12-17 20:20] LABS: ANION GAP 5 mmol/L (5-15); BLOOD UREA NITROGEN 49 mg/dL (7-18); CALCIUM 9.6 MG/DL (8.5-10.1); CARBON DIOXIDE 33 MMOL/L (21-32); CHLORIDE 99 MMOL/L (98-107); POTASSIUM 3.9 MMOL/L (3.5-5.1); SODIUM 137 MMOL/L (136-145)
[2017-12-17 20:33] LABS: ALANINE AMINOTRANSFERASE 18 U/L (12-78); ALBUMIN 3.1 G/DL (3.4-5.0); ALBUMIN/GLOBULIN RATIO 0.5 (1.0-2.7); ALKALINE PHOSPHATASE 144 U/L (46-116); ASPARTATE AMINO TRANSFERASE 22 U/L (15-37); BILIRUBIN,TOTAL 0.2 MG/DL (0.2-1.0); CKMB < 0.5 NG/ML (0.0-3.6); CREATINE KINASE 106 U/L (26-308)
[2017-12-17] MEDS ORDERED: Morphine Sulfate 4mg/ml Inj IVP PRN (21:00)
[2017-12-17] MEDS ORDERED: Miralax 17gm pkt ORAL PRN (21:00)
[2017-12-17] MEDS ORDERED: Albuterol/Ipratropium 3ml neb HHN PRN (21:00)
[2017-12-17] MEDS ORDERED: LORazepam Inj 2mg/ml 1ml IV PRN (21:00)
[2017-12-17 21:11] VITALS: BP 128/88
[2017-12-17 22:15] VITALS: BP 115/68
--- NOTE | 2017-12-17 22:35 | Emergency Room Report ---
History of Present Illness General Chief Complaint: General Complaint Source: Patient, EMS Present Illness HPI Patient's 72-year-old male brought in by EMS after increased blood in stool. Patient reportedly had been the noted to be G-tube dependent. He was noted to have occult blood which was positive. Patient had not been vomiting. The patient had been noted be somewhat more weak and usual. History is markedly limited by patient's mental status. The patient was noted to be trach and vent dependent Allergies: Coded Allergies: CHLORPROMAZINE (Verified Allergy, Unknown, 06/23/17) ERYTHROMYCIN BASE (Verified Allergy, Unknown, 06/23/17) Uncoded Allergies: TAPE (Allergy, Unknown, 06/23/17) Patient History Past Medical History: see triage record Reviewed Nursing Documentation: PMH: Agreed; PSxH: Agreed Nursing Documentation-PMH Hx Cardiac Problems: Yes - pacemaker, epilepsy,dysphagia,sepsis w/ septic shock , anemia Hx COPD: Yes - trache/vent, pneumonia, resp failure Hx Cancer: Yes - CELLULITIS Hx Gastrointestinal Problems: No - ANEMIA Hx Dialysis: No - CKD Hx Neurological Problems: Yes Hx Seizures: Yes Review of Systems All Other Systems: limited - by mental status Physical Exam Vital Signs Date Time Temp Pulse Resp B/P (MAP) Pulse Ox O2 Delivery O2 Flow Rate FiO2 12/17/17 18:01 98.9 75 18 119/71 99 Trach Collar 35 99.0 General Appearance: alert, Chronically Ill ENT: hearing grossly normal, uvula midline Neck: limited range of motion, tracheotomy Respiratory: lungs clear, normal breath sounds, no respiratory distress Cardiovascular #1: regular rate, rhythm, edema Gastrointestinal: other - gtube presenet Musculoskeletal: normal inspection Neurologic: alert, responsive, porcelain mixer III-XII nml as tested Skin: normal inspection, normal color Medical Decision Making Diagnostic Impression: Primary Impression: Tracheostomy present Additional Impressions: Generalized weakness Feeding by G-tube Elevated BUN Anemia ER Course .Patient presented for generalized weakness. Differential diagnosis included was not limited to anemia, urinary tract infection, electrolyte abnormality, hypothyroidism, myocardial infarction, myasthenia gravis, dehydration, among others. Because of complexity of patient's case laboratory testing and imaging studies were ordered. Laboratory studies are normal pH. The patient noted be moderately anemic as well as having elevated BUNs consistent with either dehydration or possible GI bleed. Given the patient's prior history of positive occult blood the patient be admitted for further evaluation and treatment. Dr. Quinton Humphries was contacted for inpatient management Labs Test 12/17/17 19:21 12/17/17 19:25 White Blood Count 10.5 K/UL (4.8-10.8) Red Blood Count 3.63 M/UL (4.70-6.10) Hemoglobin 11.0 G/DL (14.2-18.0) Hematocrit 32.8 % (42.0-52.0) Mean Corpuscular Volume 90 FL (80-99) Mean Corpuscular Hemoglobin 30.3 PG (27.0-31.0) Mean Corpuscular Hemoglobin Concent 33.5 G/DL (32.0-36.0) Red Cell Distribution Width 15.0 % (11.6-14.8) Platelet Count 247 K/UL (150-450) Mean Platelet Volume 6.0 FL (6.5-10.1) Neutrophils (%) (Auto) 73.7 % (45.0-75.0) Lymphocytes (%) (Auto) 16.5 % (20.0-45.0) Monocytes (%) (Auto) 5.0 % (1.0-10.0) Eosinophils (%) (Auto) 4.0 % (0.0-3.0) Basophils (%) (Auto) 0.9 % (0.0-2.0) Sodium Level 137 MMOL/L (136-145) Potassium Level 3.9 MMOL/L (3.5-5.1) Chloride Level 99 MMOL/L (98-107) Carbon Dioxide Level 33 MMOL/L (21-32) Anion Gap 5 mmol/L (5-15) Blood Urea Nitrogen 49 mg/dL (7-18) Creatinine 1.0 MG/DL (0.55-1.30) Estimat Glomerular Filtration Rate > 60 mL/min (>60) Glucose Level 101 MG/DL (74-106) Lactic Acid Level 1.00 mmol/L (0.66-2.22) Calcium Level 9.6 MG/DL (8.5-10.1) Total Bilirubin 0.2 MG/DL (0.2-1.0) Aspartate Amino Transf (AST/SGOT) 22 U/L (15-37) Alanine Aminotransferase (ALT/SGPT) 18 U/L (12-78) Alkaline Phosphatase 144 U/L (46-116) Total Creatine Kinase 106 U/L (26-308) Creatine Kinase MB < 0.5 NG/ML (0.0-3.6) Creatine Kinase MB Relative Index 0.4 Troponin I 0.000 ng/mL (0.000-0.056) Total Protein 9.1 G/DL (6.4-8.2) Albumin 3.1 G/DL (3.4-5.0) Globulin 6.0 g/dL Albumin/Globulin Ratio 0.5 (1.0-2.7) Arterial Blood pH 7.412 (7.350-7.450) Arterial Blood Partial Pressure CO2 47.2 mmHg (35.0-45.0) Arterial Blood Partial Pressure O2 129.6 mmHg (75.0-100.0) Arterial Blood HCO3 29.4 mmol/L (22.0-26.0) Arterial Blood Oxygen Saturation 98.3 % (92.0-98.0) Arterial Blood Base Excess 4.1 Anthony Test Positive Last Vital Signs Date Time Temp Pulse Resp B/P (MAP) Pulse Ox O2 Delivery O2 Flow Rate FiO2 12/17/17 22:10 99.0 69 14 128/88 100 Mechanical Ventilator 35 99.0 Status: improved Disposition: ADMITTED INPATIENT Condition: Serious Referrals: QUINTON HUMPHRIES (PCP) Guero Brewer Dec 17, 2017 22:35
[2017-12-17] MEDS ORDERED: Vancomycin 1.5gm/D5W 250ml 250 ML IVPB SCH (23:00)
[2017-12-17] MEDS ORDERED: Vancomycin 1 GM in D5W 275 ML IV SCH (23:00)
[2017-12-18] VITALS: BP 133/74
[2017-12-18 05:19] LABS: BASOPHILS % (AUTO) 0.9 % (0.0-2.0); EOSINOPHILS % (AUTO) 4.1 % (0.0-3.0); HEMOGLOBIN 10.1 G/DL (14.2-18.0); LYMPHOCYTES % (AUTO) 19.8 % (20.0-45.0); MEAN CORPUSCULAR VOLUME 91 FL (80-99); MONOCYTES % (AUTO) 5.5 % (1.0-10.0); NEUTROPHILS % (AUTO) 69.6 % (45.0-75.0); PLATELET COUNT 235 K/UL (150-450); RED BLOOD COUNT 3.42 M/UL (4.70-6.10); RED CELL DISTRIBUTION WIDTH 15.2 % (11.6-14.8); WHITE BLOOD COUNT 9.7 K/UL (4.8-10.8)
[2017-12-18 05:33] LABS: ALBUMIN 2.8 G/DL (3.4-5.0); ANION GAP 4 mmol/L (5-15); BLOOD UREA NITROGEN 42 mg/dL (7-18); CALCIUM 9.4 MG/DL (8.5-10.1); CARBON DIOXIDE 32 MMOL/L (21-32); CHLORIDE 100 MMOL/L (98-107); PHOSPHORUS 4.8 MG/DL (2.5-4.9); POTASSIUM 4.1 MMOL/L (3.5-5.1); SODIUM 135 MMOL/L (136-145)
[2017-12-18 05:54] LABS: % IRON SATURATION 22 % (15-50); IRON 47 ug/dL (50-175); TOTAL IRON BINDING CAPACITY 215 ug/dL (250-450)
[2017-12-18 08:00] VITALS: BP 116/70
[2017-12-18] MEDS ORDERED: QUEtiapine 200mg tab ORAL SCH (09:00)
[2017-12-18] MEDS: carBAMazepine 200mg tab GT SCH ×4 (09:16→20:50)
[2017-12-18] MEDS ORDERED: Vancomycin 1gm in Dextrose 275ml IVPB SCH (10:00)
--- NOTE | 2017-12-18 10:55 | Diagnostic Imaging Report ---
Indication: Dyspnea Comparison: July 18, 2017 A single view chest radiograph was obtained. Findings: Mild interstitial edema suspected with slightly prominent pulmonary vascularity. Heart size is relatively normal. Study limited by rotation. There is a hiatal hernia again noted. Tracheostomy and pacemaker noted. IMPRESSION: Probable mild interstitial edema. Correlate clinically
--- NOTE | 2017-12-18 11:26 | Consultation ---
History of Present Illness General Date patient seen: Dec 18, 2017 Chief Complaint: General Complaint Reason for Consultation: vent management Present Illness HPI 72-year-old male with hx of Chronic Trach/vent/Peg brought in by EMS with CC of blood in stool. Patient had not been vomiting. Pt has been asymptomatic. He is awake and comfortable. Allergies: Coded Allergies: CHLORPROMAZINE (Verified Allergy, Unknown, 06/23/17) ERYTHROMYCIN BASE (Verified Allergy, Unknown, 06/23/17) Uncoded Allergies: TAPE (Allergy, Unknown, 06/23/17) Medication History Scheduled Ascorbic Acid* (Vitamin C*), 500 MG ORAL DAILY, (Reported) Carbamazepine (Tegretol*), 200 MG PO FOUR TIMES A DAY, (Reported) Carbamazepine (Carbamazepine), 200 MG ORAL FOUR TIMES A DAY, (Reported) Carbamazepine (Tegretol), 100 MG PO QID, (Reported) Docusate Sodium* (Colace*), 100 MG ORAL DAILY, (Reported) Enoxaparin* (Lovenox*), 40 MG SUBQ DAILY, (Reported) Ipratropium/Albuterol Sulfate (DuoNeb 0.5-3(2.5)mg/3ml), 3 ML HHN Q4HR, ( Reported) Lactulose (Lactulose*), 30 ML ORAL Q6HR, (Reported) Levetiracetam* (Levetiracetam*), 500 MG ORAL TWICE A DAY, (Reported) Lorazepam* (Ativan*), 0.5 MG IVINF Q4HR, (Reported) Magnesium Hydroxide* (Milk Of Magnesia*), 30 ML ORAL DAILY, (Reported) Methylprednisolone Sod Succ (Solu-Medrol), 60 MG IV Q6HR, (Reported) Midodrine* (Proamatine*), 5 MG ORAL BID, (Reported) Morphine Sulfate (Morphine Sulfate), 2 MG IV Q4HR, (Reported) Multivitamins* (Multivitamins*), 1 TAB ORAL DAILY, (Reported) Na Phos,M-B/Na Phos,Di-Ba* (Fleet Enema*), 133 ML RECTAL DAILY, (Reported) Olanzapine (Olanzapine), 20 MG ORAL BEDTIME, (Reported) Olanzapine* (Zyprexa*), 15 MG ORAL DAILY, (Reported) Pantoprazole* (Protonix*), 40 MG ORAL DAILY, (Reported) Eekxlkbsavpf-Pujv-Eyrykohv,Iso (Zosyn 3.375 Gm Pre Mix-Bag), 3.375 GM IVPB EVERY 8 HOURS, (Reported) Quetiapine Fumarate* (Seroquel*), 200 MG ORAL DAILY, (Reported) Temazepam (Temazepam*), 15 MG ORAL BEDTIME, (Reported) Theophylline Anhydrous (Theophylline), 100 MG PO Q12HR, (Reported) Valproate Sodium (Depakene), 250 MG PO BID, (Reported) Vancomycin Hcl/D5w (Vancomycin-D5w 1 G/250 Ml), 1.25 GM IVPB Q24H, (Reported) Scheduled PRN Acetaminophen* (Tylenol Extra Strength*), 500 MG ORAL Q6H PRN for Mild Pain/ Temp > 100.5, (Reported) Acetylcysteine* (Acetylcysteine*), 200 MG HHN Q6H PRN for Shortness of breath, ( Reported) Lorazepam* (Ativan*), 1 MG ORAL Q6HR PRN for For Anxiety, (Reported) Nitroglycerin (Nitroglycerin), 0.4 MG SL Q5Min x3 doses PRN for Chest pain, ( Reported) Ondansetron* (Zofran*), 4 MG IV Q6H PRN for Nausea & Vomiting, (Reported) Miscellaneous Medications Bisacodyl (Dulcolax), 10 MG RC, (Reported) Ipratropium/Albuterol Sulfate (DuoNeb 0.5-3(2.5)mg/3ml), 3 ML HHN, (Reported) Mag Hydrox/Al Hydrox/Simeth (Shirley-Lanta Liquid), 355 ML PO, (Reported) Patient History Healthcare decision maker Charo Edmondson Resuscitation status Full Code Advanced Directive on File Past Medical/Surgical History Past Medical/Surgical History: (1) Tracheostomy present (2) History of pacemaker (3) Limited mobility (4) Schizophrenia (5) Feeding by G-tube Review of Systems All Other Systems: negative except mentioned in HPI Physical Exam General Appearance: WD/WN Lines, tubes and drains: trach, gtube HEENT: normocephalic, atraumatic Neck: non-tender, normal alignment Respiratory/Chest: chest wall non-tender, lungs clear, no respiratory distress Breasts: no masses Genitourinary/Rectal: normal genital exam, normal prostate exam Skin Exam: normal pigmentation Neurologic: no motor/sensory deficits Lymphatic: anterior cervical Last 24 Hour Vital Signs Date Time Temp Pulse Resp B/P (MAP) Pulse Ox O2 Delivery O2 Flow Rate FiO2 12/18/17 08:58 84 14 30 12/18/17 08:00 30 12/18/17 08:00 66 12/18/17 06:38 82 14 30 12/18/17 06:18 30 12/18/17 05:29 85 14 35 12/18/17 04:29 30 12/18/17 04:00 65 12/18/17 03:33 81 16 35 12/18/17 02:04 79 12 35 12/18/17 00:00 82 14 35 12/18/17 00:00 98.0 77 15 133/74 98 Mechanical Ventilator 30 98.0 12/18/17 00:00 65 12/17/17 22:15 98.4 68 16 115/68 98 Mechanical Ventilator 30 98.4 12/17/17 22:10 99.0 69 14 128/88 100 Mechanical Ventilator 35 99.0 12/17/17 21:40 85 14 35 12/17/17 21:11 99.0 69 23 128/88 100 Mechanical Ventilator 99.0 12/17/17 19:30 89 18 35 12/17/17 18:35 99.0 23 119/71 99 Trach Collar 35 99.0 12/17/17 18:13 84 23 35 12/17/17 18:01 98.9 75 18 119/71 99 Trach Collar 35 99.0 Intake and Output 12/17/17 12/18/17 19:00 07:00 Intake Total 0 ml 575 ml Output Total 150 ml Balance 0 ml 425 ml Intake Oral 0 ml 0 ml Free Water 50 ml IV Total 525 ml Output Urine Total 150 ml # Bowel Movements 2 Laboratory Tests Test 12/17/17 19:21 12/17/17 19:25 12/18/17 04:40 White Blood Count 10.5 K/UL (4.8-10.8) 9.7 K/UL (4.8-10.8) Red Blood Count 3.63 M/UL (4.70-6.10) L 3.42 M/UL (4.70-6.10) L Hemoglobin 11.0 G/DL (14.2-18.0) L 10.1 G/DL (14.2-18.0) L Hematocrit 32.8 % (42.0-52.0) L 31.0 % (42.0-52.0) L Mean Corpuscular Volume 90 FL (80-99) 91 FL (80-99) Mean Corpuscular Hemoglobin 30.3 PG (27.0-31.0) 29.4 PG (27.0-31.0) Mean Corpuscular Hemoglobin Concent 33.5 G/DL (32.0-36.0) 32.5 G/DL (32.0-36.0) Red Cell Distribution Width 15.0 % (11.6-14.8) H 15.2 % (11.6-14.8) H Platelet Count 247 K/UL (150-450) 235 K/UL (150-450) Mean Platelet Volume 6.0 FL (6.5-10.1) L 6.2 FL (6.5-10.1) L Neutrophils (%) (Auto) 73.7 % (45.0-75.0) 69.6 % (45.0-75.0) Lymphocytes (%) (Auto) 16.5 % (20.0-45.0) L 19.8 % (20.0-45.0) L Monocytes (%) (Auto) 5.0 % (1.0-10.0) 5.5 % (1.0-10.0) Eosinophils (%) (Auto) 4.0 % (0.0-3.0) H 4.1 % (0.0-3.0) H Basophils (%) (Auto) 0.9 % (0.0-2.0) 0.9 % (0.0-2.0) Sodium Level 137 MMOL/L (136-145) 135 MMOL/L (136-145) L Potassium Level 3.9 MMOL/L (3.5-5.1) 4.1 MMOL/L (3.5-5.1) Chloride Level 99 MMOL/L (98-107) 100 MMOL/L (98-107) Carbon Dioxide Level 33 MMOL/L (21-32) H 32 MMOL/L (21-32) Anion Gap 5 mmol/L (5-15) 4 mmol/L (5-15) L Blood Urea Nitrogen 49 mg/dL (7-18) H 42 mg/dL (7-18) H Creatinine 1.0 MG/DL (0.55-1.30) 1.0 MG/DL (0.55-1.30) Estimat Glomerular Filtration Rate > 60 mL/min (>60) > 60 mL/min (>60) Glucose Level 101 MG/DL (74-106) 95 MG/DL (74-106) Lactic Acid Level 1.00 mmol/L (0.66-2.22) Calcium Level 9.6 MG/DL (8.5-10.1) 9.4 MG/DL (8.5-10.1) Total Bilirubin 0.2 MG/DL (0.2-1.0) Aspartate Amino Transf (AST/SGOT) 22 U/L (15-37) Alanine Aminotransferase (ALT/SGPT) 18 U/L (12-78) Alkaline Phosphatase 144 U/L (46-116) H Total Creatine Kinase 106 U/L (26-308) Creatine Kinase MB < 0.5 NG/ML (0.0-3.6) Creatine Kinase MB Relative Index 0.4 Troponin I 0.000 ng/mL (0.000-0.056) Total Protein 9.1 G/DL (6.4-8.2) H Albumin 3.1 G/DL (3.4-5.0) L 2.8 G/DL (3.4-5.0) L Globulin 6.0 g/dL Albumin/Globulin Ratio 0.5 (1.0-2.7) L Arterial Blood pH 7.412 (7.350-7.450) Arterial Blood Partial Pressure CO2 47.2 mmHg (35.0-45.0) H Arterial Blood Partial Pressure O2 129.6 mmHg (75.0-100.0) H Arterial Blood HCO3 29.4 mmol/L (22.0-26.0) H Arterial Blood Oxygen Saturation 98.3 % (92.0-98.0) H Arterial Blood Base Excess 4.1 Anthony Test Positive Phosphorus Level 4.8 MG/DL (2.5-4.9) Iron Level 47 ug/dL (50-175) L Total Iron Binding Capacity 215 ug/dL (250-450) L Percent Iron Saturation 22 % (15-50) Unsaturated Iron Binding 168 ug/dL (112-346) Height (Feet): 6 Height (Inches): 3.00 Weight (Pounds): 209 Medications Current Medications Medications (Trade) Dose Ordered Sig/Karen Route PRN Reason Start Time Stop Time Status Last Admin Dose Admin Acetaminophen (Tylenol) 650 mg Q4H PRN ORAL FEVER 12/17/17 21:00 01/16/18 20:59 Albuterol/ Ipratropium (Albuterol/ Ipratropium) 3 ml Q4H PRN HHN Shortness of Breath 12/17/17 21:00 12/22/17 20:59 Carbamazepine (TEGretol) 200 mg FOUR TIMES A DAY GT 12/18/17 09:00 01/17/18 08:59 12/18/17 09:16 Dextrose (Dextrose 50%) 25 ml STAT PRN IV HYPOGLYCEMIA 12/18/17 08:45 01/17/18 08:44 Dextrose (Dextrose 50%) 50 ml STAT PRN IV Hypoglycemia 12/18/17 09:30 01/17/18 09:29 Insulin Aspart (NovoLOG) EVERY 6 HOURS SUBQ 12/18/17 12:00 01/17/18 11:59 Levetiracetam (Keppra) 500 mg TWICE A DAY ORAL 12/17/17 22:00 01/16/18 21:59 12/18/17 09:16 Lorazepam (Ativan 2mg/ml 1ml) 2 mg Q2H PRN IV For Anxiety 12/17/17 21:00 12/24/17 20:59 Midodrine (Pro-Amatine) 5 mg BID GT 12/18/17 09:00 01/17/18 08:59 12/18/17 09:16 Morphine Sulfate (Morphine Sulfate) 4 mg Q4H PRN IVP Severe Pain (Pain Scale 7-10) 12/17/17 21:00 12/24/17 20:59 Olanzapine (ZyPREXA) 15 mg DAILY GT 12/18/17 09:00 01/17/18 08:59 12/18/17 09:16 Ondansetron HCl (Zofran) 4 mg Q6H PRN IVP Nausea & Vomiting 12/17/17 21:00 01/16/18 20:59 Pantoprazole (Protonix) 40 mg DAILY ORAL 12/19/17 09:00 01/18/18 08:59 Polyethylene Glycol (Miralax) 17 gm DAILYPRN PRN ORAL Constipation 12/17/17 21:00 01/16/18 20:59 Quetiapine Fumarate (SEROquel) 200 mg BEDTIME ORAL 12/18/17 21:00 01/17/18 08:59 Sodium Chloride 1,000 ml @ 75 mls/hr [id number] IV 12/17/17 22:00 01/16/18 21:59 12/17/17 23:16 Vancomycin HCl (Vanco rx to dose) 1 ea DAILYPRN PRN MISC RX TO DOSE PROTOCOL 12/17/17 22:15 01/16/18 22:14 Vancomycin HCl 1 gm/Dextrose 275 ml @ 183.708 mls/hr Q8HR@0200,1000,1800 IVPB 12/18/17 10:00 12/23/17 09:59 12/18/17 09:15 Assessment/Plan Problem List: (1) Chronic respiratory failure ICD Codes: J96.10 - Chronic respiratory failure, unspecified whether with hypoxia or hypercapnia SNOMED: 03907263 (2) Lower GI bleeding ICD Codes: K92.2 - Gastrointestinal hemorrhage, unspecified SNOMED: 93493320 (3) Anemia ICD Codes: D64.9 - Anemia, unspecified SNOMED: 002757567 (4) Generalized weakness ICD Codes: R53.1 - Weakness SNOMED: 17003660 (5) History of pacemaker ICD Codes: Z95.0 - Presence of cardiac pacemaker SNOMED: 536652840 (6) Feeding by G-tube ICD Codes: Z93.1 - Gastrostomy status SNOMED: 898316086, 900581289 (7) Tracheostomy present ICD Codes: Z93.0 - Tracheostomy status SNOMED: 682341512 (8) Schizophrenia ICD Codes: F20.9 - Schizophrenia, unspecified SNOMED: 64791188 Respiratory: monitor respiratory rate, adjust FIO2 Cardiac: continue to monitor HR/BP Renal: F/U I&O, keep IV fluid Gastrointestinal: continue feedings/current rate Hematologic: monitor H/H, transfuse if hgb<8.5 Neurologic: PRN Morphine, keep patient comfortable Affect: PRN ativan Prophylaxis: Protonix Notes Reviewed: cardio Discussed with: nurses, consultants, case specialist Naheed Espinoza MD Dec 18, 2017 11:25
[2017-12-18 12:00] VITALS: BP 127/74
[2017-12-18] MEDS: NovoLOG Insulin Flexpen SUBQ SCH ×2 (12:00→18:00)
[2017-12-18 16:00] VITALS: BP 136/60
--- NOTE | 2017-12-18 16:28 | Consultation ---
Consult Note Consult Note [id number] Shayan Ricci MD Dec 18, 2017 16:28
--- NOTE | 2017-12-18 16:30 | Consultation ---
DATE OF CONSULTATION: 12/18/2017 HISTORY OF PRESENT ILLNESS: The patient is a 72-year-old male patient admitted to [facility] secondary to generalized weakness but he has increased mood lability, confusion, disorganized thought process worsened by stress of his medical illness that is why his attending has requested daily psychiatric consultation. MEDICAL PROBLEMS: Generalized weakness. SOCIAL HISTORY: He lives in facility, financially supported by [employer] and Medicare. ALLERGIES: He has no known drug allergies. SUBSTANCE ABUSE HISTORY: Denies drug and alcohol use FAMILY PSYCHIATRIC HISTORY: Denies. MENTAL STATUS EXAMINATION: The patient is a 72-year-old male. Appearance is disheveled. Attitude irritable and agitated. Affect guarded and restricted. Intellect poor. Mood depressed and anxious. Motor activity, psychomotor agitation. Attention span is poor. Orientation x2. Speech is pressured. Thought process, disorganized and illogical. Thought content, auditory hallucinations and paranoid delusions. Insight and judgment is poor. DIAGNOSIS: Schizoaffective bipolar type. PLAN: To treat with psychotropic medication regimen of Zyprexa 15 mg , Seroquel 200 mg at bedtime, Tegretol 200 mg four times a day. A 20 minutes of supportive therapy provided. Encouraged him to interact appropriately with staff and other patients. Chart was reviewed and discussed with staff. Seen and assessed at bedside. Devon Castillo M.D. DR: Mei JOB#: [id number] CC:
--- NOTE | 2017-12-18 16:30 | Consultation ---
DATE OF CONSULTATION: 12/18/2017 GASTROENTEROLOGY CONSULTATION CONSULTING PHYSICIAN: Tano Dominguez M.D. REFERRING PHYSICIAN: Den Moreau D.O. CHIEF COMPLAINT: GI bleeding. HISTORY OF PRESENT ILLNESS: Most of history per chart. A 72-year-old male with past medical history of COPD, chronic respiratory failure with trach, history of dysphagia with G-tube, history of seizure disorder, psychiatric disorder, pacemaker placement, and paranoid schizophrenia, was admitted from the skilled nursing for evaluation of the possible GI bleeding. Apparently, he had stool OB positive. PAST MEDICAL HISTORY: 1. COPD. 2. Chronic respiratory failure with trach. 3. Dysphagia with PEG. 4. Seizure disorder. 5. Pacemaker placement. PAST SURGICAL HISTORY: Tracheostomy. ALLERGIES: 1. Chlorpromazine. 2. Erythromycin. MEDICATIONS: Please see medication reconciliation list. SOCIAL HISTORY: Currently lives in a skilled nursing. No recent history of tobacco, alcohol, or drug abuse. FAMILY HISTORY: Noncontributory. REVIEW OF SYSTEMS: Unable to obtain. PHYSICAL EXAMINATION: VITAL SIGNS: Temperature is afebrile, pulse is 84, respirations 14, and blood pressure is 133/74. HEENT: Normocephalic and atraumatic. Sclerae anicteric NECK: Supple. No evidence of lymphadenopathy. Trach in place. CARDIOVASCULAR: Regular rhythm. Plus S1 and S2. Pacemaker in place. LUNGS: Decreased breath sounds bilaterally and diffusely on supine exam. ABDOMEN: Soft and nontender. G-tube in place. No rebound. No guarding. No peritoneal sign. EXTREMITIES: No cyanosis, no clubbing, no edema. LABORATORY DATA: White count is 9.7, hemoglobin is 10, hematocrit is 31, and platelet count is 235. Chem-7, sodium 135, potassium 4.1, BUN is 42, and creatinine is 1.0. ASSESSMENT AND PLAN: This is a 72-year-old male with numerous medical problems currently on vent with gastrostomy tube, admitted to hospital with possible GI bleeding, has elevated BUN and creatinine ratio suggestive of upper GI bleeding, but his hemoglobin is actually compared to prior admission is not significantly low. The patient was discharged on 07/18/2018 with hemoglobin of 10.5, now is 10.1. Plan to start him on tube feeding for today, keep him NPO after midnight except for medications. We will try to do an endoscopy tomorrow for evaluation of upper GI bleeding. We will start the patient on Protonix daily. We will also send the stool for OB. I want to thank, Dr. Den Moreau, for this kind referral. Tano Nancy Dominguez DR: BRANDEN JOB#: [id number] CC: Den Moreau D.O.
--- NOTE | 2017-12-18 16:34 | Cardiology Report ---
APPROVED REPORT EKG Measurement Heart [id number] Normal sinus rhythm Nonspecific T wave abnormality Abnormal ECG
--- NOTE | 2017-12-18 18:45 | History and Physical Report ---
DATE OF ADMISSION: 12/18/2017 TIME: 3 p.m. CONSULTANTS: 1. Naheed Espinoza M.D. 2. Tano Dominguez M.D. CHIEF COMPLAINT: GI bleed, anemia, and respiratory failure. BRIEF HISTORY: A 72-year-old male from [facility] presented with the above-mentioned diagnosis, transferred to [facility], and admitted to [facility]. Currently, calm, trach, vent, altered, lethargic, and nonverbal in bed. PAST MEDICAL HISTORY: Include respiratory failure, schizophrenia, weakness, and encephalopathy. PAST SURGICAL HISTORY: Trach and G-tube. MEDICATIONS: Include Protonix, Seroquel, NovoLog, vancomycin, Tegretol, , Zyprexa, and vancomycin. ALLERGIES: Chlorpromazine, erythromycin based. SOCIAL HISTORY: Unable to obtain. REVIEW OF SYSTEMS: Unavailable. OBJECTIVE: GENERAL: Lethargic in bed, nonverbal, trach, and vented. VITAL SIGNS: Show temperature is not given, pulse 88, respirations 14, and blood pressure is not given. CARDIOVASCULAR: No murmurs. LUNGS: Poor air exchange. ABDOMEN: Bowel sounds distant. EXTREMITIES: Show no cyanosis, clubbing, or edema. NEUROLOGIC: The patient is flaccid in bed, not following directions. LABORATORY DATA: Labs at this time show hemoglobin 10, otherwise CBC is normal. BMP shows sodium 135. BUN and creatinine are 42 and 1.0. Otherwise, BMP is normal. Albumin 2.8. ASSESSMENT: 1. Respiratory failure. 2. Gastrointestinal bleed. 3. Anemia. 4. Weakness. 5. Dehydration. 6. Schizophrenia. 7. Encephalopathy. PLAN: 1. Continue premeds 2. . 3. Antibiotics per Infectious Disease. 4. P.r.n. IV fluids. 5. Resume home medications. 6. GI followup. 7. OT, PT, and dietary evaluation. 8. CBC and BMP in the morning. 9. We will continue to follow this patient. Den Moreau D.O. DR: ANDREE JOB#: [id number] CC:
[2017-12-18 20:00] VITALS: BP 134/77
[2017-12-18] MEDS: QUEtiapine 200mg tab ORAL SCH (20:50)
[2017-12-18] MEDS ORDERED: 1/2 NS 1000ml IV ONE (21:27)
[2017-12-18] MEDS ORDERED: Tubing IV Secondary IV ONE (21:27)
--- NOTE | 2017-12-18 23:30 | Consultation ---
DATE OF CONSULTATION: 12/18/2017 INFECTIOUS DISEASES CONSULTATION CONSULTING PHYSICIAN: Shayan Ricci M.D. REFERRING PHYSICIAN: Den Moreau D.O. REASON FOR CONSULTATION: Evaluation of the patient for possible colitis, antibiotic management. HISTORY OF PRESENT ILLNESS: The patient is a 72-year-old male with multiple medical problems as listed below, who came to the hospital for anemia and blood in the stool. The patient does not have any complaint of abdominal pain, no nausea or vomiting. Infectious Diseases consultation has been requested for further evaluation of the patient for antibiotic treatment. PAST MEDICAL HISTORY: 1. Seizures. 2. Pacemaker. 3. Hypertension. 4. COPD. 5. Ventilator-dependent respiratory failure. 6. History of trach. 7. History of IVC filter. 8. History of CKD. 9. Anemia. MEDICATIONS: The patient is on IV vancomycin. ALLERGIES: Erythromycin. FAMILY HISTORY: Not contributing. SOCIAL HISTORY: [facility] in a jail. PHYSICAL EXAMINATION: VITAL SIGNS: Temperature 98 degrees, pulse 86, respiratory rate 18, and blood pressure 133/74. HEENT: No pale conjunctivae. No icterus. NECK: Trach in place. CHEST: Coarse breathing sounds. HEART: S1 and S2. ABDOMEN: Soft and nontender. EXTREMITIES: No cyanosis at this time. NEUROLOGIC: Awake. LABORATORY AND DIAGNOSTIC DATA: White blood cells 9.7, hemoglobin 10, and platelets 235. BUN 42, creatinine 1. ALT and AST are unremarkable and alkaline phosphatase 144. Blood culture is pending. Sputum culture is pending. Chest x-ray showed probable mild interstitial edema. ASSESSMENT: The patient is a 72-year-old male with: 1. Probable lower GI bleed ? gross versus just occult. 2. Mild elevation of alkaline phosphatase, however, no significance at this time. 3. Doubt pneumonia, the patient has no significant cough. 4. Afebrile. 5. Normal white blood cells. PLAN: 1. We will monitor the patient off of antibiotics. 2. Monitor CBC and BMP. 3. We will follow cultures (blood and sputum). 4. Based on the patient's clinical course and labs and cultures, we will do further recommendations. Thank you, Dr. Den Moreau, for allowing me to participate in the care of this patient. I will follow the patient with you during this hospitalization. Shayan Ricci M.D. DR: Rosmery JOB#: [id number] CC:
[2017-12-19] VITALS: BP 117/66
[2017-12-19] MEDS: NovoLOG Insulin Flexpen SUBQ SCH ×4 (06:00→17:47)
--- NOTE | 2017-12-19 06:39 | Anethesia Preoperative Eval ---
Anesthesia Pre-op PMH/ROS General Date of Evaluation: Dec 19, 2017 Time of Evaluation: 06:34 Anesthesiologist: vickey ASA Score: ASA 4 Mallampati Score Class I : Soft palate, uvula, fauces, pillars visible Class II: Soft palate, uvula, fauces visible Class III: Soft palate, base of uvula visible Class IV: Only hard plate visible Mallampati Classification: Class II Surgeon: eliot Diagnosis: anemia Surgical Procedure: egd Anesthesia History: none Family History: no anesthesia problems Allergies: Coded Allergies: CHLORPROMAZINE (Verified Allergy, Unknown, 06/23/17) ERYTHROMYCIN BASE (Verified Allergy, Unknown, 06/23/17) Uncoded Allergies: TAPE (Allergy, Unknown, 06/23/17) Medications: see eMAR Past Medical History Cardiovascular: Reports: HTN, CAD, other - pacemaker Pulmonary: Reports: COPD, other - respiratory failure, tracheostomy Gastrointestinal/Genitourinary: Reports: ESRD - on hemodialysis, other - dysphagia, lgib, uti Neurologic/Psychiatric: Reports: other - seizure disorder, schizophrenia Hematology/Immune: Reports: other - cancer Anesthesia Pre-op Phys. Exam Physician Exam Last Vital Signs Date Time Temp Pulse Resp B/P (MAP) Pulse Ox O2 Delivery O2 Flow Rate FiO2 12/19/17 04:51 107 17 30 12/19/17 00:00 98.0 117/66 98 Mechanical Ventilator 98.0 Constitutional: NAD Neurologic: CN 2-12 intact Cardiovascular: RRR Respiratory: CTA Gastrointestinal: S/NT/ND Airway Exam Mallampati Score: Class II MO: full Neck: supple TMD: 2fb ROM: limited Teeth: missing Anesthesia Pre-op A/P Labs Labs Test 12/17/17 19:21 12/17/17 19:25 12/18/17 04:40 12/19/17 05:05 White Blood Count 10.5 K/UL (4.8-10.8) 9.7 K/UL (4.8-10.8) 7.4 K/UL (4.8-10.8) Red Blood Count 3.63 M/UL (4.70-6.10) 3.42 M/UL (4.70-6.10) 3.54 M/UL (4.70-6.10) Hemoglobin 11.0 G/DL (14.2-18.0) 10.1 G/DL (14.2-18.0) 10.6 G/DL (14.2-18.0) Hematocrit 32.8 % (42.0-52.0) 31.0 % (42.0-52.0) 32.1 % (42.0-52.0) Mean Corpuscular Volume 90 FL (80-99) 91 FL (80-99) 91 FL (80-99) Mean Corpuscular Hemoglobin 30.3 PG (27.0-31.0) 29.4 PG (27.0-31.0) 29.9 PG (27.0-31.0) Mean Corpuscular Hemoglobin Concent 33.5 G/DL (32.0-36.0) 32.5 G/DL (32.0-36.0) 32.9 G/DL (32.0-36.0) Red Cell Distribution Width 15.0 % (11.6-14.8) 15.2 % (11.6-14.8) 15.0 % (11.6-14.8) Platelet Count 247 K/UL (150-450) 235 K/UL (150-450) 249 K/UL (150-450) Mean Platelet Volume 6.0 FL (6.5-10.1) 6.2 FL (6.5-10.1) 5.6 FL (6.5-10.1) Neutrophils (%) (Auto) 73.7 % (45.0-75.0) 69.6 % (45.0-75.0) 57.1 % (45.0-75.0) Lymphocytes (%) (Auto) 16.5 % (20.0-45.0) 19.8 % (20.0-45.0) 28.4 % (20.0-45.0) Monocytes (%) (Auto) 5.0 % (1.0-10.0) 5.5 % (1.0-10.0) 7.9 % (1.0-10.0) Eosinophils (%) (Auto) 4.0 % (0.0-3.0) 4.1 % (0.0-3.0) 5.5 % (0.0-3.0) Basophils (%) (Auto) 0.9 % (0.0-2.0) 0.9 % (0.0-2.0) 1.0 % (0.0-2.0) Sodium Level 137 MMOL/L (136-145) 135 MMOL/L (136-145) 137 MMOL/L (136-145) Potassium Level 3.9 MMOL/L (3.5-5.1) 4.1 MMOL/L (3.5-5.1) 4.3 MMOL/L (3.5-5.1) Chloride Level 99 MMOL/L (98-107) 100 MMOL/L (98-107) 101 MMOL/L (98-107) Carbon Dioxide Level 33 MMOL/L (21-32) 32 MMOL/L (21-32) 30 MMOL/L (21-32) Anion Gap 5 mmol/L (5-15) 4 mmol/L (5-15) 6 mmol/L (5-15) Blood Urea Nitrogen 49 mg/dL (7-18) 42 mg/dL (7-18) 36 mg/dL (7-18) Creatinine 1.0 MG/DL (0.55-1.30) 1.0 MG/DL (0.55-1.30) 1.2 MG/DL (0.55-1.30) Estimat Glomerular Filtration Rate > 60 mL/min (>60) > 60 mL/min (>60) 59.9 mL/min (>60) Glucose Level 101 MG/DL (74-106) 95 MG/DL (74-106) 76 MG/DL (74-106) Lactic Acid Level 1.00 mmol/L (0.66-2.22) Calcium Level 9.6 MG/DL (8.5-10.1) 9.4 MG/DL (8.5-10.1) 9.9 MG/DL (8.5-10.1) Total Bilirubin 0.2 MG/DL (0.2-1.0) 0.4 MG/DL (0.2-1.0) Aspartate Amino Transf (AST/SGOT) 22 U/L (15-37) 29 U/L (15-37) Alanine Aminotransferase (ALT/SGPT) 18 U/L (12-78) 19 U/L (12-78) Alkaline Phosphatase 144 U/L (46-116) 149 U/L (46-116) Total Creatine Kinase 106 U/L (26-308) Creatine Kinase MB < 0.5 NG/ML (0.0-3.6) Creatine Kinase MB Relative Index 0.4 Troponin I 0.000 ng/mL (0.000-0.056) Total Protein 9.1 G/DL (6.4-8.2) 8.7 G/DL (6.4-8.2) Albumin 3.1 G/DL (3.4-5.0) 2.8 G/DL (3.4-5.0) 2.9 G/DL (3.4-5.0) Globulin 6.0 g/dL 5.8 g/dL Albumin/Globulin Ratio 0.5 (1.0-2.7) 0.5 (1.0-2.7) Arterial Blood pH 7.412 (7.350-7.450) Arterial Blood Partial Pressure CO2 47.2 mmHg (35.0-45.0) Arterial Blood Partial Pressure O2 129.6 mmHg (75.0-100.0) Arterial Blood HCO3 29.4 mmol/L (22.0-26.0) Arterial Blood Oxygen Saturation 98.3 % (92.0-98.0) Arterial Blood Base Excess 4.1 Anthony Test Positive Phosphorus Level 4.8 MG/DL (2.5-4.9) 5.2 MG/DL (2.5-4.9) Iron Level 47 ug/dL (50-175) Total Iron Binding Capacity 215 ug/dL (250-450) Percent Iron Saturation 22 % (15-50) Unsaturated Iron Binding 168 ug/dL (112-346) Prothrombin Time 10.8 SEC (9.30-11.50) Prothromb Time International Ratio 1.0 (0.9-1.1) Magnesium Level 2.4 MG/DL (1.8-2.4) Intake and Output 12/18/17 12/19/17 19:00 07:00 Intake Total 50 ml 1412.50 ml Output Total 300 ml 1100 ml Balance -250 ml 312.50 ml Free Water 50 ml 60 ml IV Total 1352.50 ml Output Urine Total 300 ml 1100 ml # Voids 3 # Bowel Movements 1 Risk Assessment & Plan Assessment: [id number] Plan: mac Status Change Before Surgery: No Pre-Antibiotics Drug: SRIKANTH Jon Dec 19, 2017 06:39
[2017-12-19] MEDS ORDERED: fentaNYL 100 mcg/2 mL IV PRN (06:45)
[2017-12-19] MEDS ORDERED: Midazolam 2mg/2ml Inj IVP PRN (06:45)
[2017-12-19] MEDS ORDERED: Atropine Inj 1mg/10ml Syr IV PRN (06:45)
[2017-12-19] MEDS ORDERED: DiphenhydrAMINE 50mg/ml Inj IVP PRN (06:45)
[2017-12-19 07:21] LABS: EOSINOPHILS % (AUTO) 5.5 % (0.0-3.0); HEMATOCRIT 32.1 % (42.0-52.0); HEMOGLOBIN 10.6 G/DL (14.2-18.0); LYMPHOCYTES % (AUTO) 28.4 % (20.0-45.0); MEAN CORPUSCULAR VOLUME 91 FL (80-99); MONOCYTES % (AUTO) 7.9 % (1.0-10.0); NEUTROPHILS % (AUTO) 57.1 % (45.0-75.0); PLATELET COUNT 249 K/UL (150-450); RED BLOOD COUNT 3.54 M/UL (4.70-6.10); WHITE BLOOD COUNT 7.4 K/UL (4.8-10.8)
[2017-12-19 07:52] LABS: ALANINE AMINOTRANSFERASE 19 U/L (12-78); ALBUMIN 2.9 G/DL (3.4-5.0); ALBUMIN/GLOBULIN RATIO 0.5 (1.0-2.7); ALKALINE PHOSPHATASE 149 U/L (46-116); ANION GAP 6 mmol/L (5-15); ASPARTATE AMINO TRANSFERASE 29 U/L (15-37); BILIRUBIN,TOTAL 0.4 MG/DL (0.2-1.0); BLOOD UREA NITROGEN 36 mg/dL (7-18); CALCIUM 9.9 MG/DL (8.5-10.1); CARBON DIOXIDE 30 MMOL/L (21-32); CHLORIDE 101 MMOL/L (98-107); CREATININE 1.2 MG/DL (0.55-1.30); POTASSIUM 4.3 MMOL/L (3.5-5.1); SODIUM 137 MMOL/L (136-145)
[2017-12-19 08:00] VITALS: BP 110/64
[2017-12-19 08:12] LABS: PHOSPHORUS 5.2 MG/DL (2.5-4.9)
--- NOTE | 2017-12-19 08:12 | Diagnostic Imaging Report ---
APPROVED REPORT CPT Code: 82343 Present Symptoms Shortness of breath RIGHT LEG: Venous imaging reveals a patent deep venous system. There is no evidence of thrombus within the femoral, popliteal or tibial segments. The greater saphenous vein is also within normal limits. Doppler indicates normal spontaneous flow within these segments. LEFT LEG: Venous imaging reveals chronic thrombus in the superficial femoral to popliteal veins. Imaging also reveals patency of the common femoral and calf veins. The greater saphenous vein is also within normal limits. Doppler indicates normal spontaneous flow within these segments. There is no evidence of acute deep vein thrombosis.
--- NOTE | 2017-12-19 10:24 | Pre-Procedure Note/Attestation ---
Pre-Procedure Note/Attestation Complete Prior to Procedure Planned Procedure: not applicable Procedure Narrative: egd Indications for Procedure Pre-Operative Diagnosis: gib Attestation I attest that I discussed the nature of the procedure; its benefits; risks and complications; and alternatives (and the risks and benefits of such alternatives ), prior to the procedure, with the patient (or the patient's legal disability representative). I attest that, if there was a reasonable possibility of needing a blood transfusion, the patient (or the patient's legal disability representative) was given the [facility] standardized written summary, pursuant to the Patrice Lelia Blood Safety Act ([place] Health and Safety Code # 1645, as amended). I attest that I re-evaluated the patient just prior to the surgery and that there has been no change in the patient's H&P, except as documented below: MICAH LAYNE Dec 19, 2017 10:24
--- NOTE | 2017-12-19 10:25 | General Progress Note ---
Assessment/Plan Problem List: (1) intermediate resident ICD Codes: Z59.3 - Problems related to living in residential institution SNOMED: 152942276 (2) Tracheostomy present ICD Codes: Z93.0 - Tracheostomy status SNOMED: 011427923 (3) History of pacemaker ICD Codes: Z95.0 - Presence of cardiac pacemaker SNOMED: 208142447 (4) Feeding by G-tube ICD Codes: Z93.1 - Gastrostomy status SNOMED: 533015842, 214455563 (5) Anemia ICD Codes: D64.9 - Anemia, unspecified SNOMED: 543346281 Assessment/Plan plan EGD for today Subjective ROS Limited/Unobtainable: No Allergies: Coded Allergies: CHLORPROMAZINE (Verified Allergy, Unknown, 06/23/17) ERYTHROMYCIN BASE (Verified Allergy, Unknown, 06/23/17) Uncoded Allergies: TAPE (Allergy, Unknown, 06/23/17) Objective Last 24 Hour Vital Signs Date Time Temp Pulse Resp B/P (MAP) Pulse Ox O2 Delivery O2 Flow Rate FiO2 12/19/17 08:34 60 14 30 12/19/17 08:00 60 12/19/17 08:00 98.9 62 14 110/64 99 Mechanical Ventilator 30 98.9 12/19/17 08:00 30 12/19/17 07:22 60 14 30 12/19/17 04:51 107 17 30 12/19/17 04:00 30 12/19/17 04:00 64 12/19/17 03:12 62 14 30 12/19/17 00:53 62 14 30 12/19/17 00:00 30 12/19/17 00:00 61 12/19/17 00:00 98.0 60 14 117/66 98 Mechanical Ventilator 30 98.0 12/18/17 23:25 61 14 30 12/18/17 20:51 78 14 30 12/18/17 20:00 97.8 60 14 134/77 99 Mechanical Ventilator 30 97.8 12/18/17 20:00 30 12/18/17 20:00 56 12/18/17 18:37 86 14 30 12/18/17 17:03 88 15 30 12/18/17 16:00 97.7 19 136/60 100 Mechanical Ventilator 30 97.7 12/18/17 16:00 30 12/18/17 16:00 65 12/18/17 15:35 88 14 30 12/18/17 13:20 88 14 30 12/18/17 12:00 64 12/18/17 12:00 98.2 25 127/74 100 Mechanical Ventilator 30 98.2 12/18/17 12:00 30 12/18/17 10:35 86 14 30 Intake and Output 12/18/17 12/19/17 19:00 07:00 Intake Total 50 ml 1412.50 ml Output Total 300 ml 1100 ml Balance -250 ml 312.50 ml Free Water 50 ml 60 ml IV Total 1352.50 ml Output Urine Total 300 ml 1100 ml # Voids 3 # Bowel Movements 1 Laboratory Tests 12/19/17 05:05: White Blood Count 7.4, Red Blood Count 3.54L, Hemoglobin 10.6L, Hematocrit 32.1L , Mean Corpuscular Volume 91, Mean Corpuscular Hemoglobin 29.9, Mean Corpuscular Hemoglobin Concent 32.9, Red Cell Distribution Width 15.0H, Platelet Count 249, Mean Platelet Volume 5.6L, Neutrophils (%) (Auto) 57.1, Lymphocytes (%) (Auto) 28.4, Monocytes (%) (Auto) 7.9, Eosinophils (%) (Auto) 5.5H, Basophils (%) (Auto) 1.0, Prothrombin Time 10.8, Prothromb Time International Ratio 1.0, Sodium Level 137, Potassium Level 4.3, Chloride Level 101, Carbon Dioxide Level 30, Anion Gap 6, Blood Urea Nitrogen 36H, Creatinine 1.2, Estimat Glomerular Filtration Rate 59.9, Glucose Level 76, Calcium Level 9.9, Phosphorus Level 5.2H, Magnesium Level 2.4, Total Bilirubin 0.4, Aspartate Amino Transf (AST/SGOT) 29, Alanine Aminotransferase (ALT/SGPT) 19, Alkaline Phosphatase 149H, Total Protein 8.7H, Albumin 2.9L, Globulin 5.8, Albumin/ Globulin Ratio 0.5L Height (Feet): 6 Height (Inches): 3.00 Weight (Pounds): 209 General Appearance: no apparent distress EENT: normal ENT inspection Neck: supple Cardiovascular: normal rate Respiratory/Chest: decreased breath sounds Abdomen: normal bowel sounds, non tender, soft Extremities: non-tender VOSOGHI,MICAH Dec 19, 2017 10:25
[2017-12-19] MEDS: carBAMazepine 200mg tab GT SCH ×4 (10:38→21:31)
--- NOTE | 2017-12-19 11:15 | Infectious Diseases Prog Note ---
Assessment/Plan Assessment/Plan ASSESSMENT: The patient is a 72-year-old male with: Probable lower GI bleed ? gross versus just occult. Mild elevation of alkaline phosphatase, however, no significance at this time. Doubt pneumonia, the patient has no significant cough. Afebrile. Normal white blood cells. Seizures Pacemaker Hypertension COPD Ventilator-dependent respiratory failure History of trach History of IVC filter History of CKD Anemia PLAN: will monitor the patient off of antibiotics. Monitor CBC and BMP. cultures (blood and sputum) EGD today Subjective Allergies: Coded Allergies: CHLORPROMAZINE (Verified Allergy, Unknown, 06/23/17) ERYTHROMYCIN BASE (Verified Allergy, Unknown, 06/23/17) Uncoded Allergies: TAPE (Allergy, Unknown, 06/23/17) Subjective EGD today Objective Vital Signs Last 24 Hour Vital Signs Date Time Temp Pulse Resp B/P (MAP) Pulse Ox O2 Delivery O2 Flow Rate FiO2 12/19/17 11:02 73 14 30 12/19/17 08:34 60 14 30 12/19/17 08:00 60 12/19/17 08:00 98.9 62 14 110/64 99 Mechanical Ventilator 30 98.9 12/19/17 08:00 30 12/19/17 07:22 60 14 30 12/19/17 04:51 107 17 30 12/19/17 04:00 30 12/19/17 04:00 64 12/19/17 03:12 62 14 30 12/19/17 00:53 62 14 30 12/19/17 00:00 30 12/19/17 00:00 61 12/19/17 00:00 98.0 60 14 117/66 98 Mechanical Ventilator 30 98.0 12/18/17 23:25 61 14 30 12/18/17 20:51 78 14 30 12/18/17 20:00 97.8 60 14 134/77 99 Mechanical Ventilator 30 97.8 12/18/17 20:00 30 12/18/17 20:00 56 12/18/17 18:37 86 14 30 12/18/17 17:03 88 15 30 12/18/17 16:00 97.7 19 136/60 100 Mechanical Ventilator 30 97.7 12/18/17 16:00 30 12/18/17 16:00 65 12/18/17 15:35 88 14 30 4/4/18 13:20 88 14 30 12/18/17 12:00 64 12/18/17 12:00 98.2 25 127/74 100 Mechanical Ventilator 30 98.2 12/18/17 12:00 30 Height (Feet): 6 Height (Inches): 3.00 Weight (Pounds): 209 HEENT: anicteric Respiratory/Chest: normal breath sounds Cardiovascular: regular rhythm Abdomen: no organomegaly Microbiology Date/Time Source Procedure Growth Status 12/17/17 19:36 Blood Blood Culture - Preliminary NO GROWTH AFTER 24 HOURS Resulted 12/17/17 19:21 Blood Blood Culture - Preliminary NO GROWTH AFTER 24 HOURS Resulted Laboratory Tests Test 12/19/17 05:05 White Blood Count 7.4 K/UL (4.8-10.8) Red Blood Count 3.54 M/UL (4.70-6.10) L Hemoglobin 10.6 G/DL (14.2-18.0) L Hematocrit 32.1 % (42.0-52.0) L Mean Corpuscular Volume 91 FL (80-99) Mean Corpuscular Hemoglobin 29.9 PG (27.0-31.0) Mean Corpuscular Hemoglobin Concent 32.9 G/DL (32.0-36.0) Red Cell Distribution Width 15.0 % (11.6-14.8) H Platelet Count 249 K/UL (150-450) Mean Platelet Volume 5.6 FL (6.5-10.1) L Neutrophils (%) (Auto) 57.1 % (45.0-75.0) Lymphocytes (%) (Auto) 28.4 % (20.0-45.0) Monocytes (%) (Auto) 7.9 % (1.0-10.0) Eosinophils (%) (Auto) 5.5 % (0.0-3.0) H Basophils (%) (Auto) 1.0 % (0.0-2.0) Prothrombin Time 10.8 SEC (9.30-11.50) Prothromb Time International Ratio 1.0 (0.9-1.1) Sodium Level 137 MMOL/L (136-145) Potassium Level 4.3 MMOL/L (3.5-5.1) Chloride Level 101 MMOL/L (98-107) Carbon Dioxide Level 30 MMOL/L (21-32) Anion Gap 6 mmol/L (5-15) Blood Urea Nitrogen 36 mg/dL (7-18) H Creatinine 1.2 MG/DL (0.55-1.30) Estimat Glomerular Filtration Rate 59.9 mL/min (>60) Glucose Level 76 MG/DL (74-106) Calcium Level 9.9 MG/DL (8.5-10.1) Phosphorus Level 5.2 MG/DL (2.5-4.9) H Magnesium Level 2.4 MG/DL (1.8-2.4) Total Bilirubin 0.4 MG/DL (0.2-1.0) Aspartate Amino Transf (AST/SGOT) 29 U/L (15-37) Alanine Aminotransferase (ALT/SGPT) 19 U/L (12-78) Alkaline Phosphatase 149 U/L (46-116) H Total Protein 8.7 G/DL (6.4-8.2) H Albumin 2.9 G/DL (3.4-5.0) L Globulin 5.8 g/dL Albumin/Globulin Ratio 0.5 (1.0-2.7) L Current Medications Medications (Trade) Dose Ordered Sig/Karen Route PRN Reason Start Time Stop Time Status Last Admin Dose Admin Acetaminophen (Tylenol) 650 mg Q4H PRN ORAL FEVER 12/17/17 21:00 01/16/18 20:59 12/18/17 20:51 Al Hydroxide/Mg Hydroxide (Mylanta) 15 ml Q1H PRN ORAL gi upset 12/19/17 06:45 Albuterol/ Ipratropium (Albuterol/ Ipratropium) 3 ml Q4H PRN HHN Shortness of Breath 12/17/17 21:00 12/22/17 20:59 Atropine Sulfate (Atropine) 0.5 mg Q5M PRN IV bpm less than 45 12/19/17 06:45 Carbamazepine (TEGretol) 200 mg FOUR TIMES A DAY GT 12/18/17 09:00 01/17/18 08:59 12/19/17 10:38 Clotrimazole (Lotrimin) 1 applic EVERY 12 HOURS TOPIC 12/18/17 21:00 01/17/18 20:59 12/19/17 10:33 Dextrose (Dextrose 50%) 25 ml STAT PRN IV HYPOGLYCEMIA 12/18/17 08:45 01/17/18 08:44 Dextrose (Dextrose 50%) 50 ml STAT PRN IV Hypoglycemia 12/18/17 09:30 01/17/18 09:29 Diphenhydramine HCl (Benadryl) 25 mg Q15M PRN IVP Itching 12/19/17 06:45 Fentanyl Citrate (Sublimaze 100 mcg/2 mL) 25 mcg Q10M PRN IV Moderate Pain (Pain Scale 4-6) 12/19/17 06:45 Hydralazine HCl (Apresoline) 5 mg Q30M PRN IV SBP>160 OR___/DBP>90 OR___ 12/19/17 06:45 Insulin Aspart (NovoLOG) EVERY 6 HOURS SUBQ 12/18/17 12:00 01/17/18 11:59 Levetiracetam (Keppra) 500 mg TWICE A DAY ORAL 12/17/17 22:00 01/16/18 21:59 12/19/17 09:00 Lorazepam (Ativan 2mg/ml 1ml) 2 mg Q2H PRN IV For Anxiety 12/17/17 21:00 12/24/17 20:59 Midazolam HCl (Versed 2mg/2ml vial) 1 mg Q15M PRN IVP For Anxiety 12/19/17 06:45 Midodrine (Pro-Amatine) 5 mg BID GT 12/18/17 09:00 01/17/18 08:59 12/19/17 10:38 Morphine Sulfate (Morphine Sulfate) 4 mg Q4H PRN IVP Severe Pain (Pain Scale 7-10) 12/17/17 21:00 12/24/17 20:59 Olanzapine (ZyPREXA) 15 mg DAILY GT 12/18/17 09:00 01/17/18 08:59 12/19/17 10:38 Ondansetron HCl (Zofran) 4 mg Q1H PRN IVP Nausea & Vomiting 12/19/17 06:45 Ondansetron HCl (Zofran) 4 mg Q6H PRN IVP Nausea & Vomiting 12/17/17 21:00 01/16/18 20:59 Pantoprazole (Protonix) 40 mg DAILY ORAL 12/19/17 09:00 01/18/18 08:59 12/19/17 09:00 Polyethylene Glycol (Miralax) 17 gm DAILYPRN PRN ORAL Constipation 12/17/17 21:00 01/16/18 20:59 Quetiapine Fumarate (SEROquel) 200 mg BEDTIME ORAL 12/18/17 21:00 01/17/18 08:59 12/18/17 20:50 Sodium Chloride 1,000 ml @ 75 mls/hr [id number] IV 12/17/17 22:00 01/16/18 21:59 12/19/17 02:20 Shayan Ricci MD Dec 19, 2017 11:15
[2017-12-19 12:00] VITALS: BP 107/56
[2017-12-19] MEDS ORDERED: Propofol 200mg/20ml IV ONE (12:00)
[2017-12-19] MEDS ORDERED: Lidocaine 1% MPF 10mg/ml 5ml ONE (12:00)
--- NOTE | 2017-12-19 12:25 | Pulmonology Progress Note ---
Assessment/Plan Problems: (1) Chronic respiratory failure (2) Lower GI bleeding (3) Anemia (4) Generalized weakness (5) History of pacemaker (6) Feeding by G-tube (7) Tracheostomy present (8) Schizophrenia Respiratory: adjust tidal volume, monitor respiratory rate, adjust FIO2 Cardiac: continue to monitor HR/BP Renal: F/U I&O, keep IV fluid Infectious Disease: check cultures Gastrointestinal: hold feedings, other - for EGD today Endocrine: check TSH Hematologic: monitor H/H Neurologic: PRN Ativan Affect: PRN ativan Prophylaxis: Heparin Time Spent (Minutes): 30 Notes Reviewed: cardio Subjective ROS Limited/Unobtainable: No Constitutional: Reports: no symptoms HEENT: Repors: no symptoms Respiratory: Reports: no symptoms Allergies: Coded Allergies: CHLORPROMAZINE (Verified Allergy, Unknown, 06/23/17) ERYTHROMYCIN BASE (Verified Allergy, Unknown, 06/23/17) Uncoded Allergies: TAPE (Allergy, Unknown, 06/23/17) Objective Last 24 Hour Vital Signs Date Time Temp Pulse Resp B/P (MAP) Pulse Ox O2 Delivery O2 Flow Rate FiO2 12/19/17 11:50 60 12/19/17 11:02 73 14 30 12/19/17 08:34 60 14 30 12/19/17 08:00 60 12/19/17 08:00 98.9 62 14 110/64 99 Mechanical Ventilator 30 98.9 12/19/17 08:00 30 12/19/17 07:22 60 14 30 12/19/17 04:51 107 17 30 12/19/17 04:00 30 12/19/17 04:00 64 12/19/17 03:12 62 14 30 12/19/17 00:53 62 14 30 12/19/17 00:00 30 12/19/17 00:00 61 12/19/17 00:00 98.0 60 14 117/66 98 Mechanical Ventilator 30 98.0 12/18/17 23:25 61 14 30 12/18/17 20:51 78 14 30 12/18/17 20:00 97.8 60 14 134/77 99 Mechanical Ventilator 30 97.8 12/18/17 20:00 30 12/18/17 20:00 56 12/18/17 18:37 86 14 30 12/18/17 17:03 88 15 30 12/18/17 16:00 97.7 19 136/60 100 Mechanical Ventilator 30 97.7 12/18/17 16:00 30 12/18/17 16:00 65 12/18/17 15:35 88 14 30 12/18/17 13:20 88 14 30 Intake and Output 12/18/17 12/19/17 19:00 07:00 Intake Total 50 ml 1412.50 ml Output Total 300 ml 1100 ml Balance -250 ml 312.50 ml Free Water 50 ml 60 ml IV Total 1352.50 ml Output Urine Total 300 ml 1100 ml # Voids 3 # Bowel Movements 1 General Appearance: WD/WN HEENT: normocephalic, anicteric Respiratory/Chest: chest wall non-tender, normal breath sounds Cardiovascular: normal peripheral pulses, normal rate, no JVD Abdomen: soft, non tender Genitourinary: normal external genitalia Extremities: no clubbing Skin: no lesions 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, no motor/sensory deficits, normal mood/affect Lymphatic: no neck adenopathy Musculoskeletal: no effusion Microbiology Date/Time Source Procedure Growth Status 12/17/17 19:36 Blood Blood Culture - Preliminary NO GROWTH AFTER 24 HOURS Resulted 12/17/17 19:21 Blood Blood Culture - Preliminary NO GROWTH AFTER 24 HOURS Resulted Laboratory Tests 12/19/17 05:05: White Blood Count 7.4, Red Blood Count 3.54L, Hemoglobin 10.6L, Hematocrit 32.1L , Mean Corpuscular Volume 91, Mean Corpuscular Hemoglobin 29.9, Mean Corpuscular Hemoglobin Concent 32.9, Red Cell Distribution Width 15.0H, Platelet Count 249, Mean Platelet Volume 5.6L, Neutrophils (%) (Auto) 57.1, Lymphocytes (%) (Auto) 28.4, Monocytes (%) (Auto) 7.9, Eosinophils (%) (Auto) 5.5H, Basophils (%) (Auto) 1.0, Prothrombin Time 10.8, Prothromb Time International Ratio 1.0, Sodium Level 137, Potassium Level 4.3, Chloride Level 101, Carbon Dioxide Level 30, Anion Gap 6, Blood Urea Nitrogen 36H, Creatinine 1.2, Estimat Glomerular Filtration Rate 59.9, Glucose Level 76, Calcium Level 9.9, Phosphorus Level 5.2H, Magnesium Level 2.4, Total Bilirubin 0.4, Aspartate Amino Transf (AST/SGOT) 29, Alanine Aminotransferase (ALT/SGPT) 19, Alkaline Phosphatase 149H, Total Protein 8.7H, Albumin 2.9L, Globulin 5.8, Albumin/ Globulin Ratio 0.5L Current Medications Medications (Trade) Dose Ordered Sig/Karen Route PRN Reason Start Time Stop Time Status Last Admin Dose Admin Acetaminophen (Tylenol) 650 mg Q4H PRN ORAL FEVER 12/17/17 21:00 01/16/18 20:59 12/18/17 20:51 Al Hydroxide/Mg Hydroxide (Mylanta) 15 ml Q1H PRN ORAL gi upset 12/19/17 06:45 Albuterol/ Ipratropium (Albuterol/ Ipratropium) 3 ml Q4H PRN HHN Shortness of Breath 12/17/17 21:00 12/22/17 20:59 Atropine Sulfate (Atropine) 0.5 mg Q5M PRN IV bpm less than 45 12/19/17 06:45 Carbamazepine (TEGretol) 200 mg FOUR TIMES A DAY GT 12/18/17 09:00 01/17/18 08:59 12/19/17 10:38 Clotrimazole (Lotrimin) 1 applic EVERY 12 HOURS TOPIC 12/18/17 21:00 01/17/18 20:59 12/19/17 10:33 Dextrose (Dextrose 50%) 25 ml STAT PRN IV HYPOGLYCEMIA 12/18/17 08:45 01/17/18 08:44 Dextrose (Dextrose 50%) 50 ml STAT PRN IV Hypoglycemia 12/18/17 09:30 01/17/18 09:29 Diphenhydramine HCl (Benadryl) 25 mg Q15M PRN IVP Itching 12/19/17 06:45 Fentanyl Citrate (Sublimaze 100 mcg/2 mL) 25 mcg Q10M PRN IV Moderate Pain (Pain Scale 4-6) 12/19/17 06:45 Hydralazine HCl (Apresoline) 5 mg Q30M PRN IV SBP>160 OR___/DBP>90 OR___ 12/19/17 06:45 Insulin Aspart (NovoLOG) EVERY 6 HOURS SUBQ 12/18/17 12:00 01/17/18 11:59 Levetiracetam (Keppra) 500 mg TWICE A DAY ORAL 12/17/17 22:00 01/16/18 21:59 12/19/17 09:00 Lorazepam (Ativan 2mg/ml 1ml) 2 mg Q2H PRN IV For Anxiety 12/17/17 21:00 12/24/17 20:59 Midazolam HCl (Versed 2mg/2ml vial) 1 mg Q15M PRN IVP For Anxiety 12/19/17 06:45 Midodrine (Pro-Amatine) 5 mg BID GT 12/18/17 09:00 01/17/18 08:59 12/19/17 10:38 Morphine Sulfate (Morphine Sulfate) 4 mg Q4H PRN IVP Severe Pain (Pain Scale 7-10) 12/17/17 21:00 12/24/17 20:59 Olanzapine (ZyPREXA) 15 mg DAILY GT 12/18/17 09:00 01/17/18 08:59 12/19/17 10:38 Ondansetron HCl (Zofran) 4 mg Q1H PRN IVP Nausea & Vomiting 12/19/17 06:45 Ondansetron HCl (Zofran) 4 mg Q6H PRN IVP Nausea & Vomiting 12/17/17 21:00 01/16/18 20:59 Pantoprazole (Protonix) 40 mg DAILY ORAL 12/19/17 09:00 01/18/18 08:59 12/19/17 09:00 Polyethylene Glycol (Miralax) 17 gm DAILYPRN PRN ORAL Constipation 12/17/17 21:00 01/16/18 20:59 Quetiapine Fumarate (SEROquel) 200 mg BEDTIME ORAL 12/18/17 21:00 01/17/18 08:59 12/18/17 20:50 Sodium Chloride 1,000 ml @ 75 mls/hr [id number] IV 12/17/17 22:00 01/16/18 21:59 12/19/17 02:20 Naheed Espinoza MD Dec 19, 2017 12:25
--- NOTE | 2017-12-19 13:08 | General Progress Note ---
Assessment/Plan Problem List: (1) GIB (gastrointestinal bleeding) ICD Codes: K92.2 - Gastrointestinal hemorrhage, unspecified SNOMED: 83095921 (2) Weak ICD Codes: R53.1 - Weakness SNOMED: 26525612 (3) Dehydration ICD Codes: E86.0 - Dehydration SNOMED: 06224368 (4) Anemia ICD Codes: D64.9 - Anemia, unspecified SNOMED: 018860348 (5) Chronic respiratory failure ICD Codes: J96.10 - Chronic respiratory failure, unspecified whether with hypoxia or hypercapnia SNOMED: 93801018 (6) Elevated BUN ICD Codes: R79.9 - Abnormal finding of blood chemistry, unspecified SNOMED: 332709177 Status: unchanged Assessment/Plan vent abx ot pt diet ivf ltach eval Subjective Constitutional: Reports: weakness Allergies: Coded Allergies: CHLORPROMAZINE (Verified Allergy, Unknown, 06/23/17) ERYTHROMYCIN BASE (Verified Allergy, Unknown, 06/23/17) Uncoded Allergies: TAPE (Allergy, Unknown, 06/23/17) All Systems: reviewed and negative except above Subjective trach vent altered Objective Last 24 Hour Vital Signs Date Time Temp Pulse Resp B/P (MAP) Pulse Ox O2 Delivery O2 Flow Rate FiO2 12/19/17 12:00 98.5 61 14 107/56 100 Mechanical Ventilator 30 98.5 12/19/17 12:00 30 12/19/17 11:50 60 12/19/17 11:02 73 14 30 12/19/17 08:34 60 14 30 12/19/17 08:00 60 12/19/17 08:00 98.9 62 14 110/64 99 Mechanical Ventilator 30 98.9 12/19/17 08:00 30 12/19/17 07:22 60 14 30 12/19/17 04:51 107 17 30 12/19/17 04:00 30 12/19/17 04:00 64 12/19/17 03:12 62 14 30 12/19/17 00:53 62 14 30 12/19/17 00:00 30 12/19/17 00:00 61 12/19/17 00:00 98.0 60 14 117/66 98 Mechanical Ventilator 30 98.0 12/18/17 23:25 61 14 30 12/18/17 20:51 78 14 30 12/18/17 20:00 97.8 60 14 134/77 99 Mechanical Ventilator 30 97.8 12/18/17 20:00 30 12/18/17 20:00 56 12/18/17 18:37 86 14 30 12/18/17 17:03 88 15 30 12/18/17 16:00 97.7 19 136/60 100 Mechanical Ventilator 30 97.7 12/18/17 16:00 30 12/18/17 16:00 65 12/18/17 15:35 88 14 30 12/18/17 13:20 88 14 30 Intake and Output 12/18/17 12/19/17 19:00 07:00 Intake Total 50 ml 1412.50 ml Output Total 300 ml 1100 ml Balance -250 ml 312.50 ml Free Water 50 ml 60 ml IV Total 1352.50 ml Output Urine Total 300 ml 1100 ml # Voids 3 # Bowel Movements 1 Laboratory Tests 12/19/17 05:05: White Blood Count 7.4, Red Blood Count 3.54L, Hemoglobin 10.6L, Hematocrit 32.1L , Mean Corpuscular Volume 91, Mean Corpuscular Hemoglobin 29.9, Mean Corpuscular Hemoglobin Concent 32.9, Red Cell Distribution Width 15.0H, Platelet Count 249, Mean Platelet Volume 5.6L, Neutrophils (%) (Auto) 57.1, Lymphocytes (%) (Auto) 28.4, Monocytes (%) (Auto) 7.9, Eosinophils (%) (Auto) 5.5H, Basophils (%) (Auto) 1.0, Prothrombin Time 10.8, Prothromb Time International Ratio 1.0, Sodium Level 137, Potassium Level 4.3, Chloride Level 101, Carbon Dioxide Level 30, Anion Gap 6, Blood Urea Nitrogen 36H, Creatinine 1.2, Estimat Glomerular Filtration Rate 59.9, Glucose Level 76, Calcium Level 9.9, Phosphorus Level 5.2H, Magnesium Level 2.4, Total Bilirubin 0.4, Aspartate Amino Transf (AST/SGOT) 29, Alanine Aminotransferase (ALT/SGPT) 19, Alkaline Phosphatase 149H, Total Protein 8.7H, Albumin 2.9L, Globulin 5.8, Albumin/ Globulin Ratio 0.5L Height (Feet): 6 Height (Inches): 3.00 Weight (Pounds): 209 General Appearance: lethargic EENT: normal ENT inspection Neck: normal alignment Cardiovascular: normal peripheral pulses, normal rate, regular rhythm Respiratory/Chest: chest wall non-tender, lungs clear, normal breath sounds Abdomen: normal bowel sounds, non tender, soft Extremities: normal inspection Edema: no edema noted Arm (L), no edema noted Arm (R), no edema noted Leg (L), no edema noted Leg (R), no edema noted Pedal (L), no edema noted Pedal (R), no edema noted Generalized Neurologic: motor weakness Skin: normal pigmentation, warm/dry QUINTON HUMPHRIES Dec 19, 2017 13:08
--- NOTE | 2017-12-19 13:10 | Endoscopy Procedure Note ---
Endoscopy Procedure Note General Indication for Procedure: gib Procedures Performed: EGD Operative Findings/Diagnosis: gastritis Specimen: yes Pt Tolerated Procedure Well: Yes Estimated Blood Loss: none Anesthesia Anesthesiologist: benigno Anesthesia: MAC Inserted Devices Implant(s) used?: No GI Core Measures 50 yrs or older w/o bx or poly: Not Applicable 10yrs. F/U not recommended: Not Applicable MICAH LAYNE Dec 19, 2017 13:10
--- NOTE | 2017-12-19 13:21 | Immediate Post-Op Evaluation ---
Immediate Post-Op Evalulation Immediate Post-Op Evalulation Procedure: egd w/ addl Date of Evaluation: Dec 19, 2017 Time of Evaluation: 13:07 IV Fluids: 100ml 0.9ns Blood Products: none Estimated Blood Loss: neglgigble Blood Pressure Systolic: 116 Blood Pressure Diastolic: 59 Pulse Rate: 59 Respiratory Rate: 14 O2 Sat by Pulse Oximetry: 100 Pain Score (1-10): 0 Nausea: No Vomiting: No Complications none Patient Status: awake, reacts, patent Hydration Status: adequate Drug: SRIKANTH Jon Dec 19, 2017 13:21
--- NOTE | 2017-12-19 13:22 | 48 Hour Post Anesthesia Eval ---
Post Anesthesia Evaluation Procedure: egd w/ addl Date of Evaluation: Dec 19, 2017 Time of Evaluation: 13:09 Blood Pressure Systolic: 111 0: 55 Pulse Rate: 56 Respiratory Rate: 14 O2 Sat by Pulse Oximetry: 100 Airway: patent Nausea: No Vomiting: No Pain Intensity: 0 Hydration Status: adequate Cardiopulmonary Status: stable Mental Status/LOC: patient returned to baseline Post-Anesthesia Complications: none Follow-up care needed: N/A SRIKANTH REDDY Dec 19, 2017 13:22
[2017-12-19] MEDS ORDERED: Nulytely 4L ORAL ONE (16:00)
[2017-12-19] MEDS ORDERED: D5 1/2NS w/KCl 20mEq 1,000 ML IV SCH (16:00)
--- NOTE | 2017-12-19 16:30 | Progress Note ---
DATE: 12/19/2017 SUBJECTIVE: The patient is a 72-year-old male patient with generalized weakness. He has some confusion, disorganized thought process, and mood lability worsened by stress of his medical illness. His attending has requested daily psychiatric consultation due to his psychosis, mood lability, and agitation. MENTAL STATUS EXAMINATION: This is a 72-year-old male with psychomotor retardation. Appearance is disheveled. Attitude irritable and agitated. Affect guarded and restricted. Intellect poor. Mood depressed and anxious. Motor activity, psychomotor agitation. Attention span is poor. Orientation x2. Speech is pressured. Thought process, disorganized and illogical. Thought content, auditory hallucinations and paranoid delusions. Insight and judgment is poor. DIAGNOSIS: Schizoaffective, bipolar type. PLAN: Treat him with Zyprexa 15 mg per G-tube daily, Seroquel 200 mg at bedtime, Tegretol 200 mg four times a day. Provide 18 to 20 minutes of supportive therapy. Seen and assessed at bedside. Chart reviewed and discussed with staff. Seen and assessed in his room. Devon Castillo M.D. DR: Mei JOB#: [id number] CC:
[2017-12-19] MEDS: Heparin 2000 units/Ns 1000ml INJ SCH (17:00)
[2017-12-19] MEDS ORDERED: Lidocaine 1% Plain 30 ml INJ SCH (17:00)
--- NOTE | 2017-12-19 17:15 | Procedure Note ---
DATE OF PROCEDURE: 12/19/2017 SURGEON: Tano Dominguez M.D. REFERRING PHYSICIAN: Den Moreau D.O. PROCEDURE: Upper endoscopy with biopsy. ANESTHESIA: Per Dr. Douglas. INSTRUMENT: Olympus adult flexible upper endoscope. The procedure, risks, benefits, and possible consequences, including hemorrhage, aspiration, perforation and infection, and alternative treatments, were explained to the patient/legal guardian by Dr. Tano Dominguez and the patient/legal guardian understood and accepted these risks. INDICATION: Anemia. PROCEDURE: After informed consent was obtained and the patient was adequately sedated, Olympus upper endoscope was advanced from mouth into the second portion of the duodenum and retroflexion was performed in the stomach. G-tube was in place, balloon type. There is no evidence of any upper GI bleeding at this time. No blood or blood products were seen in the stomach. No evidence of any esophagitis. Random biopsy at this time was obtained to rule out H. pylori infection. Scope was retrieved and the procedure was terminated. SUMMARY FINDINGS: Gastritis, otherwise normal upper endoscopy examination. RECOMMENDATIONS: Given the persistent anemia, no prior history of colonoscopy, negative EGD, we will plan for colonoscopy tomorrow. I want to thank Dr. Den Moreau for this kind referral. Tano Dominguez M.D. DR: ERICA JOB#: [id number] CC: Den Moreau D.O.
[2017-12-19] MEDS: D5 1/2NS w/KCl 20mEq 1,000 ML IV SCH (18:00)
[2017-12-19 20:00] VITALS: BP 106/64
[2017-12-19] MEDS: Dyna-Hex 2% Top Sol 2oz TOPIC SCH (20:00)
[2017-12-19] MEDS: QUEtiapine 200mg tab ORAL SCH (21:31)
[2017-12-20] VITALS: BP 96/56
[2017-12-20 04:00] VITALS: BP 119/66
[2017-12-20] MEDS: NovoLOG Insulin Flexpen SUBQ SCH ×4 (05:51→18:00)
[2017-12-20 08:00] VITALS: BP 139/67
[2017-12-20] MEDS ORDERED: Midazolam 2mg/2ml Inj ONE (08:00)
[2017-12-20] MEDS ORDERED: fentaNYL 100 mcg/2 mL IV ONE (08:00)
[2017-12-20] MEDS: carBAMazepine 200mg tab GT SCH ×4 (09:00→21:26)
--- NOTE | 2017-12-20 09:04 | Pre-Procedure Note/Attestation ---
Pre-Procedure Note/Attestation Complete Prior to Procedure Planned Procedure: not applicable Procedure Narrative: colonoscopy Indications for Procedure Pre-Operative Diagnosis: gib Attestation I attest that I discussed the nature of the procedure; its benefits; risks and complications; and alternatives (and the risks and benefits of such alternatives ), prior to the procedure, with the patient (or the patient's legal career representative). I attest that, if there was a reasonable possibility of needing a blood transfusion, the patient (or the patient's legal career representative) was given the [facility] standardized written summary, pursuant to the Patrice Lelia Blood Safety Act ([place] Health and Safety Code # 1645, as amended). I attest that I re-evaluated the patient just prior to the surgery and that there has been no change in the patient's H&P, except as documented below: MICAH LAYNE Dec 20, 2017 09:04
[2017-12-20] MEDS ORDERED: NS 500ML IV ONE (09:10)
[2017-12-20 09:16] LABS: BASOPHILS % (AUTO) 1.1 % (0.0-2.0); EOSINOPHILS % (AUTO) 5.9 % (0.0-3.0); HEMATOCRIT 32.9 % (42.0-52.0); HEMOGLOBIN 10.7 G/DL (14.2-18.0); LYMPHOCYTES % (AUTO) 22.2 % (20.0-45.0); MEAN CORPUSCULAR VOLUME 90 FL (80-99); NEUTROPHILS % (AUTO) 62.7 % (45.0-75.0); PLATELET COUNT 251 K/UL (150-450); RED BLOOD COUNT 3.64 M/UL (4.70-6.10); RED CELL DISTRIBUTION WIDTH 14.7 % (11.6-14.8); WHITE BLOOD COUNT 8.4 K/UL (4.8-10.8)
--- NOTE | 2017-12-20 09:36 | Endoscopy Procedure Note ---
Endoscopy Procedure Note General Indication for Procedure: anemia Procedures Performed: colonoscopy Operative Findings/Diagnosis: 2 polyps Specimen: yes Pt Tolerated Procedure Well: Yes Estimated Blood Loss: none Anesthesia Anesthesiologist: see chart Anesthesia: MAC Inserted Devices Implant(s) used?: No GI Core Measures 50 yrs or older w/o bx or poly: Not Applicable 10yrs. F/U not recommended: Not Applicable MICAH LAYNE Dec 20, 2017 09:36
[2017-12-20 10:01] LABS: ALANINE AMINOTRANSFERASE 27 U/L (12-78); ALBUMIN/GLOBULIN RATIO 0.5 (1.0-2.7); ALKALINE PHOSPHATASE 160 U/L (46-116); ANION GAP 8 mmol/L (5-15); ASPARTATE AMINO TRANSFERASE 35 U/L (15-37); BILIRUBIN,TOTAL 0.3 MG/DL (0.2-1.0); BLOOD UREA NITROGEN 28 mg/dL (7-18); CALCIUM 9.8 MG/DL (8.5-10.1); CARBON DIOXIDE 27 MMOL/L (21-32); CHLORIDE 104 MMOL/L (98-107); CREATININE 1.2 MG/DL (0.55-1.30); PHOSPHORUS 5.2 MG/DL (2.5-4.9); POTASSIUM 4.2 MMOL/L (3.5-5.1); SODIUM 138 MMOL/L (136-145)
[2017-12-20] MEDS: D5 1/2NS w/KCl 20mEq 1,000 ML IV SCH ×2 (10:05→21:26)
--- NOTE | 2017-12-20 10:17 | Wound Care Consultation ---
Wound Assessment Wound Assessment : Wound Number: 1 Wound Present on Admission: Yes New Wound: No Status Change of Wound: No Wound Location Body Site Modif: left, right Wound Location Body Site: axilla Wound Type: rash Irma Test: Does not Irma Percent of Wound Pacific/Red: 100 Wound Drainage Amount: None Wound Drainage Odor: None/Absent Tissue Surrounding Wound: Erythemic Wound General Appearance: Reddened Wound Comment #1 Left and right axilla craig rashes #2 Right anterior 1st and 2nd toe with dry scabs Recommendation -Local wound care per protocol -Offload heel -Heel protector -Low air loss mattress -Turn and reposition -Keep clean and dry -Optimize nutrition -Assess and f/u accordingly for any changes JOSE LEWIS RN Dec 20, 2017 10:17
--- NOTE | 2017-12-20 11:15 | Procedure Note ---
DATE OF PROCEDURE: 12/20/2017 SURGEON: Tano Dominguez M.D. ANESTHESIOLOGIST: Daniele Aguirre M.D. REFERRING PHYSICIAN: Den Moreau D.O. PROCEDURE: Colonoscopy with biopsy. ANESTHESIA: Per Dr. Aguirre. INSTRUMENT: Olympus adult flexible colonoscope. The procedure, risks, benefits, and possible consequences, including hemorrhage, aspiration, perforation and infection, and alternative treatments, were explained to the patient/legal guardian by Dr. Tano Dominguez and the patient/legal guardian understood and accepted these risks. INDICATION: Anemia. DESCRIPTION OF PROCEDURE: After informed consent was obtained and the patient was adequately sedated, first rectal exam was performed which showed positive for internal hemorrhoids. Then, the scope was advanced from the rectum into the transverse to hepatic flexure area. We could not advance the scope beyond this point because the positioning was very difficult. The patient had two polyps and both of them were removed with the cold biopsy forceps technique. These polyps were each of about 5 mm, one in transverse colon and one in the sigmoid colon. Retroflexion of rectum showed evidence of internal hemorrhoids. The patient tolerated the procedure well without any complication. SUMMARY OF FINDINGS: 1. The scope was advanced up to the hepatic flexure area. 2. Two colonic polyps removed, see above for details. 3. Internal hemorrhoids. RECOMMENDATIONS: 1. Follow up biopsies and treat accordingly. 2. We will resume diet. I want to thank Dr. Den Moreau for this kind referral. Tano Dominguez M.D. DR: Sam JOB#: [id number] CC: Den Moreau D.O.
[2017-12-20 12:00] VITALS: BP 119/67
--- NOTE | 2017-12-20 12:16 | Pulmonology Progress Note ---
Assessment/Plan Problems: (1) Chronic respiratory failure (2) Lower GI bleeding (3) Anemia (4) Generalized weakness (5) History of pacemaker (6) Feeding by G-tube (7) Tracheostomy present (8) Schizophrenia Respiratory: monitor respiratory rate, adjust FIO2 Cardiac: continue to monitor HR/BP Renal: F/U I&O Infectious Disease: check cultures Gastrointestinal: continue feedings/current rate Endocrine: monitor blood sugar, check HgA1C, continue sliding scale insulin Hematologic: monitor H/H, transfuse if hgb<8.5 Neurologic: PRN Ativan, keep patient comfortable Prophylaxis: Protonix, Heparin Notes Reviewed: 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 with: nurses, consultants, patient case coordinator, family member Subjective ROS Limited/Unobtainable: No Constitutional: Reports: no symptoms HEENT: Repors: no symptoms Respiratory: Reports: no symptoms Allergies: Coded Allergies: CHLORPROMAZINE (Verified Allergy, Unknown, 06/23/17) ERYTHROMYCIN BASE (Verified Allergy, Unknown, 06/23/17) Uncoded Allergies: TAPE (Allergy, Unknown, 06/23/17) Objective Last 24 Hour Vital Signs Date Time Temp Pulse Resp B/P (MAP) Pulse Ox O2 Delivery O2 Flow Rate FiO2 12/20/17 10:48 60 15 30 12/20/17 09:18 69 16 30 12/20/17 08:00 97.3 70 16 139/67 99 Mechanical Ventilator 30 97.3 12/20/17 08:00 73 12/20/17 08:00 30 12/20/17 06:36 60 14 30 12/20/17 05:05 74 18 30 12/20/17 04:00 30 12/20/17 04:00 97.7 74 20 119/66 95 Mechanical Ventilator 30 97.7 12/20/17 04:00 60 12/20/17 03:30 67 14 30 12/20/17 01:26 60 14 30 12/20/17 00:00 97.7 61 20 96/56 97 Mechanical Ventilator 30 97.7 12/20/17 00:00 30 12/20/17 00:00 83 12/19/17 23:18 60 14 30 12/19/17 21:25 60 14 30 12/19/17 20:00 30 12/19/17 20:00 60 12/19/17 20:00 97.7 60 20 106/64 99 Mechanical Ventilator 30 97.7 12/19/17 19:15 72 16 30 12/19/17 17:07 62 14 30 12/19/17 16:00 30 12/19/17 16:00 61 12/19/17 14:53 60 14 30 12/19/17 13:22 56 14 100 12/19/17 13:06 60 14 30 Intake and Output 12/19/17 12/20/17 19:00 07:00 Intake Total 135 ml 4900 ml Output Total 1200 ml 1200 ml Balance -1065 ml 3700 ml Free Water 60 ml IV Total 75 ml 900 ml Other 4000 ml Output Urine Total 1200 ml 1200 ml # Bowel Movements 10 General Appearance: WD/WN HEENT: normocephalic, atraumatic Cardiovascular: normal peripheral pulses, regular rhythm Abdomen: normal bowel sounds, soft, non tender, no scars Extremities: no cyanosis Skin: no rash, no lesions, no ulcers Microbiology Date/Time Source Procedure Growth Status 12/17/17 19:36 Blood Blood Culture - Preliminary NO GROWTH AFTER 48 HOURS Resulted 12/17/17 19:21 Blood Blood Culture - Preliminary NO GROWTH AFTER 48 HOURS Resulted Laboratory Tests 12/20/17 06:30: Stool Occult Blood Negative 12/20/17 08:25: White Blood Count 8.4, Red Blood Count 3.64L, Hemoglobin 10.7L, Hematocrit 32.9L , Mean Corpuscular Volume 90, Mean Corpuscular Hemoglobin 29.3, Mean Corpuscular Hemoglobin Concent 32.4, Red Cell Distribution Width 14.7, Platelet Count 251, Mean Platelet Volume 5.5L, Neutrophils (%) (Auto) 62.7, Lymphocytes ( %) (Auto) 22.2, Monocytes (%) (Auto) 8.0, Eosinophils (%) (Auto) 5.9H, Basophils (%) (Auto) 1.1, Sodium Level 138, Potassium Level 4.2, Chloride Level 104, Carbon Dioxide Level 27, Anion Gap 8, Blood Urea Nitrogen 28H, Creatinine 1.2, Estimat Glomerular Filtration Rate 59.9, Glucose Level 83, Calcium Level 9.8, Phosphorus Level 5.2H, Magnesium Level 2.3, Total Bilirubin 0.3, Aspartate Amino Transf (AST/SGOT) 35, Alanine Aminotransferase (ALT/SGPT) 27, Alkaline Phosphatase 160H, Total Protein 8.5H, Albumin 3.0L, Globulin 5.5, Albumin/ Globulin Ratio 0.5L Current Medications Medications (Trade) Dose Ordered Sig/Karen Route PRN Reason Start Time Stop Time Status Last Admin Dose Admin Acetaminophen (Tylenol) 650 mg Q4H PRN ORAL FEVER 12/17/17 21:00 01/16/18 20:59 12/18/17 20:51 Al Hydroxide/Mg Hydroxide (Mylanta) 15 ml Q1H PRN ORAL gi upset 12/19/17 06:45 Albuterol/ Ipratropium (Albuterol/ Ipratropium) 3 ml Q4H PRN HHN Shortness of Breath 12/17/17 21:00 12/22/17 20:59 Atropine Sulfate (Atropine) 0.5 mg Q5M PRN IV bpm less than 45 12/19/17 06:45 Carbamazepine (TEGretol) 200 mg FOUR TIMES A DAY GT 12/19/17 22:15 01/18/18 22:14 12/19/17 21:31 Chlorhexidine Gluconate (Cassandra-Hex 2%) 1 applic DAILY@1999 TOPIC 12/19/17 20:00 01/18/18 19:59 Clotrimazole (Lotrimin) 1 applic EVERY 12 HOURS TOPIC 12/18/17 21:00 01/17/18 20:59 12/19/17 21:32 Clotrimazole (Lotrimin) 1 applic EVERY 12 HOURS TOPIC 12/20/17 21:00 01/19/18 20:59 Dextrose (Dextrose 50%) 25 ml STAT PRN IV HYPOGLYCEMIA 12/18/17 08:45 01/17/18 08:44 Dextrose (Dextrose 50%) 50 ml STAT PRN IV Hypoglycemia 12/18/17 09:30 01/17/18 09:29 Dextrose/ Electrolytes 1,000 ml @ 75 mls/hr [id number] IV 12/19/17 18:00 01/18/18 17:59 12/20/17 10:05 Diphenhydramine HCl (Benadryl) 25 mg Q15M PRN IVP Itching 12/19/17 06:45 Fentanyl Citrate (Sublimaze 100 mcg/2 mL) 25 mcg Q10M PRN IV Moderate Pain (Pain Scale 4-6) 12/19/17 06:45 Heparin Sodium/ Sodium Chloride (Heparin 2000 units/Ns 1000ml premix) 2,000 unit ONCE INJ 12/19/17 17:00 12/20/17 23:59 Hydralazine HCl (Apresoline) 5 mg Q30M PRN IV SBP>160 OR___/DBP>90 OR___ 12/19/17 06:45 Insulin Aspart (NovoLOG) EVERY 6 HOURS SUBQ 12/18/17 12:00 01/17/18 11:59 Levetiracetam (Keppra) 500 mg TWICE A DAY ORAL 12/17/17 22:00 01/16/18 21:59 12/19/17 18:48 Lidocaine HCl (Xylocaine 1% 30ml) 30 ml ONCE INJ 12/19/17 17:00 12/20/17 16:59 Lorazepam (Ativan 2mg/ml 1ml) 2 mg Q2H PRN IV For Anxiety 12/17/17 21:00 12/24/17 20:59 Midazolam HCl (Versed 2mg/2ml vial) 1 mg Q15M PRN IVP For Anxiety 12/19/17 06:45 Midodrine (Pro-Amatine) 5 mg BID GT 12/18/17 09:00 01/17/18 08:59 12/19/17 18:48 Morphine Sulfate (Morphine Sulfate) 4 mg Q4H PRN IVP Severe Pain (Pain Scale 7-10) 12/17/17 21:00 12/24/17 20:59 Olanzapine (ZyPREXA) 15 mg DAILY GT 12/18/17 09:00 01/17/18 08:59 12/19/17 10:38 Ondansetron HCl (Zofran) 4 mg Q1H PRN IVP Nausea & Vomiting 12/19/17 06:45 Ondansetron HCl (Zofran) 4 mg Q6H PRN IVP Nausea & Vomiting 12/17/17 21:00 01/16/18 20:59 Pantoprazole (Protonix) 40 mg DAILY ORAL 12/19/17 09:00 01/18/18 08:59 12/19/17 09:00 Polyethylene Glycol (Miralax) 17 gm DAILYPRN PRN ORAL Constipation 12/17/17 21:00 01/16/18 20:59 Quetiapine Fumarate (SEROquel) 200 mg BEDTIME ORAL 4/4/18 21:00 01/17/18 08:59 12/19/17 21:31 Naheed Espinoza MD Dec 20, 2017 12:16
--- NOTE | 2017-12-20 12:57 | General Progress Note ---
Assessment/Plan Problem List: (1) GIB (gastrointestinal bleeding) ICD Codes: K92.2 - Gastrointestinal hemorrhage, unspecified SNOMED: 83001934 (2) Weak ICD Codes: R53.1 - Weakness SNOMED: 34035921 (3) Dehydration ICD Codes: E86.0 - Dehydration SNOMED: 67221086 (4) Anemia ICD Codes: D64.9 - Anemia, unspecified SNOMED: 093788451 (5) Chronic respiratory failure ICD Codes: J96.10 - Chronic respiratory failure, unspecified whether with hypoxia or hypercapnia SNOMED: 62671131 (6) Elevated BUN ICD Codes: R79.9 - Abnormal finding of blood chemistry, unspecified SNOMED: 012701046 Status: unchanged Assessment/Plan vent abx ot pt diet ivf cbc bmp am ltach eval Subjective Constitutional: Reports: weakness Allergies: Coded Allergies: CHLORPROMAZINE (Verified Allergy, Unknown, 06/23/17) ERYTHROMYCIN BASE (Verified Allergy, Unknown, 06/23/17) Uncoded Allergies: TAPE (Allergy, Unknown, 06/23/17) All Systems: reviewed and negative except above Subjective trach vent altered Objective Last 24 Hour Vital Signs Date Time Temp Pulse Resp B/P (MAP) Pulse Ox O2 Delivery O2 Flow Rate FiO2 12/20/17 12:00 97.9 63 14 119/67 99 Mechanical Ventilator 30 97.9 12/20/17 12:00 30 12/20/17 10:48 60 15 30 12/20/17 09:18 69 16 30 12/20/17 08:00 97.3 70 16 139/67 99 Mechanical Ventilator 30 97.3 12/20/17 08:00 73 12/20/17 08:00 30 12/20/17 06:36 60 14 30 12/20/17 05:05 74 18 30 12/20/17 04:00 30 12/20/17 04:00 97.7 74 20 119/66 95 Mechanical Ventilator 30 97.7 12/20/17 04:00 60 12/20/17 03:30 67 14 30 12/20/17 01:26 60 14 30 12/20/17 00:00 97.7 61 20 96/56 97 Mechanical Ventilator 30 97.7 12/20/17 00:00 30 12/20/17 00:00 83 12/19/17 23:18 60 14 30 12/19/17 21:25 60 14 30 12/19/17 20:00 30 12/19/17 20:00 60 12/19/17 20:00 97.7 60 20 106/64 99 Mechanical Ventilator 30 97.7 12/19/17 19:15 72 16 30 12/19/17 17:07 62 14 30 12/19/17 16:00 30 12/19/17 16:00 61 12/19/17 14:53 60 14 30 12/19/17 13:22 56 14 100 12/19/17 13:06 60 14 30 Intake and Output 12/19/17 12/20/17 19:00 07:00 Intake Total 135 ml 4900 ml Output Total 1200 ml 1200 ml Balance -1065 ml 3700 ml Free Water 60 ml IV Total 75 ml 900 ml Other 4000 ml Output Urine Total 1200 ml 1200 ml # Bowel Movements 10 Laboratory Tests 12/20/17 06:30: Stool Occult Blood Negative 12/20/17 08:25: White Blood Count 8.4, Red Blood Count 3.64L, Hemoglobin 10.7L, Hematocrit 32.9L , Mean Corpuscular Volume 90, Mean Corpuscular Hemoglobin 29.3, Mean Corpuscular Hemoglobin Concent 32.4, Red Cell Distribution Width 14.7, Platelet Count 251, Mean Platelet Volume 5.5L, Neutrophils (%) (Auto) 62.7, Lymphocytes ( %) (Auto) 22.2, Monocytes (%) (Auto) 8.0, Eosinophils (%) (Auto) 5.9H, Basophils (%) (Auto) 1.1, Sodium Level 138, Potassium Level 4.2, Chloride Level 104, Carbon Dioxide Level 27, Anion Gap 8, Blood Urea Nitrogen 28H, Creatinine 1.2, Estimat Glomerular Filtration Rate 59.9, Glucose Level 83, Calcium Level 9.8, Phosphorus Level 5.2H, Magnesium Level 2.3, Total Bilirubin 0.3, Aspartate Amino Transf (AST/SGOT) 35, Alanine Aminotransferase (ALT/SGPT) 27, Alkaline Phosphatase 160H, Total Protein 8.5H, Albumin 3.0L, Globulin 5.5, Albumin/ Globulin Ratio 0.5L Height (Feet): 6 Height (Inches): 3.00 Weight (Pounds): 231 General Appearance: lethargic EENT: normal ENT inspection Neck: normal alignment Cardiovascular: normal peripheral pulses, normal rate, regular rhythm Respiratory/Chest: chest wall non-tender, lungs clear, normal breath sounds Abdomen: normal bowel sounds, non tender, soft Extremities: normal inspection Edema: no edema noted Arm (L), no edema noted Arm (R), no edema noted Leg (L), no edema noted Leg (R), no edema noted Pedal (L), no edema noted Pedal (R), no edema noted Generalized Neurologic: motor weakness Skin: normal pigmentation, warm/dry QUINTON HUMPHRIES Dec 20, 2017 12:57
--- NOTE | 2017-12-20 13:52 | Diagnostic Imaging Report ---
Indications: Needs long-term IV access Technique: Procedure performed at bedside. Procedural timeout performed. Ultrasound confirms patent compressible left brachial vein. Total sterile technique, including sterile probe cover and sterile gel, sterile gloves, hand hygiene, hat, mask,, sterile gown, large sterile drape, and preparation with 2% chlorhexidine utilized. Local anesthesia with 1% lidocaine. Under real-time ultrasound guidance, puncture brachial vein using 21-gauge needle, passage 0.018 guidewire, exchange for 5 [place]alan peel-away sheath. 5 [place] Bard dual-lumen power PICC cut to 43 cm. It was inserted through the peel-away sheath. Peel-away sheath and guidewire removed. Catheter fixed to the skin. Both catheter ports aspirated and flushed. Patient tolerated procedure well, without immediate complication. Followup chest x-ray obtained, documents catheter tip position at the high right atrium Impression: Successful bedside placement of left arm PICC under sonographic guidance, as described above.
[2017-12-20 16:00] VITALS: BP 102/61
[2017-12-20] MEDS: Heparin 2000 units/Ns 1000ml INJ SCH (16:32)
[2017-12-20 20:00] VITALS: BP 100/56
--- NOTE | 2017-12-20 20:30 | Consultation ---
DATE OF CONSULTATION: 12/20/2017 CONSULTING PHYSICIAN: Devon Castillo M.D. HISTORY OF PRESENT ILLNESS: The patient is a 72-year-old male patient with generalized weakness. This patient is confused and disorganized. His mood is labile. Cognition has declined below baseline, worsened by stress of his medical illness. Increased agitation and mood lability as a result of his medical illness. MENTAL STATUS EXAMINATION: This is a 72-year-old male with psychomotor agitation. Mood is irritable and agitated. Affect is guarded and restricted. Thought process, disorganized and illogical. Appearance is disheveled. Attitude is irritable and agitated. Intellect poor. Mood is depressed and anxious. Motor activity, psychomotor agitation. Attention span is poor. Orientation x2. Speech is pressured. Thought process, disorganized and illogical. Thought content, auditory hallucinations and paranoid delusions. Insight and judgment is poor. . DIAGNOSIS: Schizoaffective, bipolar type. PLAN: Treat him with Zyprexa 50 mg per G-tube daily, Seroquel 200 mg at bedtime, and Tegretol 200 mg four times a day. Provide 18 to 20 minutes of supportive therapy. Chart reviewed and discussed with staff. Seen and assessed at bedside. Devon Castillo M.D. DR: JAYNA JOB#: [id number] CC:
--- NOTE | 2017-12-20 20:54 | Infectious Diseases Prog Note ---
Assessment/Plan Assessment/Plan ASSESSMENT: The patient is a 72-year-old male with: Probable lower GI bleed ? gross versus just occult. Mild elevation of alkaline phosphatase, however, no significance at this time. Doubt pneumonia, the patient has no significant cough. Afebrile. Normal white blood cells SP Colonoscopy : Polyp x 2 12/20 SP EGD : gastritis 12/19 Seizures Pacemaker Hypertension COPD Ventilator-dependent respiratory failure History of trach History of IVC filter History of CKD Anemia PLAN: will monitor the patient off of antibiotics. Monitor CBC and BMP. cultures (blood and sputum) Subjective Allergies: Coded Allergies: CHLORPROMAZINE (Verified Allergy, Unknown, 06/23/17) ERYTHROMYCIN BASE (Verified Allergy, Unknown, 06/23/17) Uncoded Allergies: TAPE (Allergy, Unknown, 06/23/17) Subjective EGD today Objective Vital Signs Last 24 Hour Vital Signs Date Time Temp Pulse Resp B/P (MAP) Pulse Ox O2 Delivery O2 Flow Rate FiO2 12/20/17 20:43 60 14 30 12/20/17 19:32 63 12/20/17 18:58 60 14 30 12/20/17 16:38 60 15 30 12/20/17 16:00 97.9 60 18 102/61 98 Mechanical Ventilator 30 97.9 12/20/17 16:00 30 12/20/17 16:00 60 12/20/17 15:00 60 16 30 12/20/17 13:05 69 19 30 12/20/17 12:00 97.9 63 14 119/67 99 Mechanical Ventilator 30 97.9 12/20/17 12:00 30 12/20/17 12:00 60 12/20/17 10:48 60 15 30 12/20/17 09:18 69 16 30 12/20/17 08:00 97.3 70 16 139/67 99 Mechanical Ventilator 30 97.3 12/20/17 08:00 73 12/20/17 08:00 30 12/20/17 06:36 60 14 30 12/20/17 05:05 74 18 30 12/20/17 04:00 30 12/20/17 04:00 97.7 74 20 119/66 95 Mechanical Ventilator 30 97.7 12/20/17 04:00 60 12/20/17 03:30 67 14 30 12/20/17 01:26 60 14 30 12/20/17 00:00 97.7 61 20 96/56 97 Mechanical Ventilator 30 97.7 12/20/17 00:00 30 12/20/17 00:00 83 12/19/17 23:18 60 14 30 12/19/17 21:25 60 14 30 Height (Feet): 6 Height (Inches): 3.00 Weight (Pounds): 231 HEENT: mucous membranes moist Respiratory/Chest: no accessory muscle use Cardiovascular: regular rhythm Abdomen: non distended Laboratory Tests Test 12/20/17 06:30 12/20/17 08:25 Stool Occult Blood Negative (NEGATIVE) White Blood Count 8.4 K/UL (4.8-10.8) Red Blood Count 3.64 M/UL (4.70-6.10) L Hemoglobin 10.7 G/DL (14.2-18.0) L Hematocrit 32.9 % (42.0-52.0) L Mean Corpuscular Volume 90 FL (80-99) Mean Corpuscular Hemoglobin 29.3 PG (27.0-31.0) Mean Corpuscular Hemoglobin Concent 32.4 G/DL (32.0-36.0) Red Cell Distribution Width 14.7 % (11.6-14.8) Platelet Count 251 K/UL (150-450) Mean Platelet Volume 5.5 FL (6.5-10.1) L Neutrophils (%) (Auto) 62.7 % (45.0-75.0) Lymphocytes (%) (Auto) 22.2 % (20.0-45.0) Monocytes (%) (Auto) 8.0 % (1.0-10.0) Eosinophils (%) (Auto) 5.9 % (0.0-3.0) H Basophils (%) (Auto) 1.1 % (0.0-2.0) Sodium Level 138 MMOL/L (136-145) Potassium Level 4.2 MMOL/L (3.5-5.1) Chloride Level 104 MMOL/L (98-107) Carbon Dioxide Level 27 MMOL/L (21-32) Anion Gap 8 mmol/L (5-15) Blood Urea Nitrogen 28 mg/dL (7-18) H Creatinine 1.2 MG/DL (0.55-1.30) Estimat Glomerular Filtration Rate 59.9 mL/min (>60) Glucose Level 83 MG/DL (74-106) Calcium Level 9.8 MG/DL (8.5-10.1) Phosphorus Level 5.2 MG/DL (2.5-4.9) H Magnesium Level 2.3 MG/DL (1.8-2.4) Total Bilirubin 0.3 MG/DL (0.2-1.0) Aspartate Amino Transf (AST/SGOT) 35 U/L (15-37) Alanine Aminotransferase (ALT/SGPT) 27 U/L (12-78) Alkaline Phosphatase 160 U/L (46-116) H Total Protein 8.5 G/DL (6.4-8.2) H Albumin 3.0 G/DL (3.4-5.0) L Globulin 5.5 g/dL Albumin/Globulin Ratio 0.5 (1.0-2.7) L Current Medications Medications (Trade) Dose Ordered Sig/Karen Route PRN Reason Start Time Stop Time Status Last Admin Dose Admin Acetaminophen (Tylenol) 650 mg Q4H PRN ORAL FEVER 12/17/17 21:00 01/16/18 20:59 12/18/17 20:51 Al Hydroxide/Mg Hydroxide (Mylanta) 15 ml Q1H PRN ORAL gi upset 12/19/17 06:45 Albuterol/ Ipratropium (Albuterol/ Ipratropium) 3 ml Q4H PRN HHN Shortness of Breath 12/17/17 21:00 12/22/17 20:59 Atropine Sulfate (Atropine) 0.5 mg Q5M PRN IV bpm less than 45 12/19/17 06:45 Carbamazepine (TEGretol) 200 mg FOUR TIMES A DAY GT 12/19/17 22:15 01/18/18 22:14 12/20/17 18:10 Chlorhexidine Gluconate (Cassandra-Hex 2%) 1 applic DAILY@1999 TOPIC 12/19/17 20:00 01/18/18 19:59 Clotrimazole (Lotrimin) 1 applic EVERY 12 HOURS TOPIC 12/18/17 21:00 01/17/18 20:59 12/19/17 21:32 Clotrimazole (Lotrimin) 1 applic EVERY 12 HOURS TOPIC 12/20/17 21:00 01/19/18 20:59 Dextrose (Dextrose 50%) 25 ml STAT PRN IV HYPOGLYCEMIA 12/18/17 08:45 01/17/18 08:44 Dextrose (Dextrose 50%) 50 ml STAT PRN IV Hypoglycemia 12/18/17 09:30 01/17/18 09:29 Dextrose/ Electrolytes 1,000 ml @ 75 mls/hr [id number] IV 12/19/17 18:00 01/18/18 17:59 12/20/17 10:05 Diphenhydramine HCl (Benadryl) 25 mg Q15M PRN IVP Itching 12/19/17 06:45 Fentanyl Citrate (Sublimaze 100 mcg/2 mL) 25 mcg Q10M PRN IV Moderate Pain (Pain Scale 4-6) 12/19/17 06:45 Heparin Sodium/ Sodium Chloride (Heparin 2000 units/Ns 1000ml premix) 2,000 unit ONCE INJ 12/19/17 17:00 12/20/17 23:59 12/20/17 16:32 Hydralazine HCl (Apresoline) 5 mg Q30M PRN IV SBP>160 OR___/DBP>90 OR___ 12/19/17 06:45 Insulin Aspart (NovoLOG) EVERY 6 HOURS SUBQ 12/18/17 12:00 01/17/18 11:59 Levetiracetam (Keppra) 500 mg TWICE A DAY ORAL 12/17/17 22:00 01/16/18 21:59 12/20/17 18:10 Lorazepam (Ativan 2mg/ml 1ml) 2 mg Q2H PRN IV For Anxiety 12/17/17 21:00 12/24/17 20:59 Midazolam HCl (Versed 2mg/2ml vial) 1 mg Q15M PRN IVP For Anxiety 12/19/17 06:45 Midodrine (Pro-Amatine) 5 mg BID GT 12/18/17 09:00 01/17/18 08:59 12/20/17 18:10 Morphine Sulfate (Morphine Sulfate) 4 mg Q4H PRN IVP Severe Pain (Pain Scale 7-10) 12/17/17 21:00 12/24/17 20:59 Olanzapine (ZyPREXA) 15 mg DAILY GT 12/18/17 09:00 01/17/18 08:59 12/19/17 10:38 Ondansetron HCl (Zofran) 4 mg Q1H PRN IVP Nausea & Vomiting 12/19/17 06:45 Ondansetron HCl (Zofran) 4 mg Q6H PRN IVP Nausea & Vomiting 12/17/17 21:00 01/16/18 20:59 Pantoprazole (Protonix) 40 mg DAILY ORAL 12/19/17 09:00 01/18/18 08:59 12/19/17 09:00 Polyethylene Glycol (Miralax) 17 gm DAILYPRN PRN ORAL Constipation 12/17/17 21:00 01/16/18 20:59 Quetiapine Fumarate (SEROquel) 200 mg BEDTIME ORAL 12/18/17 21:00 01/17/18 08:59 12/19/17 21:31 Shayan Ricci MD Dec 20, 2017 20:54
[2017-12-20] MEDS: Dyna-Hex 2% Top Sol 2oz TOPIC SCH (21:25)
[2017-12-20] MEDS: QUEtiapine 200mg tab ORAL SCH (21:26)
[2017-12-21] VITALS: BP 100/62
[2017-12-21] MEDS: NovoLOG Insulin Flexpen SUBQ SCH ×4 (00:34→18:31)
[2017-12-21 04:00] VITALS: BP 106/64
[2017-12-21 06:17] LABS: BASOPHILS % (AUTO) 1.1 % (0.0-2.0); EOSINOPHILS % (AUTO) 5.6 % (0.0-3.0); HEMATOCRIT 28.5 % (42.0-52.0); HEMOGLOBIN 9.9 G/DL (14.2-18.0); LYMPHOCYTES % (AUTO) 28.9 % (20.0-45.0); MEAN CORPUSCULAR VOLUME 89 FL (80-99); MONOCYTES % (AUTO) 9.1 % (1.0-10.0); NEUTROPHILS % (AUTO) 55.3 % (45.0-75.0); PLATELET COUNT 225 K/UL (150-450); RED BLOOD COUNT 3.18 M/UL (4.70-6.10); RED CELL DISTRIBUTION WIDTH 15.1 % (11.6-14.8); WHITE BLOOD COUNT 6.9 K/UL (4.8-10.8)
[2017-12-21 06:38] LABS: ALANINE AMINOTRANSFERASE 28 U/L (12-78); ALBUMIN 2.8 G/DL (3.4-5.0); ALBUMIN/GLOBULIN RATIO 0.5 (1.0-2.7); ALKALINE PHOSPHATASE 140 U/L (46-116); ANION GAP 7 mmol/L (5-15); ASPARTATE AMINO TRANSFERASE 30 U/L (15-37); BILIRUBIN,TOTAL 0.2 MG/DL (0.2-1.0); BLOOD UREA NITROGEN 23 mg/dL (7-18); CALCIUM 9.3 MG/DL (8.5-10.1); CARBON DIOXIDE 26 MMOL/L (21-32); CHLORIDE 104 MMOL/L (98-107); CREATININE 1.1 MG/DL (0.55-1.30); POTASSIUM 3.9 MMOL/L (3.5-5.1); SODIUM 137 MMOL/L (136-145)
[2017-12-21 08:00] VITALS: BP 106/58
[2017-12-21] MEDS: carBAMazepine 200mg tab GT SCH ×4 (09:58→21:06)
[2017-12-21] MEDS: D5 1/2NS w/KCl 20mEq 1,000 ML IV SCH (10:00)
--- NOTE | 2017-12-21 10:03 | General Progress Note ---
Assessment/Plan Problem List: (1) GIB (gastrointestinal bleeding) ICD Codes: K92.2 - Gastrointestinal hemorrhage, unspecified SNOMED: 93999346 (2) Weak ICD Codes: R53.1 - Weakness SNOMED: 89197601 (3) Dehydration ICD Codes: E86.0 - Dehydration SNOMED: 40963810 (4) Anemia ICD Codes: D64.9 - Anemia, unspecified SNOMED: 950976407 (5) Chronic respiratory failure ICD Codes: J96.10 - Chronic respiratory failure, unspecified whether with hypoxia or hypercapnia SNOMED: 78731997 (6) Elevated BUN ICD Codes: R79.9 - Abnormal finding of blood chemistry, unspecified SNOMED: 507720610 Status: unchanged Assessment/Plan vent abx ot pt diet ivf cbc bmp am ltach eval Subjective Allergies: Coded Allergies: CHLORPROMAZINE (Verified Allergy, Unknown, 06/23/17) ERYTHROMYCIN BASE (Verified Allergy, Unknown, 06/23/17) Uncoded Allergies: TAPE (Allergy, Unknown, 06/23/17) All Systems: reviewed and negative except above Subjective trach vent altered Objective Last 24 Hour Vital Signs Date Time Temp Pulse Resp B/P (MAP) Pulse Ox O2 Delivery O2 Flow Rate FiO2 12/21/17 08:32 73 15 30 12/21/17 06:44 60 14 30 12/21/17 05:04 61 14 30 12/21/17 04:00 98.2 60 14 106/64 96 Mechanical Ventilator 30 98.2 12/21/17 04:00 30 12/21/17 03:37 60 12/21/17 03:00 60 14 30 12/21/17 00:56 77 16 30 12/21/17 00:00 30 12/21/17 00:00 97.9 60 14 100/62 97 Mechanical Ventilator 30 97.9 12/20/17 23:36 60 12/20/17 22:51 80 15 30 12/20/17 20:43 60 14 30 12/20/17 20:00 98.4 60 14 100/56 97 Mechanical Ventilator 30 98.4 12/20/17 20:00 30 12/20/17 19:32 63 12/20/17 18:58 60 14 30 12/20/17 16:38 60 15 30 12/20/17 16:00 97.9 60 18 102/61 98 Mechanical Ventilator 30 97.9 12/20/17 16:00 30 12/20/17 16:00 60 12/20/17 15:00 60 16 30 12/20/17 13:05 69 19 30 12/20/17 12:00 97.9 63 14 119/67 99 Mechanical Ventilator 30 97.9 12/20/17 12:00 30 12/20/17 12:00 60 12/20/17 10:48 60 15 30 Intake and Output 12/20/17 12/21/17 19:00 07:00 Intake Total 895 ml 1110 ml Output Total 300 ml 800 ml Balance 595 ml 310 ml Free Water 150 ml 140 ml IV Total 675 ml 750 ml Tube Feeding 70 ml 220 ml Output Urine Total 300 ml 800 ml # Bowel Movements 1 Laboratory Tests 12/21/17 05:00: White Blood Count 6.9, Red Blood Count 3.18L, Hemoglobin 9.9L, Hematocrit 28.5L , Mean Corpuscular Volume 89, Mean Corpuscular Hemoglobin 31.1H, Mean Corpuscular Hemoglobin Concent 34.8, Red Cell Distribution Width 15.1H, Platelet Count 225, Mean Platelet Volume 5.7L, Neutrophils (%) (Auto) 55.3, Lymphocytes (%) (Auto) 28.9, Monocytes (%) (Auto) 9.1, Eosinophils (%) (Auto) 5.6H, Basophils (%) (Auto) 1.1, Sodium Level 137, Potassium Level 3.9, Chloride Level 104, Carbon Dioxide Level 26, Anion Gap 7, Blood Urea Nitrogen 23H, Creatinine 1.1, Estimat Glomerular Filtration Rate > 60, Glucose Level 103, Calcium Level 9.3, Phosphorus Level 5.0H, Magnesium Level 2.1, Total Bilirubin 0.2, Aspartate Amino Transf (AST/SGOT) 30, Alanine Aminotransferase (ALT/SGPT) 28, Alkaline Phosphatase 140H, Total Protein 8.0, Albumin 2.8L, Globulin 5.2, Albumin/Globulin Ratio 0.5L Height (Feet): 6 Height (Inches): 3.00 Weight (Pounds): 231 General Appearance: lethargic EENT: normal ENT inspection Neck: normal alignment Cardiovascular: normal peripheral pulses, normal rate, regular rhythm Respiratory/Chest: chest wall non-tender, lungs clear, normal breath sounds Abdomen: normal bowel sounds, non tender, soft Extremities: normal inspection Edema: no edema noted Arm (L), no edema noted Arm (R), no edema noted Leg (L), no edema noted Leg (R), no edema noted Pedal (L), no edema noted Pedal (R), no edema noted Generalized Neurologic: motor weakness Skin: normal pigmentation, warm/dry QUINTON HUMPHRIES Dec 21, 2017 10:03
--- NOTE | 2017-12-21 10:30 | Pulmonology Progress Note ---
Assessment/Plan Problems: (1) Chronic respiratory failure (2) Lower GI bleeding (3) Anemia (4) Generalized weakness (5) History of pacemaker (6) Feeding by G-tube (7) Tracheostomy present (8) Schizophrenia Respiratory: monitor respiratory rate, adjust FIO2, CXR Cardiac: continue to monitor HR/BP Renal: F/U I&O, keep IV fluid Infectious Disease: check cultures Gastrointestinal: continue feedings/current rate Endocrine: monitor blood sugar, check HgA1C, continue sliding scale insulin Hematologic: monitor H/H, transfuse if hgb<8.5 Neurologic: PRN Ativan, PRN Morphine, keep patient comfortable Affect: PRN ativan Prophylaxis: Protonix, Heparin Notes Reviewed: cardio, 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 with: nurses, consultants, senior case manager Subjective ROS Limited/Unobtainable: No Constitutional: Reports: no symptoms HEENT: Repors: no symptoms Respiratory: Reports: no symptoms Allergies: Coded Allergies: CHLORPROMAZINE (Verified Allergy, Unknown, 06/23/17) ERYTHROMYCIN BASE (Verified Allergy, Unknown, 06/23/17) Uncoded Allergies: TAPE (Allergy, Unknown, 06/23/17) Objective Last 24 Hour Vital Signs Date Time Temp Pulse Resp B/P (MAP) Pulse Ox O2 Delivery O2 Flow Rate FiO2 12/21/17 08:32 73 15 30 12/21/17 08:00 98.1 62 14 106/58 96 Mechanical Ventilator 30 98.1 12/21/17 06:44 60 14 30 12/21/17 05:04 61 14 30 12/21/17 04:00 98.2 60 14 106/64 96 Mechanical Ventilator 30 98.2 12/21/17 04:00 30 12/21/17 03:37 60 12/21/17 03:00 60 14 30 12/21/17 00:56 77 16 30 12/21/17 00:00 30 12/21/17 00:00 97.9 60 14 100/62 97 Mechanical Ventilator 30 97.9 12/20/17 23:36 60 12/20/17 22:51 80 15 30 12/20/17 20:43 60 14 30 12/20/17 20:00 98.4 60 14 100/56 97 Mechanical Ventilator 30 98.4 12/20/17 20:00 30 12/20/17 19:32 63 12/20/17 18:58 60 14 30 12/20/17 16:38 60 15 30 12/20/17 16:00 97.9 60 18 102/61 98 Mechanical Ventilator 30 97.9 12/20/17 16:00 30 12/20/17 16:00 60 12/20/17 15:00 60 16 30 12/20/17 13:05 69 19 30 12/20/17 12:00 97.9 63 14 119/67 99 Mechanical Ventilator 30 97.9 12/20/17 12:00 30 12/20/17 12:00 60 12/20/17 10:48 60 15 30 Intake and Output 12/20/17 12/21/17 19:00 07:00 Intake Total 895 ml 1110 ml Output Total 300 ml 800 ml Balance 595 ml 310 ml Free Water 150 ml 140 ml IV Total 675 ml 750 ml Tube Feeding 70 ml 220 ml Output Urine Total 300 ml 800 ml # Bowel Movements 1 General Appearance: WD/WN HEENT: status post trach Respiratory/Chest: chest wall non-tender, normal breath sounds Cardiovascular: normal peripheral pulses, normal rate Abdomen: normal bowel sounds, soft, non tender Extremities: no cyanosis Skin: no rash, no ulcers Laboratory Tests 12/21/17 05:00: White Blood Count 6.9, Red Blood Count 3.18L, Hemoglobin 9.9L, Hematocrit 28.5L , Mean Corpuscular Volume 89, Mean Corpuscular Hemoglobin 31.1H, Mean Corpuscular Hemoglobin Concent 34.8, Red Cell Distribution Width 15.1H, Platelet Count 225, Mean Platelet Volume 5.7L, Neutrophils (%) (Auto) 55.3, Lymphocytes (%) (Auto) 28.9, Monocytes (%) (Auto) 9.1, Eosinophils (%) (Auto) 5.6H, Basophils (%) (Auto) 1.1, Sodium Level 137, Potassium Level 3.9, Chloride Level 104, Carbon Dioxide Level 26, Anion Gap 7, Blood Urea Nitrogen 23H, Creatinine 1.1, Estimat Glomerular Filtration Rate > 60, Glucose Level 103, Calcium Level 9.3, Phosphorus Level 5.0H, Magnesium Level 2.1, Total Bilirubin 0.2, Aspartate Amino Transf (AST/SGOT) 30, Alanine Aminotransferase (ALT/SGPT) 28, Alkaline Phosphatase 140H, Total Protein 8.0, Albumin 2.8L, Globulin 5.2, Albumin/Globulin Ratio 0.5L Current Medications Medications (Trade) Dose Ordered Sig/Karen Route PRN Reason Start Time Stop Time Status Last Admin Dose Admin Acetaminophen (Tylenol) 650 mg Q4H PRN ORAL FEVER 12/17/17 21:00 01/16/18 20:59 12/18/17 20:51 Al Hydroxide/Mg Hydroxide (Mylanta) 15 ml Q1H PRN ORAL gi upset 12/19/17 06:45 Albuterol/ Ipratropium (Albuterol/ Ipratropium) 3 ml Q4H PRN HHN Shortness of Breath 12/17/17 21:00 12/22/17 20:59 Atropine Sulfate (Atropine) 0.5 mg Q5M PRN IV bpm less than 45 12/19/17 06:45 Carbamazepine (TEGretol) 200 mg FOUR TIMES A DAY GT 12/19/17 22:15 01/18/18 22:14 12/21/17 09:58 Chlorhexidine Gluconate (Cassandra-Hex 2%) 1 applic DAILY@2000 TOPIC 12/19/17 20:00 01/18/18 19:59 12/20/17 21:25 Clotrimazole (Lotrimin) 1 applic EVERY 12 HOURS TOPIC 12/20/17 21:00 01/19/18 20:59 12/21/17 09:59 Dextrose (Dextrose 50%) 25 ml STAT PRN IV HYPOGLYCEMIA 12/18/17 08:45 01/17/18 08:44 Dextrose (Dextrose 50%) 50 ml STAT PRN IV Hypoglycemia 12/18/17 09:30 01/17/18 09:29 Dextrose/ Electrolytes 1,000 ml @ 75 mls/hr [id number] IV 12/19/17 18:00 01/18/18 17:59 12/21/17 10:00 Diphenhydramine HCl (Benadryl) 25 mg Q15M PRN IVP Itching 12/19/17 06:45 Fentanyl Citrate (Sublimaze 100 mcg/2 mL) 25 mcg Q10M PRN IV Moderate Pain (Pain Scale 4-6) 12/19/17 06:45 Hydralazine HCl (Apresoline) 5 mg Q30M PRN IV SBP>160 OR___/DBP>90 OR___ 4/5/18 06:45 Insulin Aspart (NovoLOG) EVERY 6 HOURS SUBQ 12/18/17 12:00 01/17/18 11:59 12/21/17 00:34 Levetiracetam (Keppra) 500 mg TWICE A DAY ORAL 12/17/17 22:00 01/16/18 21:59 12/21/17 09:58 Lorazepam (Ativan 2mg/ml 1ml) 2 mg Q2H PRN IV For Anxiety 12/17/17 21:00 12/24/17 20:59 Midazolam HCl (Versed 2mg/2ml vial) 1 mg Q15M PRN IVP For Anxiety 12/19/17 06:45 Midodrine (Pro-Amatine) 5 mg BID GT 12/18/17 09:00 01/17/18 08:59 12/21/17 10:23 Morphine Sulfate (Morphine Sulfate) 4 mg Q4H PRN IVP Severe Pain (Pain Scale 7-10) 12/17/17 21:00 12/24/17 20:59 Olanzapine (ZyPREXA) 15 mg DAILY GT 12/18/17 09:00 01/17/18 08:59 12/21/17 09:58 Ondansetron HCl (Zofran) 4 mg Q1H PRN IVP Nausea & Vomiting 12/19/17 06:45 Ondansetron HCl (Zofran) 4 mg Q6H PRN IVP Nausea & Vomiting 12/17/17 21:00 01/16/18 20:59 Pantoprazole (Protonix) 40 mg DAILY ORAL 12/19/17 09:00 01/18/18 08:59 12/21/17 09:59 Polyethylene Glycol (Miralax) 17 gm DAILYPRN PRN ORAL Constipation 12/17/17 21:00 01/16/18 20:59 Quetiapine Fumarate (SEROquel) 200 mg BEDTIME ORAL 12/18/17 21:00 01/17/18 08:59 12/20/17 21:26 Naheed Espinoza MD Dec 21, 2017 10:30
[2017-12-21 12:00] VITALS: BP 109/66
[2017-12-21 16:00] VITALS: BP 107/59
[2017-12-21 20:00] VITALS: BP 100/58
[2017-12-21] MEDS: Dyna-Hex 2% Top Sol 2oz TOPIC SCH (21:05)
[2017-12-21] MEDS: QUEtiapine 200mg tab ORAL SCH (21:06)
--- NOTE | 2017-12-21 23:30 | Progress Note ---
DATE: 12/21/2017 SUBJECTIVE: The patient is a 72-year-old male patient with generalized weakness. This patient has mood lability, confusion, disorganized thought process, agitation, and irritability. That is why, his attending has requested daily psychiatric consultation. MENTAL STATUS EXAMINATION: The patient is a 72-year-old male. Appearance is disheveled, irritable, and agitated. Affect guarded and restricted. Intellect poor. Mood is depressed and anxious. Motor activity, psychomotor agitation. Attention span is poor. Orientation x2. Speech is pressured. Thought process, disorganized and illogical. Thought content, auditory hallucinations and paranoid delusions. Insight and judgment is poor. DIAGNOSIS: Schizoaffective, bipolar type. PLAN: Treat the patient with Zyprexa 15 mg per G-tube daily, Seroquel 200 mg per G-tube at bedtime, and mg four times a day. An 18 to 20 minutes of supportive therapy provided. Chart was reviewed and discussed with staff. Seen and assessed at bedside. Devon Castillo M.D. DR: LAWRENCE JOB#: [id number] CC:
[2017-12-22] VITALS: BP 100/53
[2017-12-22] MEDS: NovoLOG Insulin Flexpen SUBQ SCH ×4 (00:24→18:54)
[2017-12-22] MEDS: D5 1/2NS w/KCl 20mEq 1,000 ML IV SCH ×2 (00:30→13:56)
[2017-12-22 04:00] VITALS: BP 108/68
[2017-12-22 06:22] LABS: BASOPHILS % (AUTO) 1.2 % (0.0-2.0); EOSINOPHILS % (AUTO) 6.9 % (0.0-3.0); HEMATOCRIT 29.6 % (42.0-52.0); HEMOGLOBIN 9.7 G/DL (14.2-18.0); LYMPHOCYTES % (AUTO) 27.8 % (20.0-45.0); MEAN CORPUSCULAR VOLUME 91 FL (80-99); NEUTROPHILS % (AUTO) 55.1 % (45.0-75.0); PLATELET COUNT 242 K/UL (150-450); RED BLOOD COUNT 3.25 M/UL (4.70-6.10); RED CELL DISTRIBUTION WIDTH 15.2 % (11.6-14.8); WHITE BLOOD COUNT 6.6 K/UL (4.8-10.8)
[2017-12-22 06:32] LABS: ALANINE AMINOTRANSFERASE 29 U/L (12-78); ALBUMIN 2.8 G/DL (3.4-5.0); ALBUMIN/GLOBULIN RATIO 0.5 (1.0-2.7); ALKALINE PHOSPHATASE 137 U/L (46-116); ANION GAP 6 mmol/L (5-15); ASPARTATE AMINO TRANSFERASE 25 U/L (15-37); BILIRUBIN,TOTAL 0.1 MG/DL (0.2-1.0); BLOOD UREA NITROGEN 21 mg/dL (7-18); CARBON DIOXIDE 27 MMOL/L (21-32); CHLORIDE 105 MMOL/L (98-107); CREATININE 1.2 MG/DL (0.55-1.30); PHOSPHORUS 5.7 MG/DL (2.5-4.9); POTASSIUM 4.3 MMOL/L (3.5-5.1); SODIUM 138 MMOL/L (136-145)
[2017-12-22 08:00] VITALS: BP 110/70
[2017-12-22] MEDS: carBAMazepine 200mg tab GT SCH ×4 (08:59→21:23)
--- NOTE | 2017-12-22 08:59 | General Progress Note ---
Assessment/Plan Problem List: (1) GIB (gastrointestinal bleeding) ICD Codes: K92.2 - Gastrointestinal hemorrhage, unspecified SNOMED: 15535767 (2) Weak ICD Codes: R53.1 - Weakness SNOMED: 37212345 (3) Dehydration ICD Codes: E86.0 - Dehydration SNOMED: 75759335 (4) Anemia ICD Codes: D64.9 - Anemia, unspecified SNOMED: 249879474 (5) Chronic respiratory failure ICD Codes: J96.10 - Chronic respiratory failure, unspecified whether with hypoxia or hypercapnia SNOMED: 68799179 (6) Elevated BUN ICD Codes: R79.9 - Abnormal finding of blood chemistry, unspecified SNOMED: 136640001 Status: unchanged Assessment/Plan vent abx ot pt diet ivf cbc bmp am ltach eval Subjective Constitutional: Reports: weakness Allergies: Coded Allergies: CHLORPROMAZINE (Verified Allergy, Unknown, 06/23/17) ERYTHROMYCIN BASE (Verified Allergy, Unknown, 06/23/17) Uncoded Allergies: TAPE (Allergy, Unknown, 06/23/17) All Systems: reviewed and negative except above Subjective trach vent altered Objective Last 24 Hour Vital Signs Date Time Temp Pulse Resp B/P (MAP) Pulse Ox O2 Delivery O2 Flow Rate FiO2 12/22/17 08:00 97.7 68 14 110/70 97 Mechanical Ventilator 30 97.7 12/22/17 06:56 74 14 30 12/22/17 05:16 71 16 30 12/22/17 04:00 97.7 78 15 108/68 96 Mechanical Ventilator 30 97.7 12/22/17 04:00 30 12/22/17 03:25 75 14 30 12/22/17 03:00 60 12/22/17 01:16 71 18 30 12/22/17 00:00 97.5 67 18 100/53 97 Mechanical Ventilator 30 97.5 12/22/17 00:00 61 12/22/17 00:00 30 12/21/17 23:22 74 14 30 12/21/17 21:07 77 14 30 12/21/17 20:00 60 12/21/17 20:00 30 12/21/17 20:00 97.0 69 14 100/58 100 Mechanical Ventilator 30 97.0 12/21/17 19:15 72 15 30 12/21/17 17:24 66 18 30 12/21/17 16:00 64 12/21/17 16:00 97.9 63 18 107/59 99 Mechanical Ventilator 30 97.9 12/21/17 16:00 30 12/21/17 14:55 62 22 30 12/21/17 13:07 71 18 30 12/21/17 12:00 30 12/21/17 12:00 98.1 69 16 109/66 97 Mechanical Ventilator 30 98.1 12/21/17 11:37 70 12/21/17 11:01 68 19 30 Intake and Output 12/21/17 12/22/17 19:00 07:00 Intake Total 1315 ml 1215 ml Output Total 900 ml 650 ml Balance 415 ml 565 ml Free Water 250 ml 150 ml IV Total 825 ml 825 ml Tube Feeding 240 ml 240 ml Output Urine Total 900 ml 650 ml Laboratory Tests 12/22/17 05:00: White Blood Count 6.6, Red Blood Count 3.25L, Hemoglobin 9.7L, Hematocrit 29.6L , Mean Corpuscular Volume 91, Mean Corpuscular Hemoglobin 29.7, Mean Corpuscular Hemoglobin Concent 32.7, Red Cell Distribution Width 15.2H, Platelet Count 242, Mean Platelet Volume 5.7L, Neutrophils (%) (Auto) 55.1, Lymphocytes (%) (Auto) 27.8, Monocytes (%) (Auto) 9.0, Eosinophils (%) (Auto) 6.9H, Basophils (%) (Auto) 1.2, Sodium Level 138, Potassium Level 4.3, Chloride Level 105, Carbon Dioxide Level 27, Anion Gap 6, Blood Urea Nitrogen 21H, Creatinine 1.2, Estimat Glomerular Filtration Rate 59.9, Glucose Level 105, Calcium Level 9.0, Phosphorus Level 5.7H, Magnesium Level 2.0, Total Bilirubin 0.1L, Aspartate Amino Transf (AST/SGOT) 25, Alanine Aminotransferase (ALT/SGPT) 29, Alkaline Phosphatase 137H, Total Protein 8.0, Albumin 2.8L, Globulin 5.2, Albumin/Globulin Ratio 0.5L Height (Feet): 6 Height (Inches): 3.00 Weight (Pounds): 231 General Appearance: lethargic EENT: normal ENT inspection Neck: normal alignment Cardiovascular: normal peripheral pulses, normal rate, regular rhythm Respiratory/Chest: chest wall non-tender, lungs clear, normal breath sounds Abdomen: normal bowel sounds, non tender, soft Extremities: normal inspection Edema: no edema noted Arm (L), no edema noted Arm (R), no edema noted Leg (L), no edema noted Leg (R), no edema noted Pedal (L), no edema noted Pedal (R), no edema noted Generalized Neurologic: motor weakness Skin: normal pigmentation, warm/dry QUINTON HUMPHRIES Dec 22, 2017 08:59
--- NOTE | 2017-12-22 09:39 | Pulmonology Progress Note ---
Assessment/Plan Problems: (1) Chronic respiratory failure (2) Lower GI bleeding (3) Anemia (4) Generalized weakness (5) History of pacemaker (6) Feeding by G-tube (7) Tracheostomy present (8) Schizophrenia Respiratory: monitor respiratory rate, adjust FIO2, CXR Cardiac: continue to monitor HR/BP Renal: F/U I&O, keep IV fluid Infectious Disease: check cultures Gastrointestinal: continue feedings/current rate Endocrine: monitor blood sugar Hematologic: monitor H/H Neurologic: PRN Ativan, PRN Morphine Prophylaxis: Protonix, Heparin Notes Reviewed: cash specialist Discussed with: nurses, consultants, clinical case manager Subjective ROS Limited/Unobtainable: No Constitutional: Reports: no symptoms HEENT: Repors: no symptoms Respiratory: Reports: no symptoms Allergies: Coded Allergies: CHLORPROMAZINE (Verified Allergy, Unknown, 06/23/17) ERYTHROMYCIN BASE (Verified Allergy, Unknown, 06/23/17) Uncoded Allergies: TAPE (Allergy, Unknown, 06/23/17) Objective Last 24 Hour Vital Signs Date Time Temp Pulse Resp B/P (MAP) Pulse Ox O2 Delivery O2 Flow Rate FiO2 12/22/17 09:02 78 16 30 12/22/17 08:00 97.7 68 14 110/70 97 Mechanical Ventilator 30 97.7 12/22/17 06:56 74 14 30 12/22/17 05:16 71 16 30 12/22/17 04:00 97.7 78 15 108/68 96 Mechanical Ventilator 30 97.7 12/22/17 04:00 30 12/22/17 03:25 75 14 30 12/22/17 03:00 60 12/22/17 01:16 71 18 30 12/22/17 00:00 97.5 67 18 100/53 97 Mechanical Ventilator 30 97.5 12/22/17 00:00 61 12/22/17 00:00 30 12/21/17 23:22 74 14 30 12/21/17 21:07 77 14 30 12/21/17 20:00 60 12/21/17 20:00 30 12/21/17 20:00 97.0 69 14 100/58 100 Mechanical Ventilator 30 97.0 12/21/17 19:15 72 15 30 12/21/17 17:24 66 18 30 12/21/17 16:00 64 12/21/17 16:00 97.9 63 18 107/59 99 Mechanical Ventilator 30 97.9 12/21/17 16:00 30 12/21/17 14:55 62 22 30 12/21/17 13:07 71 18 30 12/21/17 12:00 30 12/21/17 12:00 98.1 69 16 109/66 97 Mechanical Ventilator 30 98.1 12/21/17 11:37 70 12/21/17 11:01 68 19 30 Intake and Output 12/21/17 12/22/17 19:00 07:00 Intake Total 1315 ml 1215 ml Output Total 900 ml 650 ml Balance 415 ml 565 ml Free Water 250 ml 150 ml IV Total 825 ml 825 ml Tube Feeding 240 ml 240 ml Output Urine Total 900 ml 650 ml General Appearance: cachetic HEENT: status post trach Respiratory/Chest: chest wall non-tender, lungs clear Cardiovascular: normal peripheral pulses, normal rate Abdomen: normal bowel sounds, soft, non tender Extremities: no cyanosis Skin: no rash, no lesions Neurologic/Psychiatric: key ringer II-XII grossly normal Laboratory Tests 12/22/17 05:00: White Blood Count 6.6, Red Blood Count 3.25L, Hemoglobin 9.7L, Hematocrit 29.6L , Mean Corpuscular Volume 91, Mean Corpuscular Hemoglobin 29.7, Mean Corpuscular Hemoglobin Concent 32.7, Red Cell Distribution Width 15.2H, Platelet Count 242, Mean Platelet Volume 5.7L, Neutrophils (%) (Auto) 55.1, Lymphocytes (%) (Auto) 27.8, Monocytes (%) (Auto) 9.0, Eosinophils (%) (Auto) 6.9H, Basophils (%) (Auto) 1.2, Sodium Level 138, Potassium Level 4.3, Chloride Level 105, Carbon Dioxide Level 27, Anion Gap 6, Blood Urea Nitrogen 21H, Creatinine 1.2, Estimat Glomerular Filtration Rate 59.9, Glucose Level 105, Calcium Level 9.0, Phosphorus Level 5.7H, Magnesium Level 2.0, Total Bilirubin 0.1L, Aspartate Amino Transf (AST/SGOT) 25, Alanine Aminotransferase (ALT/SGPT) 29, Alkaline Phosphatase 137H, Total Protein 8.0, Albumin 2.8L, Globulin 5.2, Albumin/Globulin Ratio 0.5L Current Medications Medications (Trade) Dose Ordered Sig/Karen Route PRN Reason Start Time Stop Time Status Last Admin Dose Admin Acetaminophen (Tylenol) 650 mg Q4H PRN ORAL FEVER 12/17/17 21:00 01/16/18 20:59 12/18/17 20:51 Al Hydroxide/Mg Hydroxide (Mylanta) 15 ml Q1H PRN ORAL gi upset 12/19/17 06:45 Albuterol/ Ipratropium (Albuterol/ Ipratropium) 3 ml Q4H PRN HHN Shortness of Breath 12/17/17 21:00 12/22/17 20:59 Atropine Sulfate (Atropine) 0.5 mg Q5M PRN IV bpm less than 45 12/19/17 06:45 Carbamazepine (TEGretol) 200 mg FOUR TIMES A DAY GT 12/19/17 22:15 01/18/18 22:14 12/22/17 08:59 Chlorhexidine Gluconate (Cassandra-Hex 2%) 1 applic DAILY@2000 TOPIC 12/19/17 20:00 01/18/18 19:59 12/21/17 21:05 Clotrimazole (Lotrimin) 1 applic EVERY 12 HOURS TOPIC 12/20/17 21:00 01/19/18 20:59 12/22/17 09:02 Dextrose (Dextrose 50%) 25 ml STAT PRN IV HYPOGLYCEMIA 12/18/17 08:45 01/17/18 08:44 Dextrose (Dextrose 50%) 50 ml STAT PRN IV Hypoglycemia 12/18/17 09:30 01/17/18 09:29 Dextrose/ Electrolytes 1,000 ml @ 75 mls/hr [id number] IV 12/19/17 18:00 01/18/18 17:59 12/22/17 00:30 Diphenhydramine HCl (Benadryl) 25 mg Q15M PRN IVP Itching 12/19/17 06:45 Fentanyl Citrate (Sublimaze 100 mcg/2 mL) 25 mcg Q10M PRN IV Moderate Pain (Pain Scale 4-6) 12/19/17 06:45 Hydralazine HCl (Apresoline) 5 mg Q30M PRN IV SBP>160 OR___/DBP>90 OR___ 12/19/17 06:45 Insulin Aspart (NovoLOG) EVERY 6 HOURS SUBQ 12/18/17 12:00 01/17/18 11:59 12/22/17 07:13 Levetiracetam (Keppra) 500 mg TWICE A DAY ORAL 12/17/17 22:00 01/16/18 21:59 12/22/17 08:59 Lorazepam (Ativan 2mg/ml 1ml) 2 mg Q2H PRN IV For Anxiety 12/17/17 21:00 12/24/17 20:59 Midazolam HCl (Versed 2mg/2ml vial) 1 mg Q15M PRN IVP For Anxiety 12/19/17 06:45 Midodrine (Pro-Amatine) 5 mg BID GT 12/18/17 09:00 01/17/18 08:59 12/22/17 08:59 Morphine Sulfate (Morphine Sulfate) 4 mg Q4H PRN IVP Severe Pain (Pain Scale 7-10) 12/17/17 21:00 12/24/17 20:59 Olanzapine (ZyPREXA) 15 mg DAILY GT 12/18/17 09:00 01/17/18 08:59 12/22/17 09:00 Ondansetron HCl (Zofran) 4 mg Q1H PRN IVP Nausea & Vomiting 12/19/17 06:45 Ondansetron HCl (Zofran) 4 mg Q6H PRN IVP Nausea & Vomiting 12/17/17 21:00 01/16/18 20:59 Pantoprazole (Protonix) 40 mg DAILY ORAL 12/19/17 09:00 01/18/18 08:59 12/22/17 08:59 Polyethylene Glycol (Miralax) 17 gm DAILYPRN PRN ORAL Constipation 12/17/17 21:00 01/16/18 20:59 Quetiapine Fumarate (SEROquel) 200 mg BEDTIME ORAL 12/18/17 21:00 01/17/18 08:59 12/21/17 21:06 Naheed Espinoza MD Dec 22, 2017 09:39
--- NOTE | 2017-12-22 09:45 | Progress Note ---
DATE: 12/22/2017 SUBJECTIVE: This is a 72-year-old male patient with generalized weakness. The patient continues to have mood lability, confusion, disorganized thought process worsened by the stress of his medical illness. That is why, his attending has requested daily psychiatric consultation. MENTAL STATUS EXAMINATION: The patient is a 72-year-old male with psychomotor retardation. Mood is depressed. Affect guarded and restricted. Thought process, disorganized and illogical. Denies suicidal or homicidal thoughts. Denies auditory hallucinations and paranoid delusions. Insight and judgement is poor. DIAGNOSIS: Schizoaffective, bipolar type. PLAN: Continue to titrate up on his medications to stabilize his mood. Provided 18 to 20 minutes of supportive therapy. Encouraged his to interact appropriately with staff and other patients. Chart was reviewed and discussed with staff. Seen and assessed at bedside. Devon Castillo M.D. DR: [place] JOB#: [id number] CC:
[2017-12-22 12:00] VITALS: BP 102/62
--- NOTE | 2017-12-22 13:51 | Infectious Diseases Prog Note ---
Assessment/Plan Assessment/Plan ASSESSMENT: The patient is a 72-year-old male with: Probable lower GI bleed ? gross versus just occult. Mild elevation of alkaline phosphatase, however, no significance at this time. Doubt pneumonia, the patient has no significant cough. Afebrile. Normal white blood cells SP Colonoscopy : Polyp x 2 12/20 SP EGD : gastritis 12/19 Seizures Pacemaker Hypertension COPD Ventilator-dependent respiratory failure History of trach History of IVC filter History of CKD Anemia PLAN: will monitor the patient off of antibiotics. Monitor CBC and BMP. cultures (blood and sputum) Subjective Constitutional: Denies: no symptoms, fever, chills, fatigue, anorexia, drenching sweats, other Allergies: Coded Allergies: CHLORPROMAZINE (Verified Allergy, Unknown, 06/23/17) ERYTHROMYCIN BASE (Verified Allergy, Unknown, 06/23/17) Uncoded Allergies: TAPE (Allergy, Unknown, 06/23/17) Subjective EGD today Objective Vital Signs Last 24 Hour Vital Signs Date Time Temp Pulse Resp B/P (MAP) Pulse Ox O2 Delivery O2 Flow Rate FiO2 12/22/17 13:16 76 18 30 12/22/17 12:00 30 12/22/17 10:55 71 16 30 12/22/17 09:02 78 16 30 12/22/17 08:00 30 12/22/17 08:00 97.7 68 14 110/70 97 Mechanical Ventilator 30 97.7 12/22/17 08:00 60 12/22/17 06:56 74 14 30 12/22/17 05:16 71 16 30 12/22/17 04:00 97.7 78 15 108/68 96 Mechanical Ventilator 30 97.7 12/22/17 04:00 30 12/22/17 03:25 75 14 30 12/22/17 03:00 60 12/22/17 01:16 71 18 30 12/22/17 00:00 97.5 67 18 100/53 97 Mechanical Ventilator 30 97.5 12/22/17 00:00 61 12/22/17 00:00 30 12/21/17 23:22 74 14 30 12/21/17 21:07 77 14 30 12/21/17 20:00 60 12/21/17 20:00 30 12/21/17 20:00 97.0 69 14 100/58 100 Mechanical Ventilator 30 97.0 12/21/17 19:15 72 15 30 12/21/17 17:24 66 18 30 12/21/17 16:00 64 12/21/17 16:00 97.9 63 18 107/59 99 Mechanical Ventilator 30 97.9 12/21/17 16:00 30 12/21/17 14:55 62 22 30 Height (Feet): 6 Height (Inches): 3.00 Weight (Pounds): 231 HEENT: anicteric Respiratory/Chest: normal breath sounds Cardiovascular: normal rate Abdomen: normal bowel sounds Laboratory Tests Test 12/22/17 05:00 White Blood Count 6.6 K/UL (4.8-10.8) Red Blood Count 3.25 M/UL (4.70-6.10) L Hemoglobin 9.7 G/DL (14.2-18.0) L Hematocrit 29.6 % (42.0-52.0) L Mean Corpuscular Volume 91 FL (80-99) Mean Corpuscular Hemoglobin 29.7 PG (27.0-31.0) Mean Corpuscular Hemoglobin Concent 32.7 G/DL (32.0-36.0) Red Cell Distribution Width 15.2 % (11.6-14.8) H Platelet Count 242 K/UL (150-450) Mean Platelet Volume 5.7 FL (6.5-10.1) L Neutrophils (%) (Auto) 55.1 % (45.0-75.0) Lymphocytes (%) (Auto) 27.8 % (20.0-45.0) Monocytes (%) (Auto) 9.0 % (1.0-10.0) Eosinophils (%) (Auto) 6.9 % (0.0-3.0) H Basophils (%) (Auto) 1.2 % (0.0-2.0) Sodium Level 138 MMOL/L (136-145) Potassium Level 4.3 MMOL/L (3.5-5.1) Chloride Level 105 MMOL/L (98-107) Carbon Dioxide Level 27 MMOL/L (21-32) Anion Gap 6 mmol/L (5-15) Blood Urea Nitrogen 21 mg/dL (7-18) H Creatinine 1.2 MG/DL (0.55-1.30) Estimat Glomerular Filtration Rate 59.9 mL/min (>60) Glucose Level 105 MG/DL (74-106) Calcium Level 9.0 MG/DL (8.5-10.1) Phosphorus Level 5.7 MG/DL (2.5-4.9) H Magnesium Level 2.0 MG/DL (1.8-2.4) Total Bilirubin 0.1 MG/DL (0.2-1.0) L Aspartate Amino Transf (AST/SGOT) 25 U/L (15-37) Alanine Aminotransferase (ALT/SGPT) 29 U/L (12-78) Alkaline Phosphatase 137 U/L (46-116) H Total Protein 8.0 G/DL (6.4-8.2) Albumin 2.8 G/DL (3.4-5.0) L Globulin 5.2 g/dL Albumin/Globulin Ratio 0.5 (1.0-2.7) L Current Medications Medications (Trade) Dose Ordered Sig/Karen Route PRN Reason Start Time Stop Time Status Last Admin Dose Admin Acetaminophen (Tylenol) 650 mg Q4H PRN ORAL FEVER 12/17/17 21:00 01/16/18 20:59 12/18/17 20:51 Al Hydroxide/Mg Hydroxide (Mylanta) 15 ml Q1H PRN ORAL gi upset 12/19/17 06:45 Albuterol/ Ipratropium (Albuterol/ Ipratropium) 3 ml Q4H PRN HHN Shortness of Breath 12/17/17 21:00 12/22/17 20:59 Atropine Sulfate (Atropine) 0.5 mg Q5M PRN IV bpm less than 45 12/19/17 06:45 Carbamazepine (TEGretol) 200 mg FOUR TIMES A DAY GT 12/19/17 22:15 01/18/18 22:14 12/22/17 13:08 Chlorhexidine Gluconate (Cassandra-Hex 2%) 1 applic DAILY@1999 TOPIC 12/19/17 20:00 01/18/18 19:59 12/21/17 21:05 Clotrimazole (Lotrimin) 1 applic EVERY 12 HOURS TOPIC 12/20/17 21:00 01/19/18 20:59 12/22/17 09:02 Dextrose (Dextrose 50%) 25 ml STAT PRN IV HYPOGLYCEMIA 12/18/17 08:45 01/17/18 08:44 Dextrose (Dextrose 50%) 50 ml STAT PRN IV Hypoglycemia 12/18/17 09:30 01/17/18 09:29 Dextrose/ Electrolytes 1,000 ml @ 75 mls/hr [id number] IV 12/19/17 18:00 01/18/18 17:59 12/22/17 00:30 Diphenhydramine HCl (Benadryl) 25 mg Q15M PRN IVP Itching 12/19/17 06:45 Fentanyl Citrate (Sublimaze 100 mcg/2 mL) 25 mcg Q10M PRN IV Moderate Pain (Pain Scale 4-6) 12/19/17 06:45 Hydralazine HCl (Apresoline) 5 mg Q30M PRN IV SBP>160 OR___/DBP>90 OR___ 12/19/17 06:45 Insulin Aspart (NovoLOG) EVERY 6 HOURS SUBQ 12/18/17 12:00 01/17/18 11:59 12/22/17 13:02 Levetiracetam (Keppra) 500 mg TWICE A DAY ORAL 12/17/17 22:00 01/16/18 21:59 12/22/17 08:59 Lorazepam (Ativan 2mg/ml 1ml) 2 mg Q2H PRN IV For Anxiety 12/17/17 21:00 12/24/17 20:59 Midazolam HCl (Versed 2mg/2ml vial) 1 mg Q15M PRN IVP For Anxiety 12/19/17 06:45 Midodrine (Pro-Amatine) 5 mg BID GT 12/18/17 09:00 01/17/18 08:59 12/22/17 08:59 Morphine Sulfate (Morphine Sulfate) 4 mg Q4H PRN IVP Severe Pain (Pain Scale 7-10) 12/17/17 21:00 12/24/17 20:59 Olanzapine (ZyPREXA) 15 mg DAILY GT 12/18/17 09:00 01/17/18 08:59 12/22/17 09:00 Ondansetron HCl (Zofran) 4 mg Q1H PRN IVP Nausea & Vomiting 12/19/17 06:45 Ondansetron HCl (Zofran) 4 mg Q6H PRN IVP Nausea & Vomiting 12/17/17 21:00 01/16/18 20:59 Pantoprazole (Protonix) 40 mg DAILY ORAL 12/19/17 09:00 01/18/18 08:59 12/22/17 08:59 Polyethylene Glycol (Miralax) 17 gm DAILYPRN PRN ORAL Constipation 12/17/17 21:00 01/16/18 20:59 Quetiapine Fumarate (SEROquel) 200 mg BEDTIME ORAL 12/18/17 21:00 01/17/18 08:59 12/21/17 21:06 Shayan Ricci MD Dec 22, 2017 13:51
[2017-12-22 16:00] VITALS: BP 93/56
[2017-12-22 20:00] VITALS: BP 106/68
[2017-12-22] MEDS: Dyna-Hex 2% Top Sol 2oz TOPIC SCH (20:45)
[2017-12-22] MEDS: QUEtiapine 200mg tab ORAL SCH (21:23)
[2017-12-23] VITALS: BP 101/85
[2017-12-23] MEDS: NovoLOG Insulin Flexpen SUBQ SCH ×4 (00:07→18:00)
[2017-12-23] MEDS: D5 1/2NS w/KCl 20mEq 1,000 ML IV SCH ×2 (02:37→15:38)
[2017-12-23 04:00] VITALS: BP 110/61
[2017-12-23 04:16] LABS: BASOPHILS % (AUTO) 1.2 % (0.0-2.0); EOSINOPHILS % (AUTO) 7.8 % (0.0-3.0); HEMATOCRIT 29.1 % (42.0-52.0); HEMOGLOBIN 9.5 G/DL (14.2-18.0); LYMPHOCYTES % (AUTO) 25.9 % (20.0-45.0); MEAN CORPUSCULAR VOLUME 92 FL (80-99); MONOCYTES % (AUTO) 9.2 % (1.0-10.0); PLATELET COUNT 224 K/UL (150-450); RED BLOOD COUNT 3.17 M/UL (4.70-6.10); RED CELL DISTRIBUTION WIDTH 15.2 % (11.6-14.8); WHITE BLOOD COUNT 6.7 K/UL (4.8-10.8)
[2017-12-23 04:42] LABS: ALANINE AMINOTRANSFERASE 22 U/L (12-78); ALBUMIN 2.7 G/DL (3.4-5.0); ALBUMIN/GLOBULIN RATIO 0.5 (1.0-2.7); ALKALINE PHOSPHATASE 138 U/L (46-116); ANION GAP 6 mmol/L (5-15); ASPARTATE AMINO TRANSFERASE 18 U/L (15-37); BILIRUBIN,TOTAL 0.2 MG/DL (0.2-1.0); BLOOD UREA NITROGEN 19 mg/dL (7-18); CARBON DIOXIDE 28 MMOL/L (21-32); CHLORIDE 105 MMOL/L (98-107); CREATININE 1.2 MG/DL (0.55-1.30); POTASSIUM 4.3 MMOL/L (3.5-5.1); SODIUM 139 MMOL/L (136-145)
[2017-12-23 08:00] VITALS: BP 125/76
[2017-12-23] MEDS: carBAMazepine 200mg tab GT SCH ×3 (09:20→18:27)
--- NOTE | 2017-12-23 10:33 | GI Progress Note ---
Assessment/Plan Problems: (1) Sepsis ICD Codes: A41.9 - Sepsis, unspecified organism SNOMED: 89296265 (2) GIB (gastrointestinal bleeding) ICD Codes: K92.2 - Gastrointestinal hemorrhage, unspecified SNOMED: 84930022 (3) Dehydration ICD Codes: E86.0 - Dehydration SNOMED: 37842523 (4) Feeding by G-tube ICD Codes: Z93.1 - Gastrostomy status SNOMED: 581445135, 000924047 (5) Anemia ICD Codes: D64.9 - Anemia, unspecified SNOMED: 509304590 Status: unchanged Status Narrative Discussed with Dr. Dominguez. Assessment/Plan OB stool negative s/p EGD/colonoscopy >> gastritis, polyps GTFs per RD GT site care daily/prn monitor H&H, prn transfusions bowel regime ppi fu labs The patient was seen and examined at bedside and all new and available data was reviewed in the patients chart. I agree with the above findings, impression and plan. (Patient seen earlier today. Signature stamp does not reflect patient encounter time.). - Diego Dominguez MD Subjective Subjective limited Objective Last 24 Hour Vital Signs Date Time Temp Pulse Resp B/P (MAP) Pulse Ox O2 Delivery O2 Flow Rate FiO2 12/23/17 09:29 68 15 30 12/23/17 08:00 98.0 73 18 125/76 98 Mechanical Ventilator 30 98.0 12/23/17 08:00 65 12/23/17 08:00 30 12/23/17 06:30 63 16 30 12/23/17 05:00 68 14 30 12/23/17 04:00 60 12/23/17 04:00 97.1 65 20 110/61 98 Mechanical Ventilator 30 97.1 12/23/17 04:00 30 12/23/17 02:42 62 15 30 12/23/17 01:27 65 15 30 12/23/17 00:00 30 12/23/17 00:00 97.7 70 20 101/85 97 Mechanical Ventilator 30 97.7 12/22/17 23:51 63 12/22/17 22:53 63 15 30 12/22/17 21:16 60 15 30 12/22/17 20:00 97.7 66 20 106/68 97 Mechanical Ventilator 30 97.7 4/8/18 20:00 30 12/22/17 19:37 60 12/22/17 18:58 63 15 30 12/22/17 17:29 74 19 30 12/22/17 16:45 63 12/22/17 16:00 97.7 65 16 93/56 97 Mechanical Ventilator 30 97.7 12/22/17 16:00 30 12/22/17 14:53 74 18 30 12/22/17 13:16 76 18 30 12/22/17 12:00 98.1 65 14 102/62 99 Mechanical Ventilator 30 98.1 12/22/17 12:00 62 12/22/17 12:00 30 12/22/17 10:55 71 16 30 Intake and Output 12/22/17 12/23/17 19:00 07:00 Intake Total 1510 ml 1403 ml Output Total 400 ml 1400 ml Balance 1110 ml 3 ml Free Water 250 ml IV Total 900 ml 853 ml Tube Feeding 360 ml 550 ml Output Urine Total 400 ml 1400 ml Laboratory Tests Test 12/23/17 03:50 White Blood Count 6.7 K/UL (4.8-10.8) Red Blood Count 3.17 M/UL (4.70-6.10) L Hemoglobin 9.5 G/DL (14.2-18.0) L Hematocrit 29.1 % (42.0-52.0) L Mean Corpuscular Volume 92 FL (80-99) Mean Corpuscular Hemoglobin 30.0 PG (27.0-31.0) Mean Corpuscular Hemoglobin Concent 32.6 G/DL (32.0-36.0) Red Cell Distribution Width 15.2 % (11.6-14.8) H Platelet Count 224 K/UL (150-450) Mean Platelet Volume 5.8 FL (6.5-10.1) L Neutrophils (%) (Auto) 56.0 % (45.0-75.0) Lymphocytes (%) (Auto) 25.9 % (20.0-45.0) Monocytes (%) (Auto) 9.2 % (1.0-10.0) Eosinophils (%) (Auto) 7.8 % (0.0-3.0) H Basophils (%) (Auto) 1.2 % (0.0-2.0) Sodium Level 139 MMOL/L (136-145) Potassium Level 4.3 MMOL/L (3.5-5.1) Chloride Level 105 MMOL/L (98-107) Carbon Dioxide Level 28 MMOL/L (21-32) Anion Gap 6 mmol/L (5-15) Blood Urea Nitrogen 19 mg/dL (7-18) H Creatinine 1.2 MG/DL (0.55-1.30) Estimat Glomerular Filtration Rate 59.9 mL/min (>60) Glucose Level 102 MG/DL (74-106) Calcium Level 9.0 MG/DL (8.5-10.1) Total Bilirubin 0.2 MG/DL (0.2-1.0) Aspartate Amino Transf (AST/SGOT) 18 U/L (15-37) Alanine Aminotransferase (ALT/SGPT) 22 U/L (12-78) Alkaline Phosphatase 138 U/L (46-116) H Pro-B-Type Natriuretic Peptide 142 pg/mL (0-125) H Total Protein 7.8 G/DL (6.4-8.2) Albumin 2.7 G/DL (3.4-5.0) L Globulin 5.1 g/dL Albumin/Globulin Ratio 0.5 (1.0-2.7) L Height (Feet): 6 Height (Inches): 3.00 Weight (Pounds): 231 General Appearance: no apparent distress Cardiovascular: normal rate Respiratory/Chest: other - mech vent Abdominal Exam: GT site - c/d/i Raven Thomas N.P. Dec 23, 2017 10:33 MICAH DOMINGUEZ Dec 24, 2017 13:14
--- NOTE | 2017-12-23 10:51 | Pulmonology Progress Note ---
Assessment/Plan Problems: (1) Chronic respiratory failure (2) Lower GI bleeding (3) Anemia (4) Generalized weakness (5) History of pacemaker (6) Feeding by G-tube (7) Tracheostomy present (8) Schizophrenia Respiratory: monitor respiratory rate, CXR Cardiac: continue pressors, continue to monitor HR/BP Renal: F/U I&O Infectious Disease: check cultures, continue antibiotics Gastrointestinal: continue feedings/current rate Endocrine: monitor blood sugar, check HgA1C, continue sliding scale insulin Hematologic: monitor H/H, transfuse if hgb<8.5 Neurologic: PRN Morphine, keep patient comfortable Affect: PRN ativan Prophylaxis: Heparin Notes Reviewed: president financial institution, 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 with: nurses, consultants, case management director Subjective ROS Limited/Unobtainable: No Constitutional: Reports: no symptoms HEENT: Repors: no symptoms Respiratory: Reports: no symptoms Allergies: Coded Allergies: CHLORPROMAZINE (Verified Allergy, Unknown, 06/23/17) ERYTHROMYCIN BASE (Verified Allergy, Unknown, 06/23/17) Uncoded Allergies: TAPE (Allergy, Unknown, 06/23/17) Objective Last 24 Hour Vital Signs Date Time Temp Pulse Resp B/P (MAP) Pulse Ox O2 Delivery O2 Flow Rate FiO2 12/23/17 09:29 68 15 30 12/23/17 08:00 98.0 73 18 125/76 98 Mechanical Ventilator 30 98.0 12/23/17 08:00 65 12/23/17 08:00 30 12/23/17 06:30 63 16 30 12/23/17 05:00 68 14 30 12/23/17 04:00 60 12/23/17 04:00 97.1 65 20 110/61 98 Mechanical Ventilator 30 97.1 12/23/17 04:00 30 12/23/17 02:42 62 15 30 12/23/17 01:27 65 15 30 12/23/17 00:00 30 12/23/17 00:00 97.7 70 20 101/85 97 Mechanical Ventilator 30 97.7 12/22/17 23:51 63 12/22/17 22:53 63 15 30 12/22/17 21:16 60 15 30 12/22/17 20:00 97.7 66 20 106/68 97 Mechanical Ventilator 30 97.7 12/22/17 20:00 30 12/22/17 19:37 60 4/8/18 18:58 63 15 30 12/22/17 17:29 74 19 30 12/22/17 16:45 63 12/22/17 16:00 97.7 65 16 93/56 97 Mechanical Ventilator 30 97.7 12/22/17 16:00 30 12/22/17 14:53 74 18 30 12/22/17 13:16 76 18 30 12/22/17 12:00 98.1 65 14 102/62 99 Mechanical Ventilator 30 98.1 12/22/17 12:00 62 12/22/17 12:00 30 12/22/17 10:55 71 16 30 Intake and Output 12/22/17 12/23/17 19:00 07:00 Intake Total 1510 ml 1403 ml Output Total 400 ml 1400 ml Balance 1110 ml 3 ml Free Water 250 ml IV Total 900 ml 853 ml Tube Feeding 360 ml 550 ml Output Urine Total 400 ml 1400 ml General Appearance: WD/WN HEENT: normocephalic, status post trach Respiratory/Chest: chest wall non-tender, normal breath sounds Cardiovascular: normal peripheral pulses, normal rate Abdomen: normal bowel sounds, soft, non tender Extremities: no cyanosis Skin: no rash, no lesions Neurologic/Psychiatric: crts II-XII grossly normal, no motor/sensory deficits Lymphatic: no groin adenopathy Laboratory Tests 12/23/17 03:50: White Blood Count 6.7, Red Blood Count 3.17L, Hemoglobin 9.5L, Hematocrit 29.1L , Mean Corpuscular Volume 92, Mean Corpuscular Hemoglobin 30.0, Mean Corpuscular Hemoglobin Concent 32.6, Red Cell Distribution Width 15.2H, Platelet Count 224, Mean Platelet Volume 5.8L, Neutrophils (%) (Auto) 56.0, Lymphocytes (%) (Auto) 25.9, Monocytes (%) (Auto) 9.2, Eosinophils (%) (Auto) 7.8H, Basophils (%) (Auto) 1.2, Sodium Level 139, Potassium Level 4.3, Chloride Level 105, Carbon Dioxide Level 28, Anion Gap 6, Blood Urea Nitrogen 19H, Creatinine 1.2, Estimat Glomerular Filtration Rate 59.9, Glucose Level 102, Calcium Level 9.0, Total Bilirubin 0.2, Aspartate Amino Transf (AST/SGOT) 18, Alanine Aminotransferase (ALT/SGPT) 22, Alkaline Phosphatase 138H, Pro-B-Type Natriuretic Peptide 142H, Total Protein 7.8, Albumin 2.7L, Globulin 5.1, Albumin /Globulin Ratio 0.5L Current Medications Medications (Trade) Dose Ordered Sig/Karen Route PRN Reason Start Time Stop Time Status Last Admin Dose Admin Acetaminophen (Tylenol) 650 mg Q4H PRN ORAL FEVER 12/17/17 21:00 01/16/18 20:59 12/18/17 20:51 Al Hydroxide/Mg Hydroxide (Mylanta) 15 ml Q1H PRN ORAL gi upset 12/19/17 06:45 Atropine Sulfate (Atropine) 0.5 mg Q5M PRN IV bpm less than 45 12/19/17 06:45 Carbamazepine (TEGretol) 200 mg FOUR TIMES A DAY GT 12/19/17 22:15 01/18/18 22:14 12/23/17 09:20 Chlorhexidine Gluconate (Cassandra-Hex 2%) 1 applic DAILY@2000 TOPIC 12/19/17 20:00 01/18/18 19:59 12/22/17 20:45 Clotrimazole (Lotrimin) 1 applic EVERY 12 HOURS TOPIC 12/20/17 21:00 01/19/18 20:59 12/23/17 09:21 Dextrose (Dextrose 50%) 25 ml STAT PRN IV HYPOGLYCEMIA 12/18/17 08:45 01/17/18 08:44 Dextrose (Dextrose 50%) 50 ml STAT PRN IV Hypoglycemia 12/18/17 09:30 01/17/18 09:29 Dextrose/ Electrolytes 1,000 ml @ 75 mls/hr [id number] IV 12/19/17 18:00 01/18/18 17:59 12/23/17 02:37 Diphenhydramine HCl (Benadryl) 25 mg Q15M PRN IVP Itching 12/19/17 06:45 Fentanyl Citrate (Sublimaze 100 mcg/2 mL) 25 mcg Q10M PRN IV Moderate Pain (Pain Scale 4-6) 12/19/17 06:45 Hydralazine HCl (Apresoline) 5 mg Q30M PRN IV SBP>160 OR___/DBP>90 OR___ 4/5/18 06:45 Insulin Aspart (NovoLOG) EVERY 6 HOURS SUBQ 12/18/17 12:00 01/17/18 11:59 12/23/17 06:00 Levetiracetam (Keppra) 500 mg TWICE A DAY ORAL 12/17/17 22:00 01/16/18 21:59 12/23/17 09:20 Lorazepam (Ativan 2mg/ml 1ml) 2 mg Q2H PRN IV For Anxiety 12/17/17 21:00 12/24/17 20:59 Midazolam HCl (Versed 2mg/2ml vial) 1 mg Q15M PRN IVP For Anxiety 12/19/17 06:45 Midodrine (Pro-Amatine) 5 mg BID GT 12/18/17 09:00 01/17/18 08:59 12/23/17 09:20 Morphine Sulfate (Morphine Sulfate) 4 mg Q4H PRN IVP Severe Pain (Pain Scale 7-10) 12/17/17 21:00 12/24/17 20:59 Olanzapine (ZyPREXA) 15 mg DAILY GT 12/18/17 09:00 01/17/18 08:59 12/23/17 09:20 Ondansetron HCl (Zofran) 4 mg Q1H PRN IVP Nausea & Vomiting 12/19/17 06:45 Ondansetron HCl (Zofran) 4 mg Q6H PRN IVP Nausea & Vomiting 12/17/17 21:00 01/16/18 20:59 Pantoprazole (Protonix) 40 mg DAILY ORAL 12/19/17 09:00 01/18/18 08:59 12/23/17 09:20 Polyethylene Glycol (Miralax) 17 gm DAILYPRN PRN ORAL Constipation 12/17/17 21:00 01/16/18 20:59 Quetiapine Fumarate (SEROquel) 200 mg BEDTIME ORAL 12/18/17 21:00 01/17/18 08:59 12/22/17 21:23 Naheed Espinoza MD Dec 23, 2017 10:51
--- NOTE | 2017-12-23 10:55 | Diagnostic Imaging Report ---
Indication: Dyspnea Comparison: 12/17/2017 A single view chest radiograph was obtained. Findings: Interval development of parenchymal infiltrate versus atelectasis at the left lung base demonstrated. Current exam is limited by rotation. Pacemaker, PICC line and tracheostomy are noted. The PICC line tip is in the SVC. IMPRESSION: Development of a left basilar pneumonia versus atelectasis. Interval placement of a PICC line which is in good position
[2017-12-23 12:00] VITALS: BP 97/59
--- NOTE | 2017-12-23 14:09 | General Progress Note ---
Assessment/Plan Problem List: (1) GIB (gastrointestinal bleeding) ICD Codes: K92.2 - Gastrointestinal hemorrhage, unspecified SNOMED: 09186679 (2) Weak ICD Codes: R53.1 - Weakness SNOMED: 31843682 (3) Dehydration ICD Codes: E86.0 - Dehydration SNOMED: 67781601 (4) Anemia ICD Codes: D64.9 - Anemia, unspecified SNOMED: 878528825 (5) Chronic respiratory failure ICD Codes: J96.10 - Chronic respiratory failure, unspecified whether with hypoxia or hypercapnia SNOMED: 15559338 (6) Elevated BUN ICD Codes: R79.9 - Abnormal finding of blood chemistry, unspecified SNOMED: 332266660 Status: stable, progressing, tolerating diet Assessment/Plan vent abx ot pt diet ivf cbc bmp am dc if clear Subjective Constitutional: Reports: weakness Allergies: Coded Allergies: CHLORPROMAZINE (Verified Allergy, Unknown, 06/23/17) ERYTHROMYCIN BASE (Verified Allergy, Unknown, 06/23/17) Uncoded Allergies: TAPE (Allergy, Unknown, 06/23/17) All Systems: reviewed and negative except above Subjective trach vent altered Objective Last 24 Hour Vital Signs Date Time Temp Pulse Resp B/P (MAP) Pulse Ox O2 Delivery O2 Flow Rate FiO2 12/23/17 13:00 71 15 30 12/23/17 12:00 30 12/23/17 12:00 97.8 60 19 97/59 98 Mechanical Ventilator 30 97.8 12/23/17 11:18 69 15 30 12/23/17 09:29 68 15 30 12/23/17 08:00 98.0 73 18 125/76 98 Mechanical Ventilator 30 98.0 12/23/17 08:00 65 12/23/17 08:00 30 12/23/17 06:30 63 16 30 12/23/17 05:00 68 14 30 12/23/17 04:00 60 12/23/17 04:00 97.1 65 20 110/61 98 Mechanical Ventilator 30 97.1 12/23/17 04:00 30 12/23/17 02:42 62 15 30 12/23/17 01:27 65 15 30 12/23/17 00:00 30 12/23/17 00:00 97.7 70 20 101/85 97 Mechanical Ventilator 30 97.7 12/22/17 23:51 63 12/22/17 22:53 63 15 30 12/22/17 21:16 60 15 30 12/22/17 20:00 97.7 66 20 106/68 97 Mechanical Ventilator 30 97.7 12/22/17 20:00 30 12/22/17 19:37 60 12/22/17 18:58 63 15 30 12/22/17 17:29 74 19 30 12/22/17 16:45 63 12/22/17 16:00 97.7 65 16 93/56 97 Mechanical Ventilator 30 97.7 12/22/17 16:00 30 12/22/17 14:53 74 18 30 Intake and Output 12/22/17 12/23/17 19:00 07:00 Intake Total 1510 ml 1403 ml Output Total 400 ml 1400 ml Balance 1110 ml 3 ml Free Water 250 ml IV Total 900 ml 853 ml Tube Feeding 360 ml 550 ml Output Urine Total 400 ml 1400 ml Laboratory Tests 12/23/17 03:50: White Blood Count 6.7, Red Blood Count 3.17L, Hemoglobin 9.5L, Hematocrit 29.1L , Mean Corpuscular Volume 92, Mean Corpuscular Hemoglobin 30.0, Mean Corpuscular Hemoglobin Concent 32.6, Red Cell Distribution Width 15.2H, Platelet Count 224, Mean Platelet Volume 5.8L, Neutrophils (%) (Auto) 56.0, Lymphocytes (%) (Auto) 25.9, Monocytes (%) (Auto) 9.2, Eosinophils (%) (Auto) 7.8H, Basophils (%) (Auto) 1.2, Sodium Level 139, Potassium Level 4.3, Chloride Level 105, Carbon Dioxide Level 28, Anion Gap 6, Blood Urea Nitrogen 19H, Creatinine 1.2, Estimat Glomerular Filtration Rate 59.9, Glucose Level 102, Calcium Level 9.0, Total Bilirubin 0.2, Aspartate Amino Transf (AST/SGOT) 18, Alanine Aminotransferase (ALT/SGPT) 22, Alkaline Phosphatase 138H, Pro-B-Type Natriuretic Peptide 142H, Total Protein 7.8, Albumin 2.7L, Globulin 5.1, Albumin /Globulin Ratio 0.5L Height (Feet): 6 Height (Inches): 3.00 Weight (Pounds): 231 General Appearance: alert EENT: normal ENT inspection Neck: normal alignment Cardiovascular: normal peripheral pulses, normal rate, regular rhythm Respiratory/Chest: chest wall non-tender, lungs clear, normal breath sounds Abdomen: normal bowel sounds, non tender, soft Extremities: normal inspection Edema: no edema noted Arm (L), no edema noted Arm (R), no edema noted Leg (L), no edema noted Leg (R), no edema noted Pedal (L), no edema noted Pedal (R), no edema noted Generalized Neurologic: motor weakness Skin: normal pigmentation, warm/dry QUINTON HUMPHRIES Dec 23, 2017 14:09
[2017-12-23 16:00] VITALS: BP 95/58
--- NOTE | 2017-12-23 17:21 | Infectious Diseases Prog Note ---
Assessment/Plan Assessment/Plan ASSESSMENT: The patient is a 72-year-old male with: Probable lower GI bleed ? gross versus just occult. Mild elevation of alkaline phosphatase, however, no significance at this time. Doubt pneumonia, the patient has no significant cough. Afebrile. Normal white blood cells SP Colonoscopy : Polyp x 2 12/20 Path : no Malignancy SP EGD : gastritis 12/19 Seizures Pacemaker Hypertension COPD Ventilator-dependent respiratory failure History of trach History of IVC filter History of CKD Anemia PLAN: will monitor the patient off of antibiotics. Monitor CBC and BMP. Subjective Constitutional: Denies: no symptoms, fever, chills, fatigue, anorexia, drenching sweats, other Allergies: Coded Allergies: CHLORPROMAZINE (Verified Allergy, Unknown, 06/23/17) ERYTHROMYCIN BASE (Verified Allergy, Unknown, 06/23/17) Uncoded Allergies: TAPE (Allergy, Unknown, 06/23/17) Subjective EGD today Objective Vital Signs Last 24 Hour Vital Signs Date Time Temp Pulse Resp B/P (MAP) Pulse Ox O2 Delivery O2 Flow Rate FiO2 12/23/17 17:00 60 14 30 12/23/17 16:00 30 12/23/17 16:00 98.1 60 14 95/58 98 Mechanical Ventilator 30 98.1 12/23/17 15:14 60 14 30 12/23/17 13:00 71 15 30 12/23/17 12:00 68 12/23/17 12:00 30 12/23/17 12:00 97.8 60 19 97/59 98 Mechanical Ventilator 30 97.8 12/23/17 11:18 69 15 30 12/23/17 09:29 68 15 30 12/23/17 08:00 98.0 73 18 125/76 98 Mechanical Ventilator 30 98.0 12/23/17 08:00 65 12/23/17 08:00 30 12/23/17 06:30 63 16 30 12/23/17 05:00 68 14 30 12/23/17 04:00 60 12/23/17 04:00 97.1 65 20 110/61 98 Mechanical Ventilator 30 97.1 12/23/17 04:00 30 12/23/17 02:42 62 15 30 12/23/17 01:27 65 15 30 12/23/17 00:00 30 12/23/17 00:00 97.7 70 20 101/85 97 Mechanical Ventilator 30 97.7 12/22/17 23:51 63 12/22/17 22:53 63 15 30 12/22/17 21:16 60 15 30 12/22/17 20:00 97.7 66 20 106/68 97 Mechanical Ventilator 30 97.7 12/22/17 20:00 30 12/22/17 19:37 60 12/22/17 18:58 63 15 30 12/22/17 17:29 74 19 30 Height (Feet): 6 Height (Inches): 3.00 Weight (Pounds): 231 HEENT: anicteric Respiratory/Chest: no respiratory distress Cardiovascular: regularly irregular Abdomen: no organomegaly Laboratory Tests Test 12/23/17 03:50 White Blood Count 6.7 K/UL (4.8-10.8) Red Blood Count 3.17 M/UL (4.70-6.10) L Hemoglobin 9.5 G/DL (14.2-18.0) L Hematocrit 29.1 % (42.0-52.0) L Mean Corpuscular Volume 92 FL (80-99) Mean Corpuscular Hemoglobin 30.0 PG (27.0-31.0) Mean Corpuscular Hemoglobin Concent 32.6 G/DL (32.0-36.0) Red Cell Distribution Width 15.2 % (11.6-14.8) H Platelet Count 224 K/UL (150-450) Mean Platelet Volume 5.8 FL (6.5-10.1) L Neutrophils (%) (Auto) 56.0 % (45.0-75.0) Lymphocytes (%) (Auto) 25.9 % (20.0-45.0) Monocytes (%) (Auto) 9.2 % (1.0-10.0) Eosinophils (%) (Auto) 7.8 % (0.0-3.0) H Basophils (%) (Auto) 1.2 % (0.0-2.0) Sodium Level 139 MMOL/L (136-145) Potassium Level 4.3 MMOL/L (3.5-5.1) Chloride Level 105 MMOL/L (98-107) Carbon Dioxide Level 28 MMOL/L (21-32) Anion Gap 6 mmol/L (5-15) Blood Urea Nitrogen 19 mg/dL (7-18) H Creatinine 1.2 MG/DL (0.55-1.30) Estimat Glomerular Filtration Rate 59.9 mL/min (>60) Glucose Level 102 MG/DL (74-106) Calcium Level 9.0 MG/DL (8.5-10.1) Total Bilirubin 0.2 MG/DL (0.2-1.0) Aspartate Amino Transf (AST/SGOT) 18 U/L (15-37) Alanine Aminotransferase (ALT/SGPT) 22 U/L (12-78) Alkaline Phosphatase 138 U/L (46-116) H Pro-B-Type Natriuretic Peptide 142 pg/mL (0-125) H Total Protein 7.8 G/DL (6.4-8.2) Albumin 2.7 G/DL (3.4-5.0) L Globulin 5.1 g/dL Albumin/Globulin Ratio 0.5 (1.0-2.7) L Current Medications Medications (Trade) Dose Ordered Sig/Karen Route PRN Reason Start Time Stop Time Status Last Admin Dose Admin Acetaminophen (Tylenol) 650 mg Q4H PRN ORAL FEVER 12/17/17 21:00 01/16/18 20:59 12/18/17 20:51 Al Hydroxide/Mg Hydroxide (Mylanta) 15 ml Q1H PRN ORAL gi upset 12/19/17 06:45 Atropine Sulfate (Atropine) 0.5 mg Q5M PRN IV bpm less than 45 12/19/17 06:45 Carbamazepine (TEGretol) 200 mg FOUR TIMES A DAY GT 12/19/17 22:15 01/18/18 22:14 12/23/17 13:13 Chlorhexidine Gluconate (Cassandra-Hex 2%) 1 applic DAILY@1999 TOPIC 12/19/17 20:00 01/18/18 19:59 12/22/17 20:45 Clotrimazole (Lotrimin) 1 applic EVERY 12 HOURS TOPIC 12/20/17 21:00 01/19/18 20:59 12/23/17 09:21 Dextrose (Dextrose 50%) 25 ml STAT PRN IV HYPOGLYCEMIA 12/18/17 08:45 01/17/18 08:44 Dextrose (Dextrose 50%) 50 ml STAT PRN IV Hypoglycemia 12/18/17 09:30 01/17/18 09:29 Dextrose/ Electrolytes 1,000 ml @ 75 mls/hr [id number] IV 12/19/17 18:00 01/18/18 17:59 12/23/17 15:38 Diphenhydramine HCl (Benadryl) 25 mg Q15M PRN IVP Itching 12/19/17 06:45 Fentanyl Citrate (Sublimaze 100 mcg/2 mL) 25 mcg Q10M PRN IV Moderate Pain (Pain Scale 4-6) 12/19/17 06:45 Hydralazine HCl (Apresoline) 5 mg Q30M PRN IV SBP>160 OR___/DBP>90 OR___ 12/19/17 06:45 Insulin Aspart (NovoLOG) EVERY 6 HOURS SUBQ 12/18/17 12:00 01/17/18 11:59 12/23/17 12:14 Levetiracetam (Keppra) 500 mg TWICE A DAY ORAL 12/17/17 22:00 01/16/18 21:59 12/23/17 09:20 Lorazepam (Ativan 2mg/ml 1ml) 2 mg Q2H PRN IV For Anxiety 12/17/17 21:00 12/24/17 20:59 Midazolam HCl (Versed 2mg/2ml vial) 1 mg Q15M PRN IVP For Anxiety 12/19/17 06:45 Midodrine (Pro-Amatine) 5 mg BID GT 12/18/17 09:00 01/17/18 08:59 12/23/17 09:20 Morphine Sulfate (Morphine Sulfate) 4 mg Q4H PRN IVP Severe Pain (Pain Scale 7-10) 12/17/17 21:00 12/24/17 20:59 Olanzapine (ZyPREXA) 15 mg DAILY GT 12/18/17 09:00 01/17/18 08:59 12/23/17 09:20 Ondansetron HCl (Zofran) 4 mg Q1H PRN IVP Nausea & Vomiting 12/19/17 06:45 Ondansetron HCl (Zofran) 4 mg Q6H PRN IVP Nausea & Vomiting 12/17/17 21:00 01/16/18 20:59 Pantoprazole (Protonix) 40 mg DAILY ORAL 12/19/17 09:00 01/18/18 08:59 12/23/17 09:20 Polyethylene Glycol (Miralax) 17 gm DAILYPRN PRN ORAL Constipation 12/17/17 21:00 01/16/18 20:59 Quetiapine Fumarate (SEROquel) 200 mg BEDTIME ORAL 12/18/17 21:00 01/17/18 08:59 12/22/17 21:23 Shayan Ricci MD Dec 23, 2017 17:21
--- NOTE | 2017-12-24 02:30 | Progress Note ---
DATE: 12/23/2017 NOTE: POOR AUDIO SUBJECTIVE: The patient is a 72-year-old male patient with generalized weakness. He continues to have some confusion, disorganized thought process, and mood lability. He has got pressured speech and he has extreme mood lability worsened by the stress of his medical illness. That is why, his attending physician has requested daily psychiatric consultation. MENTAL STATUS EXAMINATION: . Appearance is disheveled, irritable, and agitated. Affect guarded and restricted. Intellect poor. . Motor activity, psychomotor agitation. Attention span is poor. Orientation x2. Speech is pressured. Thought process is disorganized and illogical. Thought content, auditory hallucinations and paranoid delusions. Insight and judgment is poor. DIAGNOSIS: Schizoaffective, bipolar type. PLAN: Continue to titrate up on his psychotropic medications to stabilize his mood and reduce agitation. Encouraging him to interact appropriately with staff. Provided 18-20 minutes of supportive therapy. Chart was reviewed and discussed with staff. Seen and assessed in his room. Devon Castillo M.D. DR: CIRO JOB#: [id number] CC:
--- NOTE | 2017-12-24 12:01 | Discharge Summary ---
Discharge Summary Discharge Summary Discharge Summary DATE OF ADMISSION: 12/17/2017 DATE OF DISCHARGE: 12/23/2017 REASON FOR ADMISSION: 72 years old male with past medical history of ventilator dependent respiratory failure, tracheostomy, COPD, seizure disorder, coronary artery disease, pacemaker, hypertension, dysphagia, G-tube, schizophrenia, presented to emergency department for blood in stool. Stool for occult blood was positive. No reported vomiting. Patient by himself was unable to provide any information. Vital signs were stable upon to presentation. WBC -10.5 ,hematocrit, 32.8, troponin - negative , lactic acid -1.0; BUN- 49 and creatinine -1.0. Chest x- ray revealed probable mild interstitial edema. Patient was admitted for further management with diagnoses of lower GI bleeding, encephalopathy, dehydration, anemia, chronic respiratory failure, G-tube feeding. CONSULTANTS: pulmonary Dr. Espinoza ID specialist Dr. Ricci GI specialist psychiatrist Dr. Castillo [facility] COURSE: Patient admitted to direct observational unit. Ventilator support and tracheostomy care were provided. Pulmonary toilet was provided as needed. Baseline ABG was stable on current ventilator settings . No signs of respiratory distress on current settings. Settings were kept the same. GI specialist closely followed. Patient initially on 12/19/17 undergone EGD which revealed gastritis. Biopsy revealed mild chronic gastritis but no Helicobacter infection. Due to persistent anemia , patient undergone on 12/20/17 colonoscopy with polypectomy 2, status post biopsy with findings of internal hemorrhoids. Pathology of polyps revealed no malignancy. Counts were closely monitored. Anemia workup was consistent with anemia of chronic disease. Stool for occult blood was negative. Hemoglobin and hematocrit remained on the baseline, no need for transfusion. Tube feeding resumed as per GI clearance with strict aspiration/reflux precautions. Patient was able to tolerate tube feeding. Seizure precautions were maintained. Tegretol was continued. GI prophylaxis provided. Blood sugar was managed with sliding scale of insulin and remained stable. DVT prophylaxis provided. Blood pressure was closely monitored and managed with current regimen. Patient initially was on the IV fluids. Renal parameters and electrolytes were closely monitored. Electrolytes were corrected as needed. Nephrotoxics were avoided. BUN down to normal prior to discharge. Infectious disease specialist closely followed. Per infectious disease specialist, no evidence of acute infection. Blood cultures were negative. Infectious disease specialist recommended to keep patient off antibiotics. Psychiatrist seen and evaluated the patient. Psychiatrist diagnosed the patient with schizoaffective disorder bipolar type. Psychiatric medication regimen was optimized. No further episodes of lower GI bleeding, hemoglobin and hematocrit remained stable. Patient clinically improved and was stable for discharge to subacute group home facility for continuation of care. FINAL DIAGNOSES: Lower GI bleeding. Anemia. Chronic respiratory failure, ventilator and tracheostomy dependent. Dysphagia, G-tube. Status post EGD on 12/19/2017 with biopsy Gastritis Status post colonoscopy on 12/20/2017 with [id number] x 2 and biopsy Internal hemorrhoids Pacemaker. Hypertension. COPD. Seizure disorder. Schizoaffective disorder bipolar type. History of chronic kidney disease. History of IVC filter. DISCHARGE MEDICATIONS: list of medication was sent to accepting facility DISCHARGE INSTRUCTIONS: Patient was discharged to the group home facility. Follow up with medical doctor at the facility. I have been assigned to dictate discharge summary for this account. I was not involved in the patient's management. Kell Pacheco NP ([place]) Dec 24, 2017 12:01
== END 2017-12-23 19:25 | DRG 377 ==
LOC: EDBD 18:04 → EMR 18:15 → 2W 20:41 → EDBEDREQ 20:51 → 2W 21:45
PROC: 5A1955Z Respiratory Ventilation, Greater than 96 Consecutive Hours (ICD-10-PCS; principal; 2017-12-17)
PROC: 0DB78ZX Excision of Stomach, Pylorus, Via Natural or Artificial Opening Endoscopic, Diagnostic (ICD-10-PCS; 2017-12-19)
PROC: 02HV33Z Insertion of Infusion Device into Superior Vena Cava, Percutaneous Approach (ICD-10-PCS; 2017-12-20)
PROC: B548ZZA Ultrasonography of Superior Vena Cava, Guidance (ICD-10-PCS; 2017-12-20)
PROC: 0DBL8ZZ Excision of Transverse Colon, Via Natural or Artificial Opening Endoscopic (ICD-10-PCS; 2017-12-20)
PROC: 0DBN8ZZ Excision of Sigmoid Colon, Via Natural or Artificial Opening Endoscopic (ICD-10-PCS; 2017-12-20)
DX: K92.2 Gastrointestinal hemorrhage, unspecified (principal); G93.40 Encephalopathy, unspecified; J96.10 Chronic respiratory failure, unspecified whether with hypoxia or hypercapnia; Z99.11 Dependence on respirator [ventilator] status; K64.8 Other hemorrhoids; Z93.1 Gastrostomy status; D64.9 Anemia, unspecified; Z93.0 Tracheostomy status; R53.1 Weakness; Z95.0 Presence of cardiac pacemaker; K63.5 Polyp of colon; F25.0 Schizoaffective disorder, bipolar type; E86.0 Dehydration; G40.909 Epilepsy, unspecified, not intractable, without status epilepticus; J44.9 Chronic obstructive pulmonary disease, unspecified; I10 Essential (primary) hypertension; K29.50 Unspecified chronic gastritis without bleeding
CPT/HCPCS: 36415; 36569; 36600; 71045; 76937; 80053; 80069; 80299; 82270; 82550; 82553; 82803; 82962; 83540; 83550; 83605; 83735; 83880; 84100; 84484; 85025; 85610; 87040; 93005; 93970; 94002; 94003; 94150; 99285; J1815; J2250

== ENCOUNTER 2017-12-28 12:14 | Inpatient (IN) | payer MEDICARE, MEDICAID ==
[~2017-12-28] VITALS: Ht 198.1 cm; Wt 78.9 kg
[2017-12-28 12:25] VITALS: BP 100/58
[2017-12-28] MEDS ORDERED: ACETAMINOPHEN325 M1 ORAL (12:35)
[2017-12-28] MEDS ORDERED: PROTONIX40 M2 GT (12:35)
[2017-12-28] MEDS ORDERED: TEGRETOL200 MG GT (12:35)
[2017-12-28] MEDS ORDERED: ALBUTEROL2.5 MG/3 M INH (12:35)
[2017-12-28] MEDS ORDERED: THEOPHYLLI80 MG/151 PO (12:35)
[2017-12-28] MEDS ORDERED: MIDODRINE HCL10 MG GT (12:35)
[2017-12-28] MEDS ORDERED: ACETAMINOPHEN325 M1 GT (12:35)
[2017-12-28] MEDS ORDERED: LACTULOSE20 GM/301 GT (12:35)
[2017-12-28] MEDS ORDERED: ZYPREXA10 MG GT (12:35)
[2017-12-28] MEDS ORDERED: MULTIVITAMINS1 EAC8 GT (12:35)
[2017-12-28] MEDS ORDERED: DOCUSATE SODIU100 MG GT (12:35)
[2017-12-28] MEDS ORDERED: NITROSTAT0.4 M1 SL (12:35)
[2017-12-28] MEDS ORDERED: MIRALAX17 G2 GT (12:35)
[2017-12-28] MEDS ORDERED: DUONEB 0.5-3(2.53 ML HHN (12:35)
[2017-12-28] MEDS ORDERED: ZINC SULFATE220 M1 GT (12:35)
[2017-12-28] MEDS ORDERED: JUVEN PACKET1 EAC1 GT (12:35)
[2017-12-28 13:12] LABS: BASOPHILS % (AUTO) 0.9 % (0.0-2.0); HEMATOCRIT 33.6 % (42.0-52.0); HEMOGLOBIN 11.3 G/DL (14.2-18.0); LYMPHOCYTES % (AUTO) 27.4 % (20.0-45.0); MEAN CORPUSCULAR VOLUME 91 FL (80-99); NEUTROPHILS % (AUTO) 60.7 % (45.0-75.0); PLATELET COUNT 327 K/UL (150-450); RED CELL DISTRIBUTION WIDTH 15.2 % (11.6-14.8); WHITE BLOOD COUNT 9.1 K/UL (4.8-10.8)
[2017-12-28 13:24] LABS: ANION GAP 9 mmol/L (5-15); BLOOD UREA NITROGEN 33 mg/dL (7-18); CALCIUM 9.9 MG/DL (8.5-10.1); CARBON DIOXIDE 32 MMOL/L (21-32); CHLORIDE 100 MMOL/L (98-107); CREATININE 1.2 MG/DL (0.55-1.30); POTASSIUM 4.3 MMOL/L (3.5-5.1); SODIUM 141 MMOL/L (136-145)
[2017-12-28 13:28] LABS: ALANINE AMINOTRANSFERASE 20 U/L (12-78); ALBUMIN 3.3 G/DL (3.4-5.0); ALBUMIN/GLOBULIN RATIO 0.6 (1.0-2.7); ALKALINE PHOSPHATASE 136 U/L (46-116); ASPARTATE AMINO TRANSFERASE 20 U/L (15-37); BILIRUBIN,TOTAL 0.3 MG/DL (0.2-1.0)
--- NOTE | 2017-12-28 14:06 | Emergency Room Report ---
History of Present Illness General Chief Complaint: Malfunctioning Gastric Tube Source: Medical Record, EMS Present Illness HPI Patient presents from a [facility] facility for G-tube replacement. The G- tube was dislodged. It was found today as dislodged by the staff. It is unknown when the G-tube became dislodged. Possibly last night. The patient is chronically ill and is ventilator dependent with tracheostomy/G-tube. No other history available. Allergies: Coded Allergies: CHLORPROMAZINE (Verified Allergy, Unknown, 06/23/17) ERYTHROMYCIN BASE (Verified Allergy, Unknown, 06/23/17) PROCHLORPERAZINE (Unverified Allergy, Unknown, 12/28/17) Uncoded Allergies: TAPE (Allergy, Unknown, 06/23/17) Patient History Past Medical History: see triage record, HTN, [place], CAD, COPD, GERD, seizures Past Surgical History: pacemaker, other - PEG/TRACH/VENT Social History: Denies: smoking, alcohol use, drug use Reviewed Nursing Documentation: PMH: Agreed; PSxH: Agreed Nursing Documentation-PMH Hx Hypertension: Yes - cad, ivc filter Hx Pacemaker: Yes Hx COPD: Yes - RESP FAIL, TRACHE Hx Cancer: No - CELLULITIS Hx Dialysis: No - CKD Hx Epilepsy: Yes Review of Systems All Other Systems: limited Physical Exam Vital Signs Date Time Temp Pulse Resp B/P (MAP) Pulse Ox O2 Delivery O2 Flow Rate FiO2 12/28/17 12:10 98.0 67 16 100/58 97 Room Air 98.1 Sp02 EP Interpretation: reviewed, normal General Appearance: no apparent distress, alert, GCS 15, non-toxic Head: normocephalic, atraumatic Eyes: bilateral eye normal inspection, bilateral eye PERRL ENT: hearing grossly normal Neck: full range of motion, supple/symm/no masses, tracheotomy Respiratory: chest non-tender, lungs clear, normal breath sounds, no respiratory distress, no retraction Cardiovascular #1: regular rate, rhythm, no edema Gastrointestinal: normal bowel sounds, non tender, soft, non-distended, no guarding, no rebound, other - G-tube site closed. Rectal: deferred Musculoskeletal: other - contracted/at baseline. Neurologic: alert, responsive Psychiatric: mood/affect normal Skin: warm/dry, well hydrated, other - See RN report. Medical Decision Making Diagnostic Impression: Primary Impression: Gastrojejunostomy tube dislodgement ER Course This patient presents status post a G-tube dislodgment. The G-tube site is closed. This patient will need to be admitted for surgical G-tube replacement. He will need to be admitted to the [facility] secondary to being on a ventilator. Laboratory Tests Test 12/28/17 13:00 White Blood Count 9.1 K/UL (4.8-10.8) Red Blood Count 3.70 M/UL (4.70-6.10) L Hemoglobin 11.3 G/DL (14.2-18.0) L Hematocrit 33.6 % (42.0-52.0) L Mean Corpuscular Volume 91 FL (80-99) Mean Corpuscular Hemoglobin 30.4 PG (27.0-31.0) Mean Corpuscular Hemoglobin Concent 33.5 G/DL (32.0-36.0) Red Cell Distribution Width 15.2 % (11.6-14.8) H Platelet Count 327 K/UL (150-450) Mean Platelet Volume 5.4 FL (6.5-10.1) L Neutrophils (%) (Auto) 60.7 % (45.0-75.0) Lymphocytes (%) (Auto) 27.4 % (20.0-45.0) Monocytes (%) (Auto) 6.0 % (1.0-10.0) Eosinophils (%) (Auto) 5.0 % (0.0-3.0) H Basophils (%) (Auto) 0.9 % (0.0-2.0) Prothrombin Time 10.7 SEC (9.30-11.50) Prothrombin Time INR 1.0 (0.9-1.1) PTT 27 SEC (23-33) Sodium Level 141 MMOL/L (136-145) Potassium Level 4.3 MMOL/L (3.5-5.1) Chloride Level 100 MMOL/L (98-107) Carbon Dioxide Level 32 MMOL/L (21-32) Anion Gap 9 mmol/L (5-15) Blood Urea Nitrogen 33 mg/dL (7-18) H Creatinine 1.2 MG/DL (0.55-1.30) Estimate Glomerular Filtration Rate 59.9 mL/min (>60) Glucose Level 101 MG/DL (74-106) Calcium Level 9.9 MG/DL (8.5-10.1) Total Bilirubin 0.3 MG/DL (0.2-1.0) Aspartate Amino Transferase (AST) 20 U/L (15-37) Alanine Aminotransferase (ALT) 20 U/L (12-78) Alkaline Phosphatase 136 U/L (46-116) H Total Protein 8.9 G/DL (6.4-8.2) H Albumin 3.3 G/DL (3.4-5.0) L Globulin 5.6 g/dL Albumin/Globulin Ratio 0.6 (1.0-2.7) L Last Vital Signs Date Time Temp Pulse Resp B/P (MAP) Pulse Ox O2 Delivery O2 Flow Rate FiO2 12/28/17 12:10 98.0 67 16 100/58 97 Room Air 98.1 Disposition: ADMITTED INPATIENT Condition: Stable Referrals: QUINTON HUMPHRIES (PCP) SCOTTY ROBERTS D.O. Dec 28, 2017 14:06
[2017-12-28] MEDS ORDERED: Nitroglycerin Subl 0.4mg tab SL PRN (14:30)
[2017-12-28] MEDS ORDERED: Albuterol ud Inhalation IN-LINE PRN (14:30)
[2017-12-28] MEDS ORDERED: Mylanta II UD 30ml ORAL PRN (14:30)
[2017-12-28] MEDS ORDERED: LORazepam Inj 2mg/ml 1ml IV PRN (14:30)
[2017-12-28] MEDS ORDERED: Miralax 17gm pkt ORAL PRN (14:30)
[2017-12-28] MEDS ORDERED: Morphine Sulfate 2mg/ml Inj IVP PRN (14:30)
[2017-12-28 15:30] VITALS: BP 104/63
[2017-12-28] MEDS: D5 1/2NS 1,000 ML IV SCH ×3 (16:26→19:00)
[2017-12-28] MEDS: NovoLOG Insulin Flexpen SUBQ SCH ×2 (16:30→21:00)
[2017-12-28 16:37] VITALS: BP 106/64
--- NOTE | 2017-12-28 16:45 | Consultation ---
DATE OF CONSULTATION: 12/28/2017 NOTE: "POOR AUDIO QUALITY" GASTROENTEROLOGY CONSULTATION CONSULTING PHYSICIAN: Tano Dominguez M.D. REFERRING PHYSICIAN: Den Moreau D.O. CHIEF COMPLAINT: G-tube malfunctioning. HISTORY OF PRESENT ILLNESS: Most of the history is per chart. This is a 72-year-old patient known from recent admission to [facility]. In last admission, he was admitted with GI bleed, underwent endoscopy and colonoscopy which did not show any evidence for any bleeding. At this time, the patient is admitted because G-tube unknown if it came out or it was misplaced and in the ER, the physician put the G-tube back in, but the wall was closed. PAST MEDICAL HISTORY: 1. Anemia. 2. Gastritis. 3. Colonic polyps. 4. COPD. 5. Chronic respiratory failure, with trach. 6. Dysphagia with PEG. 7. Seizure disorder. 8. History of pacemaker placement. ALLERGIES: Chlorpromazine and erythromycin. PAST SURGICAL HISTORY: Tracheostomy. MEDICATIONS: Refer to medication reconciliation list. SOCIAL HISTORY: Currently lives in a assisted. No recent history of tobacco, alcohol, or drug abuse. FAMILY HISTORY: Noncontributory. REVIEW OF SYSTEMS: Unable to obtain. PHYSICAL EXAMINATION: VITAL SIGNS: Temperature is 98, pulse is 70, respirations 14, blood pressure . HEENT: Normocephalic and atraumatic. Mildly pale conjunctivae. NECK: Supple. No evidence of lymphadenopathy. Trach in place. CARDIOVASCULAR: Regular rhythm. Plus S1 and S2. No obvious murmur. LUNGS: Decreased breath sounds bilaterally based on supine exam. ABDOMEN: Soft and nontender. There is a scar from prior abdominal surgery. G-tube site is closed and leaking just a little bit. Abdomen is otherwise no rebound, no guarding, no peritoneal sign. EXTREMITIES: No cyanosis. No clubbing. No edema. LABORATORY DATA: White count is 9.1, hemoglobin 11.3, platelet 327,000. Sodium 141, potassium 4.3. ASSESSMENT AND PLAN: This is a 72-year-old male with G-tube came out and site almost closed. Plan to admit. IV fluids for hydration. N.p.o. Plan to place the G-tube on Saturday. I want to thank Dr. Den Moreau for this kind referral. Tano Dominguez M.D. DR: Sam JOB#: [id number] CC: Den Moreau D.O.
[2017-12-28 17:45] VITALS: BP 101/64
[2017-12-28 18:10] VITALS: BP 107/58
[2017-12-28] MEDS: carBAMazepine 200mg tab GT SCH ×2 (18:31→23:52)
[2017-12-28 20:00] VITALS: BP 102/66
[2017-12-28] MEDS: Heparin 5000 units/ml inj SUBQ SCH (21:23)
--- NOTE | 2017-12-28 21:33 | Consultation ---
History of Present Illness General Date patient seen: Dec 28, 2017 Chief Complaint: Malfunctioning Gastric Tube Reason for Consultation: chronic respiratory failure Present Illness HPI 72 year old male with hx of chronic respiratory failure, trach/vent peg, presented from a [place] [facility] facility for G-tube replacement. The G-tube was dislodged. It was found today as dislodged by the staff. The patient is chronically ill. He is admitted to [facility] for PEG placement Allergies: Coded Allergies: CHLORPROMAZINE (Verified Allergy, Unknown, 06/23/17) ERYTHROMYCIN BASE (Verified Allergy, Unknown, 06/23/17) PROCHLORPERAZINE (Unverified Allergy, Unknown, 12/28/17) Uncoded Allergies: TAPE (Allergy, Unknown, 06/23/17) Medication History Scheduled Arginine/Glutamine/Calcium Hmb (Jareth Packet), 1 EACH GT BID, (Reported) Ascorbic Acid* (Vitamin C*), 500 MG ORAL DAILY, (Reported) Carbamazepine (Tegretol*), 200 MG PO FOUR TIMES A DAY, (Reported) Carbamazepine (Carbamazepine), 200 MG ORAL FOUR TIMES A DAY, (Reported) Carbamazepine (Tegretol), 100 MG PO QID, (Reported) Carbamazepine (Tegretol*), 200 MG GT EVERY 6 HOURS, (Reported) Docusate Sodium* (Colace*), 100 MG ORAL DAILY, (Reported) Docusate Sodium* (Docusate Sodium*), 100 MG GT DAILY, (Reported) Enoxaparin* (Lovenox*), 40 MG SUBQ DAILY, (Reported) Ipratropium/Albuterol Sulfate (DuoNeb 0.5-3(2.5)mg/3ml), 3 ML HHN Q4HR, ( Reported) Lactulose (Lactulose*), 30 ML ORAL Q6HR, (Reported) Levetiracetam* (Levetiracetam*), 500 MG ORAL TWICE A DAY, (Reported) Lorazepam* (Ativan*), 0.5 MG IVINF Q4HR, (Reported) Magnesium Hydroxide* (Milk Of Magnesia*), 30 ML ORAL DAILY, (Reported) Methylprednisolone Sod Succ (Solu-Medrol), 60 MG IV Q6HR, (Reported) Midodrine* (Proamatine*), 5 MG ORAL BID, (Reported) Midodrine* (Proamatine*), 10 MG GT THREE TIMES A DAY, (Reported) Morphine Sulfate (Morphine Sulfate), 2 MG IV Q4HR, (Reported) Multivitamin With Minerals (Multivitamins With Minerals*), 1 TAB GT DAILY, ( Reported) Multivitamins* (Multivitamins*), 1 TAB ORAL DAILY, (Reported) Na Phos,M-B/Na Phos,Di-Ba* (Fleet Enema*), 133 ML RECTAL DAILY, (Reported) Olanzapine (Olanzapine), 20 MG ORAL BEDTIME, (Reported) Olanzapine* (Zyprexa*), 15 MG ORAL DAILY, (Reported) Olanzapine* (Zyprexa*), 10 MG GT BEDTIME, (Reported) Pantoprazole Sodium (Protonix), 40 MG GT DAILY, (Reported) Pantoprazole* (Protonix*), 40 MG ORAL DAILY, (Reported) Bmdeyqbxyphu-Tuih-Mwuyfovm,Iso (Zosyn 3.375 Gm Pre Mix-Bag), 3.375 GM IVPB EVERY 8 HOURS, (Reported) Quetiapine Fumarate* (Seroquel*), 200 MG ORAL DAILY, (Reported) Temazepam (Temazepam*), 15 MG ORAL BEDTIME, (Reported) Theophylline Anhydrous (Theophylline), 100 MG PO Q12HR, (Reported) Theophylline Anhydrous (Theophylline), 30 MG PO BID, (Reported) Valproate Sodium (Depakene), 250 MG PO BID, (Reported) Vancomycin Hcl/D5w (Vancomycin-D5w 1 G/250 Ml), 1.25 GM IVPB Q24H, (Reported) Zinc Sulfate (Zinc Sulfate*), 220 MG GT DAILY, (Reported) Scheduled PRN Acetaminophen* (Tylenol Extra Strength*), 500 MG ORAL Q6H PRN for Mild Pain/ Temp > 100.5, (Reported) Acetaminophen* (Acetaminophen 325MG Tablet*), 650 MG ORAL Q4H PRN for Fever/ Headache/Mild Pain, (Reported) Acetaminophen* (Acetaminophen 325MG Tablet*), 650 MG GT Q4H PRN for Fever/ Headache/Mild Pain, (Reported) Acetylcysteine* (Acetylcysteine*), 200 MG HHN Q6H PRN for Shortness of breath, ( Reported) Albuterol Sulfate* (Albuterol Sulfate Hhn*), 3 ML INH Q6H PRN for Shortness of Breath, (Reported) Ipratropium/Albuterol Sulfate (DuoNeb 0.5-3(2.5)mg/3ml), 3 ML HHN EVERY 3 HOURS PRN for Shortness of Breath, (Reported) Lactulose (Lactulose*), 30 ML GT BID PRN for Constipation, (Reported) Lorazepam* (Ativan*), 1 MG ORAL Q6HR PRN for For Anxiety, (Reported) Nitroglycerin (Nitroglycerin), 0.4 MG SL Q5Min x3 doses PRN for Chest pain, ( Reported) Nitroglycerin (Nitrostat), 0.4 MG SL Q5M X3 DOSES PRN for CHEST PAIN, (Reported) Ondansetron* (Zofran*), 4 MG IV Q6H PRN for Nausea & Vomiting, (Reported) Polyethylene Glycol 3350* (Miralax*), 17 GM GT DAILY PRN for Constipation, ( Reported) Miscellaneous Medications Bisacodyl (Dulcolax), 10 MG RC, (Reported) Ipratropium/Albuterol Sulfate (DuoNeb 0.5-3(2.5)mg/3ml), 3 ML HHN, (Reported) Mag Hydrox/Al Hydrox/Simeth (Shirley-Lanta Liquid), 355 ML PO, (Reported) Patient History Healthcare decision maker N Resuscitation status Advanced Directive on File Past Medical/Surgical History Past Medical/Surgical History: (1) Tracheostomy present (2) History of pacemaker (3) Schizophrenia (4) Chronic respiratory failure Review of Systems All Other Systems: negative except mentioned in HPI Physical Exam General Appearance: WD/WN Lines, tubes and drains: peripheral, trach HEENT: normocephalic, atraumatic Neck: non-tender, normal alignment Respiratory/Chest: chest wall non-tender, rhonchi - left, rhonchi - right Breasts: no masses Cardiovascular/Chest: normal peripheral pulses, normal rate Abdomen: normal bowel sounds, non tender Genitourinary/Rectal: normal genital exam, heme negative stool Extremities: normal range of motion 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 grossly normal Lymphatic: anterior cervical Last 24 Hour Vital Signs Date Time Temp Pulse Resp B/P (MAP) Pulse Ox O2 Delivery O2 Flow Rate FiO2 12/28/17 20:38 73 12 30 12/28/17 19:07 62 15 30 12/28/17 18:10 97.7 70 15 107/58 98 Mechanical Ventilator 30 97.7 12/28/17 17:55 98.1 72 14 101/64 99 Mechanical Ventilator 30 98.1 12/28/17 17:45 98.1 72 14 101/64 99 Mechanical Ventilator 98.1 12/28/17 17:42 30 12/28/17 17:27 71 15 30 12/28/17 16:37 98.1 71 15 106/64 98 Mechanical Ventilator 98.1 12/28/17 15:30 98.1 71 16 104/63 97 Mechanical Ventilator 98.1 12/28/17 14:31 69 12 30 12/28/17 12:36 78 14 30 12/28/17 12:25 98.1 16 100/58 97 Room Air 98.1 12/28/17 12:10 98.0 67 16 100/58 97 Room Air 98.1 Laboratory Tests Test 12/28/17 13:00 12/28/17 18:48 White Blood Count 9.1 K/UL (4.8-10.8) Red Blood Count 3.70 M/UL (4.70-6.10) L Hemoglobin 11.3 G/DL (14.2-18.0) L Hematocrit 33.6 % (42.0-52.0) L Mean Corpuscular Volume 91 FL (80-99) Mean Corpuscular Hemoglobin 30.4 PG (27.0-31.0) Mean Corpuscular Hemoglobin Concent 33.5 G/DL (32.0-36.0) Red Cell Distribution Width 15.2 % (11.6-14.8) H Platelet Count 327 K/UL (150-450) Mean Platelet Volume 5.4 FL (6.5-10.1) L Neutrophils (%) (Auto) 60.7 % (45.0-75.0) Lymphocytes (%) (Auto) 27.4 % (20.0-45.0) Monocytes (%) (Auto) 6.0 % (1.0-10.0) Eosinophils (%) (Auto) 5.0 % (0.0-3.0) H Basophils (%) (Auto) 0.9 % (0.0-2.0) Prothrombin Time 10.7 SEC (9.30-11.50) Prothromb Time International Ratio 1.0 (0.9-1.1) Activated Partial Thromboplast Time 27 SEC (23-33) Sodium Level 141 MMOL/L (136-145) Potassium Level 4.3 MMOL/L (3.5-5.1) Chloride Level 100 MMOL/L (98-107) Carbon Dioxide Level 32 MMOL/L (21-32) Anion Gap 9 mmol/L (5-15) Blood Urea Nitrogen 33 mg/dL (7-18) H Creatinine 1.2 MG/DL (0.55-1.30) Estimat Glomerular Filtration Rate 59.9 mL/min (>60) Glucose Level 101 MG/DL (74-106) Calcium Level 9.9 MG/DL (8.5-10.1) Total Bilirubin 0.3 MG/DL (0.2-1.0) Aspartate Amino Transf (AST/SGOT) 20 U/L (15-37) Alanine Aminotransferase (ALT/SGPT) 20 U/L (12-78) Alkaline Phosphatase 136 U/L (46-116) H Total Protein 8.9 G/DL (6.4-8.2) H Albumin 3.3 G/DL (3.4-5.0) L Globulin 5.6 g/dL Albumin/Globulin Ratio 0.6 (1.0-2.7) L Arterial Blood pH 7.459 (7.350-7.450) Arterial Blood Partial Pressure CO2 39.8 mmHg (35.0-45.0) Arterial Blood Partial Pressure O2 78.3 mmHg (75.0-100.0) Arterial Blood HCO3 27.6 mmol/L (22.0-26.0) H Arterial Blood Oxygen Saturation 95.5 % (92.0-98.0) Arterial Blood Base Excess 3.5 Anthony Test Positive Height (Feet): 6 Height (Inches): 3.00 Weight (Pounds): 231 Medications Current Medications Medications (Trade) Dose Ordered Sig/Karen Route PRN Reason Start Time Stop Time Status Last Admin Dose Admin Acetaminophen (Tylenol) 650 mg Q4H PRN ORAL fever 12/28/17 14:30 01/27/18 14:29 Al Hydroxide/Mg Hydroxide (Mylanta II) 30 ml Q6H PRN ORAL dyspepsia 12/28/17 14:30 01/27/18 14:29 Albuterol Sulfate (Proventil) 2.5 mg Q6H PRN IN-LINE Shortness of Breath 12/28/17 14:30 01/02/18 14:29 Carbamazepine (TEGretol) 200 mg EVERY 6 HOURS GT 12/28/17 18:00 01/27/18 17:59 Dextrose (Dextrose 50%) 25 ml STAT PRN IV Hypoglycemia 12/28/17 14:45 01/27/18 14:44 Dextrose (Dextrose 50%) 50 ml STAT PRN IV Hypoglycemia 12/28/17 14:45 01/27/18 14:44 Dextrose/Sodium Chloride 1,000 ml @ 75 mls/hr [id number] IV 12/28/17 14:24 01/27/18 14:23 12/28/17 17:27 Diphenhydramine HCl (Benadryl) 25 mg Q6H PRN ORAL Itching/Pruritis 12/28/17 14:30 01/27/18 14:29 Heparin Sodium (Porcine) (Heparin 5000 units/ml) 5,000 units EVERY 12 HOURS SUBQ 12/28/17 21:00 01/27/18 20:59 12/28/17 21:23 Insulin Aspart (NovoLOG) BEFORE MEALS AND HS SUBQ 12/28/17 16:30 01/27/18 16:29 Levetiracetam (Keppra) 500 mg Q12HR ORAL 12/28/17 21:00 01/27/18 20:59 12/28/17 21:21 Lorazepam (Ativan 2mg/ml 1ml) 1 mg Q4H PRN IV agitation 12/28/17 14:30 01/04/18 14:29 Morphine Sulfate (Morphine Sulfate) 2 mg Q4H PRN IVP severe Pain (Pain Scale 7-10) 12/28/17 14:30 01/04/18 14:29 Nitroglycerin (Ntg) 0.4 mg Q5M X 3 DOSES PRN SL Prn Chest Pain 12/28/17 14:30 01/27/18 14:29 Olanzapine (ZyPREXA) 15 mg QHS ORAL 12/28/17 21:00 01/27/18 20:59 12/28/17 21:21 Ondansetron HCl (Zofran) 4 mg Q6H PRN IVP Nausea & Vomiting 12/28/17 14:30 01/27/18 14:29 Pantoprazole (Protonix) 40 mg DAILY IV 12/29/17 09:00 01/28/18 08:59 Polyethylene Glycol (Miralax) 17 gm HSPRN PRN ORAL Constipation 12/28/17 14:30 01/27/18 14:29 Temazepam (Restoril) 15 mg HSPRN PRN ORAL Insomnia 12/28/17 14:30 01/04/18 14:29 Assessment/Plan Problem List: (1) Chronic respiratory failure ICD Codes: J96.10 - Chronic respiratory failure, unspecified whether with hypoxia or hypercapnia SNOMED: 41084238 (2) Gastrojejunostomy tube dislodgement ICD Codes: Z43.4 - Encounter for attention to other artificial openings of digestive tract SNOMED: 872405653 (3) Tracheostomy present ICD Codes: Z93.0 - Tracheostomy status SNOMED: 324485472 (4) History of pacemaker ICD Codes: Z95.0 - Presence of cardiac pacemaker SNOMED: 862570957 (5) Schizophrenia ICD Codes: F20.9 - Schizophrenia, unspecified SNOMED: 87254043 (6) penitentiary resident ICD Codes: Z59.3 - Problems related to living in residential institution SNOMED: 430007939 Assessment/Plan npo IV fluids GI evaluation NG tube for meds dvt prophylaxis Naheed Espinoza MD Dec 28, 2017 21:33
[2017-12-29] VITALS: BP 90/48
[2017-12-29 04:00] VITALS: BP 103/51
[2017-12-29 04:43] LABS: EOSINOPHILS % (AUTO) 5.7 % (0.0-3.0); HEMATOCRIT 30.6 % (42.0-52.0); HEMOGLOBIN 10.5 G/DL (14.2-18.0); LYMPHOCYTES % (AUTO) 34.4 % (20.0-45.0); MEAN CORPUSCULAR VOLUME 90 FL (80-99); MONOCYTES % (AUTO) 8.3 % (1.0-10.0); NEUTROPHILS % (AUTO) 50.6 % (45.0-75.0); PLATELET COUNT 273 K/UL (150-450); RED BLOOD COUNT 3.39 M/UL (4.70-6.10); RED CELL DISTRIBUTION WIDTH 15.3 % (11.6-14.8)
[2017-12-29 05:05] LABS: ALANINE AMINOTRANSFERASE 19 U/L (12-78); ALBUMIN/GLOBULIN RATIO 0.6 (1.0-2.7); ALKALINE PHOSPHATASE 123 U/L (46-116); AMYLASE 54 U/L (25-115); ANION GAP 7 mmol/L (5-15); ASPARTATE AMINO TRANSFERASE 21 U/L (15-37); BILIRUBIN,TOTAL 0.4 MG/DL (0.2-1.0); BLOOD UREA NITROGEN 31 mg/dL (7-18); CALCIUM 9.7 MG/DL (8.5-10.1); CARBON DIOXIDE 30 MMOL/L (21-32); CHLORIDE 102 MMOL/L (98-107); CREATININE 1.2 MG/DL (0.55-1.30); POTASSIUM 3.8 MMOL/L (3.5-5.1); SODIUM 139 MMOL/L (136-145)
[2017-12-29] MEDS: carBAMazepine 200mg tab GT SCH ×4 (05:38→23:45)
[2017-12-29] MEDS: NovoLOG Insulin Flexpen SUBQ SCH ×4 (05:42→23:45)
[2017-12-29] MEDS: D5 1/2NS 1,000 ML IV SCH ×2 (07:01→18:53)
--- NOTE | 2017-12-29 07:37 | General Progress Note ---
Assessment/Plan Problem List: (1) intermediate resident ICD Codes: Z59.3 - Problems related to living in residential institution SNOMED: 958797608 (2) Tracheostomy present ICD Codes: Z93.0 - Tracheostomy status SNOMED: 624962312 (3) History of pacemaker ICD Codes: Z95.0 - Presence of cardiac pacemaker SNOMED: 074371559 (4) Schizophrenia ICD Codes: F20.9 - Schizophrenia, unspecified SNOMED: 99174304 (5) Gastrojejunostomy tube dislodgement ICD Codes: Z43.4 - Encounter for attention to other artificial openings of digestive tract SNOMED: 031670870 (6) GIB (gastrointestinal bleeding) ICD Codes: K92.2 - Gastrointestinal hemorrhage, unspecified SNOMED: 81080698 Assessment/Plan plan PEG placement tomorrow Subjective ROS Limited/Unobtainable: No Allergies: Coded Allergies: CHLORPROMAZINE (Verified Allergy, Unknown, 06/23/17) ERYTHROMYCIN BASE (Verified Allergy, Unknown, 06/23/17) PROCHLORPERAZINE (Unverified Allergy, Unknown, 12/28/17) Uncoded Allergies: TAPE (Allergy, Unknown, 06/23/17) Objective Last 24 Hour Vital Signs Date Time Temp Pulse Resp B/P (MAP) Pulse Ox O2 Delivery O2 Flow Rate FiO2 12/29/17 07:07 61 12 30 12/29/17 04:57 65 12 30 12/29/17 04:00 98.3 12 103/51 98 Mechanical Ventilator 30 98.3 12/29/17 04:00 64 12/29/17 04:00 30 12/29/17 02:57 60 12 30 12/29/17 00:41 62 12 30 12/29/17 00:00 63 12/29/17 00:00 30 12/29/17 00:00 97.5 12 90/48 98 Mechanical Ventilator 30 97.5 12/28/17 22:54 60 13 30 12/28/17 20:38 73 12 30 12/28/17 20:00 88 12/28/17 20:00 97.7 12 102/66 99 Mechanical Ventilator 30 97.7 12/28/17 20:00 97.7 63 12 102/66 99 Mechanical Ventilator 30 97.7 12/28/17 19:07 62 15 30 12/28/17 19:00 30 12/28/17 18:10 97.7 70 15 107/58 98 Mechanical Ventilator 30 97.7 12/28/17 17:55 98.1 72 14 101/64 99 Mechanical Ventilator 30 98.1 12/28/17 17:45 98.1 72 14 101/64 99 Mechanical Ventilator 98.1 12/28/17 17:42 30 12/28/17 17:27 71 15 30 12/28/17 16:37 98.1 71 15 106/64 98 Mechanical Ventilator 98.1 12/28/17 15:30 98.1 71 16 104/63 97 Mechanical Ventilator 98.1 12/28/17 14:31 69 12 30 12/28/17 12:36 78 14 30 12/28/17 12:25 98.1 16 100/58 97 Room Air 98.1 12/28/17 12:10 98.0 67 16 100/58 97 Room Air 98.1 Intake and Output 12/28/17 12/29/17 19:00 07:00 Intake Total 187.5 ml 900 ml Output Total 350 ml Balance 187.5 ml 550 ml Intake IV Total 187.5 ml 900 ml Output Urine Total 350 ml # Bowel Movements 1 3 Laboratory Tests 12/28/17 13:00: White Blood Count 9.1, Red Blood Count 3.70L, Hemoglobin 11.3L, Hematocrit 33.6L , Mean Corpuscular Volume 91, Mean Corpuscular Hemoglobin 30.4, Mean Corpuscular Hemoglobin Concent 33.5, Red Cell Distribution Width 15.2H, Platelet Count 327, Mean Platelet Volume 5.4L, Neutrophils (%) (Auto) 60.7, Lymphocytes (%) (Auto) 27.4, Monocytes (%) (Auto) 6.0, Eosinophils (%) (Auto) 5.0H, Basophils (%) (Auto) 0.9, Prothrombin Time 10.7, Prothromb Time International Ratio 1.0, Activated Partial Thromboplast Time 27, Sodium Level 141, Potassium Level 4.3, Chloride Level 100, Carbon Dioxide Level 32, Anion Gap 9, Blood Urea Nitrogen 33H, Creatinine 1.2, Estimat Glomerular Filtration Rate 59.9, Glucose Level 101, Calcium Level 9.9, Total Bilirubin 0.3, Aspartate Amino Transf (AST/SGOT) 20, Alanine Aminotransferase (ALT/SGPT) 20, Alkaline Phosphatase 136H, Total Protein 8.9H, Albumin 3.3L, Globulin 5.6, Albumin/ Globulin Ratio 0.6L 12/28/17 18:48: Arterial Blood pH 7.459H, Arterial Blood Partial Pressure CO2 39.8, Arterial Blood Partial Pressure O2 78.3, Arterial Blood HCO3 27.6H, Arterial Blood Oxygen Saturation 95.5, Arterial Blood Base Excess 3.5, Anthony Test Positive 12/29/17 03:20: White Blood Count 6.0, Red Blood Count 3.39L, Hemoglobin 10.5L, Hematocrit 30.6L , Mean Corpuscular Volume 90, Mean Corpuscular Hemoglobin 31.1H, Mean Corpuscular Hemoglobin Concent 34.5, Red Cell Distribution Width 15.3H, Platelet Count 273, Mean Platelet Volume 6.1L, Neutrophils (%) (Auto) 50.6, Lymphocytes (%) (Auto) 34.4, Monocytes (%) (Auto) 8.3, Eosinophils (%) (Auto) 5.7H, Basophils (%) (Auto) 1.0, Activated Partial Thromboplast Time 29, Sodium Level 139, Potassium Level 3.8, Chloride Level 102, Carbon Dioxide Level 30, Anion Gap 7, Blood Urea Nitrogen 31H, Creatinine 1.2, Estimat Glomerular Filtration Rate 59.9, Glucose Level 100, Calcium Level 9.7, Total Bilirubin 0.4 , Aspartate Amino Transf (AST/SGOT) 21, Alanine Aminotransferase (ALT/SGPT) 19, Alkaline Phosphatase 123H, Total Protein 8.2, Albumin 3.0L, Globulin 5.2, Albumin/Globulin Ratio 0.6L, Amylase Level 54, Lipase 192 Height (Feet): 6 Height (Inches): 3.00 Weight (Pounds): 231 General Appearance: confused EENT: normal ENT inspection Neck: supple Cardiovascular: normal rate Respiratory/Chest: decreased breath sounds Abdomen: normal bowel sounds, non tender, soft Extremities: non-tender MICAH LAYNE Dec 29, 2017 07:37
[2017-12-29 08:00] VITALS: BP 92/54
[2017-12-29] MEDS: levETIRAcetam 500mg/NS100ml 100 ML IVPB SCH ×2 (09:46→21:00)
[2017-12-29] MEDS: Pantoprazole Inj IV SCH (09:46)
[2017-12-29] MEDS: Heparin 5000 units/ml inj SUBQ SCH ×2 (09:48→21:00)
--- NOTE | 2017-12-29 09:54 | Pulmonology Progress Note ---
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: supervisor [employer], 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 Discussed with: nurses, case repairer Subjective ROS Limited/Unobtainable: No Constitutional: Reports: no symptoms HEENT: Repors: no symptoms Respiratory: Reports: no symptoms Cardiovascular: Reports: no symptoms Allergies: Coded Allergies: CHLORPROMAZINE (Verified Allergy, Unknown, 06/23/17) ERYTHROMYCIN BASE (Verified Allergy, Unknown, 06/23/17) PROCHLORPERAZINE (Unverified Allergy, Unknown, 12/28/17) Uncoded Allergies: TAPE (Allergy, Unknown, 06/23/17) Objective Last 24 Hour Vital Signs Date Time Temp Pulse Resp B/P (MAP) Pulse Ox O2 Delivery O2 Flow Rate FiO2 12/29/17 09:17 66 12 30 12/29/17 08:00 30 12/29/17 08:00 98.0 16 92/54 98 Mechanical Ventilator 30 98.0 12/29/17 08:00 62 12/29/17 07:07 61 12 30 12/29/17 04:57 65 12 30 12/29/17 04:00 98.3 12 103/51 98 Mechanical Ventilator 30 98.3 12/29/17 04:00 64 12/29/17 04:00 30 12/29/17 02:57 60 12 30 12/29/17 00:41 62 12 30 12/29/17 00:00 63 12/29/17 00:00 30 12/29/17 00:00 97.5 12 90/48 98 Mechanical Ventilator 30 97.5 12/28/17 22:54 60 13 30 12/28/17 20:38 73 12 30 12/28/17 20:00 88 12/28/17 20:00 97.7 12 102/66 99 Mechanical Ventilator 30 97.7 12/28/17 20:00 97.7 63 12 102/66 99 Mechanical Ventilator 30 97.7 12/28/17 19:07 62 15 30 12/28/17 19:00 30 12/28/17 18:10 97.7 70 15 107/58 98 Mechanical Ventilator 30 97.7 12/28/17 17:55 98.1 72 14 101/64 99 Mechanical Ventilator 30 98.1 12/28/17 17:45 98.1 72 14 101/64 99 Mechanical Ventilator 98.1 12/28/17 17:42 30 12/28/17 17:27 71 15 30 12/28/17 16:37 98.1 71 15 106/64 98 Mechanical Ventilator 98.1 12/28/17 15:30 98.1 71 16 104/63 97 Mechanical Ventilator 98.1 12/28/17 14:31 69 12 30 12/28/17 12:36 78 14 30 12/28/17 12:25 98.1 16 100/58 97 Room Air 98.1 12/28/17 12:10 98.0 67 16 100/58 97 Room Air 98.1 Intake and Output 12/28/17 12/29/17 19:00 07:00 Intake Total 187.5 ml 900 ml Output Total 350 ml Balance 187.5 ml 550 ml Intake IV Total 187.5 ml 900 ml Output Urine Total 350 ml # Bowel Movements 1 3 General Appearance: WD/WN Respiratory/Chest: chest wall non-tender, lungs clear Cardiovascular: normal peripheral pulses, normal rate Abdomen: normal bowel sounds, soft, non tender Genitourinary: normal external genitalia Extremities: no cyanosis 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 normal Lymphatic: no neck adenopathy Musculoskeletal: normal muscle bulk Laboratory Tests 12/28/17 13:00: White Blood Count 9.1, Red Blood Count 3.70L, Hemoglobin 11.3L, Hematocrit 33.6L , Mean Corpuscular Volume 91, Mean Corpuscular Hemoglobin 30.4, Mean Corpuscular Hemoglobin Concent 33.5, Red Cell Distribution Width 15.2H, Platelet Count 327, Mean Platelet Volume 5.4L, Neutrophils (%) (Auto) 60.7, Lymphocytes (%) (Auto) 27.4, Monocytes (%) (Auto) 6.0, Eosinophils (%) (Auto) 5.0H, Basophils (%) (Auto) 0.9, Prothrombin Time 10.7, Prothromb Time International Ratio 1.0, Activated Partial Thromboplast Time 27, Sodium Level 141, Potassium Level 4.3, Chloride Level 100, Carbon Dioxide Level 32, Anion Gap 9, Blood Urea Nitrogen 33H, Creatinine 1.2, Estimat Glomerular Filtration Rate 59.9, Glucose Level 101, Calcium Level 9.9, Total Bilirubin 0.3, Aspartate Amino Transf (AST/SGOT) 20, Alanine Aminotransferase (ALT/SGPT) 20, Alkaline Phosphatase 136H, Total Protein 8.9H, Albumin 3.3L, Globulin 5.6, Albumin/ Globulin Ratio 0.6L 12/28/17 18:48: Arterial Blood pH 7.459H, Arterial Blood Partial Pressure CO2 39.8, Arterial Blood Partial Pressure O2 78.3, Arterial Blood HCO3 27.6H, Arterial Blood Oxygen Saturation 95.5, Arterial Blood Base Excess 3.5, Anthony Test Positive 12/29/17 03:20: White Blood Count 6.0, Red Blood Count 3.39L, Hemoglobin 10.5L, Hematocrit 30.6L , Mean Corpuscular Volume 90, Mean Corpuscular Hemoglobin 31.1H, Mean Corpuscular Hemoglobin Concent 34.5, Red Cell Distribution Width 15.3H, Platelet Count 273, Mean Platelet Volume 6.1L, Neutrophils (%) (Auto) 50.6, Lymphocytes (%) (Auto) 34.4, Monocytes (%) (Auto) 8.3, Eosinophils (%) (Auto) 5.7H, Basophils (%) (Auto) 1.0, Activated Partial Thromboplast Time 29, Sodium Level 139, Potassium Level 3.8, Chloride Level 102, Carbon Dioxide Level 30, Anion Gap 7, Blood Urea Nitrogen 31H, Creatinine 1.2, Estimat Glomerular Filtration Rate 59.9, Glucose Level 100, Calcium Level 9.7, Total Bilirubin 0.4 , Aspartate Amino Transf (AST/SGOT) 21, Alanine Aminotransferase (ALT/SGPT) 19, Alkaline Phosphatase 123H, Total Protein 8.2, Albumin 3.0L, Globulin 5.2, Albumin/Globulin Ratio 0.6L, Amylase Level 54, Lipase 192 Current Medications Medications (Trade) Dose Ordered Sig/Karen Route PRN Reason Start Time Stop Time Status Last Admin Dose Admin Acetaminophen (Tylenol) 650 mg Q4H PRN ORAL fever 12/28/17 14:30 01/27/18 14:29 Al Hydroxide/Mg Hydroxide (Mylanta II) 30 ml Q6H PRN ORAL dyspepsia 12/28/17 14:30 01/27/18 14:29 Albuterol Sulfate (Proventil) 2.5 mg Q6H PRN IN-LINE Shortness of Breath 12/28/17 14:30 01/02/18 14:29 Carbamazepine (TEGretol) 200 mg EVERY 6 HOURS GT 12/28/17 18:00 01/27/18 17:59 12/29/17 05:38 Dextrose (Dextrose 50%) 25 ml STAT PRN IV Hypoglycemia 12/28/17 14:45 01/27/18 14:44 Dextrose (Dextrose 50%) 50 ml STAT PRN IV Hypoglycemia 12/28/17 14:45 01/27/18 14:44 Dextrose/Sodium Chloride 1,000 ml @ 75 mls/hr [id number] IV 12/28/17 14:24 01/27/18 14:23 12/29/17 07:01 Diphenhydramine HCl (Benadryl) 25 mg Q6H PRN ORAL Itching/Pruritis 12/28/17 14:30 01/27/18 14:29 Heparin Sodium (Porcine) (Heparin 5000 units/ml) 5,000 units EVERY 12 HOURS SUBQ 12/28/17 21:00 01/27/18 20:59 12/28/17 21:23 Insulin Aspart (NovoLOG) BEFORE MEALS AND HS SUBQ 12/28/17 16:30 01/27/18 16:29 12/29/17 05:42 Levetiracetam 100 ml @ 400 mls/hr Q12HR IVPB 12/29/17 09:00 01/28/18 08:59 Lorazepam (Ativan 2mg/ml 1ml) 1 mg Q4H PRN IV agitation 12/28/17 14:30 01/04/18 14:29 Morphine Sulfate (Morphine Sulfate) 2 mg Q4H PRN IVP severe Pain (Pain Scale 7-10) 12/28/17 14:30 01/04/18 14:29 Nitroglycerin (Ntg) 0.4 mg Q5M X 3 DOSES PRN SL Prn Chest Pain 12/28/17 14:30 01/27/18 14:29 Olanzapine (ZyPREXA) 15 mg QHS ORAL 12/28/17 21:00 01/27/18 20:59 12/28/17 21:21 Ondansetron HCl (Zofran) 4 mg Q6H PRN IVP Nausea & Vomiting 12/28/17 14:30 01/27/18 14:29 Pantoprazole (Protonix) 40 mg DAILY IV 12/29/17 09:00 01/28/18 08:59 Polyethylene Glycol (Miralax) 17 gm HSPRN PRN ORAL Constipation 12/28/17 14:30 01/27/18 14:29 Temazepam (Restoril) 15 mg HSPRN PRN ORAL Insomnia 12/28/17 14:30 01/04/18 14:29 Naheed Espinoza MD Dec 29, 2017 09:54
--- NOTE | 2017-12-29 11:21 | Diagnostic Imaging Report ---
Indication: Abdominal pain, abnormal liver function tests, abnormal renal function tests Technique: Bowen-scale and duplex images of the upper abdomen were obtained Comparison: none Findings: Gallbladder is unremarkable, without stones, wall thickening, nor pericholecystic fluid. Sonographic Tellez's sign is negative. Common bile duct measures 3 mm in diameter. No intrahepatic biliary ductal dilatation. Liver demonstrates normal echogenicity, no focal abnormality. Portal vein and hepatic veins are patent. Pancreas is incompletely visualized due to overlying bowel gas, visualized portions are unremarkable. Spleen is unremarkable. Left kidney measures 10.6 cm in length. Right kidney measures 10 cm length. Both kidneys demonstrate normal echogenicity. There is no hydronephrosis. No focal abnormality . Non-aneurysmal abdominal aorta . Impression: Essentially unremarkable exam. Negative for gallstones, dilated ducts, or other significant abnormality Note suboptimal visualization of the pancreas due to overlying bowel gas
[2017-12-29 12:00] VITALS: BP 101/48
[2017-12-29 16:00] VITALS: BP 91/60
--- NOTE | 2017-12-29 19:45 | History and Physical Report ---
DATE OF ADMISSION: 12/28/2017 APPROXIMATE TIME: 7 a.m. CONSULTANTS: 1. Naheed Espinoza M.D. 2. Tano Dominguez M.D. CHIEF COMPLAINT: G-tube malfunction. BRIEF HISTORY: This is a 72-year-old male from [facility] presented to [place] [facility] with G-tube malfunction, apparently it slipped down and the ER doctor was unable to put back in. The patient diagnosed with above, admitted to [facility] for further care due to his respiratory failure, trach, vent status, currently calm, sleeping in bed, not talking much. PAST MEDICAL HISTORY: Chronic respiratory failure, weakness, and encephalopathy. PAST SURGICAL HISTORY: Trach, pacemaker, G-tube. MEDICATIONS: Protonix, Keppra, Zyprexa, Tegretol, NovoLog, Proventil, Tylenol, morphine, MiraLAX, Zofran, Restoril, Benadryl, nitroglycerin, Mylanta. ALLERGIES: Chlorpromazine, erythromycin, and prochlorperazine. SOCIAL HISTORY: Unable to obtain secondary to the patient's condition. REVIEW OF SYSTEMS: Unavailable. PHYSICAL EXAMINATION: GENERAL: Lethargic in bed, nonverbal. VITAL SIGNS: Temperature 98, pulse 65, respiratory rate 12, blood pressure 103/51. CARDIOVASCULAR: No murmurs. LUNGS: Distant and clear. ABDOMEN: Bowel sounds positive. Nontender. Nondistended. EXTREMITIES: No cyanosis, clubbing, or edema. NEUROLOGIC: The patient is moving all extremities, but does not follow commands. LABORATORY AND DIAGNOSTIC DATA: Hemoglobin 10.5, otherwise CBC is normal. BMP shows BUN 31, alkaline phosphatase 123, albumin 3.0, otherwise BMP is normal. INR is 1.0 and PTT 29. ASSESSMENT: 1. G-tube malfunction. 2. Respiratory failure. 3. Anemia. 4. Hypoalbumin. 5. Weakness. 6. Encephalopathy. PLAN: 1. Continue previous medications. 2. 3. GI followup. 4. OT/PT. 5. Dietary evaluation. 6. CBC and BMP in morning. 7. We will continue follow the patient medically. Den Moreau D.O. DR: Perez JOB#: [id number] CC:
[2017-12-29 20:00] VITALS: BP 95/57
[2017-12-29] MEDS ORDERED: D5 1/2NS 1000ml IV ONE (22:44)
[2017-12-29] MEDS ORDERED: Tubing IV Secondary IV ONE (22:44)
[2017-12-29] MEDS ORDERED: Tubing Blood Filter IV ONE (22:44)
[2017-12-30] VITALS: BP 90/58
[2017-12-30 04:00] VITALS: BP 90/50
[2017-12-30 04:42] LABS: BASOPHILS % (AUTO) 1.5 % (0.0-2.0); EOSINOPHILS % (AUTO) 6.6 % (0.0-3.0); HEMATOCRIT 28.7 % (42.0-52.0); LYMPHOCYTES % (AUTO) 34.8 % (20.0-45.0); MEAN CORPUSCULAR VOLUME 90 FL (80-99); PLATELET COUNT 291 K/UL (150-450); RED BLOOD COUNT 3.19 M/UL (4.70-6.10); WHITE BLOOD COUNT 5.4 K/UL (4.8-10.8)
[2017-12-30 04:54] LABS: INR 1.1 (0.9-1.1)
[2017-12-30 05:00] LABS: ALANINE AMINOTRANSFERASE 27 U/L (12-78); ALBUMIN 2.9 G/DL (3.4-5.0); ALBUMIN/GLOBULIN RATIO 0.5 (1.0-2.7); ALKALINE PHOSPHATASE 132 U/L (46-116); ANION GAP 8 mmol/L (5-15); ASPARTATE AMINO TRANSFERASE 31 U/L (15-37); BILIRUBIN,TOTAL 0.5 MG/DL (0.2-1.0); BLOOD UREA NITROGEN 28 mg/dL (7-18); CARBON DIOXIDE 26 MMOL/L (21-32); CHLORIDE 102 MMOL/L (98-107); CREATININE 1.4 MG/DL (0.55-1.30); POTASSIUM 3.8 MMOL/L (3.5-5.1); SODIUM 136 MMOL/L (136-145)
[2017-12-30] MEDS: carBAMazepine 200mg tab GT SCH ×3 (05:19→18:00)
[2017-12-30] MEDS: NovoLOG Insulin Flexpen SUBQ SCH ×3 (05:50→17:13)
--- NOTE | 2017-12-30 06:45 | Consultation ---
DATE OF CONSULTATION: 12/30/2017 INITIAL PSYCHIATRIC EVALUATION CONSULTING PHYSICIAN: Devon Castillo M.D. HISTORY OF PRESENT ILLNESS: This is a 72-year-old male patient came in because he had to get the G-tube replaced and so that was the main reason for his admission because he needed G-tube replacement, but this patient is confused and disorganized. He has underlying diagnosis of schizoaffective, bipolar type. So, he has increased mood lability, agitation and racing thoughts, worsened by the stress of his medical illness. Also, he has altered mental status. His cognition has declined below baseline. So, his attending has requested daily psychiatric consultation throughout his hospital course in order to manage his mood lability, agitation, and to prevent any further decline in his cognition. PAST MEDICAL HISTORY: Urinary tract infection, status post pacemaker placement, respiratory failure. The patient also has acute encephalopathy and chronic respiratory failure, sepsis, dehydration, and lower GI bleeding. ALLERGIES: The patient has allergies to chlorpromazine, erythromycin, prochlorperazine, and tape. SOCIAL HISTORY: This patient is currently living in [facility]. Financially supported by [employer] and Medicare. PSYCHIATRIC HISTORY: Schizoaffective, bipolar type. The patient has had multiple psychiatric admissions. PSYCHOTROPIC MEDICATIONS: On admission, the patient is currently on Zyprexa 15 mg daily, Ativan 1 mg every 6 hours p.r.n., and Tegretol 200 mg every 6 hours per G-tube, confusion and disorganized thought process. MENTAL STATUS EXAMINATION: This is a 72-year-old male patient. Appearance is disheveled. Attitude, irritable and agitated. Affect, guarded and restricted. Intellect poor. Mood depressed and anxious. Motor activity, psychomotor agitation. Attention span is poor. Orientation x2. Speech is pressured. Thought process, disorganized and illogical. Thought content, auditory hallucinations, paranoid delusions. Insight and judgment is poor. DIAGNOSIS: Schizoaffective, bipolar type. PLAN: My plan for this patient is I am going to treat this patient with psychotropic medication regimen of Tegretol 200 mg per G-tube every 6 hours to stabilize his mood and also I am going to treat him with Ativan 1 mg IV q.4 hours p.r.n. anxiety and agitation, and in addition to that, I am going to continue this patient on Zyprexa at a dose of 15 mg per G-tube at bedtime to reduce psychosis and mood lability. Also, I provided 20 minutes of supportive therapy. Encouraged him to interact appropriately with staff and other patients. The patient continued to be followed by Psychiatry throughout his hospital course. Chart reviewed. Discussed with staff. The patient seen and assessed in his bedside. I would like to thank, Dr. Den Moreau, for this interesting consultation. Devon Castillo M.D. DR: ALLISON JOB#: [id number] CC:
[2017-12-30] MEDS: D5 1/2NS 1,000 ML IV SCH ×2 (07:27→22:42)
[2017-12-30 08:00] VITALS: BP 92/65
[2017-12-30] MEDS: levETIRAcetam 500mg/NS100ml 100 ML IVPB SCH ×2 (08:55→21:04)
[2017-12-30] MEDS: Heparin 5000 units/ml inj SUBQ SCH ×2 (09:00→21:00)
[2017-12-30] MEDS: Pantoprazole Inj IV SCH (09:00)
--- NOTE | 2017-12-30 10:14 | General Progress Note ---
Assessment/Plan Problem List: (1) [facility] resident ICD Codes: Z59.3 - Problems related to living in residential institution SNOMED: 968469968 (2) Tracheostomy present ICD Codes: Z93.0 - Tracheostomy status SNOMED: 017986300 (3) History of pacemaker ICD Codes: Z95.0 - Presence of cardiac pacemaker SNOMED: 521844465 (4) Schizophrenia ICD Codes: F20.9 - Schizophrenia, unspecified SNOMED: 41002342 (5) Gastrojejunostomy tube dislodgement ICD Codes: Z43.4 - Encounter for attention to other artificial openings of digestive tract SNOMED: 866656243 (6) GIB (gastrointestinal bleeding) ICD Codes: K92.2 - Gastrointestinal hemorrhage, unspecified SNOMED: 03982423 Assessment/Plan plan PEG placement today Subjective ROS Limited/Unobtainable: No Allergies: Coded Allergies: CHLORPROMAZINE (Verified Allergy, Unknown, 06/23/17) ERYTHROMYCIN BASE (Verified Allergy, Unknown, 06/23/17) PROCHLORPERAZINE (Unverified Allergy, Unknown, 12/28/17) Uncoded Allergies: TAPE (Allergy, Unknown, 06/23/17) Objective Last 24 Hour Vital Signs Date Time Temp Pulse Resp B/P (MAP) Pulse Ox O2 Delivery O2 Flow Rate FiO2 12/30/17 08:00 97.3 14 92/65 98 Mechanical Ventilator 30 97.3 12/30/17 08:00 30 12/30/17 07:35 60 12/30/17 06:54 60 21 30 12/30/17 05:25 63 13 30 12/30/17 04:00 98.5 16 90/50 100 Mechanical Ventilator 30 98.5 12/30/17 04:00 60 12/30/17 04:00 30 12/30/17 02:44 60 12 30 12/30/17 00:36 60 12 30 12/30/17 00:00 98.6 16 90/58 97 Mechanical Ventilator 30 98.6 12/30/17 00:00 30 12/30/17 00:00 60 12/29/17 22:47 70 16 30 12/29/17 20:39 60 12 30 12/29/17 20:00 30 12/29/17 20:00 60 12/29/17 20:00 98.0 12 95/57 97 Mechanical Ventilator 30 98.0 12/29/17 18:38 62 12 30 12/29/17 17:10 85 25 30 12/29/17 16:00 30 12/29/17 16:00 98.7 12 91/60 95 Mechanical Ventilator 30 98.7 12/29/17 16:00 66 12/29/17 14:35 65 12 30 12/29/17 12:36 61 12 30 12/29/17 12:00 30 12/29/17 12:00 98.4 15 101/48 98 Mechanical Ventilator 30 98.4 12/29/17 12:00 60 12/29/17 11:07 62 15 30 Intake and Output 12/29/17 12/30/17 19:00 07:00 Intake Total 925 ml 1300 ml Output Total 50 ml 650 ml Balance 875 ml 650 ml Intake IV Total 925 ml 1300 ml Output Urine Total 50 ml 650 ml # Voids 1 Laboratory Tests 12/30/17 03:27: White Blood Count 5.4, Red Blood Count 3.19L, Hemoglobin 10.0L, Hematocrit 28.7L , Mean Corpuscular Volume 90, Mean Corpuscular Hemoglobin 31.5H, Mean Corpuscular Hemoglobin Concent 34.9, Red Cell Distribution Width 15.0H, Platelet Count 291, Mean Platelet Volume 6.1L, Neutrophils (%) (Auto) 47.0, Lymphocytes (%) (Auto) 34.8, Monocytes (%) (Auto) 10.0, Eosinophils (%) (Auto) 6.6H, Basophils (%) (Auto) 1.5, Prothrombin Time 11.1, Prothromb Time International Ratio 1.1, Activated Partial Thromboplast Time 29, Sodium Level 136, Potassium Level 3.8, Chloride Level 102, Carbon Dioxide Level 26, Anion Gap 8, Blood Urea Nitrogen 28H, Creatinine 1.4H, Estimat Glomerular Filtration Rate 50.1, Glucose Level 97, Calcium Level 10.0, Phosphorus Level 5.0H, Magnesium Level 2.3, Total Bilirubin 0.5, Aspartate Amino Transf (AST/SGOT) 31, Alanine Aminotransferase (ALT/SGPT) 27, Alkaline Phosphatase 132H, Total Protein 8.4H, Albumin 2.9L, Globulin 5.5, Albumin/Globulin Ratio 0.5L Height (Feet): 6 Height (Inches): 6.00 Weight (Pounds): 174 General Appearance: no apparent distress EENT: normal ENT inspection Neck: supple Cardiovascular: normal rate Respiratory/Chest: decreased breath sounds Abdomen: normal bowel sounds, non tender, soft Extremities: non-tender MICAH LAYNE Dec 30, 2017 10:14
[2017-12-30] MEDS ORDERED: D5 1/2NS 1000ml IV ONE (10:40)
--- NOTE | 2017-12-30 11:00 | Pulmonology Progress Note ---
Assessment/Plan Problems: (1) Chronic respiratory failure (2) Gastrojejunostomy tube dislodgement (3) Tracheostomy present (4) History of pacemaker (5) Schizophrenia (6) [facility] resident Respiratory: monitor respiratory rate, CXR Cardiac: start pressors, continue to monitor HR/BP Renal: F/U I&O Infectious Disease: check cultures Gastrointestinal: hold feedings, other - waiting for EGD and PEG placement Hematologic: monitor H/H, transfuse if hgb<8.5 Neurologic: PRN Ativan, PRN Morphine, keep patient comfortable Time Spent (Minutes): 40 Notes Reviewed: city manager, cardio Discussed with: nurses, consultants, case fitter Subjective ROS Limited/Unobtainable: No Constitutional: Reports: no symptoms Respiratory: Reports: no symptoms Allergies: Coded Allergies: CHLORPROMAZINE (Verified Allergy, Unknown, 06/23/17) ERYTHROMYCIN BASE (Verified Allergy, Unknown, 06/23/17) PROCHLORPERAZINE (Unverified Allergy, Unknown, 12/28/17) Uncoded Allergies: TAPE (Allergy, Unknown, 06/23/17) Objective Last 24 Hour Vital Signs Date Time Temp Pulse Resp B/P (MAP) Pulse Ox O2 Delivery O2 Flow Rate FiO2 12/30/17 08:00 97.3 14 92/65 98 Mechanical Ventilator 30 97.3 12/30/17 08:00 30 12/30/17 07:35 60 12/30/17 06:54 60 21 30 12/30/17 05:25 63 13 30 12/30/17 04:00 98.5 16 90/50 100 Mechanical Ventilator 30 98.5 12/30/17 04:00 60 12/30/17 04:00 30 12/30/17 02:44 60 12 30 12/30/17 00:36 60 12 30 12/30/17 00:00 98.6 16 90/58 97 Mechanical Ventilator 30 98.6 12/30/17 00:00 30 12/30/17 00:00 60 12/29/17 22:47 70 16 30 12/29/17 20:39 60 12 30 12/29/17 20:00 30 12/29/17 20:00 60 12/29/17 20:00 98.0 12 95/57 97 Mechanical Ventilator 30 98.0 12/29/17 18:38 62 12 30 12/29/17 17:10 85 25 30 12/29/17 16:00 30 12/29/17 16:00 98.7 12 91/60 95 Mechanical Ventilator 30 98.7 12/29/17 16:00 66 12/29/17 14:35 65 12 30 12/29/17 12:36 61 12 30 12/29/17 12:00 30 12/29/17 12:00 98.4 15 101/48 98 Mechanical Ventilator 30 98.4 12/29/17 12:00 60 12/29/17 11:07 62 15 30 Intake and Output 12/29/17 12/30/17 19:00 07:00 Intake Total 925 ml 1300 ml Output Total 50 ml 650 ml Balance 875 ml 650 ml Intake IV Total 925 ml 1300 ml Output Urine Total 50 ml 650 ml # Voids 1 General Appearance: cachetic HEENT: normocephalic, atraumatic Respiratory/Chest: lungs clear, normal breath sounds Cardiovascular: normal peripheral pulses, normal rate, regular rhythm Abdomen: normal bowel sounds, soft, non tender, no organomegaly Genitourinary: normal external genitalia Extremities: no clubbing Skin: no rash Neurologic/Psychiatric: physical therapy aid II-XII grossly normal Microbiology Date/Time Source Procedure Growth Status 12/28/17 16:05 Nasal Nares MRSA Culture - Final NO METHICILLIN RESISTANT STAPH AUREUS... Complete 12/28/17 16:05 Rectum VRE Culture - Final NO VANCOMYCIN RESISTANT ENTEROCOCCUS ... Complete Laboratory Tests 12/30/17 03:27: White Blood Count 5.4, Red Blood Count 3.19L, Hemoglobin 10.0L, Hematocrit 28.7L , Mean Corpuscular Volume 90, Mean Corpuscular Hemoglobin 31.5H, Mean Corpuscular Hemoglobin Concent 34.9, Red Cell Distribution Width 15.0H, Platelet Count 291, Mean Platelet Volume 6.1L, Neutrophils (%) (Auto) 47.0, Lymphocytes (%) (Auto) 34.8, Monocytes (%) (Auto) 10.0, Eosinophils (%) (Auto) 6.6H, Basophils (%) (Auto) 1.5, Prothrombin Time 11.1, Prothromb Time International Ratio 1.1, Activated Partial Thromboplast Time 29, Sodium Level 136, Potassium Level 3.8, Chloride Level 102, Carbon Dioxide Level 26, Anion Gap 8, Blood Urea Nitrogen 28H, Creatinine 1.4H, Estimat Glomerular Filtration Rate 50.1, Glucose Level 97, Calcium Level 10.0, Phosphorus Level 5.0H, Magnesium Level 2.3, Total Bilirubin 0.5, Aspartate Amino Transf (AST/SGOT) 31, Alanine Aminotransferase (ALT/SGPT) 27, Alkaline Phosphatase 132H, Total Protein 8.4H, Albumin 2.9L, Globulin 5.5, Albumin/Globulin Ratio 0.5L Current Medications Medications (Trade) Dose Ordered Sig/Karen Route PRN Reason Start Time Stop Time Status Last Admin Dose Admin Acetaminophen (Tylenol) 650 mg Q4H PRN ORAL fever 12/28/17 14:30 01/27/18 14:29 Al Hydroxide/Mg Hydroxide (Mylanta II) 30 ml Q6H PRN ORAL dyspepsia 12/28/17 14:30 01/27/18 14:29 Albuterol Sulfate (Proventil) 2.5 mg Q6H PRN IN-LINE Shortness of Breath 12/28/17 14:30 01/02/18 14:29 Carbamazepine (TEGretol) 200 mg EVERY 6 HOURS GT 12/28/17 18:00 01/27/18 17:59 12/29/17 05:38 Dextrose (Dextrose 50%) 25 ml STAT PRN IV Hypoglycemia 12/28/17 14:45 01/27/18 14:44 Dextrose (Dextrose 50%) 50 ml STAT PRN IV Hypoglycemia 12/28/17 14:45 01/27/18 14:44 Dextrose/Sodium Chloride 1,000 ml @ 75 mls/hr [id number] IV 12/28/17 14:24 01/27/18 14:23 12/30/17 07:27 Diphenhydramine HCl (Benadryl) 25 mg Q6H PRN ORAL Itching/Pruritis 12/28/17 14:30 01/27/18 14:29 Heparin Sodium (Porcine) (Heparin 5000 units/ml) 5,000 units EVERY 12 HOURS SUBQ 12/28/17 21:00 01/27/18 20:59 12/29/17 09:48 Insulin Aspart (NovoLOG) EVERY 6 HOURS SUBQ 12/29/17 12:00 01/27/18 16:29 Levetiracetam 100 ml @ 400 mls/hr Q12HR IVPB 12/29/17 09:00 01/28/18 08:59 12/30/17 08:55 Lorazepam (Ativan 2mg/ml 1ml) 1 mg Q4H PRN IV agitation 12/28/17 14:30 01/04/18 14:29 Morphine Sulfate (Morphine Sulfate) 2 mg Q4H PRN IVP severe Pain (Pain Scale 7-10) 12/28/17 14:30 01/04/18 14:29 Nitroglycerin (Ntg) 0.4 mg Q5M X 3 DOSES PRN SL Prn Chest Pain 12/28/17 14:30 01/27/18 14:29 Olanzapine (ZyPREXA) 15 mg QHS GT 12/29/17 21:00 01/27/18 20:59 Ondansetron HCl (Zofran) 4 mg Q6H PRN IVP Nausea & Vomiting 12/28/17 14:30 01/27/18 14:29 Pantoprazole (Protonix) 40 mg DAILY IV 12/29/17 09:00 01/28/18 08:59 12/30/17 09:00 Polyethylene Glycol (Miralax) 17 gm HSPRN PRN ORAL Constipation 12/28/17 14:30 01/27/18 14:29 Temazepam (Restoril) 15 mg HSPRN PRN ORAL Insomnia 12/28/17 14:30 01/04/18 14:29 Naheed Espinoza MD Dec 30, 2017 11:00
[2017-12-30 12:00] VITALS: BP 96/58
--- NOTE | 2017-12-30 13:33 | General Progress Note ---
Assessment/Plan Problem List: (1) Anemia ICD Codes: D64.9 - Anemia, unspecified SNOMED: 845240296 (2) Hypoalbuminemia ICD Codes: E88.09 - Other disorders of plasma-protein metabolism, not elsewhere classified SNOMED: 447336963 (3) Gastrojejunostomy tube dislodgement ICD Codes: Z43.4 - Encounter for attention to other artificial openings of digestive tract SNOMED: 998207910 (4) Respiratory failure ICD Codes: J96.90 - Respiratory failure, unspecified, unspecified whether with hypoxia or hypercapnia SNOMED: 368122979 (5) Tracheostomy present ICD Codes: Z93.0 - Tracheostomy status SNOMED: 588998536 Status: unchanged Assessment/Plan ot pt diet vent pending gtube cbc bmp am Subjective Constitutional: Reports: weakness Allergies: Coded Allergies: CHLORPROMAZINE (Verified Allergy, Unknown, 06/23/17) ERYTHROMYCIN BASE (Verified Allergy, Unknown, 06/23/17) PROCHLORPERAZINE (Unverified Allergy, Unknown, 12/28/17) Uncoded Allergies: TAPE (Allergy, Unknown, 06/23/17) All Systems: reviewed and negative except above Subjective trach vent altered calm Objective Last 24 Hour Vital Signs Date Time Temp Pulse Resp B/P (MAP) Pulse Ox O2 Delivery O2 Flow Rate FiO2 12/30/17 12:00 97.7 20 96/58 98 Mechanical Ventilator 30 97.7 12/30/17 12:00 30 12/30/17 11:44 64 12/30/17 10:56 60 15 30 12/30/17 09:15 59 17 30 12/30/17 08:00 97.3 14 92/65 98 Mechanical Ventilator 30 97.3 12/30/17 08:00 30 12/30/17 07:35 60 12/30/17 06:54 60 21 30 12/30/17 05:25 63 13 30 12/30/17 04:00 98.5 16 90/50 100 Mechanical Ventilator 30 98.5 12/30/17 04:00 60 12/30/17 04:00 30 12/30/17 02:44 60 12 30 12/30/17 00:36 60 12 30 12/30/17 00:00 98.6 16 90/58 97 Mechanical Ventilator 30 98.6 12/30/17 00:00 30 12/30/17 00:00 60 12/29/17 22:47 70 16 30 12/29/17 20:39 60 12 30 12/29/17 20:00 30 12/29/17 20:00 60 12/29/17 20:00 98.0 12 95/57 97 Mechanical Ventilator 30 98.0 12/29/17 18:38 62 12 30 12/29/17 17:10 85 25 30 12/29/17 16:00 30 12/29/17 16:00 98.7 12 91/60 95 Mechanical Ventilator 30 98.7 12/29/17 16:00 66 12/29/17 14:35 65 12 30 Intake and Output 12/29/17 12/30/17 19:00 07:00 Intake Total 925 ml 1300 ml Output Total 50 ml 650 ml Balance 875 ml 650 ml Intake IV Total 925 ml 1300 ml Output Urine Total 50 ml 650 ml # Voids 1 Laboratory Tests 12/30/17 03:27: White Blood Count 5.4, Red Blood Count 3.19L, Hemoglobin 10.0L, Hematocrit 28.7L , Mean Corpuscular Volume 90, Mean Corpuscular Hemoglobin 31.5H, Mean Corpuscular Hemoglobin Concent 34.9, Red Cell Distribution Width 15.0H, Platelet Count 291, Mean Platelet Volume 6.1L, Neutrophils (%) (Auto) 47.0, Lymphocytes (%) (Auto) 34.8, Monocytes (%) (Auto) 10.0, Eosinophils (%) (Auto) 6.6H, Basophils (%) (Auto) 1.5, Prothrombin Time 11.1, Prothromb Time International Ratio 1.1, Activated Partial Thromboplast Time 29, Sodium Level 136, Potassium Level 3.8, Chloride Level 102, Carbon Dioxide Level 26, Anion Gap 8, Blood Urea Nitrogen 28H, Creatinine 1.4H, Estimat Glomerular Filtration Rate 50.1, Glucose Level 97, Calcium Level 10.0, Phosphorus Level 5.0H, Magnesium Level 2.3, Total Bilirubin 0.5, Aspartate Amino Transf (AST/SGOT) 31, Alanine Aminotransferase (ALT/SGPT) 27, Alkaline Phosphatase 132H, Total Protein 8.4H, Albumin 2.9L, Globulin 5.5, Albumin/Globulin Ratio 0.5L Height (Feet): 6 Height (Inches): 6.00 Weight (Pounds): 174 General Appearance: lethargic EENT: normal ENT inspection Neck: normal alignment Cardiovascular: normal peripheral pulses, normal rate, regular rhythm Respiratory/Chest: chest wall non-tender, lungs clear, normal breath sounds Abdomen: normal bowel sounds, non tender, soft Extremities: normal inspection Edema: no edema noted Arm (L), no edema noted Arm (R), no edema noted Leg (L), no edema noted Leg (R), no edema noted Pedal (L), no edema noted Pedal (R), no edema noted Generalized Neurologic: motor weakness Skin: normal pigmentation, warm/dry QUINTON HUMPHRIES Dec 30, 2017 13:33
--- NOTE | 2017-12-30 14:39 | Wound Care Consultation ---
Wound Assessment Wound Assessment : Wound Number: 1 Wound Present on Admission: Yes New Wound: No Status Change of Wound: No Wound Location Body Site Modif: right, anterior Wound Location Body Site: other - Right anterior 1st and 2nd toe with dry scabs Wound Type: scab Irma Test: Does not Irma Wound Thickness: Full Thickness Wound Drainage Amount: None Wound Drainage Odor: None/Absent Tissue Surrounding Wound: Intact Wound General Appearance: Asymptomatic Wound Comment #1 Right anterior 1st and 2nd toe with dry scabs Recommendation -Local wound care per protocol -Offload heel -Heel protector -Low air loss mattress -Turn and reposition -Keep clean and dry -Optimize nutrition -Assess and f/u accordingly for any changes JOSE LEWIS RN Dec 30, 2017 14:39
--- NOTE | 2017-12-30 15:44 | GI Progress Note ---
Assessment/Plan Problems: (1) Gastrojejunostomy tube dislodgement ICD Codes: Z43.4 - Encounter for attention to other artificial openings of digestive tract SNOMED: 670873204 (2) Dehydration ICD Codes: E86.0 - Dehydration SNOMED: 35831864 (3) Weak ICD Codes: R53.1 - Weakness SNOMED: 60731453 (4) Anemia ICD Codes: D64.9 - Anemia, unspecified SNOMED: 798657884 (5) Hypoalbuminemia ICD Codes: E88.09 - Other disorders of plasma-protein metabolism, not elsewhere classified SNOMED: 654656877 Status: unchanged Status Narrative Discussed with Dr. Dominguez. Assessment/Plan PEG not done today, unable to contain consent >> rescheduled for tomorrow. - resume all orders, NPO @ [facility]. Subjective Subjective limited Objective Last 24 Hour Vital Signs Date Time Temp Pulse Resp B/P (MAP) Pulse Ox O2 Delivery O2 Flow Rate FiO2 12/30/17 14:50 60 15 30 12/30/17 13:27 61 12 30 12/30/17 12:00 97.7 20 96/58 98 Mechanical Ventilator 30 97.7 12/30/17 12:00 30 12/30/17 11:44 64 12/30/17 10:56 60 15 30 12/30/17 09:15 59 17 30 12/30/17 08:00 97.3 14 92/65 98 Mechanical Ventilator 30 97.3 12/30/17 08:00 30 12/30/17 07:35 60 12/30/17 06:54 60 21 30 12/30/17 05:25 63 13 30 12/30/17 04:00 98.5 16 90/50 100 Mechanical Ventilator 30 98.5 12/30/17 04:00 60 12/30/17 04:00 30 12/30/17 02:44 60 12 30 12/30/17 00:36 60 12 30 12/30/17 00:00 98.6 16 90/58 97 Mechanical Ventilator 30 98.6 12/30/17 00:00 30 12/30/17 00:00 60 12/29/17 22:47 70 16 30 12/29/17 20:39 60 12 30 12/29/17 20:00 30 12/29/17 20:00 60 12/29/17 20:00 98.0 12 95/57 97 Mechanical Ventilator 30 98.0 12/29/17 18:38 62 12 30 12/29/17 17:10 85 25 30 12/29/17 16:00 30 12/29/17 16:00 98.7 12 91/60 95 Mechanical Ventilator 30 98.7 12/29/17 16:00 66 Intake and Output 12/29/17 12/30/17 19:00 07:00 Intake Total 925 ml 1300 ml Output Total 50 ml 650 ml Balance 875 ml 650 ml Intake IV Total 925 ml 1300 ml Output Urine Total 50 ml 650 ml # Voids 1 Laboratory Tests Test 12/30/17 03:27 White Blood Count 5.4 K/UL (4.8-10.8) Red Blood Count 3.19 M/UL (4.70-6.10) L Hemoglobin 10.0 G/DL (14.2-18.0) L Hematocrit 28.7 % (42.0-52.0) L Mean Corpuscular Volume 90 FL (80-99) Mean Corpuscular Hemoglobin 31.5 PG (27.0-31.0) H Mean Corpuscular Hemoglobin Concent 34.9 G/DL (32.0-36.0) Red Cell Distribution Width 15.0 % (11.6-14.8) H Platelet Count 291 K/UL (150-450) Mean Platelet Volume 6.1 FL (6.5-10.1) L Neutrophils (%) (Auto) 47.0 % (45.0-75.0) Lymphocytes (%) (Auto) 34.8 % (20.0-45.0) Monocytes (%) (Auto) 10.0 % (1.0-10.0) Eosinophils (%) (Auto) 6.6 % (0.0-3.0) H Basophils (%) (Auto) 1.5 % (0.0-2.0) Prothrombin Time 11.1 SEC (9.30-11.50) Prothromb Time International Ratio 1.1 (0.9-1.1) Activated Partial Thromboplast Time 29 SEC (23-33) Sodium Level 136 MMOL/L (136-145) Potassium Level 3.8 MMOL/L (3.5-5.1) Chloride Level 102 MMOL/L (98-107) Carbon Dioxide Level 26 MMOL/L (21-32) Anion Gap 8 mmol/L (5-15) Blood Urea Nitrogen 28 mg/dL (7-18) H Creatinine 1.4 MG/DL (0.55-1.30) H Estimat Glomerular Filtration Rate 50.1 mL/min (>60) Glucose Level 97 MG/DL (74-106) Calcium Level 10.0 MG/DL (8.5-10.1) Phosphorus Level 5.0 MG/DL (2.5-4.9) H Magnesium Level 2.3 MG/DL (1.8-2.4) Total Bilirubin 0.5 MG/DL (0.2-1.0) Aspartate Amino Transf (AST/SGOT) 31 U/L (15-37) Alanine Aminotransferase (ALT/SGPT) 27 U/L (12-78) Alkaline Phosphatase 132 U/L (46-116) H Total Protein 8.4 G/DL (6.4-8.2) H Albumin 2.9 G/DL (3.4-5.0) L Globulin 5.5 g/dL Albumin/Globulin Ratio 0.5 (1.0-2.7) L Height (Feet): 6 Height (Inches): 6.00 Weight (Pounds): 174 Raven Thomas N.PEliu Dec 30, 2017 15:44
[2017-12-30 16:00] VITALS: BP 113/74
[2017-12-30 20:49] VITALS: BP 95/45
--- NOTE | 2017-12-30 21:25 | Cardiology Report ---
APPROVED REPORT EKG Measurement Heart [id number] Normal sinus rhythm Low voltage QRS Borderline ECG
[2017-12-31] VITALS: BP 126/65
[2017-12-31 04:00] VITALS: BP 100/60
[2017-12-31] MEDS: NovoLOG Insulin Flexpen SUBQ SCH ×4 (06:00→17:58)
[2017-12-31] MEDS: carBAMazepine 200mg tab GT SCH ×4 (06:00→17:57)
[2017-12-31 06:05] LABS: BASOPHILS % (AUTO) 1.4 % (0.0-2.0); EOSINOPHILS % (AUTO) 5.5 % (0.0-3.0); HEMOGLOBIN 10.4 G/DL (14.2-18.0); INR 1.1 (0.9-1.1); LYMPHOCYTES % (AUTO) 29.9 % (20.0-45.0); MEAN CORPUSCULAR VOLUME 90 FL (80-99); MONOCYTES % (AUTO) 8.9 % (1.0-10.0); NEUTROPHILS % (AUTO) 54.3 % (45.0-75.0); PLATELET COUNT 308 K/UL (150-450); RED BLOOD COUNT 3.23 M/UL (4.70-6.10); RED CELL DISTRIBUTION WIDTH 14.8 % (11.6-14.8); WHITE BLOOD COUNT 5.5 K/UL (4.8-10.8)
[2017-12-31 06:39] LABS: ALANINE AMINOTRANSFERASE 40 U/L (12-78); ALBUMIN/GLOBULIN RATIO 0.6 (1.0-2.7); ALKALINE PHOSPHATASE 138 U/L (46-116); ANION GAP 8 mmol/L (5-15); ASPARTATE AMINO TRANSFERASE 42 U/L (15-37); BILIRUBIN,TOTAL 0.5 MG/DL (0.2-1.0); BLOOD UREA NITROGEN 25 mg/dL (7-18); CALCIUM 9.5 MG/DL (8.5-10.1); CARBON DIOXIDE 25 MMOL/L (21-32); CHLORIDE 104 MMOL/L (98-107); CREATININE 1.4 MG/DL (0.55-1.30); PHOSPHORUS 4.8 MG/DL (2.5-4.9); POTASSIUM 3.7 MMOL/L (3.5-5.1); SODIUM 137 MMOL/L (136-145)
--- NOTE | 2017-12-31 07:15 | Progress Note ---
DATE: 12/31/2017 SUBJECTIVE: This is a 72-year-old patient G-tube replacement. This patient continues to have some auditory hallucinations, paranoid delusions, mood liability, still very agitated, irritable, and disorganized thought process. This disorganized thought process is secondary to the stress of his medical illness, that is why his attending has requested daily psychiatric consultation. MENTAL STATUS EXAMINATION: This is a 72-year-old male. Appearance is disheveled. Attitude, irritable and agitated. Affect, guarded and restricted. Intellect poor. Mood is depressed and anxious. Motor activity, psychomotor agitation. Attention span is poor. Orientation x2. Speech is pressured. Thought process, disorganized and illogical. Thought content, auditory hallucinations, paranoid delusions. Insight and judgment is poor. DIAGNOSIS: Schizoaffective, bipolar type. PLAN: Treat him with Zyprexa 15 mg per G-tube nightly, Tegretol 200 mg per G-tube q.12 hours, and Ativan 1 mg IV q.4 hours p.r.n. for anxiety and agitation. Provided 18 to 20 minutes of supportive therapy. Chart reviewed. Discussed with staff. Devon Castillo M.D. DR: ALLISON JOB#: [id number] CC:
[2017-12-31 08:00] VITALS: BP 90/56
[2017-12-31] MEDS: Heparin 5000 units/ml inj SUBQ SCH ×2 (08:47→21:04)
[2017-12-31] MEDS: levETIRAcetam 500mg/NS100ml 100 ML IVPB SCH (09:26)
[2017-12-31] MEDS: Pantoprazole Inj IV SCH (09:28)
--- NOTE | 2017-12-31 10:42 | Anethesia Preoperative Eval ---
Anesthesia Pre-op PMH/ROS General Date of Evaluation: Dec 31, 2017 Time of Evaluation: 10:34 Anesthesiologist: Josh ASA Score: ASA 4 Mallampati Score Class I : Soft palate, uvula, fauces, pillars visible Class II: Soft palate, uvula, fauces visible Class III: Soft palate, base of uvula visible Class IV: Only hard plate visible Mallampati Classification: Class III - tracheostomy in place Surgeon: Alberto Diagnosis: Dysphagia Surgical Procedure: EGD PEG tube placement Anesthesia History: none Family History: no anesthesia problems Allergies: Coded Allergies: CHLORPROMAZINE (Verified Allergy, Unknown, 06/23/17) ERYTHROMYCIN BASE (Verified Allergy, Unknown, 06/23/17) PROCHLORPERAZINE (Unverified Allergy, Unknown, 12/28/17) Uncoded Allergies: TAPE (Allergy, Unknown, 06/23/17) Medications: see eMAR Past Medical History Cardiovascular: Reports: HTN; Denies: CAD, [place], valve dz, arrhythmia, other Pulmonary: Reports: other - respiratory failure, vent dependent; Denies: asthma, COPD, LISSA Gastrointestinal/Genitourinary: Reports: GERD, CRI, other - h/o GI bleed, recurrent G tube placement; Denies: ESRD Neurologic/Psychiatric: Reports: dementia, CVA, other - long h/o psychiatric problems; Denies: depression/anxiety, TIA Endocrine: Denies: DM, hypothyroidism, steroids, other HEENT: Denies: cataract (L), cataract (R), glaucoma, [place] (L), [place] (R), other Hematology/Immune: Reports: anemia - mild; Denies: DVT, bleeding disorder, other Musculoskeletal/Integumentary: Reports: DJD, other - severe muscle contructions bed ridden; Denies: OA, RA, DDD, edema Other: other - malnourished PMH Narrative: as above admitted for dislodged feeding tube PSxH Narrative: see H&P Anesthesia Pre-op Phys. Exam Physician Exam Last Vital Signs Date Time Temp Pulse Resp B/P (MAP) Pulse Ox O2 Delivery O2 Flow Rate FiO2 12/31/17 09:05 62 12 30 12/31/17 08:00 97.3 90/56 98 Mechanical Ventilator 97.3 Constitutional: NAD Neurologic: other - unable to obtaine Cardiovascular: no M/R/G Respiratory: CTA Gastrointestinal: S/NT/ND Airway Exam Mallampati Score: Class III MO: limited Neck: stiff tracheostomy in place ROM: limited Teeth: missing Dentures: no upper, no lower Anesthesia Pre-op A/P Labs Hematology Test 12/31/17 05:45 White Blood Count 5.5 K/UL (4.8-10.8) Red Blood Count 3.23 M/UL (4.70-6.10) L Hemoglobin 10.4 G/DL (14.2-18.0) L Hematocrit 29.0 % (42.0-52.0) L Mean Corpuscular Volume 90 FL (80-99) Mean Corpuscular Hemoglobin 32.0 PG (27.0-31.0) H Mean Corpuscular Hemoglobin Concent 35.7 G/DL (32.0-36.0) Red Cell Distribution Width 14.8 % (11.6-14.8) Platelet Count 308 K/UL (150-450) Mean Platelet Volume 5.9 FL (6.5-10.1) L Neutrophils (%) (Auto) 54.3 % (45.0-75.0) Lymphocytes (%) (Auto) 29.9 % (20.0-45.0) Monocytes (%) (Auto) 8.9 % (1.0-10.0) Eosinophils (%) (Auto) 5.5 % (0.0-3.0) H Basophils (%) (Auto) 1.4 % (0.0-2.0) Coagulation Test 12/31/17 05:45 Prothrombin Time 11.4 SEC (9.30-11.50) Prothromb Time International Ratio 1.1 (0.9-1.1) Activated Partial Thromboplast Time 30 SEC (23-33) Chemistry Test 12/31/17 05:45 Sodium Level 137 MMOL/L (136-145) Potassium Level 3.7 MMOL/L (3.5-5.1) Chloride Level 104 MMOL/L (98-107) Carbon Dioxide Level 25 MMOL/L (21-32) Anion Gap 8 mmol/L (5-15) Blood Urea Nitrogen 25 mg/dL (7-18) H Creatinine 1.4 MG/DL (0.55-1.30) H Estimat Glomerular Filtration Rate 50.1 mL/min (>60) Glucose Level 113 MG/DL (74-106) H Calcium Level 9.5 MG/DL (8.5-10.1) Phosphorus Level 4.8 MG/DL (2.5-4.9) Magnesium Level 2.2 MG/DL (1.8-2.4) Total Bilirubin 0.5 MG/DL (0.2-1.0) Aspartate Amino Transf (AST/SGOT) 42 U/L (15-37) H Alanine Aminotransferase (ALT/SGPT) 40 U/L (12-78) Alkaline Phosphatase 138 U/L (46-116) H Total Protein 8.3 G/DL (6.4-8.2) H Albumin 3.0 G/DL (3.4-5.0) L Globulin 5.3 g/dL Albumin/Globulin Ratio 0.6 (1.0-2.7) L Risk Assessment & Plan Assessment: ASA 4 Plan: MAC Status Change Before Surgery: No Pre-Antibiotics Drug: as scheduled JOSÉ MIGUEL NUGENT M.D. Dec 31, 2017 10:42
--- NOTE | 2017-12-31 11:50 | Pulmonology Progress Note ---
Assessment/Plan Problems: (1) Chronic respiratory failure (2) Gastrojejunostomy tube dislodgement (3) Tracheostomy present (4) History of pacemaker (5) Schizophrenia (6) [facility] resident Respiratory: monitor respiratory rate, adjust FIO2 Cardiac: continue to monitor HR/BP Renal: F/U I&O, keep IV fluid, check electrolytes Infectious Disease: check cultures - off abx right now Gastrointestinal: hold feedings, other - needs Gtube placement Endocrine: monitor blood sugar Hematologic: transfuse if hgb<8.5 Neurologic: PRN Ativan, PRN Morphine, keep patient comfortable Affect: PRN ativan Time Spent (Minutes): 40 Notes Reviewed: 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 with: nurses, consultants, case aide Subjective ROS Limited/Unobtainable: No Constitutional: Reports: no symptoms HEENT: Repors: no symptoms Respiratory: Reports: no symptoms Allergies: Coded Allergies: CHLORPROMAZINE (Verified Allergy, Unknown, 06/23/17) ERYTHROMYCIN BASE (Verified Allergy, Unknown, 06/23/17) PROCHLORPERAZINE (Unverified Allergy, Unknown, 12/28/17) Uncoded Allergies: TAPE (Allergy, Unknown, 06/23/17) Objective Last 24 Hour Vital Signs Date Time Temp Pulse Resp B/P (MAP) Pulse Ox O2 Delivery O2 Flow Rate FiO2 12/31/17 10:55 60 12 30 12/31/17 09:05 62 12 30 12/31/17 08:00 97.3 72 18 90/56 98 Mechanical Ventilator 30 97.3 12/31/17 08:00 30 12/31/17 07:26 60 12/31/17 06:58 60 12 30 12/31/17 05:52 61 12 30 12/31/17 04:00 60 12/31/17 04:00 30 12/31/17 04:00 98.3 61 20 100/60 99 Mechanical Ventilator 30 98.3 12/31/17 03:20 64 12 30 12/31/17 00:49 60 12 30 12/31/17 00:00 60 12/31/17 00:00 30 12/31/17 00:00 98.1 60 20 126/65 98 Mechanical Ventilator 30 98.1 12/30/17 22:47 60 14 30 12/30/17 20:49 98.0 61 17 95/45 98 98.0 12/30/17 20:46 60 12 30 12/30/17 20:00 30 12/30/17 20:00 60 12/30/17 18:54 64 17 30 12/30/17 16:46 60 12 30 12/30/17 16:00 30 12/30/17 16:00 97.7 18 113/74 95 Mechanical Ventilator 30 97.7 12/30/17 15:33 60 12/30/17 14:50 60 15 30 12/30/17 13:27 61 12 30 12/30/17 12:00 97.7 20 96/58 98 Mechanical Ventilator 30 97.7 12/30/17 12:00 30 Intake and Output 12/30/17 12/31/17 19:00 07:00 Intake Total 878.75 ml 925 ml Output Total 1000 ml 800 ml Balance -121.25 ml 125 ml Intake IV Total 878.75 ml 925 ml Output Urine Total 1000 ml 800 ml # Voids 1 General Appearance: WD/WN HEENT: normocephalic, atraumatic Respiratory/Chest: chest wall non-tender, lungs clear, no respiratory distress Cardiovascular: normal peripheral pulses Abdomen: normal bowel sounds, soft, non tender, no organomegaly Genitourinary: normal external genitalia Skin: no rash Neurologic/Psychiatric: buggyman II-XII grossly normal, no motor/sensory deficits Lymphatic: no neck adenopathy Musculoskeletal: normal muscle bulk Microbiology Date/Time Source Procedure Growth Status 12/28/17 16:05 Nasal Nares MRSA Culture - Final NO METHICILLIN RESISTANT STAPH AUREUS... Complete 12/28/17 16:05 Rectum VRE Culture - Final NO VANCOMYCIN RESISTANT ENTEROCOCCUS ... Complete Laboratory Tests 12/31/17 05:45: White Blood Count 5.5, Red Blood Count 3.23L, Hemoglobin 10.4L, Hematocrit 29.0L , Mean Corpuscular Volume 90, Mean Corpuscular Hemoglobin 32.0H, Mean Corpuscular Hemoglobin Concent 35.7, Red Cell Distribution Width 14.8, Platelet Count 308, Mean Platelet Volume 5.9L, Neutrophils (%) (Auto) 54.3, Lymphocytes ( %) (Auto) 29.9, Monocytes (%) (Auto) 8.9, Eosinophils (%) (Auto) 5.5H, Basophils (%) (Auto) 1.4, Prothrombin Time 11.4, Prothromb Time International Ratio 1.1, Activated Partial Thromboplast Time 30, Sodium Level 137, Potassium Level 3.7, Chloride Level 104, Carbon Dioxide Level 25, Anion Gap 8, Blood Urea Nitrogen 25H, Creatinine 1.4H, Estimat Glomerular Filtration Rate 50.1, Glucose Level 113H, Calcium Level 9.5, Phosphorus Level 4.8, Magnesium Level 2.2, Total Bilirubin 0.5, Aspartate Amino Transf (AST/SGOT) 42H, Alanine Aminotransferase ( ALT/SGPT) 40, Alkaline Phosphatase 138H, Total Protein 8.3H, Albumin 3.0L, Globulin 5.3, Albumin/Globulin Ratio 0.6L Current Medications Medications (Trade) Dose Ordered Sig/Karen Route PRN Reason Start Time Stop Time Status Last Admin Dose Admin Acetaminophen (Tylenol) 650 mg Q4H PRN ORAL fever 12/28/17 14:30 01/27/18 14:29 Al Hydroxide/Mg Hydroxide (Mylanta II) 30 ml Q6H PRN ORAL dyspepsia 12/28/17 14:30 01/27/18 14:29 Albuterol Sulfate (Proventil) 2.5 mg Q6H PRN IN-LINE Shortness of Breath 12/28/17 14:30 01/02/18 14:29 Carbamazepine (TEGretol) 200 mg EVERY 6 HOURS GT 12/28/17 18:00 01/27/18 17:59 12/29/17 05:38 Dextrose (Dextrose 50%) 25 ml STAT PRN IV Hypoglycemia 12/28/17 14:45 01/27/18 14:44 Dextrose (Dextrose 50%) 50 ml STAT PRN IV Hypoglycemia 12/28/17 14:45 01/27/18 14:44 Dextrose/Sodium Chloride 1,000 ml @ 75 mls/hr [id number] IV 12/28/17 14:24 01/27/18 14:23 12/30/17 22:42 Diphenhydramine HCl (Benadryl) 25 mg Q6H PRN ORAL Itching/Pruritis 12/28/17 14:30 01/27/18 14:29 Heparin Sodium (Porcine) (Heparin 5000 units/ml) 5,000 units EVERY 12 HOURS SUBQ 12/28/17 21:00 5/14/18 20:59 12/29/17 09:48 Insulin Aspart (NovoLOG) EVERY 6 HOURS SUBQ 12/29/17 12:00 01/27/18 16:29 Levetiracetam 100 ml @ 400 mls/hr Q12HR IVPB 12/29/17 09:00 01/28/18 08:59 12/31/17 09:26 Lorazepam (Ativan 2mg/ml 1ml) 1 mg Q4H PRN IV agitation 12/28/17 14:30 01/04/18 14:29 Morphine Sulfate (Morphine Sulfate) 2 mg Q4H PRN IVP severe Pain (Pain Scale 7-10) 12/28/17 14:30 01/04/18 14:29 Nitroglycerin (Ntg) 0.4 mg Q5M X 3 DOSES PRN SL Prn Chest Pain 12/28/17 14:30 01/27/18 14:29 Olanzapine (ZyPREXA) 15 mg QHS GT 12/29/17 21:00 01/27/18 20:59 Ondansetron HCl (Zofran) 4 mg Q6H PRN IVP Nausea & Vomiting 12/28/17 14:30 01/27/18 14:29 Pantoprazole (Protonix) 40 mg DAILY IV 12/29/17 09:00 01/28/18 08:59 12/31/17 09:28 Polyethylene Glycol (Miralax) 17 gm HSPRN PRN ORAL Constipation 12/28/17 14:30 01/27/18 14:29 Temazepam (Restoril) 15 mg HSPRN PRN ORAL Insomnia 12/28/17 14:30 01/04/18 14:29 Naheed Espinoza MD Dec 31, 2017 11:49
[2017-12-31] MEDS ORDERED: NS 500ML IV ONE (12:00)
--- NOTE | 2017-12-31 12:23 | Endoscopy Procedure Note ---
Endoscopy Procedure Note General Indication for Procedure: dysphagia Procedures Performed: EGD, PEG Operative Findings/Diagnosis: same Specimen: none Pt Tolerated Procedure Well: Yes Estimated Blood Loss: none Anesthesia Anesthesiologist: issac Anesthesia: MAC Inserted Devices Implant(s) used?: No GI Core Measures 50 yrs or older w/o bx or poly: Not Applicable 10yrs. F/U not recommended: Not Applicable MICAH LAYNE Dec 31, 2017 12:23
--- NOTE | 2017-12-31 12:24 | Pre-Procedure Note/Attestation ---
Pre-Procedure Note/Attestation Complete Prior to Procedure Planned Procedure: not applicable Procedure Narrative: egd/peg Indications for Procedure Pre-Operative Diagnosis: dysphagia Attestation I attest that I discussed the nature of the procedure; its benefits; risks and complications; and alternatives (and the risks and benefits of such alternatives ), prior to the procedure, with the patient (or the patient's legal passenger representative). I attest that, if there was a reasonable possibility of needing a blood transfusion, the patient (or the patient's legal passenger representative) was given the [facility] standardized written summary, pursuant to the Patrice Faucett Blood Safety Act ([place] Health and Safety Code # 1645, as amended). I attest that I re-evaluated the patient just prior to the surgery and that there has been no change in the patient's H&P, except as documented below: MICAH LAYNE Dec 31, 2017 12:24
--- NOTE | 2017-12-31 12:25 | Immediate Post-Op Evaluation ---
Immediate Post-Op Evalulation Immediate Post-Op Evalulation Procedure: EGD PEG tube placement Date of Evaluation: Dec 31, 2017 Time of Evaluation: 12:23 IV Fluids: 150 Blood Products: none Estimated Blood Loss: miin Urinary Output: none Blood Pressure Systolic: 104 Blood Pressure Diastolic: 62 Pulse Rate: 61 Respiratory Rate: 12 O2 Sat by Pulse Oximetry: 98 Temperature (Fahrenheit): 97.6 Pain Score (1-10): 1 Nausea: No Vomiting: No Complications none Patient Status: awake, ventilated, none Hydration Status: adequate Drug: Ancef 1gr. Given Within 1 Hr of Incision: Yes Time Given: 12:04 JOSÉ MIGUEL NUGENT M.D. Dec 31, 2017 12:25
--- NOTE | 2017-12-31 14:17 | General Progress Note ---
Assessment/Plan Problem List: (1) Anemia ICD Codes: D64.9 - Anemia, unspecified SNOMED: 889499939 (2) Hypoalbuminemia ICD Codes: E88.09 - Other disorders of plasma-protein metabolism, not elsewhere classified SNOMED: 015187602 (3) Gastrojejunostomy tube dislodgement ICD Codes: Z43.4 - Encounter for attention to other artificial openings of digestive tract SNOMED: 915091738 (4) Respiratory failure ICD Codes: J96.90 - Respiratory failure, unspecified, unspecified whether with hypoxia or hypercapnia SNOMED: 614474778 (5) Tracheostomy present ICD Codes: Z93.0 - Tracheostomy status SNOMED: 853034171 Status: stable, progressing, tolerating diet Assessment/Plan ot pt diet vent adv gtube feed cbc bmp am neph eval Subjective Constitutional: Reports: weakness Allergies: Coded Allergies: CHLORPROMAZINE (Verified Allergy, Unknown, 06/23/17) ERYTHROMYCIN BASE (Verified Allergy, Unknown, 06/23/17) PROCHLORPERAZINE (Unverified Allergy, Unknown, 12/28/17) Uncoded Allergies: TAPE (Allergy, Unknown, 06/23/17) All Systems: reviewed and negative except above Subjective trach vent altered calm Objective Last 24 Hour Vital Signs Date Time Temp Pulse Resp B/P (MAP) Pulse Ox O2 Delivery O2 Flow Rate FiO2 12/31/17 12:46 69 18 30 12/31/17 12:25 207.7 61 12 98 12/31/17 12:00 30 12/31/17 11:48 60 12/31/17 10:55 60 12 30 12/31/17 09:05 62 12 30 12/31/17 08:00 97.3 72 18 90/56 98 Mechanical Ventilator 30 97.3 12/31/17 08:00 30 12/31/17 07:26 60 12/31/17 06:58 60 12 30 12/31/17 05:52 61 12 30 12/31/17 04:00 60 12/31/17 04:00 30 12/31/17 04:00 98.3 61 20 100/60 99 Mechanical Ventilator 30 98.3 12/31/17 03:20 64 12 30 12/31/17 00:49 60 12 30 12/31/17 00:00 60 12/31/17 00:00 30 12/31/17 00:00 98.1 60 20 126/65 98 Mechanical Ventilator 30 98.1 12/30/17 22:47 60 14 30 12/30/17 20:49 98.0 61 17 95/45 98 98.0 12/30/17 20:46 60 12 30 12/30/17 20:00 30 12/30/17 20:00 60 12/30/17 18:54 64 17 30 12/30/17 16:46 60 12 30 12/30/17 16:00 30 12/30/17 16:00 97.7 18 113/74 95 Mechanical Ventilator 30 97.7 12/30/17 15:33 60 12/30/17 14:50 60 15 30 Intake and Output 12/30/17 12/31/17 19:00 07:00 Intake Total 878.75 ml 925 ml Output Total 1000 ml 800 ml Balance -121.25 ml 125 ml Intake IV Total 878.75 ml 925 ml Output Urine Total 1000 ml 800 ml # Voids 1 Laboratory Tests 12/31/17 05:45: White Blood Count 5.5, Red Blood Count 3.23L, Hemoglobin 10.4L, Hematocrit 29.0L , Mean Corpuscular Volume 90, Mean Corpuscular Hemoglobin 32.0H, Mean Corpuscular Hemoglobin Concent 35.7, Red Cell Distribution Width 14.8, Platelet Count 308, Mean Platelet Volume 5.9L, Neutrophils (%) (Auto) 54.3, Lymphocytes ( %) (Auto) 29.9, Monocytes (%) (Auto) 8.9, Eosinophils (%) (Auto) 5.5H, Basophils (%) (Auto) 1.4, Prothrombin Time 11.4, Prothromb Time International Ratio 1.1, Activated Partial Thromboplast Time 30, Sodium Level 137, Potassium Level 3.7, Chloride Level 104, Carbon Dioxide Level 25, Anion Gap 8, Blood Urea Nitrogen 25H, Creatinine 1.4H, Estimat Glomerular Filtration Rate 50.1, Glucose Level 113H, Calcium Level 9.5, Phosphorus Level 4.8, Magnesium Level 2.2, Total Bilirubin 0.5, Aspartate Amino Transf (AST/SGOT) 42H, Alanine Aminotransferase ( ALT/SGPT) 40, Alkaline Phosphatase 138H, Total Protein 8.3H, Albumin 3.0L, Globulin 5.3, Albumin/Globulin Ratio 0.6L Height (Feet): 6 Height (Inches): 6.00 Weight (Pounds): 174 General Appearance: lethargic EENT: normal ENT inspection Neck: normal alignment Cardiovascular: normal peripheral pulses, normal rate, regular rhythm Respiratory/Chest: chest wall non-tender, lungs clear, normal breath sounds Abdomen: normal bowel sounds, non tender, soft Extremities: normal inspection Edema: no edema noted Arm (L), no edema noted Arm (R), no edema noted Leg (L), no edema noted Leg (R), no edema noted Pedal (L), no edema noted Pedal (R), no edema noted Generalized Neurologic: motor weakness Skin: normal pigmentation, warm/dry QUINTON HUMPHRIES Dec 31, 2017 14:17
[2017-12-31] MEDS: D5 1/2NS 1,000 ML IV SCH (15:47)
[2017-12-31 16:00] VITALS: BP 139/59
--- NOTE | 2017-12-31 18:30 | Procedure Note ---
DATE OF PROCEDURE: 12/31/2017 SURGEON: Tano Dominguez M.D. PROCEDURE: Upper endoscopy with PEG placement. ANESTHESIA: Per Dr. Moreno. INSTRUMENT: Olympus adult flexible endoscope. INDICATION: Dysphagia. REASON FOR PROCEDURE: The procedure, risks, benefits, and possible consequences, including hemorrhage, aspiration, perforation and infection, and alternative treatments, were explained to the patient/legal guardian by Dr. Tano Dominguez and the patient/legal guardian understood and accepted these risks. PROCEDURE: After informed consent was obtained and the patient was adequately sedated, Olympus upper endoscope was advanced from mouth to the second portion of the duodenum and retroflexion was performed of the stomach. The patient had old G-tube site of still little bit leaking air. So we took a change to put the wire through the same hole, grabbed the wire with a snare and over the guidewire we put a 20-Spanish pull type of G-tube successfully in the epigastric area. The patient tolerated the procedure well without any complications. SUMMARY FINDINGS: Status post successful G-tube placement. RECOMMENDATIONS: Abdominal binder. Elevate the head of bed at all times. G-tube flush and G-tube care. Start tube feeding later today. I want to thank, Dr. Den Moreau, for this kind referral. Tano Dominguez M.D. DR: ERICA JOB#: [id number] CC: Den Moreau D.O.
[2017-12-31 20:00] VITALS: BP 92/54
--- NOTE | 2017-12-31 20:00 | Consultation ---
DATE OF CONSULTATION: 12/29/2017 PSYCHOTHERAPY CONSULTATION PROGRESS NOTE CONSULTING PHYSICIAN: Hoa Lama PsyD. TREATING ATTENDING: Den Moreau D.O. HISTORY OF PRESENT ILLNESS: The patient is a 72-year-old male patient who is residing in convalescent home. The patient was brought into the hospital for G-tube replacement. The patient has been very helpless, unable to participate in most of his treatment. He has had a decline in functioning, confusion, disorganization and the patient has also been agitated and his mood is dysphoric, and for these reasons, he was referred for psychotherapeutic services. This clinician assessed this patient. The patient is confused, disorganized, helpless, and altered in his mental status. He has no logical or viable plan for self-care or safety. There is no indication of auditory or visual hallucinations. There is no indication of suicidal or homicidal thoughts of ideation for this patient. PAST MEDICAL HISTORY: Includes a history of UTI, status post pacemaker, respiratory failure, status post dehydration. ALLERGIES: The patient is allergic to erythromycin and chlorpromazine and tape. SOCIAL HISTORY: The patient is a 72-year-old male patient alf. The patient is financially supported through [employer]. PSYCHIATRIC HISTORY: The patient has a history of schizoaffective disorder, bipolar type and has been treated with psychotropic medications in the past. MENTAL STATUS EXAMINATION: The patient is alert and oriented to person. Mood is dysphoric. Affect blunted. Thought process is disorganized. Thought content, confused. Poor attention and concentration. Poor insight, judgment, and impulse control. DIAGNOSIS: Schizoaffective disorder, bipolar type. PLAN: This clinician assessed the patient and assessed the patient's mental status. Provide the patient with redirection and reality orientation. Encouraging the patient to participate in treatment milieu. Continue with behavioral management. This clinician has reviewed the patient's chart and discussed the treatment with treatment team. Hoa Lama PsyD. DR: SERGIO JOB#: [id number] CC:
[2017-12-31] MEDS: levETIRAcetam 500mg/5ml Liquid GT SCH (21:03)
[2018-01-01] VITALS: BP 80/44
[2018-01-01] MEDS: carBAMazepine 200mg tab GT SCH ×4 (00:01→18:04)
[2018-01-01 04:00] VITALS: BP 93/57
[2018-01-01] MEDS: NovoLOG Insulin Flexpen SUBQ SCH ×4 (06:00→18:04)
[2018-01-01] MEDS: D5 1/2NS 1,000 ML IV SCH (06:34)
[2018-01-01 07:12] LABS: ALANINE AMINOTRANSFERASE 44 U/L (12-78); ALBUMIN 2.9 G/DL (3.4-5.0); ALBUMIN/GLOBULIN RATIO 0.5 (1.0-2.7); ALKALINE PHOSPHATASE 140 U/L (46-116); ANION GAP 8 mmol/L (5-15); ASPARTATE AMINO TRANSFERASE 45 U/L (15-37); BILIRUBIN,TOTAL 0.3 MG/DL (0.2-1.0); BLOOD UREA NITROGEN 30 mg/dL (7-18); CALCIUM 9.6 MG/DL (8.5-10.1); CARBON DIOXIDE 26 MMOL/L (21-32); CHLORIDE 103 MMOL/L (98-107); CREATININE 1.3 MG/DL (0.55-1.30); POTASSIUM 3.8 MMOL/L (3.5-5.1); SODIUM 137 MMOL/L (136-145)
[2018-01-01 07:26] LABS: BASOPHILS % (AUTO) 1.3 % (0.0-2.0); HEMATOCRIT 30.1 % (42.0-52.0); HEMOGLOBIN 10.2 G/DL (14.2-18.0); LYMPHOCYTES % (AUTO) 36.4 % (20.0-45.0); MEAN CORPUSCULAR VOLUME 90 FL (80-99); MONOCYTES % (AUTO) 10.2 % (1.0-10.0); NEUTROPHILS % (AUTO) 44.1 % (45.0-75.0); PLATELET COUNT 256 K/UL (150-450); RED BLOOD COUNT 3.36 M/UL (4.70-6.10); RED CELL DISTRIBUTION WIDTH 14.6 % (11.6-14.8); WHITE BLOOD COUNT 4.8 K/UL (4.8-10.8)
[2018-01-01 08:00] VITALS: BP 106/63
--- NOTE | 2018-01-01 08:17 | General Progress Note ---
Progress Note Progress Note pt seen and examined full note dictated RANCHO SYKES Jan 01, 2018 08:16
[2018-01-01] MEDS: levETIRAcetam 500mg/5ml Liquid GT SCH (08:30)
[2018-01-01] MEDS: Pantoprazole Inj IV SCH (08:30)
[2018-01-01] MEDS: Heparin 5000 units/ml inj SUBQ SCH (08:32)
--- NOTE | 2018-01-01 10:08 | Pulmonology Progress Note ---
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 Subjective ROS Limited/Unobtainable: No Constitutional: Reports: no symptoms HEENT: Repors: no symptoms Respiratory: Reports: no symptoms Allergies: Coded Allergies: CHLORPROMAZINE (Verified Allergy, Unknown, 06/23/17) ERYTHROMYCIN BASE (Verified Allergy, Unknown, 06/23/17) PROCHLORPERAZINE (Unverified Allergy, Unknown, 12/28/17) Uncoded Allergies: TAPE (Allergy, Unknown, 06/23/17) Objective Last 24 Hour Vital Signs Date Time Temp Pulse Resp B/P (MAP) Pulse Ox O2 Delivery O2 Flow Rate FiO2 01/01/18 08:00 60 01/01/18 08:00 97.6 69 15 106/63 100 Mechanical Ventilator 30 97.6 01/01/18 08:00 30 01/01/18 07:36 64 14 30 01/01/18 04:29 63 13 30 01/01/18 04:00 30 01/01/18 04:00 98.1 60 16 93/57 99 Mechanical Ventilator 30 98.1 01/01/18 03:47 60 01/01/18 03:15 60 12 30 01/01/18 00:38 60 12 30 01/01/18 00:00 98.1 67 12 80/44 98 Mechanical Ventilator 30 98.1 12/31/17 23:51 67 12/31/17 22:48 60 12 30 12/31/17 20:43 60 12 30 12/31/17 20:00 30 12/31/17 20:00 97.7 60 13 92/54 97 Mechanical Ventilator 30 97.7 12/31/17 19:45 60 12/31/17 19:03 63 12 30 12/31/17 16:40 60 12 30 12/31/17 16:00 30 12/31/17 16:00 97.8 62 20 139/59 97 Mechanical Ventilator 30 97.8 12/31/17 15:18 60 12/31/17 15:12 62 12 30 12/31/17 12:46 69 18 30 12/31/17 12:25 207.7 61 12 98 12/31/17 12:00 30 12/31/17 11:48 60 12/31/17 10:55 60 12 30 Intake and Output 12/31/17 01/01/18 19:00 07:00 Intake Total 965.00 ml 902.5 ml Output Total 300 ml 100 ml Balance 665.00 ml 802.5 ml Intake Oral 0 ml Free Water 150 ml 175 ml IV Total 740.00 ml 332.5 ml Tube Feeding 75 ml 345 ml Other 50 ml Output Urine Total 300 ml 100 ml General Appearance: WD/WN HEENT: normocephalic Respiratory/Chest: chest wall non-tender, lungs clear Cardiovascular: normal peripheral pulses, normal rate, regularly irregular Abdomen: normal bowel sounds, no organomegaly Genitourinary: normal external genitalia Extremities: no clubbing Skin: no lesions Neurologic/Psychiatric: dietitian teaching II-XII grossly normal, no motor/sensory deficits Lymphatic: no neck adenopathy Musculoskeletal: normal muscle bulk Laboratory Tests 01/01/18 05:40: White Blood Count 4.8, Red Blood Count 3.36L, Hemoglobin 10.2L, Hematocrit 30.1L , Mean Corpuscular Volume 90, Mean Corpuscular Hemoglobin 30.3, Mean Corpuscular Hemoglobin Concent 33.7, Red Cell Distribution Width 14.6, Platelet Count 256, Mean Platelet Volume 5.5L, Neutrophils (%) (Auto) 44.1L, Lymphocytes (%) (Auto) 36.4, Monocytes (%) (Auto) 10.2H, Eosinophils (%) (Auto) 8.0H, Basophils (%) (Auto) 1.3, Sodium Level 137, Potassium Level 3.8, Chloride Level 103, Carbon Dioxide Level 26, Anion Gap 8, Blood Urea Nitrogen 30H, Creatinine 1.3, Estimat Glomerular Filtration Rate 54.6, Glucose Level 107H, Calcium Level 9.6, Phosphorus Level 5.0H, Magnesium Level 2.0, Total Bilirubin 0.3, Aspartate Amino Transf (AST/SGOT) 45H, Alanine Aminotransferase (ALT/SGPT) 44, Alkaline Phosphatase 140H, Total Protein 8.3H, Albumin 2.9L, Globulin 5.4, Albumin/ Globulin Ratio 0.5L 01/01/18 09:00: Urine Eosinophils [Pending], Urine Random Creatinine [Pending], Urine Random Microalbumin [Pending], Urine Random Total Protein 15H, Urine Random Sodium 33, Urine Creatinine 32.2, Urine Microalbumin/Creatinine Ratio [Pending] Current Medications Medications (Trade) Dose Ordered Sig/Karen Route PRN Reason Start Time Stop Time Status Last Admin Dose Admin Acetaminophen (Tylenol) 650 mg Q4H PRN ORAL fever 12/28/17 14:30 01/27/18 14:29 Al Hydroxide/Mg Hydroxide (Mylanta II) 30 ml Q6H PRN ORAL dyspepsia 12/28/17 14:30 01/27/18 14:29 Albuterol Sulfate (Proventil) 2.5 mg Q6H PRN IN-LINE Shortness of Breath 12/28/17 14:30 01/02/18 14:29 Carbamazepine (TEGretol) 200 mg EVERY 6 HOURS GT 12/28/17 18:00 01/27/18 17:59 01/01/18 06:34 Dextrose (Dextrose 50%) 25 ml STAT PRN IV Hypoglycemia 12/28/17 14:45 01/27/18 14:44 Dextrose (Dextrose 50%) 50 ml STAT PRN IV Hypoglycemia 12/28/17 14:45 01/27/18 14:44 Dextrose/Sodium Chloride 1,000 ml @ 75 mls/hr [id number] IV 12/28/17 14:24 01/27/18 14:23 01/01/18 06:34 Diphenhydramine HCl (Benadryl) 25 mg Q6H PRN ORAL Itching/Pruritis 12/28/17 14:30 01/27/18 14:29 Heparin Sodium (Porcine) (Heparin 5000 units/ml) 5,000 units EVERY 12 HOURS SUBQ 12/28/17 21:00 01/27/18 20:59 01/01/18 08:32 Insulin Aspart (NovoLOG) EVERY 6 HOURS SUBQ 12/29/17 12:00 01/27/18 16:29 01/01/18 00:00 Levetiracetam (Keppra) 500 mg Q12HR GT 12/31/17 21:00 01/30/18 20:59 01/01/18 08:30 Lorazepam (Ativan 2mg/ml 1ml) 1 mg Q4H PRN IV agitation 12/28/17 14:30 01/04/18 14:29 Morphine Sulfate (Morphine Sulfate) 2 mg Q4H PRN IVP severe Pain (Pain Scale 7-10) 12/28/17 14:30 01/04/18 14:29 Nitroglycerin (Ntg) 0.4 mg Q5M X 3 DOSES PRN SL Prn Chest Pain 12/28/17 14:30 01/27/18 14:29 Olanzapine (ZyPREXA) 15 mg QHS GT 12/29/17 21:00 01/27/18 20:59 12/31/17 21:14 Ondansetron HCl (Zofran) 4 mg Q6H PRN IVP Nausea & Vomiting 12/28/17 14:30 01/27/18 14:29 Pantoprazole (Protonix) 40 mg DAILY IV 12/29/17 09:00 01/28/18 08:59 01/01/18 08:30 Polyethylene Glycol (Miralax) 17 gm HSPRN PRN ORAL Constipation 12/28/17 14:30 01/27/18 14:29 Temazepam (Restoril) 15 mg HSPRN PRN ORAL Insomnia 12/28/17 14:30 01/04/18 14:29 Naheed Espinoza MD Jan 01, 2018 10:08
--- NOTE | 2018-01-01 10:32 | GI Progress Note ---
Assessment/Plan Problems: (1) Gastrojejunostomy tube dislodgement ICD Codes: Z43.4 - Encounter for attention to other artificial openings of digestive tract SNOMED: 928091178 (2) Dehydration ICD Codes: E86.0 - Dehydration SNOMED: 33991146 (3) Weak ICD Codes: R53.1 - Weakness SNOMED: 91321369 (4) Anemia ICD Codes: D64.9 - Anemia, unspecified SNOMED: 318117047 (5) Hypoalbuminemia ICD Codes: E88.09 - Other disorders of plasma-protein metabolism, not elsewhere classified SNOMED: 309699295 Status: stable, progressing Status Narrative Discussed with Dr. Dominguez. Assessment/Plan s/p PEG GTFs per RD to goal rate GT site care daily/prn prn transfusions ppi bowel regime electrolyte correction fu labs The patient was seen and examined at bedside and all new and available data was reviewed in the patients chart. I agree with the above findings, impression and plan. (Patient seen earlier today. Signature stamp does not reflect patient encounter time.). - Diego Dominguez MD Subjective Subjective limited Objective Last 24 Hour Vital Signs Date Time Temp Pulse Resp B/P (MAP) Pulse Ox O2 Delivery O2 Flow Rate FiO2 01/01/18 10:24 92 15 30 01/01/18 08:00 60 01/01/18 08:00 97.6 69 15 106/63 100 Mechanical Ventilator 30 97.6 01/01/18 08:00 30 01/01/18 07:36 64 14 30 01/01/18 04:29 63 13 30 01/01/18 04:00 30 01/01/18 04:00 98.1 60 16 93/57 99 Mechanical Ventilator 30 98.1 01/01/18 03:47 60 01/01/18 03:15 60 12 30 01/01/18 00:38 60 12 30 01/01/18 00:00 98.1 67 12 80/44 98 Mechanical Ventilator 30 98.1 12/31/17 23:51 67 12/31/17 22:48 60 12 30 12/31/17 20:43 60 12 30 12/31/17 20:00 30 12/31/17 20:00 97.7 60 13 92/54 97 Mechanical Ventilator 30 97.7 12/31/17 19:45 60 12/31/17 19:03 63 12 30 12/31/17 16:40 60 12 30 12/31/17 16:00 30 12/31/17 16:00 97.8 62 20 139/59 97 Mechanical Ventilator 30 97.8 12/31/17 15:18 60 12/31/17 15:12 62 12 30 12/31/17 12:46 69 18 30 12/31/17 12:25 207.7 61 12 98 12/31/17 12:00 30 12/31/17 11:48 60 12/31/17 10:55 60 12 30 Intake and Output 12/31/17 01/01/18 19:00 07:00 Intake Total 965.00 ml 902.5 ml Output Total 300 ml 100 ml Balance 665.00 ml 802.5 ml Intake Oral 0 ml Free Water 150 ml 175 ml IV Total 740.00 ml 332.5 ml Tube Feeding 75 ml 345 ml Other 50 ml Output Urine Total 300 ml 100 ml Laboratory Tests Test 01/01/18 05:40 01/01/18 09:00 White Blood Count 4.8 K/UL (4.8-10.8) Red Blood Count 3.36 M/UL (4.70-6.10) L Hemoglobin 10.2 G/DL (14.2-18.0) L Hematocrit 30.1 % (42.0-52.0) L Mean Corpuscular Volume 90 FL (80-99) Mean Corpuscular Hemoglobin 30.3 PG (27.0-31.0) Mean Corpuscular Hemoglobin Concent 33.7 G/DL (32.0-36.0) Red Cell Distribution Width 14.6 % (11.6-14.8) Platelet Count 256 K/UL (150-450) Mean Platelet Volume 5.5 FL (6.5-10.1) L Neutrophils (%) (Auto) 44.1 % (45.0-75.0) L Lymphocytes (%) (Auto) 36.4 % (20.0-45.0) Monocytes (%) (Auto) 10.2 % (1.0-10.0) H Eosinophils (%) (Auto) 8.0 % (0.0-3.0) H Basophils (%) (Auto) 1.3 % (0.0-2.0) Sodium Level 137 MMOL/L (136-145) Potassium Level 3.8 MMOL/L (3.5-5.1) Chloride Level 103 MMOL/L (98-107) Carbon Dioxide Level 26 MMOL/L (21-32) Anion Gap 8 mmol/L (5-15) Blood Urea Nitrogen 30 mg/dL (7-18) H Creatinine 1.3 MG/DL (0.55-1.30) Estimat Glomerular Filtration Rate 54.6 mL/min (>60) Glucose Level 107 MG/DL (74-106) H Calcium Level 9.6 MG/DL (8.5-10.1) Phosphorus Level 5.0 MG/DL (2.5-4.9) H Magnesium Level 2.0 MG/DL (1.8-2.4) Total Bilirubin 0.3 MG/DL (0.2-1.0) Aspartate Amino Transf (AST/SGOT) 45 U/L (15-37) H Alanine Aminotransferase (ALT/SGPT) 44 U/L (12-78) Alkaline Phosphatase 140 U/L (46-116) H Total Protein 8.3 G/DL (6.4-8.2) H Albumin 2.9 G/DL (3.4-5.0) L Globulin 5.4 g/dL Albumin/Globulin Ratio 0.5 (1.0-2.7) L Urine Eosinophils Pending Urine Random Creatinine Pending Urine Random Microalbumin Pending Urine Random Total Protein 15 MG/DL (< 11.9) H Urine Random Sodium 33 mmol/L (20-110) Urine Creatinine 32.2 MG/DL (30.0-125.0) Urine Microalbumin/Creatinine Ratio Pending Height (Feet): 6 Height (Inches): 6.00 Weight (Pounds): 174 General Appearance: no apparent distress, alert Cardiovascular: normal rate Respiratory/Chest: other - [facility] vent Abdominal Exam: GT site - c/d/i Raven Thomas NJose Raul Jan 01, 2018 10:32 MICAH DOMINGUEZ Jan 03, 2018 11:54
[2018-01-01 12:00] VITALS: BP 100/66
[2018-01-01] MEDS ORDERED: fentaNYL 100 mcg/2 mL IV ONE (12:00)
[2018-01-01] MEDS ORDERED: D5 1/2NS 1000ml IV ONE (12:00)
[2018-01-01] MEDS ORDERED: Propofol 200mg/20ml IV ONE (12:00)
--- NOTE | 2018-01-01 15:03 | General Progress Note ---
Assessment/Plan Problem List: (1) Anemia ICD Codes: D64.9 - Anemia, unspecified SNOMED: 339129612 (2) Hypoalbuminemia ICD Codes: E88.09 - Other disorders of plasma-protein metabolism, not elsewhere classified SNOMED: 105145260 (3) Gastrojejunostomy tube dislodgement ICD Codes: Z43.4 - Encounter for attention to other artificial openings of digestive tract SNOMED: 968010520 (4) Respiratory failure ICD Codes: J96.90 - Respiratory failure, unspecified, unspecified whether with hypoxia or hypercapnia SNOMED: 437982801 (5) Tracheostomy present ICD Codes: Z93.0 - Tracheostomy status SNOMED: 113218254 Status: stable, progressing, tolerating diet Assessment/Plan ot pt diet vent adv gtube feed cbc bmp am dc if clear Subjective Constitutional: Reports: weakness Allergies: Coded Allergies: CHLORPROMAZINE (Verified Allergy, Unknown, 06/23/17) ERYTHROMYCIN BASE (Verified Allergy, Unknown, 06/23/17) PROCHLORPERAZINE (Unverified Allergy, Unknown, 12/28/17) Uncoded Allergies: TAPE (Allergy, Unknown, 06/23/17) All Systems: reviewed and negative except above Subjective trach vent altered calm Objective Last 24 Hour Vital Signs Date Time Temp Pulse Resp B/P (MAP) Pulse Ox O2 Delivery O2 Flow Rate FiO2 01/01/18 14:33 82 15 30 01/01/18 12:42 78 14 30 01/01/18 12:00 98.0 76 18 100/66 100 Mechanical Ventilator 30 98.0 01/01/18 12:00 30 01/01/18 12:00 75 01/01/18 10:53 80 19 30 01/01/18 10:24 92 15 30 01/01/18 08:00 60 01/01/18 08:00 97.6 69 15 106/63 100 Mechanical Ventilator 30 97.6 01/01/18 08:00 30 01/01/18 07:36 64 14 30 01/01/18 04:29 63 13 30 01/01/18 04:00 30 01/01/18 04:00 98.1 60 16 93/57 99 Mechanical Ventilator 30 98.1 01/01/18 03:47 60 01/01/18 03:15 60 12 30 01/01/18 00:38 60 12 30 4/18/18 00:00 98.1 67 12 80/44 98 Mechanical Ventilator 30 98.1 12/31/17 23:51 67 12/31/17 22:48 60 12 30 12/31/17 20:43 60 12 30 12/31/17 20:00 30 12/31/17 20:00 97.7 60 13 92/54 97 Mechanical Ventilator 30 97.7 12/31/17 19:45 60 12/31/17 19:03 63 12 30 12/31/17 16:40 60 12 30 12/31/17 16:00 30 12/31/17 16:00 97.8 62 20 139/59 97 Mechanical Ventilator 30 97.8 12/31/17 15:18 60 12/31/17 15:12 62 12 30 Intake and Output 12/31/17 01/01/18 18:59 06:59 Intake Total 940.00 ml 970 ml Output Total 300 ml 100 ml Balance 640.00 ml 870 ml Intake Oral 0 ml Free Water 150 ml 175 ml IV Total 740.00 ml 375 ml Tube Feeding 50 ml 370 ml Other 50 ml Output Urine Total 300 ml 100 ml Laboratory Tests 01/01/18 05:40: White Blood Count 4.8, Red Blood Count 3.36L, Hemoglobin 10.2L, Hematocrit 30.1L , Mean Corpuscular Volume 90, Mean Corpuscular Hemoglobin 30.3, Mean Corpuscular Hemoglobin Concent 33.7, Red Cell Distribution Width 14.6, Platelet Count 256, Mean Platelet Volume 5.5L, Neutrophils (%) (Auto) 44.1L, Lymphocytes (%) (Auto) 36.4, Monocytes (%) (Auto) 10.2H, Eosinophils (%) (Auto) 8.0H, Basophils (%) (Auto) 1.3, Sodium Level 137, Potassium Level 3.8, Chloride Level 103, Carbon Dioxide Level 26, Anion Gap 8, Blood Urea Nitrogen 30H, Creatinine 1.3, Estimat Glomerular Filtration Rate 54.6, Glucose Level 107H, Calcium Level 9.6, Phosphorus Level 5.0H, Magnesium Level 2.0, Total Bilirubin 0.3, Aspartate Amino Transf (AST/SGOT) 45H, Alanine Aminotransferase (ALT/SGPT) 44, Alkaline Phosphatase 140H, Total Protein 8.3H, Albumin 2.9L, Globulin 5.4, Albumin/ Globulin Ratio 0.5L 01/01/18 09:00: Urine Eosinophils None seen, Urine Random Creatinine [Pending], Urine Random Microalbumin [Pending], Urine Random Total Protein 15H, Urine Random Sodium 33, Urine Creatinine 32.2, Urine Microalbumin/Creatinine Ratio [Pending] Height (Feet): 6 Height (Inches): 6.00 Weight (Pounds): 174 General Appearance: lethargic EENT: normal ENT inspection Neck: normal alignment Cardiovascular: normal peripheral pulses, normal rate, regular rhythm Respiratory/Chest: chest wall non-tender, lungs clear, normal breath sounds Abdomen: normal bowel sounds, non tender, soft Extremities: normal inspection Edema: no edema noted Arm (L), no edema noted Arm (R), no edema noted Leg (L), no edema noted Leg (R), no edema noted Pedal (L), no edema noted Pedal (R), no edema noted Generalized Neurologic: sensory deficit Skin: normal pigmentation, warm/dry QUINTON HUMPHRIES Jan 01, 2018 15:03
--- NOTE | 2018-01-01 15:15 | Progress Note ---
DATE: 01/01/2018 SUBJECTIVE: This is a 72-year-old male patient, G-tube replacement, confused, disorganized. Mood labile. He has got no logical plan for his own self-care. Feelings of helplessness, hopelessness, low energy, poor appetite, and lost of interest in activity. That is why, he does require daily psychiatric consultation. He has a lot of agitation, irritability, and mood lability. That is why, his attending has requested daily psychiatric consultation. MENTAL STATUS EXAMINATION: This is a 72-year-old male. Appearance is disheveled. Attitude, irritable and agitated. Affect, guarded and restricted. Intellect poor. Mood is depressed and anxious. Motor activity, psychomotor agitation. Attention span is poor. Orientation x2. Speech is pressured. Thought process, disorganized and illogical. Thought content, auditory hallucinations, paranoid delusions. Insight and judgment is poor. Denies suicidal or homicidal thoughts. DIAGNOSIS: Schizoaffective, bipolar type. PLAN: Treat him with Zyprexa 15 mg per G-tube at bedtime and Tegretol 200 mg per G-tube every 8 hours. Provided with 18 to 20 minutes of supportive therapy. Encouraged him to interact appropriately with staff. Chart reviewed. Discussed with staff. Seen and assessed at his bedside. Devon Castillo M.D. DR: ALLISON JOB#: [id number] CC:
[2018-01-01 16:00] VITALS: BP 103/60
--- NOTE | 2018-01-01 19:45 | Consultation ---
DATE OF CONSULTATION: 01/01/2018 NEPHROLOGY CONSULTATION CONSULTING PHYSICIAN: Mirian Neri M.D. REFERRING PHYSICIAN: Den Moreau D.O. REASON FOR CONSULTATION: Dehydration, elevated BUN and creatinine, and electrolyte abnormality. HISTORY OF PRESENT ILLNESS: The patient is an unfortunate 72-year-old male with past medical history significant for history of trach and PEG placement, who has presented to [facility] for evaluation of malfunctioning G-tube. In the ER, the patient was found to have an acute renal failure. Creatinine went up as high as 1.4. The patient was dehydrated and the ER doctor was not able to replace the G-tube. The patient consequently was admitted in the hospital and found to be hypokalemic and having acute renal failure, I was called for management of renal disease and electrolyte imbalance. PAST MEDICAL HISTORY: 1. History of current respiratory failure. 2. History of trach and PEG placement. 3. History of psychiatric disease. 4. History of diabetes. 5. History of hypertension. PAST SURGICAL HISTORY: As above. ALLERGIES: No known drug allergies. SOCIAL HISTORY: There is no history of tobacco, alcohol, or drug use. FAMILY HISTORY: Noncontributory. REVIEW OF SYSTEMS: Unable to obtain due to the patient's condition and mental status. PHYSICAL EXAMINATION: VITAL SIGNS: The patient has temperature of 98 degrees, blood pressure 100/63, pulse rate of 60, and respiratory rate of 18. HEAD AND NECK: No JVP. No LAD. No thyromegaly. Trach is in place. Extraocular movement intact. Pupils are reactive to light and accommodation. LUNGS: Clear to auscultation and percussion. CARDIAC: Regular rate and rhythm. S1 and S2. No murmur. No rub. ABDOMEN: Soft, nontender, and nondistended. EXTREMITIES: Trace edema. No clubbing. No cyanosis. LABORATORY AND DIAGNOSTIC DATA: The patient had WBC count of 4.8, hemoglobin of 10.2, hematocrit of 30, and platelet count of 265,000. Chemistry revealed sodium of 137, potassium 3.8, bicarb 30, creatinine of 1.3, glucose of 107, calcium of 9.4, and phosphorus of 5. AST and ALT are within normal limits. Total protein of 8.3. Albumin of 2.9. UA, urine is pending. ASSESSMENT: 1. Acute renal failure, most likely prerenal azotemia. 2. Chronic kidney disease due to hypertension versus diabetic nephropathy. PLAN: Plan for the patient to obtain UA. Check the random urine protein-creatinine ratio to calculate the proteinuria. Check the urine sodium and creatinine to calculate fractional excretion of sodium. Continue current IV fluids. Replace the electrolytes as needed. At the end, I would like to thank Dr. Den Moreau for allowing me to participate in the care of this patient. Mirian Neri M.D. DR: VANITA JOB#: [id number] CC:
[2018-01-01] MEDS ORDERED: Miralax 17gm pkt ORAL SCH (21:00)
--- NOTE | 2018-01-02 14:34 | Discharge Summary ---
Discharge Summary Hospital Course Date of Admission Dec 28, 2017 at 13:47 Date of Discharge Jan 01, 2018 at 18:50 Admitting Diagnosis Surgical G-tube replacement HPI Dawson Oro is a 72 year old male who was admitted on Dec 28, 2017 at 13:47 for Surgical G Tube Replacement Hospital Course [id number] Discharge Discharge Disposition Patient was discharged to SNF/Subacute Facility(03) Celina Narvaez NP Jan 02, 2018 14:34
--- NOTE | 2018-01-03 04:00 | Discharge Summary 2 SIG ---
DATE OF ADMISSION: 12/28/2017 DATE OF DISCHARGE: 01/01/2018 CONSULTANTS: 1. Mirian Neri M.D. 2. Devon Castillo M.D. 3. Tano Dominguez M.D. 4. Naheed Espinoza M.D. 5. [place] PSYD. BRIEF HOSPITAL COURSE: The patient is a 72-year-old male from [facility], presented to [place] ER for G-tube malfunction. Apparently, G tube was dislodged and ER doctor was unable to put it back in. He is chronically ill and is ventilator dependent with tracheostomy and G-tube. On evaluation at ED, hemoglobin and hematocrit were stable. There was no leukocytosis, unable to replace the G-tube at ED. He was then admitted for GI evaluation. He underwent esophagogastroduodenoscopy with percutaneous endoscopic gastrostomy tube placement on 12/01/2017. He was then placed on abdominal binder and was eventually started on tube feedings. He underwent psychiatric evaluation. The patient was confused and disorganized, diagnosed with schizoaffective bipolar type. He was given Tegretol and Zyprexa. He had evidence of acute renal failure. Creatinine went up to 1.4. He was given IV hydration. Acute renal failure was likely prerenal. Both kidneys showed normal echogenicity with negative hydronephrosis. He was tolerating tube feeding well. He also underwent swallow evaluation and was recommended for quality of life to be placed on pureed moist and honey thick liquids with strict aspiration precaution. He was given G-tube care. He was eventually discharged back to alf. FINAL DIAGNOSES: 1. G-tube malfunction status post replacement. 2. Anemia. 3. Hypoalbuminemia. 4. Chronic respiratory failure, on trach and vent. 5. Schizoaffective disorder, bipolar type. 6. Acute renal failure, possibly prerenal. 7. Weakness. 8. Hypoalbuminemia. 9. Dysphagia, on G-tube. DISPOSITION: The patient was discharged back to [facility]. DISCHARGE INSTRUCTIONS: Elevate head of bed all the times. Keep abdominal binder. G-tube care daily. Den Moreau, D.O. I have been assigned to dictate discharge summary on this account and I was not involved in the patient's management. Celina Narvaez N.P. DR: MARCELA JOB#: [id number] CC: LUCIA
== END 2018-01-01 18:50 | DRG 393 ==
LOC: EDBD 12:14 → EMR 12:40 → EDBEDREQ 13:45 → 2W 13:47 → EDBEDREQ 16:57 → 2W 12-31 10:17 → SDSOVERFLO 12-31 19:55 → 2W 12-31 19:56
PROC: 5A1955Z Respiratory Ventilation, Greater than 96 Consecutive Hours (ICD-10-PCS; 2017-12-28)
PROC: 0DH63UZ Insertion of Feeding Device into Stomach, Percutaneous Approach (ICD-10-PCS; principal; 2017-12-31 12:12)
DX: K94.23 Gastrostomy malfunction (principal); G93.40 Encephalopathy, unspecified; J96.10 Chronic respiratory failure, unspecified whether with hypoxia or hypercapnia; N17.9 Acute kidney failure, unspecified; Y83.3 Surgical operation with formation of external stoma as the cause of abnormal reaction of the patient, or of later complication, without mention of misadventure at the time of the procedure; Z95.0 Presence of cardiac pacemaker; D64.9 Anemia, unspecified; Z43.0 Encounter for attention to tracheostomy; Z88.1 Allergy status to other antibiotic agents; Z88.8 Allergy status to other drugs, medicaments and biological substances; R13.10 Dysphagia, unspecified; G40.909 Epilepsy, unspecified, not intractable, without status epilepticus; F25.0 Schizoaffective disorder, bipolar type; I12.9 Hypertensive chronic kidney disease with stage 1 through stage 4 chronic kidney disease, or unspecified chronic kidney disease; E11.22 Type 2 diabetes mellitus with diabetic chronic kidney disease; N18.9 Chronic kidney disease, unspecified; E88.09 Other disorders of plasma-protein metabolism, not elsewhere classified
CPT/HCPCS: 36415; 36600; 76700; 80053; 80299; 82043; 82044; 82150; 82570; 82803; 82962; 83690; 83735; 84100; 84300; 85025; 85610; 85730; 87081; 89050; 93005; 94002; 94003; 94150; 99285; J1815